=== PATIENT | male | born 1940 | race Caucasian/White ===

== ENCOUNTER 2016-10-04 17:05 | Inpatient (IN) | payer MEDICARE, OTHER ==
[2016-10-04 17:11] VITALS: BMI 23.3
--- NOTE | 2016-10-04 17:34 | PDOC ---
History of Present Illness - General Chief Complaint: Wound Infection Stated Complaint: LT FOOT PAIN, necrosis wound Time Seen by Provider: 10/04/16 17:33 - History of Present Illness Initial Comments: 10/04/16 18:08 The pt is a 76 year old [place] male with a PMH of severe dementia, Alzheimer's HTN, DM type 2, HDL who presents complaining of left heel pain and wound for several weeks. He accidentally scraped off a scab 3 weeks ago and since then the wound and pain has been getting worse. The pt f/u with a motion study technician who referred him today to the hospital. The patient is severely demented, ROS is limited. History was taken from his daughter. Past History - Past Medical History Allergies/Adverse Reactions: Allergies Allergy/AdvReac Type Severity Reaction Status Date / Time No Known Allergies Allergy Verified 10/04/16 17:11 Home Medications: Ambulatory Orders Amlodipine Besylate [Norvasc -] 5 mg PO DAILY 10/04/16 Aspirin [ASA -] 81 mg PO DAILY 10/04/16 Clopidogrel Bisulfate [Plavix -] 75 mg PO DAILY 10/04/16 Cyanocobalamin (Vitamin B-12) [Vitamin B-12] 1,000 mcg PO DAILY 10/04/16 Donepezil HCl [Aricept -] 10 mg PO DAILY 10/04/16 Memantine HCl [Namenda -] 5 mg PO BID 10/04/16 Quetiapine Fumarate [Seroquel -] 25 mg PO BID 10/04/16 Quetiapine Fumarate [Seroquel -] 50 mg PO HS 10/04/16 Trazodone HCl 50 mg PO HS 10/04/16 CVA: Yes Dementia: Yes Diabetes: Yes HTN: Yes Other medical history: alzheimers,dementia - Psycho/Social/Smoking Cessation Hx Suicidal Ideation: No Smoking History: Never smoked Information on smoking cessation initiated: No Hx Alcohol Use: No Drug/Substance Use Hx: No Substance Use Type: None Review of Systems - Review of Systems Comments:: 10/04/16 17:57 REVIEW OF SYSTEMS limited, the pt is demented MUSCULOSKELETAL: pain in left heel *Physical Exam - Vital Signs Last Vital Signs Temp Pulse Resp BP Pulse Ox 110 H 18 133/80 100 10/04/16 17:10 10/04/16 17:10 10/04/16 17:10 10/04/16 17:10 - Physical Exam Comments: 10/04/16 18:03 GENERAL: The patient is awake, alert, severely demented. HEAD: Normal with no signs of trauma. EYES: PERRL, sclera anicteric, conjunctiva clear. ENT: Ears normal, nares patent, oropharynx clear without exudates, moist mucous membranes. NECK: Trachea midline, full range of motion, supple. LUNGS: Breath sounds equal, clear to auscultation bilaterally, no wheezes, no crackles, no accessory muscle use. HEART: Irregular rate and rhythm, S1, S2, systolic murmur over left sternal border, no rub or gallop. ABDOMEN: Soft, nontender, nondistended, normoactive bowel sounds, no guarding, no rebound, no hepatosplenomegaly, no masses. EXTREMITIES: 2+ pulses, warm, well-perfused, no edema, left heel swelling, erythema and black necrosis/hematoma in the middle, no draining. NEUROLOGICAL: Normal speech, gait not observed, demented. PSYCH: Normal mood, normal affect. SKIN: Warm, dry, normal turgor, no rashes or lesions noted ED Treatment Course - LABORATORY CBC & Chemistry Diagram: 10/04/16 17:50 10/04/16 17:50 Medical Decision Making - Medical Decision Making 10/04/16 18:07 The pt is a 76 year old male who presents complaining of left heel pain. We ordered adult sepsis protocol. *DC/Admit/Observation/Transfer Diagnosis at time of Disposition: Infection of left foot
[2016-10-04] MEDS ORDERED: PIPERACILLIN/TAZOB 3.375 GM/50 ML PRE-DOCKED IV ONE (17:55)
[2016-10-04] MEDS ORDERED: VANCOMYCIN 1,000 MG in DEXTROSE 5%-WATER - 250 ML IVPB ONE (18:02)
[2016-10-04] MEDS ORDERED: PIPERACILLIN/TAZOB 3.375 GM 50 ML IVPB ONE (18:16)
[2016-10-04] MEDS ORDERED: VANCOMYCIN 1 GRAM (PRE-DOCKED) 250 ML IVPB ONE (18:16)
[2016-10-04 18:45] LABS: BASOPHIL 0.4 % (0-2.0); EOSINOPHIL 1.7 % (0-4.5); MCH 30.7 pg (25.7-33.7); MCHC 33.7 g/dl (32.0-35.9); MEAN CELL VOLUME 91.2 fl (80-96); MEAN PLT VOLUME 8.9 fl (7.5-11.1); NEUTROPHILS 79.4 % (42.8-82.8); PLATELET COUNT 304 K/MM3 (134-434); RDW 14.1 % (11.9-15.9); WHITE BLOOD COUNT 11.4 K/mm3 (4.0-10.0)
--- NOTE | 2016-10-04 18:45 | PDOC ---
Attending Attestation - Resident Resident Name: Loren Ruiz - ED Attending Attestation I have performed the following: I have examined & evaluated the patient, The case was reviewed & discussed with the resident, I agree w/resident's findings & plan, Exceptions are as noted - HPI HPI: 10/04/16 18:44 76-year-old male with history of severe dementia, diabetes, hyperlipidemia, chronic left heel wound wound sent in by Dr. Angela from wound care for worsening infected left heel. The patient has been having worsening left heel wound despite aggressive wound care. Upon evaluation by the collections manager, the patient sent to the ER for further intervention by vascular and antibiotics. Patient denies any fevers. According to the daughter, the patient typically is at baseline AAO 1 secondary to his dementia. He appears to be at mental baseline. - Physicial Exam PE: 10/04/16 18:44 GENERAL: Awake, alert, and fully oriented, in no acute distress. HEAD: No signs of trauma EYES: PERRLA, EOMI, sclera anicteric, conjunctiva clear ENT: Auricles normal inspection, hearing grossly normal, nares patent, oropharynx clear without exudates. NECK: Normal ROM, supple, no lymphadenopathy, JVD, or masses LUNGS: Breath sounds equal, clear to auscultation bilaterally. No wheezes, and no crackles HEART: Regular rate and rhythm, normal S1 and S2, no murmurs, rubs or gallops ABDOMEN: Soft, nontender, normoactive bowel sounds. No guarding, no rebound. No masses EXTREMITIES: Normal range of motion, no edema. No clubbing or cyanosis. No cords, erythema, or tenderness NEUROLOGICAL: Cranial nerves II through XII grossly intact. Normal speech, normal gait. AAOx1 (baseline). SKIN: 1+ DP pulse LLE. ~4x4 cm left chronic, ecchymotic wound, with no purulence , or erythema. TTP. - Medical Decision Making 10/04/16 18:45 Patient has worsening left heel wound. Adult sepsis protocol initiated. Pt was sent in for vascular evaluation. Empiric abx. Vanc and zosyn. Admission to hospital. Heart Score/ECG Review #1 ECG reviewed & interpreted by me at: 17:40 10/04/16 18:46 NSr 96, TWI I, aVL, V5-V6, no std/john, QTC 437 msec, occasional PACs
[2016-10-04 18:55] LABS: INR 1.1 (0.82-1.09); PROTHROMBIN TIME (PATIENT) 12.1 SEC (9.98-11.88)
[2016-10-04 18:57] LABS: ACTIVATED PTT 31.3 SECONDS (26.9-34.4)
[2016-10-04 19:05] LABS: ALBUMIN 3.7 g/dl (3.4-5.0); ALK PHOS 57 U/L (45-117); ANION GAP 13 (8-16); BILIRUBIN,TOTAL 0.3 mg/dL (0.2-1.0); CALCIUM 9.6 mg/dL (8.5-10.1); CO2 24 mmol/L (21-32); CREATININE 0.9 mg/dL (0.7-1.3); GLUCOSE,RANDOM 139 mg/dL (74-106); SGOT/AST 12 U/L (15-37); SGPT/ALT 16 U/L (12-78); TOT PROT 7.2 g/dl (6.4-8.2)
--- NOTE | 2016-10-04 19:40 | PDOC ---
*Physical Exam - Vital Signs Last Vital Signs Temp Pulse Resp BP Pulse Ox 110 H 18 133/80 100 10/04/16 17:10 10/04/16 17:10 10/04/16 17:10 10/04/16 17:10 ED Treatment Course - LABORATORY CBC & Chemistry Diagram: 10/04/16 17:50 10/04/16 17:50 - ADDITIONAL ORDERS Additional order review: Laboratory Results 10/04/16 10/04/16 10/04/16 17:50 17:50 17:50 INR 1.10 PTT (Actin FS) 31.3 Sodium 139 Potassium 4.6 Chloride 102 Carbon Dioxide 24 Anion Gap 13 BUN 11 Creatinine 0.9 Creat Clearance w eGFR > 60 Random Glucose 139 H Lactic Acid 2.680 H* Calcium 9.6 Total Bilirubin 0.3 AST 12 L ALT 16 Alkaline Phosphatase 57 Total Protein 7.2 Albumin 3.7 10/04/16 17:50 RBC 3.70 L MCV 91.2 MCHC 33.7 RDW 14.1 MPV 8.9 Neutrophils % 79.4 Lymphocytes % 11.2 Monocytes % 7.3 Eosinophils % 1.7 Basophils % 0.4 - RADIOLOGY Radiology Studies Ordered: Category Date Time Status CHEST X-RAY PORTABLE* [RAD] Stat Radiology 10/04/16 18:50 Taken - Medications Given in the ED: ED Medications Discontinued Medications Generic Name Dose Route Start Last Admin Trade Name Freq PRN Reason Stop Dose Admin Vancomycin HCl 1,000 mg/ 250 mls @ 250 mls/hr 10/04/16 18:02 10/04/16 18:48 Dextrose IVPB 10/04/16 19:01 250 mls/hr ONCE ONE Administration Protocol Piperacillin Sod/Tazobactam Sod 3.375 gm 10/04/16 17:55 10/04/16 18:28 Zosyn 3.375gm Ivpb (Pre-Docked) IV 10/04/16 17:56 3.375 gm ONCE ONE Administration Protocol Medical Decision Making - Medical Decision Making 10/04/16 19:39 CBC, BMP 10/04/16 17:50 10/04/16 17:50 CMP Sodium 139 mmol/L (136-145) 10/04/16 17:50 Potassium 4.6 mmol/L (3.5-5.1) 10/04/16 17:50 Chloride 102 mmol/L (98-107) 10/04/16 17:50 Carbon Dioxide 24 mmol/L (21-32) 10/04/16 17:50 Anion Gap 13 (8-16) 10/04/16 17:50 BUN 11 mg/dL (7-18) 10/04/16 17:50 Creatinine 0.9 mg/dL (0.7-1.3) 10/04/16 17:50 Creat Clearance w eGFR > 60 (>60) 10/04/16 17:50 Random Glucose 139 mg/dL (74-106) H 10/04/16 17:50 Lactic Acid 2.680 mmol/L (0.4-2.0) H* 10/04/16 17:50 Calcium 9.6 mg/dL (8.5-10.1) 10/04/16 17:50 Total Bilirubin 0.3 mg/dL (0.2-1.0) 10/04/16 17:50 AST 12 U/L (15-37) L 10/04/16 17:50 ALT 16 U/L (12-78) 10/04/16 17:50 Alkaline Phosphatase 57 U/L (45-117) 10/04/16 17:50 Total Protein 7.2 g/dl (6.4-8.2) 10/04/16 17:50 Albumin 3.7 g/dl (3.4-5.0) 10/04/16 17:[address] Lemos. She accepts patient for med/surg admission. She requests Dr. Devan Kothari *DC/Admit/Observation/Transfer Diagnosis at time of Disposition: Infection of left foot - Discharge Dispostion Condition at time of disposition: Stable Admit: Yes - Referrals Referrals: Ian Sears MD [Primary Care Provider] - - Patient Instructions - Post Discharge Activity
[2016-10-04 21:14] LABS: URINE APPEARANCE CLOUDY; URINE BILIRUBIN NEGATIVE (NEGATIVE); URINE BLOOD NEGATIVE (NEGATIVE); URINE COLOR AMBER; URINE GLUCOSE (UA) 2+ (NEGATIVE); URINE KETONE NEGATIVE (NEGATIVE); URINE LEUK ESTERASE NEGATIVE (NEGATIVE); URINE NITRITE NEGATIVE (NEGATIVE); URINE PROTEIN NEGATIVE (NEGATIVE); URINE UROBILINOGEN NEGATIVE E.U./dl (0.2-1.0)
[2016-10-04] MEDS ORDERED: SODIUM CHLORIDE 1,000 ML IV STA (22:16)
--- NOTE | 2016-10-05 12:25 | CONSULT ---
Consult - Alcohol/Substance Use Hx Alcohol Use: No - Smoking History Smoking history: Never smoked Home Medications - Allergies Allergies/Adverse Reactions: Allergies Allergy/AdvReac Type Severity Reaction Status Date / Time No Known Allergies Allergy Verified 10/04/16 17:11 - Home Medications Home Medications: Ambulatory Orders Amlodipine Besylate [Norvasc -] 5 mg PO DAILY 10/04/16 Aspirin [ASA -] 81 mg PO DAILY 10/04/16 Clopidogrel Bisulfate [Plavix -] 75 mg PO DAILY 10/04/16 Cyanocobalamin (Vitamin B-12) [Vitamin B-12] 1,000 mcg PO DAILY 10/04/16 Donepezil HCl [Aricept -] 10 mg PO DAILY 10/04/16 Memantine HCl [Namenda -] 5 mg PO BID 10/04/16 Quetiapine Fumarate [Seroquel -] 25 mg PO BID 10/04/16 Quetiapine Fumarate [Seroquel -] 50 mg PO HS 10/04/16 Trazodone HCl 50 mg PO HS 10/04/16 Physical Exam Vital Signs: Vital Signs Temperature 98.0 F 10/04/16 23:00 Pulse Rate 80 10/04/16 23:00 Respiratory Rate 20 10/04/16 23:50 Blood Pressure 133/80 10/04/16 23:00 O2 Sat by Pulse Oximetry (%) 98 10/04/16 23:50 Assessment/Plan Vascular surgery The pt is a 76 year old [place] male with a PMH of severe dementia, Alzheimer's HTN, DM type 2, HDL who presents complaining of left heel pain and wound for several weeks. He accidentally scraped off a scab 3 weeks ago and since then the wound and pain has been getting worse. The pt f/u with a private household worker who referred him today to the hospital. The patient is severely demented, ROS is limited. History was taken from his daughter. Past History - Past Medical History Allergies/Adverse Reactions: Allergies Allergy/AdvReac Type Severity Reaction Status Date / Time No Known Allergies Allergy Verified 10/04/16 17:11 Home Medications: Ambulatory Orders Amlodipine Besylate [Norvasc -] 5 mg PO DAILY 10/04/16 Aspirin [ASA -] 81 mg PO DAILY 10/04/16 Clopidogrel Bisulfate [Plavix -] 75 mg PO DAILY 10/04/16 Cyanocobalamin (Vitamin B-12) [Vitamin B-12] 1,000 mcg PO DAILY 10/04/16 Donepezil HCl [Aricept -] 10 mg PO DAILY 10/04/16 Memantine HCl [Namenda -] 5 mg PO BID 10/04/16 Quetiapine Fumarate [Seroquel -] 25 mg PO BID 10/04/16 Quetiapine Fumarate [Seroquel -] 50 mg PO HS 10/04/16 Trazodone HCl 50 mg PO HS 10/04/16 PE Head - NC/At Lung - CTA Heart - RRR abd - soft,nt,nd Ext - warm, left lower ext unstable ulcer. 4x4cm. No palpable DP and PT pulse. A/P Left heel ulcer for over a month. Started in [place]. CTA ordered to look at runoff. Santyl to left heel daily. Devan Kothari DO
--- NOTE | 2016-10-05 13:00 | CONSULT ---
Consult Consult Specialty:: infectious diseases Referred by:: Reason for Consultation:: left foot non healing ulcer - History of Present Illness History of Present Illness: 76-year-old male with history of severe dementia, diabetes, hyperlipidemia, chronic left heel wound wound sent in by Dr. Angela from wound care for worsening infected left heel. The patient has been having worsening left heel wound despite aggressive wound care. Upon evaluation by the donor recruitment manager, the patient sent to the ER for further intervention by vascular and antibiotics. Patient denies any fevers. According to the daughter, the patient has dementia though he is pretty awake and alert patient has been evaluated by vascular - History Source History Provided By: Family Member Limitations to Obtaining History: Dementia - Alcohol/Substance Use Hx Alcohol Use: No - Smoking History Smoking history: Never smoked Home Medications - Allergies Allergies/Adverse Reactions: Allergies Allergy/AdvReac Type Severity Reaction Status Date / Time No Known Allergies Allergy Verified 10/04/16 17:11 - Home Medications Home Medications: Ambulatory Orders Amlodipine Besylate [Norvasc -] 5 mg PO DAILY 10/04/16 Aspirin [ASA -] 81 mg PO DAILY 10/04/16 Clopidogrel Bisulfate [Plavix -] 75 mg PO DAILY 10/04/16 Cyanocobalamin (Vitamin B-12) [Vitamin B-12] 1,000 mcg PO DAILY 10/04/16 Donepezil HCl [Aricept -] 10 mg PO DAILY 10/04/16 Memantine HCl [Namenda -] 5 mg PO BID 10/04/16 Quetiapine Fumarate [Seroquel -] 25 mg PO BID 10/04/16 Quetiapine Fumarate [Seroquel -] 50 mg PO HS 10/04/16 Trazodone HCl 50 mg PO HS 10/04/16 Review of Systems - Review of Systems Constitutional: reports: No Symptoms Eyes: reports: No Symptoms HENT: reports: No Symptoms Neck: reports: No Symptoms Cardiovascular: reports: No Symptoms Respiratory: reports: No Symptoms Gastrointestinal: reports: No Symptoms Genitourinary: reports: No Symptoms Musculoskeletal: reports: Other Integumentary: reports: Change in Color, Erythema Neurological: reports: No Symptoms Endocrine: reports: No Symptoms Hematology/Lymphatic: reports: No Symptoms Psychiatric: reports: No Symptoms Physical Exam Vital Signs: Vital Signs Temperature 98.0 F 10/04/16 23:00 Pulse Rate 80 10/04/16 23:00 Respiratory Rate 20 10/04/16 23:50 Blood Pressure 133/80 10/04/16 23:00 O2 Sat by Pulse Oximetry (%) 98 10/04/16 23:50 Constitutional: Yes: Well Nourished, No Distress, Calm Eyes: Yes: Conjunctiva Clear HENT: Yes: Atraumatic Cardiovascular: Yes: Regular Rate and Rhythm Respiratory: Yes: Regular, CTA Bilaterally Gastrointestinal: Yes: Normal Bowel Sounds, Soft Musculoskeletal: Yes: Muscle Pain Extremities: Yes: Other (+) Integumentary: Yes: Erythema (on the heel), Other Wound/Incision: Yes: Open to air, Other Imaging - Results Chest X-ray: Report Reviewed, Image Reviewed Assessment/Plan patient with no palpable pulses non healing Left heel ulcer for over a month. DM dementia cellulitis of the heel plan aldo start on abx rest as per vascular cta runoff to see flow
[2016-10-05] MEDS: COLLAGENASE CLOSTRIDIUM HIST. 30 GRAMS TUBE TP SCH (14:28)
[2016-10-05] MEDS: AMPICILLIN NA/SULBACTAM NA 3 GM in SODIUM CHLORIDE 100 ML IVPB SCH ×2 (14:29→18:48)
[2016-10-05] MEDS: CLINDAMYCIN HCL 150 MG CAPSULE (FP) PO SCH ×2 (17:32→23:38)
--- NOTE | 2016-10-05 18:30 | EKG ---
Test Reason : Blood Pressure : / mmHG Vent. Rate : 096 BPM Atrial Rate : 096 BPM P-R Int : 188 ms QRS Dur : 082 ms QT Int : 346 ms P-R-T Axes : 052 008 150 degrees QTc Int : 437 ms SINUS RHYTHM WITH PREMATURE ATRIAL COMPLEXES ABNORMAL ECG NO PREVIOUS ECGS AVAILABLE Confirmed by LISA REYES, NONA ([id number]) on 10/05/2016 6:30:02 PM Referred By: Confirmed By:NONA GONZALEZ MD
[2016-10-05] MEDS ORDERED: PT OWN MED DRAWER 7, Y5N ONE (18:46)
[2016-10-05] MEDS: traZODone HCL 50 MG TABLET (FP) PO SCH (21:26)
[2016-10-05] MEDS: HEPARIN NA (PORCINE) 5,000 UNITS/ML 1ML VIAL SQ SCH (21:26)
[2016-10-05] MEDS: MEMANTINE HCL 5 MG TABLET (UD) PO SCH (21:26)
[2016-10-05] MEDS ORDERED: QUEtiapine FUMARATE 25 MG TABLET (FP) PO SCH (22:00)
--- NOTE | 2016-10-05 23:20 | HP ---
Admitting History and Physical - Admission Chief Complaint: Lt foot ulcer History of Present Illness: Pt is a 76 y/o male who is a poor historian and unable to give a history due to his dementia. He has a PMH significant for dementia, HTN, HLD, diabetes, CAD and chronic lt heel ulcer. Pt has been seeing his mangle tender for at least 3 weeks for his lt heel ulcer who now felt pt needed to be hospitalized for further management and treatment. Pt was found to be afebrile w/ a normal WBC. History Source: Medical Record Limitations to Obtaining History: Dementia - Past Medical History PUPPY WALKER: Yes: Alzheimer's, Dementia Cardiovascular: Yes: HTN, Hyperlipdemia Endocrine: Yes: Diabetes Mellitus - Past Surgical History Past Surgical History: Yes: None - Smoking History Smoking history: Never smoked - Alcohol/Substance Use Hx Alcohol Use: No Home Medications - Allergies Allergies/Adverse Reactions: Allergies Allergy/AdvReac Type Severity Reaction Status Date / Time No Known Allergies Allergy Verified 10/04/16 17:11 - Home Medications Home Medications: Ambulatory Orders Amlodipine Besylate [Norvasc -] 5 mg PO DAILY 10/04/16 Aspirin [ASA -] 81 mg PO DAILY 10/04/16 Clopidogrel Bisulfate [Plavix -] 75 mg PO DAILY 10/04/16 Cyanocobalamin (Vitamin B-12) [Vitamin B-12] 1,000 mcg PO DAILY 10/04/16 Donepezil HCl [Aricept -] 10 mg PO DAILY 10/04/16 Memantine HCl [Namenda -] 5 mg PO BID 10/04/16 Quetiapine Fumarate [Seroquel -] 25 mg PO BID 10/04/16 Quetiapine Fumarate [Seroquel -] 50 mg PO HS 10/04/16 Trazodone HCl 50 mg PO HS 10/04/16 Family Disease History - Family Disease History Family History: Unable to Obtain Review of Systems Unable to obtain ROS, reason: Unable to obtain due to Physical Examination Vital Signs: Vital Signs Temperature 97.7 F 10/05/16 18:00 Pulse Rate 94 H 10/05/16 21:16 Respiratory Rate 20 10/05/16 21:16 Blood Pressure 151/97 10/05/16 21:16 O2 Sat by Pulse Oximetry (%) 98 10/05/16 09:00 Constitutional: Yes: No Distress Eyes: Yes: WNL HENT: Yes: WNL Neck: Yes: Supple Cardiovascular: Yes: WNL, Regular Rate and Rhythm Respiratory: Yes: WNL, Regular, CTA Bilaterally Gastrointestinal: Yes: WNL, Normal Bowel Sounds, Soft Extremities: Yes: Other ((+) lt foot heel ulcer) Neurological: Yes: WNL, Other (disorientated) ...Motor Strength: WNL Problem List - Problems (1) Infection of left foot Assessment/Plan: Cont IV antibxs Vasc/ID /podiatry consults Wound care Code(s): L08.9 - LOCAL INFECTION OF THE SKIN AND SUBCUTANEOUS TISSUE, UNSP (2) Dementia Assessment/Plan: Cont namenda/aricept/seroquel Psych consult Code(s): F03.90 - UNSPECIFIED DEMENTIA WITHOUT BEHAVIORAL DISTURBANCE Qualifiers: Dementia type: unspecified type Dementia behavioral disturbance: without behavioral disturbance Qualified Code(s): F03.90 - Unspecified dementia without behavioral disturbance
[2016-10-05] MEDS ORDERED: ACETAMINOPHEN 325 MG TABLET (FP) PO PRN (23:33)
[2016-10-05] MEDS: QUEtiapine FUMARATE 25 MG TABLET (FP) PO SCH (23:39)
[2016-10-06] MEDS: AMPICILLIN NA/SULBACTAM NA 3 GM in SODIUM CHLORIDE 100 ML IVPB SCH ×3 (01:01→17:42)
[2016-10-06] MEDS ORDERED: ALPRAZolam 0.25 MG TABLET PO ONE (02:00)
[2016-10-06] MEDS ORDERED: QUEtiapine FUMARATE 25 MG TABLET (FP) PO ONE (03:30)
[2016-10-06] MEDS: CLINDAMYCIN HCL 150 MG CAPSULE (FP) PO SCH ×4 (06:52→23:37)
[2016-10-06 07:35] LABS: BASOPHIL 0.4 % (0-2.0); EOSINOPHIL 1.1 % (0-4.5); MCH 30.6 pg (25.7-33.7); MCHC 33.5 g/dl (32.0-35.9); MEAN CELL VOLUME 91.3 fl (80-96); MEAN PLT VOLUME 8.3 fl (7.5-11.1); PLATELET COUNT 304 K/MM3 (134-434); RDW 13.6 % (11.9-15.9); WHITE BLOOD COUNT 11.8 K/mm3 (4.0-10.0)
[2016-10-06 07:56] LABS: ALBUMIN 3.7 g/dl (3.4-5.0); ANION GAP 10 (8-16); BILIRUBIN,TOTAL 0.5 mg/dL (0.2-1.0); CALCIUM 9.2 mg/dL (8.5-10.1); CO2 28 mmol/L (21-32); GLUCOSE,RANDOM 104 mg/dL (74-106); SGOT/AST 9 U/L (15-37); SGPT/ALT 14 U/L (12-78); TOT PROT 7.4 g/dl (6.4-8.2)
[2016-10-06 07:57] LABS: ALK PHOS 59 U/L (45-117)
[2016-10-06] MEDS ORDERED: PT OWN MED DRAWER 7, Y5N ONE ×2 (10:12→17:36)
[2016-10-06] MEDS: CYANOCOBALAMIN 1,000 MCG TABLET (FP) PO SCH (10:14)
[2016-10-06] MEDS: MEMANTINE HCL 5 MG TABLET (UD) PO SCH ×2 (10:14→21:57)
[2016-10-06] MEDS: amLODIPine BESYLATE 5 MG TABLET (FP) PO SCH (10:14)
[2016-10-06] MEDS: QUEtiapine FUMARATE 25 MG TABLET (FP) PO SCH ×2 (10:14→21:57)
[2016-10-06] MEDS: DONEPEZIL HCL 10 MG TABLET (FP) PO SCH (10:14)
[2016-10-06] MEDS: CLOPIDOGREL BISULFATE 75 MG TABLET (FP) PO SCH (10:14)
[2016-10-06] MEDS: HEPARIN NA (PORCINE) 5,000 UNITS/ML 1ML VIAL SQ SCH ×2 (10:15→21:57)
[2016-10-06] MEDS: COLLAGENASE CLOSTRIDIUM HIST. 30 GRAMS TUBE TP SCH (10:15)
[2016-10-06] MEDS: ASPIRIN 81 MG CHEWABLE TABLETS PO SCH (10:15)
--- NOTE | 2016-10-06 13:21 | PN ---
Progress Note, Physician History of Present Illness: patient doing well no new issues patient received ct angio - Current Medication List Current Medications: Active Medications Acetaminophen (Tylenol -) 650 mg PO Q6H PRN PRN Reason: PAIN Amlodipine Besylate (Norvasc -) 5 mg PO DAILY [facility] Last Admin: 10/06/16 10:14 Dose: 5 mg Aspirin (Asa -) 81 mg PO DAILY [facility] Last Admin: 10/06/16 10:15 Dose: 81 mg Clindamycin HCl (Cleocin -) 300 mg PO Q6HPO [facility] Last Admin: 10/06/16 12:07 Dose: 300 mg Clopidogrel Bisulfate (Plavix -) 75 mg PO DAILY [facility] Last Admin: 10/06/16 10:14 Dose: 75 mg Collagenase (Santyl -) 1 applic TP DAILY [facility] Last Admin: 10/06/16 10:15 Dose: 1 applic Cyanocobalamin (Vitamin B12 -) 1,000 mcg PO DAILY [facility] Last Admin: 10/06/16 10:14 Dose: 1,000 mcg Donepezil HCl (Aricept -) 10 mg PO DAILY [facility] Last Admin: 10/06/16 10:14 Dose: 10 mg Heparin Sodium (Porcine) (Heparin -) 5,000 unit SQ BID [facility] Last Admin: 10/06/16 10:15 Dose: 5,000 unit Ampicillin Sodium/Sulbactam (Sodium 3 gm/ Sodium Chloride) 100 mls @ 200 mls/ hr IVPB Q8H-IV [facility] Last Admin: 10/06/16 10:15 Dose: 200 mls/hr Memantine (Namenda -) 5 mg PO BID [facility] Last Admin: 10/06/16 10:14 Dose: 5 mg Quetiapine Fumarate (Seroquel -) 50 mg PO HS [facility] Last Admin: 10/05/16 23:39 Dose: 25 mg Quetiapine Fumarate (Seroquel -) 25 mg PO DAILY [facility] Last Admin: 10/06/16 10:14 Dose: 25 mg Trazodone HCl (Desyrel -) 50 mg PO HS [facility] Last Admin: 10/05/16 21:26 Dose: 50 mg - Objective Vital Signs: Vital Signs Temperature 98.9 F 10/06/16 06:00 Pulse Rate 84 10/06/16 06:00 Respiratory Rate 20 10/06/16 06:00 Blood Pressure 141/71 10/06/16 06:00 O2 Sat by Pulse Oximetry (%) 98 10/05/16 21:00 Constitutional: Yes: No Distress, Calm Cardiovascular: Yes: Regular Rate and Rhythm Respiratory: Yes: Regular, CTA Bilaterally Gastrointestinal: Yes: Normal Bowel Sounds, Soft Musculoskeletal: Yes: Other Extremities: Yes: Other (non healing ulcer of the heel) Integumentary: Yes: Erythema (heel) Wound/Incision: Yes: Clean/Dry Neurological: Yes: Alert, Other (dementia) Psychiatric: Yes: Alert, Other Labs: CBC, BMP 10/06/16 06:15 10/06/16 06:15 INR, PTT INR 1.10 (0.82-1.09) 10/04/16 17:50 - ....Imaging Cat Scan: Image Reviewed Assessment/Plan patient with no palpable pulses non healing Left heel ulcer for over a month. DM dementia cellulitis of the heel plan continue current abx await for imaging result official vascular on case rest as per the team
--- NOTE | 2016-10-06 17:32 | PN ---
Mental Health Exam - Mental Status Exam Cognitive Function: Impaired Patient Appearance: Well Groomed Mood: Hopeful, Happy (smiling) Affect: Mood Congruent Patient Behavior: Talkative, Cooperative Speech Pattern: Rambling ("how much are you going to be paid"), Tangential ( stays off topic. ) Voice Loudness: Mildly Soft/Quiet Thought Process: Tangential, Disoriented Thought Disorder: Not Present Hallucinations: Denies Suicidal Ideation: Denies Homicidal Ideation: Denies Insight/Judgement: Impaired (unabe to make descisions, daughter is proxy. ) Sleep: Fair (last pm became anxious during night. ) Appetite: Weight loss (per daughter report) Muscle strength/Tone: Normal
--- NOTE | 2016-10-06 17:38 | PN ---
Progress Note, Physician Chief Complaint: "You are a nice man, how much to pay you" History of Present Illness: Patient is 76 yo honduran speaking male sitting up but poor posture slump in a chair, but able to ambuate with assistance. Daughter Quique was in attendance during interview. Recently moved here from after family stated he is becoming more confused, unable to care for self, has dementia for over 7 years that is deteriorating of late. His family are his caretakers. - Current Medication List Current Medications: Active Medications Acetaminophen (Tylenol -) 650 mg PO Q6H PRN PRN Reason: PAIN Amlodipine Besylate (Norvasc -) 5 mg PO DAILY [facility] Last Admin: 10/06/16 10:14 Dose: 5 mg Aspirin (Asa -) 81 mg PO DAILY [facility] Last Admin: 10/06/16 10:15 Dose: 81 mg Clindamycin HCl (Cleocin -) 300 mg PO Q6HPO [facility] Last Admin: 10/06/16 12:07 Dose: 300 mg Clopidogrel Bisulfate (Plavix -) 75 mg PO DAILY [facility] Last Admin: 10/06/16 10:14 Dose: 75 mg Collagenase (Santyl -) 1 applic TP DAILY [facility] Last Admin: 10/06/16 10:15 Dose: 1 applic Cyanocobalamin (Vitamin B12 -) 1,000 mcg PO DAILY [facility] Last Admin: 10/06/16 10:14 Dose: 1,000 mcg Donepezil HCl (Aricept -) 10 mg PO DAILY [facility] Last Admin: 10/06/16 10:14 Dose: 10 mg Heparin Sodium (Porcine) (Heparin -) 5,000 unit SQ BID [facility] Last Admin: 10/06/16 10:15 Dose: 5,000 unit Ampicillin Sodium/Sulbactam (Sodium 3 gm/ Sodium Chloride) 100 mls @ 200 mls/ hr IVPB Q8H-IV [facility] Last Admin: 10/06/16 10:15 Dose: 200 mls/hr Memantine (Namenda -) 5 mg PO BID [facility] Last Admin: 10/06/16 10:14 Dose: 5 mg Quetiapine Fumarate (Seroquel -) 50 mg PO HS [facility] Last Admin: 10/05/16 23:39 Dose: 25 mg Quetiapine Fumarate (Seroquel -) 25 mg PO DAILY [facility] Last Admin: 10/06/16 10:14 Dose: 25 mg Trazodone HCl (Desyrel -) 50 mg PO HS [facility] Last Admin: 10/05/16 21:26 Dose: 50 mg - Objective Vital Signs: Vital Signs Temperature 98.2 F 10/06/16 17:22 Pulse Rate 88 10/06/16 17:22 Respiratory Rate 20 10/06/16 17:22 Blood Pressure 128/82 10/06/16 17:22 O2 Sat by Pulse Oximetry (%) 97 10/06/16 09:00 Labs: CBC, BMP 10/06/16 06:15 10/06/16 06:15 INR, PTT INR 1.10 (0.82-1.09) 10/04/16 17:50 Problem List - Problems (1) Dementia Code(s): F03.90 - UNSPECIFIED DEMENTIA WITHOUT BEHAVIORAL DISTURBANCE Qualifiers: Dementia type: unspecified type Dementia behavioral disturbance: without behavioral disturbance Qualified Code(s): F03.90 - Unspecified dementia without behavioral disturbance Assessment/Plan Client is treated with Aricept 10mg po daily, namenda 5mg po bid. He also recieved seroquel 100mg a day, 50 mg at night and 25 mg po bid. As with other antipsychotics, seroquel used with caution in elderly, and its efficency and safety has not been evaluated in patients over 65. Recommend taper seroquel slowly from current doses, unclear if he has depression or bipolar history, observe for behaviour change. reduce to 25 mg in am prn and 25 po at night (if given for insomnia or agitation ). Daily dosew may account for somnolence noted today.
[2016-10-06] MEDS: traZODone HCL 50 MG TABLET (FP) PO SCH (21:57)
--- NOTE | 2016-10-06 22:46 | PN ---
Progress Note, Physician History of Present Illness: Pt w/ agitation - Current Medication List Current Medications: Active Medications Acetaminophen (Tylenol -) 650 mg PO Q6H PRN PRN Reason: PAIN Amlodipine Besylate (Norvasc -) 5 mg PO DAILY [facility] Last Admin: 10/06/16 10:14 Dose: 5 mg Aspirin (Asa -) 81 mg PO DAILY [facility] Last Admin: 10/06/16 10:15 Dose: 81 mg Clindamycin HCl (Cleocin -) 300 mg PO Q6HPO [facility] Last Admin: 10/06/16 17:42 Dose: 300 mg Clopidogrel Bisulfate (Plavix -) 75 mg PO DAILY [facility] Last Admin: 10/06/16 10:14 Dose: 75 mg Collagenase (Santyl -) 1 applic TP DAILY [facility] Last Admin: 10/06/16 10:15 Dose: 1 applic Cyanocobalamin (Vitamin B12 -) 1,000 mcg PO DAILY [facility] Last Admin: 10/06/16 10:14 Dose: 1,000 mcg Donepezil HCl (Aricept -) 10 mg PO DAILY [facility] Last Admin: 10/06/16 10:14 Dose: 10 mg Heparin Sodium (Porcine) (Heparin -) 5,000 unit SQ BID [facility] Last Admin: 10/06/16 21:57 Dose: 5,000 unit Ampicillin Sodium/Sulbactam (Sodium 3 gm/ Sodium Chloride) 100 mls @ 200 mls/ hr IVPB Q8H-IV [facility] Last Admin: 10/06/16 17:42 Dose: 200 mls/hr Memantine (Namenda -) 5 mg PO BID [facility] Last Admin: 10/06/16 21:57 Dose: 5 mg Quetiapine Fumarate (Seroquel -) 50 mg PO HS [facility] Last Admin: 10/06/16 21:57 Dose: 50 mg Quetiapine Fumarate (Seroquel -) 25 mg PO DAILY [facility] Last Admin: 10/06/16 10:14 Dose: 25 mg Trazodone HCl (Desyrel -) 50 mg PO HS [facility] Last Admin: 10/06/16 21:57 Dose: 50 mg - Objective Vital Signs: Vital Signs Temperature 98.2 F 10/06/16 18:36 Pulse Rate 88 10/06/16 18:36 Respiratory Rate 20 10/06/16 18:36 Blood Pressure 128/82 03/26/17 18:36 O2 Sat by Pulse Oximetry (%) 97 10/06/16 09:00 Constitutional: Yes: No Distress HENT: Yes: WNL Neck: Yes: WNL, Supple Cardiovascular: Yes: WNL, Regular Rate and Rhythm Respiratory: Yes: WNL, Regular, CTA Bilaterally Gastrointestinal: Yes: WNL, Normal Bowel Sounds, Soft Extremities: Yes: Other (Lt heel ulcer) Labs: CBC, BMP 10/06/16 06:15 10/06/16 06:15 INR, PTT INR 1.10 (0.82-1.09) 10/04/16 17:50 Problem List - Problems (1) Infection of left foot Assessment/Plan: Cont PO clinda Follow BC Vasc/ID /podiatry consults Wound care vascular studies pending Code(s): L08.9 - LOCAL INFECTION OF THE SKIN AND SUBCUTANEOUS TISSUE, UNSP (2) Dementia Assessment/Plan: Cont namenda/aricept/seroquel Psych consult Code(s): F03.90 - UNSPECIFIED DEMENTIA WITHOUT BEHAVIORAL DISTURBANCE Qualifiers: Dementia type: unspecified type Dementia behavioral disturbance: without behavioral disturbance Qualified Code(s): F03.90 - Unspecified dementia without behavioral disturbance (3) HTN (hypertension) Assessment/Plan: BP stable Cont asa/norvasc Code(s): I10 - ESSENTIAL (PRIMARY) HYPERTENSION (4) CAD (coronary artery disease) Assessment/Plan: Cont plavix Code(s): I25.10 - ATHSCL HEART DISEASE OF [place] CORONARY ARTERY W/O ANG PCTRS
[2016-10-07] MEDS: AMPICILLIN NA/SULBACTAM NA 3 GM in SODIUM CHLORIDE 100 ML IVPB SCH ×5 (03:00→20:25)
[2016-10-07] MEDS: CLINDAMYCIN HCL 150 MG CAPSULE (FP) PO SCH ×3 (06:35→18:37)
[2016-10-07 08:22] LABS: BASOPHIL 0.5 % (0-2.0); EOSINOPHIL 2.1 % (0-4.5); MCH 30.7 pg (25.7-33.7); MCHC 34.1 g/dl (32.0-35.9); MEAN CELL VOLUME 90.1 fl (80-96); MEAN PLT VOLUME 8.5 fl (7.5-11.1); NEUTROPHILS 68.5 % (42.8-82.8); PLATELET COUNT 276 K/MM3 (134-434); RDW 13.6 % (11.9-15.9); WHITE BLOOD COUNT 10.1 K/mm3 (4.0-10.0)
[2016-10-07 08:33] LABS: ALBUMIN 3.2 g/dl (3.4-5.0); ANION GAP 9 (8-16); CALCIUM 8.9 mg/dL (8.5-10.1); CO2 28 mmol/L (21-32); SGOT/AST 51 U/L (15-37); SGPT/ALT 18 U/L (12-78)
[2016-10-07 08:37] LABS: ALK PHOS 54 U/L (45-117); BILIRUBIN,TOTAL 0.5 mg/dL (0.2-1.0); CREATININE 0.8 mg/dL (0.7-1.3); GLUCOSE,RANDOM 130 mg/dL (74-106); TOT PROT 6.6 g/dl (6.4-8.2)
--- NOTE | 2016-10-07 09:13 | PN ---
Progress Note (short form) - Note Progress Note: Vascular Surgery CTA reviewed Left heel ulcer for over a month. Pt has significant tibial disease on CTA Will do angiogram james am. NPO past midnight Devan Kothari DO
[2016-10-07] MEDS ORDERED: PT OWN MED DRAWER 7, Y5N ONE ×2 (10:41→16:30)
[2016-10-07] MEDS: CLOPIDOGREL BISULFATE 75 MG TABLET (FP) PO SCH (10:42)
[2016-10-07] MEDS: DONEPEZIL HCL 10 MG TABLET (FP) PO SCH (10:42)
[2016-10-07] MEDS: CYANOCOBALAMIN 1,000 MCG TABLET (FP) PO SCH (10:42)
[2016-10-07] MEDS: amLODIPine BESYLATE 5 MG TABLET (FP) PO SCH (10:42)
[2016-10-07] MEDS: MEMANTINE HCL 5 MG TABLET (UD) PO SCH ×2 (10:42→22:13)
[2016-10-07] MEDS: QUEtiapine FUMARATE 25 MG TABLET (FP) PO SCH ×2 (10:43→22:13)
[2016-10-07] MEDS: ASPIRIN 81 MG CHEWABLE TABLETS PO SCH (10:43)
[2016-10-07] MEDS: HEPARIN NA (PORCINE) 5,000 UNITS/ML 1ML VIAL SQ SCH ×2 (11:00→22:14)
--- NOTE | 2016-10-07 13:23 | PN ---
Progress Note, Physician History of Present Illness: patient doing well no new issues patient for surgery tomorrow - Current Medication List Current Medications: Active Medications Acetaminophen (Tylenol -) 650 mg PO Q6H PRN PRN Reason: PAIN Amlodipine Besylate (Norvasc -) 5 mg PO DAILY [facility] Last Admin: 10/07/16 10:42 Dose: 5 mg Aspirin (Asa -) 81 mg PO DAILY [facility] Last Admin: 10/07/16 10:43 Dose: 81 mg Clindamycin HCl (Cleocin -) 300 mg PO Q6HPO [facility] Last Admin: 10/07/16 12:10 Dose: 300 mg Clopidogrel Bisulfate (Plavix -) 75 mg PO DAILY [facility] Last Admin: 10/07/16 10:42 Dose: 75 mg Collagenase (Santyl -) 1 applic TP DAILY [facility] Last Admin: 10/06/16 10:15 Dose: 1 applic Cyanocobalamin (Vitamin B12 -) 1,000 mcg PO DAILY [facility] Last Admin: 10/07/16 10:42 Dose: 1,000 mcg Donepezil HCl (Aricept -) 10 mg PO DAILY [facility] Last Admin: 10/07/16 10:42 Dose: 10 mg Heparin Sodium (Porcine) (Heparin -) 5,000 unit SQ BID [facility] Last Admin: 10/07/16 11:00 Dose: 5,000 unit Ampicillin Sodium/Sulbactam (Sodium 3 gm/ Sodium Chloride) 100 mls @ 200 mls/ hr IVPB Q8H-IV [facility] Last Admin: 10/07/16 10:43 Dose: 200 mls/hr Memantine (Namenda -) 5 mg PO BID [facility] Last Admin: 10/07/16 10:42 Dose: 5 mg Quetiapine Fumarate (Seroquel -) 50 mg PO HS [facility] Last Admin: 10/06/16 21:57 Dose: 50 mg Quetiapine Fumarate (Seroquel -) 25 mg PO DAILY [facility] Last Admin: 10/07/16 10:43 Dose: 25 mg Trazodone HCl (Desyrel -) 50 mg PO HS [facility] Last Admin: 10/06/16 21:57 Dose: 50 mg - Objective Vital Signs: Vital Signs Temperature 97.4 F L 10/07/16 10:36 Pulse Rate 91 H 10/07/16 10:36 Respiratory Rate 20 10/07/16 10:36 Blood Pressure 136/64 10/07/16 10:36 O2 Sat by Pulse Oximetry (%) 94 L 10/06/16 21:00 Constitutional: Yes: No Distress, Calm Cardiovascular: Yes: Regular Rate and Rhythm Respiratory: Yes: Regular, CTA Bilaterally Gastrointestinal: Yes: Normal Bowel Sounds, Soft Musculoskeletal: Yes: Other Extremities: Yes: Other Wound/Incision: Yes: Other (non healing ulcer of the leg) Neurological: Yes: Alert, Oriented Psychiatric: Yes: Alert Labs: CBC, BMP 10/07/16 06:30 10/07/16 06:30 INR, PTT INR 1.10 (0.82-1.09) 10/04/16 17:50 Assessment/Plan patient with no palpable pulses non healing Left heel ulcer for over a month. DM dementia cellulitis of the heel patient with significant vessel disease plan continue current abx patient for angioplasty tomorrow continue abx once angio is done will plan further
[2016-10-07] MEDS: COLLAGENASE CLOSTRIDIUM HIST. 30 GRAMS TUBE TP SCH (17:16)
[2016-10-07] MEDS: traZODone HCL 50 MG TABLET (FP) PO SCH (22:13)
--- NOTE | 2016-10-07 23:32 | PN ---
Progress Note, Physician - Current Medication List Current Medications: Active Medications Acetaminophen (Tylenol -) 650 mg PO Q6H PRN PRN Reason: PAIN Last Admin: 10/07/16 17:15 Dose: 650 mg Amlodipine Besylate (Norvasc -) 5 mg PO DAILY [facility] Last Admin: 10/07/16 10:42 Dose: 5 mg Aspirin (Asa -) 81 mg PO DAILY [facility] Last Admin: 10/07/16 10:43 Dose: 81 mg Clindamycin HCl (Cleocin -) 300 mg PO Q6HPO [facility] Last Admin: 10/07/16 18:37 Dose: 300 mg Clopidogrel Bisulfate (Plavix -) 75 mg PO DAILY [facility] Last Admin: 10/07/16 10:42 Dose: 75 mg Collagenase (Santyl -) 1 applic TP DAILY [facility] Last Admin: 10/07/16 17:16 Dose: 1 applic Cyanocobalamin (Vitamin B12 -) 1,000 mcg PO DAILY [facility] Last Admin: 10/07/16 10:42 Dose: 1,000 mcg Donepezil HCl (Aricept -) 10 mg PO DAILY [facility] Last Admin: 10/07/16 10:42 Dose: 10 mg Heparin Sodium (Porcine) (Heparin -) 5,000 unit SQ BID [facility] Last Admin: 10/07/16 22:14 Dose: 5,000 unit Ampicillin Sodium/Sulbactam (Sodium 3 gm/ Sodium Chloride) 100 mls @ 200 mls/ hr IVPB Q8H-IV [facility] Last Admin: 10/07/16 20:25 Dose: 200 mls/hr Memantine (Namenda -) 5 mg PO BID [facility] Last Admin: 10/07/16 22:13 Dose: 5 mg Quetiapine Fumarate (Seroquel -) 50 mg PO HS [facility] Last Admin: 10/07/16 22:13 Dose: 50 mg Quetiapine Fumarate (Seroquel -) 25 mg PO DAILY [facility] Last Admin: 10/07/16 10:43 Dose: 25 mg Trazodone HCl (Desyrel -) 50 mg PO HS [facility] Last Admin: 10/07/16 22:13 Dose: 50 mg - Objective Vital Signs: Vital Signs Temperature 98.7 F 10/07/16 18:05 Pulse Rate 86 10/07/16 18:05 Respiratory Rate 20 10/07/16 18:05 Blood Pressure 105/51 10/07/16 18:05 O2 Sat by Pulse Oximetry (%) 94 L 10/07/16 11:00 Labs: CBC, BMP 10/07/16 06:30 10/07/16 06:30 INR, PTT INR 1.10 (0.82-1.09) 10/04/16 17:50 Problem List - Problems (1) Infection of left foot Code(s): L08.9 - LOCAL INFECTION OF THE SKIN AND SUBCUTANEOUS TISSUE, UNSP (2) Dementia Code(s): F03.90 - UNSPECIFIED DEMENTIA WITHOUT BEHAVIORAL DISTURBANCE Qualifiers: Dementia type: unspecified type Dementia behavioral disturbance: without behavioral disturbance Qualified Code(s): F03.90 - Unspecified dementia without behavioral disturbance (3) HTN (hypertension) Code(s): I10 - ESSENTIAL (PRIMARY) HYPERTENSION (4) CAD (coronary artery disease) Code(s): I25.10 - ATHSCL HEART DISEASE OF [place] CORONARY ARTERY W/O ANG PCTRS
[2016-10-08] MEDS: CLINDAMYCIN HCL 150 MG CAPSULE (FP) PO SCH ×5 (00:06→23:57)
[2016-10-08] MEDS: AMPICILLIN NA/SULBACTAM NA 3 GM in SODIUM CHLORIDE 100 ML IVPB SCH ×5 (02:07→21:24)
[2016-10-08] MEDS ORDERED: HEPARIN NA (PORCINE) 5,000 UNITS/ML 1ML VIAL ONE (09:44)
[2016-10-08] MEDS ORDERED: LIDOCAINE HCL 1%, 10 MG/ML (20ML VIAL) ONE (09:44)
[2016-10-08] MEDS: ASPIRIN 81 MG CHEWABLE TABLETS PO SCH (10:04)
[2016-10-08] MEDS: DONEPEZIL HCL 10 MG TABLET (FP) PO SCH (10:04)
[2016-10-08] MEDS: amLODIPine BESYLATE 5 MG TABLET (FP) PO SCH (10:05)
[2016-10-08] MEDS: CLOPIDOGREL BISULFATE 75 MG TABLET (FP) PO SCH (10:05)
[2016-10-08] MEDS: HEPARIN NA (PORCINE) 5,000 UNITS/ML 1ML VIAL SQ SCH ×2 (10:05→22:25)
[2016-10-08] MEDS: COLLAGENASE CLOSTRIDIUM HIST. 30 GRAMS TUBE TP SCH (10:05)
[2016-10-08] MEDS: MEMANTINE HCL 5 MG TABLET (UD) PO SCH ×2 (10:05→22:24)
[2016-10-08] MEDS: QUEtiapine FUMARATE 25 MG TABLET (FP) PO SCH ×2 (10:06→22:24)
[2016-10-08] MEDS: CYANOCOBALAMIN 1,000 MCG TABLET (FP) PO SCH (10:06)
[2016-10-08] MEDS ORDERED: PROPOFOL 20 ML ONE (10:14)
[2016-10-08] MEDS ORDERED: MIDAZOLAM HCL 2 MG/2 ML SINGLE DOSE VIAL ONE ×3 (10:14→11:06)
[2016-10-08] MEDS ORDERED: ceFAZolin SODIUM 1 GM VIAL IVPB ONE (10:16)
[2016-10-08] MEDS ORDERED: LIDOCAINE HCL 1%, 10 MG/ML (20ML VIAL) IJ ONE (10:28)
[2016-10-08] MEDS ORDERED: ONDANSETRON 4 MG/2 ML VIAL IVPUSH PRN ×2 (12:09→12:42)
[2016-10-08] MEDS ORDERED: PROMETHAZINE HCL 25 MG/1 ML VIAL IVPUSH PRN ×2 (12:09→12:42)
[2016-10-08] MEDS ORDERED: oxyCODONE HCL 5 MG TABLET PO PRN ×2 (12:09→12:42)
--- NOTE | 2016-10-08 12:37 | OP ---
Operative Note - Note: Operative Date: 10/08/16 Pre-Operative Diagnosis: Left heel ulcer Operation: Aortogram, LLE angiogram, tibial artery atherectomy with angioplasty Findings: No PT runoff. DP occluded at origin. Reconstitutes in foot Peroneal artery with mutiple lesions. Post-Operative Diagnosis: Same as Pre-op Surgeon: Devan Kothari Anesthesia: Fractional Estimated Blood Loss (mls): 50 Operative Report Dictated: Yes
--- NOTE | 2016-10-08 12:42 | PN ---
Progress Note (short form) - Note Progress Note: Vascular Surgery S/P tibial artery atherectomy with angioplasty Pt only has one vessel runoff in to foot. Posterior tibial artery that feeds heel -- is closed. Pt now has more blood flow to foot, but heel is perfused via collateral circulation. Cont plavix Will watch heel for now to see if it gets better. Pt is a good candidate for HBO as outpt. If heel does not get better, can do angiogram via pedal access to try to open anterior tibial artery will do that as outpt. Please have pt follow up in wound care clinic so that I can follow heel, and set pt up for HBO as outpt. Please make pt appt prior to DC -- [phone] Devan Kothari DO
[2016-10-08] MEDS ORDERED: PT OWN MED DRAWER 7, Y5N ONE ×2 (13:25→17:02)
--- NOTE | 2016-10-08 13:33 | EKG ---
Test Reason : Blood Pressure : / mmHG Vent. Rate : 082 BPM Atrial Rate : 082 BPM P-R Int : 000 ms QRS Dur : 082 ms QT Int : 398 ms P-R-T Axes : 069 034 135 degrees QTc Int : 464 ms SINUS RHYTHM WITH PREMATURE ATRIAL COMPLEXES SEPTAL INFARCT , AGE UNDETERMINED ABNORMAL ECG WHEN COMPARED WITH ECG OF 04-OCT-2016 17:37, T WAVE VARIATION Confirmed by RAJIV CAMPBELL MD ([id number]) on 10/08/2016 1:33:06 PM Referred By: DR. BAINS Confirmed By:RAJIV CAMPBELL MD
--- NOTE | 2016-10-08 15:04 | PN ---
Progress Note, Physician History of Present Illness: patient doing well post op no issues - Current Medication List Current Medications: Active Medications Acetaminophen (Tylenol -) 650 mg PO Q6H PRN PRN Reason: PAIN Amlodipine Besylate (Norvasc -) 5 mg PO DAILY [facility] Aspirin (Asa -) 81 mg PO DAILY [facility] Clindamycin HCl (Cleocin -) 300 mg PO Q6HPO [facility] Clopidogrel Bisulfate (Plavix -) 75 mg PO DAILY [facility] Collagenase (Santyl -) 1 applic TP DAILY [facility] Cyanocobalamin (Vitamin B12 -) 1,000 mcg PO DAILY [facility] Donepezil HCl (Aricept -) 10 mg PO DAILY [facility] Fentanyl (Sublimaze Injection -) 25 mcg IVPUSH [id number] PRN PRN Reason: PAIN Stop: 10/11/16 12:10 Heparin Sodium (Porcine) (Heparin -) 5,000 unit SQ BID [facility] Ampicillin Sodium/Sulbactam (Sodium 3 gm/ Sodium Chloride) 100 mls @ 200 mls/ hr IVPB Q8H-IV [facility] Last Admin: 10/08/16 13:30 Dose: 200 mls/hr Memantine (Namenda -) 5 mg PO BID [facility] Ondansetron HCl (Zofran Injection) 4 mg IVPUSH Q6H PRN PRN Reason: NAUSEA AND/OR VOMITING Stop: 10/08/16 18:10 Oxycodone HCl (Roxicodone -) 5 mg PO Q4H PRN PRN Reason: MILD PAIN Stop: 10/09/16 12:08 Promethazine HCl (Phenergan Injection -) 12.5 mg IVPUSH Q6H PRN PRN Reason: NAUSEA Stop: 10/08/16 18:10 Quetiapine Fumarate (Seroquel -) 50 mg PO HS [facility] Quetiapine Fumarate (Seroquel -) 25 mg PO DAILY [facility] Trazodone HCl (Desyrel -) 50 mg PO [facility] - Objective Vital Signs: Vital Signs Temperature 97.6 F 10/08/16 14:29 Pulse Rate 79 10/08/16 14:29 Respiratory Rate 20 10/08/16 14:29 Blood Pressure 124/61 10/08/16 14:29 O2 Sat by Pulse Oximetry (%) 92 L 10/08/16 13:15 Constitutional: Yes: No Distress, Calm Cardiovascular: Yes: Regular Rate and Rhythm Respiratory: Yes: Regular, CTA Bilaterally Gastrointestinal: Yes: Normal Bowel Sounds, Soft Musculoskeletal: Yes: WNL Extremities: Yes: Other Wound/Incision: Yes: Dressing Dry and Intact Neurological: Yes: Alert, Oriented Psychiatric: Yes: Alert, Oriented Labs: CBC, BMP 10/07/16 06:30 10/07/16 06:30 INR, PTT INR 1.10 (0.82-1.09) 10/04/16 17:50 Assessment/Plan patient with no palpable pulses non healing Left heel ulcer for over a month. DM dementia cellulitis of the heel patient with significant vessel disease plan continue current abx will deescalate abx probably tomorrow to oral
--- NOTE | 2016-10-08 20:28 | PN ---
Progress Note, Physician - Current Medication List Current Medications: Active Medications Acetaminophen (Tylenol -) 650 mg PO Q6H PRN PRN Reason: PAIN Amlodipine Besylate (Norvasc -) 5 mg PO DAILY [facility] Aspirin (Asa -) 81 mg PO DAILY [facility] Clindamycin HCl (Cleocin -) 300 mg PO Q6HPO [facility] Last Admin: 10/08/16 18:04 Dose: 300 mg Clopidogrel Bisulfate (Plavix -) 75 mg PO DAILY [facility] Collagenase (Santyl -) 1 applic TP DAILY [facility] Cyanocobalamin (Vitamin B12 -) 1,000 mcg PO DAILY [facility] Donepezil HCl (Aricept -) 10 mg PO DAILY [facility] Fentanyl (Sublimaze Injection -) 25 mcg IVPUSH [id number] PRN PRN Reason: PAIN Stop: 10/11/16 12:10 Heparin Sodium (Porcine) (Heparin -) 5,000 unit SQ BID [facility] Ampicillin Sodium/Sulbactam (Sodium 3 gm/ Sodium Chloride) 100 mls @ 200 mls/ hr IVPB Q8H [facility] Memantine (Namenda -) 5 mg PO BID [facility] Oxycodone HCl (Roxicodone -) 5 mg PO Q4H PRN PRN Reason: MILD PAIN Stop: 10/09/16 12:08 Quetiapine Fumarate (Seroquel -) 50 mg PO HS [facility] Quetiapine Fumarate (Seroquel -) 25 mg PO DAILY [facility] Trazodone HCl (Desyrel -) 50 mg PO HS [facility] - Objective Vital Signs: Vital Signs Temperature 98.0 F 10/08/16 18:05 Pulse Rate 84 10/08/16 18:05 Respiratory Rate 20 10/08/16 18:05 Blood Pressure 149/76 10/08/16 18:05 O2 Sat by Pulse Oximetry (%) 92 L 10/08/16 13:30 Labs: CBC, BMP 10/07/16 06:30 10/07/16 06:30 INR, PTT INR 1.10 (0.82-1.09) 10/04/16 17:50 Problem List - Problems (1) Infection of left foot Code(s): L08.9 - LOCAL INFECTION OF THE SKIN AND SUBCUTANEOUS TISSUE, UNSP (2) Dementia Code(s): F03.90 - UNSPECIFIED DEMENTIA WITHOUT BEHAVIORAL DISTURBANCE Qualifiers: Dementia type: unspecified type Dementia behavioral disturbance: without behavioral disturbance Qualified Code(s): F03.90 - Unspecified dementia without behavioral disturbance (3) HTN (hypertension) Code(s): I10 - ESSENTIAL (PRIMARY) HYPERTENSION (4) CAD (coronary artery disease) Code(s): I25.10 - ATHSCL HEART DISEASE OF [place] CORONARY ARTERY W/O ANG PCTRS
[2016-10-08] MEDS: traZODone HCL 50 MG TABLET (FP) PO SCH (22:24)
[2016-10-09] MEDS: CLINDAMYCIN HCL 150 MG CAPSULE (FP) PO SCH ×3 (05:48→17:29)
[2016-10-09] MEDS: AMPICILLIN NA/SULBACTAM NA 3 GM in SODIUM CHLORIDE 100 ML IVPB SCH ×3 (05:49→22:41)
[2016-10-09] MEDS ORDERED: PT OWN MED DRAWER 7, Y5N ONE ×2 (08:57→13:38)
[2016-10-09] MEDS: CLOPIDOGREL BISULFATE 75 MG TABLET (FP) PO SCH (09:10)
[2016-10-09] MEDS: ASPIRIN 81 MG CHEWABLE TABLETS PO SCH (09:10)
[2016-10-09] MEDS: DONEPEZIL HCL 10 MG TABLET (FP) PO SCH (09:11)
[2016-10-09] MEDS: amLODIPine BESYLATE 5 MG TABLET (FP) PO SCH (09:11)
[2016-10-09] MEDS: MEMANTINE HCL 5 MG TABLET (UD) PO SCH ×2 (09:11→22:42)
[2016-10-09] MEDS: CYANOCOBALAMIN 1,000 MCG TABLET (FP) PO SCH (09:11)
[2016-10-09] MEDS: QUEtiapine FUMARATE 25 MG TABLET (FP) PO SCH ×2 (09:12→22:44)
[2016-10-09] MEDS: HEPARIN NA (PORCINE) 5,000 UNITS/ML 1ML VIAL SQ SCH ×2 (09:12→22:42)
[2016-10-09] MEDS: COLLAGENASE CLOSTRIDIUM HIST. 30 GRAMS TUBE TP SCH (09:12)
[2016-10-09] MEDS: ACETAMINOPHEN 325 MG TABLET (FP) PO PRN (13:59)
--- NOTE | 2016-10-09 14:18 | PN ---
Progress Note (short form) - Note Progress Note: ANESTHESIOLOGY POST-OP CHECK 76M s/p angiogram/angioplasty under sedation POD #1. Pt confuse, has dementia. No acute events. No acute complaints. Pain tolerable, tolerating PO, no N/V. Vital Signs Temperature 98.3 F 10/09/16 14:12 Pulse Rate 89 10/09/16 14:12 Respiratory Rate 20 10/09/16 14:12 Blood Pressure 134/59 10/09/16 14:12 O2 Sat by Pulse Oximetry (%) 94 L 10/08/16 22:00 Active Medications Acetaminophen (Tylenol -) 650 mg PO Q6H PRN PRN Reason: PAIN Last Admin: 10/09/16 13:59 Dose: 650 mg Amlodipine Besylate (Norvasc -) 5 mg PO DAILY [facility] Last Admin: 10/09/16 09:11 Dose: 5 mg Aspirin (Asa -) 81 mg PO DAILY [facility] Last Admin: 10/09/16 09:10 Dose: 81 mg Clindamycin HCl (Cleocin -) 300 mg PO Q6HPO [facility] Last Admin: 10/09/16 11:57 Dose: 300 mg Clopidogrel Bisulfate (Plavix -) 75 mg PO DAILY [facility] Last Admin: 10/09/16 09:10 Dose: 75 mg Collagenase (Santyl -) 1 applic TP DAILY [facility] Last Admin: 10/09/16 09:12 Dose: 1 applic Cyanocobalamin (Vitamin B12 -) 1,000 mcg PO DAILY [facility] Last Admin: 10/09/16 09:11 Dose: 1,000 mcg Donepezil HCl (Aricept -) 10 mg PO DAILY [facility] Last Admin: 10/09/16 09:11 Dose: 10 mg Fentanyl (Sublimaze Injection -) 25 mcg IVPUSH [id number] PRN PRN Reason: PAIN Stop: 10/11/16 12:10 Heparin Sodium (Porcine) (Heparin -) 5,000 unit SQ BID [facility] Last Admin: 10/09/16 09:12 Dose: 5,000 unit Ampicillin Sodium/Sulbactam (Sodium 3 gm/ Sodium Chloride) 100 mls @ 200 mls/ hr IVPB Q8H [facility] Last Admin: 10/09/16 13:59 Dose: 200 mls/hr Memantine (Namenda -) 5 mg PO BID [facility] Last Admin: 10/09/16 09:11 Dose: 5 mg Quetiapine Fumarate (Seroquel -) 50 mg PO [facility] Last Admin: 10/08/16 22:24 Dose: 50 mg Quetiapine Fumarate (Seroquel -) 25 mg PO DAILY [facility] Last Admin: 10/09/16 09:12 Dose: 25 mg Trazodone HCl (Desyrel -) 50 mg PO [facility] Last Admin: 10/08/16 22:24 Dose: 50 mg Gen: Awake No apparent anesthesia complications, pain controlled. Continue management as per primary team.
--- NOTE | 2016-10-09 15:02 | PN ---
Progress Note (short form) - Note Progress Note: Vascular Surgery Pt seen and examined. Doing well Right heel is stable Cont santyl to wound daily. Cont antibiotics. will continue to follow. If foot heel gets worse, will need pedal access angiogram to open tibial artery Devan Kothari DO
--- NOTE | 2016-10-09 16:12 | PN ---
Progress Note, Physician History of Present Illness: patient stable leg stable - Current Medication List Current Medications: Active Medications Acetaminophen (Tylenol -) 650 mg PO Q6H PRN PRN Reason: PAIN Last Admin: 10/09/16 13:59 Dose: 650 mg Amlodipine Besylate (Norvasc -) 5 mg PO DAILY [facility] Last Admin: 10/09/16 09:11 Dose: 5 mg Aspirin (Asa -) 81 mg PO DAILY [facility] Last Admin: 10/09/16 09:10 Dose: 81 mg Clindamycin HCl (Cleocin -) 300 mg PO Q6HPO [facility] Last Admin: 10/09/16 11:57 Dose: 300 mg Clopidogrel Bisulfate (Plavix -) 75 mg PO DAILY [facility] Last Admin: 10/09/16 09:10 Dose: 75 mg Collagenase (Santyl -) 1 applic TP DAILY [facility] Last Admin: 10/09/16 09:12 Dose: 1 applic Cyanocobalamin (Vitamin B12 -) 1,000 mcg PO DAILY [facility] Last Admin: 10/09/16 09:11 Dose: 1,000 mcg Donepezil HCl (Aricept -) 10 mg PO DAILY [facility] Last Admin: 10/09/16 09:11 Dose: 10 mg Fentanyl (Sublimaze Injection -) 25 mcg IVPUSH [id number] PRN PRN Reason: PAIN Stop: 10/11/16 12:10 Heparin Sodium (Porcine) (Heparin -) 5,000 unit SQ BID [facility] Last Admin: 10/09/16 09:12 Dose: 5,000 unit Ampicillin Sodium/Sulbactam (Sodium 3 gm/ Sodium Chloride) 100 mls @ 200 mls/ hr IVPB Q8H [facility] Last Admin: 10/09/16 13:59 Dose: 200 mls/hr Memantine (Namenda -) 5 mg PO BID [facility] Last Admin: 10/09/16 09:11 Dose: 5 mg Quetiapine Fumarate (Seroquel -) 50 mg PO HS [facility] Last Admin: 10/08/16 22:24 Dose: 50 mg Quetiapine Fumarate (Seroquel -) 25 mg PO DAILY [facility] Last Admin: 10/09/16 09:12 Dose: 25 mg Trazodone HCl (Desyrel -) 50 mg PO HS [facility] Last Admin: 10/08/16 22:24 Dose: 50 mg - Objective Vital Signs: Vital Signs Temperature 98.3 F 10/09/16 14:12 Pulse Rate 89 10/09/16 14:12 Respiratory Rate 20 10/09/16 14:12 Blood Pressure 134/59 10/09/16 14:12 O2 Sat by Pulse Oximetry (%) 94 L 10/08/16 22:00 Constitutional: Yes: No Distress, Calm Cardiovascular: Yes: Regular Rate and Rhythm Respiratory: Yes: Regular, CTA Bilaterally Gastrointestinal: Yes: Normal Bowel Sounds, Soft Musculoskeletal: Yes: Other Extremities: Yes: Other Wound/Incision: Yes: Dressing Dry and Intact Neurological: Yes: Alert, Oriented Psychiatric: Yes: Alert Labs: CBC, BMP 10/07/16 06:30 10/07/16 06:30 INR, PTT INR 1.10 (0.82-1.09) 10/04/16 17:50 Assessment/Plan patient with no palpable pulses non healing Left heel ulcer for over a month. DM dementia cellulitis of the heel patient with significant vessel disease plan continue current abx will change to oral tomorrow await final vascular input rest ct current mgmt
[2016-10-09] MEDS: traZODone HCL 50 MG TABLET (FP) PO SCH (22:42)
--- NOTE | 2016-10-09 22:49 | PN ---
Progress Note, Physician - Current Medication List Current Medications: Active Medications Acetaminophen (Tylenol -) 650 mg PO Q6H PRN PRN Reason: PAIN Last Admin: 10/09/16 13:59 Dose: 650 mg Amlodipine Besylate (Norvasc -) 5 mg PO DAILY [facility] Last Admin: 10/09/16 09:11 Dose: 5 mg Aspirin (Asa -) 81 mg PO DAILY [facility] Last Admin: 10/09/16 09:10 Dose: 81 mg Clindamycin HCl (Cleocin -) 300 mg PO Q6HPO [facility] Last Admin: 10/09/16 17:29 Dose: 300 mg Clopidogrel Bisulfate (Plavix -) 75 mg PO DAILY [facility] Last Admin: 10/09/16 09:10 Dose: 75 mg Collagenase (Santyl -) 1 applic TP DAILY [facility] Last Admin: 10/09/16 09:12 Dose: 1 applic Cyanocobalamin (Vitamin B12 -) 1,000 mcg PO DAILY [facility] Last Admin: 10/09/16 09:11 Dose: 1,000 mcg Donepezil HCl (Aricept -) 10 mg PO DAILY [facility] Last Admin: 10/09/16 09:11 Dose: 10 mg Fentanyl (Sublimaze Injection -) 25 mcg IVPUSH [id number] PRN PRN Reason: PAIN Stop: 10/11/16 12:10 Heparin Sodium (Porcine) (Heparin -) 5,000 unit SQ BID [facility] Last Admin: 10/09/16 22:42 Dose: 5,000 unit Ampicillin Sodium/Sulbactam (Sodium 3 gm/ Sodium Chloride) 100 mls @ 200 mls/ hr IVPB Q8H [facility] Last Admin: 10/09/16 22:41 Dose: 200 mls/hr Memantine (Namenda -) 5 mg PO BID [facility] Last Admin: 10/09/16 22:42 Dose: 5 mg Quetiapine Fumarate (Seroquel -) 50 mg PO HS [facility] Last Admin: 10/09/16 22:44 Dose: 50 mg Quetiapine Fumarate (Seroquel -) 25 mg PO DAILY [facility] Last Admin: 10/09/16 09:12 Dose: 25 mg Trazodone HCl (Desyrel -) 50 mg PO HS [facility] Last Admin: 10/09/16 22:42 Dose: 50 mg - Objective Vital Signs: Vital Signs Temperature 98.8 F 10/09/16 18:00 Pulse Rate 83 10/09/16 18:00 Respiratory Rate 20 10/09/16 18:00 Blood Pressure 126/60 10/09/16 18:00 O2 Sat by Pulse Oximetry (%) 95 10/09/16 09:00 Labs: CBC, BMP 10/07/16 06:30 10/07/16 06:30 INR, PTT INR 1.10 (0.82-1.09) 10/04/16 17:50 Problem List - Problems (1) Infection of left foot Code(s): L08.9 - LOCAL INFECTION OF THE SKIN AND SUBCUTANEOUS TISSUE, UNSP (2) Dementia Code(s): F03.90 - UNSPECIFIED DEMENTIA WITHOUT BEHAVIORAL DISTURBANCE Qualifiers: Dementia type: unspecified type Dementia behavioral disturbance: without behavioral disturbance Qualified Code(s): F03.90 - Unspecified dementia without behavioral disturbance (3) HTN (hypertension) Code(s): I10 - ESSENTIAL (PRIMARY) HYPERTENSION (4) CAD (coronary artery disease) Code(s): I25.10 - ATHSCL HEART DISEASE OF [place] CORONARY ARTERY W/O ANG PCTRS
[2016-10-10] MEDS: ACETAMINOPHEN 325 MG TABLET (FP) PO PRN
[2016-10-10] MEDS: CLINDAMYCIN HCL 150 MG CAPSULE (FP) PO SCH ×4 (01:18→17:40)
[2016-10-10] MEDS: AMPICILLIN NA/SULBACTAM NA 3 GM in SODIUM CHLORIDE 100 ML IVPB SCH ×2 (05:38→13:35)
[2016-10-10] MEDS ORDERED: ACETAMINOPHEN 325 MG TABLET (FP) PO PRN (09:23)
[2016-10-10] MEDS: QUEtiapine FUMARATE 25 MG TABLET (FP) PO SCH ×2 (09:30→22:05)
[2016-10-10] MEDS: CYANOCOBALAMIN 1,000 MCG TABLET (FP) PO SCH (09:30)
[2016-10-10] MEDS: CLOPIDOGREL BISULFATE 75 MG TABLET (FP) PO SCH (09:30)
[2016-10-10] MEDS: HEPARIN NA (PORCINE) 5,000 UNITS/ML 1ML VIAL SQ SCH ×2 (09:30→22:06)
[2016-10-10] MEDS: oxyCODONE HCL 5 MG TABLET PO PRN (09:31)
[2016-10-10] MEDS: amLODIPine BESYLATE 5 MG TABLET (FP) PO SCH (09:33)
[2016-10-10] MEDS: DONEPEZIL HCL 10 MG TABLET (FP) PO SCH (09:33)
[2016-10-10] MEDS: MEMANTINE HCL 5 MG TABLET (UD) PO SCH ×2 (09:33→22:05)
[2016-10-10] MEDS: ASPIRIN 81 MG CHEWABLE TABLETS PO SCH (09:33)
[2016-10-10] MEDS: COLLAGENASE CLOSTRIDIUM HIST. 30 GRAMS TUBE TP SCH (11:07)
[2016-10-10] MEDS ORDERED: PT OWN MED DRAWER 7, Y5N ONE ×2 (12:41→18:44)
--- NOTE | 2016-10-10 14:14 | OP ---
DATE OF OPERATION: 10/08/2016 PREOPERATIVE DIAGNOSIS: Left heel ulcer. POSTOPERATIVE DIAGNOSIS: Left heel ulcer. PROCEDURES: Aortogram. Left lower extremity angiogram. Tibial artery atherectomy with angioplasty. SURGEON: Devan Newberry DO ANESTHESIA: Fractional. BLOOD LOSS: 30 mL. The patient is a 76-year-old male who has had a left heel ulcer for over 1 month in the [facility] [place]. He now comes over to the and was admitted to the hospital. Upon examination, the patient does not have any palpable pulses, and it was decided that he would need an angiogram to look at his run-off. The patient's family was consented for the procedure, understanding all risks, benefits, and alternatives. The patient was then brought into the operating room and laid on the operating table in a supine manner. The area of the left and right groin was prepped and draped in a sterile surgical manner. We then went ahead and injected 10 mL of over the right common femoral artery. We then took our Micropuncture needle and punctured the right common femoral artery. Micropuncture wire was inserted and a traditional 5-[place] sheath was inserted. We then placed a 0.035 floppy guide wire up into the aorta followed by an Omni Flush catheter. We then shot an aortogram via hand injection showing that the aorta and the iliac arteries were without any disease. We then placed a 0.035 floppy guide wire up and over into the left common femoral artery and our Omni Flush catheter followed. We then shot an angiogram of the left lower extremity showing that the common femoral artery, the profunda, and the SFA were patent. The popliteal artery was patent, but the patient had severe disease in his tibial arteries. The posterior tibial artery was nonexistent and was closed. The anterior tibial artery was open at its origin and then closed and reconstitutes in the foot. The peroneal artery is the only artery that goes down into the foot. The peroneal artery has multiple lesions of 90% to 95% and would need intervention. At this point, we placed a 0.035 stiff guide wire into the SFA. Took out our Omni Flush catheter and placed a 6 x 45 crossover sheath. Five-thousand units of IV heparin were administered to the patient. We then brought our Quick-Cross catheter down to the below-knee popliteal artery and exchanged for a 0.014 wire. We placed the 0.014 wire into the distal peroneal artery. We then went ahead and changed over to a ViperWire. We then used a InEdge orbital atherectomy device and performed atherectomy of the entire peroneal artery from its origin down to above the ankle. We then used a Bard 2 x 220 balloon and performed angioplasty of the peroneal artery. We then went ahead and used a Bard 2.5 x 8 balloon and performed angioplasty of the peroneal artery. Once completed, we shot an angiogram showing that the peroneal artery was now completely patent all the way down to the ankle and there was good, brisk flow. At this point, we brought our sheath up and over and StarClose device was successfully deployed in the right common femoral artery. Pressure was held for 5 minutes. There was no bleeding. Areas were then dried and Dermabond was placed. The patient tolerated the procedure with no complications. The patient was transferred to PACU in stable condition. DEVAN NEWBERRY DO [id number]
--- NOTE | 2016-10-10 15:42 | PN ---
Progress Note, Physician History of Present Illness: patient stable leg stable dsg intact - Current Medication List Current Medications: Active Medications Acetaminophen (Tylenol -) 650 mg PO Q6H PRN PRN Reason: PAIN Last Admin: 10/10/16 00:00 Dose: 650 mg Acetaminophen (Tylenol -) 325 mg PO Q6H PRN PRN Reason: PAIN Last Admin: 10/10/16 09:32 Dose: 325 mg Amlodipine Besylate (Norvasc -) 5 mg PO DAILY [facility] Last Admin: 10/10/16 09:33 Dose: 5 mg Aspirin (Asa -) 81 mg PO DAILY [facility] Last Admin: 10/10/16 09:33 Dose: 81 mg Clindamycin HCl (Cleocin -) 300 mg PO Q6HPO [facility] Last Admin: 10/10/16 11:24 Dose: 300 mg Clopidogrel Bisulfate (Plavix -) 75 mg PO DAILY [facility] Last Admin: 10/10/16 09:30 Dose: 75 mg Collagenase (Santyl -) 1 applic TP DAILY [facility] Last Admin: 10/10/16 11:07 Dose: 1 applic Cyanocobalamin (Vitamin B12 -) 1,000 mcg PO DAILY [facility] Last Admin: 10/10/16 09:30 Dose: 1,000 mcg Donepezil HCl (Aricept -) 10 mg PO DAILY [facility] Last Admin: 10/10/16 09:33 Dose: 10 mg Heparin Sodium (Porcine) (Heparin -) 5,000 unit SQ BID [facility] Last Admin: 10/10/16 09:30 Dose: 5,000 unit Ampicillin Sodium/Sulbactam (Sodium 3 gm/ Sodium Chloride) 100 mls @ 200 mls/ hr IVPB Q8H [facility] Last Admin: 10/10/16 13:35 Dose: 200 mls/hr Memantine (Namenda -) 5 mg PO BID [facility] Last Admin: 10/10/16 09:33 Dose: 5 mg Oxycodone HCl (Roxicodone -) 5 mg PO Q6H PRN PRN Reason: PAIN Last Admin: 10/10/16 09:31 Dose: 5 mg Quetiapine Fumarate (Seroquel -) 50 mg PO HS [facility] Last Admin: 10/09/16 22:44 Dose: 50 mg Quetiapine Fumarate (Seroquel -) 25 mg PO DAILY [facility] Last Admin: 10/10/16 09:30 Dose: 25 mg Trazodone HCl (Desyrel -) 50 mg PO HS [facility] Last Admin: 10/09/16 22:42 Dose: 50 mg - Objective Vital Signs: Vital Signs Temperature 97.8 F 10/10/16 14:20 Pulse Rate 87 10/10/16 14:20 Respiratory Rate 18 10/10/16 14:20 Blood Pressure 115/62 10/10/16 14:20 O2 Sat by Pulse Oximetry (%) 99 10/10/16 09:00 Constitutional: Yes: No Distress, Calm Cardiovascular: Yes: Regular Rate and Rhythm Respiratory: Yes: Regular, CTA Bilaterally Gastrointestinal: Yes: Normal Bowel Sounds, Soft Musculoskeletal: Yes: WNL Extremities: Yes: Other Wound/Incision: Yes: Dressing Dry and Intact Neurological: Yes: Alert Psychiatric: Yes: Alert Labs: CBC, BMP 10/07/16 06:30 10/07/16 06:30 INR, PTT INR 1.10 (0.82-1.09) 10/04/16 17:50 Assessment/Plan patient with no palpable pulses non healing Left heel ulcer for over a month. DM dementia cellulitis of the heel patient with significant vessel disease blood cx result noted send repeat blood cx plan continue clinda changed unasyn to augmentin
[2016-10-10] MEDS: AMOX TR/POT CLAV 500MG/125MG TABLETS (FP) PO SCH (18:47)
[2016-10-10] MEDS: DOCUSATE SODIUM 100 MG CAPSULE (FP) PO SCH (22:04)
[2016-10-10] MEDS: traZODone HCL 50 MG TABLET (FP) PO SCH (22:05)
--- NOTE | 2016-10-10 23:42 | PN ---
Progress Note, Physician - Current Medication List Current Medications: Active Medications Acetaminophen (Tylenol -) 650 mg PO Q6H PRN PRN Reason: PAIN Last Admin: 10/10/16 00:00 Dose: 650 mg Acetaminophen (Tylenol -) 325 mg PO Q6H PRN PRN Reason: PAIN Last Admin: 10/10/16 09:32 Dose: 325 mg Amlodipine Besylate (Norvasc -) 5 mg PO DAILY [facility] Last Admin: 10/10/16 09:33 Dose: 5 mg Amoxicillin/Clavulanate Potassium (Augmentin - 500mg Tablet) 1 tab PO BID@0800, 1730 [facility] Last Admin: 10/10/16 18:47 Dose: 1 tab Aspirin (Asa -) 81 mg PO DAILY [facility] Last Admin: 10/10/16 09:33 Dose: 81 mg Clindamycin HCl (Cleocin -) 300 mg PO Q6HPO [facility] Last Admin: 10/10/16 17:40 Dose: 300 mg Clopidogrel Bisulfate (Plavix -) 75 mg PO DAILY [facility] Last Admin: 10/10/16 09:30 Dose: 75 mg Collagenase (Santyl -) 1 applic TP DAILY [facility] Last Admin: 10/10/16 11:07 Dose: 1 applic Cyanocobalamin (Vitamin B12 -) 1,000 mcg PO DAILY [facility] Last Admin: 10/10/16 09:30 Dose: 1,000 mcg Docusate Sodium (Colace -) 300 mg PO HS [facility] Last Admin: 10/10/16 22:04 Dose: 300 mg Donepezil HCl (Aricept -) 10 mg PO DAILY [facility] Last Admin: 10/10/16 09:33 Dose: 10 mg Heparin Sodium (Porcine) (Heparin -) 5,000 unit SQ BID [facility] Last Admin: 10/10/16 22:06 Dose: 5,000 unit Memantine (Namenda -) 5 mg PO BID [facility] Last Admin: 10/10/16 22:05 Dose: 5 mg Oxycodone HCl (Roxicodone -) 5 mg PO Q6H PRN PRN Reason: PAIN Last Admin: 10/10/16 09:31 Dose: 5 mg Quetiapine Fumarate (Seroquel -) 50 mg PO HS [facility] Last Admin: 10/10/16 22:05 Dose: 50 mg Quetiapine Fumarate (Seroquel -) 25 mg PO DAILY [facility] Last Admin: 10/10/16 09:30 Dose: 25 mg Trazodone HCl (Desyrel -) 50 mg PO HS [facility] Last Admin: 10/10/16 22:05 Dose: 50 mg - Objective Vital Signs: Vital Signs Temperature 97.7 F 10/10/16 18:00 Pulse Rate 100 H 10/10/16 18:00 Respiratory Rate 20 10/10/16 18:00 Blood Pressure 122/79 10/10/16 18:00 O2 Sat by Pulse Oximetry (%) 99 10/10/16 09:00 Labs: CBC, BMP 10/07/16 06:30 10/07/16 06:30 INR, PTT INR 1.10 (0.82-1.09) 10/04/16 17:50 Problem List - Problems (1) Infection of left foot Code(s): L08.9 - LOCAL INFECTION OF THE SKIN AND SUBCUTANEOUS TISSUE, UNSP (2) Dementia Code(s): F03.90 - UNSPECIFIED DEMENTIA WITHOUT BEHAVIORAL DISTURBANCE Qualifiers: Dementia type: unspecified type Dementia behavioral disturbance: without behavioral disturbance Qualified Code(s): F03.90 - Unspecified dementia without behavioral disturbance (3) HTN (hypertension) Code(s): I10 - ESSENTIAL (PRIMARY) HYPERTENSION (4) CAD (coronary artery disease) Code(s): I25.10 - ATHSCL HEART DISEASE OF [place] CORONARY ARTERY W/O ANG PCTRS
[2016-10-11] MEDS: CLINDAMYCIN HCL 150 MG CAPSULE (FP) PO SCH ×4 (01:53→17:17)
[2016-10-11 08:50] LABS: BASOPHIL 0.5 % (0-2.0); EOSINOPHIL 2.6 % (0-4.5); MCH 30.4 pg (25.7-33.7); MCHC 33.7 g/dl (32.0-35.9); MEAN CELL VOLUME 90.3 fl (80-96); MEAN PLT VOLUME 8.4 fl (7.5-11.1); NEUTROPHILS 68.1 % (42.8-82.8); PLATELET COUNT 344 K/MM3 (134-434); RDW 13.3 % (11.9-15.9); WHITE BLOOD COUNT 9.9 K/mm3 (4.0-10.0)
[2016-10-11 08:59] LABS: ALBUMIN 3.2 g/dl (3.4-5.0); ANION GAP 11 (8-16); BILIRUBIN,TOTAL 0.5 mg/dL (0.2-1.0); CALCIUM 8.8 mg/dL (8.5-10.1); CO2 27 mmol/L (21-32); CREATININE 0.8 mg/dL (0.7-1.3); GLUCOSE,RANDOM 164 mg/dL (74-106); SGOT/AST 15 U/L (15-37); SGPT/ALT 18 U/L (12-78)
[2016-10-11 09:00] LABS: ALK PHOS 58 U/L (45-117)
[2016-10-11] MEDS ORDERED: PT OWN MED DRAWER 7, Y5N ONE ×2 (09:00→17:16)
[2016-10-11] MEDS: CLOPIDOGREL BISULFATE 75 MG TABLET (FP) PO SCH (09:01)
[2016-10-11] MEDS: amLODIPine BESYLATE 5 MG TABLET (FP) PO SCH (09:01)
[2016-10-11] MEDS: ASPIRIN 81 MG CHEWABLE TABLETS PO SCH (09:01)
[2016-10-11] MEDS: CYANOCOBALAMIN 1,000 MCG TABLET (FP) PO SCH (09:02)
[2016-10-11] MEDS: AMOX TR/POT CLAV 500MG/125MG TABLETS (FP) PO SCH ×2 (09:02→17:17)
[2016-10-11] MEDS: MEMANTINE HCL 5 MG TABLET (UD) PO SCH ×2 (09:02→23:51)
[2016-10-11] MEDS: HEPARIN NA (PORCINE) 5,000 UNITS/ML 1ML VIAL SQ SCH ×2 (09:02→23:51)
[2016-10-11] MEDS: ACETAMINOPHEN 325 MG TABLET (FP) PO PRN (09:03)
[2016-10-11] MEDS: DONEPEZIL HCL 10 MG TABLET (FP) PO SCH (09:04)
[2016-10-11] MEDS: QUEtiapine FUMARATE 25 MG TABLET (FP) PO SCH ×2 (09:05→23:51)
[2016-10-11] MEDS: COLLAGENASE CLOSTRIDIUM HIST. 30 GRAMS TUBE TP SCH (09:27)
--- NOTE | 2016-10-11 15:24 | PN ---
Progress Note, Physician History of Present Illness: stable doing well dsg removed wound looked at healing well - Current Medication List Current Medications: Active Medications Acetaminophen (Tylenol -) 650 mg PO Q6H PRN PRN Reason: PAIN Last Admin: 10/11/16 09:03 Dose: 650 mg Acetaminophen (Tylenol -) 325 mg PO Q6H PRN PRN Reason: PAIN Last Admin: 10/10/16 09:32 Dose: 325 mg Amlodipine Besylate (Norvasc -) 5 mg PO DAILY [facility] Last Admin: 10/11/16 09:01 Dose: 5 mg Amoxicillin/Clavulanate Potassium (Augmentin - 500mg Tablet) 1 tab PO BID@0800, 1730 [facility] Last Admin: 10/11/16 09:02 Dose: 1 tab Aspirin (Asa -) 81 mg PO DAILY [facility] Last Admin: 10/11/16 09:01 Dose: 81 mg Clindamycin HCl (Cleocin -) 300 mg PO Q6HPO [facility] Last Admin: 10/11/16 13:00 Dose: 300 mg Clopidogrel Bisulfate (Plavix -) 75 mg PO DAILY [facility] Last Admin: 10/11/16 09:01 Dose: 75 mg Collagenase (Santyl -) 1 applic TP DAILY [facility] Last Admin: 10/11/16 09:27 Dose: 1 applic Cyanocobalamin (Vitamin B12 -) 1,000 mcg PO DAILY [facility] Last Admin: 10/11/16 09:02 Dose: 1,000 mcg Docusate Sodium (Colace -) 300 mg PO HS [facility] Last Admin: 10/10/16 22:04 Dose: 300 mg Donepezil HCl (Aricept -) 10 mg PO DAILY [facility] Last Admin: 10/11/16 09:04 Dose: 10 mg Heparin Sodium (Porcine) (Heparin -) 5,000 unit SQ BID [facility] Last Admin: 10/11/16 09:02 Dose: 5,000 unit Memantine (Namenda -) 5 mg PO BID [facility] Last Admin: 10/11/16 09:02 Dose: 5 mg Oxycodone HCl (Roxicodone -) 5 mg PO Q6H PRN PRN Reason: PAIN Last Admin: 10/10/16 09:31 Dose: 5 mg Quetiapine Fumarate (Seroquel -) 50 mg PO HS [facility] Last Admin: 10/10/16 22:05 Dose: 50 mg Quetiapine Fumarate (Seroquel -) 25 mg PO DAILY [facility] Last Admin: 10/11/16 09:05 Dose: 25 mg Trazodone HCl (Desyrel -) 50 mg PO [facility] Last Admin: 10/10/16 22:05 Dose: 50 mg - Objective Vital Signs: Vital Signs Temperature 98 F 10/10/16 22:00 Pulse Rate 98 H 10/11/16 09:00 Respiratory Rate 18 10/11/16 09:00 Blood Pressure 123/80 10/11/16 09:00 O2 Sat by Pulse Oximetry (%) 99 10/10/16 21:00 Constitutional: Yes: No Distress, Calm Cardiovascular: Yes: Regular Rate and Rhythm Respiratory: Yes: Regular, CTA Bilaterally Gastrointestinal: Yes: Normal Bowel Sounds, Soft Musculoskeletal: Yes: Other Extremities: Yes: Other Integumentary: Yes: Erythema (minimal) Wound/Incision: Yes: Clean/Dry, Other Neurological: Yes: Alert Psychiatric: Yes: Alert Labs: CBC, BMP 10/11/16 08:25 10/11/16 08:25 INR, PTT INR 1.10 (0.82-1.09) 10/04/16 17:50 Assessment/Plan patient with post angioplasty non healing Left heel ulcer for over a month. DM dementia cellulitis of the heel patient with significant vessel disease blood cx result noted send repeat blood cx plan continue po abx will need it for another 7 days
--- NOTE | 2016-10-11 15:46 | PN ---
Progress Note (short form) - Note Progress Note: Vascular Surgery Pt seen and examined. Left heel better. Changed to PO antibiotics by LUIS Everett daily to left heel Follow up in vascular clinic Please make appt for pt prior to DC [phone] Devan Kothari DO
--- NOTE | 2016-10-11 22:59 | PN ---
Progress Note, Physician History of Present Illness: No new complaints Pt tolerated procedure - Current Medication List Current Medications: Active Medications Acetaminophen (Tylenol -) 650 mg PO Q6H PRN PRN Reason: PAIN Last Admin: 10/11/16 09:03 Dose: 650 mg Acetaminophen (Tylenol -) 325 mg PO Q6H PRN PRN Reason: PAIN Last Admin: 10/10/16 09:32 Dose: 325 mg Amlodipine Besylate (Norvasc -) 5 mg PO DAILY [facility] Last Admin: 10/11/16 09:01 Dose: 5 mg Amoxicillin/Clavulanate Potassium (Augmentin - 500mg Tablet) 1 tab PO BID@0800, 1730 [facility] Last Admin: 10/11/16 17:17 Dose: 1 tab Aspirin (Asa -) 81 mg PO DAILY [facility] Last Admin: 10/11/16 09:01 Dose: 81 mg Clindamycin HCl (Cleocin -) 300 mg PO Q6HPO [facility] Last Admin: 10/11/16 17:17 Dose: 300 mg Clopidogrel Bisulfate (Plavix -) 75 mg PO DAILY [facility] Last Admin: 10/11/16 09:01 Dose: 75 mg Collagenase (Santyl -) 1 applic TP DAILY [facility] Last Admin: 10/11/16 09:27 Dose: 1 applic Cyanocobalamin (Vitamin B12 -) 1,000 mcg PO DAILY [facility] Last Admin: 10/11/16 09:02 Dose: 1,000 mcg Docusate Sodium (Colace -) 300 mg PO HS [facility] Last Admin: 10/10/16 22:04 Dose: 300 mg Donepezil HCl (Aricept -) 10 mg PO DAILY [facility] Last Admin: 10/11/16 09:04 Dose: 10 mg Heparin Sodium (Porcine) (Heparin -) 5,000 unit SQ BID [facility] Last Admin: 10/11/16 09:02 Dose: 5,000 unit Memantine (Namenda -) 5 mg PO BID [facility] Last Admin: 10/11/16 09:02 Dose: 5 mg Oxycodone HCl (Roxicodone -) 5 mg PO Q6H PRN PRN Reason: PAIN Last Admin: 10/10/16 09:31 Dose: 5 mg Quetiapine Fumarate (Seroquel -) 50 mg PO HS [facility] Last Admin: 10/10/16 22:05 Dose: 50 mg Quetiapine Fumarate (Seroquel -) 25 mg PO DAILY [facility] Last Admin: 10/11/16 09:05 Dose: 25 mg Trazodone HCl (Desyrel -) 50 mg PO HS [facility] Last Admin: 10/10/16 22:05 Dose: 50 mg - Objective Vital Signs: Vital Signs Temperature 98.5 F 10/11/16 18:05 Pulse Rate 83 10/11/16 18:05 Respiratory Rate 20 10/11/16 18:05 Blood Pressure 117/50 10/11/16 18:05 O2 Sat by Pulse Oximetry (%) 99 10/10/16 21:00 Constitutional: Yes: Well Nourished Neck: Yes: Supple Cardiovascular: Yes: WNL, Regular Rate and Rhythm Respiratory: Yes: WNL, Regular, CTA Bilaterally Gastrointestinal: Yes: WNL, Normal Bowel Sounds, Soft Extremities: Yes: Other (Lt foot in bandages) Labs: CBC, BMP 10/11/16 08:25 10/11/16 08:25 INR, PTT INR 1.10 (0.82-1.09) 10/04/16 17:50 Problem List - Problems (1) Infection of left foot Assessment/Plan: Bacteremia w/ micrococcus S/P aortogram LLE w/ lt tibial artery atherectomy/angioplasty Cont PO clinda/augmentin Repeat BC remain negative WBC is normal Code(s): L08.9 - LOCAL INFECTION OF THE SKIN AND SUBCUTANEOUS TISSUE, UNSP (2) Dementia Assessment/Plan: Cont namenda/aricept/seroquel Code(s): F03.90 - UNSPECIFIED DEMENTIA WITHOUT BEHAVIORAL DISTURBANCE Qualifiers: Dementia type: unspecified type Dementia behavioral disturbance: without behavioral disturbance Qualified Code(s): F03.90 - Unspecified dementia without behavioral disturbance (3) HTN (hypertension) Assessment/Plan: BP stable Cont asa/norvasc Code(s): I10 - ESSENTIAL (PRIMARY) HYPERTENSION (4) CAD (coronary artery disease) Code(s): I25.10 - ATHSCL HEART DISEASE OF [place] CORONARY ARTERY W/O ANG PCTRS
[2016-10-11] MEDS: DOCUSATE SODIUM 100 MG CAPSULE (FP) PO SCH (23:50)
[2016-10-11] MEDS: traZODone HCL 50 MG TABLET (FP) PO SCH (23:51)
[2016-10-12] MEDS: CLINDAMYCIN HCL 150 MG CAPSULE (FP) PO SCH ×4 (02:56→18:06)
[2016-10-12] MEDS ORDERED: PT OWN MED DRAWER 7, Y5N ONE ×2 (08:04→16:39)
[2016-10-12] MEDS: AMOX TR/POT CLAV 500MG/125MG TABLETS (FP) PO SCH ×2 (08:47→17:11)
[2016-10-12] MEDS: CLOPIDOGREL BISULFATE 75 MG TABLET (FP) PO SCH (10:53)
[2016-10-12] MEDS: amLODIPine BESYLATE 5 MG TABLET (FP) PO SCH (10:53)
[2016-10-12] MEDS: ASPIRIN 81 MG CHEWABLE TABLETS PO SCH (10:53)
[2016-10-12] MEDS: DONEPEZIL HCL 10 MG TABLET (FP) PO SCH ×2 (10:53→11:00)
[2016-10-12] MEDS: CYANOCOBALAMIN 1,000 MCG TABLET (FP) PO SCH ×2 (10:54→11:00)
[2016-10-12] MEDS: MEMANTINE HCL 5 MG TABLET (UD) PO SCH ×3 (10:54→22:15)
[2016-10-12] MEDS: HEPARIN NA (PORCINE) 5,000 UNITS/ML 1ML VIAL SQ SCH ×2 (10:54→22:15)
[2016-10-12] MEDS: QUEtiapine FUMARATE 25 MG TABLET (FP) PO SCH ×3 (10:54→22:15)
--- NOTE | 2016-10-12 16:32 | PN ---
Progress Note, Physician History of Present Illness: doing well no issues - Current Medication List Current Medications: Active Medications Acetaminophen (Tylenol -) 650 mg PO Q6H PRN PRN Reason: PAIN Last Admin: 10/11/16 09:03 Dose: 650 mg Acetaminophen (Tylenol -) 325 mg PO Q6H PRN PRN Reason: PAIN Last Admin: 10/10/16 09:32 Dose: 325 mg Amlodipine Besylate (Norvasc -) 5 mg PO DAILY [facility] Last Admin: 10/12/16 10:53 Dose: 5 mg Amoxicillin/Clavulanate Potassium (Augmentin - 500mg Tablet) 1 tab PO BID@0800, 1730 [facility] Last Admin: 10/12/16 08:47 Dose: 1 tab Aspirin (Asa -) 81 mg PO DAILY [facility] Last Admin: 10/12/16 10:53 Dose: 81 mg Clindamycin HCl (Cleocin -) 300 mg PO Q6HPO [facility] Last Admin: 10/12/16 13:00 Dose: Not Given Clopidogrel Bisulfate (Plavix -) 75 mg PO DAILY [facility] Last Admin: 10/12/16 10:53 Dose: 75 mg Collagenase (Santyl -) 1 applic TP DAILY [facility] Last Admin: 10/11/16 09:27 Dose: 1 applic Cyanocobalamin (Vitamin B12 -) 1,000 mcg PO DAILY [facility] Last Admin: 10/12/16 11:00 Dose: Not Given Docusate Sodium (Colace -) 300 mg PO [facility] Last Admin: 10/11/16 23:50 Dose: 300 mg Donepezil HCl (Aricept -) 10 mg PO DAILY [facility] Last Admin: 10/12/16 11:00 Dose: Not Given Heparin Sodium (Porcine) (Heparin -) 5,000 unit SQ BID [facility] Last Admin: 10/12/16 10:54 Dose: 5,000 unit Memantine (Namenda -) 5 mg PO BID [facility] Last Admin: 10/12/16 11:00 Dose: Not Given Oxycodone HCl (Roxicodone -) 5 mg PO Q6H PRN PRN Reason: PAIN Last Admin: 10/10/16 09:31 Dose: 5 mg Quetiapine Fumarate (Seroquel -) 50 mg PO HS [facility] Last Admin: 10/11/16 23:51 Dose: 50 mg Quetiapine Fumarate (Seroquel -) 25 mg PO DAILY [facility] Last Admin: 10/12/16 11:00 Dose: Not Given Trazodone HCl (Desyrel -) 50 mg PO HS [facility] Last Admin: 10/11/16 23:51 Dose: 50 mg - Objective Vital Signs: Vital Signs Temperature 98.4 F 10/12/16 14:49 Pulse Rate 88 10/12/16 14:49 Respiratory Rate 22 10/12/16 14:49 Blood Pressure 146/74 10/12/16 14:49 O2 Sat by Pulse Oximetry (%) 99 10/10/16 21:00 Constitutional: Yes: No Distress, Calm Neck: Yes: Supple Cardiovascular: Yes: Regular Rate and Rhythm Respiratory: Yes: Regular, CTA Bilaterally Gastrointestinal: Yes: Normal Bowel Sounds, Soft Musculoskeletal: Yes: Other Extremities: Yes: Other Integumentary: Yes: Erythema (minimal) Wound/Incision: Yes: Clean/Dry, Dressing Dry and Intact Neurological: Yes: Alert Psychiatric: Yes: Alert Labs: CBC, BMP 10/11/16 08:25 10/11/16 08:25 INR, PTT INR 1.10 (0.82-1.09) 10/04/16 17:50 Assessment/Plan patient with post angioplasty non healing Left heel ulcer for over a month. DM dementia cellulitis of the heel patient with significant vessel disease blood cx result noted send repeat blood cx plan continue po abx will need it for another 6 days
[2016-10-12] MEDS: COLLAGENASE CLOSTRIDIUM HIST. 30 GRAMS TUBE TP SCH (18:08)
--- NOTE | 2016-10-12 21:30 | PN ---
Progress Note, Physician History of Present Illness: No new complaints - Current Medication List Current Medications: Active Medications Acetaminophen (Tylenol -) 650 mg PO Q6H PRN PRN Reason: PAIN Last Admin: 10/11/16 09:03 Dose: 650 mg Amlodipine Besylate (Norvasc -) 5 mg PO DAILY [facility] Last Admin: 10/12/16 10:53 Dose: 5 mg Amoxicillin/Clavulanate Potassium (Augmentin - 500mg Tablet) 1 tab PO BID@0800, 1730 [facility] Last Admin: 10/12/16 17:11 Dose: 1 tab Aspirin (Asa -) 81 mg PO DAILY [facility] Last Admin: 10/12/16 10:53 Dose: 81 mg Clindamycin HCl (Cleocin -) 300 mg PO Q6HPO [facility] Last Admin: 10/12/16 18:06 Dose: 300 mg Clopidogrel Bisulfate (Plavix -) 75 mg PO DAILY [facility] Last Admin: 10/12/16 10:53 Dose: 75 mg Collagenase (Santyl -) 1 applic TP DAILY [facility] Last Admin: 10/12/16 18:08 Dose: 1 applic Cyanocobalamin (Vitamin B12 -) 1,000 mcg PO DAILY [facility] Last Admin: 10/12/16 11:00 Dose: Not Given Docusate Sodium (Colace -) 300 mg PO HS [facility] Last Admin: 10/11/16 23:50 Dose: 300 mg Donepezil HCl (Aricept -) 10 mg PO DAILY [facility] Last Admin: 10/12/16 11:00 Dose: Not Given Heparin Sodium (Porcine) (Heparin -) 5,000 unit SQ BID [facility] Last Admin: 10/12/16 10:54 Dose: 5,000 unit Memantine (Namenda -) 5 mg PO BID [facility] Last Admin: 10/12/16 11:00 Dose: Not Given Oxycodone HCl (Roxicodone -) 5 mg PO Q6H PRN PRN Reason: PAIN Last Admin: 10/10/16 09:31 Dose: 5 mg Quetiapine Fumarate (Seroquel -) 50 mg PO HS [facility] Last Admin: 10/11/16 23:51 Dose: 50 mg Quetiapine Fumarate (Seroquel -) 25 mg PO DAILY [facility] Last Admin: 10/12/16 11:00 Dose: Not Given Tramadol HCl (Ultram -) 50 mg PO Q8H PRN PRN Reason: PAIN Trazodone HCl (Desyrel -) 50 mg PO HS [facility] Last Admin: 10/11/16 23:51 Dose: 50 mg - Objective Vital Signs: Vital Signs Temperature 98.4 F 10/12/16 18:00 Pulse Rate 85 10/12/16 18:00 Respiratory Rate 20 10/12/16 18:00 Blood Pressure 140/80 10/12/16 18:00 O2 Sat by Pulse Oximetry (%) 99 10/10/16 21:00 Constitutional: Yes: Well Nourished Neck: Yes: Supple Cardiovascular: Yes: WNL, Regular Rate and Rhythm Respiratory: Yes: WNL, Regular, CTA Bilaterally Gastrointestinal: Yes: WNL, Normal Bowel Sounds, Soft, Abdomen, Obese Extremities: Yes: Other (LT foot in dressing) Labs: CBC, BMP 10/11/16 08:25 10/11/16 08:25 INR, PTT INR 1.10 (0.82-1.09) 10/04/16 17:50 Problem List - Problems (1) Infection of left foot Assessment/Plan: Bacteremia w/ micrococcus S/P aortogram LLE w/ lt tibial artery atherectomy/angioplasty Cont PO clinda/augmentin Repeat BC remain negative WBC is normal Code(s): L08.9 - LOCAL INFECTION OF THE SKIN AND SUBCUTANEOUS TISSUE, UNSP (2) Dementia Assessment/Plan: Cont namenda/aricept/seroquel Code(s): F03.90 - UNSPECIFIED DEMENTIA WITHOUT BEHAVIORAL DISTURBANCE Qualifiers: Dementia type: unspecified type Dementia behavioral disturbance: without behavioral disturbance Qualified Code(s): F03.90 - Unspecified dementia without behavioral disturbance (3) HTN (hypertension) Assessment/Plan: BP stable Cont asa/norvasc Code(s): I10 - ESSENTIAL (PRIMARY) HYPERTENSION (4) CAD (coronary artery disease) Assessment/Plan: Cont plavix Code(s): I25.10 - ATHSCL HEART DISEASE OF [place] CORONARY ARTERY W/O ANG PCTRS
[2016-10-12] MEDS: traZODone HCL 50 MG TABLET (FP) PO SCH (22:15)
[2016-10-12] MEDS: DOCUSATE SODIUM 100 MG CAPSULE (FP) PO SCH (22:15)
[2016-10-13] MEDS: CLINDAMYCIN HCL 150 MG CAPSULE (FP) PO SCH ×5 (00:43→23:01)
[2016-10-13] MEDS: oxyCODONE HCL 5 MG TABLET PO PRN (00:46)
[2016-10-13] MEDS: ACETAMINOPHEN 325 MG TABLET (FP) PO PRN (00:46)
[2016-10-13] MEDS ORDERED: PT OWN MED DRAWER 7, Y5N ONE ×2 (07:44→16:40)
[2016-10-13] MEDS: AMOX TR/POT CLAV 500MG/125MG TABLETS (FP) PO SCH ×2 (08:32→16:51)
[2016-10-13] MEDS: DONEPEZIL HCL 10 MG TABLET (FP) PO SCH (09:01)
[2016-10-13] MEDS: MEMANTINE HCL 5 MG TABLET (UD) PO SCH ×2 (09:01→23:02)
[2016-10-13] MEDS: ASPIRIN 81 MG CHEWABLE TABLETS PO SCH (09:01)
[2016-10-13] MEDS: CYANOCOBALAMIN 1,000 MCG TABLET (FP) PO SCH (09:01)
[2016-10-13] MEDS: QUEtiapine FUMARATE 25 MG TABLET (FP) PO SCH ×2 (09:02→23:02)
[2016-10-13] MEDS: amLODIPine BESYLATE 5 MG TABLET (FP) PO SCH (09:02)
[2016-10-13] MEDS: HEPARIN NA (PORCINE) 5,000 UNITS/ML 1ML VIAL SQ SCH ×2 (09:02→23:02)
[2016-10-13] MEDS: CLOPIDOGREL BISULFATE 75 MG TABLET (FP) PO SCH (09:05)
[2016-10-13] MEDS: traMADol HCL 50 MG TABLET PO PRN ×2 (09:54→20:32)
[2016-10-13] MEDS: COLLAGENASE CLOSTRIDIUM HIST. 30 GRAMS TUBE TP SCH (13:32)
--- NOTE | 2016-10-13 17:30 | PN ---
Progress Note, Physician History of Present Illness: stable no new issues - Current Medication List Current Medications: Active Medications Acetaminophen (Tylenol -) 650 mg PO Q6H PRN PRN Reason: PAIN Last Admin: 10/13/16 00:46 Dose: 650 mg Amlodipine Besylate (Norvasc -) 5 mg PO DAILY [facility] Last Admin: 10/13/16 09:02 Dose: 5 mg Amoxicillin/Clavulanate Potassium (Augmentin - 500mg Tablet) 1 tab PO BID@0800, 1730 [facility] Last Admin: 10/13/16 16:51 Dose: 1 tab Aspirin (Asa -) 81 mg PO DAILY [facility] Last Admin: 10/13/16 09:01 Dose: 81 mg Clindamycin HCl (Cleocin -) 300 mg PO Q6HPO [facility] Last Admin: 10/13/16 17:05 Dose: 300 mg Clopidogrel Bisulfate (Plavix -) 75 mg PO DAILY [facility] Last Admin: 10/13/16 09:05 Dose: 75 mg Collagenase (Santyl -) 1 applic TP DAILY [facility] Last Admin: 10/13/16 13:32 Dose: 1 applic Cyanocobalamin (Vitamin B12 -) 1,000 mcg PO DAILY [facility] Last Admin: 10/13/16 09:01 Dose: 1,000 mcg Docusate Sodium (Colace -) 300 mg PO HS [facility] Last Admin: 10/12/16 22:15 Dose: 300 mg Donepezil HCl (Aricept -) 10 mg PO DAILY [facility] Last Admin: 10/13/16 09:01 Dose: 10 mg Heparin Sodium (Porcine) (Heparin -) 5,000 unit SQ BID [facility] Last Admin: 10/13/16 09:02 Dose: 5,000 unit Memantine (Namenda -) 5 mg PO BID [facility] Last Admin: 10/13/16 09:01 Dose: 5 mg Quetiapine Fumarate (Seroquel -) 50 mg PO HS [facility] Last Admin: 10/12/16 22:15 Dose: 50 mg Quetiapine Fumarate (Seroquel -) 25 mg PO DAILY [facility] Last Admin: 10/13/16 09:02 Dose: 25 mg Tramadol HCl (Ultram -) 50 mg PO Q8H PRN PRN Reason: PAIN Last Admin: 10/13/16 09:54 Dose: 50 mg Trazodone HCl (Desyrel -) 50 mg PO HS [facility] Last Admin: 10/12/16 22:15 Dose: 50 mg - Objective Vital Signs: Vital Signs Temperature 97.2 F L 10/13/16 14:27 Pulse Rate 84 10/13/16 14:27 Respiratory Rate 20 10/13/16 14:27 Blood Pressure 145/85 10/13/16 14:27 O2 Sat by Pulse Oximetry (%) 96 10/13/16 10:00 Constitutional: Yes: No Distress, Calm Neck: Yes: Supple Cardiovascular: Yes: Regular Rate and Rhythm Respiratory: Yes: Regular, CTA Bilaterally Gastrointestinal: Yes: Normal Bowel Sounds, Soft Musculoskeletal: Yes: Other Extremities: Yes: Erythema (resolving), Other Integumentary: Yes: Erythema (resolving) Wound/Incision: Yes: Clean/Dry, Dressing Dry and Intact Neurological: Yes: Alert, Other Psychiatric: Yes: Alert Labs: CBC, BMP 10/11/16 08:25 10/11/16 08:25 INR, PTT INR 1.10 (0.82-1.09) 10/04/16 17:50 Assessment/Plan patient with post angioplasty non healing Left heel ulcer for over a month. DM dementia cellulitis of the heel patient with significant vessel disease blood cx result noted send repeat blood cx plan continue po abx will need it for another 5 days
--- NOTE | 2016-10-13 20:02 | PN ---
Progress Note, Physician History of Present Illness: No new complaints - Current Medication List Current Medications: Active Medications Acetaminophen (Tylenol -) 650 mg PO Q6H PRN PRN Reason: PAIN Last Admin: 10/13/16 00:46 Dose: 650 mg Amlodipine Besylate (Norvasc -) 5 mg PO DAILY [facility] Last Admin: 10/13/16 09:02 Dose: 5 mg Amoxicillin/Clavulanate Potassium (Augmentin - 500mg Tablet) 1 tab PO BID@0800, 1730 [facility] Last Admin: 10/13/16 16:51 Dose: 1 tab Aspirin (Asa -) 81 mg PO DAILY [facility] Last Admin: 10/13/16 09:01 Dose: 81 mg Clindamycin HCl (Cleocin -) 300 mg PO Q6HPO [facility] Last Admin: 10/13/16 17:05 Dose: 300 mg Clopidogrel Bisulfate (Plavix -) 75 mg PO DAILY [facility] Last Admin: 10/13/16 09:05 Dose: 75 mg Collagenase (Santyl -) 1 applic TP DAILY [facility] Last Admin: 10/13/16 13:32 Dose: 1 applic Cyanocobalamin (Vitamin B12 -) 1,000 mcg PO DAILY [facility] Last Admin: 10/13/16 09:01 Dose: 1,000 mcg Docusate Sodium (Colace -) 300 mg PO HS [facility] Last Admin: 10/12/16 22:15 Dose: 300 mg Donepezil HCl (Aricept -) 10 mg PO DAILY [facility] Last Admin: 10/13/16 09:01 Dose: 10 mg Heparin Sodium (Porcine) (Heparin -) 5,000 unit SQ BID [facility] Last Admin: 10/13/16 09:02 Dose: 5,000 unit Memantine (Namenda -) 5 mg PO BID [facility] Last Admin: 10/13/16 09:01 Dose: 5 mg Quetiapine Fumarate (Seroquel -) 50 mg PO HS [facility] Last Admin: 10/12/16 22:15 Dose: 50 mg Quetiapine Fumarate (Seroquel -) 25 mg PO DAILY [facility] Last Admin: 10/13/16 09:02 Dose: 25 mg Tramadol HCl (Ultram -) 50 mg PO Q8H PRN PRN Reason: PAIN Last Admin: 10/13/16 09:54 Dose: 50 mg Trazodone HCl (Desyrel -) 50 mg PO HS [facility] Last Admin: 10/12/16 22:15 Dose: 50 mg - Objective Vital Signs: Vital Signs Temperature 99.0 F 10/13/16 18:00 Pulse Rate 88 10/13/16 18:00 Respiratory Rate 20 10/13/16 18:00 Blood Pressure 143/86 10/13/16 18:00 O2 Sat by Pulse Oximetry (%) 96 10/13/16 10:00 Constitutional: Yes: Well Nourished Neck: Yes: Supple Cardiovascular: Yes: WNL, Regular Rate and Rhythm Respiratory: Yes: WNL, Regular, CTA Bilaterally Gastrointestinal: Yes: WNL, Normal Bowel Sounds, Soft Extremities: Yes: Other (RT ankle in dressing) Labs: CBC, BMP 10/11/16 08:25 10/11/16 08:25 INR, PTT INR 1.10 (0.82-1.09) 10/04/16 17:50 Problem List - Problems (1) Infection of left foot Assessment/Plan: Bacteremia w/ micrococcus S/P aortogram LLE w/ lt tibial artery atherectomy/angioplasty Cont PO clinda/augmentin x 5 more days DC planning for am Repeat BC remain negative WBC is normal Code(s): L08.9 - LOCAL INFECTION OF THE SKIN AND SUBCUTANEOUS TISSUE, UNSP (2) Dementia Assessment/Plan: Cont namenda/aricept/seroquel Code(s): F03.90 - UNSPECIFIED DEMENTIA WITHOUT BEHAVIORAL DISTURBANCE Qualifiers: Dementia type: unspecified type Dementia behavioral disturbance: without behavioral disturbance Qualified Code(s): F03.90 - Unspecified dementia without behavioral disturbance (3) HTN (hypertension) Assessment/Plan: BP stable Cont asa/norvasc Code(s): I10 - ESSENTIAL (PRIMARY) HYPERTENSION (4) CAD (coronary artery disease) Code(s): I25.10 - ATHSCL HEART DISEASE OF [place] CORONARY ARTERY W/O ANG PCTRS
[2016-10-13] MEDS: DOCUSATE SODIUM 100 MG CAPSULE (FP) PO SCH (23:01)
[2016-10-13] MEDS: traZODone HCL 50 MG TABLET (FP) PO SCH (23:02)
[2016-10-14] MEDS: CLINDAMYCIN HCL 150 MG CAPSULE (FP) PO SCH ×3 (05:47→17:59)
[2016-10-14] MEDS ORDERED: PT OWN MED DRAWER 7, Y5N ONE (08:56)
[2016-10-14] MEDS: AMOX TR/POT CLAV 500MG/125MG TABLETS (FP) PO SCH ×2 (09:04→17:09)
[2016-10-14] MEDS: ASPIRIN 81 MG CHEWABLE TABLETS PO SCH (10:25)
[2016-10-14] MEDS: amLODIPine BESYLATE 5 MG TABLET (FP) PO SCH (10:25)
[2016-10-14] MEDS: CYANOCOBALAMIN 1,000 MCG TABLET (FP) PO SCH (10:25)
[2016-10-14] MEDS: CLOPIDOGREL BISULFATE 75 MG TABLET (FP) PO SCH (10:25)
[2016-10-14] MEDS: MEMANTINE HCL 5 MG TABLET (UD) PO SCH ×2 (10:25→22:58)
[2016-10-14] MEDS: QUEtiapine FUMARATE 25 MG TABLET (FP) PO SCH ×2 (10:25→23:01)
[2016-10-14] MEDS: DONEPEZIL HCL 10 MG TABLET (FP) PO SCH (10:26)
[2016-10-14] MEDS: HEPARIN NA (PORCINE) 5,000 UNITS/ML 1ML VIAL SQ SCH ×2 (10:26→22:58)
--- NOTE | 2016-10-14 15:11 | PN ---
Progress Note, Physician History of Present Illness: stable no new issues sitting in chair - Current Medication List Current Medications: Active Medications Acetaminophen (Tylenol -) 650 mg PO Q6H PRN PRN Reason: PAIN Last Admin: 10/13/16 00:46 Dose: 650 mg Amlodipine Besylate (Norvasc -) 5 mg PO DAILY [facility] Last Admin: 10/14/16 10:25 Dose: 5 mg Amoxicillin/Clavulanate Potassium (Augmentin - 500mg Tablet) 1 tab PO BID@0800, 1730 [facility] Last Admin: 10/14/16 09:04 Dose: 1 tab Aspirin (Asa -) 81 mg PO DAILY [facility] Last Admin: 10/14/16 10:25 Dose: 81 mg Clindamycin HCl (Cleocin -) 300 mg PO Q6HPO [facility] Last Admin: 10/14/16 12:05 Dose: 300 mg Clopidogrel Bisulfate (Plavix -) 75 mg PO DAILY [facility] Last Admin: 10/14/16 10:25 Dose: 75 mg Collagenase (Santyl -) 1 applic TP DAILY [facility] Last Admin: 10/13/16 13:32 Dose: 1 applic Cyanocobalamin (Vitamin B12 -) 1,000 mcg PO DAILY [facility] Last Admin: 10/14/16 10:25 Dose: 1,000 mcg Docusate Sodium (Colace -) 300 mg PO HS [facility] Last Admin: 10/13/16 23:01 Dose: 300 mg Donepezil HCl (Aricept -) 10 mg PO DAILY [facility] Last Admin: 10/14/16 10:26 Dose: 10 mg Heparin Sodium (Porcine) (Heparin -) 5,000 unit SQ BID [facility] Last Admin: 10/14/16 10:26 Dose: 5,000 unit Memantine (Namenda -) 5 mg PO BID [facility] Last Admin: 10/14/16 10:25 Dose: 5 mg Quetiapine Fumarate (Seroquel -) 50 mg PO HS [facility] Last Admin: 10/13/16 23:02 Dose: 50 mg Quetiapine Fumarate (Seroquel -) 25 mg PO DAILY [facility] Last Admin: 10/14/16 10:25 Dose: 25 mg Tramadol HCl (Ultram -) 50 mg PO Q8H PRN PRN Reason: PAIN Last Admin: 10/13/16 20:32 Dose: 50 mg Trazodone HCl (Desyrel -) 50 mg PO HS [facility] Last Admin: 10/13/16 23:02 Dose: 50 mg - Objective Vital Signs: Vital Signs Temperature 98.4 F 10/14/16 14:03 Pulse Rate 88 10/14/16 14:03 Respiratory Rate 18 10/14/16 14:03 Blood Pressure 105/66 10/14/16 14:03 O2 Sat by Pulse Oximetry (%) 96 10/13/16 22:00 Constitutional: Yes: No Distress, Calm Cardiovascular: Yes: Regular Rate and Rhythm Respiratory: Yes: Regular, CTA Bilaterally Gastrointestinal: Yes: Normal Bowel Sounds, Soft Musculoskeletal: Yes: Other Extremities: Yes: Other Wound/Incision: Yes: Clean/Dry, Dressing Dry and Intact Neurological: Yes: Alert, Other Psychiatric: Yes: Alert Labs: CBC, BMP 10/11/16 08:25 10/11/16 08:25 INR, PTT INR 1.10 (0.82-1.09) 10/04/16 17:50 Assessment/Plan patient with post angioplasty non healing Left heel ulcer for over a month. DM dementia cellulitis of the heel patient with significant vessel disease blood cx result noted send repeat blood cx plan continue po abx will need it for another 4 days
[2016-10-14] MEDS: COLLAGENASE CLOSTRIDIUM HIST. 30 GRAMS TUBE TP SCH (18:01)
[2016-10-14] MEDS: traZODone HCL 50 MG TABLET (FP) PO SCH (22:58)
[2016-10-14] MEDS: DOCUSATE SODIUM 100 MG CAPSULE (FP) PO SCH (22:58)
--- NOTE | 2016-10-14 23:35 | PN ---
Progress Note, Physician History of Present Illness: No new complaints - Current Medication List Current Medications: Active Medications Acetaminophen (Tylenol -) 650 mg PO Q6H PRN PRN Reason: PAIN Last Admin: 10/13/16 00:46 Dose: 650 mg Amlodipine Besylate (Norvasc -) 5 mg PO DAILY [facility] Last Admin: 10/14/16 10:25 Dose: 5 mg Amoxicillin/Clavulanate Potassium (Augmentin - 500mg Tablet) 1 tab PO BID@0800, 1730 [facility] Last Admin: 10/14/16 17:09 Dose: 1 tab Aspirin (Asa -) 81 mg PO DAILY [facility] Last Admin: 10/14/16 10:25 Dose: 81 mg Clindamycin HCl (Cleocin -) 300 mg PO Q6HPO [facility] Last Admin: 10/14/16 17:59 Dose: 300 mg Clopidogrel Bisulfate (Plavix -) 75 mg PO DAILY [facility] Last Admin: 10/14/16 10:25 Dose: 75 mg Collagenase (Santyl -) 1 applic TP DAILY [facility] Last Admin: 10/14/16 18:01 Dose: 1 applic Cyanocobalamin (Vitamin B12 -) 1,000 mcg PO DAILY [facility] Last Admin: 10/14/16 10:25 Dose: 1,000 mcg Docusate Sodium (Colace -) 300 mg PO HS [facility] Last Admin: 10/14/16 22:58 Dose: 300 mg Donepezil HCl (Aricept -) 10 mg PO DAILY [facility] Last Admin: 10/14/16 10:26 Dose: 10 mg Heparin Sodium (Porcine) (Heparin -) 5,000 unit SQ BID [facility] Last Admin: 10/14/16 22:58 Dose: 5,000 unit Memantine (Namenda -) 5 mg PO BID [facility] Last Admin: 10/14/16 22:58 Dose: 5 mg Quetiapine Fumarate (Seroquel -) 50 mg PO HS [facility] Last Admin: 10/14/16 23:01 Dose: 50 mg Quetiapine Fumarate (Seroquel -) 25 mg PO DAILY [facility] Last Admin: 10/14/16 10:25 Dose: 25 mg Tramadol HCl (Ultram -) 50 mg PO Q8H PRN PRN Reason: PAIN Last Admin: 10/13/16 20:32 Dose: 50 mg Trazodone HCl (Desyrel -) 50 mg PO HS [facility] Last Admin: 10/14/16 22:58 Dose: 50 mg - Objective Vital Signs: Vital Signs Temperature 97.4 F L 10/14/16 18:42 Pulse Rate 88 10/14/16 18:42 Respiratory Rate 18 10/14/16 18:42 Blood Pressure 145/55 10/14/16 18:42 O2 Sat by Pulse Oximetry (%) 96 10/14/16 11:00 Constitutional: Yes: Well Nourished Eyes: Yes: WNL HENT: Yes: WNL Neck: Yes: Supple Cardiovascular: Yes: WNL, Regular Rate and Rhythm Respiratory: Yes: WNL, Regular, CTA Bilaterally Gastrointestinal: Yes: WNL, Normal Bowel Sounds, Soft Extremities: Yes: Other (lt in dressing) Labs: CBC, BMP 10/11/16 08:25 10/11/16 08:25 INR, PTT INR 1.10 (0.82-1.09) 10/04/16 17:50 Problem List - Problems (1) Infection of left foot Assessment/Plan: Bacteremia w/ micrococcus S/P aortogram LLE w/ lt tibial artery atherectomy/angioplasty Cont PO clinda/augmentin x 4 more days DC planning for am Repeat BC remain negative WBC is normal Will need tof/u w/ vascular/podiatry/wound care as outpt This was explained to pt's daughter Code(s): L08.9 - LOCAL INFECTION OF THE SKIN AND SUBCUTANEOUS TISSUE, UNSP (2) Dementia Assessment/Plan: Cont namenda/aricept/seroquel Code(s): F03.90 - UNSPECIFIED DEMENTIA WITHOUT BEHAVIORAL DISTURBANCE Qualifiers: Dementia type: unspecified type Dementia behavioral disturbance: without behavioral disturbance Qualified Code(s): F03.90 - Unspecified dementia without behavioral disturbance (3) HTN (hypertension) Assessment/Plan: BP stable Cont asa/norvasc Code(s): I10 - ESSENTIAL (PRIMARY) HYPERTENSION (4) CAD (coronary artery disease) Assessment/Plan: Cont plavix Code(s): I25.10 - ATHSCL HEART DISEASE OF [place] CORONARY ARTERY W/O ANG PCTRS
[2016-10-15] MEDS: traMADol HCL 50 MG TABLET PO PRN (00:45)
[2016-10-15] MEDS: CLINDAMYCIN HCL 150 MG CAPSULE (FP) PO SCH ×3 (00:47→11:27)
[2016-10-15] MEDS ORDERED: ALPRAZolam 0.25 MG TABLET PO ONE (01:15)
[2016-10-15] MEDS ORDERED: PT OWN MED DRAWER 7, Y5N ONE (09:27)
[2016-10-15] MEDS: ASPIRIN 81 MG CHEWABLE TABLETS PO SCH (09:28)
[2016-10-15] MEDS: AMOX TR/POT CLAV 500MG/125MG TABLETS (FP) PO SCH (09:28)
[2016-10-15] MEDS: DONEPEZIL HCL 10 MG TABLET (FP) PO SCH (09:28)
[2016-10-15] MEDS: COLLAGENASE CLOSTRIDIUM HIST. 30 GRAMS TUBE TP SCH (09:29)
[2016-10-15] MEDS: amLODIPine BESYLATE 5 MG TABLET (FP) PO SCH (09:29)
[2016-10-15] MEDS: HEPARIN NA (PORCINE) 5,000 UNITS/ML 1ML VIAL SQ SCH (09:29)
[2016-10-15] MEDS: MEMANTINE HCL 5 MG TABLET (UD) PO SCH (09:29)
[2016-10-15] MEDS: CLOPIDOGREL BISULFATE 75 MG TABLET (FP) PO SCH (09:29)
[2016-10-15] MEDS: QUEtiapine FUMARATE 25 MG TABLET (FP) PO SCH (09:29)
[2016-10-15] MEDS: CYANOCOBALAMIN 1,000 MCG TABLET (FP) PO SCH (09:29)
--- NOTE | 2016-10-15 14:02 | PN ---
Progress Note, Physician History of Present Illness: stable no new issues - Objective Vital Signs: Vital Signs Temperature 98.4 F 10/15/16 06:00 Pulse Rate 78 10/15/16 06:00 Respiratory Rate 20 10/15/16 06:00 Blood Pressure 130/76 10/15/16 06:00 O2 Sat by Pulse Oximetry (%) 96 10/14/16 20:00 Constitutional: Yes: No Distress, Calm Cardiovascular: Yes: Regular Rate and Rhythm Respiratory: Yes: Regular, CTA Bilaterally Gastrointestinal: Yes: Normal Bowel Sounds, Soft Musculoskeletal: Yes: Other Extremities: Yes: Other Wound/Incision: Yes: Dressing Dry and Intact, Other Neurological: Yes: Alert, Oriented Psychiatric: Yes: Alert Labs: CBC, BMP 10/11/16 08:25 10/11/16 08:25 INR, PTT INR 1.10 (0.82-1.09) 10/04/16 17:50 Assessment/Plan patient with post angioplasty non healing Left heel ulcer for over a month. DM dementia cellulitis of the heel patient with significant vessel disease blood cx result noted send repeat blood cx plan continue po abx will need it for another 3 days patient doing well
[2016-10-15 14:14] VITALS: BP 104/58; PULSE 85; TEMP 97.6
--- NOTE | 2016-11-29 16:03 | CON.CARD ---
Consult Consult Specialty:: cardiology Reason for Consultation:: LE angiogram canceled due to development of sinus tachycardia while being prepared for study - History of Present Illness History of Present Illness: This is a 76 year old male with a history of Alzheimer's dementia, HTN, NIDDM, and dyslipidemia who presented today for ambulatory surgery. The patient has a chronic left heel ulcer for which [facility] is [facility]. He presented for angiogram today. While in the operating room and prior to the start of the procedure, he was given Versed and Fentanyl and subsequently developed wide complex tachycardia per the anesthesia record. PACU course was notable for: (1) EKG: Sinus rhythm with PACs, Q waves in V1 and V2 (also present on prior EKG of 10/07/2016) and TWI in I, aVL, V4-V6 which are new/more pronounced (2) Sustained sinus tachycardia up to 120bpm Recent Travel: None Social History: Lives at home with family Smoking: Never smoked Family History: Non-contributory to this admission Allergies No Known Allergies Allergy (Verified 11/29/16 12:58) - History Source History Provided By: Medical Record Limitations to Obtaining History: Dementia - Past Medical History [employer]: Yes: Alzheimer's, Dementia Cardio/Vascular: Yes: HTN, Hyperlipdemia Endocrine: Yes: Diabetes Mellitus - Past Surgical History Past Surgical History: Yes: None - Alcohol/Substance Use Hx Alcohol Use: No - Smoking History Smoking history: Never smoked Home Medications - Allergies Allergies/Adverse Reactions: Allergies Allergy/AdvReac Type Severity Reaction Status Date / Time No Known Allergies Allergy Verified 11/29/16 12:58 - Home Medications Home Medications: Ambulatory Orders Amlodipine Besylate [Norvasc -] 5 mg PO DAILY 10/04/16 Aspirin [ASA -] 81 mg PO DAILY 10/04/16 Clopidogrel Bisulfate [Plavix -] 75 mg PO DAILY 10/04/16 Cyanocobalamin (Vitamin B-12) [Vitamin B-12] 1,000 mcg PO DAILY 10/04/16 Donepezil HCl [Aricept -] 10 mg PO DAILY 10/04/16 Memantine HCl [Namenda -] 5 mg PO BID 10/04/16 Quetiapine Fumarate [Seroquel -] 25 mg PO BID 10/04/16 Quetiapine Fumarate [Seroquel -] 50 mg PO HS 10/04/16 Trazodone HCl 100 mg PO HS 10/04/16 Collagenase Clostridium Hist. [Santyl] 1 applic TP DAILY #90 oint...g. 11/11/16 Metformin HCl [Metformin HCl ER] 500 mg PO DAILY 11/26/16 Vital Signs: Vital Signs Temperature 97.6 F 10/15/16 10:00 Pulse Rate 85 10/15/16 10:00 Respiratory Rate 18 10/15/16 10:00 Blood Pressure 104/58 10/15/16 10:00 O2 Sat by Pulse Oximetry (%) 96 10/15/16 09:00 - Other Data Labs, Other Data: CBC, BMP 10/11/16 08:25 10/11/16 08:25 INR, PTT INR 1.10 (0.82-1.09) 10/04/16 17:50 Problem List - Problems (1) Diabetes Code(s): E11.9 - TYPE 2 DIABETES MELLITUS WITHOUT COMPLICATIONS (2) Open wound of left foot Code(s): S91.302A - UNSPECIFIED OPEN WOUND, LEFT FOOT, INITIAL ENCOUNTER (3) Tachycardia Assessment/Plan: EKG: F/u on telemetry. ECHO for LVEF, valve status. TSH; TNI. Hydration. Code(s): R00.0 - TACHYCARDIA, UNSPECIFIED (4) Dementia Code(s): F03.90 - UNSPECIFIED DEMENTIA WITHOUT BEHAVIORAL DISTURBANCE Qualifiers: Dementia type: unspecified type Dementia behavioral disturbance: without behavioral disturbance Qualified Code(s): F03.90 - Unspecified dementia without behavioral disturbance (5) HTN (hypertension) Code(s): I10 - ESSENTIAL (PRIMARY) HYPERTENSION
== END 2016-10-15 13:54 | disposition home health service (06) | DRG 364 ==
LOC: JER 17:05 → JERBED 19:40 → J5S 23:39
PROVIDERS: ADMIT Internal Medicine; ATTEND Internal Medicine
PROC: 04CL3ZZ Extirpation of Matter from Left Femoral Artery, Percutaneous Approach (ICD-10-PCS; 2016-10-08)
PROC: B40DYZZ Plain Radiography of Aorta and Bilateral Lower Extremity Arteries using Other Contrast (ICD-10-PCS; 2016-10-08)
PROC: 047L3ZZ Dilation of Left Femoral Artery, Percutaneous Approach (ICD-10-PCS; principal; 2016-10-08 09:30)
DX: E11.621 Type 2 diabetes mellitus with foot ulcer (principal); L97.429 Non-pressure chronic ulcer of left heel and midfoot with unspecified severity; L03.116 Cellulitis of left lower limb; I10 Essential (primary) hypertension; I25.10 Atherosclerotic heart disease of native coronary artery without angina pectoris; E78.5 Hyperlipidemia, unspecified; G30.9 Alzheimer's disease, unspecified; F02.80 Dementia in other diseases classified elsewhere, unspecified severity, without behavioral disturbance, psychotic disturbance, mood disturbance, and anxiety
CPT/HCPCS: 36415; 71010-TC; 75635-TC; 76000-TC; 80053; 81003; 83605; 85025; 85610; 85730; 87040; 93005; 93010; 94760; 97116-GP; 97162-PG; 99282-25; J1644

== ENCOUNTER 2016-11-29 04:55 | Inpatient (IN) | payer OTHER ==
[2016-11-29] MEDS ORDERED: LIDOCAINE HCL 1%, 10 MG/ML (20ML VIAL) ONE (12:14)
[2016-11-29] MEDS ORDERED: HEPARIN NA (PORCINE) 5,000 UNITS/ML 1ML VIAL ONE ×2 (12:14→13:55)
[2016-11-29] MEDS ORDERED: PROPOFOL 20 ML ONE (13:55)
[2016-11-29] MEDS ORDERED: LIDOCAINE HCL 2% (20ML MULTI-DOSE VIAL) NR ONE (13:55)
[2016-11-29] MEDS ORDERED: MIDAZOLAM HCL 2 MG/2 ML SINGLE DOSE VIAL ONE (13:56)
[2016-11-29] MEDS ORDERED: ceFAZolin SODIUM 1 GM VIAL ONE (14:18)
[2016-11-29] MEDS ORDERED: ceFAZolin SODIUM 1 GM VIAL IVPB ONE (14:18)
--- NOTE | 2016-11-29 14:42 | HP ---
CHIEF COMPLAINT: Tachycardia PCP: At [facility] HISTORY OF PRESENT ILLNESS: This is a 76 year old male with a history of Alzheimer's dementia, HTN, NIDDM, and dyslipidemia who presented today for ambulatory surgery. The patient has a chronic left heel ulcer for which [facility]. He presented for angiogram today. While in the operating room and prior to the start of the procedure, he was given Versed and Fentanyl and subsequently developed wide complex tachycardia per the anesthesia record. PACU course was notable for: (1) EKG: Sinus rhythm with PACs, Q waves in V1 and V2 (also present on prior EKG of 10/07/2016) and TWI in I, aVL, V4-V6 which are new/more pronounced (2) Sustained sinus tachycardia up to 120bpm Recent Travel: None Social History: Lives at home with family Smoking: Never smoked Family History: Non-contributory to this admission Allergies No Known Allergies Allergy (Verified 11/29/16 12:58) HOME MEDICATIONS: Home Medications Medication Instructions Recorded Amlodipine Besylate [Norvasc -] 5 mg PO DAILY 10/04/16 Aspirin [ASA -] 81 mg PO DAILY 10/04/16 Clopidogrel Bisulfate [Plavix -] 75 mg PO DAILY 10/04/16 Cyanocobalamin (Vitamin B-12) 1,000 mcg PO DAILY 10/04/16 [Vitamin B-12] Donepezil HCl [Aricept -] 10 mg PO DAILY 10/04/16 Memantine HCl [Namenda -] 5 mg PO BID 10/04/16 Quetiapine Fumarate [Seroquel -] 25 mg PO BID 10/04/16 Quetiapine Fumarate [Seroquel -] 50 mg PO HS 10/04/16 Trazodone HCl 100 mg PO HS 10/04/16 Collagenase Clostridium Hist. 1 applic TP DAILY #90 oint...g. 11/11/16 [Santyl] Metformin HCl [Metformin HCl ER] 500 mg PO DAILY 11/26/16 REVIEW OF SYSTEMS Patient has dementia and participation is limited. He denies all complaints including chest pain, shortness of breath, and palpitations.. PHYSICAL EXAMINATION Vital Signs - 24 hr 11/29/16 13:17 Temperature 98.2 F Pulse Rate 98 H Respiratory 18 Rate Blood Pressure 111/60 O2 Sat by Pulse 100 Oximetry (%) GENERAL: Awake, alert, and oriented x 1 (discussed with daughter Shannan and this is his baseline), in no acute distress. HEAD: Normal with no signs of trauma. EYES: Pupils equal, round and reactive to light, extraocular movements intact, sclera anicteric, conjunctiva clear. No lid lag. EARS, NOSE, THROAT: Ears normal, nares patent, oropharynx clear without exudates. Moist mucous membranes. NECK: Normal range of motion, supple without lymphadenopathy, JVD, or masses. LUNGS: Breath sounds equal, clear to auscultation bilaterally. No wheezes, and no crackles. No accessory muscle use. HEART: Regular rate and rhythm, normal S1 and S2 without murmur, rub or gallop. HR 90 during exam. ABDOMEN: Soft, nontender, not distended, normoactive bowel sounds, no guarding, no rebound, no masses. No hepatomegaly or splenomegaly. MUSCULOSKELETAL: Normal range of motion at all joints. No bony deformities or tenderness. No CVA tenderness. UPPER EXTREMITIES: 2+ pulses, warm, well-perfused. No cyanosis. No clubbing. No peripheral edema. LOWER EXTREMITIES: Warm, well-perfused. Bilateral calf tenderness. No peripheral edema. Left heel dressing clean and dry. PT pulse not palpable on left, 1+ on right. NEUROLOGICAL: Cranial nerves II-XII intact. Normal speech. PSYCHIATRIC: Cooperative. Good eye contact. Appropriate mood and affect. SKIN: Warm, dry, normal turgor, no rashes or lesions noted, normal capillary refill. Laboratory Results - last 24 hr 11/29/16 12:53 POC Glucometer 136 ASSESSMENT/PLAN: 76 year old male with tachycardia pre-operatively. Problem List - Problem (1) Tachycardia Assessment/Plan: -Monitor on telemetry -Serial troponins to rule out PR -Rectal temp now to rule out fever as cause of tachycardia -Blood cultures sent given foot wound -CXR now -Echo now -Bilateral LE duplex: limited mobility, bilateral calf tenderness -Send magnesium level now -Patient is on multiple QT-prolonging agents (donezepil, quetiapine), QTc here is 472; consider changing this regimen if remains prolonged Code(s): R00.0 - TACHYCARDIA, UNSPECIFIED (2) CAD (coronary artery disease) Assessment/Plan: -Workup as above -Continue ASA Code(s): I25.10 - ATHSCL HEART DISEASE OF [place] CORONARY ARTERY W/O ANG PCTRS (3) Dementia Assessment/Plan: -Continue Aricept, Namenda -Fall risk precautions Code(s): F03.90 - UNSPECIFIED DEMENTIA WITHOUT BEHAVIORAL DISTURBANCE Qualifiers: Dementia type: unspecified type Dementia behavioral disturbance: without behavioral disturbance Qualified Code(s): F03.90 - Unspecified dementia without behavioral disturbance (4) HTN (hypertension) Assessment/Plan: -At goal -Continue Norvasc Code(s): I10 - ESSENTIAL (PRIMARY) HYPERTENSION (5) Diabetes Assessment/Plan: -Hold Metformin while inpatient/planned angiogram -[facility] -Diabetic diet Code(s): E11.9 - TYPE 2 DIABETES MELLITUS WITHOUT COMPLICATIONS (6) Open wound of left foot Assessment/Plan: -Vascular following Code(s): S91.302A - UNSPECIFIED OPEN WOUND, LEFT FOOT, INITIAL ENCOUNTER (7) DVT prophylaxis Assessment/Plan: -h -PT Code(s): AIR3995 - Visit type - Emergency Visit Emergency Visit: Yes Care time: The patient presented to the Emergency Department on the above date and was hospitalized for further evaluation of their emergent condition. - New Patient This patient is new to me today: Yes Date on this admission: 11/29/16 - Critical Care Critical Care patient: No
--- NOTE | 2016-11-29 14:53 | PN ---
Progress Note (short form) - Note Progress Note: Vascular Surgery Pt came in for left lower ext angiogram today for left heel gangrene. However once on the operating table, he was having tachycardia up to 120, despite getting some sedation. Pt taken off the table, for admission and cardiology eval. Devan Kothari DO
[2016-11-29 15:54] LABS: ALBUMIN 3.3 g/dl (3.4-5.0); ANION GAP 7 (8-16); BILIRUBIN,TOTAL 0.4 mg/dL (0.2-1.0); CALCIUM 9.1 mg/dL (8.5-10.1); CO2 30 mmol/L (21-32); COCKROFT - GAULT 73.91; CREATININE 0.9 mg/dL (0.7-1.3); GLUCOSE,RANDOM 95 mg/dL (74-106); SGOT/AST 10 U/L (15-37); SGPT/ALT 12 U/L (12-78); TOT PROT 7.1 g/dl (6.4-8.2)
[2016-11-29 16:03] LABS: ALK PHOS 58 U/L (45-117); THYROID STIMULATING HORMONE 1.22 uIU/ml (0.358-3.74); TROPONIN I 0.04 ng/ml (0.00-0.05)
--- NOTE | 2016-11-29 16:08 | EKG ---
Test Reason : Blood Pressure : / mmHG Vent. Rate : 093 BPM Atrial Rate : 093 BPM P-R Int : 184 ms QRS Dur : 090 ms QT Int : 380 ms P-R-T Axes : 038 025 156 degrees QTc Int : 472 ms SINUS RHYTHM WITH PREMATURE ATRIAL COMPLEXES SEPTAL INFARCT (CITED ON OR BEFORE 07-OCT-2016) ABNORMAL ECG WHEN COMPARED WITH ECG OF 07-OCT-2016 17:51, T WAVE INVERSION NOW EVIDENT IN LATERAL LEADS Confirmed by NONA GONZALEZ MD ([id number]) on 11/29/2016 4:08:36 PM Referred By: Devan Kothari Confirmed By:NONA GONZALEZ MD
[2016-11-29 16:47] LABS: BASOPHIL 0.4 % (0-2.0); EOSINOPHIL 1.3 % (0-4.5); MCH 29.4 pg (25.7-33.7); MCHC 32.6 g/dl (32.0-35.9); NEUTROPHILS 74.8 % (42.8-82.8); PLATELET COUNT 290 K/MM3 (134-434); RDW 13.6 % (11.9-15.9); WHITE BLOOD COUNT 10.2 K/mm3 (4.0-10.0)
[2016-11-29 17:35] LABS: INR 1.17 (0.82-1.09); PROTHROMBIN TIME (PATIENT) 12.9 SEC (9.98-11.88)
[2016-11-29 17:57] LABS: TROPONIN I 0.04 ng/ml (0.00-0.05)
[2016-11-29] MEDS ORDERED: HEPARIN NA (PORCINE) 5,000 UNITS/ML 1ML VIAL SQ SCH (18:00)
[2016-11-29] MEDS: INSULIN SLIDING SCALE (NOVOLOG) 1 VIAL SQ SCH ×2 (18:24→21:08)
[2016-11-29] MEDS: MEMANTINE HCL 5 MG TABLET (UD) PO SCH (21:01)
[2016-11-29] MEDS: DOCUSATE SODIUM 100 MG CAPSULE (FP) PO SCH (21:01)
[2016-11-29] MEDS: traZODone HCL 50 MG TABLET (FP) PO SCH (21:01)
[2016-11-29] MEDS: QUEtiapine FUMARATE 50 MG TABLET PO SCH (21:01)
[2016-11-29] MEDS: HEPARIN NA (PORCINE) 5,000 UNITS/ML 1ML VIAL SQ SCH (21:54)
[2016-11-29] MEDS ORDERED: QUEtiapine FUMARATE 25 MG TABLET (FP) PO SCH (22:00)
[2016-11-30 01:01] VITALS: BMI 21.1
[2016-11-30] MEDS: HEPARIN NA (PORCINE) 5,000 UNITS/ML 1ML VIAL SQ SCH ×3 (05:42→21:01)
[2016-11-30] MEDS: DOCUSATE SODIUM 100 MG CAPSULE (FP) PO SCH ×3 (05:43→21:01)
[2016-11-30] MEDS: INSULIN SLIDING SCALE (NOVOLOG) 1 VIAL SQ SCH ×4 (06:26→22:53)
--- NOTE | 2016-11-30 06:41 | CON.CARD ---
Consult Consult Specialty:: CARDIOLOGY Reason for Consultation:: tachycardia while pt was being prepared for LE angiogram - History of Present Illness History of Present Illness: This is a 76 year old male (b. 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 The patient has a chronic left heel ulcer for which [facility] He presented for angiogram today. While in the operating room and prior to the start of the procedure, he was given Versed and Fentanyl and subsequently developed wide complex tachycardia per the anesthesia record. 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 Cardio/Vascular: Yes: HTN, Hyperlipdemia Renal/: No: Renal Inusuff Heme/Onc: Yes: Anemia Psych: Yes: Bipolar (Pt's daughter say he has dementia and ?manic depression) Endocrine: Yes: Diabetes Mellitus - Past Surgical History Past Surgical History: Yes: None - Alcohol/Substance Use Hx Alcohol Use: Yes - Smoking History Smoking history: Never smoked Have you smoked in the past 12 months: No Home Medications - Allergies Allergies/Adverse Reactions: Allergies Allergy/AdvReac Type Severity Reaction Status Date / Time No Known Allergies Allergy Verified 11/29/16 12:58 - Home Medications Home Medications: Ambulatory Orders Amlodipine Besylate [Norvasc -] 5 mg PO DAILY 10/04/16 Aspirin [ASA -] 81 mg PO DAILY 10/04/16 Clopidogrel Bisulfate [Plavix -] 75 mg PO DAILY 10/04/16 Cyanocobalamin (Vitamin B-12) [Vitamin B-12] 1,000 mcg PO DAILY 10/04/16 Donepezil HCl [Aricept -] 10 mg PO DAILY 10/04/16 Memantine HCl [Namenda -] 5 mg PO BID 10/04/16 Quetiapine Fumarate [Seroquel -] 25 mg PO BID 10/04/16 Quetiapine Fumarate [Seroquel -] 50 mg PO HS 10/04/16 Trazodone HCl 100 mg PO HS 10/04/16 Collagenase Clostridium Hist. [Santyl] 1 applic TP DAILY #90 oint...g. 11/11/16 Metformin HCl [Metformin HCl ER] 500 mg PO DAILY 11/26/16 Metoprolol Succinate [Toprol XL -] 25 mg PO DAILY #30 tab 12/02/16 Family Disease History - Family Disease History Family History: Denies (family (daughters) provided hx) Review of Systems - Review of Systems Constitutional: reports: Other Eyes: reports: No Symptoms HENT: reports: No Symptoms Neck: reports: No Symptoms Cardiovascular: reports: Edema Respiratory: reports: No Symptoms Gastrointestinal: reports: No Symptoms Genitourinary: reports: No Symptoms Breasts: reports: No Symptoms Reported Musculoskeletal: reports: No Symptoms Integumentary: reports: Wound (left foot) Neurological: reports: Weakness Psychiatric: reports: Other (dementia; ?manic/depression) - Risk Factors Known Risk Factors: Yes: Age, Gender, Hypertension Vital Signs: Vital Signs Temperature 98.7 F 11/30/16 05:18 Pulse Rate 97 H 11/30/16 05:18 Respiratory Rate 20 11/30/16 05:18 Blood Pressure 117/72 11/30/16 05:18 O2 Sat by Pulse Oximetry (%) 100 11/29/16 21:00 Constitutional: Yes: Calm Eyes: Yes: WNL HENT: Yes: WNL Neck: Yes: WNL Respiratory: Yes: WNL Gastrointestinal: Yes: WNL Cardiovascular: Yes: Pulse Irregular JVD: No Carotid Bruit: No PMI: Non-Displaced Heart Sounds: Yes: S1, S2 Musculoskeletal: Yes: WNL Extremities: Yes: Cool, Other Peripheral Pulses WNL: No Peripheral Pulses: 1+ Left Doralis Pedis Integumentary: Yes: Pressure Ulcer, Other Neurological: Yes: Confusion Psychiatric: Yes: Other - Other Data Labs, Other Data: CBC, BMP 11/29/16 16:09 11/29/16 14:45 INR, PTT INR 1.17 (0.82-1.09) H 05/19/17 16:09 Troponin, BNP 11/29/16 11/29/16 11/29/16 14:45 16:00 16:09 Troponin I 0.04 0.04 Cancelled B-Natriuretic Peptide 1614.43 H Troponin, BNP 11/29/16 11/29/16 11/29/16 14:45 16:00 16:09 Troponin I 0.04 0.04 Cancelled B-Natriuretic Peptide 1614.43 H Abnormal Lab Results 11/29/16 11/29/16 11/29/16 14:45 16:00 16:09 WBC 10.2 H RBC 3.64 L Hgb 10.7 L Hct 32.7 L INR Anion Gap 7 L AST 10 L D Creatine Kinase 31 L 32 L B-Natriuretic Peptide 1614.43 H Albumin 3.3 L 11/29/16 16:09 WBC RBC Hgb Hct INR 1.17 H Anion Gap AST Creatine Kinase B-Natriuretic Peptide Albumin Echo: Pending Ejection Fraction %: LVEF > or = 40 % Imaging - Results Chest X-ray: Image Reviewed (no acute pathology) EKG: Image Reviewed (sinus rhythm with APCs; ?septal infarct) Problem List - Problems (1) Diabetes Code(s): E11.9 - TYPE 2 DIABETES MELLITUS WITHOUT COMPLICATIONS (2) Open wound of left foot Assessment/Plan: For LE angiogram. Code(s): S91.302A - UNSPECIFIED OPEN WOUND, LEFT FOOT, INITIAL ENCOUNTER (3) Tachycardia Assessment/Plan: F/u on telemetry (post-Fentanyl and Versed). Pt has also been on quetiapine. Metoprolol ER. TSH WNL. F/u ECHO. Avoid dehydration. F/u anemia workup. Code(s): R00.0 - TACHYCARDIA, UNSPECIFIED (4) Dementia Assessment/Plan: Advanced dementia, per daughters, who have noticed the changes progressively worsening for several years. 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 He seldom recognizes family members, and is confused to person, place, time. Code(s): F03.90 - UNSPECIFIED DEMENTIA WITHOUT BEHAVIORAL DISTURBANCE Qualifiers: Dementia type: unspecified type Dementia behavioral disturbance: without behavioral disturbance Qualified Code(s): F03.90 - Unspecified dementia without behavioral disturbance (5) HTN (hypertension) Assessment/Plan: f/u serially; on metoprolol ER. Code(s): I10 - ESSENTIAL (PRIMARY) HYPERTENSION
[2016-11-30] MEDS: MEMANTINE HCL 5 MG TABLET (UD) PO SCH ×2 (09:50→21:01)
[2016-11-30] MEDS: CLOPIDOGREL BISULFATE 75 MG TABLET (FP) PO SCH (09:50)
[2016-11-30] MEDS: amLODIPine BESYLATE 5 MG TABLET (FP) PO SCH (09:50)
[2016-11-30] MEDS: QUEtiapine FUMARATE 25 MG TABLET (FP) PO SCH ×2 (09:50→18:22)
[2016-11-30] MEDS: CYANOCOBALAMIN 1,000 MCG TABLET (FP) PO SCH (09:50)
[2016-11-30] MEDS: DONEPEZIL HCL 10 MG TABLET (FP) PO SCH (09:50)
[2016-11-30] MEDS: COLLAGENASE CLOSTRIDIUM HIST. 30 GRAMS TUBE TP SCH ×2 (09:50→22:00)
[2016-11-30] MEDS: ASPIRIN 81 MG CHEWABLE TABLETS PO SCH (09:50)
[2016-11-30] MEDS ORDERED: PATIENT'S OWN MEDICATION (NON-FORMULARY) (Cyanocobalamin (Vitamin B-12) [Vitamin B-12] 1,0 PO SCH (10:00)
--- NOTE | 2016-11-30 10:26 | PN ---
Progress Note (short form) - Note Progress Note: currently asymptomatic. denies CP, SOB,fever, chills Current Medications Generic Name Dose Route Start Last Admin Trade Name Alisha PRN Reason Stop Dose Admin Amlodipine Besylate 5 mg 11/30/16 10:00 11/30/16 09:50 Norvasc - PO 5 mg DAILY LUCY Administration Aspirin 81 mg 11/30/16 10:00 11/30/16 09:50 Asa - PO 81 mg DAILY LUCY Administration Clopidogrel Bisulfate 75 mg 11/30/16 10:00 11/30/16 09:50 Plavix - PO 75 mg DAILY LUCY Administration Collagenase 1 applic 11/30/16 10:00 11/30/16 09:50 Santyl - TP Not Given DAILY LUCY Cyanocobalamin 1,000 mcg 11/30/16 10:00 11/30/16 09:50 Vitamin B12 - PO 1,000 mcg DAILY LUCY Administration Docusate Sodium 100 mg 11/29/16 22:00 11/30/16 05:43 Colace - PO 100 mg TID LUCY Administration Donepezil HCl 10 mg 11/30/16 10:00 11/30/16 09:50 Aricept - PO 10 mg DAILY LUCY Administration Heparin Sodium (Porcine) 5,000 unit 11/29/16 22:00 11/30/16 05:42 Heparin - SQ 5,000 unit TID LUCY Administration Insulin Aspart 1 vial 11/29/16 16:30 11/30/16 06:26 Novolog Vial Sliding Scale - SQ Not Given ACHS [facility] Protocol Memantine 5 mg 11/29/16 22:00 11/30/16 09:50 Namenda - PO 5 mg BID LUCY Administration Quetiapine Fumarate 50 mg 11/29/16 22:00 11/29/16 21:01 Seroquel - PO 50 mg HS LUCY Administration Quetiapine Fumarate 25 mg 11/30/16 10:00 11/30/16 09:50 Seroquel - PO 25 mg BID@1000,1800 LUCY Administration Trazodone HCl 100 mg 11/29/16 22:00 11/29/16 21:01 Desyrel - PO 100 mg HS LUCY Administration Last Vital Signs Temp Pulse Resp BP Pulse Ox 98.7 F 97 H 20 117/72 100 11/30/16 05:18 11/30/16 05:18 11/30/16 05:18 11/30/16 05:18 11/29/16 21:00 General NAD A&Ox1 (self) CV S1 S2 RRR no murmur/rub/gallop Lungs CTA B/L no wheezing/rales/rhonchi Extremities no pedal edema CBCD WBC 10.2 K/mm3 (4.0-10.0) H 11/29/16 16:09 RBC 3.64 M/mm3 (4.00-5.60) L 11/29/16 16:09 Hgb 10.7 GM/dL (11.7-16.9) L 11/29/16 16:09 Hct 32.7 % (35.4-49) L 11/29/16 16:09 MCV 90.0 fl (80-96) 11/29/16 16:09 MCHC 32.6 g/dl (32.0-35.9) 11/29/16 16:09 RDW 13.6 % (11.9-15.9) 11/29/16 16:09 Plt Count 290 K/MM3 (134-434) 11/29/16 16:09 MPV 9.0 fl (7.5-11.1) 11/29/16 16:09 CMP Sodium 140 mmol/L (136-145) 11/29/16 14:45 Potassium 4.3 mmol/L (3.5-5.1) 11/29/16 14:45 Chloride 103 mmol/L (98-107) 11/29/16 14:45 Carbon Dioxide 30 mmol/L (21-32) 11/29/16 14:45 Anion Gap 7 (8-16) L 11/29/16 14:45 BUN 13 mg/dL (7-18) D 11/29/16 14:45 Creatinine 0.9 mg/dL (0.7-1.3) 11/29/16 14:45 Creat Clearance w eGFR > 60 (>60) 11/29/16 14:45 Random Glucose 95 mg/dL (74-106) D 11/29/16 14:45 Calcium 9.1 mg/dL (8.5-10.1) 11/29/16 14:45 Total Bilirubin 0.4 mg/dL (0.2-1.0) 11/29/16 14:45 AST 10 U/L (15-37) L D 11/29/16 14:45 ALT 12 U/L (12-78) 11/29/16 14:45 Alkaline Phosphatase 58 U/L (45-117) 11/29/16 14:45 Total Protein 7.1 g/dl (6.4-8.2) 11/29/16 14:45 Albumin 3.3 g/dl (3.4-5.0) L 11/29/16 14:45 CARDIAC ENZYMES Creatine Kinase 32 IU/L (39-308) L 11/29/16 16:00 Troponin I 0.04 ng/ml (0.00-0.05) 11/29/16 16:00 A/P 76yo M with PMH Alzheimer, HTN, DM, dyslipidemia and PVD was admitted from hospital for behavioral medicine-surg after developing wide complex tachycardia during induction for angiogram 1. Wide complex V-tach- non-sustained Vtach noted on the monitor. asymptomatic per RN report during that time. cardiac markers neg x2. TSH WNL. will start low dose metoprolol and monitor. echo pending. may require ischemia eval. 2. Leukcytosis- no signs of infection. no repeat done. will hold on starting abx 3. Normocytic anemia- near Hgb baseline. no signs of bleeding. check iron studies. no indication for transfusion 4. DM- controlled. hold oral agents. iss, bgm 5. Alzheimers- at baseline per notes. cont seroquel/namenda 6. HTN- above goal. will start lopressor. monitor 7. PVD- angiogram on hold for now. can be re-scheduled as outpatient 8. DVT ppx- hep sq Visit type - Emergency Visit Emergency Visit: Yes ED Registration Date: 11/29/16 Care time: The patient presented to the Emergency Department on the above date and was hospitalized for further evaluation of their emergent condition. - New Patient This patient is new to me today: Yes Date on this admission: 11/30/16 - Critical Care Critical Care patient: No - Discharge Referral Referred to [facility] Med P.C.: No
--- NOTE | 2016-11-30 10:50 | PN ---
Progress Note, Physician History of Present Illness: seen and examined today in nad. pt awake and alert but confused. no complaints currently. - Current Medication List Current Medications: Active Medications Amlodipine Besylate (Norvasc -) 5 mg PO DAILY [facility] Last Admin: 11/30/16 09:50 Dose: 5 mg Aspirin (Asa -) 81 mg PO DAILY [facility] Last Admin: 11/30/16 09:50 Dose: 81 mg Clopidogrel Bisulfate (Plavix -) 75 mg PO DAILY [facility] Last Admin: 11/30/16 09:50 Dose: 75 mg Collagenase (Santyl -) 1 applic TP DAILY [facility] Last Admin: 11/30/16 09:50 Dose: Not Given Cyanocobalamin (Vitamin B12 -) 1,000 mcg PO DAILY [facility] Last Admin: 11/30/16 09:50 Dose: 1,000 mcg Docusate Sodium (Colace -) 100 mg PO TID [facility] Last Admin: 11/30/16 05:43 Dose: 100 mg Donepezil HCl (Aricept -) 10 mg PO DAILY [facility] Last Admin: 11/30/16 09:50 Dose: 10 mg Heparin Sodium (Porcine) (Heparin -) 5,000 unit SQ TID [facility] Last Admin: 11/30/16 05:42 Dose: 5,000 unit Insulin Aspart (Novolog Vial Sliding Scale -) [address] [facility] PRN Reason: Protocol Last Admin: 11/30/16 06:26 Dose: Not Given Memantine (Namenda -) 5 mg PO BID [facility] Last Admin: 11/30/16 09:50 Dose: 5 mg Quetiapine Fumarate (Seroquel -) 50 mg PO HS [facility] Last Admin: 11/29/16 21:01 Dose: 50 mg Quetiapine Fumarate (Seroquel -) 25 mg PO BID@1000,1800 [facility] Last Admin: 11/30/16 09:50 Dose: 25 mg Trazodone HCl (Desyrel -) 100 mg PO [facility] Last Admin: 11/29/16 21:01 Dose: 100 mg - Objective Vital Signs: Vital Signs Temperature 98.7 F 11/30/16 05:18 Pulse Rate 97 H 11/30/16 05:18 Respiratory Rate 20 11/30/16 05:18 Blood Pressure 117/72 11/30/16 05:18 O2 Sat by Pulse Oximetry (%) 100 11/29/16 21:00 Constitutional: Yes: Well Nourished, No Distress, Calm Eyes: Yes: WNL, Conjunctiva Clear, EOM Intact, PERRL HENT: Yes: WNL, Atraumatic, Normocephalic Neck: Yes: WNL, Supple, Trachea Midline Cardiovascular: Yes: Regular Rate and Rhythm, Murmur, S1, S2. No: Bradycardia, Tachycardia, Pulse Irregular, Bruit, JVD, Gallop, Rub, S3, S4, Varicosities Respiratory: Yes: Regular, CTA Bilaterally. No: Rales, Rhonchi, Wheezes Gastrointestinal: Yes: Normal Bowel Sounds, Soft. No: Distention, Tenderness Musculoskeletal: Yes: WNL Extremities: Yes: WNL Edema: No Peripheral Pulses WNL: No Neurological: Yes: Alert. No: Oriented Psychiatric: Yes: Alert. No: Oriented Labs: CBC, BMP 11/29/16 16:09 11/29/16 14:45 INR, PTT INR 1.17 (0.82-1.09) H 11/29/16 16:09 - ....Imaging Chest X-ray: Report Reviewed, Image Reviewed EKG: Report Reviewed, Image Reviewed Other: Report Reviewed, Image Reviewed (tele-nsr, apcs, sinus arrhythmia, 8 beats NSVT) Assessment/Plan 76 year old man with a history of Alzheimers dementia, HTN, DMII, HLD, PAD admitted with NSVT seen prior to a peripheral angiogram. Arrhythmia-appears to be NSVT on tele -echo showed normal LV and RV systolic function -mod , mod to severe AR -start bblocker, can start Toprol XL 25mg daily and uptitrate as needed -cont ASA, confirm indication for Plavix (PAD?) -cont tele monitoring -monitor electrolytes ensure K=4, Mg=2, need to check Mg level -TSH wnl -ischemic evaluation to be considered, need to consider nursing home risk vs benefit given severe dementia HTN-adequate -cont current medical regimen and add toprol as above HLD -statin if no contraindication
[2016-11-30] MEDS: METOPROLOL SUCCINATE 25 MG TAB.SR.24H (FP) PO SCH (12:30)
[2016-11-30] MEDS: traZODone HCL 50 MG TABLET (FP) PO SCH (21:01)
[2016-11-30] MEDS: QUEtiapine FUMARATE 50 MG TABLET PO SCH (21:01)
[2016-12-01] MEDS: COLLAGENASE CLOSTRIDIUM HIST. 30 GRAMS TUBE TP SCH ×2 (05:00→09:50)
[2016-12-01] MEDS: HEPARIN NA (PORCINE) 5,000 UNITS/ML 1ML VIAL SQ SCH ×3 (06:47→21:10)
[2016-12-01] MEDS: INSULIN SLIDING SCALE (NOVOLOG) 1 VIAL SQ SCH ×4 (06:47→21:19)
[2016-12-01] MEDS: DOCUSATE SODIUM 100 MG CAPSULE (FP) PO SCH ×3 (06:47→21:10)
--- NOTE | 2016-12-01 09:35 | PN ---
Progress Note, Physician History of Present Illness: seen and examined today in nad. awake and alert, confused. no new complaints. no overnight events. - Current Medication List Current Medications: Active Medications Amlodipine Besylate (Norvasc -) 5 mg PO DAILY [facility] Last Admin: 11/30/16 09:50 Dose: 5 mg Aspirin (Asa -) 81 mg PO DAILY [facility] Last Admin: 11/30/16 09:50 Dose: 81 mg Clopidogrel Bisulfate (Plavix -) 75 mg PO DAILY [facility] Last Admin: 11/30/16 09:50 Dose: 75 mg Collagenase (Santyl -) 1 applic TP DAILY [facility] Last Admin: 12/01/16 05:00 Dose: 1 applic Cyanocobalamin (Vitamin B12 -) 1,000 mcg PO DAILY [facility] Last Admin: 11/30/16 09:50 Dose: 1,000 mcg Docusate Sodium (Colace -) 100 mg PO TID [facility] Last Admin: 12/01/16 06:47 Dose: Not Given Donepezil HCl (Aricept -) 10 mg PO DAILY [facility] Last Admin: 11/30/16 09:50 Dose: 10 mg Heparin Sodium (Porcine) (Heparin -) 5,000 unit SQ TID [facility] Last Admin: 12/01/16 06:47 Dose: Not Given Insulin Aspart (Novolog Vial Sliding Scale -) 1 vial SQ [facility] PRN Reason: Protocol Last Admin: 12/01/16 06:47 Dose: Not Given Memantine (Namenda -) 5 mg PO BID [facility] Last Admin: 11/30/16 21:01 Dose: 5 mg Metoprolol Succinate (Toprol Xl -) 25 mg PO DAILY [facility] Last Admin: 11/30/16 12:30 Dose: 25 mg Quetiapine Fumarate (Seroquel -) 50 mg PO [facility] Last Admin: 11/30/16 21:01 Dose: 50 mg Quetiapine Fumarate (Seroquel -) 25 mg PO BID@1000,1800 [facility] Last Admin: 11/30/16 18:22 Dose: 25 mg Trazodone HCl (Desyrel -) 100 mg PO HS [facility] Last Admin: 11/30/16 21:01 Dose: 100 mg - Objective Vital Signs: Vital Signs Temperature 98 F 12/01/16 05:02 Pulse Rate 83 12/01/16 05:02 Respiratory Rate 18 12/01/16 05:02 Blood Pressure 131/69 05/21/17 05:02 O2 Sat by Pulse Oximetry (%) 100 11/30/16 20:18 Constitutional: Yes: Well Nourished, No Distress, Calm Eyes: Yes: Conjunctiva Clear, EOM Intact, PERRL HENT: Yes: Atraumatic, Normocephalic Neck: Yes: Supple, Trachea Midline Cardiovascular: Yes: Regular Rate and Rhythm, Murmur, S1, S2. No: Bradycardia, Tachycardia, Pulse Irregular, Bruit, JVD, Gallop, Rub, S3, S4, Varicosities Respiratory: Yes: Regular, CTA Bilaterally. No: Rales, Rhonchi, Wheezes Gastrointestinal: Yes: Normal Bowel Sounds, Soft. No: Distention, Tenderness Extremities: Yes: Delayed Capillary Refill Edema: No Peripheral Pulses WNL: No Neurological: Yes: Alert. No: Oriented Psychiatric: Yes: Alert. No: Oriented Labs: CBC, BMP 11/29/16 16:09 11/29/16 14:45 INR, PTT INR 1.17 (0.82-1.09) H 11/29/16 16:09 - ....Imaging Chest X-ray: Report Reviewed, Image Reviewed EKG: Report Reviewed, Image Reviewed Other: Report Reviewed, Image Reviewed (tele-nsr, apcs, sinus arrhythmia, brief PSVT, no further NSVT since yesterday) Assessment/Plan 76 year old man with a history of Alzheimers dementia, HTN, DMII, HLD, PAD admitted with NSVT seen prior to a peripheral angiogram. Arrhythmia-1 episode of NSVT on tele yesterday, none further thus far -echo showed normal LV and RV systolic function -mod , mod to severe AR -cont Toprol XL 25mg daily and uptitrate as needed -cont ASA, confirm indication for Plavix (PAD?) -cont tele monitoring -monitor electrolytes ensure K=4, Mg=2, need to check Mg level -cardiac enzymes wnl -TSH wnl -will tentatively plan for an ischemic evaluation with a persantine nuclear stress test tomorrow, need to consider [facility] risk vs benefit of additional work up given severe dementia HTN-adequate -cont current medical regimen HLD -statin if no contraindication
[2016-12-01] MEDS: QUEtiapine FUMARATE 25 MG TABLET (FP) PO SCH ×2 (09:46→17:07)
[2016-12-01] MEDS: ASPIRIN 81 MG CHEWABLE TABLETS PO SCH (09:46)
[2016-12-01] MEDS: METOPROLOL SUCCINATE 25 MG TAB.SR.24H (FP) PO SCH (09:47)
[2016-12-01] MEDS: CYANOCOBALAMIN 1,000 MCG TABLET (FP) PO SCH (09:47)
[2016-12-01] MEDS: amLODIPine BESYLATE 5 MG TABLET (FP) PO SCH (09:47)
[2016-12-01] MEDS: DONEPEZIL HCL 10 MG TABLET (FP) PO SCH (09:47)
[2016-12-01] MEDS: MEMANTINE HCL 5 MG TABLET (UD) PO SCH ×2 (09:47→21:11)
[2016-12-01] MEDS: CLOPIDOGREL BISULFATE 75 MG TABLET (FP) PO SCH (09:49)
--- NOTE | 2016-12-01 11:08 | PN ---
Physical Exam: SUBJECTIVE: He's confused and demented at baseline. Per nurse, he was agitated overnight and pulled off EKG leads. 1 episode of NSVT yesterday. OBJECTIVE: Vital Signs Period Temp Pulse Resp BP Sys/Mcdaniel Pulse Ox Last 24 Hr 97.8 F-98.4 F 83-106 18-18 111-144/60-93 100 GENERAL: Alert, awake but not oriented, demented and confused, in no acute distress. HEAD: NT, AC NECK: No mass no bruits LUNGS: CTAB HEART: RRR with missed beats, S1, S2 present, no rub or gallop. ABDOMEN: nt, nd, +bowel sounds, no guarding, no rebound EXTREMITIES: no edema. Laboratory Results - last 24 hr 11/30/16 11/30/16 11/30/16 11:28 16:30 22:52 POC Glucometer 211 183 184 Active Medications Generic Name Dose Route Start Last Admin Trade Name Freq PRN Reason Stop Dose Admin Amlodipine Besylate 5 mg 11/30/16 10:00 12/01/16 09:47 Norvasc - PO 5 mg DAILY LUCY Administration Aspirin 81 mg 11/30/16 10:00 12/01/16 09:46 Asa - PO 81 mg DAILY LUCY Administration Clopidogrel Bisulfate 75 mg 11/30/16 10:00 12/01/16 09:49 Plavix - PO 75 mg DAILY LUCY Administration Collagenase 1 applic 11/30/16 10:00 12/01/16 09:50 Santyl - TP Not Given DAILY LUCY Cyanocobalamin 1,000 mcg 11/30/16 10:00 12/01/16 09:47 Vitamin B12 - PO 1,000 mcg DAILY LUCY Administration Docusate Sodium 100 mg 11/29/16 22:00 12/01/16 06:47 Colace - PO Not Given TID LUCY Donepezil HCl 10 mg 11/30/16 10:00 12/01/16 09:47 Aricept - PO 10 mg DAILY LUCY Administration Heparin Sodium (Porcine) 5,000 unit 11/29/16 22:00 12/01/16 06:47 Heparin - SQ Not Given TID [facility] Insulin Aspart 1 vial 11/29/16 16:30 12/01/16 06:47 Novolog Vial Sliding Scale - SQ Not Given ACHS [facility] Protocol Memantine 5 mg 11/29/16 22:00 12/01/16 09:47 Namenda - PO 5 mg BID LUCY Administration Metoprolol Succinate 25 mg 11/30/16 11:00 12/01/16 09:47 Toprol Xl - PO 25 mg DAILY LUCY Administration Quetiapine Fumarate 50 mg 11/29/16 22:00 11/30/16 21:01 Seroquel - PO 50 mg HS LUCY Administration Quetiapine Fumarate 25 mg 11/30/16 10:00 12/01/16 09:46 Seroquel - PO 25 mg BID@1000,1800 LUCY Administration Trazodone HCl 100 mg 11/29/16 22:00 11/30/16 21:01 Desyrel - PO 100 mg HS LUCY Administration IMAGING ECHO on 11/30: normal LV and RV systolic function, mod , mod to severe AR Duplex of legs on 11/29: No DVT EKG on 11/29: sinus rhythm with PACs, septal infarct noted on 10/07, new T-wave inversion in lateral leads ASSESSMENT/PLAN: 76 yo M with Alzheimer's disease, HTN, DMII, HLD, PAD admitted to telemetry for NSVT. NSVT - Ischemic EKG change and valvular dysfunction on ECHO - Cont. toprolol XL, asa - Cont. cardiac monitoring - Daily BMP with Mg2+ - Persantine nuclear stress test tomorrow * NPO after midnight Normocytic anemia - At baseline - Cont. to monitor CBC HTN - Stable - Cont. current medications DM - Glc controlled - BGM and ISS FEN - IVF not indicated - Monitor K+ and Mg2+ daily - NPO after midnight Prophylaxis - DVT: heparin - GI: not indicated Disposition - Stress test tomorrow - Discharge if it's negative Code status - Full Visit type - Emergency Visit Emergency Visit: No - New Patient This patient is new to me today: Yes Date on this admission: 12/01/16 - Critical Care Critical Care patient: No - Discharge Referral Referred to [facility] Med P.C.: No
--- NOTE | 2016-12-01 12:29 | PN ---
Teaching Attending Note Name of Resident: Linus Leong ATTENDING PHYSICIAN STATEMENT I saw and evaluated the patient. I reviewed the resident's note and discussed the case with the resident. I agree with the resident's findings and plan as documented. SUBJECTIVE:asymptomatic. denies CP, SOB,fever, chills, N/V/C/D OBJECTIVE: Last Vital Signs Temp Pulse Resp BP Pulse Ox 98.2 F 83 18 129/60 100 12/01/16 09:38 12/01/16 09:38 12/01/16 09:38 12/01/16 09:38 11/30/16 20:18 General NAD A&O x1 (self) CV S1 S2 RRR + murmur no rub/gallop Lungs CTA B/L anteriorly ASSESSMENT AND PLAN: 76yo M with PMH Alzheimer, HTN, DM, dyslipidemia and PVD was admitted from [facility]- surg after developing wide complex tachycardia during induction for angiogram 1. Wide complex V-tach- no repeated episodes NSVT noted. will need to have ischemia eval and workup. NPO for NMST in the AM. will need to d/w family regarding goals of care however in light pt was going for angiogram will likely pursue aggressive management. cont low dose toprol 2. Leukcytosis- no signs of infection. no repeat done. will hold on starting abx 3. Normocytic anemia- near Hgb baseline. no signs of bleeding. check iron studies. no indication for transfusion 4. DM- controlled. hold oral agents. iss, bgm 5. Alzheimers- at baseline per notes. cont seroquel/namenda 6. HTN- improved. cont toprol. monitor 7. PVD- angiogram on hold for now. can be re-scheduled as outpatient 8. DVT ppx- hep sq 9. PT eval
[2016-12-01] MEDS: traZODone HCL 50 MG TABLET (FP) PO SCH (21:10)
[2016-12-01] MEDS: QUEtiapine FUMARATE 50 MG TABLET PO SCH (21:11)
[2016-12-01] MEDS ORDERED: HALOPERIDOL LACTATE 5 MG/ML IM ONE (21:16)
[2016-12-02] MEDS: DOCUSATE SODIUM 100 MG CAPSULE (FP) PO SCH ×4 (06:29→21:27)
[2016-12-02] MEDS: HEPARIN NA (PORCINE) 5,000 UNITS/ML 1ML VIAL SQ SCH ×4 (06:29→21:27)
[2016-12-02] MEDS: INSULIN SLIDING SCALE (NOVOLOG) 1 VIAL SQ SCH ×4 (06:29→21:27)
[2016-12-02 07:50] LABS: MCHC 33.3 g/dl (32.0-35.9); MEAN CELL VOLUME 89.9 fl (80-96); PLATELET COUNT 298 K/MM3 (134-434); RDW 13.4 % (11.9-15.9); WHITE BLOOD COUNT 8.1 K/mm3 (4.0-10.0)
[2016-12-02 08:45] LABS: CALCIUM 9.3 mg/dL (8.5-10.1); COCKROFT - GAULT 65.96; CREATININE 0.9 mg/dL (0.7-1.3); FERRITIN 99.286 ng/ml (16.4-293.9)
[2016-12-02] MEDS ORDERED: DEXTROSE 5% IVPB ONE (10:00)
[2016-12-02] MEDS ORDERED: WATER IVPB ONE (10:00)
[2016-12-02] MEDS ORDERED: DIPYRIDAMOLE STRESS TEST IVPB ONE (10:00)
[2016-12-02] MEDS ORDERED: PT OWN MED DRAWER 7, Y5N ONE (10:56)
[2016-12-02] MEDS: DONEPEZIL HCL 10 MG TABLET (FP) PO SCH (13:05)
[2016-12-02] MEDS: METOPROLOL SUCCINATE 25 MG TAB.SR.24H (FP) PO SCH (13:05)
[2016-12-02] MEDS: CLOPIDOGREL BISULFATE 75 MG TABLET (FP) PO SCH (13:05)
[2016-12-02] MEDS: MEMANTINE HCL 5 MG TABLET (UD) PO SCH ×3 (13:05→21:27)
[2016-12-02] MEDS: amLODIPine BESYLATE 5 MG TABLET (FP) PO SCH (13:06)
[2016-12-02] MEDS: CYANOCOBALAMIN 1,000 MCG TABLET (FP) PO SCH (13:06)
[2016-12-02] MEDS: QUEtiapine FUMARATE 25 MG TABLET (FP) PO SCH ×2 (13:06→18:12)
[2016-12-02] MEDS: ASPIRIN 81 MG CHEWABLE TABLETS PO SCH (13:06)
--- NOTE | 2016-12-02 14:44 | PN ---
Progress Note, Physician History of Present Illness: This is a 76 year old male (b. 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 The patient has a chronic left heel ulcer [facility] which [facility] He presented for angiogram today. While in the operating room and prior to the start of the procedure, he was given Versed and Fentanyl and subsequently developed wide complex tachycardia per the anesthesia record. PACU course was notable for: (1) EKG: Sinus rhythm with PACs, Q waves in V1 and V2 (also present on prior EKG of 10/07/2016) and TWI in I, aVL, V4-V6 which are new/more pronounced (2) Sustained sinus tachycardia up to 120bpm - Current Medication List Current Medications: Active Medications Amlodipine Besylate (Norvasc -) 5 mg PO DAILY [facility] Last Admin: 12/02/16 13:06 Dose: 5 mg Aspirin (Asa -) 81 mg PO DAILY [facility] Last Admin: 12/02/16 13:06 Dose: 81 mg Clopidogrel Bisulfate (Plavix -) 75 mg PO DAILY [facility] Last Admin: 12/02/16 13:05 Dose: 75 mg Collagenase (Santyl -) 1 applic TP DAILY [facility] Last Admin: 12/01/16 09:50 Dose: Not Given Cyanocobalamin (Vitamin B12 -) 1,000 mcg PO DAILY [facility] Last Admin: 12/02/16 13:06 Dose: 1,000 mcg Docusate Sodium (Colace -) 100 mg PO TID [facility] Last Admin: 12/02/16 06:29 Dose: 100 mg Donepezil HCl (Aricept -) 10 mg PO DAILY [facility] Last Admin: 12/02/16 13:05 Dose: 10 mg Heparin Sodium (Porcine) (Heparin -) 5,000 unit SQ TID [facility] Last Admin: 12/02/16 06:29 Dose: 5,000 unit Insulin Aspart (Novolog Vial Sliding Scale -) 1 vial SQ [facility] PRN Reason: Protocol Last Admin: 12/02/16 13:06 Dose: Not Given Memantine (Namenda -) 5 mg PO BID [facility] Last Admin: 12/02/16 13:05 Dose: 5 mg Metoprolol Succinate (Toprol Xl -) 25 mg PO DAILY [facility] Last Admin: 12/02/16 13:05 Dose: 25 mg Quetiapine Fumarate (Seroquel -) 50 mg PO [facility] Last Admin: 12/01/16 21:11 Dose: 50 mg Quetiapine Fumarate (Seroquel -) 25 mg PO BID@1000,1800 [facility] Last Admin: 12/02/16 13:06 Dose: 25 mg Trazodone HCl (Desyrel -) 100 mg PO [facility] Last Admin: 12/01/16 21:10 Dose: 100 mg - Objective Vital Signs: Vital Signs Temperature 97.8 F 12/02/16 09:00 Pulse Rate 88 12/02/16 09:00 Respiratory Rate 20 12/02/16 09:00 Blood Pressure 106/44 12/02/16 09:00 O2 Sat by Pulse Oximetry (%) 99 12/02/16 09:00 Eyes: Yes: WNL, Conjunctiva Clear, EOM Intact HENT: Yes: WNL, Atraumatic, Normocephalic Neck: Yes: WNL, Supple, Trachea Midline Cardiovascular: Yes: WNL, Regular Rate and Rhythm Respiratory: Yes: WNL, Regular, CTA Bilaterally Gastrointestinal: Yes: WNL, Normal Bowel Sounds Genitourinary: Yes: WNL Musculoskeletal: Yes: WNL Extremities: Yes: Other (toes gangrene/surgical dresing l l ext) Edema: No Integumentary: Yes: WNL Neurological: Yes: WNL, Alert, Oriented ...Motor Strength: WNL Psychiatric: Yes: WNL Labs: CBC, BMP 12/02/16 05:35 12/02/16 05:35 INR, PTT INR 1.17 (0.82-1.09) H 11/29/16 16:09 Assessment/Plan 76 year old man with a history of Alzheimers dementia, HTN, DMII, HLD, PAD admitted with NSVT seen prior to a peripheral angiogram. Arrhythmia-1 episode of NSVT on tele over the weekend, none further thus far -echo showed normal LV and RV systolic function -mod , mod to severe AR -cont Toprol XL 25mg daily and uptitrate as needed -cont ASA, confirm indication for Plavix (PAD?) -cont tele monitoring -monitor electrolytes ensure K=4, Mg=2, need to check Mg level -cardiac enzymes wnl -TSH wnl awaiting persantine mibi stress test HTN-adequate -cont current medical regimen HLD -statin if no contraindication
--- NOTE | 2016-12-02 15:50 | PN ---
Teaching Attending Note Name of Resident: Linus Leong ATTENDING PHYSICIAN STATEMENT I saw and evaluated the patient. I reviewed the resident's note and discussed the case with the resident. I agree with the resident's findings and plan as documented. SUBJECTIVE:resting comfortable OBJECTIVE: Last Vital Signs Temp Pulse Resp BP Pulse Ox 97.6 F 74 20 122/51 99 12/02/16 14:05 12/02/16 14:05 12/02/16 14:05 12/02/16 14:05 12/02/16 09:00 General NAD A&O x1 (self) CV S1 S2 RRR + murmur no rub/gallop Lungs CTA B/L anteriorly ASSESSMENT AND PLAN: 76yo M with PMH Alzheimer, HTN, DM, dyslipidemia and PVD was admitted from [facility]- surg after developing wide complex tachycardia during induction for angiogram 1. Wide complex V-tach- no repeated episodes NSVT noted. NMST + for ischemia. NPO tonight for cardiac cath in the AM. cont low dose toprol 2. Leukcytosis- no signs of infection.resolved. no indication for abx 3. Normocytic anemia- near Hgb baseline. no signs of bleeding. iron studies pending. no indication for transfusion 4. DM- controlled. hold oral agents. iss, bgm 5. Alzheimers- at baseline per notes. cont seroquel/namenda 6. HTN- improved. cont toprol. monitor 7. PVD- angiogram on hold for now. can be re-scheduled as outpatient 8. DVT ppx- hep sq 9. PT eval- recommends STACI which family is refusing. wants patient to come home on discharge. plan to send out for cardiac cath in AM
--- NOTE | 2016-12-02 17:23 | PN ---
Physical Exam: SUBJECTIVE: Confused and demented at baseline. Per nurse, no acute event overnight and no cardiac event noted on monitor either. OBJECTIVE: Vital Signs Period Temp Pulse Resp BP Sys/Mcdaniel Pulse Ox Last 24 Hr 97.5 F-97.8 F 74-90 20-20 101-140/44-90 99-99 GENERAL: Alert, awake but not oriented, demented and confused, in no acute distress. HEAD: NT, AC NECK: No mass no bruits LUNGS: CTAB HEART: irregular rate, S1, S2 present, no rub or gallop. ABDOMEN: nt, nd, +bowel sounds, no guarding, no rebound EXTREMITIES: no edema CBCD WBC 8.1 K/mm3 (4.0-10.0) 12/02/16 05:35 RBC 3.44 M/mm3 (4.00-5.60) L 12/02/16 05:35 Hgb 10.3 GM/dL (11.7-16.9) L 12/02/16 05:35 Hct 30.9 % (35.4-49) L 12/02/16 05:35 MCV 89.9 fl (80-96) 12/02/16 05:35 MCHC 33.3 g/dl (32.0-35.9) 12/02/16 05:35 RDW 13.4 % (11.9-15.9) 12/02/16 05:35 Plt Count 298 K/MM3 (134-434) 12/02/16 05:35 MPV 9.0 fl (7.5-11.1) 12/02/16 05:35 CMP Sodium 139 mmol/L (136-145) 12/02/16 05:35 Potassium 4.2 mmol/L (3.5-5.1) 12/02/16 05:35 Chloride 102 mmol/L (98-107) 12/02/16 05:35 Carbon Dioxide 29 mmol/L (21-32) 12/02/16 05:35 Anion Gap 8 (8-16) 12/02/16 05:35 BUN 23 mg/dL (7-18) H D 12/02/16 05:35 Creatinine 0.9 mg/dL (0.7-1.3) 12/02/16 05:35 Creat Clearance w eGFR > 60 (>60) 11/29/16 14:45 Calcium 9.3 mg/dL (8.5-10.1) 12/02/16 05:35 Total Bilirubin 0.4 mg/dL (0.2-1.0) 11/29/16 14:45 AST 10 U/L (15-37) L D 11/29/16 14:45 ALT 12 U/L (12-78) 11/29/16 14:45 Alkaline Phosphatase 58 U/L (45-117) 11/29/16 14:45 Total Protein 7.1 g/dl (6.4-8.2) 11/29/16 14:45 Albumin 3.3 g/dl (3.4-5.0) L 11/29/16 14:45 Active Medications Generic Name Dose Route Start Last Admin Trade Name Sathyaq PRN Reason Stop Dose Admin Amlodipine Besylate 5 mg 11/30/16 10:00 12/02/16 13:06 Norvasc - PO 5 mg DAILY [facility] Administration Aspirin 81 mg 11/30/16 10:00 12/02/16 13:06 Asa - PO 81 mg DAILY [facility] Administration Clopidogrel Bisulfate 75 mg 11/30/16 10:00 12/02/16 13:05 Plavix - PO 75 mg DAILY [facility] Administration Collagenase 1 applic 11/30/16 10:00 12/01/16 09:50 Santyl - TP Not Given DAILY [facility] Cyanocobalamin 1,000 mcg 11/30/16 10:00 12/02/16 13:06 Vitamin B12 - PO 1,000 mcg DAILY [facility] Administration Docusate Sodium 100 mg 11/29/16 22:00 12/02/16 15:17 Colace - PO Not Given TID [facility] Donepezil HCl 10 mg 11/30/16 10:00 12/02/16 13:05 Aricept - PO 10 mg DAILY [facility] Administration Heparin Sodium (Porcine) 5,000 unit 11/29/16 22:00 12/02/16 15:17 Heparin - SQ 5,000 unit TID [facility] Administration Insulin Aspart 1 vial 11/29/16 16:30 12/02/16 17:02 Novolog Vial Sliding Scale - SQ 4 units ACHS [facility] Administration Protocol Memantine 5 mg 11/29/16 22:00 12/02/16 13:05 Namenda - PO 5 mg BID [facility] Administration Metoprolol Succinate 25 mg 11/30/16 11:00 12/02/16 13:05 Toprol Xl - PO 25 mg DAILY [facility] Administration Quetiapine Fumarate 50 mg 11/29/16 22:00 12/01/16 21:11 Seroquel - PO 50 mg HS [facility] Administration Quetiapine Fumarate 25 mg 11/30/16 10:00 12/02/16 13:06 Seroquel - PO 25 mg BID@1000,1800 [facility] Administration Trazodone HCl 100 mg 11/29/16 22:00 12/01/16 21:10 Desyrel - PO 100 mg HS [facility] Administration IMAGING Stress test on 12/02: exercise result - overall negative persantine stress; nuclear result - moderate zone of anterolateral and anteroapical reversible defect of moderate intensity compatible with ischemia. Small to moderate inferolateral fixed defect suggest infarct. Severe anterolateral hypokinesia and inferolateral akinesia with calculated LV ejection fraction of 39% ECHO on 11/30: normal LV and RV systolic function, mod , mod to severe AR Duplex of legs on 11/29: No DVT EKG on 11/29: sinus rhythm with PACs, septal infarct noted on 10/07, new T-wave inversion in lateral leads ASSESSMENT/PLAN: 76 yo M with Alzheimer's disease, HTN, DMII, HLD, PAD admitted to telemetry for NSVT. NSVT - Stable - Ischemic EKG change and valvular dysfunction on ECHO - Persantine nuclear stress test demonstrates areas of infarcts and reversible ischemia - Cont. toprolol XL, asa - Cont. cardiac monitoring - Daily BMP with Mg2+ - Plan cardiac cath Normocytic anemia - At baseline - Cont. to monitor CBC HTN - Stable - Cont. current medications DM - Glc controlled - BGM and ISS FEN - IVF not indicated - Monitor K+ and Mg2+ daily - Chol/Fat/Sodium restrict diet Prophylaxis - DVT: heparin - GI: not indicated Disposition - Transfer out for cardiac cath tomorrow per Dr. Daly Code status - Full Visit type - Emergency Visit Emergency Visit: No - New Patient This patient is new to me today: No - Critical Care Critical Care patient: No
--- NOTE | 2016-12-02 19:44 | PN ---
Progress Note (short form) - Note Progress Note: Vascular Surgery Pt seen and examined. Positive stress test. For cardiac cath tom. Devan Kothari DO
[2016-12-02] MEDS: QUEtiapine FUMARATE 50 MG TABLET PO SCH ×2 (20:39→21:27)
[2016-12-02] MEDS: traZODone HCL 50 MG TABLET (FP) PO SCH ×2 (20:39→21:34)
[2016-12-02] MEDS ORDERED: oxyCODONE HCL 5 MG TABLET ONE (20:45)
[2016-12-02] MEDS: oxyCODONE HCL 5 MG TABLET PO PRN (21:05)
[2016-12-03 06:06] LABS: SERUM IRON 39 ug/dL (38-169); TOTAL IRON BINDING CAPACITY 178 ug/dL (250-450); UIBC 139 ug/dL (111-343)
[2016-12-03] MEDS: HEPARIN NA (PORCINE) 5,000 UNITS/ML 1ML VIAL SQ SCH ×4 (06:25→22:09)
[2016-12-03] MEDS: DOCUSATE SODIUM 100 MG CAPSULE (FP) PO SCH ×4 (06:25→22:08)
[2016-12-03] MEDS: INSULIN SLIDING SCALE (NOVOLOG) 1 VIAL SQ SCH ×4 (06:29→22:09)
[2016-12-03] MEDS: DONEPEZIL HCL 10 MG TABLET (FP) PO SCH (09:14)
[2016-12-03] MEDS: ASPIRIN 81 MG CHEWABLE TABLETS PO SCH (09:14)
[2016-12-03] MEDS: MEMANTINE HCL 5 MG TABLET (UD) PO SCH ×3 (09:14→22:09)
[2016-12-03] MEDS: CYANOCOBALAMIN 1,000 MCG TABLET (FP) PO SCH (09:15)
[2016-12-03] MEDS: QUEtiapine FUMARATE 25 MG TABLET (FP) PO SCH ×2 (09:15→17:24)
[2016-12-03] MEDS: METOPROLOL SUCCINATE 25 MG TAB.SR.24H (FP) PO SCH (09:15)
[2016-12-03] MEDS: CLOPIDOGREL BISULFATE 75 MG TABLET (FP) PO SCH (09:15)
[2016-12-03] MEDS: amLODIPine BESYLATE 5 MG TABLET (FP) PO SCH (09:15)
--- NOTE | 2016-12-03 11:22 | PN ---
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 The patient has a chronic left heel ulcer for which [facility]. He presented for angiogram today. While in the operating room and prior to the start of the procedure, he was given Versed and Fentanyl and subsequently developed wide complex tachycardia per the anesthesia record. PACU course was notable for: (1) EKG: Sinus rhythm with PACs, Q waves in V1 and V2 (also present on prior EKG of 10/07/2016) and TWI in I, aVL, V4-V6 which are new/more pronounced (2) Sustained sinus tachycardia up to 120bpm Recent Travel: None Social History: Lives at home with family Smoking: Never smoked - Current Medication List Current Medications: Active Medications Amlodipine Besylate (Norvasc -) 5 mg PO DAILY [facility] Last Admin: 12/03/16 09:15 Dose: 5 mg Aspirin (Asa -) 81 mg PO DAILY [facility] Last Admin: 12/03/16 09:14 Dose: 81 mg Clopidogrel Bisulfate (Plavix -) 75 mg PO DAILY [facility] Last Admin: 12/03/16 09:15 Dose: 75 mg Collagenase (Santyl -) 1 applic TP DAILY [facility] Last Admin: 12/01/16 09:50 Dose: Not Given Cyanocobalamin (Vitamin B12 -) 1,000 mcg PO DAILY [facility] Last Admin: 12/03/16 09:15 Dose: 1,000 mcg Docusate Sodium (Colace -) 100 mg PO TID [facility] Last Admin: 12/03/16 06:25 Dose: Not Given Donepezil HCl (Aricept -) 10 mg PO DAILY [facility] Last Admin: 12/03/16 09:14 Dose: 10 mg Heparin Sodium (Porcine) (Heparin -) 5,000 unit SQ TID [facility] Last Admin: 12/03/16 06:25 Dose: 5,000 unit Insulin Aspart (Novolog Vial Sliding Scale -) 1 vial SQ ACHS [facility] PRN Reason: Protocol Last Admin: 12/03/16 06:29 Dose: Not Given Memantine (Namenda -) 5 mg PO BID [facility] Last Admin: 12/03/16 09:14 Dose: 5 mg Metoprolol Succinate (Toprol Xl -) 25 mg PO DAILY [facility] Last Admin: 12/03/16 09:15 Dose: 25 mg Oxycodone HCl (Roxicodone -) 5 mg PO Q4H PRN PRN Reason: PAIN Last Admin: 12/02/16 21:05 Dose: 5 mg Quetiapine Fumarate (Seroquel -) 50 mg PO [facility] Last Admin: 12/02/16 21:27 Dose: Not Given Quetiapine Fumarate (Seroquel -) 25 mg PO BID@1000,1800 [facility] Last Admin: 12/03/16 09:15 Dose: 25 mg Trazodone HCl (Desyrel -) 100 mg PO [facility] Last Admin: 12/02/16 21:34 Dose: Not Given - Objective Vital Signs: Vital Signs Temperature 98.3 F 12/03/16 08:00 Pulse Rate 84 12/03/16 08:00 Respiratory Rate 20 12/03/16 09:00 Blood Pressure 141/75 12/03/16 08:00 O2 Sat by Pulse Oximetry (%) 100 12/03/16 09:00 Constitutional: Yes: Calm Eyes: Yes: WNL HENT: Yes: WNL Neck: Yes: WNL Cardiovascular: Yes: Pulse Irregular Respiratory: Yes: Regular Gastrointestinal: Yes: Soft Genitourinary: No: Anuria Musculoskeletal: Yes: Muscle Weakness Extremities: Yes: Cool Edema: No Peripheral Pulses WNL: No Peripheral Pulses: Left Doralis Pedis: 1+ Integumentary: Yes: Pressure Ulcer Wound/Incision: Yes: Other Neurological: Yes: Confusion Psychiatric: Yes: Other (dementia) Labs: CBC, BMP 12/02/16 05:35 12/02/16 05:35 INR, PTT INR 1.17 (0.82-1.09) H 11/29/16 16:09 Problem List - Problems (1) Diabetes Code(s): E11.9 - TYPE 2 DIABETES MELLITUS WITHOUT COMPLICATIONS (2) Open wound of left foot Code(s): S91.302A - UNSPECIFIED OPEN WOUND, LEFT FOOT, INITIAL ENCOUNTER (3) Tachycardia Assessment/Plan: EKG and telemetry: NSR; frequent APCs. Metoprolol ER was increased to 50 mg daily. Lisinopril 2.5 mg daily was started. Amlodipine was discontinued. Maintain hydreation; pain managament. TSH WNL. Code(s): R00.0 - TACHYCARDIA, UNSPECIFIED (4) Dementia Assessment/Plan: Advanced dementia, per daughters, who have noticed the changes progressively worsening for several years. 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 He seldom recognizes family members, and is confused to person, place, time. Code(s): F03.90 - UNSPECIFIED DEMENTIA WITHOUT BEHAVIORAL DISTURBANCE Qualifiers: Dementia type: unspecified type Dementia behavioral disturbance: without behavioral disturbance Qualified Code(s): F03.90 - Unspecified dementia without behavioral disturbance (5) HTN (hypertension) Code(s): I10 - ESSENTIAL (PRIMARY) HYPERTENSION (6) Positive cardiac stress test Assessment/Plan: Stress Persantine MIBI 05/04/2017: moderate areas of moderately intense myocardial ischemia of the anterolateral and anteroapical wall; small to moderate inferolateral area of infarct; LVEF 39%. A long discussion was had with pt's daughter regarding the benefits vs risks of undergoing coronary angiogram. The coronary angiogram was deferred. The pt's status and decision by family was discussed with Dr. Kothari, vascular surgeon; pt will undergo LE angiogram later this week. From a cardiac perspective, there are no absolute contraindications for Mr. Desirae Hutton to undergo the LE angiogram; he is considered to be at moderate risk for a perioperative cardiac event. Lisinopril 2.5 mg daily was started; metoprolol ER was increased to 50 mg dailyl ; amiodipine was discontinued. F/u HR and BP; F/u BUn/Cr, electrolytes. Maintain hydration. F/u lipid panel. Code(s): R94.39 - ABNORMAL RESULT OF OTHER CARDIOVASCULAR FUNCTION STUDY
--- NOTE | 2016-12-03 12:01 | PN ---
Progress Note (short form) - Note Progress Note: Vascular Surgery Spoke to Cardiology Will treat pt medically. Please optimize. Booked pt for angiogram on morning. Devan Kothari DO
[2016-12-03] MEDS ORDERED: INSULIN (NOVOLOG) ASPART 100 UNITS/ML 10ML VIAL ONE ×2 (12:07→12:34)
[2016-12-03] MEDS: COLLAGENASE CLOSTRIDIUM HIST. 30 GRAMS TUBE TP SCH (12:25)
[2016-12-03] MEDS ORDERED: LISINOPRIL 5 MG TABLET (FP) PO ONE (13:45)
[2016-12-03] MEDS ORDERED: METOPROLOL SUCCINATE 25 MG TAB.SR.24H (FP) PO ONE (13:45)
--- NOTE | 2016-12-03 13:53 | PN ---
Physical Exam: SUBJECTIVE: Confused and demented at baseline. Per nurse, no acute event overnight and no cardiac event noted on monitor. OBJECTIVE: Vital Signs Period Temp Pulse Resp BP Sys/Mcdaniel Pulse Ox Last 24 Hr 97.2 F-98.3 F 74-84 18-20 112-147/51-77 100-100 GENERAL: Alert, awake but not oriented, demented and confused, in no acute distress. HEAD: NT, AC NECK: No mass no bruits LUNGS: CTAB HEART: irregular rate, S1, S2 present, no rub or gallop. ABDOMEN: nt, nd, +bowel sounds, no guarding, no rebound EXTREMITIES: no edema Laboratory Results - last 24 hr 12/02/16 12/02/16 12/02/16 05:35 15:46 20:54 POC Glucometer 229 149 Iron 39 TIBC 178 L Iron Saturation 12/03/16 12/03/16 06:26 11:56 POC Glucometer 123 222 Iron TIBC Iron Saturation Active Medications Generic Name Dose Route Start Last Admin Trade Name Sathyaq PRN Reason Stop Dose Admin Aspirin 81 mg 11/30/16 10:00 12/03/16 09:14 Asa - PO 81 mg DAILY [facility] Administration Clopidogrel Bisulfate 75 mg 11/30/16 10:00 12/03/16 09:15 Plavix - PO 75 mg DAILY [facility] Administration Collagenase 1 applic 11/30/16 10:00 12/01/16 09:50 Santyl - TP Not Given DAILY [facility] Cyanocobalamin 1,000 mcg 11/30/16 10:00 12/03/16 09:15 Vitamin B12 - PO 1,000 mcg DAILY [facility] Administration Docusate Sodium 100 mg 11/29/16 22:00 12/03/16 06:25 Colace - PO Not Given TID [facility] Donepezil HCl 10 mg 11/30/16 10:00 12/03/16 09:14 Aricept - PO 10 mg DAILY [facility] Administration Heparin Sodium (Porcine) 5,000 unit 11/29/16 22:00 12/03/16 06:25 Heparin - SQ 5,000 unit TID [facility] Administration Insulin Aspart 1 vial 11/29/16 16:30 12/03/16 12:08 Novolog Vial Sliding Scale - SQ 4 units ACHS [facility]Y Administration Protocol Lisinopril 2.5 mg 12/03/16 13:45 Prinivil PO 12/03/16 13:46 ONCE ONE Lisinopril 2.5 mg 12/04/16 10:00 Prinivil PO DAILY [facility] Memantine 5 mg 11/29/16 22:00 12/03/16 09:14 Namenda - PO 5 mg BID [facility] Administration Metoprolol Succinate 25 mg 12/03/16 13:45 Toprol Xl - PO 12/03/16 13:46 ONCE ONE Metoprolol Succinate 50 mg 12/04/16 10:00 Toprol Xl - PO DAILY [facility] Oxycodone HCl 5 mg 12/02/16 20:41 12/02/16 21:05 Roxicodone - PO 5 mg Q4H PRN Administration PAIN Quetiapine Fumarate 50 mg 11/29/16 22:00 12/02/16 21:27 Seroquel - PO Not Given HS [facility]UCY Quetiapine Fumarate 25 mg 11/30/16 10:00 12/03/16 09:15 Seroquel - PO 25 mg BID@1000,1800 [facility] Administration Trazodone HCl 100 mg 11/29/16 22:00 12/02/16 21:34 Desyrel - PO Not Given HS [facility] IMAGING Stress test on 12/02: exercise result - overall negative persantine stress; nuclear result - moderate zone of anterolateral and anteroapical reversible defect of moderate intensity compatible with ischemia. Small to moderate inferolateral fixed defect suggest infarct. Severe anterolateral hypokinesia and inferolateral akinesia with calculated LV ejection fraction of 39% ECHO on 11/30: normal LV and RV systolic function, mod , mod to severe AR Duplex of legs on 11/29: No DVT EKG on 11/29: sinus rhythm with PACs, septal infarct noted on 10/07, new T-wave inversion in lateral leads ASSESSMENT/PLAN: 76 yo M with Alzheimer's disease, HTN, DMII, HLD, PAD admitted to telemetry for NSVT. NSVT - Stable - Ischemic EKG change and valvular dysfunction on ECHO - Persantine nuclear stress test demonstrates areas of infarcts and reversible ischemia * cardiac cath risks outweight benefits considering patient's baseline condition - Cont. toprolol XL, asa - Cont. cardiac monitoring Normocytic anemia - At baseline - Cont. to monitor CBC HTN - Stable - Cont. current medications DM - Glc controlled - BGM and ISS FEN - IVF not indicated - Monitor K+ and Mg2+ daily - Chol/Fat/Sodium restrict diet Prophylaxis - DVT: heparin - GI: not indicated Disposition - Dr. Kothari booked the patient for angiogram on - November discharge from medicine prospective Code status - Full Visit type - Emergency Visit Emergency Visit: No - New Patient This patient is new to me today: No - Critical Care Critical Care patient: No
--- NOTE | 2016-12-03 14:18 | PN ---
Teaching Attending Note Name of Resident: Linus Leong ATTENDING PHYSICIAN STATEMENT I saw and evaluated the patient. I reviewed the resident's note and discussed the case with the resident. I agree with the resident's findings and plan as documented. SUBJECTIVE: Patient is confused. OBJECTIVE: Vital Signs Period Temp Pulse Resp BP Sys/Mcdaniel Pulse Ox Last 24 Hr 97.2 F-98.3 F 74-84 18-20 112-147/51-77 100-100 HEART: S1 S2, RRR LUNGS: Clear ABDOMEN: Soft, non-distended, normal BS EXTREMITIES: No edema ASSESSMENT AND PLAN: This is a 76-year-old man with a history of Alzheimer dementia, HTN, type 2 DM, hyperlipidemia, PVD who was admitted for wide complex tachycardia that occurred during induction for angiogram. 1. NSVT - No further ventricular tachycardia - Persantine nuclear stress test shows moderate zone of moderate intensity anterolateral and anteroapical ischemia, small to moderate fixed inferolateral defect, severe anterolateral hypokinesia and inferolateral akinesia, LVEF 39% 2. CAD - Medical management - Continue aspirin, Plavix, Toprol XL, Lisinopril 3. Leukcytosis - Resolved 4. Anemia, likely secondary to chronic illness - Continue to monitor hemoglobin 5. Type 2 DM - Continue Novolog sliding scale 6. Alzheimer dementia - Continue Aricept, Namenda, Trazodone, Seroquel 7. HTN - Continue Toprol XL, Lisinopril 8. PAD - Plan for angiogram 12/05
--- NOTE | 2016-12-03 15:49 | EKG ---
Test Reason : Blood Pressure : / mmHG Vent. Rate : 081 BPM Atrial Rate : 127 BPM P-R Int : 192 ms QRS Dur : 088 ms QT Int : 386 ms P-R-T Axes : 020 057 140 degrees QTc Int : 448 ms SINUS TACHYCARDIA WITH BLOCKED PREMATURE ATRIAL COMPLEXES T WAVE ABNORMALITY, CONSIDER LATERAL ISCHEMIA ABNORMAL ECG WHEN COMPARED WITH ECG OF 29-NOV-2016 14:50, NO SIGNIFICANT CHANGE WAS FOUND Confirmed by SHANNAN REYES, RAJIV ([id number]) on 12/03/2016 3:49:13 PM Referred By: Devan Kothari Confirmed By:RAJIV CAMPBELL MD
[2016-12-03] MEDS ORDERED: IBUPROFEN 400 MG TABLET (FP) PO ONE (19:41)
[2016-12-03] MEDS: traZODone HCL 50 MG TABLET (FP) PO SCH ×2 (20:47→22:09)
[2016-12-03] MEDS: QUEtiapine FUMARATE 50 MG TABLET PO SCH ×2 (20:48→22:09)
[2016-12-04] MEDS: DOCUSATE SODIUM 100 MG CAPSULE (FP) PO SCH ×3 (06:20→22:05)
[2016-12-04] MEDS: HEPARIN NA (PORCINE) 5,000 UNITS/ML 1ML VIAL SQ SCH ×3 (06:21→22:05)
[2016-12-04] MEDS: INSULIN SLIDING SCALE (NOVOLOG) 1 VIAL SQ SCH ×4 (06:29→22:05)
[2016-12-04] MEDS: MEMANTINE HCL 5 MG TABLET (UD) PO SCH ×2 (09:24→22:05)
[2016-12-04] MEDS: COLLAGENASE CLOSTRIDIUM HIST. 30 GRAMS TUBE TP SCH (09:24)
[2016-12-04] MEDS: DONEPEZIL HCL 10 MG TABLET (FP) PO SCH (09:24)
[2016-12-04] MEDS: METOPROLOL SUCCINATE 50 MG TAB.SR.24H (FP) PO SCH (09:24)
[2016-12-04] MEDS: CYANOCOBALAMIN 1,000 MCG TABLET (FP) PO SCH (09:24)
[2016-12-04] MEDS: LISINOPRIL 5 MG TABLET (FP) PO SCH (09:24)
[2016-12-04] MEDS: QUEtiapine FUMARATE 25 MG TABLET (FP) PO SCH ×2 (09:24→18:42)
[2016-12-04] MEDS: CLOPIDOGREL BISULFATE 75 MG TABLET (FP) PO SCH (09:24)
[2016-12-04] MEDS: ASPIRIN 81 MG CHEWABLE TABLETS PO SCH (09:24)
--- NOTE | 2016-12-04 11:36 | PN ---
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 The patient has a chronic left heel ulcer for which [facility] He presented for angiogram today. While in the operating room and prior to the start of the procedure, he was given Versed and Fentanyl and subsequently developed wide complex tachycardia per the anesthesia record. PACU course was notable for: (1) EKG: Sinus rhythm with PACs, Q waves in V1 and V2 (also present on prior EKG of 10/07/2016) and TWI in I, aVL, V4-V6 which are new/more pronounced (2) Sustained sinus tachycardia up to 120bpm - Current Medication List Current Medications: Active Medications Aspirin (Asa -) 81 mg PO DAILY [facility] Last Admin: 12/04/16 09:24 Dose: 81 mg Clopidogrel Bisulfate (Plavix -) 75 mg PO DAILY [facility] Last Admin: 12/04/16 09:24 Dose: 75 mg Collagenase (Santyl -) 1 applic TP DAILY [facility] Last Admin: 12/04/16 09:24 Dose: 1 applic Cyanocobalamin (Vitamin B12 -) 1,000 mcg PO DAILY [facility] Last Admin: 12/04/16 09:24 Dose: 1,000 mcg Docusate Sodium (Colace -) 100 mg PO TID [facility] Last Admin: 12/04/16 06:20 Dose: Not Given Donepezil HCl (Aricept -) 10 mg PO DAILY [facility] Last Admin: 12/04/16 09:24 Dose: 10 mg Heparin Sodium (Porcine) (Heparin -) 5,000 unit SQ TID [facility] Last Admin: 12/04/16 06:21 Dose: Not Given Insulin Aspart (Novolog Vial Sliding Scale -) 1 vial SQ [facility] PRN Reason: Protocol Last Admin: 12/04/16 06:29 Dose: Not Given Lisinopril (Prinivil) 2.5 mg PO DAILY [facility] Last Admin: 12/04/16 09:24 Dose: 2.5 mg Memantine (Namenda -) 5 mg PO BID [facility] Last Admin: 12/04/16 09:24 Dose: 5 mg Metoprolol Succinate (Toprol Xl -) 50 mg PO DAILY [facility] Last Admin: 12/04/16 09:24 Dose: 50 mg Oxycodone HCl (Roxicodone -) 5 mg PO Q4H PRN PRN Reason: PAIN Last Admin: 12/02/16 21:05 Dose: 5 mg Quetiapine Fumarate (Seroquel -) 50 mg PO HS [facility] Last Admin: 12/03/16 22:09 Dose: Not Given Quetiapine Fumarate (Seroquel -) 25 mg PO BID@1000,1800 [facility] Last Admin: 12/04/16 09:24 Dose: 25 mg Trazodone HCl (Desyrel -) 100 mg PO HS [facility] Last Admin: 12/03/16 22:09 Dose: Not Given - Objective Vital Signs: Vital Signs Temperature 98.0 F 12/04/16 06:00 Pulse Rate 80 12/04/16 06:00 Respiratory Rate 20 12/04/16 06:00 Blood Pressure 126/70 12/04/16 06:00 O2 Sat by Pulse Oximetry (%) 100 12/03/16 21:00 Eyes: Yes: WNL, Conjunctiva Clear, EOM Intact HENT: Yes: WNL, Atraumatic, Normocephalic Neck: Yes: WNL, Supple, Trachea Midline Cardiovascular: Yes: WNL, Regular Rate and Rhythm Respiratory: Yes: WNL, Regular, CTA Bilaterally Gastrointestinal: Yes: WNL, Normal Bowel Sounds Genitourinary: Yes: WNL Musculoskeletal: Yes: WNL Extremities: Yes: Other (gangrene) Edema: No Integumentary: Yes: WNL Neurological: Yes: WNL, Alert, Oriented ...Motor Strength: WNL Psychiatric: Yes: WNL Labs: CBC, BMP 12/02/16 05:35 12/02/16 05:35 INR, PTT INR 1.17 (0.82-1.09) H 11/29/16 16:09 Assessment/Plan Problems (1) Diabetes Code(s): E11.9 - TYPE 2 DIABETES MELLITUS WITHOUT COMPLICATIONS (2) Open wound of left foot Code(s): S91.302A - UNSPECIFIED OPEN WOUND, LEFT FOOT, INITIAL ENCOUNTER (3) Tachycardia Assessment/Plan: EKG and telemetry: NSR; frequent APCs. Metoprolol ER was increased to 50 mg daily. Lisinopril 2.5 mg daily was started. Amlodipine was discontinued. Maintain hydreation; pain managament. TSH WNL. Code(s): R00.0 - TACHYCARDIA, UNSPECIFIED (4) Dementia Assessment/Plan: Advanced dementia, per daughters, who have noticed the changes progressively worsening for several years. 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 He seldom recognizes family members, and is confused to person, place, time. Code(s): F03.90 - UNSPECIFIED DEMENTIA WITHOUT BEHAVIORAL DISTURBANCE Qualifiers: Dementia type: unspecified type Dementia behavioral disturbance: without behavioral disturbance Qualified Code(s): F03.90 - Unspecified dementia without behavioral disturbance (5) HTN (hypertension) Code(s): I10 - ESSENTIAL (PRIMARY) HYPERTENSION (6) Positive cardiac stress test Assessment/Plan: Stress Persantine MIBI 05/04/2017: moderate areas of moderately intense myocardial ischemia of the anterolateral and anteroapical wall; small to moderate inferolateral area of infarct; LVEF 39%. Dr. Ward had a long discussion with pt's daughter regarding the benefits vs risks of undergoing coronary angiogram. The coronary angiogram was deferred. The pt's status and decision by family was discussed with Dr. Kothari, vascular surgeon; pt will undergo LE angiogram later this week. From a cardiac perspective, there are no absolute contraindications for Mr. Desirae Hutton to undergo the LE angiogram; he is considered to be at moderate risk for a perioperative cardiac event. Lisinopril 2.5 mg daily was started; metoprolol ER was increased to 50 mg dailyl ; amiodipine was discontinued. F/u HR and BP; F/u BUn/Cr, electrolytes. Maintain hydration. F/u lipid panel. Code(s): R94.39 - ABNORMAL RESULT OF OTHER CARDIOVASCULAR FUNCTION STUDY
--- NOTE | 2016-12-04 13:20 | SPA.PREOP ---
- PRE-OP NOTE Dx: Left heel gangrene Planned Procedure: LLE angiogram Surgeon: Devan Kothari Consent: To be obtained by surgeon after risks, benefits and alternatives explained to patient. Last Vital Signs Temp Pulse Resp BP Pulse Ox 98.6 F 78 18 134/72 99 12/04/16 11:00 12/04/16 11:00 12/04/16 11:00 12/04/16 11:00 12/04/16 11:00 Lab Results WBC 8.1 K/mm3 (4.0-10.0) 12/02/16 05:35 RBC 3.44 M/mm3 (4.00-5.60) L 12/02/16 05:35 Hgb 10.3 GM/dL (11.7-16.9) L 12/02/16 05:35 Hct 30.9 % (35.4-49) L 12/02/16 05:35 MCV 89.9 fl (80-96) 12/02/16 05:35 MCHC 33.3 g/dl (32.0-35.9) 12/02/16 05:35 RDW 13.4 % (11.9-15.9) 12/02/16 05:35 Plt Count 298 K/MM3 (134-434) 12/02/16 05:35 Sodium 139 mmol/L (136-145) 12/02/16 05:35 Potassium 4.2 mmol/L (3.5-5.1) 12/02/16 05:35 Chloride 102 mmol/L (98-107) 12/02/16 05:35 Carbon Dioxide 29 mmol/L (21-32) 12/02/16 05:35 Anion Gap 8 (8-16) 12/02/16 05:35 BUN 23 mg/dL (7-18) H D 12/02/16 05:35 Creatinine 0.9 mg/dL (0.7-1.3) 12/02/16 05:35 Random Glucose 145 mg/dL (74-106) H D 12/02/16 05:35 Calcium 9.3 mg/dL (8.5-10.1) 12/02/16 05:35 INR 1.17 (0.82-1.09) H 11/29/16 16:09 - ASSESSMENT/PLAN 1. Make NPO after midnight except po meds 2. GI/DVT PPX 3. Medical optimization / clearance 4. Cardio cleared with moderate risk 5. Type and screen ordered Visit type - Case Type Case Type: ED Admission - New patient This patient is new to me today: Yes Date on this admission: 12/04/16
--- NOTE | 2016-12-04 13:57 | PN ---
Physical Exam: SUBJECTIVE: No acute event overnight. OBJECTIVE: Vital Signs Period Temp Pulse Resp BP Sys/Mcdaniel Pulse Ox Last 24 Hr 97.8 F-98.8 F 77-86 18-20 99-134/55-78 99-100 GENERAL: Alert, awake but not oriented, demented and confused, in no acute distress. HEAD: NT, AC NECK: No mass no bruits LUNGS: CTAB HEART: irregular rate, S1, S2 present, no rub or gallop. ABDOMEN: nt, nd, +bowel sounds, no guarding, no rebound EXTREMITIES: no edema Laboratory Results - last 24 hr 12/02/16 12/03/16 12/03/16 05:35 15:46 20:49 POC Glucometer 161 191 Triglycerides 82 Cholesterol 153 Total LDL Cholesterol 109 H HDL Cholesterol 37 L 12/04/16 12/04/16 06:22 11:42 POC Glucometer 133 225 Triglycerides Cholesterol Total LDL Cholesterol HDL Cholesterol Active Medications Generic Name Dose Route Start Last Admin Trade Name Freq PRN Reason Stop Dose Admin Aspirin 81 mg 11/30/16 10:00 12/04/16 09:24 Asa - PO 81 mg DAILY [facility] Administration Clopidogrel Bisulfate 75 mg 11/30/16 10:00 12/04/16 09:24 Plavix - PO 75 mg DAILY [facility] Administration Collagenase 1 applic 11/30/16 10:00 12/04/16 09:24 Santyl - TP 1 applic DAILY [facility] Administration Cyanocobalamin 1,000 mcg 11/30/16 10:00 12/04/16 09:24 Vitamin B12 - PO 1,000 mcg DAILY [facility] Administration Docusate Sodium 100 mg 11/29/16 22:00 12/04/16 06:20 Colace - PO Not Given TID [facility] Donepezil HCl 10 mg 11/30/16 10:00 12/04/16 09:24 Aricept - PO 10 mg DAILY [facility] Administration Heparin Sodium (Porcine) 5,000 unit 11/29/16 22:00 12/04/16 06:21 Heparin - SQ Not Given TID [facility] Insulin Aspart 1 vial 11/29/16 16:30 12/04/16 11:47 Novolog Vial Sliding Scale - SQ 4 units ACHS [facility] Administration Protocol Lisinopril 2.5 mg 12/04/16 10:00 12/04/16 09:24 Prinivil PO 2.5 mg DAILY [facility] Administration Memantine 5 mg 11/29/16 22:00 12/04/16 09:24 Namenda - PO 5 mg BID [facility] Administration Metoprolol Succinate 50 mg 12/04/16 10:00 12/04/16 09:24 Toprol Xl - PO 50 mg DAILY [facility] Administration Oxycodone HCl 5 mg 12/02/16 20:41 12/02/16 21:05 Roxicodone - PO 5 mg Q4H PRN Administration PAIN Quetiapine Fumarate 50 mg 11/29/16 22:00 12/03/16 22:09 Seroquel - PO Not Given HS [facility] Quetiapine Fumarate 25 mg 11/30/16 10:00 12/04/16 09:24 Seroquel - PO 25 mg BID@1000,1800 [facility] Administration Trazodone HCl 100 mg 11/29/16 22:00 12/03/16 22:09 Desyrel - PO Not Given HS [facility] IMAGING Stress test on 12/02: exercise result - overall negative persantine stress; nuclear result - moderate zone of anterolateral and anteroapical reversible defect of moderate intensity compatible with ischemia. Small to moderate inferolateral fixed defect suggest infarct. Severe anterolateral hypokinesia and inferolateral akinesia with calculated LV ejection fraction of 39% ECHO on 11/30: normal LV and RV systolic function, mod , mod to severe AR Duplex of legs on 11/29: No DVT EKG on 11/29: sinus rhythm with PACs, septal infarct noted on 10/07, new T-wave inversion in lateral leads ASSESSMENT/PLAN: 76 yo M with Alzheimer's disease, HTN, DMII, HLD, PAD admitted to telemetry for NSVT. NSVT - Stable - Cont. toprolol XL, asa - Cont. cardiac monitoring Normocytic anemia - At baseline - Cont. to monitor CBC HTN - Stable - Cont. current medications DM - Glc controlled - BGM and ISS FEN - IVF not indicated - Lytes normal - Chol/Fat/Sodium restrict diet Prophylaxis - DVT: heparin - GI: not indicated Disposition - Angiogram on - November discharge from medicine prospective Code status - Full Visit type - Emergency Visit Emergency Visit: No - New Patient This patient is new to me today: No - Critical Care Critical Care patient: No
--- NOTE | 2016-12-04 16:48 | PN ---
Teaching Attending Note Name of Resident: Linus Leong ATTENDING PHYSICIAN STATEMENT I saw and evaluated the patient. I reviewed the resident's note and discussed the case with the resident. I agree with the resident's findings and plan as documented. SUBJECTIVE: Patient appears comfortable. He is confused. OBJECTIVE: Vital Signs Period Temp Pulse Resp BP Sys/Mcdaniel Pulse Ox Last 24 Hr 97.8 F-98.8 F 75-86 18-20 99-134/55-78 99-100 HEART: S1 S2, RRR LUNGS: Clear ABDOMEN: Soft, non-distended, normal BS EXTREMITIES: No edema, gangrene of left heel and left 1st toe ASSESSMENT AND PLAN: This is a 76-year-old man with a history of Alzheimer dementia, HTN, type 2 DM, hyperlipidemia, PVD who was admitted for wide complex tachycardia that occurred during induction for angiogram. 1. NSVT - No further ventricular tachycardia - Persantine nuclear stress test shows moderate zone of moderate intensity anterolateral and anteroapical ischemia, small to moderate fixed inferolateral defect, severe anterolateral hypokinesia and inferolateral akinesia, LVEF 39% 2. CAD - Medical management - Continue aspirin, Plavix, Toprol XL, Lisinopril 3. Leukcytosis - Resolved 4. Anemia, likely secondary to chronic illness - Continue to monitor hemoglobin 5. Type 2 DM - Continue Novolog sliding scale 6. Alzheimer dementia - Continue Aricept, Namenda, Trazodone, Seroquel 7. HTN - Continue Toprol XL, Lisinopril 8. PAD - Plan for angiogram 12/05
[2016-12-04] MEDS: traZODone HCL 50 MG TABLET (FP) PO SCH (22:04)
[2016-12-04] MEDS: oxyCODONE HCL 5 MG TABLET PO PRN (22:04)
[2016-12-04] MEDS: QUEtiapine FUMARATE 50 MG TABLET PO SCH (22:05)
[2016-12-05 05:13] LABS: TROPONIN I < 0.02 ng/ml (0.00-0.05)
[2016-12-05] MEDS: DOCUSATE SODIUM 100 MG CAPSULE (FP) PO SCH ×3 (06:25→21:08)
[2016-12-05] MEDS: HEPARIN NA (PORCINE) 5,000 UNITS/ML 1ML VIAL SQ SCH ×3 (06:25→21:07)
[2016-12-05] MEDS: INSULIN SLIDING SCALE (NOVOLOG) 1 VIAL SQ SCH ×4 (06:25→23:01)
[2016-12-05] MEDS ORDERED: HEPARIN NA (PORCINE) 5,000 UNITS/ML 1ML VIAL ONE ×2 (08:25→13:44)
[2016-12-05] MEDS ORDERED: LIDOCAINE HCL 1%, 10 MG/ML (20ML VIAL) ONE (08:25)
--- NOTE | 2016-12-05 08:34 | PN ---
Physical Exam: SUBJECTIVE: Agitated overnight, pulled dressing off and tried to get out of bed, no acute cardiac event on monitor. OBJECTIVE: Vital Signs Period Temp Pulse Resp BP Sys/Mcdaniel Pulse Ox Last 24 Hr 98.1 F-98.6 F 75-82 18-20 113-134/50-72 99-99 GENERAL: Alert, awake but not oriented, demented and confused, in no acute distress. HEAD: NT, AC NECK: No mass no bruits LUNGS: CTAB HEART: irregular rate, S1, S2 present, no rub or gallop. ABDOMEN: nt, nd, +bowel sounds, no guarding, no rebound EXTREMITIES: no edema Laboratory Results - last 24 hr 12/02/16 12/04/16 12/04/16 05:35 11:42 13:33 POC Glucometer 225 Magnesium Creatine Kinase Troponin I Triglycerides 82 Cholesterol 153 Total LDL Cholesterol 109 H HDL Cholesterol 37 L Blood Type AB NEGATIVE Antibody Screen Negative 12/04/16 12/04/16 12/04/16 13:33 15:38 21:58 POC Glucometer 243 242 Magnesium Creatine Kinase Troponin I Triglycerides Cholesterol Total LDL Cholesterol HDL Cholesterol Blood Type AB NEGATIVE Antibody Screen 12/05/16 12/05/16 04:30 06:24 POC Glucometer 146 Magnesium 2.0 Creatine Kinase 53 Troponin I < 0.02 D Triglycerides Cholesterol Total LDL Cholesterol HDL Cholesterol Blood Type Antibody Screen Active Medications Generic Name Dose Route Start Last Admin Trade Name Freq PRN Reason Stop Dose Admin Aspirin 81 mg 11/30/16 10:00 12/04/16 09:24 Asa - PO 81 mg DAILY [facility] Administration Clopidogrel Bisulfate 75 mg 11/30/16 10:00 12/04/16 09:24 Plavix - PO 75 mg DAILY [facility] Administration Collagenase 1 applic 11/30/16 10:00 12/04/16 09:24 Santyl - TP 1 applic DAILY [facility] Administration Cyanocobalamin 1,000 mcg 11/30/16 10:00 12/04/16 09:24 Vitamin B12 - PO 1,000 mcg DAILY [facility] Administration Docusate Sodium 100 mg 11/29/16 22:00 12/05/16 06:25 Colace - PO Not Given TID [facility] Donepezil HCl 10 mg 11/30/16 10:00 12/04/16 09:24 Aricept - PO 10 mg DAILY [facility] Administration Heparin Sodium (Porcine) 5,000 unit 11/29/16 22:00 12/05/16 06:25 Heparin - SQ Not Given TID [facility] Insulin Aspart 1 vial 11/29/16 16:30 12/05/16 06:25 Novolog Vial Sliding Scale - SQ Not Given ACHS [facility] Protocol Lisinopril 2.5 mg 12/04/16 10:00 12/04/16 09:24 Prinivil PO 2.5 mg DAILY [facility] Administration Memantine 5 mg 11/29/16 22:00 12/04/16 22:05 Namenda - PO 5 mg BID [facility] Administration Metoprolol Succinate 50 mg 12/04/16 10:00 12/04/16 09:24 Toprol Xl - PO 50 mg DAILY [facility] Administration Oxycodone HCl 5 mg 12/02/16 20:41 12/04/16 22:04 Roxicodone - PO 5 mg Q4H PRN Administration PAIN Quetiapine Fumarate 50 mg 11/29/16 22:00 12/04/16 22:05 Seroquel - PO 50 mg HS [facility] Administration Quetiapine Fumarate 25 mg 11/30/16 10:00 12/04/16 18:42 Seroquel - PO 25 mg BID@1000,1800 [facility] Administration Trazodone HCl 100 mg 11/29/16 22:00 12/04/16 22:04 Desyrel - PO 100 mg HS [facility] Administration IMAGING Stress test on 12/02: exercise result - overall negative persantine stress; nuclear result - moderate zone of anterolateral and anteroapical reversible defect of moderate intensity compatible with ischemia. Small to moderate inferolateral fixed defect suggest infarct. Severe anterolateral hypokinesia and inferolateral akinesia with calculated LV ejection fraction of 39% ECHO on 11/30: normal LV and RV systolic function, mod , mod to severe AR Duplex of legs on 11/29: No DVT EKG on 11/29: sinus rhythm with PACs, septal infarct noted on 10/07, new T-wave inversion in lateral leads ASSESSMENT/PLAN: 76 yo M with Alzheimer's disease, HTN, DMII, HLD, PAD admitted to telemetry for NSVT. Left heel gangrene - Angiogram scheduled this AM NSVT - Stable - Cont. toprolol XL, asa - Cont. cardiac monitoring Normocytic anemia - At baseline - Cont. to monitor CBC HTN - Stable - Cont. current medications DM - Glc controlled - BGM and ISS FEN - IVF not indicated - Lytes normal - Chol/Fat/Sodium restrict diet Prophylaxis - DVT: heparin - GI: not indicated Disposition - May discharge from medicine prospective Code status - Full Visit type - Emergency Visit Emergency Visit: No - New Patient This patient is new to me today: No - Critical Care Critical Care patient: No
[2016-12-05] MEDS: ASPIRIN 81 MG CHEWABLE TABLETS PO SCH (09:44)
[2016-12-05] MEDS: CLOPIDOGREL BISULFATE 75 MG TABLET (FP) PO SCH (09:45)
[2016-12-05] MEDS: DONEPEZIL HCL 10 MG TABLET (FP) PO SCH (09:45)
[2016-12-05] MEDS: LISINOPRIL 5 MG TABLET (FP) PO SCH (09:45)
[2016-12-05] MEDS: METOPROLOL SUCCINATE 50 MG TAB.SR.24H (FP) PO SCH (09:45)
[2016-12-05] MEDS: MEMANTINE HCL 5 MG TABLET (UD) PO SCH ×2 (09:45→21:09)
[2016-12-05] MEDS: QUEtiapine FUMARATE 25 MG TABLET (FP) PO SCH ×2 (09:45→18:03)
[2016-12-05] MEDS: CYANOCOBALAMIN 1,000 MCG TABLET (FP) PO SCH (09:45)
--- NOTE | 2016-12-05 10:18 | PN ---
Progress Note, Physician Chief Complaint: Pt OOB in chair; pleasant; confused. 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 The patient has a chronic left heel ulcer for which [facility]. He presented for angiogram today. While in the operating room and prior to the start of the procedure, he was given Versed and Fentanyl and subsequently developed wide complex tachycardia per the anesthesia record. PACU course was notable for: (1) EKG: Sinus rhythm with PACs, Q waves in V1 and V2 (also present on prior EKG of 10/07/2016) and TWI in I, aVL, V4-V6 which are new/more pronounced (2) Sustained sinus tachycardia up to 120bpm Recent Travel: None Social History: Lives at home with family Smoking: Never smoked - Current Medication List Current Medications: Active Medications Aspirin (Asa -) 81 mg PO DAILY [facility] Last Admin: 12/05/16 09:44 Dose: 81 mg Clopidogrel Bisulfate (Plavix -) 75 mg PO DAILY [facility] Last Admin: 12/05/16 09:45 Dose: 75 mg Collagenase (Santyl -) 1 applic TP DAILY [facility] Last Admin: 12/04/16 09:24 Dose: 1 applic Cyanocobalamin (Vitamin B12 -) 1,000 mcg PO DAILY [facility] Last Admin: 12/05/16 09:45 Dose: 1,000 mcg Docusate Sodium (Colace -) 100 mg PO TID [facility] Last Admin: 12/05/16 06:25 Dose: Not Given Donepezil HCl (Aricept -) 10 mg PO DAILY [facility] Last Admin: 12/05/16 09:45 Dose: 10 mg Heparin Sodium (Porcine) (Heparin -) 5,000 unit SQ TID [facility] Last Admin: 12/05/16 06:25 Dose: Not Given Insulin Aspart (Novolog Vial Sliding Scale -) 1 vial SQ ACHS [facility] PRN Reason: Protocol Last Admin: 12/05/16 06:25 Dose: Not Given Lisinopril (Prinivil) 2.5 mg PO DAILY [facility] Last Admin: 12/05/16 09:45 Dose: Not Given Memantine (Namenda -) 5 mg PO BID [facility] Last Admin: 12/05/16 09:45 Dose: 5 mg Metoprolol Succinate (Toprol Xl -) 50 mg PO DAILY [facility] Last Admin: 12/05/16 09:45 Dose: Not Given Oxycodone HCl (Roxicodone -) 5 mg PO Q4H PRN PRN Reason: PAIN Last Admin: 12/04/16 22:04 Dose: 5 mg Quetiapine Fumarate (Seroquel -) 50 mg PO [facility] Last Admin: 12/04/16 22:05 Dose: 50 mg Quetiapine Fumarate (Seroquel -) 25 mg PO BID@1000,1800 [facility] Last Admin: 12/05/16 09:45 Dose: 25 mg Trazodone HCl (Desyrel -) 100 mg PO [facility] Last Admin: 12/04/16 22:04 Dose: 100 mg - Objective Vital Signs: Vital Signs Temperature 97.9 F 12/05/16 08:41 Pulse Rate 83 12/05/16 08:42 Respiratory Rate 20 12/05/16 08:41 Blood Pressure 84/38 12/05/16 08:42 O2 Sat by Pulse Oximetry (%) 99 12/04/16 21:00 Constitutional: Yes: Thin, Other (demented) Eyes: Yes: WNL HENT: Yes: WNL Neck: Yes: WNL Cardiovascular: Yes: Pulse Irregular Respiratory: Yes: Regular Gastrointestinal: Yes: Soft Genitourinary: No: Anuria Extremities: Yes: Cool Edema: No Peripheral Pulses WNL: No Peripheral Pulses: Left Doralis Pedis: 1+, Right Dorsalis Pedis: 1+ Integumentary: Yes: Other (left foot gangrene) Wound/Incision: Yes: Other (left foot ulcer) Neurological: Yes: Confusion, Weakness Psychiatric: Yes: Other Labs: CBC, BMP 12/02/16 05:35 12/02/16 05:35 INR, PTT INR 1.17 (0.82-1.09) H 11/29/16 16:09 - ....Imaging Other: Image Reviewed (telemetry: NSR; frequent APCs) Problem List - Problems (1) Diabetes Code(s): E11.9 - TYPE 2 DIABETES MELLITUS WITHOUT COMPLICATIONS (2) Open wound of left foot Assessment/Plan: Mildly hypotensive this mornng. Hold metoprolol and lisinopril. IV fluids. For LE angiogram/angioplasty today if BP improves. Code(s): S91.302A - UNSPECIFIED OPEN WOUND, LEFT FOOT, INITIAL ENCOUNTER (3) Tachycardia Assessment/Plan: HR better controlled on metoprololl. ECHO: normal LVEF; diatolic dysfunction; moderately severe AR. Code(s): R00.0 - TACHYCARDIA, UNSPECIFIED (4) Dementia Assessment/Plan: Advanced dementia, per daughters, who have noticed the changes progressively worsening for several years. 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 Code(s): F03.90 - UNSPECIFIED DEMENTIA WITHOUT BEHAVIORAL DISTURBANCE Qualifiers: Dementia type: unspecified type Dementia behavioral disturbance: without behavioral disturbance Qualified Code(s): F03.90 - Unspecified dementia without behavioral disturbance (5) HTN (hypertension) Assessment/Plan: f/u serially; on metoprolol ER. Code(s): I10 - ESSENTIAL (PRIMARY) HYPERTENSION (6) Positive cardiac stress test Assessment/Plan: Stress Persantine MIBI 05/04/2017: moderate areas of moderately intense myocardial ischemia of the anterolateral and anteroapical wall; small to moderate inferolateral area of infarct; LVEF 39%. A long discussion was had with pt's daughter regarding the benefits vs risks of undergoing coronary angiogram. The coronary angiogram was deferred. The pt's status and decision by family was discussed with Dr. Kothari, vascular surgeon; pt will undergo LE angiogram/angioplasty today. From a cardiac perspective, there are no absolute contraindications for Mr. Desirae Hutton to undergo the LE angiogram; he is considered to be at moderately high risk for a perioperative cardiac event. Lisinopril 2.5 mg daily was started; metoprolol ER was increased to 50 mg daily ; amiodipine was discontinued. F/u HR and BP; F/u BUn/Cr, electrolytes. Maintain hydration. Start statin (LDL cholesterol 109 mg/dL). Code(s): R94.39 - ABNORMAL RESULT OF OTHER CARDIOVASCULAR FUNCTION STUDY
[2016-12-05] MEDS ORDERED: SODIUM CHLORIDE 250 ML IV SCH (11:45)
--- NOTE | 2016-12-05 12:36 | PN ---
Teaching Attending Note Name of Resident: Linus Leong ATTENDING PHYSICIAN STATEMENT I saw and evaluated the patient. I reviewed the resident's note and discussed the case with the resident. I agree with the resident's findings and plan as documented. SUBJECTIVE: Patient is confused. He was agitated overnight. OBJECTIVE: Vital Signs Period Temp Pulse Resp BP Sys/Mcdaniel Pulse Ox Last 24 Hr 97.9 F-98.2 F 75-83 18-20 84-127/38-68 97-99 HEART: S1 S2, RRR LUNGS: Clear ABDOMEN: Soft, non-distended, normal BS EXTREMITIES: No edema, gangrene of left heel and left 1st toe ASSESSMENT AND PLAN: This is a 76-year-old man with a history of Alzheimer dementia, HTN, type 2 DM, hyperlipidemia, PVD who was admitted for wide complex tachycardia that occurred during induction for angiogram. 1. NSVT - No further ventricular tachycardia - Persantine nuclear stress test shows moderate zone of moderate intensity anterolateral and anteroapical ischemia, small to moderate fixed inferolateral defect, severe anterolateral hypokinesia and inferolateral akinesia, LVEF 39% 2. CAD - Medical management - Continue aspirin, Plavix - Hold Toprol XL, Lisinopril secondary to hypotension 3. Leukcytosis - Resolved 4. Anemia, likely secondary to chronic illness - Continue to monitor hemoglobin 5. Type 2 DM - Continue Novolog sliding scale 6. Alzheimer dementia - Continue Aricept, Namenda, Trazodone, Seroquel 7. HTN - Hold Toprol XL, Lisinopril secondary to hypotension 8. PAD - Plan for angiogram today
[2016-12-05] MEDS ORDERED: MIDAZOLAM HCL 2 MG/2 ML SINGLE DOSE VIAL ONE ×2 (12:51→13:02)
[2016-12-05] MEDS ORDERED: ceFAZolin SODIUM 1 GM VIAL ONE (13:03)
[2016-12-05] MEDS ORDERED: SODIUM CHLORIDE 0.9% P/F 10 ML VIAL IJ ONE (13:03)
[2016-12-05] MEDS ORDERED: ceFAZolin SODIUM 1 GM VIAL IVPB ONE (13:04)
[2016-12-05] MEDS ORDERED: LIDOCAINE HCL 1%, 10 MG/ML (20ML VIAL) IJ ONE (13:14)
[2016-12-05] MEDS ORDERED: PROPOFOL 20 ML ONE (13:43)
--- NOTE | 2016-12-05 14:27 | PN ---
Progress Note (short form) - Note Progress Note: Vascular surgery S/P tibial artery angioplasty. Went retrograde from foot. Palpable DP pulse. Cont plavix. upon Dc -- please have pt follow up in wound care clinic. [phone]. Devan Kothari DO
--- NOTE | 2016-12-05 14:29 | OP ---
Operative Note - Note: Operative Date: 12/05/16 Pre-Operative Diagnosis: Left foot gangrene Operation: Aortogram, LLE angiogram, tibial artery angioplasty, pedal access. Findings: ant tibial artery occlusion Post-Operative Diagnosis: Same as Pre-op Surgeon: Devan Kothari Anesthesia: Fractional Estimated Blood Loss (mls): 100 Operative Report Dictated: Yes
[2016-12-05] MEDS: COLLAGENASE CLOSTRIDIUM HIST. 30 GRAMS TUBE TP SCH (14:35)
[2016-12-05] MEDS ORDERED: ONDANSETRON 4 MG/2 ML VIAL IVPUSH PRN (14:36)
[2016-12-05] MEDS ORDERED: LACTATED RINGERS SOLUTION 1,000 ML IV SCH (14:45)
[2016-12-05] MEDS: oxyCODONE HCL 5 MG TABLET PO PRN (20:16)
--- NOTE | 2016-12-05 21:03 | OP ---
DATE OF OPERATION: 12/05/2016 PREOPERATIVE DIAGNOSIS: Left foot gangrene. POSTOPERATIVE DIAGNOSIS: Left foot gangrene. PROCEDURE: Aortogram, left lower extremity angiogram, anterior tibial artery angiogram, anterior tibial artery angioplasty with pedal access. SURGEON: Devan Newberry DO ANESTHESIA: Fractional. ESTIMATED BLOOD LOSS: 100 mL. INDICATIONS: The patient is a 76-year-old male that comes in with left heel gangrene, great toe gangrene. He had an angiogram done in the past showing that he has minimal runoff into the foot but he has reconstitution of his anterior tibial artery in the foot only, but the artery is occluded in the agosto in the upper calf. It was decided at this time the thought would be that we would do an angiogram and then we might stick the pedal artery in the foot and go retrograde up into the femoral artery. The patient's family was consented for the procedure, understanding all risks, benefits, alternatives. DESCRIPTION OF PROCEDURE: The patient was then brought to the operating room and laid on the operating table in a supine manner. The area of the right and left groin were prepped and draped in the sterile surgical manner. We then injected 10 mL of 1% lidocaine over the right common femoral artery. We then took a micropuncture needle and punctured the right common femoral artery and a micropuncture wire was inserted and a traditional 5-Tajik sheath was inserted. A 0.035 guidewire was inserted into the aorta followed by an Omni flush catheter. We then shot an aortogram showing that the iliac arteries were without any disease. We then placed a 0.035 stiff guidewire down into the SFA, followed by an Rashid flush catheter. We then shot an angiogram of the left lower extremity showing that the common femoral artery, the SFA, the profunda and the popliteal artery are patent. The patient has minimal runoff due to extensive tibial disease. The patient has a takeoff of the arch and the anterior tibial artery is patent and then the anterior tibial artery is occluded all the way down to the distal calf and the reconstitutes going into the foot. At this point, we placed took out our Rashid flush catheter and placed a 6 x 55 cross over sheath and 5,000 units of IV heparin were administered to the patient. Using the [employer] cross catheter, we got down to the anterior tibial artery and we shot a selective angiogram of the anterior tibial artery that showed that the origin was open for 5 cm and thereafter, the artery was occluded and comes back in the foot. At this point, we decided that we would leave our Cook cross catheter there in the anterior tibia artery. We then went ahead and prepped and draped in the left foot in the sterile surgical manner. Under ultrasound guidance, we could visualize the dorsalis pedis artery in the foot and we injected 10 mL of 1% lidocaine over the artery. We then took our micropuncture needle and punctured the artery. Micropuncture wire was then inserted and a micropuncture sheath was inserted. We then placed a 0.035 stiff guidewire retrograde up the anterior tibial artery. At this point, we followed with a Cook cross catheter. We then went ahead and took our wire and placed it inside the Cook cross catheter that was left in the anterior tibial artery going antegrade and the wire then came out of the right groin. We were now able to floss the artery and at this point, we were able to bring the wire up inside the dorsalis pedis artery and we were able to remove the Cook cross catheter from the foot. At this point now, we went ahead and exchanged the wire going antegrade now and placed a V18 wire all the way down into the foot since the track had already been made now. We then went ahead and used a 2.5 x 220 balloon and performed an angioplasty of the entire anterior tibial artery from the dorsalis pedis artery all the way up to the origin. Completion angiogram was then taken, which showed that the anterior tibial artery was now completely patent from its origin all the way down into the foot. There was pulsatile flow coming out of the foot where we had a made a puncture. Pressure was held there for 10 minutes and thereafter, there was no more bleeding. We then went ahead and brought our sheath back up and over star closure device was successfully deployed in the right common femoral artery. Pressure was held for 5 minutes. After there was no bleeding, it was wet and dried and Dermabond was placed. The patient tolerated the procedure well with no complication. The patient now had a palpable DP pulse in the foot. The foot was nice and pink. The patient was transferred to the PACU in stable condition. Total blood loss 100 mL. DEVAN NEWBERRY DO [id number]
[2016-12-05] MEDS ORDERED: traZODone HCL 50 MG TABLET (FP) PO SCH (22:00)
[2016-12-05] MEDS ORDERED: QUEtiapine FUMARATE 50 MG TABLET PO SCH (22:00)
[2016-12-05] MEDS ORDERED: HALOPERIDOL LACTATE 5 MG/ML IM PRN (22:59)
[2016-12-06] MEDS: oxyCODONE HCL 5 MG TABLET PO PRN (06:39)
[2016-12-06] MEDS: INSULIN SLIDING SCALE (NOVOLOG) 1 VIAL SQ SCH ×3 (06:40→15:57)
[2016-12-06] MEDS: DOCUSATE SODIUM 100 MG CAPSULE (FP) PO SCH ×2 (06:40→14:33)
[2016-12-06] MEDS: HEPARIN NA (PORCINE) 5,000 UNITS/ML 1ML VIAL SQ SCH ×2 (06:40→14:33)
[2016-12-06] MEDS: QUEtiapine FUMARATE 25 MG TABLET (FP) PO SCH (09:06)
[2016-12-06] MEDS: MEMANTINE HCL 5 MG TABLET (UD) PO SCH (09:06)
[2016-12-06] MEDS ORDERED: CLOPIDOGREL BISULFATE 75 MG TABLET (FP) PO SCH (10:00)
[2016-12-06] MEDS ORDERED: LISINOPRIL 5 MG TABLET (FP) PO SCH (10:00)
[2016-12-06] MEDS ORDERED: CYANOCOBALAMIN 1,000 MCG TABLET (FP) PO SCH (10:00)
[2016-12-06] MEDS ORDERED: ASPIRIN 81 MG CHEWABLE TABLETS PO SCH (10:00)
[2016-12-06] MEDS ORDERED: COLLAGENASE CLOSTRIDIUM HIST. 30 GRAMS TUBE TP SCH (10:00)
[2016-12-06] MEDS ORDERED: METOPROLOL SUCCINATE 50 MG TAB.SR.24H (FP) PO SCH (10:00)
[2016-12-06] MEDS ORDERED: DONEPEZIL HCL 10 MG TABLET (FP) PO SCH (10:00)
[2016-12-06 15:01] VITALS: BP 137/75; PULSE 83; TEMP 98.2
--- NOTE | 2016-12-06 15:50 | PN ---
Progress Note, Physician Chief Complaint: Pt OOB in chair; pleasant; disoriented to time, place, person. Speech is rambling. 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 The patient has a chronic left heel ulcer for which [facility]. He presented for angiogram today. While in the operating room and prior to the start of the procedure, he was given Versed and Fentanyl and subsequently developed wide complex tachycardia per the anesthesia record. PACU course was notable for: (1) EKG: Sinus rhythm with PACs, Q waves in V1 and V2 (also present on prior EKG of 10/07/2016) and TWI in I, aVL, V4-V6 which are new/more pronounced (2) Sustained sinus tachycardia up to 120bpm Recent Travel: None Social History: Lives at home with family Smoking: Never smoked - Current Medication List Current Medications: Active Medications Aspirin (Asa -) 81 mg PO DAILY [facility] Last Admin: 12/06/16 09:06 Dose: 81 mg Clopidogrel Bisulfate (Plavix -) 75 mg PO DAILY [facility] Last Admin: 12/06/16 09:06 Dose: 75 mg Collagenase (Santyl -) 1 applic TP DAILY [facility] Last Admin: 12/06/16 09:09 Dose: 1 applic Cyanocobalamin (Vitamin B12 -) 1,000 mcg PO DAILY [facility] Last Admin: 12/06/16 09:09 Dose: 1,000 mcg Docusate Sodium (Colace -) 100 mg PO TID [facility] Last Admin: 12/06/16 14:33 Dose: Not Given Donepezil HCl (Aricept -) 10 mg PO DAILY [facility] Last Admin: 12/06/16 09:09 Dose: 10 mg Fentanyl (Sublimaze Injection -) 25 mcg IVPUSH [id number] PRN PRN Reason: PAIN Stop: 12/08/16 14:37 Heparin Sodium (Porcine) (Heparin -) 5,000 unit SQ TID [facility] Last Admin: 12/06/16 14:33 Dose: Not Given Lactated Ringer's (Lactated Ringers Solution) 1,000 mls @ 75 mls/hr IV ASDIR [facility] Insulin Aspart (Novolog Vial Sliding Scale -) 1 vial SQ ACHS [facility] PRN Reason: Protocol Last Admin: 12/06/16 11:07 Dose: Not Given Lisinopril (Prinivil) 2.5 mg PO DAILY [facility] Last Admin: 12/06/16 09:06 Dose: 2.5 mg Memantine (Namenda -) 5 mg PO BID [facility] Last Admin: 12/06/16 09:06 Dose: 5 mg Metoprolol Succinate (Toprol Xl -) 50 mg PO DAILY [facility] Last Admin: 12/06/16 09:06 Dose: 50 mg Oxycodone HCl (Roxicodone -) 5 mg PO Q4H PRN PRN Reason: PAIN Last Admin: 12/06/16 06:39 Dose: 5 mg Quetiapine Fumarate (Seroquel -) 25 mg PO BID@1000,1800 [facility] Last Admin: 12/06/16 09:06 Dose: 25 mg Quetiapine Fumarate (Seroquel -) 50 mg PO [facility] Last Admin: 12/05/16 21:08 Dose: 50 mg Trazodone HCl (Desyrel -) 100 mg PO [facility] Last Admin: 12/05/16 21:08 Dose: 100 mg - Objective Vital Signs: Vital Signs Temperature 98.2 F 12/06/16 14:00 Pulse Rate 83 12/06/16 14:00 Respiratory Rate 20 12/06/16 14:00 Blood Pressure 137/75 12/06/16 14:00 O2 Sat by Pulse Oximetry (%) 99 12/06/16 09:00 Constitutional: Yes: Calm Eyes: Yes: WNL HENT: Yes: WNL Neck: Yes: WNL Cardiovascular: Yes: Pulse Irregular Respiratory: Yes: WNL Gastrointestinal: Yes: WNL ...Rectal Exam: Yes: Deferred Genitourinary: No: Anuria Musculoskeletal: Yes: Muscle Weakness Extremities: Yes: Cool Edema: No Peripheral Pulses WNL: No Peripheral Pulses: Left Doralis Pedis: 1+, Right Dorsalis Pedis: 1+ Integumentary: Yes: Incision Wound/Incision: Yes: Clean/Dry Neurological: Yes: Weakness, Other Psychiatric: Yes: Other (dementia) Labs: CBC, BMP 12/02/16 05:35 12/02/16 05:35 INR, PTT INR 1.17 (0.82-1.09) H 11/29/16 16:09 Problem List - Problems (1) Diabetes Code(s): E11.9 - TYPE 2 DIABETES MELLITUS WITHOUT COMPLICATIONS (2) Open wound of left foot Assessment/Plan: As discussed with Dr. Kothari, Lt tibial artery angioplasty went uneventfully; improved pulse. Continue present medications. From a cardiac standpoint, pt may be followed as an outpatient. There are no plans for coronary angiogram at this time (please see earlier discussion with family). Aggressive control of lipids; ASA 81 mg/day. Code(s): S91.302A - UNSPECIFIED OPEN WOUND, LEFT FOOT, INITIAL ENCOUNTER (3) Tachycardia Assessment/Plan: HR better controlled on metoprolol. ECHO: normal LVEF; diatolic dysfunction; moderately severe AR. Stress MIBI: + for significant ischemia. Code(s): R00.0 - TACHYCARDIA, UNSPECIFIED (4) Dementia Assessment/Plan: Advanced dementia, per daughters, who have noticed the changes progressively worsening for several years. 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 He seldom recognizes family members, and is confused to person, place, time. Code(s): F03.90 - UNSPECIFIED DEMENTIA WITHOUT BEHAVIORAL DISTURBANCE Qualifiers: Dementia type: unspecified type Dementia behavioral disturbance: without behavioral disturbance Qualified Code(s): F03.90 - Unspecified dementia without behavioral disturbance (5) HTN (hypertension) Code(s): I10 - ESSENTIAL (PRIMARY) HYPERTENSION (6) Positive cardiac stress test Code(s): R94.39 - ABNORMAL RESULT OF OTHER CARDIOVASCULAR FUNCTION STUDY
--- NOTE | 2016-12-06 18:33 | PN ---
Teaching Attending Note Name of Resident: Linus Leong ATTENDING PHYSICIAN STATEMENT I saw and evaluated the patient. I reviewed the resident's note and discussed the case with the resident. I agree with the resident's findings and plan as documented. SUBJECTIVE: Confused. Appears comfortable. OBJECTIVE: Vital Signs Period Temp Pulse Resp BP Sys/Mcdaniel Pulse Ox Last 24 Hr 98.0 F-98.9 F 83-108 18-20 113-148/57-89 99-99 HEART: S1 S2, RRR LUNGS: Clear ABDOMEN: Soft, non-distended, normal BS EXTREMITIES: No edema, gangrene of left heel and left 1st toe ASSESSMENT AND PLAN: This is a 76-year-old man with a history of Alzheimer dementia, HTN, type 2 DM, hyperlipidemia, PVD who was admitted for wide complex tachycardia that occurred during induction for angiogram. 1. NSVT - No further ventricular tachycardia - Persantine nuclear stress test shows moderate zone of moderate intensity anterolateral and anteroapical ischemia, small to moderate fixed inferolateral defect, severe anterolateral hypokinesia and inferolateral akinesia, LVEF 39% 2. CAD - Medical management - Continue aspirin, Plavix - Hold Toprol XL, Lisinopril secondary to hypotension 3. Leukcytosis - Resolved 4. Anemia, likely secondary to chronic illness - Continue to monitor hemoglobin 5. Type 2 DM - Continue Novolog sliding scale 6. Alzheimer dementia - Continue Aricept, Namenda, Trazodone, Seroquel 7. HTN - Hold Toprol XL, Lisinopril secondary to hypotension 8. PAD - s/p aortogram, LLE angiogram, left tibial artery angioplasty, pedal access 12/05 9. Disposition - Ok for discharge home today
--- NOTE | 2016-12-06 19:35 | DS ---
Physical Exam: SUBJECTIVE: Agitated overnight, no acute cardiac event on monitor. OBJECTIVE: Vital Signs Period Temp Pulse Resp BP Sys/Mcdaniel Pulse Ox Last 24 Hr 98.0 F-98.9 F 83-108 18-20 113-148/57-89 99-99 PHYSICAL EXAM GENERAL: Alert, awake but not oriented, agitated, combative, demented and confused, in no acute distress. HEAD: NT, AC NECK: No mass no bruits LUNGS: CTAB HEART: irregular rate, S1, S2 present, no rub or gallop. ABDOMEN: nt, nd, +bowel sounds, no guarding, no rebound EXTREMITIES: no edema LABS Laboratory Results - last 24 hr 12/05/16 12/06/16 21:41 06:15 POC Glucometer 222 164 HOSPITAL COURSE: Date of Admission:11/29/16 76 yo M with Alzheimer's disease, HTN, DMII, HLD, PAD admitted to telemetry for NSVT. He came in originally for L foot angiogram for his heel gangrene but he's found to have NSVT during the procedure and subsequently admitted to telemetry for observation. He only had 1 episode of NSVT so far since he's started on toprolol XL. Angiogram was re-performed today without any complication. Stress test was positive for infarct but family had long converstion with property field adjuster and decided not to pursue cardiac cath due to patient's advanced dementia and baseline medical condition. He's now stable to be discharged home and follow up with property field adjuster and PMD on a regular basis. Date of Discharge: 12/06/16 Minutes to complete discharge: 35 Discharge Summary Reason For Visit: LEFT HEEL ULCER Condition: Stable - Instructions Diet, Activity, Other Instructions: Instruction for continuing care: You were admitted to the hospital because your heart rate was too fast. You were at the wound care clinic at [facility] and was going to get angiogram done by Dr. Kothari. While in the operating room and prior to the start of the procedure, you were given Versed and Fentanyl and subsequently developed fast heart rate (ventricular tachycardia). You were hospitalized to monitor your heart rate and it has been stable. The property field adjuster has come to see you and started you on beta-tamika to calm your heart down a little. After your heart became more calm, Dr. Kothari performed tibial artery angioplasty in your foot without any complication Here is the list of things you need to do: 1. From now on, you will need to take metoprolol XL once a day 2. Follow up with Dr. Ward in the office within a week 3. Follow up with Dr. Kothari at the wound care center on 12/13 4. Continue to take all your home medication If you have palpation, chest pain, dizziness, shortness of breath, you need to come back in the Emergency Room immediately. Referrals: Linus Ward MD [Staff Physician] - Devan Kothari MD [Staff Physician] - Disposition: HOME - Home Medications Comprehensive Discharge Medication List: Ambulatory Orders Amlodipine Besylate [Norvasc -] 5 mg PO DAILY 10/04/16 Aspirin [ASA -] 81 mg PO DAILY 10/04/16 Clopidogrel Bisulfate [Plavix -] 75 mg PO DAILY 10/04/16 Cyanocobalamin (Vitamin B-12) [Vitamin B-12] 1,000 mcg PO DAILY 10/04/16 Donepezil HCl [Aricept -] 10 mg PO DAILY 10/04/16 Memantine HCl [Namenda -] 5 mg PO BID 10/04/16 Quetiapine Fumarate [Seroquel -] 25 mg PO BID 10/04/16 Quetiapine Fumarate [Seroquel -] 50 mg PO HS 10/04/16 Trazodone HCl 100 mg PO HS 10/04/16 Collagenase Clostridium Hist. [Santyl] 1 applic TP DAILY #90 oint...g. 11/11/16 Metformin HCl [Metformin HCl ER] 500 mg PO DAILY 11/26/16 Metoprolol Succinate [Toprol XL -] 25 mg PO DAILY #30 tab 12/06/16 This patient is new to me today: No Emergency Visit: No Critical Care patient: No - Discharge Referral Referred to [facility] No
== END 2016-12-06 16:45 | disposition home or self-care (01) | DRG 173 ==
LOC: JASU-SURG 04:55 → J4W 04:56
PROVIDERS: ADMIT Internal Medicine; ATTEND Internal Medicine
PROC: B40DYZZ Plain Radiography of Aorta and Bilateral Lower Extremity Arteries using Other Contrast (ICD-10-PCS; 2016-12-05)
PROC: 047Q3ZZ Dilation of Left Anterior Tibial Artery, Percutaneous Approach (ICD-10-PCS; principal; 2016-12-05 10:30)
DX: R00.0 Tachycardia, unspecified (principal); G30.9 Alzheimer's disease, unspecified; F02.80 Dementia in other diseases classified elsewhere, unspecified severity, without behavioral disturbance, psychotic disturbance, mood disturbance, and anxiety; I10 Essential (primary) hypertension; I25.10 Atherosclerotic heart disease of native coronary artery without angina pectoris; E11.52 Type 2 diabetes mellitus with diabetic peripheral angiopathy with gangrene; E11.621 Type 2 diabetes mellitus with foot ulcer; L97.429 Non-pressure chronic ulcer of left heel and midfoot with unspecified severity; D72.829 Elevated white blood cell count, unspecified; R94.39 Abnormal result of other cardiovascular function study; D63.8 Anemia in other chronic diseases classified elsewhere; I77.1 Stricture of artery
CPT/HCPCS: 36415; 71010-TC; 76000-TC; 78452-TC; 80048; 80053; 80061; 82550; 82728; 83540; 83550; 83721; 83735; 83880; 84443; 84484; 85025; 85027; 85610; 86850; 86900; 86901; 87040; 93005; 93010; 93017; 93306-TC; 93970-TC; 94760; 97116-GP; 97161-GP; A9502; J1644

== ENCOUNTER 2017-01-01 09:28 | Inpatient (IN) | payer OTHER ==
--- NOTE | 2017-01-01 10:17 | PDOC ---
History of Present Illness - General History Source: Patient Exam Limitations: No Limitations - History of Present Illness Initial Comments: 01/01/17 10:32 The patient is a 76 year old male, BIBA with a significant past medical history of Alzheimer's, HLD, NIDDM, HTN, who presents to the emergency department with lethargy and worsening mental status since yesterday. The patient is here with his daughter who reports the patient waking up feeling more lethargic today. The daughter notes that yesterday he was more "sluggish" when walking up the 3 flights of steps to his apartment and seemed SOB while walking up stairs. Daughter denies recent fevers, chills, cough or any recent expressions of pain or discomfort by the pt. Daughter denies any recent nausea, vomit, diarrhea or constipation. Daughter denies any recent cough. This HPI is limited due to the patients worsening dementia and obtained primarily from daugther.. Allergies: NKA Past surgical history: None reported. Social History: Nonsmoker. Denies EtOH use and recreational drug use. Primary Care Physician:Dr.James Sears <Desmond Crane - Last Filed: 01/01/17 12:33> <Rudy Fajardo - Last Filed: 01/06/17 07:11> - General Chief Complaint: Lethargy Stated Complaint: Altered Mental Status Time Seen by Provider: 01/01/17 09:46 Past History <Desmond Crane - Last Filed: 01/01/17 12:33> - Past Medical History Anemia: No Asthma: No Cancer: No Cardiac Disorders: No CVA: Yes COPD: No CHF: No Dementia: Yes Diabetes: Yes GI Disorders: No Disorders: No HTN: Yes Hypercholesterolemia: No Liver Disease: No Seizures: No Thyroid Disease: No - Surgical History Abdominal Surgery: No Appendectomy: No Cardiac Surgery: No Cholecystectomy: No Lung Surgery: No Neurologic Surgery: No - Psycho/Social/Smoking Cessation Hx Suicidal Ideation: No Smoking History: Never smoked Have you smoked in the past 12 months: No Hx Alcohol Use: No Drug/Substance Use Hx: No Substance Use Type: None Hx Substance Use Treatment: No <Rudy Fajardo - Last Filed: 01/06/17 07:11> - Past Medical History Allergies/Adverse Reactions: Allergies Allergy/AdvReac Type Severity Reaction Status Date / Time No Known Allergies Allergy Verified 01/01/17 10:51 Home Medications: Ambulatory Orders Amlodipine Besylate [Norvasc -] 5 mg PO DAILY 10/04/16 Aspirin [ASA -] 81 mg PO DAILY 10/04/16 Clopidogrel Bisulfate [Plavix -] 75 mg PO DAILY 10/04/16 Cyanocobalamin (Vitamin B-12) [Vitamin B-12] 1,000 mcg PO DAILY 10/04/16 Donepezil HCl [Aricept -] 10 mg PO DAILY 10/04/16 Memantine HCl [Namenda -] 10 mg PO BID 10/04/16 Quetiapine Fumarate [Seroquel -] 25 mg PO BID 10/04/16 Quetiapine Fumarate [Seroquel -] 50 mg PO HS 10/04/16 Trazodone HCl 100 mg PO HS 10/04/16 Metformin HCl [Metformin HCl ER] 500 mg PO BID 11/26/16 Metoprolol Succinate [Toprol XL -] 25 mg PO DAILY #30 tab 12/06/16 Collagenase Clostridium Hist. [Santyl] 1 applic TP DAILY #90 oint...g. 12/16/16 Review of Systems - Review of Systems Able to Perform ROS?: No (dementia) <Desmond Crane - Last Filed: 01/01/17 12:33> *Physical Exam - Vital Signs Last Vital Signs Temp Pulse Resp BP Pulse Ox 99.2 F 115 H 26 H 112/70 94 L 01/01/17 10:18 01/01/17 10:18 01/01/17 10:18 01/01/17 10:18 01/01/17 10:18 - Physical Exam Comments: 01/01/17 10:32 GENERAL: The patient is A&O x 0, alert, somnolent but arousable to verbal stimulus HEAD: Normocephalic, atraumatic. EYES: extraocular movements intact, sclera anicteric, conjunctiva clear. ENT: Normal voice, dry mucous membranes. NECK: Normal range of motion, supple LUNGS: Mild rales on left lung. No wheezes, no rhonchi. No acute respiratory distress HEART: +Tachycardic. Regular rate and rhythm, without murmur, rub or gallop. ABDOMEN: Soft, nontender, normoactive bowel sounds. No guarding, no rebound.No CVA tenderness EXTREMITIES: 7x10cm ulcer with bogginess on left heel. Dry gangaria of the tip of the left big toe and skin avulsion of the right big toe. 1.5x1 cm and .5x.5 cm ulcer on right agosto with mild surrounding erythema NEUROLOGICAL: No facial asymmetry, unintellible speech,moving all 4 extremities spontanously SKIN: Warm, Dry, normal turgor. <Desmond Crane - Last Filed: 01/01/17 12:33> - Vital Signs Last Vital Signs Temp Pulse Resp BP Pulse Ox 99.2 F 119 H 26 H 111/74 85 L 01/01/17 09:45 01/01/17 09:45 01/01/17 09:45 01/01/17 09:45 01/01/17 09:45 <Rudy Fajardo - Last Filed: 01/06/17 07:11> Heart Score/ECG Review - ECG Impressions Comment:: 01/01/17 10:20 Twelve-lead EKG was performed and reviewed by me. There is normal sinus rhythm with a rate of [address] axis is normal. [address] depressions in the lateral leads that are new when compared with EKG in November 2016, possible demand ischemia 01/01/17 12:01 Twelve-lead EKG was performed and reviewed by me. There is normal sinus rhythm with a rate of 135 ST depressions of lateral leads <Rudy Fajardo - Last Filed: 01/06/17 07:11> ED Treatment Course - LABORATORY CBC & Chemistry Diagram: 01/01/17 10:18 01/01/17 10:18 - ADDITIONAL ORDERS Additional order review: Laboratory Results 01/01/17 10:05 VBG pH 7.38 POC VBG pCO2 40.8 POC VBG pO2 46.1 Mixed VBG HCO3 23.5 <Desmond Crane - Last Filed: 01/01/17 12:33> - LABORATORY CBC & Chemistry Diagram: 01/04/17 05:10 01/04/17 05:10 - RADIOLOGY Radiology Studies Ordered: Category Date Time Status HEAD CT WITHOUT CONTRAST [CT] Stat CT Scan 01/01/17 10:06 Ordered CHEST X-RAY PORTABLE* [RAD] Stat Radiology 01/01/17 09:47 Completed <Rudy Fajardo - Last Filed: 01/06/17 07:11> Medical Decision Making - Medical Decision Making 01/01/17 12:12 Call made to , case discussed with . 01/01/17 12:33 Page made to . <Desmond Crane - Last Filed: 01/01/17 12:33> - Medical Decision Making 01/01/17 10:08 76y M hx of dementia, hld, niddm, htn, chronic ulcers, presents from home for AMS, per daugther the ptw as more lethargic today and was a bit weak yesterday on arrival the pt is alert, and somnolent arousable by voice, but is oriented x0, moving all 4 extremities spontaneously. history linmited due to the pts dementia and provided primarily from daugther. pt noted tachy to 119 and hypoxic to high 80s on RA, although not febrile pt with some rales to left lung put also with several ulcers/lesions on his legs suspect possible pna sepsis order set initiated 01/01/17 10:19 pts HR not significantly improved with fluids suspect mild overload as pts rales a bit worse will obtain ct of head and chest will give some lasix for fluid overload will obt ct head and chest labs noted for leukocytosis will give empiric abx, ?heel ulcer vs uti as source of leukocytosis willgive denise and huma called placed to dr. reynolds regarding elevated trop 0.5 - suspect demand ischemia vs. acs 01/01/17 12:[address] leonard bedside agree with manageent, would recommend heparin for possible acs vs pe will tretnd trops would also agree with cta of chest will admit to ICU 01/01/17 13:[address] sylvester agree w/ manageemnt Case discussed in detail with admitting physician including history, physical exam and ancillary studies. Admitting physician has assumed care for the patient, will follow all pending diagnostics and will complete the evaluation and treatment. accepted to icu by dr. osuna awaiting CTA results pts did have episodeof infiltration by iv contrast pduring CTA CRITICAL CARE DOCUMENTATION: I spent ~45 minutes of Critical Care time, excluding separately billable procedures, involving high complexity decision making to assess, manipulate and support vital system function(s) to treat single or multiple vital organ system failure and/or to prevent further life threatening deterioration of the patient' s condition. 01/01/17 14:14 ct rhead reviewed, no acute processes, +chronic infarcts on right CTA neg for pe, but +congestion vs. inviltrates pt already on empiric abx awaiting ICU bed. 01/01/17 16:14 Pt doing well on bipap HR trending lower, into the 90s currently <Rudy Fajardo - Last Filed: 01/06/17 07:11> *DC/Admit/Observation/Transfer - Attestations Scribe Attestion: 01/01/17 10:33 Documentation prepared by Desmond Crane, acting as medical stenographer for Rudy Fajardo MD. <Desmond Crane - Last Filed: 01/01/17 12:33> - Discharge Dispostion Admit: Yes <Rudy Fajardo - Last Filed: 01/06/17 07:11> Diagnosis at time of Disposition: ACS (acute coronary syndrome), Infection of left foot Dementia Qualifiers: Dementia type: Alzheimer's disease Dementia behavioral disturbance: without behavioral disturbance CHF (congestive heart failure) Qualifiers: Congestive heart failure type: systolic Congestive heart failure chronicity: acute Qualified Code(s): I50.21 - Acute systolic (congestive) heart failure - Referrals
[2017-01-01 10:21] LABS: VENOUS BLOOD GAS HCO3 23.5 meq/L (19-25); VENOUS PH 7.38 (7.32-7.42)
[2017-01-01 10:31] LABS: URINE APPEARANCE SLCLOUDY; URINE BILIRUBIN NEGATIVE (NEGATIVE); URINE BLOOD NEGATIVE (NEGATIVE); URINE COLOR AMBER; URINE GLUCOSE (UA) 3+ (NEGATIVE); URINE KETONE 2+ (NEGATIVE); URINE NITRITE NEGATIVE (NEGATIVE); URINE UROBILINOGEN NEGATIVE E.U./dl (0.2-1.0)
[2017-01-01 10:32] LABS: BASOPHIL 0.3 % (0-2.0); MCH 27.8 pg (25.7-33.7); MCHC 32.1 g/dl (32.0-35.9); MEAN CELL VOLUME 86.4 fl (80-96); MEAN PLT VOLUME 8.6 fl (7.5-11.1); NEUTROPHILS 90.4 % (42.8-82.8); PLATELET COUNT 438 K/MM3 (134-434); RDW 13.9 % (11.9-15.9); WHITE BLOOD COUNT 17.4 K/mm3 (4.0-10.0)
[2017-01-01] MEDS ORDERED: SODIUM CHLORIDE 1,000 ML IV ONE (10:32)
[2017-01-01 10:40] LABS: URINE LEUK ESTERASE 1+ (NEGATIVE); URINE PROTEIN 2+ (NEGATIVE)
[2017-01-01 10:49] LABS: URINE HYALINE CAST 11 /lpf; URINE MUCUS MODERATE; URINE RBC 7 /hpf (0-3); URINE WBC 56 /hpf (3-5)
[2017-01-01 11:09] LABS: ALBUMIN 2.8 g/dl (3.4-5.0); ANION GAP 11 (8-16); BILIRUBIN,TOTAL 0.4 mg/dL (0.2-1.0); CALCIUM 9.5 mg/dL (8.5-10.1); CO2 26 mmol/L (21-32); GLUCOSE,RANDOM 239 mg/dL (74-106); SGOT/AST 22 U/L (15-37); SGPT/ALT 24 U/L (12-78); TOT PROT 7.7 g/dl (6.4-8.2)
[2017-01-01] MEDS ORDERED: LORAZEPAM CARPU-JECT 2 MG/ML DISP.SYRIN IVPUSH ONE (11:09)
[2017-01-01] MEDS ORDERED: LORazepam 2 MG/ML SDV VIAL ONE (11:10)
[2017-01-01 11:24] LABS: ALK PHOS 87 U/L (45-117)
[2017-01-01 11:34] LABS: INR 1.35 (0.82-1.09); PROTHROMBIN TIME (PATIENT) 14.9 SEC (9.98-11.88)
[2017-01-01 11:36] LABS: ACTIVATED PTT 28.3 SECONDS (26.9-34.4)
[2017-01-01] MEDS ORDERED: FUROSEMIDE 40 MG/4 ML INJECTABLE VIAL IVPUSH ONE (11:38)
[2017-01-01 11:45] LABS: TROPONIN I 0.55 ng/ml (0.00-0.05)
[2017-01-01] MEDS ORDERED: ASPIRIN 81 MG CHEWABLE TABLETS PO ONE ×2 (11:45)
[2017-01-01] MEDS ORDERED: ASPIRIN 81 MG CHEWABLE TABLETS ONE (11:46)
[2017-01-01] MEDS ORDERED: FUROSEMIDE 40 MG/4 ML INJECTABLE VIAL ONE (11:46)
[2017-01-01] MEDS ORDERED: PIPERACILLIN/TAZOB 4.5 GM/100 ML PRE-DOCKED IVPB ONE (11:59)
[2017-01-01] MEDS ORDERED: VANCOMYCIN 1,250 MG in DEXTROSE 5%-WATER - 250 ML IVPB ONE (11:59)
--- NOTE | 2017-01-01 12:07 | CON.CARD ---
Consult Consult Specialty:: Cardiology Reason for Consultation:: sob - History of Present Illness History of Present Illness: The patient is a 76 year old male, BIBA with a significant past medical history of Alzheimer's, HLD, NIDDM, HTN, who presents to the emergency department with lethargy and worsening mental status since yesterday. The patient is here with his daughter who reports the patient waking up feeling more lethargic today. The daughter notes that yesterday he was more "sluggish" when walking up the 3 flights of steps to his apartment and seemed SOB while walking up stairs. Daughter denies recent fevers, chills, cough or any recent expressions of pain or discomfort by the pt. Daughter denies any recent nausea, vomit, diarrhea or constipation. Daughter denies any recent cough. This HPI is limited due to the patients worsening dementia and obtained primarily from daugther.. Allergies: NKA Past surgical history: None reported. Social History: Nonsmoker. Denies EtOH use and recreational drug use. 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: Alzheimer's, Dementia Cardio/Vascular: Yes: Aortic Insufficiency, CAD, CHF, HTN, Hyperlipdemia Psych: Yes: Bipolar (Pt's daughter say he has dementia and ?manic depression) Endocrine: Yes: Diabetes Mellitus - Past Surgical History Past Surgical History: Yes: None - Alcohol/Substance Use Hx Alcohol Use: No - Smoking History Smoking history: Never smoked Have you smoked in the past 12 months: No Home Medications - Allergies Allergies/Adverse Reactions: Allergies Allergy/AdvReac Type Severity Reaction Status Date / Time No Known Allergies Allergy Verified 01/01/17 10:51 - Home Medications Home Medications: Ambulatory Orders Amlodipine Besylate [Norvasc -] 5 mg PO DAILY 10/04/16 Aspirin [ASA -] 81 mg PO DAILY 10/04/16 Clopidogrel Bisulfate [Plavix -] 75 mg PO DAILY 10/04/16 Cyanocobalamin (Vitamin B-12) [Vitamin B-12] 1,000 mcg PO DAILY 10/04/16 Donepezil HCl [Aricept -] 10 mg PO DAILY 10/04/16 Memantine HCl [Namenda -] 10 mg PO BID 10/04/16 Quetiapine Fumarate [Seroquel -] 25 mg PO BID 10/04/16 Quetiapine Fumarate [Seroquel -] 50 mg PO HS 10/04/16 Trazodone HCl 100 mg PO HS 10/04/16 Metformin HCl [Metformin HCl ER] 500 mg PO BID 11/26/16 Metoprolol Succinate [Toprol XL -] 25 mg PO DAILY #30 tab 12/06/16 Collagenase Clostridium Hist. [Santyl] 1 applic TP DAILY #90 oint...g. 12/16/16 Review of Systems - Review of Systems Constitutional: reports: No Symptoms Eyes: reports: No Symptoms HENT: reports: No Symptoms Neck: reports: No Symptoms Cardiovascular: reports: No Symptoms Respiratory: reports: SOB Gastrointestinal: reports: No Symptoms Genitourinary: reports: No Symptoms Breasts: reports: No Symptoms Reported Musculoskeletal: reports: No Symptoms Integumentary: reports: No Symptoms Neurological: reports: No Symptoms Endocrine: reports: No Symptoms Hematology/Lymphatic: reports: No Symptoms Psychiatric: reports: No Symptoms Vital Signs: Vital Signs Temperature 99.2 F 01/01/17 10:18 Pulse Rate 115 H 01/01/17 10:18 Respiratory Rate 26 H 01/01/17 10:18 Blood Pressure 112/77 01/01/17 10:33 O2 Sat by Pulse Oximetry (%) 94 L 01/01/17 10:18 Constitutional: Yes: Well Nourished, No Distress, Calm Eyes: Yes: WNL, Conjunctiva Clear, EOM Intact HENT: Yes: WNL, Atraumatic, Normocephalic Neck: Yes: WNL, Supple, Trachea Midline Respiratory: Yes: Rhonchi Gastrointestinal: Yes: WNL, Normal Bowel Sounds Renal/: Yes: WNL Cardiovascular: Yes: WNL, Regular Rate and Rhythm Musculoskeletal: Yes: WNL Extremities: Yes: WNL Integumentary: Yes: WNL Neurological: Yes: WNL, Alert, Oriented ...Motor Strength: WNL Psychiatric: Yes: WNL, Alert, Oriented - Other Data Labs, Other Data: CBC, BMP 01/01/17 10:18 01/01/17 10:18 INR, PTT INR 1.35 (0.82-1.09) H 01/01/17 10:18 Troponin, BNP 01/01/17 10:18 Troponin I 0.55 H D Troponin, BNP 01/01/17 10:18 Troponin I 0.55 H D Imaging - Results Chest X-ray: Image Reviewed (cm no i/e) EKG: Image Reviewed (sr rep abn) Problem List - Problems (1) CAD (coronary artery disease) Code(s): I25.10 - ATHSCL HEART DISEASE OF [place] CORONARY ARTERY W/O ANG PCTRS (2) Dementia Code(s): F03.90 - UNSPECIFIED DEMENTIA WITHOUT BEHAVIORAL DISTURBANCE Qualifiers: Dementia type: unspecified type Dementia behavioral disturbance: without behavioral disturbance Qualified Code(s): F03.90 - Unspecified dementia without behavioral disturbance (3) Infection of left foot Code(s): L08.9 - LOCAL INFECTION OF THE SKIN AND SUBCUTANEOUS TISSUE, UNSP (4) Open wound of left foot Code(s): S91.302A - UNSPECIFIED OPEN WOUND, LEFT FOOT, INITIAL ENCOUNTER (5) Positive cardiac stress test Code(s): R94.39 - ABNORMAL RESULT OF OTHER CARDIOVASCULAR FUNCTION STUDY (6) Tachycardia Code(s): R00.0 - TACHYCARDIA, UNSPECIFIED (7) Diabetes Code(s): E11.9 - TYPE 2 DIABETES MELLITUS WITHOUT COMPLICATIONS (8) HTN (hypertension) Code(s): I10 - ESSENTIAL (PRIMARY) HYPERTENSION (9) Normocytic anemia Code(s): D64.9 - ANEMIA, UNSPECIFIED Assessment/Plan sob cad pos st family refused c. cath dm htn advanced altzheimers dementia AI chf plan; echo lasix r/o PE IV heparine
[2017-01-01] MEDS ORDERED: PIPERACILLIN/TAZOB 3.375 GM 50 ML IVPB ONE (12:16)
[2017-01-01] MEDS ORDERED: VANCOMYCIN 1 GRAM (PRE-DOCKED) 250 ML IVPB ONE ×2 (12:16→12:45)
[2017-01-01] MEDS ORDERED: HEPARIN NA (PORCINE) 5,000 UNITS/ML 1ML VIAL IVPUSH ONE (12:32)
[2017-01-01] MEDS ORDERED: PIPERACILLIN/TAZOB 3.375 GM 3.375 GM in DEXTROSE 5%-WATER - 50 ML IVPB ONE (12:36)
--- NOTE | 2017-01-01 13:34 | EKG ---
Test Reason : Blood Pressure : / mmHG Vent. Rate : 119 BPM Atrial Rate : 119 BPM P-R Int : 176 ms QRS Dur : 102 ms QT Int : 344 ms P-R-T Axes : 078 073 -87 degrees QTc Int : 483 ms SINUS TACHYCARDIA SEPTAL INFARCT , AGE UNDETERMINED ABNORMAL ECG WHEN COMPARED WITH ECG OF 03-DEC-2016 12:36, PREMATURE ATRIAL COMPLEXES ARE NO LONGER PRESENT T WAVE INVERSION NOW EVIDENT IN INFERIOR LEADS T WAVE INVERSION LESS EVIDENT IN LATERAL LEADS Confirmed by SUNNY FAIRBANKS MD ([id number]) on 01/01/2017 1:34:34 PM Referred By: Confirmed By:SUNNY FAIRBANKS MD
[2017-01-01] MEDS ORDERED: HEPARIN NA (PORCINE) 5,000 UNITS/ML 1ML VIAL ONE (13:41)
[2017-01-01] MEDS ORDERED: HEPARIN INFUSION - 500 ML IVPB ONE (13:42)
[2017-01-01] MEDS: HEPARIN INFUSION - 500 ML IVPB SCH (13:47)
[2017-01-01 16:23] LABS: TROPONIN I 0.95 ng/ml (0.00-0.05)
--- NOTE | 2017-01-01 20:52 | CONSULT ---
Consult Consult Specialty:: Pulm/CCM Reason for Consultation:: CHF exacerbation - History of Present Illness Chief Complaint: weakness, sob History of Present Illness: Briefly mr Desirae Hutton is a 76 year old male,with past medical history significant fo Alzheimer's, HLD, NIDDM, HTN, PAD, diabetic foot ulcer (Follows with Dr Kothari and goes to [facility]) who presented to the emergency department today with lethargy and worsening mental status since yesterday. Daughter relates pt awoke this morning seeming more lethargic and had some HERIRNG yesterday while walking up flight of stairs. Pt is care for by his and daughter, who relate he has been in declining health for some time. Daughter denies recent fevers, chills, cough or any recent expressions of pain or discomfort by the pt. Daughter denies any recent nausea, vomit, diarrhea or constipation. Daughter denies any recent cough. Pt appeared increasing unwell prompting family to activate 911. In ED pt had low grade temp 99, HR 120s, RR 26, RAspo2 85. Note to have + UA (56wbc, +LE) and some chest congestion on CXR. Started on broad spectrum abx. Was given fluid with worsening of SOB and rales on ausc. Underwent CT head which was negative for acute pathology (old infarcts noted), and CTA of chest/PE study which was negative for PE but with pulm edema vs infiltrate bilaterally. Pt required NIVPPV and lasix for worsening pulm edema and showed some improvement. TTE shows Moderate to severe and globally hypokinetic and depressed LV. 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: Alzheimer's, Dementia Cardio/Vascular: Yes: Aortic Insufficiency, CAD, CHF, HTN, Hyperlipdemia Psych: Yes: Bipolar (Pt's daughter say he has dementia and ?manic depression) Endocrine: Yes: Diabetes Mellitus Additional Medical History: diabetic and PAD associated foot ulcers bilaterally - Past Surgical History Past Surgical History: Yes: None - Alcohol/Substance Use Hx Alcohol Use: No - Smoking History Smoking history: Never smoked Have you smoked in the past 12 months: No - Social History Usual Living Arrangement: With Spouse ADL: Family Assistance History of Recent Travel: No Home Medications - Allergies Allergies/Adverse Reactions: Allergies Allergy/AdvReac Type Severity Reaction Status Date / Time No Known Allergies Allergy Verified 01/01/17 10:51 - Home Medications Home Medications: Ambulatory Orders RX: Amlodipine Besylate [Norvasc -] 5 mg PO DAILY 10/04/16 RX: Aspirin [ASA -] 81 mg PO DAILY 10/04/16 RX: Clopidogrel Bisulfate [Plavix -] 75 mg PO DAILY 10/04/16 RX: Cyanocobalamin (Vitamin B-12) [Vitamin B-12] 1,000 mcg PO DAILY 10/04/16 RX: Donepezil HCl [Aricept -] 10 mg PO DAILY 10/04/16 RX: Memantine HCl [Namenda -] 10 mg PO BID 10/04/16 RX: Quetiapine Fumarate [Seroquel -] 25 mg PO BID 10/04/16 RX: Quetiapine Fumarate [Seroquel -] 50 mg PO HS 10/04/16 RX: Trazodone HCl 100 mg PO HS 10/04/16 RX: Metformin HCl [Metformin HCl ER] 500 mg PO BID 11/26/16 RX: Metoprolol Succinate [Toprol XL -] 25 mg PO DAILY #30 tab 12/06/16 Collagenase Clostridium Hist. [Santyl] 1 applic TP DAILY #90 oint...g. 12/16/16 Family Disease History - Family Disease History Family History: Unremarkable (daughter denied) Review of Systems Unable to obtain ROS, reason: dementia Findings/Remarks: Per daughter relates no recent cough, fever, chest pain, changes in mentation. Physical Exam Vital Signs: Vital Signs Temperature 99.2 F 01/01/17 10:18 Pulse Rate 103 H 01/01/17 19:34 Respiratory Rate 26 H 01/01/17 19:34 Blood Pressure 121/77 01/01/17 19:34 O2 Sat by Pulse Oximetry (%) 98 01/01/17 19:34 Constitutional: Yes: Mild Distress, Thin Eyes: Yes: Conjunctiva Clear, EOM Intact, PERRL HENT: Yes: Atraumatic, Normocephalic Neck: Yes: Supple, Trachea Midline. No: Lymphadenopathy Cardiovascular: Yes: Pulse Irregular, S1, S2 Respiratory: Yes: On Nasal O2, Rales. No: Accessory Muscle Use, Cough Gastrointestinal: Yes: Normal Bowel Sounds, Soft ...Rectal Exam: Yes: Deferred Renal/: Yes: WNL Breast(s): Yes: WNL Musculoskeletal: Yes: WNL Extremities: Yes: Cool, Other (bilateral foot and agosto ulcers, large L heel ulcer. All appear dry, without erythema, exudate. Daughter says R great toe has been worsening of recent but follows with Dr Kothari.) Peripheral Pulses WNL: Yes Integumentary: Yes: Other (ulcers bilaterally, bilateral great toe, L heel, bilateral agosto.) Wound/Incision: Yes: Clean/Dry Neurological: Yes: Aphasia, Confusion, Cran Nerves II-XII Intact. No: Facial Droop, Seizure ...Motor Strength: WNL Psychiatric: Yes: Agitated Labs: CBC, BMP 01/01/17 10:18 01/01/17 10:18 Imaging - Results Chest X-ray: Report Reviewed Cat Scan: Report Reviewed (CTA negative for PE, small effusions, some central ground glass) EKG: Report Reviewed, Image Reviewed (ST, occasional PAC, with lateral TWI) Other: Report Reviewed (TTE report reviews) Problem List - Problems (1) ACS (acute coronary syndrome) Code(s): I24.9 - ACUTE ISCHEMIC HEART DISEASE, UNSPECIFIED (2) CHF (congestive heart failure) Code(s): I50.9 - HEART FAILURE, UNSPECIFIED Qualifiers: Congestive heart failure type: systolic Congestive heart failure chronicity: acute Qualified Code(s): I50.21 - Acute systolic (congestive ) heart failure (3) Dementia Code(s): F03.90 - UNSPECIFIED DEMENTIA WITHOUT BEHAVIORAL DISTURBANCE Qualifiers: Dementia type: Alzheimer's disease Dementia behavioral disturbance: without behavioral disturbance (4) CAD (coronary artery disease) Code(s): I25.10 - ATHSCL HEART DISEASE OF [place] CORONARY ARTERY W/O ANG PCTRS (5) Open wound of left foot Code(s): S91.302A - UNSPECIFIED OPEN WOUND, LEFT FOOT, INITIAL ENCOUNTER Qualifiers: Encounter type: sequela Qualified Code(s): S91.302S - Unspecified open wound, left foot, sequela Assessment/Plan PULM/CCM Pt seen and examined in ICU A/ 76 y/o man with PAD, CHF, CAD, DM, chronic foot ulcer p/w UTI, CHF exacerbation, NSTEMI P/ Fio2 and NIVPPV as needed heparin gtt, BB, per Cards Full therapeutic AC, given advanced dementia and baseline agitation paul high risk for outpt anticoagulation serial trops, repeat BNP gentle diuresis cont PT and vanco, f/u cxl, narrow on results cont home dementia meds, family significant sundowning. Dispo: maintain in ICU Proph: Hep gtt, Kylah Cid ACNP 4750
[2017-01-01 20:57] VITALS: BMI 21.0
[2017-01-01] MEDS ORDERED: QUEtiapine FUMARATE 25 MG TABLET (FP) ONE (21:23)
[2017-01-01] MEDS ORDERED: QUEtiapine FUMARATE 50 MG TABLET PO SCH (22:00)
[2017-01-01] MEDS ORDERED: traZODone HCL 100 MG TABLET (FP) PO SCH (22:00)
[2017-01-01 23:19] LABS: TROPONIN I 1.79 ng/ml (0.00-0.05)
[2017-01-02 06:54] LABS: BASOPHIL 0.5 % (0-2.0); MCH 27.9 pg (25.7-33.7); MCHC 32.6 g/dl (32.0-35.9); MEAN CELL VOLUME 85.7 fl (80-96); MEAN PLT VOLUME 8.2 fl (7.5-11.1); NEUTROPHILS 79.5 % (42.8-82.8); PLATELET COUNT 422 K/MM3 (134-434); WHITE BLOOD COUNT 13.5 K/mm3 (4.0-10.0)
[2017-01-02 07:24] LABS: ALBUMIN 2.4 g/dl (3.4-5.0); ALK PHOS 79 U/L (45-117); ANION GAP 8 (8-16); BILIRUBIN,TOTAL 0.3 mg/dL (0.2-1.0); CALCIUM 9.1 mg/dL (8.5-10.1); CO2 29 mmol/L (21-32); CREATININE 0.9 mg/dL (0.7-1.3); GLUCOSE,RANDOM 159 mg/dL (74-106); SGOT/AST 25 U/L (15-37); SGPT/ALT 22 U/L (12-78); TOT PROT 6.8 g/dl (6.4-8.2)
[2017-01-02] MEDS ORDERED: HEPARIN NA (PORCINE) 5,000 UNITS/ML 1ML VIAL IVPUSH PRN ×6 (09:31→19:06)
[2017-01-02] MEDS ORDERED: METOPROLOL SUCCINATE 25 MG TAB.SR.24H (FP) PO SCH (10:00)
[2017-01-02] MEDS ORDERED: amLODIPine BESYLATE 5 MG TABLET (FP) PO SCH (10:00)
[2017-01-02] MEDS ORDERED: COLLAGENASE CLOSTRIDIUM HIST. 30 GRAMS TUBE TP SCH (10:00)
[2017-01-02] MEDS ORDERED: CLOPIDOGREL BISULFATE 75 MG TABLET (FP) PO SCH (10:00)
[2017-01-02] MEDS ORDERED: MEMANTINE HCL 10 MG TABLET (FP) PO SCH (10:00)
[2017-01-02] MEDS: ASPIRIN 81 MG CHEWABLE TABLETS PO SCH ×2 (10:00→15:41)
[2017-01-02] MEDS ORDERED: QUEtiapine FUMARATE 25 MG TABLET (FP) PO SCH (10:00)
--- NOTE | 2017-01-02 10:01 | CONSULT ---
- Consultation REQUESTING PROVIDER: Dr. Kothari CONSULT REQUEST: We have been asked to surgically evaluate this patient for left heel ulcer. PCP:Polly Lemos HISTORY OF PRESENT ILLNESS: The patient is a 76 yo male with a PMHX of diabetes who presented to the Er after his family noted him to be lethargic. According to the nursing staff and review of his chart, the patient is still ambulatory and lives at home. He was noted to have elevated troponins and a cardiac cath was recommended to the family but they are refusing. Spoke with Dr. Kothari and he follows this patient in the wound clinic. He completed an an angio 12/05 to help improve the blood flow to his heel. PMHx: CAD, HTN, CHF, high cholesterol, diabetes, left foot gangrene PSHx: Aortogram, LLE angiogram, tibial artery angioplasty, pedal access. Home Medications Medication Instructions Recorded Amlodipine Besylate [Norvasc -] 5 mg PO DAILY 10/04/16 Aspirin [ASA -] 81 mg PO DAILY 10/04/16 Clopidogrel Bisulfate [Plavix -] 75 mg PO DAILY 10/04/16 Cyanocobalamin (Vitamin B-12) 1,000 mcg PO DAILY 10/04/16 [Vitamin B-12] Donepezil HCl [Aricept -] 10 mg PO DAILY 10/04/16 Memantine HCl [Namenda -] 10 mg PO BID 10/04/16 Quetiapine Fumarate [Seroquel -] 25 mg PO BID 10/04/16 Quetiapine Fumarate [Seroquel -] 50 mg PO HS 10/04/16 Trazodone HCl 100 mg PO HS 10/04/16 Metformin HCl [Metformin HCl ER] 500 mg PO BID 11/26/16 Metoprolol Succinate [Toprol XL -] 25 mg PO DAILY #30 tab 12/06/16 Collagenase Clostridium Hist. 1 applic TP DAILY #90 oint...g. 12/16/16 [Santyl] Allergies Allergy/AdvReac Type Severity Reaction Status Date / Time No Known Allergies Allergy Verified 01/01/17 10:51 REVIEW OF SYSTEMS: Unable to obtain from patient, h/o alzheimers and lethargic this am PHYSICAL EXAM: GENERAL: lethargic, arousable HEAD: Normal with no signs of trauma. EYES: sclera anicteric, conjunctiva clear. LUNGS: Clear to auscultation bilat anteriorly. No wheezes, and no crackles. No accessory muscle use. HEART: Regular rate, tachycardic ABDOMEN: Soft, nontender, not distended. MUSCULOSKELETAL: Normal ROM at all joints. No bony deformities or tenderness. UPPER EXTREMITIES: 2+ pulses, warm, well-perfused. No cyanosis. Cap refill <2 seconds. edema to right hand. LOWER EXTREMITIES: warm to touch b/l. +2 DP b/l with doppler. Left PT signal monophasic with doppler. Right PT good signal. RIght great toe and 3rd digit with dry gangrene(no erythema or odor). Left great toe dry gangrene. left heel with eschar(slightly boggy) no surrounding erythema or swelling. No purulent drainage with palpation. A foul gangrenous odor is noted. NEUROLOGICAL: non-verbal, moving lower extremities b/l Vital Signs Temperature 98.8 F 01/02/17 06:00 Pulse Rate 107 H 01/02/17 08:00 Respiratory Rate 20 01/02/17 08:35 Blood Pressure 131/72 01/02/17 08:00 O2 Sat by Pulse Oximetry (%) 98 01/01/17 20:25 Lab Results WBC 13.5 K/mm3 (4.0-10.0) H 01/02/17 05:20 RBC 3.41 M/mm3 (4.00-5.60) L 01/02/17 05:20 Hgb 9.5 GM/dL (11.7-16.9) L 01/02/17 05:20 Hct 29.3 % (35.4-49) L 01/02/17 05:20 MCV 85.7 fl (80-96) 01/02/17 05:20 MCHC 32.6 g/dl (32.0-35.9) 01/02/17 05:20 RDW 14.0 % (11.9-15.9) 01/02/17 05:20 Plt Count 422 K/MM3 (134-434) 01/02/17 05:20 Sodium 140 mmol/L (136-145) 01/02/17 05:20 Potassium 3.8 mmol/L (3.5-5.1) 01/02/17 05:20 Chloride 103 mmol/L (98-107) 01/02/17 05:20 Carbon Dioxide 29 mmol/L (21-32) 01/02/17 05:20 Anion Gap 8 (8-16) 01/02/17 05:20 BUN 18 mg/dL (7-18) 01/02/17 05:20 Creatinine 0.9 mg/dL (0.7-1.3) 01/02/17 05:20 Random Glucose 159 mg/dL (74-106) H D 01/02/17 05:20 Calcium 9.1 mg/dL (8.5-10.1) 01/02/17 05:20 Blood Type AB NEGATIVE 01/01/17 10:07 Antibody Screen Negative 01/01/17 10:07 INR 1.35 (0.82-1.09) H 01/01/17 10:18 Microbiology 01/01/17 09:50 Urine - Urine Clean Catch Urine Culture - Preliminary Group D Strep Or Entero Coccus blood culture-NGTD Problem List - Problems (1) Infection of left foot Assessment/Plan: Continue IV Vanco/Zosyn and local wound care with santyl, heel protective measures At this time no erythema or drainage and needs for surgical drainage. Spoke with Dr. Kothari regarding the patients care and will reevaluate the wound to monitor for healing. Code(s): L08.9 - LOCAL INFECTION OF THE SKIN AND SUBCUTANEOUS TISSUE, UNSP (2) Open wound of left foot Assessment/Plan: Pt with eschar to the left heel, will continue with santyl to left heel Recommend optifoam to right heel for preventive care, also heels elevated on pillows Code(s): S91.302A - UNSPECIFIED OPEN WOUND, LEFT FOOT, INITIAL ENCOUNTER Qualifiers: Encounter type: sequela Qualified Code(s): S91.302S - Unspecified open wound, left foot, sequela Visit type - Case Type Case Type: ED Admission - Emergency Emergency Visit: Yes ED Registration Date: 01/01/17 Care time: The patient presented to the Emergency Department on the above date and was hospitalized for further evaluation of their emergent condition. - New patient This patient is new to me today: Yes Date on this admission: 01/02/17 - Critical Care Critical Care patient: No
--- NOTE | 2017-01-02 10:03 | PN ---
Progress Note, Physician Chief Complaint: Pt is lethargic, largely unresponsive to tactile or verbal stimuli. History of Present Illness: The patient is a 76 year old male, BIBA with a significant past medical history of Alzheimer's, HLD, NIDDM, HTN, who presents to the emergency department with lethargy and worsening mental status since yesterday. The patient is here with his daughter who reports the patient waking up feeling more lethargic today. The daughter notes that yesterday he was more "sluggish" when walking up the 3 flights of steps to his apartment and seemed SOB while walking up stairs. Daughter denies recent fevers, chills, cough or any recent expressions of pain or discomfort by the pt. Daughter denies any recent nausea, vomit, diarrhea or constipation. Daughter denies any recent cough. This HPI is limited due to the patients worsening dementia and obtained primarily from daugther.. Allergies: NKA Past surgical history: None reported. Social History: Nonsmoker. Denies EtOH use and recreational drug use. Primary Care Physician:Dr.James Sears - Current Medication List Current Medications: Active Medications Amlodipine Besylate (Norvasc -) 5 mg PO DAILY [facility] Aspirin (Asa -) 81 mg PO DAILY [facility] Clopidogrel Bisulfate (Plavix -) 75 mg PO DAILY [facility] Collagenase (Santyl -) 1 applic TP DAILY [facility] Heparin Sodium (Porcine) (Heparin -) 5,000 unit IVPUSH PRN PRN PRN Reason: TACHYCARDIA Last Admin: 01/02/17 09:41 Dose: 5,000 unit Heparin Sodium (Porcine) (Heparin -) 1,000 unit IVPUSH PRN PRN PRN Reason: TACHYCARDIA Heparin Sodium/Dextrose (Heparin Infusion -) 500 mls @ 16 mls/hr IVPB TITR [facility] ; 800 UNITS/HR PRN Reason: Protocol Last Titration: 01/02/17 08:00 Dose: 1,100 units/hr Memantine (Namenda -) 10 mg PO BID [facility] Metformin HCl (Glucophage Xr -) 500 mg PO BIDI [facility] Metoprolol Succinate (Toprol Xl -) 25 mg PO DAILY [facility] Quetiapine Fumarate (Seroquel -) 25 mg PO BID [facility] Trazodone HCl (Desyrel -) 100 mg PO HS [facility] Last Admin: 01/01/17 22:06 Dose: 100 mg - Objective Vital Signs: Vital Signs Temperature 98.8 F 06/22/17 06:00 Pulse Rate 107 H 01/02/17 08:00 Respiratory Rate 20 01/02/17 08:35 Blood Pressure 131/72 01/02/17 08:00 O2 Sat by Pulse Oximetry (%) 98 01/01/17 20:25 Constitutional: Yes: Other Eyes: Yes: WNL Neck: Yes: Supple Cardiovascular: Yes: S1, S2, S4 Respiratory: Yes: Diminished, Rales Gastrointestinal: Yes: Soft Genitourinary: Yes: Anuria Musculoskeletal: Yes: Muscle Weakness Extremities: Yes: Cool Edema: Yes Edema: LLE: Trace, RLE: Trace Peripheral Pulses WNL: No Peripheral Pulses: Left Doralis Pedis: 1+, Right Dorsalis Pedis: 1+ Integumentary: Yes: Other (left foot ulcer) Wound/Incision: Yes: Other Neurological: Yes: Lethargy, Weakness Psychiatric: Yes: Other (dementia) Labs: CBC, BMP 01/02/17 05:20 01/02/17 05:20 INR, PTT INR 1.35 (0.82-1.09) H 01/01/17 10:18 Abnormal Lab Results 01/02/17 01/02/17 01/02/17 05:20 05:20 05:20 WBC 13.5 H RBC 3.41 L Hgb 9.5 L Hct 29.3 L PTT (Actin FS) 35.0 H Random Glucose 159 H D Albumin 2.4 L 01/02/17 20:02 WBC RBC Hgb Hct PTT (Actin FS) 35.3 H Random Glucose Albumin - ....Imaging Other: Image Reviewed (telemetry: sinus tachycardia; STT changes) Problem List - Problems (1) ACS (acute coronary syndrome) Assessment/Plan: rising TNI, ekevated CK/CKMB relative index, EKG of sinus tachycardia with T wave changes. CTA: no PE. Continue metoprolol, lisinopril, ASA, clopidogrel. Add spironolactone (severely reduced LVEF; CAD). Code(s): I24.9 - ACUTE ISCHEMIC HEART DISEASE, UNSPECIFIED (2) Dementia Code(s): F03.90 - UNSPECIFIED DEMENTIA WITHOUT BEHAVIORAL DISTURBANCE Qualifiers: Dementia type: Alzheimer's disease Dementia behavioral disturbance: without behavioral disturbance (3) Infection of left foot Code(s): L08.9 - LOCAL INFECTION OF THE SKIN AND SUBCUTANEOUS TISSUE, UNSP (4) Tachycardia Code(s): R00.0 - TACHYCARDIA, UNSPECIFIED (5) Diabetes Code(s): E11.9 - TYPE 2 DIABETES MELLITUS WITHOUT COMPLICATIONS (6) Acute on chronic systolic (congestive) heart failure Assessment/Plan: Continue beta blockers, ACEI. Add spironolactone. Furosemide; f/u BUN/cr, electrolytes, Is and Os, daily weight. (Avoid excessive dehydration: severe aortic stenosis). Pt with severely reduced LVEF, ACS, severe aortic stenosis. Family has refused coronary angiogram and workup regarding valvular heart disease on previous admission; according to daughters, pt has shown steep decline in mental capacity within the past year, and they had wanted him to be kept comfortable. Code(s): I50.23 - ACUTE ON CHRONIC SYSTOLIC (CONGESTIVE) HEART FAILURE
[2017-01-02] MEDS ORDERED: PT OWN MED DRAWER 7, Y5N ONE (10:05)
[2017-01-02] MEDS ORDERED: LISINOPRIL 5 MG TABLET (FP) PO SCH (10:30)
[2017-01-02] MEDS: HEPARIN INFUSION - 500 ML IVPB SCH (12:00)
--- NOTE | 2017-01-02 12:43 | PN ---
Teaching Attending Note Name of Resident: Loren Ruiz ATTENDING PHYSICIAN STATEMENT I saw and evaluated the patient. I reviewed the resident's note and discussed the case with the resident. I agree with the resident's findings and plan as documented. SUBJECTIVE: Patient seen and examined in the ICU. Very lethargic and poorly arousable even to tactile stimuli. NAD on NC O2. No seizure activity. 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 Intake & Output 12/30/16 12/31/16 01/01/17 01/02/17 23:59 23:59 23:59 23:59 Intake Total 170 Output Total 300 300 Balance -300 -130 Weight 146 lb 11.2 oz 146 lb 8 oz Last Vital Signs Temp Pulse Resp BP Pulse Ox 98.8 F 107 H 20 131/72 99 01/02/17 06:00 01/02/17 08:00 01/02/17 08:35 01/02/17 08:00 01/02/17 12:07 Active Medications Aspirin (Asa -) 81 mg PO DAILY [facility] Last Admin: 01/02/17 10:00 Dose: Not Given Clopidogrel Bisulfate (Plavix -) 75 mg PO DAILY [facility] Collagenase (Santyl -) 1 applic TP DAILY [facility] Heparin Sodium (Porcine) (Heparin -) 5,000 unit IVPUSH PRN PRN PRN Reason: TACHYCARDIA Last Admin: 01/02/17 09:41 Dose: 5,000 unit Heparin Sodium (Porcine) (Heparin -) 1,000 unit IVPUSH PRN PRN PRN Reason: TACHYCARDIA Heparin Sodium/Dextrose (Heparin Infusion -) 500 mls @ 16 mls/hr IVPB TITR [facility] ; 800 UNITS/HR PRN Reason: Protocol Last Titration: 01/02/17 08:00 Dose: 1,100 units/hr Lisinopril (Prinivil) 2.5 mg PO DAILY [facility] Memantine (Namenda -) 10 mg PO BID [facility] Metformin HCl (Glucophage Xr -) 500 mg PO BIDI [facility] Metoprolol Succinate (Toprol Xl -) 25 mg PO DAILY [facility] Quetiapine Fumarate (Seroquel -) 25 mg PO BID [facility] Trazodone HCl (Desyrel -) 100 mg PO HS [facility] Last Admin: 01/01/17 22:06 Dose: 100 mg Constitutional: Yes: Poorly responsive, NAD Eyes: Yes: Conjunctiva Clear, pupils equal and reactive HENT: Yes: Atraumatic, Normocephalic Neck: Yes: Supple, Trachea Midline. No: Lymphadenopathy Cardiovascular: Yes: Pulse Irregular, S1, S2 Respiratory: Yes: On Nasal O2, Rales. No: Accessory Muscle Use, Cough Gastrointestinal: Yes: Normal Bowel Sounds, Soft ...Rectal Exam: Yes: Deferred Renal/: Yes: WNL Breast(s): Yes: WNL Musculoskeletal: Yes: WNL Extremities: Yes: bilateral foot and agosto ulcers, large L heel ulcer. All appear dry, without erythema, exudate. Peripheral Pulses WNL: Yes Integumentary: Yes: Other (ulcers bilaterally, bilateral great toe, L heel, bilateral agosto.) Wound/Incision: Yes: Clean/Dry Neurological: Yes: Poorly responsive No: Facial Droop, Seizure ...Motor Strength: WNL Labs: Laboratory Results - last 24 hr 01/01/17 01/01/17 01/01/17 09:50 11:47 15:10 WBC RBC Hgb Hct MCV MCHC RDW Plt Count MPV Neutrophils % Lymphocytes % Monocytes % Eosinophils % Basophils % PTT (Actin FS) Sodium Potassium Chloride Carbon Dioxide Anion Gap BUN Creatinine Creat Clearance w eGFR Random Glucose Lactic Acid 3.4 H* Calcium Total Bilirubin AST ALT Alkaline Phosphatase Creatine Kinase 168 D Creatine Kinase Index 6.4 H* CK-MB (CK-2) 10.927 H CK-MB (CK-2) Rel Index Troponin I 0.95 H* D Total Protein Albumin Urine Color [place] Urine Appearance Slcloudy Urine pH 5.0 Ur Specific [place] >= 1.030 H Urine Protein 2+ H Urine Glucose (UA) 3+ H Urine Ketones 2+ H Urine Blood Negative Urine Nitrite Negative Urine Bilirubin Negative Urine Urobilinogen Negative Ur Leukocyte Esterase 1+ H Urine RBC 7 Urine WBC 56 Ur Epithelial Cells Rare Hyaline Casts 11 Urine Mucus Moderate 01/01/17 01/01/17 01/01/17 15:10 22:00 22:00 WBC RBC Hgb Hct MCV MCHC RDW Plt Count MPV Neutrophils % Lymphocytes % Monocytes % Eosinophils % Basophils % PTT (Actin FS) 35.2 H Sodium Potassium Chloride Carbon Dioxide Anion Gap BUN Creatinine Creat Clearance w eGFR Random Glucose Lactic Acid Calcium Total Bilirubin AST ALT Alkaline Phosphatase Creatine Kinase 145 Creatine Kinase Index CK-MB (CK-2) CK-MB (CK-2) Rel Index Cancelled Troponin I 1.79 H* D Total Protein Albumin Urine Color Urine Appearance Urine pH Ur Specific [place] Urine Protein Urine Glucose (UA) Urine Ketones Urine Blood Urine Nitrite Urine Bilirubin Urine Urobilinogen Ur Leukocyte Esterase Urine RBC Urine WBC Ur Epithelial Cells Hyaline Casts Urine Mucus 01/02/17 01/02/17 01/02/17 05:20 05:20 05:20 WBC 13.5 H RBC 3.41 L Hgb 9.5 L Hct 29.3 L MCV 85.7 MCHC 32.6 RDW 14.0 Plt Count 422 MPV 8.2 Neutrophils % 79.5 Lymphocytes % 13.2 D Monocytes % 5.8 Eosinophils % 1.0 D Basophils % 0.5 PTT (Actin FS) 35.0 H Sodium 140 Potassium 3.8 Chloride 103 Carbon Dioxide 29 Anion Gap 8 BUN 18 Creatinine 0.9 Creat Clearance w eGFR > 60 Random Glucose 159 H D Lactic Acid Calcium 9.1 Total Bilirubin 0.3 D AST 25 ALT 22 Alkaline Phosphatase 79 Creatine Kinase Creatine Kinase Index CK-MB (CK-2) CK-MB (CK-2) Rel Index Troponin I Total Protein 6.8 Albumin 2.4 L Urine Color Urine Appearance Urine pH Ur Specific [place] Urine Protein Urine Glucose (UA) Urine Ketones Urine Blood Urine Nitrite Urine Bilirubin Urine Urobilinogen Ur Leukocyte Esterase Urine RBC Urine WBC Ur Epithelial Cells Hyaline Casts Urine Mucus Problem List - Problems (1) ACS (acute coronary syndrome) Code(s): I24.9 - ACUTE ISCHEMIC HEART DISEASE, UNSPECIFIED (2) CHF (congestive heart failure) Code(s): I50.9 - HEART FAILURE, UNSPECIFIED Qualifiers: Congestive heart failure type: systolic Congestive heart failure chronicity: acute Qualified Code(s): I50.21 - Acute systolic (congestive ) heart failure (3) Dementia Code(s): F03.90 - UNSPECIFIED DEMENTIA WITHOUT BEHAVIORAL DISTURBANCE Qualifiers: Dementia type: Alzheimer's disease Dementia behavioral disturbance: without behavioral disturbance (4) CAD (coronary artery disease) Code(s): I25.10 - ATHSCL HEART DISEASE OF [place] CORONARY ARTERY W/O ANG PCTRS (5) Open wound of left foot Code(s): S91.302A - UNSPECIFIED OPEN WOUND, LEFT FOOT, INITIAL ENCOUNTER Qualifiers: Encounter type: sequela Qualified Code(s): S91.302S - Unspecified open wound, left foot, sequela Assessment/Plan Acute Encephalopathy PAD CHF CAD DM Chronic foot ulcer UTI CHF exacerbation NSTEMI (?) PNA -> bilateral patchy infiltrates History of advancing dementia Aspiration precautions O2 as needed Neuro evaluation AC Beta tamika ID evaluation Need family meeting to review GOC Dr Qureshi Critical care time spent in reviewing chart, evaluating patient and formulating plan 35 min
[2017-01-02] MEDS ORDERED: PIPERACILLIN/TAZOB 3.375 GM/50 ML PRE-DOCKED IVPB ONE (14:00)
--- NOTE | 2017-01-02 14:51 | PN ---
Physical Exam: SUBJECTIVE: Patient seen and examined. He is lethargic and confused, not following commands. OBJECTIVE: Vital Signs Period Temp Pulse Resp BP Sys/Mcdaniel Pulse Ox Last 24 Hr 98.1 F-99.3 F 89-111 18-26 104-141/61-94 97-100 GENERAL: The patient is awake, confused. HEAD: Normal with no signs of trauma. EYES: PERRL, extraocular movements intact not assessed, sclera anicteric, conjunctiva clear. ENT: oropharynx clear without exudates, moist mucous membranes. NECK: Trachea midline, full range of motion, supple. LUNGS: Breath sounds equal, clear to auscultation bilaterally, no wheezes, no crackles, no accessory muscle use. HEART: Regular rate and rhythm, S1, S2, systolic murmur over right second intercostal space and apex rub or gallop. ABDOMEN: Soft, nontender, nondistended, normoactive bowel sounds, no guarding, no rebound, no hepatosplenomegaly, no masses. EXTREMITIES: warm, no edema. NEUROLOGICAL: Lethargic, no facial asymmetry, gait not observed. PSYCH: Normal mood, normal affect. SKIN: Warm, dry, normal turgor, no rashes, left heel dressing applied, left toe black necrotic tissue, right second toe necrotic. Laboratory Results - last 24 hr 01/01/17 01/01/17 01/01/17 15:10 15:10 22:00 WBC RBC Hgb Hct MCV MCHC RDW Plt Count MPV Neutrophils % Lymphocytes % Monocytes % Eosinophils % Basophils % PTT (Actin FS) 35.2 H Sodium Potassium Chloride Carbon Dioxide Anion Gap BUN Creatinine Creat Clearance w eGFR POC Glucometer Random Glucose Lactic Acid Calcium Total Bilirubin AST ALT Alkaline Phosphatase Creatine Kinase 168 D Creatine Kinase Index 6.4 H* CK-MB (CK-2) 10.927 H CK-MB (CK-2) Rel Index Cancelled Troponin I 0.95 H* D Total Protein Albumin 01/01/17 01/02/17 01/02/17 22:00 05:20 05:20 WBC 13.5 H RBC 3.41 L Hgb 9.5 L Hct 29.3 L MCV 85.7 MCHC 32.6 RDW 14.0 Plt Count 422 MPV 8.2 Neutrophils % 79.5 Lymphocytes % 13.2 D Monocytes % 5.8 Eosinophils % 1.0 D Basophils % 0.5 PTT (Actin FS) 35.0 H Sodium Potassium Chloride Carbon Dioxide Anion Gap BUN Creatinine Creat Clearance w eGFR POC Glucometer Random Glucose Lactic Acid Calcium Total Bilirubin AST ALT Alkaline Phosphatase Creatine Kinase 145 Creatine Kinase Index CK-MB (CK-2) CK-MB (CK-2) Rel Index Troponin I 1.79 H* D Total Protein Albumin 01/02/17 01/02/17 01/02/17 05:20 12:00 13:28 WBC RBC Hgb Hct MCV MCHC RDW Plt Count MPV Neutrophils % Lymphocytes % Monocytes % Eosinophils % Basophils % PTT (Actin FS) Sodium 140 Potassium 3.8 Chloride 103 Carbon Dioxide 29 Anion Gap 8 BUN 18 Creatinine 0.9 Creat Clearance w eGFR > 60 POC Glucometer 224.30226 Random Glucose 159 H D Lactic Acid 1.1 Calcium 9.1 Total Bilirubin 0.3 D AST 25 ALT 22 Alkaline Phosphatase 79 Creatine Kinase Creatine Kinase Index CK-MB (CK-2) CK-MB (CK-2) Rel Index Troponin I Total Protein 6.8 Albumin 2.4 L Active Medications Generic Name Dose Route Start Last Admin Trade Name Freq PRN Reason Stop Dose Admin Aspirin 81 mg 01/02/17 10:00 01/02/17 10:00 Asa - PO Not Given DAILY [facility] Clopidogrel Bisulfate 75 mg 01/02/17 10:00 Plavix - PO DAILY [facility] Collagenase 1 applic 01/02/17 10:00 Santyl - TP DAILY [facility] Heparin Sodium (Porcine) 5,000 unit 01/02/17 09:31 01/02/17 09:41 Heparin - IVPUSH 5,000 unit PRN PRN Administration TACHYCARDIA Heparin Sodium (Porcine) 1,000 unit 01/02/17 09:33 Heparin - IVPUSH PRN PRN TACHYCARDIA Heparin Sodium/Dextrose 500 mls @ 16 mls/hr 01/01/17 12:45 01/02/17 08:00 Heparin Infusion - IVPB 1,100 units/hr TITR [facility] Titration Protocol 800 UNITS/HR Vancomycin HCl 1,250 mg/ 250 mls @ 166.667 mls/hr 01/03/17 14:45 Dextrose IVPB 01/03/17 16:14 ONCE ONE Protocol Lisinopril 2.5 mg 01/02/17 10:30 Prinivil PO DAILY [facility] Memantine 10 mg 01/02/17 10:00 Namenda - PO BID [facility] Metformin HCl 500 mg 01/02/17 07:00 Glucophage Xr - PO BIDI [facility] Metoprolol Succinate 25 mg 01/02/17 10:00 Toprol Xl - PO DAILY [facility] Quetiapine Fumarate 25 mg 01/02/17 10:00 Seroquel - PO BID [facility] Trazodone HCl 100 mg 01/01/17 22:00 01/01/17 22:06 Desyrel - PO 100 mg HS [facility] Administration ASSESSMENT/PLAN: 76 year old man with PMH of PAD, CHF, CAD, DM, Alzheimer's, chronic foot ulcer p /w UTI, CHF exacerbation, NSTEMI CAD; -Heparin drip started, family refused cardiac cath. after discussion with Dr. Daly -Cardiology consulted -cardiac monitoring -troponins were trended, elevated -BB -ECHO shows global hypokinesis Sepsis: tachycardia, fever, elevated WBC -possible due to UTI/ulcer in left heel -Zosyn and Vancomycin given -ID consulted -Blood cx and Urine cx pending -consulted vascular surgeon -necrotic big toe left foot, big toe and third toe right foot DM type 2: -ISS -BGMs Alzheirmer's and AMS: -cont Seroquel -consulted Neurology -r/o infectious cause HTN -cont Toprol Hyperlipdemia -cont Lisinopril F/E/N: no/no/npo Disposition: transfer to telemetry Visit type - Emergency Visit Emergency Visit: Yes ED Registration Date: 01/01/17 Care time: The patient presented to the Emergency Department on the above date and was hospitalized for further evaluation of their emergent condition. - New Patient This patient is new to me today: Yes Date on this admission: 01/02/17 - Critical Care Critical Care patient: Yes Total Critical Care Time (in minutes): 40 Critical Care Statement: The care of this patient involved high complexity decision making to prevent further life threatening deterioration of the patient 's condition and/or to evalute & treat vital organ system(s) failure or risk of failure.
--- NOTE | 2017-01-02 14:58 | PN ---
Progress Note (short form) - Note Progress Note: ID consult dictated imp/reccd 76 year old man with Alzheimer's Dementia, CAD- with severe LV global hypokinesis on ECHO (family has refused cardiac cath, +stress test) recent admission in November , s/p angiogram and angioplasty 12/05 for ischemia with gangrene of the left heel readmitted with lethargy and worsening MS. now in ICU on heparin with +troponins asked to see for gangrenous heel ulcer heel wound with gangrene -foulsmellling necrotic big toe left foot, big toe and third toe right foot possible UTI f/u cultures, continue vancomycin and zosyn CAD-suspect chf, less likely pneumonia f/u cultures legionella urinary antigen for completeness
--- NOTE | 2017-01-02 15:24 | HP ---
Admitting History and Physical - Admission History of Present Illness: The patient is a 76 year old male, [place] with a significant past medical history of Alzheimer's, HLD, NIDDM, HTN, who presents to the emergency department with lethargy and worsening mental status since yesterday. The patient is here with his daughter who reports the patient waking up feeling more lethargic today. The daughter notes that yesterday he was more "sluggish" when walking up the 3 flights of steps to his apartment and seemed SOB while walking up stairs. Daughter denies recent fevers, chills, cough or any recent expressions of pain or discomfort by the pt. Daughter denies any recent nausea, vomit, diarrhea or constipation. Daughter denies any recent cough. This HPI is limited due to the patients worsening dementia and obtained primarily from daugther.. 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 Cardiovascular: Yes: Aortic Insufficiency, CAD, CHF, HTN, Hyperlipdemia Heme/Onc: Yes: Anemia Psych: Yes: Bipolar (Pt's daughter say he has dementia and ?manic depression) Endocrine: Yes: Diabetes Mellitus - Past Surgical History Past Surgical History: Yes: None - Smoking History Smoking history: Never smoked Have you smoked in the past 12 months: No - Alcohol/Substance Use Hx Alcohol Use: No - Social History ADL: Family Assistance History of Recent Travel: No Home Medications - Allergies Allergies/Adverse Reactions: Allergies Allergy/AdvReac Type Severity Reaction Status Date / Time No Known Allergies Allergy Verified 01/01/17 10:51 - Home Medications Home Medications: Ambulatory Orders Amlodipine Besylate [Norvasc -] 5 mg PO DAILY 10/04/16 Aspirin [ASA -] 81 mg PO DAILY 10/04/16 Clopidogrel Bisulfate [Plavix -] 75 mg PO DAILY 10/04/16 Cyanocobalamin (Vitamin B-12) [Vitamin B-12] 1,000 mcg PO DAILY 10/04/16 Donepezil HCl [Aricept -] 10 mg PO DAILY 10/04/16 Memantine HCl [Namenda -] 10 mg PO BID 10/04/16 Quetiapine Fumarate [Seroquel -] 25 mg PO BID 10/04/16 Quetiapine Fumarate [Seroquel -] 50 mg PO HS 10/04/16 Trazodone HCl 100 mg PO HS 10/04/16 Metformin HCl [Metformin HCl ER] 500 mg PO BID 11/26/16 Metoprolol Succinate [Toprol XL -] 25 mg PO DAILY #30 tab 12/06/16 Collagenase Clostridium Hist. [Santyl] 1 applic TP DAILY #90 oint...g. 12/16/16 Family Disease History - Family Disease History Family History: Unable to Obtain Review of Systems Unable to obtain ROS, reason: Dementia Physical Examination Vital Signs: Vital Signs Temperature 98.2 F 01/02/17 14:00 Pulse Rate 89 01/02/17 14:20 Respiratory Rate 16 01/02/17 14:00 Blood Pressure 114/68 01/02/17 14:00 O2 Sat by Pulse Oximetry (%) 97 01/02/17 14:20 Constitutional: Yes: No Distress Eyes: Yes: WNL HENT: Yes: WNL Neck: Yes: Supple Cardiovascular: Yes: WNL, Regular Rate and Rhythm Respiratory: Yes: WNL, Regular, CTA Bilaterally Gastrointestinal: Yes: WNL, Normal Bowel Sounds, Soft Musculoskeletal: Yes: WNL Extremities: Yes: WNL Neurological: Yes: Other (Awake Nonfocal) Labs: CBC, BMP 01/02/17 05:20 01/02/17 05:20 Problem List - Problems (1) ACS (acute coronary syndrome) Assessment/Plan: (+) Troponin Cont to trend Check echo As per cardio Code(s): I24.9 - ACUTE ISCHEMIC HEART DISEASE, UNSPECIFIED (2) Infection of left foot Assessment/Plan: Cont IV antibxs ID/vascular surgery consults Code(s): L08.9 - LOCAL INFECTION OF THE SKIN AND SUBCUTANEOUS TISSUE, UNSP (3) HTN (hypertension) Code(s): I10 - ESSENTIAL (PRIMARY) HYPERTENSION (4) Dementia Code(s): F03.90 - UNSPECIFIED DEMENTIA WITHOUT BEHAVIORAL DISTURBANCE Qualifiers: Dementia type: Alzheimer's disease Dementia behavioral disturbance: without behavioral disturbance (5) CAD (coronary artery disease) Code(s): I25.10 - ATHSCL HEART DISEASE OF [place] CORONARY ARTERY W/O ANG PCTRS
[2017-01-02] MEDS: VANCOMYCIN 1 GRAM (PRE-DOCKED) 1,000 MG/250 ML BAG IVPB SCH (15:55)
--- NOTE | 2017-01-02 16:41 | CONS ---
DATE OF CONSULTATION: DATE OF DICTATION: 01/02/2017 INFECTIOUS DISEASE CONSULTATION REQUESTING PHYSICIAN: Polly Lemos M.D. CONSULTING PHYSICIAN: Alexandria Caretr M.D. HISTORY OF PRESENT ILLNESS: This is a 76-year-old man with a history of Alzheimer dementia, coronary artery disease, diabetes. He had a recent positive stress test and family elected no aggressive care. They declined cardiac catheterization. He was admitted in November to the hospital because he had gangrene of his left heel. He underwent an angiogram on the with angioplasty with Dr. Kothari. He was discharged home after the procedure. His family noted he was lethargic, and they brought him to the emergency room. He was noted to have an elevated white count and a positive troponin, and he was admitted to the ICU. He is currently on IV heparin. There is no history per the chart of any fevers or recent chills, cough. The patient has been comfortable at home. He was noted to have a low grade temperature of 99 and a positive urinalysis with 55 white cells and leukocyte esterase. He was started on broad spectrum antibiotics. He was given fluids, and then he was given Lasix and BiPAP. Currently he is resting comfortably off BiPAP. He had a CT of his chest done which was negative for PE but showed bilateral infiltrates consistent with heart failure versus infection. He had an echocardiogram done that showed severe left global hypokinesis. As well it showed valvular heart disease. He has moderate to severe mitral regurgitation as well as moderate to severe aortic stenosis. I am asked to see him for antibiotic recommendations. He is awake but confused and unable to give any history. PAST MEDICAL HISTORY: Notable for history of CVA, dementia, diabetes, and he has had the recent angioplasty. He had history of coronary artery disease and positive stress test. He has no known drug allergies. 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 ALLERGIES: He has no known drug allergies. MEDICATION: Medications at home include metoprolol, metformin, Plavix, aspirin, Norvasc, Namenda, Aricept, vitamin B12, Santyl for his leg, trazodone and Seroquel. REVIEW OF SYSTEMS: Per the family is negative. PHYSICAL EXAMINATION: General: He is awake, but he is unable to give any history. Vital signs: Temperature 98.2, T-max has been 99.1, pulse is 89, blood pressure 114/68, respiratory rate 16, he is saturating 97% on 2 L, he is resting comfortably, he has no cough. White count on admission was 17.4, today is 13.5, hemoglobin 9.5, platelets are 422. His BUN and creatinine are 18 and 0.9, troponin is 1.79, LFTs are normal. Urinalysis is notable for 56 white cells. Urine and blood cultures are pending. IMPRESSION: In summary, this is an elderly man now in the intensive care unit on heparin for positive troponins, asked to see for gangrenous heel ulcer. His heel with gangrene is foul smelling, necrotic big toe on the left foot, big toe and third toe on the right foot would follow up, as well he has possible urinary tract infection. Would suggest continuing vancomycin and Zosyn and following up his cultures, coronary artery disease, I suspect congestive heart failure given the echo finding, less likely pneumonia. Would follow up his cultures, would check a legionella urinary antigen for completeness. Overall prognosis is extremely guarded given his multiple medical problems. ALEXANDRIA CARTER M.D. [id number]
[2017-01-02] MEDS: PIPERACILLIN/TAZOB 3.375 GM/50 ML PRE-DOCKED IVPB SCH (17:44)
--- NOTE | 2017-01-02 18:41 | CONSULT ---
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 Cardio/Vascular: Yes: Aortic Insufficiency, CAD, CHF, HTN, Hyperlipdemia Psych: Yes: Bipolar (Pt's daughter say he has dementia and ?manic depression) Endocrine: Yes: Diabetes Mellitus Additional Medical History: diabetic and PAD associated foot ulcers bilaterally - Past Surgical History Past Surgical History: Yes: None - Alcohol/Substance Use Hx Alcohol Use: No - Smoking History Smoking history: Never smoked Have you smoked in the past 12 months: No - Social History Usual Living Arrangement: With Spouse ADL: Family Assistance History of Recent Travel: No Home Medications - Allergies Allergies/Adverse Reactions: Allergies Allergy/AdvReac Type Severity Reaction Status Date / Time No Known Allergies Allergy Verified 01/01/17 10:51 - Home Medications Home Medications: Ambulatory Orders Amlodipine Besylate [Norvasc -] 5 mg PO DAILY 10/04/16 Aspirin [ASA -] 81 mg PO DAILY 10/04/16 Clopidogrel Bisulfate [Plavix -] 75 mg PO DAILY 10/04/16 Cyanocobalamin (Vitamin B-12) [Vitamin B-12] 1,000 mcg PO DAILY 10/04/16 Donepezil HCl [Aricept -] 10 mg PO DAILY 10/04/16 Memantine HCl [Namenda -] 10 mg PO BID 10/04/16 Quetiapine Fumarate [Seroquel -] 25 mg PO BID 10/04/16 Quetiapine Fumarate [Seroquel -] 50 mg PO HS 10/04/16 Trazodone HCl 100 mg PO HS 10/04/16 Metformin HCl [Metformin HCl ER] 500 mg PO BID 11/26/16 Metoprolol Succinate [Toprol XL -] 25 mg PO DAILY #30 tab 12/06/16 Collagenase Clostridium Hist. [Santyl] 1 applic TP DAILY #90 oint...g. 12/16/16 Physical Exam Vital Signs: Vital Signs Temperature 99.6 F 01/02/17 16:00 Pulse Rate 120 H 01/02/17 16:00 Respiratory Rate 17 01/02/17 16:00 Blood Pressure 128/82 01/02/17 16:00 O2 Sat by Pulse Oximetry (%) 95 01/02/17 17:57 Labs: CBC, BMP 01/02/17 05:20 01/02/17 05:20 Assessment/Plan VAscular Surgery The patient is a 76 year old male, [place] with a significant past medical history of Alzheimer's, HLD, NIDDM, HTN, who presents to the emergency department with lethargy and worsening mental status since yesterday. The patient is here with his daughter who reports the patient waking up feeling more lethargic today. The daughter notes that yesterday he was more "sluggish" when walking up the 3 flights of steps to his apartment and seemed SOB while walking up stairs. Daughter denies recent fevers, chills, cough or any recent expressions of pain or discomfort by the pt. Daughter denies any recent nausea, vomit, diarrhea or constipation. Daughter denies any recent cough. This HPI is limited due to the patients worsening dementia and obtained primarily from daugther.. Allergies: NKA Past surgical history: None reported. Social History: Nonsmoker. Denies EtOH use and recreational drug use. Primary Care Physician:Dr.James Orion [facility] - [place]/AT Lung - CTA Heart - RRR abd - soft,nt,nd ext - left heel -- with eschar, healing well. Great toe dry gangrene. Right foot -- cool to touch. ulcers in toes. A/P Pt well known to vascular service. Had angioplasty of tibial artery of left foot a month ago. Left foot is warm. Right foot is cool to touch. Will need angiogram of right lower extremity prior to DC. Will follow. Spoke to both daughters at bedside. No signs of any infection in bilateral lower ext. Devan Kothari DO
[2017-01-02] MEDS ORDERED: HEPARIN INFUSION - 500 ML IVPB SCH (19:06)
[2017-01-02] MEDS ORDERED: FUROSEMIDE 40 MG/4 ML INJECTABLE VIAL IVPUSH ONE (20:40)
[2017-01-02] MEDS ORDERED: FUROSEMIDE 40 MG/4 ML INJECTABLE VIAL ONE (20:42)
[2017-01-02] MEDS: MEMANTINE HCL 10 MG TABLET (FP) PO SCH (21:53)
[2017-01-02] MEDS: QUEtiapine FUMARATE 25 MG TABLET (FP) PO SCH (21:53)
[2017-01-02] MEDS: traZODone HCL 100 MG TABLET (FP) PO SCH (22:58)
[2017-01-02] MEDS ORDERED: METOPROLOL TARTRATE 5 MG/5 ML VIAL IVPUSH ONE (23:29)
[2017-01-03] MEDS: PIPERACILLIN/TAZOB 3.375 GM/50 ML PRE-DOCKED IVPB SCH ×3 (01:19→17:44)
[2017-01-03] MEDS: VANCOMYCIN 1 GRAM (PRE-DOCKED) 1,000 MG/250 ML BAG IVPB SCH ×2 (02:16→14:57)
[2017-01-03 06:31] LABS: BASOPHIL 0.7 % (0-2.0); EOSINOPHIL 0.1 % (0-4.5); MCH 27.5 pg (25.7-33.7); MCHC 32.5 g/dl (32.0-35.9); MEAN CELL VOLUME 84.6 fl (80-96); MEAN PLT VOLUME 8.6 fl (7.5-11.1); NEUTROPHILS 85.3 % (42.8-82.8); PLATELET COUNT 449 K/MM3 (134-434); RDW 14.2 % (11.9-15.9)
[2017-01-03 06:57] LABS: ALBUMIN 2.3 g/dl (3.4-5.0); ANION GAP 11 (8-16); CALCIUM 8.8 mg/dL (8.5-10.1); CO2 29 mmol/L (21-32); CREATININE 1.2 mg/dL (0.7-1.3); GLUCOSE,RANDOM 220 mg/dL (74-106); SGOT/AST 24 U/L (15-37); SGPT/ALT 24 U/L (12-78)
[2017-01-03 06:59] LABS: ALK PHOS 93 U/L (45-117); BILIRUBIN,TOTAL 0.4 mg/dL (0.2-1.0); TOT PROT 6.7 g/dl (6.4-8.2)
--- NOTE | 2017-01-03 10:37 | PN ---
Progress Note, Physician History of Present Illness: Awake, responsive No c/o foot pain No fever/ chills WBC remains elevated - Current Medication List Current Medications: Active Medications Aspirin (Asa -) 81 mg PO DAILY [facility] Clopidogrel Bisulfate (Plavix -) 75 mg PO DAILY [facility] Collagenase (Santyl -) 1 applic TP DAILY [facility] Heparin Sodium (Porcine) (Heparin -) 1,000 unit IVPUSH PRN PRN PRN Reason: Heparin Heparin Sodium (Porcine) (Heparin -) 5,000 unit IVPUSH PRN PRN PRN Reason: Heparin Heparin Sodium/Dextrose (Heparin Infusion -) 500 mls @ 16 mls/hr IVPB TITR [facility] ; 800 UNITS/HR PRN Reason: Protocol Last Titration: 01/03/17 01:49 Dose: 1,150 units/hr Lisinopril (Prinivil) 2.5 mg PO DAILY [facility] Memantine (Namenda -) 10 mg PO BID [facility] Last Admin: 01/02/17 21:53 Dose: 10 mg Metformin HCl (Glucophage Xr -) 500 mg PO BIDI [facility] Last Admin: 01/03/17 06:54 Dose: 500 mg Metoprolol Succinate (Toprol Xl -) 25 mg PO DAILY [facility] Piperacillin Sod/Tazobactam Sod (Zosyn 3.375gm Ivpb (Pre-Docked)) 3.375 gm IVPB Q8H-IV [facility] PRN Reason: Protocol Last Admin: 01/03/17 01:19 Dose: 3.375 gm Quetiapine Fumarate (Seroquel -) 25 mg PO BID [facility] Last Admin: 01/02/17 21:53 Dose: 25 mg Trazodone HCl (Desyrel -) 100 mg PO [facility] Last Admin: 01/02/17 22:58 Dose: 100 mg Vancomycin HCl (Vancomycin (Pre-Docked)) 1,000 mg IVPB Q12H [facility] PRN Reason: Protocol Last Admin: 01/03/17 02:16 Dose: 1,000 mg - Objective Vital Signs: Vital Signs Temperature 99.6 F 01/03/17 06:00 Pulse Rate 102 H 01/03/17 08:00 Respiratory Rate 18 01/03/17 08:00 Blood Pressure 144/83 01/03/17 08:00 O2 Sat by Pulse Oximetry (%) 100 01/03/17 06:43 Constitutional: Yes: No Distress Eyes: Yes: Conjunctiva Clear Cardiovascular: Yes: Regular Rate and Rhythm, S1, S2 Respiratory: Yes: CTA Bilaterally Gastrointestinal: Yes: Normal Bowel Sounds, Soft. No: Tenderness Extremities: Yes: Other (+ dry gangrene f heel and great toe) Labs: CBC, BMP 01/03/17 05:20 01/03/17 05:20 INR, PTT INR 1.35 (0.82-1.09) H 01/01/17 10:18 Assessment/Plan Gangrene, foot Leukocytosis OBS Continue empiric zosyn/vancomycin
[2017-01-03] MEDS: QUEtiapine FUMARATE 25 MG TABLET (FP) PO SCH ×2 (11:19→21:27)
[2017-01-03] MEDS: LISINOPRIL 5 MG TABLET (FP) PO SCH (11:19)
[2017-01-03] MEDS: CLOPIDOGREL BISULFATE 75 MG TABLET (FP) PO SCH (11:19)
[2017-01-03] MEDS: METOPROLOL SUCCINATE 25 MG TAB.SR.24H (FP) PO SCH (11:19)
[2017-01-03] MEDS: ASPIRIN 81 MG CHEWABLE TABLETS PO SCH (11:20)
[2017-01-03] MEDS: COLLAGENASE CLOSTRIDIUM HIST. 30 GRAMS TUBE TP SCH (11:20)
[2017-01-03] MEDS: MEMANTINE HCL 10 MG TABLET (FP) PO SCH ×2 (11:20→21:27)
--- NOTE | 2017-01-03 11:50 | PN ---
Teaching Attending Note Name of Resident: Loren Ruiz ATTENDING PHYSICIAN STATEMENT I saw and evaluated the patient. I reviewed the resident's note and discussed the case with the resident. I agree with the resident's findings and plan as documented. SUBJECTIVE: Patient seen and examined in the ICU. More awake and alert and responsive. NAD on NC O2. Intake & Output 12/31/16 01/01/17 01/02/17 01/03/17 23:59 23:59 23:59 23:59 Intake Total 870 650 Output Total 300 500 Balance -300 370 650 Weight 146 lb 11.2 oz 146 lb 8 oz 146 lb 8 oz Last Vital Signs Temp Pulse Resp BP Pulse Ox 99.6 F 91 H 20 108/59 99 01/03/17 06:00 01/03/17 10:41 01/03/17 10:00 01/03/17 10:00 01/03/17 10:41 Active Medications Aspirin (Asa -) 81 mg PO DAILY [facility] Last Admin: 01/03/17 11:20 Dose: 81 mg Clopidogrel Bisulfate (Plavix -) 75 mg PO DAILY [facility] Last Admin: 01/03/17 11:19 Dose: 75 mg Collagenase (Santyl -) 1 applic TP DAILY [facility] Last Admin: 01/03/17 11:20 Dose: 1 applic Heparin Sodium (Porcine) (Heparin -) 1,000 unit IVPUSH PRN PRN PRN Reason: Heparin Heparin Sodium (Porcine) (Heparin -) 5,000 unit IVPUSH PRN PRN PRN Reason: Heparin Heparin Sodium/Dextrose (Heparin Infusion -) 500 mls @ 16 mls/hr IVPB TITR LUCY ; 800 UNITS/HR PRN Reason: Protocol Last Titration: 01/03/17 01:49 Dose: 1,150 units/hr Lisinopril (Prinivil) 2.5 mg PO DAILY [facility] Last Admin: 01/03/17 11:19 Dose: 2.5 mg Memantine (Namenda -) 10 mg PO BID [facility] Last Admin: 01/03/17 11:20 Dose: 10 mg Metformin HCl (Glucophage Xr -) 500 mg PO BIDI [facility] Last Admin: 01/03/17 06:54 Dose: 500 mg Metoprolol Succinate (Toprol Xl -) 25 mg PO DAILY [facility] Last Admin: 01/03/17 11:19 Dose: 25 mg Piperacillin Sod/Tazobactam Sod (Zosyn 3.375gm Ivpb (Pre-Docked)) 3.375 gm IVPB Q8H-IV [facility] PRN Reason: Protocol Last Admin: 01/03/17 11:13 Dose: 3.375 gm Quetiapine Fumarate (Seroquel -) 25 mg PO BID [facility] Last Admin: 01/03/17 11:19 Dose: 25 mg Trazodone HCl (Desyrel -) 100 mg PO HS [facility] Last Admin: 01/02/17 22:58 Dose: 100 mg Vancomycin HCl (Vancomycin (Pre-Docked)) 1,000 mg IVPB Q12H [facility] PRN Reason: Protocol Last Admin: 01/03/17 02:16 Dose: 1,000 mg Constitutional: Yes: More responsive, NAD Eyes: Yes: Conjunctiva Clear, pupils equal and reactive HENT: Yes: Atraumatic, Normocephalic Neck: Yes: Supple, Trachea Midline. No: Lymphadenopathy Cardiovascular: Yes: Pulse Irregular, S1, S2 Respiratory: Yes: On Nasal O2, Rales. No: Accessory Muscle Use, Cough Gastrointestinal: Yes: Normal Bowel Sounds, Soft ...Rectal Exam: Yes: Deferred Renal/: Yes: WNL Breast(s): Yes: WNL Musculoskeletal: Yes: WNL Extremities: Yes: bilateral foot and agosto ulcers, large L heel ulcer. All appear dry, without erythema, exudate. Peripheral Pulses WNL: Yes Integumentary: Yes: Other (ulcers bilaterally, bilateral great toe, L heel, bilateral agosto.) Wound/Incision: Yes: Clean/Dry Neurological: Yes: Poorly responsive No: Facial Droop, Seizure ...Motor Strength: WNL Labs: Laboratory Results - last 24 hr 01/02/17 01/02/17 01/02/17 12:00 13:28 19:13 WBC RBC Hgb Hct MCV MCHC RDW Plt Count MPV Neutrophils % Lymphocytes % Monocytes % Eosinophils % Basophils % PTT (Actin FS) Sodium Potassium Chloride Carbon Dioxide Anion Gap BUN Creatinine Creat Clearance w eGFR POC Glucometer [phone] Random Glucose Lactic Acid 1.1 Calcium Total Bilirubin AST ALT Alkaline Phosphatase Total Protein Albumin 01/02/17 01/03/17 01/03/17 20:02 01:00 05:20 WBC 17.0 H RBC 3.46 L Hgb 9.5 L Hct 29.3 L MCV 84.6 MCHC 32.5 RDW 14.2 Plt Count 449 H MPV 8.6 Neutrophils % 85.3 H Lymphocytes % 8.7 D Monocytes % 5.2 Eosinophils % 0.1 D Basophils % 0.7 PTT (Actin FS) 35.3 H 90.5 H D Sodium Potassium Chloride Carbon Dioxide Anion Gap BUN Creatinine Creat Clearance w eGFR POC Glucometer Random Glucose Lactic Acid Calcium Total Bilirubin AST ALT Alkaline Phosphatase Total Protein Albumin 01/03/17 05:20 WBC RBC Hgb Hct MCV MCHC RDW Plt Count MPV Neutrophils % Lymphocytes % Monocytes % Eosinophils % Basophils % PTT (Actin FS) Sodium 140 Potassium 3.7 Chloride 100 Carbon Dioxide 29 Anion Gap 11 BUN 19 H Creatinine 1.2 D Creat Clearance w eGFR 58.86 POC Glucometer Random Glucose 220 H D Lactic Acid Calcium 8.8 Total Bilirubin 0.4 D AST 24 ALT 24 Alkaline Phosphatase 93 Total Protein 6.7 Albumin 2.3 L Problem List - Problems (1) ACS (acute coronary syndrome) Code(s): I24.9 - ACUTE ISCHEMIC HEART DISEASE, UNSPECIFIED (2) CHF (congestive heart failure) Code(s): I50.9 - HEART FAILURE, UNSPECIFIED Qualifiers: Congestive heart failure type: systolic Congestive heart failure chronicity: acute Qualified Code(s): I50.21 - Acute systolic (congestive ) heart failure (3) Dementia Code(s): F03.90 - UNSPECIFIED DEMENTIA WITHOUT BEHAVIORAL DISTURBANCE Qualifiers: Dementia type: Alzheimer's disease Dementia behavioral disturbance: without behavioral disturbance (4) CAD (coronary artery disease) Code(s): I25.10 - ATHSCL HEART DISEASE OF [place] CORONARY ARTERY W/O ANG PCTRS (5) Open wound of left foot Code(s): S91.302A - UNSPECIFIED OPEN WOUND, LEFT FOOT, INITIAL ENCOUNTER Qualifiers: Encounter type: sequela Qualified Code(s): S91.302S - Unspecified open wound, left foot, sequela Assessment/Plan Acute Encephalopathy PAD CHF CAD DM Chronic foot ulcer UTI CHF exacerbation NSTEMI (?) PNA -> bilateral patchy infiltrates History of advancing dementia Aspiration precautions O2 as needed Neuro evaluation AC Beta tamika ABX per ID Dr Qureshi Critical care time spent in reviewing chart, evaluating patient and formulating plan 35 min
[2017-01-03] MEDS ORDERED: VANCOMYCIN 1,250 MG in DEXTROSE 5%-WATER - 250 ML IVPB ONE (14:45)
[2017-01-03] MEDS: SPIRONOLACTONE 25 MG TABLET (FP) PO SCH (15:05)
--- NOTE | 2017-01-03 17:00 | PN ---
Physical Exam: SUBJECTIVE: Patient seen and examined in ICU. He is feeling better today, more awake and alert. OBJECTIVE: Vital Signs Period Temp Pulse Resp BP Sys/Mcdaniel Pulse Ox Last 24 Hr 98.2 F-99.6 F 91-160 11-28 96-144/58-89 91-100 GENERAL: The patient is awake, not oriented to time and place. HEAD: Normal with no signs of trauma. EYES: PERRL, extraocular movements intact not assessed, sclera anicteric, conjunctiva clear. ENT: oropharynx clear without exudates, moist mucous membranes. NECK: Trachea midline, full range of motion, supple. LUNGS: Breath sounds equal, clear to auscultation bilaterally, no wheezes, no crackles, no accessory muscle use. HEART: Regular rate and rhythm, S1, S2, systolic murmur over right second intercostal space and apex rub or gallop. ABDOMEN: Soft, nontender, nondistended, normoactive bowel sounds, no guarding, no rebound, no hepatosplenomegaly, no masses. EXTREMITIES: warm, no edema. NEUROLOGICAL: Lethargic, no facial asymmetry, gait not observed. PSYCH: Normal mood, normal affect. SKIN: Warm, dry, normal turgor, no rashes, left heel dressing applied, left toe black necrotic tissue, right toe necrotic. Laboratory Results - last 24 hr 01/02/17 01/02/17 01/03/17 19:13 20:02 01:00 WBC RBC Hgb Hct MCV MCHC RDW Plt Count MPV Neutrophils % Lymphocytes % Monocytes % Eosinophils % Basophils % PTT (Actin FS) 35.3 H 90.5 H D Sodium Potassium Chloride Carbon Dioxide Anion Gap BUN Creatinine Creat Clearance w eGFR POC Glucometer [phone] Random Glucose Calcium Total Bilirubin AST ALT Alkaline Phosphatase Total Protein Albumin 01/03/17 01/03/17 05:20 05:20 WBC 17.0 H RBC 3.46 L Hgb 9.5 L Hct 29.3 L MCV 84.6 MCHC 32.5 RDW 14.2 Plt Count 449 H MPV 8.6 Neutrophils % 85.3 H Lymphocytes % 8.7 D Monocytes % 5.2 Eosinophils % 0.1 D Basophils % 0.7 PTT (Actin FS) Sodium 140 Potassium 3.7 Chloride 100 Carbon Dioxide 29 Anion Gap 11 BUN 19 H Creatinine 1.2 D Creat Clearance w eGFR 58.86 POC Glucometer Random Glucose 220 H D Calcium 8.8 Total Bilirubin 0.4 D AST 24 ALT 24 Alkaline Phosphatase 93 Total Protein 6.7 Albumin 2.3 L Active Medications Generic Name Dose Route Start Last Admin Trade Name Alisha PRN Reason Stop Dose Admin Aspirin 81 mg 01/03/17 10:00 01/03/17 11:20 Asa - PO 81 mg DAILY LUCY Administration Clopidogrel Bisulfate 75 mg 01/03/17 10:00 01/03/17 11:19 Plavix - PO 75 mg DAILY LUCY Administration Collagenase 1 applic 01/03/17 10:00 01/03/17 11:20 Santyl - TP 1 applic DAILY LUCY Administration Lisinopril 2.5 mg 01/03/17 10:00 01/03/17 11:19 Prinivil PO 2.5 mg DAILY LUCY Administration Memantine 10 mg 01/02/17 22:00 01/03/17 11:20 Namenda - PO 10 mg BID LUCY Administration Metformin HCl 500 mg 01/03/17 07:00 01/03/17 06:54 Glucophage Xr - PO 500 mg BIDI LUCY Administration Metoprolol Succinate 25 mg 01/03/17 10:00 01/03/17 11:19 Toprol Xl - PO 25 mg DAILY LUCY Administration Piperacillin Sod/Tazobactam Sod 3.375 gm 01/02/17 18:00 01/03/17 11:13 Zosyn 3.375gm Ivpb (Pre-Docked) IVPB 3.375 gm Q8H-IV LUCY Administration Protocol Quetiapine Fumarate 25 mg 01/02/17 22:00 01/03/17 11:19 Seroquel - PO 25 mg BID LUCY Administration Spironolactone 25 mg 01/03/17 14:30 01/03/17 15:05 Aldactone - PO 25 mg DAILY LUCY Administration Trazodone HCl 100 mg 01/02/17 22:00 01/02/17 22:58 Desyrel - PO 100 mg HS LUCY Administration Vancomycin HCl 1,000 mg 01/02/17 15:15 01/03/17 14:57 Vancomycin (Pre-Docked) IVPB 1,000 mg Q12H LUCY Administration Protocol ASSESSMENT/PLAN: 76 year old man with PMH of PAD, CHF, CAD, DM, Alzheimer's, chronic foot ulcer p /w UTI, CHF exacerbation, NSTEMI CAD; -Heparin drip started, family refused cardiac cath. after discussion with Dr. Daly -Cardiology consulted -cardiac monitoring -troponins were trended, elevated -BB -ECHO shows global hypokinesis Sepsis: tachycardia, fever, elevated WBC -possible due to UTI/ulcer in left heel -continue Zosyn and Vancomycin -ID consulted -Blood cx and Urine cx pending -consulted vascular surgeon -necrotic big toe left foot, big toe and third toe right foot DM type 2: -ISS -BGMs Alzheirmer's and AMS: -cont. Seroquel -consulted Neurology -r/o infectious cause HTN -cont Toprol Hyperlipdemia -cont Lisinopril F/E/N: no/no/sodium controlled diet Disposition: transfer to telemetry Problem List - Problems (1) ACS (acute coronary syndrome) Code(s): I24.9 - ACUTE ISCHEMIC HEART DISEASE, UNSPECIFIED (2) Dementia Code(s): F03.90 - UNSPECIFIED DEMENTIA WITHOUT BEHAVIORAL DISTURBANCE Qualifiers: Dementia type: Alzheimer's disease Dementia behavioral disturbance: without behavioral disturbance (3) Infection of left foot Code(s): L08.9 - LOCAL INFECTION OF THE SKIN AND SUBCUTANEOUS TISSUE, UNSP (4) CAD (coronary artery disease) Code(s): I25.10 - ATHSCL HEART DISEASE OF [place] CORONARY ARTERY W/O ANG PCTRS (5) Open wound of left foot Code(s): S91.302A - UNSPECIFIED OPEN WOUND, LEFT FOOT, INITIAL ENCOUNTER Qualifiers: Encounter type: sequela Qualified Code(s): S91.302S - Unspecified open wound, left foot, sequela (6) Diabetes Code(s): E11.9 - TYPE 2 DIABETES MELLITUS WITHOUT COMPLICATIONS (7) HTN (hypertension) Code(s): I10 - ESSENTIAL (PRIMARY) HYPERTENSION Visit type - Emergency Visit Emergency Visit: Yes ED Registration Date: 01/01/17 Care time: The patient presented to the Emergency Department on the above date and was hospitalized for further evaluation of their emergent condition. - New Patient This patient is new to me today: No - Critical Care Critical Care patient: Yes Total Critical Care Time (in minutes): 40 Critical Care Statement: The care of this patient involved high complexity decision making to prevent further life threatening deterioration of the patient 's condition and/or to evalute & treat vital organ system(s) failure or risk of failure.
[2017-01-03] MEDS ORDERED: PT OWN MED DRAWER 7, Y5N ONE (17:46)
[2017-01-03] MEDS: morphine CARPU-JECT 2 MG/1 ML DISP.SYRIN IVPUSH PRN (20:30)
[2017-01-03] MEDS ORDERED: morphine CARPU-JECT 2 MG/1 ML DISP.SYRIN ONE (20:38)
[2017-01-03] MEDS ORDERED: morphine CARPU-JECT 4 MG/1 ML DISP.SYRIN IVPUSH PRN (20:44)
--- NOTE | 2017-01-03 20:56 | CONSULT ---
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 He is s/p small bowel resection, was transferred to the floor from the ICU 2 days ago. He returns today with N/V , abdominal pain and distention, also SOB. He was admitted to the ICU, a NGT was placed with 2100mL of bilious drainage. His respiratory status and abdominal distention are better post decompression. 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 Cardio/Vascular: Yes: Aortic Insufficiency, CAD, CHF, HTN, Hyperlipdemia Gastrointestinal: Yes: Other (SBO, intrabdominal tumor) Psych: Yes: Bipolar (Pt's daughter say he has dementia and ?manic depression) Endocrine: Yes: Diabetes Mellitus Additional Medical History: diabetic and PAD associated foot ulcers bilaterally - Past Surgical History Past Surgical History: Yes: None - Alcohol/Substance Use Hx Alcohol Use: No - Smoking History Smoking history: Never smoked Have you smoked in the past 12 months: No - Social History Usual Living Arrangement: With Spouse ADL: Family Assistance History of Recent Travel: No Home Medications - Allergies Allergies/Adverse Reactions: Allergies Allergy/AdvReac Type Severity Reaction Status Date / Time No Known Allergies Allergy Verified 01/01/17 10:51 - Home Medications Home Medications: Ambulatory Orders Amlodipine Besylate [Norvasc -] 5 mg PO DAILY 10/04/16 Aspirin [ASA -] 81 mg PO DAILY 10/04/16 Clopidogrel Bisulfate [Plavix -] 75 mg PO DAILY 10/04/16 Cyanocobalamin (Vitamin B-12) [Vitamin B-12] 1,000 mcg PO DAILY 10/04/16 Donepezil HCl [Aricept -] 10 mg PO DAILY 10/04/16 Memantine HCl [Namenda -] 10 mg PO BID 10/04/16 Quetiapine Fumarate [Seroquel -] 25 mg PO BID 10/04/16 Quetiapine Fumarate [Seroquel -] 50 mg PO HS 10/04/16 Trazodone HCl 100 mg PO HS 10/04/16 Metformin HCl [Metformin HCl ER] 500 mg PO BID 11/26/16 Metoprolol Succinate [Toprol XL -] 25 mg PO DAILY #30 tab 12/06/16 Collagenase Clostridium Hist. [Santyl] 1 applic TP DAILY #90 oint...g. 12/16/16 Review of Systems Unable to obtain ROS, reason: pt is unable to answer Physical Exam Vital Signs: Vital Signs Temperature 98.2 F 01/03/17 14:00 Pulse Rate 98 H 01/03/17 18:00 Respiratory Rate 21 01/03/17 18:00 Blood Pressure 109/57 01/03/17 18:00 O2 Sat by Pulse Oximetry (%) 97 01/03/17 17:12 Constitutional: Yes: Cachectic, Moderate Distress, Thin Eyes: Yes: PERRL Neck: Yes: Supple, Trachea Midline Cardiovascular: Yes: Tachycardia, S1, S2 Respiratory: Yes: Diminished, On Nasal O2, Tachypnea Gastrointestinal: Yes: Distention, Hypoactive Bowel Sounds, Tenderness Extremities: Yes: Cool Edema: LUE: Trace, RUE: Trace Labs: CBC, BMP 01/03/17 05:20 01/03/17 05:20 Imaging - Results Chest X-ray: Image Reviewed X-ray: Pending Cat Scan: Pending Problem List - Problems (1) CHF (congestive heart failure) Code(s): I50.9 - HEART FAILURE, UNSPECIFIED Qualifiers: Congestive heart failure type: systolic Congestive heart failure chronicity: acute Qualified Code(s): I50.21 - Acute systolic (congestive ) heart failure (2) Dementia Code(s): F03.90 - UNSPECIFIED DEMENTIA WITHOUT BEHAVIORAL DISTURBANCE Qualifiers: Dementia type: Alzheimer's disease Dementia behavioral disturbance: without behavioral disturbance (3) Ileus following gastrointestinal surgery Code(s): K91.3 - POSTPROCEDURAL INTESTINAL OBSTRUCTION (4) Small bowel obstruction Code(s): K56.69 - OTHER INTESTINAL OBSTRUCTION Assessment/Plan Post-op ileus s/p ex-lap and small bowel resection for 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
[2017-01-03] MEDS: traZODone HCL 100 MG TABLET (FP) PO SCH (21:27)
--- NOTE | 2017-01-04 00:04 | PN ---
Progress Note, Physician History of Present Illness: No new complaints - Current Medication List Current Medications: Active Medications Aspirin (Asa -) 81 mg PO DAILY [facility] Last Admin: 01/03/17 11:20 Dose: 81 mg Clopidogrel Bisulfate (Plavix -) 75 mg PO DAILY [facility] Last Admin: 01/03/17 11:19 Dose: 75 mg Collagenase (Santyl -) 1 applic TP DAILY [facility] Last Admin: 01/03/17 11:20 Dose: 1 applic Lisinopril (Prinivil) 2.5 mg PO DAILY [facility] Last Admin: 01/03/17 11:19 Dose: 2.5 mg Memantine (Namenda -) 10 mg PO BID [facility] Last Admin: 01/03/17 21:27 Dose: 10 mg Metformin HCl (Glucophage Xr -) 500 mg PO BIDI [facility] Last Admin: 01/03/17 17:46 Dose: 500 mg Metoprolol Succinate (Toprol Xl -) 25 mg PO DAILY [facility] Last Admin: 01/03/17 11:19 Dose: 25 mg Morphine Sulfate (Morphine Injection -) 2 mg IVPUSH Q4H PRN PRN Reason: PAIN LEVEL 1-5 Last Admin: 01/03/17 20:30 Dose: 2 mg Morphine Sulfate (Morphine Injection -) 4 mg IVPUSH Q4H PRN PRN Reason: PAIN LEVEL 6-10 Piperacillin Sod/Tazobactam Sod (Zosyn 3.375gm Ivpb (Pre-Docked)) 3.375 gm IVPB Q8H-IV LUCY PRN Reason: Protocol Last Admin: 01/03/17 17:44 Dose: 3.375 gm Quetiapine Fumarate (Seroquel -) 25 mg PO BID [facility] Last Admin: 01/03/17 21:27 Dose: 25 mg Spironolactone (Aldactone -) 25 mg PO DAILY [facility] Last Admin: 01/03/17 15:05 Dose: 25 mg Trazodone HCl (Desyrel -) 100 mg PO HS [facility] Last Admin: 01/03/17 21:27 Dose: 100 mg Vancomycin HCl (Vancomycin (Pre-Docked)) 1,000 mg IVPB Q12H [facility] PRN Reason: Protocol Last Admin: 01/03/17 14:57 Dose: 1,000 mg - Objective Vital Signs: Vital Signs Temperature 99.4 F 01/03/17 22:00 Pulse Rate 96 H 01/03/17 22:00 Respiratory Rate 14 01/03/17 22:00 Blood Pressure 105/59 01/03/17 22:00 O2 Sat by Pulse Oximetry (%) 95 01/03/17 20:53 Eyes: Yes: WNL HENT: Yes: WNL Neck: Yes: Supple Cardiovascular: Yes: WNL, Regular Rate and Rhythm Respiratory: Yes: Dullness Gastrointestinal: Yes: WNL, Normal Bowel Sounds, Soft Labs: CBC, BMP 01/03/17 05:20 01/03/17 05:20 INR, PTT INR 1.35 (0.82-1.09) H 01/01/17 10:18 Problem List - Problems (1) ACS (acute coronary syndrome) Code(s): I24.9 - ACUTE ISCHEMIC HEART DISEASE, UNSPECIFIED (2) Acute on chronic systolic (congestive) heart failure Code(s): I50.23 - ACUTE ON CHRONIC SYSTOLIC (CONGESTIVE) HEART FAILURE (3) Dementia Code(s): F03.90 - UNSPECIFIED DEMENTIA WITHOUT BEHAVIORAL DISTURBANCE Qualifiers: Dementia type: Alzheimer's disease Dementia behavioral disturbance: without behavioral disturbance (4) Infection of left foot Code(s): L08.9 - LOCAL INFECTION OF THE SKIN AND SUBCUTANEOUS TISSUE, UNSP (5) CAD (coronary artery disease) Code(s): I25.10 - ATHSCL HEART DISEASE OF [place] CORONARY ARTERY W/O ANG PCTRS (6) Diabetes Code(s): E11.9 - TYPE 2 DIABETES MELLITUS WITHOUT COMPLICATIONS (7) HTN (hypertension) Code(s): I10 - ESSENTIAL (PRIMARY) HYPERTENSION
[2017-01-04] MEDS ORDERED: HALOPERIDOL LACTATE 5 MG/ML IM ONE (01:26)
[2017-01-04] MEDS: PIPERACILLIN/TAZOB 3.375 GM/50 ML PRE-DOCKED IVPB SCH ×2 (02:50→15:26)
[2017-01-04] MEDS: VANCOMYCIN 1 GRAM (PRE-DOCKED) 1,000 MG/250 ML BAG IVPB SCH (03:06)
[2017-01-04] MEDS: morphine CARPU-JECT 2 MG/1 ML DISP.SYRIN IVPUSH PRN ×2 (04:03→16:27)
[2017-01-04 08:17] LABS: MCH 27.7 pg (25.7-33.7); MCHC 32.3 g/dl (32.0-35.9); MEAN CELL VOLUME 85.7 fl (80-96); MEAN PLT VOLUME 8.3 fl (7.5-11.1); PLATELET COUNT 426 K/MM3 (134-434); RDW 14.4 % (11.9-15.9); WHITE BLOOD COUNT 12.8 K/mm3 (4.0-10.0)
[2017-01-04 08:28] LABS: ALBUMIN 2.3 g/dl (3.4-5.0); ANION GAP 11 (8-16); CALCIUM 9.1 mg/dL (8.5-10.1); CO2 29 mmol/L (21-32); GLUCOSE,RANDOM 187 mg/dL (74-106); SGOT/AST 21 U/L (15-37)
[2017-01-04 08:33] LABS: ALK PHOS 76 U/L (45-117); BILIRUBIN,TOTAL 0.6 mg/dL (0.2-1.0); CREATININE 0.9 mg/dL (0.7-1.3); SGPT/ALT 23 U/L (12-78); TOT PROT 6.4 g/dl (6.4-8.2)
--- NOTE | 2017-01-04 10:06 | PN ---
Progress Note (short form) - Note Progress Note: Patient seen and examined in the ICU. Awake and alert and responsive. NAD on NC O2. Intake & Output 01/01/17 01/02/17 01/03/17 01/04/17 23:59 23:59 23:59 23:59 Intake Total 870 1250 450 Output Total 300 500 250 Balance -687 158 0592 450 Weight 146 lb 11.2 oz 146 lb 8 oz 146 lb 8 oz 148 lb 9.6 oz Last Vital Signs Temp Pulse Resp BP Pulse Ox 98.9 F 88 16 133/61 95 01/04/17 06:00 01/04/17 08:00 01/04/17 08:00 01/04/17 08:00 01/03/17 20:53 Active Medications Aspirin (Asa -) 81 mg PO DAILY [facility] Last Admin: 01/03/17 11:20 Dose: 81 mg Clopidogrel Bisulfate (Plavix -) 75 mg PO DAILY [facility] Last Admin: 01/03/17 11:19 Dose: 75 mg Collagenase (Santyl -) 1 applic TP DAILY [facility] Last Admin: 01/03/17 11:20 Dose: 1 applic Lisinopril (Prinivil) 2.5 mg PO DAILY [facility] Last Admin: 01/03/17 11:19 Dose: 2.5 mg Memantine (Namenda -) 10 mg PO BID [facility] Last Admin: 01/03/17 21:27 Dose: 10 mg Metformin HCl (Glucophage Xr -) 500 mg PO BIDI [facility] Last Admin: 01/04/17 06:43 Dose: Not Given Metoprolol Succinate (Toprol Xl -) 25 mg PO DAILY [facility] Last Admin: 01/03/17 11:19 Dose: 25 mg Morphine Sulfate (Morphine Injection -) 2 mg IVPUSH Q4H PRN PRN Reason: PAIN LEVEL 1-5 Last Admin: 01/04/17 04:03 Dose: 2 mg Morphine Sulfate (Morphine Injection -) 4 mg IVPUSH Q4H PRN PRN Reason: PAIN LEVEL 6-10 Piperacillin Sod/Tazobactam Sod (Zosyn 3.375gm Ivpb (Pre-Docked)) 3.375 gm IVPB Q8H-IV LUCY PRN Reason: Protocol Last Admin: 01/04/17 02:50 Dose: 3.375 gm Quetiapine Fumarate (Seroquel -) 25 mg PO BID [facility] Last Admin: 01/03/17 21:27 Dose: 25 mg Spironolactone (Aldactone -) 25 mg PO DAILY [facility] Last Admin: 01/03/17 15:05 Dose: 25 mg Trazodone HCl (Desyrel -) 100 mg PO HS [facility] Last Admin: 01/03/17 21:27 Dose: 100 mg Vancomycin HCl (Vancomycin (Pre-Docked)) 1,000 mg IVPB Q12H [facility] PRN Reason: Protocol Last Admin: 01/04/17 03:06 Dose: 1,000 mg Constitutional: Yes: Awake and responsive, NAD Eyes: Yes: Conjunctiva Clear, pupils equal and reactive HENT: Yes: Atraumatic, Normocephalic Neck: Yes: Supple, Trachea Midline. No: Lymphadenopathy Cardiovascular: Yes: Pulse Irregular, S1, S2 Respiratory: Yes: On Nasal O2, Rales. No: Accessory Muscle Use, Cough Gastrointestinal: Yes: Normal Bowel Sounds, Soft ...Rectal Exam: Yes: Deferred Renal/: Yes: WNL Breast(s): Yes: WNL Musculoskeletal: Yes: WNL Extremities: Yes: bilateral foot and agosto ulcers, large L heel ulcer. All appear dry, without erythema, exudate. Peripheral Pulses WNL: Yes Integumentary: Yes: Other (ulcers bilaterally, bilateral great toe, L heel, bilateral agosto.) Wound/Incision: Yes: Clean/Dry Neurological: Yes: Poorly responsive No: Facial Droop, Seizure ...Motor Strength: WNL Labs: Laboratory Results - last 24 hr 01/04/17 01/04/17 01/04/17 05:10 05:10 05:10 WBC 12.8 H RBC 3.26 L Hgb 9.0 L Hct 27.9 L MCV 85.7 MCHC 32.3 RDW 14.4 Plt Count 426 MPV 8.3 PTT (Actin FS) 26.6 L D Sodium 138 Potassium 3.7 Chloride 98 Carbon Dioxide 29 Anion Gap 11 BUN 16 Creatinine 0.9 D Creat Clearance w eGFR > 60 Random Glucose 187 H Calcium 9.1 Total Bilirubin 0.6 D AST 21 ALT 23 Alkaline Phosphatase 76 Total Protein 6.4 Albumin 2.3 L Problem List - Problems (1) ACS (acute coronary syndrome) Code(s): I24.9 - ACUTE ISCHEMIC HEART DISEASE, UNSPECIFIED (2) CHF (congestive heart failure) Code(s): I50.9 - HEART FAILURE, UNSPECIFIED Qualifiers: Congestive heart failure type: systolic Congestive heart failure chronicity: acute Qualified Code(s): I50.21 - Acute systolic (congestive ) heart failure (3) Dementia Code(s): F03.90 - UNSPECIFIED DEMENTIA WITHOUT BEHAVIORAL DISTURBANCE Qualifiers: Dementia type: Alzheimer's disease Dementia behavioral disturbance: without behavioral disturbance (4) CAD (coronary artery disease) Code(s): I25.10 - ATHSCL HEART DISEASE OF [place] CORONARY ARTERY W/O ANG PCTRS (5) Open wound of left foot Code(s): S91.302A - UNSPECIFIED OPEN WOUND, LEFT FOOT, INITIAL ENCOUNTER Qualifiers: Encounter type: sequela Qualified Code(s): S91.302S - Unspecified open wound, left foot, sequela Assessment/Plan Acute Encephalopathy PAD CHF CAD DM Chronic foot ulcer UTI CHF exacerbation NSTEMI (?) PNA -> bilateral patchy infiltrates History of advancing dementia Aspiration precautions O2 as needed AC Beta tamika ABX per ID Telemetry monitoring Dr Qureshi Critical care time spent in reviewing chart, evaluating patient and formulating plan 35 min
--- NOTE | 2017-01-04 10:22 | PN ---
Progress Note (short form) - Note Progress Note: awake and alert confused Vital Signs Period Temp Pulse Resp BP Sys/Mcdaniel Pulse Ox Last 24 Hr 97.4 F-99.4 F 86-102 14-23 103-135/57-70 95-99 cor-rrr lungs clear abd soft,nt ext +dry gangrene-heel and toes CBC, BMP 01/04/17 05:10 01/04/17 05:10 Microbiology 01/01/17 09:50 Urine - Urine Clean Catch Urine Culture - Final Enterococcus Faecalis 01/01/17 10:07 Blood - Peripheral Venous Blood Culture - Preliminary NO GROWTH OBTAINED AFTER 48 HOURS, INCUBATION TO CONTINUE FOR 3 DAYS. 01/01/17 10:07 Blood - Peripheral Venous Blood Culture - Preliminary NO GROWTH OBTAINED AFTER 48 HOURS, INCUBATION TO CONTINUE FOR 3 DAYS. 01/02/17 19:00 Urine For Antigen Detection Legionella Antigen - Final 01/02/17 19:00 Urine For Antigen Detection Streptococcus pneumoniae Antigen (M - Final cxray clear a/p leukocytosis is improved, ?pneumonia enterococcal UTI PAD, dry gangrene of the feet switch to unasyn CAD-+troponins, f/u per cardiology should address advanced directives with family
[2017-01-04] MEDS ORDERED: PT OWN MED DRAWER 7, Y5N ONE ×2 (11:17→20:25)
[2017-01-04] MEDS: MEMANTINE HCL 10 MG TABLET (FP) PO SCH ×2 (11:21→22:00)
[2017-01-04] MEDS: SPIRONOLACTONE 25 MG TABLET (FP) PO SCH (11:21)
[2017-01-04] MEDS: CLOPIDOGREL BISULFATE 75 MG TABLET (FP) PO SCH (11:21)
[2017-01-04] MEDS: ASPIRIN 81 MG CHEWABLE TABLETS PO SCH (11:21)
[2017-01-04] MEDS: METOPROLOL SUCCINATE 25 MG TAB.SR.24H (FP) PO SCH (11:22)
[2017-01-04] MEDS: LISINOPRIL 5 MG TABLET (FP) PO SCH (11:22)
[2017-01-04] MEDS: AMPICILLIN NA/SULBACTAM NA 100 ML IVPB SCH ×3 (11:22→21:00)
[2017-01-04] MEDS: QUEtiapine FUMARATE 25 MG TABLET (FP) PO SCH ×2 (11:22→22:00)
[2017-01-04] MEDS: COLLAGENASE CLOSTRIDIUM HIST. 30 GRAMS TUBE TP SCH (11:23)
--- NOTE | 2017-01-04 12:36 | PN ---
Progress Note, Physician Chief Complaint: Pt is more alert; disoriented x 3. Denies pain or shortness of breath. History of Present Illness: The patient is a 76 year old male (louisa Cabrera), [place] with a significant past medical history of Alzheimer's, HLD, NIDDM, HTN, who presents to the emergency department with lethargy and worsening mental status since yesterday. The patient is here with his daughter who reports the patient waking up feeling more lethargic today. The daughter notes that yesterday he was more "sluggish" when walking up the 3 flights of steps to his apartment and seemed SOB while walking up stairs. Daughter denies recent fevers, chills, cough or any recent expressions of pain or discomfort by the pt. Daughter denies any recent nausea, vomit, diarrhea or constipation. Daughter denies any recent cough. This HPI is limited due to the patients worsening dementia and obtained primarily from daugther.. Allergies: NKA Past surgical history: None reported. Social History: Nonsmoker. Denies EtOH use and recreational drug use. Primary Care Physician:Dr.James Sears - Current Medication List Current Medications: Active Medications Aspirin (Asa -) 81 mg PO DAILY [facility] Last Admin: 01/04/17 11:21 Dose: 81 mg Clopidogrel Bisulfate (Plavix -) 75 mg PO DAILY [facility] Last Admin: 01/04/17 11:21 Dose: 75 mg Collagenase (Santyl -) 1 applic TP DAILY [facility] Last Admin: 01/04/17 11:23 Dose: 1 applic Ampicillin Sodium/Sulbactam Sodium (Unasyn 1.5 Gm (Pre-Docked)) 100 mls @ 200 mls/hr IVPB Q6H-IV [facility] Last Admin: 01/04/17 11:22 Dose: 200 mls/hr Lisinopril (Prinivil) 2.5 mg PO DAILY [facility] Last Admin: 01/04/17 11:22 Dose: 2.5 mg Memantine (Namenda -) 10 mg PO BID [facility] Last Admin: 01/04/17 11:21 Dose: 10 mg Metformin HCl (Glucophage Xr -) 500 mg PO BIDI [facility] Last Admin: 01/04/17 06:43 Dose: Not Given Metoprolol Succinate (Toprol Xl -) 25 mg PO DAILY [facility] Last Admin: 01/04/17 11:22 Dose: 25 mg Morphine Sulfate (Morphine Injection -) 2 mg IVPUSH Q4H PRN PRN Reason: PAIN LEVEL 1-5 Last Admin: 01/04/17 04:03 Dose: 2 mg Morphine Sulfate (Morphine Injection -) 4 mg IVPUSH Q4H PRN PRN Reason: PAIN LEVEL 6-10 Quetiapine Fumarate (Seroquel -) 25 mg PO BID [facility] Last Admin: 01/04/17 11:22 Dose: 25 mg Spironolactone (Aldactone -) 25 mg PO DAILY [facility] Last Admin: 01/04/17 11:21 Dose: 25 mg Trazodone HCl (Desyrel -) 100 mg PO HS [facility] Last Admin: 01/03/17 21:27 Dose: 100 mg - Objective Vital Signs: Vital Signs Temperature 98.4 F 01/04/17 10:00 Pulse Rate 76 01/04/17 10:00 Respiratory Rate 18 01/04/17 10:00 Blood Pressure 103/54 01/04/17 10:00 O2 Sat by Pulse Oximetry (%) 95 01/03/17 20:53 Constitutional: Yes: No Distress Eyes: Yes: WNL HENT: Yes: WNL Neck: Yes: WNL Cardiovascular: Yes: S1, S2 Respiratory: Yes: Diminished Gastrointestinal: Yes: Soft ...Rectal Exam: Yes: Deferred Genitourinary: No: Anuria Breast(s): Yes: WNL Musculoskeletal: Yes: Muscle Weakness Extremities: Yes: Cool Edema: No Peripheral Pulses WNL: No Peripheral Pulses: Left Doralis Pedis: 1+, Right Dorsalis Pedis: 1+ Integumentary: Yes: Other (black) Wound/Incision: Yes: Open to air (bilateral backened, gangrenouws toes) Labs: CBC, BMP 01/04/17 05:10 01/04/17 05:10 INR, PTT INR 1.35 (0.82-1.09) H 01/01/17 10:18 Problem List - Problems (1) ACS (acute coronary syndrome) Assessment/Plan: rising TNI, ekevated CK/CKMB relative index, EKG of sinus tachycardia with T wave changes. CTA: no PE. Continue metoprolol, lisinopril, ASA, clopidogrel. Added spironolactone (severely reduced LVEF; CAD). Code(s): I24.9 - ACUTE ISCHEMIC HEART DISEASE, UNSPECIFIED (2) Dementia Assessment/Plan: progressively severe dementia. Discussed pt with daughter. Code(s): F03.90 - UNSPECIFIED DEMENTIA WITHOUT BEHAVIORAL DISTURBANCE Qualifiers: Dementia type: Alzheimer's disease Dementia behavioral disturbance: without behavioral disturbance (3) Infection of left foot Code(s): L08.9 - LOCAL INFECTION OF THE SKIN AND SUBCUTANEOUS TISSUE, UNSP (4) Tachycardia Code(s): R00.0 - TACHYCARDIA, UNSPECIFIED (5) Diabetes Code(s): E11.9 - TYPE 2 DIABETES MELLITUS WITHOUT COMPLICATIONS (6) Acute on chronic systolic (congestive) heart failure Assessment/Plan: Continue beta blockers, ACEI. Added spironolactone. Furosemide; f/u BUN/cr, electrolytes, Is and Os, daily weight. (Avoid excessive dehydration: severe aortic stenosis). Pt with severely reduced LVEF, ACS, severe aortic stenosis. Family has refused coronary angiogram and workup regarding valvular heart disease on previous admission; according to daughters, pt has shown steep decline in mental capacity within the past year, and they had wanted him to be kept comfortable. I splke with one of his daughters 01/03/2017 (Pham). She was "confused" about how to proceed with her father, and wants to have a meeting with the various health-care workers involved in his care. Code(s): I50.23 - ACUTE ON CHRONIC SYSTOLIC (CONGESTIVE) HEART FAILURE
--- NOTE | 2017-01-04 15:10 | CONSULT ---
Consult - text type - Consultation Consultation Note: NEUROLOGY CONSULTATION is greatly appreciated: this 76 yo man lives with family. PMH sig for HTN, DM, Chol, PVD with chronic ulcers and Alzheimer's Disease. Maintained on Donepezil (10mg), Mementine (10 BID), Clopidogrel, metoprolol, metformin, amlodipine, Quetiapine (25 BID and 50HS) and trazadone Now admitted after few days of increasing confusion and lethargy. Found to have WBC=17.4 K, Urine WBC=56 and pAO2=46.1. CT of head (reviewed): Moderate, diffuse atrophy with diffuse periventricular microvascular changes. No acute processes. [place]: No bruits, No head trauma, Necrotic toes and heal ulcers. NEURO: Awake, alert, Ox "in the payne." Sparse fluent speech in Armenian + Glabella, snout, suck, grasps CN II-XII: Normal. Gag OK. Taking PO without difficulty Moves all fours well. Sl Rigid tone and early contractures of the knees. Absent AJ's No obvious dystaxia Withdraws all fours symmetrically IMP: Moderately severe, B/L, cerebral dysfunction (OMS, Chronic) c/w Alzheimer' s Disease (AD). Worsening due to Toxic-Metabolic Encephalopathy (UTI/sepsis). Diabetic Peripheral Neuropathy. SUGGEST: Continue antibiotics and hydration. Check B12, B1, TSH, RPR. Resume Donepezil 10 mg qAM Continue Mementine 10 mg BID Hold quetiapine if lethargic/sedated D/C Narcotics. Thank you very much, Aly Pandya MD
[2017-01-04 15:38] LABS: TROPONIN I 1.41 ng/ml (0.00-0.05)
[2017-01-04] MEDS: traZODone HCL 100 MG TABLET (FP) PO SCH (22:00)
[2017-01-05] MEDS ORDERED: HALOPERIDOL LACTATE 5 MG/ML ONE (01:14)
--- NOTE | 2017-01-05 01:16 | PN ---
Progress Note, Physician History of Present Illness: Pt more awake - Current Medication List Current Medications: Active Medications Aspirin (Asa -) 81 mg PO DAILY [facility] Last Admin: 01/04/17 11:21 Dose: 81 mg Clopidogrel Bisulfate (Plavix -) 75 mg PO DAILY [facility] Last Admin: 01/04/17 11:21 Dose: 75 mg Collagenase (Santyl -) 1 applic TP DAILY [facility] Last Admin: 01/04/17 11:23 Dose: 1 applic Haloperidol (Haldol Injection (Fast Acting) -) 5 mg IM Q4H PRN PRN Reason: AGITATION Ampicillin Sodium/Sulbactam Sodium (Unasyn 1.5 Gm (Pre-Docked)) 100 mls @ 200 mls/hr IVPB Q6H-IV [facility] Last Admin: 01/04/17 21:00 Dose: 200 mls/hr Lisinopril (Prinivil) 2.5 mg PO DAILY [facility] Last Admin: 01/04/17 11:22 Dose: 2.5 mg Memantine (Namenda -) 10 mg PO BID [facility] Last Admin: 01/04/17 22:00 Dose: 10 mg Metformin HCl (Glucophage Xr -) 500 mg PO BIDI [facility] Last Admin: 01/04/17 16:27 Dose: 500 mg Metoprolol Succinate (Toprol Xl -) 25 mg PO DAILY [facility] Last Admin: 01/04/17 11:22 Dose: 25 mg Morphine Sulfate (Morphine Injection -) 2 mg IVPUSH Q4H PRN PRN Reason: PAIN LEVEL 1-5 Last Admin: 01/04/17 16:27 Dose: 2 mg Morphine Sulfate (Morphine Injection -) 4 mg IVPUSH Q4H PRN PRN Reason: PAIN LEVEL 6-10 Last Admin: 01/05/17 00:39 Dose: 4 mg Quetiapine Fumarate (Seroquel -) 25 mg PO BID [facility] Last Admin: 01/04/17 22:00 Dose: 25 mg Spironolactone (Aldactone -) 25 mg PO DAILY [facility] Last Admin: 01/04/17 11:21 Dose: 25 mg Trazodone HCl (Desyrel -) 100 mg PO HS [facility] Last Admin: 01/04/17 22:00 Dose: 100 mg - Objective Vital Signs: Vital Signs Temperature 98.6 F 01/04/17 22:00 Pulse Rate 103 H 01/05/17 00:00 Respiratory Rate 22 01/05/17 00:00 Blood Pressure 116/69 01/05/17 00:00 O2 Sat by Pulse Oximetry (%) 94 L 01/04/17 21:00 Constitutional: Yes: No Distress Eyes: Yes: WNL HENT: Yes: WNL Neck: Yes: WNL, Supple Cardiovascular: Yes: WNL, Regular Rate and Rhythm Respiratory: Yes: Diminished Gastrointestinal: Yes: WNL, Normal Bowel Sounds, Soft Musculoskeletal: Yes: Other ((+) lt heel ulcer Rt 1st/3rd toe dry gangerene) Labs: CBC, BMP 01/04/17 05:10 01/04/17 05:10 INR, PTT INR 1.35 (0.82-1.09) H 01/01/17 10:18 Problem List - Problems (1) ACS (acute coronary syndrome) Assessment/Plan: (+) Troponin Cont to trend Cont asa/plavix Code(s): I24.9 - ACUTE ISCHEMIC HEART DISEASE, UNSPECIFIED (2) Acute on chronic systolic (congestive) heart failure Assessment/Plan: Cont spirinolactone Monitor electrolytes Code(s): I50.23 - ACUTE ON CHRONIC SYSTOLIC (CONGESTIVE) HEART FAILURE (3) Infection of left foot Assessment/Plan: Cont IV unasyn Code(s): L08.9 - LOCAL INFECTION OF THE SKIN AND SUBCUTANEOUS TISSUE, UNSP (4) HTN (hypertension) Assessment/Plan: Cont metoprolol/lisinopril Code(s): I10 - ESSENTIAL (PRIMARY) HYPERTENSION (5) Diabetes Assessment/Plan: Cont metformin Code(s): E11.9 - TYPE 2 DIABETES MELLITUS WITHOUT COMPLICATIONS (6) CAD (coronary artery disease) Code(s): I25.10 - ATHSCL HEART DISEASE OF [place] CORONARY ARTERY W/O ANG PCTRS (7) Dementia Assessment/Plan: Seroquel/namenda Code(s): F03.90 - UNSPECIFIED DEMENTIA WITHOUT BEHAVIORAL DISTURBANCE Qualifiers: Dementia type: Alzheimer's disease Dementia behavioral disturbance: without behavioral disturbance
[2017-01-05] MEDS: HALOPERIDOL LACTATE 5 MG/ML IM PRN ×2 (01:23→21:53)
[2017-01-05] MEDS: AMPICILLIN NA/SULBACTAM NA 100 ML IVPB SCH ×4 (02:36→20:38)
[2017-01-05] MEDS ORDERED: PT OWN MED DRAWER 7, Y5N ONE (09:15)
[2017-01-05] MEDS: METOPROLOL SUCCINATE 25 MG TAB.SR.24H (FP) PO SCH (09:18)
[2017-01-05] MEDS: CLOPIDOGREL BISULFATE 75 MG TABLET (FP) PO SCH (09:18)
[2017-01-05] MEDS: QUEtiapine FUMARATE 25 MG TABLET (FP) PO SCH ×2 (09:18→21:54)
[2017-01-05] MEDS: MEMANTINE HCL 10 MG TABLET (FP) PO SCH ×2 (09:18→21:54)
[2017-01-05] MEDS: LISINOPRIL 5 MG TABLET (FP) PO SCH (09:18)
[2017-01-05] MEDS: ASPIRIN 81 MG CHEWABLE TABLETS PO SCH (09:19)
[2017-01-05] MEDS: SPIRONOLACTONE 25 MG TABLET (FP) PO SCH (09:19)
--- NOTE | 2017-01-05 10:53 | PN ---
Progress Note (short form) - Note Progress Note: Patient seen and examined in the ICU. Awake and alert and responsive. NAD on NC O2. Intake & Output 01/02/17 01/03/17 01/04/17 01/05/17 23:59 23:59 23:59 23:59 Intake Total 870 1250 1730 300 Output Total 500 250 Balance 370 1000 1730 300 Weight 146 lb 8 oz 146 lb 8 oz 148 lb 9.6 oz 151 lb 7.321 oz Last Vital Signs Temp Pulse Resp BP Pulse Ox 98.9 F 104 H 19 130/76 94 L 01/05/17 10:00 01/05/17 10:00 01/05/17 10:00 01/05/17 10:00 01/04/17 21:00 Active Medications Aspirin (Asa -) 81 mg PO DAILY [facility] Last Admin: 01/05/17 09:19 Dose: 81 mg Clopidogrel Bisulfate (Plavix -) 75 mg PO DAILY [facility] Last Admin: 01/05/17 09:18 Dose: 75 mg Collagenase (Santyl -) 1 applic TP DAILY [facility] Last Admin: 01/04/17 11:23 Dose: 1 applic Haloperidol (Haldol Injection (Fast Acting) -) 5 mg IM Q4H PRN PRN Reason: AGITATION Last Admin: 01/05/17 01:23 Dose: 5 mg Ampicillin Sodium/Sulbactam Sodium (Unasyn 1.5 Gm (Pre-Docked)) 100 mls @ 200 mls/hr IVPB Q6H-IV [facility] Last Admin: 01/05/17 09:18 Dose: 200 mls/hr Lisinopril (Prinivil) 2.5 mg PO DAILY [facility] Last Admin: 01/05/17 09:18 Dose: 2.5 mg Memantine (Namenda -) 10 mg PO BID [facility] Last Admin: 01/05/17 09:18 Dose: 10 mg Metformin HCl (Glucophage Xr -) 500 mg PO BIDI [facility] Last Admin: 01/05/17 06:39 Dose: 500 mg Metoprolol Succinate (Toprol Xl -) 25 mg PO DAILY [facility] Last Admin: 01/05/17 09:18 Dose: 25 mg Morphine Sulfate (Morphine Injection -) 2 mg IVPUSH Q4H PRN PRN Reason: PAIN LEVEL 1-5 Last Admin: 01/04/17 16:27 Dose: 2 mg Morphine Sulfate (Morphine Injection -) 4 mg IVPUSH Q4H PRN PRN Reason: PAIN LEVEL 6-10 Last Admin: 01/05/17 00:39 Dose: 4 mg Quetiapine Fumarate (Seroquel -) 25 mg PO BID [facility] Last Admin: 01/05/17 09:18 Dose: 25 mg Spironolactone (Aldactone -) 25 mg PO DAILY [facility] Last Admin: 01/05/17 09:19 Dose: 25 mg Trazodone HCl (Desyrel -) 100 mg PO HS [facility] Last Admin: 01/04/17 22:00 Dose: 100 mg Constitutional: Yes: Awake and responsive, NAD Eyes: Yes: Conjunctiva Clear, pupils equal and reactive HENT: Yes: Atraumatic, Normocephalic Neck: Yes: Supple, Trachea Midline. No: Lymphadenopathy Cardiovascular: Yes: Pulse Irregular, S1, S2 Respiratory: Yes: On Nasal O2, Rales. No: Accessory Muscle Use, Cough Gastrointestinal: Yes: Normal Bowel Sounds, Soft ...Rectal Exam: Yes: Deferred Renal/: Yes: WNL Breast(s): Yes: WNL Musculoskeletal: Yes: WNL Extremities: Yes: bilateral foot and agosto ulcers, large L heel ulcer. All appear dry, without erythema, exudate. Peripheral Pulses WNL: Yes Integumentary: Yes: Other (ulcers bilaterally, bilateral great toe, L heel, bilateral agosto.) Wound/Incision: Yes: Clean/Dry Neurological: Yes: Poorly responsive No: Facial Droop, Seizure ...Motor Strength: WNL Labs: Laboratory Results - last 24 hr 01/04/17 01/04/17 01/05/17 10:00 10:00 05:00 PTT (Actin FS) 25.8 L POC Glucometer Creatine Kinase 152 CK-MB (CK-2) 1.087 CK-MB (CK-2) Rel Index 1.3 Troponin I 1.41 H* 01/05/17 06:30 PTT (Actin FS) POC Glucometer [phone] Creatine Kinase CK-MB (CK-2) CK-MB (CK-2) Rel Index Troponin I Problem List - Problems (1) ACS (acute coronary syndrome) Code(s): I24.9 - ACUTE ISCHEMIC HEART DISEASE, UNSPECIFIED (2) CHF (congestive heart failure) Code(s): I50.9 - HEART FAILURE, UNSPECIFIED Qualifiers: Congestive heart failure type: systolic Congestive heart failure chronicity: acute Qualified Code(s): I50.21 - Acute systolic (congestive ) heart failure (3) Dementia Code(s): F03.90 - UNSPECIFIED DEMENTIA WITHOUT BEHAVIORAL DISTURBANCE Qualifiers: Dementia type: Alzheimer's disease Dementia behavioral disturbance: without behavioral disturbance (4) CAD (coronary artery disease) Code(s): I25.10 - ATHSCL HEART DISEASE OF [place] CORONARY ARTERY W/O ANG PCTRS (5) Open wound of left foot Code(s): S91.302A - UNSPECIFIED OPEN WOUND, LEFT FOOT, INITIAL ENCOUNTER Qualifiers: Encounter type: sequela Qualified Code(s): S91.302S - Unspecified open wound, left foot, sequela Assessment/Plan Acute Encephalopathy PAD CHF CAD DM Chronic foot ulcer UTI CHF exacerbation NSTEMI (?) PNA -> bilateral patchy infiltrates History of advancing dementia Aspiration precautions O2 as needed AC Beta tamika ABX per ID Telemetry monitoring Dr Qureshi
--- NOTE | 2017-01-05 11:42 | PN ---
Progress Note (short form) - Note Progress Note: seen in ICU alert confused mitts on Vital Signs Period Temp Pulse Resp BP Sys/Mcdaniel Pulse Ox Last 24 Hr 97.8 F-98.9 F 76-108 17-24 100-134/51-83 94-94 cor-rrr llungs clear abd soft,nt ext +dry gangrene-heel and toes CBC, BMP 01/04/17 05:10 01/04/17 05:10 Microbiology 01/01/17 10:07 Blood - Peripheral Venous Blood Culture - Preliminary NO GROWTH OBTAINED AFTER 96 HOURS, INCUBATION TO CONTINUE FOR 1 DAYS. 01/01/17 10:07 Blood - Peripheral Venous Blood Culture - Preliminary NO GROWTH OBTAINED AFTER 96 HOURS, INCUBATION TO CONTINUE FOR 1 DAYS. 01/01/17 09:50 Urine - Urine Clean Catch Urine Culture - Final Enterococcus Faecalis 01/02/17 19:00 Urine For Antigen Detection Legionella Antigen - Final 01/02/17 19:00 Urine For Antigen Detection Streptococcus pneumoniae Antigen (M - Final cxray clear a/p leukocytosis is improved, ?pneumonia enterococcal UTI PAD, dry gangrene of the feet antibiotic day #4, unasyn day #2 CAD-+troponins, f/u per cardiology
[2017-01-05] MEDS: COLLAGENASE CLOSTRIDIUM HIST. 30 GRAMS TUBE TP SCH (12:07)
--- NOTE | 2017-01-05 13:26 | PN ---
Progress Note, Physician Chief Complaint: Pt has periods of agitation History of Present Illness: The patient is a 76 year old male (louisa Alvin Rick), [place] with a significant past medical history of Alzheimer's, HLD, NIDDM, HTN, who presents to the emergency department with lethargy and worsening mental status since yesterday. The patient is here with his daughter who reports the patient waking up feeling more lethargic today. The daughter notes that yesterday he was more "sluggish" when walking up the 3 flights of steps to his apartment and seemed SOB while walking up stairs. Daughter denies recent fevers, chills, cough or any recent expressions of pain or discomfort by the pt. Daughter denies any recent nausea, vomit, diarrhea or constipation. Daughter denies any recent cough. This HPI is limited due to the patients worsening dementia and obtained primarily from daugther.. Allergies: NKA Past surgical history: None reported. Social History: Nonsmoker. Denies EtOH use and recreational drug use. Primary Care Physician:Dr.James Sears - Current Medication List Current Medications: Active Medications Aspirin (Asa -) 81 mg PO DAILY [facility] Last Admin: 01/05/17 09:19 Dose: 81 mg Clopidogrel Bisulfate (Plavix -) 75 mg PO DAILY [facility] Last Admin: 01/05/17 09:18 Dose: 75 mg Collagenase (Santyl -) 1 applic TP DAILY [facility] Last Admin: 01/05/17 12:07 Dose: 1 applic Haloperidol (Haldol Injection (Fast Acting) -) 5 mg IM Q4H PRN PRN Reason: AGITATION Last Admin: 01/05/17 01:23 Dose: 5 mg Ampicillin Sodium/Sulbactam Sodium (Unasyn 1.5 Gm (Pre-Docked)) 100 mls @ 200 mls/hr IVPB Q6H-IV [facility] Last Admin: 01/05/17 09:18 Dose: 200 mls/hr Lisinopril (Prinivil) 2.5 mg PO DAILY [facility] Last Admin: 01/05/17 09:18 Dose: 2.5 mg Memantine (Namenda -) 10 mg PO BID [facility] Last Admin: 01/05/17 09:18 Dose: 10 mg Metformin HCl (Glucophage Xr -) 500 mg PO BIDI [facility] Last Admin: 01/05/17 06:39 Dose: 500 mg Metoprolol Succinate (Toprol Xl -) 25 mg PO DAILY [facility] Last Admin: 01/05/17 09:18 Dose: 25 mg Morphine Sulfate (Morphine Injection -) 2 mg IVPUSH Q4H PRN PRN Reason: PAIN LEVEL 1-5 Last Admin: 01/04/17 16:27 Dose: 2 mg Morphine Sulfate (Morphine Injection -) 4 mg IVPUSH Q4H PRN PRN Reason: PAIN LEVEL 6-10 Last Admin: 01/05/17 00:39 Dose: 4 mg Quetiapine Fumarate (Seroquel -) 25 mg PO BID [facility] Last Admin: 01/05/17 09:18 Dose: 25 mg Spironolactone (Aldactone -) 25 mg PO DAILY [facility] Last Admin: 01/05/17 09:19 Dose: 25 mg Trazodone HCl (Desyrel -) 100 mg PO HS [facility] Last Admin: 01/04/17 22:00 Dose: 100 mg - Objective Vital Signs: Vital Signs Temperature 98.9 F 01/05/17 10:00 Pulse Rate 98 H 01/05/17 11:48 Respiratory Rate 25 H 01/05/17 11:48 Blood Pressure 124/72 01/05/17 11:48 O2 Sat by Pulse Oximetry (%) 94 L 01/05/17 09:00 Constitutional: Yes: Anxious Eyes: Yes: WNL HENT: Yes: WNL Neck: Yes: WNL Cardiovascular: Yes: Murmur, S1, S2, S4 Respiratory: Yes: Diminished Gastrointestinal: Yes: Soft ...Rectal Exam: Yes: Deferred Genitourinary: No: Anuria Musculoskeletal: Yes: Muscle Weakness Extremities: Yes: Cool Edema: No Peripheral Pulses WNL: No Peripheral Pulses: Left Doralis Pedis: 1+, Right Dorsalis Pedis: 1+ Integumentary: Yes: WNL Neurological: Yes: Confusion, Weakness Psychiatric: Yes: Other (dementia) Labs: CBC, BMP 01/04/17 05:10 01/04/17 05:10 INR, PTT INR 1.35 (0.82-1.09) H 01/01/17 10:18 - ....Imaging Other: Image Reviewed Problem List - Problems (1) ACS (acute coronary syndrome) Assessment/Plan: peak TNI 1.79, ekevated CK/CKMB relative index, EKG of sinus tachycardia with T wave changes. CTA: no PE. Continue metoprolol, lisinopril, ASA, clopidogrel. Added spironolactone (severely reduced LVEF; CAD). Code(s): I24.9 - ACUTE ISCHEMIC HEART DISEASE, UNSPECIFIED (2) Dementia Assessment/Plan: progressively severe dementia. Code(s): F03.90 - UNSPECIFIED DEMENTIA WITHOUT BEHAVIORAL DISTURBANCE Qualifiers: Dementia type: Alzheimer's disease Dementia behavioral disturbance: without behavioral disturbance (3) Infection of left foot Code(s): L08.9 - LOCAL INFECTION OF THE SKIN AND SUBCUTANEOUS TISSUE, UNSP (4) Tachycardia Code(s): R00.0 - TACHYCARDIA, UNSPECIFIED (5) Diabetes Code(s): E11.9 - TYPE 2 DIABETES MELLITUS WITHOUT COMPLICATIONS (6) Acute on chronic systolic (congestive) heart failure Assessment/Plan: Continue beta blockers, ACEI. Added spironolactone. Furosemide; f/u BUN/cr, electrolytes, Is and Os, daily weight. (Avoid excessive dehydration: severe aortic stenosis). Pt with severely reduced LVEF, ACS, severe aortic stenosis. Family has refused coronary angiogram and workup regarding valvular heart disease on previous admission; according to daughters, pt has shown steep decline in mental capacity within the past year, and they had wanted him to be kept comfortable. I spoke with one of his daughters 01/03/2017 (Pham) last week. She was "confused" about how to proceed with her father, and wants to have a meeting with the various health-care workers involved in his care. Code(s): I50.23 - ACUTE ON CHRONIC SYSTOLIC (CONGESTIVE) HEART FAILURE Assessment/Plan cc time spent reviewing chart, examining pt, and writing note: 40 minutes.
--- NOTE | 2017-01-05 20:50 | PN ---
Progress Note, Physician History of Present Illness: Pt more awake - Current Medication List Current Medications: Active Medications Aspirin (Asa -) 81 mg PO DAILY [facility] Last Admin: 01/05/17 09:19 Dose: 81 mg Clopidogrel Bisulfate (Plavix -) 75 mg PO DAILY [facility] Last Admin: 01/05/17 09:18 Dose: 75 mg Collagenase (Santyl -) 1 applic TP DAILY [facility] Last Admin: 01/05/17 12:07 Dose: 1 applic Haloperidol (Haldol Injection (Fast Acting) -) 5 mg IM Q4H PRN PRN Reason: AGITATION Last Admin: 01/05/17 01:23 Dose: 5 mg Ampicillin Sodium/Sulbactam Sodium (Unasyn 1.5 Gm (Pre-Docked)) 100 mls @ 200 mls/hr IVPB Q6H-IV [facility] Last Admin: 01/05/17 20:38 Dose: 200 mls/hr Lisinopril (Prinivil) 2.5 mg PO DAILY [facility] Last Admin: 01/05/17 09:18 Dose: 2.5 mg Memantine (Namenda -) 10 mg PO BID [facility] Last Admin: 01/05/17 09:18 Dose: 10 mg Metformin HCl (Glucophage Xr -) 500 mg PO BIDI [facility] Last Admin: 01/05/17 17:42 Dose: 500 mg Metoprolol Succinate (Toprol Xl -) 25 mg PO DAILY [facility] Last Admin: 01/05/17 09:18 Dose: 25 mg Morphine Sulfate (Morphine Injection -) 2 mg IVPUSH Q4H PRN PRN Reason: PAIN LEVEL 1-5 Last Admin: 01/04/17 16:27 Dose: 2 mg Morphine Sulfate (Morphine Injection -) 4 mg IVPUSH Q4H PRN PRN Reason: PAIN LEVEL 6-10 Last Admin: 01/05/17 00:39 Dose: 4 mg Quetiapine Fumarate (Seroquel -) 25 mg PO BID [facility] Last Admin: 01/05/17 09:18 Dose: 25 mg Spironolactone (Aldactone -) 25 mg PO DAILY [facility] Last Admin: 01/05/17 09:19 Dose: 25 mg Trazodone HCl (Desyrel -) 100 mg PO HS [facility] Last Admin: 01/04/17 22:00 Dose: 100 mg - Objective Vital Signs: Vital Signs Temperature 98.7 F 01/05/17 18:00 Pulse Rate 103 H 01/05/17 20:00 Respiratory Rate 23 01/05/17 20:00 Blood Pressure 143/85 01/05/17 20:00 O2 Sat by Pulse Oximetry (%) 95 01/05/17 18:57 Constitutional: Yes: No Distress Eyes: Yes: WNL HENT: Yes: WNL Neck: Yes: Supple Cardiovascular: Yes: WNL, Regular Rate and Rhythm Respiratory: Yes: Diminished Gastrointestinal: Yes: WNL, Normal Bowel Sounds, Soft Musculoskeletal: Yes: Other ((+) lt heel ulcer Rt 1st/3rd toes w/ dry gangrene) Labs: CBC, BMP 01/04/17 05:10 01/04/17 05:10 INR, PTT INR 1.35 (0.82-1.09) H 01/01/17 10:18 Problem List - Problems (1) ACS (acute coronary syndrome) Code(s): I24.9 - ACUTE ISCHEMIC HEART DISEASE, UNSPECIFIED (2) Infection of left foot Code(s): L08.9 - LOCAL INFECTION OF THE SKIN AND SUBCUTANEOUS TISSUE, UNSP (3) HTN (hypertension) Code(s): I10 - ESSENTIAL (PRIMARY) HYPERTENSION (4) Dementia Code(s): F03.90 - UNSPECIFIED DEMENTIA WITHOUT BEHAVIORAL DISTURBANCE Qualifiers: Dementia type: Alzheimer's disease Dementia behavioral disturbance: without behavioral disturbance (5) CAD (coronary artery disease) Code(s): I25.10 - ATHSCL HEART DISEASE OF [place] CORONARY ARTERY W/O ANG PCTRS Assessment/Plan 1. ACS/NSTEMI 2. Acute on chronic systolic CHF 3. Ganrene/PAD 4. HT/HLD?cad 5. Dementia Possible pneumonia Cont IV unasyn Cont diuresis
[2017-01-05] MEDS: traZODone HCL 100 MG TABLET (FP) PO SCH (21:53)
[2017-01-06] MEDS: AMPICILLIN NA/SULBACTAM NA 100 ML IVPB SCH ×4 (03:07→21:29)
[2017-01-06] MEDS ORDERED: PT OWN MED DRAWER 7, Y5N ONE ×3 (06:14→21:20)
[2017-01-06 06:38] LABS: BASOPHIL 0.3 % (0-2.0); EOSINOPHIL 2.7 % (0-4.5); MCH 27.6 pg (25.7-33.7); MCHC 32.6 g/dl (32.0-35.9); MEAN CELL VOLUME 84.9 fl (80-96); MEAN PLT VOLUME 8.4 fl (7.5-11.1); NEUTROPHILS 78.1 % (42.8-82.8); PLATELET COUNT 485 K/MM3 (134-434); RDW 14.1 % (11.9-15.9); WHITE BLOOD COUNT 11.3 K/mm3 (4.0-10.0)
[2017-01-06 07:09] LABS: ALBUMIN 2.2 g/dl (3.4-5.0); ANION GAP 5 (8-16); CO2 34 mmol/L (21-32); CREATININE 0.7 mg/dL (0.7-1.3); GLUCOSE,RANDOM 172 mg/dL (74-106); SGOT/AST 18 U/L (15-37); SGPT/ALT 19 U/L (12-78)
[2017-01-06 07:11] LABS: ALK PHOS 82 U/L (45-117); BILIRUBIN,TOTAL 0.4 mg/dL (0.2-1.0); TOT PROT 6.3 g/dl (6.4-8.2)
--- NOTE | 2017-01-06 07:50 | PN ---
Progress Note, Physician Chief Complaint: ID Unasyn Afebrile - Current Medication List Current Medications: Active Medications Aspirin (Asa -) 81 mg PO DAILY [facility] Last Admin: 01/05/17 09:19 Dose: 81 mg Clopidogrel Bisulfate (Plavix -) 75 mg PO DAILY [facility] Last Admin: 01/05/17 09:18 Dose: 75 mg Collagenase (Santyl -) 1 applic TP DAILY [facility] Last Admin: 01/05/17 12:07 Dose: 1 applic Haloperidol (Haldol Injection (Fast Acting) -) 5 mg IM Q4H PRN PRN Reason: AGITATION Last Admin: 01/05/17 21:53 Dose: 5 mg Ampicillin Sodium/Sulbactam Sodium (Unasyn 1.5 Gm (Pre-Docked)) 100 mls @ 200 mls/hr IVPB Q6H-IV [facility] Last Admin: 01/06/17 03:07 Dose: 200 mls/hr Lisinopril (Prinivil) 2.5 mg PO DAILY [facility] Last Admin: 01/05/17 09:18 Dose: 2.5 mg Memantine (Namenda -) 10 mg PO BID [facility] Last Admin: 01/05/17 21:54 Dose: 10 mg Metformin HCl (Glucophage Xr -) 500 mg PO BIDI [facility] Last Admin: 01/06/17 06:30 Dose: 500 mg Metoprolol Succinate (Toprol Xl -) 25 mg PO DAILY [facility] Last Admin: 01/05/17 09:18 Dose: 25 mg Morphine Sulfate (Morphine Injection -) 2 mg IVPUSH Q4H PRN PRN Reason: PAIN LEVEL 1-5 Last Admin: 01/04/17 16:27 Dose: 2 mg Morphine Sulfate (Morphine Injection -) 4 mg IVPUSH Q4H PRN PRN Reason: PAIN LEVEL 6-10 Last Admin: 01/05/17 00:39 Dose: 4 mg Quetiapine Fumarate (Seroquel -) 25 mg PO BID [facility] Last Admin: 01/05/17 21:54 Dose: 25 mg Spironolactone (Aldactone -) 25 mg PO DAILY [facility] Last Admin: 01/05/17 09:19 Dose: 25 mg Trazodone HCl (Desyrel -) 100 mg PO HS [facility] Last Admin: 01/05/17 21:53 Dose: 100 mg - Objective Vital Signs: Vital Signs Temperature 98.8 F 01/06/17 05:57 Pulse Rate 93 H 01/06/17 06:37 Respiratory Rate 20 01/06/17 05:57 Blood Pressure 111/66 01/06/17 06:37 O2 Sat by Pulse Oximetry (%) 96 01/06/17 00:30 Constitutional: Yes: No Distress Neck: Yes: WNL, Supple Cardiovascular: Yes: Murmur, S1, S2, Other (Grade 2-3 systolic murmur LSB) Respiratory: Yes: WNL, Regular, CTA Bilaterally Gastrointestinal: Yes: WNL, Normal Bowel Sounds, Soft. No: Tenderness, Tenderness, Rebound Extremities: Yes: Other (Dry gangrene toes both feet) Labs: CBC, BMP 01/06/17 05:20 01/06/17 05:20 INR, PTT INR 1.35 (0.82-1.09) H 01/01/17 10:18 Assessment/Plan Laboratory Tests 01/01/17 01/01/17 01/06/17 09:50 10:18 05:20 WBC 17.4 H D 11.3 H Hgb 8.6 L Hct 26.6 L Plt Count 485 H BUN Creatinine Creat Clearance w eGFR Urine RBC 7 01/06/17 05:20 WBC Hgb Hct Plt Count BUN 9 D Creatinine 0.7 D Creat Clearance w eGFR > 60 Urine RBC Assessment Enterococcal UTI Coronary syndrome Gangrene LE DM Plan Continue Uansyn with switch to oral Augmentin tomorrow [facility] REYES
[2017-01-06] MEDS: QUEtiapine FUMARATE 25 MG TABLET (FP) PO SCH ×2 (09:29→22:46)
[2017-01-06] MEDS: ASPIRIN 81 MG CHEWABLE TABLETS PO SCH (09:29)
[2017-01-06] MEDS: LISINOPRIL 5 MG TABLET (FP) PO SCH (09:29)
[2017-01-06] MEDS: METOPROLOL SUCCINATE 25 MG TAB.SR.24H (FP) PO SCH (09:29)
[2017-01-06] MEDS: SPIRONOLACTONE 25 MG TABLET (FP) PO SCH (09:29)
[2017-01-06] MEDS: MEMANTINE HCL 10 MG TABLET (FP) PO SCH ×2 (09:31→22:46)
[2017-01-06] MEDS: CLOPIDOGREL BISULFATE 75 MG TABLET (FP) PO SCH (09:31)
[2017-01-06] MEDS: COLLAGENASE CLOSTRIDIUM HIST. 30 GRAMS TUBE TP SCH (09:32)
--- NOTE | 2017-01-06 11:25 | PN ---
Progress Note, Physician History of Present Illness: The patient is a 76 year old male, JAVIDA with a significant past medical history of Alzheimer's, HLD, NIDDM, HTN, who presents to the emergency department with lethargy and worsening mental status since yesterday. The patient is here with his daughter who reports the patient waking up feeling more lethargic today. The daughter notes that yesterday he was more "sluggish" when walking up the 3 flights of steps to his apartment and seemed SOB while walking up stairs. Daughter denies recent fevers, chills, cough or any recent expressions of pain or discomfort by the pt. Daughter denies any recent nausea, vomit, diarrhea or constipation. Daughter denies any recent cough. This HPI is limited due to the patients worsening dementia and obtained primarily from [facility].. Allergies: NKA Past surgical history: None reported. Social History: Nonsmoker. Denies EtOH use and recreational drug use. Primary Care Physician:Dr.James Sears - Current Medication List Current Medications: Active Medications Aspirin (Asa -) 81 mg PO DAILY [facility] Last Admin: 01/06/17 09:29 Dose: 81 mg Clopidogrel Bisulfate (Plavix -) 75 mg PO DAILY [facility] Last Admin: 01/06/17 09:31 Dose: 75 mg Collagenase (Santyl -) 1 applic TP DAILY [facility] Last Admin: 01/06/17 09:32 Dose: 1 applic Haloperidol (Haldol Injection (Fast Acting) -) 5 mg IM Q4H PRN PRN Reason: AGITATION Last Admin: 01/05/17 21:53 Dose: 5 mg Ampicillin Sodium/Sulbactam Sodium (Unasyn 1.5 Gm (Pre-Docked)) 100 mls @ 200 mls/hr IVPB Q6H-IV [facility] Last Admin: 01/06/17 09:29 Dose: 200 mls/hr Lisinopril (Prinivil) 2.5 mg PO DAILY [facility] Last Admin: 01/06/17 09:29 Dose: 2.5 mg Memantine (Namenda -) 10 mg PO BID [facility] Last Admin: 01/06/17 09:31 Dose: 10 mg Metformin HCl (Glucophage Xr -) 500 mg PO BIDI [facility] Last Admin: 01/06/17 06:30 Dose: 500 mg Metoprolol Succinate (Toprol Xl -) 25 mg PO DAILY [facility] Last Admin: 01/06/17 09:29 Dose: 25 mg Morphine Sulfate (Morphine Injection -) 2 mg IVPUSH Q4H PRN PRN Reason: PAIN LEVEL 1-5 Last Admin: 01/04/17 16:27 Dose: 2 mg Morphine Sulfate (Morphine Injection -) 4 mg IVPUSH Q4H PRN PRN Reason: PAIN LEVEL 6-10 Last Admin: 01/05/17 00:39 Dose: 4 mg Quetiapine Fumarate (Seroquel -) 25 mg PO BID [facility] Last Admin: 01/06/17 09:29 Dose: 25 mg Spironolactone (Aldactone -) 25 mg PO DAILY [facility] Last Admin: 01/06/17 09:29 Dose: 25 mg Trazodone HCl (Desyrel -) 100 mg PO HS [facility] Last Admin: 01/05/17 21:53 Dose: 100 mg - Objective Vital Signs: Vital Signs Temperature 97.8 F 01/06/17 09:00 Pulse Rate 81 01/06/17 10:51 Respiratory Rate 16 01/06/17 10:51 Blood Pressure 97/58 01/06/17 10:51 O2 Sat by Pulse Oximetry (%) 100 01/06/17 10:18 Eyes: Yes: WNL, Conjunctiva Clear, EOM Intact HENT: Yes: WNL, Atraumatic, Normocephalic Neck: Yes: WNL, Supple, Trachea Midline Cardiovascular: Yes: WNL, Regular Rate and Rhythm Respiratory: Yes: WNL, Regular, CTA Bilaterally Gastrointestinal: Yes: WNL, Normal Bowel Sounds Genitourinary: Yes: WNL Musculoskeletal: Yes: WNL Extremities: Yes: Cyanosis, Other (gangrene) Integumentary: Yes: WNL ...Motor Strength: WNL Psychiatric: Yes: WNL Labs: CBC, BMP 01/06/17 05:20 01/06/17 05:20 INR, PTT INR 1.35 (0.82-1.09) H 01/01/17 10:18 Problem List - Problems (1) CAD (coronary artery disease) Code(s): I25.10 - ATHSCL HEART DISEASE OF [place] CORONARY ARTERY W/O ANG PCTRS (2) Dementia Code(s): F03.90 - UNSPECIFIED DEMENTIA WITHOUT BEHAVIORAL DISTURBANCE Qualifiers: Dementia type: Alzheimer's disease Dementia behavioral disturbance: without behavioral disturbance (3) Infection of left foot Code(s): L08.9 - LOCAL INFECTION OF THE SKIN AND SUBCUTANEOUS TISSUE, UNSP (4) Open wound of left foot Code(s): S91.302A - UNSPECIFIED OPEN WOUND, LEFT FOOT, INITIAL ENCOUNTER Qualifiers: Encounter type: sequela Qualified Code(s): S91.302S - Unspecified open wound, left foot, sequela (5) Positive cardiac stress test Code(s): R94.39 - ABNORMAL RESULT OF OTHER CARDIOVASCULAR FUNCTION STUDY (6) Tachycardia Code(s): R00.0 - TACHYCARDIA, UNSPECIFIED (7) Diabetes Code(s): E11.9 - TYPE 2 DIABETES MELLITUS WITHOUT COMPLICATIONS (8) HTN (hypertension) Code(s): I10 - ESSENTIAL (PRIMARY) HYPERTENSION (9) Normocytic anemia Code(s): D64.9 - ANEMIA, UNSPECIFIED Assessment/Plan (1) ACS (acute coronary syndrome) Assessment/Plan: peak TNI 1.79, ekevated CK/CKMB relative index, EKG of sinus tachycardia with T wave changes. CTA: no PE. Continue metoprolol, lisinopril, ASA, clopidogrel. Added spironolactone (severely reduced LVEF; CAD). Code(s): I24.9 - ACUTE ISCHEMIC HEART DISEASE, UNSPECIFIED (2) Dementia Assessment/Plan: progressively severe dementia. Code(s): F03.90 - UNSPECIFIED DEMENTIA WITHOUT BEHAVIORAL DISTURBANCE Qualifiers: Dementia type: Alzheimer's disease Dementia behavioral disturbance: without behavioral disturbance (3) Infection of left foot Code(s): L08.9 - LOCAL INFECTION OF THE SKIN AND SUBCUTANEOUS TISSUE, UNSP (4) Tachycardia Code(s): R00.0 - TACHYCARDIA, UNSPECIFIED (5) Diabetes Code(s): E11.9 - TYPE 2 DIABETES MELLITUS WITHOUT COMPLICATIONS (6) Acute on chronic systolic (congestive) heart failure Assessment/Plan: Continue beta blockers, ACEI. Added spironolactone. Furosemide; f/u BUN/cr, electrolytes, Is and Os, daily weight. (Avoid excessive dehydration: severe aortic stenosis). Pt with severely reduced LVEF, ACS, severe aortic stenosis. Family has refused coronary angiogram and workup regarding valvular heart disease on previous admission; according to daughters, pt has shown steep decline in mental capacity within the past year, and they had wanted him to be kept comfortable. Assessment/Plan cc time spent reviewing chart, examining pt, and writing note: 40 minutes.
--- NOTE | 2017-01-06 14:58 | PN ---
Progress Note (short form) - Note Progress Note: PULMONARY Confused, no fevers recorded. Last Vital Signs Temp Pulse Resp BP Pulse Ox 97.8 F 81 16 97/58 100 01/06/17 09:00 01/06/17 10:51 01/06/17 10:51 01/06/17 10:51 01/06/17 10:18 Gen: confused, NAD Heart: RRR, +systolic murmur Lung: decreased breath sounds at the bases Abd: soft, nontender Ext: +toe gangrene CBC, BMP 01/06/17 05:20 01/06/17 05:20 Active Medications Aspirin (Asa -) 81 mg PO DAILY [facility] Last Admin: 01/06/17 09:29 Dose: 81 mg Clopidogrel Bisulfate (Plavix -) 75 mg PO DAILY [facility] Last Admin: 01/06/17 09:31 Dose: 75 mg Collagenase (Santyl -) 1 applic TP DAILY [facility] Last Admin: 01/06/17 09:32 Dose: 1 applic Haloperidol (Haldol Injection (Fast Acting) -) 5 mg IM Q4H PRN PRN Reason: AGITATION Last Admin: 01/05/17 21:53 Dose: 5 mg Ampicillin Sodium/Sulbactam Sodium (Unasyn 1.5 Gm (Pre-Docked)) 100 mls @ 200 mls/hr IVPB Q6H-IV [facility] Last Admin: 01/06/17 14:13 Dose: 200 mls/hr Lisinopril (Prinivil) 2.5 mg PO DAILY [facility] Last Admin: 01/06/17 09:29 Dose: 2.5 mg Memantine (Namenda -) 10 mg PO BID [facility] Last Admin: 01/06/17 09:31 Dose: 10 mg Metformin HCl (Glucophage Xr -) 500 mg PO BIDI [facility] Last Admin: 01/06/17 06:30 Dose: 500 mg Metoprolol Succinate (Toprol Xl -) 25 mg PO DAILY [facility] Last Admin: 01/06/17 09:29 Dose: 25 mg Morphine Sulfate (Morphine Injection -) 2 mg IVPUSH Q4H PRN PRN Reason: PAIN LEVEL 1-5 Last Admin: 01/04/17 16:27 Dose: 2 mg Morphine Sulfate (Morphine Injection -) 4 mg IVPUSH Q4H PRN PRN Reason: PAIN LEVEL 6-10 Last Admin: 01/05/17 00:39 Dose: 4 mg Quetiapine Fumarate (Seroquel -) 25 mg PO BID [facility] Last Admin: 01/06/17 09:29 Dose: 25 mg Spironolactone (Aldactone -) 25 mg PO DAILY [facility] Last Admin: 01/06/17 09:29 Dose: 25 mg Trazodone HCl (Desyrel -) 100 mg PO HS [facility] Last Admin: 01/05/17 21:53 Dose: 100 mg A/P Acute NSTEMI/+Troponins Severe Aortic Stenosis Mitral Regurgitation Severe LV Systolic Dysfunction UTI Sepsis resolving Lactic Acidosis resolved Dementia - complete antibiotics - ASA, plavix - beta tamika - aldactone, GIO-I - aspiration precautions - O2 as needed - DVT prophylaxis
--- NOTE | 2017-01-06 21:48 | PN ---
Progress Note, Physician History of Present Illness: No new complaints - Current Medication List Current Medications: Active Medications Aspirin (Asa -) 81 mg PO DAILY [facility] Last Admin: 01/06/17 09:29 Dose: 81 mg Clopidogrel Bisulfate (Plavix -) 75 mg PO DAILY [facility] Last Admin: 01/06/17 09:31 Dose: 75 mg Collagenase (Santyl -) 1 applic TP DAILY [facility] Last Admin: 01/06/17 09:32 Dose: 1 applic Haloperidol (Haldol Injection (Fast Acting) -) 5 mg IM Q4H PRN PRN Reason: AGITATION Last Admin: 01/05/17 21:53 Dose: 5 mg Ampicillin Sodium/Sulbactam Sodium (Unasyn 1.5 Gm (Pre-Docked)) 100 mls @ 200 mls/hr IVPB Q6H-IV [facility] Last Admin: 01/06/17 21:29 Dose: 200 mls/hr Lisinopril (Prinivil) 2.5 mg PO DAILY [facility] Last Admin: 01/06/17 09:29 Dose: 2.5 mg Memantine (Namenda -) 10 mg PO BID [facility] Last Admin: 01/06/17 09:31 Dose: 10 mg Metformin HCl (Glucophage Xr -) 500 mg PO BIDI [facility] Last Admin: 01/06/17 19:34 Dose: 500 mg Metoprolol Succinate (Toprol Xl -) 25 mg PO DAILY [facility] Last Admin: 01/06/17 09:29 Dose: 25 mg Morphine Sulfate (Morphine Injection -) 2 mg IVPUSH Q4H PRN PRN Reason: PAIN LEVEL 1-5 Last Admin: 01/04/17 16:27 Dose: 2 mg Morphine Sulfate (Morphine Injection -) 4 mg IVPUSH Q4H PRN PRN Reason: PAIN LEVEL 6-10 Last Admin: 01/05/17 00:39 Dose: 4 mg Quetiapine Fumarate (Seroquel -) 25 mg PO BID [facility] Last Admin: 01/06/17 09:29 Dose: 25 mg Spironolactone (Aldactone -) 25 mg PO DAILY [facility] Last Admin: 01/06/17 09:29 Dose: 25 mg Trazodone HCl (Desyrel -) 100 mg PO HS [facility] Last Admin: 01/05/17 21:53 Dose: 100 mg - Objective Vital Signs: Vital Signs Temperature 97.5 F L 01/06/17 16:58 Pulse Rate 63 01/06/17 16:58 Respiratory Rate 18 01/06/17 16:58 Blood Pressure 159/44 01/06/17 16:58 O2 Sat by Pulse Oximetry (%) 100 01/06/17 10:18 Eyes: Yes: WNL HENT: Yes: WNL Neck: Yes: WNL, Supple Cardiovascular: Yes: WNL, Regular Rate and Rhythm Respiratory: Yes: WNL, Regular, CTA Bilaterally Gastrointestinal: Yes: WNL, Normal Bowel Sounds, Soft Labs: CBC, BMP 01/06/17 05:20 01/06/17 05:20 INR, PTT INR 1.35 (0.82-1.09) H 01/01/17 10:18 Problem List - Problems (1) ACS (acute coronary syndrome) Code(s): I24.9 - ACUTE ISCHEMIC HEART DISEASE, UNSPECIFIED (2) Acute on chronic systolic (congestive) heart failure Code(s): I50.23 - ACUTE ON CHRONIC SYSTOLIC (CONGESTIVE) HEART FAILURE (3) Dementia Code(s): F03.90 - UNSPECIFIED DEMENTIA WITHOUT BEHAVIORAL DISTURBANCE Qualifiers: Dementia type: Alzheimer's disease Dementia behavioral disturbance: without behavioral disturbance (4) Infection of left foot Code(s): L08.9 - LOCAL INFECTION OF THE SKIN AND SUBCUTANEOUS TISSUE, UNSP (5) CAD (coronary artery disease) Code(s): I25.10 - ATHSCL HEART DISEASE OF [place] CORONARY ARTERY W/O ANG PCTRS (6) Diabetes Code(s): E11.9 - TYPE 2 DIABETES MELLITUS WITHOUT COMPLICATIONS (7) HTN (hypertension) Code(s): I10 - ESSENTIAL (PRIMARY) HYPERTENSION
[2017-01-06] MEDS: traZODone HCL 100 MG TABLET (FP) PO SCH (22:46)
[2017-01-07] MEDS: AMPICILLIN NA/SULBACTAM NA 100 ML IVPB SCH ×4 (03:44→21:18)
[2017-01-07 06:53] LABS: BASOPHIL 0.3 % (0-2.0); EOSINOPHIL 2.3 % (0-4.5); MCH 27.6 pg (25.7-33.7); MCHC 32.4 g/dl (32.0-35.9); MEAN CELL VOLUME 84.9 fl (80-96); MEAN PLT VOLUME 8.5 fl (7.5-11.1); NEUTROPHILS 73.7 % (42.8-82.8); PLATELET COUNT 466 K/MM3 (134-434); RDW 14.2 % (11.9-15.9); WHITE BLOOD COUNT 11.8 K/mm3 (4.0-10.0)
[2017-01-07 07:39] LABS: ALBUMIN 2.2 g/dl (3.4-5.0); ALK PHOS 78 U/L (45-117); ANION GAP 6 (8-16); BILIRUBIN,TOTAL 0.6 mg/dL (0.2-1.0); CALCIUM 8.7 mg/dL (8.5-10.1); CO2 32 mmol/L (21-32); CREATININE 0.7 mg/dL (0.7-1.3); GLUCOSE,RANDOM 167 mg/dL (74-106); SGOT/AST 13 U/L (15-37); SGPT/ALT 21 U/L (12-78); TROPONIN I 0.25 ng/ml (0.00-0.05)
[2017-01-07] MEDS: ASPIRIN 81 MG CHEWABLE TABLETS PO SCH (10:06)
[2017-01-07] MEDS: QUEtiapine FUMARATE 25 MG TABLET (FP) PO SCH ×2 (10:06→21:18)
[2017-01-07] MEDS: METOPROLOL SUCCINATE 25 MG TAB.SR.24H (FP) PO SCH (10:06)
[2017-01-07] MEDS: CLOPIDOGREL BISULFATE 75 MG TABLET (FP) PO SCH (10:06)
[2017-01-07] MEDS: SPIRONOLACTONE 25 MG TABLET (FP) PO SCH (10:06)
[2017-01-07] MEDS: LISINOPRIL 5 MG TABLET (FP) PO SCH (10:06)
[2017-01-07] MEDS: MEMANTINE HCL 10 MG TABLET (FP) PO SCH ×2 (10:07→21:18)
[2017-01-07] MEDS: COLLAGENASE CLOSTRIDIUM HIST. 30 GRAMS TUBE TP SCH (10:14)
--- NOTE | 2017-01-07 11:46 | PN ---
Progress Note (short form) - Note Progress Note: PULMONARY Appears comfortable, no fevers recorded. Last Vital Signs Temp Pulse Resp BP Pulse Ox 98.7 F 89 15 107/57 100 01/07/17 08:00 01/07/17 08:00 01/07/17 08:00 01/07/17 08:00 01/06/17 22:00 Gen: confused, NAD Heart: RRR, +systolic murmur Lung: decreased breath sounds at the bases Abd: soft, nontender Ext: +toe gangrene CBC, BMP 01/07/17 05:20 01/07/17 05:20 Active Medications Aspirin (Asa -) 81 mg PO DAILY [facility] Last Admin: 01/07/17 10:06 Dose: 81 mg Clopidogrel Bisulfate (Plavix -) 75 mg PO DAILY [facility] Last Admin: 01/07/17 10:06 Dose: 75 mg Collagenase (Santyl -) 1 applic TP DAILY [facility] Last Admin: 01/07/17 10:14 Dose: 1 applic Haloperidol (Haldol Injection (Fast Acting) -) 5 mg IM Q4H PRN PRN Reason: AGITATION Last Admin: 01/05/17 21:53 Dose: 5 mg Ampicillin Sodium/Sulbactam Sodium (Unasyn 1.5 Gm (Pre-Docked)) 100 mls @ 200 mls/hr IVPB Q6H-IV [facility] Last Admin: 01/07/17 10:00 Dose: 200 mls/hr Lisinopril (Prinivil) 2.5 mg PO DAILY [facility] Last Admin: 01/07/17 10:06 Dose: 2.5 mg Memantine (Namenda -) 10 mg PO BID [facility] Last Admin: 01/07/17 10:07 Dose: 10 mg Metformin HCl (Glucophage Xr -) 500 mg PO BIDI [facility] Last Admin: 01/07/17 06:59 Dose: 500 mg Metoprolol Succinate (Toprol Xl -) 25 mg PO DAILY [facility] Last Admin: 01/07/17 10:06 Dose: 25 mg Morphine Sulfate (Morphine Injection -) 2 mg IVPUSH Q4H PRN PRN Reason: PAIN LEVEL 1-5 Last Admin: 01/04/17 16:27 Dose: 2 mg Morphine Sulfate (Morphine Injection -) 4 mg IVPUSH Q4H PRN PRN Reason: PAIN LEVEL 6-10 Last Admin: 01/05/17 00:39 Dose: 4 mg Quetiapine Fumarate (Seroquel -) 25 mg PO BID [facility] Last Admin: 01/07/17 10:06 Dose: 25 mg Spironolactone (Aldactone -) 25 mg PO DAILY [facility] Last Admin: 01/07/17 10:06 Dose: 25 mg Trazodone HCl (Desyrel -) [address] [facility] Last Admin: 01/06/17 22:46 Dose: 100 mg A/P Acute NSTEMI/+Troponins Severe Aortic Stenosis Mitral Regurgitation Severe LV Systolic Dysfunction UTI Sepsis resolving Lactic Acidosis resolved Dementia - complete antibiotics - ASA, plavix - beta tamika - aldactone, GIO-I - aspiration precautions - O2 as needed - DVT prophylaxis
--- NOTE | 2017-01-07 14:00 | PN ---
Progress Note, Physician Chief Complaint: Pt converses; remains confused. History of Present Illness: The patient is a 76 year old male (louisa Cabrera), [place] with a significant past medical history of Alzheimer's, HLD, NIDDM, HTN, who presents to the emergency department with lethargy and worsening mental status since yesterday. The patient is here with his daughter who reports the patient waking up feeling more lethargic today. The daughter notes that yesterday he was more "sluggish" when walking up the 3 flights of steps to his apartment and seemed SOB while walking up stairs. Daughter denies recent fevers, chills, cough or any recent expressions of pain or discomfort by the pt. Daughter denies any recent nausea, vomit, diarrhea or constipation. Daughter denies any recent cough. This HPI is limited due to the patients worsening dementia and obtained primarily from daugther.. Allergies: NKA Past surgical history: None reported. Social History: Nonsmoker. Denies EtOH use and recreational drug use. Primary Care Physician:Dr.James Sears - Current Medication List Current Medications: Active Medications Aspirin (Asa -) 81 mg PO DAILY [facility] Last Admin: 01/07/17 10:06 Dose: 81 mg Clopidogrel Bisulfate (Plavix -) 75 mg PO DAILY [facility] Last Admin: 01/07/17 10:06 Dose: 75 mg Collagenase (Santyl -) 1 applic TP DAILY [facility] Last Admin: 01/07/17 10:14 Dose: 1 applic Haloperidol (Haldol Injection (Fast Acting) -) 5 mg IM Q4H PRN PRN Reason: AGITATION Last Admin: 01/05/17 21:53 Dose: 5 mg Ampicillin Sodium/Sulbactam Sodium (Unasyn 1.5 Gm (Pre-Docked)) 100 mls @ 200 mls/hr IVPB Q6H-IV [facility] Last Admin: 01/07/17 10:00 Dose: 200 mls/hr Lisinopril (Prinivil) 2.5 mg PO DAILY [facility] Last Admin: 01/07/17 10:06 Dose: 2.5 mg Memantine (Namenda -) 10 mg PO BID [facility] Last Admin: 01/07/17 10:07 Dose: 10 mg Metformin HCl (Glucophage Xr -) 500 mg PO BIDI [facility] Last Admin: 01/07/17 06:59 Dose: 500 mg Metoprolol Succinate (Toprol Xl -) 25 mg PO DAILY [facility] Last Admin: 01/07/17 10:06 Dose: 25 mg Morphine Sulfate (Morphine Injection -) 2 mg IVPUSH Q4H PRN PRN Reason: PAIN LEVEL 1-5 Last Admin: 01/04/17 16:27 Dose: 2 mg Morphine Sulfate (Morphine Injection -) 4 mg IVPUSH Q4H PRN PRN Reason: PAIN LEVEL 6-10 Last Admin: 01/05/17 00:39 Dose: 4 mg Quetiapine Fumarate (Seroquel -) 25 mg PO BID [facility] Last Admin: 01/07/17 10:06 Dose: 25 mg Spironolactone (Aldactone -) 25 mg PO DAILY [facility] Last Admin: 01/07/17 10:06 Dose: 25 mg Trazodone HCl (Desyrel -) 100 mg PO HS [facility] Last Admin: 01/06/17 22:46 Dose: 100 mg - Objective Vital Signs: Vital Signs Temperature 98.8 F 01/07/17 13:09 Pulse Rate 88 01/07/17 13:09 Respiratory Rate 15 01/07/17 13:09 Blood Pressure 103/63 01/07/17 13:09 O2 Sat by Pulse Oximetry (%) 100 01/06/17 22:00 Constitutional: Yes: Thin Eyes: Yes: WNL HENT: Yes: WNL Neck: Yes: WNL Cardiovascular: Yes: Murmur (systolic: 3/6, RSB-->apex), S1, S2 Respiratory: Yes: Regular Gastrointestinal: Yes: Soft ...Rectal Exam: Yes: Deferred Genitourinary: No: Anuria Musculoskeletal: Yes: Muscle Weakness Extremities: Yes: Cool Edema: No Peripheral Pulses WNL: No Peripheral Pulses: Left Doralis Pedis: 1+, Right Dorsalis Pedis: 1+ Integumentary: Yes: WNL Neurological: Yes: Confusion Psychiatric: Yes: Other (dementia) Labs: CBC, BMP 01/07/17 05:20 01/07/17 05:20 INR, PTT INR 1.35 (0.82-1.09) H 01/01/17 10:18 - ....Imaging Other: Image Reviewed (telemetry: NSR) Problem List - Problems (1) ACS (acute coronary syndrome) Assessment/Plan: severely reduced LVEF, with significant and AR. Continie present medications. Marked dementia. Conservative management (ie no coronary angiogram or further valvular workup) at present. Code(s): I24.9 - ACUTE ISCHEMIC HEART DISEASE, UNSPECIFIED (2) Dementia Code(s): F03.90 - UNSPECIFIED DEMENTIA WITHOUT BEHAVIORAL DISTURBANCE Qualifiers: Dementia type: Alzheimer's disease Dementia behavioral disturbance: without behavioral disturbance (3) Infection of left foot Code(s): L08.9 - LOCAL INFECTION OF THE SKIN AND SUBCUTANEOUS TISSUE, UNSP (4) Tachycardia Code(s): R00.0 - TACHYCARDIA, UNSPECIFIED (5) Diabetes Code(s): E11.9 - TYPE 2 DIABETES MELLITUS WITHOUT COMPLICATIONS (6) Acute on chronic systolic (congestive) heart failure Code(s): I50.23 - ACUTE ON CHRONIC SYSTOLIC (CONGESTIVE) HEART FAILURE
[2017-01-07] MEDS ORDERED: ACETAMINOPHEN 325 MG TABLET (FP) PO PRN (20:04)
[2017-01-07] MEDS: traZODone HCL 100 MG TABLET (FP) PO SCH (21:18)
--- NOTE | 2017-01-07 22:29 | PN ---
Progress Note, Physician History of Present Illness: No new complaints - Current Medication List Current Medications: Active Medications Acetaminophen (Tylenol -) 650 mg PO Q6H PRN PRN Reason: FEVER OR PAIN Last Admin: 01/07/17 21:18 Dose: 650 mg Aspirin (Asa -) 81 mg PO DAILY [facility] Last Admin: 01/07/17 10:06 Dose: 81 mg Clopidogrel Bisulfate (Plavix -) 75 mg PO DAILY [facility] Last Admin: 01/07/17 10:06 Dose: 75 mg Collagenase (Santyl -) 1 applic TP DAILY [facility] Last Admin: 01/07/17 10:14 Dose: 1 applic Haloperidol (Haldol Injection (Fast Acting) -) 5 mg IM Q4H PRN PRN Reason: AGITATION Last Admin: 01/05/17 21:53 Dose: 5 mg Ampicillin Sodium/Sulbactam Sodium (Unasyn 1.5 Gm (Pre-Docked)) 100 mls @ 200 mls/hr IVPB Q6H-IV [facility] Last Admin: 01/07/17 21:18 Dose: 200 mls/hr Lisinopril (Prinivil) 2.5 mg PO DAILY [facility] Last Admin: 01/07/17 10:06 Dose: 2.5 mg Memantine (Namenda -) 10 mg PO BID [facility] Last Admin: 01/07/17 21:18 Dose: 10 mg Metformin HCl (Glucophage Xr -) 500 mg PO BIDI [facility] Last Admin: 01/07/17 17:04 Dose: 500 mg Metoprolol Succinate (Toprol Xl -) 25 mg PO DAILY [facility] Last Admin: 01/07/17 10:06 Dose: 25 mg Quetiapine Fumarate (Seroquel -) 25 mg PO BID [facility] Last Admin: 01/07/17 21:18 Dose: 25 mg Spironolactone (Aldactone -) 25 mg PO DAILY [facility] Last Admin: 01/07/17 10:06 Dose: 25 mg Trazodone HCl (Desyrel -) 100 mg PO HS [facility] Last Admin: 01/07/17 21:18 Dose: 100 mg - Objective Vital Signs: Vital Signs Temperature 99.3 F 01/07/17 21:00 Pulse Rate 87 01/07/17 21:00 Respiratory Rate 18 01/07/17 21:00 Blood Pressure 117/51 01/07/17 21:00 O2 Sat by Pulse Oximetry (%) 100 01/07/17 20:45 Constitutional: Yes: No Distress Eyes: Yes: WNL HENT: Yes: WNL Neck: Yes: WNL, Supple Cardiovascular: Yes: WNL, Regular Rate and Rhythm Respiratory: Yes: WNL, Regular, CTA Bilaterally Gastrointestinal: Yes: WNL, Normal Bowel Sounds, Soft Extremities: Yes: Other ((+) dry gangrene Rt 1st/3rd toes) Labs: CBC, BMP 01/07/17 05:20 01/07/17 05:20 INR, PTT INR 1.35 (0.82-1.09) H 01/01/17 10:18 Problem List - Problems (1) ACS (acute coronary syndrome) Assessment/Plan: (+) Troponin still elevated Cont to trend Cont asa/plavix Code(s): I24.9 - ACUTE ISCHEMIC HEART DISEASE, UNSPECIFIED (2) Infection of left foot Assessment/Plan: Cont IV unasyn Code(s): L08.9 - LOCAL INFECTION OF THE SKIN AND SUBCUTANEOUS TISSUE, UNSP (3) Acute on chronic systolic (congestive) heart failure Assessment/Plan: Cont spirinolactone Monitor electrolytes Code(s): I50.23 - ACUTE ON CHRONIC SYSTOLIC (CONGESTIVE) HEART FAILURE (4) HTN (hypertension) Code(s): I10 - ESSENTIAL (PRIMARY) HYPERTENSION (5) Dementia Code(s): F03.90 - UNSPECIFIED DEMENTIA WITHOUT BEHAVIORAL DISTURBANCE Qualifiers: Dementia type: Alzheimer's disease Dementia behavioral disturbance: without behavioral disturbance (6) CAD (coronary artery disease) Code(s): I25.10 - ATHSCL HEART DISEASE OF [place] CORONARY ARTERY W/O ANG PCTRS (7) Diabetes Code(s): E11.9 - TYPE 2 DIABETES MELLITUS WITHOUT COMPLICATIONS
[2017-01-08] MEDS: AMPICILLIN NA/SULBACTAM NA 100 ML IVPB SCH ×4 (02:33→21:47)
[2017-01-08] MEDS ORDERED: PT OWN MED DRAWER 7, Y5N ONE ×2 (09:36→21:42)
[2017-01-08] MEDS: LISINOPRIL 5 MG TABLET (FP) PO SCH (09:46)
[2017-01-08] MEDS: SPIRONOLACTONE 25 MG TABLET (FP) PO SCH (09:47)
[2017-01-08] MEDS: QUEtiapine FUMARATE 25 MG TABLET (FP) PO SCH ×2 (09:47→21:47)
[2017-01-08] MEDS: MEMANTINE HCL 10 MG TABLET (FP) PO SCH ×2 (09:47→21:47)
[2017-01-08] MEDS: CLOPIDOGREL BISULFATE 75 MG TABLET (FP) PO SCH (09:47)
[2017-01-08] MEDS: ASPIRIN 81 MG CHEWABLE TABLETS PO SCH (09:47)
[2017-01-08] MEDS: METOPROLOL SUCCINATE 25 MG TAB.SR.24H (FP) PO SCH (09:47)
--- NOTE | 2017-01-08 10:15 | PN ---
Progress Note, Physician History of Present Illness: The patient is a 76 year old male, [place] with a significant past medical history of Alzheimer's, HLD, NIDDM, HTN, who presents to the emergency department with lethargy and worsening mental status since yesterday. The patient is here with his daughter who reports the patient waking up feeling more lethargic today. The daughter notes that yesterday he was more "sluggish" when walking up the 3 flights of steps to his apartment and seemed SOB while walking up stairs. Daughter denies recent fevers, chills, cough or any recent expressions of pain or discomfort by the pt. Daughter denies any recent nausea, vomit, diarrhea or constipation. Daughter denies any recent cough. This HPI is limited due to the patients worsening dementia and obtained primarily from [place].. Allergies: NKA Past surgical history: None reported. Social History: Nonsmoker. Denies EtOH use and recreational drug use. Primary Care Physician:Dr.James Sears - Current Medication List Current Medications: Active Medications Acetaminophen (Tylenol -) 650 mg PO Q6H PRN PRN Reason: FEVER OR PAIN Last Admin: 01/07/17 21:18 Dose: 650 mg Aspirin (Asa -) 81 mg PO DAILY [facility] Last Admin: 01/08/17 09:47 Dose: 81 mg Clopidogrel Bisulfate (Plavix -) 75 mg PO DAILY [facility] Last Admin: 01/08/17 09:47 Dose: 75 mg Collagenase (Santyl -) 1 applic TP DAILY [facility] Last Admin: 01/07/17 10:14 Dose: 1 applic Haloperidol (Haldol Injection (Fast Acting) -) 5 mg IM Q4H PRN PRN Reason: AGITATION Last Admin: 01/05/17 21:53 Dose: 5 mg Ampicillin Sodium/Sulbactam Sodium (Unasyn 1.5 Gm (Pre-Docked)) 100 mls @ 200 mls/hr IVPB Q6H-IV [facility] Last Admin: 01/08/17 09:45 Dose: 200 mls/hr Lisinopril (Prinivil) 2.5 mg PO DAILY [facility] Last Admin: 01/08/17 09:46 Dose: 2.5 mg Memantine (Namenda -) 10 mg PO BID [facility] Last Admin: 01/08/17 09:47 Dose: 10 mg Metformin HCl (Glucophage Xr -) 500 mg PO BIDI [facility] Last Admin: 01/08/17 06:33 Dose: Not Given Metoprolol Succinate (Toprol Xl -) 25 mg PO DAILY [facility] Last Admin: 01/08/17 09:47 Dose: 25 mg Quetiapine Fumarate (Seroquel -) 25 mg PO BID [facility] Last Admin: 01/08/17 09:47 Dose: 25 mg Spironolactone (Aldactone -) 25 mg PO DAILY [facility] Last Admin: 01/08/17 09:47 Dose: 25 mg Trazodone HCl (Desyrel -) 100 mg PO HS [facility] Last Admin: 01/07/17 21:18 Dose: 100 mg - Objective Vital Signs: Vital Signs Temperature 97.8 F 01/08/17 09:52 Pulse Rate 88 01/08/17 09:52 Respiratory Rate 17 01/08/17 09:52 Blood Pressure 98/62 01/08/17 09:52 O2 Sat by Pulse Oximetry (%) 100 01/07/17 20:45 Eyes: Yes: WNL, Conjunctiva Clear, EOM Intact HENT: Yes: WNL, Atraumatic, Normocephalic Neck: Yes: WNL, Supple, Trachea Midline Cardiovascular: Yes: WNL, Regular Rate and Rhythm Respiratory: Yes: WNL, Regular, CTA Bilaterally Gastrointestinal: Yes: WNL, Normal Bowel Sounds Genitourinary: Yes: WNL Musculoskeletal: Yes: WNL Extremities: Yes: WNL Edema: No Integumentary: Yes: WNL Neurological: Yes: WNL, Alert, Oriented ...Motor Strength: WNL Psychiatric: Yes: WNL Labs: CBC, BMP 01/07/17 05:20 01/07/17 05:20 INR, PTT INR 1.35 (0.82-1.09) H 01/01/17 10:18 Problem List - Problems (1) CAD (coronary artery disease) Code(s): I25.10 - ATHSCL HEART DISEASE OF [place] CORONARY ARTERY W/O ANG PCTRS (2) Dementia Code(s): F03.90 - UNSPECIFIED DEMENTIA WITHOUT BEHAVIORAL DISTURBANCE Qualifiers: Dementia type: Alzheimer's disease Dementia behavioral disturbance: without behavioral disturbance (3) Infection of left foot Code(s): L08.9 - LOCAL INFECTION OF THE SKIN AND SUBCUTANEOUS TISSUE, UNSP (4) Open wound of left foot Code(s): S91.302A - UNSPECIFIED OPEN WOUND, LEFT FOOT, INITIAL ENCOUNTER Qualifiers: Encounter type: sequela Qualified Code(s): S91.302S - Unspecified open wound, left foot, sequela (5) Positive cardiac stress test Code(s): R94.39 - ABNORMAL RESULT OF OTHER CARDIOVASCULAR FUNCTION STUDY (6) Tachycardia Code(s): R00.0 - TACHYCARDIA, UNSPECIFIED (7) Diabetes Code(s): E11.9 - TYPE 2 DIABETES MELLITUS WITHOUT COMPLICATIONS (8) HTN (hypertension) Code(s): I10 - ESSENTIAL (PRIMARY) HYPERTENSION (9) Normocytic anemia Code(s): D64.9 - ANEMIA, UNSPECIFIED Assessment/Plan - Problems (1) ACS (acute coronary syndrome) Assessment/Plan: severely reduced LVEF, with significant and AR. Continie present medications. Marked dementia. Conservative management (ie no coronary angiogram or further valvular workup) at present. Code(s): I24.9 - ACUTE ISCHEMIC HEART DISEASE, UNSPECIFIED (2) Dementia Code(s): F03.90 - UNSPECIFIED DEMENTIA WITHOUT BEHAVIORAL DISTURBANCE Qualifiers: Dementia type: Alzheimer's disease Dementia behavioral disturbance: without behavioral disturbance (3) Infection of left foot Code(s): L08.9 - LOCAL INFECTION OF THE SKIN AND SUBCUTANEOUS TISSUE, UNSP (4) Tachycardia Code(s): R00.0 - TACHYCARDIA, UNSPECIFIED (5) Diabetes Code(s): E11.9 - TYPE 2 DIABETES MELLITUS WITHOUT COMPLICATIONS (6) Acute on chronic systolic (congestive) heart failure Code(s): I50.23 - ACUTE ON CHRONIC SYSTOLIC (CONGESTIVE) HEART FAILURE
--- NOTE | 2017-01-08 10:44 | EKG ---
Test Reason : Blood Pressure : / mmHG Vent. Rate : 135 BPM Atrial Rate : 136 BPM P-R Int : 000 ms QRS Dur : 104 ms QT Int : 276 ms P-R-T Axes : 000 -24 255 degrees QTc Int : 414 ms SINUS TACHYCARDIA WITH PREMATURE ATRIAL COMPLEXES SEPTAL INFARCT (CITED ON OR BEFORE 01-JAN-2017) ABNORMAL ECG WHEN COMPARED WITH ECG OF 01-JAN-2017 09:42, PREMATURE ATRIAL COMPLEXES ARE NOW PRESENT SERIAL CHANGES OF EVOLVING SEPTAL INFARCT PRESENT Confirmed by MAGDI REYES, SUNNY ([id number]) on 01/08/2017 10:43:39 AM Referred By: Confirmed By:SUNNY FAIRBANKS MD
--- NOTE | 2017-01-08 12:53 | PN ---
Progress Note (short form) - Note Progress Note: PULMONARY Appears comfortable, no fevers recorded. Last Vital Signs Temp Pulse Resp BP Pulse Ox 97.8 F 88 17 98/62 100 01/08/17 09:52 01/08/17 09:52 01/08/17 09:52 01/08/17 09:52 01/08/17 09:50 Gen: confused, NAD Heart: RRR, +systolic murmur Lung: decreased breath sounds at the bases Abd: soft, nontender Ext: +toe gangrene CBC, BMP 01/07/17 05:20 01/07/17 05:20 Active Medications Acetaminophen (Tylenol -) 650 mg PO Q6H PRN PRN Reason: FEVER OR PAIN Last Admin: 01/07/17 21:18 Dose: 650 mg Aspirin (Asa -) 81 mg PO DAILY [facility] Last Admin: 01/08/17 09:47 Dose: 81 mg Clopidogrel Bisulfate (Plavix -) 75 mg PO DAILY [facility] Last Admin: 01/08/17 09:47 Dose: 75 mg Collagenase (Santyl -) 1 applic TP DAILY [facility] Last Admin: 01/07/17 10:14 Dose: 1 applic Haloperidol (Haldol Injection (Fast Acting) -) 5 mg IM Q4H PRN PRN Reason: AGITATION Last Admin: 01/05/17 21:53 Dose: 5 mg Ampicillin Sodium/Sulbactam Sodium (Unasyn 1.5 Gm (Pre-Docked)) 100 mls @ 200 mls/hr IVPB Q6H-IV [facility] Last Admin: 01/08/17 09:45 Dose: 200 mls/hr Lisinopril (Prinivil) 2.5 mg PO DAILY [facility] Last Admin: 01/08/17 09:46 Dose: 2.5 mg Memantine (Namenda -) 10 mg PO BID [facility] Last Admin: 01/08/17 09:47 Dose: 10 mg Metformin HCl (Glucophage Xr -) 500 mg PO BIDI [facility] Last Admin: 01/08/17 06:33 Dose: Not Given Metoprolol Succinate (Toprol Xl -) 25 mg PO DAILY [facility] Last Admin: 01/08/17 09:47 Dose: 25 mg Quetiapine Fumarate (Seroquel -) 25 mg PO BID [facility] Last Admin: 01/08/17 09:47 Dose: 25 mg Spironolactone (Aldactone -) 25 mg PO DAILY [facility] Last Admin: 01/08/17 09:47 Dose: 25 mg Trazodone HCl (Desyrel -) 100 mg PO [facility] Last Admin: 01/07/17 21:18 Dose: 100 mg A/P Acute NSTEMI/+Troponins Severe Aortic Stenosis Mitral Regurgitation Severe LV Systolic Dysfunction UTI Sepsis resolving Lactic Acidosis resolved Dementia - complete antibiotics - ASA, plavix - beta tamika - aldactone, GIO-I - aspiration precautions - O2 as needed - DVT prophylaxis
[2017-01-08] MEDS: COLLAGENASE CLOSTRIDIUM HIST. 30 GRAMS TUBE TP SCH (15:02)
[2017-01-08] MEDS: metFORMIN HCL 500 MG TABLET (FP) PO SCH (18:03)
[2017-01-08] MEDS: traZODone HCL 100 MG TABLET (FP) PO SCH (21:47)
--- NOTE | 2017-01-08 22:28 | PN ---
Progress Note, Physician History of Present Illness: No new complaints - Current Medication List Current Medications: Active Medications Acetaminophen (Tylenol -) 650 mg PO Q6H PRN PRN Reason: FEVER OR PAIN Last Admin: 01/07/17 21:18 Dose: 650 mg Aspirin (Asa -) 81 mg PO DAILY [facility] Last Admin: 01/08/17 09:47 Dose: 81 mg Clopidogrel Bisulfate (Plavix -) 75 mg PO DAILY [facility] Last Admin: 01/08/17 09:47 Dose: 75 mg Collagenase (Santyl -) 1 applic TP DAILY [facility] Last Admin: 01/08/17 15:02 Dose: 1 applic Haloperidol (Haldol Injection (Fast Acting) -) 5 mg IM Q4H PRN PRN Reason: AGITATION Last Admin: 01/05/17 21:53 Dose: 5 mg Ampicillin Sodium/Sulbactam Sodium (Unasyn 1.5 Gm (Pre-Docked)) 100 mls @ 200 mls/hr IVPB Q6H-IV [facility] Last Admin: 01/08/17 21:47 Dose: 200 mls/hr Lisinopril (Prinivil) 2.5 mg PO DAILY [facility] Last Admin: 01/08/17 09:46 Dose: 2.5 mg Memantine (Namenda -) 10 mg PO BID [facility] Last Admin: 01/08/17 21:47 Dose: 10 mg Metformin HCl (Glucophage -) 500 mg PO BIDI [facility] Last Admin: 01/08/17 18:03 Dose: 500 mg Metoprolol Succinate (Toprol Xl -) 25 mg PO DAILY [facility] Last Admin: 01/08/17 09:47 Dose: 25 mg Quetiapine Fumarate (Seroquel -) 25 mg PO BID [facility] Last Admin: 01/08/17 21:47 Dose: 25 mg Spironolactone (Aldactone -) 25 mg PO DAILY [facility] Last Admin: 01/08/17 09:47 Dose: 25 mg Trazodone HCl (Desyrel -) 100 mg PO HS [facility] Last Admin: 01/08/17 21:47 Dose: 100 mg - Objective Vital Signs: Vital Signs Temperature 98.4 F 01/08/17 18:43 Pulse Rate 93 H 01/08/17 18:43 Respiratory Rate 18 01/08/17 18:43 Blood Pressure 140/66 01/08/17 18:43 O2 Sat by Pulse Oximetry (%) 96 01/08/17 14:22 Constitutional: Yes: No Distress Eyes: Yes: WNL HENT: Yes: WNL Neck: Yes: WNL, Supple Cardiovascular: Yes: WNL, Regular Rate and Rhythm Respiratory: Yes: WNL, Regular, CTA Bilaterally Gastrointestinal: Yes: WNL, Normal Bowel Sounds, Soft Labs: CBC, BMP 01/07/17 05:20 01/07/17 05:20 INR, PTT INR 1.35 (0.82-1.09) H 01/01/17 10:18 Problem List - Problems (1) ACS (acute coronary syndrome) Code(s): I24.9 - ACUTE ISCHEMIC HEART DISEASE, UNSPECIFIED (2) Infection of left foot Code(s): L08.9 - LOCAL INFECTION OF THE SKIN AND SUBCUTANEOUS TISSUE, UNSP (3) Acute on chronic systolic (congestive) heart failure Code(s): I50.23 - ACUTE ON CHRONIC SYSTOLIC (CONGESTIVE) HEART FAILURE (4) HTN (hypertension) Code(s): I10 - ESSENTIAL (PRIMARY) HYPERTENSION (5) Dementia Code(s): F03.90 - UNSPECIFIED DEMENTIA WITHOUT BEHAVIORAL DISTURBANCE (6) CAD (coronary artery disease) Code(s): I25.10 - ATHSCL HEART DISEASE OF [place] CORONARY ARTERY W/O ANG PCTRS (7) Diabetes Code(s): E11.9 - TYPE 2 DIABETES MELLITUS WITHOUT COMPLICATIONS
[2017-01-09] MEDS: AMPICILLIN NA/SULBACTAM NA 100 ML IVPB SCH ×2 (02:01→09:38)
[2017-01-09 02:41] LABS: URINE APPEARANCE CLEAR; URINE BILIRUBIN NEGATIVE (NEGATIVE); URINE COLOR YELLOW; URINE GLUCOSE (UA) 1+ (NEGATIVE); URINE KETONE NEGATIVE (NEGATIVE); URINE LEUK ESTERASE NEGATIVE (NEGATIVE); URINE NITRITE NEGATIVE (NEGATIVE); URINE UROBILINOGEN NEGATIVE E.U./dl (0.2-1.0)
[2017-01-09 02:51] LABS: URINE BLOOD 1+ (NEGATIVE); URINE PROTEIN 1+ (NEGATIVE)
[2017-01-09 02:53] LABS: URINE BACTERIA RARE /hpf (NONE SEEN); URINE MUCUS FEW; URINE RBC 10 /hpf (0-3); URINE WBC 5 /hpf (3-5)
[2017-01-09] MEDS: metFORMIN HCL 500 MG TABLET (FP) PO SCH ×2 (06:33→18:08)
[2017-01-09] MEDS: CLOPIDOGREL BISULFATE 75 MG TABLET (FP) PO SCH ×2 (09:39→17:37)
[2017-01-09] MEDS: LISINOPRIL 5 MG TABLET (FP) PO SCH (09:39)
[2017-01-09] MEDS: QUEtiapine FUMARATE 25 MG TABLET (FP) PO SCH ×2 (09:39→22:00)
[2017-01-09] MEDS: SPIRONOLACTONE 25 MG TABLET (FP) PO SCH (09:40)
[2017-01-09] MEDS: MEMANTINE HCL 10 MG TABLET (FP) PO SCH ×2 (09:40→22:00)
[2017-01-09] MEDS: ASPIRIN 81 MG CHEWABLE TABLETS PO SCH (09:40)
[2017-01-09] MEDS: METOPROLOL SUCCINATE 25 MG TAB.SR.24H (FP) PO SCH (09:40)
[2017-01-09] MEDS: COLLAGENASE CLOSTRIDIUM HIST. 30 GRAMS TUBE TP SCH (09:45)
--- NOTE | 2017-01-09 12:09 | PN ---
Progress Note (short form) - Note Progress Note: PULMONARY Appears comfortable, confused. No fevers recorded. Last Vital Signs Temp Pulse Resp BP Pulse Ox 98.2 F 94 H 18 119/79 96 01/09/17 10:00 01/09/17 10:00 01/09/17 10:00 01/09/17 10:00 01/09/17 10:00 Gen: confused, NAD Heart: RRR, +systolic murmur Lung: decreased breath sounds at the bases Abd: soft, nontender Ext: +toe gangrene CBC, BMP 01/07/17 05:20 01/07/17 05:20 Active Medications Acetaminophen (Tylenol -) 650 mg PO Q6H PRN PRN Reason: FEVER OR PAIN Last Admin: 01/07/17 21:18 Dose: 650 mg Aspirin (Asa -) 81 mg PO DAILY [facility] Last Admin: 01/09/17 09:40 Dose: 81 mg Clopidogrel Bisulfate (Plavix -) 75 mg PO DAILY [facility] Last Admin: 01/09/17 09:39 Dose: 75 mg Collagenase (Santyl -) 1 applic TP DAILY [facility] Last Admin: 01/09/17 09:45 Dose: 1 applic Haloperidol (Haldol Injection (Fast Acting) -) 5 mg IM Q4H PRN PRN Reason: AGITATION Last Admin: 01/05/17 21:53 Dose: 5 mg Ampicillin Sodium/Sulbactam Sodium (Unasyn 1.5 Gm (Pre-Docked)) 100 mls @ 200 mls/hr IVPB Q6H-IV [facility] Last Admin: 01/09/17 09:38 Dose: 200 mls/hr Lisinopril (Prinivil) 2.5 mg PO DAILY [facility] Last Admin: 01/09/17 09:39 Dose: 2.5 mg Memantine (Namenda -) 10 mg PO BID [facility] Last Admin: 01/09/17 09:40 Dose: 10 mg Metformin HCl (Glucophage -) 500 mg PO BIDI [facility] Last Admin: 01/09/17 06:33 Dose: 500 mg Metoprolol Succinate (Toprol Xl -) 25 mg PO DAILY [facility] Last Admin: 01/09/17 09:40 Dose: 25 mg Quetiapine Fumarate (Seroquel -) 25 mg PO BID [facility] Last Admin: 01/09/17 09:39 Dose: 25 mg Spironolactone (Aldactone -) 25 mg PO DAILY [facility] Last Admin: 01/09/17 09:40 Dose: 25 mg Trazodone HCl (Desyrel -) 100 mg PO [facility] Last Admin: 01/08/17 21:47 Dose: 100 mg A/P Acute NSTEMI/+Troponins Severe Aortic Stenosis Mitral Regurgitation Severe LV Systolic Dysfunction UTI Sepsis resolving Lactic Acidosis resolved Dementia - complete antibiotics - ASA, plavix - beta tamika - aldactone, GIO-I - aspiration precautions - O2 as needed - DVT prophylaxis
[2017-01-09] MEDS: HALOPERIDOL LACTATE 5 MG/ML IM PRN (16:15)
[2017-01-09] MEDS ORDERED: FUROSEMIDE 40 MG/4 ML INJECTABLE VIAL IVPUSH ONE ×2 (16:58→17:17)
[2017-01-09] MEDS ORDERED: HEPARIN NA (PORCINE) 5,000 UNITS/ML 1ML VIAL IVPUSH PRN (17:00)
[2017-01-09] MEDS ORDERED: METOPROLOL TARTRATE 5 MG/5 ML VIAL IVPUSH ONE ×2 (17:02→17:14)
[2017-01-09] MEDS ORDERED: METOPROLOL TARTRATE 5 MG/5 ML VIAL ONE ×2 (17:03→17:15)
[2017-01-09 17:05] LABS: ARTERIAL BLD GAS O2 SATURATION 98.4 % (90-98.9); ARTERIAL BLOOD GAS BASE EXCESS -4.2 meq/l (-2-2); ARTERIAL BLOOD GAS HCO3 21.8 meq/L (22-26)
[2017-01-09 17:06] LABS: ALLENS TEST POSITIVE; ART PUNCT SITE LEFT RADIAL; LPM/O2% 100%; PT. ON O2? YES; TYPE OF O2 NRB MASK
[2017-01-09] MEDS ORDERED: ASPIRIN 325 MG TABLET PO ONE (17:06)
[2017-01-09 17:07] LABS: ARTERIAL BLOOD GAS pH 7.29 (7.35-7.45)
[2017-01-09 17:10] LABS: BASOPHIL 0.5 % (0-2.0); EOSINOPHIL 1.2 % (0-4.5); MCH 26.9 pg (25.7-33.7); MCHC 31.3 g/dl (32.0-35.9); MEAN CELL VOLUME 86.1 fl (80-96); MEAN PLT VOLUME 7.8 fl (7.5-11.1); NEUTROPHILS 71.8 % (42.8-82.8); PLATELET COUNT 639 K/MM3 (134-434); RDW 14.8 % (11.9-15.9); WHITE BLOOD COUNT 16.8 K/mm3 (4.0-10.0)
[2017-01-09] MEDS ORDERED: CLOPIDOGREL BISULFATE 75 MG TABLET (FP) PO SCH (17:15)
[2017-01-09] MEDS ORDERED: CLOPIDOGREL BISULFATE 300 MG TABLET PO ONE (17:26)
[2017-01-09] MEDS ORDERED: HEPARIN INFUSION - 500 ML IVPB ONE (17:29)
--- NOTE | 2017-01-09 17:32 | RAPID ---
Physical Examination Vital Signs: Rapid response was called at 4:54pm in 218M/S-10 for tachycardia . The team reached there immediately. Found the patient to be lying on the bed, hyperventilating, trying to pull out the ventimask. BP was 130/101 mmHg, P-125 bpm regular, RR-26, Spo2-100 in non rebreather. Repeat vitals: BP: 186//105mm Hg; Pulse- Irregular, 120-140s, RR- 22, Spo2- 92 % @ 4 L of nasal canula (Patient refusing non rebreather) General: Elderly male, lying in bed, awake, alert, in respiratory distress, demented Neck: JVD + EOM: Intact, no pallor or icterus Chest: Use of accessory muscles, labored breathing, B/L equal air entry, b/l generalized crackles and occasional expiratory wheeze. CVS: Tachycardic, Irregularly irregular rate and rhythm, murmur difficult to appreciated Abd: soft, non tender, BS+ Ext: B/l trace pitting edema, gangrene on the left great toe. Stat EKG and ABG was ordered. EKG showed ST elevation in septal leads . Dr. Mann was at bed side who recommended IV Heparin drip, loading dose of aspirin and 75 mg Plavix and IV Lasix 40mg. Even after giving IV lasix 40mg once, he still was short of breath and had scattered crackles, JVD + with 200 cc of UOP .hence another IV Lasix 40mg was given. It responded and his shortness of breath improved. pt received total of 10 mg of lopressor which improved his BP and HR ---> 123/ 80, HR 110s # STEMI IV Heparin drip, loading dose of aspirin, plavix started EKG, Chest x-ray, CBC, CMP, Troponins ordered stat. Family doesn't want a cardiac cath (confirmed) follow trop # CHF exacerbation due to [place] Total of IV Lasix 80mg given # New onset atrial fibrillation-rate uncontrolled Rate controlled with Lopressor 10mg stat # Code Status: Full code. Dr. Lemos was notified. Dr. Mann at bed side Patients daughter Ms. Campbell ) was informed who is out of the country. Another daughter was informed who is on her way from [place]. D/W Dr. Portillo. Labs: CBC, BMP 01/09/17 17:00
[2017-01-09] MEDS ORDERED: CLOPIDOGREL BISULFATE 75 MG TABLET (FP) ONE (17:35)
[2017-01-09 17:37] LABS: ALBUMIN 2.3 g/dl (3.4-5.0); ALK PHOS 94 U/L (45-117); ANION GAP 15 (8-16); BILIRUBIN,TOTAL 0.3 mg/dL (0.2-1.0); CALCIUM 8.9 mg/dL (8.5-10.1); CO2 25 mmol/L (21-32); CREATININE 1.1 mg/dL (0.7-1.3); SGOT/AST 17 U/L (15-37); SGPT/ALT 26 U/L (12-78); TOT PROT 6.9 g/dl (6.4-8.2)
[2017-01-09 17:39] LABS: TROPONIN I 0.06 ng/ml (0.00-0.05)
[2017-01-09 17:42] LABS: GLUCOSE,RANDOM 359 mg/dL (74-106)
[2017-01-09] MEDS: AMOX TR/POT CLAV 875MG/125MG TABLETS (FP) PO SCH (18:08)
[2017-01-09] MEDS: HEPARIN - 25,000 UNIT in SODIUM CHLORIDE 495 ML IV SCH (18:33)
--- NOTE | 2017-01-09 18:40 | PN ---
Progress Note, Physician Chief Complaint: Pt was noted diaphoretic and tachypneic this afternoon, using accessory muscles to breath. Able to speak, though with difficulty. History of Present Illness: The patient is a 76 year old male (louisa Cabrera), [place] with a significant past medical history of Alzheimer's, HLD, NIDDM, HTN, who presents to the emergency department with lethargy and worsening mental status since yesterday. The patient is here with his daughter who reports the patient waking up feeling more lethargic today. The daughter notes that yesterday he was more "sluggish" when walking up the 3 flights of steps to his apartment and seemed SOB while walking up stairs. Daughter denies recent fevers, chills, cough or any recent expressions of pain or discomfort by the pt. Daughter denies any recent nausea, vomit, diarrhea or constipation. Daughter denies any recent cough. This HPI is limited due to the patients worsening dementia and obtained primarily from daugther.. Allergies: NKA Past surgical history: None reported. Social History: Nonsmoker. Denies EtOH use and recreational drug use. Primary Care Physician:Dr.James Sears - Current Medication List Current Medications: Active Medications Acetaminophen (Tylenol -) 650 mg PO Q6H PRN PRN Reason: FEVER OR PAIN Last Admin: 01/07/17 21:18 Dose: 650 mg Amoxicillin/Clavulanate Potassium (Augmentin - 875mg Tablet) 1 tab PO BID@0800, 1730 [facility] Last Admin: 01/09/17 18:08 Dose: 1 tab Aspirin (Asa -) 81 mg PO DAILY [facility] Last Admin: 01/09/17 09:40 Dose: 81 mg Clopidogrel Bisulfate (Plavix -) 75 mg PO DAILY [facility] Last Admin: 01/09/17 17:37 Dose: 75 mg Collagenase (Santyl -) 1 applic TP DAILY [facility] Last Admin: 01/09/17 09:45 Dose: 1 applic Haloperidol (Haldol Injection (Fast Acting) -) 5 mg IM Q4H PRN PRN Reason: AGITATION Last Admin: 01/09/17 16:15 Dose: 5 mg Heparin Sodium (Porcine) (Heparin -) 1,000 unit IVPUSH PRN PRN PRN Reason: Heparin Heparin Sodium (Porcine) (Heparin -) 5,000 unit IVPUSH PRN PRN PRN Reason: Heparin Heparin Sodium (Porcine) 25, (000 unit/ Sodium Chloride) 500 mls @ 16 mls/hr IV TITR [facility]UCY; 800 UNIT/HR PRN Reason: Protocol Last Admin: 01/09/17 18:33 Dose: 16 mls/hr Insulin Aspart (Novolog Vial Sliding Scale -) 1 vial SQ ACHS [facility] PRN Reason: Protocol Stop: 01/10/17 23:59 Lisinopril (Prinivil) 2.5 mg PO DAILY [facility] Last Admin: 01/09/17 09:39 Dose: 2.5 mg Memantine (Namenda -) 10 mg PO BID [facility] Last Admin: 01/09/17 09:40 Dose: 10 mg Metformin HCl (Glucophage -) 500 mg PO BIDI [facility] Last Admin: 01/09/17 18:08 Dose: 500 mg Metoprolol Succinate (Toprol Xl -) 25 mg PO DAILY [facility] Last Admin: 01/09/17 09:40 Dose: 25 mg Quetiapine Fumarate (Seroquel -) 25 mg PO BID [facility] Last Admin: 01/09/17 09:39 Dose: 25 mg Spironolactone (Aldactone -) 25 mg PO DAILY [facility] Last Admin: 01/09/17 09:40 Dose: 25 mg Trazodone HCl (Desyrel -) 100 mg PO HS [facility] Last Admin: 01/08/17 21:47 Dose: 100 mg - Objective Vital Signs: Vital Signs Temperature 98.7 F 01/09/17 18:14 Pulse Rate 104 H 01/09/17 18:14 Respiratory Rate 20 01/09/17 18:14 Blood Pressure 102/53 01/09/17 18:14 O2 Sat by Pulse Oximetry (%) 96 01/09/17 10:00 Constitutional: Yes: Severe Distress Eyes: Yes: WNL Cardiovascular: Yes: Tachycardia, Pulse Irregular, S1 (varies in intensity), S2 (split) Respiratory: Yes: Diminished, Rales (bilater 1/[address] up) Gastrointestinal: Yes: Soft, Distention Genitourinary: No: Anuria Musculoskeletal: Yes: Muscle Weakness Edema: No Peripheral Pulses WNL: No Peripheral Pulses: Left Doralis Pedis: 1+, Right Dorsalis Pedis: 1+ Integumentary: Yes: WNL Neurological: Yes: Confusion Psychiatric: Yes: Other Labs: CBC, BMP 01/09/17 17:00 01/09/17 17:00 INR, PTT INR 1.35 (0.82-1.09) H 01/01/17 10:18 - ....Imaging Chest X-ray: Image Reviewed (CHF) EKG: Image Reviewed (sinus tachycardia) Problem List - Problems (1) ACS (acute coronary syndrome) Assessment/Plan: severely reduced LVEF, with significant and AR. Marked dementia. Conservative management (ie no coronary angiogram or further valvular workup) at present. Code(s): I24.9 - ACUTE ISCHEMIC HEART DISEASE, UNSPECIFIED (2) Dementia Assessment/Plan: progressively severe dementia. Code(s): F03.90 - UNSPECIFIED DEMENTIA WITHOUT BEHAVIORAL DISTURBANCE (3) Infection of left foot Code(s): L08.9 - LOCAL INFECTION OF THE SKIN AND SUBCUTANEOUS TISSUE, UNSP (4) Tachycardia Code(s): R00.0 - TACHYCARDIA, UNSPECIFIED (5) Diabetes Code(s): E11.9 - TYPE 2 DIABETES MELLITUS WITHOUT COMPLICATIONS (6) Acute on chronic systolic (congestive) heart failure Assessment/Plan: Acute episode of systolic heart failure today. On Ventimask; f/u ABG. Furosemide 40-80 mg IVP; f/u Is and Os; BUN/Cr, electrolytes, TNI. Sinus tachycardia; f/u HR after diuresis; if necessary, may use IV metoprolol, though cautiously during acute phase of volume overload. ASA, clopidogrel, and IV heparin until acute coronary syndrome is ruled out. Code(s): I50.23 - ACUTE ON CHRONIC SYSTOLIC (CONGESTIVE) HEART FAILURE
[2017-01-09] MEDS: traZODone HCL 100 MG TABLET (FP) PO SCH (22:00)
--- NOTE | 2017-01-09 23:22 | PN ---
Progress Note, Physician History of Present Illness: No new complaints - Current Medication List Current Medications: Active Medications Acetaminophen (Tylenol -) 650 mg PO Q6H PRN PRN Reason: FEVER OR PAIN Last Admin: 01/07/17 21:18 Dose: 650 mg Amoxicillin/Clavulanate Potassium (Augmentin - 875mg Tablet) 1 tab PO BID@0800, 1730 [facility] Last Admin: 01/09/17 18:08 Dose: 1 tab Aspirin (Asa -) 81 mg PO DAILY [facility] Last Admin: 01/09/17 09:40 Dose: 81 mg Clopidogrel Bisulfate (Plavix -) 75 mg PO DAILY [facility] Last Admin: 01/09/17 17:37 Dose: 75 mg Collagenase (Santyl -) 1 applic TP DAILY [facility] Last Admin: 01/09/17 09:45 Dose: 1 applic Haloperidol (Haldol Injection (Fast Acting) -) 5 mg IM Q4H PRN PRN Reason: AGITATION Last Admin: 01/09/17 16:15 Dose: 5 mg Heparin Sodium (Porcine) (Heparin -) 1,000 unit IVPUSH PRN PRN PRN Reason: Heparin Heparin Sodium (Porcine) (Heparin -) 5,000 unit IVPUSH PRN PRN PRN Reason: Heparin Heparin Sodium (Porcine) 25, (000 unit/ Sodium Chloride) 500 mls @ 16 mls/hr IV TITR [facility]UCY; 800 UNIT/HR PRN Reason: Protocol Last Admin: 01/09/17 18:33 Dose: 16 mls/hr Insulin Aspart (Novolog Vial Sliding Scale -) 1 vial SQ ACHS [facility] PRN Reason: Protocol Stop: 01/10/17 23:59 Lisinopril (Prinivil) 2.5 mg PO DAILY [facility] Last Admin: 01/09/17 09:39 Dose: 2.5 mg Memantine (Namenda -) 10 mg PO BID [facility] Last Admin: 01/09/17 09:40 Dose: 10 mg Metformin HCl (Glucophage -) 500 mg PO BIDI [facility] Last Admin: 01/09/17 18:08 Dose: 500 mg Metoprolol Succinate (Toprol Xl -) 25 mg PO DAILY [facility] Last Admin: 01/09/17 09:40 Dose: 25 mg Quetiapine Fumarate (Seroquel -) 25 mg PO BID [facility] Last Admin: 01/09/17 09:39 Dose: 25 mg Spironolactone (Aldactone -) 25 mg PO DAILY [facility] Last Admin: 01/09/17 09:40 Dose: 25 mg Trazodone HCl (Desyrel -) 100 mg PO [facility] Last Admin: 01/08/17 21:47 Dose: 100 mg - Objective Vital Signs: Vital Signs Temperature 98.7 F 01/09/17 18:14 Pulse Rate 104 H 01/09/17 18:14 Respiratory Rate 20 01/09/17 18:14 Blood Pressure 102/53 01/09/17 18:14 O2 Sat by Pulse Oximetry (%) 96 01/09/17 10:00 Constitutional: Yes: No Distress HENT: Yes: WNL Neck: Yes: WNL, Supple Cardiovascular: Yes: WNL, Regular Rate and Rhythm Respiratory: Yes: WNL, Regular, CTA Bilaterally Gastrointestinal: Yes: WNL, Normal Bowel Sounds, Soft Labs: CBC, BMP 01/09/17 17:00 01/09/17 17:00 INR, PTT INR 1.35 (0.82-1.09) H 01/01/17 10:18 Problem List - Problems (1) ACS (acute coronary syndrome) Code(s): I24.9 - ACUTE ISCHEMIC HEART DISEASE, UNSPECIFIED (2) Infection of left foot Code(s): L08.9 - LOCAL INFECTION OF THE SKIN AND SUBCUTANEOUS TISSUE, UNSP (3) Acute on chronic systolic (congestive) heart failure Code(s): I50.23 - ACUTE ON CHRONIC SYSTOLIC (CONGESTIVE) HEART FAILURE (4) HTN (hypertension) Code(s): I10 - ESSENTIAL (PRIMARY) HYPERTENSION (5) Dementia Code(s): F03.90 - UNSPECIFIED DEMENTIA WITHOUT BEHAVIORAL DISTURBANCE (6) CAD (coronary artery disease) Code(s): I25.10 - ATHSCL HEART DISEASE OF [place] CORONARY ARTERY W/O ANG PCTRS (7) Diabetes Code(s): E11.9 - TYPE 2 DIABETES MELLITUS WITHOUT COMPLICATIONS
[2017-01-10] MEDS: INSULIN SLIDING SCALE (NOVOLOG) 1 VIAL SQ SCH ×5 (00:09→21:28)
[2017-01-10 01:04] LABS: TROPONIN I 0.1 ng/ml (0.00-0.05)
[2017-01-10 06:33] LABS: BASOPHIL 0.4 % (0-2.0); EOSINOPHIL 0.6 % (0-4.5); MCHC 31.9 g/dl (32.0-35.9); MEAN CELL VOLUME 84.7 fl (80-96); MEAN PLT VOLUME 8.4 fl (7.5-11.1); NEUTROPHILS 80.3 % (42.8-82.8); PLATELET COUNT 519 K/MM3 (134-434); RDW 14.8 % (11.9-15.9); WHITE BLOOD COUNT 14.8 K/mm3 (4.0-10.0)
[2017-01-10 06:52] LABS: ALBUMIN 2.2 g/dl (3.4-5.0); ANION GAP 10 (8-16); BILIRUBIN,TOTAL 0.3 mg/dL (0.2-1.0); CALCIUM 8.4 mg/dL (8.5-10.1); CO2 28 mmol/L (21-32); CREATININE 0.8 mg/dL (0.7-1.3); GLUCOSE,RANDOM 194 mg/dL (74-106); SGOT/AST 10 U/L (15-37); SGPT/ALT 21 U/L (12-78); TOT PROT 6.4 g/dl (6.4-8.2)
[2017-01-10] MEDS: metFORMIN HCL 500 MG TABLET (FP) PO SCH ×2 (06:54→17:13)
[2017-01-10 06:55] LABS: ALK PHOS 80 U/L (45-117); TROPONIN I 0.09 ng/ml (0.00-0.05)
[2017-01-10] MEDS ORDERED: PT OWN MED DRAWER 7, Y5N ONE ×2 (08:58→21:13)
[2017-01-10] MEDS: CLOPIDOGREL BISULFATE 75 MG TABLET (FP) PO SCH (09:30)
[2017-01-10] MEDS: AMOX TR/POT CLAV 875MG/125MG TABLETS (FP) PO SCH ×2 (09:30→17:12)
[2017-01-10] MEDS: MEMANTINE HCL 10 MG TABLET (FP) PO SCH ×2 (09:30→21:15)
[2017-01-10] MEDS: ASPIRIN 81 MG CHEWABLE TABLETS PO SCH (09:30)
[2017-01-10] MEDS: METOPROLOL SUCCINATE 25 MG TAB.SR.24H (FP) PO SCH (09:30)
[2017-01-10] MEDS: LISINOPRIL 5 MG TABLET (FP) PO SCH (09:31)
[2017-01-10] MEDS: COLLAGENASE CLOSTRIDIUM HIST. 30 GRAMS TUBE TP SCH (09:31)
[2017-01-10] MEDS: QUEtiapine FUMARATE 25 MG TABLET (FP) PO SCH ×2 (09:32→21:15)
[2017-01-10] MEDS: SPIRONOLACTONE 25 MG TABLET (FP) PO SCH (09:33)
[2017-01-10] MEDS: HEPARIN NA (PORCINE) 5,000 UNITS/ML 1ML VIAL IVPUSH PRN (10:05)
--- NOTE | 2017-01-10 12:06 | PN ---
Progress Note, Physician History of Present Illness: pulmonary drowsy,-resp distress - Current Medication List Current Medications: Active Medications Acetaminophen (Tylenol -) 650 mg PO Q6H PRN PRN Reason: FEVER OR PAIN Last Admin: 01/07/17 21:18 Dose: 650 mg Amoxicillin/Clavulanate Potassium (Augmentin - 875mg Tablet) 1 tab PO BID@0800, 1730 [facility] Last Admin: 01/10/17 09:30 Dose: 1 tab Aspirin (Asa -) 81 mg PO DAILY [facility] Last Admin: 01/10/17 09:30 Dose: 81 mg Clopidogrel Bisulfate (Plavix -) 75 mg PO DAILY [facility] Last Admin: 01/10/17 09:30 Dose: 75 mg Collagenase (Santyl -) 1 applic TP DAILY [facility] Last Admin: 01/10/17 09:31 Dose: 1 applic Haloperidol (Haldol Injection (Fast Acting) -) 5 mg IM Q4H PRN PRN Reason: AGITATION Last Admin: 01/09/17 16:15 Dose: 5 mg Heparin Sodium (Porcine) (Heparin -) 1,000 unit IVPUSH PRN PRN PRN Reason: Heparin Last Admin: 01/10/17 10:05 Dose: 1,000 unit Heparin Sodium (Porcine) (Heparin -) 5,000 unit IVPUSH PRN PRN PRN Reason: Heparin Heparin Sodium (Porcine) 25, (000 unit/ Sodium Chloride) 500 mls @ 16 mls/hr IV TITR [facility]UCY; 800 UNIT/HR PRN Reason: Protocol Last Titration: 01/10/17 10:05 Dose: 1,050 unit/hr Insulin Aspart (Novolog Vial Sliding Scale -) 1 vial SQ ACHS [facility] PRN Reason: Protocol Stop: 01/10/17 23:59 Last Admin: 01/10/17 07:39 Dose: 4 units Lisinopril (Prinivil) 2.5 mg PO DAILY [facility] Last Admin: 01/10/17 09:31 Dose: Not Given Memantine (Namenda -) 10 mg PO BID [facility] Last Admin: 01/10/17 09:30 Dose: 10 mg Metformin HCl (Glucophage -) 500 mg PO BIDI [facility] Last Admin: 01/10/17 06:54 Dose: 500 mg Metoprolol Succinate (Toprol Xl -) 25 mg PO DAILY [facility] Last Admin: 01/10/17 09:30 Dose: 25 mg Quetiapine Fumarate (Seroquel -) 25 mg PO BID [facility] Last Admin: 01/10/17 09:32 Dose: Not Given Spironolactone (Aldactone -) 25 mg PO DAILY [facility] Last Admin: 01/10/17 09:33 Dose: Not Given Trazodone HCl (Desyrel -) 100 mg PO HS [facility] Last Admin: 01/09/17 22:00 Dose: Not Given - Objective Vital Signs: Vital Signs Temperature 98.7 F 01/10/17 06:00 Pulse Rate 97 H 01/10/17 06:00 Respiratory Rate 18 01/10/17 08:04 Blood Pressure 116/59 01/10/17 06:00 O2 Sat by Pulse Oximetry (%) 100 01/10/17 08:04 Constitutional: Yes: Well Nourished, Calm, Other (drowsy) Eyes: Yes: WNL HENT: Yes: WNL Neck: Yes: WNL Cardiovascular: Yes: Regular Rate and Rhythm, S1 Respiratory: Yes: Diminished (poor inspiratory effort) Gastrointestinal: Yes: Normal Bowel Sounds, Soft Extremities: Yes: WNL Edema: No Labs: CBC, BMP 01/10/17 05:15 01/10/17 05:15 INR, PTT INR 1.35 (0.82-1.09) H 01/01/17 10:18 - ....Imaging Chest X-ray: Report Reviewed, Image Reviewed (+ CONGESTION) Assessment/Plan A/P Acute NSTEMI/+Troponins Severe Aortic Stenosis Mitral Regurgitation Severe LV Systolic Dysfunction UTI Sepsis resolving Lactic Acidosis resolved Dementia - complete antibiotics - ASA, plavix - beta tamika - aldactone, GIO-I - aspiration precautions - O2 as needed - DVT prophylaxis DR BERGER
[2017-01-10] MEDS: HEPARIN - 25,000 UNIT in SODIUM CHLORIDE 495 ML IV SCH (17:14)
--- NOTE | 2017-01-10 17:21 | EKG ---
Test Reason : Blood Pressure : / mmHG Vent. Rate : 134 BPM Atrial Rate : 131 BPM P-R Int : 000 ms QRS Dur : 098 ms QT Int : 342 ms P-R-T Axes : 000 096 255 degrees QTc Int : 510 ms POOR DATA QUALITY, INTERPRETATION MAY BE ADVERSELY AFFECTED ATRIAL FIBRILLATION WITH RAPID VENTRICULAR RESPONSE SEPTAL INFARCT (CITED ON OR BEFORE 01-JAN-2017) LATERAL INFARCT , AGE UNDETERMINED ABNORMAL ECG WHEN COMPARED WITH ECG OF 01-JAN-2017 11:57, ATRIAL FIBRILLATION HAS REPLACED SINUS RHYTHM LATERAL INFARCT IS NOW PRESENT Confirmed by MD BECKY, CHRISTOS ([id number]) on 01/10/2017 5:21:02 PM Referred By: Confirmed By:CHRISTOS PENA MD
--- NOTE | 2017-01-10 18:46 | PN ---
Progress Note, Physician Chief Complaint: Pt no longer tachypneic or dyspneic; remains confused. History of Present Illness: The patient is a 76 year old male (louisa Cabrera), [place] with a significant past medical history of Alzheimer's, HLD, NIDDM, HTN, who presents to the emergency department with lethargy and worsening mental status since yesterday. The patient is here with his daughter who reports the patient waking up feeling more lethargic today. The daughter notes that yesterday he was more "sluggish" when walking up the 3 flights of steps to his apartment and seemed SOB while walking up stairs. Daughter denies recent fevers, chills, cough or any recent expressions of pain or discomfort by the pt. Daughter denies any recent nausea, vomit, diarrhea or constipation. Daughter denies any recent cough. This HPI is limited due to the patients worsening dementia and obtained primarily from daugther.. Allergies: NKA Past surgical history: None reported. Social History: Nonsmoker. Denies EtOH use and recreational drug use. Primary Care Physician:Dr.James Sears - Current Medication List Current Medications: Active Medications Acetaminophen (Tylenol -) 650 mg PO Q6H PRN PRN Reason: FEVER OR PAIN Last Admin: 01/07/17 21:18 Dose: 650 mg Amoxicillin/Clavulanate Potassium (Augmentin - 875mg Tablet) 1 tab PO BID@0800, 1730 [facility] Last Admin: 01/10/17 17:12 Dose: 1 tab Aspirin (Asa -) 81 mg PO DAILY [facility] Last Admin: 01/10/17 09:30 Dose: 81 mg Clopidogrel Bisulfate (Plavix -) 75 mg PO DAILY [facility] Last Admin: 01/10/17 09:30 Dose: 75 mg Collagenase (Santyl -) 1 applic TP DAILY [facility] Last Admin: 01/10/17 09:31 Dose: 1 applic Haloperidol (Haldol Injection (Fast Acting) -) 5 mg IM Q4H PRN PRN Reason: AGITATION Last Admin: 01/09/17 16:15 Dose: 5 mg Heparin Sodium (Porcine) (Heparin -) 1,000 unit IVPUSH PRN PRN PRN Reason: Heparin Last Admin: 01/10/17 10:05 Dose: 1,000 unit Heparin Sodium (Porcine) (Heparin -) 5,000 unit IVPUSH PRN PRN PRN Reason: Heparin Heparin Sodium (Porcine) 25, (000 unit/ Sodium Chloride) 500 mls @ 16 mls/hr IV TITR LUCY; 800 UNIT/HR PRN Reason: Protocol Last Admin: 01/10/17 17:14 Dose: 21 mls/hr Insulin Aspart (Novolog Vial Sliding Scale -) 1 vial SQ ACHS [facility] PRN Reason: Protocol Stop: 01/10/17 23:59 Last Admin: 01/10/17 17:14 Dose: 2 units Lisinopril (Prinivil) 2.5 mg PO DAILY [facility] Last Admin: 01/10/17 09:31 Dose: Not Given Memantine (Namenda -) 10 mg PO BID [facility] Last Admin: 01/10/17 09:30 Dose: 10 mg Metformin HCl (Glucophage -) 500 mg PO BIDI [facility] Last Admin: 01/10/17 17:13 Dose: 500 mg Metoprolol Succinate (Toprol Xl -) 25 mg PO DAILY [facility] Last Admin: 01/10/17 09:30 Dose: 25 mg Quetiapine Fumarate (Seroquel -) 25 mg PO BID [facility] Last Admin: 01/10/17 09:32 Dose: Not Given Spironolactone (Aldactone -) 25 mg PO DAILY [facility] Last Admin: 01/10/17 09:33 Dose: Not Given Trazodone HCl (Desyrel -) 100 mg PO HS [facility] Last Admin: 01/09/17 22:00 Dose: Not Given - Objective Vital Signs: Vital Signs Temperature 98.7 F 01/10/17 17:26 Pulse Rate 90 01/10/17 17:26 Respiratory Rate 18 01/10/17 17:26 Blood Pressure 122/59 01/10/17 17:26 O2 Sat by Pulse Oximetry (%) 98 01/10/17 17:10 Constitutional: Yes: Calm, Thin Eyes: Yes: WNL HENT: Yes: WNL Neck: Yes: WNL Cardiovascular: Yes: Regular Rate and Rhythm, S1, S2 (split) Respiratory: Yes: Regular Gastrointestinal: Yes: Soft Genitourinary: No: Anuria Musculoskeletal: Yes: Muscle Weakness Extremities: Yes: Cool Edema: No Peripheral Pulses WNL: No Peripheral Pulses: Left Doralis Pedis: 1+, Right Dorsalis Pedis: 1+ Integumentary: Yes: Other (LE gangrene) Neurological: Yes: Confusion, Weakness Psychiatric: Yes: Other Labs: CBC, BMP 01/10/17 05:15 01/10/17 05:15 INR, PTT INR 1.35 (0.82-1.09) H 01/01/17 10:18 Abnormal Lab Results 01/09/17 01/09/17 01/10/17 21:45 23:50 05:15 WBC RBC Hgb Hct MCHC Plt Count PTT (Actin FS) Random Glucose 194 H D Lactic Acid 3.0 H* Calcium 8.4 L AST 10 L D Troponin I 0.10 H D 0.09 H Albumin 2.2 L 01/10/17 01/10/17 05:15 05:15 WBC 14.8 H RBC 3.35 L Hgb 9.0 L D Hct 28.4 L MCHC 31.9 L Plt Count 519 H PTT (Actin FS) 43.5 H Random Glucose Lactic Acid Calcium AST Troponin I Albumin - ....Imaging Other: Image Reviewed (telemetry: NSR) Problem List - Problems (1) ACS (acute coronary syndrome) Assessment/Plan: severely reduced LVEF, with significant and AR. Marked dementia. Coninue present medications. Conservative management (ie no coronary angiogram or further valvular workup) at present. Code(s): I24.9 - ACUTE ISCHEMIC HEART DISEASE, UNSPECIFIED (2) Dementia Assessment/Plan: progressively severe dementia. Code(s): F03.90 - UNSPECIFIED DEMENTIA WITHOUT BEHAVIORAL DISTURBANCE (3) Diabetes Code(s): E11.9 - TYPE 2 DIABETES MELLITUS WITHOUT COMPLICATIONS (4) Acute on chronic systolic (congestive) heart failure Assessment/Plan: Acute episode of systolic heart failure yesterday; resolved. Furosemide 40 mg IVP; f/u Is and Os; BUN/Cr, electrolytes, TNI. Continue metoprolol, lisinopril, and spironolactone. ASA 81 mg daily. Code(s): I50.23 - ACUTE ON CHRONIC SYSTOLIC (CONGESTIVE) HEART FAILURE
--- NOTE | 2017-01-10 19:52 | PN ---
Progress Note, Physician History of Present Illness: No new complaints - Current Medication List Current Medications: Active Medications Acetaminophen (Tylenol -) 650 mg PO Q6H PRN PRN Reason: FEVER OR PAIN Last Admin: 01/07/17 21:18 Dose: 650 mg Amoxicillin/Clavulanate Potassium (Augmentin - 875mg Tablet) 1 tab PO BID@0800, 1730 [facility] Last Admin: 01/10/17 17:12 Dose: 1 tab Aspirin (Asa -) 81 mg PO DAILY [facility] Last Admin: 01/10/17 09:30 Dose: 81 mg Clopidogrel Bisulfate (Plavix -) 75 mg PO DAILY [facility] Last Admin: 01/10/17 09:30 Dose: 75 mg Collagenase (Santyl -) 1 applic TP DAILY [facility] Last Admin: 01/10/17 09:31 Dose: 1 applic Haloperidol (Haldol Injection (Fast Acting) -) 5 mg IM Q4H PRN PRN Reason: AGITATION Last Admin: 01/09/17 16:15 Dose: 5 mg Heparin Sodium (Porcine) (Heparin -) 1,000 unit IVPUSH PRN PRN PRN Reason: Heparin Last Admin: 01/10/17 10:05 Dose: 1,000 unit Heparin Sodium (Porcine) (Heparin -) 5,000 unit IVPUSH PRN PRN PRN Reason: Heparin Heparin Sodium (Porcine) 25, (000 unit/ Sodium Chloride) 500 mls @ 16 mls/hr IV TITR LUCY; 800 UNIT/HR PRN Reason: Protocol Last Admin: 01/10/17 17:14 Dose: 21 mls/hr Insulin Aspart (Novolog Vial Sliding Scale -) 1 vial SQ ACHS [facility] PRN Reason: Protocol Stop: 01/10/17 23:59 Last Admin: 01/10/17 17:14 Dose: 2 units Lisinopril (Prinivil) 2.5 mg PO DAILY [facility] Last Admin: 01/10/17 09:31 Dose: Not Given Memantine (Namenda -) 10 mg PO BID [facility] Last Admin: 01/10/17 09:30 Dose: 10 mg Metformin HCl (Glucophage -) 500 mg PO BIDI [facility] Last Admin: 01/10/17 17:13 Dose: 500 mg Metoprolol Succinate (Toprol Xl -) 25 mg PO DAILY [facility] Last Admin: 01/10/17 09:30 Dose: 25 mg Quetiapine Fumarate (Seroquel -) 25 mg PO BID [facility] Last Admin: 01/10/17 09:32 Dose: Not Given Spironolactone (Aldactone -) 25 mg PO DAILY [facility] Last Admin: 01/10/17 09:33 Dose: Not Given Trazodone HCl (Desyrel -) 100 mg PO HS [facility] Last Admin: 01/09/17 22:00 Dose: Not Given - Objective Vital Signs: Vital Signs Temperature 98.7 F 01/10/17 17:26 Pulse Rate 90 01/10/17 17:26 Respiratory Rate 18 01/10/17 17:26 Blood Pressure 122/59 01/10/17 17:26 O2 Sat by Pulse Oximetry (%) 98 01/10/17 17:10 Constitutional: Yes: No Distress Eyes: Yes: WNL HENT: Yes: WNL Neck: Yes: WNL, Supple Cardiovascular: Yes: WNL, Regular Rate and Rhythm Respiratory: Yes: WNL, Regular, CTA Bilaterally Gastrointestinal: Yes: WNL, Normal Bowel Sounds, Soft Labs: CBC, BMP 01/10/17 05:15 01/10/17 05:15 INR, PTT INR 1.35 (0.82-1.09) H 01/01/17 10:18 Problem List - Problems (1) ACS (acute coronary syndrome) Code(s): I24.9 - ACUTE ISCHEMIC HEART DISEASE, UNSPECIFIED (2) Infection of left foot Code(s): L08.9 - LOCAL INFECTION OF THE SKIN AND SUBCUTANEOUS TISSUE, UNSP (3) Acute on chronic systolic (congestive) heart failure Code(s): I50.23 - ACUTE ON CHRONIC SYSTOLIC (CONGESTIVE) HEART FAILURE (4) HTN (hypertension) Code(s): I10 - ESSENTIAL (PRIMARY) HYPERTENSION (5) Dementia Code(s): F03.90 - UNSPECIFIED DEMENTIA WITHOUT BEHAVIORAL DISTURBANCE (6) CAD (coronary artery disease) Code(s): I25.10 - ATHSCL HEART DISEASE OF [place] CORONARY ARTERY W/O ANG PCTRS (7) Diabetes Code(s): E11.9 - TYPE 2 DIABETES MELLITUS WITHOUT COMPLICATIONS
[2017-01-10] MEDS: traZODone HCL 100 MG TABLET (FP) PO SCH (21:15)
[2017-01-11 06:35] LABS: MCH 27.3 pg (25.7-33.7); MEAN CELL VOLUME 85.3 fl (80-96); MEAN PLT VOLUME 8.4 fl (7.5-11.1); PLATELET COUNT 507 K/MM3 (134-434); RDW 14.8 % (11.9-15.9); WHITE BLOOD COUNT 13.3 K/mm3 (4.0-10.0)
[2017-01-11] MEDS: metFORMIN HCL 500 MG TABLET (FP) PO SCH ×2 (06:47→17:53)
[2017-01-11] MEDS: MEMANTINE HCL 10 MG TABLET (FP) PO SCH ×2 (09:41→21:05)
[2017-01-11] MEDS: ASPIRIN 81 MG CHEWABLE TABLETS PO SCH (09:41)
[2017-01-11] MEDS: AMOX TR/POT CLAV 875MG/125MG TABLETS (FP) PO SCH ×2 (09:41→17:49)
[2017-01-11] MEDS: SPIRONOLACTONE 25 MG TABLET (FP) PO SCH (09:41)
[2017-01-11] MEDS: LISINOPRIL 5 MG TABLET (FP) PO SCH (09:42)
[2017-01-11] MEDS: CLOPIDOGREL BISULFATE 75 MG TABLET (FP) PO SCH (09:42)
[2017-01-11] MEDS: QUEtiapine FUMARATE 25 MG TABLET (FP) PO SCH ×2 (09:42→21:05)
[2017-01-11] MEDS: METOPROLOL SUCCINATE 25 MG TAB.SR.24H (FP) PO SCH (09:42)
[2017-01-11] MEDS: COLLAGENASE CLOSTRIDIUM HIST. 30 GRAMS TUBE TP SCH (09:43)
--- NOTE | 2017-01-11 10:47 | PN ---
Progress Note, Physician History of Present Illness: The patient is a 76 year old male, [place] with a significant past medical history of Alzheimer's, HLD, NIDDM, HTN, who presents to the emergency department with lethargy and worsening mental status since yesterday. The patient is here with his daughter who reports the patient waking up feeling more lethargic today. The daughter notes that yesterday he was more "sluggish" when walking up the 3 flights of steps to his apartment and seemed SOB while walking up stairs. Daughter denies recent fevers, chills, cough or any recent expressions of pain or discomfort by the pt. Daughter denies any recent nausea, vomit, diarrhea or constipation. Daughter denies any recent cough. This HPI is limited due to the patients worsening dementia and obtained primarily from joannather.. Allergies: NKA Past surgical history: None reported. Social History: Nonsmoker. Denies EtOH use and recreational drug use. Primary Care Physician:Dr.James Sears - Current Medication List Current Medications: Active Medications Acetaminophen (Tylenol -) 650 mg PO Q6H PRN PRN Reason: FEVER OR PAIN Last Admin: 01/07/17 21:18 Dose: 650 mg Amoxicillin/Clavulanate Potassium (Augmentin - 875mg Tablet) 1 tab PO BID@0800, 1730 [facility] Last Admin: 01/11/17 09:41 Dose: 1 tab Aspirin (Asa -) 81 mg PO DAILY [facility] Last Admin: 01/11/17 09:41 Dose: 81 mg Clopidogrel Bisulfate (Plavix -) 75 mg PO DAILY [facility] Last Admin: 01/11/17 09:42 Dose: 75 mg Collagenase (Santyl -) 1 applic TP DAILY [facility] Last Admin: 01/11/17 09:43 Dose: 1 applic Haloperidol (Haldol Injection (Fast Acting) -) 5 mg IM Q4H PRN PRN Reason: AGITATION Last Admin: 01/09/17 16:15 Dose: 5 mg Heparin Sodium (Porcine) (Heparin -) 1,000 unit IVPUSH PRN PRN PRN Reason: Heparin Last Admin: 01/10/17 10:05 Dose: 1,000 unit Heparin Sodium (Porcine) (Heparin -) 5,000 unit IVPUSH PRN PRN PRN Reason: Heparin Last Admin: 01/10/17 21:15 Dose: 5,000 unit Heparin Sodium (Porcine) 25, (000 unit/ Sodium Chloride) 500 mls @ 16 mls/hr IV TITR [facility]; 800 UNIT/HR PRN Reason: Protocol Last Admin: 01/10/17 17:14 Dose: 21 mls/hr Lisinopril (Prinivil) 2.5 mg PO DAILY [facility] Last Admin: 01/11/17 09:42 Dose: 2.5 mg Memantine (Namenda -) 10 mg PO BID [facility] Last Admin: 01/11/17 09:41 Dose: 10 mg Metformin HCl (Glucophage -) 500 mg PO BIDI [facility] Last Admin: 01/11/17 06:47 Dose: 500 mg Metoprolol Succinate (Toprol Xl -) 25 mg PO DAILY [facility] Last Admin: 01/11/17 09:42 Dose: 25 mg Quetiapine Fumarate (Seroquel -) 25 mg PO BID [facility] Last Admin: 01/11/17 09:42 Dose: 25 mg Spironolactone (Aldactone -) 25 mg PO DAILY [facility] Last Admin: 01/11/17 09:41 Dose: 25 mg Trazodone HCl (Desyrel -) 100 mg PO HS [facility] Last Admin: 01/10/17 21:15 Dose: 100 mg - Objective Vital Signs: Vital Signs Temperature 98 F 01/11/17 06:00 Pulse Rate 74 01/11/17 06:00 Respiratory Rate 16 01/11/17 06:00 Blood Pressure 104/52 01/11/17 06:00 O2 Sat by Pulse Oximetry (%) 98 01/11/17 09:00 Eyes: Yes: WNL, Conjunctiva Clear, EOM Intact HENT: Yes: WNL, Atraumatic, Normocephalic Neck: Yes: WNL, Supple, Trachea Midline Cardiovascular: Yes: WNL, Regular Rate and Rhythm Respiratory: Yes: WNL, Regular, CTA Bilaterally Gastrointestinal: Yes: WNL, Normal Bowel Sounds Genitourinary: Yes: WNL Musculoskeletal: Yes: WNL Extremities: Yes: WNL, Other (gangrene) Edema: No Integumentary: Yes: WNL Neurological: Yes: Lethargy ...Motor Strength: WNL Psychiatric: Yes: WNL Labs: CBC, BMP 01/11/17 05:20 01/10/17 05:15 INR, PTT INR 1.35 (0.82-1.09) H 01/01/17 10:18 Problem List - Problems (1) CAD (coronary artery disease) Code(s): I25.10 - ATHSCL HEART DISEASE OF [place] CORONARY ARTERY W/O ANG PCTRS (2) Dementia Code(s): F03.90 - UNSPECIFIED DEMENTIA WITHOUT BEHAVIORAL DISTURBANCE (3) Infection of left foot Code(s): L08.9 - LOCAL INFECTION OF THE SKIN AND SUBCUTANEOUS TISSUE, UNSP (4) Open wound of left foot Code(s): S91.302A - UNSPECIFIED OPEN WOUND, LEFT FOOT, INITIAL ENCOUNTER Qualifiers: Qualified Code(s): S91.302S - Unspecified open wound, left foot, sequela (5) Positive cardiac stress test Code(s): R94.39 - ABNORMAL RESULT OF OTHER CARDIOVASCULAR FUNCTION STUDY (6) Tachycardia Code(s): R00.0 - TACHYCARDIA, UNSPECIFIED (7) Diabetes Code(s): E11.9 - TYPE 2 DIABETES MELLITUS WITHOUT COMPLICATIONS (8) HTN (hypertension) Code(s): I10 - ESSENTIAL (PRIMARY) HYPERTENSION (9) Normocytic anemia Code(s): D64.9 - ANEMIA, UNSPECIFIED Assessment/Plan - Problems (1) ACS (acute coronary syndrome) Assessment/Plan: severely reduced LVEF, with significant and AR. Marked dementia. Coninue present medications. Conservative management (ie no coronary angiogram or further valvular workup) at present. Code(s): I24.9 - ACUTE ISCHEMIC HEART DISEASE, UNSPECIFIED (2) Dementia Assessment/Plan: progressively severe dementia. Code(s): F03.90 - UNSPECIFIED DEMENTIA WITHOUT BEHAVIORAL DISTURBANCE (3) Diabetes Code(s): E11.9 - TYPE 2 DIABETES MELLITUS WITHOUT COMPLICATIONS (4) Acute on chronic systolic (congestive) heart failure Assessment/Plan: Acute episode of systolic heart failure yesterday; resolved. Furosemide 40 mg IVP; f/u Is and Os; BUN/Cr, electrolytes, TNI. Continue metoprolol, lisinopril, and spironolactone. ASA 81 mg daily. d/c telemetry Code(s): I50.23 - ACUTE ON CHRONIC SYSTOLIC (CONGESTIVE) HEART FAILURE
[2017-01-11] MEDS: HEPARIN - 25,000 UNIT in SODIUM CHLORIDE 495 ML IV SCH (17:51)
--- NOTE | 2017-01-11 19:48 | PN ---
Progress Note, Physician History of Present Illness: No new complaints - Current Medication List Current Medications: Active Medications Acetaminophen (Tylenol -) 650 mg PO Q6H PRN PRN Reason: FEVER OR PAIN Last Admin: 01/07/17 21:18 Dose: 650 mg Amoxicillin/Clavulanate Potassium (Augmentin - 875mg Tablet) 1 tab PO BID@0800, 1730 [facility] Last Admin: 01/11/17 17:49 Dose: 1 tab Aspirin (Asa -) 81 mg PO DAILY [facility] Last Admin: 01/11/17 09:41 Dose: 81 mg Clopidogrel Bisulfate (Plavix -) 75 mg PO DAILY [facility] Last Admin: 01/11/17 09:42 Dose: 75 mg Collagenase (Santyl -) 1 applic TP DAILY [facility] Last Admin: 01/11/17 09:43 Dose: 1 applic Haloperidol (Haldol Injection (Fast Acting) -) 5 mg IM Q4H PRN PRN Reason: AGITATION Last Admin: 01/09/17 16:15 Dose: 5 mg Heparin Sodium (Porcine) (Heparin -) 1,000 unit IVPUSH PRN PRN PRN Reason: Heparin Last Admin: 01/10/17 10:05 Dose: 1,000 unit Heparin Sodium (Porcine) (Heparin -) 5,000 unit IVPUSH PRN PRN PRN Reason: Heparin Last Admin: 01/10/17 21:15 Dose: 5,000 unit Heparin Sodium (Porcine) 25, (000 unit/ Sodium Chloride) 500 mls @ 16 mls/hr IV TITR [facility]; 800 UNIT/HR PRN Reason: Protocol Last Admin: 01/11/17 17:51 Dose: Not Given Lisinopril (Prinivil) 2.5 mg PO DAILY [facility] Last Admin: 01/11/17 09:42 Dose: 2.5 mg Memantine (Namenda -) 10 mg PO BID [facility] Last Admin: 01/11/17 09:41 Dose: 10 mg Metformin HCl (Glucophage -) 500 mg PO BIDI [facility] Last Admin: 01/11/17 17:53 Dose: 500 mg Metoprolol Succinate (Toprol Xl -) 25 mg PO DAILY [facility] Last Admin: 01/11/17 09:42 Dose: 25 mg Quetiapine Fumarate (Seroquel -) 25 mg PO BID [facility] Last Admin: 01/11/17 09:42 Dose: 25 mg Spironolactone (Aldactone -) 25 mg PO DAILY [facility] Last Admin: 01/11/17 09:41 Dose: 25 mg Trazodone HCl (Desyrel -) 100 mg PO [facility] Last Admin: 01/10/17 21:15 Dose: 100 mg - Objective Vital Signs: Vital Signs Temperature 98.5 F 01/11/17 18:17 Pulse Rate 70 01/11/17 18:17 Respiratory Rate 19 01/11/17 18:17 Blood Pressure 114/55 01/11/17 18:17 O2 Sat by Pulse Oximetry (%) 97 01/11/17 11:15 Constitutional: Yes: No Distress Eyes: Yes: WNL HENT: Yes: WNL Neck: Yes: WNL, Supple Cardiovascular: Yes: WNL, Regular Rate and Rhythm Respiratory: Yes: WNL, Regular, CTA Bilaterally Gastrointestinal: Yes: WNL, Normal Bowel Sounds, Soft Labs: CBC, BMP 01/11/17 05:20 01/10/17 05:15 INR, PTT INR 1.35 (0.82-1.09) H 01/01/17 10:18 Problem List - Problems (1) ACS (acute coronary syndrome) Code(s): I24.9 - ACUTE ISCHEMIC HEART DISEASE, UNSPECIFIED (2) Infection of left foot Code(s): L08.9 - LOCAL INFECTION OF THE SKIN AND SUBCUTANEOUS TISSUE, UNSP (3) Acute on chronic systolic (congestive) heart failure Code(s): I50.23 - ACUTE ON CHRONIC SYSTOLIC (CONGESTIVE) HEART FAILURE (4) HTN (hypertension) Code(s): I10 - ESSENTIAL (PRIMARY) HYPERTENSION (5) Dementia Code(s): F03.90 - UNSPECIFIED DEMENTIA WITHOUT BEHAVIORAL DISTURBANCE (6) CAD (coronary artery disease) Code(s): I25.10 - ATHSCL HEART DISEASE OF [place] CORONARY ARTERY W/O ANG PCTRS (7) Diabetes Code(s): E11.9 - TYPE 2 DIABETES MELLITUS WITHOUT COMPLICATIONS
[2017-01-11] MEDS ORDERED: PT OWN MED DRAWER 7, Y5N ONE (22:39)
[2017-01-11] MEDS: traZODone HCL 100 MG TABLET (FP) PO SCH (23:17)
[2017-01-12 06:20] LABS: MCH 26.8 pg (25.7-33.7); MCHC 31.5 g/dl (32.0-35.9); MEAN CELL VOLUME 85.1 fl (80-96); MEAN PLT VOLUME 8.6 fl (7.5-11.1); PLATELET COUNT 458 K/MM3 (134-434); WHITE BLOOD COUNT 11.9 K/mm3 (4.0-10.0)
[2017-01-12] MEDS: metFORMIN HCL 500 MG TABLET (FP) PO SCH ×2 (06:28→17:52)
[2017-01-12] MEDS ORDERED: PT OWN MED DRAWER 7, Y5N ONE (06:31)
[2017-01-12] MEDS: SPIRONOLACTONE 25 MG TABLET (FP) PO SCH (09:41)
[2017-01-12] MEDS: AMOX TR/POT CLAV 875MG/125MG TABLETS (FP) PO SCH ×2 (09:41→17:52)
[2017-01-12] MEDS: METOPROLOL SUCCINATE 25 MG TAB.SR.24H (FP) PO SCH (09:41)
[2017-01-12] MEDS: QUEtiapine FUMARATE 25 MG TABLET (FP) PO SCH ×2 (09:41→21:05)
[2017-01-12] MEDS: CLOPIDOGREL BISULFATE 75 MG TABLET (FP) PO SCH (09:41)
[2017-01-12] MEDS: ASPIRIN 81 MG CHEWABLE TABLETS PO SCH (09:41)
[2017-01-12] MEDS: LISINOPRIL 5 MG TABLET (FP) PO SCH (09:41)
[2017-01-12] MEDS: MEMANTINE HCL 10 MG TABLET (FP) PO SCH ×2 (09:41→21:04)
[2017-01-12] MEDS: COLLAGENASE CLOSTRIDIUM HIST. 30 GRAMS TUBE TP SCH (09:42)
--- NOTE | 2017-01-12 11:03 | PN ---
Progress Note, Physician History of Present Illness: The patient is a 76 year old male, [place] with a significant past medical history of Alzheimer's, HLD, NIDDM, HTN, who presents to the emergency department with lethargy and worsening mental status since yesterday. The patient is here with his daughter who reports the patient waking up feeling more lethargic today. The daughter notes that yesterday he was more "sluggish" when walking up the 3 flights of steps to his apartment and seemed SOB while walking up stairs. Daughter denies recent fevers, chills, cough or any recent expressions of pain or discomfort by the pt. Daughter denies any recent nausea, vomit, diarrhea or constipation. Daughter denies any recent cough. This HPI is limited due to the patients worsening dementia and obtained primarily from [facility].. Allergies: NKA Past surgical history: None reported. Social History: Nonsmoker. Denies EtOH use and recreational drug use. Primary Care Physician:Dr.James Sears - Current Medication List Current Medications: Active Medications Acetaminophen (Tylenol -) 650 mg PO Q6H PRN PRN Reason: FEVER OR PAIN Last Admin: 01/07/17 21:18 Dose: 650 mg Amoxicillin/Clavulanate Potassium (Augmentin - 875mg Tablet) 1 tab PO BID@0800, 1730 [facility] Last Admin: 01/12/17 09:41 Dose: 1 tab Aspirin (Asa -) 81 mg PO DAILY [facility] Last Admin: 01/12/17 09:41 Dose: 81 mg Clopidogrel Bisulfate (Plavix -) 75 mg PO DAILY [facility] Last Admin: 01/12/17 09:41 Dose: 75 mg Collagenase (Santyl -) 1 applic TP DAILY [facility] Last Admin: 01/12/17 09:42 Dose: 1 applic Haloperidol (Haldol Injection (Fast Acting) -) 5 mg IM Q4H PRN PRN Reason: AGITATION Last Admin: 01/09/17 16:15 Dose: 5 mg Heparin Sodium (Porcine) (Heparin -) 1,000 unit IVPUSH PRN PRN PRN Reason: Heparin Last Admin: 01/10/17 10:05 Dose: 1,000 unit Heparin Sodium (Porcine) (Heparin -) 5,000 unit IVPUSH PRN PRN PRN Reason: Heparin Last Admin: 01/10/17 21:15 Dose: 5,000 unit Heparin Sodium (Porcine) 25, (000 unit/ Sodium Chloride) 500 mls @ 16 mls/hr IV TITR [facility]; 800 UNIT/HR PRN Reason: Protocol Last Titration: 01/12/17 09:43 Dose: 1,400 unit/hr Lisinopril (Prinivil) 2.5 mg PO DAILY [facility] Last Admin: 01/12/17 09:41 Dose: 2.5 mg Memantine (Namenda -) 10 mg PO BID [facility] Last Admin: 01/12/17 09:41 Dose: 10 mg Metformin HCl (Glucophage -) 500 mg PO BIDI [facility] Last Admin: 01/12/17 06:28 Dose: 500 mg Metoprolol Succinate (Toprol Xl -) 25 mg PO DAILY [facility] Last Admin: 01/12/17 09:41 Dose: 25 mg Quetiapine Fumarate (Seroquel -) 25 mg PO BID [facility] Last Admin: 01/12/17 09:41 Dose: 25 mg Spironolactone (Aldactone -) 25 mg PO DAILY [facility] Last Admin: 01/12/17 09:41 Dose: 25 mg Trazodone HCl (Desyrel -) 100 mg PO HS [facility] Last Admin: 01/11/17 23:17 Dose: 100 mg - Objective Vital Signs: Vital Signs Temperature 98.6 F 01/12/17 05:54 Pulse Rate 97 H 01/12/17 10:24 Respiratory Rate 20 01/12/17 10:00 Blood Pressure 106/57 01/12/17 10:00 O2 Sat by Pulse Oximetry (%) 94 L 01/12/17 10:24 Eyes: Yes: WNL, Conjunctiva Clear, EOM Intact HENT: Yes: WNL, Atraumatic, Normocephalic Neck: Yes: WNL, Supple, Trachea Midline Cardiovascular: Yes: WNL, Regular Rate and Rhythm Respiratory: Yes: WNL, Regular, CTA Bilaterally Gastrointestinal: Yes: WNL, Normal Bowel Sounds Genitourinary: Yes: WNL Musculoskeletal: Yes: WNL Extremities: Yes: WNL Edema: No Integumentary: Yes: WNL Neurological: Yes: WNL, Alert, Oriented ...Motor Strength: WNL Psychiatric: Yes: WNL Labs: CBC, BMP 01/12/17 05:25 01/10/17 05:15 INR, PTT INR 1.35 (0.82-1.09) H 01/01/17 10:18 Problem List - Problems (1) CAD (coronary artery disease) Code(s): I25.10 - ATHSCL HEART DISEASE OF [place] CORONARY ARTERY W/O ANG PCTRS (2) Dementia Code(s): F03.90 - UNSPECIFIED DEMENTIA WITHOUT BEHAVIORAL DISTURBANCE (3) Infection of left foot Code(s): L08.9 - LOCAL INFECTION OF THE SKIN AND SUBCUTANEOUS TISSUE, UNSP (4) Open wound of left foot Code(s): S91.302A - UNSPECIFIED OPEN WOUND, LEFT FOOT, INITIAL ENCOUNTER Qualifiers: Qualified Code(s): S91.302S - Unspecified open wound, left foot, sequela (5) Positive cardiac stress test Code(s): R94.39 - ABNORMAL RESULT OF OTHER CARDIOVASCULAR FUNCTION STUDY (6) Tachycardia Code(s): R00.0 - TACHYCARDIA, UNSPECIFIED (7) Diabetes Code(s): E11.9 - TYPE 2 DIABETES MELLITUS WITHOUT COMPLICATIONS (8) HTN (hypertension) Code(s): I10 - ESSENTIAL (PRIMARY) HYPERTENSION (9) Normocytic anemia Code(s): D64.9 - ANEMIA, UNSPECIFIED Assessment/Plan - Problems (1) ACS (acute coronary syndrome) Assessment/Plan: severely reduced LVEF, with significant and AR. Marked dementia. Coninue present medications. Conservative management (ie no coronary angiogram or further valvular workup) at present. Code(s): I24.9 - ACUTE ISCHEMIC HEART DISEASE, UNSPECIFIED (2) Dementia Assessment/Plan: progressively severe dementia. Code(s): F03.90 - UNSPECIFIED DEMENTIA WITHOUT BEHAVIORAL DISTURBANCE (3) Diabetes Code(s): E11.9 - TYPE 2 DIABETES MELLITUS WITHOUT COMPLICATIONS (4) Acute on chronic systolic (congestive) heart failure Assessment/Plan: Acute episode of systolic heart failure yesterday; resolved. Furosemide 40 mg IVP; f/u Is and Os; BUN/Cr, electrolytes, TNI. Continue metoprolol, lisinopril, and spironolactone. ASA 81 mg daily. d/c telemetry Code(s): I50.23 - ACUTE ON CHRONIC SYSTOLIC (CONGESTIVE) HEART FAILURE
[2017-01-12] MEDS: HEPARIN - 25,000 UNIT in SODIUM CHLORIDE 495 ML IV SCH (17:00)
[2017-01-12] MEDS: traZODone HCL 100 MG TABLET (FP) PO SCH (21:03)
--- NOTE | 2017-01-12 21:03 | PN ---
Progress Note, Physician History of Present Illness: No new complaints - Current Medication List Current Medications: Active Medications Acetaminophen (Tylenol -) 650 mg PO Q6H PRN PRN Reason: FEVER OR PAIN Last Admin: 01/07/17 21:18 Dose: 650 mg Amoxicillin/Clavulanate Potassium (Augmentin - 875mg Tablet) 1 tab PO BID@0800, 1730 [facility] Last Admin: 01/12/17 17:52 Dose: 1 tab Aspirin (Asa -) 81 mg PO DAILY [facility] Last Admin: 01/12/17 09:41 Dose: 81 mg Clopidogrel Bisulfate (Plavix -) 75 mg PO DAILY [facility] Last Admin: 01/12/17 09:41 Dose: 75 mg Collagenase (Santyl -) 1 applic TP DAILY [facility] Last Admin: 01/12/17 09:42 Dose: 1 applic Haloperidol (Haldol Injection (Fast Acting) -) 5 mg IM Q4H PRN PRN Reason: AGITATION Last Admin: 01/09/17 16:15 Dose: 5 mg Heparin Sodium (Porcine) (Heparin -) 1,000 unit IVPUSH PRN PRN PRN Reason: Heparin Last Admin: 01/10/17 10:05 Dose: 1,000 unit Heparin Sodium (Porcine) (Heparin -) 5,000 unit IVPUSH PRN PRN PRN Reason: Heparin Last Admin: 01/10/17 21:15 Dose: 5,000 unit Heparin Sodium (Porcine) 25, (000 unit/ Sodium Chloride) 500 mls @ 16 mls/hr IV TITR [facility]; 800 UNIT/HR PRN Reason: Protocol Last Admin: 01/12/17 17:00 Dose: 30 mls/hr Lisinopril (Prinivil) 2.5 mg PO DAILY [facility] Last Admin: 01/12/17 09:41 Dose: 2.5 mg Memantine (Namenda -) 10 mg PO BID [facility] Last Admin: 01/12/17 09:41 Dose: 10 mg Metformin HCl (Glucophage -) 500 mg PO BIDI [facility] Last Admin: 01/12/17 17:52 Dose: 500 mg Metoprolol Succinate (Toprol Xl -) 25 mg PO DAILY [facility] Last Admin: 01/12/17 09:41 Dose: 25 mg Quetiapine Fumarate (Seroquel -) 25 mg PO BID [facility] Last Admin: 01/12/17 09:41 Dose: 25 mg Spironolactone (Aldactone -) 25 mg PO DAILY [facility] Last Admin: 01/12/17 09:41 Dose: 25 mg Trazodone HCl (Desyrel -) 100 mg PO HS [facility] Last Admin: 01/11/17 23:17 Dose: 100 mg - Objective Vital Signs: Vital Signs Temperature 98.7 F 01/12/17 10:00 Pulse Rate 85 01/12/17 18:00 Respiratory Rate 21 01/12/17 18:00 Blood Pressure 131/66 01/12/17 18:00 O2 Sat by Pulse Oximetry (%) 98 01/12/17 20:06 Constitutional: Yes: No Distress Eyes: Yes: WNL HENT: Yes: WNL Neck: Yes: WNL, Supple Cardiovascular: Yes: WNL, Regular Rate and Rhythm Respiratory: Yes: Diminished Gastrointestinal: Yes: WNL, Normal Bowel Sounds, Soft Labs: CBC, BMP 01/12/17 05:25 01/10/17 05:15 INR, PTT INR 1.35 (0.82-1.09) H 01/01/17 10:18 Problem List - Problems (1) Acute on chronic systolic (congestive) heart failure Assessment/Plan: Pt was given dose of IV lasix Cont spirinolactone Monitor electrolytes Code(s): I50.23 - ACUTE ON CHRONIC SYSTOLIC (CONGESTIVE) HEART FAILURE (2) ACS (acute coronary syndrome) Assessment/Plan: NSTEMI Pt on IV heparin Will d/w cardio Cont asa/plavix Code(s): I24.9 - ACUTE ISCHEMIC HEART DISEASE, UNSPECIFIED (3) HTN (hypertension) Code(s): I10 - ESSENTIAL (PRIMARY) HYPERTENSION (4) Infection of left foot Assessment/Plan: Cont PO augmentin Code(s): L08.9 - LOCAL INFECTION OF THE SKIN AND SUBCUTANEOUS TISSUE, UNSP (5) Diabetes Assessment/Plan: Glucose has been elevated Will increase metformin Code(s): E11.9 - TYPE 2 DIABETES MELLITUS WITHOUT COMPLICATIONS (6) CAD (coronary artery disease) Code(s): I25.10 - ATHSCL HEART DISEASE OF [place] CORONARY ARTERY W/O ANG PCTRS (7) Dementia Code(s): F03.90 - UNSPECIFIED DEMENTIA WITHOUT BEHAVIORAL DISTURBANCE
[2017-01-13] MEDS: HEPARIN NA (PORCINE) 5,000 UNITS/ML 1ML VIAL IVPUSH PRN ×2 (01:00→09:53)
[2017-01-13 06:07] LABS: BASOPHIL 0.7 % (0-2.0); MCH 27.7 pg (25.7-33.7); MCHC 32.5 g/dl (32.0-35.9); MEAN CELL VOLUME 85.1 fl (80-96); MEAN PLT VOLUME 8.7 fl (7.5-11.1); PLATELET COUNT 505 K/MM3 (134-434); RDW 14.8 % (11.9-15.9); WHITE BLOOD COUNT 14.4 K/mm3 (4.0-10.0)
[2017-01-13] MEDS: metFORMIN HCL 500 MG TABLET (FP) PO SCH ×2 (06:34→17:04)
[2017-01-13 06:36] LABS: ALBUMIN 2.4 g/dl (3.4-5.0); ANION GAP 10 (8-16); BILIRUBIN,TOTAL 0.3 mg/dL (0.2-1.0); CALCIUM 9.1 mg/dL (8.5-10.1); CO2 28 mmol/L (21-32); CREATININE 0.8 mg/dL (0.7-1.3); GLUCOSE,RANDOM 198 mg/dL (74-106); SGOT/AST 18 U/L (15-37); SGPT/ALT 26 U/L (12-78); TOT PROT 6.6 g/dl (6.4-8.2)
[2017-01-13 06:37] LABS: ALK PHOS 90 U/L (45-117)
[2017-01-13] MEDS ORDERED: HEPARIN INFUSION - 500 ML IVPB ONE (09:39)
[2017-01-13] MEDS: HEPARIN - 25,000 UNIT in SODIUM CHLORIDE 495 ML IV SCH ×2 (09:53→17:05)
[2017-01-13] MEDS: CLOPIDOGREL BISULFATE 75 MG TABLET (FP) PO SCH (09:55)
[2017-01-13] MEDS: MEMANTINE HCL 10 MG TABLET (FP) PO SCH ×2 (09:55→22:07)
[2017-01-13] MEDS: QUEtiapine FUMARATE 25 MG TABLET (FP) PO SCH ×2 (09:55→22:07)
[2017-01-13] MEDS: METOPROLOL SUCCINATE 25 MG TAB.SR.24H (FP) PO SCH (09:55)
[2017-01-13] MEDS: SPIRONOLACTONE 25 MG TABLET (FP) PO SCH (09:55)
[2017-01-13] MEDS: ASPIRIN 81 MG CHEWABLE TABLETS PO SCH (09:55)
[2017-01-13] MEDS: AMOX TR/POT CLAV 875MG/125MG TABLETS (FP) PO SCH ×2 (09:55→17:04)
[2017-01-13] MEDS: LISINOPRIL 5 MG TABLET (FP) PO SCH (09:56)
--- NOTE | 2017-01-13 11:50 | PN ---
Progress Note, Physician History of Present Illness: pulmonary no distress,confused,-tachypnea - Current Medication List Current Medications: Active Medications Acetaminophen (Tylenol -) 650 mg PO Q6H PRN PRN Reason: FEVER OR PAIN Last Admin: 01/07/17 21:18 Dose: 650 mg Amoxicillin/Clavulanate Potassium (Augmentin - 875mg Tablet) 1 tab PO BID@0800, 1730 [facility] Last Admin: 01/13/17 09:55 Dose: 1 tab Aspirin (Asa -) 81 mg PO DAILY [facility] Last Admin: 01/13/17 09:55 Dose: 81 mg Clopidogrel Bisulfate (Plavix -) 75 mg PO DAILY [facility] Last Admin: 01/13/17 09:55 Dose: 75 mg Collagenase (Santyl -) 1 applic TP DAILY [facility] Last Admin: 01/12/17 09:42 Dose: 1 applic Haloperidol (Haldol Injection (Fast Acting) -) 5 mg IM Q4H PRN PRN Reason: AGITATION Last Admin: 01/09/17 16:15 Dose: 5 mg Heparin Sodium (Porcine) (Heparin -) 1,000 unit IVPUSH PRN PRN PRN Reason: Heparin Last Admin: 01/13/17 09:53 Dose: 1,000 unit Heparin Sodium (Porcine) (Heparin -) 5,000 unit IVPUSH PRN PRN PRN Reason: Heparin Last Admin: 01/10/17 21:15 Dose: 5,000 unit Heparin Sodium (Porcine) 25, (000 unit/ Sodium Chloride) 500 mls @ 16 mls/hr IV TITR [facility]; 800 UNIT/HR PRN Reason: Protocol Last Admin: 01/13/17 09:53 Dose: 34 mls/hr Lisinopril (Prinivil) 2.5 mg PO DAILY [facility] Last Admin: 01/13/17 09:56 Dose: 2.5 mg Memantine (Namenda -) 10 mg PO BID [facility] Last Admin: 01/13/17 09:55 Dose: 10 mg Metformin HCl (Glucophage -) 1,000 mg PO BIDI [facility] Last Admin: 01/13/17 06:34 Dose: 1,000 mg Metoprolol Succinate (Toprol Xl -) 25 mg PO DAILY [facility] Last Admin: 01/13/17 09:55 Dose: 25 mg Quetiapine Fumarate (Seroquel -) 25 mg PO BID [facility] Last Admin: 01/13/17 09:55 Dose: 25 mg Spironolactone (Aldactone -) 25 mg PO DAILY [facility] Last Admin: 01/13/17 09:55 Dose: 25 mg Trazodone HCl (Desyrel -) 100 mg PO HS [facility] Last Admin: 01/12/17 21:03 Dose: 100 mg - Objective Vital Signs: Vital Signs Temperature 97.5 F L 01/13/17 05:50 Pulse Rate 98 H 01/13/17 05:50 Respiratory Rate 21 01/13/17 05:50 Blood Pressure 121/72 01/13/17 05:50 O2 Sat by Pulse Oximetry (%) 98 01/12/17 20:06 Constitutional: Yes: Well Nourished, Calm, Other (confused) Eyes: Yes: WNL HENT: Yes: WNL Neck: Yes: WNL Cardiovascular: Yes: Regular Rate and Rhythm, S1, S2 Respiratory: Yes: Diminished Gastrointestinal: Yes: Normal Bowel Sounds, Soft Extremities: Yes: WNL Edema: No Labs: CBC, BMP 01/13/17 05:05 01/13/17 05:05 INR, PTT INR 1.35 (0.82-1.09) H 01/01/17 10:18 Assessment/Plan A/P Acute NSTEMI/+Troponins Severe Aortic Stenosis Mitral Regurgitation Severe LV Systolic Dysfunction UTI Sepsis resolving Lactic Acidosis resolved Dementia - complete antibiotics - ASA, plavix - beta tamika - aldactone, GIO-I - aspiration precautions - O2 as needed - DVT prophylaxis - chest x-ray today DR BERGER
[2017-01-13] MEDS: COLLAGENASE CLOSTRIDIUM HIST. 30 GRAMS TUBE TP SCH (14:00)
--- NOTE | 2017-01-13 14:35 | PN ---
Progress Note, Physician History of Present Illness: The patient is a 76 year old male, [place] with a significant past medical history of Alzheimer's, HLD, NIDDM, HTN, who presents to the emergency department with lethargy and worsening mental status since yesterday. The patient is here with his daughter who reports the patient waking up feeling more lethargic today. The daughter notes that yesterday he was more "sluggish" when walking up the 3 flights of steps to his apartment and seemed SOB while walking up stairs. Daughter denies recent fevers, chills, cough or any recent expressions of pain or discomfort by the pt. Daughter denies any recent nausea, vomit, diarrhea or constipation. Daughter denies any recent cough. This HPI is limited due to the patients worsening dementia and obtained primarily from aidather.. Allergies: NKA Past surgical history: None reported. Social History: Nonsmoker. Denies EtOH use and recreational drug use. Primary Care Physician:Dr.James Sears - Current Medication List Current Medications: Active Medications Acetaminophen (Tylenol -) 650 mg PO Q6H PRN PRN Reason: FEVER OR PAIN Last Admin: 01/07/17 21:18 Dose: 650 mg Amoxicillin/Clavulanate Potassium (Augmentin - 875mg Tablet) 1 tab PO BID@0800, 1730 [facility] Last Admin: 01/13/17 09:55 Dose: 1 tab Aspirin (Asa -) 81 mg PO DAILY [facility] Last Admin: 01/13/17 09:55 Dose: 81 mg Clopidogrel Bisulfate (Plavix -) 75 mg PO DAILY [facility] Last Admin: 01/13/17 09:55 Dose: 75 mg Collagenase (Santyl -) 1 applic TP DAILY [facility] Last Admin: 01/12/17 09:42 Dose: 1 applic Haloperidol (Haldol Injection (Fast Acting) -) 5 mg IM Q4H PRN PRN Reason: AGITATION Last Admin: 01/09/17 16:15 Dose: 5 mg Heparin Sodium (Porcine) (Heparin -) 1,000 unit IVPUSH PRN PRN PRN Reason: Heparin Last Admin: 01/13/17 09:53 Dose: 1,000 unit Heparin Sodium (Porcine) (Heparin -) 5,000 unit IVPUSH PRN PRN PRN Reason: Heparin Last Admin: 01/10/17 21:15 Dose: 5,000 unit Heparin Sodium (Porcine) 25, (000 unit/ Sodium Chloride) 500 mls @ 16 mls/hr IV TITR [facility]UCY; 800 UNIT/HR PRN Reason: Protocol Last Admin: 01/13/17 09:53 Dose: 34 mls/hr Lisinopril (Prinivil) 2.5 mg PO DAILY [facility] Last Admin: 01/13/17 09:56 Dose: 2.5 mg Memantine (Namenda -) 10 mg PO BID [facility] Last Admin: 01/13/17 09:55 Dose: 10 mg Metformin HCl (Glucophage -) 1,000 mg PO BIDI [facility] Last Admin: 01/13/17 06:34 Dose: 1,000 mg Metoprolol Succinate (Toprol Xl -) 25 mg PO DAILY [facility] Last Admin: 01/13/17 09:55 Dose: 25 mg Quetiapine Fumarate (Seroquel -) 25 mg PO BID [facility] Last Admin: 01/13/17 09:55 Dose: 25 mg Spironolactone (Aldactone -) 25 mg PO DAILY [facility] Last Admin: 01/13/17 09:55 Dose: 25 mg Trazodone HCl (Desyrel -) 100 mg PO HS [facility] Last Admin: 01/12/17 21:03 Dose: 100 mg - Objective Vital Signs: Vital Signs Temperature 98.1 F 01/13/17 10:00 Pulse Rate 92 H 01/13/17 10:35 Respiratory Rate 20 01/13/17 10:00 Blood Pressure 119/60 01/13/17 10:00 O2 Sat by Pulse Oximetry (%) 96 01/13/17 10:35 Eyes: Yes: WNL, Conjunctiva Clear, EOM Intact HENT: Yes: WNL, Atraumatic, Normocephalic Neck: Yes: WNL, Supple, Trachea Midline Cardiovascular: Yes: WNL, Regular Rate and Rhythm Respiratory: Yes: WNL, Regular, CTA Bilaterally Gastrointestinal: Yes: WNL, Normal Bowel Sounds Genitourinary: Yes: WNL Musculoskeletal: Yes: WNL Extremities: Yes: WNL Edema: No Integumentary: Yes: WNL ...Motor Strength: WNL Psychiatric: Yes: WNL Labs: CBC, BMP 01/13/17 05:05 01/13/17 05:05 INR, PTT INR 1.35 (0.82-1.09) H 01/01/17 10:18 Problem List - Problems (1) CAD (coronary artery disease) Code(s): I25.10 - ATHSCL HEART DISEASE OF [place] CORONARY ARTERY W/O ANG PCTRS (2) Dementia Code(s): F03.90 - UNSPECIFIED DEMENTIA WITHOUT BEHAVIORAL DISTURBANCE Qualifiers: Dementia type: Alzheimer's disease Dementia behavioral disturbance: without behavioral disturbance (3) Infection of left foot Code(s): L08.9 - LOCAL INFECTION OF THE SKIN AND SUBCUTANEOUS TISSUE, UNSP (4) Open wound of left foot Code(s): S91.302A - UNSPECIFIED OPEN WOUND, LEFT FOOT, INITIAL ENCOUNTER Qualifiers: Encounter type: sequela Qualified Code(s): S91.302S - Unspecified open wound, left foot, sequela (5) Positive cardiac stress test Code(s): R94.39 - ABNORMAL RESULT OF OTHER CARDIOVASCULAR FUNCTION STUDY (6) Tachycardia Code(s): R00.0 - TACHYCARDIA, UNSPECIFIED (7) Diabetes Code(s): E11.9 - TYPE 2 DIABETES MELLITUS WITHOUT COMPLICATIONS (8) HTN (hypertension) Code(s): I10 - ESSENTIAL (PRIMARY) HYPERTENSION (9) Normocytic anemia Code(s): D64.9 - ANEMIA, UNSPECIFIED Assessment/Plan - Problems (1) ACS (acute coronary syndrome) Assessment/Plan: severely reduced LVEF, with significant and AR. Marked dementia. Coninue present medications. Conservative management (ie no coronary angiogram or further valvular workup) at present. Code(s): I24.9 - ACUTE ISCHEMIC HEART DISEASE, UNSPECIFIED (2) Dementia Assessment/Plan: progressively severe dementia. Code(s): F03.90 - UNSPECIFIED DEMENTIA WITHOUT BEHAVIORAL DISTURBANCE (3) Diabetes Code(s): E11.9 - TYPE 2 DIABETES MELLITUS WITHOUT COMPLICATIONS (4) Acute on chronic systolic (congestive) heart failure Assessment/Plan: Acute episode of systolic heart failure yesterday; resolved. Furosemide 40 mg IVP; f/u Is and Os; BUN/Cr, electrolytes, TNI. Continue metoprolol, lisinopril, and spironolactone. ASA 81 mg daily. d/c telemetry Code(s): I50.23 - ACUTE ON CHRONIC SYSTOLIC (CONGESTIVE) HEART FAILURE
[2017-01-13] MEDS: HALOPERIDOL LACTATE 5 MG/ML IM PRN (15:33)
[2017-01-13] MEDS ORDERED: PT OWN MED DRAWER 7, Y5N ONE ×2 (16:24→21:53)
--- NOTE | 2017-01-13 19:38 | PN ---
Progress Note, Physician History of Present Illness: Pt remains afebrile but WBC increased - Current Medication List Current Medications: Active Medications Acetaminophen (Tylenol -) 650 mg PO Q6H PRN PRN Reason: FEVER OR PAIN Last Admin: 01/07/17 21:18 Dose: 650 mg Amoxicillin/Clavulanate Potassium (Augmentin - 875mg Tablet) 1 tab PO BID@0800, 1730 [facility] Last Admin: 01/13/17 17:04 Dose: 1 tab Aspirin (Asa -) 81 mg PO DAILY [facility] Last Admin: 01/13/17 09:55 Dose: 81 mg Clopidogrel Bisulfate (Plavix -) 75 mg PO DAILY [facility] Last Admin: 01/13/17 09:55 Dose: 75 mg Collagenase (Santyl -) 1 applic TP DAILY [facility] Last Admin: 01/13/17 14:00 Dose: 1 applic Haloperidol (Haldol Injection (Fast Acting) -) 5 mg IM Q4H PRN PRN Reason: AGITATION Last Admin: 01/13/17 15:33 Dose: 5 mg Heparin Sodium (Porcine) (Heparin -) 1,000 unit IVPUSH PRN PRN PRN Reason: Heparin Last Admin: 01/13/17 09:53 Dose: 1,000 unit Heparin Sodium (Porcine) (Heparin -) 5,000 unit IVPUSH PRN PRN PRN Reason: Heparin Last Admin: 01/10/17 21:15 Dose: 5,000 unit Heparin Sodium (Porcine) 25, (000 unit/ Sodium Chloride) 500 mls @ 16 mls/hr IV TITR [facility]; 800 UNIT/HR PRN Reason: Protocol Last Admin: 01/13/17 17:05 Dose: Not Given Lisinopril (Prinivil) 2.5 mg PO DAILY [facility] Last Admin: 01/13/17 09:56 Dose: 2.5 mg Memantine (Namenda -) 10 mg PO BID [facility] Last Admin: 01/13/17 09:55 Dose: 10 mg Metformin HCl (Glucophage -) 1,000 mg PO BIDI [facility] Last Admin: 01/13/17 17:04 Dose: 1,000 mg Metoprolol Succinate (Toprol Xl -) 25 mg PO DAILY [facility] Last Admin: 01/13/17 09:55 Dose: 25 mg Quetiapine Fumarate (Seroquel -) 25 mg PO BID [facility] Last Admin: 01/13/17 09:55 Dose: 25 mg Spironolactone (Aldactone -) 25 mg PO DAILY [facility] Last Admin: 01/13/17 09:55 Dose: 25 mg Trazodone HCl (Desyrel -) 100 mg PO [facility] Last Admin: 01/12/17 21:03 Dose: 100 mg - Objective Vital Signs: Vital Signs Temperature 97.9 F 01/13/17 18:00 Pulse Rate 98 H 01/13/17 18:00 Respiratory Rate 20 01/13/17 18:00 Blood Pressure 151/79 01/13/17 18:00 O2 Sat by Pulse Oximetry (%) 96 01/13/17 10:35 HENT: Yes: WNL Neck: Yes: WNL, Supple Cardiovascular: Yes: WNL, Regular Rate and Rhythm Respiratory: Yes: WNL, Regular, CTA Bilaterally Gastrointestinal: Yes: WNL, Normal Bowel Sounds, Soft Labs: CBC, BMP 01/13/17 05:05 01/13/17 05:05 INR, PTT INR 1.35 (0.82-1.09) H 01/01/17 10:18 Problem List - Problems (1) Leukocytosis Assessment/Plan: WBC elevated to 14 Cont augmentin for UTI Reconsult ID Code(s): D72.829 - ELEVATED WHITE BLOOD CELL COUNT, UNSPECIFIED (2) Acute on chronic systolic (congestive) heart failure Assessment/Plan: Cont spirinolactone Monitor electrolytes Code(s): I50.23 - ACUTE ON CHRONIC SYSTOLIC (CONGESTIVE) HEART FAILURE (3) ACS (acute coronary syndrome) Assessment/Plan: NSTEMI Cont IV heparin as per cardio Cont asa/plavix Code(s): I24.9 - ACUTE ISCHEMIC HEART DISEASE, UNSPECIFIED (4) HTN (hypertension) Assessment/Plan: Cont metoprolol/lisinopril Code(s): I10 - ESSENTIAL (PRIMARY) HYPERTENSION (5) Infection of left foot Assessment/Plan: Cont PO augmentin Code(s): L08.9 - LOCAL INFECTION OF THE SKIN AND SUBCUTANEOUS TISSUE, UNSP (6) Diabetes Code(s): E11.9 - TYPE 2 DIABETES MELLITUS WITHOUT COMPLICATIONS (7) CAD (coronary artery disease) Code(s): I25.10 - ATHSCL HEART DISEASE OF [place] CORONARY ARTERY W/O ANG PCTRS (8) Dementia Code(s): F03.90 - UNSPECIFIED DEMENTIA WITHOUT BEHAVIORAL DISTURBANCE Qualifiers: Dementia type: Alzheimer's disease Dementia behavioral disturbance: without behavioral disturbance
[2017-01-13] MEDS: traZODone HCL 100 MG TABLET (FP) PO SCH (22:07)
[2017-01-14] MEDS: HALOPERIDOL LACTATE 5 MG/ML IM PRN ×2 (01:30→13:29)
[2017-01-14] MEDS ORDERED: HEPARIN INFUSION - 500 ML IVPB ONE ×2 (03:08→16:47)
[2017-01-14 06:25] LABS: BASOPHIL 0.8 % (0-2.0); EOSINOPHIL 1.3 % (0-4.5); MEAN CELL VOLUME 84.4 fl (80-96); MEAN PLT VOLUME 8.7 fl (7.5-11.1); NEUTROPHILS 75.2 % (42.8-82.8); PLATELET COUNT 487 K/MM3 (134-434); RDW 14.9 % (11.9-15.9)
[2017-01-14] MEDS: metFORMIN HCL 500 MG TABLET (FP) PO SCH ×2 (06:38→17:15)
[2017-01-14 06:47] LABS: ALBUMIN 2.3 g/dl (3.4-5.0); ANION GAP 8 (8-16); BILIRUBIN,TOTAL 0.5 mg/dL (0.2-1.0); CALCIUM 9.1 mg/dL (8.5-10.1); CO2 30 mmol/L (21-32); CREATININE 0.7 mg/dL (0.7-1.3); GLUCOSE,RANDOM 253 mg/dL (74-106); SGOT/AST 19 U/L (15-37); SGPT/ALT 25 U/L (12-78); TOT PROT 6.4 g/dl (6.4-8.2)
[2017-01-14 06:49] LABS: ALK PHOS 82 U/L (45-117)
--- NOTE | 2017-01-14 09:20 | PN ---
Progress Note, Physician History of Present Illness: The patient is a 76 year old male, [place] with a significant past medical history of Alzheimer's, HLD, NIDDM, HTN, who presents to the emergency department with lethargy and worsening mental status since yesterday. The patient is here with his daughter who reports the patient waking up feeling more lethargic today. The daughter notes that yesterday he was more "sluggish" when walking up the 3 flights of steps to his apartment and seemed SOB while walking up stairs. Daughter denies recent fevers, chills, cough or any recent expressions of pain or discomfort by the pt. Daughter denies any recent nausea, vomit, diarrhea or constipation. Daughter denies any recent cough. This HPI is limited due to the patients worsening dementia and obtained primarily from [facility].. Allergies: NKA Past surgical history: None reported. Social History: Nonsmoker. Denies EtOH use and recreational drug use. Primary Care Physician:Dr.James Sears - Current Medication List Current Medications: Active Medications Acetaminophen (Tylenol -) 650 mg PO Q6H PRN PRN Reason: FEVER OR PAIN Last Admin: 01/07/17 21:18 Dose: 650 mg Amoxicillin/Clavulanate Potassium (Augmentin - 875mg Tablet) 1 tab PO BID@0800, 1730 [facility] Last Admin: 01/13/17 17:04 Dose: 1 tab Aspirin (Asa -) 81 mg PO DAILY [facility] Last Admin: 01/13/17 09:55 Dose: 81 mg Clopidogrel Bisulfate (Plavix -) 75 mg PO DAILY [facility] Last Admin: 01/13/17 09:55 Dose: 75 mg Collagenase (Santyl -) 1 applic TP DAILY [facility] Last Admin: 01/13/17 14:00 Dose: 1 applic Haloperidol (Haldol Injection (Fast Acting) -) 5 mg IM Q4H PRN PRN Reason: AGITATION Last Admin: 01/14/17 01:30 Dose: 5 mg Heparin Sodium (Porcine) (Heparin -) 1,000 unit IVPUSH PRN PRN PRN Reason: Heparin Last Admin: 01/13/17 09:53 Dose: 1,000 unit Heparin Sodium (Porcine) (Heparin -) 5,000 unit IVPUSH PRN PRN PRN Reason: Heparin Last Admin: 01/10/17 21:15 Dose: 5,000 unit Heparin Sodium (Porcine) 25, (000 unit/ Sodium Chloride) 500 mls @ 16 mls/hr IV TITR [facility]UC[facility]; 800 UNIT/HR PRN Reason: Protocol Last Admin: 01/13/17 17:05 Dose: Not Given Lisinopril (Prinivil) 2.5 mg PO DAILY [facility] Last Admin: 01/13/17 09:56 Dose: 2.5 mg Memantine (Namenda -) 10 mg PO BID [facility] Last Admin: 01/13/17 22:07 Dose: 10 mg Metformin HCl (Glucophage -) 1,000 mg PO BIDI [facility] Last Admin: 01/14/17 06:38 Dose: 1,000 mg Metoprolol Succinate (Toprol Xl -) 25 mg PO DAILY [facility] Last Admin: 01/13/17 09:55 Dose: 25 mg Quetiapine Fumarate (Seroquel -) 25 mg PO BID [facility] Last Admin: 01/13/17 22:07 Dose: 25 mg Spironolactone (Aldactone -) 25 mg PO DAILY [facility] Last Admin: 01/13/17 09:55 Dose: 25 mg Trazodone HCl (Desyrel -) 100 mg PO HS [facility] Last Admin: 01/13/17 22:07 Dose: 100 mg - Objective Vital Signs: Vital Signs Temperature 98.1 F 01/14/17 06:00 Pulse Rate 92 H 01/14/17 06:00 Respiratory Rate 20 01/14/17 06:00 Blood Pressure 113/70 01/14/17 06:00 O2 Sat by Pulse Oximetry (%) 96 01/13/17 21:00 Eyes: Yes: WNL, Conjunctiva Clear, EOM Intact HENT: Yes: WNL, Atraumatic, Normocephalic Neck: Yes: WNL, Supple, Trachea Midline Cardiovascular: Yes: WNL, Pulse Irregular, Murmur, S1, S2 Respiratory: Yes: WNL, Regular, CTA Bilaterally Gastrointestinal: Yes: WNL, Normal Bowel Sounds Genitourinary: Yes: WNL Musculoskeletal: Yes: WNL Extremities: Yes: WNL Edema: No Integumentary: Yes: WNL Neurological: Yes: Confusion, Lethargy ...Motor Strength: WNL Psychiatric: Yes: WNL Labs: CBC, BMP 01/14/17 05:15 01/14/17 05:15 INR, PTT INR 1.35 (0.82-1.09) H 01/01/17 10:18 Problem List - Problems (1) CAD (coronary artery disease) Code(s): I25.10 - ATHSCL HEART DISEASE OF [place] CORONARY ARTERY W/O ANG PCTRS (2) Dementia Code(s): F03.90 - UNSPECIFIED DEMENTIA WITHOUT BEHAVIORAL DISTURBANCE Qualifiers: Dementia type: Alzheimer's disease Dementia behavioral disturbance: without behavioral disturbance (3) Infection of left foot Code(s): L08.9 - LOCAL INFECTION OF THE SKIN AND SUBCUTANEOUS TISSUE, UNSP (4) Open wound of left foot Code(s): S91.302A - UNSPECIFIED OPEN WOUND, LEFT FOOT, INITIAL ENCOUNTER Qualifiers: Encounter type: sequela Qualified Code(s): S91.302S - Unspecified open wound, left foot, sequela (5) Positive cardiac stress test Code(s): R94.39 - ABNORMAL RESULT OF OTHER CARDIOVASCULAR FUNCTION STUDY (6) Tachycardia Code(s): R00.0 - TACHYCARDIA, UNSPECIFIED (7) Diabetes Code(s): E11.9 - TYPE 2 DIABETES MELLITUS WITHOUT COMPLICATIONS (8) HTN (hypertension) Code(s): I10 - ESSENTIAL (PRIMARY) HYPERTENSION (9) Normocytic anemia Code(s): D64.9 - ANEMIA, UNSPECIFIED Assessment/Plan - Problems (1) ACS (acute coronary syndrome) Assessment/Plan: severely reduced LVEF, with significant and AR. Marked dementia. Coninue present medications. Conservative management (ie no coronary angiogram or further valvular workup) at present. Code(s): I24.9 - ACUTE ISCHEMIC HEART DISEASE, UNSPECIFIED (2) Dementia Assessment/Plan: progressively severe dementia. Code(s): F03.90 - UNSPECIFIED DEMENTIA WITHOUT BEHAVIORAL DISTURBANCE (3) Diabetes Code(s): E11.9 - TYPE 2 DIABETES MELLITUS WITHOUT COMPLICATIONS (4) Acute on chronic systolic (congestive) heart failure Assessment/Plan: Acute episode of systolic heart failure yesterday; resolved. Furosemide 40 mg IVP; f/u Is and Os; BUN/Cr, electrolytes, TNI. Continue metoprolol, lisinopril, and spironolactone. ASA 81 mg daily. d/c telemetry Code(s): I50.23 - ACUTE ON CHRONIC SYSTOLIC (CONGESTIVE) HEART FAILURE
[2017-01-14] MEDS ORDERED: PT OWN MED DRAWER 7, Y5N ONE ×3 (09:34→22:04)
[2017-01-14] MEDS: AMOX TR/POT CLAV 875MG/125MG TABLETS (FP) PO SCH ×2 (09:48→17:15)
[2017-01-14] MEDS: METOPROLOL SUCCINATE 25 MG TAB.SR.24H (FP) PO SCH (09:49)
[2017-01-14] MEDS: ASPIRIN 81 MG CHEWABLE TABLETS PO SCH (09:49)
[2017-01-14] MEDS: SPIRONOLACTONE 25 MG TABLET (FP) PO SCH (09:49)
[2017-01-14] MEDS: MEMANTINE HCL 10 MG TABLET (FP) PO SCH ×2 (09:49→22:04)
[2017-01-14] MEDS: COLLAGENASE CLOSTRIDIUM HIST. 30 GRAMS TUBE TP SCH (09:50)
[2017-01-14] MEDS: QUEtiapine FUMARATE 25 MG TABLET (FP) PO SCH ×2 (09:50→22:04)
[2017-01-14] MEDS: LISINOPRIL 5 MG TABLET (FP) PO SCH (09:50)
[2017-01-14] MEDS: CLOPIDOGREL BISULFATE 75 MG TABLET (FP) PO SCH (09:50)
--- NOTE | 2017-01-14 10:15 | PN ---
Progress Note (short form) - Note Progress Note: PULMONARY Appears comfortable, confused. No fevers recorded. Last Vital Signs Temp Pulse Resp BP Pulse Ox 98.1 F 91 H 20 113/70 95 01/14/17 06:00 01/14/17 10:13 01/14/17 06:00 01/14/17 06:00 01/14/17 10:13 Gen: confused, NAD Heart: RRR, +systolic murmur Lung: decreased breath sounds at the bases Abd: soft, nontender Ext: +toe gangrene CBC, BMP 01/14/17 05:15 01/14/17 05:15 Active Medications Acetaminophen (Tylenol -) 650 mg PO Q6H PRN PRN Reason: FEVER OR PAIN Last Admin: 01/07/17 21:18 Dose: 650 mg Amoxicillin/Clavulanate Potassium (Augmentin - 875mg Tablet) 1 tab PO BID@0800, 1730 [facility] Last Admin: 01/14/17 09:48 Dose: 1 tab Aspirin (Asa -) 81 mg PO DAILY [facility] Last Admin: 01/14/17 09:49 Dose: 81 mg Clopidogrel Bisulfate (Plavix -) 75 mg PO DAILY [facility] Last Admin: 01/14/17 09:50 Dose: 75 mg Collagenase (Santyl -) 1 applic TP DAILY [facility] Last Admin: 01/14/17 09:50 Dose: 1 applic Haloperidol (Haldol Injection (Fast Acting) -) 5 mg IM Q4H PRN PRN Reason: AGITATION Last Admin: 01/14/17 01:30 Dose: 5 mg Heparin Sodium (Porcine) (Heparin -) 1,000 unit IVPUSH PRN PRN PRN Reason: Heparin Last Admin: 01/13/17 09:53 Dose: 1,000 unit Heparin Sodium (Porcine) (Heparin -) 5,000 unit IVPUSH PRN PRN PRN Reason: Heparin Last Admin: 01/10/17 21:15 Dose: 5,000 unit Heparin Sodium (Porcine) 25, (000 unit/ Sodium Chloride) 500 mls @ 16 mls/hr IV TITR [facility]UCY; 800 UNIT/HR PRN Reason: Protocol Last Admin: 01/13/17 17:05 Dose: Not Given Lisinopril (Prinivil) 2.5 mg PO DAILY [facility] Last Admin: 01/14/17 09:50 Dose: 2.5 mg Memantine (Namenda -) 10 mg PO BID [facility] Last Admin: 01/14/17 09:49 Dose: 10 mg Metformin HCl (Glucophage -) 1,000 mg PO BIDI [facility] Last Admin: 01/14/17 06:38 Dose: 1,000 mg Metoprolol Succinate (Toprol Xl -) 25 mg PO DAILY [facility] Last Admin: 01/14/17 09:49 Dose: 25 mg Quetiapine Fumarate (Seroquel -) 25 mg PO BID [facility] Last Admin: 01/14/17 09:50 Dose: 25 mg Spironolactone (Aldactone -) 25 mg PO DAILY [facility] Last Admin: 01/14/17 09:49 Dose: 25 mg Trazodone HCl (Desyrel -) 100 mg PO HS [facility] Last Admin: 01/13/17 22:07 Dose: 100 mg A/P Acute NSTEMI/+Troponins Severe Aortic Stenosis Mitral Regurgitation Severe LV Systolic Dysfunction UTI Sepsis resolving Lactic Acidosis resolved Dementia - complete antibiotics - ASA, plavix - beta tamika - aldactone, GIO-I - aspiration precautions - O2 as needed - DVT prophylaxis
[2017-01-14] MEDS: HEPARIN - 25,000 UNIT in SODIUM CHLORIDE 495 ML IV SCH (17:14)
[2017-01-14] MEDS: traZODone HCL 100 MG TABLET (FP) PO SCH (22:04)
--- NOTE | 2017-01-14 23:52 | PN ---
Progress Note, Physician - Current Medication List Current Medications: Active Medications Acetaminophen (Tylenol -) 650 mg PO Q6H PRN PRN Reason: FEVER OR PAIN Last Admin: 01/07/17 21:18 Dose: 650 mg Amoxicillin/Clavulanate Potassium (Augmentin - 875mg Tablet) 1 tab PO BID@0800, 1730 [facility] Last Admin: 01/14/17 17:15 Dose: 1 tab Aspirin (Asa -) 81 mg PO DAILY [facility] Last Admin: 01/14/17 09:49 Dose: 81 mg Clopidogrel Bisulfate (Plavix -) 75 mg PO DAILY [facility] Last Admin: 01/14/17 09:50 Dose: 75 mg Collagenase (Santyl -) 1 applic TP DAILY [facility] Last Admin: 01/14/17 09:50 Dose: 1 applic Haloperidol (Haldol Injection (Fast Acting) -) 5 mg IM Q4H PRN PRN Reason: AGITATION Last Admin: 01/14/17 13:29 Dose: 5 mg Heparin Sodium (Porcine) (Heparin -) 1,000 unit IVPUSH PRN PRN PRN Reason: Heparin Last Admin: 01/13/17 09:53 Dose: 1,000 unit Heparin Sodium (Porcine) (Heparin -) 5,000 unit IVPUSH PRN PRN PRN Reason: Heparin Last Admin: 01/10/17 21:15 Dose: 5,000 unit Heparin Sodium (Porcine) 25, (000 unit/ Sodium Chloride) 500 mls @ 16 mls/hr IV TITR [facility]; 800 UNIT/HR PRN Reason: Protocol Last Admin: 01/14/17 17:14 Dose: 33 mls/hr Lisinopril (Prinivil) 2.5 mg PO DAILY [facility] Last Admin: 01/14/17 09:50 Dose: 2.5 mg Memantine (Namenda -) 10 mg PO BID [facility] Last Admin: 01/14/17 22:04 Dose: 10 mg Metformin HCl (Glucophage -) 1,000 mg PO BIDI [facility] Last Admin: 01/14/17 17:15 Dose: 1,000 mg Metoprolol Succinate (Toprol Xl -) 25 mg PO DAILY [facility] Last Admin: 01/14/17 09:49 Dose: 25 mg Quetiapine Fumarate (Seroquel -) 25 mg PO BID [facility] Last Admin: 01/14/17 22:04 Dose: 25 mg Spironolactone (Aldactone -) 25 mg PO DAILY [facility] Last Admin: 01/14/17 09:49 Dose: 25 mg Trazodone HCl (Desyrel -) 100 mg PO [facility] Last Admin: 01/14/17 22:04 Dose: 100 mg - Objective Vital Signs: Vital Signs Temperature 99.2 F 01/14/17 22:00 Pulse Rate 84 01/14/17 22:00 Respiratory Rate 18 01/14/17 22:00 Blood Pressure 109/56 01/14/17 22:00 O2 Sat by Pulse Oximetry (%) 95 01/14/17 20:28 Labs: CBC, BMP 01/14/17 05:15 01/14/17 05:15 INR, PTT INR 1.35 (0.82-1.09) H 01/01/17 10:18 Problem List - Problems (1) Leukocytosis Code(s): D72.829 - ELEVATED WHITE BLOOD CELL COUNT, UNSPECIFIED (2) Acute on chronic systolic (congestive) heart failure Code(s): I50.23 - ACUTE ON CHRONIC SYSTOLIC (CONGESTIVE) HEART FAILURE (3) ACS (acute coronary syndrome) Code(s): I24.9 - ACUTE ISCHEMIC HEART DISEASE, UNSPECIFIED (4) HTN (hypertension) Code(s): I10 - ESSENTIAL (PRIMARY) HYPERTENSION (5) Infection of left foot Code(s): L08.9 - LOCAL INFECTION OF THE SKIN AND SUBCUTANEOUS TISSUE, UNSP (6) Diabetes Code(s): E11.9 - TYPE 2 DIABETES MELLITUS WITHOUT COMPLICATIONS (7) CAD (coronary artery disease) Code(s): I25.10 - ATHSCL HEART DISEASE OF [place] CORONARY ARTERY W/O ANG PCTRS (8) Dementia Code(s): F03.90 - UNSPECIFIED DEMENTIA WITHOUT BEHAVIORAL DISTURBANCE Qualifiers: Dementia type: Alzheimer's disease Dementia behavioral disturbance: without behavioral disturbance
[2017-01-15] MEDS: HALOPERIDOL LACTATE 5 MG/ML IM PRN (00:15)
[2017-01-15] MEDS: metFORMIN HCL 500 MG TABLET (FP) PO SCH ×2 (06:11→17:45)
[2017-01-15 06:16] LABS: MCH 27.7 pg (25.7-33.7); MCHC 32.7 g/dl (32.0-35.9); MEAN CELL VOLUME 84.8 fl (80-96); MEAN PLT VOLUME 8.6 fl (7.5-11.1); PLATELET COUNT 461 K/MM3 (134-434); RDW 15.5 % (11.9-15.9); WHITE BLOOD COUNT 10.5 K/mm3 (4.0-10.0)
[2017-01-15] MEDS ORDERED: PT OWN MED DRAWER 7, Y5N ONE (08:47)
[2017-01-15] MEDS: AMOX TR/POT CLAV 875MG/125MG TABLETS (FP) PO SCH ×2 (08:47→17:45)
[2017-01-15] MEDS: COLLAGENASE CLOSTRIDIUM HIST. 30 GRAMS TUBE TP SCH (09:28)
[2017-01-15] MEDS: CLOPIDOGREL BISULFATE 75 MG TABLET (FP) PO SCH (09:28)
[2017-01-15] MEDS: ASPIRIN 81 MG CHEWABLE TABLETS PO SCH (09:28)
[2017-01-15] MEDS: LISINOPRIL 5 MG TABLET (FP) PO SCH (09:28)
[2017-01-15] MEDS: MEMANTINE HCL 10 MG TABLET (FP) PO SCH ×2 (09:28→21:31)
[2017-01-15] MEDS: SPIRONOLACTONE 25 MG TABLET (FP) PO SCH (09:28)
[2017-01-15] MEDS: METOPROLOL SUCCINATE 25 MG TAB.SR.24H (FP) PO SCH (09:29)
[2017-01-15] MEDS: QUEtiapine FUMARATE 25 MG TABLET (FP) PO SCH ×2 (09:30→21:31)
--- NOTE | 2017-01-15 10:13 | PN ---
Progress Note, Physician History of Present Illness: The patient is a 76 year old male, JAVIDA with a significant past medical history of Alzheimer's, HLD, NIDDM, HTN, who presents to the emergency department with lethargy and worsening mental status since yesterday. The patient is here with his daughter who reports the patient waking up feeling more lethargic today. The daughter notes that yesterday he was more "sluggish" when walking up the 3 flights of steps to his apartment and seemed SOB while walking up stairs. Daughter denies recent fevers, chills, cough or any recent expressions of pain or discomfort by the pt. Daughter denies any recent nausea, vomit, diarrhea or constipation. Daughter denies any recent cough. This HPI is limited due to the patients worsening dementia and obtained primarily from [place].. Allergies: NKA Past surgical history: None reported. Social History: Nonsmoker. Denies EtOH use and recreational drug use. Primary Care Physician:Dr.James Sears - Current Medication List Current Medications: Active Medications Acetaminophen (Tylenol -) 650 mg PO Q6H PRN PRN Reason: FEVER OR PAIN Last Admin: 01/07/17 21:18 Dose: 650 mg Amoxicillin/Clavulanate Potassium (Augmentin - 875mg Tablet) 1 tab PO BID@0800, 1730 [facility] Last Admin: 01/15/17 08:47 Dose: 1 tab Aspirin (Asa -) 81 mg PO DAILY [facility] Last Admin: 01/15/17 09:28 Dose: 81 mg Clopidogrel Bisulfate (Plavix -) 75 mg PO DAILY [facility] Last Admin: 01/15/17 09:28 Dose: 75 mg Collagenase (Santyl -) 1 applic TP DAILY [facility] Last Admin: 01/15/17 09:28 Dose: 1 applic Haloperidol (Haldol Injection (Fast Acting) -) 5 mg IM Q4H PRN PRN Reason: AGITATION Last Admin: 01/15/17 00:15 Dose: 5 mg Heparin Sodium (Porcine) (Heparin -) 1,000 unit IVPUSH PRN PRN PRN Reason: Heparin Last Admin: 01/13/17 09:53 Dose: 1,000 unit Heparin Sodium (Porcine) (Heparin -) 5,000 unit IVPUSH PRN PRN PRN Reason: Heparin Last Admin: 01/10/17 21:15 Dose: 5,000 unit Heparin Sodium (Porcine) 25, (000 unit/ Sodium Chloride) 500 mls @ 16 mls/hr IV TITR [facility]; 800 UNIT/HR PRN Reason: Protocol Last Admin: 01/14/17 17:14 Dose: 33 mls/hr Lisinopril (Prinivil) 2.5 mg PO DAILY [facility] Last Admin: 01/15/17 09:28 Dose: 2.5 mg Memantine (Namenda -) 10 mg PO BID [facility] Last Admin: 01/15/17 09:28 Dose: 10 mg Metformin HCl (Glucophage -) 1,000 mg PO BIDI [facility] Last Admin: 01/15/17 06:11 Dose: 1,000 mg Metoprolol Succinate (Toprol Xl -) 25 mg PO DAILY [facility] Last Admin: 01/15/17 09:29 Dose: 25 mg Quetiapine Fumarate (Seroquel -) 25 mg PO BID [facility] Last Admin: 01/15/17 09:30 Dose: 25 mg Spironolactone (Aldactone -) 25 mg PO DAILY [facility] Last Admin: 01/15/17 09:28 Dose: 25 mg Trazodone HCl (Desyrel -) 100 mg PO HS [facility] Last Admin: 01/14/17 22:04 Dose: 100 mg - Objective Vital Signs: Vital Signs Temperature 98.6 F 01/15/17 06:00 Pulse Rate 86 01/15/17 08:41 Respiratory Rate 22 01/15/17 08:41 Blood Pressure 121/47 01/15/17 08:41 O2 Sat by Pulse Oximetry (%) 95 01/14/17 20:28 Eyes: Yes: WNL, Conjunctiva Clear, EOM Intact HENT: Yes: WNL, Atraumatic, Normocephalic Neck: Yes: WNL, Supple, Trachea Midline Cardiovascular: Yes: WNL, Regular Rate and Rhythm Respiratory: Yes: WNL, Regular, CTA Bilaterally Gastrointestinal: Yes: WNL, Normal Bowel Sounds Genitourinary: Yes: WNL Musculoskeletal: Yes: WNL Extremities: Yes: WNL Edema: No Integumentary: Yes: WNL Neurological: Yes: Alert ...Motor Strength: WNL Psychiatric: Yes: WNL Labs: CBC, BMP 01/15/17 05:15 01/14/17 05:15 INR, PTT INR 1.35 (0.82-1.09) H 01/01/17 10:18 Problem List - Problems (1) CAD (coronary artery disease) Code(s): I25.10 - ATHSCL HEART DISEASE OF [place] CORONARY ARTERY W/O ANG PCTRS (2) Dementia Code(s): F03.90 - UNSPECIFIED DEMENTIA WITHOUT BEHAVIORAL DISTURBANCE Qualifiers: Dementia type: Alzheimer's disease Dementia behavioral disturbance: without behavioral disturbance (3) Infection of left foot Code(s): L08.9 - LOCAL INFECTION OF THE SKIN AND SUBCUTANEOUS TISSUE, UNSP (4) Open wound of left foot Code(s): S91.302A - UNSPECIFIED OPEN WOUND, LEFT FOOT, INITIAL ENCOUNTER Qualifiers: Encounter type: sequela Qualified Code(s): S91.302S - Unspecified open wound, left foot, sequela (5) Positive cardiac stress test Code(s): R94.39 - ABNORMAL RESULT OF OTHER CARDIOVASCULAR FUNCTION STUDY (6) Tachycardia Code(s): R00.0 - TACHYCARDIA, UNSPECIFIED (7) Diabetes Code(s): E11.9 - TYPE 2 DIABETES MELLITUS WITHOUT COMPLICATIONS (8) HTN (hypertension) Code(s): I10 - ESSENTIAL (PRIMARY) HYPERTENSION (9) Normocytic anemia Code(s): D64.9 - ANEMIA, UNSPECIFIED Assessment/Plan - Problems (1) ACS (acute coronary syndrome) Assessment/Plan: severely reduced LVEF, with significant and AR. Marked dementia. Coninue present medications. Conservative management (ie no coronary angiogram or further valvular workup) at present. Code(s): I24.9 - ACUTE ISCHEMIC HEART DISEASE, UNSPECIFIED (2) Dementia Assessment/Plan: progressively severe dementia. Code(s): F03.90 - UNSPECIFIED DEMENTIA WITHOUT BEHAVIORAL DISTURBANCE (3) Diabetes Code(s): E11.9 - TYPE 2 DIABETES MELLITUS WITHOUT COMPLICATIONS (4) Acute on chronic systolic (congestive) heart failure Assessment/Plan: Acute episode of systolic heart failure yesterday; resolved. Furosemide 40 mg IVP; f/u Is and Os; BUN/Cr, electrolytes, TNI. Continue metoprolol, lisinopril, and spironolactone. ASA 81 mg daily. d/c telemetry Code(s): I50.23 - ACUTE ON CHRONIC SYSTOLIC (CONGESTIVE) HEART FAILURE
--- NOTE | 2017-01-15 10:53 | PN ---
Progress Note (short form) - Note Progress Note: PULMONARY No events overnight. Appears comfortable. No fevers recorded. Last Vital Signs Temp Pulse Resp BP Pulse Ox 98.6 F 86 22 121/47 95 01/15/17 06:00 01/15/17 08:41 01/15/17 08:41 01/15/17 08:41 01/14/17 20:28 Gen: confused, NAD Heart: RRR, +systolic murmur Lung: decreased breath sounds at the bases Abd: soft, nontender Ext: +toe gangrene CBC, BMP 01/15/17 05:15 01/14/17 05:15 Active Medications Acetaminophen (Tylenol -) 650 mg PO Q6H PRN PRN Reason: FEVER OR PAIN Last Admin: 01/07/17 21:18 Dose: 650 mg Amoxicillin/Clavulanate Potassium (Augmentin - 875mg Tablet) 1 tab PO BID@0800, 1730 [facility] Last Admin: 01/15/17 08:47 Dose: 1 tab Aspirin (Asa -) 81 mg PO DAILY [facility] Last Admin: 01/15/17 09:28 Dose: 81 mg Clopidogrel Bisulfate (Plavix -) 75 mg PO DAILY [facility] Last Admin: 01/15/17 09:28 Dose: 75 mg Collagenase (Santyl -) 1 applic TP DAILY [facility] Last Admin: 01/15/17 09:28 Dose: 1 applic Haloperidol (Haldol Injection (Fast Acting) -) 5 mg IM Q4H PRN PRN Reason: AGITATION Last Admin: 01/15/17 00:15 Dose: 5 mg Heparin Sodium (Porcine) (Heparin -) 1,000 unit IVPUSH PRN PRN PRN Reason: Heparin Last Admin: 01/13/17 09:53 Dose: 1,000 unit Heparin Sodium (Porcine) (Heparin -) 5,000 unit IVPUSH PRN PRN PRN Reason: Heparin Last Admin: 01/10/17 21:15 Dose: 5,000 unit Heparin Sodium (Porcine) 25, (000 unit/ Sodium Chloride) 500 mls @ 16 mls/hr IV TITR [facility]; 800 UNIT/HR PRN Reason: Protocol Last Admin: 01/14/17 17:14 Dose: 33 mls/hr Lisinopril (Prinivil) 2.5 mg PO DAILY [facility] Last Admin: 01/15/17 09:28 Dose: 2.5 mg Memantine (Namenda -) 10 mg PO BID [facility] Last Admin: 01/15/17 09:28 Dose: 10 mg Metformin HCl (Glucophage -) 1,000 mg PO BIDI [facility] Last Admin: 01/15/17 06:11 Dose: 1,000 mg Metoprolol Succinate (Toprol Xl -) 25 mg PO DAILY [facility] Last Admin: 01/15/17 09:29 Dose: 25 mg Quetiapine Fumarate (Seroquel -) 25 mg PO BID [facility] Last Admin: 01/15/17 09:30 Dose: 25 mg Spironolactone (Aldactone -) 25 mg PO DAILY [facility] Last Admin: 01/15/17 09:28 Dose: 25 mg Trazodone HCl (Desyrel -) 100 mg PO HS [facility] Last Admin: 01/14/17 22:04 Dose: 100 mg A/P Acute NSTEMI/+Troponins Severe Aortic Stenosis Mitral Regurgitation Severe LV Systolic Dysfunction UTI Sepsis resolving Lactic Acidosis resolved Dementia - complete antibiotics - ASA, plavix - beta tamika - aldactone, GIO-I - aspiration precautions - O2 as needed - DVT prophylaxis
[2017-01-15] MEDS: HEPARIN - 25,000 UNIT in SODIUM CHLORIDE 495 ML IV SCH (12:51)
[2017-01-15] MEDS: traZODone HCL 100 MG TABLET (FP) PO SCH (21:31)
--- NOTE | 2017-01-15 21:52 | PN ---
Progress Note, Physician History of Present Illness: No new changes - Current Medication List Current Medications: Active Medications Acetaminophen (Tylenol -) 650 mg PO Q6H PRN PRN Reason: FEVER OR PAIN Last Admin: 01/07/17 21:18 Dose: 650 mg Amoxicillin/Clavulanate Potassium (Augmentin - 875mg Tablet) 1 tab PO BID@0800, 1730 [facility] Last Admin: 01/15/17 17:45 Dose: 1 tab Aspirin (Asa -) 81 mg PO DAILY [facility] Last Admin: 01/15/17 09:28 Dose: 81 mg Clopidogrel Bisulfate (Plavix -) 75 mg PO DAILY [facility] Last Admin: 01/15/17 09:28 Dose: 75 mg Collagenase (Santyl -) 1 applic TP DAILY [facility] Last Admin: 01/15/17 09:28 Dose: 1 applic Haloperidol (Haldol Injection (Fast Acting) -) 5 mg IM Q4H PRN PRN Reason: AGITATION Last Admin: 01/15/17 00:15 Dose: 5 mg Heparin Sodium (Porcine) (Heparin -) 1,000 unit IVPUSH PRN PRN PRN Reason: Heparin Last Admin: 01/13/17 09:53 Dose: 1,000 unit Heparin Sodium (Porcine) (Heparin -) 5,000 unit IVPUSH PRN PRN PRN Reason: Heparin Last Admin: 01/10/17 21:15 Dose: 5,000 unit Heparin Sodium (Porcine) 25, (000 unit/ Sodium Chloride) 500 mls @ 16 mls/hr IV TITR [facility]; 800 UNIT/HR PRN Reason: Protocol Last Admin: 01/15/17 12:51 Dose: 33 mls/hr Lisinopril (Prinivil) 2.5 mg PO DAILY [facility] Last Admin: 01/15/17 09:28 Dose: 2.5 mg Memantine (Namenda -) 10 mg PO BID [facility] Last Admin: 01/15/17 21:31 Dose: 10 mg Metformin HCl (Glucophage -) 1,000 mg PO BIDI [facility] Last Admin: 01/15/17 17:45 Dose: 1,000 mg Metoprolol Succinate (Toprol Xl -) 25 mg PO DAILY [facility] Last Admin: 01/15/17 09:29 Dose: 25 mg Quetiapine Fumarate (Seroquel -) 25 mg PO BID [facility] Last Admin: 01/15/17 21:31 Dose: 25 mg Spironolactone (Aldactone -) 25 mg PO DAILY [facility] Last Admin: 01/15/17 09:28 Dose: 25 mg Trazodone HCl (Desyrel -) 100 mg PO [facility] Last Admin: 01/15/17 21:31 Dose: 100 mg - Objective Vital Signs: Vital Signs Temperature 99.4 F 01/15/17 16:46 Pulse Rate 90 01/15/17 16:46 Respiratory Rate 18 01/15/17 16:46 Blood Pressure 115/62 01/15/17 16:46 O2 Sat by Pulse Oximetry (%) 97 01/15/17 09:00 Constitutional: Yes: No Distress Neck: Yes: WNL, Supple Cardiovascular: Yes: WNL, Regular Rate and Rhythm Respiratory: Yes: WNL, Regular, CTA Bilaterally Gastrointestinal: Yes: WNL, Normal Bowel Sounds Labs: CBC, BMP 01/15/17 05:15 01/14/17 05:15 INR, PTT INR 1.35 (0.82-1.09) H 01/01/17 10:18 Problem List - Problems (1) Leukocytosis Assessment/Plan: WBC decreased Cont augmentin for UTI Code(s): D72.829 - ELEVATED WHITE BLOOD CELL COUNT, UNSPECIFIED (2) Acute on chronic systolic (congestive) heart failure Assessment/Plan: Cont spirinolactone Monitor electrolytes Code(s): I50.23 - ACUTE ON CHRONIC SYSTOLIC (CONGESTIVE) HEART FAILURE (3) ACS (acute coronary syndrome) Assessment/Plan: NSTEMI Cont IV heparin as per cardio Cont asa/plavix Code(s): I24.9 - ACUTE ISCHEMIC HEART DISEASE, UNSPECIFIED (4) HTN (hypertension) Assessment/Plan: Cont metoprolol/lisinopril Code(s): I10 - ESSENTIAL (PRIMARY) HYPERTENSION (5) Infection of left foot Assessment/Plan: (+) gangrene rt toes Code(s): L08.9 - LOCAL INFECTION OF THE SKIN AND SUBCUTANEOUS TISSUE, UNSP (6) Diabetes Assessment/Plan: Glucose has been elevated Cont metformin Add januvia Add sliding scale w/ novolog Code(s): E11.9 - TYPE 2 DIABETES MELLITUS WITHOUT COMPLICATIONS (7) CAD (coronary artery disease) Code(s): I25.10 - ATHSCL HEART DISEASE OF [place] CORONARY ARTERY W/O ANG PCTRS (8) Dementia Code(s): F03.90 - UNSPECIFIED DEMENTIA WITHOUT BEHAVIORAL DISTURBANCE Qualifiers: Dementia type: Alzheimer's disease Dementia behavioral disturbance: without behavioral disturbance
[2017-01-15] MEDS: INSULIN SLIDING SCALE (NOVOLOG) 1 VIAL SQ SCH (22:20)
[2017-01-16 05:51] LABS: MCH 27.5 pg (25.7-33.7); MCHC 32.2 g/dl (32.0-35.9); MEAN CELL VOLUME 85.3 fl (80-96); MEAN PLT VOLUME 8.4 fl (7.5-11.1); NEUTROPHILS 67.8 % (42.8-82.8); PLATELET COUNT 453 K/MM3 (134-434); RDW 15.6 % (11.9-15.9); WHITE BLOOD COUNT 11.8 K/mm3 (4.0-10.0)
[2017-01-16 06:16] LABS: ALBUMIN 2.4 g/dl (3.4-5.0); ANION GAP 9 (8-16); CALCIUM 9.3 mg/dL (8.5-10.1); CO2 28 mmol/L (21-32); CREATININE 0.8 mg/dL (0.7-1.3); GLUCOSE,RANDOM 171 mg/dL (74-106); SGOT/AST 13 U/L (15-37); SGPT/ALT 20 U/L (12-78)
[2017-01-16 06:17] LABS: ALK PHOS 77 U/L (45-117); BILIRUBIN,TOTAL 0.4 mg/dL (0.2-1.0); TOT PROT 6.4 g/dl (6.4-8.2)
[2017-01-16] MEDS: metFORMIN HCL 500 MG TABLET (FP) PO SCH ×2 (06:35→17:30)
[2017-01-16] MEDS: INSULIN SLIDING SCALE (NOVOLOG) 1 VIAL SQ SCH ×4 (06:35→22:23)
[2017-01-16] MEDS: AMOX TR/POT CLAV 875MG/125MG TABLETS (FP) PO SCH ×2 (08:40→18:00)
[2017-01-16] MEDS: ASPIRIN 81 MG CHEWABLE TABLETS PO SCH (09:02)
[2017-01-16] MEDS: CLOPIDOGREL BISULFATE 75 MG TABLET (FP) PO SCH (09:04)
[2017-01-16] MEDS: SPIRONOLACTONE 25 MG TABLET (FP) PO SCH (09:04)
[2017-01-16] MEDS: QUEtiapine FUMARATE 25 MG TABLET (FP) PO SCH ×2 (09:04→22:15)
[2017-01-16] MEDS: MEMANTINE HCL 10 MG TABLET (FP) PO SCH ×2 (09:04→22:15)
[2017-01-16] MEDS: METOPROLOL SUCCINATE 25 MG TAB.SR.24H (FP) PO SCH (09:06)
[2017-01-16] MEDS: LISINOPRIL 5 MG TABLET (FP) PO SCH (09:07)
[2017-01-16] MEDS ORDERED: HEPARIN INFUSION - 500 ML IVPB ONE (09:14)
[2017-01-16] MEDS: HEPARIN - 25,000 UNIT in SODIUM CHLORIDE 495 ML IV SCH (09:22)
[2017-01-16] MEDS: HEPARIN NA (PORCINE) 5,000 UNITS/ML 1ML VIAL IVPUSH PRN (09:26)
[2017-01-16] MEDS: COLLAGENASE CLOSTRIDIUM HIST. 30 GRAMS TUBE TP SCH (09:48)
--- NOTE | 2017-01-16 10:53 | PN ---
Progress Note, Physician Chief Complaint: Pt easily awakened; disoriented. History of Present Illness: The patient is a 76 year old male (louisa Cabrera), BIBA with a significant past medical history of Alzheimer's, HLD, NIDDM, HTN, who presents to the emergency department with lethargy and worsening mental status since yesterday. The patient is here with his daughter who reports the patient waking up feeling more lethargic today. The daughter notes that yesterday he was more "sluggish" when walking up the 3 flights of steps to his apartment and seemed SOB while walking up stairs. Daughter denies recent fevers, chills, cough or any recent expressions of pain or discomfort by the pt. Daughter denies any recent nausea, vomit, diarrhea or constipation. Daughter denies any recent cough. This HPI is limited due to the patients worsening dementia and obtained primarily from [facility].. Allergies: NKA Past surgical history: None reported. Social History: Nonsmoker. Denies EtOH use and recreational drug use. Primary Care Physician:Dr.James Sears - Current Medication List Current Medications: Active Medications Acetaminophen (Tylenol -) 650 mg PO Q6H PRN PRN Reason: FEVER OR PAIN Last Admin: 01/07/17 21:18 Dose: 650 mg Amoxicillin/Clavulanate Potassium (Augmentin - 875mg Tablet) 1 tab PO BID@0800, 1730 [facility] Last Admin: 01/16/17 08:40 Dose: 1 tab Aspirin (Asa -) 81 mg PO DAILY [facility] Last Admin: 01/16/17 09:02 Dose: 81 mg Clopidogrel Bisulfate (Plavix -) 75 mg PO DAILY [facility] Last Admin: 01/16/17 09:04 Dose: 75 mg Collagenase (Santyl -) 1 applic TP DAILY [facility] Last Admin: 01/16/17 09:48 Dose: 1 applic Haloperidol (Haldol Injection (Fast Acting) -) 5 mg IM Q4H PRN PRN Reason: AGITATION Last Admin: 01/15/17 00:15 Dose: 5 mg Heparin Sodium (Porcine) (Heparin -) 1,000 unit IVPUSH PRN PRN PRN Reason: Heparin Last Admin: 01/16/17 09:26 Dose: 1,000 unit Heparin Sodium (Porcine) (Heparin -) 5,000 unit IVPUSH PRN PRN PRN Reason: Heparin Last Admin: 01/10/17 21:15 Dose: 5,000 unit Heparin Sodium (Porcine) 25, (000 unit/ Sodium Chloride) 500 mls @ 16 mls/hr IV TITR [facility]; 800 UNIT/HR PRN Reason: Protocol Last Admin: 01/16/17 09:22 Dose: 35 mls/hr Insulin Aspart (Novolog Vial Sliding Scale -) 1 vial SQ ACHS [facility] PRN Reason: Protocol Last Admin: 01/16/17 06:35 Dose: 2 unit Lisinopril (Prinivil) 2.5 mg PO DAILY [facility] Last Admin: 01/16/17 09:07 Dose: 2.5 mg Memantine (Namenda -) 10 mg PO BID [facility] Last Admin: 01/16/17 09:04 Dose: 10 mg Metformin HCl (Glucophage -) 1,000 mg PO BIDI [facility] Last Admin: 01/16/17 06:35 Dose: 1,000 mg Metoprolol Succinate (Toprol Xl -) 25 mg PO DAILY [facility] Last Admin: 01/16/17 09:06 Dose: 25 mg Quetiapine Fumarate (Seroquel -) 25 mg PO BID [facility] Last Admin: 01/16/17 09:04 Dose: 25 mg Spironolactone (Aldactone -) 25 mg PO DAILY [facility] Last Admin: 01/16/17 09:04 Dose: 25 mg Trazodone HCl (Desyrel -) 100 mg PO HS [facility] Last Admin: 01/15/17 21:31 Dose: 100 mg - Objective Vital Signs: Vital Signs Temperature 97.5 F L 01/16/17 06:00 Pulse Rate 68 01/16/17 09:44 Respiratory Rate 20 01/16/17 08:53 Blood Pressure 103/45 01/16/17 06:00 O2 Sat by Pulse Oximetry (%) 98 01/16/17 09:44 Constitutional: Yes: Thin Eyes: Yes: WNL HENT: Yes: WNL Neck: Yes: WNL Cardiovascular: Yes: Pulse Irregular, S1 (varies in intensity) Respiratory: Yes: Regular, Diminished Gastrointestinal: Yes: Soft Genitourinary: No: Anuria Breast(s): Yes: WNL Musculoskeletal: Yes: Muscle Weakness Extremities: Yes: Cool Edema: No Peripheral Pulses WNL: No Peripheral Pulses: Left Doralis Pedis: 1+, Right Dorsalis Pedis: 1+ Neurological: Yes: Confusion, Weakness Psychiatric: Yes: Other (dementia) Labs: CBC, BMP 01/16/17 05:10 01/16/17 05:10 INR, PTT INR 1.35 (0.82-1.09) H 01/01/17 10:18 Abnormal Lab Results 01/16/17 01/16/17 01/16/17 05:10 05:10 05:10 WBC 11.8 H RBC 3.11 L Hgb 8.5 L Hct 26.5 L Plt Count 453 H PTT ([facility]) 42.7 H D Random Glucose 171 H D AST 13 L D Albumin 2.4 L Problem List - Problems (1) ACS (acute coronary syndrome) Assessment/Plan: NSTEMI. severely reduced LVEF, with significant and AR. Marked dementia. Coninue present medications, including beta blockers, ACEI, spironolactone. On ASA and clopidogrel; discontinue IV heparin. Conservative management (ie no coronary angiogram or further valvular workup) at present. Code(s): I24.9 - ACUTE ISCHEMIC HEART DISEASE, UNSPECIFIED (2) Dementia Assessment/Plan: progressively severe dementia. Code(s): F03.90 - UNSPECIFIED DEMENTIA WITHOUT BEHAVIORAL DISTURBANCE (3) Diabetes Code(s): E11.9 - TYPE 2 DIABETES MELLITUS WITHOUT COMPLICATIONS (4) Acute on chronic systolic (congestive) heart failure Assessment/Plan: Acute episode of systolic heart failure yesterday; resolved. Furosemide 40 mg IVP; f/u Is and Os; BUN/Cr, electrolytes, TNI. Continue metoprolol, lisinopril, and spironolactone. ASA 81 mg daily. Code(s): I50.23 - ACUTE ON CHRONIC SYSTOLIC (CONGESTIVE) HEART FAILURE
--- NOTE | 2017-01-16 14:48 | PN ---
Progress Note (short form) - Note Progress Note: Patient seen and examined in the ICU. No acute events overnight. Confused. NAD on NC O2. Intake & Output 01/13/17 01/14/17 01/15/17 01/16/17 23:59 23:59 23:59 23:59 Intake Total 2225 024 0019 231 Output Total 1125 3200 1550 600 Balance 561 -2292 -46 -369 Weight 151 lb 7 oz 154 lb 3 oz 149 lb 7.574 oz 148 lb 12.992 oz Last Vital Signs Temp Pulse Resp BP Pulse Ox 98.5 F 80 19 90/45 98 01/16/17 10:00 01/16/17 10:00 01/16/17 10:00 01/16/17 10:00 01/16/17 09:44 Active Medications Acetaminophen (Tylenol -) 650 mg PO Q6H PRN PRN Reason: FEVER OR PAIN Last Admin: 01/07/17 21:18 Dose: 650 mg Amoxicillin/Clavulanate Potassium (Augmentin - 875mg Tablet) 1 tab PO BID@0800, 1730 [facility] Last Admin: 01/16/17 08:40 Dose: 1 tab Aspirin (Asa -) 81 mg PO DAILY [facility] Last Admin: 01/16/17 09:02 Dose: 81 mg Clopidogrel Bisulfate (Plavix -) 75 mg PO DAILY [facility] Last Admin: 01/16/17 09:04 Dose: 75 mg Collagenase (Santyl -) 1 applic TP DAILY [facility] Last Admin: 01/16/17 09:48 Dose: 1 applic Haloperidol (Haldol Injection (Fast Acting) -) 5 mg IM Q4H PRN PRN Reason: AGITATION Last Admin: 01/15/17 00:15 Dose: 5 mg Heparin Sodium (Porcine) (Heparin -) 1,000 unit IVPUSH PRN PRN PRN Reason: Heparin Last Admin: 01/16/17 09:26 Dose: 1,000 unit Insulin Aspart (Novolog Vial Sliding Scale -) 1 vial SQ ACHS [facility] PRN Reason: Protocol Last Admin: 01/16/17 12:00 Dose: 4 unit Lisinopril (Prinivil) 2.5 mg PO DAILY [facility] Last Admin: 01/16/17 09:07 Dose: 2.5 mg Memantine (Namenda -) 10 mg PO BID [facility] Last Admin: 01/16/17 09:04 Dose: 10 mg Metformin HCl (Glucophage -) 1,000 mg PO BIDI [facility] Last Admin: 01/16/17 06:35 Dose: 1,000 mg Metoprolol Succinate (Toprol Xl -) 25 mg PO DAILY [facility] Last Admin: 01/16/17 09:06 Dose: 25 mg Quetiapine Fumarate (Seroquel -) 25 mg PO BID [facility] Last Admin: 01/16/17 09:04 Dose: 25 mg Spironolactone (Aldactone -) 25 mg PO DAILY [facility] Last Admin: 01/16/17 09:04 Dose: 25 mg Trazodone HCl (Desyrel -) 100 mg PO HS [facility] Last Admin: 01/15/17 21:31 Dose: 100 mg Constitutional: Yes: Awake, confused, NAD Eyes: Yes: Conjunctiva Clear, pupils equal and reactive HENT: Yes: Atraumatic, Normocephalic Neck: Yes: Supple, Trachea Midline. No: Lymphadenopathy Cardiovascular: Yes: Pulse Irregular, S1, S2 Respiratory: Yes: On Nasal O2, Rales. No: Accessory Muscle Use, Cough Gastrointestinal: Yes: Normal Bowel Sounds, Soft ...Rectal Exam: Yes: Deferred Renal/: Yes: WNL Breast(s): Yes: WNL Musculoskeletal: Yes: WNL Extremities: Yes: bilateral foot and agosto ulcers, large L heel ulcer. All appear dry, without erythema, exudate. Peripheral Pulses WNL: Yes Integumentary: Yes: Other (ulcers bilaterally, bilateral great toe, L heel, bilateral agosto.) Wound/Incision: Yes: Clean/Dry Neurological: Yes: awake No: Facial Droop, Seizure ...Motor Strength: WNL Labs: Laboratory Results - last 24 hr 01/15/17 01/15/17 01/16/17 17:27 22:15 05:10 WBC RBC Hgb Hct MCV MCHC RDW Plt Count MPV Neutrophils % Lymphocytes % Monocytes % Eosinophils % Basophils % PTT (Actin FS) 42.7 H D Sodium Potassium Chloride Carbon Dioxide Anion Gap BUN Creatinine Creat Clearance w eGFR POC Glucometer 210.17986 226.37319 Random Glucose Calcium Total Bilirubin AST ALT Alkaline Phosphatase Total Protein Albumin 01/16/17 01/16/17 01/16/17 05:10 05:10 05:19 WBC 11.8 H RBC 3.11 L Hgb 8.5 L Hct 26.5 L MCV 85.3 MCHC 32.2 RDW 15.6 Plt Count 453 H MPV 8.4 Neutrophils % 67.8 Lymphocytes % 20.5 D Monocytes % 7.7 Eosinophils % 3.0 D Basophils % 1.0 PTT (Actin FS) Sodium 137 Potassium 4.9 Chloride 100 Carbon Dioxide 28 Anion Gap 9 BUN 12 Creatinine 0.8 Creat Clearance w eGFR > 60 POC Glucometer 199.70101 Random Glucose 171 H D Calcium 9.3 Total Bilirubin 0.4 AST 13 L D ALT 20 Alkaline Phosphatase 77 Total Protein 6.4 Albumin 2.4 L Problem List - Problems (1) ACS (acute coronary syndrome) Code(s): I24.9 - ACUTE ISCHEMIC HEART DISEASE, UNSPECIFIED (2) CHF (congestive heart failure) Code(s): I50.9 - HEART FAILURE, UNSPECIFIED Qualifiers: Congestive heart failure type: systolic Congestive heart failure chronicity: acute Qualified Code(s): I50.21 - Acute systolic (congestive ) heart failure (3) Dementia Code(s): F03.90 - UNSPECIFIED DEMENTIA WITHOUT BEHAVIORAL DISTURBANCE Qualifiers: Dementia type: Alzheimer's disease Dementia behavioral disturbance: without behavioral disturbance (4) CAD (coronary artery disease) Code(s): I25.10 - ATHSCL HEART DISEASE OF [place] CORONARY ARTERY W/O ANG PCTRS (5) Open wound of left foot Code(s): S91.302A - UNSPECIFIED OPEN WOUND, LEFT FOOT, INITIAL ENCOUNTER Qualifiers: Encounter type: sequela Qualified Code(s): S91.302S - Unspecified open wound, left foot, sequela Assessment/Plan Acute Encephalopathy PAD CHF CAD DM Chronic foot ulcer UTI CHF exacerbation NSTEMI (?) PNA -> bilateral patchy infiltrates History of advancing dementia Aspiration precautions O2 as needed AC Beta tamika Augmentin D/C planning Dr Qureshi
--- NOTE | 2017-01-16 21:18 | PN ---
Progress Note, Physician History of Present Illness: No new changes - Current Medication List Current Medications: Active Medications Acetaminophen (Tylenol -) 650 mg PO Q6H PRN PRN Reason: FEVER OR PAIN Last Admin: 01/07/17 21:18 Dose: 650 mg Amoxicillin/Clavulanate Potassium (Augmentin - 875mg Tablet) 1 tab PO BID@0800, 1730 [facility] Last Admin: 01/16/17 18:00 Dose: 1 tab Aspirin (Asa -) 81 mg PO DAILY [facility] Last Admin: 01/16/17 09:02 Dose: 81 mg Clopidogrel Bisulfate (Plavix -) 75 mg PO DAILY [facility] Last Admin: 01/16/17 09:04 Dose: 75 mg Collagenase (Santyl -) 1 applic TP DAILY [facility] Last Admin: 01/16/17 09:48 Dose: 1 applic Haloperidol (Haldol Injection (Fast Acting) -) 5 mg IM Q4H PRN PRN Reason: AGITATION Last Admin: 01/15/17 00:15 Dose: 5 mg Insulin Aspart (Novolog Vial Sliding Scale -) 1 vial SQ ACHS [facility] PRN Reason: Protocol Last Admin: 01/16/17 17:30 Dose: 2 unit Lisinopril (Prinivil) 2.5 mg PO DAILY [facility] Last Admin: 01/16/17 09:07 Dose: 2.5 mg Memantine (Namenda -) 10 mg PO BID [facility] Last Admin: 01/16/17 09:04 Dose: 10 mg Metformin HCl (Glucophage -) 1,000 mg PO BIDI [facility] Last Admin: 01/16/17 17:30 Dose: 1,000 mg Metoprolol Succinate (Toprol Xl -) 25 mg PO DAILY [facility] Last Admin: 01/16/17 09:06 Dose: 25 mg Quetiapine Fumarate (Seroquel -) 25 mg PO BID [facility] Last Admin: 01/16/17 09:04 Dose: 25 mg Spironolactone (Aldactone -) 25 mg PO DAILY [facility] Last Admin: 01/16/17 09:04 Dose: 25 mg Trazodone HCl (Desyrel -) 100 mg PO HS [facility] Last Admin: 01/15/17 21:31 Dose: 100 mg - Objective Vital Signs: Vital Signs Temperature 98.3 F 01/16/17 16:00 Pulse Rate 79 01/16/17 18:00 Respiratory Rate 18 01/16/17 20:09 Blood Pressure 114/80 01/16/17 18:00 O2 Sat by Pulse Oximetry (%) 97 01/16/17 20:09 Constitutional: Yes: No Distress Neck: Yes: WNL, Supple Cardiovascular: Yes: Pulse Irregular Respiratory: Yes: Diminished Gastrointestinal: Yes: WNL, Normal Bowel Sounds, Soft Labs: CBC, BMP 01/16/17 05:10 01/16/17 05:10 INR, PTT INR 1.35 (0.82-1.09) H 01/01/17 10:18 Problem List - Problems (1) Leukocytosis Assessment/Plan: WBC decreased Cont augmentin for UTI Code(s): D72.829 - ELEVATED WHITE BLOOD CELL COUNT, UNSPECIFIED (2) ACS (acute coronary syndrome) Assessment/Plan: NSTEMI IV heparin dc'ed Tele dc'ed DC planning to STR Code(s): I24.9 - ACUTE ISCHEMIC HEART DISEASE, UNSPECIFIED (3) Acute on chronic systolic (congestive) heart failure Assessment/Plan: Cont spirinolactone Monitor electrolytes Code(s): I50.23 - ACUTE ON CHRONIC SYSTOLIC (CONGESTIVE) HEART FAILURE (4) HTN (hypertension) Assessment/Plan: Cont metoprolol/lisinopril Code(s): I10 - ESSENTIAL (PRIMARY) HYPERTENSION (5) Infection of left foot Assessment/Plan: (+) dry gangrene rt toes Code(s): L08.9 - LOCAL INFECTION OF THE SKIN AND SUBCUTANEOUS TISSUE, UNSP (6) Diabetes Assessment/Plan: Glucose has been elevated Cont metformin Cont januvia Cont sliding scale w/ novolog Code(s): E11.9 - TYPE 2 DIABETES MELLITUS WITHOUT COMPLICATIONS (7) CAD (coronary artery disease) Code(s): I25.10 - ATHSCL HEART DISEASE OF [place] CORONARY ARTERY W/O ANG PCTRS (8) Dementia Code(s): F03.90 - UNSPECIFIED DEMENTIA WITHOUT BEHAVIORAL DISTURBANCE Qualifiers: Dementia type: Alzheimer's disease Dementia behavioral disturbance: without behavioral disturbance
[2017-01-16] MEDS ORDERED: PT OWN MED DRAWER 7, Y5N ONE (22:12)
[2017-01-16] MEDS: traZODone HCL 100 MG TABLET (FP) PO SCH (22:15)
[2017-01-17] MEDS: metFORMIN HCL 500 MG TABLET (FP) PO SCH (06:33)
[2017-01-17] MEDS: INSULIN SLIDING SCALE (NOVOLOG) 1 VIAL SQ SCH ×2 (06:33→11:52)
[2017-01-17 07:59] LABS: MCH 27.4 pg (25.7-33.7); MCHC 32.6 g/dl (32.0-35.9); MEAN CELL VOLUME 84.2 fl (80-96); MEAN PLT VOLUME 7.9 fl (7.5-11.1); PLATELET COUNT 405 K/MM3 (134-434); RDW 15.6 % (11.9-15.9)
[2017-01-17] MEDS: AMOX TR/POT CLAV 875MG/125MG TABLETS (FP) PO SCH (08:29)
[2017-01-17] MEDS: ASPIRIN 81 MG CHEWABLE TABLETS PO SCH (09:07)
[2017-01-17] MEDS: CLOPIDOGREL BISULFATE 75 MG TABLET (FP) PO SCH (09:08)
[2017-01-17] MEDS: LISINOPRIL 5 MG TABLET (FP) PO SCH (09:08)
[2017-01-17] MEDS: SPIRONOLACTONE 25 MG TABLET (FP) PO SCH (09:08)
[2017-01-17] MEDS: METOPROLOL SUCCINATE 25 MG TAB.SR.24H (FP) PO SCH (09:09)
[2017-01-17] MEDS: COLLAGENASE CLOSTRIDIUM HIST. 30 GRAMS TUBE TP SCH (09:09)
[2017-01-17] MEDS: MEMANTINE HCL 10 MG TABLET (FP) PO SCH (09:09)
[2017-01-17] MEDS: QUEtiapine FUMARATE 25 MG TABLET (FP) PO SCH (09:09)
[2017-01-17 09:13] LABS: ALBUMIN 2.4 g/dl (3.4-5.0); ALK PHOS 74 U/L (45-117); ANION GAP 9 (8-16); BILIRUBIN,TOTAL 0.5 mg/dL (0.2-1.0); CO2 28 mmol/L (21-32); CREATININE 0.8 mg/dL (0.7-1.3); GLUCOSE,RANDOM 163 mg/dL (74-106); SGOT/AST 10 U/L (15-37); SGPT/ALT 19 U/L (12-78); TOT PROT 6.4 g/dl (6.4-8.2)
--- NOTE | 2017-01-17 12:11 | DS ---
Physical Exam: SUBJECTIVE: Patient seen and examined at bedside. Patient moans and moves slightly with verbal stimulation. OBJECTIVE: Vital Signs 3 Period Temp Pulse Resp BP Sys/Mcdaniel Pulse Ox Last 24 Hr 97.7 F-98.3 F 79-90 18-22 89-114/38-80 97-98 PHYSICAL EXAM GENERAL: The patient is responsive to verbal stimuli. Eyes do not open. GCS-10. HEAD: Normal with no signs of trauma. ENT: Ears normal, nares patent, oropharynx clear without exudates, moist mucous membranes. NECK: Trachea midline, supple. LUNGS: Breath sounds equal, clear to auscultation bilaterally, no wheezes, no crackles, no accessory muscle use. HEART: Regular rate and rhythm, S1, S2 without murmur, rub or gallop. ABDOMEN: Soft, nontender, nondistended, normoactive bowel sounds, no guarding, no rebound, no hepatosplenomegaly, no masses. EXTREMITIES: 2+ pulses, warm, well-perfused, no edema. NEUROLOGICAL: Cranial nerves II through XII grossly intact. Normal speech, gait not observed. PSYCH: Normal mood, normal affect. SKIN: Warm, dry, normal turgor, no rashes or lesions noted. LABS Laboratory Results - last 24 hr 3 01/16/17 01/16/17 01/16/17 05:19 12:13 17:50 WBC RBC Hgb Hct MCV MCHC RDW Plt Count MPV Sodium Potassium Chloride Carbon Dioxide Anion Gap BUN Creatinine Creat Clearance w eGFR POC Glucometer 199.00853 225.51137 178.47187 Random Glucose Calcium Total Bilirubin AST ALT Alkaline Phosphatase Total Protein Albumin 3 01/16/17 01/17/17 01/17/17 22:19 06:31 07:20 WBC 11.0 H RBC 3.22 L Hgb 8.8 L Hct 27.1 L MCV 84.2 MCHC 32.6 RDW 15.6 Plt Count 405 MPV 7.9 Sodium Potassium Chloride Carbon Dioxide Anion Gap BUN Creatinine Creat Clearance w eGFR POC Glucometer 181.50586 173.95001 Random Glucose Calcium Total Bilirubin AST ALT Alkaline Phosphatase Total Protein Albumin 3 01/17/17 01/17/17 07:20 11:27 WBC RBC Hgb Hct MCV MCHC RDW Plt Count MPV Sodium 136 Potassium 4.8 Chloride 99 Carbon Dioxide 28 Anion Gap 9 BUN 14 Creatinine 0.8 Creat Clearance w eGFR > 60 POC Glucometer 210.59513 Random Glucose 163 H Calcium 9.0 Total Bilirubin 0.5 D AST 10 L D ALT 19 Alkaline Phosphatase 74 Total Protein 6.4 Albumin 2.4 L HOSPITAL COURSE: Date of Admission:01/01/17 Date of Discharge: 01/17/17 The patient is a 76 year old male, BIBA with a significant past medical history of Alzheimer's, HLD, NIDDM, HTN, who presented to the emergency department with lethargy and worsening mental status since yesterday. The patient brought in by his daughter who reports the patient woke up feeling more lethargic. The daughter notes that the day before admission, he was more "sluggish" when walking up the 3 flights of steps to his apartment and seemed SOB while walking up stairs. Daughter denied recent fevers, chills, cough or any recent expressions of pain or discomfort by the patient. Daughter denied any recent nausea, vomit, diarrhea or constipation. Daughter denied any recent cough. 1. Leukocytosis - downtrending 17.4 on admission now 11.0 - continue Augmentin 875 bid until 01/23 for UTI/toe infection 2. ACS - NSTEMI - heparin d/c'd - continue Plavix 75 mg po daily - follow up with medical laboratory manager as outpatient - ASA 81mg po daily 3. Acute on chronic CHF - continue Toprol XL 25mg po daily - continue Lisinopril 2.5mg po daily - continue Spironolactone 25mg po daily - f/u with cardiology as outpatient 4. HTN - Toprol, lisinopril, spironolactone as above 5. Right foot gangrene - Augmentin as above - continue Santyl dressing changes daily 6. Diabetes - Metformin 1000 mg po bid - Novolog Sliding Scale 7. Dementia - contiue home meds as below - Namenda 10mg po bid - Seroquel 25mg po bid - Trazadone 100mg po hs Minutes to complete discharge: 45 Discharge Summary Reason For Visit: CONGESTIVE HEART FAILURE, ACUTE CORONARY SYNDROME Current Active Problems ACS (acute coronary syndrome) (Acute) Acute on chronic systolic (congestive) heart failure (Acute) CHF (congestive heart failure) (Acute) Dementia (Acute) Ileus following gastrointestinal surgery (Acute) Infection of left foot (Acute) Leukocytosis (Acute) Small bowel obstruction (Acute) Condition: Guarded - Instructions Diet, Activity, Other Instructions: Low sodium diet. Take home meds as prescribed. Follow up with medical laboratory manager. Referrals: Ian Sears MD [Primary Care Provider] - Disposition: [facility] - Home Medications Comprehensive Discharge Medication List: Ambulatory Orders Amlodipine Besylate [Norvasc -] 5 mg PO DAILY 10/04/16 Aspirin [ASA -] 81 mg PO DAILY 10/04/16 Clopidogrel Bisulfate [Plavix -] 75 mg PO DAILY 10/04/16 Cyanocobalamin (Vitamin B-12) [Vitamin B-12] 1,000 mcg PO DAILY 10/04/16 Donepezil HCl [Aricept -] 10 mg PO DAILY 10/04/16 Memantine HCl [Namenda -] 10 mg PO BID 10/04/16 Quetiapine Fumarate [Seroquel -] 25 mg PO BID 10/04/16 Quetiapine Fumarate [Seroquel -] 50 mg PO HS 10/04/16 Trazodone HCl 100 mg PO HS 10/04/16 Metformin HCl [Metformin HCl ER] 500 mg PO BID 11/26/16 Metoprolol Succinate [Toprol XL -] 25 mg PO DAILY #30 tab 12/06/16 Collagenase Clostridium Hist. [Santyl] 1 applic TP DAILY #90 oint...g. 12/16/16 This patient is new to me today: Yes Date on this admission: 01/17/17 Emergency Visit: Yes ED Registration Date: 01/01/17 Care time: The patient presented to the Emergency Department on the above date and was hospitalized for further evaluation of their emergent condition. Critical Care patient: No - Discharge Referral Referred to [facility] Med P.C.: No
[2017-01-17 13:51] VITALS: BP 92/39; PULSE 84; TEMP 98.8
--- NOTE | 2017-01-17 15:05 | PN ---
Progress Note, Physician Chief Complaint: Pt disoriented, selwynk. His daughter is at bedside. History of Present Illness: The patient is a 76 year old male (louisa Cabrera), BIBA with a significant past medical history of Alzheimer's, HLD, NIDDM, HTN, who presents to the emergency department with lethargy and worsening mental status since yesterday. The patient is here with his daughter who reports the patient waking up feeling more lethargic today. The daughter notes that yesterday he was more "sluggish" when walking up the 3 flights of steps to his apartment and seemed SOB while walking up stairs. Daughter denies recent fevers, chills, cough or any recent expressions of pain or discomfort by the pt. Daughter denies any recent nausea, vomit, diarrhea or constipation. Daughter denies any recent cough. This HPI is limited due to the patients worsening dementia and obtained primarily from daugther.. Allergies: NKA Past surgical history: None reported. Social History: Nonsmoker. Denies EtOH use and recreational drug use. Primary Care Physician:Dr.James Sears - Current Medication List Current Medications: Active Medications Acetaminophen (Tylenol -) 650 mg PO Q6H PRN PRN Reason: FEVER OR PAIN Last Admin: 01/07/17 21:18 Dose: 650 mg Amoxicillin/Clavulanate Potassium (Augmentin - 875mg Tablet) 1 tab PO BID@0800, 1730 [facility] Last Admin: 01/17/17 08:29 Dose: 1 tab Aspirin (Asa -) 81 mg PO DAILY [facility] Last Admin: 01/17/17 09:07 Dose: 81 mg Clopidogrel Bisulfate (Plavix -) 75 mg PO DAILY [facility] Last Admin: 01/17/17 09:08 Dose: 75 mg Collagenase (Santyl -) 1 applic TP DAILY [facility] Last Admin: 01/17/17 09:09 Dose: 1 applic Haloperidol (Haldol Injection (Fast Acting) -) 5 mg IM Q4H PRN PRN Reason: AGITATION Last Admin: 01/15/17 00:15 Dose: 5 mg Insulin Aspart (Novolog Vial Sliding Scale -) 1 vial SQ ACHS [facility] PRN Reason: Protocol Last Admin: 01/17/17 11:52 Dose: 4 unit Lisinopril (Prinivil) 2.5 mg PO DAILY [facility] Last Admin: 01/17/17 09:08 Dose: 2.5 mg Memantine (Namenda -) 10 mg PO BID [facility] Last Admin: 01/17/17 09:09 Dose: 10 mg Metformin HCl (Glucophage -) 1,000 mg PO BIDI [facility] Last Admin: 01/17/17 06:33 Dose: 1,000 mg Metoprolol Succinate (Toprol Xl -) 25 mg PO DAILY [facility] Last Admin: 01/17/17 09:09 Dose: 25 mg Quetiapine Fumarate (Seroquel -) 25 mg PO BID [facility] Last Admin: 01/17/17 09:09 Dose: 25 mg Spironolactone (Aldactone -) 25 mg PO DAILY [facility] Last Admin: 01/17/17 09:08 Dose: 25 mg Trazodone HCl (Desyrel -) 100 mg PO HS [facility] Last Admin: 01/16/17 22:15 Dose: 100 mg - Objective Vital Signs: Vital Signs Temperature 98.8 F 01/17/17 13:50 Pulse Rate 84 01/17/17 13:50 Respiratory Rate 18 01/17/17 13:50 Blood Pressure 92/39 01/17/17 13:50 O2 Sat by Pulse Oximetry (%) 98 01/17/17 10:40 Labs: CBC, BMP 01/17/17 07:20 01/17/17 07:20 INR, PTT INR 1.35 (0.82-1.09) H 01/01/17 10:18 Problem List - Problems (1) ACS (acute coronary syndrome) Code(s): I24.9 - ACUTE ISCHEMIC HEART DISEASE, UNSPECIFIED (2) Dementia Code(s): F03.90 - UNSPECIFIED DEMENTIA WITHOUT BEHAVIORAL DISTURBANCE Qualifiers: Dementia type: Alzheimer's disease Dementia behavioral disturbance: without behavioral disturbance (3) Diabetes Code(s): E11.9 - TYPE 2 DIABETES MELLITUS WITHOUT COMPLICATIONS (4) Acute on chronic systolic (congestive) heart failure Code(s): I50.23 - ACUTE ON CHRONIC SYSTOLIC (CONGESTIVE) HEART FAILURE
== END 2017-01-17 15:10 | DRG 720 ==
LOC: JER 09:28 → JERBED 13:55 → UNDOADMIN 14:29 → JICU 19:49 → J2W 01-06 05:28
PROVIDERS: ADMIT Internal Medicine; ATTEND Internal Medicine
DX: A41.9 Sepsis, unspecified organism (principal); I21.4 Non-ST elevation (NSTEMI) myocardial infarction; I50.23 Acute on chronic systolic (congestive) heart failure; G92 Toxic encephalopathy; I11.0 Hypertensive heart disease with heart failure; E11.52 Type 2 diabetes mellitus with diabetic peripheral angiopathy with gangrene; G93.89 Other specified disorders of brain; E11.42 Type 2 diabetes mellitus with diabetic polyneuropathy; I48.91 Unspecified atrial fibrillation; E87.2 Acidosis; G30.9 Alzheimer's disease, unspecified; D64.9 Anemia, unspecified; F02.80 Dementia in other diseases classified elsewhere, unspecified severity, without behavioral disturbance, psychotic disturbance, mood disturbance, and anxiety; I35.0 Nonrheumatic aortic (valve) stenosis; I34.0 Nonrheumatic mitral (valve) insufficiency; I35.1 Nonrheumatic aortic (valve) insufficiency; N39.0 Urinary tract infection, site not specified; I25.10 Atherosclerotic heart disease of native coronary artery without angina pectoris; B95.2 Enterococcus as the cause of diseases classified elsewhere; Z79.84 Long term (current) use of oral hypoglycemic drugs; E78.5 Hyperlipidemia, unspecified; Z86.73 Personal history of transient ischemic attack (TIA), and cerebral infarction without residual deficits; L08.9 Local infection of the skin and subcutaneous tissue, unspecified; R00.0 Tachycardia, unspecified; L89.302 Pressure ulcer of unspecified buttock, stage 2
CPT/HCPCS: 36415; 36600; 70450-TC; 71010-TC; 71275-TC; 76775-TC; 76856-TC; 80053; 81003; 81015; 82272; 82550; 82553; 82803; 83605; 83880; 84484; 85025; 85027; 85610; 85730; 86850; 86900; 86901; 87040; 87086; 87186; 87899; 93005; 93010; 93306-TC; 94660; 97161-GP; 99285-25; J1644

== ENCOUNTER 2017-01-29 14:25 | Inpatient (IN) | payer OTHER ==
[2017-01-29 14:34] VITALS: BMI 22.5
[2017-01-29] MEDS ORDERED: SODIUM CHLORIDE 1,000 ML IV SCH (14:45)
[2017-01-29 14:46] LABS: VENOUS BLOOD GAS HCO3 18.8 meq/L (19-25); VENOUS PH 7.37 (7.32-7.42)
[2017-01-29 15:19] LABS: MCH 26.4 pg (25.7-33.7); MCHC 31.1 g/dl (32.0-35.9); MEAN PLT VOLUME 9.1 fl (7.5-11.1); PLATELET COUNT 266 K/MM3 (134-434); RDW 16.4 % (11.9-15.9); WHITE BLOOD COUNT 20.6 K/mm3 (4.0-10.0)
[2017-01-29] MEDS ORDERED: HYDROCORTISONE SOD SUCCINATE 100 MG/2 ML VIAL IVPB ONE (15:31)
[2017-01-29 15:35] LABS: INR 1.44 (0.82-1.09)
--- NOTE | 2017-01-29 15:37 | PDOC ---
History of Present Illness <William Suárez - Last Filed: 01/29/17 15:35> - General History Source: Patient, EMS, Family Exam Limitations: No Limitations, Dementia - History of Present Illness Initial Comments: 01/29/17 15:43 The patient is a 76 year old male, with a significant past medical history of anemia, CAD diabetes, hypertension, dementia(Alzheimers), and bipolar disorder , who presents to the emergency department from [facility] for evaluation of lethargy and hypotension. Per EMS, the patient was in the ICU 2 weeks ago for fluid surrounding the heart. After discharge, the patient was set to [facility] for 1 week. Patient has baseline dementia and Alzheimers, but [facility] staff have noted he is increasingly confused. Today, the patient was found to be hypotensive, tachycardic, and tachypneic. Family reports patient had a subjective fever. When EMS arrived on scene, patients bp was 60/30. At the time a 16 crispin was placed to the RFA and an 18 to the LAC, with 3000 mL normal saline during transport. Upon arrival, EMS reports patients bp was up to 70/ 40. Per family member, patient has diabetic foot ulcers in the heels bilaterally , which are managed by Dr. Kothari. No reported chills, cough, or sore throat. No chest pain, diaphoresis, or palpitations. Patient arrived with arndt in place draining hematuria, but no dysuria, frequency, or urgency. Patients history is limited due to PMHx. Allergies: NKDA Past Surgical History: None reported. Social History: Non smoker. No ETOH or drug use. 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 Ian Sears <Marko Menendez - Last Filed: 01/29/17 17:10> - General Chief Complaint: SIRS, Suspected/Possible Stated Complaint: FEVER Time Seen by Provider: 01/29/17 14:30 Past History - Past Medical History Anemia: Yes Asthma: No Cancer: No Cardiac Disorders: Yes CVA: Yes COPD: No CHF: No Dementia: Yes (ALZHEIMERS.) Diabetes: Yes GI Disorders: No Disorders: No HTN: Yes Hypercholesterolemia: No Liver Disease: No Psychiatric Problems: Yes (BIPOLAR.) Seizures: No Thyroid Disease: No - Surgical History Abdominal Surgery: No Appendectomy: No Cardiac Surgery: No Cholecystectomy: No Lung Surgery: No Neurologic Surgery: No Orthopedic Surgery: No - Psycho/Social/Smoking Cessation Hx Anxiety: No Suicidal Ideation: No Smoking History: Unknown if ever smoked Have you smoked in the past 12 months: No Hx Alcohol Use: No Drug/Substance Use Hx: No Substance Use Type: None Hx Substance Use Treatment: No <William Suárez - Last Filed: 01/29/17 15:35> <Marko Menendez - Last Filed: 01/29/17 17:10> - Past Medical History Allergies/Adverse Reactions: Allergies Allergy/AdvReac Type Severity Reaction Status Date / Time No Known Allergies Allergy Verified 01/29/17 14:34 Home Medications: Ambulatory Orders Aspirin [ASA -] 81 mg PO DAILY 10/04/16 Cyanocobalamin (Vitamin B-12) [Vitamin B-12] 1,000 mcg PO DAILY 10/04/16 Donepezil HCl [Aricept -] 10 mg PO DAILY 10/04/16 Quetiapine Fumarate [Seroquel -] 25 mg PO HS 10/04/16 Metformin HCl [Metformin HCl ER] 1,000 mg PO BID 11/26/16 Metoprolol Succinate [Toprol XL -] 25 mg PO DAILY #30 tab 12/06/16 Collagenase Clostridium Hist. [Santyl] 1 applic TP DAILY #90 oint...g. 12/16/16 Acetaminophen [Tylenol .Regular Strength -] 650 mg PO Q6H PRN #0 tablet Clopidogrel Bisulfate [Plavix -] 75 mg PO DAILY tablet 01/17/17 Lisinopril [Prinivil] 2.5 mg PO DAILY tablet 01/17/17 Spironolactone [Aldactone -] 25 mg PO DAILY #0 tablet 01/17/17 Acetaminophen [Tylenol] 650 mg PO BID 01/29/17 Bacitracin - [Bacitracin Topical Ointment -] 1 applic TP DAILY 01/29/17 Insulin Sliding Scale [Novolog Vial Sliding Scale -] 1 vial SQ ACHS PRN Multivitamins [Tab-A-Vit -] 1 tab PO DAILY 01/29/17 Tamsulosin HCl [Flomax] 0.4 mg PO 1630 01/29/17 Vit A/Vitamin D3/E/Aloe V/Znox [Periguard Ointment] 0 gm TP TID 01/29/17 Review of Systems - Review of Systems Able to Perform ROS?: Yes Comments:: 01/29/17 15:43 GENERAL/CONSTITUTIONAL: Yes: +fever, +hypotension, lethargy. No chills. No weakness. HEAD, EYES, EARS, NOSE AND THROAT: No change in vision. No ear pain or discharge. No sore throat. CARDIOVASCULAR: Yes: +tachycardia. No chest pain or shortness of breath. RESPIRATORY: Yes: +tachypnea. No cough, wheezing, or hemoptysis. GASTROINTESTINAL: No nausea, vomiting, diarrhea or constipation. GENITOURINARY: Yes: +hematuria. No dysuria, frequency, or change in urination. MUSCULOSKELETAL: No joint or muscle swelling or pain. No neck or back pain. SKIN: No rash NEUROLOGIC: Yes: +increased confusion. No headache, vertigo, loss of consciousness, or change in strength/sensation. ENDOCRINE: No increased thirst. No abnormal weight change. HEMATOLOGIC/LYMPHATIC: No anemia, easy bleeding, or history of blood clots. ALLERGIC/IMMUNOLOGIC: No hives or skin allergy. <Marko Menendez - Last Filed: 01/29/17 17:10> *Physical Exam - Vital Signs Last Vital Signs Temp Pulse Resp BP Pulse Ox 97.8 F 128 H 28 H 85/59 92 L 01/29/17 15:06 01/29/17 15:28 01/29/17 15:28 01/29/17 15:28 01/29/17 15:28 <William Suárez - Last Filed: 01/29/17 15:35> - Vital Signs Last Vital Signs Temp Pulse Resp BP Pulse Ox 97.8 F 128 H 28 H 85/59 92 L 01/29/17 15:06 01/29/17 15:28 01/29/17 15:28 01/29/17 15:28 01/29/17 15:28 - Physical Exam Comments: 01/29/17 15:43 GENERAL: Awake and alert. Patient is confused but able to follow commands. HEAD: No signs of trauma EYES: PERRLA, EOMI, sclera anicteric, conjunctiva clear ENT: Auricles normal inspection, hearing grossly normal, nares patent, oropharynx clear without exudates. Moist mucosa NECK: Normal ROM, supple, no lymphadenopathy, JVD, or masses LUNGS: Tachypneic. Lungs are clear to auscultation bilaterally. No wheezes, and no crackles HEART: Tachycardic. Regular rhythm, normal S1 and S2, no murmurs, rubs or gallops ABDOMEN: Soft, nontender, normoactive bowel sounds. No guarding, no rebound. No masses EXTREMITIES: Normal range of motion, no edema. No clubbing or cyanosis. No cords , erythema, or tenderness NEUROLOGICAL: Cranial nerves II through XII grossly intact. Normal speech, normal gait SKIN: Warm, Dry, normal turgor, no rashes or lesions noted. <Marko Menendez - Last Filed: 01/29/17 17:10> Heart Score/ECG Review - ECG Intrepretation Comment:: 01/29/17 16:25 Vent Rate: 131 bpm IMPRESSION: Atrial fibrillation with rapid ventricular response. ST & T wave abnormality, consider lateral ischemia. <Marko Menendez - Last Filed: 01/29/17 17:10> ED Treatment Course - LABORATORY CBC & Chemistry Diagram: 01/29/17 15:00 01/29/17 15:00 - ADDITIONAL ORDERS Additional order review: Laboratory Results 01/29/17 14:30 VBG pH 7.37 POC VBG pCO2 33.5 L POC VBG pO2 22.2 L D Mixed VBG HCO3 18.8 L 01/29/17 15:00 RBC 2.98 L MCV 85.0 MCHC 31.1 L RDW 16.4 H MPV 9.1 D Neutrophils % Y Lymphocytes % Y - RADIOLOGY Radiology Studies Ordered: Category Date Time Status CHEST X-RAY PORTABLE* [RAD] Stat Radiology 01/29/17 14:30 Completed <William Suárez - Last Filed: 01/29/17 15:35> - LABORATORY CBC & Chemistry Diagram: 01/29/17 15:00 01/29/17 15:00 - ADDITIONAL ORDERS Additional order review: Laboratory Results 01/29/17 01/29/17 15:00 14:30 VBG pH 7.37 POC VBG pCO2 33.5 L POC VBG pO2 22.2 L D Mixed VBG HCO3 18.8 L Crossmatch See Detail 01/29/17 15:00 RBC 2.98 L MCV 85.0 MCHC 31.1 L RDW 16.4 H MPV 9.1 D Neutrophils % Y Lymphocytes % Y - RADIOLOGY Radiograph Interpretation: 01/29/17 15:49 EXAM: CXR INTERPRETED BY: Dr. Barriga REVIEWED BY: Dr. Suárez IMPRESSION: No evidence of active pulmonary disease. <Marko Menendez - Last Filed: 01/29/17 17:10> Medical Decision Making - Medical Decision Making 01/29/17 15:[address] Wolf and discussed admitting the patient to the ICU under Dr. Rebecca Smith service. First call placed to Dr. Smith at 15:35. Awaiting call back. Case discussed with Dr. Smith at 15:52. Agreed to call Dr. Allen for admission. Case dicussed with Dr. Allen at 15:58. Will call Dr. Lemos. First call placed to Dr. Lemos at 16:01. Awaiting call back. Second call placed to Dr. Lemos at 16:30. Awaiting call back. Left voicemail for Dr. Lemos at 16:52. Case discussed with Dr. Lemos at 16:57. <Marko Menendez - Last Filed: 01/29/17 17:10> *DC/Admit/Observation/Transfer - Discharge Dispostion Admit: Yes <William Suárez - Last Filed: 01/29/17 15:35> - Attestations Scribe Attestion: 01/29/17 15:44 Documentation prepared by Mrako Menendez, acting as medical imaging technician for William Suárez DO. <Marko Menendez - Last Filed: 01/29/17 17:10> Diagnosis at time of Disposition: Tachycardia determined by examination of pulse Sepsis Qualifiers: Sepsis type: sepsis due to unspecified organism Qualified Code(s): A41.9 - Sepsis, unspecified organism UTI (urinary tract infection) Qualifiers: Urinary tract infection type: site unspecified Hematuria presence: with hematuria Qualified Code(s): N39.0 - Urinary tract infection, site not specified Hypotension Qualifiers: Hypotension type: other hypotension type Qualified Code(s): I95.89 - Other hypotension Profound anemia Qualifiers: Anemia type: unspecified type Qualified Code(s): D64.9 - Anemia, unspecified - Discharge Dispostion Condition at time of disposition: Improved - Referrals
[2017-01-29 15:38] LABS: ALBUMIN 1.9 g/dl (3.4-5.0); ANION GAP 12 (8-16); BILIRUBIN,TOTAL 0.3 mg/dL (0.2-1.0); CALCIUM 7.8 mg/dL (8.5-10.1); CO2 20 mmol/L (21-32); CREATININE 1.5 mg/dL (0.7-1.3); GLUCOSE,RANDOM 134 mg/dL (74-106); SGOT/AST 43 U/L (15-37); SGPT/ALT 26 U/L (12-78); TOT PROT 5.9 g/dl (6.4-8.2)
[2017-01-29 15:39] LABS: ACTIVATED PTT 27.8 SECONDS (26.9-34.4)
[2017-01-29] MEDS ORDERED: HYDROCORTISONE SOD SUCCINATE 2 ML ONE (15:39)
[2017-01-29 15:40] LABS: ALK PHOS 89 U/L (45-117); TROPONIN I 0.31 ng/ml (0.00-0.05)
[2017-01-29 15:56] LABS: URINE APPEARANCE CLOUDY; URINE BILIRUBIN NEGATIVE (NEGATIVE); URINE BLOOD 3+ (NEGATIVE); URINE COLOR DKYELLOW; URINE GLUCOSE (UA) NEGATIVE (NEGATIVE); URINE KETONE NEGATIVE (NEGATIVE); URINE NITRITE NEGATIVE (NEGATIVE); URINE UROBILINOGEN NEGATIVE mg/dL (0.2-1.0)
[2017-01-29 16:16] LABS: URINE LEUK ESTERASE 2+ (NEGATIVE); URINE PROTEIN 2+ (NEGATIVE)
[2017-01-29 16:21] LABS: URINE BACTERIA MANY /hpf (NONE SEEN); URINE MUCUS MANY; URINE RBC 1245 /hpf (0-3); URINE WBC 741 /hpf (3-5)
[2017-01-29 17:03] LABS: PLATELET ESTIMATE ADEQUATE (NORMAL); TOXIC GRANULATION FEW
[2017-01-29] MEDS ORDERED: PIPERACILLIN/TAZOB 3.375 GM/50 ML PRE-DOCKED IVPB ONE (17:28)
[2017-01-29 18:25] LABS: EOSINOPHIL 0.3 % (0-4.5); MCH 26.3 pg (25.7-33.7); MEAN CELL VOLUME 84.6 fl (80-96); MEAN PLT VOLUME 8.9 fl (7.5-11.1); NEUTROPHILS 94.3 % (42.8-82.8); PLATELET COUNT 265 K/MM3 (134-434); RDW 16.6 % (11.9-15.9); WHITE BLOOD COUNT 23.7 K/mm3 (4.0-10.0)
[2017-01-29 18:53] LABS: ALBUMIN 2.1 g/dl (3.4-5.0); ANION GAP 10 (8-16); BILIRUBIN,TOTAL 0.5 mg/dL (0.2-1.0); CALCIUM 8.3 mg/dL (8.5-10.1); CO2 23 mmol/L (21-32); CREATININE 1.4 mg/dL (0.7-1.3); GLUCOSE,RANDOM 176 mg/dL (74-106); SGOT/AST 54 U/L (15-37); SGPT/ALT 34 U/L (12-78); TOT PROT 6.2 g/dl (6.4-8.2)
[2017-01-29 18:54] LABS: ALK PHOS 121 U/L (45-117)
[2017-01-29] MEDS ORDERED: VASOPRESSIN 50 UNITS in SODIUM CHLORIDE 97.5 ML IVPB SCH (19:45)
--- NOTE | 2017-01-29 20:09 | CONSULT ---
Consult Consult Specialty:: Pulm/CCM Reason for Consultation:: sepsis, hypotension - History of Present Illness Chief Complaint: AMS History of Present Illness: This is a 76 yo man presenting form [facility] w/ PMH: dementia, systolic HF ( EF 40), mod/severe , DM, PAD c/b chronic ulcers, recent UTI (enterococcus faecalis) presented w/ chronic arndt at [place] who presented with AMS, tachycardia, tachypnea and hypotension found to UTI (+LE, WBC:741). Briefly, Mr Desirae Hutton was recently hospitalized at [facility] for CHF exacerbation and UTI. He was BIBIA w/ AMS, tachycardia and hypotension (60/30). EMS t/w IV fluids (NSx3). In the ED labs significant for WBC: 20, lactate 3.3 SCr 1.4 from baseline 1.4. Urine cloudy w/ +LE and WBC >700. He was treated w/ zosyn. He also received PRBC x1 for Hgb 7.9. Patient transferred to ICU for continued care. In ICU patient awake but not able to answer questions. HR 130, BP 80/60, RR 16 sat 96%. Lactate improved 1.5. Bedside ECHO done showing small pericardial effusion around LV w/ evidence of tamponade physiology, EF reduced ~40% per my read. 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 Cardio/Vascular: Yes: HTN, Hyperlipdemia Psych: Yes: Bipolar (Pt's daughter say he has dementia and ?manic depression) Endocrine: Yes: Diabetes Mellitus Additional Medical History: diabetic and PAD associated foot ulcers bilaterally - Past Surgical History Past Surgical History: Yes: None - Alcohol/Substance Use Hx Alcohol Use: No - Smoking History Smoking history: Unknown if ever smoked Have you smoked in the past 12 months: No - Social History Usual Living Arrangement: With Spouse ADL: Family Assistance History of Recent Travel: No Home Medications - Allergies Allergies/Adverse Reactions: Allergies Allergy/AdvReac Type Severity Reaction Status Date / Time No Known Allergies Allergy Verified 01/29/17 14:34 - Home Medications Home Medications: Ambulatory Orders Aspirin [ASA -] 81 mg PO DAILY 10/04/16 Cyanocobalamin (Vitamin B-12) [Vitamin B-12] 1,000 mcg PO DAILY 10/04/16 Donepezil HCl [Aricept -] 10 mg PO DAILY 10/04/16 Quetiapine Fumarate [Seroquel -] 25 mg PO HS 10/04/16 Metformin HCl [Metformin HCl ER] 1,000 mg PO BID 11/26/16 Metoprolol Succinate [Toprol XL -] 25 mg PO DAILY #30 tab 12/06/16 Collagenase Clostridium Hist. [Santyl] 1 applic TP DAILY #90 oint...g. 12/16/16 Acetaminophen [Tylenol .Regular Strength -] 650 mg PO Q6H PRN #0 tablet Clopidogrel Bisulfate [Plavix -] 75 mg PO DAILY tablet 01/17/17 Lisinopril [Prinivil] 2.5 mg PO DAILY tablet 01/17/17 Spironolactone [Aldactone -] 25 mg PO DAILY #0 tablet 01/17/17 Acetaminophen [Tylenol] 650 mg PO BID 01/29/17 Bacitracin - [Bacitracin Topical Ointment -] 1 applic TP DAILY 01/29/17 Insulin Sliding Scale [Novolog Vial Sliding Scale -] 1 vial SQ ACHS PRN Multivitamins [Tab-A-Vit -] 1 tab PO DAILY 01/29/17 Tamsulosin HCl [Flomax] 0.4 mg PO 1630 01/29/17 Vit A/Vitamin D3/E/Aloe V/Znox [Periguard Ointment] 0 gm TP TID 01/29/17 Family Disease History - Family Disease History Family History: Unable to Obtain Review of Systems Unable to obtain ROS, reason: dementia Physical Exam Vital Signs: Vital Signs Temperature 97.8 F 01/29/17 18:26 Pulse Rate 115 H 01/29/17 18:26 Respiratory Rate 24 01/29/17 18:26 Blood Pressure 76/53 01/29/17 18:26 O2 Sat by Pulse Oximetry (%) 100 01/29/17 17:44 Current Medications Acetaminophen (Tylenol -) 650 mg PO Q6H PRN PRN Reason: FEVER OR PAIN Aspirin (Ecotrin -) 81 mg PO DAILY LUCY Clopidogrel Bisulfate (Plavix -) 75 mg PO DAILY [facility] Heparin Sodium (Porcine) (Heparin -) 5,000 unit SQ TID LUCY Sodium Chloride (Normal Saline -) 1,000 mls @ 150 mls/hr IV ASDIR LUCY Piperacillin Sod/Tazobactam Sod (Zosyn 3.375gm Ivpb (Pre-Docked)) 3.375 gm IVPB Q8H-IV LUCY PRN Reason: Protocol Piperacillin Sod/Tazobactam Sod (Zosyn 3.375gm Ivpb (Pre-Docked)) 3.375 gm IVPB Q8H-IV LUCY Stop: 01/30/17 10:01 Constitutional: Yes: No Distress, Calm Eyes: Yes: EOM Intact Cardiovascular: Yes: Murmur, S1, S2 Respiratory: Yes: CTA Bilaterally Gastrointestinal: Yes: Normal Bowel Sounds, Soft Extremities: Yes: Other Edema: LLE: 1+, RLE: 1+ Wound/Incision: Yes: Clean/Dry Neurological: Yes: Confusion Labs: CBC, BMP 01/29/17 18:00 01/29/17 18:00 Urine Test Results Urine Color Dkyellow 01/29/17 15:06 Urine Appearance Cloudy 01/29/17 15:06 Urine pH 6.0 (5.0-8.0) 01/29/17 15:06 Ur Specific [place] 1.020 (1.005-1.025) 01/29/17 15:06 Urine Protein 2+ (NEGATIVE) H 01/29/17 15:06 Urine Glucose (UA) Negative (NEGATIVE) 01/29/17 15:06 Urine Ketones Negative (NEGATIVE) 01/29/17 15:06 Urine Blood 3+ (NEGATIVE) H 01/29/17 15:06 Urine Nitrite Negative (NEGATIVE) 01/29/17 15:06 Urine Bilirubin Negative (NEGATIVE) 01/29/17 15:06 Ur Leukocyte Esterase 2+ (NEGATIVE) H 01/29/17 15:06 Urine RBC 1245 /hpf (0-3) 01/29/17 15:06 Urine WBC 741 /hpf (3-5) 01/29/17 15:06 Urine Bacteria Many /hpf (NONE SEEN) 01/29/17 15:06 Urine Mucus Many 01/29/17 15:06 Laboratory Tests 01/29/17 01/29/17 15:00 18:00 Lactic Acid 3.3 H* 1.3 Imaging - Results Chest X-ray: Report Reviewed, Image Reviewed Problem List - Problems (1) Hypotension Code(s): I95.9 - HYPOTENSION, UNSPECIFIED Qualifiers: Hypotension type: other hypotension type Qualified Code(s): I95.89 - Other hypotension (2) Sepsis Code(s): A41.9 - SEPSIS, UNSPECIFIED ORGANISM Qualifiers: Sepsis type: sepsis due to unspecified organism Qualified Code(s): A41.9 - Sepsis, unspecified organism (3) UTI (urinary tract infection) Code(s): N39.0 - URINARY TRACT INFECTION, SITE NOT SPECIFIED Qualifiers: Urinary tract infection type: site unspecified Hematuria presence: with hematuria Qualified Code(s): N39.0 - Urinary tract infection, site not specified (4) CAD (coronary artery disease) Code(s): I25.10 - ATHSCL HEART DISEASE OF [place] CORONARY ARTERY W/O ANG PCTRS (5) Dementia Code(s): F03.90 - UNSPECIFIED DEMENTIA WITHOUT BEHAVIORAL DISTURBANCE Qualifiers: Dementia type: Alzheimer's disease Dementia behavioral disturbance: without behavioral disturbance (6) Open wound of left foot Code(s): S91.302A - UNSPECIFIED OPEN WOUND, LEFT FOOT, INITIAL ENCOUNTER Qualifiers: Encounter type: sequela Qualified Code(s): S91.302S - Unspecified open wound, left foot, sequela (7) NICHOLAS (acute kidney injury) Code(s): N17.9 - ACUTE KIDNEY FAILURE, UNSPECIFIED Assessment/Plan 76 yo man dementia, HF systolic dysfunction, , DM, PAD c/b chronic ulcers found to have sepsis r/t UTI c/b NICHOLAS (baseline SCr 0.7) likely prerenal r/t sepsis vs ATN from hypotension vs medications (ACEi) -IV fluids -ABX: broad coverage w/ zosyn given chronic arndt, narrow based on culture data -change arndt -urine lytes -O2 for sat >90% -renal dose medications -hold ACEi -hold BB given hypotension -hold diuresis -cont ASA and plavix -ISS, fingersticks -wound care -heparin prophylaxis Boerem ACNP Pulm/CCM CCT: 35
[2017-01-29] MEDS ORDERED: ACETAMINOPHEN 325 MG TABLET (FP) PO PRN (20:52)
[2017-01-29] MEDS: SODIUM CHLORIDE 1,000 ML IV SCH (21:24)
[2017-01-29] MEDS: HEPARIN NA (PORCINE) 5,000 UNITS/ML 1ML VIAL SQ SCH (21:24)
[2017-01-29] MEDS: INSULIN SLIDING SCALE (NOVOLOG) 1 VIAL SQ SCH (21:30)
--- NOTE | 2017-01-30 01:15 | HP ---
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 Cardiovascular: Yes: HTN, Hyperlipdemia Heme/Onc: Yes: Anemia Psych: Yes: Bipolar (Pt's daughter say he has dementia and ?manic depression) Endocrine: Yes: Diabetes Mellitus - Past Surgical History Past Surgical History: Yes: None - Smoking History Smoking history: Unknown if ever smoked Have you smoked in the past 12 months: No - Alcohol/Substance Use Hx Alcohol Use: No - Social History ADL: Family Assistance History of Recent Travel: No Home Medications - Allergies Allergies/Adverse Reactions: Allergies Allergy/AdvReac Type Severity Reaction Status Date / Time No Known Allergies Allergy Verified 01/29/17 14:34 - Home Medications Home Medications: Ambulatory Orders Aspirin [ASA -] 81 mg PO DAILY 10/04/16 Cyanocobalamin (Vitamin B-12) [Vitamin B-12] 1,000 mcg PO DAILY 10/04/16 Donepezil HCl [Aricept -] 10 mg PO DAILY 10/04/16 Quetiapine Fumarate [Seroquel -] 25 mg PO HS 10/04/16 Metformin HCl [Metformin HCl ER] 1,000 mg PO BID 11/26/16 Metoprolol Succinate [Toprol XL -] 25 mg PO DAILY #30 tab 12/06/16 Collagenase Clostridium Hist. [Santyl] 1 applic TP DAILY #90 oint...g. 12/16/16 Acetaminophen [Tylenol .Regular Strength -] 650 mg PO Q6H PRN #0 tablet Clopidogrel Bisulfate [Plavix -] 75 mg PO DAILY tablet 01/17/17 Lisinopril [Prinivil] 2.5 mg PO DAILY tablet 01/17/17 Spironolactone [Aldactone -] 25 mg PO DAILY #0 tablet 01/17/17 Acetaminophen [Tylenol] 650 mg PO BID 01/29/17 Bacitracin - [Bacitracin Topical Ointment -] 1 applic TP DAILY 01/29/17 Insulin Sliding Scale [Novolog Vial Sliding Scale -] 1 vial SQ ACHS PRN Multivitamins [Tab-A-Vit -] 1 tab PO DAILY 01/29/17 Tamsulosin HCl [Flomax] 0.4 mg PO 1630 01/29/17 Vit A/Vitamin D3/E/Aloe V/Znox [Periguard Ointment] 0 gm TP TID 01/29/17 Physical Examination Vital Signs: Vital Signs Temperature 97.8 F 01/29/17 18:26 Pulse Rate 129 H 01/30/17 00:00 Respiratory Rate 18 01/30/17 00:00 Blood Pressure 83/62 01/30/17 00:00 O2 Sat by Pulse Oximetry (%) 100 01/29/17 21:00 Labs: CBC, BMP 01/29/17 18:00 01/29/17 18:00
[2017-01-30] MEDS ORDERED: PIPERACILLIN/TAZOB 3.375 GM/50 ML PRE-DOCKED IVPB SCH (02:00)
[2017-01-30] MEDS: PIPERACILLIN/TAZOB 3.375 GM/50 ML PRE-DOCKED IVPB SCH ×2 (02:19→09:15)
[2017-01-30 06:08] LABS: MCH 26.9 pg (25.7-33.7); MCHC 31.9 g/dl (32.0-35.9); MEAN CELL VOLUME 84.3 fl (80-96); MEAN PLT VOLUME 9.7 fl (7.5-11.1); PLATELET COUNT 271 K/MM3 (134-434); RDW 16.2 % (11.9-15.9); WHITE BLOOD COUNT 23.6 K/mm3 (4.0-10.0)
[2017-01-30] MEDS: HEPARIN NA (PORCINE) 5,000 UNITS/ML 1ML VIAL SQ SCH ×3 (06:36→21:42)
[2017-01-30] MEDS: INSULIN SLIDING SCALE (NOVOLOG) 1 VIAL SQ SCH ×4 (06:37→22:26)
[2017-01-30 06:39] LABS: ALBUMIN 1.9 g/dl (3.4-5.0); ANION GAP 9 (8-16); BILIRUBIN,TOTAL 0.7 mg/dL (0.2-1.0); CALCIUM 8.3 mg/dL (8.5-10.1); CO2 21 mmol/L (21-32); CREATININE 1.2 mg/dL (0.7-1.3); GLUCOSE,RANDOM 184 mg/dL (74-106); SGOT/AST 30 U/L (15-37); SGPT/ALT 28 U/L (12-78)
[2017-01-30 06:40] LABS: ALK PHOS 109 U/L (45-117)
[2017-01-30 08:48] LABS: TROPONIN I 0.33 ng/ml (0.00-0.05)
[2017-01-30] MEDS ORDERED: PT OWN MED DRAWER 7, Y5N ONE ×2 (09:06→15:36)
[2017-01-30] MEDS: DONEPEZIL HCL 10 MG TABLET (FP) PO SCH (09:14)
[2017-01-30] MEDS: MULTIVITAMINS (DAILY MVI) TABLET (FP) PO SCH (09:14)
[2017-01-30] MEDS: CLOPIDOGREL BISULFATE 75 MG TABLET (FP) PO SCH (09:14)
[2017-01-30] MEDS: BACITRACIN 15 GM TUBE TOPICAL OINTMENT TP SCH (09:14)
--- NOTE | 2017-01-30 09:32 | PN ---
Progress Note (short form) - Note Progress Note: ID Full note dictated Selected Entries 01/30/17 01/30/17 06:00 08:00 Temperature 97.2 F L Pulse Rate 134 H Respiratory 22 Rate Blood Pressure 100/86 Microbiology 01/29/17 15:06 Blood - Peripheral Venous Blood Culture - Preliminary Pending Organism 01/29/17 14:30 Blood - Peripheral Venous Blood Culture - Preliminary Pending Organism Laboratory Tests 01/29/17 01/29/17 01/30/17 15:00 15:06 05:05 WBC 23.6 H Hgb 9.1 L D Hct 28.4 L Plt Count 271 INR 1.44 H BUN Creatinine Creat Clearance w eGFR ALT Alkaline Phosphatase Creatine Kinase Ur Leukocyte Esterase 2+ H Urine RBC 1245 Urine WBC 741 Urine Bacteria Many 01/30/17 05:05 WBC Hgb Hct Plt Count INR BUN 56 H Creatinine 1.2 Creat Clearance w eGFR 58.86 ALT 28 Alkaline Phosphatase 109 Creatine Kinase 103 Ur Leukocyte Esterase Urine RBC Urine WBC Urine Bacteria Assessment Sepsis syndrome with GNB bacteremia UTI source Plan Meropenem pending final cultures [place] REYES Problem List - Problems (1) Sepsis Code(s): A41.9 - SEPSIS, UNSPECIFIED ORGANISM Qualifiers: Sepsis type: sepsis due to unspecified organism Qualified Code(s): A41.9 - Sepsis, unspecified organism (2) UTI (urinary tract infection) Code(s): N39.0 - URINARY TRACT INFECTION, SITE NOT SPECIFIED Qualifiers: Urinary tract infection type: site unspecified Hematuria presence: with hematuria Qualified Code(s): N39.0 - Urinary tract infection, site not specified (3) Gram-negative bacteremia Code(s): R78.81 - BACTEREMIA
[2017-01-30] MEDS ORDERED: METOPROLOL SUCCINATE 25 MG TAB.SR.24H (FP) PO SCH (10:00)
[2017-01-30] MEDS ORDERED: CLOPIDOGREL BISULFATE 75 MG TABLET (FP) PO SCH (10:00)
[2017-01-30] MEDS ORDERED: ASPIRIN COATED 81 MG TABLET.EC PO SCH (10:00)
[2017-01-30] MEDS ORDERED: MEROPENEM 500 MG VIAL (RESTRICTED TO ID) IVPB SCH (10:00)
[2017-01-30] MEDS ORDERED: ASPIRIN 81 MG CHEWABLE TABLETS PO SCH (10:00)
[2017-01-30] MEDS ORDERED: METOPROLOL TARTRATE 5 MG/5 ML VIAL IVPUSH PRN (10:04)
[2017-01-30] MEDS: SODIUM CHLORIDE 1,000 ML IV SCH (10:47)
[2017-01-30] MEDS: CYANOCOBALAMIN 1,000 MCG TABLET (FP) PO SCH (10:47)
[2017-01-30] MEDS: COLLAGENASE CLOSTRIDIUM HIST. 30 GRAMS TUBE TP SCH (10:47)
[2017-01-30] MEDS: MEROPENEM 500 MG in DEXTROSE 5%-WATER - 100 ML IVPB SCH ×2 (11:25→17:12)
--- NOTE | 2017-01-30 11:50 | PN ---
Teaching Attending Note Name of Resident: Linus Leong ATTENDING PHYSICIAN STATEMENT I saw and evaluated the patient. I reviewed the resident's note and discussed the case with the resident. I agree with the resident's findings and plan as documented. SUBJECTIVE: Patient seen and examined in the ICU. Lethargic but arousable. Rapid AFib. Hemodynamics improved after volume resuscitation. Intake & Output 01/27/17 01/28/17 01/29/17 01/30/17 23:59 23:59 23:59 23:59 Intake Total 800 Output Total 750 300 Balance 50 -300 Weight 148 lb 0.011 oz 148 lb Last Vital Signs Temp Pulse Resp BP Pulse Ox 97.2 F L 130 H 22 96/66 99 01/30/17 06:00 01/30/17 11:34 01/30/17 08:00 01/30/17 10:46 01/30/17 11:34 Active Medications Acetaminophen (Tylenol -) 650 mg PO Q6H PRN PRN Reason: FEVER OR PAIN Aspirin (Ecotrin -) 81 mg PO DAILY [facility] Last Admin: 01/30/17 09:14 Dose: 81 mg Aspirin (Asa -) 81 mg PO DAILY [facility] Bacitracin (Bacitracin -) 1 applic TP DAILY [facility] Last Admin: 01/30/17 09:14 Dose: 1 applic Clopidogrel Bisulfate (Plavix -) 75 mg PO DAILY [facility] Last Admin: 01/30/17 09:14 Dose: 75 mg Collagenase (Santyl -) 1 applic TP DAILY [facility] Last Admin: 01/30/17 10:47 Dose: 1 applic Cyanocobalamin (Vitamin B12 -) 1,000 mcg PO DAILY [facility] Last Admin: 01/30/17 10:47 Dose: 1,000 mcg Donepezil HCl (Aricept -) 10 mg PO DAILY [facility] Last Admin: 01/30/17 09:14 Dose: 10 mg Heparin Sodium (Porcine) (Heparin -) 5,000 unit SQ TID [facility] Last Admin: 01/30/17 06:36 Dose: 5,000 unit Sodium Chloride (Normal Saline -) 1,000 mls @ 150 mls/hr IV ASDIR [facility] Last Admin: 01/30/17 10:47 Dose: 150 mls/hr Meropenem 500 mg/ Dextrose 100 mls @ 200 mls/hr IVPB Q8H-IV [facility] Last Admin: 01/30/17 11:25 Dose: 200 mls/hr Insulin Aspart (Novolog Vial Sliding Scale -) 1 vial SQ ACHS LUCY PRN Reason: Protocol Last Admin: 01/30/17 11:25 Dose: 2 unit Metoprolol Succinate (Toprol Xl -) 25 mg PO DAILY [facility] Last Admin: 01/30/17 09:14 Dose: 25 mg Metoprolol Tartrate (Lopressor Injection -) 5 mg IVPUSH Q4H PRN PRN Reason: HYPERTENSION Last Admin: 01/30/17 10:46 Dose: 5 mg Metoprolol Tartrate (Lopressor -) 25 mg PO DAILY [facility] Multivitamins/Minerals/Vitamin C (Tab-A-Vit -) 1 tab PO DAILY [facility] Last Admin: 01/30/17 09:14 Dose: 1 tab Constitutional: Yes: Lethargic, NAD Eyes: Yes: EOM Intact Cardiovascular: Yes: Murmur, S1, S2 Respiratory: Yes: Scattered rhonchi Gastrointestinal: Yes: Normal Bowel Sounds, Soft Extremities: Yes: Other Edema: LLE: 1+, RLE: 1+ Wound/Incision: Yes: Clean/Dry Neurological: Yes: Lethargic/Confusion Labs: Laboratory Results - last 24 hr 01/29/17 01/29/17 01/29/17 14:30 15:00 15:00 WBC 20.6 H D RBC 2.98 L Hgb 7.9 L D Hct 25.3 L MCV 85.0 MCH 26.4 MCHC 31.1 L RDW 16.4 H Plt Count 266 D MPV 9.1 D Neutrophils % 83.0 H D Lymphocytes % 4.0 L D Monocytes % 4.0 Eosinophils % Basophils % Band Neutrophils 9.0 Differential Comment Manual diff done Toxic Granulation Few Platelet Estimate Adequate Platelet Comment Few large plts Morphology Comment Slide scanned INR 1.44 H PTT (Actin FS) 27.8 D VBG pH 7.37 POC VBG pCO2 33.5 L POC VBG pO2 22.2 L D Mixed VBG HCO3 18.8 L Sodium Potassium Chloride Carbon Dioxide Anion Gap BUN Creatinine Creat Clearance w eGFR POC Glucometer Random Glucose Lactic Acid Calcium Total Bilirubin AST ALT Alkaline Phosphatase Creatine Kinase Creatine Kinase Index CK-MB (CK-2) CK-MB (CK-2) Rel Index Troponin I Total Protein Albumin Urine Color Urine Appearance Urine pH Ur Specific [place] Urine Protein Urine Glucose (UA) Urine Ketones Urine Blood Urine Nitrite Urine Bilirubin Urine Urobilinogen Ur Leukocyte Esterase Urine RBC Urine WBC Urine Bacteria Urine Mucus Ur Random Sodium Ur Random Potassium Ur Random Chloride Ur Random Urea Nitrogn Urine Creatinine Blood Type Antibody Screen Crossmatch 01/29/17 01/29/17 01/29/17 15:00 15:00 15:00 WBC RBC Hgb Hct MCV MCH MCHC RDW Plt Count MPV Neutrophils % Lymphocytes % Monocytes % Eosinophils % Basophils % Band Neutrophils Differential Comment Toxic Granulation Platelet Estimate Platelet Comment Morphology Comment INR PTT (Actin FS) VBG pH POC VBG pCO2 POC VBG pO2 Mixed VBG HCO3 Sodium 144 Potassium 4.3 Chloride 112 H D Carbon Dioxide 20 L D Anion Gap 12 BUN 58 H D Creatinine 1.5 H D Creat Clearance w eGFR 45.50 POC Glucometer Random Glucose 134 H Lactic Acid 3.3 H* Calcium 7.8 L Total Bilirubin 0.3 D AST 43 H D ALT 26 D Alkaline Phosphatase 89 D Creatine Kinase 179 D Creatine Kinase Index 0.8 CK-MB (CK-2) 1.353 CK-MB (CK-2) Rel Index Troponin I 0.31 H D Total Protein 5.9 L Albumin 1.9 L D Urine Color Urine Appearance Urine pH Ur Specific [place] Urine Protein Urine Glucose (UA) Urine Ketones Urine Blood Urine Nitrite Urine Bilirubin Urine Urobilinogen Ur Leukocyte Esterase Urine RBC Urine WBC Urine Bacteria Urine Mucus Ur Random Sodium Ur Random Potassium Ur Random Chloride Ur Random Urea Nitrogn Urine Creatinine Blood Type AB NEGATIVE Antibody Screen Negative Crossmatch See Detail 01/29/17 01/29/17 01/29/17 15:00 15:06 18:00 WBC 23.7 H RBC 3.00 L Hgb 7.9 L Hct 25.4 L MCV 84.6 MCH 26.3 MCHC 31.0 L RDW 16.6 H Plt Count 265 MPV 8.9 Neutrophils % 94.3 H Lymphocytes % 2.5 L D Monocytes % 2.9 L Eosinophils % 0.3 D Basophils % 0.0 Band Neutrophils Differential Comment Toxic Granulation Platelet Estimate Platelet Comment Morphology Comment INR PTT (Actin FS) VBG pH POC VBG pCO2 POC VBG pO2 Mixed VBG HCO3 Sodium Potassium Chloride Carbon Dioxide Anion Gap BUN Creatinine Creat Clearance w eGFR POC Glucometer Random Glucose Lactic Acid Calcium Total Bilirubin AST ALT Alkaline Phosphatase Creatine Kinase Creatine Kinase Index CK-MB (CK-2) CK-MB (CK-2) Rel Index Cancelled Troponin I Total Protein Albumin Urine Color Dkyellow Urine Appearance Cloudy Urine pH 6.0 Ur Specific [place] 1.020 Urine Protein 2+ H Urine Glucose (UA) Negative Urine Ketones Negative Urine Blood 3+ H Urine Nitrite Negative Urine Bilirubin Negative Urine Urobilinogen Negative Ur Leukocyte Esterase 2+ H Urine RBC 1245 Urine WBC 741 Urine Bacteria Many Urine Mucus Many Ur Random Sodium Ur Random Potassium Ur Random Chloride Ur Random Urea Nitrogn Urine Creatinine Blood Type Antibody Screen Crossmatch 01/29/17 01/29/17 01/29/17 18:00 18:00 21:28 WBC RBC Hgb Hct MCV MCH MCHC RDW Plt Count MPV Neutrophils % Lymphocytes % Monocytes % Eosinophils % Basophils % Band Neutrophils Differential Comment Toxic Granulation Platelet Estimate Platelet Comment Morphology Comment INR PTT (Actin FS) VBG pH POC VBG pCO2 POC VBG pO2 Mixed VBG HCO3 Sodium 142 Potassium 4.5 Chloride 109 H Carbon Dioxide 23 Anion Gap 10 BUN 61 H Creatinine 1.4 H Creat Clearance w eGFR 49.27 POC Glucometer 211.95024 Random Glucose 176 H D Lactic Acid 1.3 Calcium 8.3 L Total Bilirubin 0.5 D AST 54 H D ALT 34 D Alkaline Phosphatase 121 H D Creatine Kinase Creatine Kinase Index CK-MB (CK-2) CK-MB (CK-2) Rel Index Troponin I Total Protein 6.2 L Albumin 2.1 L Urine Color Urine Appearance Urine pH Ur Specific [place] Urine Protein Urine Glucose (UA) Urine Ketones Urine Blood Urine Nitrite Urine Bilirubin Urine Urobilinogen Ur Leukocyte Esterase Urine RBC Urine WBC Urine Bacteria Urine Mucus Ur Random Sodium Ur Random Potassium Ur Random Chloride Ur Random Urea Nitrogn Urine Creatinine Blood Type Antibody Screen Crossmatch 01/29/17 01/29/17 01/29/17 23:50 23:50 23:50 WBC RBC Hgb Hct MCV MCH MCHC RDW Plt Count MPV Neutrophils % Lymphocytes % Monocytes % Eosinophils % Basophils % Band Neutrophils Differential Comment Toxic Granulation Platelet Estimate Platelet Comment Morphology Comment INR PTT (Actin FS) VBG pH POC VBG pCO2 POC VBG pO2 Mixed VBG HCO3 Sodium Potassium Chloride Carbon Dioxide Anion Gap BUN Creatinine Creat Clearance w eGFR POC Glucometer Random Glucose Lactic Acid Calcium Total Bilirubin AST ALT Alkaline Phosphatase Creatine Kinase Creatine Kinase Index CK-MB (CK-2) CK-MB (CK-2) Rel Index Troponin I Total Protein Albumin Urine Color Urine Appearance Urine pH Ur Specific [place] Urine Protein Urine Glucose (UA) Urine Ketones Urine Blood Urine Nitrite Urine Bilirubin Urine Urobilinogen Ur Leukocyte Esterase Urine RBC Urine WBC Urine Bacteria Urine Mucus Ur Random Sodium 41 Ur Random Potassium 50.0 Ur Random Chloride 62 Ur Random Urea Nitrogn 1228 Urine Creatinine 73.4 Blood Type Antibody Screen Crossmatch 01/30/17 01/30/17 01/30/17 05:05 05:05 06:28 WBC 23.6 H RBC 3.37 L Hgb 9.1 L D Hct 28.4 L MCV 84.3 MCH 26.9 MCHC 31.9 L RDW 16.2 H Plt Count 271 MPV 9.7 Neutrophils % 77.0 Lymphocytes % 5.0 L D Monocytes % 17.0 H D Eosinophils % 1.0 D Basophils % Band Neutrophils Differential Comment Toxic Granulation Platelet Estimate Platelet Comment Morphology Comment INR PTT (Actin FS) VBG pH POC VBG pCO2 POC VBG pO2 Mixed VBG HCO3 Sodium 142 Potassium 4.4 Chloride 112 H Carbon Dioxide 21 Anion Gap 9 BUN 56 H Creatinine 1.2 Creat Clearance w eGFR 58.86 POC Glucometer 202.85603 Random Glucose 184 H Lactic Acid Calcium 8.3 L Total Bilirubin 0.7 D AST 30 D ALT 28 Alkaline Phosphatase 109 Creatine Kinase 103 Creatine Kinase Index CK-MB (CK-2) CK-MB (CK-2) Rel Index Troponin I 0.33 H Total Protein 6.0 L Albumin 1.9 L Urine Color Urine Appearance Urine pH Ur Specific [place] Urine Protein Urine Glucose (UA) Urine Ketones Urine Blood Urine Nitrite Urine Bilirubin Urine Urobilinogen Ur Leukocyte Esterase Urine RBC Urine WBC Urine Bacteria Urine Mucus Ur Random Sodium Ur Random Potassium Ur Random Chloride Ur Random Urea Nitrogn Urine Creatinine Blood Type Antibody Screen Crossmatch 01/30/17 01/30/17 08:46 11:08 WBC RBC Hgb Hct MCV MCH MCHC RDW Plt Count MPV Neutrophils % Lymphocytes % Monocytes % Eosinophils % Basophils % Band Neutrophils Differential Comment Toxic Granulation Platelet Estimate Platelet Comment Morphology Comment INR PTT (Actin FS) VBG pH POC VBG pCO2 POC VBG pO2 Mixed VBG HCO3 Sodium Potassium Chloride Carbon Dioxide Anion Gap BUN Creatinine Creat Clearance w eGFR POC Glucometer 206.95886 Random Glucose Lactic Acid Calcium Total Bilirubin AST ALT Alkaline Phosphatase Creatine Kinase Cancelled Creatine Kinase Index CK-MB (CK-2) CK-MB (CK-2) Rel Index Troponin I Cancelled Total Protein Albumin Urine Color Urine Appearance Urine pH Ur Specific [place] Urine Protein Urine Glucose (UA) Urine Ketones Urine Blood Urine Nitrite Urine Bilirubin Urine Urobilinogen Ur Leukocyte Esterase Urine RBC Urine WBC Urine Bacteria Urine Mucus Ur Random Sodium Ur Random Potassium Ur Random Chloride Ur Random Urea Nitrogn Urine Creatinine Blood Type Antibody Screen Crossmatch Problem List - Problems (1) Hypotension Code(s): I95.9 - HYPOTENSION, UNSPECIFIED Qualifiers: Hypotension type: other hypotension type Qualified Code(s): I95.89 - Other hypotension (2) Sepsis Code(s): A41.9 - SEPSIS, UNSPECIFIED ORGANISM Qualifiers: Sepsis type: sepsis due to unspecified organism Qualified Code(s): A41.9 - Sepsis, unspecified organism (3) UTI (urinary tract infection) Code(s): N39.0 - URINARY TRACT INFECTION, SITE NOT SPECIFIED Qualifiers: Urinary tract infection type: site unspecified Hematuria presence: with hematuria Qualified Code(s): N39.0 - Urinary tract infection, site not specified (4) CAD (coronary artery disease) Code(s): I25.10 - ATHSCL HEART DISEASE OF [place] CORONARY ARTERY W/O ANG PCTRS (5) Dementia Code(s): F03.90 - UNSPECIFIED DEMENTIA WITHOUT BEHAVIORAL DISTURBANCE Qualifiers: Dementia type: Alzheimer's disease Dementia behavioral disturbance: without behavioral disturbance (6) Open wound of left foot Code(s): S91.302A - UNSPECIFIED OPEN WOUND, LEFT FOOT, INITIAL ENCOUNTER Qualifiers: Encounter type: sequela Qualified Code(s): S91.302S - Unspecified open wound, left foot, sequela (7) NICHOLAS (acute kidney injury) Code(s): N17.9 - ACUTE KIDNEY FAILURE, UNSPECIFIED Assessment/Plan Sepsis due to likely UTI Dementia CHF / Systolic dysfunction DM PAD Chronic foot ulcers/gangrene NICHOLAS (baseline SCr 0.7) ABX per ID O2 as needed Aspiration precautions Follow cultures Rate control ASA and Plavix Follow BGM Local wound care VTE prophylaxis Dr Qureshi Critical Care Total Critical Care Time (in minutes): 35 Critical Care Statement: The care of this patient involved high complexity decision making to prevent further life threatening deterioration of the patient 's condition and/or to evalute & treat vital organ system(s) failure or risk of failure.
[2017-01-30] MEDS: METOPROLOL TARTRATE 25 MG TABLET (FP) PO SCH ×3 (11:55→22:04)
[2017-01-30] MEDS: ASPIRIN 81 MG CHEWABLE TABLETS PO SCH ×2 (11:55→12:15)
--- NOTE | 2017-01-30 12:23 | PN ---
Physical Exam: SUBJECTIVE: Patient is demented at baseline and unable to follow command or answer questions. Per nurse, he had no acute event overnight since admission to ICU. OBJECTIVE: Vital Signs Period Temp Pulse Resp BP Sys/Mcdaniel Pulse Ox Last 24 Hr 97.2 F-99.8 F 113-148 15-27 76-100/51-86 94-100 GENERAL: The patient is awake, alert, confused, in no apparent acute distress. LUNGS: CTAB HEART: Tachycardic, S1, S2 present without murmur, rub or gallop. ABDOMEN: Soft, nontender, nondistended, normoactive bowel sounds, no guarding, no rebound EXTREMITIES: Dry gangrene in L big toe, R 1st and 3rd digits CBCD WBC 23.6 K/mm3 (4.0-10.0) H 01/30/17 05:05 RBC 3.37 M/mm3 (4.00-5.60) L 01/30/17 05:05 Hgb 9.1 GM/dL (11.7-16.9) L D 01/30/17 05:05 Hct 28.4 % (35.4-49) L 01/30/17 05:05 MCV 84.3 fl (80-96) 01/30/17 05:05 MCHC 31.9 g/dl (32.0-35.9) L 01/30/17 05:05 RDW 16.2 % (11.9-15.9) H 01/30/17 05:05 Plt Count 271 K/MM3 (134-434) 01/30/17 05:05 MPV 9.7 fl (7.5-11.1) 01/30/17 05:05 CMP Sodium 142 mmol/L (136-145) 01/30/17 05:05 Potassium 4.4 mmol/L (3.5-5.1) 01/30/17 05:05 Chloride 112 mmol/L (98-107) H 01/30/17 05:05 Carbon Dioxide 21 mmol/L (21-32) 01/30/17 05:05 Anion Gap 9 (8-16) 01/30/17 05:05 BUN 56 mg/dL (7-18) H 01/30/17 05:05 Creatinine 1.2 mg/dL (0.7-1.3) 01/30/17 05:05 Creat Clearance w eGFR 58.86 (>60) 01/30/17 05:05 Calcium 8.3 mg/dL (8.5-10.1) L 01/30/17 05:05 Total Bilirubin 0.7 mg/dL (0.2-1.0) D 01/30/17 05:05 AST 30 U/L (15-37) D 01/30/17 05:05 ALT 28 U/L (12-78) 01/30/17 05:05 Alkaline Phosphatase 109 U/L (45-117) 01/30/17 05:05 Total Protein 6.0 g/dl (6.4-8.2) L 01/30/17 05:05 Albumin 1.9 g/dl (3.4-5.0) L 01/30/17 05:05 Intake & Output 01/27/17 01/28/17 01/29/17 01/30/17 23:59 23:59 23:59 23:59 Intake Total 800 Output Total 750 300 Balance 50 -300 Weight 67.132 kg 67.132 kg Urine Test Results Urine Color Dkyellow 01/29/17 15:06 Urine Appearance Cloudy 01/29/17 15:06 Urine pH 6.0 (5.0-8.0) 01/29/17 15:06 Ur Specific Hendricks 1.020 (1.005-1.025) 01/29/17 15:06 Urine Protein 2+ (NEGATIVE) H 01/29/17 15:06 Urine Glucose (UA) Negative (NEGATIVE) 01/29/17 15:06 Urine Ketones Negative (NEGATIVE) 01/29/17 15:06 Urine Blood 3+ (NEGATIVE) H 01/29/17 15:06 Urine Nitrite Negative (NEGATIVE) 01/29/17 15:06 Urine Bilirubin Negative (NEGATIVE) 01/29/17 15:06 Ur Leukocyte Esterase 2+ (NEGATIVE) H 01/29/17 15:06 Urine RBC 1245 /hpf (0-3) 01/29/17 15:06 Urine WBC 741 /hpf (3-5) 01/29/17 15:06 Urine Bacteria Many /hpf (NONE SEEN) 01/29/17 15:06 Urine Mucus Many 01/29/17 15:06 Microbiology 01/29/17 15:06 Blood Culture - Preliminary Blood - Peripheral Venous Pending Organism 01/29/17 14:30 Blood Culture - Preliminary Blood - Peripheral Venous Pending Organism ASSESSMENT/PLAN: 76 yo M with Alzheimer's disease, a-fib, NSVT, CAD s/p STEMI and NSTEMI, HTN, DMII, HLD, PAD s/p tibial artery angioplasty admitted to ICU for severe sepsis Severe sepsis - 2/2 UTI - Improving - Gentle hydration due to poor EF - Pending culture and cont. prophylatic meropenem A-fib, ?new onset - Rate not controlled - On plavix and asa - Patient refused PO toprolol - Unresponsive to IV lopressor - Cardiology onboard Left heel gangrene -Cont. wound care Normocytic anemia - s/p 1 PRBC with appropriate response - Cont. to monitor CBC NICHOLAS - Resolved HTN - Hold GIO-i and aldactone for hypotension DM - BGM and ISS FEN - Decrease rate to 75cc/hr - Cont. to monitor lytes - NPO for now, may need NG tube Prophylaxis - DVT: heparin - GI: not indicated Disposition - Cont. to monitor Code status - Full Linus Leong, ICU resident PGY-2 Pager: [phone] Visit type - Emergency Visit Emergency Visit: No - New Patient This patient is new to me today: Yes Date on this admission: 01/30/17 - Critical Care Critical Care patient: Yes Total Critical Care Time (in minutes): 30 Critical Care Statement: The care of this patient involved high complexity decision making to prevent further life threatening deterioration of the patient 's condition and/or to evalute & treat vital organ system(s) failure or risk of failure.
[2017-01-30] MEDS ORDERED: SODIUM CHLORIDE 1,000 ML IV SCH (12:36)
[2017-01-30] MEDS: ACETAMINOPHEN 1000 MG/100 ML VIAL (NON FORMULARY) IVPB PRN ×2 (12:47→21:43)
[2017-01-30] MEDS: METOPROLOL TARTRATE 5 MG/5 ML VIAL IVPUSH PRN ×7 (13:52→15:40)
--- NOTE | 2017-01-30 14:53 | CONS ---
INFECTIOUS DISEASE CONSULTATION DATE OF CONSULTATION: DATE OF DICTATION: 01/30/2017 This is a 76-year-old male from [facility], who I am asked to see for evaluation of sepsis syndrome. The patient has multiple comorbidities including dementia, heart failure, diabetes mellitus, and recent urinary tract infections with Enterococcus faecalis. He has a chronic [place] at the intermediate and has had multiple admissions to the hospital in the past including recently. He presents now with what was described in the notes as altered mental status, superimposed on his baseline dementia, along with tachycardia, tachypnea, and hypotension. He was thought to have had a urinary tract infection on admission now based on his urinalysis. He was treated with EMS with intravenous fluids, 3 L of normal saline. Upon arrival, his lactic acid was 3.3, his white count 20,000, and his creatinine 1.4. The urine was grossly cloudy with many white cells, and he received piperacillin/tazobactam and a unit of packed red blood cells for a hemoglobin of 7.9. He is awake but unable to answer questions appropriately. At the current time, he is afebrile and not requiring any pressor support or ventilator support. PAST MEDICAL HISTORY: As noted above. MEDICATIONS: Aspirin, Seroquel, Aricept, metoprolol, metformin, Plavix, lisinopril, spironolactone, insulin, tamsulosin. ALLERGIES: None known. SOCIAL HISTORY: . Unknown if ever smoked. No history of alcohol or substance abuse. FAMILY HISTORY: Unobtainable. REVIEW OF SYSTEMS: Respiratory: Tachypnea but no cough or hemoptysis. Cardiac: Tachycardia. No chest pain, palpitations, syncope. Gastrointestinal: No abdominal pain, vomiting, diarrhea, blood per rectum, or hematemesis. Genitourinary: Chronic indwelling Cordova catheter. No gross hematuria noted. Neuromuscular: History of dementia. No seizure activity, headaches. PHYSICAL EXAMINATION: Vital Signs: The temperature was 97.2, pulse 134, blood pressure 130/86, respirations 22. General: He was alert but unable to answer questions appropriately. Neck: Supple without adenopathy. Lungs: Clear to percussion and auscultation. Heart: S1, S2. Tachycardic. Positive murmur. Abdomen: Positive bowel sounds. Soft, nontender. No organomegaly. Extremities: No clubbing, cyanosis. Bilateral 1+ edema with dry gangrene of several toes on both feet. LABORATORY DATA: The BUN is 20.6, hemoglobin 7.9, platelets 266, left shift with 9% bands. INR 1.44. BUN 56, creatinine 1.2. Lactic acid 3.3. Urinalysis 2+ leukocyte esterase, 1200 RBCs, 700 WBCs, many bacteria. ASSESSMENT: A 76-year-old male with multiple medical problems, presents now with sepsis syndrome, urinary tract source. Urinalysis consistent with urinary tract infection with now finding of gram-negative mae in both blood culture sets, anaerobic bottle. No obvious evidence of intraabdominal infection or pneumonia. PLAN: Given his frequent hospitalizations, the possibility of a resistant gram-negative mae infection considered. For now, we will treat him with meropenem adjusted for creatinine clearance, pending final cultures. Case was discussed with the house staff. Forty minutes critical care time provided in the complete evaluation of a patient from ER to current. BENTIO CRANDALL M.D. PHILIP/[id number]
--- NOTE | 2017-01-30 16:34 | EKG ---
Test Reason : Blood Pressure : / mmHG Vent. Rate : 128 BPM Atrial Rate : 127 BPM P-R Int : 000 ms QRS Dur : 096 ms QT Int : 352 ms P-R-T Axes : 000 087 -87 degrees QTc Int : 513 ms POOR DATA QUALITY, INTERPRETATION MAY BE ADVERSELY AFFECTED ATRIAL FIBRILLATION WITH RAPID VENTRICULAR RESPONSE ABNORMAL ECG WHEN COMPARED WITH ECG OF 09-JAN-2017 16:53, CRITERIA FOR LATERAL INFARCT ARE NO LONGER PRESENT Confirmed by EROS DOWD MD ([id number]) on 01/30/2017 4:34:22 PM Referred By: Confirmed By:EROS DOWD MD
[2017-01-30] MEDS ORDERED: dilTIAZem HCL 125 MG/25 ML - 25 ML VIAL ONE (16:35)
[2017-01-30] MEDS: dilTIAZem HCL 50 MG/10 ML - 10 ML VIAL IVPUSH PRN (17:13)
--- NOTE | 2017-01-30 21:35 | CON.CARD ---
Consult Consult Specialty:: cardiology Reason for Consultation:: tachycardia - History of Present Illness Chief Complaint: Pt is lethargic, disoriented. 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 Per EMS, the patient was in the ICU 2 weeks ago for fluid surrounding the heart. After discharge, the patient was set to [facility] for 1 week. Patient has baseline dementia and Alzheimers, but [facility] staff have noted he is increasingly confused. Today, the patient was found to be hypotensive, tachycardic, and tachypneic. Family reports patient had a subjective fever. When EMS arrived on scene, patients bp was 60/30. At the time a 16 crispin was placed to the RFA and an 18 to the LAC, with 3000 mL normal saline during transport. Upon arrival, EMS reports patients bp was up to 70/ 40. Per family member, patient has diabetic foot ulcers in the heels bilaterally , which are managed by Dr. Kothari. No reported chills, cough, or sore throat. No chest pain, diaphoresis, or palpitations. Patient arrived with arndt in place draining hematuria, but no dysuria, frequency, or urgency. Patients history is limited due to PMHx. Allergies: NKDA Past Surgical History: None reported. Social History: Non smoker. No ETOH or drug use. 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 Cardio/Vascular: Yes: AFIB, CHF, HTN, Hyperlipdemia Psych: Yes: Bipolar (Pt's daughter say he has dementia and ?manic depression) Endocrine: Yes: Diabetes Mellitus Additional Medical History: diabetic and PAD associated foot ulcers bilaterally - Past Surgical History Past Surgical History: Yes: None - Alcohol/Substance Use Hx Alcohol Use: No - Smoking History Smoking history: Unknown if ever smoked Have you smoked in the past 12 months: No - Social History Usual Living Arrangement: With Child ADL: Family Assistance History of Recent Travel: No Home Medications - Allergies Allergies/Adverse Reactions: Allergies Allergy/AdvReac Type Severity Reaction Status Date / Time No Known Allergies Allergy Verified 01/29/17 14:34 - Home Medications Home Medications: Ambulatory Orders Aspirin [ASA -] 81 mg PO DAILY 10/04/16 Cyanocobalamin (Vitamin B-12) [Vitamin B-12] 1,000 mcg PO DAILY 10/04/16 Donepezil HCl [Aricept -] 10 mg PO DAILY 10/04/16 Quetiapine Fumarate [Seroquel -] 25 mg PO HS 10/04/16 Metformin HCl [Metformin HCl ER] 1,000 mg PO BID 11/26/16 Metoprolol Succinate [Toprol XL -] 25 mg PO DAILY #30 tab 12/06/16 Collagenase Clostridium Hist. [Santyl] 1 applic TP DAILY #90 oint...g. 12/16/16 Acetaminophen [Tylenol .Regular Strength -] 650 mg PO Q6H PRN #0 tablet Clopidogrel Bisulfate [Plavix -] 75 mg PO DAILY tablet 01/17/17 Lisinopril [Prinivil] 2.5 mg PO DAILY tablet 01/17/17 Spironolactone [Aldactone -] 25 mg PO DAILY #0 tablet 01/17/17 Acetaminophen [Tylenol] 650 mg PO BID 01/29/17 Bacitracin - [Bacitracin Topical Ointment -] 1 applic TP DAILY 01/29/17 Insulin Sliding Scale [Novolog Vial Sliding Scale -] 1 vial SQ ACHS PRN Multivitamins [Tab-A-Vit -] 1 tab PO DAILY 01/29/17 Tamsulosin HCl [Flomax] 0.4 mg PO 1630 01/29/17 Vit A/Vitamin D3/E/Aloe V/Znox [Periguard Ointment] 0 gm TP TID 01/29/17 Review of Systems - Review of Systems Constitutional: reports: Fever, Lethargy, Weakness Eyes: reports: No Symptoms Neck: reports: No Symptoms Cardiovascular: reports: Edema, Shortness of Breath Respiratory: reports: SOB Musculoskeletal: reports: Muscle Weakness Integumentary: reports: Wound (feet) Neurological: reports: Weakness Psychiatric: reports: Anxiety, Depression, Other - Risk Factors Known Risk Factors: Yes: Age, Diabetes Mellitus, Gender, Hypercholesterolemia, Hypertension, Physical Inactivity, Prior [place] /Emb Stroke, Other (systolic CHF; AF ) Vital Signs: Vital Signs Temperature 99.7 F H 01/30/17 19:47 Pulse Rate 118 H 01/30/17 19:47 Respiratory Rate 18 01/30/17 19:47 Blood Pressure 84/62 01/30/17 19:47 O2 Sat by Pulse Oximetry (%) 97 01/30/17 20:14 Constitutional: Yes: Calm Eyes: Yes: WNL HENT: Yes: WNL Neck: Yes: WNL Respiratory: Yes: Diminished Gastrointestinal: Yes: Soft Renal/: No: Anuria Cardiovascular: Yes: Tachycardia, Pulse Irregular JVD: No Carotid Bruit: No PMI: Displaced Heart Sounds: Yes: S1 (varies in intensity), S2 Murmur: Yes: Systolic Murmur, Grade 2 Musculoskeletal: Yes: Muscle Weakness Extremities: Yes: Cold Edema: No Peripheral Pulses WNL: No Peripheral Pulses: 1+ Left Doralis Pedis, 1+ Right Dorsalis Pedis Integumentary: Yes: Other (toes on both feet blackened) Neurological: Yes: Weakness Psychiatric: Yes: Other (dementia; bipolar disease) - Other Data Labs, Other Data: CBC, BMP 01/30/17 05:05 01/30/17 05:05 INR, PTT INR 1.44 (0.82-1.09) H 01/29/17 15:00 Troponin, BNP 01/30/17 01/30/17 05:05 08:46 Troponin I 0.33 H Cancelled Troponin, BNP 01/30/17 01/30/17 05:05 08:46 Troponin I 0.33 H Cancelled Echo: Report Reviewed (severely reduced LVEF) Imaging - Results EKG: Image Reviewed (AF with RVR) Problem List - Problems (1) Hypotension Assessment/Plan: Contributing factors include fever, sepsis, AF with RVR, dehydration. Code(s): I95.9 - HYPOTENSION, UNSPECIFIED Qualifiers: Hypotension type: other hypotension type Qualified Code(s): I95.89 - Other hypotension (2) Sepsis Assessment/Plan: On antibiotics; f/u c/s. Fluids, but reevaluate rate frequently due to tendency to fluid overload (poor LVEF). Code(s): A41.9 - SEPSIS, UNSPECIFIED ORGANISM Qualifiers: Sepsis type: sepsis due to unspecified organism Qualified Code(s): A41.9 - Sepsis, unspecified organism (3) UTI (urinary tract infection) Code(s): N39.0 - URINARY TRACT INFECTION, SITE NOT SPECIFIED Qualifiers: Urinary tract infection type: site unspecified Hematuria presence: with hematuria Qualified Code(s): N39.0 - Urinary tract infection, site not specified (4) Acute on chronic systolic (congestive) heart failure Assessment/Plan: restart beta blockers and ACEI once BP has improved. Receiving fluids due to sepsis, hypotension, high BUN/Cr (BUN is 58; was < 20 less than 2 weeks ago). Reevaluate rate frequently, as pt is prone to fluid overload due to severely reduced LVEF). Code(s): I50.23 - ACUTE ON CHRONIC SYSTOLIC (CONGESTIVE) HEART FAILURE (5) CAD (coronary artery disease) Code(s): I25.10 - ATHSCL HEART DISEASE OF [place] CORONARY ARTERY W/O ANG PCTRS (6) Dementia Code(s): F03.90 - UNSPECIFIED DEMENTIA WITHOUT BEHAVIORAL DISTURBANCE Qualifiers: Dementia type: Alzheimer's disease Dementia behavioral disturbance: without behavioral disturbance (7) Infection of left foot Code(s): L08.9 - LOCAL INFECTION OF THE SKIN AND SUBCUTANEOUS TISSUE, UNSP (8) Leukocytosis Code(s): D72.829 - ELEVATED WHITE BLOOD CELL COUNT, UNSPECIFIED (9) NSTEMI (non-ST elevated myocardial infarction) Code(s): I21.4 - NON-ST ELEVATION (NSTEMI) MYOCARDIAL INFARCTION (10) Diabetes Code(s): E11.9 - TYPE 2 DIABETES MELLITUS WITHOUT COMPLICATIONS 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 Recommend restarting metoprolol tartrate (25 mg bid) if BP allows; avoid PO diltiazem, if possible, due to the poor LVEF. On ASA and clopidogrel; ? not considered candidate for warfarin or NOAC (f/u recent ICU admission). Code(s): I48.91 - UNSPECIFIED ATRIAL FIBRILLATION Assessment/Plan cc time spent perusing chart, evaluating pt, formulating plan: 75 minutes
[2017-01-31] MEDS ORDERED: PT OWN MED DRAWER 7, Y5N ONE ×2 (01:38→15:55)
[2017-01-31] MEDS: MEROPENEM 500 MG in DEXTROSE 5%-WATER - 100 ML IVPB SCH ×3 (01:42→17:03)
[2017-01-31] MEDS: dilTIAZem HCL 50 MG/10 ML - 10 ML VIAL IVPUSH PRN (04:17)
[2017-01-31 05:47] LABS: MCH 26.4 pg (25.7-33.7); MCHC 30.8 g/dl (32.0-35.9); MEAN CELL VOLUME 85.5 fl (80-96); MEAN PLT VOLUME 9.4 fl (7.5-11.1); PLATELET COUNT 316 K/MM3 (134-434); RDW 16.4 % (11.9-15.9); WHITE BLOOD COUNT 21.1 K/mm3 (4.0-10.0)
[2017-01-31] MEDS: HEPARIN NA (PORCINE) 5,000 UNITS/ML 1ML VIAL SQ SCH ×3 (05:55→21:32)
[2017-01-31 06:13] LABS: ALK PHOS 113 U/L (45-117); ANION GAP 9 (8-16); BILIRUBIN,TOTAL 0.7 mg/dL (0.2-1.0); CALCIUM 9.1 mg/dL (8.5-10.1); CO2 23 mmol/L (21-32); CREATININE 1.2 mg/dL (0.7-1.3); GLUCOSE,RANDOM 198 mg/dL (74-106); SGOT/AST 20 U/L (15-37); SGPT/ALT 27 U/L (12-78); TOT PROT 6.3 g/dl (6.4-8.2)
[2017-01-31] MEDS ORDERED: SODIUM CHLORIDE 1,000 ML IV SCH (06:30)
--- NOTE | 2017-01-31 06:57 | PN ---
Progress Note, Physician Chief Complaint: ID Follow up for this 76 year old male with multiple comorbidities admitted t ICU with urosepsis Report of gram negative rods in blood cultures Suspected urosepsis Stable overnight No pressors or respiratory support Alert but nonverbal - Current Medication List Current Medications: Active Medications Acetaminophen (Tylenol -) 650 mg PO Q6H PRN PRN Reason: FEVER OR PAIN Aspirin (Ecotrin -) 81 mg PO DAILY [facility] Last Admin: 01/30/17 09:14 Dose: 81 mg Aspirin (Asa -) 81 mg PO DAILY [facility] Last Admin: 01/30/17 12:15 Dose: Not Given Bacitracin (Bacitracin -) 1 applic TP DAILY [facility] Last Admin: 01/30/17 09:14 Dose: 1 applic Clopidogrel Bisulfate (Plavix -) 75 mg PO DAILY [facility] Last Admin: 01/30/17 09:14 Dose: 75 mg Collagenase (Santyl -) 1 applic TP DAILY [facility] Last Admin: 01/30/17 10:47 Dose: 1 applic Cyanocobalamin (Vitamin B12 -) 1,000 mcg PO DAILY [facility] Last Admin: 01/30/17 10:47 Dose: 1,000 mcg Diltiazem HCl (Cardizem Injection -) 10 mg IVPUSH Q4H PRN PRN Reason: TACHYCARDIA Last Admin: 01/31/17 04:17 Dose: 10 mg Donepezil HCl (Aricept -) 10 mg PO DAILY [facility] Last Admin: 01/30/17 09:14 Dose: 10 mg Heparin Sodium (Porcine) (Heparin -) 5,000 unit SQ TID [facility] Last Admin: 01/31/17 05:55 Dose: 5,000 unit Meropenem 500 mg/ Dextrose 100 mls @ 200 mls/hr IVPB Q8H-IV [facility] Last Admin: 01/31/17 01:42 Dose: 200 mls/hr Sodium Chloride (Normal Saline -) 1,000 mls @ 42 mls/hr IV ASDIR [facility] Last Admin: 01/31/17 06:37 Dose: 42 mls/hr Insulin Aspart (Novolog Vial Sliding Scale -) 1 vial SQ ACHS [facility] PRN Reason: Protocol Last Admin: 01/30/17 22:26 Dose: 1 unit Metoprolol Tartrate (Lopressor Injection -) 5 mg IVPUSH Q5M PRN PRN Reason: HYPERTENSION Last Admin: 01/30/17 15:40 Dose: 5 mg Metoprolol Tartrate (Lopressor -) 25 mg PO BID [facility] Last Admin: 01/30/17 22:04 Dose: 25 mg Multivitamins/Minerals/Vitamin C (Tab-A-Vit -) 1 tab PO DAILY [facility] Last Admin: 01/30/17 09:14 Dose: 1 tab - Objective Vital Signs: Vital Signs Temperature 99.5 F 01/31/17 06:25 Pulse Rate 102 H 01/31/17 06:25 Respiratory Rate 20 01/31/17 06:25 Blood Pressure 102/72 01/31/17 06:25 O2 Sat by Pulse Oximetry (%) 97 01/30/17 20:14 Constitutional: Yes: No Distress HENT: Yes: WNL, Atraumatic Neck: Yes: WNL, Supple Cardiovascular: Yes: Regular Rate and Rhythm, S1, S2. No: Murmur, Rub Respiratory: Yes: WNL, Regular, CTA Bilaterally. No: Rales, Rhonchi Gastrointestinal: Yes: WNL, Normal Bowel Sounds, Hepatomegaly. No: Palpable Mass, Tenderness, Tenderness, Rebound Extremities: Yes: Other ( Necrotic wounds left heel Toes both feet) Labs: CBC, BMP 01/31/17 05:10 01/31/17 05:10 INR, PTT INR 1.44 (0.82-1.09) H 01/29/17 15:00 Problem List - Problems (1) Sepsis Code(s): A41.9 - SEPSIS, UNSPECIFIED ORGANISM Qualifiers: Sepsis type: sepsis due to unspecified organism Qualified Code(s): A41.9 - Sepsis, unspecified organism (2) UTI (urinary tract infection) Code(s): N39.0 - URINARY TRACT INFECTION, SITE NOT SPECIFIED Qualifiers: Urinary tract infection type: site unspecified Hematuria presence: with hematuria Qualified Code(s): N39.0 - Urinary tract infection, site not specified (3) Gram-negative bacteremia Code(s): R78.81 - BACTEREMIA Assessment/Plan Microbiology 01/29/17 15:06 Blood - Peripheral Venous Blood Culture - Preliminary Pending Organism 01/29/17 14:30 Blood - Peripheral Venous Blood Culture - Preliminary Lactose Fermenting Neg Bacilli Laboratory Tests 01/29/17 01/29/17 01/29/17 15:00 15:00 15:06 WBC 20.6 H D Hgb Plt Count Neutrophils % Lymphocytes % Monocytes % Eosinophils % INR 1.44 H BUN Creatinine Creat Clearance w eGFR Total Bilirubin AST ALT Alkaline Phosphatase Ur Leukocyte Esterase 2+ H Urine RBC 1245 Urine WBC 741 Urine Bacteria Many 01/30/17 01/31/17 01/31/17 05:05 05:10 05:10 WBC 21.1 H Hgb 10.7 L D Plt Count 316 Neutrophils % 77.0 Lymphocytes % 5.0 L D Monocytes % 17.0 H D Eosinophils % 1.0 D INR BUN 43 H D Creatinine 1.2 Creat Clearance w eGFR 58.86 Total Bilirubin 0.7 AST 20 D ALT 27 Alkaline Phosphatase 113 Ur Leukocyte Esterase Urine RBC Urine WBC Urine Bacteria Assessment Sepsis syndrome urinary tract source Leukomoid reaction secondary sepsis Diabetes Dementia Necrotic wounds LE Gram negative mae bacteremia Plan Continue Meropenem pending final c/s Await final culture results Vascular consult LE but not sure any more can be done for gangrene ( had angioplasty) Follow WBC ESR CRP Renal sonogram Critical care time spent 38 minutes [place] REYES
[2017-01-31] MEDS: INSULIN SLIDING SCALE (NOVOLOG) 1 VIAL SQ SCH ×4 (07:33→22:44)
[2017-01-31] MEDS: ASPIRIN 81 MG CHEWABLE TABLETS PO SCH (09:48)
[2017-01-31] MEDS: DONEPEZIL HCL 10 MG TABLET (FP) PO SCH (09:48)
[2017-01-31] MEDS: MULTIVITAMINS (DAILY MVI) TABLET (FP) PO SCH (09:48)
[2017-01-31] MEDS: METOPROLOL TARTRATE 25 MG TABLET (FP) PO SCH (09:48)
[2017-01-31] MEDS: CLOPIDOGREL BISULFATE 75 MG TABLET (FP) PO SCH (09:48)
[2017-01-31] MEDS: BACITRACIN 15 GM TUBE TOPICAL OINTMENT TP SCH (09:49)
[2017-01-31] MEDS: CYANOCOBALAMIN 1,000 MCG TABLET (FP) PO SCH (09:49)
[2017-01-31] MEDS: COLLAGENASE CLOSTRIDIUM HIST. 30 GRAMS TUBE TP SCH (09:49)
[2017-01-31 10:00] LABS: C-REACTIVE PROTEIN 11.8 MG/DL (0.00-0.3)
[2017-01-31] MEDS ORDERED: ACETAMINOPHEN 325 MG TABLET (FP) PO PRN (11:46)
[2017-01-31] MEDS ORDERED: METOPROLOL TARTRATE 5 MG/5 ML VIAL IVPUSH PRN (11:46)
[2017-01-31] MEDS ORDERED: dilTIAZem HCL 50 MG/10 ML - 10 ML VIAL IVPUSH PRN (11:46)
--- NOTE | 2017-01-31 11:54 | PN ---
Teaching Attending Note Name of Resident: Linus Leong ATTENDING PHYSICIAN STATEMENT I saw and evaluated the patient. I reviewed the resident's note and discussed the case with the resident. I agree with the resident's findings and plan as documented. SUBJECTIVE: Patient seen and examined in the ICU. Awake and tracking. AFib rates are better controlled today. Intake & Output 01/28/17 01/29/17 01/30/17 01/31/17 23:59 23:59 23:59 23:59 Intake Total 800 1375 604 Output Total 750 900 700 Balance 50 475 -96 Weight 148 lb 0.011 oz 148 lb 148 lb 9.6 oz Last Vital Signs Temp Pulse Resp BP Pulse Ox 99.6 F 110 H 20 96/64 100 01/31/17 10:00 01/31/17 10:00 01/31/17 10:00 01/31/17 10:00 01/31/17 08:54 Active Medications Acetaminophen (Tylenol -) 650 mg PO Q6H PRN PRN Reason: FEVER OR PAIN Aspirin (Ecotrin -) 81 mg PO DAILY [facility] Bacitracin (Bacitracin -) 1 applic TP DAILY [facility] Clopidogrel Bisulfate (Plavix -) 75 mg PO DAILY [facility] Collagenase (Santyl -) 1 applic TP DAILY [facility] Cyanocobalamin (Vitamin B12 -) 1,000 mcg PO DAILY [facility] Diltiazem HCl (Cardizem Injection -) 10 mg IVPUSH Q4H PRN PRN Reason: TACHYCARDIA Donepezil HCl (Aricept -) 10 mg PO DAILY [facility] Heparin Sodium (Porcine) (Heparin -) 5,000 unit SQ TID [facility] Meropenem 500 mg/ Dextrose 100 mls @ 200 mls/hr IVPB Q8H-IV [facility] Sodium Chloride (Normal Saline -) 1,000 mls @ 42 mls/hr IV ASDIR [facility] Insulin Aspart (Novolog Vial Sliding Scale -) 1 vial SQ ACHS [facility] PRN Reason: Protocol Metoprolol Tartrate (Lopressor -) 25 mg PO BID [facility] Metoprolol Tartrate (Lopressor Injection -) 5 mg IVPUSH Q5M PRN PRN Reason: HYPERTENSION Multivitamins/Minerals/Vitamin C (Tab-A-Vit -) 1 tab PO DAILY [facility] Constitutional: Yes: Lethargic, NAD Eyes: Yes: EOM Intact Cardiovascular: Yes: Murmur, S1, S2 Respiratory: Yes: Scattered rhonchi Gastrointestinal: Yes: Normal Bowel Sounds, Soft Extremities: Yes: Other Edema: LLE: 1+, RLE: 1+ Wound/Incision: Yes: Clean/Dry Neurological: Yes: Lethargic/Confusion Labs: Laboratory Results - last 24 hr 01/30/17 01/30/17 01/31/17 16:09 22:24 05:10 WBC 21.1 H RBC 4.05 D Hgb 10.7 L D Hct 34.6 L D MCV 85.5 MCH 26.4 MCHC 30.8 L RDW 16.4 H Plt Count 316 MPV 9.4 Sodium Potassium Chloride Carbon Dioxide Anion Gap BUN Creatinine Creat Clearance w eGFR POC Glucometer 154.05659 176.03995 Random Glucose Calcium Total Bilirubin AST ALT Alkaline Phosphatase C-Reactive Protein Total Protein Albumin 01/31/17 01/31/17 01/31/17 05:10 05:10 07:19 WBC RBC Hgb Hct MCV MCH MCHC RDW Plt Count MPV Sodium 146 H Potassium 4.9 Chloride 114 H Carbon Dioxide 23 Anion Gap 9 BUN 43 H D Creatinine 1.2 Creat Clearance w eGFR 58.86 POC Glucometer 208.97840 Random Glucose 198 H Calcium 9.1 Total Bilirubin 0.7 AST 20 D ALT 27 Alkaline Phosphatase 113 C-Reactive Protein 11.8 H Cancelled Total Protein 6.3 L Albumin 2.0 L 01/31/17 11:20 WBC RBC Hgb Hct MCV MCH MCHC RDW Plt Count MPV Sodium Potassium Chloride Carbon Dioxide Anion Gap BUN Creatinine Creat Clearance w eGFR POC Glucometer 214.69351 Random Glucose Calcium Total Bilirubin AST ALT Alkaline Phosphatase C-Reactive Protein Total Protein Albumin Problem List - Problems (1) Hypotension Code(s): I95.9 - HYPOTENSION, UNSPECIFIED Qualifiers: Hypotension type: other hypotension type Qualified Code(s): I95.89 - Other hypotension (2) Sepsis Code(s): A41.9 - SEPSIS, UNSPECIFIED ORGANISM Qualifiers: Sepsis type: sepsis due to unspecified organism Qualified Code(s): A41.9 - Sepsis, unspecified organism (3) UTI (urinary tract infection) Code(s): N39.0 - URINARY TRACT INFECTION, SITE NOT SPECIFIED Qualifiers: Urinary tract infection type: site unspecified Hematuria presence: with hematuria Qualified Code(s): N39.0 - Urinary tract infection, site not specified (4) CAD (coronary artery disease) Code(s): I25.10 - ATHSCL HEART DISEASE OF [place] CORONARY ARTERY W/O ANG PCTRS (5) Dementia Code(s): F03.90 - UNSPECIFIED DEMENTIA WITHOUT BEHAVIORAL DISTURBANCE Qualifiers: Dementia type: Alzheimer's disease Dementia behavioral disturbance: without behavioral disturbance (6) Open wound of left foot Code(s): S91.302A - UNSPECIFIED OPEN WOUND, LEFT FOOT, INITIAL ENCOUNTER Qualifiers: Encounter type: sequela Qualified Code(s): S91.302S - Unspecified open wound, left foot, sequela (7) NICHOLAS (acute kidney injury) Code(s): N17.9 - ACUTE KIDNEY FAILURE, UNSPECIFIED Assessment/Plan Sepsis due to UTI / Bacteremia Dementia CHF / Systolic dysfunction DM PAD Chronic foot ulcers/gangrene NICHOLAS (baseline SCr 0.7) ABX per ID O2 as needed Aspiration precautions Follow cultures Rate control ASA and Plavix Follow BGM Local wound care VTE prophylaxis 4W/4S monitoring Dr Qureshi Critical Care Total Critical Care Time (in minutes): 35 Critical Care Statement: The care of this patient involved high complexity decision making to prevent further life threatening deterioration of the patient 's condition and/or to evalute & treat vital organ system(s) failure or risk of failure.
[2017-01-31] MEDS: SODIUM CHLORIDE 1,000 ML IV SCH (13:14)
[2017-01-31] MEDS: ACETAMINOPHEN 1000 MG/100 ML VIAL (NON FORMULARY) IVPB PRN (14:40)
[2017-01-31] MEDS: METOPROLOL TARTRATE 5 MG/5 ML VIAL IVPB PRN (15:30)
--- NOTE | 2017-01-31 16:13 | PN ---
Physical Exam: SUBJECTIVE: Patient is demented at baseline and unable to follow command or answer questions. Per nurse, he had no acute event overnight. OBJECTIVE: Vital Signs Period Temp Pulse Resp BP Sys/Mcdaniel Pulse Ox Last 24 Hr 99.4 F-100.3 F 83-129 18-20 84-121/56-96 97-100 GENERAL: The patient is awake, alert, confused, in no apparent acute distress. LUNGS: CTAB HEART: Tachycardic, S1, S2 present without murmur, rub or gallop. ABDOMEN: Soft, nontender, nondistended, normoactive bowel sounds, no guarding, no rebound EXTREMITIES: Dry gangrene in L big toe, R 1st and 3rd digits Laboratory Results - last 24 hr 01/30/17 01/30/17 01/31/17 16:09 22:24 05:10 WBC 21.1 H RBC 4.05 D Hgb 10.7 L D Hct 34.6 L D MCV 85.5 MCH 26.4 MCHC 30.8 L RDW 16.4 H Plt Count 316 MPV 9.4 Sodium Potassium Chloride Carbon Dioxide Anion Gap BUN Creatinine Creat Clearance w eGFR POC Glucometer 154.19889 176.26866 Random Glucose Calcium Total Bilirubin AST ALT Alkaline Phosphatase C-Reactive Protein Total Protein Albumin 01/31/17 01/31/17 01/31/17 05:10 05:10 07:19 WBC RBC Hgb Hct MCV MCH MCHC RDW Plt Count MPV Sodium 146 H Potassium 4.9 Chloride 114 H Carbon Dioxide 23 Anion Gap 9 BUN 43 H D Creatinine 1.2 Creat Clearance w eGFR 58.86 POC Glucometer 208.65989 Random Glucose 198 H Calcium 9.1 Total Bilirubin 0.7 AST 20 D ALT 27 Alkaline Phosphatase 113 C-Reactive Protein 11.8 H Cancelled Total Protein 6.3 L Albumin 2.0 L 01/31/17 11:20 WBC RBC Hgb Hct MCV MCH MCHC RDW Plt Count MPV Sodium Potassium Chloride Carbon Dioxide Anion Gap BUN Creatinine Creat Clearance w eGFR POC Glucometer 214.11793 Random Glucose Calcium Total Bilirubin AST ALT Alkaline Phosphatase C-Reactive Protein Total Protein Albumin Intake & Output 01/28/17 01/29/17 01/30/17 01/31/17 23:59 23:59 23:59 23:59 Intake Total 800 1375 1204 Output Total 895 741 1430 Balance 50 475 104 Weight 67.132 kg 67.132 kg 67.404 kg Microbiology 01/29/17 14:30 Blood Culture - Preliminary Blood - Peripheral Venous Escherichia Coli Esbl [employer] Lactose Fermenting Neg Bacilli#2 01/29/17 15:06 Urine Culture - Preliminary Urine - Urine [place] Lactose Fermenting Neg Bacilli Lactose Fermenting Neg Bacilli#2 Proteus Species Group D Strep Or Entero Coccus 01/29/17 15:06 Blood Culture - Preliminary Blood - Peripheral Venous Lactose Fermenting Neg Bacilli Proteus Species ASSESSMENT/PLAN: 76 yo M with Alzheimer's disease, a-fib, NSVT, CAD s/p STEMI and NSTEMI, HTN, DMII, HLD, PAD s/p tibial artery angioplasty admitted to ICU for severe sepsis Severe sepsis - 2/2 UTI - Improving * WBC trending down - Gentle hydration due to poor EF - Blood culture positive for ESBL sensitive to meropenem * cont. meropenem A-fib, ?new onset - Rate better controlled - On plavix and asa - Cont. lopressor 25mg BID with 5mg IV PRN - Cardiology onboard Left heel gangrene -Cont. wound care Normocytic anemia - At baseline - Cont. to monitor CBC NICHOLAS - Resolved HTN - Hold GIO-i and aldactone for hypotension DM - BGM and ISS FEN - Decrease rate to 42cc/hr - Cont. to monitor lytes - Soft diet Prophylaxis - DVT: heparin - GI: not indicated Disposition - Transfer to floor Code status - Full Linus Leong, ICU resident PGY-2 Pager: [phone] Visit type - Emergency Visit Emergency Visit: No - New Patient This patient is new to me today: No - Critical Care Critical Care patient: Yes Total Critical Care Time (in minutes): 25
--- NOTE | 2017-01-31 21:58 | PN ---
Progress Note, Physician - Current Medication List Current Medications: Active Medications Acetaminophen (Tylenol -) 650 mg PO Q6H PRN PRN Reason: FEVER OR PAIN Last Admin: 01/31/17 17:48 Dose: 650 mg Acetaminophen (Ofirmev Injection -) 1,000 mg IVPB Q6H PRN PRN Reason: FEVER OR PAIN Stop: 02/01/17 09:24 Last Admin: 01/31/17 14:40 Dose: 1,000 mg Aspirin (Ecotrin -) 81 mg PO DAILY [facility] Bacitracin (Bacitracin -) 1 applic TP DAILY [facility] Clopidogrel Bisulfate (Plavix -) 75 mg PO DAILY [facility] Collagenase (Santyl -) 1 applic TP DAILY [facility] Cyanocobalamin (Vitamin B12 -) 1,000 mcg PO DAILY [facility] Donepezil HCl (Aricept -) 10 mg PO DAILY [facility] Heparin Sodium (Porcine) (Heparin -) 5,000 unit SQ TID [facility] Last Admin: 01/31/17 21:32 Dose: 5,000 unit Meropenem 500 mg/ Dextrose 100 mls @ 200 mls/hr IVPB Q8H-IV [facility] Last Admin: 01/31/17 17:03 Dose: 200 mls/hr Sodium Chloride (Normal Saline -) 1,000 mls @ 42 mls/hr IV ASDIR [facility] Last Admin: 01/31/17 13:14 Dose: 42 mls/hr Insulin Aspart (Novolog Vial Sliding Scale -) 1 vial SQ ACHS [facility] PRN Reason: Protocol Last Admin: 01/31/17 16:17 Dose: 2 units Metoprolol Tartrate (Lopressor -) 25 mg PO BID [facility] Last Admin: 01/31/17 21:31 Dose: 25 mg Metoprolol Tartrate (Lopressor Injection -) 5 mg IVPB Q4H PRN PRN Reason: HYPERTENSION Last Admin: 01/31/17 15:30 Dose: 5 mg Multivitamins/Minerals/Vitamin C (Tab-A-Vit -) 1 tab PO DAILY [facility] - Objective Vital Signs: Vital Signs Temperature 100.6 F H 01/31/17 18:00 Pulse Rate 94 H 01/31/17 18:00 Respiratory Rate 20 01/31/17 18:00 Blood Pressure 120/80 01/31/17 18:00 O2 Sat by Pulse Oximetry (%) 100 01/31/17 08:54 Labs: CBC, BMP 01/31/17 05:10 01/31/17 05:10 INR, PTT INR 1.44 (0.82-1.09) H 01/29/17 15:00
[2017-01-31] MEDS ORDERED: METOPROLOL TARTRATE 25 MG TABLET (FP) PO SCH (22:00)
--- NOTE | 2017-01-31 22:47 | PN ---
Progress Note, Physician Chief Complaint: Pt is talkative, but nonsensical. 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 Per EMS, the patient was in the ICU 2 weeks ago for fluid surrounding the heart. After discharge, the patient was set to [facility] for 1 week. Patient has baseline dementia and Alzheimers, but CT staff have noted he is increasingly confused. Today, the patient was found to be hypotensive, tachycardic, and tachypneic. Family reports patient had a subjective fever. When EMS arrived on scene, patients bp was 60/30. At the time a 16 crispin was placed to the RFA and an 18 to the LAC, with 3000 mL normal saline during transport. Upon arrival, EMS reports patients bp was up to 70/ 40. Per family member, patient has diabetic foot ulcers in the heels bilaterally , which are managed by Dr. Kothari. No reported chills, cough, or sore throat. No chest pain, diaphoresis, or palpitations. Patient arrived with arndt in place draining hematuria, but no dysuria, frequency, or urgency. Patients history is limited due to PMHx. Allergies: NKDA Past Surgical History: None reported. Social History: Non smoker. No ETOH or drug use. Supervisor Cellars: Dr. Ward PMD: Dr. Ian Sears - Current Medication List Current Medications: Active Medications Acetaminophen (Tylenol -) 650 mg PO Q6H PRN PRN Reason: FEVER OR PAIN Last Admin: 01/31/17 17:48 Dose: 650 mg Acetaminophen (Ofirmev Injection -) 1,000 mg IVPB Q6H PRN PRN Reason: FEVER OR PAIN Stop: 02/01/17 09:24 Last Admin: 01/31/17 14:40 Dose: 1,000 mg Aspirin (Ecotrin -) 81 mg PO DAILY [facility] Bacitracin (Bacitracin -) 1 applic TP DAILY [facility] Clopidogrel Bisulfate (Plavix -) 75 mg PO DAILY [facility] Collagenase (Santyl -) 1 applic TP DAILY [facility] Cyanocobalamin (Vitamin B12 -) 1,000 mcg PO DAILY [facility] Donepezil HCl (Aricept -) 10 mg PO DAILY [facility] Heparin Sodium (Porcine) (Heparin -) 5,000 unit SQ TID [facility] Last Admin: 01/31/17 21:32 Dose: 5,000 unit Meropenem 500 mg/ Dextrose 100 mls @ 200 mls/hr IVPB Q8H-IV [facility] Last Admin: 01/31/17 17:03 Dose: 200 mls/hr Sodium Chloride (Normal Saline -) 1,000 mls @ 42 mls/hr IV ASDIR [facility] Last Admin: 01/31/17 13:14 Dose: 42 mls/hr Insulin Aspart (Novolog Vial Sliding Scale -) 1 vial SQ ACHS [facility] PRN Reason: Protocol Last Admin: 01/31/17 22:44 Dose: 2 units Metoprolol Tartrate (Lopressor -) 25 mg PO BID [facility] Last Admin: 01/31/17 21:31 Dose: 25 mg Metoprolol Tartrate (Lopressor Injection -) 5 mg IVPB Q4H PRN PRN Reason: HYPERTENSION Last Admin: 01/31/17 15:30 Dose: 5 mg Multivitamins/Minerals/Vitamin C (Tab-A-Vit -) 1 tab PO DAILY [facility] - Objective Vital Signs: Vital Signs Temperature 99.6 F 01/31/17 22:00 Pulse Rate 102 H 01/31/17 22:00 Respiratory Rate 20 01/31/17 22:00 Blood Pressure 118/74 01/31/17 22:00 O2 Sat by Pulse Oximetry (%) 100 01/31/17 21:00 Constitutional: Yes: Anxious Eyes: Yes: WNL HENT: Yes: WNL Neck: Yes: WNL Cardiovascular: Yes: Pulse Irregular Respiratory: Yes: Regular Gastrointestinal: Yes: Soft ...Rectal Exam: Yes: Deferred Genitourinary: No: Anuria Breast(s): Yes: WNL Musculoskeletal: Yes: Muscle Weakness Extremities: Yes: Cold Edema: No Peripheral Pulses WNL: No Peripheral Pulses: Left Doralis Pedis: 1+, Right Dorsalis Pedis: 1+ Integumentary: Yes: Pressure Ulcer Wound/Incision: Yes: Other (several gangrenous toes) Neurological: Yes: Weakness Psychiatric: Yes: Other Labs: CBC, BMP 01/31/17 05:10 01/31/17 05:10 INR, PTT INR 1.44 (0.82-1.09) H 01/29/17 15:00 - ....Imaging Ultrasound: Image Reviewed (renal US: no gross abnormalities) Other: Image Reviewed (telemetry: AF; periods of RVR) Problem List - Problems (1) Hypotension Assessment/Plan: Contributing factors include fever, sepsis, AF with RVR, dehydration. Leukocytosis; bacteruria. On antibiotics; continue IV fluids (BUN52-->43; baseline about 12 earlier this month; Cr 1.2). CHF stable presently. Code(s): I95.9 - HYPOTENSION, UNSPECIFIED Qualifiers: Hypotension type: other hypotension type Qualified Code(s): I95.89 - Other hypotension (2) Sepsis Assessment/Plan: On antibiotics; f/u c/s. COntinue IV fluidsluids, but reevaluate rate frequently due to tendency to fluid overload (poor LVEF). Code(s): A41.9 - SEPSIS, UNSPECIFIED ORGANISM Qualifiers: Sepsis type: sepsis due to unspecified organism Qualified Code(s): A41.9 - Sepsis, unspecified organism (3) UTI (urinary tract infection) Code(s): N39.0 - URINARY TRACT INFECTION, SITE NOT SPECIFIED Qualifiers: Urinary tract infection type: site unspecified Hematuria presence: with hematuria Qualified Code(s): N39.0 - Urinary tract infection, site not specified (4) Acute on chronic systolic (congestive) heart failure Assessment/Plan: restart beta blockers (since last night, he has again taken PO metoprolol tartrate) and ACEI once BP has improved. Receiving fluids due to sepsis, hypotension, high BUN/Cr (BUN is 58; was < 20 less than 2 weeks ago). Reevaluate rate frequently, as pt is prone to fluid overload due to severely reduced LVEF). Code(s): I50.23 - ACUTE ON CHRONIC SYSTOLIC (CONGESTIVE) HEART FAILURE (5) CAD (coronary artery disease) Code(s): I25.10 - ATHSCL HEART DISEASE OF [place] CORONARY ARTERY W/O ANG PCTRS (6) Dementia Code(s): F03.90 - UNSPECIFIED DEMENTIA WITHOUT BEHAVIORAL DISTURBANCE Qualifiers: Dementia type: Alzheimer's disease Dementia behavioral disturbance: without behavioral disturbance (7) Infection of left foot Code(s): L08.9 - LOCAL INFECTION OF THE SKIN AND SUBCUTANEOUS TISSUE, UNSP (8) Leukocytosis Code(s): D72.829 - ELEVATED WHITE BLOOD CELL COUNT, UNSPECIFIED (9) NSTEMI (non-ST elevated myocardial infarction) Code(s): I21.4 - NON-ST ELEVATION (NSTEMI) MYOCARDIAL INFARCTION (10) Diabetes Code(s): E11.9 - TYPE 2 DIABETES MELLITUS WITHOUT COMPLICATIONS 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 Recommend restarting metoprolol tartrate (25 mg bid) if BP allows; avoid PO diltiazem, if possible, due to the poor LVEF. On ASA and clopidogrel; ? not considered candidate for warfarin or NOAC (f/u recent ICU admission). Anemia required PRBCs. Code(s): I48.91 - UNSPECIFIED ATRIAL FIBRILLATION (14) Aortic stenosis Assessment/Plan: On previous admission earlier this year, pt's daughters opted for conservative management regarding poor LVEF and significant valvular disease. Code(s): I35.0 - NONRHEUMATIC AORTIC (VALVE) STENOSIS (15) Hyperlipidemia Assessment/Plan: statin; keep LDL cholesterol < 70 mg/dL. Code(s): E78.5 - HYPERLIPIDEMIA, UNSPECIFIED
[2017-02-01] MEDS: MEROPENEM 500 MG in DEXTROSE 5%-WATER - 100 ML IVPB SCH ×3 (01:28→17:04)
[2017-02-01] MEDS ORDERED: PT OWN MED DRAWER 7, Y5N ONE ×3 (03:11→16:49)
[2017-02-01] MEDS: METOPROLOL TARTRATE 5 MG/5 ML VIAL IVPB PRN (04:13)
[2017-02-01 06:23] LABS: MCH 26.7 pg (25.7-33.7); MCHC 31.5 g/dl (32.0-35.9); MEAN CELL VOLUME 84.8 fl (80-96); MEAN PLT VOLUME 9.1 fl (7.5-11.1); PLATELET COUNT 324 K/MM3 (134-434); RDW 16.3 % (11.9-15.9); WHITE BLOOD COUNT 20.6 K/mm3 (4.0-10.0)
[2017-02-01] MEDS: HEPARIN NA (PORCINE) 5,000 UNITS/ML 1ML VIAL SQ SCH ×3 (06:28→21:40)
[2017-02-01] MEDS: ACETAMINOPHEN 1000 MG/100 ML VIAL (NON FORMULARY) IVPB PRN (06:28)
[2017-02-01] MEDS: INSULIN SLIDING SCALE (NOVOLOG) 1 VIAL SQ SCH ×4 (06:30→22:03)
[2017-02-01 06:56] LABS: ANION GAP 9 (8-16); CALCIUM 8.9 mg/dL (8.5-10.1); CO2 21 mmol/L (21-32); CREATININE 0.9 mg/dL (0.7-1.3); GLUCOSE,RANDOM 210 mg/dL (74-106)
--- NOTE | 2017-02-01 08:04 | PN ---
Progress Note, Physician Chief Complaint: ID Meropenem Alert confused NAD Low grade fevers 100.8 - Current Medication List Current Medications: Active Medications Acetaminophen (Tylenol -) 650 mg PO Q6H PRN PRN Reason: FEVER OR PAIN Last Admin: 01/31/17 17:48 Dose: 650 mg Acetaminophen (Ofirmev Injection -) 1,000 mg IVPB Q6H PRN PRN Reason: FEVER OR PAIN Stop: 02/01/17 09:24 Last Admin: 02/01/17 06:28 Dose: 1,000 mg Aspirin (Ecotrin -) 81 mg PO DAILY [facility] Bacitracin (Bacitracin -) 1 applic TP DAILY [facility] Clopidogrel Bisulfate (Plavix -) 75 mg PO DAILY [facility] Collagenase (Santyl -) 1 applic TP DAILY [facility] Cyanocobalamin (Vitamin B12 -) 1,000 mcg PO DAILY [facility] Donepezil HCl (Aricept -) 10 mg PO DAILY [facility] Heparin Sodium (Porcine) (Heparin -) 5,000 unit SQ TID [facility] Last Admin: 02/01/17 06:28 Dose: 5,000 unit Meropenem 500 mg/ Dextrose 100 mls @ 200 mls/hr IVPB Q8H-IV [facility] Last Admin: 02/01/17 01:28 Dose: 200 mls/hr Sodium Chloride (Normal Saline -) 1,000 mls @ 42 mls/hr IV ASDIR [facility] Last Admin: 01/31/17 13:14 Dose: 42 mls/hr Insulin Aspart (Novolog Vial Sliding Scale -) 1 vial SQ ACHS [facility] PRN Reason: Protocol Last Admin: 02/01/17 06:30 Dose: 2 units Metoprolol Tartrate (Lopressor -) 25 mg PO BID [facility] Last Admin: 01/31/17 21:31 Dose: 25 mg Metoprolol Tartrate (Lopressor Injection -) 5 mg IVPB Q4H PRN PRN Reason: HYPERTENSION Last Admin: 02/01/17 04:13 Dose: 5 mg Multivitamins/Minerals/Vitamin C (Tab-A-Vit -) 1 tab PO DAILY [facility] - Objective Vital Signs: Vital Signs Temperature 100.8 F H 02/01/17 06:00 Pulse Rate 136 H 02/01/17 06:00 Respiratory Rate 20 02/01/17 06:00 Blood Pressure 121/73 02/01/17 06:00 O2 Sat by Pulse Oximetry (%) 100 07/21/17 21:00 Constitutional: Yes: No Distress Neck: Yes: WNL, Supple Cardiovascular: Yes: Pulse Irregular, S1, S2 Respiratory: Yes: WNL, Regular, CTA Bilaterally Gastrointestinal: Yes: WNL, Normal Bowel Sounds, Soft Extremities: Yes: Other (Gangrene toes left heel fould smelling) Labs: CBC, BMP 02/01/17 05:45 02/01/17 05:45 INR, PTT INR 1.44 (0.82-1.09) H 01/29/17 15:00 Problem List - Problems (1) Sepsis Code(s): A41.9 - SEPSIS, UNSPECIFIED ORGANISM Qualifiers: Sepsis type: sepsis due to unspecified organism Qualified Code(s): A41.9 - Sepsis, unspecified organism (2) UTI (urinary tract infection) Code(s): N39.0 - URINARY TRACT INFECTION, SITE NOT SPECIFIED Qualifiers: Urinary tract infection type: site unspecified Hematuria presence: with hematuria Qualified Code(s): N39.0 - Urinary tract infection, site not specified (3) Gram-negative bacteremia Code(s): R78.81 - BACTEREMIA (4) Multiple drug resistant organism (MDRO) culture positive Code(s): Z16.24 - RESISTANCE TO MULTIPLE ANTIBIOTICS Assessment/Plan Microbiology 01/29/17 15:06 Urine - Urine [place] Urine Culture - Preliminary Lactose Fermenting Neg Bacilli Lactose Fermenting Neg Bacilli#2 Proteus Species Group D Strep Or Entero Coccus 01/29/17 15:06 Blood - Peripheral Venous Blood Culture - Preliminary Lactose Fermenting Neg Bacilli Proteus Species 01/29/17 14:30 Blood - Peripheral Venous Blood Culture - Preliminary Escherichia Coli Esbl [employer] Lactose Fermenting Neg Bacilli#2 Laboratory Tests 01/29/17 02/01/17 02/01/17 15:00 05:45 05:45 WBC 20.6 H Hgb 10.9 L Hct 34.8 L Plt Count 324 ESR 45 H INR 1.44 H BUN Creatinine 02/01/17 05:45 WBC Hgb Hct Plt Count ESR INR BUN 33 H D Creatinine 0.9 D Assessment Polymicrobial bacteremia urinary source Resistant organism ESBL Gangrene fould smelling heel/ toes Atrial fibrillation Plan Continue current antibiotic as ordered with contact isolation Bradford REYES
--- NOTE | 2017-02-01 08:43 | PN ---
Progress Note, Physician Chief Complaint: Cardiology for Ed TELE: AF 110-140bpm No distress, confused. - Current Medication List Current Medications: Active Medications Acetaminophen (Tylenol -) 650 mg PO Q6H PRN PRN Reason: FEVER OR PAIN Last Admin: 01/31/17 17:48 Dose: 650 mg Acetaminophen (Ofirmev Injection -) 1,000 mg IVPB Q6H PRN PRN Reason: FEVER OR PAIN Stop: 02/01/17 09:24 Last Admin: 02/01/17 06:28 Dose: 1,000 mg Aspirin (Ecotrin -) 81 mg PO DAILY [facility] Bacitracin (Bacitracin -) 1 applic TP DAILY [facility] Clopidogrel Bisulfate (Plavix -) 75 mg PO DAILY [facility] Collagenase (Santyl -) 1 applic TP DAILY [facility] Cyanocobalamin (Vitamin B12 -) 1,000 mcg PO DAILY [facility] Donepezil HCl (Aricept -) 10 mg PO DAILY [facility] Heparin Sodium (Porcine) (Heparin -) 5,000 unit SQ TID [facility] Last Admin: 02/01/17 06:28 Dose: 5,000 unit Meropenem 500 mg/ Dextrose 100 mls @ 200 mls/hr IVPB Q8H-IV [facility] Last Admin: 02/01/17 01:28 Dose: 200 mls/hr Sodium Chloride (Normal Saline -) 1,000 mls @ 42 mls/hr IV ASDIR [facility] Last Admin: 01/31/17 13:14 Dose: 42 mls/hr Insulin Aspart (Novolog Vial Sliding Scale -) 1 vial SQ ACHS [facility] PRN Reason: Protocol Last Admin: 02/01/17 06:30 Dose: 2 units Metoprolol Tartrate (Lopressor -) 25 mg PO BID [facility] Last Admin: 01/31/17 21:31 Dose: 25 mg Metoprolol Tartrate (Lopressor Injection -) 5 mg IVPB Q4H PRN PRN Reason: HYPERTENSION Last Admin: 02/01/17 04:13 Dose: 5 mg Multivitamins/Minerals/Vitamin C (Tab-A-Vit -) 1 tab PO DAILY [facility] - Objective Vital Signs: Vital Signs Temperature 100.8 F H 02/01/17 06:00 Pulse Rate 136 H 02/01/17 06:00 Respiratory Rate 20 02/01/17 06:00 Blood Pressure 121/73 02/01/17 06:00 O2 Sat by Pulse Oximetry (%) 100 01/31/17 21:00 Constitutional: Yes: No Distress Eyes: Yes: Conjunctiva Clear Cardiovascular: Yes: Pulse Irregular Respiratory: Yes: CTA Bilaterally Gastrointestinal: Yes: Soft Edema: No (necrotic toes) Labs: CBC, BMP 02/01/17 05:45 02/01/17 05:45 INR, PTT INR 1.44 (0.82-1.09) H 01/29/17 15:00 Microbiology 01/29/17 15:06 Urine - Urine [place] Urine Culture - Preliminary Lactose Fermenting Neg Bacilli Lactose Fermenting Neg Bacilli#2 Proteus Species Contaminated: Please Repeat#2 01/29/17 15:06 Blood - Peripheral Venous Blood Culture - Preliminary Lactose Fermenting Neg Bacilli Proteus Species 01/29/17 14:30 Blood - Peripheral Venous Blood Culture - Preliminary Escherichia Coli Esbl Bander [employer] Lactose Fermenting Neg Bacilli#2 Laboratory Tests 02/01/17 02/01/17 05:45 05:45 WBC 20.6 H Hgb 10.9 L Plt Count 324 Sodium 147 H Potassium 4.4 BUN 33 H D Creatinine 0.9 D Random Glucose 210 H Calcium 8.9 - ....Imaging EKG: Image Reviewed Assessment/Plan Problem List - Problems (1) Hypotension now resolved. Assessment/Plan: Contributing factors include fever, sepsis, AF with RVR, dehydration. Leukocytosis; bacteruria. On antibiotics Code(s): I95.9 - HYPOTENSION, UNSPECIFIED Qualifiers: Hypotension type: other hypotension type Qualified Code(s): I95.89 - Other hypotension (2) Sepsis Assessment/Plan: On antibiotics; f/u c/s. Continue IV fluidsluids, but reevaluate rate frequently due to tendency to fluid overload (poor LVEF). Code(s): A41.9 - SEPSIS, UNSPECIFIED ORGANISM Qualifiers: Sepsis type: sepsis due to unspecified organism Qualified Code(s): A41.9 - Sepsis, unspecified organism (3) UTI (urinary tract infection) Code(s): N39.0 - URINARY TRACT INFECTION, SITE NOT SPECIFIED Qualifiers: Urinary tract infection type: site unspecified Hematuria presence: with hematuria Qualified Code(s): N39.0 - Urinary tract infection, site not specified (4) Acute on chronic systolic (congestive) heart failure Assessment/Plan: Appears euvolemic at this time. Code(s): I50.23 - ACUTE ON CHRONIC SYSTOLIC (CONGESTIVE) HEART FAILURE (5) CAD (coronary artery disease) Code(s): I25.10 - ATHSCL HEART DISEASE OF [place] CORONARY ARTERY W/O ANG PCTRS (6) Dementia Code(s): F03.90 - UNSPECIFIED DEMENTIA WITHOUT BEHAVIORAL DISTURBANCE Qualifiers: Dementia type: Alzheimer's disease Dementia behavioral disturbance: without behavioral disturbance (7) Infection of left foot Code(s): L08.9 - LOCAL INFECTION OF THE SKIN AND SUBCUTANEOUS TISSUE, UNSP (8) Leukocytosis Code(s): D72.829 - ELEVATED WHITE BLOOD CELL COUNT, UNSPECIFIED (9) NSTEMI (non-ST elevated myocardial infarction) Code(s): I21.4 - NON-ST ELEVATION (NSTEMI) MYOCARDIAL INFARCTION (10) Diabetes Code(s): E11.9 - TYPE 2 DIABETES MELLITUS WITHOUT COMPLICATIONS 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 Anemia required PRBCs. Code(s): I48.91 - UNSPECIFIED ATRIAL FIBRILLATION (14) Aortic stenosis Assessment/Plan: On previous admission earlier this year, pt's daughters opted for conservative management regarding poor LVEF and significant valvular disease. Code(s): I35.0 - NONRHEUMATIC AORTIC (VALVE) STENOSIS (15) Hyperlipidemia Assessment/Plan: statin; keep LDL cholesterol < 70 mg/dL. Code(s): E78.5 - HYPERLIPIDEMIA, UNSPECIFIED
[2017-02-01] MEDS: MULTIVITAMINS (DAILY MVI) TABLET (FP) PO SCH (09:14)
[2017-02-01] MEDS: METOPROLOL TARTRATE 50 MG TABLET (FP) PO SCH ×2 (09:14→21:40)
[2017-02-01] MEDS: CLOPIDOGREL BISULFATE 75 MG TABLET (FP) PO SCH (09:14)
[2017-02-01] MEDS: CYANOCOBALAMIN 1,000 MCG TABLET (FP) PO SCH (09:14)
[2017-02-01] MEDS: ASPIRIN COATED 81 MG TABLET.EC PO SCH (09:14)
[2017-02-01] MEDS: DONEPEZIL HCL 10 MG TABLET (FP) PO SCH (09:15)
[2017-02-01] MEDS: COLLAGENASE CLOSTRIDIUM HIST. 30 GRAMS TUBE TP SCH (09:21)
[2017-02-01] MEDS: BACITRACIN 15 GM TUBE TOPICAL OINTMENT TP SCH (09:21)
--- NOTE | 2017-02-01 12:38 | PN ---
Progress Note (short form) - Note Progress Note: Awake not able to answer questions. No acute events overnight. NAD on NC O2. Intake & Output 01/29/17 01/30/17 01/31/17 02/01/17 23:59 23:59 23:59 23:59 Intake Total 800 1375 1818 604 Output Total 843 792 3674 400 Balance 50 475 218 204 Weight 148 lb 0.011 oz 148 lb 148 lb 9.6 oz Last Vital Signs Temp Pulse Resp BP Pulse Ox 99.4 F 101 H 20 133/75 100 02/01/17 10:00 02/01/17 10:00 02/01/17 10:00 02/01/17 10:00 02/01/17 09:00 Active Medications Acetaminophen (Tylenol -) 650 mg PO Q6H PRN PRN Reason: FEVER OR PAIN Last Admin: 01/31/17 17:48 Dose: 650 mg Aspirin (Ecotrin -) 81 mg PO DAILY [facility] Last Admin: 02/01/17 09:14 Dose: 81 mg Bacitracin (Bacitracin -) 1 applic TP DAILY [facility] Last Admin: 02/01/17 09:21 Dose: 1 applic Clopidogrel Bisulfate (Plavix -) 75 mg PO DAILY [facility] Last Admin: 02/01/17 09:14 Dose: 75 mg Collagenase (Santyl -) 1 applic TP DAILY [facility] Last Admin: 02/01/17 09:21 Dose: 1 applic Cyanocobalamin (Vitamin B12 -) 1,000 mcg PO DAILY [facility] Last Admin: 02/01/17 09:14 Dose: 1,000 mcg Donepezil HCl (Aricept -) 10 mg PO DAILY [facility] Last Admin: 02/01/17 09:15 Dose: 10 mg Heparin Sodium (Porcine) (Heparin -) 5,000 unit SQ TID [facility] Last Admin: 02/01/17 06:28 Dose: 5,000 unit Meropenem 500 mg/ Dextrose 100 mls @ 200 mls/hr IVPB Q8H-IV [facility] Last Admin: 02/01/17 09:14 Dose: 200 mls/hr Sodium Chloride (Normal Saline -) 1,000 mls @ 42 mls/hr IV ASDIR [facility] Last Admin: 01/31/17 13:14 Dose: 42 mls/hr Insulin Aspart (Novolog Vial Sliding Scale -) 1 vial SQ ACHS [facility] PRN Reason: Protocol Last Admin: 02/01/17 12:00 Dose: Not Given Metoprolol Tartrate (Lopressor Injection -) 5 mg IVPB Q4H PRN PRN Reason: HYPERTENSION Last Admin: 02/01/17 04:13 Dose: 5 mg Metoprolol Tartrate (Lopressor -) 50 mg PO BID [facility] Last Admin: 02/01/17 09:14 Dose: 50 mg Multivitamins/Minerals/Vitamin C (Tab-A-Vit -) 1 tab PO DAILY [facility] Last Admin: 02/01/17 09:14 Dose: 1 tab Constitutional: Yes: Lethargic, NAD Eyes: Yes: EOM Intact Cardiovascular: Yes: Murmur, S1, S2 Respiratory: Yes: Scattered rhonchi Gastrointestinal: Yes: Normal Bowel Sounds, Soft Extremities: Yes: Other Edema: LLE: 1+, RLE: 1+ Wound/Incision: Yes: Clean/Dry Neurological: Yes: Confusion Labs: Laboratory Results - last 24 hr 01/31/17 01/31/17 02/01/17 16:12 22:40 05:45 WBC RBC Hgb Hct MCV MCH MCHC RDW Plt Count MPV ESR 45 H Sodium Potassium Chloride Carbon Dioxide Anion Gap BUN Creatinine POC Glucometer 226.50849 230.91531 Random Glucose Calcium 02/01/17 02/01/17 02/01/17 05:45 05:45 06:14 WBC 20.6 H RBC 4.10 Hgb 10.9 L Hct 34.8 L MCV 84.8 MCH 26.7 MCHC 31.5 L RDW 16.3 H Plt Count 324 MPV 9.1 ESR Sodium 147 H Potassium 4.4 Chloride 117 H Carbon Dioxide 21 Anion Gap 9 BUN 33 H D Creatinine 0.9 D POC Glucometer 219 Random Glucose 210 H Calcium 8.9 Problem List - Problems (1) Hypotension Code(s): I95.9 - HYPOTENSION, UNSPECIFIED Qualifiers: Hypotension type: other hypotension type Qualified Code(s): I95.89 - Other hypotension (2) Sepsis Code(s): A41.9 - SEPSIS, UNSPECIFIED ORGANISM Qualifiers: Sepsis type: sepsis due to unspecified organism Qualified Code(s): A41.9 - Sepsis, unspecified organism (3) UTI (urinary tract infection) Code(s): N39.0 - URINARY TRACT INFECTION, SITE NOT SPECIFIED Qualifiers: Urinary tract infection type: site unspecified Hematuria presence: with hematuria Qualified Code(s): N39.0 - Urinary tract infection, site not specified (4) CAD (coronary artery disease) Code(s): I25.10 - ATHSCL HEART DISEASE OF [place] CORONARY ARTERY W/O ANG PCTRS (5) Dementia Code(s): F03.90 - UNSPECIFIED DEMENTIA WITHOUT BEHAVIORAL DISTURBANCE Qualifiers: Dementia type: Alzheimer's disease Dementia behavioral disturbance: without behavioral disturbance (6) Open wound of left foot Code(s): S91.302A - UNSPECIFIED OPEN WOUND, LEFT FOOT, INITIAL ENCOUNTER Qualifiers: Encounter type: sequela Qualified Code(s): S91.302S - Unspecified open wound, left foot, sequela (7) NICHOLAS (acute kidney injury) Code(s): N17.9 - ACUTE KIDNEY FAILURE, UNSPECIFIED Assessment/Plan Sepsis due to UTI / Bacteremia Dementia CHF / Systolic dysfunction DM PAD Chronic foot ulcers/gangrene NICHOLAS (baseline SCr 0.7) ABX per ID O2 as needed Aspiration precautions Rate control ASA and Plavix Follow [facility] Local wound care VTE prophylaxis Dr Qureshi
[2017-02-01] MEDS: SODIUM CHLORIDE 1,000 ML IV SCH (14:44)
--- NOTE | 2017-02-01 23:12 | PN ---
Progress Note, Physician - Current Medication List Current Medications: Active Medications Acetaminophen (Tylenol -) 650 mg PO Q6H PRN PRN Reason: FEVER OR PAIN Last Admin: 01/31/17 17:48 Dose: 650 mg Aspirin (Ecotrin -) 81 mg PO DAILY [facility] Last Admin: 02/01/17 09:14 Dose: 81 mg Bacitracin (Bacitracin -) 1 applic TP DAILY [facility] Last Admin: 02/01/17 09:21 Dose: 1 applic Clopidogrel Bisulfate (Plavix -) 75 mg PO DAILY [facility] Last Admin: 02/01/17 09:14 Dose: 75 mg Collagenase (Santyl -) 1 applic TP DAILY [facility] Last Admin: 02/01/17 09:21 Dose: 1 applic Cyanocobalamin (Vitamin B12 -) 1,000 mcg PO DAILY [facility] Last Admin: 02/01/17 09:14 Dose: 1,000 mcg Donepezil HCl (Aricept -) 10 mg PO DAILY [facility] Last Admin: 02/01/17 09:15 Dose: 10 mg Heparin Sodium (Porcine) (Heparin -) 5,000 unit SQ TID [facility] Last Admin: 02/01/17 21:40 Dose: 5,000 unit Meropenem 500 mg/ Dextrose 100 mls @ 200 mls/hr IVPB Q8H-IV [facility] Last Admin: 02/01/17 17:04 Dose: 200 mls/hr Sodium Chloride (Normal Saline -) 1,000 mls @ 42 mls/hr IV ASDIR [facility] Last Admin: 02/01/17 14:44 Dose: Not Given Insulin Aspart (Novolog Vial Sliding Scale -) 1 vial SQ ACHS [facility] PRN Reason: Protocol Last Admin: 02/01/17 22:03 Dose: 1 units Metoprolol Tartrate (Lopressor Injection -) 5 mg IVPB Q4H PRN PRN Reason: HYPERTENSION Last Admin: 02/01/17 04:13 Dose: 5 mg Metoprolol Tartrate (Lopressor -) 50 mg PO BID [facility] Last Admin: 02/01/17 21:40 Dose: 50 mg Multivitamins/Minerals/Vitamin C (Tab-A-Vit -) 1 tab PO DAILY [facility] Last Admin: 02/01/17 09:14 Dose: 1 tab - Objective Vital Signs: Vital Signs Temperature 99.2 F 02/01/17 22:00 Pulse Rate 110 H 02/01/17 22:00 Respiratory Rate 18 02/01/17 22:00 Blood Pressure 121/65 02/01/17 22:00 O2 Sat by Pulse Oximetry (%) 98 02/01/17 21:00 Labs: CBC, BMP 02/01/17 05:45 02/01/17 05:45 INR, PTT INR 1.44 (0.82-1.09) H 01/29/17 15:00
[2017-02-02] MEDS ORDERED: PT OWN MED DRAWER 7, Y5N ONE ×2 (01:40→17:30)
[2017-02-02] MEDS: MEROPENEM 500 MG in DEXTROSE 5%-WATER - 100 ML IVPB SCH ×3 (01:42→17:43)
[2017-02-02] MEDS: HEPARIN NA (PORCINE) 5,000 UNITS/ML 1ML VIAL SQ SCH ×3 (06:10→21:37)
[2017-02-02] MEDS: INSULIN SLIDING SCALE (NOVOLOG) 1 VIAL SQ SCH ×4 (06:11→21:39)
--- NOTE | 2017-02-02 09:06 | PN ---
Progress Note, Physician Chief Complaint: Cardiology for Addy Agitated, confused. TELE: AF-overall improved but still episodes into 120s w/ VPCs on occasion - Current Medication List Current Medications: Active Medications Acetaminophen (Tylenol -) 650 mg PO Q6H PRN PRN Reason: FEVER OR PAIN Last Admin: 01/31/17 17:48 Dose: 650 mg Aspirin (Ecotrin -) 81 mg PO DAILY [facility] Last Admin: 02/01/17 09:14 Dose: 81 mg Bacitracin (Bacitracin -) 1 applic TP DAILY [facility] Last Admin: 02/01/17 09:21 Dose: 1 applic Clopidogrel Bisulfate (Plavix -) 75 mg PO DAILY [facility] Last Admin: 02/01/17 09:14 Dose: 75 mg Collagenase (Santyl -) 1 applic TP DAILY [facility] Last Admin: 02/01/17 09:21 Dose: 1 applic Cyanocobalamin (Vitamin B12 -) 1,000 mcg PO DAILY [facility] Last Admin: 02/01/17 09:14 Dose: 1,000 mcg Donepezil HCl (Aricept -) 10 mg PO DAILY [facility] Last Admin: 02/01/17 09:15 Dose: 10 mg Heparin Sodium (Porcine) (Heparin -) 5,000 unit SQ TID [facility] Last Admin: 02/02/17 06:10 Dose: 5,000 unit Meropenem 500 mg/ Dextrose 100 mls @ 200 mls/hr IVPB Q8H-IV [facility] Last Admin: 02/02/17 01:42 Dose: 200 mls/hr Sodium Chloride (Normal Saline -) 1,000 mls @ 42 mls/hr IV ASDIR [facility] Last Admin: 02/01/17 14:44 Dose: Not Given Insulin Aspart (Novolog Vial Sliding Scale -) 1 vial SQ ACHS [facility] PRN Reason: Protocol Last Admin: 02/02/17 06:11 Dose: 1 units Metoprolol Tartrate (Lopressor Injection -) 5 mg IVPB Q4H PRN PRN Reason: HYPERTENSION Last Admin: 02/01/17 04:13 Dose: 5 mg Metoprolol Tartrate (Lopressor -) 50 mg PO BID [facility] Last Admin: 02/01/17 21:40 Dose: 50 mg Multivitamins/Minerals/Vitamin C (Tab-A-Vit -) 1 tab PO DAILY [facility] Last Admin: 02/01/17 09:14 Dose: 1 tab - Objective Vital Signs: Vital Signs Temperature 98.4 F 02/02/17 06:00 Pulse Rate 101 H 02/02/17 06:00 Respiratory Rate 18 02/02/17 06:00 Blood Pressure 118/75 02/02/17 06:00 O2 Sat by Pulse Oximetry (%) 98 02/01/17 21:00 Constitutional: Yes: Anxious Eyes: Yes: Conjunctiva Clear Respiratory: Yes: CTA Bilaterally (no rales or wheezing) Gastrointestinal: Yes: Soft Edema: No (necrotic toes) Labs: CBC, BMP 02/01/17 05:45 02/01/17 05:45 INR, PTT INR 1.44 (0.82-1.09) H 01/29/17 15:00 Laboratory Tests 02/01/17 02/01/17 05:45 05:45 WBC 20.6 H Hgb 10.9 L Hct 34.8 L Plt Count 324 Sodium 147 H Potassium 4.4 BUN 33 H D Creatinine 0.9 D Calcium 8.9 - ....Imaging EKG: Image Reviewed Assessment/Plan Problem List - Problems (1) Hypotension now resolved. Assessment/Plan: Contributing factors include fever, sepsis, AF with RVR, dehydration. Leukocytosis; bacteruria. On antibiotics Code(s): I95.9 - HYPOTENSION, UNSPECIFIED Qualifiers: Hypotension type: other hypotension type Qualified Code(s): I95.89 - Other hypotension (2) Sepsis Assessment/Plan: On antibiotics; f/u c/s. Continue IV fluidsluids, but reevaluate rate frequently due to tendency to fluid overload (poor LVEF). Code(s): A41.9 - SEPSIS, UNSPECIFIED ORGANISM Qualifiers: Sepsis type: sepsis due to unspecified organism Qualified Code(s): A41.9 - Sepsis, unspecified organism (3) UTI (urinary tract infection) Code(s): N39.0 - URINARY TRACT INFECTION, SITE NOT SPECIFIED Qualifiers: Urinary tract infection type: site unspecified Hematuria presence: with hematuria Qualified Code(s): N39.0 - Urinary tract infection, site not specified (4) Acute on chronic systolic (congestive) heart failure Assessment/Plan: Appears euvolemic at this time. Code(s): I50.23 - ACUTE ON CHRONIC SYSTOLIC (CONGESTIVE) HEART FAILURE (5) CAD (coronary artery disease) Code(s): I25.10 - ATHSCL HEART DISEASE OF [place] CORONARY ARTERY W/O ANG PCTRS (6) Dementia Code(s): F03.90 - UNSPECIFIED DEMENTIA WITHOUT BEHAVIORAL DISTURBANCE Qualifiers: Dementia type: Alzheimer's disease Dementia behavioral disturbance: without behavioral disturbance (7) Infection of left foot Code(s): L08.9 - LOCAL INFECTION OF THE SKIN AND SUBCUTANEOUS TISSUE, UNSP (8) Leukocytosis Code(s): D72.829 - ELEVATED WHITE BLOOD CELL COUNT, UNSPECIFIED (9) NSTEMI (non-ST elevated myocardial infarction) Code(s): I21.4 - NON-ST ELEVATION (NSTEMI) MYOCARDIAL INFARCTION (10) Diabetes Code(s): E11.9 - TYPE 2 DIABETES MELLITUS WITHOUT COMPLICATIONS 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 If remains consistently > 120bpm can increase to 75mg BID On ASA and clopidogrel; Not considered candidate for warfarin or NOAC (f/u recent ICU admission). Anemia required PRBCs. Code(s): I48.91 - UNSPECIFIED ATRIAL FIBRILLATION (14) Aortic stenosis Assessment/Plan: On previous admission earlier this year, pt's daughters opted for conservative management regarding poor LVEF and significant valvular disease. Code(s): I35.0 - NONRHEUMATIC AORTIC (VALVE) STENOSIS (15) Hyperlipidemia Assessment/Plan: statin; keep LDL cholesterol < 70 mg/dL. Code(s): E78.5 - HYPERLIPIDEMIA, UNSPECIFIED
--- NOTE | 2017-02-02 09:51 | PN ---
Progress Note, Physician History of Present Illness: Awake, not conversant Temps down- afebrile WBC remains elevated - Current Medication List Current Medications: Active Medications Acetaminophen (Tylenol -) 650 mg PO Q6H PRN PRN Reason: FEVER OR PAIN Last Admin: 01/31/17 17:48 Dose: 650 mg Aspirin (Ecotrin -) 81 mg PO DAILY [facility] Last Admin: 02/01/17 09:14 Dose: 81 mg Bacitracin (Bacitracin -) 1 applic TP DAILY [facility] Last Admin: 02/01/17 09:21 Dose: 1 applic Clopidogrel Bisulfate (Plavix -) 75 mg PO DAILY [facility] Last Admin: 02/01/17 09:14 Dose: 75 mg Collagenase (Santyl -) 1 applic TP DAILY [facility] Last Admin: 02/01/17 09:21 Dose: 1 applic Cyanocobalamin (Vitamin B12 -) 1,000 mcg PO DAILY [facility] Last Admin: 02/01/17 09:14 Dose: 1,000 mcg Donepezil HCl (Aricept -) 10 mg PO DAILY [facility] Last Admin: 02/01/17 09:15 Dose: 10 mg Heparin Sodium (Porcine) (Heparin -) 5,000 unit SQ TID [facility] Last Admin: 02/02/17 06:10 Dose: 5,000 unit Meropenem 500 mg/ Dextrose 100 mls @ 200 mls/hr IVPB Q8H-IV [facility] Last Admin: 02/02/17 01:42 Dose: 200 mls/hr Sodium Chloride (Normal Saline -) 1,000 mls @ 42 mls/hr IV ASDIR [facility] Last Admin: 02/01/17 14:44 Dose: Not Given Insulin Aspart (Novolog Vial Sliding Scale -) 1 vial SQ ACHS [facility] PRN Reason: Protocol Last Admin: 02/02/17 06:11 Dose: 1 units Metoprolol Tartrate (Lopressor Injection -) 5 mg IVPB Q4H PRN PRN Reason: HYPERTENSION Last Admin: 02/01/17 04:13 Dose: 5 mg Metoprolol Tartrate (Lopressor -) 50 mg PO BID [facility] Last Admin: 02/01/17 21:40 Dose: 50 mg Multivitamins/Minerals/Vitamin C (Tab-A-Vit -) 1 tab PO DAILY [facility] Last Admin: 02/01/17 09:14 Dose: 1 tab - Objective Vital Signs: Vital Signs Temperature 98.4 F 07/23/17 06:00 Pulse Rate 101 H 02/02/17 06:00 Respiratory Rate 18 02/02/17 06:00 Blood Pressure 118/75 02/02/17 06:00 O2 Sat by Pulse Oximetry (%) 98 02/01/17 21:00 Constitutional: Yes: No Distress Eyes: Yes: Conjunctiva Clear Cardiovascular: Yes: Regular Rate and Rhythm, S1, S2 Respiratory: Yes: CTA Bilaterally Gastrointestinal: Yes: Normal Bowel Sounds, Soft. No: Tenderness Extremities: Yes: Other (+ necrotic foot wounds) Labs: CBC, BMP 02/01/17 05:45 02/01/17 05:45 INR, PTT INR 1.44 (0.82-1.09) H 01/29/17 15:00 Assessment/Plan Polymicrobial bacteremia ESBL UTI/ Sepsis secondary to UTI Fever/ leukocytosis + C difficle Gangrene Continue meropenem Add flagyl Contact precautions
[2017-02-02] MEDS: MULTIVITAMINS (DAILY MVI) TABLET (FP) PO SCH (10:21)
[2017-02-02] MEDS: CYANOCOBALAMIN 1,000 MCG TABLET (FP) PO SCH (10:22)
[2017-02-02] MEDS: METOPROLOL TARTRATE 50 MG TABLET (FP) PO SCH ×2 (10:22→21:38)
[2017-02-02] MEDS: CLOPIDOGREL BISULFATE 75 MG TABLET (FP) PO SCH (10:22)
[2017-02-02] MEDS: ASPIRIN COATED 81 MG TABLET.EC PO SCH (10:22)
[2017-02-02] MEDS: METOPROLOL TARTRATE 5 MG/5 ML VIAL IVPB PRN (10:23)
[2017-02-02] MEDS: DONEPEZIL HCL 10 MG TABLET (FP) PO SCH (10:23)
[2017-02-02] MEDS: BACITRACIN 15 GM TUBE TOPICAL OINTMENT TP SCH (10:24)
[2017-02-02] MEDS: COLLAGENASE CLOSTRIDIUM HIST. 30 GRAMS TUBE TP SCH (10:25)
[2017-02-02] MEDS: SODIUM CHLORIDE 1,000 ML IV SCH (11:44)
--- NOTE | 2017-02-02 11:56 | PN ---
Progress Note (short form) - Note Progress Note: Patient seen and examined in the Telemetry unit. Awake not able to answer questions. Intermittent Rapid AFib persists. NAD on NC O2. Intake & Output 01/30/17 01/31/17 02/01/17 02/02/17 23:59 23:59 23:59 23:59 Intake Total 1375 1818 772 294 Output Total 900 1600 950 400 Balance 475 218 -178 -106 Weight 148 lb 148 lb 9.6 oz Last Vital Signs Temp Pulse Resp BP Pulse Ox 98.4 F 140 H 18 115/65 98 02/02/17 06:00 02/02/17 10:23 02/02/17 06:00 02/02/17 10:23 02/01/17 21:00 Active Medications Acetaminophen (Tylenol -) 650 mg PO Q6H PRN PRN Reason: FEVER OR PAIN Last Admin: 01/31/17 17:48 Dose: 650 mg Aspirin (Ecotrin -) 81 mg PO DAILY [facility] Last Admin: 02/02/17 10:22 Dose: 81 mg Bacitracin (Bacitracin -) 1 applic TP DAILY [facility] Last Admin: 02/02/17 10:24 Dose: 1 applic Clopidogrel Bisulfate (Plavix -) 75 mg PO DAILY [facility] Last Admin: 02/02/17 10:22 Dose: 75 mg Collagenase (Santyl -) 1 applic TP DAILY [facility] Last Admin: 02/02/17 10:25 Dose: 1 applic Cyanocobalamin (Vitamin B12 -) 1,000 mcg PO DAILY [facility] Last Admin: 02/02/17 10:22 Dose: 1,000 mcg Donepezil HCl (Aricept -) 10 mg PO DAILY [facility] Last Admin: 02/02/17 10:23 Dose: 10 mg Heparin Sodium (Porcine) (Heparin -) 5,000 unit SQ TID [facility] Last Admin: 02/02/17 06:10 Dose: 5,000 unit Meropenem 500 mg/ Dextrose 100 mls @ 200 mls/hr IVPB Q8H-IV [facility] Last Admin: 02/02/17 10:51 Dose: 200 mls/hr Sodium Chloride (Normal Saline -) 1,000 mls @ 42 mls/hr IV ASDIR [facility] Last Admin: 02/02/17 11:44 Dose: 42 mls/hr Insulin Aspart (Novolog Vial Sliding Scale -) 1 vial SQ ACHS [facility] PRN Reason: Protocol Last Admin: 02/02/17 11:43 Dose: 2 units Metoprolol Tartrate (Lopressor Injection -) 5 mg IVPB Q4H PRN PRN Reason: HYPERTENSION Last Admin: 02/02/17 10:23 Dose: 5 mg Metoprolol Tartrate (Lopressor -) 50 mg PO BID [facility] Last Admin: 02/02/17 10:22 Dose: 50 mg Metronidazole (Flagyl -) 500 mg PO TID [facility] Multivitamins/Minerals/Vitamin C (Tab-A-Vit -) 1 tab PO DAILY [facility] Last Admin: 02/02/17 10:21 Dose: 1 tab Constitutional: Yes: Confused, NAD Eyes: Yes: EOM Intact Cardiovascular: Yes: Murmur, S1, S2 Respiratory: Yes: Scattered rhonchi Gastrointestinal: Yes: Normal Bowel Sounds, Soft Extremities: Yes: Other Edema: LLE: 1+, RLE: 1+ Wound/Incision: Yes: Clean/Dry Neurological: Yes: Confusion Labs: Laboratory Results - last 24 hr 01/29/17 02/01/17 02/01/17 15:00 16:19 21:51 POC Glucometer 245 185 Blood Type AB NEGATIVE Antibody Screen Negative Crossmatch See Detail 02/02/17 05:27 POC Glucometer 199 Blood Type Antibody Screen Crossmatch Problem List - Problems (1) Hypotension Code(s): I95.9 - HYPOTENSION, UNSPECIFIED Qualifiers: Hypotension type: other hypotension type Qualified Code(s): I95.89 - Other hypotension (2) Sepsis Code(s): A41.9 - SEPSIS, UNSPECIFIED ORGANISM Qualifiers: Sepsis type: sepsis due to unspecified organism Qualified Code(s): A41.9 - Sepsis, unspecified organism (3) UTI (urinary tract infection) Code(s): N39.0 - URINARY TRACT INFECTION, SITE NOT SPECIFIED Qualifiers: Urinary tract infection type: site unspecified Hematuria presence: with hematuria Qualified Code(s): N39.0 - Urinary tract infection, site not specified (4) CAD (coronary artery disease) Code(s): I25.10 - ATHSCL HEART DISEASE OF [place] CORONARY ARTERY W/O ANG PCTRS (5) Dementia Code(s): F03.90 - UNSPECIFIED DEMENTIA WITHOUT BEHAVIORAL DISTURBANCE Qualifiers: Dementia type: Alzheimer's disease Dementia behavioral disturbance: without behavioral disturbance (6) Open wound of left foot Code(s): S91.302A - UNSPECIFIED OPEN WOUND, LEFT FOOT, INITIAL ENCOUNTER Qualifiers: Encounter type: sequela Qualified Code(s): S91.302S - Unspecified open wound, left foot, sequela (7) NICHOLAS (acute kidney injury) Code(s): N17.9 - ACUTE KIDNEY FAILURE, UNSPECIFIED Assessment/Plan Sepsis due to UTI / Bacteremia Dementia CHF / Systolic dysfunction DM PAD Chronic foot ulcers/gangrene NICHOLAS (baseline SCr 0.7) Rate control per Cardiology ABX per ID O2 as needed Aspiration precautions ASA and Plavix Follow [facility] Local wound care VTE prophylaxis Telemetry monitoring Dr Qureshi
[2017-02-02] MEDS: metroNIDAZOLE 250 MG TABLET PO SCH ×2 (15:12→21:38)
--- NOTE | 2017-02-02 22:06 | PN ---
Progress Note, Physician - Current Medication List Current Medications: Active Medications Acetaminophen (Tylenol -) 650 mg PO Q6H PRN PRN Reason: FEVER OR PAIN Last Admin: 01/31/17 17:48 Dose: 650 mg Aspirin (Ecotrin -) 81 mg PO DAILY [facility] Last Admin: 02/02/17 10:22 Dose: 81 mg Bacitracin (Bacitracin -) 1 applic TP DAILY [facility] Last Admin: 02/02/17 10:24 Dose: 1 applic Clopidogrel Bisulfate (Plavix -) 75 mg PO DAILY [facility] Last Admin: 02/02/17 10:22 Dose: 75 mg Collagenase (Santyl -) 1 applic TP DAILY [facility] Last Admin: 02/02/17 10:25 Dose: 1 applic Cyanocobalamin (Vitamin B12 -) 1,000 mcg PO DAILY [facility] Last Admin: 02/02/17 10:22 Dose: 1,000 mcg Donepezil HCl (Aricept -) 10 mg PO DAILY [facility] Last Admin: 02/02/17 10:23 Dose: 10 mg Heparin Sodium (Porcine) (Heparin -) 5,000 unit SQ TID [facility] Last Admin: 02/02/17 21:37 Dose: 5,000 unit Meropenem 500 mg/ Dextrose 100 mls @ 200 mls/hr IVPB Q8H-IV [facility] Last Admin: 02/02/17 17:43 Dose: 200 mls/hr Sodium Chloride (Normal Saline -) 1,000 mls @ 42 mls/hr IV ASDIR [facility] Last Admin: 02/02/17 11:44 Dose: 42 mls/hr Insulin Aspart (Novolog Vial Sliding Scale -) 1 vial SQ ACHS [facility] PRN Reason: Protocol Last Admin: 02/02/17 21:39 Dose: 2 units Metoprolol Tartrate (Lopressor Injection -) 5 mg IVPB Q4H PRN PRN Reason: HYPERTENSION Last Admin: 02/02/17 10:23 Dose: 5 mg Metoprolol Tartrate (Lopressor -) 50 mg PO BID [facility] Last Admin: 02/02/17 21:38 Dose: 50 mg Metronidazole (Flagyl -) 500 mg PO TID [facility] Last Admin: 02/02/17 21:38 Dose: 500 mg Multivitamins/Minerals/Vitamin C (Tab-A-Vit -) 1 tab PO DAILY [facility] Last Admin: 02/02/17 10:21 Dose: 1 tab - Objective Vital Signs: Vital Signs Temperature 99.4 F 02/02/17 18:16 Pulse Rate 118 H 02/02/17 18:16 Respiratory Rate 20 02/02/17 18:16 Blood Pressure 105/70 02/02/17 18:16 O2 Sat by Pulse Oximetry (%) 98 02/02/17 09:00 Labs: CBC, BMP 02/01/17 05:45 02/01/17 05:45 INR, PTT INR 1.44 (0.82-1.09) H 01/29/17 15:00
[2017-02-03] MEDS ORDERED: PT OWN MED DRAWER 7, Y5N ONE (00:37)
[2017-02-03] MEDS: MEROPENEM 500 MG in DEXTROSE 5%-WATER - 100 ML IVPB SCH ×2 (01:25→09:47)
[2017-02-03] MEDS: metroNIDAZOLE 250 MG TABLET PO SCH ×3 (06:02→22:19)
[2017-02-03] MEDS: HEPARIN NA (PORCINE) 5,000 UNITS/ML 1ML VIAL SQ SCH ×3 (06:02→22:20)
[2017-02-03] MEDS: INSULIN SLIDING SCALE (NOVOLOG) 1 VIAL SQ SCH ×4 (06:02→22:20)
[2017-02-03 07:47] LABS: BASOPHIL 0.3 % (0-2.0); EOSINOPHIL 0.6 % (0-4.5); MCH 26.6 pg (25.7-33.7); MCHC 31.1 g/dl (32.0-35.9); MEAN CELL VOLUME 85.5 fl (80-96); MEAN PLT VOLUME 9.1 fl (7.5-11.1); NEUTROPHILS 79.9 % (42.8-82.8); PLATELET COUNT 404 K/MM3 (134-434); RDW 16.7 % (11.9-15.9)
[2017-02-03 08:36] LABS: ALK PHOS 83 U/L (45-117); ANION GAP 9 (8-16); BILIRUBIN,TOTAL 0.5 mg/dL (0.2-1.0); CO2 24 mmol/L (21-32); CREATININE 0.9 mg/dL (0.7-1.3); GLUCOSE,RANDOM 159 mg/dL (74-106); SGOT/AST 15 U/L (15-37); SGPT/ALT 22 U/L (12-78); TOT PROT 6.1 g/dl (6.4-8.2)
[2017-02-03] MEDS: ASPIRIN COATED 81 MG TABLET.EC PO SCH (09:47)
[2017-02-03] MEDS: CLOPIDOGREL BISULFATE 75 MG TABLET (FP) PO SCH (09:47)
[2017-02-03] MEDS: MULTIVITAMINS (DAILY MVI) TABLET (FP) PO SCH (09:47)
[2017-02-03] MEDS: DONEPEZIL HCL 10 MG TABLET (FP) PO SCH (09:47)
[2017-02-03] MEDS: CYANOCOBALAMIN 1,000 MCG TABLET (FP) PO SCH (09:47)
[2017-02-03] MEDS: METOPROLOL TARTRATE 50 MG TABLET (FP) PO SCH ×2 (09:47→22:19)
[2017-02-03] MEDS: BACITRACIN 15 GM TUBE TOPICAL OINTMENT TP SCH (10:10)
--- NOTE | 2017-02-03 10:19 | PN ---
Progress Note, Physician Chief Complaint: ID Day 4 Meropenem In good spirits no complaints Treatment for bacteremia - Current Medication List Current Medications: Active Medications Acetaminophen (Tylenol -) 650 mg PO Q6H PRN PRN Reason: FEVER OR PAIN Last Admin: 01/31/17 17:48 Dose: 650 mg Aspirin (Ecotrin -) 81 mg PO DAILY [facility] Last Admin: 02/03/17 09:47 Dose: 81 mg Bacitracin (Bacitracin -) 1 applic TP DAILY [facility] Last Admin: 02/03/17 10:10 Dose: 1 applic Clopidogrel Bisulfate (Plavix -) 75 mg PO DAILY [facility] Last Admin: 02/03/17 09:47 Dose: 75 mg Collagenase (Santyl -) 1 applic TP DAILY [facility] Last Admin: 02/02/17 10:25 Dose: 1 applic Cyanocobalamin (Vitamin B12 -) 1,000 mcg PO DAILY [facility] Last Admin: 02/03/17 09:47 Dose: 1,000 mcg Donepezil HCl (Aricept -) 10 mg PO DAILY [facility] Last Admin: 02/03/17 09:47 Dose: 10 mg Heparin Sodium (Porcine) (Heparin -) 5,000 unit SQ TID [facility] Last Admin: 02/03/17 06:02 Dose: 5,000 unit Meropenem 500 mg/ Dextrose 100 mls @ 200 mls/hr IVPB Q8H-IV [facility] Last Admin: 02/03/17 09:47 Dose: 200 mls/hr Sodium Chloride (Normal Saline -) 1,000 mls @ 42 mls/hr IV ASDIR [facility] Last Admin: 02/02/17 11:44 Dose: 42 mls/hr Insulin Aspart (Novolog Vial Sliding Scale -) 1 vial SQ ACHS [facility] PRN Reason: Protocol Last Admin: 02/03/17 06:02 Dose: 1 units Metoprolol Tartrate (Lopressor Injection -) 5 mg IVPB Q4H PRN PRN Reason: HYPERTENSION Last Admin: 02/02/17 10:23 Dose: 5 mg Metoprolol Tartrate (Lopressor -) 50 mg PO BID [facility] Last Admin: 02/03/17 09:47 Dose: 50 mg Metronidazole (Flagyl -) 500 mg PO TID [facility] Last Admin: 02/03/17 06:02 Dose: 500 mg Multivitamins/Minerals/Vitamin C (Tab-A-Vit -) 1 tab PO DAILY [facility] Last Admin: 02/03/17 09:47 Dose: 1 tab - Objective Vital Signs: Vital Signs Temperature 98.4 F 02/03/17 06:00 Pulse Rate 112 H 02/03/17 06:00 Respiratory Rate 18 02/03/17 06:00 Blood Pressure 132/82 02/03/17 06:00 O2 Sat by Pulse Oximetry (%) 96 02/02/17 21:00 Constitutional: Yes: No Distress HENT: Yes: WNL, Atraumatic Neck: Yes: WNL, Supple Cardiovascular: Yes: Regular Rate and Rhythm, S1, S2 Respiratory: Yes: WNL, Regular, CTA Bilaterally Gastrointestinal: Yes: WNL, Normal Bowel Sounds, Soft. No: Tenderness, Tenderness, Epigastrium Extremities: Yes: Other (gangen LE) Labs: CBC, BMP 02/03/17 06:10 02/03/17 06:10 INR, PTT INR 1.44 (0.82-1.09) H 01/29/17 15:00 Problem List - Problems (1) Sepsis Code(s): A41.9 - SEPSIS, UNSPECIFIED ORGANISM Qualifiers: Sepsis type: sepsis due to unspecified organism Qualified Code(s): A41.9 - Sepsis, unspecified organism (2) UTI (urinary tract infection) Code(s): N39.0 - URINARY TRACT INFECTION, SITE NOT SPECIFIED Qualifiers: Urinary tract infection type: site unspecified Hematuria presence: with hematuria Qualified Code(s): N39.0 - Urinary tract infection, site not specified (3) Gram-negative bacteremia Code(s): R78.81 - BACTEREMIA (4) Multiple drug resistant organism (MDRO) culture positive Code(s): Z16.24 - RESISTANCE TO MULTIPLE ANTIBIOTICS Assessment/Plan Microbiology 01/29/17 15:06 Urine - Urine [place] Urine Culture - Final Escherichia Coli Esbl [employer] Klebsiella Pneumoniae Proteus Mirabilis Contaminated: Please Repeat#2 01/29/17 15:06 Blood - Peripheral Venous Blood Culture - Final Escherichia Coli Esbl [employer] Proteus Mirabilis 01/29/17 14:30 Blood - Peripheral Venous Blood Culture - Final Escherichia Coli Esbl [employer] Klebsiella Pneumoniae Laboratory Tests 01/29/17 02/03/17 02/03/17 18:00 06:10 06:10 WBC 23.7 H 15.0 H Hgb 10.4 L Hct 33.4 L Plt Count 404 D BUN 17 D Creatinine 0.9 Assesment Polymicrobial bacteremia urinary source UTI Gangrene of the LE C diff toxin neg Ag positive Plan Insert a PICC line Ertepenem for 1 week in [place] ?? Start metronidazole even though I am not sure he has C diff infection 10 days [place] REYES
[2017-02-03] MEDS: COLLAGENASE CLOSTRIDIUM HIST. 30 GRAMS TUBE TP SCH (11:37)
--- NOTE | 2017-02-03 11:48 | PN ---
Progress Note, Physician History of Present Illness: PULMONARY AWAKE,CONFUSED ,NAD - Current Medication List Current Medications: Active Medications Acetaminophen (Tylenol -) 650 mg PO Q6H PRN PRN Reason: FEVER OR PAIN Last Admin: 01/31/17 17:48 Dose: 650 mg Aspirin (Ecotrin -) 81 mg PO DAILY [facility] Last Admin: 02/03/17 09:47 Dose: 81 mg Bacitracin (Bacitracin -) 1 applic TP DAILY [facility] Last Admin: 02/03/17 10:10 Dose: 1 applic Clopidogrel Bisulfate (Plavix -) 75 mg PO DAILY [facility] Last Admin: 02/03/17 09:47 Dose: 75 mg Collagenase (Santyl -) 1 applic TP DAILY [facility] Last Admin: 02/03/17 11:37 Dose: 1 applic Cyanocobalamin (Vitamin B12 -) 1,000 mcg PO DAILY [facility] Last Admin: 02/03/17 09:47 Dose: 1,000 mcg Donepezil HCl (Aricept -) 10 mg PO DAILY [facility] Last Admin: 02/03/17 09:47 Dose: 10 mg Heparin Sodium (Porcine) (Heparin -) 5,000 unit SQ TID [facility] Last Admin: 02/03/17 06:02 Dose: 5,000 unit Sodium Chloride (Normal Saline -) 1,000 mls @ 42 mls/hr IV ASDIR [facility] Last Admin: 02/02/17 11:44 Dose: 42 mls/hr Ertapenem 1 gm/ Sodium (Chloride) 50 mls @ 50 mls/hr IVPB DAILY [facility] PRN Reason: Protocol Insulin Aspart (Novolog Vial Sliding Scale -) 1 vial SQ ACHS [facility] PRN Reason: Protocol Last Admin: 02/03/17 06:02 Dose: 1 units Metoprolol Tartrate (Lopressor Injection -) 5 mg IVPB Q4H PRN PRN Reason: HYPERTENSION Last Admin: 02/02/17 10:23 Dose: 5 mg Metoprolol Tartrate (Lopressor -) 50 mg PO BID [facility] Last Admin: 02/03/17 09:47 Dose: 50 mg Metronidazole (Flagyl -) 500 mg PO TID [facility] Multivitamins/Minerals/Vitamin C (Tab-A-Vit -) 1 tab PO DAILY [facility] Last Admin: 02/03/17 09:47 Dose: 1 tab - Objective Vital Signs: Vital Signs Temperature 98.4 F 02/03/17 06:00 Pulse Rate 112 H 02/03/17 06:00 Respiratory Rate 18 02/03/17 06:00 Blood Pressure 132/82 02/03/17 06:00 O2 Sat by Pulse Oximetry (%) 96 02/02/17 21:00 Constitutional: Yes: Well Nourished, Calm Eyes: Yes: WNL HENT: Yes: WNL Neck: Yes: WNL Cardiovascular: Yes: Pulse Irregular, S1, S2 Respiratory: Yes: Rhonchi (FEW SCATTERED DE RHONCHI) Gastrointestinal: Yes: Normal Bowel Sounds, Soft Extremities: Yes: WNL Edema: Yes Edema: LLE: 1+, RLE: 1+ Labs: CBC, BMP 02/03/17 06:10 02/03/17 06:10 INR, PTT INR 1.44 (0.82-1.09) H 01/29/17 15:00 Assessment/Plan Problem List - Problems (1) Hypotension Code(s): I95.9 - HYPOTENSION, UNSPECIFIED Qualifiers: Hypotension type: other hypotension type Qualified Code(s): I95.89 - Other hypotension (2) Sepsis Code(s): A41.9 - SEPSIS, UNSPECIFIED ORGANISM Qualifiers: Sepsis type: sepsis due to unspecified organism Qualified Code(s): A41.9 - Sepsis, unspecified organism (3) UTI (urinary tract infection) Code(s): N39.0 - URINARY TRACT INFECTION, SITE NOT SPECIFIED Qualifiers: Urinary tract infection type: site unspecified Hematuria presence: with hematuria Qualified Code(s): N39.0 - Urinary tract infection, site not specified (4) CAD (coronary artery disease) Code(s): I25.10 - ATHSCL HEART DISEASE OF [place] CORONARY ARTERY W/O ANG PCTRS (5) Dementia Code(s): F03.90 - UNSPECIFIED DEMENTIA WITHOUT BEHAVIORAL DISTURBANCE Qualifiers: Dementia type: Alzheimer's disease Dementia behavioral disturbance: without behavioral disturbance (6) Open wound of left foot Code(s): S91.302A - UNSPECIFIED OPEN WOUND, LEFT FOOT, INITIAL ENCOUNTER Qualifiers: Encounter type: sequela Qualified Code(s): S91.302S - Unspecified open wound, left foot, sequela (7) NICHOLAS (acute kidney injury) Code(s): N17.9 - ACUTE KIDNEY FAILURE, UNSPECIFIED Assessment/Plan Sepsis due to UTI / Bacteremia Dementia CHF / Systolic dysfunction DM PAD Chronic foot ulcers/gangrene NICHOLAS Rate control per Cardiology ABX per ID O2 as needed Aspiration precautions ASA and Plavix Follow [facility] Local wound care VTE prophylaxis DR BERGER
[2017-02-03] MEDS: SODIUM CHLORIDE 1,000 ML IV SCH (11:54)
--- NOTE | 2017-02-03 12:31 | PN ---
Progress Note, Physician - Current Medication List Current Medications: Active Medications Acetaminophen (Tylenol -) 650 mg PO Q6H PRN PRN Reason: FEVER OR PAIN Last Admin: 01/31/17 17:48 Dose: 650 mg Aspirin (Ecotrin -) 81 mg PO DAILY [facility] [place] Last Admin: 02/03/17 09:47 Dose: 81 mg Bacitracin (Bacitracin -) 1 applic TP DAILY [facility] Last Admin: 02/03/17 10:10 Dose: 1 applic Clopidogrel Bisulfate (Plavix -) 75 mg PO DAILY [facility] Last Admin: 02/03/17 09:47 Dose: 75 mg Collagenase (Santyl -) 1 applic TP DAILY [facility] Last Admin: 02/03/17 11:37 Dose: 1 applic Cyanocobalamin (Vitamin B12 -) 1,000 mcg PO DAILY [facility] [place] Last Admin: 02/03/17 09:47 Dose: 1,000 mcg Donepezil HCl (Aricept -) 10 mg PO DAILY [facility] [place] Last Admin: 02/03/17 09:47 Dose: 10 mg Heparin Sodium (Porcine) (Heparin -) 5,000 unit SQ TID [facility] Last Admin: 02/03/17 06:02 Dose: 5,000 unit Sodium Chloride (Normal Saline -) 1,000 mls @ 42 mls/hr IV ASDIR [facility] [place] Last Admin: 02/03/17 11:54 Dose: 42 mls/hr Ertapenem 1 gm/ Sodium (Chloride) 50 mls @ 50 mls/hr IVPB DAILY [facility] PRN Reason: Protocol Insulin Aspart (Novolog Vial Sliding Scale -) 1 vial SQ ACHS [facility] PRN Reason: Protocol Last Admin: 02/03/17 11:54 Dose: 2 units Metoprolol Tartrate (Lopressor Injection -) 5 mg IVPB Q4H PRN PRN Reason: HYPERTENSION Last Admin: 02/02/17 10:23 Dose: 5 mg Metoprolol Tartrate (Lopressor -) 50 mg PO BID [facility] [place] Last Admin: 02/03/17 09:47 Dose: 50 mg Metronidazole (Flagyl -) 500 mg PO TID [facility] [place] Multivitamins/Minerals/Vitamin C (Tab-A-Vit -) 1 tab PO DAILY [facility] [place] Last Admin: 02/03/17 09:47 Dose: 1 tab - Objective Vital Signs: Vital Signs Temperature 98.4 F 02/03/17 10:00 Pulse Rate 120 H 02/03/17 10:00 Respiratory Rate 18 02/03/17 10:00 Blood Pressure 122/77 02/03/17 10:00 O2 Sat by Pulse Oximetry (%) 100 02/03/17 09:00 Eyes: Yes: WNL, Conjunctiva Clear, EOM Intact HENT: Yes: WNL, Atraumatic, Normocephalic Neck: Yes: WNL, Supple, Trachea Midline Cardiovascular: Yes: Pulse Irregular Respiratory: Yes: WNL, Regular, CTA Bilaterally Gastrointestinal: Yes: WNL, Normal Bowel Sounds Genitourinary: Yes: WNL Musculoskeletal: Yes: WNL Extremities: Yes: WNL, Other (necrotic toes) Edema: No Integumentary: Yes: WNL Neurological: Yes: WNL, Alert, Oriented ...Motor Strength: WNL Psychiatric: Yes: WNL Labs: CBC, BMP 02/03/17 06:10 02/03/17 06:10 INR, PTT INR 1.44 (0.82-1.09) H 01/29/17 15:00 Assessment/Plan Problems (1) Hypotension now resolved. Assessment/Plan: Contributing factors include fever, sepsis, AF with RVR, dehydration. Leukocytosis; bacteruria. On antibiotics Code(s): I95.9 - HYPOTENSION, UNSPECIFIED Qualifiers: Hypotension type: other hypotension type Qualified Code(s): I95.89 - Other hypotension (2) Sepsis Assessment/Plan: On antibiotics; f/u c/s. Continue IV fluidsluids, but reevaluate rate frequently due to tendency to fluid overload (poor LVEF). Code(s): A41.9 - SEPSIS, UNSPECIFIED ORGANISM Qualifiers: Sepsis type: sepsis due to unspecified organism Qualified Code(s): A41.9 - Sepsis, unspecified organism (3) UTI (urinary tract infection) Code(s): N39.0 - URINARY TRACT INFECTION, SITE NOT SPECIFIED Qualifiers: Urinary tract infection type: site unspecified Hematuria presence: with hematuria Qualified Code(s): N39.0 - Urinary tract infection, site not specified (4) Acute on chronic systolic (congestive) heart failure Assessment/Plan: Appears euvolemic at this time. Code(s): I50.23 - ACUTE ON CHRONIC SYSTOLIC (CONGESTIVE) HEART FAILURE (5) CAD (coronary artery disease) Code(s): I25.10 - ATHSCL HEART DISEASE OF [place] CORONARY ARTERY W/O ANG PCTRS (6) Dementia Code(s): F03.90 - UNSPECIFIED DEMENTIA WITHOUT BEHAVIORAL DISTURBANCE Qualifiers: Dementia type: Alzheimer's disease Dementia behavioral disturbance: without behavioral disturbance (7) Infection of left foot Code(s): L08.9 - LOCAL INFECTION OF THE SKIN AND SUBCUTANEOUS TISSUE, UNSP (8) Leukocytosis Code(s): D72.829 - ELEVATED WHITE BLOOD CELL COUNT, UNSPECIFIED (9) NSTEMI (non-ST elevated myocardial infarction) Code(s): I21.4 - NON-ST ELEVATION (NSTEMI) MYOCARDIAL INFARCTION (10) Diabetes Code(s): E11.9 - TYPE 2 DIABETES MELLITUS WITHOUT COMPLICATIONS 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 If remains consistently > 120bpm can increase to 75mg BID On ASA and clopidogrel; Not considered candidate for warfarin or NOAC (f/u recent ICU admission). Anemia required PRBCs. Code(s): I48.91 - UNSPECIFIED ATRIAL FIBRILLATION (14) Aortic stenosis Assessment/Plan: On previous admission earlier this year, pt's daughters opted for conservative management regarding poor LVEF and significant valvular disease. Code(s): I35.0 - NONRHEUMATIC AORTIC (VALVE) STENOSIS (15) Hyperlipidemia Assessment/Plan: statin; keep LDL cholesterol < 70 mg/dL. Code(s): E78.5 - HYPERLIPIDEMIA, UNSPECIFIED
--- NOTE | 2017-02-03 23:57 | PN ---
Progress Note, Physician History of Present Illness: No new complaints - Current Medication List Current Medications: Active Medications Acetaminophen (Tylenol -) 650 mg PO Q6H PRN PRN Reason: FEVER OR PAIN Last Admin: 01/31/17 17:48 Dose: 650 mg Aspirin (Ecotrin -) 81 mg PO DAILY [facility] Last Admin: 02/03/17 09:47 Dose: 81 mg Bacitracin (Bacitracin -) 1 applic TP DAILY [facility] Last Admin: 02/03/17 10:10 Dose: 1 applic Clopidogrel Bisulfate (Plavix -) 75 mg PO DAILY [facility] Last Admin: 02/03/17 09:47 Dose: 75 mg Collagenase (Santyl -) 1 applic TP DAILY [facility] Last Admin: 02/03/17 11:37 Dose: 1 applic Cyanocobalamin (Vitamin B12 -) 1,000 mcg PO DAILY [facility] Last Admin: 02/03/17 09:47 Dose: 1,000 mcg Donepezil HCl (Aricept -) 10 mg PO DAILY [facility] Last Admin: 02/03/17 09:47 Dose: 10 mg Heparin Sodium (Porcine) (Heparin -) 5,000 unit SQ TID [facility] Last Admin: 02/03/17 22:20 Dose: 5,000 unit Sodium Chloride (Normal Saline -) 1,000 mls @ 42 mls/hr IV ASDIR [facility] Last Admin: 02/03/17 11:54 Dose: 42 mls/hr Ertapenem 1 gm/ Sodium (Chloride) 50 mls @ 50 mls/hr IVPB DAILY [facility] PRN Reason: Protocol Insulin Aspart (Novolog Vial Sliding Scale -) 1 vial SQ ACHS [facility] PRN Reason: Protocol Last Admin: 02/03/17 22:20 Dose: 2 units Metoprolol Tartrate (Lopressor Injection -) 5 mg IVPB Q4H PRN PRN Reason: HYPERTENSION Last Admin: 02/02/17 10:23 Dose: 5 mg Metoprolol Tartrate (Lopressor -) 50 mg PO BID [facility] Last Admin: 02/03/17 22:19 Dose: 50 mg Metronidazole (Flagyl -) 500 mg PO TID [facility] Last Admin: 02/03/17 22:19 Dose: 500 mg Multivitamins/Minerals/Vitamin C (Tab-A-Vit -) 1 tab PO DAILY [facility] Last Admin: 02/03/17 09:47 Dose: 1 tab - Objective Vital Signs: Vital Signs Temperature 98.4 F 02/03/17 18:27 Pulse Rate 135 H 02/03/17 18:27 Respiratory Rate 18 02/03/17 18:27 Blood Pressure 122/86 02/03/17 18:27 O2 Sat by Pulse Oximetry (%) 100 02/03/17 09:00 Constitutional: Yes: No Distress Eyes: Yes: WNL HENT: Yes: WNL Neck: Yes: WNL, Supple Cardiovascular: Yes: Tachycardia Respiratory: Yes: WNL, Regular, CTA Bilaterally Gastrointestinal: Yes: WNL, Normal Bowel Sounds, Soft Labs: CBC, BMP 02/03/17 06:10 02/03/17 06:10 INR, PTT INR 1.44 (0.82-1.09) H 01/29/17 15:00 Problem List - Problems (1) Sepsis Assessment/Plan: Bacteremia/gangrene/UTI Blood cultures showed ESBL Urine culture showed e. coli As per ID cont iv ertapenem PT eval for dc planning Code(s): A41.9 - SEPSIS, UNSPECIFIED ORGANISM Qualifiers: Sepsis type: sepsis due to unspecified organism Qualified Code(s): A41.9 - Sepsis, unspecified organism (2) C. difficile colitis Assessment/Plan: Pt now on flagyl Code(s): A04.7 - ENTEROCOLITIS DUE TO CLOSTRIDIUM DIFFICILE (3) Acute on chronic systolic (congestive) heart failure Assessment/Plan: Lasix on hold Code(s): I50.23 - ACUTE ON CHRONIC SYSTOLIC (CONGESTIVE) HEART FAILURE (4) NICHOLAS (acute kidney injury) Code(s): N17.9 - ACUTE KIDNEY FAILURE, UNSPECIFIED (5) Atrial fibrillation Assessment/Plan: Pt still slightly tachy Increase BB as BP allows Code(s): I48.91 - UNSPECIFIED ATRIAL FIBRILLATION (6) CAD (coronary artery disease) Code(s): I25.10 - ATHSCL HEART DISEASE OF [place] CORONARY ARTERY W/O ANG PCTRS (7) Dementia Code(s): F03.90 - UNSPECIFIED DEMENTIA WITHOUT BEHAVIORAL DISTURBANCE Qualifiers: Dementia type: Alzheimer's disease Dementia behavioral disturbance: without behavioral disturbance
[2017-02-04] MEDS ORDERED: PICC LINE 8 ML FLUSH PROTOCOL IVPUSH PRN (02:19)
[2017-02-04] MEDS: HEPARIN NA (PORCINE) 5,000 UNITS/ML 1ML VIAL SQ SCH ×2 (05:44→13:41)
[2017-02-04] MEDS: metroNIDAZOLE 250 MG TABLET PO SCH ×2 (05:44→13:40)
[2017-02-04] MEDS: INSULIN SLIDING SCALE (NOVOLOG) 1 VIAL SQ SCH ×4 (06:01→17:12)
[2017-02-04 07:39] LABS: BASOPHIL 0.2 % (0-2.0); EOSINOPHIL 1.1 % (0-4.5); MCH 27.5 pg (25.7-33.7); MCHC 32.4 g/dl (32.0-35.9); MEAN CELL VOLUME 84.9 fl (80-96); MEAN PLT VOLUME 8.9 fl (7.5-11.1); NEUTROPHILS 78.8 % (42.8-82.8); PLATELET COUNT 399 K/MM3 (134-434); RDW 16.6 % (11.9-15.9)
[2017-02-04 08:11] LABS: ALK PHOS 77 U/L (45-117); ANION GAP 10 (8-16); BILIRUBIN,TOTAL 0.4 mg/dL (0.2-1.0); CALCIUM 8.9 mg/dL (8.5-10.1); CO2 24 mmol/L (21-32); CREATININE 0.7 mg/dL (0.7-1.3); GLUCOSE,RANDOM 205 mg/dL (74-106); SGOT/AST 12 U/L (15-37); SGPT/ALT 17 U/L (12-78); TOT PROT 5.7 g/dl (6.4-8.2)
[2017-02-04] MEDS ORDERED: ERTAPENEM SODIUM 1 GM in SODIUM CHLORIDE 50 ML IVPB SCH (10:00)
[2017-02-04] MEDS: DONEPEZIL HCL 10 MG TABLET (FP) PO SCH (13:34)
[2017-02-04] MEDS: CYANOCOBALAMIN 1,000 MCG TABLET (FP) PO SCH (13:35)
[2017-02-04] MEDS: ASPIRIN COATED 81 MG TABLET.EC PO SCH (13:35)
[2017-02-04] MEDS: METOPROLOL TARTRATE 50 MG TABLET (FP) PO SCH (13:35)
[2017-02-04] MEDS: CLOPIDOGREL BISULFATE 75 MG TABLET (FP) PO SCH (13:35)
[2017-02-04] MEDS: MULTIVITAMINS (DAILY MVI) TABLET (FP) PO SCH (13:35)
[2017-02-04] MEDS: COLLAGENASE CLOSTRIDIUM HIST. 30 GRAMS TUBE TP SCH (13:36)
[2017-02-04] MEDS: BACITRACIN 15 GM TUBE TOPICAL OINTMENT TP SCH (13:36)
[2017-02-04] MEDS: SODIUM CHLORIDE 1,000 ML IV SCH (13:37)
--- NOTE | 2017-02-04 13:44 | PN ---
Progress Note (short form) - Note Progress Note: Patient seen and examined in the Telemetry unit. No significant change in overall condition. NAD. Intake & Output 02/01/17 02/02/17 02/03/17 02/04/17 23:59 23:59 23:59 23:59 Intake Total 772 294 662 504 Output Total 950 1100 1000 400 Balance -178 -806 -338 104 Last Vital Signs Temp Pulse Resp BP Pulse Ox 97.9 F 98 H 18 109/61 100 02/04/17 10:00 02/04/17 10:00 02/04/17 10:00 02/04/17 10:00 02/04/17 09:00 Active Medications Acetaminophen (Tylenol -) 650 mg PO Q6H PRN PRN Reason: FEVER OR PAIN Last Admin: 01/31/17 17:48 Dose: 650 mg Aspirin (Ecotrin -) 81 mg PO DAILY [facility] Last Admin: 02/03/17 09:47 Dose: 81 mg Bacitracin (Bacitracin -) 1 applic TP DAILY [facility] Last Admin: 02/03/17 10:10 Dose: 1 applic Clopidogrel Bisulfate (Plavix -) 75 mg PO DAILY [facility] Last Admin: 02/03/17 09:47 Dose: 75 mg Collagenase (Santyl -) 1 applic TP DAILY [facility] Last Admin: 02/03/17 11:37 Dose: 1 applic Cyanocobalamin (Vitamin B12 -) 1,000 mcg PO DAILY [facility] Last Admin: 02/03/17 09:47 Dose: 1,000 mcg Donepezil HCl (Aricept -) 10 mg PO DAILY [facility] Last Admin: 02/03/17 09:47 Dose: 10 mg Heparin Sodium (Porcine) (Heparin -) 5,000 unit SQ TID [facility] Last Admin: 02/04/17 05:44 Dose: 5,000 unit IV Flush (Picc Line Flush) 8 ml IVPUSH PRN PRN PRN Reason: Protocol Sodium Chloride (Normal Saline -) 1,000 mls @ 42 mls/hr IV ASDIR [facility] Last Admin: 02/03/17 11:54 Dose: 42 mls/hr Ertapenem 1 gm/ Sodium (Chloride) 50 mls @ 50 mls/hr IVPB DAILY [facility] PRN Reason: Protocol Insulin Aspart (Novolog Vial Sliding Scale -) 1 vial SQ ACHS [facility] PRN Reason: Protocol Last Admin: 02/04/17 06:19 Dose: 1 units Metoprolol Tartrate (Lopressor Injection -) 5 mg IVPB Q4H PRN PRN Reason: HYPERTENSION Last Admin: 02/02/17 10:23 Dose: 5 mg Metoprolol Tartrate (Lopressor -) 50 mg PO BID [facility] Last Admin: 02/03/17 22:19 Dose: 50 mg Metronidazole (Flagyl -) 500 mg PO TID [facility] Last Admin: 02/04/17 05:44 Dose: 500 mg Multivitamins/Minerals/Vitamin C (Tab-A-Vit -) 1 tab PO DAILY [facility] Last Admin: 02/03/17 09:47 Dose: 1 tab Constitutional: Yes: Confused, NAD Eyes: Yes: EOM Intact Cardiovascular: Yes: Murmur, S1, S2 Respiratory: Yes: Scattered rhonchi Gastrointestinal: Yes: Normal Bowel Sounds, Soft Extremities: Yes: Other Edema: LLE: 1+, RLE: 1+ Wound/Incision: Yes: Clean/Dry Neurological: Yes: Confusion Labs: Laboratory Results - last 24 hr 02/03/17 02/03/17 02/04/17 17:00 22:18 05:35 WBC 14.0 H RBC 3.61 L Hgb 9.9 L Hct 30.7 L MCV 84.9 MCH 27.5 MCHC 32.4 RDW 16.6 H Plt Count 399 MPV 8.9 Neutrophils % 78.8 Lymphocytes % 14.5 Monocytes % 5.4 Eosinophils % 1.1 D Basophils % 0.2 Sodium Potassium Chloride Carbon Dioxide Anion Gap BUN Creatinine Creat Clearance w eGFR POC Glucometer 144 222 Random Glucose Calcium Total Bilirubin AST ALT Alkaline Phosphatase Total Protein Albumin 02/04/17 02/04/17 02/04/17 05:35 05:43 12:31 WBC RBC Hgb Hct MCV MCH MCHC RDW Plt Count MPV Neutrophils % Lymphocytes % Monocytes % Eosinophils % Basophils % Sodium 147 H Potassium 4.2 Chloride 113 H Carbon Dioxide 24 Anion Gap 10 BUN 15 Creatinine 0.7 D Creat Clearance w eGFR > 60 POC Glucometer 188 189 Random Glucose 205 H D Calcium 8.9 Total Bilirubin 0.4 AST 12 L ALT 17 D Alkaline Phosphatase 77 Total Protein 5.7 L Albumin 2.0 L Problem List - Problems (1) Hypotension Code(s): I95.9 - HYPOTENSION, UNSPECIFIED Qualifiers: Hypotension type: other hypotension type Qualified Code(s): I95.89 - Other hypotension (2) Sepsis Code(s): A41.9 - SEPSIS, UNSPECIFIED ORGANISM Qualifiers: Sepsis type: sepsis due to unspecified organism Qualified Code(s): A41.9 - Sepsis, unspecified organism (3) UTI (urinary tract infection) Code(s): N39.0 - URINARY TRACT INFECTION, SITE NOT SPECIFIED Qualifiers: Urinary tract infection type: site unspecified Hematuria presence: with hematuria Qualified Code(s): N39.0 - Urinary tract infection, site not specified (4) CAD (coronary artery disease) Code(s): I25.10 - ATHSCL HEART DISEASE OF [place] CORONARY ARTERY W/O ANG PCTRS (5) Dementia Code(s): F03.90 - UNSPECIFIED DEMENTIA WITHOUT BEHAVIORAL DISTURBANCE Qualifiers: Dementia type: Alzheimer's disease Dementia behavioral disturbance: without behavioral disturbance (6) Open wound of left foot Code(s): S91.302A - UNSPECIFIED OPEN WOUND, LEFT FOOT, INITIAL ENCOUNTER Qualifiers: Encounter type: sequela Qualified Code(s): S91.302S - Unspecified open wound, left foot, sequela (7) NICHOLAS (acute kidney injury) Code(s): N17.9 - ACUTE KIDNEY FAILURE, UNSPECIFIED Assessment/Plan Sepsis due to UTI / Bacteremia Dementia CHF / Systolic dysfunction DM PAD Chronic foot ulcers/gangrene NICHOLAS (baseline SCr 0.7) Rate control per Cardiology ABX per ID O2 as needed Aspiration precautions ASA and Plavix Follow [facility] Local wound care VTE prophylaxis Telemetry monitoring Dr Qureshi
[2017-02-04 14:57] VITALS: BP 122/62; PULSE 97; TEMP 98.3
--- NOTE | 2017-02-04 15:23 | PN ---
Progress Note, Physician Chief Complaint: Pt is awake; restraints of arms; verbal, but nonsensical; asked repeatedly to not speak during physical (auscultation) exam, but continues to do so. 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 Per EMS, the patient was in the ICU 2 weeks ago for fluid surrounding the heart. After discharge, the patient was set to [facility] for 1 week. Patient has baseline dementia and Alzheimers, but ID staff have noted he is increasingly confused. Today, the patient was found to be hypotensive, tachycardic, and tachypneic. Family reports patient had a subjective fever. When EMS arrived on scene, patients bp was 60/30. At the time a 16 crispin was placed to the RFA and an 18 to the LAC, with 3000 mL normal saline during transport. Upon arrival, EMS reports patients bp was up to 70/ 40. Per family member, patient has diabetic foot ulcers in the heels bilaterally , which are managed by Dr. Kothari. No reported chills, cough, or sore throat. No chest pain, diaphoresis, or palpitations. Patient arrived with arndt in place draining hematuria, but no dysuria, frequency, or urgency. Patients history is limited due to PMHx. Allergies: NKDA Past Surgical History: None reported. Social History: Non smoker. No ETOH or drug use. Rumper: Dr. Ward PMD: Dr. Ian Sears - Current Medication List Current Medications: Active Medications Acetaminophen (Tylenol -) 650 mg PO Q6H PRN PRN Reason: FEVER OR PAIN Last Admin: 01/31/17 17:48 Dose: 650 mg Aspirin (Ecotrin -) 81 mg PO DAILY [facility] Last Admin: 02/04/17 13:35 Dose: 81 mg Bacitracin (Bacitracin -) 1 applic TP DAILY [facility] Last Admin: 02/04/17 13:36 Dose: 1 applic Clopidogrel Bisulfate (Plavix -) 75 mg PO DAILY [facility] Last Admin: 02/04/17 13:35 Dose: 75 mg Collagenase (Santyl -) 1 applic TP DAILY [facility] Last Admin: 02/04/17 13:36 Dose: 1 applic Cyanocobalamin (Vitamin B12 -) 1,000 mcg PO DAILY [facility] Last Admin: 02/04/17 13:35 Dose: 1,000 mcg Donepezil HCl (Aricept -) 10 mg PO DAILY [facility] Last Admin: 02/04/17 13:34 Dose: 10 mg Heparin Sodium (Porcine) (Heparin -) 5,000 unit SQ TID [facility] Last Admin: 02/04/17 13:41 Dose: 5,000 unit IV Flush (Picc Line Flush) 8 ml IVPUSH PRN PRN PRN Reason: Protocol Sodium Chloride (Normal Saline -) 1,000 mls @ 42 mls/hr IV ASDIR [facility] Last Admin: 02/04/17 13:37 Dose: 42 mls/hr Ertapenem 1 gm/ Sodium (Chloride) 50 mls @ 50 mls/hr IVPB DAILY [facility] PRN Reason: Protocol Last Admin: 02/04/17 13:35 Dose: 50 mls/hr Insulin Aspart (Novolog Vial Sliding Scale -) 1 vial SQ ACHS [facility] PRN Reason: Protocol Last Admin: 02/04/17 13:36 Dose: 1 units Metoprolol Tartrate (Lopressor Injection -) 5 mg IVPB Q4H PRN PRN Reason: HYPERTENSION Last Admin: 02/02/17 10:23 Dose: 5 mg Metoprolol Tartrate (Lopressor -) 50 mg PO BID [facility] Last Admin: 02/04/17 13:35 Dose: 50 mg Metronidazole (Flagyl -) 500 mg PO TID [facility] Last Admin: 02/04/17 13:40 Dose: 500 mg Multivitamins/Minerals/Vitamin C (Tab-A-Vit -) 1 tab PO DAILY [facility] Last Admin: 02/04/17 13:35 Dose: 1 tab - Objective Vital Signs: Vital Signs Temperature 98.3 F 02/04/17 14:55 Pulse Rate 97 H 02/04/17 14:55 Respiratory Rate 18 02/04/17 14:55 Blood Pressure 122/62 02/04/17 14:55 O2 Sat by Pulse Oximetry (%) 100 02/04/17 09:00 Constitutional: Yes: Anxious Eyes: Yes: WNL HENT: Yes: WNL Neck: Yes: WNL Cardiovascular: Yes: Pulse Irregular Respiratory: Yes: Regular Gastrointestinal: Yes: Soft Genitourinary: No: Anuria Musculoskeletal: Yes: Muscle Weakness Edema: No Peripheral Pulses WNL: No Peripheral Pulses: Left Doralis Pedis: 1+, Right Dorsalis Pedis: 1+ Integumentary: Yes: Other (necrosis of several toes bilaterally) Neurological: Yes: Confusion, Weakness Psychiatric: Yes: Other (marked dementia) Labs: CBC, BMP 02/04/17 05:35 02/04/17 05:35 INR, PTT INR 1.44 (0.82-1.09) H 01/29/17 15:00 Problem List - Problems (1) UTI (urinary tract infection) Code(s): N39.0 - URINARY TRACT INFECTION, SITE NOT SPECIFIED Qualifiers: Urinary tract infection type: site unspecified Hematuria presence: with hematuria Qualified Code(s): N39.0 - Urinary tract infection, site not specified (2) Acute on chronic systolic (congestive) heart failure Assessment/Plan: Beta blockers and ACEI; spironolactone; f/u BUN/Cr, electrolytes, Is and Os, daily weight. Code(s): I50.23 - ACUTE ON CHRONIC SYSTOLIC (CONGESTIVE) HEART FAILURE (3) CAD (coronary artery disease) Code(s): I25.10 - ATHSCL HEART DISEASE OF [place] CORONARY ARTERY W/O ANG PCTRS (4) Dementia Code(s): F03.90 - UNSPECIFIED DEMENTIA WITHOUT BEHAVIORAL DISTURBANCE Qualifiers: Dementia type: Alzheimer's disease Dementia behavioral disturbance: without behavioral disturbance (5) Infection of left foot Code(s): L08.9 - LOCAL INFECTION OF THE SKIN AND SUBCUTANEOUS TISSUE, UNSP (6) Leukocytosis Code(s): D72.829 - ELEVATED WHITE BLOOD CELL COUNT, UNSPECIFIED (7) NSTEMI (non-ST elevated myocardial infarction) Assessment/Plan: Daugthers have opted for conservative management (no angiogram). 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
== END 2017-02-04 19:21 | DRG 720 ==
LOC: JER 14:25 → JERBED 15:37 → JICU 16:42 → J4S 02-01 01:22
PROVIDERS: ADMIT Internal Medicine; ATTEND Internal Medicine
PROC: 30233N1 Transfusion of Nonautologous Red Blood Cells into Peripheral Vein, Percutaneous Approach (ICD-10-PCS; principal; 2017-01-29)
PROC: 02HV33Z Insertion of Infusion Device into Superior Vena Cava, Percutaneous Approach (ICD-10-PCS; 2017-02-04)
PROC: B548ZZA Ultrasonography of Superior Vena Cava, Guidance (ICD-10-PCS; 2017-02-04)
DX: A41.9 Sepsis, unspecified organism (principal); I11.0 Hypertensive heart disease with heart failure; I50.23 Acute on chronic systolic (congestive) heart failure; N39.0 Urinary tract infection, site not specified; B96.1 Klebsiella pneumoniae [K. pneumoniae] as the cause of diseases classified elsewhere; I73.9 Peripheral vascular disease, unspecified; I48.0 Paroxysmal atrial fibrillation; Z79.01 Long term (current) use of anticoagulants; I95.89 Other hypotension; D64.9 Anemia, unspecified; G30.9 Alzheimer's disease, unspecified; F02.80 Dementia in other diseases classified elsewhere, unspecified severity, without behavioral disturbance, psychotic disturbance, mood disturbance, and anxiety; F31.9 Bipolar disorder, unspecified; E11.52 Type 2 diabetes mellitus with diabetic peripheral angiopathy with gangrene; E11.621 Type 2 diabetes mellitus with foot ulcer; Z79.4 Long term (current) use of insulin; I25.10 Atherosclerotic heart disease of native coronary artery without angina pectoris; N17.9 Acute kidney failure, unspecified; I25.2 Old myocardial infarction; I35.0 Nonrheumatic aortic (valve) stenosis; E78.5 Hyperlipidemia, unspecified; L97.429 Non-pressure chronic ulcer of left heel and midfoot with unspecified severity; L97.419 Non-pressure chronic ulcer of right heel and midfoot with unspecified severity; Z16.24 Resistance to multiple antibiotics; E11.3549 Type 2 diabetes mellitus with proliferative diabetic retinopathy with combined traction retinal detachment and rhegmatogenous retinal detachment, unspecified eye; I21.4 Non-ST elevation (NSTEMI) myocardial infarction
CPT/HCPCS: 36415; 36430; 36569; 71010-TC; 76775-TC; 77001-TC; 80048; 80053; 81003; 81015; 82436; 82550; 82553; 82570; 82803; 83605; 84133; 84300; 84484; 84540; 85025; 85027; 85610; 85651; 85730; 86140; 86850; 86900; 86901; 86922; 87040; 87086; 87186; 87324; 87449; 93005; 93010; 99285-25; C1751; J1644; P9038; P9058

== ENCOUNTER 2017-02-24 10:23 | Inpatient (IN) | payer OTHER ==
--- NOTE | 2017-02-24 10:50 | PDOC ---
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 Patient presents for admission at request of Dr. Kothari, vascular, for workup and angiogram. Upon arrival to the ED, the pt. was found to have a heart rate in the 150's. Pt. cannot state if he has any chest pain. Patient has baseline dementia. There are no family members at bedside at this time. Unable to obtain history of present illness. Past History - Travel Traveled outside of the country in the last 30 days: No Close contact w/someone who was outside of country & ill: No - Past Medical History Allergies/Adverse Reactions: Allergies Allergy/AdvReac Type Severity Reaction Status Date / Time No Known Allergies Allergy Verified 02/24/17 10:36 Home Medications: Ambulatory Orders Aspirin [ASA -] 81 mg PO DAILY 10/04/16 Cyanocobalamin (Vitamin B-12) [Vitamin B-12] 1,000 mcg PO DAILY 10/04/16 Donepezil HCl [Aricept -] 10 mg PO DAILY 10/04/16 Metformin HCl [Metformin HCl ER] 1,000 mg PO BID 11/26/16 Collagenase Clostridium Hist. [Santyl] 1 applic TP DAILY #90 oint...g. 12/16/16 Spironolactone [Aldactone -] 25 mg PO DAILY #0 tablet 01/17/17 Bacitracin - [Bacitracin Topical Ointment -] 1 applic TP DAILY 01/29/17 Insulin Sliding Scale [Novolog Vial Sliding Scale -] 1 vial SQ ACHS PRN Multivitamins [Multivit ([facility] Form[facility])] 1 tab PO DAILY 01/29/17 Tamsulosin HCl [Flomax] 0.4 mg PO 1630 01/29/17 Vit A/Vitamin D3/E/Aloe V/Znox [Periguard Ointment] 0 gm TP TID 01/29/17 Clopidogrel Bisulfate [Plavix -] 75 mg PO DAILY tablet 02/04/17 Metoprolol Tartrate [Lopressor -] 50 mg PO BID #60 tablet 02/04/17 Acetaminophen [Pain Relief] 650 mg PO BID 02/24/17 Clonazepam [KlonoPIN] 0.5 mg PO Q12H 02/24/17 Mirtazapine [Remeron -] 15 mg PO HS 02/24/17 Silver Sulfadiazine 1% Top Cr [Silvadene -] 1 applic TP BID 02/24/17 Anemia: Yes Asthma: No Cancer: No Cardiac Disorders: Yes (NSTEMI) CVA: Yes (DYSPHAGIA) COPD: No CHF: No Dementia: Yes (ALZHEIMERS.) Diabetes: Yes GI Disorders: No Disorders: No HTN: Yes Hypercholesterolemia: No Liver Disease: No Psychiatric Problems: Yes (ANXIETY, BIPOLAR) Seizures: No Thyroid Disease: No - Surgical History Abdominal Surgery: No Appendectomy: No Cardiac Surgery: No Cholecystectomy: No Lung Surgery: No Neurologic Surgery: No Orthopedic Surgery: No - Psycho/Social/Smoking Cessation Hx Anxiety: No Suicidal Ideation: No Smoking History: Never smoked Have you smoked in the past 12 months: No Hx Alcohol Use: No Drug/Substance Use Hx: No Substance Use Type: None Hx Substance Use Treatment: No Review of Systems - Review of Systems Able to Perform ROS?: No (dementia) *Physical Exam - Vital Signs Last Vital Signs Temp Pulse Resp BP Pulse Ox 58 L 22 110/73 100 02/24/17 10:31 02/24/17 10:31 02/24/17 10:31 02/24/17 10:31 - Physical Exam Comments: 02/24/17 18:59 GENERAL: Well developed, well nourished. Awake and alert. No acute distress. HEENT: Normocephalic, atraumatic. PERRLA, EOMI. No conjunctival pallor. Sclera are non- icteric. Moist mucous membranes. Oropharynx is clear. NECK: Supple. Full ROM. No JVD. Carotid pulses 2+ and symmetric, without bruits. No thyromegaly. No lymphadenopathy. CARDIOVASCULAR: Irregularly irregular rhythm with tachycardia. III/ systolic murmur over R 3rd intercostal space. No rubs, or gallops. Distal pulses are unable to be felt , and not heard on doppler PULMONARY: No evidence of respiratory distress. Lungs clear to auscultation bilaterally. No wheezing, rales or rhonchi. ABDOMINAL: Soft. Non-tender. Non-distended. No rebound or guarding. No organomegaly. Normoactive bowel sounds. MUSCULOSKELETAL Normal range of motion at all joints. No bony deformities or tenderness. No CVA tenderness. EXTREMITIES: No cyanosis. No clubbing. No edema. No calf tenderness. SKIN: Warm and dry. Normal capillary refill. No rashes. No jaundice. NEUROLOGICAL: Alert, awake, appropriate. Cranial nerves 2-12 intact. No deficits to light touch and temperature in face, upper extremities and lower extremities. No motor deficits in the in face, upper extremities and lower extremities. Normoreflexic in the upper and lower extremities. Normal speech. Toes are down- going bilaterally. Gait is normal without ataxia. PSYCHIATRIC: Cooperative. Good eye contact. Appropriate mood and affect. ED Treatment Course - LABORATORY CBC & Chemistry Diagram: 03/07/17 06:30 03/07/17 06:30 Medical Decision Making - Critical Care Time Total Critical Care Time (minutes): 35 Critical Care Statement: The care of this patient involved high complexity decision making to prevent further life threatening deterioration of the patient 's condition and/or to evaluate & treat vital organ system(s) failure or risk of failure. 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 Patient presents for admission at request of Dr. Kothari, vascular, for workup and angiogram. Patient's toes appear gangrenous at this time also with a old chronic left heel wound.. Patient is found to be quite tachycardic in the emergency department. EKG obtained prior to exam shows A. fib with a rate of [address]-T wave changes. We will control heart rate at this time. We'll also draw basic labs to look for possible sepsis. 1. CBC, CMP, lactic acid, cardiac profile, PT/INR, blood cultures 2. IV fluids, chest x-ray, EKG, 3. Toprol IV 4.reevaluate 02/24/17 11:57 WBC is elevated to 17.0, leukocytosis d/t L Foot ulcer/gangreous toes vs. other source of infection? 02/24/17 14:24 UA shows infection, urosepsis. Heart rate is down to 110 after second dose of diltiazem. First call to Dr. Lemos for admission. 02/24/17 14:59 Dr. Lemos at agrees to admission at this time. We will admit to telemetry for continued monitoring. We will consult Dr. Gibson, cardiology, telemetry at this time. We will also consult Dr. Felder infectious disease, for guidance on antibiotic selection. 02/24/17 15:[address] Beavers, states that patient should switch back to his Toprol as needed for rate control as he has severe LV dysfunction. Hold diltiazem. 02/24/17 15:[address] Felder who looked at past urine cultures. Recommends starting 1 g of meropenem in the ER. Will follow the patient on the floor. *DC/Admit/Observation/Transfer Diagnosis at time of Disposition: Tachycardia UTI (urinary tract infection) Qualifiers: Urinary tract infection type: catheter-associated UTI Indwelling urinary catheter type: indwelling urethral catheter Encounter type: subsequent encounter Qualified Code(s): T83.511D - Infection and inflammatory reaction due to indwelling urethral catheter, subsequent encounter Open wound of left foot Qualifiers: Encounter type: subsequent encounter Qualified Code(s): S91.302D - Unspecified open wound, left foot, subsequent encounter Sepsis Qualifiers: Sepsis type: sepsis due to unspecified organism Qualified Code(s): A41.9 - Sepsis, unspecified organism Atrial fibrillation Qualifiers: Atrial fibrillation type: unspecified Qualified Code(s): I48.91 - Unspecified atrial fibrillation - Discharge Dispostion Admit: Yes
[2017-02-24] MEDS ORDERED: METOPROLOL TARTRATE 5 MG/5 ML VIAL IVPUSH ONE ×2 (10:56→16:29)
--- NOTE | 2017-02-24 10:57 | PDOC ---
Attending Attestation - Resident Resident Name: Nai Blanc - ED Attending Attestation I have performed the following: I have examined & evaluated the patient, The case was reviewed & discussed with the resident, I agree w/resident's findings & plan, Exceptions are as noted - HPI HPI: 02/24/17 10:57 77y M hx of anemia, CAD, dm, htn, dementia, bipolar d/o, hx of chronic heel ulcers, gangrenous digits in LE, sent by vascular from [place] for angiogram, however on arrival the pt was noted to be in rapid afib to the 150s. pts history limited due to this dementia. GENERAL: The patient is awake, in no distress, confused HEAD: Normocephalic, atraumatic. EYES: extraocular movements intact, sclera anicteric, conjunctiva clear. ENT: dry mucous membranes. NECK: Normal range of motion, supple LUNGS: Breath sounds equal, clear to auscultation bilaterally. HEART: irreguarlly irregular, rapid ABDOMEN: Soft, nontender, normoactive bowel sounds. No guarding, no rebound. No CVA tenderness EXTREMITIES: +L heel ulcer without significant erythema, no discharge, no ttp, several gangrenous toes noted NEUROLOGICAL: limited exam PSYCH: limited exam SKIN: Warm, Dry, normal turgor, see extremitiy exam pt given metoprolol for his afib w/o significant improvemtn mild hydration has improved his HR somewhat will continue hydration until 1L is given and reassess currently approx 130s bp borderline will notify dr. phillips likely admission 02/24/17 13:12 no significant improvement of HR with fluids will give pt 10mg of dilitazem for HR control of afib 02/24/17 14:21 HR controlled with 20mg of dilt will d/w cardiology regarding continuing po dilt vs. metoprolol pts UA c/w UTI will d/w ID due to resistant oganisms will admit for further management CRITICAL CARE DOCUMENTATION: I spent ~35 minutes of Critical Care time, excluding separately billable procedures, involving high complexity decision making to assess, manipulate and support vital system function(s) to treat single or multiple vital organ system failure and/or to prevent further life threatening deterioration of the patient' s condition. - Physicial Exam PE: 02/25/17 11:25 see above - Medical Decision Making 02/25/17 11:25 see above Heart Score/ECG Review - ECG Impressions Comment:: 02/24/17 11:38 Twelve-lead EKG was performed and reviewed by me. Irregularly irregular, rate of 157 T wave inversions in the lateral leads When compared to prior EKG dated 01/29/2017 the patient's rate has increased by 29
[2017-02-24] MEDS ORDERED: METOPROLOL TARTRATE 5 MG/5 ML VIAL ONE ×2 (11:10→18:44)
[2017-02-24] MEDS ORDERED: SODIUM CHLORIDE 500 ML IV STA ×2 (11:23→12:42)
[2017-02-24 11:41] LABS: BASOPHIL 0.6 % (0-2.0); EOSINOPHIL 0.2 % (0-4.5); MCH 26.2 pg (25.7-33.7); MCHC 31.4 g/dl (32.0-35.9); MEAN CELL VOLUME 83.5 fl (80-96); MEAN PLT VOLUME 8.6 fl (7.5-11.1); NEUTROPHILS 88.2 % (42.8-82.8); PLATELET COUNT 542 K/MM3 (134-434); RDW 19.6 % (11.9-15.9); WHITE BLOOD COUNT 17.8 K/mm3 (4.0-10.0)
[2017-02-24 11:53] LABS: ALBUMIN 2.1 g/dl (3.4-5.0); ANION GAP 8 (8-16); BILIRUBIN,TOTAL 0.6 mg/dL (0.2-1.0); CALCIUM 8.8 mg/dL (8.5-10.1); CO2 27 mmol/L (21-32); CREATININE 1.2 mg/dL (0.7-1.3); GLUCOSE,RANDOM 206 mg/dL (74-106); SGPT/ALT 11 U/L (12-78)
[2017-02-24 12:05] LABS: INR 1.33 (0.82-1.09); PROTHROMBIN TIME (PATIENT) 14.7 SEC (9.98-11.88)
[2017-02-24 12:08] LABS: ALK PHOS 67 U/L (45-117); MAGNESIUM 1.9 mg/dL (1.8-2.4); SGOT/AST 28 U/L (15-37)
[2017-02-24 12:09] LABS: CPK 86 IU/L (39-308)
[2017-02-24 12:38] LABS: TROPONIN I 0.22 ng/ml (0.00-0.05)
[2017-02-24] MEDS ORDERED: LIDOCAINE HCL 2% JELLY (5 ML/TUBE) ONE (12:42)
[2017-02-24] MEDS ORDERED: dilTIAZem HCL 50 MG/10 ML - 10 ML VIAL IVPUSH ONE ×2 (13:12→14:03)
[2017-02-24] MEDS ORDERED: dilTIAZem HCL 125 MG/25 ML - 25 ML VIAL ONE (13:17)
[2017-02-24 13:20] LABS: URINE APPEARANCE CLEAR; URINE BILIRUBIN 1+ (NEGATIVE); URINE BLOOD 3+ (NEGATIVE); URINE COLOR DK. YELLOW; URINE GLUCOSE (UA) NEGATIVE (NEGATIVE); URINE KETONE TRACE (NEGATIVE); URINE LEUK ESTERASE 3+ (NEGATIVE); URINE NITRITE NEGATIVE (NEGATIVE); URINE PROTEIN 2+ (NEGATIVE); URINE UROBILINOGEN 0.2 mg/dL (0.2-1.0)
[2017-02-24 13:36] LABS: URINE RBC 42 /hpf (0-3); URINE WBC 2194 /hpf (3-5); YEAST MANY
[2017-02-24] MEDS ORDERED: MEROPENEM 1 GM in DEXTROSE 5%-WATER - 100 ML IVPB SCH (16:00)
[2017-02-24 16:28] VITALS: BMI 23.6
[2017-02-24] MEDS ORDERED: METOPROLOL TARTRATE 25 MG TABLET (FP) ONE (18:44)
[2017-02-24] MEDS: METOPROLOL TARTRATE 5 MG/5 ML VIAL IVPUSH PRN (18:52)
[2017-02-24] MEDS ORDERED: METOPROLOL TARTRATE 25 MG TABLET (FP) PO ONE (19:00)
[2017-02-24 19:10] LABS: THYROID STIMULATING HORMONE 1.47 uIU/ml (0.358-3.74)
[2017-02-24] MEDS ORDERED: METOPROLOL TARTRATE 25 MG TABLET (FP) PO SCH (22:00)
[2017-02-24] MEDS: SODIUM CHLORIDE 0.45% 1,000 ML IV SCH (22:44)
[2017-02-24] MEDS: MIRTAZAPINE 15 MG TABLET (FP) PO SCH (22:46)
[2017-02-24] MEDS: clonazePAM 0.5 MG TABLET PO SCH (22:47)
[2017-02-24] MEDS: INSULIN SLIDING SCALE (NOVOLOG) 1 VIAL SQ SCH (22:54)
[2017-02-25] MEDS: METOPROLOL TARTRATE 50 MG TABLET (FP) PO SCH ×3 (00:54→22:14)
--- NOTE | 2017-02-25 02:18 | HP ---
Admitting History and Physical - Admission History of Present Illness: Pt is a 76-year-old male with PMH significant for of Alzheimer's, HLD, NIDDM, CHF, sepsis, esbl uti, anemia and HTN. Pt unable to give history due to dementia. Pt presented to ER bc of gangrene of right foot and was sent by request of Dr. Kothari, vascular, for workup and angiogram. Upon arrival to the ED , the pt. was found to have a heart rate in the 150's. 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 Cardiovascular: Yes: AFIB, CHF, HTN, Hyperlipdemia Heme/Onc: Yes: Anemia Psych: Yes: Bipolar (Pt's daughter say he has dementia and ?manic depression) Endocrine: Yes: Diabetes Mellitus - Past Surgical History Past Surgical History: Yes: None - Smoking History Smoking history: Never smoked Have you smoked in the past 12 months: No - Alcohol/Substance Use Hx Alcohol Use: No - Social History ADL: Family Assistance History of Recent Travel: No Home Medications - Allergies Allergies/Adverse Reactions: Allergies Allergy/AdvReac Type Severity Reaction Status Date / Time No Known Allergies Allergy Verified 02/24/17 10:36 - Home Medications Home Medications: Ambulatory Orders Aspirin [ASA -] 81 mg PO DAILY 10/04/16 Cyanocobalamin (Vitamin B-12) [Vitamin B-12] 1,000 mcg PO DAILY 10/04/16 Donepezil HCl [Aricept -] 10 mg PO DAILY 10/04/16 Metformin HCl [Metformin HCl ER] 1,000 mg PO BID 11/26/16 Collagenase Clostridium Hist. [Santyl] 1 applic TP DAILY #90 oint...g. 12/16/16 Spironolactone [Aldactone -] 25 mg PO DAILY #0 tablet 01/17/17 Bacitracin - [Bacitracin Topical Ointment -] 1 applic TP DAILY 01/29/17 Insulin Sliding Scale [Novolog Vial Sliding Scale -] 1 vial SQ ACHS PRN Multivitamins [Multivit ([facility] Formulary)] 1 tab PO DAILY 01/29/17 Tamsulosin HCl [Flomax] 0.4 mg PO 1630 01/29/17 Vit A/Vitamin D3/E/Aloe V/Znox [Periguard Ointment] 0 gm TP TID 01/29/17 Clopidogrel Bisulfate [Plavix -] 75 mg PO DAILY tablet 02/04/17 Metoprolol Tartrate [Lopressor -] 50 mg PO BID #60 tablet 02/04/17 Acetaminophen [Pain Relief] 650 mg PO BID 02/24/17 Clonazepam [KlonoPIN] 0.5 mg PO Q12H 02/24/17 Mirtazapine [Remeron -] 15 mg PO HS 02/24/17 Silver Sulfadiazine 1% Top Cr [Silvadene -] 1 applic TP BID 02/24/17 Family Disease History - Family Disease History Family History: Unable to Obtain Review of Systems Unable to obtain ROS, reason: Dementia Physical Examination Vital Signs: Vital Signs Temperature 98.3 F 02/24/17 22:33 Pulse Rate 124 H 02/24/17 22:33 Respiratory Rate 18 02/24/17 22:33 Blood Pressure 127/72 02/24/17 22:33 O2 Sat by Pulse Oximetry (%) 100 02/24/17 15:05 Constitutional: Yes: No Distress HENT: Yes: WNL Neck: Yes: WNL, Supple Cardiovascular: Yes: Pulse Irregular Respiratory: Yes: WNL, Regular, CTA Bilaterally Gastrointestinal: Yes: WNL, Normal Bowel Sounds, Soft Extremities: Yes: Other ((+) dry gangrene rt/lt toes and heel rt foot) Edema: LLE: Trace, RLE: Trace ...Motor Strength: WNL Problem List - Problems (1) Atrial fibrillation Assessment/Plan: Monitor on tele Cardio consult Serial cpk/troponin Code(s): I48.91 - UNSPECIFIED ATRIAL FIBRILLATION Qualifiers: Atrial fibrillation type: unspecified Qualified Code(s): I48.91 - Unspecified atrial fibrillation (2) Sepsis Assessment/Plan: Cont IV meropenem Follow cultures ID consult Code(s): A41.9 - SEPSIS, UNSPECIFIED ORGANISM Qualifiers: Sepsis type: sepsis due to unspecified organism Qualified Code(s): A41.9 - Sepsis, unspecified organism (3) Systolic CHF Code(s): I50.20 - UNSPECIFIED SYSTOLIC (CONGESTIVE) HEART FAILURE (4) ACS (acute coronary syndrome) Code(s): I24.9 - ACUTE ISCHEMIC HEART DISEASE, UNSPECIFIED (5) CAD (coronary artery disease) Code(s): I25.10 - ATHSCL HEART DISEASE OF [place] CORONARY ARTERY W/O ANG PCTRS (6) Dementia Code(s): F03.90 - UNSPECIFIED DEMENTIA WITHOUT BEHAVIORAL DISTURBANCE Qualifiers: Dementia type: Alzheimer's disease Dementia behavioral disturbance: without behavioral disturbance (7) Hyperlipidemia Code(s): E78.5 - HYPERLIPIDEMIA, UNSPECIFIED (8) Diabetes Code(s): E11.9 - TYPE 2 DIABETES MELLITUS WITHOUT COMPLICATIONS 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
[2017-02-25] MEDS ORDERED: MEROPENEM 1 GM in DEXTROSE 5%-WATER - 100 ML IVPB ONE (02:30)
[2017-02-25 04:55] LABS: TROPONIN I 0.25 ng/ml (0.00-0.05)
[2017-02-25] MEDS: INSULIN SLIDING SCALE (NOVOLOG) 1 VIAL SQ SCH ×4 (06:24→22:15)
[2017-02-25] MEDS ORDERED: INSULIN (NOVOLOG) ASPART 100 UNITS/ML 10ML VIAL ONE ×2 (07:17→21:39)
[2017-02-25 09:00] LABS: BASOPHIL 0.1 % (0-2.0); EOSINOPHIL 0.3 % (0-4.5); MCHC 30.7 g/dl (32.0-35.9); MEAN CELL VOLUME 84.7 fl (80-96); NEUTROPHILS 85.2 % (42.8-82.8); PLATELET COUNT 510 K/MM3 (134-434); RDW 19.3 % (11.9-15.9); WHITE BLOOD COUNT 17.8 K/mm3 (4.0-10.0)
--- NOTE | 2017-02-25 09:05 | CONSULT ---
Consultation: REQUESTING PROVIDER: CONSULT REQUEST: We have been asked to medically evaluate this patient for ( specify). HISTORY OF PRESENT ILLNESS: Unable to obtain history due to baseline dementia. 77 yo male with Alzheimers was admitted yesterday for gangrene of right and left foot. Upon arrival, his heart rate was in the 150's. PMH: LIMNOLOGIST: Yes: Alzheimer's, Dementia Cardiovascular: Yes: AFIB, CHF, HTN, Hyperlipdemia Heme/Onc: Yes: Anemia Psych: Yes: Bipolar Endocrine: Yes: Diabetes Mellitus REVIEW OF SYSTEMS: Unable to obtain due to baseline dementia - Past Surgical History Past Surgical History: Yes: None - Smoking History Smoking history: Never smoked Have you smoked in the past 12 months: No - Alcohol/Substance Use Hx Alcohol Use: No - Social History ADL: Family Assistance History of Recent Travel: No PHYSICAL EXAMINATION Vital Signs - 24 hr 02/24/17 02/24/17 02/24/17 15:05 16:33 18:52 Temperature Pulse Rate 117 H 136 H Pulse Rate [ 108 H Apical] Respiratory 18 Rate Blood Pressure 119/75 127/76 O2 Sat by Pulse 100 Oximetry (%) 02/24/17 02/24/17 02/25/17 21:00 22:33 02:27 Temperature 98.3 F 98.1 F Pulse Rate 124 H 126 H Pulse Rate [ Apical] Respiratory 16 18 16 Rate Blood Pressure 127/72 117/73 O2 Sat by Pulse 100 Oximetry (%) 02/25/17 08:53 Temperature Pulse Rate Pulse Rate [ Apical] Respiratory 16 Rate Blood Pressure O2 Sat by Pulse 100 Oximetry (%) GENERAL: A/O x 0. NAD HEAD: Normal with no signs of trauma. EYES: sclera anicteric, conjunctiva clear. NECK: supple LUNGS: Breath sounds equal, clear to auscultation bilaterally. No wheezes, and no crackles. No accessory muscle use. HEART: irregularly irregular, S1 S2 ABDOMEN: Palpable bladder. Soft, nontender, not distended, normoactive bowel sounds, no guarding, no rebound, no masses. No hepatomegaly or splenomegaly. LOWER EXTREMITIES: Gangrenous digits on right and left foot. Right gangrenous heel. PSYCHIATRIC: Combative Laboratory Results - last 24 hr 02/24/17 02/24/17 02/25/17 15:22 22:52 04:00 POC Glucometer 239 Lactic Acid 1.6 Creatine Kinase 39 Troponin I 0.25 H 02/25/17 05:58 POC Glucometer 251 Lactic Acid Creatine Kinase Troponin I Laboratory Tests 02/24/17 02/25/17 02/25/17 11:30 04:00 08:15 WBC 17.8 H Neutrophils % 85.2 H Sodium 146 H BUN 21 H D Random Glucose 206 H Troponin I 0.25 H Active Medications Generic Name Dose Route Start Last Admin Trade Name Freq PRN Reason Stop Dose Admin Aspirin 81 mg 02/25/17 10:00 Asa - PO DAILY [facility] Clonazepam 0.5 mg 02/24/17 21:45 02/24/17 22:47 Klonopin - PO 0.5 mg Q12H LUCY Administration Clopidogrel Bisulfate 75 mg 02/25/17 10:00 Plavix - PO DAILY [facility] Donepezil HCl 10 mg 02/25/17 10:00 Aricept - PO DAILY [facility] Heparin Sodium (Porcine) 5,000 unit 02/25/17 10:00 Heparin - SQ BID [facility] Sodium Chloride 1,000 mls @ 75 mls/hr 02/24/17 21:45 02/24/17 22:44 1/2 Normal Saline IV 75 mls/hr ASDIR LUCY Administration Meropenem 1 gm/ Dextrose 100 mls @ 100 mls/hr 02/25/17 02:30 IVPB Q8H-IV LUCY Protocol Insulin Aspart 1 vial 02/24/17 22:00 02/25/17 06:24 Novolog Vial Sliding Scale - SQ 6 units ACHS LUCY Administration Protocol Metoprolol Tartrate 5 mg 02/24/17 18:48 02/24/17 18:52 Lopressor Injection - IVPUSH 5 mg Q4H PRN Administration FOR HEART RATE OVER 120 Metoprolol Tartrate 50 mg 02/24/17 22:00 02/25/17 00:54 Lopressor - PO 25 mg BID LUCY Administration Mirtazapine 15 mg 02/24/17 22:00 02/24/17 22:46 Remeron - PO 15 mg HS LUCY Administration Multivitamins/Minerals/Vitamin C 1 tab 02/25/17 10:00 Tab-A-Vit - PO DAILY [facility] Spironolactone 25 mg 02/25/17 10:00 Aldactone - PO DAILY [facility] Tamsulosin HCl 0.4 mg 02/25/17 16:30 Flomax - PO 1630 [facility] Microbiology 02/24/17 13:05 Urine - Urine - Catheterized Urine Culture - Final Yeast Like Organism ASSESSMENT/PLAN: 1) Possible Sepsis -Suspected Urinary source -Wait for cultures -Palpable bladder on exam - Bladder scan and arndt reposition ordered -Ordered anti-fungal (Cancidas). Cannot use diflucan because of plavix interaction. 2) Dry Gangrene of toes and heel. Don't think is the source of infection. 3) History of recent ESBL infection (bactermia due to UTI) - Constinue Meropenem 4) A-fib, + troponins -Management per Cardiology Dispo: We will continue to follow the patient. Thank you for this consultative opportunity. Visit type - Emergency Visit Emergency Visit: No - New Patient This patient is new to me today: Yes Date on this admission: 02/25/17 - Critical Care Critical Care patient: No
[2017-02-25] MEDS: ASPIRIN 81 MG CHEWABLE TABLETS PO SCH (10:16)
[2017-02-25] MEDS: clonazePAM 0.5 MG TABLET PO SCH ×2 (10:16→22:14)
[2017-02-25] MEDS: DONEPEZIL HCL 10 MG TABLET (FP) PO SCH (10:16)
[2017-02-25] MEDS: MULTIVITAMINS (DAILY MVI) TABLET (FP) PO SCH (10:16)
[2017-02-25] MEDS: HEPARIN NA (PORCINE) 5,000 UNITS/ML 1ML VIAL SQ SCH ×2 (10:17→22:14)
[2017-02-25] MEDS: CLOPIDOGREL BISULFATE 75 MG TABLET (FP) PO SCH (10:17)
[2017-02-25] MEDS: SPIRONOLACTONE 25 MG TABLET (FP) PO SCH (10:17)
--- NOTE | 2017-02-25 11:03 | PN ---
Teaching Attending Note Name of Resident: Hema Chong ATTENDING PHYSICIAN STATEMENT I saw and evaluated the patient. I reviewed the resident's note and discussed the case with the resident. I agree with the resident's findings and plan as documented. SUBJECTIVE: OBJECTIVE: ASSESSMENT AND PLAN: possible sepsis suspect urinary source palpable bladder on exam need bladder scan and reposition arndt add antifungal for now-cancidas- cannot use diflucan due to plavix interaction dry gngrene of toes and heel- doubt this is source of infection history of recent esbl infection (bacteremia due to UTI) continue meropenem rapid afib positive troponins mangement per cardiology
[2017-02-25] MEDS ORDERED: CASPOFUNGIN ACETATE 70 MG in SODIUM CHLORIDE 250 ML IVPB ONE (12:00)
[2017-02-25] MEDS: MEROPENEM 1 GM in DEXTROSE 5%-WATER - 100 ML IVPB SCH ×2 (12:55→17:07)
[2017-02-25] MEDS: TAMSULOSIN HCL 0.4 MG CAP.ER.24H (FP) PO SCH (16:42)
[2017-02-25] MEDS: SODIUM CHLORIDE 0.45% 1,000 ML IV SCH ×2 (17:07→22:16)
[2017-02-25 21:36] LABS: TROPONIN I 0.21 ng/ml (0.00-0.05)
--- NOTE | 2017-02-25 22:00 | PN ---
Progress Note (short form) - Note Progress Note: Urology: 77 y/o male w/ severe pvd. Hx of diabetes, htn, prostatism. Pt in urinary retention, bladder distended, arndt not in proper place. [address] 30[address] arndt placed. Approximately 200 cc purulent urine drained. Suggest arndt w / bladder irrigation and renal/pelvic sono.
[2017-02-25] MEDS: MIRTAZAPINE 15 MG TABLET (FP) PO SCH (22:14)
[2017-02-26] MEDS: MEROPENEM 1 GM in DEXTROSE 5%-WATER - 100 ML IVPB SCH ×2 (01:19→09:56)
[2017-02-26] MEDS: INSULIN SLIDING SCALE (NOVOLOG) 1 VIAL SQ SCH ×4 (06:12→23:28)
--- NOTE | 2017-02-26 06:23 | CON.CARD ---
Consult Consult Specialty:: cardiology Reason for Consultation:: CHF - History of Present Illness History of Present Illness: The patient is a 76-year-old male (b. [facility] [place]), with past medical history of Alzheimer's, severe systolic LV dysfunction, s/p NSTEMI, PAD, HLD, NIDDM, and HTN, who presents to the emergency department today with dry gangrene of his right foot. Patient presents for admission at request of Dr. Kothari, vascular, for workup and angiogram. Upon arrival to the ED, the pt. was found to have a heart rate in the 150's. Pt. cannot state if he has any chest pain. Patient has baseline dementia. T - History Source History Provided By: Medical Record Limitations to Obtaining History: Dementia - Past Medical History AUTOCAD: Yes: Alzheimer's, Dementia Cardio/Vascular: Yes: AFIB, CHF, HTN, Hyperlipdemia Psych: Yes: Bipolar (Pt's daughter say he has dementia and ?manic depression), Other Endocrine: Yes: Diabetes Mellitus Additional Medical History: diabetic and PAD associated foot ulcers bilaterally - Past Surgical History Past Surgical History: Yes: None - Alcohol/Substance Use Hx Alcohol Use: No - Smoking History Smoking history: Never smoked Have you smoked in the past 12 months: No - Social History Usual Living Arrangement: With Child ADL: Family Assistance History of Recent Travel: No Home Medications - Allergies Allergies/Adverse Reactions: Allergies Allergy/AdvReac Type Severity Reaction Status Date / Time No Known Allergies Allergy Verified 02/24/17 10:36 - Home Medications Home Medications: Ambulatory Orders Aspirin [ASA -] 81 mg PO DAILY 10/04/16 Cyanocobalamin (Vitamin B-12) [Vitamin B-12] 1,000 mcg PO DAILY 10/04/16 Donepezil HCl [Aricept -] 10 mg PO DAILY 10/04/16 Metformin HCl [Metformin HCl ER] 1,000 mg PO BID 11/26/16 Collagenase Clostridium Hist. [Santyl] 1 applic TP DAILY #90 oint...g. 12/16/16 Spironolactone [Aldactone -] 25 mg PO DAILY #0 tablet 01/17/17 Bacitracin - [Bacitracin Topical Ointment -] 1 applic TP DAILY 01/29/17 Insulin Sliding Scale [Novolog Vial Sliding Scale -] 1 vial SQ ACHS PRN Multivitamins [Multivit ([facility] Formulary)] 1 tab PO DAILY 01/29/17 Tamsulosin HCl [Flomax] 0.4 mg PO 1630 01/29/17 Vit A/Vitamin D3/E/Aloe V/Znox [Periguard Ointment] 0 gm TP TID 01/29/17 Clopidogrel Bisulfate [Plavix -] 75 mg PO DAILY tablet 02/04/17 Metoprolol Tartrate [Lopressor -] 50 mg PO BID #60 tablet 02/04/17 Acetaminophen [Pain Relief] 650 mg PO BID 02/24/17 Clonazepam [KlonoPIN] 0.5 mg PO Q12H 02/24/17 Mirtazapine [Remeron -] 15 mg PO HS 02/24/17 Silver Sulfadiazine 1% Top Cr [Silvadene -] 1 applic TP BID 02/24/17 Review of Systems - Review of Systems Constitutional: reports: Weakness Eyes: reports: No Symptoms HENT: reports: No Symptoms Neck: reports: No Symptoms Cardiovascular: reports: Shortness of Breath Respiratory: reports: SOB Gastrointestinal: reports: No Symptoms Genitourinary: reports: No Symptoms Musculoskeletal: reports: Muscle Weakness Neurological: reports: Weakness Psychiatric: reports: Depression, Other - Risk Factors Known Risk Factors: Yes: Age, Diabetes Mellitus, Gender, Hypercholesterolemia, Hypertension, Physical Inactivity, Prior WI /Emb Stroke, Other (severe systolic CHF;) Vital Signs: Vital Signs Temperature 97.9 F 02/26/17 06:18 Pulse Rate 112 H 02/26/17 06:18 Respiratory Rate 20 02/26/17 06:18 Blood Pressure 116/54 02/26/17 06:18 O2 Sat by Pulse Oximetry (%) 100 02/26/17 00:00 Constitutional: Yes: Thin Eyes: Yes: WNL HENT: Yes: WNL Neck: Yes: WNL Respiratory: Yes: SOB Gastrointestinal: Yes: Soft Renal/: No: Anuria Cardiovascular: Yes: Pulse Irregular JVD: No Carotid Bruit: Yes PMI: Displaced Heart Sounds: Yes: S1 (varies in intensity), S2 Murmur: Yes: Systolic Murmur, Grade 2 Musculoskeletal: Yes: Muscle Weakness Extremities: Yes: Cool Edema: No Peripheral Pulses WNL: No Peripheral Pulses: 1+ Left Doralis Pedis, 1+ Right Dorsalis Pedis Integumentary: Yes: Other (gangrenous LEs) Psychiatric: Yes: Other - Other Data Labs, Other Data: CBC, BMP 02/25/17 08:15 INR, PTT INR 1.33 (0.82-1.09) H 02/24/17 11:30 Troponin, BNP 02/25/17 20:30 Troponin I 0.21 H Troponin, BNP 02/25/17 20:30 Troponin I 0.21 H Echo: Image Reviewed Ejection Fraction %: LVEF < 40 % Imaging - Results Chest X-ray: Image Reviewed (no acute pathology) EKG: Image Reviewed (AF with RVR) Problem List - Problems (1) Atrial fibrillation Assessment/Plan: On metoprolol for HR control. ?too high risk (from falls) for anticoagulation. Code(s): I48.91 - UNSPECIFIED ATRIAL FIBRILLATION Qualifiers: Atrial fibrillation type: unspecified Qualified Code(s): I48.91 - Unspecified atrial fibrillation (2) Open wound of left foot Assessment/Plan: f/u with vascular specialist. Code(s): S91.302A - UNSPECIFIED OPEN WOUND, LEFT FOOT, INITIAL ENCOUNTER Qualifiers: Encounter type: subsequent encounter Qualified Code(s): S91.302D - Unspecified open wound, left foot, subsequent encounter (3) Sepsis Code(s): A41.9 - SEPSIS, UNSPECIFIED ORGANISM Qualifiers: Sepsis type: sepsis due to unspecified organism Qualified Code(s): A41.9 - Sepsis, unspecified organism (4) Tachycardia Code(s): R00.0 - TACHYCARDIA, UNSPECIFIED (5) ACS (acute coronary syndrome) Assessment/Plan: s/p NSTEMI 12/28. Pt's family opted at that time for conservative management (no coronary angiogram). Continue medications for systolic CHF Code(s): I24.9 - ACUTE ISCHEMIC HEART DISEASE, UNSPECIFIED (6) CAD (coronary artery disease) Code(s): I25.10 - ATHSCL HEART DISEASE OF [place] CORONARY ARTERY W/O ANG PCTRS (7) Dementia Assessment/Plan: Profound dementia. Pt's daughters have, in the past, discussed options for care of their father, including hospice. 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 Add ACEI if BUN/Cr and electrolytes allow. F/u BUN/Cr, electrolytes, Is and OS, daily weights. Serial TNI. Code(s): I50.20 - UNSPECIFIED SYSTOLIC (CONGESTIVE) HEART FAILURE
[2017-02-26] MEDS: METOPROLOL TARTRATE 5 MG/5 ML VIAL IVPUSH PRN (07:07)
[2017-02-26 08:22] LABS: ALBUMIN 2.2 g/dl (3.4-5.0); ALK PHOS 76 U/L (45-117); ANION GAP 13 (8-16); BILIRUBIN,TOTAL 0.5 mg/dL (0.2-1.0); CALCIUM 8.7 mg/dL (8.5-10.1); CO2 20 mmol/L (21-32); CREATININE 1.2 mg/dL (0.7-1.3); GLUCOSE,RANDOM 159 mg/dL (74-106); SGOT/AST 15 U/L (15-37); SGPT/ALT 11 U/L (12-78); TOT PROT 7.2 g/dl (6.4-8.2)
[2017-02-26 09:23] LABS: CPK 37 IU/L (39-308); TROPONIN I 0.16 ng/ml (0.00-0.05)
[2017-02-26] MEDS: HEPARIN NA (PORCINE) 5,000 UNITS/ML 1ML VIAL SQ SCH ×2 (09:55→23:29)
[2017-02-26] MEDS: CLOPIDOGREL BISULFATE 75 MG TABLET (FP) PO SCH (09:56)
[2017-02-26] MEDS: ASPIRIN 81 MG CHEWABLE TABLETS PO SCH (09:56)
[2017-02-26] MEDS: clonazePAM 0.5 MG TABLET PO SCH ×2 (09:56→23:29)
[2017-02-26] MEDS: SPIRONOLACTONE 25 MG TABLET (FP) PO SCH (09:56)
[2017-02-26] MEDS: DONEPEZIL HCL 10 MG TABLET (FP) PO SCH (09:56)
[2017-02-26] MEDS: METOPROLOL TARTRATE 50 MG TABLET (FP) PO SCH ×2 (09:56→23:29)
[2017-02-26] MEDS: MULTIVITAMINS (DAILY MVI) TABLET (FP) PO SCH (09:56)
[2017-02-26] MEDS: CASPOFUNGIN ACETATE 50 MG in SODIUM CHLORIDE 250 ML IVPB SCH (09:58)
--- NOTE | 2017-02-26 12:29 | PN ---
Teaching Attending Note Name of Resident: Hema Chong ATTENDING PHYSICIAN STATEMENT I saw and evaluated the patient. I reviewed the resident's note and discussed the case with the resident. I agree with the resident's findings and plan as documented. SUBJECTIVE: seen with ID resident no urine output abdominal distention d/w nurse CBI started last night by urology OBJECTIVE: Vital Signs Period Temp Pulse Resp BP Sys/Mcdaniel Pulse Ox Last 24 Hr 97.4 F-98.4 F 112-141 16-20 107-122/54-92 100-100 cor-rrr llungs clear abd soft,+abdominal distention below umbilicus d/w distended bladder ext dry gangrene unchanged CBC, BMP 02/25/17 08:15 02/26/17 05:35 Microbiology 02/24/17 12:00 Blood - Peripheral Venous Blood Culture - Preliminary NO GROWTH OBTAINED AFTER 24 HOURS, INCUBATION TO CONTINUE FOR 4 DAYS. 02/24/17 12:00 Blood - Peripheral Venous Blood Culture - Preliminary NO GROWTH OBTAINED AFTER 24 HOURS, INCUBATION TO CONTINUE FOR 4 DAYS. 02/24/17 13:05 Urine - Urine - Catheterized Urine Culture - Final Yeast Like Organism ASSESSMENT AND PLAN: awaiting urology f/u to adjust arndt (nursing has tried unsuccessfully multiple times) continue cancidas for furguria continue meropenem for prior history of ecolli esbl uti suspect persistent leukocytosis is due to undrained bladder/UTI dry gangrene of the feet afib acs dementia
--- NOTE | 2017-02-26 12:39 | PN ---
Progress Note (short form) - Note Progress Note: Vascular Surgery Pt seen and examined. Right foot gangrene -- seen in the office last week. Now with UTI. On antibiotics. Will need angiogram once sepsis is resloved. Will be on stand by Devan Kothari DO
--- NOTE | 2017-02-26 14:12 | CONS ---
DATE OF CONSULTATION: 02/24/2017 HISTORY OF PRESENT ILLNESS: He is a 77-year-old male who was admitted via the emergency room as he was noted to be in rapid atrial fibrillation with a rate greater than 150. Patient has history of coronary artery disease, diabetes, hypertension, dementia, bipolar disorder. He has got a history of chronic heel ulcers and gangrenous digits on his left lower extremity. He was sent by Vascular Surgery from the skilled nursing. However, on arrival he was noted to be in rapid atrial fibrillation and was therefore admitted. Presently, the patient is confused. Multiple attempts at passage of a Cordova have been unsuccessful. Patient does have history of urinary incontinence. A 16-[place] Cordova was placed, but there was minimal urine output which was purulent. His bladder was distended. Therefore, a tray was ordered as well as a 24-Palestinian 3-way 30-mL Cordova for continuous bladder irrigation. The patient is on metoprolol for his atrial fibrillation. He is being hydrated and ID is involved for his possible urosepsis. PLAN: To obtain a renal and pelvic ultrasound and to place a 3-way Cordova catheter with bladder irrigation. Because of the recurrent urosepsis and a micturition disorder, patient should undergo a cystoscopy when he is medically stable. Will follow with you. Satinder [id number]
--- NOTE | 2017-02-26 16:49 | EKG ---
Test Reason : Blood Pressure : / mmHG Vent. Rate : 157 BPM Atrial Rate : 163 BPM P-R Int : 000 ms QRS Dur : 096 ms QT Int : 318 ms P-R-T Axes : 000 051 207 degrees QTc Int : 514 ms ATRIAL FIBRILLATION WITH RAPID VENTRICULAR RESPONSE LOW VOLTAGE QRS SEPTAL INFARCT , AGE UNDETERMINED ABNORMAL ECG WHEN COMPARED WITH ECG OF 29-JAN-2017 14:47, NO SIGNIFICANT CHANGE WAS FOUND Confirmed by ERNIE POSEY MD ([id number]) on 02/26/2017 4:48:41 PM Referred By: Confirmed By:ERNIE POSEY MD
[2017-02-26] MEDS ORDERED: INSULIN (NOVOLOG) ASPART 100 UNITS/ML 10ML VIAL ONE ×2 (17:12→17:40)
[2017-02-26] MEDS: MEROPENEM 500 MG in DEXTROSE 5%-WATER - 100 ML IVPB SCH (17:18)
[2017-02-26] MEDS: TAMSULOSIN HCL 0.4 MG CAP.ER.24H (FP) PO SCH (17:19)
[2017-02-26] MEDS ORDERED: PT OWN MED DRAWER 7, Y5N ONE (17:40)
--- NOTE | 2017-02-26 17:41 | PN ---
Physical Exam: SUBJECTIVE: Patient seen and examined. Unable to obtain history due to dementia. No overnight events. OBJECTIVE: Vital Signs Period Temp Pulse Resp BP Sys/Mcdaniel Pulse Ox Last 24 Hr 97.9 F-98.5 F 112-141 16-20 110-122/54-92 100-100 GENERAL: The patient is awake, alert, in no acute distress. HEAD: Normal with no signs of trauma. EYES: PERRL, extraocular movements intact, sclera anicteric, conjunctiva clear. No ptosis. ENT: Ears normal, nares patent, oropharynx clear without exudates, moist mucous membranes. NECK: supple. LUNGS: Breath sounds equal, clear to auscultation bilaterally, no wheezes, no crackles, no accessory muscle use. HEART: Regular rate and rhythm, S1, S2 without murmur, rub or gallop. ABDOMEN: Firm, nontender, Distended, normoactive bowel sounds, no guarding, no rebound, no hepatosplenomegaly, no masses. EXTREMITIES: B/L dry gangrenous feet and left heel SKIN: Warm, dry, normal turgor, no rashes or lesions noted Laboratory Results - last 24 hr 02/25/17 02/25/17 02/26/17 20:30 22:05 05:35 Sodium 146 H Potassium 4.8 Chloride 113 H Carbon Dioxide 20 L D Anion Gap 13 BUN 20 H Creatinine 1.2 Creat Clearance w eGFR 58.71 POC Glucometer 167 Random Glucose 159 H D Calcium 8.7 Total Bilirubin 0.5 AST 15 D ALT 11 L Alkaline Phosphatase 76 Creatine Kinase 21 L 37 L Troponin I 0.21 H 0.16 H Total Protein 7.2 Albumin 2.2 L 02/26/17 02/26/17 02/26/17 05:35 05:44 16:13 Sodium Potassium Chloride Carbon Dioxide Anion Gap BUN Creatinine Creat Clearance w eGFR POC Glucometer 143 274 Random Glucose Calcium Total Bilirubin AST ALT Alkaline Phosphatase Creatine Kinase Cancelled Troponin I Cancelled Total Protein Albumin Active Medications Generic Name Dose Route Start Last Admin Trade Name Freq PRN Reason Stop Dose Admin Aspirin 81 mg 02/25/17 10:00 02/26/17 09:56 Asa - PO 81 mg DAILY LUCY Administration Clonazepam 0.5 mg 02/24/17 21:45 02/26/17 09:56 Klonopin - PO 0.5 mg Q12H LCUY Administration Clopidogrel Bisulfate 75 mg 02/25/17 10:00 02/26/17 09:56 Plavix - PO 75 mg DAILY LUCY Administration Donepezil HCl 10 mg 02/25/17 10:00 02/26/17 09:56 Aricept - PO 10 mg DAILY LUCY Administration Heparin Sodium (Porcine) 5,000 unit 02/25/17 10:00 02/26/17 09:55 Heparin - SQ 5,000 unit BID LUCY Administration Sodium Chloride 1,000 mls @ 75 mls/hr 02/24/17 21:45 02/25/17 22:16 1/2 Normal Saline IV 75 mls/hr ASDIR LUCY Administration Caspofungin 50 mg/ Sodium 250 mls @ 250 mls/hr 02/26/17 10:00 02/26/17 09:58 Chloride IVPB 250 mls/hr DAILY LUCY Administration Meropenem 500 mg/ Dextrose 100 mls @ 200 mls/hr 02/26/17 18:00 02/26/17 17:18 IVPB 200 mls/hr Q8H-IV LUCY Administration Insulin Aspart 1 vial 02/24/17 22:00 02/26/17 17:19 Novolog Vial Sliding Scale - SQ 4 units ACHS LUCY Administration Protocol Metoprolol Tartrate 5 mg 02/24/17 18:48 02/26/17 07:07 Lopressor Injection - IVPUSH 5 mg Q4H PRN Administration FOR HEART RATE OVER 120 Metoprolol Tartrate 50 mg 02/24/17 22:00 02/26/17 09:56 Lopressor - PO 50 mg BID LUCY Administration Mirtazapine 15 mg 02/24/17 22:00 02/25/17 22:14 Remeron - PO 15 mg HS LUCY Administration Multivitamins/Minerals/Vitamin C 1 tab 02/25/17 10:00 02/26/17 09:56 Tab-A-Vit - PO 1 tab DAILY LUCY Administration Spironolactone 25 mg 02/25/17 10:00 02/26/17 09:56 Aldactone - PO 25 mg DAILY LUCY Administration Tamsulosin HCl 0.4 mg 02/25/17 16:30 02/26/17 17:19 Flomax - PO 0.4 mg 1630 LUCY Administration ASSESSMENT/PLAN: 1) UTI -possibly secondary Funguria -F/u repeat urine culture - continue Cancidas -continue meropenem because prior history of E. Coli, ESBL, UTI 2) Persistent Leukocytosis -Possibly due to undrained bladder/UTI 3) Dry gangrene of the feet -doubtful cause of infection Visit type - Emergency Visit Emergency Visit: Yes ED Registration Date: 02/24/17 Care time: The patient presented to the Emergency Department on the above date and was hospitalized for further evaluation of their emergent condition. - New Patient This patient is new to me today: No - Critical Care Critical Care patient: No
[2017-02-26] MEDS ORDERED: MEROPENEM 500 MG VIAL (RESTRICTED TO ID) IVPB SCH (18:00)
--- NOTE | 2017-02-26 23:19 | PN ---
Progress Note, Physician History of Present Illness: No new change - Current Medication List Current Medications: Active Medications Aspirin (Asa -) 81 mg PO DAILY [facility] Last Admin: 02/26/17 09:56 Dose: 81 mg Clonazepam (Klonopin -) 0.5 mg PO Q12H [facility] Last Admin: 02/26/17 09:56 Dose: 0.5 mg Clopidogrel Bisulfate (Plavix -) 75 mg PO DAILY [facility] Last Admin: 02/26/17 09:56 Dose: 75 mg Donepezil HCl (Aricept -) 10 mg PO DAILY [facility] Last Admin: 02/26/17 09:56 Dose: 10 mg Heparin Sodium (Porcine) (Heparin -) 5,000 unit SQ BID [facility] Last Admin: 02/26/17 09:55 Dose: 5,000 unit Sodium Chloride (1/2 Normal Saline) 1,000 mls @ 75 mls/hr IV ASDIR [facility] Last Admin: 02/25/17 22:16 Dose: 75 mls/hr Caspofungin 50 mg/ Sodium (Chloride) 250 mls @ 250 mls/hr IVPB DAILY [facility] Last Admin: 02/26/17 09:58 Dose: 250 mls/hr Meropenem 500 mg/ Dextrose 100 mls @ 200 mls/hr IVPB Q8H-IV [facility] Last Admin: 02/26/17 17:18 Dose: 200 mls/hr Insulin Aspart (Novolog Vial Sliding Scale -) 1 vial SQ ACHS LUCY PRN Reason: Protocol Last Admin: 02/26/17 17:19 Dose: 4 units Metoprolol Tartrate (Lopressor Injection -) 5 mg IVPUSH Q4H PRN PRN Reason: FOR HEART RATE OVER 120 Last Admin: 02/26/17 07:07 Dose: 5 mg Metoprolol Tartrate (Lopressor -) 50 mg PO BID [facility] Last Admin: 02/26/17 09:56 Dose: 50 mg Mirtazapine (Remeron -) 15 mg PO HS [facility] Last Admin: 02/25/17 22:14 Dose: 15 mg Multivitamins/Minerals/Vitamin C (Tab-A-Vit -) 1 tab PO DAILY [facility] Last Admin: 02/26/17 09:56 Dose: 1 tab Spironolactone (Aldactone -) 25 mg PO DAILY [facility] Last Admin: 02/26/17 09:56 Dose: 25 mg Tamsulosin HCl (Flomax -) 0.4 mg PO 1630 [facility]UCY Last Admin: 02/26/17 17:19 Dose: 0.4 mg - Objective Vital Signs: Vital Signs Temperature 98.2 F 02/26/17 20:19 Pulse Rate 79 02/26/17 20:19 Respiratory Rate 20 02/26/17 20:20 Blood Pressure 125/70 02/26/17 20:19 O2 Sat by Pulse Oximetry (%) 95 02/26/17 20:20 Constitutional: Yes: No Distress Neck: Yes: WNL, Supple Cardiovascular: Yes: WNL, Regular Rate and Rhythm Respiratory: Yes: WNL, Regular, CTA Bilaterally Gastrointestinal: Yes: WNL, Normal Bowel Sounds, Soft Labs: CBC, BMP 02/25/17 08:15 02/26/17 05:35 INR, PTT INR 1.33 (0.82-1.09) H 02/24/17 11:30 Problem List - Problems (1) Sepsis Assessment/Plan: (+) urine culture for fungal ?gangrene feet Cont IV cancidas Pt also on IV merepenem(pt has h/o esbl) Cont IVF Code(s): A41.9 - SEPSIS, UNSPECIFIED ORGANISM Qualifiers: Sepsis type: sepsis due to unspecified organism Qualified Code(s): A41.9 - Sepsis, unspecified organism (2) Urinary retention Assessment/Plan: Cont IVF COnt flomax As per uro CBI started abd arndt repositioned Code(s): R33.9 - RETENTION OF URINE, UNSPECIFIED (3) Atrial fibrillation Assessment/Plan: Cont metoprolol Code(s): I48.91 - UNSPECIFIED ATRIAL FIBRILLATION Qualifiers: Atrial fibrillation type: unspecified Qualified Code(s): I48.91 - Unspecified atrial fibrillation (4) Systolic CHF Assessment/Plan: Cont spirinolactone monitor electrolytes As per cardio Code(s): I50.20 - UNSPECIFIED SYSTOLIC (CONGESTIVE) HEART FAILURE (5) ACS (acute coronary syndrome) Assessment/Plan: Cont asa Trend cpk/troponin Code(s): I24.9 - ACUTE ISCHEMIC HEART DISEASE, UNSPECIFIED (6) Dementia Assessment/Plan: Cont aricept Code(s): F03.90 - UNSPECIFIED DEMENTIA WITHOUT BEHAVIORAL DISTURBANCE Qualifiers: Dementia type: Alzheimer's disease Dementia behavioral disturbance: without behavioral disturbance (7) Diabetes Assessment/Plan: Cont sliding scale w/ novolog Code(s): E11.9 - TYPE 2 DIABETES MELLITUS WITHOUT COMPLICATIONS 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
[2017-02-26] MEDS: SODIUM CHLORIDE 0.45% 1,000 ML IV SCH (23:30)
[2017-02-26] MEDS: MIRTAZAPINE 15 MG TABLET (FP) PO SCH (23:30)
[2017-02-27] MEDS ORDERED: PT OWN MED DRAWER 7, Y5N ONE (00:55)
[2017-02-27] MEDS: MEROPENEM 500 MG in DEXTROSE 5%-WATER - 100 ML IVPB SCH ×3 (00:58→11:16)
[2017-02-27] MEDS: INSULIN SLIDING SCALE (NOVOLOG) 1 VIAL SQ SCH ×4 (07:03→22:05)
[2017-02-27] MEDS: CASPOFUNGIN ACETATE 50 MG in SODIUM CHLORIDE 250 ML IVPB SCH (10:13)
--- NOTE | 2017-02-27 11:07 | PN ---
Physical Exam: SUBJECTIVE: Patient seen and examined. Unable to obtain history due to patients dementia. No new overnight events. OBJECTIVE: Vital Signs Period Temp Pulse Resp BP Sys/Mcdaniel Pulse Ox Last 24 Hr 97.9 F-98.5 F 79-133 20-20 99-125/51-74 95 GENERAL: NAD HEAD: Normal with no signs of trauma. EYES: PERRL, extraocular movements intact, sclera anicteric, conjunctiva clear. No ptosis. ENT: Ears normal, nares patent, oropharynx clear without exudates, moist mucous membranes. NECK: supple. LUNGS: Breath sounds equal, clear to auscultation bilaterally, no wheezes, no crackles, no accessory muscle use. HEART: Regular rate and rhythm, S1, S2 without murmur, rub or gallop. ABDOMEN: Soft, nontender, nondistended, normoactive bowel sounds, no guarding, no rebound, no hepatosplenomegaly, no masses. EXTREMITIES: B/L dry gangrenous digits on LE. Laboratory Results - last 24 hr 02/26/17 02/26/17 02/27/17 16:13 23:26 06:55 POC Glucometer 274 172 178 Active Medications Generic Name Dose Route Start Last Admin Trade Name Freq PRN Reason Stop Dose Admin Aspirin 81 mg 02/25/17 10:00 02/26/17 09:56 Asa - PO 81 mg DAILY LUCY Administration Clonazepam 0.5 mg 02/24/17 21:45 02/26/17 23:29 Klonopin - PO 0.5 mg Q12H LUCY Administration Clopidogrel Bisulfate 75 mg 02/25/17 10:00 02/26/17 09:56 Plavix - PO 75 mg DAILY LUCY Administration Donepezil HCl 10 mg 02/25/17 10:00 02/26/17 09:56 Aricept - PO 10 mg DAILY LUCY Administration Heparin Sodium (Porcine) 5,000 unit 02/25/17 10:00 02/26/17 23:29 Heparin - SQ 5,000 unit BID LUCY Administration Sodium Chloride 1,000 mls @ 75 mls/hr 02/24/17 21:45 02/26/17 23:30 1/2 Normal Saline IV Not Given ASDIR LUCY Caspofungin 50 mg/ Sodium 250 mls @ 250 mls/hr 02/26/17 10:00 02/27/17 10:13 Chloride IVPB 250 mls/hr DAILY [facility]YC Administration Meropenem 500 mg/ Dextrose 100 mls @ 200 mls/hr 02/26/17 18:00 02/27/17 01:02 IVPB 200 mls/hr Q8H-IV LUCY Administration Insulin Aspart 1 vial 02/24/17 22:00 02/27/17 07:03 Novolog Vial Sliding Scale - SQ 2 units ACHS LUCY Administration Protocol Metoprolol Tartrate 5 mg 02/24/17 18:48 02/26/17 07:07 Lopressor Injection - IVPUSH 5 mg Q4H PRN Administration FOR HEART RATE OVER 120 Metoprolol Tartrate 50 mg 02/24/17 22:00 02/26/17 23:29 Lopressor - PO 50 mg BID LUCY Administration Mirtazapine 15 mg 02/24/17 22:00 02/26/17 23:30 Remeron - PO 15 mg HS LUCY Administration Multivitamins/Minerals/Vitamin C 1 tab 02/25/17 10:00 02/26/17 09:56 Tab-A-Vit - PO 1 tab DAILY LUCY Administration Spironolactone 25 mg 02/25/17 10:00 02/26/17 09:56 Aldactone - PO 25 mg DAILY LUCY Administration Tamsulosin HCl 0.4 mg 02/25/17 16:30 02/26/17 17:19 Flomax - PO 0.4 mg 1630 LUCY Administration ASSESSMENT/PLAN: 1) Sepsis secondary to UTI - Funguria - continue Cancidas -pending CBC and BMP 2) Urinary retention -Cont IVF and Flomax -CBI started and arndt repositioned -As per Uro 3) Dry gangrene of the feet -doubtful cause of infection Visit type - Emergency Visit Emergency Visit: Yes ED Registration Date: 02/24/17 Care time: The patient presented to the Emergency Department on the above date and was hospitalized for further evaluation of their emergent condition. - New Patient This patient is new to me today: No - Critical Care Critical Care patient: No
[2017-02-27] MEDS: SPIRONOLACTONE 25 MG TABLET (FP) PO SCH ×2 (12:10→12:22)
[2017-02-27] MEDS: CLOPIDOGREL BISULFATE 75 MG TABLET (FP) PO SCH ×2 (12:10→12:23)
[2017-02-27] MEDS: METOPROLOL TARTRATE 50 MG TABLET (FP) PO SCH ×3 (12:10→21:54)
[2017-02-27] MEDS: ASPIRIN 81 MG CHEWABLE TABLETS PO SCH ×2 (12:10→12:23)
[2017-02-27] MEDS: clonazePAM 0.5 MG TABLET PO SCH ×3 (12:10→21:54)
[2017-02-27] MEDS: HEPARIN NA (PORCINE) 5,000 UNITS/ML 1ML VIAL SQ SCH ×2 (12:10→21:54)
[2017-02-27] MEDS: DONEPEZIL HCL 10 MG TABLET (FP) PO SCH ×2 (12:10→12:23)
[2017-02-27] MEDS: MULTIVITAMINS (DAILY MVI) TABLET (FP) PO SCH ×2 (12:11→12:23)
--- NOTE | 2017-02-27 16:36 | PN ---
Teaching Attending Note Name of Resident: Hema Chong ATTENDING PHYSICIAN STATEMENT I saw and evaluated the patient. I reviewed the resident's note and discussed the case with the resident. I agree with the resident's findings and plan as documented. SUBJECTIVE: arndt adjusted yesterday now abdomen is soft OBJECTIVE: Vital Signs Period Temp Pulse Resp BP Sys/Mcdaniel Pulse Ox Last 24 Hr 97.5 F-98.4 F 79-125 20-20 99-125/51-78 95 cor-rrr lungs clear abd soft,nt ext no edema arndt thick blood tinged urine CBC, BMP 02/25/17 08:15 02/26/17 05:35 Current Medications Aspirin (Asa -) 81 mg PO DAILY [facility] Last Admin: 02/27/17 12:23 Dose: Not Given Clonazepam (Klonopin -) 0.5 mg PO Q12H [facility] Last Admin: 02/27/17 12:22 Dose: Not Given Clopidogrel Bisulfate (Plavix -) 75 mg PO DAILY [facility] Last Admin: 02/27/17 12:23 Dose: Not Given Donepezil HCl (Aricept -) 10 mg PO DAILY [facility] Last Admin: 02/27/17 12:23 Dose: Not Given Heparin Sodium (Porcine) (Heparin -) 5,000 unit SQ BID [facility] Last Admin: 02/27/17 12:10 Dose: 5,000 unit Sodium Chloride (1/2 Normal Saline) 1,000 mls @ 75 mls/hr IV ASDIR [facility] Last Admin: 02/26/17 23:30 Dose: Not Given Caspofungin 50 mg/ Sodium (Chloride) 250 mls @ 250 mls/hr IVPB DAILY [facility] Last Admin: 02/27/17 10:13 Dose: 250 mls/hr Insulin Aspart (Novolog Vial Sliding Scale -) 1 vial SQ ACHS LUCY PRN Reason: Protocol Last Admin: 02/27/17 12:19 Dose: Not Given Metoprolol Tartrate (Lopressor Injection -) 5 mg IVPUSH Q4H PRN PRN Reason: FOR HEART RATE OVER 120 Last Admin: 02/26/17 07:07 Dose: 5 mg Metoprolol Tartrate (Lopressor -) 50 mg PO BID [facility] Last Admin: 02/27/17 12:23 Dose: Not Given Mirtazapine (Remeron -) 15 mg PO HS [facility] Last Admin: 02/26/17 23:30 Dose: 15 mg Multivitamins/Minerals/Vitamin C (Tab-A-Vit -) 1 tab PO DAILY [facility] Last Admin: 02/27/17 12:23 Dose: Not Given Spironolactone (Aldactone -) 25 mg PO DAILY [facility] Last Admin: 02/27/17 12:22 Dose: Not Given Tamsulosin HCl (Flomax -) 0.4 mg PO 1630 [facility] Last Admin: 02/26/17 17:19 Dose: 0.4 mg ASSESSMENT AND PLAN: funguria- continue cancidas d/c meropenem f/u labs in am afib with rvr dementia
[2017-02-27] MEDS: TAMSULOSIN HCL 0.4 MG CAP.ER.24H (FP) PO SCH (17:26)
--- NOTE | 2017-02-27 21:43 | PN ---
Progress Note, Physician History of Present Illness: No new change - Current Medication List Current Medications: Active Medications Aspirin (Asa -) 81 mg PO DAILY [facility] Last Admin: 02/27/17 12:23 Dose: Not Given Clonazepam (Klonopin -) 0.5 mg PO Q12H [facility] Last Admin: 02/27/17 12:22 Dose: Not Given Clopidogrel Bisulfate (Plavix -) 75 mg PO DAILY [facility] Last Admin: 02/27/17 12:23 Dose: Not Given Donepezil HCl (Aricept -) 10 mg PO DAILY [facility] Last Admin: 02/27/17 12:23 Dose: Not Given Heparin Sodium (Porcine) (Heparin -) 5,000 unit SQ BID [facility] Last Admin: 02/27/17 12:10 Dose: 5,000 unit Sodium Chloride (1/2 Normal Saline) 1,000 mls @ 75 mls/hr IV ASDIR [facility] Last Admin: 02/26/17 23:30 Dose: Not Given Caspofungin 50 mg/ Sodium (Chloride) 250 mls @ 250 mls/hr IVPB DAILY [facility] Last Admin: 02/27/17 10:13 Dose: 250 mls/hr Insulin Aspart (Novolog Vial Sliding Scale -) 1 vial SQ ACHS LUCY PRN Reason: Protocol Last Admin: 02/27/17 18:42 Dose: Not Given Metoprolol Tartrate (Lopressor Injection -) 5 mg IVPUSH Q4H PRN PRN Reason: FOR HEART RATE OVER 120 Last Admin: 02/26/17 07:07 Dose: 5 mg Metoprolol Tartrate (Lopressor -) 50 mg PO BID [facility] Last Admin: 02/27/17 12:23 Dose: Not Given Mirtazapine (Remeron -) 15 mg PO HS [facility] Last Admin: 02/26/17 23:30 Dose: 15 mg Multivitamins/Minerals/Vitamin C (Tab-A-Vit -) 1 tab PO DAILY [facility] Last Admin: 02/27/17 12:23 Dose: Not Given Spironolactone (Aldactone -) 25 mg PO DAILY [facility] Last Admin: 02/27/17 12:22 Dose: Not Given Tamsulosin HCl (Flomax -) 0.4 mg PO 1630 [facility] Last Admin: 02/27/17 17:26 Dose: 0.4 mg - Objective Vital Signs: Vital Signs Temperature 97.5 F L 02/27/17 14:48 Pulse Rate 109 H 02/27/17 14:48 Respiratory Rate 20 02/27/17 14:48 Blood Pressure 105/78 02/27/17 10:00 O2 Sat by Pulse Oximetry (%) 95 02/26/17 20:20 Constitutional: Yes: No Distress Neck: Yes: WNL, Supple Cardiovascular: Yes: Tachycardia, Pulse Irregular Respiratory: Yes: WNL, Regular, CTA Bilaterally Gastrointestinal: Yes: WNL, Normal Bowel Sounds, Soft Extremities: Yes: Other ((+) dry gangrene toes/lt heel) Labs: CBC, BMP 02/25/17 08:15 02/26/17 05:35 INR, PTT INR 1.33 (0.82-1.09) H 02/24/17 11:30 Problem List - Problems (1) Atrial fibrillation Code(s): I48.91 - UNSPECIFIED ATRIAL FIBRILLATION Qualifiers: Qualified Code(s): I48.91 - Unspecified atrial fibrillation (2) Sepsis Code(s): A41.9 - SEPSIS, UNSPECIFIED ORGANISM Qualifiers: Qualified Code(s): A41.9 - Sepsis, unspecified organism (3) Systolic CHF Code(s): I50.20 - UNSPECIFIED SYSTOLIC (CONGESTIVE) HEART FAILURE (4) ACS (acute coronary syndrome) Code(s): I24.9 - ACUTE ISCHEMIC HEART DISEASE, UNSPECIFIED (5) CAD (coronary artery disease) Code(s): I25.10 - ATHSCL HEART DISEASE OF [place] CORONARY ARTERY W/O ANG PCTRS (6) Dementia Code(s): F03.90 - UNSPECIFIED DEMENTIA WITHOUT BEHAVIORAL DISTURBANCE (7) Hyperlipidemia Code(s): E78.5 - HYPERLIPIDEMIA, UNSPECIFIED (8) Diabetes Code(s): E11.9 - TYPE 2 DIABETES MELLITUS WITHOUT COMPLICATIONS (9) HTN (hypertension) Code(s): I10 - ESSENTIAL (PRIMARY) HYPERTENSION (10) Normocytic anemia Code(s): D64.9 - ANEMIA, UNSPECIFIED
[2017-02-27] MEDS: MIRTAZAPINE 15 MG TABLET (FP) PO SCH (21:54)
[2017-02-27] MEDS: METOPROLOL TARTRATE 5 MG/5 ML VIAL IVPUSH PRN (21:55)
[2017-02-27] MEDS: SODIUM CHLORIDE 0.45% 1,000 ML IV SCH (21:55)
[2017-02-28] MEDS: METOPROLOL TARTRATE 5 MG/5 ML VIAL IVPUSH PRN (05:00)
[2017-02-28] MEDS: INSULIN SLIDING SCALE (NOVOLOG) 1 VIAL SQ SCH ×5 (08:00→21:16)
[2017-02-28 08:43] LABS: ALBUMIN 1.7 g/dl (3.4-5.0); ANION GAP 9 (8-16); CALCIUM 8.8 mg/dL (8.5-10.1); CO2 25 mmol/L (21-32); GLUCOSE,RANDOM 139 mg/dL (74-106)
[2017-02-28 08:45] LABS: ALK PHOS 64 U/L (45-117); BILIRUBIN,TOTAL 0.4 mg/dL (0.2-1.0); CREATININE 0.7 mg/dL (0.7-1.3); SGOT/AST 11 U/L (15-37); SGPT/ALT 10 U/L (12-78); TOT PROT 5.9 g/dl (6.4-8.2)
[2017-02-28] MEDS: CLOPIDOGREL BISULFATE 75 MG TABLET (FP) PO SCH (10:01)
[2017-02-28] MEDS: METOPROLOL TARTRATE 50 MG TABLET (FP) PO SCH (10:01)
[2017-02-28] MEDS: MULTIVITAMINS (DAILY MVI) TABLET (FP) PO SCH (10:01)
[2017-02-28] MEDS: ASPIRIN 81 MG CHEWABLE TABLETS PO SCH (10:01)
[2017-02-28] MEDS: SPIRONOLACTONE 25 MG TABLET (FP) PO SCH (10:01)
[2017-02-28] MEDS: DONEPEZIL HCL 10 MG TABLET (FP) PO SCH (10:01)
[2017-02-28] MEDS: HEPARIN NA (PORCINE) 5,000 UNITS/ML 1ML VIAL SQ SCH ×2 (10:02→21:16)
[2017-02-28] MEDS: CASPOFUNGIN ACETATE 50 MG in SODIUM CHLORIDE 250 ML IVPB SCH (10:02)
[2017-02-28 10:30] LABS: BASOPHIL 0.8 % (0-2.0); EOSINOPHIL 1.3 % (0-4.5); MCH 25.8 pg (25.7-33.7); MCHC 30.8 g/dl (32.0-35.9); MEAN CELL VOLUME 83.7 fl (80-96); MEAN PLT VOLUME 8.5 fl (7.5-11.1); NEUTROPHILS 82.7 % (42.8-82.8); PLATELET COUNT 493 K/MM3 (134-434); RDW 20.5 % (11.9-15.9); WHITE BLOOD COUNT 14.9 K/mm3 (4.0-10.0)
--- NOTE | 2017-02-28 10:56 | PN ---
Physical Exam: SUBJECTIVE: Patient seen and examined. Unable to obtain history due to dementia. OBJECTIVE: Vital Signs Period Temp Pulse Resp BP Sys/Mcdaniel Pulse Ox Last 24 Hr 97.5 F-98.0 F 109-145 16-20 106-115/47-75 95 GENERAL: no acute distress. HEAD: Normal with no signs of trauma. EYES: PERRL, extraocular movements intact, sclera anicteric, conjunctiva clear. No ptosis. ENT: Ears normal, nares patent, oropharynx clear without exudates, moist mucous membranes. NECK: supple. LUNGS: Breath sounds equal, clear to auscultation bilaterally, no wheezes, no crackles, no accessory muscle use. HEART: Regular rate and rhythm, S1, S2 without murmur, rub or gallop. ABDOMEN: Soft, nontender, nondistended, normoactive bowel sounds, no guarding, no rebound, no hepatosplenomegaly, no masses. EXTREMITIES: B/L dry gangrenous Lower extremity digits, dry gangrenous left heel SKIN: Warm, dry, normal turgor, no rashes or lesions noted Laboratory Results - last 24 hr 02/28/17 02/28/17 02/28/17 07:30 07:30 09:30 WBC Cancelled 14.9 H Corrected WBC (auto) Cancelled RBC Cancelled 3.66 L Hgb Cancelled 9.4 L Hct Cancelled 30.7 L MCV Cancelled 83.7 MCH Cancelled 25.8 MCHC Cancelled 30.8 L RDW Cancelled 20.5 H Plt Count Cancelled 493 H MPV Cancelled 8.5 Neutrophils % Cancelled 82.7 Lymphocytes % Cancelled 11.3 Monocytes % Cancelled 3.9 Eosinophils % Cancelled 1.3 D Basophils % Cancelled 0.8 D Platelet Estimate Cancelled Platelet Comment Cancelled RBC Morphology Cancelled Sodium 147 H Potassium 4.2 Chloride 113 H Carbon Dioxide 25 D Anion Gap 9 BUN 16 Creatinine 0.7 D Creat Clearance w eGFR > 60 Random Glucose 139 H Calcium 8.8 Total Bilirubin 0.4 AST 11 L D ALT 10 L Alkaline Phosphatase 64 Total Protein 5.9 L Albumin 1.7 L D Active Medications Generic Name Dose Route Start Last Admin Trade Name Freq PRN Reason Stop Dose Admin Aspirin 81 mg 02/25/17 10:00 02/28/17 10:01 Asa - PO 81 mg DAILY LUCY Administration Clonazepam 0.5 mg 02/24/17 21:45 02/27/17 21:54 Klonopin - PO 0.5 mg Q12H LUCY Administration Clopidogrel Bisulfate 75 mg 02/25/17 10:00 02/28/17 10:01 Plavix - PO 75 mg DAILY [facility]UCY Administration Donepezil HCl 10 mg 02/25/17 10:00 02/28/17 10:01 Aricept - PO 10 mg DAILY [facility]UCY Administration Heparin Sodium (Porcine) 5,000 unit 02/25/17 10:00 02/28/17 10:02 Heparin - SQ 5,000 unit BID LUCY Administration Sodium Chloride 1,000 mls @ 75 mls/hr 02/24/17 21:45 02/27/17 21:55 1/2 Normal Saline IV 75 mls/hr ASDIR LUCY Administration Caspofungin 50 mg/ Sodium 250 mls @ 250 mls/hr 02/26/17 10:00 02/28/17 10:02 Chloride IVPB 250 mls/hr DAILY [facility]UCY Administration Insulin Aspart 1 vial 02/24/17 22:00 02/28/17 08:00 Novolog Vial Sliding Scale - SQ Not Given ACHS [facility] Protocol Metoprolol Tartrate 5 mg 02/24/17 18:48 02/28/17 05:00 Lopressor Injection - IVPUSH 5 mg Q4H PRN Administration FOR HEART RATE OVER 120 Metoprolol Tartrate 50 mg 02/24/17 22:00 02/28/17 10:01 Lopressor - PO 50 mg BID [facility]UCY Administration Mirtazapine 15 mg 02/24/17 22:00 02/27/17 21:54 Remeron - PO 15 mg HS [facility]UCY Administration Multivitamins/Minerals/Vitamin C 1 tab 02/25/17 10:00 02/28/17 10:01 Tab-A-Vit - PO 1 tab DAILY [facility] Administration Spironolactone 25 mg 02/25/17 10:00 02/28/17 10:01 Aldactone - PO 25 mg DAILY [facility] Administration Tamsulosin HCl 0.4 mg 02/25/17 16:30 02/27/17 17:26 Flomax - PO 0.4 mg 1630 LUCY Administration ASSESSMENT/PLAN: ASSESSMENT/PLAN: 1) Sepsis secondary to UTI - Funguria - continue Cancidas (Day 4- complete to Day 7) 2) Dry gangrene of the feet -doubtful cause of infection Visit type - Emergency Visit Emergency Visit: Yes ED Registration Date: 02/24/17 Care time: The patient presented to the Emergency Department on the above date and was hospitalized for further evaluation of their emergent condition. - New Patient This patient is new to me today: No - Critical Care Critical Care patient: No
[2017-02-28] MEDS ORDERED: METOPROLOL TARTRATE 5 MG/5 ML VIAL IVPUSH SCH (11:00)
[2017-02-28] MEDS: clonazePAM 0.5 MG TABLET PO SCH ×3 (11:04→21:56)
--- NOTE | 2017-02-28 11:10 | PN ---
Progress Note, Physician Chief Complaint: Pt lying in bed, with mitts to keep from pulling out lines; arousable verbally. History of Present Illness: The patient is a 76-year-old male (b. [place]), with past medical history of Alzheimer's, severe systolic LV dysfunction, s/p NSTEMI, PAD, HLD, NIDDM, and HTN, who presents to the emergency department today with dry gangrene of his right foot. Patient presents for admission at request of Dr. Kothari, vascular, for workup and angiogram. Upon arrival to the ED, the pt. was found to have a heart rate in the 150's. Pt. cannot state if he has any chest pain. Patient has baseline dementia. T - Current Medication List Current Medications: Active Medications Aspirin (Asa -) 81 mg PO DAILY [facility] Last Admin: 02/28/17 10:01 Dose: 81 mg Clonazepam (Klonopin -) 0.5 mg PO Q12H [facility] Last Admin: 02/27/17 21:54 Dose: 0.5 mg Clopidogrel Bisulfate (Plavix -) 75 mg PO DAILY [facility] Last Admin: 02/28/17 10:01 Dose: 75 mg Donepezil HCl (Aricept -) 10 mg PO DAILY [facility] Last Admin: 02/28/17 10:01 Dose: 10 mg Heparin Sodium (Porcine) (Heparin -) 5,000 unit SQ BID [facility] Last Admin: 02/28/17 10:02 Dose: 5,000 unit Sodium Chloride (1/2 Normal Saline) 1,000 mls @ 75 mls/hr IV ASDIR [facility] Last Admin: 02/27/17 21:55 Dose: 75 mls/hr Caspofungin 50 mg/ Sodium (Chloride) 250 mls @ 250 mls/hr IVPB DAILY [facility] Last Admin: 02/28/17 10:02 Dose: 250 mls/hr Insulin Aspart (Novolog Vial Sliding Scale -) 1 vial SQ ACHS [facility] PRN Reason: Protocol Last Admin: 02/28/17 08:00 Dose: Not Given Metoprolol Tartrate (Lopressor Injection -) 5 mg IVPUSH Q4H [facility] Mirtazapine (Remeron -) 15 mg PO HS [facility] Last Admin: 02/27/17 21:54 Dose: 15 mg Multivitamins/Minerals/Vitamin C (Tab-A-Vit -) 1 tab PO DAILY [facility] Last Admin: 02/28/17 10:01 Dose: 1 tab Spironolactone (Aldactone -) 25 mg PO DAILY [facility] Last Admin: 02/28/17 10:01 Dose: 25 mg Tamsulosin HCl (Flomax -) 0.4 mg PO 1630 [facility] Last Admin: 02/27/17 17:26 Dose: 0.4 mg - Objective Vital Signs: Vital Signs Temperature 97.5 F L 02/28/17 05:40 Pulse Rate 115 H 02/28/17 05:40 Respiratory Rate 16 02/28/17 05:40 Blood Pressure 115/60 02/28/17 05:40 O2 Sat by Pulse Oximetry (%) 95 02/27/17 22:00 Constitutional: Yes: Calm Eyes: Yes: WNL HENT: Yes: WNL Neck: Yes: Supple Cardiovascular: Yes: Pulse Irregular Respiratory: Yes: Regular Gastrointestinal: Yes: Soft Genitourinary: No: Anuria Musculoskeletal: Yes: Muscle Weakness Extremities: Yes: Cold Edema: No Peripheral Pulses WNL: No Peripheral Pulses: Left Doralis Pedis: 1+, Right Dorsalis Pedis: 1+ Integumentary: Yes: Venous Stasis Changes Wound/Incision: Yes: Open to air Neurological: Yes: Tingling Psychiatric: Yes: Other (?hx bipolar disorder; dementia) Labs: CBC, BMP 02/28/17 09:30 02/28/17 07:30 INR, PTT INR 1.33 (0.82-1.09) H 02/24/17 11:30 Problem List - Problems (1) Atrial fibrillation Assessment/Plan: On metoprolol; however, it has been difficult to give him PO meds. Recommend give IV metoprolol around the clock until pt is more compliant to PO regime. Code(s): I48.91 - UNSPECIFIED ATRIAL FIBRILLATION Qualifiers: Qualified Code(s): I48.91 - Unspecified atrial fibrillation (2) Open wound of left foot Assessment/Plan: gangrene; open wound f/u with vascular specialist. Code(s): S91.302A - UNSPECIFIED OPEN WOUND, LEFT FOOT, INITIAL ENCOUNTER Qualifiers: Qualified Code(s): S91.302D - Unspecified open wound, left foot, subsequent encounter (3) Sepsis Code(s): A41.9 - SEPSIS, UNSPECIFIED ORGANISM Qualifiers: Qualified Code(s): A41.9 - Sepsis, unspecified organism (4) Tachycardia Code(s): R00.0 - TACHYCARDIA, UNSPECIFIED (5) ACS (acute coronary syndrome) Assessment/Plan: s/p NSTEMI 12/28. Pt's family opted at that time for conservative management (no coronary angiogram). Continue medications for systolic CHF Code(s): I24.9 - ACUTE ISCHEMIC HEART DISEASE, UNSPECIFIED (6) CAD (coronary artery disease) Code(s): I25.10 - ATHSCL HEART DISEASE OF [place] CORONARY ARTERY W/O ANG PCTRS (7) Dementia Code(s): F03.90 - UNSPECIFIED DEMENTIA WITHOUT BEHAVIORAL DISTURBANCE (8) Hyperlipidemia Code(s): E78.5 - HYPERLIPIDEMIA, UNSPECIFIED (9) Infection of left foot Code(s): L08.9 - LOCAL INFECTION OF THE SKIN AND SUBCUTANEOUS TISSUE, UNSP (10) NSTEMI (non-ST elevated myocardial infarction) Code(s): I21.4 - NON-ST ELEVATION (NSTEMI) MYOCARDIAL INFARCTION (11) Diabetes Code(s): E11.9 - TYPE 2 DIABETES MELLITUS WITHOUT COMPLICATIONS (12) Normocytic anemia Code(s): D64.9 - ANEMIA, UNSPECIFIED (13) Systolic CHF Code(s): I50.20 - UNSPECIFIED SYSTOLIC (CONGESTIVE) HEART FAILURE
--- NOTE | 2017-02-28 12:20 | PN ---
Teaching Attending Note Name of Resident: Hema Chong ATTENDING PHYSICIAN STATEMENT I saw and evaluated the patient. I reviewed the resident's note and discussed the case with the resident. I agree with the resident's findings and plan as documented. SUBJECTIVE: resting quietly still with kamilla cordova in place OBJECTIVE: Vital Signs Period Temp Pulse Resp BP Sys/Mcdaniel Pulse Ox Last 24 Hr 97.5 F-98.0 F 109-145 16-20 106-115/47-75 95 cor-rrr lung clear abd soft,nt ext no edema +cordova CBC, BMP 02/28/17 09:30 02/28/17 07:30 Microbiology 02/24/17 12:00 Blood - Peripheral Venous Blood Culture - Preliminary NO GROWTH OBTAINED AFTER 72 HOURS, INCUBATION TO CONTINUE FOR 2 DAYS. 02/24/17 12:00 Blood - Peripheral Venous Blood Culture - Preliminary NO GROWTH OBTAINED AFTER 72 HOURS, INCUBATION TO CONTINUE FOR 2 DAYS. 02/25/17 23:40 Urine - Urine Cordova Urine Culture - Final Yeast Like Organism 02/24/17 13:05 Urine - Urine - Catheterized Urine Culture - Final Yeast Like Organism Current Medications Aspirin (Asa -) 81 mg PO DAILY [facility] Last Admin: 02/28/17 10:01 Dose: 81 mg Clonazepam (Klonopin -) 0.5 mg PO Q12H [facility] Last Admin: 02/28/17 11:04 Dose: Not Given Clopidogrel Bisulfate (Plavix -) 75 mg PO DAILY [facility] Last Admin: 02/28/17 10:01 Dose: 75 mg Donepezil HCl (Aricept -) 10 mg PO DAILY [facility] Last Admin: 02/28/17 10:01 Dose: 10 mg Heparin Sodium (Porcine) (Heparin -) 5,000 unit SQ BID [facility] Last Admin: 02/28/17 10:02 Dose: 5,000 unit Sodium Chloride (1/2 Normal Saline) 1,000 mls @ 75 mls/hr IV ASDIR [facility] Last Admin: 02/27/17 21:55 Dose: 75 mls/hr Caspofungin 50 mg/ Sodium (Chloride) 250 mls @ 250 mls/hr IVPB DAILY [facility] Last Admin: 02/28/17 10:02 Dose: 250 mls/hr Insulin Aspart (Novolog Vial Sliding Scale -) 1 vial SQ ACHS [facility] PRN Reason: Protocol Last Admin: 02/28/17 12:15 Dose: 168 units Metoprolol Tartrate (Lopressor Injection -) 5 mg IVPUSH Q4H-IV [facility] Mirtazapine (Remeron -) 15 mg PO HS [facility] Last Admin: 02/27/17 21:54 Dose: 15 mg Multivitamins/Minerals/Vitamin C (Tab-A-Vit -) 1 tab PO DAILY [facility] Last Admin: 02/28/17 10:01 Dose: 1 tab Spironolactone (Aldactone -) 25 mg PO DAILY [facility] Last Admin: 02/28/17 10:01 Dose: 25 mg Tamsulosin HCl (Flomax -) 0.4 mg PO 1630 [facility] Last Admin: 02/27/17 17:26 Dose: 0.4 mg ASSESSMENT AND PLAN: funguria cordova retention plan 7 days total antifungal treatment now day #4 f/u urology dry gangrene of the feet- per vascular
[2017-02-28] MEDS ORDERED: INSULIN (NOVOLOG) ASPART 100 UNITS/ML 10ML VIAL ONE (12:24)
[2017-02-28] MEDS: METOPROLOL TARTRATE 5 MG/5 ML VIAL IVPUSH SCH ×3 (14:25→21:10)
[2017-02-28] MEDS: TAMSULOSIN HCL 0.4 MG CAP.ER.24H (FP) PO SCH (16:27)
--- NOTE | 2017-02-28 21:02 | PN ---
Progress Note, Physician History of Present Illness: No new change - Current Medication List Current Medications: Active Medications Aspirin (Asa -) 81 mg PO DAILY [facility] Last Admin: 02/28/17 10:01 Dose: 81 mg Clonazepam (Klonopin -) 0.5 mg PO Q12H [facility] Last Admin: 02/28/17 11:04 Dose: Not Given Clopidogrel Bisulfate (Plavix -) 75 mg PO DAILY [facility] Last Admin: 02/28/17 10:01 Dose: 75 mg Donepezil HCl (Aricept -) 10 mg PO DAILY [facility] Last Admin: 02/28/17 10:01 Dose: 10 mg Heparin Sodium (Porcine) (Heparin -) 5,000 unit SQ BID [facility] Last Admin: 02/28/17 10:02 Dose: 5,000 unit Sodium Chloride (1/2 Normal Saline) 1,000 mls @ 75 mls/hr IV ASDIR [facility] Last Admin: 02/27/17 21:55 Dose: 75 mls/hr Caspofungin 50 mg/ Sodium (Chloride) 250 mls @ 250 mls/hr IVPB DAILY [facility] Stop: 03/03/17 12:20 Insulin Aspart (Novolog Vial Sliding Scale -) 1 vial SQ ACHS [facility] PRN Reason: Protocol Last Admin: 02/28/17 16:27 Dose: Not Given Metoprolol Tartrate (Lopressor Injection -) 5 mg IVPUSH Q4H-IV [facility] Last Admin: 02/28/17 18:30 Dose: 5 mg Mirtazapine (Remeron -) 15 mg PO HS [facility] Last Admin: 02/27/17 21:54 Dose: 15 mg Multivitamins/Minerals/Vitamin C (Tab-A-Vit -) 1 tab PO DAILY [facility] Last Admin: 02/28/17 10:01 Dose: 1 tab Spironolactone (Aldactone -) 25 mg PO DAILY [facility] Last Admin: 02/28/17 10:01 Dose: 25 mg Tamsulosin HCl (Flomax -) 0.4 mg PO 1630 [facility] Last Admin: 02/28/17 16:27 Dose: Not Given - Objective Vital Signs: Vital Signs Temperature 98.3 F 02/28/17 14:11 Pulse Rate 125 H 02/28/17 18:30 Respiratory Rate 18 02/28/17 14:11 Blood Pressure 97/58 02/28/17 18:30 O2 Sat by Pulse Oximetry (%) 97 02/28/17 09:00 Constitutional: Yes: No Distress Neck: Yes: WNL, Supple Cardiovascular: Yes: Tachycardia, Pulse Irregular Respiratory: Yes: Diminished Gastrointestinal: Yes: WNL, Normal Bowel Sounds, Soft Extremities: Yes: Other ((+) dry gangrene toes and lt heel) Labs: CBC, BMP 02/28/17 09:30 02/28/17 07:30 INR, PTT INR 1.33 (0.82-1.09) H 02/24/17 11:30 Problem List - Problems (1) Atrial fibrillation Code(s): I48.91 - UNSPECIFIED ATRIAL FIBRILLATION Qualifiers: Qualified Code(s): I48.91 - Unspecified atrial fibrillation (2) Sepsis Assessment/Plan: Cont IV cancidas WBC still elevated but decreasing Funguria/gangrene Pt also w/ gangrene and will need angiogram as per vascular once sepsis controlled Code(s): A41.9 - SEPSIS, UNSPECIFIED ORGANISM Qualifiers: Qualified Code(s): A41.9 - Sepsis, unspecified organism (3) Systolic CHF Code(s): I50.20 - UNSPECIFIED SYSTOLIC (CONGESTIVE) HEART FAILURE (4) ACS (acute coronary syndrome) Code(s): I24.9 - ACUTE ISCHEMIC HEART DISEASE, UNSPECIFIED (5) CAD (coronary artery disease) Code(s): I25.10 - ATHSCL HEART DISEASE OF [place] CORONARY ARTERY W/O ANG PCTRS (6) Dementia Code(s): F03.90 - UNSPECIFIED DEMENTIA WITHOUT BEHAVIORAL DISTURBANCE (7) Hyperlipidemia Code(s): E78.5 - HYPERLIPIDEMIA, UNSPECIFIED (8) Diabetes Code(s): E11.9 - TYPE 2 DIABETES MELLITUS WITHOUT COMPLICATIONS (9) HTN (hypertension) Code(s): I10 - ESSENTIAL (PRIMARY) HYPERTENSION (10) Normocytic anemia Code(s): D64.9 - ANEMIA, UNSPECIFIED
[2017-02-28] MEDS: MIRTAZAPINE 15 MG TABLET (FP) PO SCH ×2 (21:17→21:57)
[2017-03-01] MEDS: METOPROLOL TARTRATE 5 MG/5 ML VIAL IVPUSH SCH ×6 (01:47→22:55)
[2017-03-01] MEDS: INSULIN SLIDING SCALE (NOVOLOG) 1 VIAL SQ SCH ×4 (06:30→22:54)
[2017-03-01 07:27] LABS: BASOPHIL 0.4 % (0-2.0); EOSINOPHIL 1.5 % (0-4.5); MCH 26.6 pg (25.7-33.7); MCHC 31.9 g/dl (32.0-35.9); MEAN CELL VOLUME 83.2 fl (80-96); MEAN PLT VOLUME 8.7 fl (7.5-11.1); PLATELET COUNT 499 K/MM3 (134-434); RDW 20.3 % (11.9-15.9); WHITE BLOOD COUNT 13.2 K/mm3 (4.0-10.0)
[2017-03-01 07:58] LABS: ALBUMIN 1.7 g/dl (3.4-5.0); ANION GAP 10 (8-16); CALCIUM 8.6 mg/dL (8.5-10.1); CO2 26 mmol/L (21-32); GLUCOSE,RANDOM 130 mg/dL (74-106)
[2017-03-01 08:02] LABS: ALK PHOS 62 U/L (45-117); BILIRUBIN,TOTAL 0.4 mg/dL (0.2-1.0); CREATININE 0.7 mg/dL (0.7-1.3); SGOT/AST 8 U/L (15-37); SGPT/ALT 10 U/L (12-78); TOT PROT 5.9 g/dl (6.4-8.2)
[2017-03-01] MEDS ORDERED: PT OWN MED DRAWER 7, Y5N ONE (08:58)
[2017-03-01] MEDS: SPIRONOLACTONE 25 MG TABLET (FP) PO SCH (11:05)
[2017-03-01] MEDS: CLOPIDOGREL BISULFATE 75 MG TABLET (FP) PO SCH (11:05)
[2017-03-01] MEDS: DONEPEZIL HCL 10 MG TABLET (FP) PO SCH (11:05)
[2017-03-01] MEDS: clonazePAM 0.5 MG TABLET PO SCH ×2 (11:05→22:54)
[2017-03-01] MEDS: MULTIVITAMINS (DAILY MVI) TABLET (FP) PO SCH (11:05)
[2017-03-01] MEDS: ASPIRIN 81 MG CHEWABLE TABLETS PO SCH (11:05)
[2017-03-01] MEDS: HEPARIN NA (PORCINE) 5,000 UNITS/ML 1ML VIAL SQ SCH ×2 (11:05→22:54)
[2017-03-01] MEDS: SODIUM CHLORIDE 0.45% 1,000 ML IV SCH (11:10)
[2017-03-01] MEDS: CASPOFUNGIN ACETATE 50 MG in SODIUM CHLORIDE 250 ML IVPB SCH (11:10)
--- NOTE | 2017-03-01 13:06 | PN ---
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 unchanged +arndt- urine clearing CBC, BMP 03/01/17 06:35 03/01/17 06:35 Microbiology 02/24/17 12:00 Blood - Peripheral Venous Blood Culture - Final NO GROWTH AFTER 5 DAYS INCUBATION 02/24/17 12:00 Blood - Peripheral Venous Blood Culture - Final NO GROWTH AFTER 5 DAYS INCUBATION 02/25/17 23:40 Urine - Urine Arndt Urine Culture - Final Yeast Like Organism 02/24/17 13:05 Urine - Urine - Catheterized Urine Culture - Final Yeast Like Organism a/p funguria/urinary retention-to complete 7 days cancidas (no diflucan due to interaction with plavix) on Friday am management of afib per cardiology management of feet (dry gangrene) per vascular dementia please call back if needed will sign off
--- NOTE | 2017-03-01 16:05 | PN ---
Progress Note, Physician Chief Complaint: Pt is demented; occasionally agitated, requiring restraints. History of Present Illness: The patient is a 76-year-old male (b. 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 Patient presents for admission at request of Dr. Kothari, vascular, for workup and angiogram. Upon arrival to the ED, the pt. was found to have a heart rate in the 150's. Pt. cannot state if he has any chest pain. Patient has baseline dementia. T - Current Medication List Current Medications: Active Medications Aspirin (Asa -) 81 mg PO DAILY [facility] Last Admin: 03/01/17 11:05 Dose: 81 mg Clonazepam (Klonopin -) 0.5 mg PO Q12H [facility] Last Admin: 03/01/17 11:05 Dose: 0.5 mg Clopidogrel Bisulfate (Plavix -) 75 mg PO DAILY [facility] Last Admin: 03/01/17 11:05 Dose: 75 mg Donepezil HCl (Aricept -) 10 mg PO DAILY [facility] Last Admin: 03/01/17 11:05 Dose: 10 mg Heparin Sodium (Porcine) (Heparin -) 5,000 unit SQ BID [facility] Last Admin: 03/01/17 11:05 Dose: 5,000 unit Sodium Chloride (1/2 Normal Saline) 1,000 mls @ 75 mls/hr IV ASDIR [facility] Last Admin: 03/01/17 11:10 Dose: 75 mls/hr Caspofungin 50 mg/ Sodium (Chloride) 250 mls @ 250 mls/hr IVPB DAILY [facility] Stop: 03/03/17 12:20 Last Admin: 03/01/17 11:10 Dose: 250 mls/hr Insulin Aspart (Novolog Vial Sliding Scale -) 1 vial SQ ACHS [facility] PRN Reason: Protocol Last Admin: 03/01/17 12:42 Dose: Not Given Metoprolol Tartrate (Lopressor Injection -) 5 mg IVPUSH Q4H-IV [facility] Last Admin: 03/01/17 11:06 Dose: 5 mg Mirtazapine (Remeron -) 15 mg PO HS [facility] Last Admin: 02/28/17 21:57 Dose: 15 mg Multivitamins/Minerals/Vitamin C (Tab-A-Vit -) 1 tab PO DAILY [facility] Last Admin: 03/01/17 11:05 Dose: 1 tab Spironolactone (Aldactone -) 25 mg PO DAILY [facility] Last Admin: 03/01/17 11:05 Dose: 25 mg Tamsulosin HCl (Flomax -) 0.4 mg PO 1630 [facility] Last Admin: 02/28/17 16:27 Dose: Not Given - Objective Vital Signs: Vital Signs Temperature 97.7 F 03/01/17 14:23 Pulse Rate 129 H 03/01/17 14:23 Respiratory Rate 16 03/01/17 14:23 Blood Pressure 106/65 03/01/17 14:23 O2 Sat by Pulse Oximetry (%) 97 03/01/17 10:00 Constitutional: Yes: Thin Eyes: Yes: WNL HENT: Yes: WNL Neck: Yes: WNL Cardiovascular: Yes: Pulse Irregular Respiratory: Yes: Regular Gastrointestinal: Yes: Soft Genitourinary: No: Anuria Musculoskeletal: Yes: Muscle Weakness Extremities: Yes: Cool Edema: No Peripheral Pulses WNL: No Peripheral Pulses: Left Doralis Pedis: 1+, Right Dorsalis Pedis: 1+ Integumentary: Yes: Other (gangrene, foul smelling (big toes; 3rd right toe); open wound) Wound/Incision: Yes: Open to air Neurological: Yes: Confusion, Weakness Psychiatric: Yes: Other Labs: CBC, BMP 03/01/17 06:35 03/01/17 06:35 INR, PTT INR 1.33 (0.82-1.09) H 02/24/17 11:30 - ....Imaging Chest X-ray: Image Reviewed (no acute changes (exceptpossibly left base: uncertain/obscured)) Problem List - Problems (1) Atrial fibrillation Assessment/Plan: On metoprolol for HR control. ?too high risk (from falls) for anticoagulation. Code(s): I48.91 - UNSPECIFIED ATRIAL FIBRILLATION Qualifiers: Qualified Code(s): I48.91 - Unspecified atrial fibrillation (2) Open wound of left foot Assessment/Plan: gangrene; open wound f/u with vascular specialist. Code(s): S91.302A - UNSPECIFIED OPEN WOUND, LEFT FOOT, INITIAL ENCOUNTER Qualifiers: Qualified Code(s): S91.302D - Unspecified open wound, left foot, subsequent encounter (3) Sepsis Code(s): A41.9 - SEPSIS, UNSPECIFIED ORGANISM Qualifiers: Qualified Code(s): A41.9 - Sepsis, unspecified organism (4) Tachycardia Assessment/Plan: AF with periods of RVR. On metoprolol. Maintain hydration. Code(s): R00.0 - TACHYCARDIA, UNSPECIFIED (5) ACS (acute coronary syndrome) Assessment/Plan: s/p NSTEMI 12/28. Pt's family opted at that time for conservative management (no coronary angiogram). Continue medications for systolic CHF Code(s): I24.9 - ACUTE ISCHEMIC HEART DISEASE, UNSPECIFIED (6) CAD (coronary artery disease) Code(s): I25.10 - ATHSCL HEART DISEASE OF [place] CORONARY ARTERY W/O ANG PCTRS (7) Dementia Assessment/Plan: Profound dementia. Pt's daughters have, in the past, discussed options for care of their father, including hospice. Code(s): F03.90 - UNSPECIFIED DEMENTIA WITHOUT BEHAVIORAL DISTURBANCE (8) Hyperlipidemia Code(s): E78.5 - HYPERLIPIDEMIA, UNSPECIFIED (9) Infection of left foot Code(s): L08.9 - LOCAL INFECTION OF THE SKIN AND SUBCUTANEOUS TISSUE, UNSP (10) NSTEMI (non-ST elevated myocardial infarction) Code(s): I21.4 - NON-ST ELEVATION (NSTEMI) MYOCARDIAL INFARCTION (11) Diabetes Code(s): E11.9 - TYPE 2 DIABETES MELLITUS WITHOUT COMPLICATIONS (12) Normocytic anemia Code(s): D64.9 - ANEMIA, UNSPECIFIED (13) Systolic CHF Assessment/Plan: On Aldactone and metoprolol. Add ACEI if BUN/Cr and electrolytes allow. F/u BUN/Cr, electrolytes, Is and OS, daily weights. Serial TNI. Code(s): I50.20 - UNSPECIFIED SYSTOLIC (CONGESTIVE) HEART FAILURE
[2017-03-01] MEDS: TAMSULOSIN HCL 0.4 MG CAP.ER.24H (FP) PO SCH (17:40)
--- NOTE | 2017-03-01 17:56 | PN ---
Progress Note, Physician History of Present Illness: No new change - Current Medication List Current Medications: Active Medications Aspirin (Asa -) 81 mg PO DAILY [facility] Last Admin: 03/01/17 11:05 Dose: 81 mg Clonazepam (Klonopin -) 0.5 mg PO Q12H [facility] Last Admin: 03/01/17 11:05 Dose: 0.5 mg Clopidogrel Bisulfate (Plavix -) 75 mg PO DAILY [facility] Last Admin: 03/01/17 11:05 Dose: 75 mg Donepezil HCl (Aricept -) 10 mg PO DAILY [facility] Last Admin: 03/01/17 11:05 Dose: 10 mg Heparin Sodium (Porcine) (Heparin -) 5,000 unit SQ BID [facility] Last Admin: 03/01/17 11:05 Dose: 5,000 unit Sodium Chloride (1/2 Normal Saline) 1,000 mls @ 75 mls/hr IV ASDIR [facility] Last Admin: 03/01/17 11:10 Dose: 75 mls/hr Caspofungin 50 mg/ Sodium (Chloride) 250 mls @ 250 mls/hr IVPB DAILY [facility] Stop: 03/03/17 12:20 Last Admin: 03/01/17 11:10 Dose: 250 mls/hr Insulin Aspart (Novolog Vial Sliding Scale -) 1 vial SQ ACHS [facility] PRN Reason: Protocol Last Admin: 03/01/17 16:59 Dose: Not Given Metoprolol Tartrate (Lopressor Injection -) 5 mg IVPUSH Q4H-IV [facility] Last Admin: 03/01/17 17:39 Dose: 5 mg Mirtazapine (Remeron -) 15 mg PO HS [facility] Last Admin: 02/28/17 21:57 Dose: 15 mg Multivitamins/Minerals/Vitamin C (Tab-A-Vit -) 1 tab PO DAILY [facility] Last Admin: 03/01/17 11:05 Dose: 1 tab Spironolactone (Aldactone -) 25 mg PO DAILY [facility] Last Admin: 03/01/17 11:05 Dose: 25 mg Tamsulosin HCl (Flomax -) 0.4 mg PO 1630 [facility] Last Admin: 03/01/17 17:40 Dose: Not Given - Objective Vital Signs: Vital Signs Temperature 97.7 F 03/01/17 14:23 Pulse Rate 114 H 03/01/17 17:39 Respiratory Rate 16 03/01/17 14:23 Blood Pressure 123/74 03/01/17 17:39 O2 Sat by Pulse Oximetry (%) 97 03/01/17 10:00 Constitutional: Yes: No Distress Neck: Yes: WNL, Supple Cardiovascular: Yes: WNL, Regular Rate and Rhythm Respiratory: Yes: WNL, Regular, CTA Bilaterally Gastrointestinal: Yes: WNL, Normal Bowel Sounds, Soft Labs: CBC, BMP 03/01/17 06:35 03/01/17 06:35 INR, PTT INR 1.33 (0.82-1.09) H 02/24/17 11:30 Problem List - Problems (1) Atrial fibrillation Assessment/Plan: Pt on IV metoprolol Pt is still tachy Cont to monitor rate Pt not on AC due to h/o bleeding Code(s): I48.91 - UNSPECIFIED ATRIAL FIBRILLATION Qualifiers: Qualified Code(s): I48.91 - Unspecified atrial fibrillation (2) Sepsis Assessment/Plan: Cont IV cancidas until friday WBC still elevated but decreasing Funguria Pt also w/ gangrene and will need angiogram as per vascular once sepsis controlled Code(s): A41.9 - SEPSIS, UNSPECIFIED ORGANISM Qualifiers: Qualified Code(s): A41.9 - Sepsis, unspecified organism (3) Systolic CHF Assessment/Plan: Acute on chronic systolic CHF Cont spirinolactone monitor electrolytes Code(s): I50.20 - UNSPECIFIED SYSTOLIC (CONGESTIVE) HEART FAILURE (4) ACS (acute coronary syndrome) Assessment/Plan: Cont asa Code(s): I24.9 - ACUTE ISCHEMIC HEART DISEASE, UNSPECIFIED (5) CAD (coronary artery disease) Code(s): I25.10 - ATHSCL HEART DISEASE OF [place] CORONARY ARTERY W/O ANG PCTRS (6) Dementia Assessment/Plan: Cont aricept Code(s): F03.90 - UNSPECIFIED DEMENTIA WITHOUT BEHAVIORAL DISTURBANCE (7) Diabetes Assessment/Plan: Cont sliding scale w/ novolog Code(s): E11.9 - TYPE 2 DIABETES MELLITUS WITHOUT COMPLICATIONS (8) HTN (hypertension) Code(s): I10 - ESSENTIAL (PRIMARY) HYPERTENSION (9) Normocytic anemia Code(s): D64.9 - ANEMIA, UNSPECIFIED (10) Hyperlipidemia Code(s): E78.5 - HYPERLIPIDEMIA, UNSPECIFIED
[2017-03-01] MEDS: MIRTAZAPINE 15 MG TABLET (FP) PO SCH (22:54)
[2017-03-01] MEDS ORDERED: SODIUM CHLORIDE 250 ML IV ONE (23:45)
[2017-03-01] MEDS ORDERED: DEXTROSE 5%-0.45% SALINE 1,000 ML IV SCH (23:45)
[2017-03-01] MEDS: DIGOXIN 0.5 MG/2 ML AMPUL IVPUSH SCH (23:57)
[2017-03-02] MEDS: DEXTROSE 5%-0.45% SALINE 1,000 ML IV SCH (00:03)
[2017-03-02] MEDS: INSULIN SLIDING SCALE (NOVOLOG) 1 VIAL SQ SCH ×4 (06:53→22:18)
[2017-03-02] MEDS: DIGOXIN 0.5 MG/2 ML AMPUL IVPUSH SCH ×3 (06:53→18:05)
[2017-03-02 07:21] LABS: BASOPHIL 0.3 % (0-2.0); EOSINOPHIL 1.3 % (0-4.5); MCH 26.6 pg (25.7-33.7); MEAN CELL VOLUME 83.2 fl (80-96); MEAN PLT VOLUME 8.6 fl (7.5-11.1); NEUTROPHILS 79.4 % (42.8-82.8); PLATELET COUNT 502 K/MM3 (134-434); RDW 20.6 % (11.9-15.9); WHITE BLOOD COUNT 12.7 K/mm3 (4.0-10.0)
[2017-03-02 08:02] LABS: ALBUMIN 1.8 g/dl (3.4-5.0); ALK PHOS 64 U/L (45-117); ANION GAP 9 (8-16); BILIRUBIN,TOTAL 0.6 mg/dL (0.2-1.0); CALCIUM 8.4 mg/dL (8.5-10.1); CO2 26 mmol/L (21-32); CREATININE 0.6 mg/dL (0.7-1.3); GLUCOSE,RANDOM 155 mg/dL (74-106); SGOT/AST 8 U/L (15-37); SGPT/ALT 9 U/L (12-78)
[2017-03-02 08:45] LABS: ANISOCYTOSIS 1+; HYPOCHROMIA 1+
[2017-03-02] MEDS ORDERED: PT OWN MED DRAWER 7, Y5N ONE (10:26)
[2017-03-02] MEDS: SPIRONOLACTONE 25 MG TABLET (FP) PO SCH (10:32)
[2017-03-02] MEDS: HEPARIN NA (PORCINE) 5,000 UNITS/ML 1ML VIAL SQ SCH ×2 (10:32→22:19)
[2017-03-02] MEDS: clonazePAM 0.5 MG TABLET PO SCH ×2 (10:33→22:19)
[2017-03-02] MEDS: DONEPEZIL HCL 10 MG TABLET (FP) PO SCH (10:33)
[2017-03-02] MEDS: CLOPIDOGREL BISULFATE 75 MG TABLET (FP) PO SCH (10:33)
[2017-03-02] MEDS: CASPOFUNGIN ACETATE 50 MG in SODIUM CHLORIDE 250 ML IVPB SCH (10:33)
[2017-03-02] MEDS: ASPIRIN 81 MG CHEWABLE TABLETS PO SCH (10:33)
[2017-03-02] MEDS: MULTIVITAMINS (DAILY MVI) TABLET (FP) PO SCH (10:43)
[2017-03-02] MEDS: TAMSULOSIN HCL 0.4 MG CAP.ER.24H (FP) PO SCH (17:07)
--- NOTE | 2017-03-02 21:01 | PN ---
Progress Note, Physician History of Present Illness: No new complaints - Current Medication List Current Medications: Active Medications Aspirin (Asa -) 81 mg PO DAILY [facility] Last Admin: 03/02/17 10:33 Dose: 81 mg Clonazepam (Klonopin -) 0.5 mg PO Q12H [facility] Last Admin: 03/02/17 10:33 Dose: 0.5 mg Clopidogrel Bisulfate (Plavix -) 75 mg PO DAILY [facility] Last Admin: 03/02/17 10:33 Dose: Not Given Donepezil HCl (Aricept -) 10 mg PO DAILY [facility] Last Admin: 03/02/17 10:33 Dose: 10 mg Heparin Sodium (Porcine) (Heparin -) 5,000 unit SQ BID [facility] Last Admin: 03/02/17 10:32 Dose: 5,000 unit Caspofungin 50 mg/ Sodium (Chloride) 250 mls @ 250 mls/hr IVPB DAILY [facility] Stop: 03/03/17 12:20 Last Admin: 03/02/17 10:33 Dose: 250 mls/hr Dextrose/Sodium Chloride (D5-1/2ns -) 1,000 mls @ 42 mls/hr IV ASDIR [facility] Last Admin: 03/02/17 00:03 Dose: 42 mls/hr Insulin Aspart (Novolog Vial Sliding Scale -) 1 vial SQ ACHS [facility] PRN Reason: Protocol Last Admin: 03/02/17 16:22 Dose: Not Given Metoprolol Tartrate (Lopressor Injection -) 5 mg IVPUSH Q4H-IV [facility] Last Admin: 03/01/17 22:55 Dose: Not Given Mirtazapine (Remeron -) 15 mg PO HS [facility] Last Admin: 03/01/17 22:54 Dose: 15 mg Multivitamins/Minerals/Vitamin C (Tab-A-Vit -) 1 tab PO DAILY [facility] Last Admin: 03/02/17 10:43 Dose: Not Given Spironolactone (Aldactone -) 25 mg PO DAILY [facility] Last Admin: 03/02/17 10:32 Dose: 25 mg Tamsulosin HCl (Flomax -) 0.4 mg PO 1630 [facility] Last Admin: 03/02/17 17:07 Dose: 0.4 mg - Objective Vital Signs: Vital Signs Temperature 98.8 F 03/02/17 14:19 Pulse Rate 105 H 03/02/17 18:05 Respiratory Rate 18 03/02/17 14:19 Blood Pressure 125/74 03/02/17 14:19 O2 Sat by Pulse Oximetry (%) 97 03/01/17 21:00 Constitutional: Yes: No Distress Neck: Yes: WNL, Supple Cardiovascular: Yes: WNL, Regular Rate and Rhythm Respiratory: Yes: WNL, Regular, CTA Bilaterally Gastrointestinal: Yes: WNL, Normal Bowel Sounds, Soft Labs: CBC, BMP 03/02/17 06:30 03/02/17 06:30 INR, PTT INR 1.33 (0.82-1.09) H 02/24/17 11:30 Problem List - Problems (1) Atrial fibrillation Assessment/Plan: Pt on IV metoprolol Pt is still tachy Cont to monitor rate Pt not on AC due to h/o bleeding Code(s): I48.91 - UNSPECIFIED ATRIAL FIBRILLATION Qualifiers: Qualified Code(s): I48.91 - Unspecified atrial fibrillation (2) Sepsis Assessment/Plan: Cont IV cancidas WBC still elevated but decreasing Funguria/gangrene Pt also w/ gangrene and will need angiogram as per vascular once sepsis controlled Code(s): A41.9 - SEPSIS, UNSPECIFIED ORGANISM Qualifiers: Qualified Code(s): A41.9 - Sepsis, unspecified organism (3) Systolic CHF Assessment/Plan: Acute on chronic systolic CHF Cont spirinolactone monitor electrolytes Code(s): I50.20 - UNSPECIFIED SYSTOLIC (CONGESTIVE) HEART FAILURE (4) ACS (acute coronary syndrome) Assessment/Plan: Cont asa Code(s): I24.9 - ACUTE ISCHEMIC HEART DISEASE, UNSPECIFIED (5) CAD (coronary artery disease) Code(s): I25.10 - ATHSCL HEART DISEASE OF [place] CORONARY ARTERY W/O ANG PCTRS (6) Dementia Code(s): F03.90 - UNSPECIFIED DEMENTIA WITHOUT BEHAVIORAL DISTURBANCE (7) Diabetes Code(s): E11.9 - TYPE 2 DIABETES MELLITUS WITHOUT COMPLICATIONS (8) HTN (hypertension) Code(s): I10 - ESSENTIAL (PRIMARY) HYPERTENSION (9) Normocytic anemia Code(s): D64.9 - ANEMIA, UNSPECIFIED (10) Hyperlipidemia Code(s): E78.5 - HYPERLIPIDEMIA, UNSPECIFIED
--- NOTE | 2017-03-02 21:08 | PN ---
Progress Note, Physician Chief Complaint: Pt is demented; speaks softly, does not follow verbal requests. History of Present Illness: The patient is a 76-year-old male (b. 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 Patient presents for admission at request of Dr. Kothari, vascular, for workup and angiogram. Upon arrival to the ED, the pt. was found to have a heart rate in the 150's. Pt. cannot state if he has any chest pain. Patient has baseline dementia. T - Current Medication List Current Medications: Active Medications Aspirin (Asa -) 81 mg PO DAILY [facility] Last Admin: 03/02/17 10:33 Dose: 81 mg Clonazepam (Klonopin -) 0.5 mg PO Q12H [facility] Last Admin: 03/02/17 10:33 Dose: 0.5 mg Clopidogrel Bisulfate (Plavix -) 75 mg PO DAILY [facility] Last Admin: 03/02/17 10:33 Dose: Not Given Donepezil HCl (Aricept -) 10 mg PO DAILY [facility] Last Admin: 03/02/17 10:33 Dose: 10 mg Heparin Sodium (Porcine) (Heparin -) 5,000 unit SQ BID [facility] Last Admin: 03/02/17 10:32 Dose: 5,000 unit Caspofungin 50 mg/ Sodium (Chloride) 250 mls @ 250 mls/hr IVPB DAILY [facility] Stop: 03/03/17 12:20 Last Admin: 03/02/17 10:33 Dose: 250 mls/hr Dextrose/Sodium Chloride (D5-1/2ns -) 1,000 mls @ 42 mls/hr IV ASDIR [facility] Last Admin: 03/02/17 00:03 Dose: 42 mls/hr Insulin Aspart (Novolog Vial Sliding Scale -) 1 vial SQ ACHS [facility] PRN Reason: Protocol Last Admin: 03/02/17 16:22 Dose: Not Given Metoprolol Tartrate (Lopressor Injection -) 5 mg IVPUSH Q4H-IV [facility] Last Admin: 03/01/17 22:55 Dose: Not Given Mirtazapine (Remeron -) 15 mg PO HS [facility] Last Admin: 03/01/17 22:54 Dose: 15 mg Multivitamins/Minerals/Vitamin C (Tab-A-Vit -) 1 tab PO DAILY [facility] Last Admin: 03/02/17 10:43 Dose: Not Given Spironolactone (Aldactone -) 25 mg PO DAILY [facility] Last Admin: 03/02/17 10:32 Dose: 25 mg Tamsulosin HCl (Flomax -) 0.4 mg PO 1630 [facility] Last Admin: 03/02/17 17:07 Dose: 0.4 mg - Objective Vital Signs: Vital Signs Temperature 98.8 F 03/02/17 14:19 Pulse Rate 105 H 03/02/17 18:05 Respiratory Rate 18 03/02/17 14:19 Blood Pressure 125/74 03/02/17 14:19 O2 Sat by Pulse Oximetry (%) 97 03/01/17 21:00 Constitutional: Yes: Other (periods of seeming distress/agitation) Eyes: Yes: WNL HENT: Yes: WNL Neck: Yes: WNL Cardiovascular: Yes: Pulse Irregular Respiratory: Yes: Regular Gastrointestinal: Yes: Soft Genitourinary: No: Anuria Musculoskeletal: Yes: Muscle Weakness Extremities: Yes: Cold Edema: No Peripheral Pulses WNL: No Peripheral Pulses: Left Doralis Pedis: 1+, Right Dorsalis Pedis: 1+ Integumentary: Yes: Other Wound/Incision: Yes: Other (left LEopen wound; bilateral toes with gangrene) Neurological: Yes: Weakness Psychiatric: Yes: Other (dementia) Labs: CBC, BMP 03/02/17 06:30 03/02/17 06:30 INR, PTT INR 1.33 (0.82-1.09) H 02/24/17 11:30 Problem List - Problems (1) Atrial fibrillation Assessment/Plan: On metoprolol; HR better controlled. On ASA and clopidogrel (AF; NSTEMI). Code(s): I48.91 - UNSPECIFIED ATRIAL FIBRILLATION Qualifiers: Qualified Code(s): I48.91 - Unspecified atrial fibrillation (2) Open wound of left foot Assessment/Plan: gangrene; open wound f/u with vascular specialist. Code(s): S91.302A - UNSPECIFIED OPEN WOUND, LEFT FOOT, INITIAL ENCOUNTER Qualifiers: Qualified Code(s): S91.302D - Unspecified open wound, left foot, subsequent encounter (3) Sepsis Code(s): A41.9 - SEPSIS, UNSPECIFIED ORGANISM Qualifiers: Qualified Code(s): A41.9 - Sepsis, unspecified organism (4) Tachycardia Assessment/Plan: AF with periods of RVR. On metoprolol. Maintain hydration. Code(s): R00.0 - TACHYCARDIA, UNSPECIFIED (5) ACS (acute coronary syndrome) Assessment/Plan: s/p NSTEMI 12/28. Pt's family opted at that time for conservative management (no coronary angiogram). Continue medications for systolic CHF Code(s): I24.9 - ACUTE ISCHEMIC HEART DISEASE, UNSPECIFIED (6) CAD (coronary artery disease) Code(s): I25.10 - ATHSCL HEART DISEASE OF [place] CORONARY ARTERY W/O ANG PCTRS (7) Dementia Assessment/Plan: Profound dementia. Pt's daughters have, in the past, discussed options for care of their father, including hospice. Code(s): F03.90 - UNSPECIFIED DEMENTIA WITHOUT BEHAVIORAL DISTURBANCE (8) Hyperlipidemia Code(s): E78.5 - HYPERLIPIDEMIA, UNSPECIFIED (9) Infection of left foot Code(s): L08.9 - LOCAL INFECTION OF THE SKIN AND SUBCUTANEOUS TISSUE, UNSP (10) NSTEMI (non-ST elevated myocardial infarction) Code(s): I21.4 - NON-ST ELEVATION (NSTEMI) MYOCARDIAL INFARCTION (11) Diabetes Code(s): E11.9 - TYPE 2 DIABETES MELLITUS WITHOUT COMPLICATIONS (12) Normocytic anemia Code(s): D64.9 - ANEMIA, UNSPECIFIED (13) Systolic CHF Code(s): I50.20 - UNSPECIFIED SYSTOLIC (CONGESTIVE) HEART FAILURE
--- NOTE | 2017-03-02 21:14 | PN ---
Progress Note, Physician Chief Complaint: Pt is demented; somnolent. History of Present Illness: The patient is a 76-year-old male (b. 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 Patient presents for admission at request of Dr. Kothari, vascular, for workup and angiogram. Upon arrival to the ED, the pt. was found to have a heart rate in the 150's. Pt. cannot state if he has any chest pain. Patient has baseline advanced dementia. T - Current Medication List Current Medications: Active Medications Aspirin (Asa -) 81 mg PO DAILY [facility] Last Admin: 03/02/17 10:33 Dose: 81 mg Clonazepam (Klonopin -) 0.5 mg PO Q12H [facility] Last Admin: 03/02/17 10:33 Dose: 0.5 mg Clopidogrel Bisulfate (Plavix -) 75 mg PO DAILY [facility] Last Admin: 03/02/17 10:33 Dose: Not Given Donepezil HCl (Aricept -) 10 mg PO DAILY [facility] Last Admin: 03/02/17 10:33 Dose: 10 mg Heparin Sodium (Porcine) (Heparin -) 5,000 unit SQ BID [facility] Last Admin: 03/02/17 10:32 Dose: 5,000 unit Caspofungin 50 mg/ Sodium (Chloride) 250 mls @ 250 mls/hr IVPB DAILY [facility] Stop: 03/03/17 12:20 Last Admin: 03/02/17 10:33 Dose: 250 mls/hr Dextrose/Sodium Chloride (D5-1/2ns -) 1,000 mls @ 42 mls/hr IV ASDIR [facility] Last Admin: 03/02/17 00:03 Dose: 42 mls/hr Insulin Aspart (Novolog Vial Sliding Scale -) 1 vial SQ ACHS [facility] PRN Reason: Protocol Last Admin: 03/02/17 16:22 Dose: Not Given Metoprolol Tartrate (Lopressor Injection -) 5 mg IVPUSH Q4H-IV [facility] Last Admin: 03/01/17 22:55 Dose: Not Given Mirtazapine (Remeron -) 15 mg PO HS [facility] Last Admin: 03/01/17 22:54 Dose: 15 mg Multivitamins/Minerals/Vitamin C (Tab-A-Vit -) 1 tab PO DAILY [facility] Last Admin: 03/02/17 10:43 Dose: Not Given Spironolactone (Aldactone -) 25 mg PO DAILY [facility] Last Admin: 03/02/17 10:32 Dose: 25 mg Tamsulosin HCl (Flomax -) 0.4 mg PO 1630 [facility] Last Admin: 03/02/17 17:07 Dose: 0.4 mg - Objective Vital Signs: Vital Signs Temperature 98.8 F 03/02/17 14:19 Pulse Rate 105 H 03/02/17 18:05 Respiratory Rate 18 03/02/17 14:19 Blood Pressure 125/74 03/02/17 14:19 O2 Sat by Pulse Oximetry (%) 97 03/01/17 21:00 Constitutional: Yes: Other (periods of lethargy) Eyes: Yes: WNL HENT: Yes: WNL Neck: Yes: WNL Cardiovascular: Yes: Pulse Irregular Respiratory: Yes: Regular Gastrointestinal: Yes: Soft Genitourinary: Yes: Incontinence. No: Anuria Musculoskeletal: Yes: Muscle Weakness Extremities: Yes: Cold, Other (gangrenous toes; left LE wound) Edema: No Peripheral Pulses WNL: No Peripheral Pulses: Left Doralis Pedis: 1+, Right Dorsalis Pedis: 1+ Wound/Incision: Yes: Open to air Neurological: Yes: Weakness Psychiatric: Yes: Other Labs: CBC, BMP 03/02/17 06:30 03/02/17 06:30 INR, PTT INR 1.33 (0.82-1.09) H 02/24/17 11:30 Problem List - Problems (1) Atrial fibrillation Assessment/Plan: On metoprolol; HR better controlled; however, it has been difficult to give him PO meds. Recommend give IV metoprolol around the clock until pt is more compliant to PO regime. On ASA and clopidogrel (AF; NSTEMI). Code(s): I48.91 - UNSPECIFIED ATRIAL FIBRILLATION Qualifiers: Qualified Code(s): I48.91 - Unspecified atrial fibrillation (2) Open wound of left foot Code(s): S91.302A - UNSPECIFIED OPEN WOUND, LEFT FOOT, INITIAL ENCOUNTER Qualifiers: Qualified Code(s): S91.302D - Unspecified open wound, left foot, subsequent encounter (3) Sepsis Code(s): A41.9 - SEPSIS, UNSPECIFIED ORGANISM Qualifiers: Qualified Code(s): A41.9 - Sepsis, unspecified organism (4) Tachycardia Code(s): R00.0 - TACHYCARDIA, UNSPECIFIED (5) ACS (acute coronary syndrome) Code(s): I24.9 - ACUTE ISCHEMIC HEART DISEASE, UNSPECIFIED (6) CAD (coronary artery disease) Code(s): I25.10 - ATHSCL HEART DISEASE OF [place] CORONARY ARTERY W/O ANG PCTRS (7) Dementia Code(s): F03.90 - UNSPECIFIED DEMENTIA WITHOUT BEHAVIORAL DISTURBANCE (8) Hyperlipidemia Code(s): E78.5 - HYPERLIPIDEMIA, UNSPECIFIED (9) Infection of left foot Code(s): L08.9 - LOCAL INFECTION OF THE SKIN AND SUBCUTANEOUS TISSUE, UNSP (10) NSTEMI (non-ST elevated myocardial infarction) Code(s): I21.4 - NON-ST ELEVATION (NSTEMI) MYOCARDIAL INFARCTION (11) Diabetes Code(s): E11.9 - TYPE 2 DIABETES MELLITUS WITHOUT COMPLICATIONS (12) Normocytic anemia Code(s): D64.9 - ANEMIA, UNSPECIFIED (13) Systolic CHF Code(s): I50.20 - UNSPECIFIED SYSTOLIC (CONGESTIVE) HEART FAILURE
--- NOTE | 2017-03-02 21:32 | PN ---
Progress Note, Physician Chief Complaint: Pt speaks confusedly. History of Present Illness: The patient is a 76-year-old male (b. [place]), with past medical history of Alzheimer's, severe systolic LV dysfunction, s/p NSTEMI, PAD, HLD, NIDDM, and HTN, who presents to the emergency department today with dry gangrene of his right foot. Patient presents for admission at request of Dr. Kothari, vascular, for workup and angiogram. Upon arrival to the ED, the pt. was found to have a heart rate in the 150's. Pt. cannot state if he has any chest pain. Patient has baseline dementia. T - Current Medication List Current Medications: Active Medications Aspirin (Asa -) 81 mg PO DAILY [facility] Last Admin: 03/02/17 10:33 Dose: 81 mg Clonazepam (Klonopin -) 0.5 mg PO Q12H [facility] Last Admin: 03/02/17 10:33 Dose: 0.5 mg Clopidogrel Bisulfate (Plavix -) 75 mg PO DAILY [facility] Last Admin: 03/02/17 10:33 Dose: Not Given Donepezil HCl (Aricept -) 10 mg PO DAILY [facility] Last Admin: 03/02/17 10:33 Dose: 10 mg Heparin Sodium (Porcine) (Heparin -) 5,000 unit SQ BID [facility] Last Admin: 03/02/17 10:32 Dose: 5,000 unit Caspofungin 50 mg/ Sodium (Chloride) 250 mls @ 250 mls/hr IVPB DAILY [facility] Stop: 03/03/17 12:20 Last Admin: 03/02/17 10:33 Dose: 250 mls/hr Dextrose/Sodium Chloride (D5-1/2ns -) 1,000 mls @ 42 mls/hr IV ASDIR [facility] Last Admin: 03/02/17 00:03 Dose: 42 mls/hr Insulin Aspart (Novolog Vial Sliding Scale -) 1 vial SQ ACHS [facility] PRN Reason: Protocol Last Admin: 03/02/17 16:22 Dose: Not Given Metoprolol Tartrate (Lopressor Injection -) 5 mg IVPUSH Q4H-IV [facility] Last Admin: 03/01/17 22:55 Dose: Not Given Mirtazapine (Remeron -) 15 mg PO HS [facility] Last Admin: 03/01/17 22:54 Dose: 15 mg Multivitamins/Minerals/Vitamin C (Tab-A-Vit -) 1 tab PO DAILY [facility] Last Admin: 03/02/17 10:43 Dose: Not Given Spironolactone (Aldactone -) 25 mg PO DAILY [facility] Last Admin: 03/02/17 10:32 Dose: 25 mg Tamsulosin HCl (Flomax -) 0.4 mg PO 1630 [facility] Last Admin: 03/02/17 17:07 Dose: 0.4 mg - Objective Vital Signs: Vital Signs Temperature 98.8 F 03/02/17 14:19 Pulse Rate 105 H 03/02/17 18:05 Respiratory Rate 18 03/02/17 14:19 Blood Pressure 125/74 03/02/17 14:19 O2 Sat by Pulse Oximetry (%) 97 03/01/17 21:00 Constitutional: Yes: Thin Eyes: Yes: WNL Cardiovascular: Yes: Pulse Irregular Respiratory: Yes: Regular Genitourinary: No: Anuria Musculoskeletal: Yes: Muscle Weakness Edema: No Peripheral Pulses WNL: No Peripheral Pulses: Left Doralis Pedis: 1+, Right Dorsalis Pedis: 1+ Integumentary: Yes: Venous Stasis Changes Wound/Incision: Yes: Open to air Neurological: Yes: Weakness Labs: CBC, BMP 03/02/17 06:30 03/02/17 06:30 INR, PTT INR 1.33 (0.82-1.09) H 02/24/17 11:30 Problem List - Problems (1) Atrial fibrillation Assessment/Plan: Pt with AF; HR better controlled. On metoprolol; however, it has been difficult to give him PO meds. Now on metoprolol tartrate 5 mg IVP q 4 hrs Start digoxin maintenance dose 0.125 mg daily IVP; keep level 0.5-1.0. Code(s): I48.91 - UNSPECIFIED ATRIAL FIBRILLATION Qualifiers: Qualified Code(s): I48.91 - Unspecified atrial fibrillation (2) Open wound of left foot Assessment/Plan: gangrene; open wound f/u with vascular specialist. Code(s): S91.302A - UNSPECIFIED OPEN WOUND, LEFT FOOT, INITIAL ENCOUNTER Qualifiers: Qualified Code(s): S91.302D - Unspecified open wound, left foot, subsequent encounter (3) Sepsis Code(s): A41.9 - SEPSIS, UNSPECIFIED ORGANISM Qualifiers: Qualified Code(s): A41.9 - Sepsis, unspecified organism (4) Tachycardia Assessment/Plan: AF with periods of RVR. On metoprolol. Digoxin if necessary. Maintain hydration. Code(s): R00.0 - TACHYCARDIA, UNSPECIFIED (5) ACS (acute coronary syndrome) Assessment/Plan: s/p NSTEMI 12/28. Pt's family opted at that time for conservative management (no coronary angiogram). Continue medications for systolic CHF Code(s): I24.9 - ACUTE ISCHEMIC HEART DISEASE, UNSPECIFIED (6) CAD (coronary artery disease) Code(s): I25.10 - ATHSCL HEART DISEASE OF [place] CORONARY ARTERY W/O ANG PCTRS (7) Dementia Assessment/Plan: Profound dementia. Pt's daughters have, in the past, discussed options for care of their father, including hospice. Code(s): F03.90 - UNSPECIFIED DEMENTIA WITHOUT BEHAVIORAL DISTURBANCE (8) Hyperlipidemia Code(s): E78.5 - HYPERLIPIDEMIA, UNSPECIFIED (9) Infection of left foot Code(s): L08.9 - LOCAL INFECTION OF THE SKIN AND SUBCUTANEOUS TISSUE, UNSP (10) NSTEMI (non-ST elevated myocardial infarction) Code(s): I21.4 - NON-ST ELEVATION (NSTEMI) MYOCARDIAL INFARCTION (11) Diabetes Code(s): E11.9 - TYPE 2 DIABETES MELLITUS WITHOUT COMPLICATIONS (12) Normocytic anemia Code(s): D64.9 - ANEMIA, UNSPECIFIED (13) Systolic CHF Code(s): I50.20 - UNSPECIFIED SYSTOLIC (CONGESTIVE) HEART FAILURE
--- NOTE | 2017-03-02 21:33 | PN ---
Progress Note, Physician Chief Complaint: Pt lying in bed; shows little response. Noted to be tachycardic. History of Present Illness: The patient is a 76-year-old male (b. [facility] [place]), with past medical history of Alzheimer's, severe systolic LV dysfunction, s/p NSTEMI, PAD, HLD, NIDDM, and HTN, who presents to the emergency department today with dry gangrene of his right foot. Patient presents for admission at request of Dr. Kothari, vascular, for workup and angiogram. Upon arrival to the ED, the pt. was found to have a heart rate in the 150's. Pt. cannot state if he has any chest pain. Patient has baseline dementia. T - Current Medication List Current Medications: Active Medications Aspirin (Asa -) 81 mg PO DAILY [facility] Last Admin: 03/02/17 10:33 Dose: 81 mg Clonazepam (Klonopin -) 0.5 mg PO Q12H [facility] Last Admin: 03/02/17 10:33 Dose: 0.5 mg Clopidogrel Bisulfate (Plavix -) 75 mg PO DAILY [facility] Last Admin: 03/02/17 10:33 Dose: Not Given Donepezil HCl (Aricept -) 10 mg PO DAILY [facility] Last Admin: 03/02/17 10:33 Dose: 10 mg Heparin Sodium (Porcine) (Heparin -) 5,000 unit SQ BID [facility] Last Admin: 03/02/17 10:32 Dose: 5,000 unit Caspofungin 50 mg/ Sodium (Chloride) 250 mls @ 250 mls/hr IVPB DAILY [facility] Stop: 03/03/17 12:20 Last Admin: 03/02/17 10:33 Dose: 250 mls/hr Dextrose/Sodium Chloride (D5-1/2ns -) 1,000 mls @ 42 mls/hr IV ASDIR [facility] Last Admin: 03/02/17 00:03 Dose: 42 mls/hr Insulin Aspart (Novolog Vial Sliding Scale -) 1 vial SQ ACHS [facility] PRN Reason: Protocol Last Admin: 03/02/17 16:22 Dose: Not Given Metoprolol Tartrate (Lopressor Injection -) 5 mg IVPUSH Q4H-IV [facility] Last Admin: 03/01/17 22:55 Dose: Not Given Mirtazapine (Remeron -) 15 mg PO HS [facility] Last Admin: 03/01/17 22:54 Dose: 15 mg Multivitamins/Minerals/Vitamin C (Tab-A-Vit -) 1 tab PO DAILY [facility] Last Admin: 03/02/17 10:43 Dose: Not Given Spironolactone (Aldactone -) 25 mg PO DAILY [facility] Last Admin: 03/02/17 10:32 Dose: 25 mg Tamsulosin HCl (Flomax -) 0.4 mg PO 1630 [facility] Last Admin: 03/02/17 17:07 Dose: 0.4 mg - Objective Vital Signs: Vital Signs Temperature 98.8 F 03/02/17 14:19 Pulse Rate 105 H 03/02/17 18:05 Respiratory Rate 18 03/02/17 14:19 Blood Pressure 125/74 03/02/17 14:19 O2 Sat by Pulse Oximetry (%) 97 03/01/17 21:00 Constitutional: Yes: Calm Eyes: Yes: WNL HENT: Yes: WNL Neck: Yes: WNL Cardiovascular: Yes: Tachycardia, Pulse Irregular Respiratory: Yes: Regular Gastrointestinal: Yes: Soft Genitourinary: No: Anuria Musculoskeletal: Yes: Muscle Weakness Extremities: Yes: Cold Edema: No Peripheral Pulses WNL: No Peripheral Pulses: Left Doralis Pedis: 1+, Right Dorsalis Pedis: 1+ Wound/Incision: Yes: Open to air Neurological: Yes: Weakness Psychiatric: Yes: Other Labs: CBC, BMP 03/02/17 06:30 03/02/17 06:30 INR, PTT INR 1.33 (0.82-1.09) H 02/24/17 11:30 Problem List - Problems (1) Atrial fibrillation Assessment/Plan: Pt with AF; HR rapid. On metoprolol; however, it has been difficult to give him PO meds. Recommend starting IV metoprolol around the clock until pt is more compliant to PO regime. Start digoxin IV loading, then maintenance of 0.125 mg daily; keep level 0.5- 1.0. Code(s): I48.91 - UNSPECIFIED ATRIAL FIBRILLATION Qualifiers: Qualified Code(s): I48.91 - Unspecified atrial fibrillation (2) Open wound of left foot Assessment/Plan: gangrene; open wound f/u with vascular specialist. Code(s): S91.302A - UNSPECIFIED OPEN WOUND, LEFT FOOT, INITIAL ENCOUNTER Qualifiers: Qualified Code(s): S91.302D - Unspecified open wound, left foot, subsequent encounter (3) Sepsis Code(s): A41.9 - SEPSIS, UNSPECIFIED ORGANISM Qualifiers: Qualified Code(s): A41.9 - Sepsis, unspecified organism (4) Tachycardia Code(s): R00.0 - TACHYCARDIA, UNSPECIFIED (5) ACS (acute coronary syndrome) Code(s): I24.9 - ACUTE ISCHEMIC HEART DISEASE, UNSPECIFIED (6) CAD (coronary artery disease) Code(s): I25.10 - ATHSCL HEART DISEASE OF [place] CORONARY ARTERY W/O ANG PCTRS (7) Dementia Code(s): F03.90 - UNSPECIFIED DEMENTIA WITHOUT BEHAVIORAL DISTURBANCE (8) Hyperlipidemia Code(s): E78.5 - HYPERLIPIDEMIA, UNSPECIFIED (9) Infection of left foot Code(s): L08.9 - LOCAL INFECTION OF THE SKIN AND SUBCUTANEOUS TISSUE, UNSP (10) NSTEMI (non-ST elevated myocardial infarction) Code(s): I21.4 - NON-ST ELEVATION (NSTEMI) MYOCARDIAL INFARCTION (11) Diabetes Code(s): E11.9 - TYPE 2 DIABETES MELLITUS WITHOUT COMPLICATIONS (12) Normocytic anemia Code(s): D64.9 - ANEMIA, UNSPECIFIED (13) Systolic CHF Code(s): I50.20 - UNSPECIFIED SYSTOLIC (CONGESTIVE) HEART FAILURE
[2017-03-02] MEDS: MIRTAZAPINE 15 MG TABLET (FP) PO SCH (22:19)
[2017-03-03] MEDS: DEXTROSE 5%-0.45% SALINE 1,000 ML IV SCH (00:36)
[2017-03-03] MEDS: INSULIN SLIDING SCALE (NOVOLOG) 1 VIAL SQ SCH ×4 (06:47→21:46)
[2017-03-03] MEDS: SPIRONOLACTONE 25 MG TABLET (FP) PO SCH (09:43)
[2017-03-03] MEDS: ASPIRIN 81 MG CHEWABLE TABLETS PO SCH (09:43)
[2017-03-03] MEDS: MULTIVITAMINS (DAILY MVI) TABLET (FP) PO SCH (09:43)
[2017-03-03] MEDS: CLOPIDOGREL BISULFATE 75 MG TABLET (FP) PO SCH (09:43)
[2017-03-03] MEDS: DONEPEZIL HCL 10 MG TABLET (FP) PO SCH (09:43)
[2017-03-03] MEDS: HEPARIN NA (PORCINE) 5,000 UNITS/ML 1ML VIAL SQ SCH ×2 (09:46→21:57)
[2017-03-03] MEDS: CASPOFUNGIN ACETATE 50 MG in SODIUM CHLORIDE 250 ML IVPB SCH (09:47)
[2017-03-03] MEDS: clonazePAM 0.5 MG TABLET PO SCH ×2 (09:47→21:56)
--- NOTE | 2017-03-03 10:16 | PN ---
Progress Note (short form) - Note Progress Note: 77 y/o M w/ severe peripheral vascular disease. Hx of urinary retention w/ urosepsis. [place] was passed, large amount of urine drained. Pt presently afebrile, wc 12,000, bun/cr 12/.9 respectively. [place] is patent, urine clear. Suggest cysto when pt is medically cleared to r/o bladder pathology.
[2017-03-03] MEDS ORDERED: DIGOXIN 0.5 MG/2 ML AMPUL IVPUSH ONE (10:44)
[2017-03-03] MEDS: TAMSULOSIN HCL 0.4 MG CAP.ER.24H (FP) PO SCH (16:30)
--- NOTE | 2017-03-03 19:14 | PN ---
Progress Note, Physician History of Present Illness: The patient is a 76-year-old male (b. [facility] [place]), with past medical history of Alzheimer's, severe systolic LV dysfunction, s/p NSTEMI, PAD, HLD, NIDDM, and HTN, who presents to the emergency department today with dry gangrene of his right foot. Patient presents for admission at request of Dr. Kothari, vascular, for workup and angiogram. Upon arrival to the ED, the pt. was found to have a heart rate in the 150's. Pt. cannot state if he has any chest pain. Patient has baseline dementia. T - Current Medication List Current Medications: Active Medications Aspirin (Asa -) 81 mg PO DAILY [facility] Last Admin: 03/03/17 09:43 Dose: 81 mg Clonazepam (Klonopin -) 0.5 mg PO Q12H [facility] Last Admin: 03/03/17 09:47 Dose: 0.5 mg Clopidogrel Bisulfate (Plavix -) 75 mg PO DAILY [facility] Last Admin: 03/03/17 09:43 Dose: 75 mg Donepezil HCl (Aricept -) 10 mg PO DAILY [facility] Last Admin: 03/03/17 09:43 Dose: 10 mg Heparin Sodium (Porcine) (Heparin -) 5,000 unit SQ BID [facility] Last Admin: 03/03/17 09:46 Dose: 5,000 unit Dextrose/Sodium Chloride (D5-1/2ns -) 1,000 mls @ 42 mls/hr IV ASDIR [facility] Last Admin: 03/03/17 00:36 Dose: 42 mls/hr Insulin Aspart (Novolog Vial Sliding Scale -) 1 vial SQ ACHS [facility] PRN Reason: Protocol Last Admin: 03/03/17 14:55 Dose: Not Given Metoprolol Tartrate (Lopressor Injection -) 5 mg IVPUSH Q4H-IV [facility] Last Admin: 03/01/17 22:55 Dose: Not Given Mirtazapine (Remeron -) 15 mg PO HS [facility] Last Admin: 03/02/17 22:19 Dose: Not Given Multivitamins/Minerals/Vitamin C (Tab-A-Vit -) 1 tab PO DAILY [facility] Last Admin: 03/03/17 09:43 Dose: 1 tab Spironolactone (Aldactone -) 25 mg PO DAILY [facility] Last Admin: 03/03/17 09:43 Dose: 25 mg Tamsulosin HCl (Flomax -) 0.4 mg PO 1630 [facility] Last Admin: 03/03/17 16:30 Dose: Not Given - Objective Vital Signs: Vital Signs Temperature 98.3 F 03/03/17 18:26 Pulse Rate 116 H 03/03/17 18:26 Respiratory Rate 20 03/03/17 18:26 Blood Pressure 108/73 03/03/17 18:26 O2 Sat by Pulse Oximetry (%) 96 03/03/17 09:00 Eyes: Yes: WNL, Conjunctiva Clear, EOM Intact HENT: Yes: WNL, Atraumatic, Normocephalic Neck: Yes: WNL, Supple, Trachea Midline Cardiovascular: Yes: WNL, Regular Rate and Rhythm Respiratory: Yes: WNL, Regular, CTA Bilaterally Gastrointestinal: Yes: WNL, Normal Bowel Sounds Genitourinary: Yes: WNL Musculoskeletal: Yes: WNL Edema: No Integumentary: Yes: WNL Neurological: Yes: WNL, Alert, Oriented ...Motor Strength: WNL Psychiatric: Yes: WNL Labs: CBC, BMP 03/02/17 06:30 03/02/17 06:30 INR, PTT INR 1.33 (0.82-1.09) H 02/24/17 11:30 Assessment/Plan (1) Atrial fibrillation Assessment/Plan: Pt with AF; HR better controlled. On metoprolol; however, it has been difficult to give him PO meds. Now on metoprolol tartrate 5 mg IVP q 4 hrs Start digoxin maintenance dose 0.125 mg daily IVP; keep level 0.5-1.0. Code(s): I48.91 - UNSPECIFIED ATRIAL FIBRILLATION Qualifiers: Qualified Code(s): I48.91 - Unspecified atrial fibrillation (2) Open wound of left foot Assessment/Plan: gangrene; open wound f/u with vascular specialist. Code(s): S91.302A - UNSPECIFIED OPEN WOUND, LEFT FOOT, INITIAL ENCOUNTER Qualifiers: Qualified Code(s): S91.302D - Unspecified open wound, left foot, subsequent encounter (3) Sepsis Code(s): A41.9 - SEPSIS, UNSPECIFIED ORGANISM Qualifiers: Qualified Code(s): A41.9 - Sepsis, unspecified organism (4) Tachycardia Assessment/Plan: AF with periods of RVR. On metoprolol. Digoxin if necessary. Maintain hydration. Code(s): R00.0 - TACHYCARDIA, UNSPECIFIED (5) ACS (acute coronary syndrome) Assessment/Plan: s/p NSTEMI 12/28. Pt's family opted at that time for conservative management (no coronary angiogram). Continue medications for systolic CHF Code(s): I24.9 - ACUTE ISCHEMIC HEART DISEASE, UNSPECIFIED (6) CAD (coronary artery disease) Code(s): I25.10 - ATHSCL HEART DISEASE OF [place] CORONARY ARTERY W/O ANG PCTRS (7) Dementia Assessment/Plan: Profound dementia. Pt's daughters have, in the past, discussed options for care of their father, including hospice. Code(s): F03.90 - UNSPECIFIED DEMENTIA WITHOUT BEHAVIORAL DISTURBANCE (8) Hyperlipidemia Code(s): E78.5 - HYPERLIPIDEMIA, UNSPECIFIED (9) Infection of left foot Code(s): L08.9 - LOCAL INFECTION OF THE SKIN AND SUBCUTANEOUS TISSUE, UNSP (10) NSTEMI (non-ST elevated myocardial infarction) Code(s): I21.4 - NON-ST ELEVATION (NSTEMI) MYOCARDIAL INFARCTION (11) Diabetes Code(s): E11.9 - TYPE 2 DIABETES MELLITUS WITHOUT COMPLICATIONS (12) Normocytic anemia Code(s): D64.9 - ANEMIA, UNSPECIFIED (13) Systolic CHF Code(s): I50.20 - UNSPECIFIED SYSTOLIC (CONGESTIVE) HEART FAILURE
--- NOTE | 2017-03-03 20:31 | PN ---
Progress Note (short form) - Note Progress Note: [facility] Surgery Pt needs RLE angiogram for gangrene. WBC coming down. Please medically clear for angiogram. Will book once cleared. Devan Kothari DO
[2017-03-03] MEDS ORDERED: clonazePAM 0.5 MG TABLET ONE (21:56)
[2017-03-03] MEDS: MIRTAZAPINE 15 MG TABLET (FP) PO SCH (21:57)
--- NOTE | 2017-03-03 22:19 | PN ---
Progress Note, Physician History of Present Illness: No new complaints - Current Medication List Current Medications: Active Medications Aspirin (Asa -) 81 mg PO DAILY [facility] Last Admin: 03/03/17 09:43 Dose: 81 mg Clopidogrel Bisulfate (Plavix -) 75 mg PO DAILY [facility] Last Admin: 03/03/17 09:43 Dose: 75 mg Donepezil HCl (Aricept -) 10 mg PO DAILY [facility] Last Admin: 03/03/17 09:43 Dose: 10 mg Heparin Sodium (Porcine) (Heparin -) 5,000 unit SQ BID [facility] Last Admin: 03/03/17 21:57 Dose: 5,000 unit Dextrose/Sodium Chloride (D5-1/2ns -) 1,000 mls @ 42 mls/hr IV ASDIR [facility] Last Admin: 03/03/17 00:36 Dose: 42 mls/hr Insulin Aspart (Novolog Vial Sliding Scale -) 1 vial SQ ACHS [facility] PRN Reason: Protocol Last Admin: 03/03/17 21:46 Dose: Not Given Metoprolol Tartrate (Lopressor Injection -) 5 mg IVPUSH Q4H-IV [facility] Last Admin: 03/01/17 22:55 Dose: Not Given Mirtazapine (Remeron -) 15 mg PO HS [facility] Last Admin: 03/03/17 21:57 Dose: 15 mg Multivitamins/Minerals/Vitamin C (Tab-A-Vit -) 1 tab PO DAILY [facility] Last Admin: 03/03/17 09:43 Dose: 1 tab Spironolactone (Aldactone -) 25 mg PO DAILY [facility] Last Admin: 03/03/17 09:43 Dose: 25 mg Tamsulosin HCl (Flomax -) 0.4 mg PO 1630 [facility] Last Admin: 03/03/17 16:30 Dose: Not Given - Objective Vital Signs: Vital Signs Temperature 98.3 F 03/03/17 18:26 Pulse Rate 116 H 03/03/17 18:26 Respiratory Rate 20 03/03/17 18:26 Blood Pressure 108/73 03/03/17 18:26 O2 Sat by Pulse Oximetry (%) 96 03/03/17 09:00 Neck: Yes: WNL, Supple Cardiovascular: Yes: Tachycardia Respiratory: Yes: WNL, Regular, CTA Bilaterally Gastrointestinal: Yes: WNL, Normal Bowel Sounds, Soft Labs: CBC, BMP 03/02/17 06:30 03/02/17 06:30 INR, PTT INR 1.33 (0.82-1.09) H 02/24/17 11:30 Problem List - Problems (1) Atrial fibrillation Assessment/Plan: Pt on IV metoprolol and dig was added Pt is still tachy Cont to monitor rate Pt not on AC due to h/o bleeding Code(s): I48.91 - UNSPECIFIED ATRIAL FIBRILLATION Qualifiers: Qualified Code(s): I48.91 - Unspecified atrial fibrillation (2) Sepsis Assessment/Plan: IV cancidas was dc'ed However WBC still elevated but decreasing Will repeat wbc in am and reconsult ID Funguria/gangrene Pt also w/ gangrene and will need angiogram once cleared by cardio Code(s): A41.9 - SEPSIS, UNSPECIFIED ORGANISM Qualifiers: Qualified Code(s): A41.9 - Sepsis, unspecified organism (3) Systolic CHF Assessment/Plan: Acute on chronic systolic CHF Cont spirinolactone monitor electrolytes Code(s): I50.20 - UNSPECIFIED SYSTOLIC (CONGESTIVE) HEART FAILURE (4) ACS (acute coronary syndrome) Code(s): I24.9 - ACUTE ISCHEMIC HEART DISEASE, UNSPECIFIED (5) CAD (coronary artery disease) Code(s): I25.10 - ATHSCL HEART DISEASE OF [place] CORONARY ARTERY W/O ANG PCTRS (6) Dementia Code(s): F03.90 - UNSPECIFIED DEMENTIA WITHOUT BEHAVIORAL DISTURBANCE (7) Diabetes Code(s): E11.9 - TYPE 2 DIABETES MELLITUS WITHOUT COMPLICATIONS (8) HTN (hypertension) Code(s): I10 - ESSENTIAL (PRIMARY) HYPERTENSION (9) Normocytic anemia Code(s): D64.9 - ANEMIA, UNSPECIFIED (10) Hyperlipidemia Code(s): E78.5 - HYPERLIPIDEMIA, UNSPECIFIED
[2017-03-04] MEDS: DEXTROSE 5%-0.45% SALINE 1,000 ML IV SCH (02:41)
[2017-03-04] MEDS ORDERED: INSULIN (NOVOLOG) ASPART 100 UNITS/ML 10ML VIAL ONE ×2 (06:25→16:36)
[2017-03-04] MEDS: INSULIN SLIDING SCALE (NOVOLOG) 1 VIAL SQ SCH ×4 (06:27→21:50)
[2017-03-04 07:47] LABS: BASOPHIL 0.3 % (0-2.0); EOSINOPHIL 0.7 % (0-4.5); MCH 26.1 pg (25.7-33.7); MCHC 31.3 g/dl (32.0-35.9); MEAN CELL VOLUME 83.5 fl (80-96); MEAN PLT VOLUME 8.4 fl (7.5-11.1); PLATELET COUNT 446 K/MM3 (134-434); RDW 20.4 % (11.9-15.9); WHITE BLOOD COUNT 12.9 K/mm3 (4.0-10.0)
[2017-03-04 08:13] LABS: ALBUMIN 1.8 g/dl (3.4-5.0); ALK PHOS 68 U/L (45-117); ANION GAP 7 (8-16); BILIRUBIN,TOTAL 0.5 mg/dL (0.2-1.0); CALCIUM 8.4 mg/dL (8.5-10.1); CO2 31 mmol/L (21-32); CREATININE 0.6 mg/dL (0.7-1.3); GLUCOSE,RANDOM 164 mg/dL (74-106); SGOT/AST 7 U/L (15-37); SGPT/ALT 9 U/L (12-78); TOT PROT 6.2 g/dl (6.4-8.2)
[2017-03-04] MEDS: DONEPEZIL HCL 10 MG TABLET (FP) PO SCH (11:40)
[2017-03-04] MEDS: ASPIRIN 81 MG CHEWABLE TABLETS PO SCH (11:40)
[2017-03-04] MEDS: SPIRONOLACTONE 25 MG TABLET (FP) PO SCH (11:40)
[2017-03-04] MEDS: CLOPIDOGREL BISULFATE 75 MG TABLET (FP) PO SCH (11:40)
[2017-03-04] MEDS: clonazePAM 0.5 MG TABLET PO SCH ×2 (11:41→22:05)
[2017-03-04] MEDS: MULTIVITAMINS (DAILY MVI) TABLET (FP) PO SCH (11:41)
[2017-03-04] MEDS ORDERED: HEPARIN NA (PORCINE) 5,000 UNITS/ML 1ML VIAL ONE (11:43)
[2017-03-04] MEDS: HEPARIN NA (PORCINE) 5,000 UNITS/ML 1ML VIAL SQ SCH ×2 (11:50→22:04)
[2017-03-04] MEDS: TAMSULOSIN HCL 0.4 MG CAP.ER.24H (FP) PO SCH (16:31)
[2017-03-04] MEDS ORDERED: METOPROLOL TARTRATE 5 MG/5 ML VIAL ONE (21:24)
[2017-03-04] MEDS ORDERED: METOPROLOL TARTRATE 5 MG/5 ML VIAL IVPUSH ONE (21:30)
[2017-03-04] MEDS: MIRTAZAPINE 15 MG TABLET (FP) PO SCH (22:05)
--- NOTE | 2017-03-04 22:06 | PN ---
Progress Note, Physician History of Present Illness: Pt remains tachy Poor appetite and decreased po intake - Current Medication List Current Medications: Active Medications Aspirin (Asa -) 81 mg PO DAILY [facility] Last Admin: 03/04/17 11:40 Dose: 81 mg Clonazepam (Klonopin -) 0.5 mg PO Q12H [facility] Last Admin: 03/04/17 11:41 Dose: 0.5 mg Clopidogrel Bisulfate (Plavix -) 75 mg PO DAILY [facility] Last Admin: 03/04/17 11:40 Dose: 75 mg Donepezil HCl (Aricept -) 10 mg PO DAILY [facility] Last Admin: 03/04/17 11:40 Dose: 10 mg Heparin Sodium (Porcine) (Heparin -) 5,000 unit SQ BID [facility] Dextrose/Sodium Chloride (D5-1/2ns -) 1,000 mls @ 42 mls/hr IV ASDIR [facility] Last Admin: 03/04/17 02:41 Dose: 42 mls/hr Insulin Aspart (Novolog Vial Sliding Scale -) 1 vial SQ ACHS [facility] PRN Reason: Protocol Last Admin: 03/04/17 21:50 Dose: Not Given Metoprolol Tartrate (Lopressor Injection -) 5 mg IVPUSH Q4H-IV [facility] Last Admin: 03/01/17 22:55 Dose: Not Given Mirtazapine (Remeron -) 15 mg PO HS [facility] Last Admin: 03/03/17 21:57 Dose: 15 mg Multivitamins/Minerals/Vitamin C (Tab-A-Vit -) 1 tab PO DAILY [facility] Last Admin: 03/04/17 11:41 Dose: 1 tab Spironolactone (Aldactone -) 25 mg PO DAILY [facility] Last Admin: 03/04/17 11:40 Dose: 25 mg Tamsulosin HCl (Flomax -) 0.4 mg PO 1630 [facility] Last Admin: 03/04/17 16:31 Dose: 0.4 mg - Objective Vital Signs: Vital Signs Temperature 98.3 F 03/04/17 18:00 Pulse Rate 115 H 03/04/17 18:00 Respiratory Rate 18 03/04/17 18:00 Blood Pressure 131/83 03/04/17 18:00 O2 Sat by Pulse Oximetry (%) 100 03/04/17 09:00 Constitutional: Yes: No Distress Neck: Yes: WNL, Supple Cardiovascular: Yes: Tachycardia Respiratory: Yes: WNL, Regular, CTA Bilaterally Gastrointestinal: Yes: WNL, Normal Bowel Sounds, Soft Extremities: Yes: Other ((+) gangrene toes/lt heel) Labs: CBC, BMP 03/04/17 06:00 03/04/17 06:00 INR, PTT INR 1.33 (0.82-1.09) H 02/24/17 11:30 Problem List - Problems (1) Atrial fibrillation Assessment/Plan: Pt still tachy Cont tele Restart IV metoprolol Pt given dose of dig wc may need to be restarted as per cardio Code(s): I48.91 - UNSPECIFIED ATRIAL FIBRILLATION Qualifiers: Qualified Code(s): I48.91 - Unspecified atrial fibrillation (2) Sepsis Assessment/Plan: Pt w/ advanced dementia and at this time will get palliative care consult for further management of gangrene Unable to clear for angio being that he is tachy Monitor for temp and panculture if spikes Check wbc in am IV cancidas was dc'ed Code(s): A41.9 - SEPSIS, UNSPECIFIED ORGANISM Qualifiers: Qualified Code(s): A41.9 - Sepsis, unspecified organism (3) Systolic CHF Assessment/Plan: Acute on chronic systolic CHF Cont spirinolactone monitor electrolytes Code(s): I50.20 - UNSPECIFIED SYSTOLIC (CONGESTIVE) HEART FAILURE (4) ACS (acute coronary syndrome) Code(s): I24.9 - ACUTE ISCHEMIC HEART DISEASE, UNSPECIFIED (5) CAD (coronary artery disease) Code(s): I25.10 - ATHSCL HEART DISEASE OF [place] CORONARY ARTERY W/O ANG PCTRS (6) Dementia Code(s): F03.90 - UNSPECIFIED DEMENTIA WITHOUT BEHAVIORAL DISTURBANCE (7) Diabetes Code(s): E11.9 - TYPE 2 DIABETES MELLITUS WITHOUT COMPLICATIONS (8) HTN (hypertension) Code(s): I10 - ESSENTIAL (PRIMARY) HYPERTENSION (9) Normocytic anemia Code(s): D64.9 - ANEMIA, UNSPECIFIED (10) Hyperlipidemia Code(s): E78.5 - HYPERLIPIDEMIA, UNSPECIFIED
[2017-03-04] MEDS ORDERED: METOPROLOL TARTRATE 5 MG/5 ML VIAL IVPUSH PRN (22:35)
[2017-03-04] MEDS: ACETAMINOPHEN 650 MG SUPP.RECT PR PRN (23:30)
[2017-03-05 07:33] LABS: BASOPHIL 0.3 % (0-2.0); EOSINOPHIL 0.6 % (0-4.5); MCH 26.1 pg (25.7-33.7); MCHC 31.8 g/dl (32.0-35.9); MEAN PLT VOLUME 8.3 fl (7.5-11.1); NEUTROPHILS 78.9 % (42.8-82.8); PLATELET COUNT 408 K/MM3 (134-434); RDW 20.9 % (11.9-15.9); WHITE BLOOD COUNT 11.2 K/mm3 (4.0-10.0)
[2017-03-05 07:41] LABS: ALBUMIN 1.7 g/dl (3.4-5.0); ANION GAP 6 (8-16); CALCIUM 8.2 mg/dL (8.5-10.1); CO2 31 mmol/L (21-32); CREATININE 0.6 mg/dL (0.7-1.3); GLUCOSE,RANDOM 171 mg/dL (74-106); SGOT/AST 8 U/L (15-37); SGPT/ALT 9 U/L (12-78)
[2017-03-05 07:43] LABS: ALK PHOS 66 U/L (45-117); BILIRUBIN,TOTAL 0.4 mg/dL (0.2-1.0); TOT PROT 5.9 g/dl (6.4-8.2)
[2017-03-05] MEDS: DEXTROSE 5%-0.45% SALINE 1,000 ML IV SCH ×2 (08:23→16:27)
--- NOTE | 2017-03-05 10:08 | PN ---
Progress Note, Physician History of Present Illness: The patient is a 76-year-old male (b. 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 Patient presents for admission at request of Dr. Kothari, vascular, for workup and angiogram. Upon arrival to the ED, the pt. was found to have a heart rate in the 150's. Pt. cannot state if he has any chest pain. Patient has baseline dementia. T - Current Medication List Current Medications: Active Medications Acetaminophen (Tylenol Suppository -) 650 mg [place] Q6H PRN PRN Reason: FEVER Last Admin: 03/04/17 23:30 Dose: 650 mg Aspirin (Asa -) 81 mg PO DAILY [facility] Last Admin: 03/04/17 11:40 Dose: 81 mg Clonazepam (Klonopin -) 0.5 mg PO Q12H [facility] Last Admin: 03/04/17 22:05 Dose: 0.5 mg Clopidogrel Bisulfate (Plavix -) 75 mg PO DAILY [facility] Last Admin: 03/04/17 11:40 Dose: 75 mg Donepezil HCl (Aricept -) 10 mg PO DAILY [facility] Last Admin: 03/04/17 11:40 Dose: 10 mg Heparin Sodium (Porcine) (Heparin -) 5,000 unit SQ BID [facility] Last Admin: 03/04/17 22:04 Dose: 5,000 unit Dextrose/Sodium Chloride (D5-1/2ns -) 1,000 mls @ 42 mls/hr IV ASDIR [facility] Last Admin: 03/05/17 08:23 Dose: Not Given Insulin Aspart (Novolog Vial Sliding Scale -) 1 vial SQ ACHS [facility] PRN Reason: Protocol Last Admin: 03/04/17 21:50 Dose: Not Given Metoprolol Tartrate (Lopressor Injection -) 5 mg IVPUSH Q4H-IV [facility] Last Admin: 03/01/17 22:55 Dose: Not Given Metoprolol Tartrate (Lopressor Injection -) 5 mg IVPUSH Q4H PRN PRN Reason: SUSTAINED HR > 130 Mirtazapine (Remeron -) 15 mg PO HS [facility] Last Admin: 03/04/17 22:05 Dose: 15 mg Multivitamins/Minerals/Vitamin C (Tab-A-Vit -) 1 tab PO DAILY [facility] Last Admin: 03/04/17 11:41 Dose: 1 tab Spironolactone (Aldactone -) 25 mg PO DAILY [facility] Last Admin: 03/04/17 11:40 Dose: 25 mg Tamsulosin HCl (Flomax -) 0.4 mg PO 1630 [facility] Last Admin: 03/04/17 16:31 Dose: 0.4 mg - Objective Vital Signs: Vital Signs Temperature 98.1 F 03/04/17 22:00 Pulse Rate 138 H 03/04/17 22:05 Respiratory Rate 20 03/04/17 22:00 Blood Pressure 124/70 03/04/17 22:05 O2 Sat by Pulse Oximetry (%) 100 03/04/17 21:00 Constitutional: Yes: Diaphoresis Eyes: Yes: WNL, Conjunctiva Clear, EOM Intact HENT: Yes: WNL, Atraumatic, Normocephalic Neck: Yes: WNL, Supple, Trachea Midline Cardiovascular: Yes: Pulse Irregular Respiratory: Yes: WNL, Regular, CTA Bilaterally Gastrointestinal: Yes: WNL, Normal Bowel Sounds Genitourinary: Yes: WNL Musculoskeletal: Yes: WNL Edema: No Integumentary: Yes: WNL Neurological: Yes: Lethargy ...Motor Strength: WNL Psychiatric: Yes: WNL Labs: CBC, BMP 03/05/17 06:00 03/05/17 06:00 INR, PTT INR 1.33 (0.82-1.09) H 02/24/17 11:30 Assessment/Plan (1) Atrial fibrillation Assessment/Plan: Pt with AF; HR better controlled. On metoprolol; however, it has been difficult to give him PO meds. Now on metoprolol tartrate 5 mg IVP q 4 hrs Start digoxin maintenance dose 0.125 mg daily IVP; keep level 0.5-1.0. Code(s): I48.91 - UNSPECIFIED ATRIAL FIBRILLATION Qualifiers: Qualified Code(s): I48.91 - Unspecified atrial fibrillation (2) Open wound of left foot Assessment/Plan: gangrene; open wound f/u with vascular specialist. asked to clear the patient for angio. Patient has severe dementia , is lethargic. He cannot be further optimize. he is moderate risk for angiogram.Code(s): S91.302A - UNSPECIFIED OPEN WOUND, LEFT FOOT, INITIAL ENCOUNTER Qualifiers: Qualified Code(s): S91.302D - Unspecified open wound, left foot, subsequent encounter (3) Sepsis Code(s): A41.9 - SEPSIS, UNSPECIFIED ORGANISM Qualifiers: Qualified Code(s): A41.9 - Sepsis, unspecified organism (4) Tachycardia Assessment/Plan: AF with periods of RVR. On metoprolol. Digoxin if necessary. Maintain hydration. Code(s): R00.0 - TACHYCARDIA, UNSPECIFIED (5) ACS (acute coronary syndrome) Assessment/Plan: s/p NSTEMI 12/28. Pt's family opted at that time for conservative management (no coronary angiogram). Continue medications for systolic CHF Code(s): I24.9 - ACUTE ISCHEMIC HEART DISEASE, UNSPECIFIED (6) CAD (coronary artery disease) Code(s): I25.10 - ATHSCL HEART DISEASE OF [place] CORONARY ARTERY W/O ANG PCTRS (7) Dementia Assessment/Plan: Profound dementia. Pt's daughters have, in the past, discussed options for care of their father, including hospice. Code(s): F03.90 - UNSPECIFIED DEMENTIA WITHOUT BEHAVIORAL DISTURBANCE (8) Hyperlipidemia Code(s): E78.5 - HYPERLIPIDEMIA, UNSPECIFIED (9) Infection of left foot Code(s): L08.9 - LOCAL INFECTION OF THE SKIN AND SUBCUTANEOUS TISSUE, UNSP (10) NSTEMI (non-ST elevated myocardial infarction) Code(s): I21.4 - NON-ST ELEVATION (NSTEMI) MYOCARDIAL INFARCTION (11) Diabetes Code(s): E11.9 - TYPE 2 DIABETES MELLITUS WITHOUT COMPLICATIONS (12) Normocytic anemia Code(s): D64.9 - ANEMIA, UNSPECIFIED (13) Systolic CHF Code(s): I50.20 - UNSPECIFIED SYSTOLIC (CONGESTIVE) HEART FAILURE
[2017-03-05] MEDS: clonazePAM 0.5 MG TABLET PO SCH ×2 (10:33→22:12)
[2017-03-05] MEDS: DONEPEZIL HCL 10 MG TABLET (FP) PO SCH (10:33)
[2017-03-05] MEDS: SPIRONOLACTONE 25 MG TABLET (FP) PO SCH (10:33)
[2017-03-05] MEDS: ASPIRIN 81 MG CHEWABLE TABLETS PO SCH (10:36)
[2017-03-05] MEDS: HEPARIN NA (PORCINE) 5,000 UNITS/ML 1ML VIAL SQ SCH ×2 (10:36→21:20)
[2017-03-05] MEDS: MULTIVITAMINS (DAILY MVI) TABLET (FP) PO SCH (10:36)
[2017-03-05] MEDS: CLOPIDOGREL BISULFATE 75 MG TABLET (FP) PO SCH (10:36)
[2017-03-05] MEDS ORDERED: INSULIN (NOVOLOG) ASPART 100 UNITS/ML 10ML VIAL ONE ×2 (12:37→12:46)
[2017-03-05] MEDS: INSULIN SLIDING SCALE (NOVOLOG) 1 VIAL SQ SCH ×4 (12:40→21:20)
[2017-03-05] MEDS: DIGOXIN 0.125 MG TABLET (FP) PO SCH (12:41)
[2017-03-05] MEDS: METOPROLOL TARTRATE 25 MG TABLET (FP) PO SCH ×2 (12:41→21:19)
[2017-03-05] MEDS: TAMSULOSIN HCL 0.4 MG CAP.ER.24H (FP) PO SCH (16:20)
[2017-03-05] MEDS: MIRTAZAPINE 15 MG TABLET (FP) PO SCH (21:19)
--- NOTE | 2017-03-05 22:35 | PN ---
Progress Note, Physician History of Present Illness: Heart rate improving - Current Medication List Current Medications: Active Medications Acetaminophen (Tylenol Suppository -) 650 mg [place] Q6H PRN PRN Reason: FEVER Last Admin: 03/04/17 23:30 Dose: 650 mg Aspirin (Asa -) 81 mg PO DAILY [facility] Last Admin: 03/05/17 10:36 Dose: 81 mg Clonazepam (Klonopin -) 0.5 mg PO Q12H [facility] Last Admin: 03/05/17 22:12 Dose: 0.5 mg Clopidogrel Bisulfate (Plavix -) 75 mg PO DAILY [facility] Last Admin: 03/05/17 10:36 Dose: 75 mg Digoxin (Lanoxin -) 0.125 mg PO DAILY [facility] Last Admin: 03/05/17 12:41 Dose: 0.125 mg Donepezil HCl (Aricept -) 10 mg PO DAILY [facility] Last Admin: 03/05/17 10:33 Dose: 10 mg Heparin Sodium (Porcine) (Heparin -) 5,000 unit SQ BID [facility] Last Admin: 03/05/17 21:20 Dose: 5,000 unit Dextrose/Sodium Chloride (D5-1/2ns -) 1,000 mls @ 42 mls/hr IV ASDIR [facility] Last Admin: 03/05/17 16:27 Dose: 42 mls/hr Insulin Aspart (Novolog Vial Sliding Scale -) 1 vial SQ ACHS [facility] PRN Reason: Protocol Last Admin: 03/05/17 21:20 Dose: 2 units Metoprolol Tartrate (Lopressor Injection -) 5 mg IVPUSH Q4H-IV [facility] Last Admin: 03/01/17 22:55 Dose: Not Given Metoprolol Tartrate (Lopressor Injection -) 5 mg IVPUSH Q4H PRN PRN Reason: SUSTAINED HR > 130 Metoprolol Tartrate (Lopressor -) 25 mg PO BID [facility] Last Admin: 03/05/17 21:19 Dose: 25 mg Mirtazapine (Remeron -) 15 mg PO HS [facility] Last Admin: 03/05/17 21:19 Dose: 15 mg Multivitamins/Minerals/Vitamin C (Tab-A-Vit -) 1 tab PO DAILY [facility] Last Admin: 03/05/17 10:36 Dose: 1 tab Spironolactone (Aldactone -) 25 mg PO DAILY [facility] Last Admin: 03/05/17 10:33 Dose: 25 mg Tamsulosin HCl (Flomax -) 0.4 mg PO 1630 [facility] Last Admin: 03/05/17 16:20 Dose: 0.4 mg - Objective Vital Signs: Vital Signs Temperature 97.6 F 03/05/17 22:00 Pulse Rate 101 H 03/05/17 22:00 Respiratory Rate 20 03/05/17 22:00 Blood Pressure 123/61 03/05/17 22:00 O2 Sat by Pulse Oximetry (%) 99 03/05/17 20:14 Constitutional: Yes: No Distress Neck: Yes: WNL, Supple Cardiovascular: Yes: Pulse Irregular Respiratory: Yes: WNL, Regular, CTA Bilaterally Gastrointestinal: Yes: WNL, Normal Bowel Sounds, Soft Edema: No Labs: CBC, BMP 03/05/17 06:00 03/05/17 06:00 INR, PTT INR 1.33 (0.82-1.09) H 02/24/17 11:30 Problem List - Problems (1) Atrial fibrillation Assessment/Plan: Pt still tachy but improved Cont tele Cont metoprolol Dig started Code(s): I48.91 - UNSPECIFIED ATRIAL FIBRILLATION Qualifiers: Qualified Code(s): I48.91 - Unspecified atrial fibrillation (2) Sepsis Assessment/Plan: Heart rate better controlled Pt medically cleared for angio for gangrene to toes/heel Pt off antibxs WBC decreased Code(s): A41.9 - SEPSIS, UNSPECIFIED ORGANISM Qualifiers: Qualified Code(s): A41.9 - Sepsis, unspecified organism (3) Systolic CHF Assessment/Plan: Acute on chronic systolic CHF Cont spirinolactone monitor electrolytes Code(s): I50.20 - UNSPECIFIED SYSTOLIC (CONGESTIVE) HEART FAILURE (4) ACS (acute coronary syndrome) Assessment/Plan: Cont asa/plavix Code(s): I24.9 - ACUTE ISCHEMIC HEART DISEASE, UNSPECIFIED (5) CAD (coronary artery disease) Code(s): I25.10 - ATHSCL HEART DISEASE OF [place] CORONARY ARTERY W/O ANG PCTRS (6) Dementia Assessment/Plan: Cont aricept Code(s): F03.90 - UNSPECIFIED DEMENTIA WITHOUT BEHAVIORAL DISTURBANCE (7) Diabetes Assessment/Plan: Cont sliding scale w/ novolog Code(s): E11.9 - TYPE 2 DIABETES MELLITUS WITHOUT COMPLICATIONS (8) HTN (hypertension) Assessment/Plan: BP stable Cont metoprolol Code(s): I10 - ESSENTIAL (PRIMARY) HYPERTENSION (9) Normocytic anemia Code(s): D64.9 - ANEMIA, UNSPECIFIED (10) Hyperlipidemia Code(s): E78.5 - HYPERLIPIDEMIA, UNSPECIFIED
[2017-03-06] MEDS: DEXTROSE 5%-0.45% SALINE 1,000 ML IV SCH (06:08)
[2017-03-06] MEDS: INSULIN SLIDING SCALE (NOVOLOG) 1 VIAL SQ SCH ×4 (06:17→21:56)
[2017-03-06] MEDS ORDERED: INSULIN (NOVOLOG) ASPART 100 UNITS/ML 10ML VIAL ONE (06:17)
[2017-03-06] MEDS: SPIRONOLACTONE 25 MG TABLET (FP) PO SCH (09:40)
[2017-03-06] MEDS: DIGOXIN 0.125 MG TABLET (FP) PO SCH (09:40)
[2017-03-06] MEDS: HEPARIN NA (PORCINE) 5,000 UNITS/ML 1ML VIAL SQ SCH ×2 (09:40→21:39)
[2017-03-06] MEDS: DONEPEZIL HCL 10 MG TABLET (FP) PO SCH (09:41)
[2017-03-06] MEDS: MULTIVITAMINS (DAILY MVI) TABLET (FP) PO SCH (09:41)
[2017-03-06] MEDS: ASPIRIN 81 MG CHEWABLE TABLETS PO SCH (09:41)
[2017-03-06] MEDS: METOPROLOL TARTRATE 25 MG TABLET (FP) PO SCH (09:41)
[2017-03-06] MEDS: CLOPIDOGREL BISULFATE 75 MG TABLET (FP) PO SCH (09:41)
[2017-03-06] MEDS: clonazePAM 0.5 MG TABLET PO SCH ×3 (09:48→22:45)
--- NOTE | 2017-03-06 10:19 | PN ---
Progress Note, Physician History of Present Illness: The patient is a 76-year-old male (b. [facility] [place]), with past medical history of Alzheimer's, severe systolic LV dysfunction, s/p NSTEMI, PAD, HLD, NIDDM, and HTN, who presents to the emergency department today with dry gangrene of his right foot. Patient presents for admission at request of Dr. Kothari, vascular, for workup and angiogram. Upon arrival to the ED, the pt. was found to have a heart rate in the 150's. Pt. cannot state if he has any chest pain. Patient has baseline dementia. T - Current Medication List Current Medications: Active Medications Acetaminophen (Tylenol Suppository -) 650 mg [place] Q6H PRN PRN Reason: FEVER Last Admin: 03/04/17 23:30 Dose: 650 mg Aspirin (Asa -) 81 mg PO DAILY [facility] Last Admin: 03/06/17 09:41 Dose: 81 mg Clonazepam (Klonopin -) 0.5 mg PO Q12H [facility] Last Admin: 03/06/17 09:48 Dose: 0.5 mg Clopidogrel Bisulfate (Plavix -) 75 mg PO DAILY [facility] Last Admin: 03/06/17 09:41 Dose: 75 mg Digoxin (Lanoxin -) 0.125 mg PO DAILY [facility] Last Admin: 03/06/17 09:40 Dose: 0.125 mg Donepezil HCl (Aricept -) 10 mg PO DAILY [facility] Last Admin: 03/06/17 09:41 Dose: 10 mg Heparin Sodium (Porcine) (Heparin -) 5,000 unit SQ BID [facility] Last Admin: 03/06/17 09:40 Dose: 5,000 unit Dextrose/Sodium Chloride (D5-1/2ns -) 1,000 mls @ 42 mls/hr IV ASDIR [facility] Last Admin: 03/06/17 06:08 Dose: Not Given Insulin Aspart (Novolog Vial Sliding Scale -) 1 vial SQ ACHS [facility] PRN Reason: Protocol Last Admin: 03/06/17 06:17 Dose: 2 units Metoprolol Tartrate (Lopressor Injection -) 5 mg IVPUSH Q4H-IV [facility] Last Admin: 03/01/17 22:55 Dose: Not Given Metoprolol Tartrate (Lopressor -) 25 mg PO BID [facility] Last Admin: 08/24/17 09:41 Dose: 25 mg Mirtazapine (Remeron -) 15 mg PO HS [facility] Last Admin: 03/05/17 21:19 Dose: 15 mg Multivitamins/Minerals/Vitamin C (Tab-A-Vit -) 1 tab PO DAILY [facility] Last Admin: 03/06/17 09:41 Dose: 1 tab Spironolactone (Aldactone -) 25 mg PO DAILY [facility] Last Admin: 03/06/17 09:40 Dose: 25 mg Tamsulosin HCl (Flomax -) 0.4 mg PO 1630 [facility] Last Admin: 03/05/17 16:20 Dose: 0.4 mg - Objective Vital Signs: Vital Signs Temperature 97.8 F 03/06/17 06:00 Pulse Rate 137 H 03/06/17 09:40 Respiratory Rate 20 03/06/17 06:00 Blood Pressure 130/75 03/06/17 06:00 O2 Sat by Pulse Oximetry (%) 99 03/05/17 20:14 Eyes: Yes: WNL, Conjunctiva Clear, EOM Intact HENT: Yes: WNL, Atraumatic, Normocephalic Neck: Yes: WNL, Supple, Trachea Midline Cardiovascular: Yes: Pulse Irregular, S1, S2 Respiratory: Yes: WNL, Regular, CTA Bilaterally Gastrointestinal: Yes: WNL, Normal Bowel Sounds Genitourinary: Yes: WNL Musculoskeletal: Yes: WNL Edema: No Integumentary: Yes: WNL Neurological: Yes: Lethargy ...Motor Strength: WNL Psychiatric: Yes: WNL Labs: CBC, BMP 03/05/17 06:00 03/05/17 06:00 INR, PTT INR 1.33 (0.82-1.09) H 02/24/17 11:30 Assessment/Plan (1) Atrial fibrillation Assessment/Plan: Pt with AF; HR better controlled. On metoprolol; however, it has been difficult to give him PO meds. Now on metoprolol tartrate 5 mg IVP q 4 hrs Start digoxin maintenance dose 0.125 mg daily IVP; keep level 0.5-1.0. Code(s): I48.91 - UNSPECIFIED ATRIAL FIBRILLATION Qualifiers: Qualified Code(s): I48.91 - Unspecified atrial fibrillation (2) Open wound of left foot Assessment/Plan: gangrene; open wound f/u with vascular specialist. asked to clear the patient for angio. Patient has severe dementia , is lethargic. He cannot be further optimize. he is moderate risk for angiogram.Code(s): S91.302A - UNSPECIFIED OPEN WOUND, LEFT FOOT, INITIAL ENCOUNTER Qualifiers: Qualified Code(s): S91.302D - Unspecified open wound, left foot, subsequent encounter (3) Sepsis Code(s): A41.9 - SEPSIS, UNSPECIFIED ORGANISM Qualifiers: Qualified Code(s): A41.9 - Sepsis, unspecified organism (4) Tachycardia Assessment/Plan: AF with periods of RVR. On metoprolol and Digoxin Maintain hydration. Code(s): R00.0 - TACHYCARDIA, UNSPECIFIED (5) ACS (acute coronary syndrome) Assessment/Plan: s/p NSTEMI 12/28. Pt's family opted at that time for conservative management (no coronary angiogram). Continue medications for systolic CHF Code(s): I24.9 - ACUTE ISCHEMIC HEART DISEASE, UNSPECIFIED (6) CAD (coronary artery disease) Code(s): I25.10 - ATHSCL HEART DISEASE OF [place] CORONARY ARTERY W/O ANG PCTRS (7) Dementia Assessment/Plan: Profound dementia. Pt's daughters have, in the past, discussed options for care of their father, including hospice. Code(s): F03.90 - UNSPECIFIED DEMENTIA WITHOUT BEHAVIORAL DISTURBANCE (8) Hyperlipidemia Code(s): E78.5 - HYPERLIPIDEMIA, UNSPECIFIED (9) Infection of left foot Code(s): L08.9 - LOCAL INFECTION OF THE SKIN AND SUBCUTANEOUS TISSUE, UNSP (10) NSTEMI (non-ST elevated myocardial infarction) Code(s): I21.4 - NON-ST ELEVATION (NSTEMI) MYOCARDIAL INFARCTION (11) Diabetes Code(s): E11.9 - TYPE 2 DIABETES MELLITUS WITHOUT COMPLICATIONS (12) Normocytic anemia Code(s): D64.9 - ANEMIA, UNSPECIFIED (13) Systolic CHF Code(s): I50.20 - UNSPECIFIED SYSTOLIC (CONGESTIVE) HEART FAILURE
--- NOTE | 2017-03-06 11:37 | PN ---
Progress Note (short form) - Note Progress Note: arndt patent urine clear abd soft will need gu w/u when stable
--- NOTE | 2017-03-06 15:59 | SPA.PREOP ---
- PRE-OP NOTE Dx: Right lower extremity gangrene Planned Procedure: right lwoer extremity angiogram Surgeon: Dr. Kothari Last Vital Signs Temp Pulse Resp BP Pulse Ox 98.7 F 120 H 18 122/64 99 03/06/17 13:52 03/06/17 13:52 03/06/17 13:52 03/06/17 13:52 03/06/17 09:00 Lab Results WBC 11.2 K/mm3 (4.0-10.0) H 03/05/17 06:00 RBC 3.27 M/mm3 (4.00-5.60) L 03/05/17 06:00 Hgb 8.5 GM/dL (11.7-16.9) L D 03/05/17 06:00 Hct 26.8 % (35.4-49) L 03/05/17 06:00 MCV 82.0 fl (80-96) 03/05/17 06:00 MCHC 31.8 g/dl (32.0-35.9) L 03/05/17 06:00 RDW 20.9 % (11.9-15.9) H 03/05/17 06:00 Plt Count 408 K/MM3 (134-434) 03/05/17 06:00 Sodium 141 mmol/L (136-145) 03/05/17 06:00 Potassium 3.5 mmol/L (3.5-5.1) 03/05/17 06:00 Chloride 104 mmol/L (98-107) 03/05/17 06:00 Carbon Dioxide 31 mmol/L (21-32) 03/05/17 06:00 Anion Gap 6 (8-16) L 03/05/17 06:00 BUN 7 mg/dL (7-18) 03/05/17 06:00 Creatinine 0.6 mg/dL (0.7-1.3) L 03/05/17 06:00 Random Glucose 171 mg/dL (74-106) H 03/05/17 06:00 Calcium 8.2 mg/dL (8.5-10.1) L 03/05/17 06:00 Blood Type AB NEGATIVE 02/24/17 11:30 Antibody Screen Negative 02/24/17 11:30 INR 1.33 (0.82-1.09) H 02/24/17 11:30 - ASSESSMENT/PLAN 77 yo male with RLE gangrene, plan for angiogram in the am 1. Make NPO after midnight except po meds 2. Medical optimization / clearance in the chart, cleared by the medical team for angio yesterday Visit type - Case Type Case Type: ED Admission - Emergency Emergency Visit: Yes ED Registration Date: 02/24/17 Care time: The patient presented to the Emergency Department on the above date and was hospitalized for further evaluation of their emergent condition. - New patient This patient is new to me today: Yes Date on this admission: 03/06/17 - Critical Care Critical Care patient: No
[2017-03-06] MEDS: TAMSULOSIN HCL 0.4 MG CAP.ER.24H (FP) PO SCH (16:57)
[2017-03-06] MEDS ORDERED: PT OWN MED DRAWER 7, Y5N ONE (18:27)
--- NOTE | 2017-03-06 19:55 | PN ---
Progress Note, Physician History of Present Illness: No new changes - Current Medication List Current Medications: Active Medications Acetaminophen (Tylenol Suppository -) 650 mg [place] Q6H PRN PRN Reason: FEVER Last Admin: 03/04/17 23:30 Dose: 650 mg Aspirin (Asa -) 81 mg PO DAILY [facility] Last Admin: 03/06/17 09:41 Dose: 81 mg Clonazepam (Klonopin -) 0.5 mg PO Q12H [facility] Last Admin: 03/06/17 09:48 Dose: 0.5 mg Clopidogrel Bisulfate (Plavix -) 75 mg PO DAILY [facility] Last Admin: 03/06/17 09:41 Dose: 75 mg Digoxin (Lanoxin -) 0.125 mg PO DAILY [facility] Last Admin: 03/06/17 09:40 Dose: 0.125 mg Donepezil HCl (Aricept -) 10 mg PO DAILY [facility] Last Admin: 03/06/17 09:41 Dose: 10 mg Heparin Sodium (Porcine) (Heparin -) 5,000 unit SQ BID [facility] Last Admin: 03/06/17 09:40 Dose: 5,000 unit Dextrose/Sodium Chloride (D5-1/2ns -) 1,000 mls @ 42 mls/hr IV ASDIR [facility] Last Admin: 03/06/17 06:08 Dose: Not Given Insulin Aspart (Novolog Vial Sliding Scale -) 1 vial SQ ACHS [facility] PRN Reason: Protocol Last Admin: 03/06/17 17:01 Dose: 4 units Metoprolol Tartrate (Lopressor Injection -) 5 mg IVPUSH Q4H-IV [facility] Last Admin: 03/01/17 22:55 Dose: Not Given Metoprolol Tartrate (Lopressor -) 50 mg PO BID [facility] Mirtazapine (Remeron -) 15 mg PO HS [facility] Last Admin: 03/05/17 21:19 Dose: 15 mg Multivitamins/Minerals/Vitamin C (Tab-A-Vit -) 1 tab PO DAILY [facility] Last Admin: 03/06/17 09:41 Dose: 1 tab Spironolactone (Aldactone -) 25 mg PO DAILY [facility] Last Admin: 03/06/17 09:40 Dose: 25 mg Tamsulosin HCl (Flomax -) 0.4 mg PO 1630 [facility] Last Admin: 03/06/17 16:57 Dose: 0.4 mg - Objective Vital Signs: Vital Signs Temperature 98.7 F 03/06/17 13:52 Pulse Rate 120 H 03/06/17 13:52 Respiratory Rate 18 03/06/17 13:52 Blood Pressure 122/64 03/06/17 13:52 O2 Sat by Pulse Oximetry (%) 99 03/06/17 09:00 Constitutional: Yes: No Distress Neck: Yes: WNL, Supple Cardiovascular: Yes: Tachycardia Respiratory: Yes: WNL, Regular, CTA Bilaterally Gastrointestinal: Yes: WNL, Normal Bowel Sounds, Soft Extremities: Yes: Other ((+) gangrene toes/lt heel) Edema: No Labs: CBC, BMP 03/05/17 06:00 03/05/17 06:00 INR, PTT INR 1.33 (0.82-1.09) H 02/24/17 11:30 Problem List - Problems (1) Atrial fibrillation Assessment/Plan: Pt still tachy but improved Cont tele As per cardio Code(s): I48.91 - UNSPECIFIED ATRIAL FIBRILLATION Qualifiers: Qualified Code(s): I48.91 - Unspecified atrial fibrillation (2) Sepsis Assessment/Plan: Check wbc in am ID consult Code(s): A41.9 - SEPSIS, UNSPECIFIED ORGANISM Qualifiers: Qualified Code(s): A41.9 - Sepsis, unspecified organism (3) Systolic CHF Assessment/Plan: Acute on chronic systolic CHF Cont spirinolactone monitor electrolytes Code(s): I50.20 - UNSPECIFIED SYSTOLIC (CONGESTIVE) HEART FAILURE (4) ACS (acute coronary syndrome) Assessment/Plan: Cont asa/plavix Code(s): I24.9 - ACUTE ISCHEMIC HEART DISEASE, UNSPECIFIED (5) CAD (coronary artery disease) Code(s): I25.10 - ATHSCL HEART DISEASE OF [place] CORONARY ARTERY W/O ANG PCTRS (6) Dementia Assessment/Plan: Cont aricept Code(s): F03.90 - UNSPECIFIED DEMENTIA WITHOUT BEHAVIORAL DISTURBANCE (7) Diabetes Assessment/Plan: Cont sliding scale w/ novolog Code(s): E11.9 - TYPE 2 DIABETES MELLITUS WITHOUT COMPLICATIONS (8) HTN (hypertension) Code(s): I10 - ESSENTIAL (PRIMARY) HYPERTENSION (9) Normocytic anemia Code(s): D64.9 - ANEMIA, UNSPECIFIED (10) Hyperlipidemia Code(s): E78.5 - HYPERLIPIDEMIA, UNSPECIFIED
[2017-03-06] MEDS: MIRTAZAPINE 15 MG TABLET (FP) PO SCH (21:39)
[2017-03-06] MEDS: METOPROLOL TARTRATE 50 MG TABLET (FP) PO SCH (21:39)
[2017-03-06] MEDS: ACETAMINOPHEN 650 MG SUPP.RECT PR PRN (21:56)
[2017-03-07] MEDS: DEXTROSE 5%-0.45% SALINE 1,000 ML IV SCH ×2 (00:45→14:17)
[2017-03-07 02:12] LABS: URINE APPEARANCE TURBID; URINE BILIRUBIN NEGATIVE (NEGATIVE); URINE BLOOD 3+ (NEGATIVE); URINE COLOR YELLOW; URINE GLUCOSE (UA) NEGATIVE (NEGATIVE); URINE KETONE NEGATIVE (NEGATIVE); URINE LEUK ESTERASE 2+ (NEGATIVE); URINE NITRITE NEGATIVE (NEGATIVE); URINE PROTEIN 2+ (NEGATIVE)
[2017-03-07 02:16] LABS: CALCIUM OXALATE CRYSTALS MANY /hpf (NONE SEEN); URINE BACTERIA MANY /hpf (NONE SEEN); URINE MUCUS MANY; URINE RBC 94 /hpf (0-3); URINE WBC 2378 /hpf (3-5)
[2017-03-07] MEDS: INSULIN SLIDING SCALE (NOVOLOG) 1 VIAL SQ SCH ×4 (06:32→22:01)
[2017-03-07 07:09] LABS: MCH 26.2 pg (25.7-33.7); MCHC 31.8 g/dl (32.0-35.9); MEAN CELL VOLUME 82.6 fl (80-96); MEAN PLT VOLUME 8.2 fl (7.5-11.1); PLATELET COUNT 458 K/MM3 (134-434); RDW 20.7 % (11.9-15.9); WHITE BLOOD COUNT 12.5 K/mm3 (4.0-10.0)
[2017-03-07 07:38] LABS: ALK PHOS 79 U/L (45-117); ANION GAP 9 (8-16); BILIRUBIN,TOTAL 0.5 mg/dL (0.2-1.0); CALCIUM 8.6 mg/dL (8.5-10.1); CO2 30 mmol/L (21-32); CREATININE 0.6 mg/dL (0.7-1.3); GLUCOSE,RANDOM 167 mg/dL (74-106); SGOT/AST 10 U/L (15-37); SGPT/ALT 9 U/L (12-78)
--- NOTE | 2017-03-07 10:35 | PN ---
Progress Note, Physician History of Present Illness: The patient is a 76-year-old male (b. 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 Patient presents for admission at request of Dr. Kothari, vascular, for workup and angiogram. Upon arrival to the ED, the pt. was found to have a heart rate in the 150's. Pt. cannot state if he has any chest pain. Patient has baseline dementia. T - Current Medication List Current Medications: Active Medications Acetaminophen (Tylenol Suppository -) 650 mg [place] Q6H PRN PRN Reason: FEVER Last Admin: 03/06/17 21:56 Dose: 650 mg Aspirin (Asa -) 81 mg PO DAILY [facility] Last Admin: 03/06/17 09:41 Dose: 81 mg Clonazepam (Klonopin -) 0.5 mg PO Q12H [facility] Last Admin: 03/06/17 22:45 Dose: Not Given Clopidogrel Bisulfate (Plavix -) 75 mg PO DAILY [facility] Last Admin: 03/06/17 09:41 Dose: 75 mg Digoxin (Lanoxin -) 0.125 mg PO DAILY [facility] Last Admin: 03/06/17 09:40 Dose: 0.125 mg Donepezil HCl (Aricept -) 10 mg PO DAILY [facility] Last Admin: 03/06/17 09:41 Dose: 10 mg Heparin Sodium (Porcine) (Heparin -) 5,000 unit SQ BID [facility] Last Admin: 03/06/17 21:39 Dose: 5,000 unit Dextrose/Sodium Chloride (D5-1/2ns -) 1,000 mls @ 42 mls/hr IV ASDIR [facility] Last Admin: 03/07/17 00:45 Dose: 42 mls/hr Insulin Aspart (Novolog Vial Sliding Scale -) 1 vial SQ ACHS [facility] PRN Reason: Protocol Last Admin: 03/07/17 06:32 Dose: Not Given Metoprolol Tartrate (Lopressor Injection -) 5 mg IVPUSH Q4H-IV [facility] Last Admin: 03/01/17 22:55 Dose: Not Given Metoprolol Tartrate (Lopressor -) 50 mg PO BID [facility] Last Admin: 03/06/17 21:39 Dose: 50 mg Mirtazapine (Remeron -) 15 mg PO HS [facility] Last Admin: 03/06/17 21:39 Dose: 15 mg Multivitamins/Minerals/Vitamin C (Tab-A-Vit -) 1 tab PO DAILY [facility] Last Admin: 03/06/17 09:41 Dose: 1 tab Spironolactone (Aldactone -) 25 mg PO DAILY [facility] Last Admin: 03/06/17 09:40 Dose: 25 mg Tamsulosin HCl (Flomax -) 0.4 mg PO 1630 [facility] Last Admin: 03/06/17 16:57 Dose: 0.4 mg - Objective Vital Signs: Vital Signs Temperature 97.8 F 03/07/17 10:00 Pulse Rate 111 H 03/07/17 10:00 Respiratory Rate 16 03/07/17 10:00 Blood Pressure 128/70 03/07/17 10:00 O2 Sat by Pulse Oximetry (%) 99 03/07/17 09:00 Eyes: Yes: WNL, Conjunctiva Clear, EOM Intact HENT: Yes: WNL, Atraumatic, Normocephalic Neck: Yes: WNL, Supple, Trachea Midline Cardiovascular: Yes: WNL, Regular Rate and Rhythm Respiratory: Yes: WNL, Regular, CTA Bilaterally Gastrointestinal: Yes: WNL, Normal Bowel Sounds Genitourinary: Yes: WNL Musculoskeletal: Yes: WNL Extremities: Yes: WNL Edema: No Integumentary: Yes: WNL Neurological: Yes: Lethargy ...Motor Strength: WNL Psychiatric: Yes: WNL Labs: CBC, BMP 03/07/17 06:30 03/07/17 06:30 INR, PTT INR 1.33 (0.82-1.09) H 02/24/17 11:30 Assessment/Plan (1) Atrial fibrillation Assessment/Plan: Pt with AF; HR better controlled. On metoprolol; however, it has been difficult to give him PO meds. Now on metoprolol tartrate 5 mg IVP q 4 hrs Start digoxin maintenance dose 0.125 mg daily IVP; keep level 0.5-1.0. Code(s): I48.91 - UNSPECIFIED ATRIAL FIBRILLATION Qualifiers: Qualified Code(s): I48.91 - Unspecified atrial fibrillation (2) Open wound of left foot Assessment/Plan: gangrene; open wound f/u with vascular specialist. asked to clear the patient for angio. Patient has severe dementia , is lethargic. He cannot be further optimize. he is moderate risk for angiogram.Code(s): S91.302A - UNSPECIFIED OPEN WOUND, LEFT FOOT, INITIAL ENCOUNTER Qualifiers: Qualified Code(s): S91.302D - Unspecified open wound, left foot, subsequent encounter (3) Sepsis Code(s): A41.9 - SEPSIS, UNSPECIFIED ORGANISM Qualifiers: Qualified Code(s): A41.9 - Sepsis, unspecified organism (4) Tachycardia Assessment/Plan: AF with periods of RVR. On metoprolol and Digoxin Maintain hydration. Code(s): R00.0 - TACHYCARDIA, UNSPECIFIED (5) ACS (acute coronary syndrome) Assessment/Plan: s/p NSTEMI 12/28. Pt's family opted at that time for conservative management (no coronary angiogram). Continue medications for systolic CHF Code(s): I24.9 - ACUTE ISCHEMIC HEART DISEASE, UNSPECIFIED (6) CAD (coronary artery disease) Code(s): I25.10 - ATHSCL HEART DISEASE OF [place] CORONARY ARTERY W/O ANG PCTRS (7) Dementia Assessment/Plan: Profound dementia. Pt's daughters have, in the past, discussed options for care of their father, including hospice. Code(s): F03.90 - UNSPECIFIED DEMENTIA WITHOUT BEHAVIORAL DISTURBANCE (8) Hyperlipidemia Code(s): E78.5 - HYPERLIPIDEMIA, UNSPECIFIED (9) Infection of left foot Code(s): L08.9 - LOCAL INFECTION OF THE SKIN AND SUBCUTANEOUS TISSUE, UNSP (10) NSTEMI (non-ST elevated myocardial infarction) Code(s): I21.4 - NON-ST ELEVATION (NSTEMI) MYOCARDIAL INFARCTION (11) Diabetes Code(s): E11.9 - TYPE 2 DIABETES MELLITUS WITHOUT COMPLICATIONS (12) Normocytic anemia Code(s): D64.9 - ANEMIA, UNSPECIFIED (13) Systolic CHF Code(s): I50.20 - UNSPECIFIED SYSTOLIC (CONGESTIVE) HEART FAILURE
[2017-03-07] MEDS: ASPIRIN 81 MG CHEWABLE TABLETS PO SCH (11:23)
[2017-03-07] MEDS: DONEPEZIL HCL 10 MG TABLET (FP) PO SCH (11:23)
[2017-03-07] MEDS: SPIRONOLACTONE 25 MG TABLET (FP) PO SCH (11:23)
[2017-03-07] MEDS: HEPARIN NA (PORCINE) 5,000 UNITS/ML 1ML VIAL SQ SCH ×2 (11:23→21:43)
[2017-03-07] MEDS: METOPROLOL TARTRATE 50 MG TABLET (FP) PO SCH ×2 (11:24→21:43)
[2017-03-07] MEDS: DIGOXIN 0.125 MG TABLET (FP) PO SCH (11:24)
[2017-03-07] MEDS: clonazePAM 0.5 MG TABLET PO SCH ×2 (11:25→22:00)
[2017-03-07] MEDS: MULTIVITAMINS (DAILY MVI) TABLET (FP) PO SCH (11:25)
[2017-03-07] MEDS: CLOPIDOGREL BISULFATE 75 MG TABLET (FP) PO SCH (11:25)
[2017-03-07] MEDS ORDERED: METOPROLOL TARTRATE 5 MG/5 ML VIAL IVPUSH PRN (14:05)
--- NOTE | 2017-03-07 14:50 | PN ---
Progress Note (short form) - Note Progress Note: nurse reports fever to 102 last night- not recorded, tmax recorded is 100.4 remains in afib with intermittent tachycardis d/w Dr Kothari- angiogram cancelled awake but confused (baseline) Vital Signs Period Temp Pulse Resp BP Sys/Mcdaniel Pulse Ox Last 24 Hr 97.8 F-100.4 F 100-155 16-18 110-129/66-78 99-99 cor-rrr lungs clear abd soft,nt ext dry gangrene of the toes gangrene of the left heel arndt with cloudy urine 03/07/17 06:30 03/07/17 06:30 cultures sent a/p fevers- cannot r/o UTI prior history of klebsiella and ecoli ESBL will start meropenem vancomycin one dose f/u cultures in am dry gangrene- angoi on hold cad rapid afib recent treatment of fungal uti history of resistant organisms
[2017-03-07] MEDS ORDERED: VANCOMYCIN 1 GRAM (PRE-DOCKED) 250 ML IVPB ONE (14:52)
[2017-03-07] MEDS ORDERED: MEROPENEM 500 MG VIAL (RESTRICTED TO ID) IVPB SCH (15:00)
--- NOTE | 2017-03-07 15:29 | PN ---
Progress Note (short form) - Note Progress Note: VAscular Surgery Pt seen and examined. HR was 150 Recieved lopressor IV Also question of 102 temp last night. Not recorded. ID evaluated pt - antibiotics started. Cx pending. Angio on hold right now. Optimize HR to best as possible. Will do angio early next week. Spoke to daughter about the plan at bedside. Devan Kothari DO
[2017-03-07] MEDS: TAMSULOSIN HCL 0.4 MG CAP.ER.24H (FP) PO SCH (15:49)
[2017-03-07] MEDS ORDERED: INSULIN (NOVOLOG) ASPART 100 UNITS/ML 10ML VIAL ONE (16:03)
[2017-03-07] MEDS ORDERED: PT OWN MED DRAWER 7, Y5N ONE ×2 (18:02→21:42)
[2017-03-07] MEDS: MEROPENEM 500 MG in DEXTROSE 5%-WATER - 100 ML IVPB SCH (18:45)
[2017-03-07] MEDS: MIRTAZAPINE 15 MG TABLET (FP) PO SCH (21:43)
--- NOTE | 2017-03-07 22:42 | PN ---
Progress Note, Physician History of Present Illness: No new changes Tmax 99 - Current Medication List Current Medications: Active Medications Acetaminophen (Tylenol Suppository -) 650 mg [place] Q6H PRN PRN Reason: FEVER Last Admin: 03/06/17 21:56 Dose: 650 mg Aspirin (Asa -) 81 mg PO DAILY [facility] Last Admin: 03/07/17 11:23 Dose: Not Given Clonazepam (Klonopin -) 0.5 mg PO Q12H [facility] Last Admin: 03/07/17 22:00 Dose: 0.5 mg Clopidogrel Bisulfate (Plavix -) 75 mg PO DAILY [facility] Last Admin: 03/07/17 11:25 Dose: Not Given Digoxin (Lanoxin -) 0.125 mg PO DAILY [facility] Last Admin: 03/07/17 11:24 Dose: Not Given Donepezil HCl (Aricept -) 10 mg PO DAILY [facility] Last Admin: 03/07/17 11:23 Dose: Not Given Heparin Sodium (Porcine) (Heparin -) 5,000 unit SQ BID [facility] Last Admin: 03/07/17 21:43 Dose: 5,000 unit Dextrose/Sodium Chloride (D5-1/2ns -) 1,000 mls @ 42 mls/hr IV ASDIR [facility] Last Admin: 03/07/17 14:17 Dose: 42 mls/hr Meropenem 500 mg/ Dextrose 100 mls @ 400 mls/hr IVPB Q8H-IV [facility] Last Admin: 03/07/17 18:45 Dose: 400 mls/hr Insulin Aspart (Novolog Vial Sliding Scale -) 1 vial SQ ACHS [facility] PRN Reason: Protocol Last Admin: 03/07/17 22:01 Dose: Not Given Metoprolol Tartrate (Lopressor -) 50 mg PO BID [facility] Last Admin: 03/07/17 21:43 Dose: 50 mg Metoprolol Tartrate (Lopressor Injection -) 5 mg IVPUSH Q6H [facility] Last Admin: 03/07/17 14:17 Dose: 5 mg Mirtazapine (Remeron -) 15 mg PO HS [facility] Last Admin: 03/07/17 21:43 Dose: 15 mg Multivitamins/Minerals/Vitamin C (Tab-A-Vit -) 1 tab PO DAILY [facility] Last Admin: 03/07/17 11:25 Dose: Not Given Spironolactone (Aldactone -) 25 mg PO DAILY [facility] Last Admin: 03/07/17 11:23 Dose: Not Given Tamsulosin HCl (Flomax -) 0.4 mg PO 1630 [facility] Last Admin: 03/07/17 15:49 Dose: 0.4 mg - Objective Vital Signs: Vital Signs Temperature 99.1 F 03/07/17 20:48 Pulse Rate 131 H 03/07/17 20:48 Respiratory Rate 18 03/07/17 20:48 Blood Pressure 125/68 03/07/17 20:48 O2 Sat by Pulse Oximetry (%) 96 03/07/17 20:48 Constitutional: Yes: No Distress Neck: Yes: WNL, Supple Cardiovascular: Yes: Tachycardia Respiratory: Yes: WNL, Regular, CTA Bilaterally Gastrointestinal: Yes: WNL, Normal Bowel Sounds, Soft Extremities: Yes: Other ((+) ganrene toes/lt heel) Edema: No Labs: CBC, BMP 03/07/17 06:30 03/07/17 06:30 INR, PTT INR 1.33 (0.82-1.09) H 02/24/17 11:30 Problem List - Problems (1) Atrial fibrillation Code(s): I48.91 - UNSPECIFIED ATRIAL FIBRILLATION Qualifiers: Qualified Code(s): I48.91 - Unspecified atrial fibrillation (2) Sepsis Code(s): A41.9 - SEPSIS, UNSPECIFIED ORGANISM Qualifiers: Qualified Code(s): A41.9 - Sepsis, unspecified organism (3) Systolic CHF Code(s): I50.20 - UNSPECIFIED SYSTOLIC (CONGESTIVE) HEART FAILURE (4) ACS (acute coronary syndrome) Code(s): I24.9 - ACUTE ISCHEMIC HEART DISEASE, UNSPECIFIED (5) CAD (coronary artery disease) Code(s): I25.10 - ATHSCL HEART DISEASE OF [place] CORONARY ARTERY W/O ANG PCTRS (6) Dementia Code(s): F03.90 - UNSPECIFIED DEMENTIA WITHOUT BEHAVIORAL DISTURBANCE (7) Diabetes Code(s): E11.9 - TYPE 2 DIABETES MELLITUS WITHOUT COMPLICATIONS (8) HTN (hypertension) Code(s): I10 - ESSENTIAL (PRIMARY) HYPERTENSION (9) Normocytic anemia Code(s): D64.9 - ANEMIA, UNSPECIFIED (10) Hyperlipidemia Code(s): E78.5 - HYPERLIPIDEMIA, UNSPECIFIED
[2017-03-08] MEDS ORDERED: PT OWN MED DRAWER 7, Y5N ONE ×2 (01:11→17:04)
[2017-03-08] MEDS: DEXTROSE 5%-0.45% SALINE 1,000 ML IV SCH ×2 (01:14→22:26)
[2017-03-08] MEDS: MEROPENEM 500 MG in DEXTROSE 5%-WATER - 100 ML IVPB SCH ×3 (01:15→17:44)
[2017-03-08] MEDS: INSULIN SLIDING SCALE (NOVOLOG) 1 VIAL SQ SCH ×4 (06:18→22:25)
--- NOTE | 2017-03-08 08:34 | PN ---
Progress Note, Physician History of Present Illness: The patient is a 76-year-old male (b. [facility] [place]), with past medical history of Alzheimer's, severe systolic LV dysfunction, s/p NSTEMI, PAD, HLD, NIDDM, and HTN, who presents to the emergency department today with dry gangrene of his right foot. Patient presents for admission at request of Dr. Kothari, vascular, for workup and angiogram. Upon arrival to the ED, the pt. was found to have a heart rate in the 150's. Pt. cannot state if he has any chest pain. Patient has baseline dementia. T - Current Medication List Current Medications: Active Medications Acetaminophen (Tylenol Suppository -) 650 mg [place] Q6H PRN PRN Reason: FEVER Last Admin: 03/06/17 21:56 Dose: 650 mg Aspirin (Asa -) 81 mg PO DAILY [facility] Last Admin: 03/07/17 11:23 Dose: Not Given Clonazepam (Klonopin -) 0.5 mg PO Q12H [facility] Last Admin: 03/07/17 22:00 Dose: 0.5 mg Clopidogrel Bisulfate (Plavix -) 75 mg PO DAILY [facility] Last Admin: 03/07/17 11:25 Dose: Not Given Digoxin (Lanoxin -) 0.125 mg PO DAILY [facility] Last Admin: 03/07/17 11:24 Dose: Not Given Donepezil HCl (Aricept -) 10 mg PO DAILY [facility] Last Admin: 03/07/17 11:23 Dose: Not Given Heparin Sodium (Porcine) (Heparin -) 5,000 unit SQ BID [facility] Last Admin: 03/07/17 21:43 Dose: 5,000 unit Dextrose/Sodium Chloride (D5-1/2ns -) 1,000 mls @ 42 mls/hr IV ASDIR [facility] Last Admin: 03/08/17 01:14 Dose: Not Given Meropenem 500 mg/ Dextrose 100 mls @ 400 mls/hr IVPB Q8H-IV [facility] Last Admin: 03/08/17 01:15 Dose: 400 mls/hr Insulin Aspart (Novolog Vial Sliding Scale -) 1 vial SQ ACHS [facility] PRN Reason: Protocol Last Admin: 03/08/17 06:18 Dose: Not Given Metoprolol Tartrate (Lopressor -) 50 mg PO BID [facility] Last Admin: 03/07/17 21:43 Dose: 50 mg Metoprolol Tartrate (Lopressor Injection -) 5 mg IVPUSH Q6H PRN Last Admin: 03/07/17 14:17 Dose: 5 mg Mirtazapine (Remeron -) 15 mg PO HS [facility] Last Admin: 03/07/17 21:43 Dose: 15 mg Multivitamins/Minerals/Vitamin C (Tab-A-Vit -) 1 tab PO DAILY [facility] Last Admin: 03/07/17 11:25 Dose: Not Given Spironolactone (Aldactone -) 25 mg PO DAILY [facility] Last Admin: 03/07/17 11:23 Dose: Not Given Tamsulosin HCl (Flomax -) 0.4 mg PO 1630 [facility] Last Admin: 03/07/17 15:49 Dose: 0.4 mg - Objective Vital Signs: Vital Signs Temperature 97.9 F 03/08/17 06:20 Pulse Rate 94 H 03/08/17 06:20 Respiratory Rate 18 03/08/17 06:20 Blood Pressure 124/64 03/08/17 06:20 O2 Sat by Pulse Oximetry (%) 96 03/07/17 20:48 Eyes: Yes: WNL, Conjunctiva Clear, EOM Intact HENT: Yes: WNL, Atraumatic, Normocephalic Neck: Yes: WNL, Supple, Trachea Midline Cardiovascular: Yes: WNL, Regular Rate and Rhythm Respiratory: Yes: WNL, Regular, CTA Bilaterally Gastrointestinal: Yes: WNL, Normal Bowel Sounds Genitourinary: Yes: WNL Musculoskeletal: Yes: WNL Edema: No Integumentary: Yes: WNL Neurological: Yes: Lethargy ...Motor Strength: WNL Psychiatric: Yes: WNL Labs: CBC, BMP 03/07/17 06:30 03/07/17 06:30 INR, PTT INR 1.33 (0.82-1.09) H 02/24/17 11:30 Assessment/Plan (1) Atrial fibrillation Assessment/Plan: Pt with AF; HR better controlled. On metoprolol; however, it has been difficult to give him PO meds. Now on metoprolol tartrate 5 mg IVP q 4 hrs Start digoxin maintenance dose 0.125 mg daily IVP; keep level 0.5-1.0. Code(s): I48.91 - UNSPECIFIED ATRIAL FIBRILLATION Qualifiers: Qualified Code(s): I48.91 - Unspecified atrial fibrillation (2) Open wound of left foot Assessment/Plan: gangrene; open wound f/u with vascular specialist. asked to clear the patient for angio. Patient has severe dementia , is lethargic. He cannot be further optimize. he is moderate risk for angiogram.Code(s): S91.302A - UNSPECIFIED OPEN WOUND, LEFT FOOT, INITIAL ENCOUNTER Qualifiers: Qualified Code(s): S91.302D - Unspecified open wound, left foot, subsequent encounter (3) Sepsis Code(s): A41.9 - SEPSIS, UNSPECIFIED ORGANISM Qualifiers: Qualified Code(s): A41.9 - Sepsis, unspecified organism (4) Tachycardia Assessment/Plan: AF with periods of RVR. On metoprolol and Digoxin Maintain hydration. Code(s): R00.0 - TACHYCARDIA, UNSPECIFIED (5) ACS (acute coronary syndrome) Assessment/Plan: s/p NSTEMI 12/28. Pt's family opted at that time for conservative management (no coronary angiogram). Continue medications for systolic CHF Code(s): I24.9 - ACUTE ISCHEMIC HEART DISEASE, UNSPECIFIED (6) CAD (coronary artery disease) Code(s): I25.10 - ATHSCL HEART DISEASE OF [place] CORONARY ARTERY W/O ANG PCTRS (7) Dementia Assessment/Plan: Profound dementia. Pt's daughters have, in the past, discussed options for care of their father, including hospice. Code(s): F03.90 - UNSPECIFIED DEMENTIA WITHOUT BEHAVIORAL DISTURBANCE (8) Hyperlipidemia Code(s): E78.5 - HYPERLIPIDEMIA, UNSPECIFIED (9) Infection of left foot Code(s): L08.9 - LOCAL INFECTION OF THE SKIN AND SUBCUTANEOUS TISSUE, UNSP (10) NSTEMI (non-ST elevated myocardial infarction) Code(s): I21.4 - NON-ST ELEVATION (NSTEMI) MYOCARDIAL INFARCTION (11) Diabetes Code(s): E11.9 - TYPE 2 DIABETES MELLITUS WITHOUT COMPLICATIONS (12) Normocytic anemia Code(s): D64.9 - ANEMIA, UNSPECIFIED (13) Systolic CHF Code(s): I50.20 - UNSPECIFIED SYSTOLIC (CONGESTIVE) HEART FAILURE
[2017-03-08] MEDS: MULTIVITAMINS (DAILY MVI) TABLET (FP) PO SCH (09:56)
[2017-03-08] MEDS: DONEPEZIL HCL 10 MG TABLET (FP) PO SCH (09:57)
[2017-03-08] MEDS: clonazePAM 0.5 MG TABLET PO SCH ×2 (09:57→22:24)
[2017-03-08] MEDS: METOPROLOL TARTRATE 50 MG TABLET (FP) PO SCH ×2 (09:57→22:24)
[2017-03-08] MEDS: DIGOXIN 0.125 MG TABLET (FP) PO SCH (09:57)
[2017-03-08] MEDS: CLOPIDOGREL BISULFATE 75 MG TABLET (FP) PO SCH (09:57)
[2017-03-08] MEDS: SPIRONOLACTONE 25 MG TABLET (FP) PO SCH (09:57)
[2017-03-08] MEDS: ASPIRIN 81 MG CHEWABLE TABLETS PO SCH (09:58)
[2017-03-08] MEDS: HEPARIN NA (PORCINE) 5,000 UNITS/ML 1ML VIAL SQ SCH ×2 (09:58→22:24)
[2017-03-08] MEDS ORDERED: INSULIN (NOVOLOG) ASPART 100 UNITS/ML 10ML VIAL ONE (11:50)
[2017-03-08] MEDS: TAMSULOSIN HCL 0.4 MG CAP.ER.24H (FP) PO SCH (17:54)
[2017-03-08] MEDS: MIRTAZAPINE 15 MG TABLET (FP) PO SCH (22:24)
--- NOTE | 2017-03-08 23:46 | PN ---
Progress Note, Physician History of Present Illness: Angio not done Tmax 99.5 - Current Medication List Current Medications: Active Medications Acetaminophen (Tylenol Suppository -) 650 mg [place] Q6H PRN PRN Reason: FEVER Last Admin: 03/06/17 21:56 Dose: 650 mg Aspirin (Asa -) 81 mg PO DAILY [facility] Last Admin: 03/08/17 09:58 Dose: 81 mg Clonazepam (Klonopin -) 0.5 mg PO Q12H [facility] Last Admin: 03/08/17 22:24 Dose: 0.5 mg Clopidogrel Bisulfate (Plavix -) 75 mg PO DAILY [facility] Last Admin: 03/08/17 09:57 Dose: 75 mg Digoxin (Lanoxin -) 0.125 mg PO DAILY [facility] Last Admin: 03/08/17 09:57 Dose: 0.125 mg Donepezil HCl (Aricept -) 10 mg PO DAILY [facility] Last Admin: 03/08/17 09:57 Dose: 10 mg Heparin Sodium (Porcine) (Heparin -) 5,000 unit SQ BID [facility] Last Admin: 03/08/17 22:24 Dose: 5,000 unit Dextrose/Sodium Chloride (D5-1/2ns -) 1,000 mls @ 42 mls/hr IV ASDIR [facility] Last Admin: 03/08/17 22:26 Dose: 42 mls/hr Meropenem 500 mg/ Dextrose 100 mls @ 400 mls/hr IVPB Q8H-IV [facility] Last Admin: 03/08/17 17:44 Dose: 400 mls/hr Insulin Aspart (Novolog Vial Sliding Scale -) 1 vial SQ ACHS [facility] PRN Reason: Protocol Last Admin: 03/08/17 22:25 Dose: 2 units Metoprolol Tartrate (Lopressor -) 50 mg PO BID [facility] Last Admin: 03/08/17 22:24 Dose: 50 mg Metoprolol Tartrate (Lopressor Injection -) 5 mg IVPUSH Q6H PRN Last Admin: 03/07/17 14:17 Dose: 5 mg Mirtazapine (Remeron -) 15 mg PO HS [facility] Last Admin: 03/08/17 22:24 Dose: 15 mg Multivitamins/Minerals/Vitamin C (Tab-A-Vit -) 1 tab PO DAILY [facility] Last Admin: 03/08/17 09:56 Dose: 1 tab Spironolactone (Aldactone -) 25 mg PO DAILY [facility] Last Admin: 03/08/17 09:57 Dose: 25 mg Tamsulosin HCl (Flomax -) 0.4 mg PO 1630 [facility] Last Admin: 03/08/17 17:54 Dose: 0.4 mg - Objective Vital Signs: Vital Signs Temperature 98.6 F 03/08/17 22:47 Pulse Rate 112 H 03/08/17 22:47 Respiratory Rate 18 03/08/17 22:47 Blood Pressure 109/69 03/08/17 22:47 O2 Sat by Pulse Oximetry (%) 97 03/08/17 09:00 Constitutional: Yes: No Distress Neck: Yes: WNL, Supple Cardiovascular: Yes: Tachycardia Respiratory: Yes: WNL, Regular, CTA Bilaterally Gastrointestinal: Yes: WNL, Normal Bowel Sounds, Soft Extremities: Yes: Other ((+) gangrene toes/lt heel) Labs: CBC, BMP 03/07/17 06:30 03/07/17 06:30 INR, PTT INR 1.33 (0.82-1.09) H 02/24/17 11:30 Problem List - Problems (1) Atrial fibrillation Code(s): I48.91 - UNSPECIFIED ATRIAL FIBRILLATION Qualifiers: Qualified Code(s): I48.91 - Unspecified atrial fibrillation (2) Sepsis Assessment/Plan: Angio not able to be done due to temp/tachy Cont IV meropenem as per ID Follow cultures Code(s): A41.9 - SEPSIS, UNSPECIFIED ORGANISM Qualifiers: Qualified Code(s): A41.9 - Sepsis, unspecified organism (3) Systolic CHF Assessment/Plan: Acute on chronic systolic CHF Cont spirinolactone monitor electrolytes Code(s): I50.20 - UNSPECIFIED SYSTOLIC (CONGESTIVE) HEART FAILURE (4) ACS (acute coronary syndrome) Code(s): I24.9 - ACUTE ISCHEMIC HEART DISEASE, UNSPECIFIED (5) CAD (coronary artery disease) Code(s): I25.10 - ATHSCL HEART DISEASE OF [place] CORONARY ARTERY W/O ANG PCTRS (6) Dementia Code(s): F03.90 - UNSPECIFIED DEMENTIA WITHOUT BEHAVIORAL DISTURBANCE (7) Diabetes Code(s): E11.9 - TYPE 2 DIABETES MELLITUS WITHOUT COMPLICATIONS (8) HTN (hypertension) Code(s): I10 - ESSENTIAL (PRIMARY) HYPERTENSION (9) Normocytic anemia Code(s): D64.9 - ANEMIA, UNSPECIFIED (10) Hyperlipidemia Code(s): E78.5 - HYPERLIPIDEMIA, UNSPECIFIED
[2017-03-09] MEDS: DEXTROSE 5%-0.45% SALINE 1,000 ML IV SCH (01:24)
[2017-03-09] MEDS ORDERED: PT OWN MED DRAWER 7, Y5N ONE ×2 (01:24→16:48)
[2017-03-09] MEDS: MEROPENEM 500 MG in DEXTROSE 5%-WATER - 100 ML IVPB SCH ×3 (01:26→17:41)
[2017-03-09] MEDS: INSULIN SLIDING SCALE (NOVOLOG) 1 VIAL SQ SCH ×4 (06:22→22:00)
[2017-03-09] MEDS ORDERED: INSULIN (NOVOLOG) ASPART 100 UNITS/ML 10ML VIAL ONE (07:07)
--- NOTE | 2017-03-09 09:13 | PN ---
Progress Note, Physician History of Present Illness: The patient is a 76-year-old male (b. [facility] [place]), with past medical history of Alzheimer's, severe systolic LV dysfunction, s/p NSTEMI, PAD, HLD, NIDDM, and HTN, who presents to the emergency department today with dry gangrene of his right foot. Patient presents for admission at request of Dr. Kothari, vascular, for workup and angiogram. Upon arrival to the ED, the pt. was found to have a heart rate in the 150's. Pt. cannot state if he has any chest pain. Patient has baseline dementia. T - Current Medication List Current Medications: Active Medications Acetaminophen (Tylenol Suppository -) 650 mg [place] Q6H PRN PRN Reason: FEVER Last Admin: 03/06/17 21:56 Dose: 650 mg Aspirin (Asa -) 81 mg PO DAILY [facility] Last Admin: 03/08/17 09:58 Dose: 81 mg Clonazepam (Klonopin -) 0.5 mg PO Q12H [facility] Last Admin: 03/08/17 22:24 Dose: 0.5 mg Clopidogrel Bisulfate (Plavix -) 75 mg PO DAILY [facility] Last Admin: 03/08/17 09:57 Dose: 75 mg Digoxin (Lanoxin -) 0.125 mg PO DAILY [facility] Last Admin: 03/08/17 09:57 Dose: 0.125 mg Donepezil HCl (Aricept -) 10 mg PO DAILY [facility] Last Admin: 03/08/17 09:57 Dose: 10 mg Heparin Sodium (Porcine) (Heparin -) 5,000 unit SQ BID [facility] Last Admin: 03/08/17 22:24 Dose: 5,000 unit Dextrose/Sodium Chloride (D5-1/2ns -) 1,000 mls @ 42 mls/hr IV ASDIR [facility] Last Admin: 03/09/17 01:24 Dose: Not Given Meropenem 500 mg/ Dextrose 100 mls @ 400 mls/hr IVPB Q8H-IV [facility] Last Admin: 03/09/17 01:26 Dose: 400 mls/hr Insulin Aspart (Novolog Vial Sliding Scale -) 1 vial SQ ACHS LUCY PRN Reason: Protocol Last Admin: 03/09/17 06:22 Dose: 2 units Metoprolol Tartrate (Lopressor -) 50 mg PO BID [facility] Last Admin: 03/08/17 22:24 Dose: 50 mg Metoprolol Tartrate (Lopressor Injection -) 5 mg IVPUSH Q6H PRN Last Admin: 03/07/17 14:17 Dose: 5 mg Mirtazapine (Remeron -) 15 mg PO HS [facility] Last Admin: 03/08/17 22:24 Dose: 15 mg Multivitamins/Minerals/Vitamin C (Tab-A-Vit -) 1 tab PO DAILY [facility] Last Admin: 03/08/17 09:56 Dose: 1 tab Spironolactone (Aldactone -) 25 mg PO DAILY [facility] Last Admin: 03/08/17 09:57 Dose: 25 mg Tamsulosin HCl (Flomax -) 0.4 mg PO 1630 [facility] Last Admin: 03/08/17 17:54 Dose: 0.4 mg - Objective Vital Signs: Vital Signs Temperature 98.1 F 03/09/17 06:22 Pulse Rate 116 H 03/09/17 06:22 Respiratory Rate 18 03/09/17 07:52 Blood Pressure 101/52 03/09/17 06:22 O2 Sat by Pulse Oximetry (%) 97 03/09/17 07:52 Eyes: Yes: WNL, Conjunctiva Clear, EOM Intact HENT: Yes: WNL, Atraumatic, Normocephalic Neck: Yes: WNL, Supple, Trachea Midline Cardiovascular: Yes: WNL, Pulse Irregular Respiratory: Yes: WNL, Regular, CTA Bilaterally Gastrointestinal: Yes: WNL, Normal Bowel Sounds Genitourinary: Yes: WNL Musculoskeletal: Yes: WNL Extremities: Yes: WNL Edema: No Peripheral Pulses WNL: No Integumentary: Yes: WNL Wound/Incision: Yes: Dressing Dry and Intact Neurological: Yes: WNL, Alert, Oriented ...Motor Strength: WNL Psychiatric: Yes: WNL Labs: CBC, BMP 03/07/17 06:30 03/07/17 06:30 INR, PTT INR 1.33 (0.82-1.09) H 02/24/17 11:30 Assessment/Plan (1) Atrial fibrillation Assessment/Plan: Pt with AF; HR better controlled. On metoprolol; however, it has been difficult to give him PO meds. Now on metoprolol tartrate 5 mg IVP q 4 hrs Start digoxin maintenance dose 0.125 mg daily IVP; keep level 0.5-1.0. Code(s): I48.91 - UNSPECIFIED ATRIAL FIBRILLATION Qualifiers: Qualified Code(s): I48.91 - Unspecified atrial fibrillation (2) Open wound of left foot Assessment/Plan: gangrene; open wound f/u with vascular specialist. asked to clear the patient for angio. Patient has severe dementia , is lethargic. He cannot be further optimize. he is moderate risk for angiogram.Code(s): S91.302A - UNSPECIFIED OPEN WOUND, LEFT FOOT, INITIAL ENCOUNTER Qualifiers: Qualified Code(s): S91.302D - Unspecified open wound, left foot, subsequent encounter (3) Sepsis Code(s): A41.9 - SEPSIS, UNSPECIFIED ORGANISM Qualifiers: Qualified Code(s): A41.9 - Sepsis, unspecified organism (4) Tachycardia Assessment/Plan: AF with periods of RVR. On metoprolol and Digoxin Maintain hydration. Code(s): R00.0 - TACHYCARDIA, UNSPECIFIED (5) ACS (acute coronary syndrome) Assessment/Plan: s/p NSTEMI 12/28. Pt's family opted at that time for conservative management (no coronary angiogram). Continue medications for systolic CHF Code(s): I24.9 - ACUTE ISCHEMIC HEART DISEASE, UNSPECIFIED (6) CAD (coronary artery disease) Code(s): I25.10 - ATHSCL HEART DISEASE OF [place] CORONARY ARTERY W/O ANG PCTRS (7) Dementia Assessment/Plan: Profound dementia. Pt's daughters have, in the past, discussed options for care of their father, including hospice. Code(s): F03.90 - UNSPECIFIED DEMENTIA WITHOUT BEHAVIORAL DISTURBANCE (8) Hyperlipidemia Code(s): E78.5 - HYPERLIPIDEMIA, UNSPECIFIED (9) Infection of left foot Code(s): L08.9 - LOCAL INFECTION OF THE SKIN AND SUBCUTANEOUS TISSUE, UNSP (10) NSTEMI (non-ST elevated myocardial infarction) Code(s): I21.4 - NON-ST ELEVATION (NSTEMI) MYOCARDIAL INFARCTION (11) Diabetes Code(s): E11.9 - TYPE 2 DIABETES MELLITUS WITHOUT COMPLICATIONS (12) Normocytic anemia Code(s): D64.9 - ANEMIA, UNSPECIFIED (13) Systolic CHF Code(s): I50.20 - UNSPECIFIED SYSTOLIC (CONGESTIVE) HEART FAILURE
[2017-03-09] MEDS: HEPARIN NA (PORCINE) 5,000 UNITS/ML 1ML VIAL SQ SCH ×2 (09:20→21:58)
[2017-03-09] MEDS: SPIRONOLACTONE 25 MG TABLET (FP) PO SCH (09:20)
[2017-03-09] MEDS: DONEPEZIL HCL 10 MG TABLET (FP) PO SCH (09:21)
[2017-03-09] MEDS: ASPIRIN 81 MG CHEWABLE TABLETS PO SCH (09:21)
[2017-03-09] MEDS: METOPROLOL TARTRATE 50 MG TABLET (FP) PO SCH ×2 (09:21→21:58)
[2017-03-09] MEDS: CLOPIDOGREL BISULFATE 75 MG TABLET (FP) PO SCH (09:22)
[2017-03-09] MEDS: DIGOXIN 0.125 MG TABLET (FP) PO SCH (09:22)
[2017-03-09] MEDS: MULTIVITAMINS (DAILY MVI) TABLET (FP) PO SCH (09:22)
[2017-03-09] MEDS: clonazePAM 0.5 MG TABLET PO SCH ×2 (10:29→21:58)
--- NOTE | 2017-03-09 14:43 | PN ---
Progress Note, Physician History of Present Illness: Lab reports + BC GPCCL Poorly responsive Afebrile - Current Medication List Current Medications: Active Medications Acetaminophen (Tylenol Suppository -) 650 mg [place] Q6H PRN PRN Reason: FEVER Last Admin: 03/06/17 21:56 Dose: 650 mg Aspirin (Asa -) 81 mg PO DAILY [facility] Last Admin: 03/09/17 09:21 Dose: 81 mg Clonazepam (Klonopin -) 0.5 mg PO Q12H [facility] Last Admin: 03/09/17 10:29 Dose: 0.5 mg Clopidogrel Bisulfate (Plavix -) 75 mg PO DAILY [facility] Last Admin: 03/09/17 09:22 Dose: 75 mg Digoxin (Lanoxin -) 0.125 mg PO DAILY [facility] Last Admin: 03/09/17 09:22 Dose: 0.125 mg Donepezil HCl (Aricept -) 10 mg PO DAILY [facility] Last Admin: 03/09/17 09:21 Dose: 10 mg Heparin Sodium (Porcine) (Heparin -) 5,000 unit SQ BID [facility] Last Admin: 03/09/17 09:20 Dose: 5,000 unit Dextrose/Sodium Chloride (D5-1/2ns -) 1,000 mls @ 42 mls/hr IV ASDIR [facility] Last Admin: 03/09/17 01:24 Dose: Not Given Meropenem 500 mg/ Dextrose 100 mls @ 400 mls/hr IVPB Q8H-IV [facility] Last Admin: 03/09/17 09:22 Dose: 400 mls/hr Insulin Aspart (Novolog Vial Sliding Scale -) 1 vial SQ ACHS [facility] PRN Reason: Protocol Last Admin: 03/09/17 12:07 Dose: 4 units Metoprolol Tartrate (Lopressor -) 50 mg PO BID [facility] Last Admin: 03/09/17 09:21 Dose: 50 mg Metoprolol Tartrate (Lopressor Injection -) 5 mg IVPUSH Q6H PRN Last Admin: 03/07/17 14:17 Dose: 5 mg Mirtazapine (Remeron -) 15 mg PO HS [facility] Last Admin: 03/08/17 22:24 Dose: 15 mg Multivitamins/Minerals/Vitamin C (Tab-A-Vit -) 1 tab PO DAILY [facility] Last Admin: 03/09/17 09:22 Dose: 1 tab Spironolactone (Aldactone -) 25 mg PO DAILY [facility] Last Admin: 03/09/17 09:20 Dose: 25 mg Tamsulosin HCl (Flomax -) 0.4 mg PO 1630 [facility] Last Admin: 03/08/17 17:54 Dose: 0.4 mg - Objective Vital Signs: Vital Signs Temperature 98.4 F 03/09/17 10:00 Pulse Rate 116 H 03/09/17 10:00 Respiratory Rate 20 03/09/17 10:00 Blood Pressure 128/72 03/09/17 10:00 O2 Sat by Pulse Oximetry (%) 97 03/09/17 07:52 Constitutional: Yes: No Distress Cardiovascular: Yes: Regular Rate and Rhythm, S1, S2 Respiratory: Yes: Diminished Gastrointestinal: Yes: Normal Bowel Sounds, Soft. No: Tenderness Extremities: Yes: Other (+ gangrene) Labs: CBC, BMP 03/07/17 06:30 03/07/17 06:30 INR, PTT INR 1.33 (0.82-1.09) H 02/24/17 11:30 Assessment/Plan +BC potential skin source S/P high grade fever Gangrene Hx ESBL Repeat BC x 2 Empiric Vanco Continue meropenem
[2017-03-09] MEDS: TAMSULOSIN HCL 0.4 MG CAP.ER.24H (FP) PO SCH ×2 (16:20→16:21)
[2017-03-09] MEDS: VANCOMYCIN 1 GRAM (PRE-DOCKED) 250 ML IVPB SCH (16:20)
--- NOTE | 2017-03-09 17:39 | PN ---
Progress Note, Physician History of Present Illness: Pt afebrile but still tachy - Current Medication List Current Medications: Active Medications Acetaminophen (Tylenol Suppository -) 650 mg [place] Q6H PRN PRN Reason: FEVER Last Admin: 03/06/17 21:56 Dose: 650 mg Aspirin (Asa -) 81 mg PO DAILY [facility] Last Admin: 03/09/17 09:21 Dose: 81 mg Clonazepam (Klonopin -) 0.5 mg PO Q12H [facility] Last Admin: 03/09/17 10:29 Dose: 0.5 mg Clopidogrel Bisulfate (Plavix -) 75 mg PO DAILY [facility] Last Admin: 03/09/17 09:22 Dose: 75 mg Digoxin (Lanoxin -) 0.125 mg PO DAILY [facility] Last Admin: 03/09/17 09:22 Dose: 0.125 mg Donepezil HCl (Aricept -) 10 mg PO DAILY [facility] Last Admin: 03/09/17 09:21 Dose: 10 mg Heparin Sodium (Porcine) (Heparin -) 5,000 unit SQ BID [facility] Last Admin: 03/09/17 09:20 Dose: 5,000 unit Dextrose/Sodium Chloride (D5-1/2ns -) 1,000 mls @ 42 mls/hr IV ASDIR [facility] Last Admin: 03/09/17 01:24 Dose: Not Given Meropenem 500 mg/ Dextrose 100 mls @ 400 mls/hr IVPB Q8H-IV [facility] Last Admin: 03/09/17 09:22 Dose: 400 mls/hr Vancomycin HCl (Vancomycin (Pre-Docked)) 250 mls @ 200 mls/hr IVPB Q12H [facility] Last Admin: 03/09/17 16:20 Dose: 200 mls/hr Insulin Aspart (Novolog Vial Sliding Scale -) 1 vial SQ ACHS [facility] PRN Reason: Protocol Last Admin: 03/09/17 12:07 Dose: 4 units Metoprolol Tartrate (Lopressor -) 50 mg PO BID [facility] Last Admin: 03/09/17 09:21 Dose: 50 mg Metoprolol Tartrate (Lopressor Injection -) 5 mg IVPUSH Q6H PRN Last Admin: 03/07/17 14:17 Dose: 5 mg Mirtazapine (Remeron -) 15 mg PO HS [facility] Last Admin: 03/08/17 22:24 Dose: 15 mg Multivitamins/Minerals/Vitamin C (Tab-A-Vit -) 1 tab PO DAILY [facility] Last Admin: 03/09/17 09:22 Dose: 1 tab Spironolactone (Aldactone -) 25 mg PO DAILY [facility] Last Admin: 03/09/17 09:20 Dose: 25 mg Tamsulosin HCl (Flomax -) 0.4 mg PO 1630 [facility] Last Admin: 03/09/17 16:21 Dose: Not Given - Objective Vital Signs: Vital Signs Temperature 98.4 F 03/09/17 15:27 Pulse Rate 91 H 03/09/17 15:27 Respiratory Rate 20 03/09/17 15:27 Blood Pressure 97/53 03/09/17 15:27 O2 Sat by Pulse Oximetry (%) 97 03/09/17 07:52 Constitutional: Yes: No Distress Neck: Yes: WNL, Supple Cardiovascular: Yes: Tachycardia Respiratory: Yes: WNL, Regular, CTA Bilaterally Gastrointestinal: Yes: WNL, Normal Bowel Sounds, Soft Extremities: Yes: Other ((+) gangrene toes/lt heel) Labs: CBC, BMP 03/07/17 06:30 03/07/17 06:30 INR, PTT INR 1.33 (0.82-1.09) H 02/24/17 11:30 Problem List - Problems (1) Sepsis Assessment/Plan: Pt now on IV vanco/meropenem BC pending Check wbc in am Gangrene: angio on hold due to fever/tachy Code(s): A41.9 - SEPSIS, UNSPECIFIED ORGANISM Qualifiers: Qualified Code(s): A41.9 - Sepsis, unspecified organism (2) Atrial fibrillation Assessment/Plan: Pt still tachy but improved Cont tele Cont metoprolol/dig Check dig level in am IV metoprolol prn NO AC due to h/o bleeding Code(s): I48.91 - UNSPECIFIED ATRIAL FIBRILLATION Qualifiers: Qualified Code(s): I48.91 - Unspecified atrial fibrillation (3) Systolic CHF Assessment/Plan: Acute on chronic systolic CHF Cont spirinolactone monitor electrolytes Code(s): I50.20 - UNSPECIFIED SYSTOLIC (CONGESTIVE) HEART FAILURE (4) ACS (acute coronary syndrome) Assessment/Plan: Cont asa/plavix Code(s): I24.9 - ACUTE ISCHEMIC HEART DISEASE, UNSPECIFIED (5) CAD (coronary artery disease) Code(s): I25.10 - ATHSCL HEART DISEASE OF [place] CORONARY ARTERY W/O ANG PCTRS (6) Dementia Assessment/Plan: Cont aricept Code(s): F03.90 - UNSPECIFIED DEMENTIA WITHOUT BEHAVIORAL DISTURBANCE (7) Diabetes Assessment/Plan: Cont sliding scale w/ novolog Code(s): E11.9 - TYPE 2 DIABETES MELLITUS WITHOUT COMPLICATIONS (8) HTN (hypertension) Assessment/Plan: BP stable Cont metoprolol Code(s): I10 - ESSENTIAL (PRIMARY) HYPERTENSION (9) Normocytic anemia Assessment/Plan: Monitor H/H Code(s): D64.9 - ANEMIA, UNSPECIFIED (10) Hyperlipidemia Code(s): E78.5 - HYPERLIPIDEMIA, UNSPECIFIED
[2017-03-09] MEDS: MIRTAZAPINE 15 MG TABLET (FP) PO SCH (21:58)
[2017-03-10] MEDS ORDERED: PT OWN MED DRAWER 7, Y5N ONE ×2 (00:22→16:35)
[2017-03-10] MEDS: MEROPENEM 500 MG in DEXTROSE 5%-WATER - 100 ML IVPB SCH ×3 (01:09→17:00)
[2017-03-10] MEDS: VANCOMYCIN 1 GRAM (PRE-DOCKED) 250 ML IVPB SCH ×2 (02:10→14:55)
[2017-03-10] MEDS: DEXTROSE 5%-0.45% SALINE 1,000 ML IV SCH (06:36)
[2017-03-10] MEDS: INSULIN SLIDING SCALE (NOVOLOG) 1 VIAL SQ SCH ×4 (06:42→22:05)
[2017-03-10 08:04] LABS: BASOPHIL 0.7 % (0-2.0); EOSINOPHIL 0.6 % (0-4.5); MCH 25.8 pg (25.7-33.7); MCHC 31.3 g/dl (32.0-35.9); MEAN CELL VOLUME 82.3 fl (80-96); MEAN PLT VOLUME 7.9 fl (7.5-11.1); NEUTROPHILS 80.7 % (42.8-82.8); PLATELET COUNT 438 K/MM3 (134-434); RDW 20.3 % (11.9-15.9)
[2017-03-10 08:25] LABS: ALBUMIN 1.7 g/dl (3.4-5.0); ANION GAP 8 (8-16); BILIRUBIN,TOTAL 0.4 mg/dL (0.2-1.0); CALCIUM 8.4 mg/dL (8.5-10.1); CO2 31 mmol/L (21-32); CREATININE 0.5 mg/dL (0.7-1.3); GLUCOSE,RANDOM 193 mg/dL (74-106); SGOT/AST 6 U/L (15-37); SGPT/ALT 9 U/L (12-78); TOT PROT 6.2 g/dl (6.4-8.2)
[2017-03-10 08:37] LABS: ALK PHOS 73 U/L (45-117)
[2017-03-10] MEDS: SPIRONOLACTONE 25 MG TABLET (FP) PO SCH (09:05)
[2017-03-10] MEDS: DIGOXIN 0.125 MG TABLET (FP) PO SCH (09:05)
[2017-03-10] MEDS: METOPROLOL TARTRATE 50 MG TABLET (FP) PO SCH ×2 (09:05→23:05)
[2017-03-10] MEDS: DONEPEZIL HCL 10 MG TABLET (FP) PO SCH (09:05)
[2017-03-10] MEDS: HEPARIN NA (PORCINE) 5,000 UNITS/ML 1ML VIAL SQ SCH ×2 (09:05→23:05)
[2017-03-10] MEDS: ASPIRIN 81 MG CHEWABLE TABLETS PO SCH (09:06)
[2017-03-10] MEDS: CLOPIDOGREL BISULFATE 75 MG TABLET (FP) PO SCH (09:06)
[2017-03-10] MEDS: MULTIVITAMINS (DAILY MVI) TABLET (FP) PO SCH (09:06)
--- NOTE | 2017-03-10 09:40 | PN ---
Progress Note, Physician History of Present Illness: The patient is a 76-year-old male (b. 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 Patient presents for admission at request of Dr. Kothari, vascular, for workup and angiogram. Upon arrival to the ED, the pt. was found to have a heart rate in the 150's. Pt. cannot state if he has any chest pain. Patient has baseline dementia. T - Current Medication List Current Medications: Active Medications Acetaminophen (Tylenol Suppository -) 650 mg SC Q6H PRN PRN Reason: FEVER Last Admin: 03/06/17 21:56 Dose: 650 mg Aspirin (Asa -) 81 mg PO DAILY [facility] Last Admin: 03/10/17 09:06 Dose: 81 mg Clonazepam (Klonopin -) 0.5 mg PO Q12H [facility] Last Admin: 03/09/17 21:58 Dose: 0.5 mg Clopidogrel Bisulfate (Plavix -) 75 mg PO DAILY [facility] Last Admin: 03/10/17 09:06 Dose: 75 mg Digoxin (Lanoxin -) 0.125 mg PO DAILY [facility] Last Admin: 03/10/17 09:05 Dose: 0.125 mg Donepezil HCl (Aricept -) 10 mg PO DAILY [facility] Last Admin: 03/10/17 09:05 Dose: 10 mg Heparin Sodium (Porcine) (Heparin -) 5,000 unit SQ BID [facility] Last Admin: 03/10/17 09:05 Dose: 5,000 unit Dextrose/Sodium Chloride (D5-1/2ns -) 1,000 mls @ 42 mls/hr IV ASDIR [facility] Last Admin: 03/10/17 06:36 Dose: 42 mls/hr Meropenem 500 mg/ Dextrose 100 mls @ 400 mls/hr IVPB Q8H-IV [facility] Last Admin: 03/10/17 01:09 Dose: 400 mls/hr Vancomycin HCl (Vancomycin (Pre-Docked)) 250 mls @ 200 mls/hr IVPB Q12H [facility] Last Admin: 03/10/17 02:10 Dose: 200 mls/hr Insulin Aspart (Novolog Vial Sliding Scale -) 1 vial SQ ACHS [facility] PRN Reason: Protocol Last Admin: 03/10/17 06:42 Dose: 2 units Metoprolol Tartrate (Lopressor -) 50 mg PO BID [facility] Last Admin: 03/10/17 09:05 Dose: 50 mg Metoprolol Tartrate (Lopressor Injection -) 5 mg IVPUSH Q6H PRN Last Admin: 03/07/17 14:17 Dose: 5 mg Mirtazapine (Remeron -) 15 mg PO HS [facility] Last Admin: 03/09/17 21:58 Dose: 15 mg Multivitamins/Minerals/Vitamin C (Tab-A-Vit -) 1 tab PO DAILY [facility] Last Admin: 03/10/17 09:06 Dose: 1 tab Spironolactone (Aldactone -) 25 mg PO DAILY [facility] Last Admin: 03/10/17 09:05 Dose: 25 mg Tamsulosin HCl (Flomax -) 0.4 mg PO 1630 [facility] Last Admin: 03/09/17 16:21 Dose: Not Given - Objective Vital Signs: Vital Signs Temperature 98.3 F 03/10/17 06:44 Pulse Rate 98 H 03/10/17 09:05 Respiratory Rate 18 03/10/17 08:14 Blood Pressure 108/62 03/10/17 06:44 O2 Sat by Pulse Oximetry (%) 97 03/10/17 08:14 Eyes: Yes: WNL, Conjunctiva Clear, EOM Intact HENT: Yes: WNL, Atraumatic, Normocephalic Neck: Yes: WNL, Supple, Trachea Midline Cardiovascular: Yes: WNL, Regular Rate and Rhythm Respiratory: Yes: WNL, Regular, CTA Bilaterally Gastrointestinal: Yes: WNL, Normal Bowel Sounds Genitourinary: Yes: WNL Musculoskeletal: Yes: WNL Extremities: Yes: WNL Edema: No Integumentary: Yes: WNL Neurological: Yes: WNL, Alert, Oriented ...Motor Strength: WNL Psychiatric: Yes: WNL Labs: CBC, BMP 03/10/17 07:45 03/10/17 07:45 INR, PTT INR 1.33 (0.82-1.09) H 02/24/17 11:30 Assessment/Plan (1) Atrial fibrillation Assessment/Plan: Pt with AF; HR better controlled. On metoprolol; however, it has been difficult to give him PO meds. Now on metoprolol tartrate 5 mg IVP q 4 hrs Start digoxin maintenance dose 0.125 mg daily IVP; keep level 0.5-1.0. Code(s): I48.91 - UNSPECIFIED ATRIAL FIBRILLATION Qualifiers: Qualified Code(s): I48.91 - Unspecified atrial fibrillation (2) Open wound of left foot Assessment/Plan: gangrene; open wound f/u with vascular specialist. asked to clear the patient for angio. Patient has severe dementia , is lethargic. He cannot be further optimize. he is moderate risk for angiogram.Code(s): S91.302A - UNSPECIFIED OPEN WOUND, LEFT FOOT, INITIAL ENCOUNTER Qualifiers: Qualified Code(s): S91.302D - Unspecified open wound, left foot, subsequent encounter (3) Sepsis Code(s): A41.9 - SEPSIS, UNSPECIFIED ORGANISM Qualifiers: Qualified Code(s): A41.9 - Sepsis, unspecified organism (4) Tachycardia Assessment/Plan: AF with periods of RVR. On metoprolol and Digoxin Maintain hydration. Code(s): R00.0 - TACHYCARDIA, UNSPECIFIED (5) ACS (acute coronary syndrome) Assessment/Plan: s/p NSTEMI 12/28. Pt's family opted at that time for conservative management (no coronary angiogram). Continue medications for systolic CHF Code(s): I24.9 - ACUTE ISCHEMIC HEART DISEASE, UNSPECIFIED (6) CAD (coronary artery disease) Code(s): I25.10 - ATHSCL HEART DISEASE OF [place] CORONARY ARTERY W/O ANG PCTRS (7) Dementia Assessment/Plan: Profound dementia. Pt's daughters have, in the past, discussed options for care of their father, including hospice. Code(s): F03.90 - UNSPECIFIED DEMENTIA WITHOUT BEHAVIORAL DISTURBANCE (8) Hyperlipidemia Code(s): E78.5 - HYPERLIPIDEMIA, UNSPECIFIED (9) Infection of left foot Code(s): L08.9 - LOCAL INFECTION OF THE SKIN AND SUBCUTANEOUS TISSUE, UNSP (10) NSTEMI (non-ST elevated myocardial infarction) Code(s): I21.4 - NON-ST ELEVATION (NSTEMI) MYOCARDIAL INFARCTION (11) Diabetes Code(s): E11.9 - TYPE 2 DIABETES MELLITUS WITHOUT COMPLICATIONS (12) Normocytic anemia Code(s): D64.9 - ANEMIA, UNSPECIFIED (13) Systolic CHF Code(s): I50.20 - UNSPECIFIED SYSTOLIC (CONGESTIVE) HEART FAILURE
[2017-03-10] MEDS: clonazePAM 0.5 MG TABLET PO SCH ×2 (09:47→23:05)
[2017-03-10] MEDS ORDERED: INSULIN (NOVOLOG) ASPART 100 UNITS/ML 10ML VIAL ONE (12:31)
--- NOTE | 2017-03-10 13:16 | PN ---
Progress Note, Physician History of Present Illness: More awake No acute distress Afebrile - Current Medication List Current Medications: Active Medications Acetaminophen (Tylenol Suppository -) 650 mg [place] Q6H PRN PRN Reason: FEVER Last Admin: 03/06/17 21:56 Dose: 650 mg Aspirin (Asa -) 81 mg PO DAILY [facility] Last Admin: 03/10/17 09:06 Dose: 81 mg Clonazepam (Klonopin -) 0.5 mg PO Q12H [facility] Last Admin: 03/10/17 09:47 Dose: 0.5 mg Clopidogrel Bisulfate (Plavix -) 75 mg PO DAILY [facility] Last Admin: 03/10/17 09:06 Dose: 75 mg Digoxin (Lanoxin -) 0.125 mg PO DAILY [facility] Last Admin: 03/10/17 09:05 Dose: 0.125 mg Donepezil HCl (Aricept -) 10 mg PO DAILY [facility] Last Admin: 03/10/17 09:05 Dose: 10 mg Heparin Sodium (Porcine) (Heparin -) 5,000 unit SQ BID [facility] Last Admin: 03/10/17 09:05 Dose: 5,000 unit Dextrose/Sodium Chloride (D5-1/2ns -) 1,000 mls @ 42 mls/hr IV ASDIR [facility] Last Admin: 03/10/17 06:36 Dose: 42 mls/hr Meropenem 500 mg/ Dextrose 100 mls @ 400 mls/hr IVPB Q8H-IV [facility] Last Admin: 03/10/17 09:46 Dose: 400 mls/hr Vancomycin HCl (Vancomycin (Pre-Docked)) 250 mls @ 200 mls/hr IVPB Q12H [facility] Last Admin: 03/10/17 02:10 Dose: 200 mls/hr Insulin Aspart (Novolog Vial Sliding Scale -) 1 vial SQ ACHS [facility] PRN Reason: Protocol Last Admin: 03/10/17 12:45 Dose: 4 units Metoprolol Tartrate (Lopressor -) 50 mg PO BID [facility] Last Admin: 03/10/17 09:05 Dose: 50 mg Metoprolol Tartrate (Lopressor Injection -) 5 mg IVPUSH Q6H PRN Last Admin: 03/07/17 14:17 Dose: 5 mg Mirtazapine (Remeron -) 15 mg PO HS [facility] Last Admin: 03/09/17 21:58 Dose: 15 mg Multivitamins/Minerals/Vitamin C (Tab-A-Vit -) 1 tab PO DAILY [facility] Last Admin: 03/10/17 09:06 Dose: 1 tab Spironolactone (Aldactone -) 25 mg PO DAILY [facility] Last Admin: 03/10/17 09:05 Dose: 25 mg Tamsulosin HCl (Flomax -) 0.4 mg PO 1630 [facility] Last Admin: 03/09/17 16:21 Dose: Not Given - Objective Vital Signs: Vital Signs Temperature 98.3 F 03/10/17 06:44 Pulse Rate 98 H 03/10/17 09:05 Respiratory Rate 18 03/10/17 08:14 Blood Pressure 108/62 03/10/17 06:44 O2 Sat by Pulse Oximetry (%) 97 03/10/17 08:14 Constitutional: Yes: No Distress Eyes: Yes: Conjunctiva Clear Cardiovascular: Yes: Regular Rate and Rhythm, S1, S2 Respiratory: Yes: Diminished Gastrointestinal: Yes: Normal Bowel Sounds, Soft. No: Tenderness Labs: CBC, BMP 03/10/17 07:45 03/10/17 07:45 INR, PTT INR 1.33 (0.82-1.09) H 02/24/17 11:30 Assessment/Plan +BC potential skin source S/P high grade fever Gangrene Hx ESBL Repeat BC x 2 pending Empiric Vanco Continue meropenem
[2017-03-10] MEDS: TAMSULOSIN HCL 0.4 MG CAP.ER.24H (FP) PO SCH (16:56)
--- NOTE | 2017-03-10 19:56 | PN ---
Progress Note (short form) - Note Progress Note: [facility] Pt started on antibiotics on friday. Repeat blood cx x 2 pending If negative , can then proceed with angiogram. Will be on standby Devan bellamy dO
--- NOTE | 2017-03-10 23:02 | PN ---
Progress Note, Physician History of Present Illness: Pt afebrile - Current Medication List Current Medications: Active Medications Acetaminophen (Tylenol Suppository -) 650 mg [place] Q6H PRN PRN Reason: FEVER Last Admin: 03/06/17 21:56 Dose: 650 mg Aspirin (Asa -) 81 mg PO DAILY [facility] Last Admin: 03/10/17 09:06 Dose: 81 mg Clonazepam (Klonopin -) 0.5 mg PO Q12H [facility] Last Admin: 03/10/17 09:47 Dose: 0.5 mg Clopidogrel Bisulfate (Plavix -) 75 mg PO DAILY [facility] Last Admin: 03/10/17 09:06 Dose: 75 mg Digoxin (Lanoxin -) 0.125 mg PO DAILY [facility] Last Admin: 03/10/17 09:05 Dose: 0.125 mg Donepezil HCl (Aricept -) 10 mg PO DAILY [facility] Last Admin: 03/10/17 09:05 Dose: 10 mg Heparin Sodium (Porcine) (Heparin -) 5,000 unit SQ BID [facility] Last Admin: 03/10/17 09:05 Dose: 5,000 unit Dextrose/Sodium Chloride (D5-1/2ns -) 1,000 mls @ 42 mls/hr IV ASDIR [facility] Last Admin: 03/10/17 06:36 Dose: 42 mls/hr Meropenem 500 mg/ Dextrose 100 mls @ 400 mls/hr IVPB Q8H-IV [facility] Last Admin: 03/10/17 17:00 Dose: 400 mls/hr Vancomycin HCl (Vancomycin (Pre-Docked)) 250 mls @ 200 mls/hr IVPB Q12H [facility] Last Admin: 03/10/17 14:55 Dose: 200 mls/hr Insulin Aspart (Novolog Vial Sliding Scale -) 1 vial SQ ACHS [facility] PRN Reason: Protocol Last Admin: 03/10/17 22:05 Dose: Not Given Metoprolol Tartrate (Lopressor -) 50 mg PO BID [facility] Last Admin: 03/10/17 09:05 Dose: 50 mg Metoprolol Tartrate (Lopressor Injection -) 5 mg IVPUSH Q6H PRN Last Admin: 03/07/17 14:17 Dose: 5 mg Mirtazapine (Remeron -) 15 mg PO HS [facility] Last Admin: 03/09/17 21:58 Dose: 15 mg Multivitamins/Minerals/Vitamin C (Tab-A-Vit -) 1 tab PO DAILY [facility] Last Admin: 03/10/17 09:06 Dose: 1 tab Spironolactone (Aldactone -) 25 mg PO DAILY [facility] Last Admin: 03/10/17 09:05 Dose: 25 mg Tamsulosin HCl (Flomax -) 0.4 mg PO 1630 [facility] Last Admin: 03/10/17 16:56 Dose: 0.4 mg - Objective Vital Signs: Vital Signs Temperature 96.2 F L 03/10/17 14:00 Pulse Rate 76 03/10/17 14:00 Respiratory Rate 16 03/10/17 14:00 Blood Pressure 143/67 03/10/17 14:00 O2 Sat by Pulse Oximetry (%) 97 03/10/17 08:14 Neck: Yes: WNL, Supple Cardiovascular: Yes: Tachycardia Respiratory: Yes: WNL, Regular, CTA Bilaterally Gastrointestinal: Yes: WNL, Normal Bowel Sounds, Soft Extremities: Yes: WNL Edema: No Labs: CBC, BMP 03/10/17 07:45 03/10/17 07:45 INR, PTT INR 1.33 (0.82-1.09) H 02/24/17 11:30 Problem List - Problems (1) Sepsis Assessment/Plan: Angio not able to be done due to temp/tachy Cont IV meropenem/vanco Follow cultures wc remain negative Pt afebrile today WBC slightly elevated Code(s): A41.9 - SEPSIS, UNSPECIFIED ORGANISM Qualifiers: Qualified Code(s): A41.9 - Sepsis, unspecified organism (2) Atrial fibrillation Assessment/Plan: Heart rate improving Cont BB/dig Dig level subtherapeutic As per cardio Code(s): I48.91 - UNSPECIFIED ATRIAL FIBRILLATION Qualifiers: Qualified Code(s): I48.91 - Unspecified atrial fibrillation (3) Systolic CHF Assessment/Plan: Acute on chronic systolic CHF Cont spirinolactone monitor electrolytes Code(s): I50.20 - UNSPECIFIED SYSTOLIC (CONGESTIVE) HEART FAILURE (4) ACS (acute coronary syndrome) Assessment/Plan: Cont asa/plavix Code(s): I24.9 - ACUTE ISCHEMIC HEART DISEASE, UNSPECIFIED (5) CAD (coronary artery disease) Code(s): I25.10 - ATHSCL HEART DISEASE OF [place] CORONARY ARTERY W/O ANG PCTRS (6) Dementia Assessment/Plan: Cont aricept Code(s): F03.90 - UNSPECIFIED DEMENTIA WITHOUT BEHAVIORAL DISTURBANCE (7) Diabetes Code(s): E11.9 - TYPE 2 DIABETES MELLITUS WITHOUT COMPLICATIONS (8) HTN (hypertension) Code(s): I10 - ESSENTIAL (PRIMARY) HYPERTENSION (9) Normocytic anemia Code(s): D64.9 - ANEMIA, UNSPECIFIED (10) Hyperlipidemia Code(s): E78.5 - HYPERLIPIDEMIA, UNSPECIFIED
[2017-03-10] MEDS: MIRTAZAPINE 15 MG TABLET (FP) PO SCH (23:05)
[2017-03-11] MEDS: DEXTROSE 5%-0.45% SALINE 1,000 ML IV SCH (01:06)
[2017-03-11] MEDS ORDERED: PT OWN MED DRAWER 7, Y5N ONE ×2 (01:07→09:32)
[2017-03-11] MEDS: MEROPENEM 500 MG in DEXTROSE 5%-WATER - 100 ML IVPB SCH ×2 (01:12→09:38)
[2017-03-11] MEDS: VANCOMYCIN 1 GRAM (PRE-DOCKED) 250 ML IVPB SCH (02:01)
[2017-03-11] MEDS ORDERED: INSULIN (NOVOLOG) ASPART 100 UNITS/ML 10ML VIAL ONE (06:42)
[2017-03-11] MEDS: INSULIN SLIDING SCALE (NOVOLOG) 1 VIAL SQ SCH ×4 (06:45→21:43)
[2017-03-11 07:06] LABS: BASOPHIL 0.4 % (0-2.0); EOSINOPHIL 0.8 % (0-4.5); MCH 26.1 pg (25.7-33.7); MCHC 31.8 g/dl (32.0-35.9); MEAN CELL VOLUME 82.1 fl (80-96); MEAN PLT VOLUME 7.8 fl (7.5-11.1); NEUTROPHILS 78.6 % (42.8-82.8); PLATELET COUNT 427 K/MM3 (134-434); WHITE BLOOD COUNT 12.5 K/mm3 (4.0-10.0)
[2017-03-11] MEDS: DIGOXIN 0.125 MG TABLET (FP) PO SCH (09:38)
[2017-03-11] MEDS: METOPROLOL TARTRATE 50 MG TABLET (FP) PO SCH ×2 (09:38→21:44)
[2017-03-11] MEDS: CLOPIDOGREL BISULFATE 75 MG TABLET (FP) PO SCH (09:38)
[2017-03-11] MEDS: MULTIVITAMINS (DAILY MVI) TABLET (FP) PO SCH (09:38)
[2017-03-11] MEDS: SPIRONOLACTONE 25 MG TABLET (FP) PO SCH (09:38)
[2017-03-11] MEDS: ASPIRIN 81 MG CHEWABLE TABLETS PO SCH (09:38)
[2017-03-11] MEDS: DONEPEZIL HCL 10 MG TABLET (FP) PO SCH (09:38)
[2017-03-11] MEDS: HEPARIN NA (PORCINE) 5,000 UNITS/ML 1ML VIAL SQ SCH ×2 (09:44→21:44)
[2017-03-11] MEDS: clonazePAM 0.5 MG TABLET PO SCH ×2 (10:45→21:43)
--- NOTE | 2017-03-11 12:22 | PN ---
Progress Note (short form) - Note Progress Note: no fevers Vital Signs Period Temp Pulse Resp BP Sys/Mcdaniel Pulse Ox Last 24 Hr 96.2 F-98.5 F 76-119 16-18 104-143/53-77 98 cor-rrr lungs clear abd soft,nt ext dry gangrene of toes and heel arndt CBC, BMP 03/11/17 06:30 03/10/17 07:45 Microbiology 03/07/17 01:35 Blood - Peripheral Venous Blood Culture - Final Staphylococcus Epidermidis 03/07/17 01:35 Blood - Peripheral Venous Blood Culture - Preliminary NO GROWTH OBTAINED AFTER 96 HOURS, INCUBATION TO CONTINUE FOR 1 DAYS. 03/09/17 14:50 Blood - Peripheral Venous Blood Culture - Preliminary NO GROWTH OBTAINED AFTER 24 HOURS, INCUBATION TO CONTINUE FOR 4 DAYS. 03/09/17 14:50 Blood - Peripheral Venous Blood Culture - Preliminary NO GROWTH OBTAINED AFTER 24 HOURS, INCUBATION TO CONTINUE FOR 4 DAYS. 03/04/17 23:13 Blood - Peripheral Venous Blood Culture - Final NO GROWTH AFTER 5 DAYS INCUBATION 03/04/17 23:13 Blood - Peripheral Venous Blood Culture - Final NO GROWTH AFTER 5 DAYS INCUBATION 03/07/17 01:35 Urine - Urine Arndt Urine Culture - Final NO GROWTH OBTAINED 02/24/17 12:00 Blood - Peripheral Venous Blood Culture - Final NO GROWTH AFTER 5 DAYS INCUBATION 02/24/17 12:00 Blood - Peripheral Venous Blood Culture - Final NO GROWTH AFTER 5 DAYS INCUBATION 02/25/17 23:40 Urine - Urine Arndt Urine Culture - Final Yeast Like Organism 02/24/17 13:05 Urine - Urine - Catheterized Urine Culture - Final Yeast Like Organism a/p fevers- urine culture negative, d/c meropenem one of four blood cultures with staph epi with repeat blood cultures negative, d /c vancomycin dry gangrene- angiogram per vascular cad rapid afib recent treatment of fungal uti history of resistant organisms
[2017-03-11] MEDS: TAMSULOSIN HCL 0.4 MG CAP.ER.24H (FP) PO SCH (16:37)
[2017-03-11] MEDS: MIRTAZAPINE 15 MG TABLET (FP) PO SCH (21:43)
--- NOTE | 2017-03-11 22:17 | PN ---
Progress Note, Physician History of Present Illness: Pt afebrile - Current Medication List Current Medications: Active Medications Acetaminophen (Tylenol Suppository -) 650 mg [place] Q6H PRN PRN Reason: FEVER Last Admin: 03/06/17 21:56 Dose: 650 mg Aspirin (Asa -) 81 mg PO DAILY [facility] Last Admin: 03/11/17 09:38 Dose: 81 mg Clonazepam (Klonopin -) 0.5 mg PO BID [facility] Last Admin: 03/11/17 21:43 Dose: 0.5 mg Clopidogrel Bisulfate (Plavix -) 75 mg PO DAILY [facility] Last Admin: 03/11/17 09:38 Dose: 75 mg Digoxin (Lanoxin -) 0.125 mg PO DAILY [facility] Last Admin: 03/11/17 09:38 Dose: 0.125 mg Donepezil HCl (Aricept -) 10 mg PO DAILY [facility] Last Admin: 03/11/17 09:38 Dose: 10 mg Heparin Sodium (Porcine) (Heparin -) 5,000 unit SQ BID [facility] Last Admin: 03/11/17 21:44 Dose: 5,000 unit Dextrose/Sodium Chloride (D5-1/2ns -) 1,000 mls @ 42 mls/hr IV ASDIR [facility] Last Admin: 03/11/17 01:06 Dose: Not Given Insulin Aspart (Novolog Vial Sliding Scale -) 1 vial SQ ACHS [facility] PRN Reason: Protocol Last Admin: 03/11/17 21:43 Dose: 2 units Metoprolol Tartrate (Lopressor -) 50 mg PO BID [facility] Last Admin: 03/11/17 21:44 Dose: 50 mg Metoprolol Tartrate (Lopressor Injection -) 5 mg IVPUSH Q6H PRN Last Admin: 03/07/17 14:17 Dose: 5 mg Mirtazapine (Remeron -) 15 mg PO HS [facility] Last Admin: 03/11/17 21:43 Dose: 15 mg Multivitamins/Minerals/Vitamin C (Tab-A-Vit -) 1 tab PO DAILY [facility] Last Admin: 03/11/17 09:38 Dose: 1 tab Spironolactone (Aldactone -) 25 mg PO DAILY [facility] Last Admin: 03/11/17 09:38 Dose: 25 mg Tamsulosin HCl (Flomax -) 0.4 mg PO 1630 [facility] Last Admin: 03/11/17 16:37 Dose: Not Given - Objective Vital Signs: Vital Signs Temperature 97.9 F 03/11/17 18:00 Pulse Rate 108 H 03/11/17 18:00 Respiratory Rate 18 03/11/17 18:00 Blood Pressure 123/70 03/11/17 18:00 O2 Sat by Pulse Oximetry (%) 95 03/11/17 09:00 Neck: Yes: WNL, Supple Cardiovascular: Yes: Tachycardia Respiratory: Yes: WNL, Regular, CTA Bilaterally Gastrointestinal: Yes: WNL, Normal Bowel Sounds, Soft Extremities: Yes: Other ((+) gangrene toes/lt heel) Edema: No Labs: CBC, BMP 03/11/17 06:30 03/10/17 07:45 INR, PTT INR 1.33 (0.82-1.09) H 02/24/17 11:30 Problem List - Problems (1) Sepsis Assessment/Plan: IV antibxs have been dc'ed Pt now off antibxs Repeat BC remain negative Angio as per vasc for gangrene Code(s): A41.9 - SEPSIS, UNSPECIFIED ORGANISM Qualifiers: Qualified Code(s): A41.9 - Sepsis, unspecified organism (2) Atrial fibrillation Assessment/Plan: Heart rate improving Cont BB/dig Dig level subtherapeutic Code(s): I48.91 - UNSPECIFIED ATRIAL FIBRILLATION Qualifiers: Qualified Code(s): I48.91 - Unspecified atrial fibrillation (3) Systolic CHF Code(s): I50.20 - UNSPECIFIED SYSTOLIC (CONGESTIVE) HEART FAILURE (4) ACS (acute coronary syndrome) Code(s): I24.9 - ACUTE ISCHEMIC HEART DISEASE, UNSPECIFIED (5) CAD (coronary artery disease) Code(s): I25.10 - ATHSCL HEART DISEASE OF [place] CORONARY ARTERY W/O ANG PCTRS (6) Dementia Code(s): F03.90 - UNSPECIFIED DEMENTIA WITHOUT BEHAVIORAL DISTURBANCE (7) Diabetes Code(s): E11.9 - TYPE 2 DIABETES MELLITUS WITHOUT COMPLICATIONS (8) HTN (hypertension) Code(s): I10 - ESSENTIAL (PRIMARY) HYPERTENSION (9) Normocytic anemia Code(s): D64.9 - ANEMIA, UNSPECIFIED (10) Hyperlipidemia Code(s): E78.5 - HYPERLIPIDEMIA, UNSPECIFIED
[2017-03-12] MEDS: INSULIN SLIDING SCALE (NOVOLOG) 1 VIAL SQ SCH ×4 (06:25→21:04)
[2017-03-12 07:18] LABS: BASOPHIL 0.6 % (0-2.0); EOSINOPHIL 0.7 % (0-4.5); MCH 25.8 pg (25.7-33.7); MCHC 31.7 g/dl (32.0-35.9); MEAN CELL VOLUME 81.5 fl (80-96); MEAN PLT VOLUME 7.4 fl (7.5-11.1); NEUTROPHILS 77.9 % (42.8-82.8); PLATELET COUNT 506 K/MM3 (134-434); RDW 20.5 % (11.9-15.9); WHITE BLOOD COUNT 12.6 K/mm3 (4.0-10.0)
[2017-03-12 08:49] LABS: ALBUMIN 1.7 g/dl (3.4-5.0); ANION GAP 7 (8-16); CALCIUM 8.9 mg/dL (8.5-10.1); CO2 30 mmol/L (21-32); CREATININE 0.5 mg/dL (0.7-1.3); GLUCOSE,RANDOM 131 mg/dL (74-106); SGOT/AST 7 U/L (15-37); SGPT/ALT 10 U/L (12-78)
[2017-03-12 08:51] LABS: ALK PHOS 74 U/L (45-117); BILIRUBIN,TOTAL 0.4 mg/dL (0.2-1.0); TOT PROT 6.1 g/dl (6.4-8.2)
[2017-03-12] MEDS: ASPIRIN 81 MG CHEWABLE TABLETS PO SCH (09:54)
[2017-03-12] MEDS: clonazePAM 0.5 MG TABLET PO SCH ×2 (09:54→21:03)
[2017-03-12] MEDS: METOPROLOL TARTRATE 50 MG TABLET (FP) PO SCH ×2 (09:54→21:03)
[2017-03-12] MEDS: DIGOXIN 0.125 MG TABLET (FP) PO SCH (09:54)
[2017-03-12] MEDS: CLOPIDOGREL BISULFATE 75 MG TABLET (FP) PO SCH (09:54)
[2017-03-12] MEDS: HEPARIN NA (PORCINE) 5,000 UNITS/ML 1ML VIAL SQ SCH ×2 (09:54→21:03)
[2017-03-12] MEDS: SPIRONOLACTONE 25 MG TABLET (FP) PO SCH (10:01)
[2017-03-12] MEDS: MULTIVITAMINS (DAILY MVI) TABLET (FP) PO SCH (10:01)
[2017-03-12] MEDS: DONEPEZIL HCL 10 MG TABLET (FP) PO SCH (10:01)
--- NOTE | 2017-03-12 11:13 | PN ---
Progress Note (short form) - Note Progress Note: doing well abd soft arndt patent will need to inc flomax 0.8po qhs urecholine 50 po bid d/c arndt in am trial at voiding will need uds and possible tuvp as outpt
--- NOTE | 2017-03-12 12:38 | SPA.PREOP ---
- PRE-OP NOTE Dx: Right lower extremity gangrene Planned Procedure: RLE angiogram, possible angioplasty, possible stent Surgeon: Devan Kothari Consent: To be obtained by surgeon after risks, benefits and alternatives explained to patient. Last Vital Signs Temp Pulse Resp BP Pulse Ox 97.5 F L 94 H 20 139/75 95 03/12/17 06:00 03/12/17 09:54 03/12/17 06:00 03/12/17 06:00 03/11/17 09:00 Lab Results WBC 12.6 K/mm3 (4.0-10.0) H 03/12/17 07:00 RBC 3.53 M/mm3 (4.00-5.60) L 03/12/17 07:00 Hgb 9.1 GM/dL (11.7-16.9) L 03/12/17 07:00 Hct 28.8 % (35.4-49) L 03/12/17 07:00 MCV 81.5 fl (80-96) 03/12/17 07:00 MCHC 31.7 g/dl (32.0-35.9) L 03/12/17 07:00 RDW 20.5 % (11.9-15.9) H 03/12/17 07:00 Plt Count 506 K/MM3 (134-434) H 03/12/17 07:00 Sodium 139 mmol/L (136-145) 03/12/17 07:00 Potassium 4.6 mmol/L (3.5-5.1) D 03/12/17 07:00 Chloride 102 mmol/L (98-107) 03/12/17 07:00 Carbon Dioxide 30 mmol/L (21-32) 03/12/17 07:00 Anion Gap 7 (8-16) L 03/12/17 07:00 BUN 4 mg/dL (7-18) L 03/12/17 07:00 Creatinine 0.5 mg/dL (0.7-1.3) L 03/12/17 07:00 Random Glucose 131 mg/dL (74-106) H D 03/12/17 07:00 Calcium 8.9 mg/dL (8.5-10.1) 03/12/17 07:00 Antibody Screen Negative 02/24/17 11:30 INR 1.33 (0.82-1.09) H 02/24/17 11:30 - ASSESSMENT/PLAN 1. Make NPO after midnight except po meds 2. GI/DVT PPX 3. Medical optimization / clearance Visit type - Case Type Case Type: ED Admission
--- NOTE | 2017-03-12 12:40 | PN ---
Progress Note (short form) - Note Progress Note: no fevers NAD resting comfortably Vital Signs Period Temp Pulse Resp BP Sys/Mcdaniel Pulse Ox Last 24 Hr 96.9 F-97.9 F 79-116 16-20 119-139/48-75 cor-rrr llungs clear abd soft,nt ext dry gangrene of the toes and heel unchanged arndt CBC, BMP 03/12/17 07:00 03/12/17 07:00 Microbiology 03/07/17 01:35 Blood - Peripheral Venous Blood Culture - Final NO GROWTH AFTER 5 DAYS INCUBATION 03/09/17 14:50 Blood - Peripheral Venous Blood Culture - Preliminary NO GROWTH OBTAINED AFTER 48 HOURS, INCUBATION TO CONTINUE FOR 3 DAYS. 03/09/17 14:50 Blood - Peripheral Venous Blood Culture - Preliminary NO GROWTH OBTAINED AFTER 48 HOURS, INCUBATION TO CONTINUE FOR 3 DAYS. 03/07/17 01:35 Blood - Peripheral Venous Blood Culture - Final Staphylococcus Epidermidis 03/04/17 23:13 Blood - Peripheral Venous Blood Culture - Final NO GROWTH AFTER 5 DAYS INCUBATION 03/04/17 23:13 Blood - Peripheral Venous Blood Culture - Final NO GROWTH AFTER 5 DAYS INCUBATION 03/07/17 01:35 Urine - Urine Arndt Urine Culture - Final NO GROWTH OBTAINED 02/24/17 12:00 Blood - Peripheral Venous Blood Culture - Final NO GROWTH AFTER 5 DAYS INCUBATION 02/24/17 12:00 Blood - Peripheral Venous Blood Culture - Final NO GROWTH AFTER 5 DAYS INCUBATION 02/25/17 23:40 Urine - Urine Arndt Urine Culture - Final Yeast Like Organism 02/24/17 13:05 Urine - Urine - Catheterized Urine Culture - Final Yeast Like Organism a/p fevers resolved- stable off antibiotics please call back if needed dry gangrene- angiogram per vascular cad rapid afib recent treatment of fungal uti history of resistant organisms
[2017-03-12] MEDS: TAMSULOSIN HCL 0.4 MG CAP.ER.24H (FP) PO SCH (16:18)
[2017-03-12] MEDS ORDERED: INSULIN (NOVOLOG) ASPART 100 UNITS/ML 10ML VIAL ONE (17:29)
[2017-03-12] MEDS: MIRTAZAPINE 15 MG TABLET (FP) PO SCH (21:04)
--- NOTE | 2017-03-12 23:43 | PN ---
Progress Note, Physician History of Present Illness: No new complaints Pt scheduled for angio in am - Current Medication List Current Medications: Active Medications Acetaminophen (Tylenol Suppository -) 650 mg [place] Q6H PRN PRN Reason: FEVER Last Admin: 03/06/17 21:56 Dose: 650 mg Aspirin (Asa -) 81 mg PO DAILY [facility] Last Admin: 03/12/17 09:54 Dose: 81 mg Clonazepam (Klonopin -) 0.5 mg PO BID [facility] Last Admin: 03/12/17 21:03 Dose: 0.5 mg Clopidogrel Bisulfate (Plavix -) 75 mg PO DAILY [facility] Last Admin: 03/12/17 09:54 Dose: 75 mg Digoxin (Lanoxin -) 0.125 mg PO DAILY [facility] Last Admin: 03/12/17 09:54 Dose: 0.125 mg Donepezil HCl (Aricept -) 10 mg PO DAILY [facility] Last Admin: 03/12/17 10:01 Dose: Not Given Heparin Sodium (Porcine) (Heparin -) 5,000 unit SQ BID [facility] Last Admin: 03/12/17 21:03 Dose: 5,000 unit Insulin Aspart (Novolog Vial Sliding Scale -) 1 vial SQ ACHS [facility] PRN Reason: Protocol Last Admin: 03/12/17 21:04 Dose: Not Given Metoprolol Tartrate (Lopressor -) 50 mg PO BID [facility] Last Admin: 03/12/17 21:03 Dose: 50 mg Metoprolol Tartrate (Lopressor Injection -) 5 mg IVPUSH Q6H PRN Last Admin: 03/07/17 14:17 Dose: 5 mg Mirtazapine (Remeron -) 15 mg PO HS [facility] Last Admin: 03/12/17 21:04 Dose: 15 mg Multivitamins/Minerals/Vitamin C (Tab-A-Vit -) 1 tab PO DAILY [facility] Last Admin: 03/12/17 10:01 Dose: Not Given Spironolactone (Aldactone -) 25 mg PO DAILY [facility] Last Admin: 03/12/17 10:01 Dose: Not Given Tamsulosin HCl (Flomax -) 0.4 mg PO 1630 [facility] Last Admin: 03/12/17 16:18 Dose: Not Given - Objective Vital Signs: Vital Signs Temperature 97.2 F L 03/12/17 18:00 Pulse Rate 128 H 03/12/17 18:00 Respiratory Rate 18 03/12/17 21:00 Blood Pressure 120/76 03/12/17 18:00 O2 Sat by Pulse Oximetry (%) 96 03/12/17 21:00 HENT: Yes: WNL Neck: Yes: WNL, Supple Cardiovascular: Yes: Pulse Irregular Respiratory: Yes: WNL, Regular, CTA Bilaterally Gastrointestinal: Yes: WNL, Normal Bowel Sounds, Soft Musculoskeletal: Yes: Other ((+) gangrene toes/heel) Labs: CBC, BMP 03/12/17 07:00 03/12/17 07:00 INR, PTT INR 1.33 (0.82-1.09) H 02/24/17 11:30 Problem List - Problems (1) Sepsis Assessment/Plan: Pt scheduled for angiogram in am Code(s): A41.9 - SEPSIS, UNSPECIFIED ORGANISM Qualifiers: Qualified Code(s): A41.9 - Sepsis, unspecified organism (2) Atrial fibrillation Assessment/Plan: Hear rate improved Cont BB/dig Code(s): I48.91 - UNSPECIFIED ATRIAL FIBRILLATION Qualifiers: Qualified Code(s): I48.91 - Unspecified atrial fibrillation (3) Systolic CHF Assessment/Plan: Acute on chronic systolic CHF Cont spirinolactone monitor electrolytes Code(s): I50.20 - UNSPECIFIED SYSTOLIC (CONGESTIVE) HEART FAILURE (4) ACS (acute coronary syndrome) Assessment/Plan: Cont asa/plavix Code(s): I24.9 - ACUTE ISCHEMIC HEART DISEASE, UNSPECIFIED (5) CAD (coronary artery disease) Code(s): I25.10 - ATHSCL HEART DISEASE OF [place] CORONARY ARTERY W/O ANG PCTRS (6) Dementia Assessment/Plan: Cont aricept Pt continues to need kamilla restraints for safety Code(s): F03.90 - UNSPECIFIED DEMENTIA WITHOUT BEHAVIORAL DISTURBANCE (7) Diabetes Assessment/Plan: Cont sliding scale w/ novolog Code(s): E11.9 - TYPE 2 DIABETES MELLITUS WITHOUT COMPLICATIONS (8) HTN (hypertension) Code(s): I10 - ESSENTIAL (PRIMARY) HYPERTENSION (9) Normocytic anemia Code(s): D64.9 - ANEMIA, UNSPECIFIED (10) Hyperlipidemia Code(s): E78.5 - HYPERLIPIDEMIA, UNSPECIFIED
[2017-03-13] MEDS: INSULIN SLIDING SCALE (NOVOLOG) 1 VIAL SQ SCH ×4 (06:05→21:32)
[2017-03-13] MEDS ORDERED: HEPARIN NA (PORCINE) 5,000 UNITS/ML 1ML VIAL ONE (10:07)
[2017-03-13] MEDS ORDERED: LIDOCAINE HCL 1%, 10 MG/ML (20ML VIAL) ONE (10:07)
[2017-03-13] MEDS ORDERED: LEVOFLOXACIN 500 MG PREMIX BAG IVPB ONE (10:41)
[2017-03-13] MEDS ORDERED: LIDOCAINE HCL 1%, 10 MG/ML (20ML VIAL) IJ ONE (10:57)
[2017-03-13] MEDS ORDERED: HEPARIN NA (PORCINE) 5,000 UNITS/ML 1ML VIAL SQ ONE (11:00)
--- NOTE | 2017-03-13 12:13 | OP ---
Operative Note - Note: Operative Date: 03/13/17 Pre-Operative Diagnosis: right foot gangrene Operation: Aortogram, RLE angiogram, tibial artery angioplasty Post-Operative Diagnosis: Same as Pre-op Surgeon: Devan Kothari Anesthesia: Fractional Estimated Blood Loss (mls): 50 Operative Report Dictated: Yes
--- NOTE | 2017-03-13 12:17 | PN ---
Progress Note (short form) - Note Progress Note: Vascular surgery S/P angioplasty. spoke to family at length about Bilateral lower ext. If right foot does not get better, can try to do retrograde stick to DP in foot and try to open direct flow to forefoot. Please hydrate over the weekend , can do angiogram on tues. Devan Kothari DO
[2017-03-13] MEDS ORDERED: METOPROLOL TARTRATE 5 MG/5 ML VIAL IVPUSH PRN (12:45)
--- NOTE | 2017-03-13 13:05 | OP ---
DATE OF OPERATION: 03/13/2017 PREOPERATIVE DIAGNOSIS: Right foot gangrene. POSTOPERATIVE DIAGNOSIS: Right foot gangrene. PROCEDURE: Aortogram right lower extremity, angiogram tibial artery, angioplasty. SURGEON: Devan Newberry DO ANESTHESIA: Fractional. BLOOD LOSS: 50 mL. INDICATIONS: The patient is a 77-year-old male who has right foot gangrene that has been progressing on his toes. It was decided that he would need an angiogram. He has been in the hospital for over a week due to a massive UTI, and he is now blood culture negative, and he was cleared for surgery by medicine. The patient's family consented for the procedure understanding all risks, benefits, and alternatives and was then taken to the operating room. DESCRIPTION OF PROCEDURE: Once in the operating room, he was laid on the operating room table in a supine manner. The area of the right groin was prepped and draped in a sterile surgical manner. Then 10 mL of lidocaine 1% was injected over the left common femoral artery. We then used our micropuncture needle and punctured the left common femoral artery. Micropuncture wire was inserted. A traditional 5-Syriac sheath was inserted. We then placed an 0.035 floppy guidewire up into the aorta followed by an Omni Flush catheter. We then shot an aortogram via hand injection showing that the aorta and the iliac arteries were without any disease. We then took our 0.035 floppy guidewire and went up and over to the right common femoral artery, and our Omni Flush catheter followed. We then shot an angiogram of the right lower extremity sequentially showing that the common femoral artery, the profunda, and the SFA were patent. The popliteal artery was patent; however, the TP trunk had a 95% stenosis; and there was only 1 vessel runoff, which was the peroneal artery. There was no DP or PT in the leg. There was reconstitution of the DP in the foot on delayed images. At this point, we placed a 0.035 stiff guidewire into the SFA, removed our Omni Flush catheter. We then placed a 6 x 45 crossover sheath. Then 5000 units of IV heparin were administered to the patient. We then went ahead and brought our wire down and brought it across the stenosis and placed the wire into the peroneal artery. We then exchanged the wire for an 0.014 wire. We then used a 3 x 4 Ultraverse balloon and performed angioplasty of the entire peroneal artery. Completion angiogram showed that the peroneal artery was now patent. The stenosis had been resolved. In the future, if the foot does not get better after this angioplasty, the patient would need dorsalis pedis access and try to open that artery to the forefoot, and he would need a retrograde angiogram angioplasty. At this point, we brought our sheath up and over. StarClose device was successfully deployed in the left common femoral artery. Pressure held over the left groin for 5 minutes after which there was no bleeding. It was wet and dried, and Dermabond was placed. The patient tolerated the procedure with no complication. The patient was transferred to the PACU in stable condition. DEVAN NEWBERRY DO NP/[id number]
[2017-03-13] MEDS: SPIRONOLACTONE 25 MG TABLET (FP) PO SCH (16:26)
[2017-03-13] MEDS: DONEPEZIL HCL 10 MG TABLET (FP) PO SCH (16:30)
[2017-03-13] MEDS: ASPIRIN 81 MG CHEWABLE TABLETS PO SCH (16:32)
[2017-03-13] MEDS: HEPARIN NA (PORCINE) 5,000 UNITS/ML 1ML VIAL SQ SCH ×2 (16:32→21:11)
[2017-03-13] MEDS: METOPROLOL TARTRATE 50 MG TABLET (FP) PO SCH ×2 (16:33→21:11)
[2017-03-13] MEDS: DIGOXIN 0.125 MG TABLET (FP) PO SCH (16:33)
[2017-03-13] MEDS: clonazePAM 0.5 MG TABLET PO SCH ×2 (16:33→21:11)
[2017-03-13] MEDS: CLOPIDOGREL BISULFATE 75 MG TABLET (FP) PO SCH (16:33)
[2017-03-13] MEDS: MULTIVITAMINS (DAILY MVI) TABLET (FP) PO SCH (16:34)
[2017-03-13] MEDS: TAMSULOSIN HCL 0.4 MG CAP.ER.24H (FP) PO SCH (18:31)
[2017-03-13] MEDS ORDERED: INSULIN (NOVOLOG) ASPART 100 UNITS/ML 10ML VIAL ONE (21:09)
[2017-03-13] MEDS: MIRTAZAPINE 15 MG TABLET (FP) PO SCH (21:11)
--- NOTE | 2017-03-13 23:21 | PN ---
Progress Note, Physician History of Present Illness: Pt tolerated procedure - Current Medication List Current Medications: Active Medications Acetaminophen (Tylenol Suppository -) 650 mg [place] Q6H PRN PRN Reason: FEVER Aspirin (Asa -) 81 mg PO DAILY [facility] Clonazepam (Klonopin -) 0.5 mg PO BID [facility] Last Admin: 03/13/17 21:11 Dose: 0.5 mg Clopidogrel Bisulfate (Plavix -) 75 mg PO DAILY [facility] Digoxin (Lanoxin -) 0.125 mg PO DAILY [facility] Donepezil HCl (Aricept -) 10 mg PO DAILY [facility] Fentanyl (Sublimaze Injection -) 25 mcg IVPUSH [id number] PRN PRN Reason: PAIN Stop: 03/16/17 12:06 Heparin Sodium (Porcine) (Heparin -) 5,000 unit SQ BID [facility] Last Admin: 03/13/17 21:11 Dose: 5,000 unit Insulin Aspart (Novolog Vial Sliding Scale -) 1 vial SQ ACHS [facility] PRN Reason: Protocol Last Admin: 03/13/17 21:32 Dose: Not Given Metoprolol Tartrate (Lopressor -) 50 mg PO BID [facility] Last Admin: 03/13/17 21:11 Dose: 50 mg Metoprolol Tartrate (Lopressor Injection -) 5 mg IVPUSH Q6H PRN Mirtazapine (Remeron -) 15 mg PO HS [facility] Last Admin: 03/13/17 21:11 Dose: 15 mg Multivitamins/Minerals/Vitamin C (Tab-A-Vit -) 1 tab PO DAILY [facility] Spironolactone (Aldactone -) 25 mg PO DAILY [facility] Tamsulosin HCl (Flomax -) 0.4 mg PO 1630 [facility] Last Admin: 03/13/17 18:31 Dose: 0.4 mg - Objective Vital Signs: Vital Signs Temperature 98.2 F 03/13/17 18:20 Pulse Rate 125 H 03/13/17 18:20 Respiratory Rate 18 03/13/17 18:20 Blood Pressure 118/72 03/13/17 18:20 O2 Sat by Pulse Oximetry (%) 97 03/13/17 13:20 Constitutional: Yes: No Distress Neck: Yes: WNL, Supple Cardiovascular: Yes: WNL, Regular Rate and Rhythm Respiratory: Yes: WNL, Regular, CTA Bilaterally Gastrointestinal: Yes: WNL, Normal Bowel Sounds, Soft Labs: CBC, BMP 03/12/17 07:00 03/12/17 07:00 INR, PTT INR 1.33 (0.82-1.09) H 02/24/17 11:30 Problem List - Problems (1) Sepsis Assessment/Plan: S/P angioplasty rt tibial Pt scheduled for angiogram after weekend Will give gentle hydration Pt now off antibxs Repeat BC remained negative Code(s): A41.9 - SEPSIS, UNSPECIFIED ORGANISM Qualifiers: Qualified Code(s): A41.9 - Sepsis, unspecified organism (2) Atrial fibrillation Assessment/Plan: Heart rate improving Cont BB/dig Code(s): I48.91 - UNSPECIFIED ATRIAL FIBRILLATION Qualifiers: Qualified Code(s): I48.91 - Unspecified atrial fibrillation (3) Systolic CHF Code(s): I50.20 - UNSPECIFIED SYSTOLIC (CONGESTIVE) HEART FAILURE (4) ACS (acute coronary syndrome) Code(s): I24.9 - ACUTE ISCHEMIC HEART DISEASE, UNSPECIFIED (5) CAD (coronary artery disease) Code(s): I25.10 - ATHSCL HEART DISEASE OF [place] CORONARY ARTERY W/O ANG PCTRS (6) Dementia Code(s): F03.90 - UNSPECIFIED DEMENTIA WITHOUT BEHAVIORAL DISTURBANCE (7) Diabetes Code(s): E11.9 - TYPE 2 DIABETES MELLITUS WITHOUT COMPLICATIONS (8) HTN (hypertension) Code(s): I10 - ESSENTIAL (PRIMARY) HYPERTENSION (9) Normocytic anemia Code(s): D64.9 - ANEMIA, UNSPECIFIED (10) Hyperlipidemia Code(s): E78.5 - HYPERLIPIDEMIA, UNSPECIFIED
[2017-03-14] MEDS: INSULIN SLIDING SCALE (NOVOLOG) 1 VIAL SQ SCH ×4 (06:59→22:01)
[2017-03-14] MEDS: DEXTROSE 5%-0.45% SALINE 1,000 ML IV SCH (07:15)
[2017-03-14 07:18] LABS: BASOPHIL 0.4 % (0-2.0); EOSINOPHIL 0.7 % (0-4.5); MCH 25.9 pg (25.7-33.7); MCHC 31.6 g/dl (32.0-35.9); MEAN CELL VOLUME 82.1 fl (80-96); MEAN PLT VOLUME 7.2 fl (7.5-11.1); NEUTROPHILS 75.8 % (42.8-82.8); PLATELET COUNT 492 K/MM3 (134-434); RDW 20.1 % (11.9-15.9); WHITE BLOOD COUNT 11.3 K/mm3 (4.0-10.0)
[2017-03-14 07:42] LABS: ALBUMIN 1.7 g/dl (3.4-5.0); ANION GAP 7 (8-16); BILIRUBIN,TOTAL 0.4 mg/dL (0.2-1.0); CALCIUM 8.8 mg/dL (8.5-10.1); CO2 30 mmol/L (21-32); CREATININE 0.6 mg/dL (0.7-1.3); GLUCOSE,RANDOM 116 mg/dL (74-106); SGOT/AST 6 U/L (15-37); SGPT/ALT 10 U/L (12-78)
[2017-03-14 07:43] LABS: ALK PHOS 74 U/L (45-117); TOT PROT 6.3 g/dl (6.4-8.2)
--- NOTE | 2017-03-14 08:41 | PN ---
Progress Note (short form) - Note Progress Note: VAscular Surgery Right lower ext stable. Please hydrate. Will try for retrograde angiogram on friday. Devan Kothari DO
[2017-03-14] MEDS ORDERED: PT OWN MED DRAWER 7, Y5N ONE (09:33)
[2017-03-14] MEDS: METOPROLOL TARTRATE 50 MG TABLET (FP) PO SCH ×2 (09:35→22:00)
[2017-03-14] MEDS: DIGOXIN 0.125 MG TABLET (FP) PO SCH (09:35)
[2017-03-14] MEDS: DONEPEZIL HCL 10 MG TABLET (FP) PO SCH (09:36)
[2017-03-14] MEDS: MULTIVITAMINS (DAILY MVI) TABLET (FP) PO SCH (09:36)
[2017-03-14] MEDS: CLOPIDOGREL BISULFATE 75 MG TABLET (FP) PO SCH (09:36)
[2017-03-14] MEDS: clonazePAM 0.5 MG TABLET PO SCH ×2 (09:36→22:00)
[2017-03-14] MEDS: SPIRONOLACTONE 25 MG TABLET (FP) PO SCH (09:37)
[2017-03-14] MEDS: ASPIRIN 81 MG CHEWABLE TABLETS PO SCH (09:37)
[2017-03-14] MEDS: HEPARIN NA (PORCINE) 5,000 UNITS/ML 1ML VIAL SQ SCH ×2 (09:37→22:00)
--- NOTE | 2017-03-14 13:30 | PN ---
Progress Note (short form) - Note Progress Note: POD #1 - s/p angiogram/angioplasty of RLE under MAC. VSS. Pt. resting in bed. No apparent anesthetic complications noted. Continue current care.
[2017-03-14] MEDS: TAMSULOSIN HCL 0.4 MG CAP.ER.24H (FP) PO SCH (18:13)
--- NOTE | 2017-03-14 21:21 | PN ---
Progress Note, Physician History of Present Illness: No new complaints - Current Medication List Current Medications: Active Medications Acetaminophen (Tylenol Suppository -) 650 mg [place] Q6H PRN PRN Reason: FEVER Aspirin (Asa -) 81 mg PO DAILY [facility] Last Admin: 03/14/17 09:37 Dose: 81 mg Clonazepam (Klonopin -) 0.5 mg PO BID [facility] Last Admin: 03/14/17 09:36 Dose: 0.5 mg Clopidogrel Bisulfate (Plavix -) 75 mg PO DAILY [facility] Last Admin: 03/14/17 09:36 Dose: 75 mg Digoxin (Lanoxin -) 0.125 mg PO DAILY [facility] Last Admin: 03/14/17 09:35 Dose: 0.125 mg Donepezil HCl (Aricept -) 10 mg PO DAILY [facility] Last Admin: 03/14/17 09:36 Dose: 10 mg Fentanyl (Sublimaze Injection -) 25 mcg IVPUSH [id number] PRN PRN Reason: PAIN Stop: 03/16/17 12:06 Heparin Sodium (Porcine) (Heparin -) 5,000 unit SQ BID [facility] Last Admin: 03/14/17 09:37 Dose: 5,000 unit Dextrose/Sodium Chloride (D5-1/2ns -) 1,000 mls @ 43 mls/hr IV ASDIR [facility] Last Admin: 03/14/17 07:15 Dose: 43 mls/hr Insulin Aspart (Novolog Vial Sliding Scale -) 1 vial SQ ACHS [facility] PRN Reason: Protocol Last Admin: 03/14/17 17:20 Dose: Not Given Metoprolol Tartrate (Lopressor -) 50 mg PO BID [facility] Last Admin: 03/14/17 09:35 Dose: 50 mg Metoprolol Tartrate (Lopressor Injection -) 5 mg IVPUSH Q6H PRN Mirtazapine (Remeron -) 15 mg PO HS [facility] Last Admin: 03/13/17 21:11 Dose: 15 mg Multivitamins/Minerals/Vitamin C (Tab-A-Vit -) 1 tab PO DAILY [facility] Last Admin: 03/14/17 09:36 Dose: 1 tab Spironolactone (Aldactone -) 25 mg PO DAILY [facility] Last Admin: 03/14/17 09:37 Dose: 25 mg Tamsulosin HCl (Flomax -) 0.4 mg PO 1630 [facility] Last Admin: 03/14/17 18:13 Dose: 0.4 mg - Objective Vital Signs: Vital Signs Temperature 97.8 F 03/14/17 17:54 Pulse Rate 126 H 03/14/17 17:54 Respiratory Rate 18 03/14/17 17:54 Blood Pressure 130/60 03/14/17 17:54 O2 Sat by Pulse Oximetry (%) 94 L 03/14/17 11:09 Neck: Yes: WNL, Supple Cardiovascular: Yes: Pulse Irregular Respiratory: Yes: WNL, Regular, CTA Bilaterally Gastrointestinal: Yes: WNL, Normal Bowel Sounds, Soft Extremities: Yes: Other ((+) gangrene toes/heel) Labs: CBC, BMP 03/14/17 07:00 03/14/17 07:00 INR, PTT INR 1.33 (0.82-1.09) H 02/24/17 11:30 Problem List - Problems (1) Sepsis Assessment/Plan: S/P angioplasty rt tibial Pt scheduled for angiogram after weekend Code(s): A41.9 - SEPSIS, UNSPECIFIED ORGANISM Qualifiers: Qualified Code(s): A41.9 - Sepsis, unspecified organism (2) Atrial fibrillation Assessment/Plan: Hear rate improved Cont BB/dig Code(s): I48.91 - UNSPECIFIED ATRIAL FIBRILLATION Qualifiers: Qualified Code(s): I48.91 - Unspecified atrial fibrillation (3) Systolic CHF Assessment/Plan: Acute on chronic systolic CHF Cont spirinolactone monitor electrolytes Code(s): I50.20 - UNSPECIFIED SYSTOLIC (CONGESTIVE) HEART FAILURE (4) ACS (acute coronary syndrome) Code(s): I24.9 - ACUTE ISCHEMIC HEART DISEASE, UNSPECIFIED (5) CAD (coronary artery disease) Code(s): I25.10 - ATHSCL HEART DISEASE OF [place] CORONARY ARTERY W/O ANG PCTRS (6) Dementia Code(s): F03.90 - UNSPECIFIED DEMENTIA WITHOUT BEHAVIORAL DISTURBANCE (7) Diabetes Code(s): E11.9 - TYPE 2 DIABETES MELLITUS WITHOUT COMPLICATIONS (8) HTN (hypertension) Code(s): I10 - ESSENTIAL (PRIMARY) HYPERTENSION (9) Normocytic anemia Code(s): D64.9 - ANEMIA, UNSPECIFIED (10) Hyperlipidemia Code(s): E78.5 - HYPERLIPIDEMIA, UNSPECIFIED
[2017-03-14] MEDS: MIRTAZAPINE 15 MG TABLET (FP) PO SCH (22:00)
[2017-03-15] MEDS: DEXTROSE 5%-0.45% SALINE 1,000 ML IV SCH (06:36)
[2017-03-15] MEDS: INSULIN SLIDING SCALE (NOVOLOG) 1 VIAL SQ SCH ×4 (06:37→22:47)
[2017-03-15] MEDS ORDERED: INSULIN (NOVOLOG) ASPART 100 UNITS/ML 10ML VIAL ONE ×2 (07:04→11:48)
[2017-03-15] MEDS: DIGOXIN 0.125 MG TABLET (FP) PO SCH (09:53)
[2017-03-15] MEDS: METOPROLOL TARTRATE 50 MG TABLET (FP) PO SCH ×2 (09:53→22:47)
[2017-03-15] MEDS: clonazePAM 0.5 MG TABLET PO SCH ×2 (09:53→22:47)
[2017-03-15] MEDS: SPIRONOLACTONE 25 MG TABLET (FP) PO SCH (09:53)
[2017-03-15] MEDS: DONEPEZIL HCL 10 MG TABLET (FP) PO SCH (09:53)
[2017-03-15] MEDS: MULTIVITAMINS (DAILY MVI) TABLET (FP) PO SCH (09:53)
[2017-03-15] MEDS: HEPARIN NA (PORCINE) 5,000 UNITS/ML 1ML VIAL SQ SCH ×2 (09:54→22:47)
[2017-03-15] MEDS: CLOPIDOGREL BISULFATE 75 MG TABLET (FP) PO SCH (09:54)
[2017-03-15] MEDS: ASPIRIN 81 MG CHEWABLE TABLETS PO SCH (09:54)
[2017-03-15] MEDS: TAMSULOSIN HCL 0.4 MG CAP.ER.24H (FP) PO SCH (17:50)
--- NOTE | 2017-03-15 19:52 | PN ---
Progress Note, Physician History of Present Illness: No new complaints - Current Medication List Current Medications: Active Medications Acetaminophen (Tylenol Suppository -) 650 mg [place] Q6H PRN PRN Reason: FEVER Aspirin (Asa -) 81 mg PO DAILY [facility] Last Admin: 03/15/17 09:54 Dose: 81 mg Clonazepam (Klonopin -) 0.5 mg PO BID [facility] Last Admin: 03/15/17 09:53 Dose: 0.5 mg Clopidogrel Bisulfate (Plavix -) 75 mg PO DAILY [facility] Last Admin: 03/15/17 09:54 Dose: 75 mg Digoxin (Lanoxin -) 0.125 mg PO DAILY [facility] Last Admin: 03/15/17 09:53 Dose: 0.125 mg Donepezil HCl (Aricept -) 10 mg PO DAILY [facility] Last Admin: 03/15/17 09:53 Dose: 10 mg Fentanyl (Sublimaze Injection -) 25 mcg IVPUSH [id number] PRN PRN Reason: PAIN Stop: 03/16/17 12:06 Heparin Sodium (Porcine) (Heparin -) 5,000 unit SQ BID [facility] Last Admin: 03/15/17 09:54 Dose: 5,000 unit Dextrose/Sodium Chloride (D5-1/2ns -) 1,000 mls @ 43 mls/hr IV ASDIR [facility] Last Admin: 03/15/17 06:36 Dose: 43 mls/hr Insulin Aspart (Novolog Vial Sliding Scale -) 1 vial SQ ACHS [facility] PRN Reason: Protocol Last Admin: 03/15/17 17:48 Dose: Not Given Metoprolol Tartrate (Lopressor -) 50 mg PO BID [facility] Last Admin: 03/15/17 09:53 Dose: 50 mg Metoprolol Tartrate (Lopressor Injection -) 5 mg IVPUSH Q6H PRN Mirtazapine (Remeron -) 15 mg PO HS [facility] Last Admin: 03/14/17 22:00 Dose: 15 mg Multivitamins/Minerals/Vitamin C (Tab-A-Vit -) 1 tab PO DAILY [facility] Last Admin: 03/15/17 09:53 Dose: 1 tab Spironolactone (Aldactone -) 25 mg PO DAILY [facility] Last Admin: 03/15/17 09:53 Dose: 25 mg Tamsulosin HCl (Flomax -) 0.4 mg PO 1630 [facility] Last Admin: 03/15/17 17:50 Dose: 0.4 mg - Objective Vital Signs: Vital Signs Temperature 98.1 F 03/15/17 17:28 Pulse Rate 122 H 03/15/17 17:28 Respiratory Rate 20 03/15/17 10:00 Blood Pressure 119/72 03/15/17 17:28 O2 Sat by Pulse Oximetry (%) 94 L 03/14/17 21:00 Constitutional: Yes: No Distress Neck: Yes: WNL, Supple Cardiovascular: Yes: Tachycardia Respiratory: Yes: WNL, Regular, CTA Bilaterally Gastrointestinal: Yes: WNL, Normal Bowel Sounds, Soft Labs: CBC, BMP 03/14/17 07:00 03/14/17 07:00 INR, PTT INR 1.33 (0.82-1.09) H 02/24/17 11:30 Problem List - Problems (1) Sepsis Assessment/Plan: S/P angioplasty rt tibial Pt scheduled for angiogram after weekend Will give gentle hydration Pt now off antibxs Repeat BC remained negative Code(s): A41.9 - SEPSIS, UNSPECIFIED ORGANISM Qualifiers: Qualified Code(s): A41.9 - Sepsis, unspecified organism (2) Atrial fibrillation Assessment/Plan: Pt still taachy Increase dose of BB Reconsult cardio Code(s): I48.91 - UNSPECIFIED ATRIAL FIBRILLATION Qualifiers: Qualified Code(s): I48.91 - Unspecified atrial fibrillation (3) Systolic CHF Assessment/Plan: Acute on chronic systolic CHF Cont spirinolactone monitor electrolytes Code(s): I50.20 - UNSPECIFIED SYSTOLIC (CONGESTIVE) HEART FAILURE (4) ACS (acute coronary syndrome) Code(s): I24.9 - ACUTE ISCHEMIC HEART DISEASE, UNSPECIFIED (5) CAD (coronary artery disease) Code(s): I25.10 - ATHSCL HEART DISEASE OF [place] CORONARY ARTERY W/O ANG PCTRS (6) Dementia Assessment/Plan: Cont aricept Pt continues to need kamilla restraints for safety Code(s): F03.90 - UNSPECIFIED DEMENTIA WITHOUT BEHAVIORAL DISTURBANCE (7) Diabetes Assessment/Plan: Cont sliding scale w/ novolog Code(s): E11.9 - TYPE 2 DIABETES MELLITUS WITHOUT COMPLICATIONS (8) HTN (hypertension) Code(s): I10 - ESSENTIAL (PRIMARY) HYPERTENSION (9) Normocytic anemia Code(s): D64.9 - ANEMIA, UNSPECIFIED (10) Hyperlipidemia Code(s): E78.5 - HYPERLIPIDEMIA, UNSPECIFIED
[2017-03-15] MEDS: MIRTAZAPINE 15 MG TABLET (FP) PO SCH (22:47)
[2017-03-15] MEDS: ACETAMINOPHEN 650 MG SUPP.RECT PR PRN (23:11)
[2017-03-16] MEDS: DEXTROSE 5%-0.45% SALINE 1,000 ML IV SCH ×2 (03:08→21:32)
[2017-03-16] MEDS: INSULIN SLIDING SCALE (NOVOLOG) 1 VIAL SQ SCH ×4 (06:00→21:31)
[2017-03-16 07:20] LABS: BASOPHIL 0.8 % (0-2.0); EOSINOPHIL 1.3 % (0-4.5); MCH 26.1 pg (25.7-33.7); MCHC 32.5 g/dl (32.0-35.9); MEAN CELL VOLUME 80.4 fl (80-96); MEAN PLT VOLUME 7.2 fl (7.5-11.1); NEUTROPHILS 72.6 % (42.8-82.8); PLATELET COUNT 492 K/MM3 (134-434); RDW 19.7 % (11.9-15.9); WHITE BLOOD COUNT 12.7 K/mm3 (4.0-10.0)
[2017-03-16 07:52] LABS: ALBUMIN 1.6 g/dl (3.4-5.0); ANION GAP 8 (8-16); CALCIUM 8.4 mg/dL (8.5-10.1); CO2 27 mmol/L (21-32); CREATININE 0.5 mg/dL (0.7-1.3); GLUCOSE,RANDOM 124 mg/dL (74-106); SGOT/AST 10 U/L (15-37); SGPT/ALT 10 U/L (12-78)
[2017-03-16 07:53] LABS: ALK PHOS 69 U/L (45-117); BILIRUBIN,TOTAL 0.6 mg/dL (0.2-1.0); TOT PROT 5.9 g/dl (6.4-8.2)
[2017-03-16] MEDS ORDERED: METOPROLOL TARTRATE 25 MG TABLET (FP) PO SCH (10:00)
[2017-03-16] MEDS: DIGOXIN 0.125 MG TABLET (FP) PO SCH (10:16)
[2017-03-16] MEDS: ASPIRIN 81 MG CHEWABLE TABLETS PO SCH (10:16)
[2017-03-16] MEDS: clonazePAM 0.5 MG TABLET PO SCH ×2 (10:16→21:22)
[2017-03-16] MEDS: HEPARIN NA (PORCINE) 5,000 UNITS/ML 1ML VIAL SQ SCH ×2 (10:16→21:22)
[2017-03-16] MEDS: SPIRONOLACTONE 25 MG TABLET (FP) PO SCH (10:16)
[2017-03-16] MEDS: CLOPIDOGREL BISULFATE 75 MG TABLET (FP) PO SCH (10:16)
[2017-03-16] MEDS: MULTIVITAMINS (DAILY MVI) TABLET (FP) PO SCH (10:16)
[2017-03-16] MEDS: DONEPEZIL HCL 10 MG TABLET (FP) PO SCH (10:16)
[2017-03-16] MEDS: METOPROLOL TARTRATE 50 MG TABLET (FP) PO SCH ×2 (15:24→21:22)
[2017-03-16] MEDS ORDERED: INSULIN (NOVOLOG) ASPART 100 UNITS/ML 10ML VIAL ONE ×2 (16:25→16:38)
[2017-03-16] MEDS: TAMSULOSIN HCL 0.4 MG CAP.ER.24H (FP) PO SCH (16:31)
--- NOTE | 2017-03-16 20:56 | PN ---
Progress Note, Physician History of Present Illness: No new complaints - Current Medication List Current Medications: Active Medications Acetaminophen (Tylenol Suppository -) 650 mg [place] Q6H PRN PRN Reason: FEVER Last Admin: 03/15/17 23:11 Dose: 650 mg Aspirin (Asa -) 81 mg PO DAILY [facility] Last Admin: 03/16/17 10:16 Dose: 81 mg Clonazepam (Klonopin -) 0.5 mg PO BID [facility] Last Admin: 03/16/17 10:16 Dose: 0.5 mg Clopidogrel Bisulfate (Plavix -) 75 mg PO DAILY [facility] Last Admin: 03/16/17 10:16 Dose: 75 mg Donepezil HCl (Aricept -) 10 mg PO DAILY [facility] Last Admin: 03/16/17 10:16 Dose: 10 mg Heparin Sodium (Porcine) (Heparin -) 5,000 unit SQ BID [facility] Last Admin: 03/16/17 10:16 Dose: 5,000 unit Dextrose/Sodium Chloride (D5-1/2ns -) 1,000 mls @ 43 mls/hr IV ASDIR [facility] Last Admin: 03/16/17 03:08 Dose: 43 mls/hr Insulin Aspart (Novolog Vial Sliding Scale -) 1 vial SQ ACHS [facility] PRN Reason: Protocol Last Admin: 03/16/17 16:31 Dose: 2 units Metoprolol Tartrate (Lopressor Injection -) 5 mg IVPUSH Q6H PRN Metoprolol Tartrate (Lopressor -) 50 mg PO TID [facility] Last Admin: 03/16/17 15:24 Dose: Not Given Mirtazapine (Remeron -) 15 mg PO HS [facility] Last Admin: 03/15/17 22:47 Dose: 15 mg Multivitamins/Minerals/Vitamin C (Tab-A-Vit -) 1 tab PO DAILY [facility] Last Admin: 03/16/17 10:16 Dose: 1 tab Spironolactone (Aldactone -) 25 mg PO DAILY [facility] Last Admin: 03/16/17 10:16 Dose: 25 mg Tamsulosin HCl (Flomax -) 0.4 mg PO 1630 [facility] Last Admin: 03/16/17 16:31 Dose: 0.4 mg - Objective Vital Signs: Vital Signs Temperature 97.6 F 03/16/17 17:55 Pulse Rate 100 H 03/16/17 17:55 Respiratory Rate 18 03/16/17 17:55 Blood Pressure 127/78 03/16/17 17:55 O2 Sat by Pulse Oximetry (%) 99 03/16/17 09:00 Constitutional: Yes: No Distress Neck: Yes: WNL, Supple Cardiovascular: Yes: Tachycardia Respiratory: Yes: WNL, Regular, CTA Bilaterally Gastrointestinal: Yes: WNL, Normal Bowel Sounds, Soft Labs: CBC, BMP 03/16/17 06:30 03/16/17 06:30 INR, PTT INR 1.33 (0.82-1.09) H 02/24/17 11:30 Problem List - Problems (1) Sepsis Assessment/Plan: S/P angioplasty rt tibial Pt scheduled for angiogram after weekend DC IVF Code(s): A41.9 - SEPSIS, UNSPECIFIED ORGANISM Qualifiers: Qualified Code(s): A41.9 - Sepsis, unspecified organism (2) Atrial fibrillation Assessment/Plan: Hear rate improved Cont BB/dig Code(s): I48.91 - UNSPECIFIED ATRIAL FIBRILLATION Qualifiers: Qualified Code(s): I48.91 - Unspecified atrial fibrillation (3) Systolic CHF Assessment/Plan: Acute on chronic systolic CHF Cont spirinolactone monitor electrolytes Code(s): I50.20 - UNSPECIFIED SYSTOLIC (CONGESTIVE) HEART FAILURE (4) ACS (acute coronary syndrome) Code(s): I24.9 - ACUTE ISCHEMIC HEART DISEASE, UNSPECIFIED (5) CAD (coronary artery disease) Code(s): I25.10 - ATHSCL HEART DISEASE OF [place] CORONARY ARTERY W/O ANG PCTRS (6) Dementia Code(s): F03.90 - UNSPECIFIED DEMENTIA WITHOUT BEHAVIORAL DISTURBANCE (7) Diabetes Code(s): E11.9 - TYPE 2 DIABETES MELLITUS WITHOUT COMPLICATIONS (8) HTN (hypertension) Code(s): I10 - ESSENTIAL (PRIMARY) HYPERTENSION (9) Normocytic anemia Code(s): D64.9 - ANEMIA, UNSPECIFIED (10) Hyperlipidemia Code(s): E78.5 - HYPERLIPIDEMIA, UNSPECIFIED
[2017-03-16] MEDS: MIRTAZAPINE 15 MG TABLET (FP) PO SCH (21:22)
[2017-03-17] MEDS: INSULIN SLIDING SCALE (NOVOLOG) 1 VIAL SQ SCH ×4 (06:37→21:14)
[2017-03-17] MEDS: METOPROLOL TARTRATE 50 MG TABLET (FP) PO SCH ×3 (06:37→21:14)
[2017-03-17] MEDS ORDERED: INSULIN (NOVOLOG) ASPART 100 UNITS/ML 10ML VIAL ONE ×2 (07:03→10:17)
--- NOTE | 2017-03-17 09:11 | PN ---
Progress Note, Physician Chief Complaint: Pt with eyes open, mumbling to himself. Disoriented to time, place, person. Denies pain presently (though c/o pain in legs when cleaned, per staff). History of Present Illness: The patient is a 76-year-old male (b. 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 Patient presents for admission at request of Dr. Kothari, vascular, for workup and angiogram. Upon arrival to the ED, the pt. was found to have a heart rate in the 150's. Pt. cannot state if he has any chest pain. Patient has baseline advanced dementia (e. g. per daughters, he virtually never recognizes who is with him, and has not done so for months). - Current Medication List Current Medications: Active Medications Acetaminophen (Tylenol Suppository -) 650 mg [place] Q6H PRN PRN Reason: FEVER Last Admin: 03/15/17 23:11 Dose: 650 mg Aspirin (Asa -) 81 mg PO DAILY [facility] Last Admin: 03/16/17 10:16 Dose: 81 mg Clonazepam (Klonopin -) 0.5 mg PO BID [facility] Last Admin: 03/16/17 21:22 Dose: 0.5 mg Clopidogrel Bisulfate (Plavix -) 75 mg PO DAILY [facility] Last Admin: 03/16/17 10:16 Dose: 75 mg Donepezil HCl (Aricept -) 10 mg PO DAILY [facility] Last Admin: 03/16/17 10:16 Dose: 10 mg Heparin Sodium (Porcine) (Heparin -) 5,000 unit SQ BID [facility] Last Admin: 03/16/17 21:22 Dose: 5,000 unit Insulin Aspart (Novolog Vial Sliding Scale -) 1 vial SQ ACHS [facility] PRN Reason: Protocol Last Admin: 03/17/17 06:37 Dose: 2 units Metoprolol Tartrate (Lopressor Injection -) 5 mg IVPUSH Q6H PRN Metoprolol Tartrate (Lopressor -) 50 mg PO TID [facility] Last Admin: 03/17/17 06:37 Dose: 50 mg Mirtazapine (Remeron -) 15 mg PO HS [facility] Last Admin: 03/16/17 21:22 Dose: 15 mg Multivitamins/Minerals/Vitamin C (Tab-A-Vit -) 1 tab PO DAILY [facility] Last Admin: 03/16/17 10:16 Dose: 1 tab Spironolactone (Aldactone -) 25 mg PO DAILY [facility] Last Admin: 03/16/17 10:16 Dose: 25 mg Tamsulosin HCl (Flomax -) 0.4 mg PO 1630 [facility] Last Admin: 03/16/17 16:31 Dose: 0.4 mg - Objective Vital Signs: Vital Signs Temperature 98.1 F 03/17/17 06:46 Pulse Rate 100 H 03/17/17 06:46 Respiratory Rate 16 03/17/17 06:46 Blood Pressure 122/76 03/17/17 06:46 O2 Sat by Pulse Oximetry (%) 99 03/16/17 21:00 Constitutional: Yes: Calm Eyes: Yes: WNL HENT: Yes: WNL Neck: Yes: WNL Cardiovascular: Yes: Pulse Irregular Respiratory: Yes: Regular Gastrointestinal: Yes: Soft Genitourinary: No: Anuria Musculoskeletal: Yes: Muscle Weakness, Other Extremities: Yes: Cold, Other (bilatera gangrene of multiple toes) Edema: No Peripheral Pulses WNL: No Peripheral Pulses: Left Doralis Pedis: 1+, Right Dorsalis Pedis: 1+ Integumentary: Yes: Pressure Ulcer Neurological: Yes: Confusion, Weakness Psychiatric: Yes: Other (dementia) Labs: CBC, BMP 03/16/17 06:30 03/16/17 06:30 INR, PTT INR 1.33 (0.82-1.09) H 02/24/17 11:30 - ....Imaging X-ray: Report Reviewed (RLE angiogram: 95% TP stenosis) Problem List - Problems (1) Atrial fibrillation Assessment/Plan: Pt with AF; periods of both tachycardia(though now seldom) and slow VR. Changed metoprolol tartrate to q 8 hrs; f/u HR and BP. Digoxin stopped (poor LVEF; adverse reaction risk is high, including possible increased mortality); attempt to control HR and CHF with Beta blockers and other agents. On ASA and Plavix (NSTEMI earlier this year); ?not a candidate for warfarin or NOAC (and presently scheduled for retrograde angiogram). Code(s): I48.91 - UNSPECIFIED ATRIAL FIBRILLATION Qualifiers: Qualified Code(s): I48.91 - Unspecified atrial fibrillation (2) Sepsis Code(s): A41.9 - SEPSIS, UNSPECIFIED ORGANISM Qualifiers: Qualified Code(s): A41.9 - Sepsis, unspecified organism (3) Tachycardia Assessment/Plan: AF with periods of RVR, which have lessened; now with occasional slow VR, including today. On metoprolol; dose was recently increased; will change to q8hrs. Digoxin discontinued. Maintain hydration. Code(s): R00.0 - TACHYCARDIA, UNSPECIFIED (4) ACS (acute coronary syndrome) Assessment/Plan: s/p NSTEMI 12/28. Pt's family opted at that time for conservative management (no coronary angiogram). Continue medications for systolic CHF (add lisinopril if no contraindicatons). Code(s): I24.9 - ACUTE ISCHEMIC HEART DISEASE, UNSPECIFIED (5) Dementia Assessment/Plan: Profound dementia. Pt's daughters have, in the past, discussed options for care of their father, including hospice. Now for retrograde angiogram of LE (gangrene of right foot, big toe left foot). Code(s): F03.90 - UNSPECIFIED DEMENTIA WITHOUT BEHAVIORAL DISTURBANCE (6) Hyperlipidemia Assessment/Plan: statin (hyperlipidemia; NSTEMI). Code(s): E78.5 - HYPERLIPIDEMIA, UNSPECIFIED (7) Infection of left foot Assessment/Plan: Treated for UTI; blood and urine cultures now negative. For retrograde angiogram in am (right 90% TP stenosis). Code(s): L08.9 - LOCAL INFECTION OF THE SKIN AND SUBCUTANEOUS TISSUE, UNSP (8) NSTEMI (non-ST elevated myocardial infarction) Assessment/Plan: hx NSTEMI earlier this year; severely reduced LVEF. On clopidogrel and ASA, metoprolol; add statin (LDL 122 mg/dL 11/27). Code(s): I21.4 - NON-ST ELEVATION (NSTEMI) MYOCARDIAL INFARCTION (9) Diabetes Assessment/Plan: lisinopril for renal protection and systolic CHF, unless contraindications exist. Code(s): E11.9 - TYPE 2 DIABETES MELLITUS WITHOUT COMPLICATIONS (10) Normocytic anemia Code(s): D64.9 - ANEMIA, UNSPECIFIED (11) Systolic CHF Assessment/Plan: On Aldactone and metoprolol. Add ACEI if BUN/Cr and electrolytes allow. F/u BUN/Cr, electrolytes, Is and OS, daily weights. Serial TNI. Code(s): I50.20 - UNSPECIFIED SYSTOLIC (CONGESTIVE) HEART FAILURE
[2017-03-17] MEDS: DONEPEZIL HCL 10 MG TABLET (FP) PO SCH (10:20)
[2017-03-17] MEDS: ASPIRIN 81 MG CHEWABLE TABLETS PO SCH (10:20)
[2017-03-17] MEDS: MULTIVITAMINS (DAILY MVI) TABLET (FP) PO SCH (10:20)
[2017-03-17] MEDS: clonazePAM 0.5 MG TABLET PO SCH ×2 (10:21→21:14)
[2017-03-17] MEDS: SPIRONOLACTONE 25 MG TABLET (FP) PO SCH (10:21)
[2017-03-17] MEDS: CLOPIDOGREL BISULFATE 75 MG TABLET (FP) PO SCH (10:21)
[2017-03-17] MEDS: HEPARIN NA (PORCINE) 5,000 UNITS/ML 1ML VIAL SQ SCH ×2 (10:22→21:13)
--- NOTE | 2017-03-17 15:47 | PN ---
Progress Note, Physician History of Present Illness: No new complaints - Current Medication List Current Medications: Active Medications Acetaminophen (Tylenol Suppository -) 650 mg [place] Q6H PRN PRN Reason: FEVER Last Admin: 03/15/17 23:11 Dose: 650 mg Aspirin (Asa -) 81 mg PO DAILY [facility] [place] Last Admin: 03/17/17 10:20 Dose: 81 mg Atorvastatin Calcium (Lipitor -) 10 mg PO HS [facility] Clonazepam (Klonopin -) 0.5 mg PO BID [facility] Last Admin: 03/17/17 10:21 Dose: 0.5 mg Clopidogrel Bisulfate (Plavix -) 75 mg PO DAILY [facility] Last Admin: 03/17/17 10:21 Dose: 75 mg Donepezil HCl (Aricept -) 10 mg PO DAILY [facility] Last Admin: 03/17/17 10:20 Dose: 10 mg Heparin Sodium (Porcine) (Heparin -) 5,000 unit SQ BID [facility] [place] Last Admin: 03/17/17 10:22 Dose: 5,000 unit Insulin Aspart (Novolog Vial Sliding Scale -) 1 vial SQ ACHS [facility] PRN Reason: Protocol Last Admin: 03/17/17 12:14 Dose: 2 units Metoprolol Tartrate (Lopressor Injection -) 5 mg IVPUSH Q6H PRN Metoprolol Tartrate (Lopressor -) 50 mg PO TID [facility] Last Admin: 03/17/17 14:52 Dose: 50 mg Mirtazapine (Remeron -) 15 mg PO HS [facility] Last Admin: 03/16/17 21:22 Dose: 15 mg Multivitamins/Minerals/Vitamin C (Tab-A-Vit -) 1 tab PO DAILY [facility] Last Admin: 03/17/17 10:20 Dose: 1 tab Spironolactone (Aldactone -) 25 mg PO DAILY [facility] [place] Last Admin: 03/17/17 10:21 Dose: 25 mg Tamsulosin HCl (Flomax -) 0.4 mg PO 1630 [facility] [place] Last Admin: 03/16/17 16:31 Dose: 0.4 mg - Objective Vital Signs: Vital Signs Temperature 97.6 F 03/17/17 09:00 Pulse Rate 98 H 03/17/17 09:00 Respiratory Rate 18 03/17/17 09:00 Blood Pressure 128/72 03/17/17 09:00 O2 Sat by Pulse Oximetry (%) 99 03/17/17 09:00 Constitutional: Yes: No Distress HENT: Yes: WNL Neck: Yes: WNL, Supple Cardiovascular: Yes: Tachycardia, Pulse Irregular Respiratory: Yes: WNL, Regular, CTA Bilaterally Gastrointestinal: Yes: WNL, Normal Bowel Sounds, Soft Extremities: Yes: Other ((+) gangrene toes/heel) Labs: CBC, BMP 03/16/17 06:30 03/16/17 06:30 INR, PTT INR 1.33 (0.82-1.09) H 02/24/17 11:30 Problem List - Problems (1) Sepsis Assessment/Plan: S/P angioplasty rt tibial Pt scheduled for angiogram after weekend DC planning after angio Code(s): A41.9 - SEPSIS, UNSPECIFIED ORGANISM Qualifiers: Qualified Code(s): A41.9 - Sepsis, unspecified organism (2) Atrial fibrillation Assessment/Plan: Hear rate improved Cont BB/dig Code(s): I48.91 - UNSPECIFIED ATRIAL FIBRILLATION Qualifiers: Qualified Code(s): I48.91 - Unspecified atrial fibrillation (3) Systolic CHF Assessment/Plan: Acute on chronic systolic CHF Cont spirinolactone monitor electrolytes Code(s): I50.20 - UNSPECIFIED SYSTOLIC (CONGESTIVE) HEART FAILURE (4) ACS (acute coronary syndrome) Assessment/Plan: Cont asa/plavix Code(s): I24.9 - ACUTE ISCHEMIC HEART DISEASE, UNSPECIFIED (5) CAD (coronary artery disease) Code(s): I25.10 - ATHSCL HEART DISEASE OF [place] CORONARY ARTERY W/O ANG PCTRS (6) Dementia Assessment/Plan: Cont aricept Pt continues to need kamilla restraints for safety Code(s): F03.90 - UNSPECIFIED DEMENTIA WITHOUT BEHAVIORAL DISTURBANCE (7) Diabetes Assessment/Plan: Cont sliding scale w/ novolog Code(s): E11.9 - TYPE 2 DIABETES MELLITUS WITHOUT COMPLICATIONS (8) HTN (hypertension) Code(s): I10 - ESSENTIAL (PRIMARY) HYPERTENSION (9) Normocytic anemia Code(s): D64.9 - ANEMIA, UNSPECIFIED (10) Hyperlipidemia Code(s): E78.5 - HYPERLIPIDEMIA, UNSPECIFIED
[2017-03-17] MEDS: TAMSULOSIN HCL 0.4 MG CAP.ER.24H (FP) PO SCH (17:04)
[2017-03-17] MEDS: MIRTAZAPINE 15 MG TABLET (FP) PO SCH (21:14)
[2017-03-17] MEDS: ATORVASTATIN CA 10 MG TABLET (FP) PO SCH (21:14)
[2017-03-18] MEDS: INSULIN SLIDING SCALE (NOVOLOG) 1 VIAL SQ SCH ×3 (06:33→17:20)
[2017-03-18] MEDS: METOPROLOL TARTRATE 50 MG TABLET (FP) PO SCH ×2 (06:33→15:26)
[2017-03-18] MEDS: clonazePAM 0.5 MG TABLET PO SCH (09:23)
[2017-03-18] MEDS: MULTIVITAMINS (DAILY MVI) TABLET (FP) PO SCH ×2 (09:24→12:15)
[2017-03-18] MEDS: SPIRONOLACTONE 25 MG TABLET (FP) PO SCH (09:24)
[2017-03-18] MEDS: DONEPEZIL HCL 10 MG TABLET (FP) PO SCH ×2 (09:25→12:15)
[2017-03-18] MEDS: CLOPIDOGREL BISULFATE 75 MG TABLET (FP) PO SCH ×2 (09:25→12:14)
[2017-03-18] MEDS: ASPIRIN 81 MG CHEWABLE TABLETS PO SCH ×2 (09:25→12:14)
[2017-03-18] MEDS: HEPARIN NA (PORCINE) 5,000 UNITS/ML 1ML VIAL SQ SCH ×2 (09:25→11:26)
[2017-03-18] MEDS ORDERED: INSULIN (NOVOLOG) ASPART 100 UNITS/ML 10ML VIAL ONE (16:49)
[2017-03-18] MEDS: TAMSULOSIN HCL 0.4 MG CAP.ER.24H (FP) PO SCH (17:21)
--- NOTE | 2017-03-18 23:53 | PN ---
Progress Note, Physician - Current Medication List Current Medications: Active Medications Acetaminophen (Tylenol Suppository -) 650 mg [place] Q6H PRN PRN Reason: FEVER Last Admin: 03/15/17 23:11 Dose: 650 mg Aspirin (Asa -) 81 mg PO DAILY [facility] Last Admin: 03/18/17 12:14 Dose: 81 mg Atorvastatin Calcium (Lipitor -) 10 mg PO HS [facility] Last Admin: 03/17/17 21:14 Dose: 10 mg Clonazepam (Klonopin -) 0.5 mg PO BID [facility] Last Admin: 03/18/17 09:23 Dose: 0.5 mg Clopidogrel Bisulfate (Plavix -) 75 mg PO DAILY [facility] Last Admin: 03/18/17 12:14 Dose: 75 mg Donepezil HCl (Aricept -) 10 mg PO DAILY [facility] Last Admin: 03/18/17 12:15 Dose: 10 mg Heparin Sodium (Porcine) (Heparin -) 5,000 unit SQ BID [facility] Last Admin: 03/18/17 11:26 Dose: 5,000 unit Insulin Aspart (Novolog Vial Sliding Scale -) 1 vial SQ ACHS [facility] PRN Reason: Protocol Last Admin: 03/18/17 17:20 Dose: Not Given Metoprolol Tartrate (Lopressor Injection -) 5 mg IVPUSH Q6H PRN Metoprolol Tartrate (Lopressor -) 50 mg PO TID [facility] Last Admin: 03/18/17 15:26 Dose: 50 mg Mirtazapine (Remeron -) 15 mg PO HS [facility] Last Admin: 03/17/17 21:14 Dose: 15 mg Multivitamins/Minerals/Vitamin C (Tab-A-Vit -) 1 tab PO DAILY [facility] Last Admin: 03/18/17 12:15 Dose: 1 tab Spironolactone (Aldactone -) 25 mg PO DAILY [facility] Last Admin: 03/18/17 09:24 Dose: 25 mg Tamsulosin HCl (Flomax -) 0.4 mg PO 1630 [facility] Last Admin: 03/18/17 17:21 Dose: 0.4 mg - Objective Vital Signs: Vital Signs Temperature 97.8 F 03/18/17 08:51 Pulse Rate 87 03/18/17 08:51 Respiratory Rate 18 03/18/17 08:51 Blood Pressure 102/53 03/18/17 08:51 O2 Sat by Pulse Oximetry (%) 98 03/18/17 08:51 Labs: CBC, BMP 03/16/17 06:30 03/16/17 06:30 INR, PTT INR 1.33 (0.82-1.09) H 02/24/17 11:30 Problem List - Problems (1) Sepsis Code(s): A41.9 - SEPSIS, UNSPECIFIED ORGANISM Qualifiers: Qualified Code(s): A41.9 - Sepsis, unspecified organism (2) Atrial fibrillation Code(s): I48.91 - UNSPECIFIED ATRIAL FIBRILLATION Qualifiers: Qualified Code(s): I48.91 - Unspecified atrial fibrillation (3) Systolic CHF Code(s): I50.20 - UNSPECIFIED SYSTOLIC (CONGESTIVE) HEART FAILURE (4) ACS (acute coronary syndrome) Code(s): I24.9 - ACUTE ISCHEMIC HEART DISEASE, UNSPECIFIED (5) CAD (coronary artery disease) Code(s): I25.10 - ATHSCL HEART DISEASE OF [place] CORONARY ARTERY W/O ANG PCTRS (6) Dementia Code(s): F03.90 - UNSPECIFIED DEMENTIA WITHOUT BEHAVIORAL DISTURBANCE (7) Diabetes Code(s): E11.9 - TYPE 2 DIABETES MELLITUS WITHOUT COMPLICATIONS (8) HTN (hypertension) Code(s): I10 - ESSENTIAL (PRIMARY) HYPERTENSION (9) Normocytic anemia Code(s): D64.9 - ANEMIA, UNSPECIFIED (10) Hyperlipidemia Code(s): E78.5 - HYPERLIPIDEMIA, UNSPECIFIED
[2017-03-19] MEDS: HEPARIN NA (PORCINE) 5,000 UNITS/ML 1ML VIAL SQ SCH ×3 (00:01→22:10)
[2017-03-19] MEDS: MIRTAZAPINE 15 MG TABLET (FP) PO SCH ×2 (00:01→22:10)
[2017-03-19] MEDS: INSULIN SLIDING SCALE (NOVOLOG) 1 VIAL SQ SCH ×5 (00:05→22:11)
[2017-03-19] MEDS: METOPROLOL TARTRATE 50 MG TABLET (FP) PO SCH ×4 (06:58→22:10)
--- NOTE | 2017-03-19 10:12 | PN ---
Progress Note (short form) - Note Progress Note: arndt draining clear urine/ patent s/p angio le will need cysto possibvle vapor as out pt
--- NOTE | 2017-03-19 10:23 | PN ---
Progress Note (short form) - Note Progress Note: Vascular surgery For Right lower ext angiogram james with retrograde puncture from foot to open anterior tibial artery. NPO past midnight. Devan Kothari DO
[2017-03-19] MEDS ORDERED: morphine CARPU-JECT 2 MG/1 ML DISP.SYRIN ONE (11:21)
[2017-03-19] MEDS ORDERED: morphine CARPU-JECT 2 MG/1 ML DISP.SYRIN IVPUSH ONE (11:30)
[2017-03-19] MEDS: clonazePAM 0.5 MG TABLET PO SCH ×4 (12:02→22:10)
[2017-03-19] MEDS: SPIRONOLACTONE 25 MG TABLET (FP) PO SCH (15:16)
[2017-03-19] MEDS: MULTIVITAMINS (DAILY MVI) TABLET (FP) PO SCH (15:17)
[2017-03-19] MEDS: DONEPEZIL HCL 10 MG TABLET (FP) PO SCH (15:17)
[2017-03-19] MEDS: CLOPIDOGREL BISULFATE 75 MG TABLET (FP) PO SCH (15:17)
[2017-03-19] MEDS: ASPIRIN 81 MG CHEWABLE TABLETS PO SCH (15:17)
[2017-03-19] MEDS: TAMSULOSIN HCL 0.4 MG CAP.ER.24H (FP) PO SCH (17:56)
[2017-03-19] MEDS: ATORVASTATIN CA 10 MG TABLET (FP) PO SCH ×2 (22:10)
[2017-03-19] MEDS: ACETAMINOPHEN 650 MG SUPP.RECT PR PRN (22:14)
--- NOTE | 2017-03-19 23:04 | PN ---
Progress Note, Physician History of Present Illness: No new complaints - Current Medication List Current Medications: Active Medications Acetaminophen (Tylenol Suppository -) 650 mg [place] Q6H PRN PRN Reason: FEVER Last Admin: 03/19/17 22:14 Dose: 650 mg Aspirin (Asa -) [address] [facility] Last Admin: 03/19/17 15:17 Dose: Not Given Atorvastatin Calcium (Lipitor -) [address] [facility] Last Admin: 03/19/17 22:10 Dose: 10 mg Clonazepam (Klonopin -) 0.[address] [facility] Last Admin: 03/19/17 22:10 Dose: 0.5 mg Clopidogrel Bisulfate (Plavix -) [address] [facility] Last Admin: 03/19/17 15:17 Dose: Not Given Donepezil HCl (Aricept -) [address] [facility] Last Admin: 03/19/17 15:17 Dose: Not Given Heparin Sodium (Porcine) (Heparin -) 5,[address] [facility] Last Admin: 03/19/17 22:10 Dose: 5,000 unit Insulin Aspart (Novolog Vial Sliding Scale -) [address] [facility] PRN Reason: Protocol Last Admin: 03/19/17 22:11 Dose: Not Given Metoprolol Tartrate (Lopressor Injection -) 5 mg IVPUSH Q6H PRN Metoprolol Tartrate (Lopressor -) [address] [facility] Last Admin: 03/19/17 22:10 Dose: 50 mg Mirtazapine (Remeron -) [address] [facility] Last Admin: 03/19/17 22:10 Dose: 15 mg Multivitamins/Minerals/Vitamin C (Tab-A-Vit -) [address] [facility] Last Admin: 03/19/17 15:17 Dose: Not Given Spironolactone (Aldactone -) [address] [facility] Last Admin: 03/19/17 15:16 Dose: Not Given Tamsulosin HCl (Flomax -) 0.[address] [facility] Last Admin: 03/19/17 17:56 Dose: Not Given - Objective Vital Signs: Vital Signs Temperature 97.8 F 03/19/17 14:31 Pulse Rate 77 03/19/17 14:31 Respiratory Rate 18 03/19/17 14:31 Blood Pressure 121/54 03/19/17 14:31 O2 Sat by Pulse Oximetry (%) 99 03/19/17 09:00 Constitutional: Yes: No Distress HENT: Yes: WNL Neck: Yes: WNL, Supple Cardiovascular: Yes: Pulse Irregular Respiratory: Yes: WNL, Regular, CTA Bilaterally Gastrointestinal: Yes: WNL, Normal Bowel Sounds, Soft Extremities: Yes: Other ((+) gangrene toes/heel) Labs: CBC, BMP 03/16/17 06:30 03/16/17 06:30 INR, PTT INR 1.33 (0.82-1.09) H 02/24/17 11:30 Problem List - Problems (1) Sepsis Assessment/Plan: Pt scheduled for angiogram in am Code(s): A41.9 - SEPSIS, UNSPECIFIED ORGANISM Qualifiers: Qualified Code(s): A41.9 - Sepsis, unspecified organism (2) Atrial fibrillation Assessment/Plan: Hear rate improved Cont BB/dig Code(s): I48.91 - UNSPECIFIED ATRIAL FIBRILLATION Qualifiers: Qualified Code(s): I48.91 - Unspecified atrial fibrillation (3) Systolic CHF Assessment/Plan: Acute on chronic systolic CHF Cont spirinolactone monitor electrolytes Code(s): I50.20 - UNSPECIFIED SYSTOLIC (CONGESTIVE) HEART FAILURE (4) ACS (acute coronary syndrome) Assessment/Plan: Cont asa/plavix Code(s): I24.9 - ACUTE ISCHEMIC HEART DISEASE, UNSPECIFIED (5) CAD (coronary artery disease) Code(s): I25.10 - ATHSCL HEART DISEASE OF [place] CORONARY ARTERY W/O ANG PCTRS (6) Dementia Assessment/Plan: Cont aricept Pt continues to need kamilla restraints for safety Code(s): F03.90 - UNSPECIFIED DEMENTIA WITHOUT BEHAVIORAL DISTURBANCE (7) Diabetes Assessment/Plan: Cont sliding scale w/ novolog Code(s): E11.9 - TYPE 2 DIABETES MELLITUS WITHOUT COMPLICATIONS (8) HTN (hypertension) Code(s): I10 - ESSENTIAL (PRIMARY) HYPERTENSION (9) Normocytic anemia Code(s): D64.9 - ANEMIA, UNSPECIFIED (10) Hyperlipidemia Code(s): E78.5 - HYPERLIPIDEMIA, UNSPECIFIED
[2017-03-20] MEDS: METOPROLOL TARTRATE 50 MG TABLET (FP) PO SCH ×3 (05:34→21:38)
[2017-03-20] MEDS: INSULIN SLIDING SCALE (NOVOLOG) 1 VIAL SQ SCH ×4 (06:13→21:27)
[2017-03-20] MEDS: MULTIVITAMINS (DAILY MVI) TABLET (FP) PO SCH (09:10)
[2017-03-20] MEDS: HEPARIN NA (PORCINE) 5,000 UNITS/ML 1ML VIAL SQ SCH ×2 (09:10→21:38)
[2017-03-20] MEDS: CLOPIDOGREL BISULFATE 75 MG TABLET (FP) PO SCH (09:11)
[2017-03-20] MEDS: ASPIRIN 81 MG CHEWABLE TABLETS PO SCH (09:11)
[2017-03-20] MEDS: SPIRONOLACTONE 25 MG TABLET (FP) PO SCH (09:11)
[2017-03-20] MEDS: clonazePAM 0.5 MG TABLET PO SCH ×2 (09:11→21:39)
[2017-03-20] MEDS: DONEPEZIL HCL 10 MG TABLET (FP) PO SCH (09:11)
[2017-03-20] MEDS ORDERED: MIDAZOLAM HCL 2 MG/2 ML SINGLE DOSE VIAL ONE (13:44)
[2017-03-20] MEDS ORDERED: HEPARIN NA (PORCINE) 5,000 UNITS/ML 1ML VIAL ONE (13:44)
[2017-03-20] MEDS ORDERED: PROPOFOL 20 ML ONE (14:18)
[2017-03-20] MEDS ORDERED: LIDOCAINE HCL 1%, 10 MG/ML (20ML VIAL) NR ONE (14:36)
--- NOTE | 2017-03-20 15:09 | OP ---
Operative Note - Note: Operative Date: 03/20/17 Pre-Operative Diagnosis: right foot gangrene Operation: attempted right lower extremity angiogram. Findings: attempted cannulation of right DP artery Artery is closed Post-Operative Diagnosis: Same as Pre-op Surgeon: Devan Kothari Anesthesia: Fractional Estimated Blood Loss (mls): 1 Operative Report Dictated: Yes
--- NOTE | 2017-03-20 15:12 | PN ---
Progress Note (short form) - Note Progress Note: VAscular Surgery S/P attempted pedal angiogram. Artery is closed. No more surgical intervention Conservative care. Devan Kothari DO
[2017-03-20] MEDS ORDERED: METOPROLOL TARTRATE 5 MG/5 ML VIAL IVPUSH PRN (16:05)
[2017-03-20] MEDS ORDERED: TAMSULOSIN HCL 0.4 MG CAP.ER.24H (FP) PO SCH (16:30)
[2017-03-20] MEDS ORDERED: MIRTAZAPINE 15 MG TABLET (FP) PO SCH (22:00)
[2017-03-20] MEDS ORDERED: ATORVASTATIN CA 10 MG TABLET (FP) PO SCH (22:00)
--- NOTE | 2017-03-20 23:31 | PN ---
Progress Note, Physician - Current Medication List Current Medications: Active Medications Acetaminophen (Tylenol Suppository -) 650 mg [place] Q6H PRN PRN Reason: FEVER Aspirin (Asa -) 81 mg PO DAILY [facility] Atorvastatin Calcium (Lipitor -) 10 mg PO HS [facility] Last Admin: 03/20/17 21:39 Dose: 10 mg Clonazepam (Klonopin -) 0.5 mg PO BID [facility] Last Admin: 03/20/17 21:39 Dose: 0.5 mg Clopidogrel Bisulfate (Plavix -) 75 mg PO DAILY [facility] Donepezil HCl (Aricept -) 10 mg PO DAILY [facility] Heparin Sodium (Porcine) (Heparin -) 5,000 unit SQ BID [facility] Last Admin: 03/20/17 21:38 Dose: 5,000 unit Insulin Aspart (Novolog Vial Sliding Scale -) 1 vial SQ ACHS [facility] PRN Reason: Protocol Last Admin: 03/20/17 21:27 Dose: Not Given Metoprolol Tartrate (Lopressor -) 50 mg PO TID [facility] Last Admin: 03/20/17 21:38 Dose: 50 mg Metoprolol Tartrate (Lopressor Injection -) 5 mg IVPUSH Q6H PRN Mirtazapine (Remeron -) 15 mg PO HS [facility] Last Admin: 03/20/17 21:39 Dose: 15 mg Multivitamins/Minerals/Vitamin C (Tab-A-Vit -) 1 tab PO DAILY [facility] Spironolactone (Aldactone -) 25 mg PO DAILY [facility] Tamsulosin HCl (Flomax -) 0.4 mg PO DAILY@1630 [facility] Last Admin: 03/20/17 17:00 Dose: Not Given - Objective Vital Signs: Vital Signs Temperature 97.5 F L 03/20/17 21:00 Pulse Rate 118 H 03/20/17 21:00 Respiratory Rate 18 03/20/17 21:00 Blood Pressure 114/74 03/20/17 21:00 O2 Sat by Pulse Oximetry (%) 99 03/20/17 21:00 Labs: CBC, BMP 03/16/17 06:30 03/16/17 06:30 INR, PTT INR 1.33 (0.82-1.09) H 02/24/17 11:30 Problem List - Problems (1) Sepsis Assessment/Plan: Rt pedal angiogram showed closed artery As per vascular no surgical intervention at this time DC planning for am to STR Code(s): A41.9 - SEPSIS, UNSPECIFIED ORGANISM Qualifiers: Qualified Code(s): A41.9 - Sepsis, unspecified organism (2) Atrial fibrillation Assessment/Plan: Hear rate improved Cont BB/dig Code(s): I48.91 - UNSPECIFIED ATRIAL FIBRILLATION Qualifiers: Qualified Code(s): I48.91 - Unspecified atrial fibrillation (3) Systolic CHF Assessment/Plan: Acute on chronic systolic CHF Cont spirinolactone monitor electrolytes Code(s): I50.20 - UNSPECIFIED SYSTOLIC (CONGESTIVE) HEART FAILURE (4) ACS (acute coronary syndrome) Assessment/Plan: Cont asa/plavix Code(s): I24.9 - ACUTE ISCHEMIC HEART DISEASE, UNSPECIFIED (5) CAD (coronary artery disease) Code(s): I25.10 - ATHSCL HEART DISEASE OF [place] CORONARY ARTERY W/O ANG PCTRS (6) Dementia Code(s): F03.90 - UNSPECIFIED DEMENTIA WITHOUT BEHAVIORAL DISTURBANCE (7) Diabetes Code(s): E11.9 - TYPE 2 DIABETES MELLITUS WITHOUT COMPLICATIONS (8) HTN (hypertension) Code(s): I10 - ESSENTIAL (PRIMARY) HYPERTENSION (9) Normocytic anemia Code(s): D64.9 - ANEMIA, UNSPECIFIED (10) Hyperlipidemia Code(s): E78.5 - HYPERLIPIDEMIA, UNSPECIFIED
[2017-03-21] MEDS: ACETAMINOPHEN 650 MG SUPP.RECT PR PRN ×2 (03:29→11:32)
[2017-03-21] MEDS: METOPROLOL TARTRATE 50 MG TABLET (FP) PO SCH ×2 (05:46→14:00)
[2017-03-21] MEDS: INSULIN SLIDING SCALE (NOVOLOG) 1 VIAL SQ SCH ×2 (06:05→11:38)
--- NOTE | 2017-03-21 06:09 | OP ---
DATE OF OPERATION: 03/20/2017 PREOPERATIVE DIAGNOSIS: Right foot gangrene. POSTOPERATIVE DIAGNOSIS: Right foot gangrene. PROCEDURE: Attempted right foot pedal access for right lower extremity angiogram. SURGEON: Devan Newberry DO ANESTHESIA: Fractional. BLOOD LOSS: 2 mL. The patient is a 77-year-old male with right foot gangrene. We performed an angiogram of the right lower extremity last week, showing that he has minimal runoff into his foot. He does have a DP in his foot, so it was decided that we would bring him back to do retrograde access of the DP to open his anterior tibial artery that is occluded. Patient's family was consented for the procedure, citing all risks, benefits, and alternatives. Then taken to the operating room in the supine manner and the area of the right foot was prepped and draped in a sterile surgical manner. We did under ultrasound guidance visualize the right dorsalis pedis artery in the foot. We then injected 5 mL of lidocaine over the artery. We then used our micropuncture needle and punctured the right dorsalis pedis artery under ultrasound guidance. We got a flash of some blood in the needle, but the artery was so occluded that the wire will not pass beyond our access. At this point, due to the fact that the artery is completely occluded which we found on antegrade angiogram last week, there is no way that we can access this artery. At this point, we took out our needle. Pressure was held for 2 minutes. After there was no more bleeding, the area was wet and dried and patient was transferred to PACU. Total blood loss: 2 mL. At this point, patient will just need conservative care. DEVAN NEWBERRY DO [employer]/[id number]
[2017-03-21 06:54] LABS: BASOPHIL 0.4 % (0-2.0); EOSINOPHIL 0.6 % (0-4.5); MCH 25.9 pg (25.7-33.7); MCHC 31.7 g/dl (32.0-35.9); MEAN CELL VOLUME 81.6 fl (80-96); MEAN PLT VOLUME 7.2 fl (7.5-11.1); NEUTROPHILS 79.3 % (42.8-82.8); PLATELET COUNT 553 K/MM3 (134-434); RDW 20.3 % (11.9-15.9); WHITE BLOOD COUNT 13.9 K/mm3 (4.0-10.0)
[2017-03-21 07:23] LABS: ALBUMIN 1.5 g/dl (3.4-5.0); ANION GAP 9 (8-16); BILIRUBIN,TOTAL 0.4 mg/dL (0.2-1.0); CALCIUM 8.3 mg/dL (8.5-10.1); CO2 26 mmol/L (21-32); CREATININE 0.7 mg/dL (0.7-1.3); GLUCOSE,RANDOM 121 mg/dL (74-106); SGOT/AST 11 U/L (15-37); SGPT/ALT 10 U/L (12-78); TOT PROT 5.8 g/dl (6.4-8.2)
[2017-03-21 07:24] LABS: ALK PHOS 74 U/L (45-117)
[2017-03-21] MEDS ORDERED: PT OWN MED DRAWER 7, Y5N ONE (09:49)
[2017-03-21] MEDS ORDERED: CLOPIDOGREL BISULFATE 75 MG TABLET (FP) PO SCH (10:00)
[2017-03-21] MEDS ORDERED: ASPIRIN 81 MG CHEWABLE TABLETS PO SCH (10:00)
[2017-03-21] MEDS ORDERED: MULTIVITAMINS (DAILY MVI) TABLET (FP) PO SCH (10:00)
[2017-03-21] MEDS ORDERED: SPIRONOLACTONE 25 MG TABLET (FP) PO SCH (10:00)
[2017-03-21] MEDS ORDERED: DONEPEZIL HCL 10 MG TABLET (FP) PO SCH (10:00)
[2017-03-21] MEDS: clonazePAM 0.5 MG TABLET PO SCH (10:08)
[2017-03-21] MEDS: HEPARIN NA (PORCINE) 5,000 UNITS/ML 1ML VIAL SQ SCH (10:08)
--- NOTE | 2017-03-21 13:51 | DS ---
Physical Examination Vital Signs: Vital Signs Temperature 98.0 F 03/21/17 06:00 Pulse Rate 103 H 03/21/17 06:00 Respiratory Rate 18 03/21/17 06:00 Blood Pressure 105/60 03/21/17 06:00 O2 Sat by Pulse Oximetry (%) 99 03/20/17 21:00 Labs: CBC, BMP 03/21/17 06:00 03/21/17 06:00 Discharge Summary Reason For Visit: UTI; TACHYCARDIA; OPEN WOUND LEFT FOOT Current Active Problems Atrial fibrillation (Acute) Open wound of left foot (Acute) Sepsis (Acute) Systolic CHF (Acute) Tachycardia (Acute) UTI (urinary tract infection) (Acute) Urinary retention (Acute) Gangrene foot HTN Dementia Anemia CAD Hospital Course: Pt is a 76-year-old male with PMH significant for of Alzheimer's, HLD, NIDDM, CHF, sepsis, esbl uti, anemia and HTN. Pt unable to give history due to dementia. Pt presented to ER bc of gangrene of right foot and was sent by request of Dr. Kothari, vascular, for workup and angiogram. Pt has been monitored on tele for tachycardia and followed by cardio. His medications were adjusted and digoxin was added. Pt was seen by vascular Dr Kothari and had S/P angioplasty rt tibial artery however pt also had angiogram of rt foot wc was found to be closed and vascular surgeon determined no further surgical intervention was needed. Pt treated w/ IV antibxs for gangrene of rt foot and he is now off antibxs. Pt was followed by infectious disease consult. Pt no can be transferred to [facility] however will need arndt cath for urinary retention/ neurogenic bladder and needs kamilla peraltas prn to ensure he does not pull out arndt due to his advanced dementia. Condition: Good - Instructions Diet, Activity, Other Instructions: 2 gram sodium diet 2200 calorie ada diet Referrals: Remigio Del Toro MD [Primary Care Provider] - [facility]position: [facility] - Home Medications Comprehensive Discharge Medication List: Ambulatory Orders ASA 81 mg daily Mirtazapine [Remeron -] 15 mg PO HS 02/24/17 Atorvastatin Ca [Lipitor] 10 mg PO HS tablet 03/21/17 Clonazepam [Klonopin -] 0.5 mg PO BID #30 tablet MDD 2 03/21/17 Clopidogrel Bisulfate [Plavix -] 75 mg PO DAILY tablet 03/21/17 Donepezil HCl [Aricept -] 10 mg PO DAILY tablet 03/21/17 Insulin Sliding Scale [Novolog Vial Sliding Scale -] 1 vial SQ ACHS units 03/21 Metoprolol Tartrate [Lopressor -] 50 mg PO TID tablet 03/21/17 Mirtazapine [Remeron -] 15 mg PO HS tablet 03/21/17 Multivitamins [Multivit ([facility] Formulary)] 1 tab PO DAILY tab 03/21/17 Spironolactone [Aldactone -] 25 mg PO DAILY tablet 03/21/17 Tamsulosin HCl [Flomax -] 0.4 mg PO DAILY@1630 #30 tab 03/21/17
[2017-03-21 15:13] VITALS: BP 100/75; PULSE 118; TEMP 97.7
== END 2017-03-21 16:56 | DRG 710 ==
LOC: JER 10:23 → JERBED 14:42 → J4S 17:15
PROVIDERS: ADMIT Internal Medicine; ATTEND Internal Medicine
PROC: 0T9B70Z Drainage of Bladder with Drainage Device, Via Natural or Artificial Opening (ICD-10-PCS; 2017-02-25)
PROC: 3E05317 Introduction of Other Thrombolytic into Peripheral Artery, Percutaneous Approach (ICD-10-PCS; 2017-03-13)
PROC: B41DZZZ Fluoroscopy of Aorta and Bilateral Lower Extremity Arteries (ICD-10-PCS; 2017-03-13)
PROC: B41FZZZ Fluoroscopy of Right Lower Extremity Arteries (ICD-10-PCS; 2017-03-13)
PROC: 047P3ZZ Dilation of Right Anterior Tibial Artery, Percutaneous Approach (ICD-10-PCS; principal; 2017-03-13 11:00)
PROC: B44FZZZ Ultrasonography of Right Lower Extremity Arteries (ICD-10-PCS; 2017-03-20)
DX: A41.9 Sepsis, unspecified organism (principal); I70.261 Atherosclerosis of native arteries of extremities with gangrene, right leg; I50.23 Acute on chronic systolic (congestive) heart failure; G30.9 Alzheimer's disease, unspecified; F02.80 Dementia in other diseases classified elsewhere, unspecified severity, without behavioral disturbance, psychotic disturbance, mood disturbance, and anxiety; E78.00 Pure hypercholesterolemia, unspecified; E11.9 Type 2 diabetes mellitus without complications; I10 Essential (primary) hypertension; I25.2 Old myocardial infarction; D64.9 Anemia, unspecified; R13.10 Dysphagia, unspecified; T83.511D Infection and inflammatory reaction due to indwelling urethral catheter, subsequent encounter; F31.9 Bipolar disorder, unspecified; F41.9 Anxiety disorder, unspecified; I48.91 Unspecified atrial fibrillation; I25.10 Atherosclerotic heart disease of native coronary artery without angina pectoris; Z79.84 Long term (current) use of oral hypoglycemic drugs; Z86.73 Personal history of transient ischemic attack (TIA), and cerebral infarction without residual deficits; N39.0 Urinary tract infection, site not specified; T83.021A Displacement of indwelling urethral catheter, initial encounter; R33.8 Other retention of urine; Y84.6 Urinary catheterization as the cause of abnormal reaction of the patient, or of later complication, without mention of misadventure at the time of the procedure; Y92.122 Bedroom in nursing home as the place of occurrence of the external cause; R00.0 Tachycardia, unspecified; I24.9 Acute ischemic heart disease, unspecified; S91.302A Unspecified open wound, left foot, initial encounter
CPT/HCPCS: 36415; 71010-TC; 76000-TC; 76775-TC; 76856-TC; 80048; 80053; 80162; 81003; 81015; 83605; 83735; 84443; 84484; 85025; 85027; 85610; 86850; 86900; 86901; 87040; 87077; 87086; 87186; 93005; 93010; 94760; 99285-25; J0637; J1644

== ENCOUNTER 2017-04-07 12:58 | Inpatient (IN) | payer OTHER ==
[2017-04-07 13:43] VITALS: BMI 19.3
--- NOTE | 2017-04-07 14:55 | PDOC ---
History of Present Illness - General History Source: [facility], Unavil. due to pt. cond. <Svetlana Meza - Last Filed: 04/07/17 16:30> - General History Source: [facility] - History of Present Illness Initial Comments: 04/07/17 15:56 77 y/o M with a PMHx of Alzheimer's, HLD, NIDDM, and HTN, chronic foot ulcers presents to the ED via EMS from [facility] with change in mental status and foul smelling foot ulcers. Per [place] records, patient has an elevated WBC. <Ana Maria Infante - Last Filed: 04/07/17 16:34> - General Chief Complaint: Revisit, Lab Variance Stated Complaint: ELEVATED WHITE COUNT Past History - Past Medical History Anemia: Yes Asthma: No Cancer: No Cardiac Disorders: Yes (NSTEMI) CVA: Yes (DYSPHAGIA) COPD: No CHF: No Dementia: Yes (ALZHEIMERS.) Diabetes: Yes GI Disorders: No Disorders: No HTN: Yes Hypercholesterolemia: No Liver Disease: No Psychiatric Problems: Yes (ANXIETY, BIPOLAR) Seizures: No Thyroid Disease: No - Surgical History Abdominal Surgery: No Appendectomy: No Cardiac Surgery: No Cholecystectomy: No Lung Surgery: No Neurologic Surgery: No Orthopedic Surgery: No - Suicide/Smoking/Psychosocial Hx Smoking History: Unknown if ever smoked Have you smoked in the past 12 months: No Hx Alcohol Use: No Drug/Substance Use Hx: No Substance Use Type: None Hx Substance Use Treatment: No <Svetlana Meza - Last Filed: 04/07/17 16:30> <Ana Maria Infante - Last Filed: 04/07/17 16:34> - Past Medical History Allergies/Adverse Reactions: Allergies Allergy/AdvReac Type Severity Reaction Status Date / Time No Known Allergies Allergy Verified 02/24/17 10:36 Home Medications: Ambulatory Orders Cyanocobalamin (Vitamin B-12) [Vitamin B-12] 1,000 mcg PO DAILY 10/04/16 Metformin HCl [Metformin HCl ER] 1,000 mg PO BID 11/26/16 Spironolactone [Aldactone -] 25 mg PO DAILY #0 tablet 01/17/17 Multivitamins [Multivit ([facility] Formulary)] 1 tab PO DAILY 01/29/17 Vit A/Vitamin D3/E/Aloe V/Znox [Periguard Ointment] 0 gm TP TID 01/29/17 Clopidogrel Bisulfate [Plavix -] 75 mg PO DAILY tablet 02/04/17 Acetaminophen [Pain Relief] 650 mg PO DAILY 02/24/17 Mirtazapine [Remeron -] 15 mg PO HS 02/24/17 Aspirin [ASA -] 81 mg PO DAILY tab.chew 03/21/17 Donepezil HCl [Aricept -] 10 mg PO DAILY tablet 03/21/17 Insulin Sliding Scale [Novolog Vial Sliding Scale -] 1 vial SQ ACHS units 03/21 Metoprolol Tartrate [Lopressor -] 50 mg PO TID tablet 03/21/17 Tamsulosin HCl [Flomax -] 0.4 mg PO DAILY@1630 #30 tab 03/21/17 Amino Acids/Protein Hydrolys [Pro-Stat Sugar Free Liquid Pkt] 30 ml PO BID 04/07 Clonazepam [Klonopin -] 0.5 mg PO Q12H MDD 2 04/07/17 Review of Systems - Review of Systems Able to Perform ROS?: No (dementia) <Ana Maria Infante - Last Filed: 04/07/17 16:34> *Physical Exam - Vital Signs Last Vital Signs Temp Pulse Resp BP Pulse Ox 97.3 F L 86 20 165/100 95 04/07/17 13:41 04/07/17 13:41 04/07/17 13:41 04/07/17 13:41 04/07/17 13:41 <Svetlana Meza - Last Filed: 04/07/17 16:30> - Vital Signs Last Vital Signs Temp Pulse Resp BP Pulse Ox 98.5 F 158 H 30 H 101/73 95 04/07/17 15:42 04/07/17 15:42 04/07/17 15:42 04/07/17 15:42 04/07/17 13:41 - Physical Exam Comments: 04/07/17 15:56 GENERAL: Awake, confused. HEAD: No signs of trauma EYES: PERRLA, EOMI, sclera anicteric, conjunctiva clear ENT: Auricles normal inspection, nares patent, oropharynx clear without exudates. Moist mucosa NECK: Normal ROM, supple, no lymphadenopathy, JVD, or masses LUNGS: Breath sounds equal, clear to auscultation bilaterally. No wheezes, and no crackles HEART: Irregular tachycardia. Regular rhythm, normal S1 and S2, no murmurs, rubs or gallops ABDOMEN: Soft, nontender, normoactive bowel sounds. No guarding, no rebound. No masses EXTREMITIES: Normal range of motion, no edema. Right foot is cold, black gangrene no palpable dp or tp pulses, foul smelling, non palpable popliteal pulse, 2+ bounding femoral pulse. NEUROLOGICAL: Cranial nerves II through XII grossly intact. SKIN: Warm, Dry, normal turgor, no rashes or lesions noted. <Ana Maria Infante - Last Filed: 04/07/17 16:34> Heart Score/ECG Review #1 04/07/17 16:34 Atrial fibrillation with rapid ventricular response, 151 bpm. <Ana Maria Infante - Last Filed: 04/07/17 16:34> ED Treatment Course - LABORATORY CBC & Chemistry Diagram: 04/07/17 14:27 04/07/17 15:05 - RADIOLOGY Radiology Studies Ordered: Category Date Time Status CHEST X-RAY PORTABLE* [RAD] Stat Radiology 04/07/17 14:31 Ordered <Svetlana Meza - Last Filed: 04/07/17 16:30> - LABORATORY CBC & Chemistry Diagram: 04/07/17 14:27 04/07/17 15:05 - ADDITIONAL ORDERS Additional order review: Laboratory Results 04/07/17 15:05 Sodium 145 Potassium 4.9 Chloride 109 H Carbon Dioxide 24 Anion Gap 12 BUN 39 H D Creatinine 1.3 D Creat Clearance w eGFR 53.53 Random Glucose 225 H D Calcium 8.7 Total Bilirubin 0.8 D AST 866 H D ALT 619 H D Total Protein 6.9 Albumin 1.8 L 04/07/17 14:27 RBC 3.71 L D MCV 81.8 MCHC 31.2 L RDW 20.3 H MPV 8.3 D Neutrophils % No Result Required. Lymphocytes % No Result Required. <ArelisAna Maria A - Last Filed: 04/07/17 16:34> Medical Decision Making - Medical Decision Making 04/07/17 14:51 77 yo male with h/o DM HTN afib, alzheimers , prior esbl uti, chf anemia., chronic foot ulcers s/ p angioplasty right leg by DR Bellamy, here from rehab facility with AMS foul smelling ulcer. pt was recenlty admitted and dc on 03/21 for infected, gangrenous foot. also had issues with chronic tachycardia, started on digoxin recently. on exam pt awake, confused, pale, dry mucous membranes. lungs clear bilaterally. heart irreg tachycardia. abd soft nt. ext cold, right foot cold, black gangrenous toes 1 - 5. nonpalp dp/ pt pulses. nuero alert oriented x 1, unable to follow commands. confused. moves all four ext. facies symmetric. differential sepsis, ischemia. plan iv antiobiotics, vascular consult labs septic workup. iv hydration. admit 04/07/17 14:55 04/07/17 15:02 04/07/17 16:12 d/ daughter scooby odom, states pt is full code. has been resistant to foot amputation due to concerns of his ability to withstand such a surgery due to h/o chf, and afib. explained to her the risk of overwhelming infection without amputation. will d/w her sister, who is also guardian also. d /w dr berry will admit pt . will require telemetry possible icu. d/w dr bellamy, will see pt in ED within the hour. 04/07/17 16:30 d?w dr BRENNER who accepted pt to ICU. awaiting surgical evaluation by DR BRENNER> <Svetlana Meza - Last Filed: 04/07/17 16:30> - Critical Care Time Total Critical Care Time (minutes): 30 Critical Care Statement: The care of this patient involved high complexity decision making to prevent further life threatening deterioration of the patient 's condition and/or to evaluate & treat vital organ system(s) failure or risk of failure. <Ana Maria Infante - Last Filed: 04/07/17 16:34> *DC/Admit/Observation/Transfer - Discharge Dispostion Admit: Yes <Svetlana Meza - Last Filed: 04/07/17 16:30> - Attestations Scribe Attestion: 04/07/17 15:56 Documentation prepared by Ana Maria Infante, acting as medical records assistant for Svetlana Meza MD. <Ana Maria Infante - Last Filed: 04/07/17 16:34> Diagnosis at time of Disposition: Gangrene, Sepsis, Atrial fibrillation with RVR - Referrals Referrals: Remigio Del Toro MD [Primary Care Provider] -
[2017-04-07 15:15] LABS: MCH 25.5 pg (25.7-33.7); MCHC 31.2 g/dl (32.0-35.9); MEAN CELL VOLUME 81.8 fl (80-96); MEAN PLT VOLUME 8.3 fl (7.5-11.1); PLATELET COUNT 510 K/MM3 (134-434); RDW 20.3 % (11.9-15.9); WHITE BLOOD COUNT 22.1 K/mm3 (4.0-10.0)
[2017-04-07 15:38] LABS: INR 1.81 (0.82-1.09); PROTHROMBIN TIME (PATIENT) 20.1 SEC (9.98-11.88)
[2017-04-07 15:38] LABS: ALBUMIN 1.8 g/dl (3.4-5.0); ANION GAP 12 (8-16); BILIRUBIN,TOTAL 0.8 mg/dL (0.2-1.0); CALCIUM 8.7 mg/dL (8.5-10.1); CO2 24 mmol/L (21-32); CREATININE 1.3 mg/dL (0.7-1.3); GLUCOSE,RANDOM 225 mg/dL (74-106); SGOT/AST 866 U/L (15-37); SGPT/ALT 619 U/L (12-78); TOT PROT 6.9 g/dl (6.4-8.2)
[2017-04-07 15:41] LABS: ACTIVATED PTT 31.3 SECONDS (26.9-34.4)
[2017-04-07 15:51] LABS: ALK PHOS 319 U/L (45-117); CPK 126 IU/L (39-308)
[2017-04-07] MEDS ORDERED: dilTIAZem HCL 50 MG/10 ML - 10 ML VIAL IVPUSH ONE (16:02)
[2017-04-07 16:03] LABS: TROPONIN I 3.57 ng/ml (0.00-0.05)
[2017-04-07] MEDS ORDERED: VANCOMYCIN 1,000 MG in DEXTROSE 5%-WATER - 250 ML IVPB ONE (16:03)
[2017-04-07] MEDS ORDERED: PIPERACILLIN/TAZOB 3.375 GM 3.375 GM in DEXTROSE 5%-WATER - 50 ML IVPB ONE (16:10)
[2017-04-07] MEDS ORDERED: ACETAMINOPHEN INJECTION 100 ML IVPB ONE (16:16)
[2017-04-07] MEDS ORDERED: ACETAMINOPHEN 1000 MG/100 ML VIAL (NON FORMULARY) IVPB ONE (16:18)
[2017-04-07 16:26] LABS: VENOUS BLOOD GAS HCO3 22.1 meq/L (19-25); VENOUS PH 7.39 (7.32-7.42)
[2017-04-07] MEDS ORDERED: PIPERACILLIN/TAZOB 3.375 GM 50 ML IVPB ONE (16:58)
[2017-04-07] MEDS ORDERED: VANCOMYCIN 1 GRAM (PRE-DOCKED) 250 ML IVPB ONE ×2 (17:08→17:09)
[2017-04-07 17:20] LABS: ANISOCYTOSIS 1+; PLATELET ESTIMATE INCREASED (NORMAL); TOTAL CELLS COUNTED 100
[2017-04-07 19:40] LABS: URINE APPEARANCE TURBID; URINE BILIRUBIN NEGATIVE (NEGATIVE); URINE BLOOD 3+ (NEGATIVE); URINE COLOR AMBER; URINE GLUCOSE (UA) NEGATIVE (NEGATIVE); URINE KETONE TRACE (NEGATIVE); URINE NITRITE NEGATIVE (NEGATIVE); URINE UROBILINOGEN 4.0 E.U/dl mg/dL (0.2-1.0)
[2017-04-07 19:41] LABS: URINE LEUK ESTERASE 2+ (NEGATIVE); URINE PROTEIN 2+ (NEGATIVE)
[2017-04-07 20:02] LABS: URINE BACTERIA MODERATE /hpf (NONE SEEN); URINE MUCUS FEW; URINE RBC 149 /hpf (0-3); URINE WBC 1479 /hpf (3-5)
--- NOTE | 2017-04-07 20:21 | PN ---
Progress Note (short form) - Note Progress Note: Vascular surgery Pt seen and examined with daughter at bedside. Right foot gangrene with ischemic foot. Will need IV antibiotics. Will plan for right bka on fri. Please clear from medical standpoint. Daughter understands plan Devan Kothari DO
[2017-04-07] MEDS ORDERED: LACTATED RINGERS SOLUTION 1,000 ML IV STA (20:45)
--- NOTE | 2017-04-07 21:11 | CONSULT ---
Consult Consult Specialty:: Pulm/CCM Reason for Consultation:: Sepsis 2/2 infected chronic BLE ulcers; UTI - History of Present Illness History of Present Illness: 77 y/o M with a PMHx of Alzheimer's, A-fib,HLD, NIDDM, and HTN, chronic foot ulcers s/p RLE angioplasty with recent admission 02/27 for sepsis 2/2 bacteremia and UTI and discharged to [place] 03/21. He presents today to the ED via EMS [facility] with AMS, leukocytosis and foul smelling foot ulcers. In ED Afebrile, BP 107/65, HR 140 A-fib; O2 sat 100% on room air. Labs notable for WBC 22.1, 9% bands, Lact 3.7, Trop 3.57, AST/RRG863/619. CXR clear, UA with >1000WBC. He was given 2L NS bolus and started on vancomycin and Zosyn. Of note pt has a hx of ESBL E-coli bacteremia and UTI (sensitive to Zosyn). Cardizem 10mg IV given for A-fib with no improvement. Seen by vascular surgery. Plan for RLE BKA on friday. He was transferred to ICU for further treatment. In ICU rec'd NAD, A+O x1, speech incoherent, T98, BP 98/73, HR 130's in A-fib with RVR, O2 sat 98% on rm air. BLE toes malodorous with dry gangrene. No c/o pain. Repeat lact 3.7, LR 1L given. Amio bolus given and drip started. - Past Medical History [employer]: Yes: Alzheimer's, Dementia Cardio/Vascular: Yes: AFIB, CHF, HTN, Hyperlipdemia Psych: Yes: Bipolar, Other Endocrine: Yes: Diabetes Mellitus Additional Medical History: diabetic and PAD associated foot ulcers bilaterally - Past Surgical History Past Surgical History: Yes: None - Alcohol/Substance Use Hx Alcohol Use: No - Smoking History Smoking history: Unknown if ever smoked Have you smoked in the past 12 months: No - Social History Usual Living Arrangement: With Child ADL: Family Assistance History of Recent Travel: No Home Medications - Allergies Allergies/Adverse Reactions: Allergies Allergy/AdvReac Type Severity Reaction Status Date / Time No Known Allergies Allergy Verified 02/24/17 10:36 - Home Medications Home Medications: Ambulatory Orders Cyanocobalamin (Vitamin B-12) [Vitamin B-12] 1,000 mcg PO DAILY 10/04/16 Metformin HCl [Metformin HCl ER] 1,000 mg PO BID 11/26/16 Spironolactone [Aldactone -] 25 mg PO DAILY #0 tablet 01/17/17 Multivitamins [Multivit ([facility] Formulary)] 1 tab PO DAILY 01/29/17 Vit A/Vitamin D3/E/Aloe V/Znox [Periguard Ointment] 0 gm TP TID 01/29/17 Clopidogrel Bisulfate [Plavix -] 75 mg PO DAILY tablet 02/04/17 Acetaminophen [Pain Relief] 650 mg PO DAILY 02/24/17 Mirtazapine [Remeron -] 15 mg PO HS 02/24/17 Aspirin [ASA -] 81 mg PO DAILY tab.chew 03/21/17 Donepezil HCl [Aricept -] 10 mg PO DAILY tablet 03/21/17 Insulin Sliding Scale [Novolog Vial Sliding Scale -] 1 vial SQ ACHS units 03/21 Metoprolol Tartrate [Lopressor -] 50 mg PO TID tablet 03/21/17 Tamsulosin HCl [Flomax -] 0.4 mg PO DAILY@1630 #30 tab 03/21/17 Amino Acids/Protein Hydrolys [Pro-Stat Sugar Free Liquid Pkt] 30 ml PO BID 04/07 Clonazepam [Klonopin -] 0.5 mg PO Q12H MDD 2 04/07/17 Family Disease History - Family Disease History Family History: Unable to Obtain Review of Systems Unable to obtain ROS, reason: Unclear responses Physical Exam Vital Signs: Vital Signs Temperature 98.5 F 04/07/17 15:42 Pulse Rate 138 H 04/07/17 20:04 Respiratory Rate 28 H 04/07/17 20:04 Blood Pressure 110/39 04/07/17 20:04 O2 Sat by Pulse Oximetry (%) 97 04/07/17 19:39 Constitutional: Yes: Anxious, Cachectic Eyes: Yes: Conjunctiva Clear, PERRL HENT: Yes: Normocephalic Neck: Yes: Trachea Midline Cardiovascular: Yes: Tachycardia Respiratory: Yes: Regular, CTA Bilaterally, On Nasal O2 Gastrointestinal: Yes: Soft, Hypoactive Bowel Sounds, Other (Flat) Renal/: Yes: [place] Present, Other (Urine with large amt sediment) Extremities: Yes: Other (Bilat toes with dry gangrene, malodorous; bilat foot and ankle ulcers) Edema: No Neurological: Yes: Other (Awake , alert, not following commands) ...Motor Strength: WNL, RUE, RLE Labs: CBC,CMP WBC 22.1 K/mm3 (4.0-10.0) H D 04/07/17 14:27 RBC 3.71 M/mm3 (4.00-5.60) L D 04/07/17 14:27 Hgb 9.5 GM/dL (11.7-16.9) L D 04/07/17 14:27 Hct 30.3 % (35.4-49) L D 04/07/17 14:27 MCV 81.8 fl (80-96) 04/07/17 14:27 MCH 25.5 pg (25.7-33.7) L 04/07/17 14:27 MCHC 31.2 g/dl (32.0-35.9) L 04/07/17 14:27 RDW 20.3 % (11.9-15.9) H 04/07/17 14:27 Plt Count 510 K/MM3 (134-434) H 04/07/17 14:27 MPV 8.3 fl (7.5-11.1) D 04/07/17 14:27 Total Counted 100 04/07/17 14:27 Neutrophils % No Result Required. 04/07/17 14:27 Neutrophils % (Manual) 78 % (42.8-82.8) 04/07/17 14:27 Band Neuts % (Manual) 9 % (0-10) 04/07/17 14:27 Lymphocytes % No Result Required. 04/07/17 14:27 Lymphocytes % (Manual) 9 % (8-40) 04/07/17 14:27 Monocytes % (Manual) 4 % (3.8-10.2) 04/07/17 14:27 Platelet Estimate Increased (NORMAL) 04/07/17 14:27 Anisocytosis 1+ 04/07/17 14:27 Sodium 145 mmol/L (136-145) 04/07/17 15:05 Potassium 4.9 mmol/L (3.5-5.1) 04/07/17 15:05 Chloride 109 mmol/L (98-107) H 04/07/17 15:05 Carbon Dioxide 24 mmol/L (21-32) 04/07/17 15:05 Anion Gap 12 (8-16) 04/07/17 15:05 BUN 39 mg/dL (7-18) H D 04/07/17 15:05 Creatinine 1.3 mg/dL (0.7-1.3) D 04/07/17 15:05 Creat Clearance w eGFR 53.53 (>60) 04/07/17 15:05 Random Glucose 225 mg/dL (74-106) H D 04/07/17 15:05 Lactic Acid 3.7 mmol/L (0.4-2.0) H* 04/07/17 17:50 Calcium 8.7 mg/dL (8.5-10.1) 04/07/17 15:05 Total Bilirubin 0.8 mg/dL (0.2-1.0) D 04/07/17 15:05 AST 866 U/L (15-37) H D 04/07/17 15:05 ALT 619 U/L (12-78) H D 04/07/17 15:05 Alkaline Phosphatase 319 U/L (45-117) H D 04/07/17 15:05 Creatine Kinase 126 IU/L (39-308) 04/07/17 15:05 Troponin I 3.57 ng/ml (0.00-0.05) H* D 04/07/17 15:05 Total Protein 6.9 g/dl (6.4-8.2) 04/07/17 15:05 Albumin 1.8 g/dl (3.4-5.0) L 04/07/17 15:05 TSH 2.40 uIU/ml (0.358-3.74) D 04/07/17 17:00 Intake & Output 04/04/17 04/05/17 04/06/17 04/07/17 23:59 23:59 23:59 23:59 Output Total 20 Balance -20 Weight 54.431 kg Imaging - Results Chest X-ray: Report Reviewed (Clear) Problem List - Problems (1) Atrial fibrillation with RVR Code(s): I48.91 - UNSPECIFIED ATRIAL FIBRILLATION (2) Gangrene Code(s): I96 - GANGRENE, NOT ELSEWHERE CLASSIFIED (3) Sepsis Code(s): A41.9 - SEPSIS, UNSPECIFIED ORGANISM Assessment/Plan 77yom with a PMHx of Alzheimer's, HLD, NIDDM, A-fib and HTN, chronic foot ulcers s/p RLE angioplasty now admitted to ICU with sepsis m/l 2/2 infected gangrenous foot ulcers and UTI also with A-fib with RVR and elevated transaminases. Plan: -Vascular consult; work-up for surgery -Fluid bolus as needed for MAP>60 -Low threshold for central line for pressors and MVO2 -trend Lactate -ID consult for hx ESBL bacteremia and UTI -Cont Zosyn and vanco by level -F/u cultures -Amio load for A-fib re hypotension -Trend troponin -Hold antihypertensives -Cont statin -ECG and TTE in am -NC O2 for O2sat>95% -Strict I+Os -Monitor BMP -Work up elevated AST/ALT alk phos possibly in setting of sepsis +/- hepatocongestion. -Abd US -DVT prophylaxis
[2017-04-07] MEDS ORDERED: FLU VACCINE QUAD 60 MCG/0.5 ML (MDV 17-18) IM ONE (21:17)
[2017-04-07] MEDS ORDERED: AMIODARONE HCL INJECTION 150 MG in DEXTROSE 5%-WATER - 97 ML IVPB ONE (21:27)
[2017-04-07] MEDS ORDERED: AMIODARONE HCL 150 MG/3 ML VIAL ONE (21:47)
[2017-04-07] MEDS ORDERED: PIPERACILLIN/TAZOB 3.375 GM/50 ML PRE-DOCKED IVPB SCH (22:00)
[2017-04-07] MEDS ORDERED: ACETAMINOPHEN 325 MG TABLET (FP) PO PRN (22:29)
[2017-04-07] MEDS: AMIODARONE HCL INJECTION 450 MG in DEXTROSE 5%-WATER - 241 ML IVPB SCH (22:54)
[2017-04-08 00:18] LABS: TROPONIN I 2.73 ng/ml (0.00-0.05)
[2017-04-08] MEDS ORDERED: SODIUM CHLORIDE 1,000 ML IV STA (00:44)
[2017-04-08] MEDS: clonazePAM 0.5 MG TABLET PO PRN ×2 (03:43→22:34)
[2017-04-08] MEDS: METOPROLOL TARTRATE 50 MG TABLET (FP) PO SCH ×2 (05:56→18:46)
[2017-04-08] MEDS ORDERED: PIPERACILLIN/TAZOB 3.375 GM/50 ML PRE-DOCKED IVPB ONE (06:00)
[2017-04-08] MEDS ORDERED: SODIUM CHLORIDE 1,000 ML IV SCH (06:00)
[2017-04-08] MEDS: INSULIN SLIDING SCALE (NOVOLOG) 1 VIAL SQ SCH ×2 (06:18→12:51)
[2017-04-08 07:21] LABS: TROPONIN I 2.55 ng/ml (0.00-0.05)
--- NOTE | 2017-04-08 08:01 | PN ---
Physical Exam: 24H Events: -ED sepsis - SUBJECTIVE: Patient seen and examined OBJECTIVE: Vital Signs Period Temp Pulse Resp BP Sys/Mcdaniel Pulse Ox Last 24 Hr 97.8 F-98.5 F 110-146 18-28 91-115/39-83 94-97 Intake & Output 04/05/17 04/06/17 04/07/17 04/08/17 23:59 23:59 23:59 23:59 Intake Total 1166 Output Total 120 200 Balance 1046 -200 Weight 54.431 kg 60.9 kg GENERAL: The patient is AOx1, awake, alert, incoherent speech (AD at baseline) EYES: sclera anicteric, conjunctiva clear ENT: moist mucous membranes. LUNGS: decreased breath sounds at bases HEART: tachycardic, irregular rhythm, no murmur ABDOMEN: soft, ntnd UPPER EXTREMITIES: wwp, no edema LOWER EXTREMITIES: bilateral necrotic, gangrenous feel R>L : arndt CBC, BMP 04/07/17 14:27 04/07/17 15:05 Hepatic Panel Total Bilirubin 0.8 mg/dL (0.2-1.0) D 04/07/17 15:05 AST 866 U/L (15-37) H D 04/07/17 15:05 ALT 619 U/L (12-78) H D 04/07/17 15:05 Alkaline Phosphatase 319 U/L (45-117) H D 04/07/17 15:05 Albumin 1.8 g/dl (3.4-5.0) L 04/07/17 15:05 Active Medications Acetaminophen (Tylenol -) 650 mg PO Q6H PRN PRN Reason: FEVER Last Admin: 04/08/17 03:43 Dose: 650 mg Aspirin (Asa -) 81 mg PO DAILY LUCY Chlorhexidine Gluconate (Hibiclens For Decolonization -) 1 applic TP HS LUCY Clonazepam (Klonopin -) 0.5 mg PO Q12H PRN PRN Reason: ANXIETY Last Admin: 04/08/17 03:43 Dose: 0.5 mg Clopidogrel Bisulfate (Plavix -) 75 mg PO DAILY LUCY Donepezil HCl (Aricept -) 10 mg PO DAILY LUCY Heparin Sodium (Porcine) (Heparin -) 5,000 unit SQ BID LUCY Amiodarone HCl 450 mg/ (Dextrose) 250 mls @ 33.33 mls/hr IVPB TITR LUCY; 1 MG/ MIN PRN Reason: Protocol Last Titration: 04/08/17 04:47 Dose: 0.5 mg/min Sodium Chloride (Normal Saline -) 1,000 mls @ 5 mls/hr IV ASDIR [facility] Last Admin: 04/08/17 06:19 Dose: 5 mls/hr Insulin Aspart (Novolog Vial Sliding Scale -) 1 vial SQ TIDAC [facility] PRN Reason: Protocol Last Admin: 04/08/17 06:18 Dose: 4 units Metoprolol Tartrate (Lopressor -) 50 mg PO TID [facility] Last Admin: 04/08/17 05:56 Dose: Not Given Mupirocin (Bactroban Ointment (For Decolonization) -) 1 applic NS BID [facility] Stop: 04/13/17 09:59 Piperacillin Sod/Tazobactam Sod (Zosyn 3.375gm Ivpb (Pre-Docked)) 3.375 gm IVPB BID [facility] PRN Reason: Protocol Tamsulosin HCl (Flomax -) 0.4 mg PO DAILY@1630 [facility] ASSESSMENT/PLAN: 77yo M with AD, NIDDM, HTN, HLD, Afib with RVR, recent admission for bacteremia and ESBL+ UTI (d/c 03/21), PAD with chronic foot ulcers s/p RLE angioplasty now with severe sepsis and gangrenous feet who will have RLE BKA tomorrow. Patient has been hypotensive, but maintaining MAP >60 with fluid rescucitation. ASA, clopidigrel, and home metoprolol dose held pre-preoperatively. #ID -ID consulted -Abx per ID (zosyn and vanc) -isolation precautions (prior ESBL bacteremia/UTI) -Trend lactate -f/u cultures #CV -Cardiology consulted -IVF to maintain MAP>65 -Amiodarone gtt for Afib -Trend Troponins/CK-MB -Hold home ASA, clopidogrel, and metoprolol 50mg TID -May start low dose metoprolol 3.125mg PO BID if BP tolerates #Pulm -O2 to maintain SpaO2 >90% #Renal -IVF for NICHOLAS -arndt, strict I&Os #GI A: elevated LFTs likely 2/2 to ischemia -Continue IVF #FEN -IVF 1/2NS @ 80cc/hr -lytes wnl -Dysphagia diet; NPO after midnight except for PO meds #PPX -DVT - 5000U Heparin sq BID, hold AM dose -GI - not indicated #Dispo: continue ICU monitoring d/w Dr. Luciano Delong MD PGY-1 Visit type - Emergency Visit Emergency Visit: No - New Patient This patient is new to me today: Yes Date on this admission: 04/08/17 - Critical Care Critical Care patient: Yes Total Critical Care Time (in minutes): 35 Critical Care Statement: The care of this patient involved high complexity decision making to prevent further life threatening deterioration of the patient 's condition and/or to evaluate & treat vital organ system(s) failure or risk of failure.
--- NOTE | 2017-04-08 09:15 | HP ---
Admitting History and Physical - Primary Care Physician PCP: Remigio Del Toro - Admission Chief Complaint: rt foot gangrene History of Present Illness: 77 yrs old male sent from [facility] for Right foot gangrene and elevated WBC . Pt is confused , bedbound at baseline, on chronic arndt catheter. In his last admission here , he underwent failed attempt for right foot angiogram, was dc back to [place] with wound care daily , but there is worsening foot discoloration, along with foul smell and altered mentation. 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: Alzheimer's, Dementia Cardiovascular: Yes: AFIB, CHF, HTN, Hyperlipdemia Heme/Onc: Yes: Anemia Psych: Yes: Bipolar, Other Endocrine: Yes: Diabetes Mellitus - Past Surgical History Past Surgical History: Yes: None - Smoking History Smoking history: Unknown if ever smoked Have you smoked in the past 12 months: No - Alcohol/Substance Use Hx Alcohol Use: No - Social History ADL: Family Assistance History of Recent Travel: No Home Medications - Allergies Allergies/Adverse Reactions: Allergies Allergy/AdvReac Type Severity Reaction Status Date / Time No Known Allergies Allergy Verified 02/24/17 10:36 - Home Medications Home Medications: Ambulatory Orders Cyanocobalamin (Vitamin B-12) [Vitamin B-12] 1,000 mcg PO DAILY 10/04/16 Metformin HCl [Metformin HCl ER] 1,000 mg PO BID 11/26/16 Spironolactone [Aldactone -] 25 mg PO DAILY #0 tablet 01/17/17 Multivitamins [Multivit ([facility] Formulary)] 1 tab PO DAILY 01/29/17 Vit A/Vitamin D3/E/Aloe V/Znox [Periguard Ointment] 0 gm TP TID 01/29/17 Clopidogrel Bisulfate [Plavix -] 75 mg PO DAILY tablet 02/04/17 Acetaminophen [Pain Relief] 650 mg PO DAILY 02/24/17 Mirtazapine [Remeron -] 15 mg PO HS 02/24/17 Aspirin [ASA -] 81 mg PO DAILY tab.chew 03/21/17 Donepezil HCl [Aricept -] 10 mg PO DAILY tablet 03/21/17 Insulin Sliding Scale [Novolog Vial Sliding Scale -] 1 vial SQ ACHS units 03/21 Metoprolol Tartrate [Lopressor -] 50 mg PO TID tablet 03/21/17 Tamsulosin HCl [Flomax -] 0.4 mg PO DAILY@1630 #30 tab 03/21/17 Amino Acids/Protein Hydrolys [Pro-Stat Sugar Free Liquid Pkt] 30 ml PO BID 04/07 Clonazepam [Klonopin -] 0.5 mg PO Q12H MDD 2 04/07/17 Family Disease History - Family Disease History Family History: Unable to Obtain Review of Systems Unable to obtain ROS, reason: dementia Physical Examination Vital Signs: Vital Signs Temperature 97.8 F 04/08/17 06:00 Pulse Rate 115 H 04/08/17 06:00 Respiratory Rate 22 04/08/17 06:00 Blood Pressure 94/71 04/08/17 06:00 O2 Sat by Pulse Oximetry (%) 97 04/07/17 21:02 Constitutional: Yes: No Distress Cardiovascular: Yes: Pulse Irregular Respiratory: Yes: Diminished Gastrointestinal: Yes: Normal Bowel Sounds, Soft. No: Distention, Tenderness Extremities: Yes: Other (right toes gangrene extedning to forefoot) Edema: No Neurological: Yes: Alert. No: Oriented Labs: Laboratory Last Values WBC 23.6 K/mm3 (4.0-10.0) H 04/08/17 05:00 RBC 3.35 M/mm3 (4.00-5.60) L 04/08/17 05:00 Hgb 8.4 GM/dL (11.7-16.9) L D 04/08/17 05:00 Hct 28.1 % (35.4-49) L 04/08/17 05:00 MCV 84.1 fl (80-96) 04/08/17 05:00 MCH 25.1 pg (25.7-33.7) L 04/08/17 05:00 MCHC 29.9 g/dl (32.0-35.9) L 04/08/17 05:00 RDW 20.7 % (11.9-15.9) H 04/08/17 05:00 Plt Count 473 K/MM3 (134-434) H 04/08/17 05:00 MPV 8.4 fl (7.5-11.1) 04/08/17 05:00 Total Counted 100 04/07/17 14:27 Neutrophils % No Result Required. 04/07/17 14:27 Neutrophils % (Manual) 78 % (42.8-82.8) 04/07/17 14:27 Band Neuts % (Manual) 9 % (0-10) 04/07/17 14:27 Lymphocytes % No Result Required. 04/07/17 14:27 Lymphocytes % (Manual) 9 % (8-40) 04/07/17 14: Monocytes % (Manual) 4 % (3.8-10.2) 04/07/17 14:27 Platelet Estimate Increased (NORMAL) 04/07/17 14: Anisocytosis 1+ 04/07/17 14: PT with INR 20.10 SEC (9.98-11.88) H 04/07/17 14: INR 1.81 (0.82-1.09) H D 04/07/17 14:27 PTT (Actin FS) 31.3 SECONDS (26.9-34.4) 04/07/17 14:27 VBG pH 7.39 (7.32-7.42) 04/07/17 16:05 POC VBG pCO2 37.0 mmHg (38-52) L 04/07/17 16:05 POC VBG pO2 33.9 mmHg (28-48) D 04/07/17 16:05 Mixed VBG HCO3 22.1 meq/L (19-25) 04/07/17 16:05 Sodium 145 mmol/L (136-145) 04/07/17 15:05 Potassium 4.9 mmol/L (3.5-5.1) 04/07/17 15:05 Chloride 109 mmol/L (98-107) H 04/07/17 15:05 Carbon Dioxide 24 mmol/L (21-32) 04/07/17 15:05 Anion Gap 12 (8-16) 04/07/17 15:05 BUN 39 mg/dL (7-18) H D 04/07/17 15:05 Creatinine 1.3 mg/dL (0.7-1.3) D 04/07/17 15:05 Creat Clearance w eGFR 53.53 (>60) 04/07/17 15:05 POC Glucometer 215.31780 UNITS (()) 04/08/17 05:40 Random Glucose 225 mg/dL (74-106) H D 04/07/17 15:05 Lactic Acid 8.6 mmol/L (0.4-2.0) H* 04/07/17 23:20 Calcium 8.7 mg/dL (8.5-10.1) 04/07/17 15:05 Total Bilirubin 0.8 mg/dL (0.2-1.0) D 04/07/17 15:05 AST 866 U/L (15-37) H D 04/07/17 15:05 ALT 619 U/L (12-78) H D 04/07/17 15:05 Alkaline Phosphatase 319 U/L (45-117) H D 04/07/17 15:05 Creatine Kinase 103 IU/L (39-308) 04/08/17 11:05 Troponin I 2.40 ng/ml (0.00-0.05) H* 04/08/17 11:05 Total Protein 6.9 g/dl (6.4-8.2) 04/07/17 15:05 Albumin 1.8 g/dl (3.4-5.0) L 04/07/17 15:05 TSH 2.40 uIU/ml (0.358-3.74) D 04/07/17 17:00 Urine Color Mariangel 04/07/17 19:30 Urine Appearance Turbid 04/07/17 19:30 Urine pH 5.0 (5.0-8.0) 04/07/17 19:30 Ur Specific Leslie 1.025 (1.005-1.025) 04/07/17 19:30 Urine Protein 2+ (NEGATIVE) H 04/07/17 19:30 Urine Glucose (UA) Negative (NEGATIVE) 04/07/17 19:30 Urine Ketones Trace (NEGATIVE) H 04/07/17 19:30 Urine Blood 3+ (NEGATIVE) H 04/07/17 19:30 Urine Nitrite Negative (NEGATIVE) 04/07/17 19: Urine Bilirubin Negative (NEGATIVE) 04/07/17 19:30 Urine Urobilinogen 4.0 e.u/dl mg/dL (0.2-1.0) 04/07/17 19:30 Urine RBC 149 /hpf (0-3) 04/07/17 19:30 Urine WBC 1479 /hpf (3-5) 04/07/17 19:30 Urine Bacteria Moderate /hpf (NONE SEEN) 04/07/17 19:30 Urine Mucus Few 04/07/17 19:30 Digoxin 0.1534 ng/ml (0.8-2.0) L 04/07/17 15:42 Blood Type AB NEGATIVE 04/07/17 14:27 Antibody Screen Negative 04/07/17 14:27 Crossmatch See Detail 04/07/17 14:27 Imaging - Results Chest X-ray: Image Reviewed (no infilatrate) EKG: Image Reviewed (Afib- RVR) Problem List - Problems (1) Atrial fibrillation with RVR Code(s): I48.91 - UNSPECIFIED ATRIAL FIBRILLATION (2) Gangrene Code(s): I96 - GANGRENE, NOT ELSEWHERE CLASSIFIED (3) Sepsis Code(s): A41.9 - SEPSIS, UNSPECIFIED ORGANISM (4) NICHOLAS (acute kidney injury) Code(s): N17.9 - ACUTE KIDNEY FAILURE, UNSPECIFIED (5) CAD (coronary artery disease) Code(s): I25.10 - ATHSCL HEART DISEASE OF [place] CORONARY ARTERY W/O ANG PCTRS (6) NSTEMI (non-ST elevated myocardial infarction) Code(s): I21.4 - NON-ST ELEVATION (NSTEMI) MYOCARDIAL INFARCTION Assessment/Plan PLAN Sepsis -- cultures done -- iv antibiotics -- ID eval -- will need BKA -- lactic acid getting worse, iv fluids Afib with RVR -- on Amiodarone drip -- cardiology evaluation -- pt had recent Echo in December-- severe systolic dysfunction -- not on AC NSTEMI -- likely due to sepsis -- on ASA and Plavix -- trend troponins DVT prophylaxis -- on Heparin sc
--- NOTE | 2017-04-08 09:23 | SPA.PREOP ---
- PRE-OP NOTE Dx: Right foot gangrene Planned Procedure: Right below below knee amputation Surgeon: Devan Kothari Consent: To be obtained after surgeon explained all risks, benefits and alternatives. Last Vital Signs Temp Pulse Resp BP Pulse Ox 97.8 F 115 H 22 94/71 97 04/08/17 06:00 04/08/17 06:00 04/08/17 06:00 04/08/17 06:00 04/07/17 21:02 Lab Results WBC 22.1 K/mm3 (4.0-10.0) H D 04/07/17 14:27 RBC 3.71 M/mm3 (4.00-5.60) L D 04/07/17 14:27 Hgb 9.5 GM/dL (11.7-16.9) L D 04/07/17 14:27 Hct 30.3 % (35.4-49) L D 04/07/17 14:27 MCV 81.8 fl (80-96) 04/07/17 14:27 MCHC 31.2 g/dl (32.0-35.9) L 04/07/17 14:27 RDW 20.3 % (11.9-15.9) H 04/07/17 14:27 Plt Count 510 K/MM3 (134-434) H 04/07/17 14:27 Sodium 145 mmol/L (136-145) 04/07/17 15:05 Potassium 4.9 mmol/L (3.5-5.1) 04/07/17 15:05 Chloride 109 mmol/L (98-107) H 04/07/17 15:05 Carbon Dioxide 24 mmol/L (21-32) 04/07/17 15:05 Anion Gap 12 (8-16) 04/07/17 15:05 BUN 39 mg/dL (7-18) H D 04/07/17 15:05 Creatinine 1.3 mg/dL (0.7-1.3) D 04/07/17 15:05 Random Glucose 225 mg/dL (74-106) H D 04/07/17 15:05 Calcium 8.7 mg/dL (8.5-10.1) 04/07/17 15:05 Blood Type AB NEGATIVE 04/07/17 14:27 Antibody Screen Negative 04/07/17 14:27 INR 1.81 (0.82-1.09) H D 04/07/17 14:27 - ASSESSMENT/PLAN Problem List - Problems (1) Gangrene Assessment/Plan: 1. NPO after midnight except PO meds 2. GI/DVT PPX 3. Medical optimization / clearance 4. 2 PRBC on hold for OR Code(s): I96 - GANGRENE, NOT ELSEWHERE CLASSIFIED Visit type - Case Type Case Type: ED Admission - New patient This patient is new to me today: Yes Date on this admission: 04/08/17
[2017-04-08] MEDS ORDERED: CLOPIDOGREL BISULFATE 75 MG TABLET (FP) PO SCH (10:00)
[2017-04-08] MEDS ORDERED: ASPIRIN 81 MG CHEWABLE TABLETS PO SCH (10:00)
[2017-04-08] MEDS: morphine CARPU-JECT 2 MG/1 ML DISP.SYRIN IVPUSH PRN ×3 (10:08→22:35)
[2017-04-08 10:12] LABS: MCH 25.1 pg (25.7-33.7); MCHC 29.9 g/dl (32.0-35.9); MEAN CELL VOLUME 84.1 fl (80-96); MEAN PLT VOLUME 8.4 fl (7.5-11.1); PLATELET COUNT 473 K/MM3 (134-434); RDW 20.7 % (11.9-15.9); WHITE BLOOD COUNT 23.6 K/mm3 (4.0-10.0)
--- NOTE | 2017-04-08 12:14 | CON.CARD ---
Consult Consult Specialty:: cardiology Reason for Consultation:: PAD; elevated TNI; gangrene; sepsis - History of Present Illness Chief Complaint: Pt is lethargic; responds to repeated verbal queries by opening eyes briefly; does not follow verbal requests History of Present Illness: 77 y/o M (b. [place]), with a PMHx of Alzheimer's, severe systolic CHF, s/p NSTEMI 2017, HLD, NIDDM, and HTN, chronic foot ulcers and gangrene, presents to the ED via EMS from [facility] with change in mental status and foul smelling foot ulcers. Per [place] records, patient has an elevated WBC. 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 Cardio/Vascular: Yes: AFIB, CHF, HTN, Hyperlipdemia Psych: Yes: Bipolar, Other Endocrine: Yes: Diabetes Mellitus Additional Medical History: diabetic and PAD associated foot ulcers bilaterally - Past Surgical History Past Surgical History: Yes: None - Alcohol/Substance Use Hx Alcohol Use: No - Smoking History Smoking history: Unknown if ever smoked Have you smoked in the past 12 months: No - Social History Usual Living Arrangement: With Child ADL: Family Assistance History of Recent Travel: No Home Medications - Allergies Allergies/Adverse Reactions: Allergies Allergy/AdvReac Type Severity Reaction Status Date / Time No Known Allergies Allergy Verified 02/24/17 10:36 - Home Medications Home Medications: Ambulatory Orders Cyanocobalamin (Vitamin B-12) [Vitamin B-12] 1,000 mcg PO DAILY 10/04/16 Metformin HCl [Metformin HCl ER] 1,000 mg PO BID 11/26/16 Spironolactone [Aldactone -] 25 mg PO DAILY #0 tablet 01/17/17 Multivitamins [Multivit ([facility] Formulary)] 1 tab PO DAILY 01/29/17 Vit A/Vitamin D3/E/Aloe V/Znox [Periguard Ointment] 0 gm TP TID 01/29/17 Clopidogrel Bisulfate [Plavix -] 75 mg PO DAILY tablet 02/04/17 Acetaminophen [Pain Relief] 650 mg PO DAILY 02/24/17 Mirtazapine [Remeron -] 15 mg PO HS 02/24/17 Aspirin [ASA -] 81 mg PO DAILY tab.chew 03/21/17 Donepezil HCl [Aricept -] 10 mg PO DAILY tablet 03/21/17 Insulin Sliding Scale [Novolog Vial Sliding Scale -] 1 vial SQ ACHS units 03/21 Metoprolol Tartrate [Lopressor -] 50 mg PO TID tablet 03/21/17 Tamsulosin HCl [Flomax -] 0.4 mg PO DAILY@1630 #30 tab 03/21/17 Amino Acids/Protein Hydrolys [Pro-Stat Sugar Free Liquid Pkt] 30 ml PO BID 04/07 Clonazepam [Klonopin -] 0.5 mg PO Q12H MDD 2 04/07/17 Review of Systems Unable to obtain ROS, reason: dementia - Risk Factors Known Risk Factors: Yes: Age, Gender, Physical Inactivity, Other (dementia; systolic CHF; s/p NSTEMI) Vital Signs: Vital Signs Temperature 97.8 F 04/08/17 06:00 Pulse Rate 111 H 04/08/17 10:00 Respiratory Rate 22 04/08/17 10:00 Blood Pressure 103/78 04/08/17 10:00 O2 Sat by Pulse Oximetry (%) 97 04/07/17 21:02 Constitutional: Yes: Thin, Other (dementia; does not follow verbal queries; lethargic) Eyes: Yes: WNL HENT: Yes: WNL Neck: Yes: WNL Respiratory: Yes: Diminished Gastrointestinal: Yes: Soft Renal/: No: Anuria Cardiovascular: Yes: Pulse Irregular JVD: Yes Carotid Bruit: No PMI: Displaced Heart Sounds: Yes: S1 (varies in intensity), Split S2 Murmur: Yes: Systolic Murmur, Grade 2 Musculoskeletal: Yes: Muscle Weakness Extremities: Yes: Cold, Other (gangrenous foot) Peripheral Pulses WNL: No Peripheral Pulses: 1+ Left Doralis Pedis, 1+ Right Dorsalis Pedis Integumentary: Yes: Pressure Ulcer, Other (blackened toes) Psychiatric: Yes: Other (dementia) - Other Data Labs, Other Data: CBC, BMP 04/08/17 05:00 INR, PTT INR 1.81 (0.82-1.09) H D 04/07/17 14:27 Troponin, BNP 04/07/17 04/08/17 23:20 05:40 Troponin I 2.73 H* 2.55 H* Troponin, BNP 04/07/17 04/08/17 23:20 05:40 Troponin I 2.73 H* 2.55 H* Abnormal Lab Results 04/07/17 04/07/17 04/07/17 14:27 14:27 15:05 WBC RBC Hgb Hct MCH MCHC RDW Plt Count PT with INR 20.10 H INR 1.81 H D POC VBG pCO2 Lactic Acid 3.7 H* Troponin I Urine Protein Urine Ketones Urine Blood Crossmatch See Detail 04/07/17 04/07/17 04/07/17 16:05 19:30 23:20 WBC RBC Hgb Hct MCH MCHC RDW Plt Count PT with INR INR POC VBG pCO2 37.0 L Lactic Acid Troponin I 2.73 H* Urine Protein 2+ H Urine Ketones Trace H Urine Blood 3+ H Crossmatch 04/07/17 04/08/17 04/08/17 23:20 05:00 05:40 WBC 23.6 H RBC 3.35 L Hgb 8.4 L D Hct 28.1 L MCH 25.1 L MCHC 29.9 L RDW 20.7 H Plt Count 473 H PT with INR INR POC VBG pCO2 Lactic Acid 8.6 H* Troponin I 2.55 H* Urine Protein Urine Ketones Urine Blood Crossmatch 04/08/17 04/08/17 04/08/17 11:05 16:00 18:00 WBC RBC Hgb Hct MCH MCHC RDW Plt Count PT with INR INR POC VBG pCO2 Lactic Acid 7.9 H* Troponin I 2.40 H* 2.43 H* Urine Protein Urine Ketones Urine Blood Crossmatch Ejection Fraction %: LVEF < 40 % Imaging - Results Chest X-ray: Image Reviewed (cardiomegaly; no acute pathology) EKG: Image Reviewed (AF with RVR) Problem List - Problems (1) Atrial fibrillation with RVR Assessment/Plan: Pt was started on IV amiodarone; this may be changed to PO if needed, but caution, given markedly elevated LFTS. Restart beta tamika: can use carvedilol (use minimum dose of 3.125 mg bid, given borderline low BP); if blood pressure and HR are controlled, may withhold amiodarone. Code(s): I48.91 - UNSPECIFIED ATRIAL FIBRILLATION (2) Gangrene Assessment/Plan: Will require amputation. Code(s): I96 - GANGRENE, NOT ELSEWHERE CLASSIFIED (3) Sepsis Assessment/Plan: antibiotics per ID. IV Fluids; watch weight, Is and Os, respiratory status carefully for volume delivered (severe sytolic LV dysfunction). Code(s): A41.9 - SEPSIS, UNSPECIFIED ORGANISM (4) Acute on chronic systolic (congestive) heart failure Assessment/Plan: Pt is on beta blockers; overall benefit still likely, despite controversy when used with systolic CHF + AF; keep resting HR >90<110 bpm. Problematic using ACEI or spironolactone with present low BP. Code(s): I50.23 - ACUTE ON CHRONIC SYSTOLIC (CONGESTIVE) HEART FAILURE (5) Aortic stenosis Code(s): I35.0 - NONRHEUMATIC AORTIC (VALVE) STENOSIS (6) Dementia Code(s): F03.90 - UNSPECIFIED DEMENTIA WITHOUT BEHAVIORAL DISTURBANCE Qualifiers: Dementia type: Alzheimer's disease Dementia behavioral disturbance: without behavioral disturbance (7) Hyperlipidemia Code(s): E78.5 - HYPERLIPIDEMIA, UNSPECIFIED (8) HTN (hypertension) Code(s): I10 - ESSENTIAL (PRIMARY) HYPERTENSION (9) Normocytic anemia Code(s): D64.9 - ANEMIA, UNSPECIFIED (10) Elevated troponin Code(s): R74.8 - ABNORMAL LEVELS OF OTHER SERUM ENZYMES (11) Elevated LFTs Code(s): R79.89 - OTHER SPECIFIED ABNORMAL FINDINGS OF BLOOD CHEMISTRY Assessment/Plan cc time spent: 50 minutes.
--- NOTE | 2017-04-08 12:43 | PN ---
Teaching Attending Note Name of Resident: Kylie Delong ATTENDING PHYSICIAN STATEMENT I saw and evaluated the patient. I reviewed the resident's note and discussed the case with the resident. I agree with the resident's findings and plan as documented. SUBJECTIVE: Pt seen and examined in the ICU. Awake but not answering questions. No fevers recorded but remains in rapid afib and borderlie hypotensive. OBJECTIVE: Last Vital Signs Temp Pulse Resp BP Pulse Ox 97.8 F 111 H 22 103/78 97 04/08/17 06:00 04/08/17 10:00 04/08/17 10:00 04/08/17 10:00 04/07/17 21:02 Intake & Output 04/05/17 04/06/17 04/07/17 04/08/17 23:59 23:59 23:59 23:59 Intake Total 1166 Output Total 120 200 Balance 1046 -200 Weight 120 lb 134 lb 4.184 oz Gen: alert Heart: tachycardic, irregular Lung: decreased breath sounds at the bases Abd: soft, nontender Ext: necrotic feet CBC, BMP 04/08/17 05:00 04/07/17 15:05 Active Medications Acetaminophen (Tylenol -) 650 mg PO Q6H PRN PRN Reason: FEVER Last Admin: 04/08/17 03:43 Dose: 650 mg Aspirin (Asa -) 81 mg PO DAILY LUCY Chlorhexidine Gluconate (Hibiclens For Decolonization -) 1 applic TP HS LUCY Clonazepam (Klonopin -) 0.5 mg PO Q12H PRN PRN Reason: ANXIETY Last Admin: 04/08/17 03:43 Dose: 0.5 mg Clopidogrel Bisulfate (Plavix -) 75 mg PO DAILY LUCY Donepezil HCl (Aricept -) 10 mg PO DAILY LUCY Heparin Sodium (Porcine) (Heparin -) 5,000 unit SQ BID LUCY Amiodarone HCl 450 mg/ (Dextrose) 250 mls @ 33.33 mls/hr IVPB TITR LUCY; 1 MG/ MIN PRN Reason: Protocol Last Titration: 04/08/17 04:47 Dose: 0.5 mg/min Sodium Chloride (1/2 Normal Saline) 1,000 mls @ 80 mls/hr IV ASDIR LUCY Insulin Aspart (Novolog Vial Sliding Scale -) 1 vial SQ TIDAC LUCY PRN Reason: Protocol Last Admin: 04/08/17 06:18 Dose: 4 units Metoprolol Tartrate (Lopressor -) 50 mg PO TID [facility] Last Admin: 04/08/17 05:56 Dose: Not Given Morphine Sulfate (Morphine Injection -) 1 mg IVPUSH Q4H PRN PRN Reason: PAIN Last Admin: 04/08/17 10:08 Dose: 1 mg Mupirocin (Bactroban Ointment (For Decolonization) -) 1 applic NS BID [facility] Stop: 04/13/17 09:59 Piperacillin Sod/Tazobactam Sod (Zosyn 3.375gm Ivpb (Pre-Docked)) 3.375 gm IVPB BID [facility] PRN Reason: Protocol Tamsulosin HCl (Flomax -) 0.4 mg PO DAILY@1630 [facility] ASSESSMENT AND PLAN: Gangrenous Feet UTI Severe Sepsis Lactic Acidosis Acute Kidney Injury +Troponins likely Demand Ischemia Elevated LFTs likely ischemic injury Atrial Fibrillation with RVR LV Systolic Dysfunction DM PAD HTN Hyperlipidemia Dementia - IV antibioticcs - f/u cultures - ID evaluation - IVF - monitor urine output, creatinine - trend lactate, LFTs, cardiac enzymes - wound care - will need amputation - amiodarone gtt per cardiology - NPO after midnight, hold AM heparin - continue ICU monitoring critical care time spent in reviewing chart, evaluating patient and formulating plan 35 min
[2017-04-08] MEDS: MUPIROCIN 2% TOPICAL OINTMENT FOR DECOLONIZATION NS SCH ×2 (12:49→21:37)
[2017-04-08 12:59] LABS: TROPONIN I 2.4 ng/ml (0.00-0.05)
--- NOTE | 2017-04-08 14:16 | EKG ---
Test Reason : Blood Pressure : / mmHG Vent. Rate : 151 BPM Atrial Rate : 138 BPM P-R Int : 000 ms QRS Dur : 098 ms QT Int : 266 ms P-R-T Axes : 000 062 224 degrees QTc Int : 421 ms ATRIAL FIBRILLATION WITH RAPID VENTRICULAR RESPONSE LOW VOLTAGE QRS IN LIMB LEADS NON-SPECIFIC INTRA-VENTRICULAR CONDUCTION BLOCK SEPTAL INFARCT (CITED ON OR BEFORE 01-JAN-2017) ABNORMAL ECG WHEN COMPARED WITH ECG OF 24-FEB-2017 10:46, NO SIGNIFICANT CHANGE WAS FOUND FOLLOW TRACING INDICATED Confirmed by ERNIE POSEY MD ([id number]) on 04/08/2017 2:16:05 PM Referred By: Confirmed By:ERNIE POSEY MD
--- NOTE | 2017-04-08 15:04 | PN ---
Progress Note (short form) - Note Progress Note: ID Consult dictated Sepsis Gangrene, feet bilaterally UTI Elevated LFTs , possible shock liver Await c/s For BKA Empiric zosyn + stat vancomycin
[2017-04-08] MEDS ORDERED: VANCOMYCIN 1,000 MG in DEXTROSE 5%-WATER - 250 ML IVPB ONE ×2 (17:15→22:00)
[2017-04-08 17:17] LABS: TROPONIN I 2.43 ng/ml (0.00-0.05)
[2017-04-08] MEDS: PIPERACILLIN/TAZOB 3.375 GM 50 ML IVPB SCH (17:20)
[2017-04-08] MEDS: SODIUM CHLORIDE 0.45% 1,000 ML IV SCH (18:44)
[2017-04-08] MEDS: DONEPEZIL HCL 10 MG TABLET (FP) PO SCH (18:45)
[2017-04-08] MEDS: HEPARIN NA (PORCINE) 5,000 UNITS/ML 1ML VIAL SQ SCH ×2 (18:46→21:36)
[2017-04-08] MEDS: TAMSULOSIN HCL 0.4 MG CAP.ER.24H (FP) PO SCH (18:47)
[2017-04-08 21:33] LABS: INR 2.54 (0.82-1.09); PROTHROMBIN TIME (PATIENT) 28.5 SEC (9.98-11.88)
[2017-04-08] MEDS: CHLORHEXIDINE GLUCONATE 4% CLEANSER FOR DECOLONIZATION TP SCH (21:37)
[2017-04-08] MEDS ORDERED: VANCOMYCIN 1,000 MG in DEXTROSE 5%-WATER - 250 ML IVPB SCH (22:00)
[2017-04-08] MEDS: AMIODARONE HCL INJECTION 450 MG in DEXTROSE 5%-WATER - 241 ML IVPB SCH (22:15)
--- NOTE | 2017-04-09 01:26 | CONS ---
DATE OF CONSULTATION: 04/08/2017 HISTORY: The patient is a 77-year-old male who was evaluated for sepsis. History is obtained from the chart as he cannot give a history secondary to his mental status. He is a senior living patient. He was transferred to the hospital with worsening altered mental status and foot odor. In the emergency room, the patient was hypotensive, tachycardic with a markedly elevated white blood cell count and lactic acidosis. He was noted to have dry gangrene of his feet bilaterally. He was admitted to the Intensive Care Unit where he was given IV fluids. Cultures were obtained. He was empirically treated with vancomycin and Zosyn. He is scheduled to have a BKA tomorrow. He is unable to offer any additional history. He offers no complaints. PAST MEDICAL HISTORY: Positive for dementia, hyperlipidemia, diabetes mellitus, hypertension, history of bilateral foot ulcers, coronary artery disease, atrial fibrillation, congestive heart failure, history of ESBL, sepsis secondary to UTI in January. ALLERGIES: No known allergies. MEDICATIONS: Flomax, amiodarone, Zosyn, vancomycin, heparin, Klonopin, Lopressor, aspirin, Aricept, Plavix. SOCIAL HISTORY: [facility] in a [facility] facility. Is dependent in activities of daily living. LABORATORY DATA: White count is 23.6, hematocrit 28.1, platelet count 473, BUN 39, creatinine 1.3. Total bilirubin 0.8, alkaline phosphatase 319, AST 866, ALT 619. Urinalysis: 1479 white cells. Blood and urine cultures are pending. Chest x-ray is negative for acute infiltrate. PHYSICAL EXAMINATION: General: He is lethargic. He is arousable to tactile stimulus. Vital signs: Temperature 97.8, blood pressure 103/78, pulse 111 and regular, respirations 22. HEENT: Sclerae anicteric. Heart: Sounds S1, S2. Lungs: Poor inspiratory effort. Abdomen: Soft and nontender. Extremities: Positive for dry gangrene of the feet bilaterally. IMPRESSION: 1. Sepsis. Multiple potential sources. 2. Gangrene of the feet bilaterally. 3. Urinary tract infection. 4. Elevated liver enzymes, possible shock liver. PLAN: Await sepsis workup. Empiric antibiotic coverage with Zosyn and vancomycin. He requires bilateral [id number] amputations. Continue supportive measures. I will follow. Thank you for the kind referral. RAYMOND VERAS M.D. [id number]
[2017-04-09] MEDS: PIPERACILLIN/TAZOB 3.375 GM 50 ML IVPB SCH ×3 (02:40→17:19)
[2017-04-09] MEDS: morphine CARPU-JECT 2 MG/1 ML DISP.SYRIN IVPUSH PRN ×3 (05:45→17:41)
[2017-04-09] MEDS: INSULIN SLIDING SCALE (NOVOLOG) 1 VIAL SQ SCH ×5 (06:08→17:34)
[2017-04-09 06:22] LABS: BASOPHIL 0.1 % (0-2.0); EOSINOPHIL 0.1 % (0-4.5); MCH 25.4 pg (25.7-33.7); MCHC 31.4 g/dl (32.0-35.9); MEAN PLT VOLUME 8.5 fl (7.5-11.1); NEUTROPHILS 87.3 % (42.8-82.8); PLATELET COUNT 384 K/MM3 (134-434); RDW 19.9 % (11.9-15.9); WHITE BLOOD COUNT 21.9 K/mm3 (4.0-10.0)
[2017-04-09 06:53] LABS: ALBUMIN 1.6 g/dl (3.4-5.0); ANION GAP 14 (8-16); CALCIUM 8.2 mg/dL (8.5-10.1); CO2 20 mmol/L (21-32); GLUCOSE,RANDOM 113 mg/dL (74-106); MAGNESIUM 1.9 mg/dL (1.8-2.4)
[2017-04-09 07:03] LABS: ALK PHOS 289 U/L (45-117); BILIRUBIN,TOTAL 1.2 mg/dL (0.2-1.0); CREATININE 1.4 mg/dL (0.7-1.3); PHOSPHOROUS 3.5 mg/dL (2.5-4.9)
[2017-04-09 07:08] LABS: SGOT/AST 1293 U/L (15-37); SGPT/ALT 766 U/L (12-78)
--- NOTE | 2017-04-09 09:07 | PN ---
Physical Exam: 24H Events: yesterday: INR 1.8 to 2.5 likely 2/2 shock liver/consumptive coagulopathy. SUBJECTIVE: Patient seen and examined in ICU. Lethargic, but arousable, confused. OBJECTIVE: Vital Signs Period Temp Pulse Resp BP Sys/Mcdaniel Pulse Ox Last 24 Hr 97.2 F-98.0 F 101-128 17-22 82-108/57-81 97 Intake & Output 04/06/17 04/07/17 04/08/17 04/09/17 23:59 23:59 23:59 23:59 Intake Total 4169 683 776.2 Output Total 120 600 200 Balance 4049 83 576.2 Weight 54.431 kg 60.9 kg 60.4 kg GENERAL: The patient is AOx1, awake, alert, incoherent speech (AD at baseline) EYES: sclera anicteric, conjunctiva clear ENT: moist mucous membranes. LUNGS: decreased breath sounds at bases HEART: tachycardic, irregular rhythm, no murmur ABDOMEN: soft, ntnd UPPER EXTREMITIES: wwp, no edema LOWER EXTREMITIES: bilateral necrotic, gangrenous feet R>L : yris CBC, BMP 04/09/17 05:10 04/09/17 05:10 Lactate: 3.7 -> 8.6 -> 7.9 04/07/17 04/08/17 04/09/17 14:27 20:00 09:37 INR 1.81 H D 2.54 H D 2.55 H Hepatic Panel Total Bilirubin 1.2 mg/dL (0.2-1.0) H D 04/09/17 05:10 AST 1293 U/L (15-37) H 04/09/17 05:10 ALT 766 U/L (12-78) H D 04/09/17 05:10 Alkaline Phosphatase 289 U/L (45-117) H 04/09/17 05:10 Albumin 1.6 g/dl (3.4-5.0) L 04/09/17 05:10 Troponin, BNP 04/08/17 04/08/17 11:05 16:00 Troponin I 2.40 H* 2.43 H* Urine Test Results Urine Color [place] 04/07/17 19:30 Urine Appearance Turbid 04/07/17 19:30 Urine pH 5.0 (5.0-8.0) 04/07/17 19:30 Ur Specific [place] 1.025 (1.005-1.025) 04/07/17 19:30 Urine Protein 2+ (NEGATIVE) H 04/07/17 19:30 Urine Glucose (UA) Negative (NEGATIVE) 04/07/17 19:30 Urine Ketones Trace (NEGATIVE) H 04/07/17 19:30 Urine Blood 3+ (NEGATIVE) H 04/07/17 19:30 Urine Nitrite Negative (NEGATIVE) 04/07/17 19:30 Urine Bilirubin Negative (NEGATIVE) 04/07/17 19:30 Urine RBC 149 /hpf (0-3) 04/07/17 19:30 Urine WBC 1479 /hpf (3-5) 04/07/17 19:30 Urine Bacteria Moderate /hpf (NONE SEEN) 04/07/17 19:30 Urine Mucus Few 04/07/17 19:30 Microbiology 04/07/17 15:14 Blood - Peripheral Venous Blood Culture - Preliminary NO GROWTH OBTAINED AFTER 24 HOURS, INCUBATION TO CONTINUE FOR 4 DAYS. 04/07/17 15:14 Blood - Peripheral Venous Blood Culture - Preliminary NO GROWTH OBTAINED AFTER 24 HOURS, INCUBATION TO CONTINUE FOR 4 DAYS. Active Medications Acetaminophen (Tylenol -) 650 mg PO Q6H PRN PRN Reason: FEVER Last Admin: 04/08/17 03:43 Dose: 650 mg Aspirin (Asa -) 81 mg PO DAILY [facility] Chlorhexidine Gluconate (Hibiclens For Decolonization -) 1 applic TP HS [facility] Last Admin: 04/08/17 21:37 Dose: 1 applic Clonazepam (Klonopin -) 0.5 mg PO Q12H PRN PRN Reason: ANXIETY Last Admin: 04/08/17 22:34 Dose: 0.5 mg Clopidogrel Bisulfate (Plavix -) 75 mg PO DAILY [facility] Donepezil HCl (Aricept -) 10 mg PO DAILY [facility] Last Admin: 04/08/17 18:45 Dose: Not Given Heparin Sodium (Porcine) (Heparin -) 5,000 unit SQ BID [facility] Last Admin: 04/08/17 21:36 Dose: 5,000 unit Amiodarone HCl 450 mg/ (Dextrose) 250 mls @ 33.33 mls/hr IVPB TITR [facility]; 1 MG/ MIN PRN Reason: Protocol Last Admin: 04/08/17 22:15 Dose: 16.66 mls/hr Sodium Chloride (1/2 Normal Saline) 1,000 mls @ 80 mls/hr IV ASDIR [facility] Last Admin: 04/08/17 18:44 Dose: 80 mls/hr Piperacillin Sod/Tazobactam Sod (Zosyn 3.375gm Ivpb (Pre-Docked)) 50 mls @ 100 mls/hr IVPB Q8H-IV [facility] PRN Reason: Protocol Last Admin: 04/09/17 02:40 Dose: 100 mls/hr Vancomycin HCl 1,000 mg/ (Dextrose) 250 mls @ 250 mls/hr IVPB BID [facility] PRN Reason: Protocol Insulin Aspart (Novolog Vial Sliding Scale -) 1 vial SQ TIDAC [facility] PRN Reason: Protocol Last Admin: 04/09/17 06:08 Dose: Not Given Metoprolol Tartrate (Lopressor -) 50 mg PO TID [facility] Last Admin: 04/08/17 18:46 Dose: Not Given Morphine Sulfate (Morphine Injection -) 1 mg IVPUSH Q4H PRN PRN Reason: PAIN Last Admin: 04/09/17 05:45 Dose: 1 mg Mupirocin (Bactroban Ointment (For Decolonization) -) 1 applic NS BID [facility] Stop: 04/13/17 09:59 Last Admin: 04/08/17 21:37 Dose: 1 applic Tamsulosin HCl (Flomax -) 0.4 mg PO DAILY@1630 [facility] Last Admin: 04/08/17 18:47 Dose: Not Given ASSESSMENT/PLAN: 77yo M with AD, NIDDM, HTN, HLD, Afib with RVR, recent admission for bacteremia and ESBL+ UTI (d/c 03/21), PAD with chronic foot ulcers s/p RLE angioplasty now with severe sepsis, UTI, and gangrenous feet who will have RLE BKA tomorrow. #ID A: UTI, gangrenous feet -ID consulted -Abx per ID (zosyn and vanc) -isolation precautions (prior ESBL bacteremia/UTI) -Trend lactate -f/u blood cultures (NGTD x 24h) #Heme -Transfuse 1U PRBCs (Hgb <9) -Vit K PO -INR/Ptt in AM prior to surgery -Transfuse 2U FFP tomorrow if INR >1.5 #CV -Cardiology consulted -Fluid boluses to maintain MAP>65 -d/c amiodarone gtt for Afib -Start carvedilol 3.125mg PO BID -Hold home ASA, clopidogrel, and metoprolol 50mg TID #Pulm -O2 to maintain SpaO2 >90% #Renal A: NICHOLAS (baseline Cr <1.0) -Trend Cr -arndt, strict I&Os #GI A: elevated LFTs likely 2/2 to ischemia/shock liver -Monitor LFTs #FEN -IVF - hold for now, bolus as needed for BP -lytes wnl -Dysphagia diet; NPO after midnight except for PO meds #PPX -DVT - 5000U Heparin sq BID, hold AM dose -GI - not indicated #Dispo: continue ICU monitoring d/w Dr. Luciano Delong MD PGY-1 Visit type - Emergency Visit Emergency Visit: No - New Patient This patient is new to me today: No - Critical Care Critical Care patient: Yes Total Critical Care Time (in minutes): 35 Critical Care Statement: The care of this patient involved high complexity decision making to prevent further life threatening deterioration of the patient 's condition and/or to evaluate & treat vital organ system(s) failure or risk of failure.
[2017-04-09] MEDS: DONEPEZIL HCL 10 MG TABLET (FP) PO SCH (09:39)
[2017-04-09] MEDS: MUPIROCIN 2% TOPICAL OINTMENT FOR DECOLONIZATION NS SCH ×2 (09:39→22:28)
[2017-04-09] MEDS: SODIUM CHLORIDE 0.45% 1,000 ML IV SCH (09:51)
[2017-04-09 10:00] LABS: INR 2.55 (0.82-1.09); PROTHROMBIN TIME (PATIENT) 28.6 SEC (9.98-11.88)
--- NOTE | 2017-04-09 10:38 | PN ---
Progress Note, Physician Chief Complaint: lethargic - Current Medication List Current Medications: Active Medications Acetaminophen (Tylenol -) 650 mg PO Q6H PRN PRN Reason: FEVER Last Admin: 04/08/17 03:43 Dose: 650 mg Aspirin (Asa -) 81 mg PO DAILY [facility] Chlorhexidine Gluconate (Hibiclens For Decolonization -) 1 applic TP HS [facility] Last Admin: 04/08/17 21:37 Dose: 1 applic Clonazepam (Klonopin -) 0.5 mg PO Q12H PRN PRN Reason: ANXIETY Last Admin: 04/08/17 22:34 Dose: 0.5 mg Clopidogrel Bisulfate (Plavix -) 75 mg PO DAILY [facility] Donepezil HCl (Aricept -) 10 mg PO DAILY [facility] Last Admin: 04/09/17 09:39 Dose: Not Given Heparin Sodium (Porcine) (Heparin -) 5,000 unit SQ BID [facility] Last Admin: 04/08/17 21:36 Dose: 5,000 unit Amiodarone HCl 450 mg/ (Dextrose) 250 mls @ 33.33 mls/hr IVPB TITR [facility]; 1 MG/ MIN PRN Reason: Protocol Last Admin: 04/08/17 22:15 Dose: 16.66 mls/hr Sodium Chloride (1/2 Normal Saline) 1,000 mls @ 80 mls/hr IV ASDIR [facility] Last Admin: 04/09/17 09:51 Dose: 80 mls/hr Piperacillin Sod/Tazobactam Sod (Zosyn 3.375gm Ivpb (Pre-Docked)) 50 mls @ 100 mls/hr IVPB Q8H-IV [facility] PRN Reason: Protocol Last Admin: 04/09/17 09:39 Dose: 100 mls/hr Vancomycin HCl 1,000 mg/ (Dextrose) 250 mls @ 250 mls/hr IVPB BID [facility] PRN Reason: Protocol Insulin Aspart (Novolog Vial Sliding Scale -) 1 vial SQ TIDAC [facility] PRN Reason: Protocol Last Admin: 04/09/17 06:08 Dose: Not Given Metoprolol Tartrate (Lopressor -) 50 mg PO TID [facility] Last Admin: 04/08/17 18:46 Dose: Not Given Morphine Sulfate (Morphine Injection -) 1 mg IVPUSH Q4H PRN PRN Reason: PAIN Last Admin: 04/09/17 05:45 Dose: 1 mg Mupirocin (Bactroban Ointment (For Decolonization) -) 1 applic NS BID [facility] Stop: 04/13/17 09:59 Last Admin: 04/09/17 09:39 Dose: 1 applic Tamsulosin HCl (Flomax -) 0.4 mg PO DAILY@1630 [facility] Last Admin: 04/08/17 18:47 Dose: Not Given - Objective Vital Signs: Vital Signs Temperature 97.6 F 04/09/17 10:00 Pulse Rate 120 H 04/09/17 10:00 Respiratory Rate 19 04/09/17 10:00 Blood Pressure 98/73 04/09/17 10:00 O2 Sat by Pulse Oximetry (%) 97 04/08/17 20:29 Constitutional: Yes: No Distress Cardiovascular: Yes: Pulse Irregular Respiratory: Yes: Diminished Gastrointestinal: Yes: Normal Bowel Sounds, Soft. No: Distention, Tenderness Extremities: Yes: Other (gangrene B/L) Edema: No Labs: CBC, BMP 04/09/17 05:10 04/09/17 05:10 INR, PTT INR 2.55 (0.82-1.09) H 04/09/17 09:37 Problem List - Problems (1) Atrial fibrillation with RVR Code(s): I48.91 - UNSPECIFIED ATRIAL FIBRILLATION (2) Gangrene Code(s): I96 - GANGRENE, NOT ELSEWHERE CLASSIFIED (3) Sepsis Code(s): A41.9 - SEPSIS, UNSPECIFIED ORGANISM (4) NICHOLAS (acute kidney injury) Code(s): N17.9 - ACUTE KIDNEY FAILURE, UNSPECIFIED (5) CAD (coronary artery disease) Code(s): I25.10 - ATHSCL HEART DISEASE OF [place] CORONARY ARTERY W/O ANG PCTRS (6) NSTEMI (non-ST elevated myocardial infarction) Code(s): I21.4 - NON-ST ELEVATION (NSTEMI) MYOCARDIAL INFARCTION Assessment/Plan PLAN Sepsis -- cultures blood negative, urine culture positive -- iv antibiotics -- ID eval noted -- will need BKA- scheduled for tomorrow, spoke with Vascular-- needs FFP to decrease INR --INR elevated due to sepsis -- iv fluids Afib with RVR -- s/p Amiodarone drip -- cardiology evaluation noted -- pt had recent Echo in December-- severe systolic dysfunction -- not on AC NSTEMI -- likely due to sepsis-- pt is at risk for surgery but nevertheless it is urgent that he gets BKA as gangrene is the cause of his overall condition -- on ASA and Plavix-- on hold pending surgery -- trend troponins DVT prophylaxis -- on Heparin sc -- on hold
--- NOTE | 2017-04-09 11:04 | PN ---
Progress Note (short form) - Note Progress Note: VAsc[facility] Surgery Pt seen and examined. Repeat INR is 2.5 Wll give vit k and ffp Pt rebooked for james bellamy DO
--- NOTE | 2017-04-09 11:04 | PN ---
Progress Note, Physician History of Present Illness: Poorly responsive to tactile stimulus Afebrile WBC remains elevated Awaiting BKA - Current Medication List Current Medications: Active Medications Acetaminophen (Tylenol -) 650 mg PO Q6H PRN PRN Reason: FEVER Last Admin: 04/08/17 03:43 Dose: 650 mg Aspirin (Asa -) 81 mg PO DAILY [facility] Chlorhexidine Gluconate (Hibiclens For Decolonization -) 1 applic TP HS [facility] Last Admin: 04/08/17 21:37 Dose: 1 applic Clonazepam (Klonopin -) 0.5 mg PO Q12H PRN PRN Reason: ANXIETY Last Admin: 04/08/17 22:34 Dose: 0.5 mg Clopidogrel Bisulfate (Plavix -) 75 mg PO DAILY [facility] Donepezil HCl (Aricept -) 10 mg PO DAILY [facility] Last Admin: 04/09/17 09:39 Dose: Not Given Heparin Sodium (Porcine) (Heparin -) 5,000 unit SQ BID [facility] Last Admin: 04/08/17 21:36 Dose: 5,000 unit Amiodarone HCl 450 mg/ (Dextrose) 250 mls @ 33.33 mls/hr IVPB TITR [facility]; 1 MG/ MIN PRN Reason: Protocol Last Admin: 04/08/17 22:15 Dose: 16.66 mls/hr Sodium Chloride (1/2 Normal Saline) 1,000 mls @ 80 mls/hr IV ASDIR [facility] Last Admin: 04/09/17 09:51 Dose: 80 mls/hr Piperacillin Sod/Tazobactam Sod (Zosyn 3.375gm Ivpb (Pre-Docked)) 50 mls @ 100 mls/hr IVPB Q8H-IV [facility] PRN Reason: Protocol Last Admin: 04/09/17 09:39 Dose: 100 mls/hr Vancomycin HCl 1,000 mg/ (Dextrose) 250 mls @ 250 mls/hr IVPB BID [facility] PRN Reason: Protocol Insulin Aspart (Novolog Vial Sliding Scale -) 1 vial SQ TIDAC [facility] PRN Reason: Protocol Last Admin: 04/09/17 06:08 Dose: Not Given Metoprolol Tartrate (Lopressor -) 50 mg PO TID [facility] Last Admin: 04/08/17 18:46 Dose: Not Given Morphine Sulfate (Morphine Injection -) 1 mg IVPUSH Q4H PRN PRN Reason: PAIN Last Admin: 04/09/17 05:45 Dose: 1 mg Mupirocin (Bactroban Ointment (For Decolonization) -) 1 applic NS BID [facility] Stop: 04/13/17 09:59 Last Admin: 04/09/17 09:39 Dose: 1 applic Tamsulosin HCl (Flomax -) 0.4 mg PO DAILY@1630 [facility] Last Admin: 04/08/17 18:47 Dose: Not Given - Objective Vital Signs: Vital Signs Temperature 97.6 F 04/09/17 10:00 Pulse Rate 120 H 04/09/17 10:00 Respiratory Rate 19 04/09/17 10:00 Blood Pressure 98/73 04/09/17 10:00 O2 Sat by Pulse Oximetry (%) 100 04/09/17 09:00 Constitutional: Yes: No Distress, Cachectic Cardiovascular: Yes: Regular Rate and Rhythm, S1, S2 Respiratory: Yes: Diminished Gastrointestinal: Yes: Normal Bowel Sounds, Soft. No: Tenderness Extremities: Yes: Other (+dry gangrene, feet) Labs: CBC, BMP 04/09/17 05:10 04/09/17 05:10 INR, PTT INR 2.55 (0.82-1.09) H 04/09/17 09:37 Assessment/Plan Sepsis secondary to foot source + Dry gangrene, feet UTI Elevated LFTs Leukocytosis Lactic acidosis Continue empiric zosyn For BKA
[2017-04-09] MEDS ORDERED: PHYTONADIONE 5 MG TABLET PO ONE (13:00)
--- NOTE | 2017-04-09 13:29 | PN ---
Teaching Attending Note Name of Resident: Kylie Delong ATTENDING PHYSICIAN STATEMENT I saw and evaluated the patient. I reviewed the resident's note and discussed the case with the resident. I agree with the resident's findings and plan as documented. SUBJECTIVE: Pt seen and examined in the ICU. Remains on amiodarone gtt. Still with some rapid rates. Blood pressure improving. OBJECTIVE: Last Vital Signs Temp Pulse Resp BP Pulse Ox 97.6 F 108 H 18 92/68 100 04/09/17 10:00 04/09/17 12:00 04/09/17 12:00 04/09/17 12:00 04/09/17 09:00 Intake & Output 04/06/17 04/07/17 04/08/17 04/09/17 23:59 23:59 23:59 23:59 Intake Total 4169 683 776.2 Output Total 120 600 200 Balance 4049 83 576.2 Weight 120 lb 134 lb 4.184 oz 133 lb 2.547 oz Gen: somnolent but arousable Heart: irregular, tachycardic Lung: decreased breath sounds at the bases Abd: soft, nontender Ext: necrotic feet CBC, BMP 04/09/17 05:10 04/09/17 05:10 Active Medications Acetaminophen (Tylenol -) 650 mg PO Q6H PRN PRN Reason: FEVER Last Admin: 04/08/17 03:43 Dose: 650 mg Aspirin (Asa -) 81 mg PO DAILY [facility] Carvedilol (Coreg -) 3.125 mg PO BID [facility] Chlorhexidine Gluconate (Hibiclens For Decolonization -) 1 applic TP HS [facility] Last Admin: 04/08/17 21:37 Dose: 1 applic Clonazepam (Klonopin -) 0.5 mg PO Q12H PRN PRN Reason: ANXIETY Last Admin: 04/08/17 22:34 Dose: 0.5 mg Clopidogrel Bisulfate (Plavix -) 75 mg PO DAILY [facility] Donepezil HCl (Aricept -) 10 mg PO DAILY [facility] Last Admin: 04/09/17 09:39 Dose: Not Given Heparin Sodium (Porcine) (Heparin -) 5,000 unit SQ BID [facility] Last Admin: 04/08/17 21:36 Dose: 5,000 unit Piperacillin Sod/Tazobactam Sod (Zosyn 3.375gm Ivpb (Pre-Docked)) 50 mls @ 100 mls/hr IVPB Q8H-IV [facility] PRN Reason: Protocol Last Admin: 04/09/17 09:39 Dose: 100 mls/hr Vancomycin HCl 1,000 mg/ (Dextrose) 250 mls @ 250 mls/hr IVPB BID [facility] PRN Reason: Protocol Insulin Aspart (Novolog Vial Sliding Scale -) 1 vial SQ TIDAC [facility] PRN Reason: Protocol Last Admin: 04/09/17 11:40 Dose: 2 units Metoprolol Tartrate (Lopressor -) 50 mg PO TID [facility] Last Admin: 04/08/17 18:46 Dose: Not Given Morphine Sulfate (Morphine Injection -) 1 mg IVPUSH Q4H PRN PRN Reason: PAIN Last Admin: 04/09/17 11:59 Dose: 1 mg Mupirocin (Bactroban Ointment (For Decolonization) -) 1 applic NS BID [facility] Stop: 04/13/17 09:59 Last Admin: 04/09/17 09:39 Dose: 1 applic Tamsulosin HCl (Flomax -) 0.4 mg PO DAILY@1630 [facility] Last Admin: 04/08/17 18:47 Dose: Not Given ASSESSMENT AND PLAN: Gangrenous Feet UTI Severe Sepsis Lactic Acidosis Acute Kidney Injury +Troponins likely Demand Ischemia Elevated LFTs likely ischemic injury Atrial Fibrillation with RVR LV Systolic Dysfunction DM PAD HTN Hyperlipidemia Dementia - continue antibiotics - f/u cultures - IVF boluses - monitor urine output, creatinine - trend lactate, LFTs, cardiac enzymes - wound care - will need amputation - start coreg, can d/c amiodarone gtt - NPO after midnight, hold AM heparin - continue ICU monitoring critical care time spent in reviewing chart, evaluating patient and formulating plan 35 min
[2017-04-09] MEDS: CARVEDILOL 3.125 MG TABLET (FP) PO SCH ×2 (13:47→22:28)
[2017-04-09] MEDS: TAMSULOSIN HCL 0.4 MG CAP.ER.24H (FP) PO SCH (17:19)
[2017-04-09 20:16] LABS: INR 2.41 (0.82-1.09)
[2017-04-09 20:32] LABS: ALBUMIN 1.5 g/dl (3.4-5.0); ANION GAP 11 (8-16); BILIRUBIN,TOTAL 1.4 mg/dL (0.2-1.0); CALCIUM 8.4 mg/dL (8.5-10.1); CO2 22 mmol/L (21-32); CREATININE 1.3 mg/dL (0.7-1.3); GLUCOSE,RANDOM 156 mg/dL (74-106); TOT PROT 5.9 g/dl (6.4-8.2)
[2017-04-09 20:46] LABS: ALK PHOS 300 U/L (45-117)
[2017-04-09 21:04] LABS: SGOT/AST 844 U/L (15-37); SGPT/ALT 660 U/L (12-78)
[2017-04-09 21:05] LABS: TROPONIN I 3.08 ng/ml (0.00-0.05)
[2017-04-09] MEDS ORDERED: VANCOMYCIN 1,000 MG in DEXTROSE 5%-WATER - 250 ML IVPB ONE (21:45)
[2017-04-09] MEDS: CHLORHEXIDINE GLUCONATE 4% CLEANSER FOR DECOLONIZATION TP SCH (22:28)
[2017-04-10] MEDS: PIPERACILLIN/TAZOB 3.375 GM 50 ML IVPB SCH ×3 (03:00→18:04)
[2017-04-10 06:25] LABS: BASOPHIL 0.1 % (0-2.0); EOSINOPHIL 0.4 % (0-4.5); MCH 26.3 pg (25.7-33.7); MCHC 31.9 g/dl (32.0-35.9); MEAN CELL VOLUME 82.7 fl (80-96); MEAN PLT VOLUME 8.8 fl (7.5-11.1); NEUTROPHILS 91.5 % (42.8-82.8); PLATELET COUNT 358 K/MM3 (134-434); RDW 18.8 % (11.9-15.9); WHITE BLOOD COUNT 19.9 K/mm3 (4.0-10.0)
[2017-04-10 06:30] LABS: INR 2.1 (0.82-1.09); PROTHROMBIN TIME (PATIENT) 23.5 SEC (9.98-11.88)
[2017-04-10] MEDS: INSULIN SLIDING SCALE (NOVOLOG) 1 VIAL SQ SCH ×3 (06:34→15:48)
[2017-04-10] MEDS: morphine CARPU-JECT 2 MG/1 ML DISP.SYRIN IVPUSH PRN ×3 (06:38→14:59)
[2017-04-10 07:09] LABS: ALBUMIN 1.5 g/dl (3.4-5.0); ANION GAP 12 (8-16); CO2 23 mmol/L (21-32); GLUCOSE,RANDOM 170 mg/dL (74-106); MAGNESIUM 1.9 mg/dL (1.8-2.4); PHOSPHOROUS 3.4 mg/dL (2.5-4.9)
[2017-04-10 07:11] LABS: ALK PHOS 274 U/L (45-117); BILIRUBIN,TOTAL 1.1 mg/dL (0.2-1.0); CREATININE 1.3 mg/dL (0.7-1.3); TOT PROT 5.9 g/dl (6.4-8.2)
[2017-04-10 07:14] LABS: SGOT/AST 494 U/L (15-37); SGPT/ALT 543 U/L (12-78)
--- NOTE | 2017-04-10 07:40 | PN ---
Physical Exam: 24H Events: s/p 1Ux PRBC Trops downtrending 3.08 -> 2.32; lactate downtrending 3.3 -> 2.0 s/p 1L bolus Vanc level 22.348 SUBJECTIVE: Patient seen and examined in ICU. Lethargic, but arousable. Confused. Not answering questions. OBJECTIVE: Vital Signs Period Temp Pulse Resp BP Sys/Mcdaniel Pulse Ox Last 24 Hr 97.6 F-98.2 F 100-123 13-19 87-110/63-74 98-100 Intake & Output 04/07/17 04/08/17 04/09/17 04/10/17 23:59 23:59 23:59 23:59 Intake Total 4169 683 1676.2 50 Output Total 120 600 800 200 Balance 4049 83 876.2 -150 Weight 54.431 kg 60.9 kg 60.4 kg 61.3 kg GENERAL: The patient is AOx1, incoherent speech (AD at baseline) LUNGS: decreased breath sounds at bases HEART: tachycardic, irregular rhythm, no murmur ABDOMEN: soft, ntnd UPPER EXTREMITIES: wwp, no edema LOWER EXTREMITIES: bilateral necrotic, gangrenous feet R>L : yris CBC, BMP 04/10/17 05:10 04/10/17 05:10 Ca - 8.0 Phos - 3.4 Mg - 1.9 04/07/17 04/08/17 04/08/17 04/09/17 04/09/17 04/10/17 14:27 18:00 20:00 09:37 19:30 05:10 INR 1.81 H D 2.54 H D 2.55 H Lactic Acid 7.9 H* 3.3 2.0 Total Bilirubin 1.1 mg/dL (0.2-1.0) H D 04/10/17 05:10 AST 494 U/L (15-37) H D 04/10/17 05:10 ALT 543 U/L (12-78) H 04/10/17 05:10 Alkaline Phosphatase 274 U/L (45-117) H 04/10/17 05:10 Albumin 1.5 g/dl (3.4-5.0) L 04/10/17 05:10 09/27/17 09/28/17 19:30 05:10 Troponin I 3.08 H* 2.32 H* INR 2.10 (0.82-1.09) H 04/10/17 05:10 Microbiology 04/07/17 19:30 Urine - Urine - Catheterized Urine Culture - Preliminary Lactose Fermenting Neg Bacilli 04/07/17 15:14 Blood - Peripheral Venous Blood Culture - Preliminary NO GROWTH OBTAINED AFTER 48 HOURS, INCUBATION TO CONTINUE FOR 3 DAYS. 04/07/17 15:14 Blood - Peripheral Venous Blood Culture - Preliminary NO GROWTH OBTAINED AFTER 48 HOURS, INCUBATION TO CONTINUE FOR 3 DAYS. Active Medications Acetaminophen (Tylenol -) 650 mg PO Q6H PRN PRN Reason: FEVER Last Admin: 04/08/17 03:43 Dose: 650 mg Aspirin (Asa -) 81 mg PO DAILY [facility] Carvedilol (Coreg -) 3.125 mg PO BID [facility] Last Admin: 04/10/17 09:15 Dose: Not Given Chlorhexidine Gluconate (Hibiclens For Decolonization -) 1 applic TP HS [facility] Last Admin: 04/09/17 22:28 Dose: 1 applic Clonazepam (Klonopin -) 0.5 mg PO Q12H PRN PRN Reason: ANXIETY Last Admin: 04/08/17 22:34 Dose: 0.5 mg Clopidogrel Bisulfate (Plavix -) 75 mg PO DAILY [facility] Donepezil HCl (Aricept -) 10 mg PO DAILY [facility] Last Admin: 04/10/17 09:15 Dose: Not Given Heparin Sodium (Porcine) (Heparin -) 5,000 unit SQ BID [facility] Last Admin: 04/08/17 21:36 Dose: 5,000 unit Piperacillin Sod/Tazobactam Sod (Zosyn 3.375gm Ivpb (Pre-Docked)) 50 mls @ 100 mls/hr IVPB Q8H-IV [facility] PRN Reason: Protocol Last Admin: 04/10/17 09:14 Dose: 100 mls/hr Dextrose/Sodium Chloride (D5-Ns -) 1,000 mls @ 21 mls/hr IV ASDIR [facility] Stop: 04/11/17 07:59 Last Admin: 04/10/17 08:00 Dose: 21 mls/hr Insulin Aspart (Novolog Vial Sliding Scale -) 1 vial SQ TIDAC [facility] PRN Reason: Protocol Last Admin: 04/10/17 11:08 Dose: Not Given Metoprolol Tartrate (Lopressor -) 50 mg PO TID [facility] Last Admin: 04/08/17 18:46 Dose: Not Given Morphine Sulfate (Morphine Injection -) 1 mg IVPUSH Q4H PRN PRN Reason: PAIN Last Admin: 04/10/17 10:46 Dose: 1 mg Mupirocin (Bactroban Ointment (For Decolonization) -) 1 applic NS BID [facility] Stop: 04/13/17 09:59 Last Admin: 04/10/17 09:14 Dose: 1 applic Tamsulosin HCl (Flomax -) 0.4 mg PO DAILY@1630 [facility] Last Admin: 04/09/17 17:19 Dose: 0.4 mg ASSESSMENT/PLAN: 77yo M with AD, NIDDM, HTN, HLD, Afib with RVR, recent admission for bacteremia and ESBL+ UTI (d/c 03/21), PAD with chronic foot ulcers s/p RLE angioplasty now with severe sepsis, UTI, and gangrenous feet who will have RLE BKA today. #ID A: UTI, gangrenous feet -ID consulted -Abx per ID (zosyn and vanc) --> Hold vanc today (Vanc level >22.348 AM) -isolation precautions (prior ESBL bacteremia/UTI) -Trend lactate -f/u blood cultures (NGTD x 24h) #Heme -Vit K PO -Transfuse 3U FFP today before surgery #CV -Cardiology consulted -Fluid boluses to maintain MAP>65 -Continue carvedilol 3.125mg PO BID if BP tolerates -Hold home ASA, clopidogrel, and metoprolol 50mg TID for preop #Pulm -O2 to maintain SpaO2 >90% #Renal A: NICHOLAS (baseline Cr <1.0) -Trend Cr -arndt, strict I&Os #GI A: elevated LFTs likely 2/2 to ischemia/shock liver -Monitor LFTs #FEN -IVF - hold for now, bolus as needed for BP -lytes wnl -NPO for pre-op; (can be on dysphagia puree with thin lq) #PPX -DVT - 5000U Heparin sq BID, hold AM dose -GI - not indicated #Dispo: continue ICU monitoring d/w Dr. Luciano Delong MD PGY-1 Visit type - Emergency Visit Emergency Visit: No - New Patient This patient is new to me today: No - Critical Care Critical Care patient: Yes Total Critical Care Time (in minutes): 35 Critical Care Statement: The care of this patient involved high complexity decision making to prevent further life threatening deterioration of the patient 's condition and/or to evaluate & treat vital organ system(s) failure or risk of failure.
[2017-04-10] MEDS ORDERED: DEXTROSE 5%-NORMAL SALINE 1,000 ML IV SCH ×2 (08:00→15:50)
[2017-04-10] MEDS: MUPIROCIN 2% TOPICAL OINTMENT FOR DECOLONIZATION NS SCH ×2 (09:14→21:57)
[2017-04-10] MEDS: CARVEDILOL 3.125 MG TABLET (FP) PO SCH ×2 (09:15→21:57)
[2017-04-10] MEDS: DONEPEZIL HCL 10 MG TABLET (FP) PO SCH (09:15)
[2017-04-10] MEDS ORDERED: PHYTONADIONE 5 MG TABLET PO ONE (09:26)
--- NOTE | 2017-04-10 10:02 | PN ---
Progress Note, Physician Chief Complaint: awake today no complaints - Current Medication List Current Medications: Active Medications Acetaminophen (Tylenol -) 650 mg PO Q6H PRN PRN Reason: FEVER Last Admin: 04/08/17 03:43 Dose: 650 mg Aspirin (Asa -) 81 mg PO DAILY [facility] Carvedilol (Coreg -) 3.125 mg PO BID [facility] Last Admin: 04/10/17 09:15 Dose: Not Given Chlorhexidine Gluconate (Hibiclens For Decolonization -) 1 applic TP HS [facility] Last Admin: 04/09/17 22:28 Dose: 1 applic Clonazepam (Klonopin -) 0.5 mg PO Q12H PRN PRN Reason: ANXIETY Last Admin: 04/08/17 22:34 Dose: 0.5 mg Clopidogrel Bisulfate (Plavix -) 75 mg PO DAILY [facility] Donepezil HCl (Aricept -) 10 mg PO DAILY [facility] Last Admin: 04/10/17 09:15 Dose: Not Given Heparin Sodium (Porcine) (Heparin -) 5,000 unit SQ BID [facility] Last Admin: 04/08/17 21:36 Dose: 5,000 unit Piperacillin Sod/Tazobactam Sod (Zosyn 3.375gm Ivpb (Pre-Docked)) 50 mls @ 100 mls/hr IVPB Q8H-IV [facility] PRN Reason: Protocol Last Admin: 04/10/17 09:14 Dose: 100 mls/hr Vancomycin HCl 1,000 mg/ (Dextrose) 250 mls @ 250 mls/hr IVPB BID [facility] PRN Reason: Protocol Dextrose/Sodium Chloride (D5-Ns -) 1,000 mls @ 21 mls/hr IV ASDIR [facility] Stop: 04/11/17 07:59 Last Admin: 04/10/17 08:00 Dose: 21 mls/hr Insulin Aspart (Novolog Vial Sliding Scale -) 1 vial SQ TIDAC [facility] PRN Reason: Protocol Last Admin: 04/10/17 06:34 Dose: 2 units Metoprolol Tartrate (Lopressor -) 50 mg PO TID [facility] Last Admin: 04/08/17 18:46 Dose: Not Given Morphine Sulfate (Morphine Injection -) 1 mg IVPUSH Q4H PRN PRN Reason: PAIN Last Admin: 04/10/17 06:38 Dose: 1 mg Mupirocin (Bactroban Ointment (For Decolonization) -) 1 applic NS BID [facility] Stop: 04/13/17 09:59 Last Admin: 04/10/17 09:14 Dose: 1 applic Tamsulosin HCl (Flomax -) 0.4 mg PO DAILY@1630 [facility] Last Admin: 04/09/17 17:19 Dose: 0.4 mg - Objective Vital Signs: Vital Signs Temperature 98 F 04/10/17 10:00 Pulse Rate 114 H 04/10/17 10:00 Respiratory Rate 15 04/10/17 10:00 Blood Pressure 101/68 04/10/17 10:00 O2 Sat by Pulse Oximetry (%) 99 04/10/17 08:00 Constitutional: Yes: No Distress Cardiovascular: Yes: Pulse Irregular Respiratory: Yes: Diminished Gastrointestinal: Yes: Normal Bowel Sounds, Soft. No: Distention, Tenderness Labs: CBC, BMP 04/10/17 05:10 04/10/17 05:10 INR, PTT INR 2.10 (0.82-1.09) H 04/10/17 05:10 Problem List - Problems (1) Atrial fibrillation with RVR Code(s): I48.91 - UNSPECIFIED ATRIAL FIBRILLATION (2) Gangrene Code(s): I96 - GANGRENE, NOT ELSEWHERE CLASSIFIED (3) Sepsis Code(s): A41.9 - SEPSIS, UNSPECIFIED ORGANISM (4) NICHOLAS (acute kidney injury) Code(s): N17.9 - ACUTE KIDNEY FAILURE, UNSPECIFIED (5) CAD (coronary artery disease) Code(s): I25.10 - ATHSCL HEART DISEASE OF [place] CORONARY ARTERY W/O ANG PCTRS (6) NSTEMI (non-ST elevated myocardial infarction) Code(s): I21.4 - NON-ST ELEVATION (NSTEMI) MYOCARDIAL INFARCTION Assessment/Plan PLAN Sepsis -- cultures blood negative, urine culture positive -- iv antibiotics -- ID eval noted -- will need BKA- scheduled for today, will need to receive FFP prior to OR --INR elevated due to sepsis -- iv fluids Afib with RVR -- off Amiodarone drip -- cardiology evaluation noted -- pt had recent Echo in December-- severe systolic dysfunction -- not on AC NSTEMI -- likely due to sepsis-- pt is at risk for surgery but nevertheless it is urgent that he gets BKA as gangrene is the cause of his overall condition -- on ASA and Plavix-- on hold pending surgery -- trend troponins DVT prophylaxis -- on Heparin sc -- on hold
--- NOTE | 2017-04-10 10:40 | EKG ---
Test Reason : Blood Pressure : / mmHG Vent. Rate : 120 BPM Atrial Rate : 326 BPM P-R Int : 000 ms QRS Dur : 108 ms QT Int : 370 ms P-R-T Axes : 000 096 250 degrees QTc Int : 522 ms ATRIAL FIBRILLATION WITH RAPID VENTRICULAR RESPONSE RIGHTWARD AXIS LOW VOLTAGE QRS SEPTAL INFARCT (CITED ON OR BEFORE 01-JAN-2017) PROLONGED QT ABNORMAL ECG Confirmed by EROS DOWD MD ([id number]) on 04/10/2017 10:40:01 AM Referred By: CHARLENE HOYT Confirmed By:EROS DOWD MD
--- NOTE | 2017-04-10 12:43 | PN ---
Teaching Attending Note Name of Resident: Kylie Delong ATTENDING PHYSICIAN STATEMENT I saw and evaluated the patient. I reviewed the resident's note and discussed the case with the resident. I agree with the resident's findings and plan as documented. SUBJECTIVE: Pt seen and examined in the ICU. More awake, still in rapid afib. Not answering questions. No fevers recorded. OBJECTIVE: Last Vital Signs Temp Pulse Resp BP Pulse Ox 98.0 F 117 H 14 92/59 100 04/10/17 12:00 04/10/17 12:00 04/10/17 12:00 04/10/17 12:00 04/10/17 10:14 Intake & Output 04/07/17 04/08/17 04/09/17 04/10/17 23:59 23:59 23:59 23:59 Intake Total 4169 683 1676.2 50 Output Total 120 600 800 200 Balance 4049 83 876.2 -150 Weight 120 lb 134 lb 4.184 oz 133 lb 2.547 oz 135 lb 2.294 oz Gen: NAD at rest Heart: tachycardic, irregular Lung: decreased breath sounds at the bases Abd: soft, nontender Ext: necrotic feet CBC, BMP 04/10/17 05:10 04/10/17 05:10 Active Medications Acetaminophen (Tylenol -) 650 mg PO Q6H PRN PRN Reason: FEVER Last Admin: 04/08/17 03:43 Dose: 650 mg Aspirin (Asa -) 81 mg PO DAILY [facility] Carvedilol (Coreg -) 3.125 mg PO BID [facility] Last Admin: 04/10/17 09:15 Dose: Not Given Chlorhexidine Gluconate (Hibiclens For Decolonization -) 1 applic TP HS [facility] Last Admin: 04/09/17 22:28 Dose: 1 applic Clonazepam (Klonopin -) 0.5 mg PO Q12H PRN PRN Reason: ANXIETY Last Admin: 04/08/17 22:34 Dose: 0.5 mg Clopidogrel Bisulfate (Plavix -) 75 mg PO DAILY [facility] Donepezil HCl (Aricept -) 10 mg PO DAILY [facility] Last Admin: 04/10/17 09:15 Dose: Not Given Heparin Sodium (Porcine) (Heparin -) 5,000 unit SQ BID [facility] Last Admin: 04/08/17 21:36 Dose: 5,000 unit Piperacillin Sod/Tazobactam Sod (Zosyn 3.375gm Ivpb (Pre-Docked)) 50 mls @ 100 mls/hr IVPB Q8H-IV [facility] PRN Reason: Protocol Last Admin: 04/10/17 09:14 Dose: 100 mls/hr Vancomycin HCl 1,000 mg/ (Dextrose) 250 mls @ 250 mls/hr IVPB BID [facility] PRN Reason: Protocol Dextrose/Sodium Chloride (D5-Ns -) 1,000 mls @ 21 mls/hr IV ASDIR [facility] Stop: 04/11/17 07:59 Last Admin: 04/10/17 08:00 Dose: 21 mls/hr Insulin Aspart (Novolog Vial Sliding Scale -) 1 vial SQ TIDAC [facility] PRN Reason: Protocol Last Admin: 04/10/17 11:08 Dose: Not Given Metoprolol Tartrate (Lopressor -) 50 mg PO TID [facility] Last Admin: 04/08/17 18:46 Dose: Not Given Morphine Sulfate (Morphine Injection -) 1 mg IVPUSH Q4H PRN PRN Reason: PAIN Last Admin: 04/10/17 10:46 Dose: 1 mg Mupirocin (Bactroban Ointment (For Decolonization) -) 1 applic NS BID [facility] Stop: 04/13/17 09:59 Last Admin: 04/10/17 09:14 Dose: 1 applic Tamsulosin HCl (Flomax -) 0.4 mg PO DAILY@1630 [facility] Last Admin: 04/09/17 17:19 Dose: 0.4 mg ASSESSMENT AND PLAN: Gangrenous Feet UTI Severe Sepsis improving Lactic Acidosis resolving Acute Kidney Injury +Troponins likely Demand Ischemia Elevated LFTs likely ischemic injury Atrial Fibrillation with RVR LV Systolic Dysfunction DM PAD HTN Hyperlipidemia Dementia - continue antibiotics - f/u cultures - IVF boluses - monitor urine output, creatinine - wound care - for OR today - transfuse FFP prior to OR - rate control - NPO after midnight, hold AM heparin - continue ICU monitoring critical care time spent in reviewing chart, evaluating patient and formulating plan 35 min
[2017-04-10] MEDS: TAMSULOSIN HCL 0.4 MG CAP.ER.24H (FP) PO SCH (16:30)
[2017-04-10] MEDS ORDERED: ETOMIDATE 20 MG/10 ML AMPUL IVPUSH ONE (17:15)
[2017-04-10] MEDS ORDERED: MIDAZOLAM HCL 2 MG/2 ML SINGLE DOSE VIAL ONE ×4 (17:15)
[2017-04-10] MEDS ORDERED: LIDOCAINE HCL/PF 2% SDV 5ML VIAL ONE (17:15)
[2017-04-10] MEDS ORDERED: ROCURONIUM BROMIDE 50 MG/5 ML VIAL ONE (17:15)
[2017-04-10] MEDS ORDERED: PHENYLEPHRINE HCL 10 MG/1 ML SINGLE DOSE VIAL ONE (17:15)
[2017-04-10 18:12] LABS: INR 1.76 (0.82-1.09); PROTHROMBIN TIME (PATIENT) 19.6 SEC (9.98-11.88)
[2017-04-10] MEDS ORDERED: PIPERACILLIN/TAZOB 3.375 GM/50 ML PRE-DOCKED IVPB ONE (18:21)
[2017-04-10] MEDS ORDERED: NEOSTIGMINE METHYLSULFATE 0.5 MG/ML - 10 ML MDV ONE (18:58)
[2017-04-10] MEDS ORDERED: GLYCOPYRROLATE 0.2 MG/1 ML VIAL ONE ×2 (18:58→19:06)
--- NOTE | 2017-04-10 19:13 | OP ---
Operative Note - Note: Operative Date: 04/10/17 Pre-Operative Diagnosis: right foot gangrene Operation: right bka Post-Operative Diagnosis: Same as Pre-op Surgeon: Devan Kothari Anesthesia: General Estimated Blood Loss (mls): 50 Operative Report Dictated: Yes
--- NOTE | 2017-04-10 19:27 | SURG ---
Surgery Cleaning Validation Consultant Note Cleaning Validation Consultant: Jaxon Fong PA-C Date of Service: 04/10/17 Diagnosis: Right foot gangrene Procedure: Right below knee amputation I was present for the entirety of the operative procedure. For further detail, please refer to operative report. Visit type - Case Type Case Type: ED Admission - Emergency Emergency Visit: Yes ED Registration Date: 04/07/17 Care time: The patient presented to the Emergency Department on the above date and was hospitalized for further evaluation of their emergent condition. - New patient This patient is new to me today: Yes Date on this admission: 04/10/17
[2017-04-10] MEDS ORDERED: CHLORHEXIDINE GLUCONATE 4% CLEANSER FOR DECOLONIZATION TP SCH (22:00)
[2017-04-10] MEDS ORDERED: morphine CARPU-JECT 2 MG/1 ML DISP.SYRIN IVPUSH PRN (23:57)
[2017-04-10] MEDS ORDERED: ACETAMINOPHEN 325 MG TABLET (FP) PO PRN (23:57)
[2017-04-11] MEDS: PIPERACILLIN/TAZOB 3.375 GM 50 ML IVPB SCH ×2 (03:00→09:36)
[2017-04-11] MEDS ORDERED: PT OWN MED DRAWER 7, Y5N ONE ×2 (03:04→09:30)
[2017-04-11] MEDS ORDERED: DEXTROSE 5%-WATER - 1,000 ML IV SCH (06:00)
[2017-04-11] MEDS ORDERED: METOPROLOL TARTRATE 50 MG TABLET (FP) PO SCH (06:00)
[2017-04-11] MEDS: INSULIN SLIDING SCALE (NOVOLOG) 1 VIAL SQ SCH ×3 (06:02→18:28)
[2017-04-11 06:59] LABS: BASOPHIL 0.3 % (0-2.0); EOSINOPHIL 0.4 % (0-4.5); MCH 25.9 pg (25.7-33.7); MEAN CELL VOLUME 83.4 fl (80-96); MEAN PLT VOLUME 8.6 fl (7.5-11.1); NEUTROPHILS 87.9 % (42.8-82.8); PLATELET COUNT 259 K/MM3 (134-434); RDW 19.5 % (11.9-15.9); WHITE BLOOD COUNT 17.3 K/mm3 (4.0-10.0)
--- NOTE | 2017-04-11 07:13 | PN ---
Physical Exam: 24H Events: yesterday - R BKA ON/AM: afebrile, slightly improving WBC SUBJECTIVE: Patient seen and examined in ICU. Lethargic, but arousable. Confused with incoherent speech. OBJECTIVE: Vital Signs Period Temp Pulse Resp BP Sys/Mcdaniel Pulse Ox Last 24 Hr 96.3 F-98.0 F 104-125 12-22 80-101/59-75 96-100 Intake & Output 04/08/17 04/09/17 04/10/17 04/11/17 23:59 23:59 23:59 23:59 Intake Total 683 1676.2 2296.5 604 Output Total 600 800 450 125 Balance 83 876.2 1846.5 479 Weight 60.9 kg 60.4 kg 61.3 kg 66.7 kg GENERAL: The patient is AOx1, incoherent speech (AD at baseline) LUNGS: decreased breath sounds at bases HEART: tachycardic, irregular rhythm, no murmur ABDOMEN: soft, ntnd UPPER EXTREMITIES: wwp, no edema LOWER EXTREMITIES: R BKA - dressing dry and intact, L foot ischemia : arndt CBC, BMP 04/11/17 05:30 04/11/17 05:30 Ca - 8.2 Phos - 2.9 Mg - 1.8 Hepatic Panel Total Bilirubin 1.2 mg/dL (0.2-1.0) H 04/11/17 05:30 AST 197 U/L (15-37) H D 04/11/17 05:30 ALT 299 U/L (12-78) H D 04/11/17 05:30 Alkaline Phosphatase 216 U/L (45-117) H D 04/11/17 05:30 Albumin 1.6 g/dl (3.4-5.0) L 04/11/17 05:30 Microbiology 04/07/17 15:14 Blood - Peripheral Venous Blood Culture - Preliminary NO GROWTH OBTAINED AFTER 72 HOURS, INCUBATION TO CONTINUE FOR 2 DAYS. 04/07/17 15:14 Blood - Peripheral Venous Blood Culture - Preliminary NO GROWTH OBTAINED AFTER 72 HOURS, INCUBATION TO CONTINUE FOR 2 DAYS. 04/07/17 19:30 Urine - Urine - Catheterized Urine Culture - Final Escherichia Coli Esbl [employer] Active Medications Acetaminophen (Tylenol -) 650 mg PO Q6H PRN PRN Reason: FEVER Amino Acids (Prosource No Carb Liquid Pkt) 30 ml PO BID@0800,1730 [facility] Last Admin: 04/11/17 09:34 Dose: 30 ml Aspirin (Asa -) 81 mg PO DAILY [facility] Last Admin: 04/11/17 10:17 Dose: 81 mg Carvedilol (Coreg -) 3.125 mg PO BID [facility] Last Admin: 04/11/17 09:34 Dose: 3.125 mg Chlorhexidine Gluconate (Hibiclens For Decolonization -) 1 applic TP HS [facility] Last Admin: 04/10/17 21:58 Dose: 1 applic Clopidogrel Bisulfate (Plavix -) 75 mg PO DAILY [facility] Last Admin: 04/11/17 10:17 Dose: 75 mg Donepezil HCl (Aricept -) 10 mg PO DAILY [facility] Last Admin: 04/11/17 09:34 Dose: 10 mg Heparin Sodium (Porcine) (Heparin -) 5,000 unit SQ BID [facility] Last Admin: 04/11/17 10:17 Dose: 5,000 unit Dextrose (D5w -) 1,000 mls @ 42 mls/hr IV ASDIR [facility] Last Admin: 04/11/17 06:02 Dose: 42 mls/hr Ertapenem 1 gm/ Sodium (Chloride) 50 mls @ 50 mls/hr IVPB DAILY [facility] PRN Reason: Protocol Insulin Aspart (Novolog Vial Sliding Scale -) 1 vial SQ TIDAC [facility] PRN Reason: Protocol Last Admin: 04/11/17 11:01 Dose: Not Given Metoprolol Tartrate (Lopressor -) 50 mg PO TID [facility] Morphine Sulfate (Morphine Injection -) 1 mg IVPUSH Q3H PRN PRN Reason: PAIN Mupirocin (Bactroban Ointment (For Decolonization) -) 1 applic NS BID [facility] Stop: 04/15/17 21:59 Last Admin: 04/11/17 09:42 Dose: 1 applic Tamsulosin HCl (Flomax -) 0.4 mg PO DAILY@1630 [facility] ASSESSMENT/PLAN: 77yo M with AD, NIDDM, HTN, HLD, Afib with RVR, recent admission for bacteremia and ESBL+ UTI (d/c 03/21), PAD with chronic foot ulcers now POD1 s/p R BKA with UTI (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 #ID A: UTI (ESBL agent producer), gangrenous feet -ID consulted -Abx per ID (switched zosyn to ertapenem) -isolation precautions (+ESBL UTI) #CV -Cardiology consulted -Fluid boluses to maintain MAP>65 -Continue carvedilol 3.125mg PO BID if BP tolerates -Restart home ASA and clopidogrel #Pulm -O2 to maintain SpaO2 >90% #Renal A: NICHOLAS (baseline Cr <1.0) -Trend Cr -arndt, monitor I&Os #GI A: elevated LFTs likely 2/2 to ischemia/shock liver -Monitor LFTs #Heme -Monitor H&H #Neuro -oxycodone 1mg q3h PRN for pain (can increase to to 2mg if needed) #FEN -IVF - D5W @ 42cc/hr -Repleted Mg 2gm IVPB -dysphagia puree, Prosource 30cc BID, Glucerna TID, MVI supplementation #PPX -DVT - 5000U Heparin sq BID -GI - not indicated #Dispo: transfer to telemetry FULL code d/w Dr. Kiera Delong MD PGY-1 Visit type - Emergency Visit Emergency Visit: No - New Patient This patient is new to me today: No - Critical Care Critical Care patient: Yes Total Critical Care Time (in minutes): 35 Critical Care Statement: The care of this patient involved high complexity decision making to prevent further life threatening deterioration of the patient 's condition and/or to evaluate & treat vital organ system(s) failure or risk of failure.
[2017-04-11 08:04] LABS: ALBUMIN 1.6 g/dl (3.4-5.0); ANION GAP 8 (8-16); BILIRUBIN,TOTAL 1.2 mg/dL (0.2-1.0); CALCIUM 8.2 mg/dL (8.5-10.1); CO2 26 mmol/L (21-32); CREATININE 1.2 mg/dL (0.7-1.3); GLUCOSE,RANDOM 83 mg/dL (74-106); MAGNESIUM 1.8 mg/dL (1.8-2.4); PHOSPHOROUS 2.9 mg/dL (2.5-4.9); SGOT/AST 197 U/L (15-37); SGPT/ALT 299 U/L (12-78); TOT PROT 5.8 g/dl (6.4-8.2)
[2017-04-11 08:06] LABS: ALK PHOS 216 U/L (45-117)
[2017-04-11] MEDS: AMINO ACIDS/PROTEIN HYDROLYS 30 ML LIQUID.PKT PO SCH ×2 (09:34→17:30)
[2017-04-11] MEDS: MUPIROCIN 2% TOPICAL OINTMENT FOR DECOLONIZATION NS SCH ×2 (09:42→22:56)
[2017-04-11] MEDS ORDERED: MAGNESIUM SULF 50% (8.12 MEQ/2 ML-1 GM VIAL) IVPB ONE (09:45)
[2017-04-11] MEDS ORDERED: CARVEDILOL 3.125 MG TABLET (FP) PO SCH (10:00)
[2017-04-11] MEDS ORDERED: CLOPIDOGREL BISULFATE 75 MG TABLET (FP) PO SCH (10:00)
[2017-04-11] MEDS ORDERED: ASPIRIN 81 MG CHEWABLE TABLETS PO SCH (10:00)
[2017-04-11] MEDS ORDERED: HEPARIN NA (PORCINE) 5,000 UNITS/ML 1ML VIAL SQ SCH (10:00)
[2017-04-11] MEDS ORDERED: DONEPEZIL HCL 10 MG TABLET (FP) PO SCH (10:00)
[2017-04-11] MEDS ORDERED: ASPIRIN 81 MG CHEWABLE TABLETS ONE (10:09)
--- NOTE | 2017-04-11 10:46 | PN ---
Progress Note, Physician History of Present Illness: Poorly responsive POD #1 BKA Afebrile WBC slightly improved LFTs improved Urine c/s ESBL - Current Medication List Current Medications: Active Medications Acetaminophen (Tylenol -) 650 mg PO Q6H PRN PRN Reason: FEVER Amino Acids (Prosource No Carb Liquid Pkt) 30 ml PO BID@0800,1730 [facility] Last Admin: 04/11/17 09:34 Dose: 30 ml Aspirin (Asa -) 81 mg PO DAILY [facility] Carvedilol (Coreg -) 3.125 mg PO BID [facility] Last Admin: 04/11/17 09:34 Dose: 3.125 mg Chlorhexidine Gluconate (Hibiclens For Decolonization -) 1 applic TP HS [facility] Last Admin: 04/10/17 21:58 Dose: 1 applic Clopidogrel Bisulfate (Plavix -) 75 mg PO DAILY [facility] Donepezil HCl (Aricept -) 10 mg PO DAILY [facility] Last Admin: 04/11/17 09:34 Dose: 10 mg Heparin Sodium (Porcine) (Heparin -) 5,000 unit SQ BID [facility] Piperacillin Sod/Tazobactam Sod (Zosyn 3.375gm Ivpb (Pre-Docked)) 50 mls @ 100 mls/hr IVPB Q8H-IV [facility] PRN Reason: Protocol Last Admin: 04/11/17 09:36 Dose: 100 mls/hr Dextrose (D5w -) 1,000 mls @ 42 mls/hr IV ASDIR [facility] Last Admin: 04/11/17 06:02 Dose: 42 mls/hr Insulin Aspart (Novolog Vial Sliding Scale -) 1 vial SQ TIDAC [facility] PRN Reason: Protocol Last Admin: 04/11/17 06:02 Dose: Not Given Metoprolol Tartrate (Lopressor -) 50 mg PO TID [facility] Morphine Sulfate (Morphine Injection -) 1 mg IVPUSH Q4H PRN PRN Reason: PAIN Mupirocin (Bactroban Ointment (For Decolonization) -) 1 applic NS BID [facility] Stop: 04/15/17 21:59 Last Admin: 04/11/17 09:42 Dose: 1 applic Tamsulosin HCl (Flomax -) 0.4 mg PO DAILY@1630 [facility] - Objective Vital Signs: Vital Signs Temperature 97.4 F L 04/11/17 05:59 Pulse Rate 119 H 04/11/17 05:59 Respiratory Rate 15 04/11/17 05:59 Blood Pressure 99/75 04/11/17 05:59 O2 Sat by Pulse Oximetry (%) 96 04/10/17 21:00 Constitutional: Yes: No Distress, Cachectic Eyes: Yes: Conjunctiva Clear Cardiovascular: Yes: Regular Rate and Rhythm, S1, S2 Respiratory: Yes: Diminished Gastrointestinal: Yes: Normal Bowel Sounds, Soft. No: Tenderness Extremities: Yes: Other (post op dressing in place) Labs: CBC, BMP 04/11/17 05:30 04/11/17 05:30 INR, PTT INR 1.76 (0.82-1.09) H 04/10/17 17:00 Assessment/Plan Sepsis secondary to foot source + Dry gangrene, feet POD #1 BKA UTI ESBL Elevated LFTs- improved Leukocytosis-improving Lactic acidosis Substitute ertapenem Contact precautions
[2017-04-11] MEDS ORDERED: ERTAPENEM SODIUM 1 GM in SODIUM CHLORIDE 50 ML IVPB SCH (12:00)
--- NOTE | 2017-04-11 12:18 | PN ---
Progress Note (short form) - Note Progress Note: patient seen and examined in ICU Chart reviewed Case discussed with ICU attending Lethargic Remains tachycardic and hypotensive Vital Signs Temp 97.4 F L 04/11/17 05:59 Pulse 119 H 04/11/17 05:59 Resp 15 04/11/17 05:59 BP 99/75 04/11/17 05:59 Pulse Ox 96 04/10/17 21:00 Intake & Output 04/10/17 04/11/17 04/11/17 23:59 11:59 23:59 Intake Total 2246.5 604 Output Total 250 125 Balance 1996.5 479 Weight 147 lb 0.773 oz Intake: IV 1228.5 504 D5-Ns - 1,000 ml @ 21 mls 178.5 /hr IV ASDIR [facility] Rx#: [id number] D5-Ns - 1,000 ml @ 100 150 mls/hr IV ASDIR [facility] Rx#: [id number] D5w - 1,000 ml @ 42 mls/ 504 hr IV ASDIR [facility] Rx#: [id number] IVPB 50 100 Oral 0 Fresh Frozen Plasma 968 Output: Urine 250 125 [place] 250 125 Other: Voiding Method Indwelling Catheter Bowel Movement No No Weight Measurement Method Built in [facility] Active Medications Acetaminophen (Tylenol -) 650 mg PO Q6H PRN PRN Reason: FEVER Amino Acids (Prosource No Carb Liquid Pkt) 30 ml PO BID@0800,1730 [facility] Last Admin: 04/11/17 09:34 Dose: 30 ml Aspirin (Asa -) 81 mg PO DAILY [facility] Last Admin: 04/11/17 10:17 Dose: 81 mg Carvedilol (Coreg -) 3.125 mg PO BID [facility] Last Admin: 04/11/17 09:34 Dose: 3.125 mg Chlorhexidine Gluconate (Hibiclens For Decolonization -) 1 applic TP HS [facility] Last Admin: 04/10/17 21:58 Dose: 1 applic Clopidogrel Bisulfate (Plavix -) 75 mg PO DAILY [facility] Last Admin: 04/11/17 10:17 Dose: 75 mg Donepezil HCl (Aricept -) 10 mg PO DAILY [facility] Last Admin: 04/11/17 09:34 Dose: 10 mg Heparin Sodium (Porcine) (Heparin -) 5,000 unit SQ BID [facility] Last Admin: 04/11/17 10:17 Dose: 5,000 unit Dextrose (D5w -) 1,000 mls @ 42 mls/hr IV ASDIR [facility] Last Admin: 04/11/17 06:02 Dose: 42 mls/hr Ertapenem 1 gm/ Sodium (Chloride) 50 mls @ 50 mls/hr IVPB DAILY [facility] PRN Reason: Protocol Insulin Aspart (Novolog Vial Sliding Scale -) 1 vial SQ TIDAC [facility] PRN Reason: Protocol Last Admin: 04/11/17 11:01 Dose: Not Given Metoprolol Tartrate (Lopressor -) 50 mg PO TID [facility] Morphine Sulfate (Morphine Injection -) 1 mg IVPUSH Q3H PRN PRN Reason: PAIN Mupirocin (Bactroban Ointment (For Decolonization) -) 1 applic NS BID [facility] Stop: 04/15/17 21:59 Last Admin: 04/11/17 09:42 Dose: 1 applic Tamsulosin HCl (Flomax -) 0.4 mg PO DAILY@1630 [facility] CBC, BMP 04/11/17 05:30 04/11/17 05:30 physical exam Constitutional: Yes: lethargic Cardiovascular: Yes: Pulse Irregular--tachycardic Respiratory: Yes: Diminished Gastrointestinal: Yes: Normal Bowel Sounds, Soft. No: Distention, Tenderness right lower extremity--- status post BKA--- knee immobilizer in place. Assessment and plan Postoperative day #1 Sepsis likely due to foot gangrene Rapid atrial fibrillation Hypotension Continue present care Monitor Antibiotics Cardiology to follow Discussed with ICU attending Overall condition guarded Will follow Problem List - Problems (1) Atrial fibrillation with RVR Code(s): I48.91 - UNSPECIFIED ATRIAL FIBRILLATION (2) Gangrene Code(s): I96 - GANGRENE, NOT ELSEWHERE CLASSIFIED (3) Sepsis Code(s): A41.9 - SEPSIS, UNSPECIFIED ORGANISM (4) NICHOLAS (acute kidney injury) Code(s): N17.9 - ACUTE KIDNEY FAILURE, UNSPECIFIED (5) CAD (coronary artery disease) Code(s): I25.10 - ATHSCL HEART DISEASE OF [place] CORONARY ARTERY W/O ANG PCTRS (6) NSTEMI (non-ST elevated myocardial infarction) Code(s): I21.4 - NON-ST ELEVATION (NSTEMI) MYOCARDIAL INFARCTION
--- NOTE | 2017-04-11 15:03 | PN ---
Progress Note (short form) - Note Progress Note: PT s/p R BKA Vital Signs Period Temp Pulse Resp BP Sys/Mcdaniel Pulse Ox Last 24 Hr 96.3 F-97.9 F 104-125 12-22 80-99/60-75 96-100 Right BKA site: knee immoblizer in place, dressing c/d/i with coban CBC, BMP 04/11/17 05:30 04/11/17 05:30 A/P: R BKA, POD#1 Pain management as needed Will continue dressing x2 two more day/knee immoblizer to help prevent flexion contracture
--- NOTE | 2017-04-11 15:22 | PN ---
Progress Note (short form) - Note Progress Note: Patient seen and examined in the ICU. Awake and responsive. Noted Rapid AFib. Hemodynamics stable. OBJECTIVE: Intake & Output 04/08/17 04/09/17 04/10/17 04/11/17 23:59 23:59 23:59 23:59 Intake Total 683 1676.2 2296.5 604 Output Total 600 800 450 125 Balance 83 876.2 1846.5 479 Weight 134 lb 4.184 oz 133 lb 2.547 oz 135 lb 2.294 oz 147 lb 0.773 oz Last Vital Signs Temp Pulse Resp BP Pulse Ox 97.0 F L 115 H 15 97/69 96 04/11/17 14:35 04/11/17 14:35 04/11/17 14:35 04/11/17 14:35 04/10/17 21:00 Active Medications Acetaminophen (Tylenol -) 650 mg PO Q6H PRN PRN Reason: FEVER Amino Acids (Prosource No Carb Liquid Pkt) 30 ml PO BID@0800,1730 [facility] Last Admin: 04/11/17 09:34 Dose: 30 ml Aspirin (Asa -) 81 mg PO DAILY [facility] Last Admin: 04/11/17 10:17 Dose: 81 mg Carvedilol (Coreg -) 3.125 mg PO BID [facility] Last Admin: 04/11/17 09:34 Dose: 3.125 mg Chlorhexidine Gluconate (Hibiclens For Decolonization -) 1 applic TP HS [facility] Last Admin: 04/10/17 21:58 Dose: 1 applic Clopidogrel Bisulfate (Plavix -) 75 mg PO DAILY [facility] Last Admin: 04/11/17 10:17 Dose: 75 mg Donepezil HCl (Aricept -) 10 mg PO DAILY [facility] Last Admin: 04/11/17 09:34 Dose: 10 mg Heparin Sodium (Porcine) (Heparin -) 5,000 unit SQ BID [facility] Last Admin: 04/11/17 10:17 Dose: 5,000 unit Dextrose (D5w -) 1,000 mls @ 42 mls/hr IV ASDIR [facility] Last Admin: 04/11/17 06:02 Dose: 42 mls/hr Ertapenem 1 gm/ Sodium (Chloride) 50 mls @ 50 mls/hr IVPB DAILY [facility] PRN Reason: Protocol Insulin Aspart (Novolog Vial Sliding Scale -) 1 vial SQ TIDAC [facility] PRN Reason: Protocol Last Admin: 04/11/17 11:01 Dose: Not Given Morphine Sulfate (Morphine Injection -) 1 mg IVPUSH Q3H PRN PRN Reason: PAIN Multivitamins/Minerals/Vitamin C (Tab-A-Vit -) 1 tab PO DAILY [facility] Mupirocin (Bactroban Ointment (For Decolonization) -) 1 applic NS BID [facility] Stop: 04/15/17 21:59 Last Admin: 04/11/17 09:42 Dose: 1 applic Tamsulosin HCl (Flomax -) 0.4 mg PO DAILY@1630 [facility] Gen: NAD at rest Heart: tachycardic, irregular Lung: decreased breath sounds at the bases Abd: soft, nontender Ext: necrotic feet Laboratory Results - last 24 hr 04/10/17 04/11/17 04/11/17 17:00 05:30 05:30 WBC 17.3 H RBC 3.51 L Hgb 9.1 L Hct 29.3 L MCV 83.4 MCH 25.9 MCHC 31.0 L RDW 19.5 H Plt Count 259 D MPV 8.6 Neutrophils % 87.9 H Lymphocytes % 6.4 L D Monocytes % 5.0 Eosinophils % 0.4 Basophils % 0.3 PT with INR 19.60 H INR 1.76 H Sodium 145 Potassium 3.8 Chloride 111 H Carbon Dioxide 26 Anion Gap 8 BUN 32 H Creatinine 1.2 Creat Clearance w eGFR 58.71 Random Glucose 83 D Calcium 8.2 L Phosphorus 2.9 Magnesium 1.8 Total Bilirubin 1.2 H AST 197 H D ALT 299 H D Alkaline Phosphatase 216 H D Total Protein 5.8 L Albumin 1.6 L ASSESSMENT AND PLAN: Gangrenous Feet UTI Severe Sepsis improving Lactic Acidosis resolving Acute Kidney Injury +Troponins likely Demand Ischemia Elevated LFTs likely ischemic injury Atrial Fibrillation with RVR LV Systolic Dysfunction DM PAD HTN Hyperlipidemia Dementia - ABX - Rate control - monitor urine output, creatinine - wound care - Transfusional support - rate control - Aspiration precautions - Telemetry monitoring Dr Qureshi Critical care time spent in reviewing chart, evaluating patient and formulating plan 35 min
--- NOTE | 2017-04-11 15:46 | PN ---
Progress Note, Physician Chief Complaint: Pt opens eyes briefly after repeated verbal queries; mumbles a few words; does not follow verbal queries. History of Present Illness: 77 y/o M (b. [place]), with a PMHx of Alzheimer's, severe systolic CHF, s/p NSTEMI 2017, HLD, NIDDM, and HTN, chronic foot ulcers and gangrene, presents to the ED via EMS from [facility] with change in mental status and foul smelling foot ulcers. Per OR records, patient has an elevated WBC. - Current Medication List Current Medications: Active Medications Acetaminophen (Tylenol -) 650 mg PO Q6H PRN PRN Reason: FEVER Amino Acids (Prosource No Carb Liquid Pkt) 30 ml PO BID@0800,1730 [facility] Last Admin: 04/11/17 09:34 Dose: 30 ml Aspirin (Asa -) 81 mg PO DAILY [facility] Last Admin: 04/11/17 10:17 Dose: 81 mg Carvedilol (Coreg -) 3.125 mg PO BID [facility] Last Admin: 04/11/17 09:34 Dose: 3.125 mg Chlorhexidine Gluconate (Hibiclens For Decolonization -) 1 applic TP HS [facility] Last Admin: 04/10/17 21:58 Dose: 1 applic Clopidogrel Bisulfate (Plavix -) 75 mg PO DAILY [facility] Last Admin: 04/11/17 10:17 Dose: 75 mg Donepezil HCl (Aricept -) 10 mg PO DAILY [facility] Last Admin: 04/11/17 09:34 Dose: 10 mg Heparin Sodium (Porcine) (Heparin -) 5,000 unit SQ BID [facility] Last Admin: 04/11/17 10:17 Dose: 5,000 unit Dextrose (D5w -) 1,000 mls @ 42 mls/hr IV ASDIR [facility] Last Admin: 04/11/17 06:02 Dose: 42 mls/hr Ertapenem 1 gm/ Sodium (Chloride) 50 mls @ 50 mls/hr IVPB DAILY [facility] PRN Reason: Protocol Insulin Aspart (Novolog Vial Sliding Scale -) 1 vial SQ TIDAC [facility] PRN Reason: Protocol Last Admin: 04/11/17 11:01 Dose: Not Given Morphine Sulfate (Morphine Injection -) 1 mg IVPUSH Q3H PRN PRN Reason: PAIN Multivitamins/Minerals/Vitamin C (Tab-A-Vit -) 1 tab PO DAILY [facility] Mupirocin (Bactroban Ointment (For Decolonization) -) 1 applic NS BID [facility] Stop: 04/15/17 21:59 Last Admin: 04/11/17 09:42 Dose: 1 applic Tamsulosin HCl (Flomax -) 0.4 mg PO DAILY@1630 [facility] - Objective Vital Signs: Vital Signs Temperature 97.0 F L 04/11/17 14:35 Pulse Rate 115 H 04/11/17 14:35 Respiratory Rate 15 04/11/17 14:35 Blood Pressure 97/69 04/11/17 14:35 O2 Sat by Pulse Oximetry (%) 96 04/10/17 21:00 Constitutional: Yes: Thin Eyes: Yes: WNL HENT: Yes: WNL Neck: Yes: WNL Cardiovascular: Yes: Tachycardia, Pulse Irregular, S1 (varies in intensity) Respiratory: Yes: Diminished Gastrointestinal: Yes: Soft Genitourinary: Yes: Anuria Musculoskeletal: Yes: Muscle Weakness Extremities: Yes: Cold Edema: No Peripheral Pulses WNL: No Peripheral Pulses: Left Doralis Pedis: 1+, Right Dorsalis Pedis: 0 Integumentary: Yes: Other (gangrenous right foot) Neurological: Yes: Other (dementia) Labs: CBC, BMP 04/11/17 05:30 04/11/17 05:30 INR, PTT INR 1.76 (0.82-1.09) H 04/10/17 17:00 - ....Imaging Chest X-ray: Image Reviewed (worsening CHF) Problem List - Problems (1) Atrial fibrillation with RVR Assessment/Plan: Off amiodarone. Restarted beta tamika-- low-dose carvedilol (3.125 mg bid); continue around-the -clock, unless significantly hypotensive or symptomatic. Code(s): I48.91 - UNSPECIFIED ATRIAL FIBRILLATION (2) Gangrene Assessment/Plan: Will require amputation of right foot today. Code(s): I96 - GANGRENE, NOT ELSEWHERE CLASSIFIED (3) Sepsis Assessment/Plan: antibiotics per ID. IV Fluids; watch weight, Is and Os, respiratory status carefully for volume overload (severe sytolic LV dysfunction). Code(s): A41.9 - SEPSIS, UNSPECIFIED ORGANISM (4) Acute on chronic systolic (congestive) heart failure Assessment/Plan: Pt is on beta blockers; overall benefit still likely, despite controversy when used with systolic CHF + AF; keep resting HR >90<110 bpm. Problematic using ACEI or spironolactone with present low BP. Code(s): I50.23 - ACUTE ON CHRONIC SYSTOLIC (CONGESTIVE) HEART FAILURE (5) Aortic stenosis Code(s): I35.0 - NONRHEUMATIC AORTIC (VALVE) STENOSIS (6) Dementia Code(s): F03.90 - UNSPECIFIED DEMENTIA WITHOUT BEHAVIORAL DISTURBANCE (7) Hyperlipidemia Code(s): E78.5 - HYPERLIPIDEMIA, UNSPECIFIED (8) HTN (hypertension) Code(s): I10 - ESSENTIAL (PRIMARY) HYPERTENSION (9) Normocytic anemia Code(s): D64.9 - ANEMIA, UNSPECIFIED (10) Elevated troponin Assessment/Plan: Hx NSTEMI. Code(s): R74.8 - ABNORMAL LEVELS OF OTHER SERUM ENZYMES (11) Elevated LFTs Code(s): R79.89 - OTHER SPECIFIED ABNORMAL FINDINGS OF BLOOD CHEMISTRY
--- NOTE | 2017-04-11 15:53 | PN ---
Progress Note, Physician Chief Complaint: Pt lying in bed; opens eyes infrequently; mumbles words. History of Present Illness: 77 y/o M (b. [place]), with a PMHx of Alzheimer's, severe systolic CHF, s/p NSTEMI 2017, HLD, NIDDM, and HTN, chronic foot ulcers and gangrene, presents to the ED via EMS from [facility] with change in mental status and foul smelling foot ulcers. Per [place] records, patient has an elevated WBC. - Current Medication List Current Medications: Active Medications Acetaminophen (Tylenol -) 650 mg PO Q6H PRN PRN Reason: FEVER Amino Acids (Prosource No Carb Liquid Pkt) 30 ml PO BID@0800,1730 [facility] Last Admin: 04/11/17 09:34 Dose: 30 ml Aspirin (Asa -) 81 mg PO DAILY [facility] Last Admin: 04/11/17 10:17 Dose: 81 mg Carvedilol (Coreg -) 3.125 mg PO BID [facility] Last Admin: 04/11/17 09:34 Dose: 3.125 mg Chlorhexidine Gluconate (Hibiclens For Decolonization -) 1 applic TP HS [facility] Last Admin: 04/10/17 21:58 Dose: 1 applic Clopidogrel Bisulfate (Plavix -) 75 mg PO DAILY [facility] Last Admin: 04/11/17 10:17 Dose: 75 mg Donepezil HCl (Aricept -) 10 mg PO DAILY [facility] Last Admin: 04/11/17 09:34 Dose: 10 mg Heparin Sodium (Porcine) (Heparin -) 5,000 unit SQ BID [facility] Last Admin: 04/11/17 10:17 Dose: 5,000 unit Dextrose (D5w -) 1,000 mls @ 42 mls/hr IV ASDIR [facility] Last Admin: 04/11/17 06:02 Dose: 42 mls/hr Ertapenem 1 gm/ Sodium (Chloride) 50 mls @ 50 mls/hr IVPB DAILY [facility] PRN Reason: Protocol Insulin Aspart (Novolog Vial Sliding Scale -) 1 vial SQ TIDAC [facility] PRN Reason: Protocol Last Admin: 04/11/17 11:01 Dose: Not Given Morphine Sulfate (Morphine Injection -) 1 mg IVPUSH Q3H PRN PRN Reason: PAIN Multivitamins/Minerals/Vitamin C (Tab-A-Vit -) 1 tab PO DAILY [facility] Mupirocin (Bactroban Ointment (For Decolonization) -) 1 applic NS BID [facility] Stop: 04/15/17 21:59 Last Admin: 04/11/17 09:42 Dose: 1 applic Tamsulosin HCl (Flomax -) 0.4 mg PO DAILY@1630 [facility] - Objective Vital Signs: Vital Signs Temperature 97.0 F L 04/11/17 14:35 Pulse Rate 115 H 04/11/17 14:35 Respiratory Rate 15 04/11/17 14:35 Blood Pressure 97/69 04/11/17 14:35 O2 Sat by Pulse Oximetry (%) 96 04/10/17 21:00 Constitutional: Yes: Thin Eyes: Yes: WNL Neck: Yes: WNL Cardiovascular: Yes: Tachycardia, Pulse Irregular Respiratory: Yes: Diminished, Rales Gastrointestinal: Yes: Soft Genitourinary: No: Anuria Musculoskeletal: Yes: Muscle Weakness Extremities: Yes: Cold Edema: No Peripheral Pulses WNL: No Integumentary: Yes: Other (right BKA Left LE wounds dressed, dry) Labs: CBC, BMP 04/11/17 05:30 04/11/17 05:30 INR, PTT INR 1.76 (0.82-1.09) H 04/10/17 17:00 Abnormal Lab Results 04/11/17 04/11/17 05:30 05:30 WBC 17.3 H RBC 3.51 L Hgb 9.1 L Hct 29.3 L MCHC 31.0 L RDW 19.5 H Neutrophils % 87.9 H Lymphocytes % 6.4 L D Chloride 111 H BUN 32 H Calcium 8.2 L Total Bilirubin 1.2 H AST 197 H D ALT 299 H D Alkaline Phosphatase 216 H D Total Protein 5.8 L Albumin 1.6 L - ....Imaging Chest X-ray: Image Reviewed Other: Image Reviewed (telemetry: AF with RVR) Problem List - Problems (1) Atrial fibrillation with RVR Assessment/Plan: Off amiodarone. Continue carvedilol. Pain management. Code(s): I48.91 - UNSPECIFIED ATRIAL FIBRILLATION (2) Gangrene Assessment/Plan: s/p BKA right foot POD #1. Code(s): I96 - GANGRENE, NOT ELSEWHERE CLASSIFIED (3) Sepsis Assessment/Plan: antibiotics per ID. IV Fluids; watch weight, Is and Os, respiratory status carefully for volume overload (severe sytolic LV dysfunction). Code(s): A41.9 - SEPSIS, UNSPECIFIED ORGANISM (4) Acute on chronic systolic (congestive) heart failure Assessment/Plan: Pt is on beta blockers; overall benefit still likely, despite controversy when used with systolic CHF + AF; keep resting HR >90<110 bpm. Problematic using ACEI or spironolactone with present low BP. Code(s): I50.23 - ACUTE ON CHRONIC SYSTOLIC (CONGESTIVE) HEART FAILURE (5) Aortic stenosis Code(s): I35.0 - NONRHEUMATIC AORTIC (VALVE) STENOSIS (6) Dementia Code(s): F03.90 - UNSPECIFIED DEMENTIA WITHOUT BEHAVIORAL DISTURBANCE Qualifiers: Dementia type: Alzheimer's disease Dementia behavioral disturbance: without behavioral disturbance (7) Hyperlipidemia Code(s): E78.5 - HYPERLIPIDEMIA, UNSPECIFIED (8) HTN (hypertension) Code(s): I10 - ESSENTIAL (PRIMARY) HYPERTENSION (9) Normocytic anemia Code(s): D64.9 - ANEMIA, UNSPECIFIED (10) Elevated troponin Assessment/Plan: Hx NSTEMI. Present elevation with demand ischemia, sepsis, acute CHF. Code(s): R74.8 - ABNORMAL LEVELS OF OTHER SERUM ENZYMES (11) Elevated LFTs Assessment/Plan: improving LFTS, though still elevated. Code(s): R79.89 - OTHER SPECIFIED ABNORMAL FINDINGS OF BLOOD CHEMISTRY (12) Hypoalbuminemia Code(s): E88.09 - OTH DISORDERS OF PLASMA-PROTEIN METABOLISM, NEC Assessment/Plan cc time spent: 40 minutes.
--- NOTE | 2017-04-11 16:23 | PN ---
Progress Note, Physician Chief Complaint: Pt. resting comfortably. Pain controlled. No anesthesia complaints. - Current Medication List Current Medications: Active Medications Acetaminophen (Tylenol -) 650 mg PO Q6H PRN PRN Reason: FEVER Amino Acids (Prosource No Carb Liquid Pkt) 30 ml PO BID@0800,1730 [facility] Last Admin: 04/11/17 09:34 Dose: 30 ml Aspirin (Asa -) 81 mg PO DAILY [facility] Last Admin: 04/11/17 10:17 Dose: 81 mg Carvedilol (Coreg -) 3.125 mg PO BID [facility] Last Admin: 04/11/17 09:34 Dose: 3.125 mg Chlorhexidine Gluconate (Hibiclens For Decolonization -) 1 applic TP HS [facility] Last Admin: 04/10/17 21:58 Dose: 1 applic Clopidogrel Bisulfate (Plavix -) 75 mg PO DAILY [facility] Last Admin: 04/11/17 10:17 Dose: 75 mg Donepezil HCl (Aricept -) 10 mg PO DAILY [facility] Last Admin: 04/11/17 09:34 Dose: 10 mg Heparin Sodium (Porcine) (Heparin -) 5,000 unit SQ BID [facility] Last Admin: 04/11/17 10:17 Dose: 5,000 unit Dextrose (D5w -) 1,000 mls @ 42 mls/hr IV ASDIR [facility] Last Admin: 04/11/17 06:02 Dose: 42 mls/hr Ertapenem 1 gm/ Sodium (Chloride) 50 mls @ 50 mls/hr IVPB DAILY [facility] PRN Reason: Protocol Insulin Aspart (Novolog Vial Sliding Scale -) 1 vial SQ TIDAC [facility] PRN Reason: Protocol Last Admin: 04/11/17 11:01 Dose: Not Given Morphine Sulfate (Morphine Injection -) 1 mg IVPUSH Q3H PRN PRN Reason: PAIN Multivitamins/Minerals/Vitamin C (Tab-A-Vit -) 1 tab PO DAILY [facility] Mupirocin (Bactroban Ointment (For Decolonization) -) 1 applic NS BID [facility] Stop: 04/15/17 21:59 Last Admin: 04/11/17 09:42 Dose: 1 applic Tamsulosin HCl (Flomax -) 0.4 mg PO DAILY@1630 [facility] - Objective Vital Signs: Vital Signs Temperature 97.0 F L 04/11/17 14:35 Pulse Rate 115 H 04/11/17 14:35 Respiratory Rate 15 04/11/17 14:35 Blood Pressure 97/69 04/11/17 14:35 O2 Sat by Pulse Oximetry (%) 96 04/10/17 21:00 Constitutional: Yes: Well Nourished, No Distress, Calm Neurological: Yes: WNL, Alert, Oriented Labs: CBC, BMP 04/11/17 05:30 04/11/17 05:30 INR, PTT INR 1.76 (0.82-1.09) H 04/10/17 17:00 Assessment/Plan POD#1 s/p right BKA under GA. Doing well. D/C from anesthesia care.
[2017-04-11] MEDS ORDERED: TAMSULOSIN HCL 0.4 MG CAP.ER.24H (FP) PO SCH (16:30)
[2017-04-11] MEDS: DEXTROSE 5%-WATER - 1,000 ML IV SCH (20:49)
[2017-04-11] MEDS: CARVEDILOL 3.125 MG TABLET (FP) PO SCH (21:59)
[2017-04-11] MEDS: HEPARIN NA (PORCINE) 5,000 UNITS/ML 1ML VIAL SQ SCH (21:59)
[2017-04-11] MEDS: morphine CARPU-JECT 2 MG/1 ML DISP.SYRIN IVPUSH PRN (22:17)
[2017-04-11] MEDS: CHLORHEXIDINE GLUCONATE 4% CLEANSER FOR DECOLONIZATION TP SCH (22:57)
[2017-04-12] MEDS: INSULIN SLIDING SCALE (NOVOLOG) 1 VIAL SQ SCH ×3 (06:16→18:00)
[2017-04-12] MEDS: morphine CARPU-JECT 2 MG/1 ML DISP.SYRIN IVPUSH PRN ×3 (06:49→23:46)
[2017-04-12 07:53] LABS: BASOPHIL 0.1 % (0-2.0); EOSINOPHIL 0.2 % (0-4.5); MCHC 31.5 g/dl (32.0-35.9); MEAN CELL VOLUME 82.6 fl (80-96); MEAN PLT VOLUME 8.7 fl (7.5-11.1); NEUTROPHILS 88.4 % (42.8-82.8); PLATELET COUNT 275 K/MM3 (134-434); RDW 19.8 % (11.9-15.9); WHITE BLOOD COUNT 15.8 K/mm3 (4.0-10.0)
[2017-04-12 08:17] LABS: ALBUMIN 1.4 g/dl (3.4-5.0); ANION GAP 9 (8-16); CALCIUM 7.8 mg/dL (8.5-10.1); CO2 25 mmol/L (21-32); GLUCOSE,RANDOM 128 mg/dL (74-106); MAGNESIUM 2.2 mg/dL (1.8-2.4); PHOSPHOROUS 2.9 mg/dL (2.5-4.9); SGOT/AST 104 U/L (15-37); SGPT/ALT 211 U/L (12-78); TOT PROT 5.6 g/dl (6.4-8.2)
[2017-04-12 08:18] LABS: ALK PHOS 179 U/L (45-117)
--- NOTE | 2017-04-12 09:35 | PN ---
Progress Note, Physician Chief Complaint: Coverage for Ed TELE: [id number] - Current Medication List Current Medications: Active Medications Acetaminophen (Tylenol -) 650 mg PO Q6H PRN PRN Reason: FEVER Amino Acids (Prosource No Carb Liquid Pkt) 30 ml PO BID@0800,1730 [facility] Aspirin (Asa -) 81 mg PO DAILY [facility] Carvedilol (Coreg -) 3.125 mg PO BID [facility] Last Admin: 04/11/17 21:59 Dose: 3.125 mg Chlorhexidine Gluconate (Hibiclens For Decolonization -) 1 applic TP HS [facility] Last Admin: 04/11/17 22:57 Dose: Not Given Clopidogrel Bisulfate (Plavix -) 75 mg PO DAILY [facility] Donepezil HCl (Aricept -) 10 mg PO DAILY [facility] Heparin Sodium (Porcine) (Heparin -) 5,000 unit SQ BID [facility] Last Admin: 04/11/17 21:59 Dose: 5,000 unit Dextrose (D5w -) 1,000 mls @ 42 mls/hr IV ASDIR [facility] Last Admin: 04/11/17 20:49 Dose: 42 mls/hr Ertapenem 1 gm/ Sodium (Chloride) 50 mls @ 100 mls/hr IVPB DAILY [facility] PRN Reason: Protocol Insulin Aspart (Novolog Vial Sliding Scale -) 1 vial SQ TIDAC [facility] PRN Reason: Protocol Last Admin: 04/12/17 06:16 Dose: Not Given Morphine Sulfate (Morphine Injection -) 1 mg IVPUSH Q3H PRN PRN Reason: PAIN Last Admin: 04/12/17 06:49 Dose: 1 mg Multivitamins/Minerals/Vitamin C (Tab-A-Vit -) 1 tab PO DAILY [facility] Mupirocin (Bactroban Ointment (For Decolonization) -) 1 applic NS BID [facility] Stop: 04/15/17 21:59 Last Admin: 04/11/17 22:56 Dose: Not Given Tamsulosin HCl (Flomax -) 0.4 mg PO DAILY@0830 [facility] - Objective Vital Signs: Vital Signs Temperature 97.5 F L 04/12/17 08:15 Pulse Rate 118 H 04/12/17 08:15 Respiratory Rate 16 04/12/17 08:15 Blood Pressure 96/70 04/12/17 08:15 O2 Sat by Pulse Oximetry (%) 95 04/11/17 21:00 Constitutional: Yes: No Distress Cardiovascular: Yes: Pulse Irregular Respiratory: Yes: CTA Bilaterally Gastrointestinal: Yes: Soft Neurological: Yes: Confusion Labs: CBC, BMP 04/12/17 05:30 04/12/17 05:30 INR, PTT INR 1.76 (0.82-1.09) H 04/10/17 17:00 Laboratory Tests 04/10/17 04/12/17 04/12/17 17:00 05:30 05:30 WBC 15.8 H Hct 30.6 L Plt Count 275 INR 1.76 H Potassium 3.5 Creatinine 1.0 AST 104 H D ALT 211 H D Alkaline Phosphatase 179 H - ....Imaging EKG: Image Reviewed Assessment/Plan Problem List - Problems (1) Atrial fibrillation with RVR Assessment/Plan: Off amiodarone. Continue carvedilol. Pain management. Code(s): I48.91 - UNSPECIFIED ATRIAL FIBRILLATION (2) Gangrene Assessment/Plan: s/p BKA right foot Code(s): I96 - GANGRENE, NOT ELSEWHERE CLASSIFIED (3) Sepsis Assessment/Plan: antibiotics per ID. IV Fluids; watch weight, Is and Os, respiratory status carefully for volume overload (severe sytolic LV dysfunction). Code(s): A41.9 - SEPSIS, UNSPECIFIED ORGANISM (4) Acute on chronic systolic (congestive) heart failure Assessment/Plan: Pt is on beta blockers; Problematic using ACEI or spironolactone with present low BP. Code(s): I50.23 - ACUTE ON CHRONIC SYSTOLIC (CONGESTIVE) HEART FAILURE (5) Aortic stenosis Code(s): I35.0 - NONRHEUMATIC AORTIC (VALVE) STENOSIS (6) Dementia Code(s): F03.90 - UNSPECIFIED DEMENTIA WITHOUT BEHAVIORAL DISTURBANCE Qualifiers: Dementia type: Alzheimer's disease Dementia behavioral disturbance: without behavioral disturbance (7) Hyperlipidemia Code(s): E78.5 - HYPERLIPIDEMIA, UNSPECIFIED (8) HTN (hypertension) Code(s): I10 - ESSENTIAL (PRIMARY) HYPERTENSION (9) Normocytic anemia Code(s): D64.9 - ANEMIA, UNSPECIFIED (10) Elevated troponin Assessment/Plan: Hx NSTEMI. Present elevation due to demand ischemia, sepsis, acute CHF. Code(s): R74.8 - ABNORMAL LEVELS OF OTHER SERUM ENZYMES (11) Elevated LFTs Assessment/Plan: improving LFTS, though still elevated. Code(s): R79.89 - OTHER SPECIFIED ABNORMAL FINDINGS OF BLOOD CHEMISTRY (12) Hypoalbuminemia Code(s): E88.09 - [facility] DISORDERS OF PLASMA-PROTEIN METABOLISM, NEC
--- NOTE | 2017-04-12 10:03 | PN ---
Progress Note, Physician History of Present Illness: Awake today Not conversant No acute distress Afebrile WBC improved - Current Medication List Current Medications: Active Medications Acetaminophen (Tylenol -) 650 mg PO Q6H PRN PRN Reason: FEVER Amino Acids (Prosource No Carb Liquid Pkt) 30 ml PO BID@0800,1730 [facility] Aspirin (Asa -) 81 mg PO DAILY [facility] Carvedilol (Coreg -) 3.125 mg PO BID [facility] Last Admin: 04/11/17 21:59 Dose: 3.125 mg Chlorhexidine Gluconate (Hibiclens For Decolonization -) 1 applic TP HS [facility] Last Admin: 04/11/17 22:57 Dose: Not Given Clopidogrel Bisulfate (Plavix -) 75 mg PO DAILY [facility] Donepezil HCl (Aricept -) 10 mg PO DAILY [facility] Heparin Sodium (Porcine) (Heparin -) 5,000 unit SQ BID [facility] Last Admin: 04/11/17 21:59 Dose: 5,000 unit Dextrose (D5w -) 1,000 mls @ 42 mls/hr IV ASDIR [facility] Last Admin: 04/11/17 20:49 Dose: 42 mls/hr Ertapenem 1 gm/ Sodium (Chloride) 50 mls @ 100 mls/hr IVPB DAILY [facility] PRN Reason: Protocol Insulin Aspart (Novolog Vial Sliding Scale -) 1 vial SQ TIDAC [facility] PRN Reason: Protocol Last Admin: 04/12/17 06:16 Dose: Not Given Morphine Sulfate (Morphine Injection -) 1 mg IVPUSH Q3H PRN PRN Reason: PAIN Last Admin: 04/12/17 06:49 Dose: 1 mg Multivitamins/Minerals/Vitamin C (Tab-A-Vit -) 1 tab PO DAILY [facility] Mupirocin (Bactroban Ointment (For Decolonization) -) 1 applic NS BID [facility] Stop: 04/15/17 21:59 Last Admin: 04/11/17 22:56 Dose: Not Given Tamsulosin HCl (Flomax -) 0.4 mg PO DAILY@0830 [facility] - Objective Vital Signs: Vital Signs Temperature 97.5 F L 04/12/17 08:15 Pulse Rate 118 H 04/12/17 08:15 Respiratory Rate 16 04/12/17 08:15 Blood Pressure 96/70 04/12/17 08:15 O2 Sat by Pulse Oximetry (%) 95 04/11/17 21:00 Constitutional: Yes: No Distress, Cachectic Eyes: Yes: Conjunctiva Clear Cardiovascular: Yes: Regular Rate and Rhythm, S1, S2 Respiratory: Yes: Diminished Gastrointestinal: Yes: Normal Bowel Sounds, Soft. No: Tenderness Extremities: Yes: Other (+ gangrene, L foot S/P R BKA) Labs: CBC, BMP 04/12/17 05:30 04/12/17 05:30 INR, PTT INR 1.76 (0.82-1.09) H 04/10/17 17:00 Assessment/Plan Sepsis secondary to foot source + Dry gangrene, feet POD #1 BKA UTI ESBL Elevated LFTs- improved Leukocytosis-improving Lactic acidosis Continue ertapenem Contact precautions
[2017-04-12] MEDS: MUPIROCIN 2% TOPICAL OINTMENT FOR DECOLONIZATION NS SCH ×2 (11:35→22:18)
[2017-04-12] MEDS: ERTAPENEM SODIUM 1 GM in SODIUM CHLORIDE 50 ML IVPB SCH (11:36)
[2017-04-12] MEDS: CLOPIDOGREL BISULFATE 75 MG TABLET (FP) PO SCH (11:37)
[2017-04-12] MEDS: MULTIVITAMINS (DAILY MVI) TABLET (FP) PO SCH (11:37)
[2017-04-12] MEDS: HEPARIN NA (PORCINE) 5,000 UNITS/ML 1ML VIAL SQ SCH ×2 (11:37→22:22)
[2017-04-12] MEDS: CARVEDILOL 3.125 MG TABLET (FP) PO SCH ×2 (11:37→22:22)
[2017-04-12] MEDS: AMINO ACIDS/PROTEIN HYDROLYS 30 ML LIQUID.PKT PO SCH ×2 (11:37→17:53)
[2017-04-12] MEDS: DONEPEZIL HCL 10 MG TABLET (FP) PO SCH (11:37)
[2017-04-12] MEDS: ASPIRIN 81 MG CHEWABLE TABLETS PO SCH (11:39)
[2017-04-12] MEDS: TAMSULOSIN HCL 0.4 MG CAP.ER.24H (FP) PO SCH (11:39)
--- NOTE | 2017-04-12 11:49 | PN ---
Progress Note (short form) - Note Progress Note: Pt seen/ examined . pod #2 chronic ill appearance weak afebrile Vital Signs Temp 97.5 F L 04/12/17 08:15 Pulse 118 H 04/12/17 08:15 Resp 16 04/12/17 08:15 BP 96/70 04/12/17 08:15 Pulse Ox 95 04/11/17 21:00 Intake & Output 04/11/17 04/11/17 04/12/17 11:59 23:59 11:59 Intake Total 604 436 294 Output Total 125 50 Balance 479 386 294 Weight 147 lb 0.773 oz Intake: IV 504 336 294 D5w - 1,000 ml @ 42 mls/ 504 336 294 hr IV ASDIR [facility] Rx#: [id number] IVPB 100 100 Output: Urine 125 50 [place] 125 50 Other: Voiding Method Indwelling Catheter Indwelling Catheter Bowel Movement No No Weight Measurement Method Built in [facility] Active Medications Acetaminophen (Tylenol -) 650 mg PO Q6H PRN PRN Reason: FEVER Amino Acids (Prosource No Carb Liquid Pkt) 30 ml PO BID@0800,1730 [facility] Aspirin (Asa -) 81 mg PO DAILY [facility] Carvedilol (Coreg -) 3.125 mg PO BID [facility] Last Admin: 04/11/17 21:59 Dose: 3.125 mg Chlorhexidine Gluconate (Hibiclens For Decolonization -) 1 applic TP HS [facility] Last Admin: 04/11/17 22:57 Dose: Not Given Clopidogrel Bisulfate (Plavix -) 75 mg PO DAILY [facility] Donepezil HCl (Aricept -) 10 mg PO DAILY [facility] Heparin Sodium (Porcine) (Heparin -) 5,000 unit SQ BID [facility] Last Admin: 04/11/17 21:59 Dose: 5,000 unit Dextrose (D5w -) 1,000 mls @ 42 mls/hr IV ASDIR [facility] Last Admin: 04/11/17 20:49 Dose: 42 mls/hr Ertapenem 1 gm/ Sodium (Chloride) 50 mls @ 100 mls/hr IVPB DAILY [facility] PRN Reason: Protocol Insulin Aspart (Novolog Vial Sliding Scale -) 1 vial SQ TIDAC [facility] PRN Reason: Protocol Last Admin: 04/12/17 06:16 Dose: Not Given Morphine Sulfate (Morphine Injection -) 1 mg IVPUSH Q3H PRN PRN Reason: PAIN Last Admin: 04/12/17 06:49 Dose: 1 mg Multivitamins/Minerals/Vitamin C (Tab-A-Vit -) 1 tab PO DAILY [facility] Mupirocin (Bactroban Ointment (For Decolonization) -) 1 applic NS BID [facility] Stop: 04/15/17 21:59 Last Admin: 04/11/17 22:56 Dose: Not Given Tamsulosin HCl (Flomax -) 0.4 mg PO DAILY@0830 [facility] CBC, BMP 04/12/17 05:30 04/12/17 05:30 INR, PTT INR 1.76 (0.82-1.09) H 04/10/17 17:00 Physical Examination Constitutional: Yes: No Distress, chronic ill appearance Cardiovascular: Yes: Irregular Respiratory: Yes: bilateral breath sounds- diminished at bases Gastrointestinal: Yes: Normal Bowel Sounds, Soft, Abdomen, Obese. No: Distention, Tenderness Edema: No Psychiatric: Yes: Alert, Oriented s/p r bka-- Assessment/Plan clinically looks better wbc trending down h/h stable overall condition poor abx restart coumadin ?- when cleared by cardiology/ surgery will follow
--- NOTE | 2017-04-12 11:52 | PN ---
Progress Note (short form) - Note Progress Note: Vascular surgery POD #2 for right bka. doing well afebrile. WBC coming down. Will change dressing on friday and can go to rehab. Devan bellamy DO
[2017-04-12] MEDS: ACETAMINOPHEN 325 MG TABLET (FP) PO PRN (13:00)
[2017-04-12] MEDS: DEXTROSE 5%-WATER - 1,000 ML IV SCH (17:52)
[2017-04-12] MEDS: CHLORHEXIDINE GLUCONATE 4% CLEANSER FOR DECOLONIZATION TP SCH (22:19)
[2017-04-13] MEDS: INSULIN SLIDING SCALE (NOVOLOG) 1 VIAL SQ SCH ×3 (06:05→17:20)
--- NOTE | 2017-04-13 07:01 | PN ---
Progress Note, Physician Chief Complaint: No acute distress History of Present Illness: TELE: AF around 100bpm - Current Medication List Current Medications: Active Medications Acetaminophen (Tylenol -) 650 mg PO Q6H PRN PRN Reason: FEVER Last Admin: 04/12/17 13:00 Dose: 650 mg Amino Acids (Prosource No Carb Liquid Pkt) 30 ml PO BID@0800,1730 [facility] Last Admin: 04/12/17 17:53 Dose: 30 ml Aspirin (Asa -) 81 mg PO DAILY [facility] Last Admin: 04/12/17 11:39 Dose: 81 mg Carvedilol (Coreg -) 3.125 mg PO BID [facility] Last Admin: 04/12/17 22:22 Dose: 3.125 mg Chlorhexidine Gluconate (Hibiclens For Decolonization -) 1 applic TP HS [facility] Last Admin: 04/12/17 22:19 Dose: Not Given Clopidogrel Bisulfate (Plavix -) 75 mg PO DAILY [facility] Last Admin: 04/12/17 11:37 Dose: 75 mg Donepezil HCl (Aricept -) 10 mg PO DAILY [facility] Last Admin: 04/12/17 11:37 Dose: 10 mg Heparin Sodium (Porcine) (Heparin -) 5,000 unit SQ BID [facility] Last Admin: 04/12/17 22:22 Dose: 5,000 unit Dextrose (D5w -) 1,000 mls @ 42 mls/hr IV ASDIR [facility] Last Admin: 04/12/17 17:52 Dose: 42 mls/hr Ertapenem 1 gm/ Sodium (Chloride) 50 mls @ 100 mls/hr IVPB DAILY [facility] PRN Reason: Protocol Last Admin: 04/12/17 11:36 Dose: 100 mls/hr Insulin Aspart (Novolog Vial Sliding Scale -) 1 vial SQ TIDAC [facility] PRN Reason: Protocol Last Admin: 04/13/17 06:05 Dose: Not Given Morphine Sulfate (Morphine Injection -) 1 mg IVPUSH Q3H PRN PRN Reason: PAIN Last Admin: 04/12/17 23:46 Dose: 1 mg Multivitamins/Minerals/Vitamin C (Tab-A-Vit -) 1 tab PO DAILY [facility] Last Admin: 04/12/17 11:37 Dose: 1 tab Mupirocin (Bactroban Ointment (For Decolonization) -) 1 applic NS BID [facility] Stop: 04/15/17 21:59 Last Admin: 04/12/17 22:18 Dose: Not Given Tamsulosin HCl (Flomax -) 0.4 mg PO DAILY@0830 [facility] Last Admin: 04/12/17 11:39 Dose: 0.4 mg - Objective Vital Signs: Vital Signs Temperature 97.8 F 04/13/17 06:00 Pulse Rate 112 H 04/13/17 06:00 Respiratory Rate 20 04/13/17 06:00 Blood Pressure 147/55 04/13/17 06:00 O2 Sat by Pulse Oximetry (%) 100 04/12/17 21:00 Constitutional: Yes: Calm Cardiovascular: Yes: Pulse Irregular Respiratory: Yes: CTA Bilaterally Gastrointestinal: Yes: Soft Edema: No Neurological: Yes: Alert Labs: INR, PTT INR 1.76 (0.82-1.09) H 04/10/17 17:00 Laboratory Tests 04/13/17 04/13/17 05:25 05:25 WBC 15.3 H Hgb 9.2 L Plt Count 271 Sodium 145 Potassium 4.2 Creat Clearance w eGFR > 60 - ....Imaging EKG: Image Reviewed Assessment/Plan Assessment/Plan Problem List - Problems (1) Atrial fibrillation with RVR Assessment/Plan: Off amiodarone. Continue carvedilol. Code(s): I48.91 - UNSPECIFIED ATRIAL FIBRILLATION (2) Gangrene Assessment/Plan: s/p BKA right foot Code(s): I96 - GANGRENE, NOT ELSEWHERE CLASSIFIED (3) Sepsis Assessment/Plan: antibiotics per ID. IV Fluids; watch weight, Is and Os, respiratory status carefully for volume overload (severe sytolic LV dysfunction). Code(s): A41.9 - SEPSIS, UNSPECIFIED ORGANISM (4) Acute on chronic systolic (congestive) heart failure Assessment/Plan: Pt is on beta blockers; Problematic using ACEI or spironolactone with present low BP. Code(s): I50.23 - ACUTE ON CHRONIC SYSTOLIC (CONGESTIVE) HEART FAILURE (5) Aortic stenosis Code(s): I35.0 - NONRHEUMATIC AORTIC (VALVE) STENOSIS (6) Dementia Code(s): F03.90 - UNSPECIFIED DEMENTIA WITHOUT BEHAVIORAL DISTURBANCE Qualifiers: Dementia type: Alzheimer's disease Dementia behavioral disturbance: without behavioral disturbance (7) Hyperlipidemia Code(s): E78.5 - HYPERLIPIDEMIA, UNSPECIFIED (8) HTN (hypertension) Code(s): I10 - ESSENTIAL (PRIMARY) HYPERTENSION (9) Normocytic anemia Code(s): D64.9 - ANEMIA, UNSPECIFIED (10) Elevated troponin Assessment/Plan: Hx NSTEMI. Present elevation due to demand ischemia, sepsis, acute CHF. Code(s): R74.8 - ABNORMAL LEVELS OF OTHER SERUM ENZYMES (11) Elevated LFTs Assessment/Plan: i Code(s): R79.89 - OTHER SPECIFIED ABNORMAL FINDINGS OF BLOOD CHEMISTRY (12) Hypoalbuminemia Code(s): E88.09 - OTH DISORDERS OF PLASMA-PROTEIN METABOLISM, [facility]iology for [facility]
[2017-04-13 07:09] LABS: EOSINOPHIL 0.5 % (0-4.5); MCH 26.4 pg (25.7-33.7); MCHC 31.4 g/dl (32.0-35.9); MEAN CELL VOLUME 84.1 fl (80-96); MEAN PLT VOLUME 8.6 fl (7.5-11.1); NEUTROPHILS 83.2 % (42.8-82.8); PLATELET COUNT 271 K/MM3 (134-434); RDW 19.9 % (11.9-15.9); WHITE BLOOD COUNT 15.3 K/mm3 (4.0-10.0)
[2017-04-13 07:39] LABS: ALBUMIN 1.5 g/dl (3.4-5.0); ANION GAP 9 (8-16); CO2 27 mmol/L (21-32); CREATININE 0.8 mg/dL (0.7-1.3); GLUCOSE,RANDOM 160 mg/dL (74-106); SGOT/AST 61 U/L (15-37); SGPT/ALT 169 U/L (12-78); TOT PROT 5.8 g/dl (6.4-8.2)
[2017-04-13 07:40] LABS: ALK PHOS 175 U/L (45-117)
[2017-04-13 07:47] LABS: INR 1.51 (0.82-1.09); PROTHROMBIN TIME (PATIENT) 16.7 SEC (9.98-11.88)
[2017-04-13] MEDS: morphine CARPU-JECT 2 MG/1 ML DISP.SYRIN IVPUSH PRN (08:11)
[2017-04-13] MEDS: AMINO ACIDS/PROTEIN HYDROLYS 30 ML LIQUID.PKT PO SCH (08:11)
[2017-04-13] MEDS: HEPARIN NA (PORCINE) 5,000 UNITS/ML 1ML VIAL SQ SCH ×2 (10:03→21:34)
[2017-04-13] MEDS: CARVEDILOL 3.125 MG TABLET (FP) PO SCH ×2 (10:04→21:34)
[2017-04-13] MEDS: CLOPIDOGREL BISULFATE 75 MG TABLET (FP) PO SCH (10:04)
[2017-04-13] MEDS: MULTIVITAMINS (DAILY MVI) TABLET (FP) PO SCH (10:04)
[2017-04-13] MEDS: DONEPEZIL HCL 10 MG TABLET (FP) PO SCH (10:04)
[2017-04-13] MEDS: TAMSULOSIN HCL 0.4 MG CAP.ER.24H (FP) PO SCH (10:04)
[2017-04-13] MEDS: ERTAPENEM SODIUM 1 GM in SODIUM CHLORIDE 50 ML IVPB SCH (10:04)
[2017-04-13] MEDS: ASPIRIN 81 MG CHEWABLE TABLETS PO SCH (10:04)
--- NOTE | 2017-04-13 14:55 | PN ---
Progress Note (short form) - Note Progress Note: Pt seen/ examined . pod #3 chronic ill appearance more awake today. comfortable Vital Signs Temp 98.7 F 04/13/17 08:00 Pulse 103 H 04/13/17 08:00 Resp 20 04/13/17 09:00 BP 103/54 04/13/17 08:00 Pulse Ox 95 04/13/17 09:00 Intake & Output 04/12/17 04/13/17 04/13/17 23:59 11:59 23:59 Intake Total 125 600 Output Total 500 Balance -375 600 Intake: IV 500 D5w - 1,000 ml @ 42 mls/ 500 hr IV ASDIR [facility] Rx#: [id number] Oral 125 100 Output: Urine 500 [place] 500 Other: Voiding Method Indwelling Catheter Indwelling Catheter Active Medications Acetaminophen (Tylenol -) 650 mg PO Q6H PRN PRN Reason: FEVER Last Admin: 04/12/17 13:00 Dose: 650 mg Amino Acids (Prosource No Carb Liquid Pkt) 30 ml PO BID@0800,1730 [facility] Last Admin: 04/13/17 08:11 Dose: 30 ml Aspirin (Asa -) 81 mg PO DAILY [facility] Last Admin: 04/13/17 10:04 Dose: 81 mg Carvedilol (Coreg -) 3.125 mg PO BID [facility] Last Admin: 04/13/17 10:04 Dose: 3.125 mg Chlorhexidine Gluconate (Hibiclens For Decolonization -) 1 applic TP HS [facility] Last Admin: 04/12/17 22:19 Dose: Not Given Clopidogrel Bisulfate (Plavix -) 75 mg PO DAILY [facility] Last Admin: 04/13/17 10:04 Dose: 75 mg Donepezil HCl (Aricept -) 10 mg PO DAILY [facility] Last Admin: 04/13/17 10:04 Dose: 10 mg Heparin Sodium (Porcine) (Heparin -) 5,000 unit SQ BID [facility] Last Admin: 04/13/17 10:03 Dose: 5,000 unit Dextrose (D5w -) 1,000 mls @ 42 mls/hr IV ASDIR [facility] Last Admin: 04/12/17 17:52 Dose: 42 mls/hr Ertapenem 1 gm/ Sodium (Chloride) 50 mls @ 100 mls/hr IVPB DAILY [facility] PRN Reason: Protocol Last Admin: 04/13/17 10:04 Dose: 100 mls/hr Insulin Aspart (Novolog Vial Sliding Scale -) 1 vial SQ TIDAC [facility] PRN Reason: Protocol Last Admin: 04/13/17 12:45 Dose: Not Given Morphine Sulfate (Morphine Injection -) 1 mg IVPUSH Q3H PRN PRN Reason: PAIN Last Admin: 04/13/17 08:11 Dose: 1 mg Multivitamins/Minerals/Vitamin C (Tab-A-Vit -) 1 tab PO DAILY [facility] Last Admin: 04/13/17 10:04 Dose: 1 tab Mupirocin (Bactroban Ointment (For Decolonization) -) 1 applic NS BID [facility] Stop: 04/15/17 21:59 Last Admin: 04/12/17 22:18 Dose: Not Given Tamsulosin HCl (Flomax -) 0.4 mg PO DAILY@0830 [facility] Last Admin: 04/13/17 10:04 Dose: 0.4 mg CBC, BMP 04/13/17 05:25 04/13/17 05:25 INR, PTT INR 1.51 (0.82-1.09) H 04/13/17 05:25 Physical Examination Constitutional: Yes: No Distress, chronic ill appearance. better today. Cardiovascular: Yes: Irregular Respiratory: Yes: bilateral breath sounds- diminished at bases. Gastrointestinal: Yes: Normal Bowel Sounds, Soft, Abdomen, Obese. No: Distention, Tenderness Edema: No Psychiatric: Yes: Alert, Oriented s/p r bka-- immobilizer in place Assessment/Plan clinically looks better wbc trending down h/h stable overall condition remains gaurded abx restart coumadin ?- when cleared by cardiology/ surgery will follow
[2017-04-13] MEDS ORDERED: morphine CARPU-JECT 4 MG/1 ML DISP.SYRIN ONE (15:49)
[2017-04-13] MEDS: morphine CARPU-JECT 4 MG/1 ML DISP.SYRIN IVPUSH PRN ×2 (16:02→22:53)
[2017-04-13] MEDS: DEXTROSE 5%-WATER - 1,000 ML IV SCH (21:10)
[2017-04-13] MEDS: MUPIROCIN 2% TOPICAL OINTMENT FOR DECOLONIZATION NS SCH (21:10)
[2017-04-13] MEDS: CHLORHEXIDINE GLUCONATE 4% CLEANSER FOR DECOLONIZATION TP SCH (21:11)
[2017-04-13] MEDS: ACETAMINOPHEN 325 MG TABLET (FP) PO PRN (21:34)
[2017-04-14] MEDS: INSULIN SLIDING SCALE (NOVOLOG) 1 VIAL SQ SCH ×3 (05:59→16:46)
[2017-04-14] MEDS: morphine CARPU-JECT 4 MG/1 ML DISP.SYRIN IVPUSH PRN (09:26)
[2017-04-14] MEDS: MUPIROCIN 2% TOPICAL OINTMENT FOR DECOLONIZATION NS SCH ×2 (09:32→21:38)
[2017-04-14] MEDS: AMINO ACIDS/PROTEIN HYDROLYS 30 ML LIQUID.PKT PO SCH ×2 (09:34→16:47)
[2017-04-14] MEDS: TAMSULOSIN HCL 0.4 MG CAP.ER.24H (FP) PO SCH (09:35)
[2017-04-14] MEDS: DONEPEZIL HCL 10 MG TABLET (FP) PO SCH (09:37)
[2017-04-14] MEDS: ASPIRIN 81 MG CHEWABLE TABLETS PO SCH (09:37)
[2017-04-14] MEDS: HEPARIN NA (PORCINE) 5,000 UNITS/ML 1ML VIAL SQ SCH ×2 (09:38→21:33)
[2017-04-14] MEDS: ERTAPENEM SODIUM 1 GM in SODIUM CHLORIDE 50 ML IVPB SCH (09:38)
[2017-04-14] MEDS: MULTIVITAMINS (DAILY MVI) TABLET (FP) PO SCH (09:39)
[2017-04-14] MEDS: CLOPIDOGREL BISULFATE 75 MG TABLET (FP) PO SCH (09:39)
[2017-04-14] MEDS: CARVEDILOL 3.125 MG TABLET (FP) PO SCH ×2 (09:54→21:33)
--- NOTE | 2017-04-14 10:35 | PATH ---
Surgical Pathology Report Patient Name: TEVIN GUARDADO [facility]. Rec. #: [id number] /Age/Gender: 1940 (Age: 77) / M Account: [id number] Location: 4 TELEMETRY U Taken: 04/10/2017 Received: 04/11/2017 Reported: 04/14/2017 Physicians: Devan Kothari Specimen(s) Received RIGHT LOWER LEG Clinical History Gangrene Final Diagnosis RIGHT LOWER LEG, BELOW KNEE AMPUTATION: SEVERE CALCIFIC ATHEROSCLEROSIS WITH EXTENSIVE GANGRENOUS NECROSIS OF TOES. NO DEFINITE OSTEOMYELITIS IDENTIFIED. SKIN AND SOFT TISSUE MARGIN APPEARS VIABLE. BONE MARROW FROM MARGIN IS FREE OF OSTEOMYELITIS. Electronically Signed Israel Mason M.D. Gross Description Received fresh labeled "right lower leg" is a right leg below knee amputation specimen consisting of a 23 x 9.5 x 9.5 cm foot attached to a 32 cm long by up to 20 cm in circumference portion of right lower leg. There is a 15 cm long portion of bone without covering soft tissue at the proximal portion of the specimen. The distal half of the foot is completely covered by eschar. Examination of the medial and anterior neurovascular bundles reveals areas of calcific atherosclerosis. The soft tissue at the foot is grossly necrotic. The bone of the toe this is firm but can be cut. [employer] sections are submitted as follows: 1 skin and soft tissue from margin; 2 bone marrow from margin for decalcification; 3 medial neurovascular bundle for decalcification; 4 anterior neurovascular bundle for decalcification; 5 bone from second and fourth toe for decalcification; 6 skin and soft tissue from foot. [facility]/04/11/2017 psychiatric/04/11/2017
--- NOTE | 2017-04-14 11:41 | PN ---
Progress Note (short form) - Note Progress Note: patient seen and examined today Awake and comfortable. RN reports - sometimes pulls i/vs - spits meds no distress pod #4 Vital Signs Temp 97 F L 04/14/17 10:00 Pulse 114 H 04/14/17 10:00 Resp 18 04/14/17 10:00 BP 126/58 04/14/17 10:00 Pulse Ox 98 04/14/17 09:00 Intake & Output 04/13/17 04/13/17 04/14/17 11:59 23:59 11:59 Intake Total 600 486 500 Output Total 600 350 Balance 600 -114 150 Weight 147 lb 4 oz Intake: IV 500 336 500 D5w - 1,000 ml @ 42 mls/ 500 336 500 hr IV ASDIR [facility] Rx#: [id number] IVPB 50 Oral 100 100 Output: Urine 600 350 [place] 600 350 Other: Voiding Method Indwelling Catheter Indwelling Catheter Indwelling Catheter Bowel Movement No No Active Medications Acetaminophen (Tylenol -) 650 mg PO Q6H PRN PRN Reason: FEVER Last Admin: 04/13/17 21:34 Dose: 650 mg Amino Acids (Prosource No Carb Liquid Pkt) 30 ml PO BID@0800,1730 [facility] Last Admin: 04/14/17 09:34 Dose: 30 ml Aspirin (Asa -) 81 mg PO DAILY [facility] Last Admin: 04/14/17 09:37 Dose: 81 mg Carvedilol (Coreg -) 3.125 mg PO BID [facility] Last Admin: 04/14/17 09:54 Dose: 3.125 mg Chlorhexidine Gluconate (Hibiclens For Decolonization -) 1 applic TP HS [facility] Last Admin: 04/13/17 21:11 Dose: Not Given Clopidogrel Bisulfate (Plavix -) 75 mg PO DAILY [facility] Last Admin: 04/14/17 09:39 Dose: 75 mg Donepezil HCl (Aricept -) 10 mg PO DAILY [facility] Last Admin: 04/14/17 09:37 Dose: 10 mg Heparin Sodium (Porcine) (Heparin -) 5,000 unit SQ BID [facility] Last Admin: 04/14/17 09:38 Dose: 5,000 unit Dextrose (D5w -) 1,000 mls @ 42 mls/hr IV ASDIR [facility] Last Admin: 04/13/17 21:10 Dose: Not Given Ertapenem 1 gm/ Sodium (Chloride) 50 mls @ 100 mls/hr IVPB DAILY [facility] PRN Reason: Protocol Last Admin: 04/14/17 09:38 Dose: 100 mls/hr Insulin Aspart (Novolog Vial Sliding Scale -) 1 vial SQ TIDAC [facility] PRN Reason: Protocol Last Admin: 04/14/17 05:59 Dose: Not Given Morphine Sulfate (Morphine Injection -) 1 mg IVPUSH Q3H PRN PRN Reason: PAIN Stop: 04/14/17 12:02 Last Admin: 04/14/17 09:26 Dose: 1 mg Multivitamins/Minerals/Vitamin C (Tab-A-Vit -) 1 tab PO DAILY [facility] Last Admin: 04/14/17 09:39 Dose: 1 tab Mupirocin (Bactroban Ointment (For Decolonization) -) 1 applic NS BID [facility] Stop: 04/15/17 21:59 Last Admin: 04/14/17 09:32 Dose: Not Given Tamsulosin HCl (Flomax -) 0.4 mg PO DAILY@0830 [facility] Last Admin: 04/14/17 09:35 Dose: 0.4 mg CBC, BMP 04/13/17 05:25 04/13/17 05:25 INR, PTT INR 1.51 (0.82-1.09) H 04/13/17 05:25 Physical Examination Constitutional: Yes: No Distress, chronic ill appearance. Cardiovascular: Yes: Irregular Respiratory: Yes: bilateral breath sounds- diminished at bases. Gastrointestinal: Yes: Normal Bowel Sounds, Soft, Abdomen, Obese. No: Distention, Tenderness Edema: No Psychiatric: Yes: Alert, Oriented s/p r bka-- immobilizer in place Assessment/Plan clinically stable wbc trending down h/h stable overall condition remains gaurded abx-- i/d on case restart coumadin ?-cardiology to follow. kathryns for safety. will follow.
--- NOTE | 2017-04-14 12:35 | PN ---
Progress Note (short form) - Note Progress Note: POD #4 Alert. Sitting in bed eating lunch with RN assist. No complaints. Last Vital Signs Temp Pulse Resp BP Pulse Ox 97 F L 114 H 18 126/58 98 04/14/17 10:00 04/14/17 10:00 04/14/17 10:00 04/14/17 10:00 04/14/17 09:00 CBC, BMP 04/13/17 05:25 04/13/17 05:25 Gen: nad RLE: manuela intact. BKA stump/flap viable. No vascular congestion. No hematoma. Problem List - Problems (1) Gangrene Assessment/Plan: pod #4 S/P RLE BKA dressing changed on rounds diet as tolerated ok for discharge to rehab no further surgical intervention above discussed with dr. bellamy and agrees. On behalf of Dr. Bellamy, thank you for the opportunity to participate in your patient's care. Code(s): I96 - GANGRENE, NOT ELSEWHERE CLASSIFIED
--- NOTE | 2017-04-14 17:19 | PN ---
Progress Note, Physician History of Present Illness: lethargic Afebrile WBC improved - Current Medication List Current Medications: Active Medications Acetaminophen (Tylenol -) 650 mg PO Q6H PRN PRN Reason: FEVER Last Admin: 04/13/17 21:34 Dose: 650 mg Amino Acids (Prosource No Carb Liquid Pkt) 30 ml PO BID@0800,1730 [facility] Last Admin: 04/14/17 16:47 Dose: 30 ml Aspirin (Asa -) 81 mg PO DAILY [facility] Last Admin: 04/14/17 09:37 Dose: 81 mg Carvedilol (Coreg -) 3.125 mg PO BID [facility] Last Admin: 04/14/17 09:54 Dose: 3.125 mg Chlorhexidine Gluconate (Hibiclens For Decolonization -) 1 applic TP HS [facility] Last Admin: 04/13/17 21:11 Dose: Not Given Clopidogrel Bisulfate (Plavix -) 75 mg PO DAILY [facility] Last Admin: 04/14/17 09:39 Dose: 75 mg Donepezil HCl (Aricept -) 10 mg PO DAILY [facility] Last Admin: 04/14/17 09:37 Dose: 10 mg Heparin Sodium (Porcine) (Heparin -) 5,000 unit SQ BID [facility] Last Admin: 04/14/17 09:38 Dose: 5,000 unit Dextrose (D5w -) 1,000 mls @ 42 mls/hr IV ASDIR [facility] Last Admin: 04/13/17 21:10 Dose: Not Given Ertapenem 1 gm/ Sodium (Chloride) 50 mls @ 100 mls/hr IVPB DAILY [facility] PRN Reason: Protocol Last Admin: 04/14/17 09:38 Dose: 100 mls/hr Insulin Aspart (Novolog Vial Sliding Scale -) 1 vial SQ TIDAC [facility] PRN Reason: Protocol Last Admin: 04/14/17 16:46 Dose: Not Given Multivitamins/Minerals/Vitamin C (Tab-A-Vit -) 1 tab PO DAILY [facility] Last Admin: 04/14/17 09:39 Dose: 1 tab Mupirocin (Bactroban Ointment (For Decolonization) -) 1 applic NS BID [facility] Stop: 04/15/17 21:59 Last Admin: 04/14/17 09:32 Dose: Not Given Tamsulosin HCl (Flomax -) 0.4 mg PO DAILY@0830 [facility] Last Admin: 04/14/17 09:35 Dose: Not Given - Objective Vital Signs: Vital Signs Temperature 97.2 F L 04/14/17 14:06 Pulse Rate 79 04/14/17 14:06 Respiratory Rate 18 04/14/17 14:06 Blood Pressure 94/58 04/14/17 14:06 O2 Sat by Pulse Oximetry (%) 98 04/14/17 09:00 Constitutional: Yes: No Distress Cardiovascular: Yes: Regular Rate and Rhythm, S1, S2 Respiratory: Yes: Diminished Gastrointestinal: Yes: Normal Bowel Sounds, Soft Labs: CBC, BMP 04/13/17 05:25 04/13/17 05:25 INR, PTT INR 1.51 (0.82-1.09) H 04/13/17 05:25 Assessment/Plan Sepsis secondary to foot source + Dry gangrene, feet Post op BKA UTI ESBL Elevated LFTs- improved Leukocytosis-improving Lactic acidosis Continue ertapenem Contact precautions
[2017-04-14] MEDS: WARFARIN NA 5 MG TABLET (UD) PO SCH (18:02)
[2017-04-14] MEDS: DEXTROSE 5%-WATER - 1,000 ML IV SCH (18:49)
[2017-04-14] MEDS: morphine CARPU-JECT 2 MG/1 ML DISP.SYRIN IVPUSH PRN (18:53)
[2017-04-14] MEDS: CHLORHEXIDINE GLUCONATE 4% CLEANSER FOR DECOLONIZATION TP SCH (21:39)
[2017-04-15] MEDS: morphine CARPU-JECT 2 MG/1 ML DISP.SYRIN IVPUSH PRN ×5 (00:23→22:11)
[2017-04-15 06:28] LABS: INR 1.41 (0.82-1.09); PROTHROMBIN TIME (PATIENT) 15.6 SEC (9.98-11.88)
[2017-04-15] MEDS: INSULIN SLIDING SCALE (NOVOLOG) 1 VIAL SQ SCH ×3 (06:33→16:59)
[2017-04-15 06:49] LABS: BASOPHIL 0.1 % (0-2.0); EOSINOPHIL 0.3 % (0-4.5); MCHC 30.6 g/dl (32.0-35.9); MEAN CELL VOLUME 84.9 fl (80-96); PLATELET COUNT 259 K/MM3 (134-434); WHITE BLOOD COUNT 14.5 K/mm3 (4.0-10.0)
[2017-04-15 06:50] LABS: ALBUMIN 1.5 g/dl (3.4-5.0); ALK PHOS 146 U/L (45-117); ANION GAP 9 (8-16); BILIRUBIN,TOTAL 0.5 mg/dL (0.2-1.0); CALCIUM 8.4 mg/dL (8.5-10.1); CO2 25 mmol/L (21-32); CREATININE 0.9 mg/dL (0.7-1.3); GLUCOSE,RANDOM 159 mg/dL (74-106); SGOT/AST 36 U/L (15-37); SGPT/ALT 115 U/L (12-78); TOT PROT 6.1 g/dl (6.4-8.2)
--- NOTE | 2017-04-15 08:43 | PN ---
Progress Note (short form) - Note Progress Note: patient seen and examined today Awake and comfortable No distress Poor historian Started on Coumadin Vital Signs Temp 98.8 F 04/15/17 06:00 Pulse 116 H 04/15/17 06:00 Resp 19 04/15/17 06:00 BP 102/68 04/15/17 06:00 Pulse Ox 97 04/14/17 21:00 Intake & Output 04/14/17 04/14/17 04/15/17 11:59 23:59 11:59 Intake Total 500 656 462 Output Total 350 200 Balance 150 656 262 Weight 147 lb 4 oz 146 lb 12.8 oz Intake: IV 500 336 462 D5w - 1,000 ml @ 42 mls/ 500 336 462 hr IV ASDIR [facility] Rx#: [id number] IVPB 50 Oral 270 Output: Urine 350 200 [place] 350 200 Other: Voiding Method Indwelling Catheter Indwelling Catheter Indwelling Catheter Bowel Movement No No No Weight Measurement Method Patient Lift Scale Active Medications Acetaminophen (Tylenol -) 650 mg PO Q6H PRN PRN Reason: FEVER Last Admin: 04/13/17 21:34 Dose: 650 mg Amino Acids (Prosource No Carb Liquid Pkt) 30 ml PO BID@0800,1730 [facility] Last Admin: 04/14/17 16:47 Dose: 30 ml Carvedilol (Coreg -) 3.125 mg PO BID [facility] Last Admin: 04/14/17 21:33 Dose: 3.125 mg Chlorhexidine Gluconate (Hibiclens For Decolonization -) 1 applic TP HS [facility] Last Admin: 04/14/17 21:39 Dose: Not Given Clopidogrel Bisulfate (Plavix -) 75 mg PO DAILY [facility] Last Admin: 04/14/17 09:39 Dose: 75 mg Donepezil HCl (Aricept -) 10 mg PO DAILY [facility] Last Admin: 04/14/17 09:37 Dose: 10 mg Dextrose (D5w -) 1,000 mls @ 42 mls/hr IV ASDIR [facility] Last Admin: 04/14/17 18:49 Dose: Not Given Ertapenem 1 gm/ Sodium (Chloride) 50 mls @ 100 mls/hr IVPB DAILY [facility] PRN Reason: Protocol Last Admin: 04/14/17 09:38 Dose: 100 mls/hr Insulin Aspart (Novolog Vial Sliding Scale -) 1 vial SQ TIDAC [facility] PRN Reason: Protocol Last Admin: 04/15/17 06:33 Dose: 2 units Morphine Sulfate (Morphine Injection -) 1 mg IVPUSH Q3H PRN PRN Reason: PAIN Last Admin: 04/15/17 05:25 Dose: 1 mg Multivitamins/Minerals/Vitamin C (Tab-A-Vit -) 1 tab PO DAILY [facility] Last Admin: 04/14/17 09:39 Dose: 1 tab Mupirocin (Bactroban Ointment (For Decolonization) -) 1 applic NS BID [facility] Stop: 04/15/17 21:59 Last Admin: 04/14/17 21:38 Dose: Not Given Tamsulosin HCl (Flomax -) 0.4 mg PO DAILY@0830 [facility] Last Admin: 04/14/17 09:35 Dose: Not Given Warfarin Sodium (Coumadin -) 5 mg PO DAILY@1800 [facility] Last Admin: 04/14/17 18:02 Dose: 5 mg CBC, BMP 04/15/17 06:00 04/15/17 06:00 Physical Examination Constitutional: Yes: No Distress, chronic ill appearance. Cardiovascular: Yes: Irregular Respiratory: Yes: bilateral breath sounds- diminished at bases. Gastrointestinal: Yes: Normal Bowel Sounds, Soft, Abdomen, Obese. No: Distention, Tenderness Edema: No Psychiatric: Yes: Alert, Oriented s/p r bka-- immobilizer in place Assessment/Plan clinically stable wbc trending down h/h stable overall condition remains gaurded abx-- i/d on case restarted coumadin discontinue heparin and aspirin Continue Plavix for now--need cardiology input Cardiology to follow mittens for safety. will follow. discussed with nursing staff
[2017-04-15] MEDS: AMINO ACIDS/PROTEIN HYDROLYS 30 ML LIQUID.PKT PO SCH ×3 (09:13→18:30)
[2017-04-15] MEDS: MUPIROCIN 2% TOPICAL OINTMENT FOR DECOLONIZATION NS SCH ×2 (09:13→20:10)
[2017-04-15] MEDS: DONEPEZIL HCL 10 MG TABLET (FP) PO SCH (09:14)
[2017-04-15] MEDS: TAMSULOSIN HCL 0.4 MG CAP.ER.24H (FP) PO SCH (09:14)
[2017-04-15] MEDS: ASPIRIN 81 MG CHEWABLE TABLETS PO SCH (09:14)
[2017-04-15] MEDS: MULTIVITAMINS (DAILY MVI) TABLET (FP) PO SCH (09:15)
[2017-04-15] MEDS: ERTAPENEM SODIUM 1 GM in SODIUM CHLORIDE 50 ML IVPB SCH (09:15)
[2017-04-15] MEDS: CARVEDILOL 3.125 MG TABLET (FP) PO SCH ×2 (09:15→22:10)
[2017-04-15] MEDS: HEPARIN NA (PORCINE) 5,000 UNITS/ML 1ML VIAL SQ SCH (09:15)
[2017-04-15 10:23] LABS: ANISOCYTOSIS 2+; MICROCYTOSIS 1+
--- NOTE | 2017-04-15 11:42 | PN ---
Progress Note, Physician Chief Complaint: Pt lying in bed; speaking, but nonsensically; does not follow commands. History of Present Illness: 77 y/o M (b. [place]), with a PMHx of Alzheimer's, severe systolic CHF, s/p NSTEMI 2017, HLD, NIDDM, and HTN, chronic foot ulcers and gangrene, presents to the ED via EMS from [facility] with change in mental status and foul smelling foot ulcers. Per [place] records, patient has an elevated WBC. - Current Medication List Current Medications: Active Medications Acetaminophen (Tylenol -) 650 mg PO Q6H PRN PRN Reason: FEVER Last Admin: 04/13/17 21:34 Dose: 650 mg Amino Acids (Prosource No Carb Liquid Pkt) 30 ml PO BID@0800,1730 [facility] Last Admin: 04/15/17 09:14 Dose: 30 ml Carvedilol (Coreg -) 3.125 mg PO BID [facility] Last Admin: 04/15/17 09:15 Dose: 3.125 mg Chlorhexidine Gluconate (Hibiclens For Decolonization -) 1 applic TP HS [facility] Last Admin: 04/14/17 21:39 Dose: Not Given Clopidogrel Bisulfate (Plavix -) 75 mg PO DAILY [facility] Last Admin: 04/14/17 09:39 Dose: 75 mg Donepezil HCl (Aricept -) 10 mg PO DAILY [facility] Last Admin: 04/15/17 09:14 Dose: 10 mg Dextrose (D5w -) 1,000 mls @ 42 mls/hr IV ASDIR [facility] Last Admin: 04/14/17 18:49 Dose: Not Given Ertapenem 1 gm/ Sodium (Chloride) 50 mls @ 100 mls/hr IVPB DAILY [facility] PRN Reason: Protocol Last Admin: 04/15/17 09:15 Dose: 100 mls/hr Insulin Aspart (Novolog Vial Sliding Scale -) 1 vial SQ TIDAC [facility] PRN Reason: Protocol Last Admin: 04/15/17 06:33 Dose: 2 units Morphine Sulfate (Morphine Injection -) 1 mg IVPUSH Q3H PRN PRN Reason: PAIN Last Admin: 04/15/17 09:17 Dose: 1 mg Multivitamins/Minerals/Vitamin C (Tab-A-Vit -) 1 tab PO DAILY [facility] Last Admin: 04/15/17 09:15 Dose: 1 tab Mupirocin (Bactroban Ointment (For Decolonization) -) 1 applic NS BID [facility] Stop: 04/15/17 21:59 Last Admin: 04/15/17 09:13 Dose: Not Given Tamsulosin HCl (Flomax -) 0.4 mg PO DAILY@0830 [facility] Last Admin: 04/15/17 09:14 Dose: Not Given Warfarin Sodium (Coumadin -) 5 mg PO DAILY@1800 [facility] Last Admin: 04/14/17 18:02 Dose: 5 mg - Objective Vital Signs: Vital Signs Temperature 97.8 F 04/15/17 09:34 Pulse Rate 112 H 04/15/17 09:34 Respiratory Rate 18 04/15/17 09:34 Blood Pressure 100/64 04/15/17 09:34 O2 Sat by Pulse Oximetry (%) 99 04/15/17 09:00 Constitutional: Yes: Anxious Eyes: Yes: WNL HENT: Yes: WNL Neck: Yes: WNL Cardiovascular: Yes: Tachycardia, Pulse Irregular Respiratory: Yes: Regular Gastrointestinal: Yes: Soft Genitourinary: Yes: Anuria Breast(s): Yes: WNL Musculoskeletal: Yes: Muscle Weakness Extremities: Yes: Cold Edema: No Peripheral Pulses WNL: No Integumentary: Yes: Other (s/p right foot amputation; left foot dressed ( gangrene of toes)) Neurological: Yes: Confusion, Weakness Psychiatric: Yes: Other (dementia) Labs: CBC, BMP 04/15/17 06:00 04/15/17 06:00 INR, PTT INR 1.41 (0.82-1.09) H 04/15/17 06:00 - ....Imaging Other: Image Reviewed (telemetry: AF; periods of RVR) Problem List - Problems (1) Atrial fibrillation with RVR Assessment/Plan: Off amiodarone. Continue carvedilol. Now on warfarin; IV heparin or sc Lovenox until INR 2-3. May continue clopidogrel (hx recent NSTEMI) if no bleeding. Pain management. Code(s): I48.91 - UNSPECIFIED ATRIAL FIBRILLATION (2) Gangrene Assessment/Plan: s/p BKA right foot. Left foot gangrene of toes. Code(s): I96 - GANGRENE, NOT ELSEWHERE CLASSIFIED (3) Sepsis Assessment/Plan: antibiotics per ID. IV Fluids; watch weight, Is and Os, respiratory status carefully for volume overload (severe sytolic LV dysfunction). Code(s): A41.9 - SEPSIS, UNSPECIFIED ORGANISM (4) Acute on chronic systolic (congestive) heart failure Assessment/Plan: Pt is on beta blockers; overall benefit still likely, despite controversy when used with systolic CHF + AF; keep resting HR >90<110 bpm. Problematic using ACEI or spironolactone with present low BP. Code(s): I50.23 - ACUTE ON CHRONIC SYSTOLIC (CONGESTIVE) HEART FAILURE (5) Aortic stenosis Code(s): I35.0 - NONRHEUMATIC AORTIC (VALVE) STENOSIS (6) Dementia Code(s): F03.90 - UNSPECIFIED DEMENTIA WITHOUT BEHAVIORAL DISTURBANCE Qualifiers: Dementia type: Alzheimer's disease Dementia behavioral disturbance: without behavioral disturbance (7) Hyperlipidemia Code(s): E78.5 - HYPERLIPIDEMIA, UNSPECIFIED (8) HTN (hypertension) Assessment/Plan: medications held (except carveddilol) due to periods of borderline hypotension. Code(s): I10 - ESSENTIAL (PRIMARY) HYPERTENSION (9) Normocytic anemia Code(s): D64.9 - ANEMIA, UNSPECIFIED (10) Elevated troponin Assessment/Plan: Hx NSTEMI earlier this year. Present elevation with demand ischemia, sepsis, acute CHF. Code(s): R74.8 - ABNORMAL LEVELS OF OTHER SERUM ENZYMES (11) Elevated LFTs Assessment/Plan: improving LFTS, though ALT still elevated. Code(s): R79.89 - OTHER SPECIFIED ABNORMAL FINDINGS OF BLOOD CHEMISTRY (12) Hypoalbuminemia Code(s): E88.09 - OTH DISORDERS OF PLASMA-PROTEIN METABOLISM, NEC
[2017-04-15] MEDS: CLOPIDOGREL BISULFATE 75 MG TABLET (FP) PO SCH (12:54)
[2017-04-15 14:05] LABS: ANION GAP 9 (8-16); CALCIUM 8.5 mg/dL (8.5-10.1); CO2 26 mmol/L (21-32); CREATININE 0.7 mg/dL (0.7-1.3); GLUCOSE,RANDOM 83 mg/dL (74-106)
[2017-04-15] MEDS: DEXTROSE 5%-WATER - 1,000 ML IV SCH ×2 (16:00→18:34)
[2017-04-15] MEDS: WARFARIN NA 5 MG TABLET (UD) PO SCH (18:30)
[2017-04-15] MEDS: CHLORHEXIDINE GLUCONATE 4% CLEANSER FOR DECOLONIZATION TP SCH (22:11)
[2017-04-16] MEDS: morphine CARPU-JECT 2 MG/1 ML DISP.SYRIN IVPUSH PRN ×4 (04:41→16:18)
[2017-04-16] MEDS: INSULIN SLIDING SCALE (NOVOLOG) 1 VIAL SQ SCH ×3 (06:42→17:45)
[2017-04-16] MEDS: MULTIVITAMINS (DAILY MVI) TABLET (FP) PO SCH (09:29)
[2017-04-16] MEDS: CLOPIDOGREL BISULFATE 75 MG TABLET (FP) PO SCH (09:29)
[2017-04-16] MEDS: TAMSULOSIN HCL 0.4 MG CAP.ER.24H (FP) PO SCH (09:29)
[2017-04-16] MEDS: CARVEDILOL 3.125 MG TABLET (FP) PO SCH ×2 (09:29→21:43)
[2017-04-16] MEDS: ERTAPENEM SODIUM 1 GM in SODIUM CHLORIDE 50 ML IVPB SCH (09:29)
[2017-04-16] MEDS: AMINO ACIDS/PROTEIN HYDROLYS 30 ML LIQUID.PKT PO SCH ×2 (09:29→17:42)
[2017-04-16] MEDS: DONEPEZIL HCL 10 MG TABLET (FP) PO SCH (09:29)
--- NOTE | 2017-04-16 09:40 | PN ---
Progress Note, Physician Chief Complaint: spits out food and meds - Current Medication List Current Medications: Active Medications Acetaminophen (Tylenol -) 650 mg PO Q6H PRN PRN Reason: FEVER Last Admin: 04/13/17 21:34 Dose: 650 mg Amino Acids (Prosource No Carb Liquid Pkt) 30 ml PO BID@0800,1730 [facility] Last Admin: 04/15/17 18:30 Dose: 30 ml Carvedilol (Coreg -) 3.125 mg PO BID [facility] Last Admin: 04/15/17 22:10 Dose: 3.125 mg Chlorhexidine Gluconate (Hibiclens For Decolonization -) 1 applic TP HS [facility] Last Admin: 04/15/17 22:11 Dose: Not Given Clopidogrel Bisulfate (Plavix -) 75 mg PO DAILY [facility] Last Admin: 04/15/17 12:54 Dose: 75 mg Donepezil HCl (Aricept -) 10 mg PO DAILY [facility] Last Admin: 04/15/17 09:14 Dose: 10 mg Dextrose (D5w -) 1,000 mls @ 42 mls/hr IV ASDIR [facility] Last Admin: 04/15/17 18:34 Dose: Not Given Ertapenem 1 gm/ Sodium (Chloride) 50 mls @ 100 mls/hr IVPB DAILY [facility] PRN Reason: Protocol Last Admin: 04/15/17 09:15 Dose: 100 mls/hr Insulin Aspart (Novolog Vial Sliding Scale -) 1 vial SQ TIDAC [facility] PRN Reason: Protocol Last Admin: 04/16/17 06:42 Dose: Not Given Morphine Sulfate (Morphine Injection -) 1 mg IVPUSH Q3H PRN PRN Reason: PAIN Last Admin: 04/16/17 04:41 Dose: 1 mg Multivitamins/Minerals/Vitamin C (Tab-A-Vit -) 1 tab PO DAILY [facility] Last Admin: 04/15/17 09:15 Dose: 1 tab Tamsulosin HCl (Flomax -) 0.4 mg PO DAILY@0830 [facility] Last Admin: 04/15/17 09:14 Dose: Not Given Warfarin Sodium (Coumadin -) 5 mg PO DAILY@1800 [facility] Last Admin: 04/15/17 18:30 Dose: 5 mg - Objective Vital Signs: Vital Signs Temperature 98.0 F 04/16/17 08:30 Pulse Rate 118 H 04/16/17 08:30 Respiratory Rate 18 10/04/17 08:30 Blood Pressure 110/57 04/16/17 08:30 O2 Sat by Pulse Oximetry (%) 99 04/15/17 21:00 Constitutional: Yes: No Distress Cardiovascular: Yes: Pulse Irregular Respiratory: Yes: Diminished Gastrointestinal: Yes: Normal Bowel Sounds, Soft. No: Tenderness Extremities: Yes: Other (rt leg bka) Edema: No Labs: CBC, BMP 04/15/17 06:00 04/15/17 13:00 INR, PTT INR 1.41 (0.82-1.09) H 04/15/17 06:00 Problem List - Problems (1) Atrial fibrillation with RVR Code(s): I48.91 - UNSPECIFIED ATRIAL FIBRILLATION (2) Gangrene Code(s): I96 - GANGRENE, NOT ELSEWHERE CLASSIFIED (3) Sepsis Code(s): A41.9 - SEPSIS, UNSPECIFIED ORGANISM (4) NICHOLAS (acute kidney injury) Code(s): N17.9 - ACUTE KIDNEY FAILURE, UNSPECIFIED (5) CAD (coronary artery disease) Code(s): I25.10 - ATHSCL HEART DISEASE OF [place] CORONARY ARTERY W/O ANG PCTRS (6) NSTEMI (non-ST elevated myocardial infarction) Code(s): I21.4 - NON-ST ELEVATION (NSTEMI) MYOCARDIAL INFARCTION Assessment/Plan PLAN Sepsis -- cultures blood negative, urine culture positive -- iv antibiotics -- ID eval noted -- will need left BKA- family not consenting this time per Vascular Afib with RVR -- pt had recent Echo in December-- severe systolic dysfunction --on Coumadin NSTEMI -- likely due to sepsis -- on Coumadin and plavix DVT prophylaxis -- on coumadin on wrist restraints as he is pulling out iv lines
[2017-04-16] MEDS ORDERED: oxyCODONE HCL 5 MG TABLET PO PRN (10:11)
--- NOTE | 2017-04-16 10:45 | PN ---
Progress Note (short form) - Note Progress Note: Pt dressing changed today, he was medicated with IV pain meds prior changing the dressing. Vital Signs Period Temp Pulse Resp BP Sys/Mcdaniel Pulse Ox Last 24 Hr 97.5 F-98.9 F 96-120 18-20 93-119/53-74 99 GEN: Alert and appears comfortable Right BKA site: c/d/i with manuela. No erythema or drainage noted from the wound. No swelling. reapplied xeroform, 4x4 coban and knee immoblizer. Applied 4x4 gauze to incision site and over the knee/under the knee. Flap viable. Left BKA: foul odor with some drainage, eschar to heel and lateral foot extending to mid calf(anteriorly/lateral) great toe dry eschar, tender to touch. Heel with boggines. CBC, BMP 04/15/17 06:00 04/15/17 13:00 A/P: 77 yo male s/p R BKA, healing well Continue local wound care to Right leg Ordered left leg wound care with dry dressing/kerlix S/w Dr. Kothari, recommending Left BKA but at this time, the family isn't giving consent for the procedure
--- NOTE | 2017-04-16 13:10 | PN ---
Progress Note, Physician History of Present Illness: Awake No complaints - Current Medication List Current Medications: Active Medications Acetaminophen (Tylenol -) 650 mg PO Q6H PRN PRN Reason: FEVER Last Admin: 04/13/17 21:34 Dose: 650 mg Amino Acids (Prosource No Carb Liquid Pkt) 30 ml PO BID@0800,1730 [facility] Last Admin: 04/16/17 09:29 Dose: 30 ml Carvedilol (Coreg -) 3.125 mg PO BID [facility] Last Admin: 04/16/17 09:29 Dose: 3.125 mg Chlorhexidine Gluconate (Hibiclens For Decolonization -) 1 applic TP HS [facility] Last Admin: 04/15/17 22:11 Dose: Not Given Clopidogrel Bisulfate (Plavix -) 75 mg PO DAILY [facility] Last Admin: 04/16/17 09:29 Dose: 75 mg Donepezil HCl (Aricept -) 10 mg PO DAILY [facility] Last Admin: 04/16/17 09:29 Dose: 10 mg Dextrose (D5w -) 1,000 mls @ 42 mls/hr IV ASDIR [facility] Last Admin: 04/15/17 18:34 Dose: Not Given Ertapenem 1 gm/ Sodium (Chloride) 50 mls @ 100 mls/hr IVPB DAILY [facility] PRN Reason: Protocol Last Admin: 04/16/17 09:29 Dose: 100 mls/hr Insulin Aspart (Novolog Vial Sliding Scale -) 1 vial SQ TIDAC [facility] PRN Reason: Protocol Last Admin: 04/16/17 11:25 Dose: Not Given Morphine Sulfate (Morphine Injection -) 2 mg IVPUSH Q3H PRN PRN Reason: PAIN Last Admin: 04/16/17 10:15 Dose: 2 mg Multivitamins/Minerals/Vitamin C (Tab-A-Vit -) 1 tab PO DAILY [facility] Last Admin: 04/16/17 09:29 Dose: 1 tab Oxycodone HCl (Roxicodone -) 10 mg PO Q4H PRN PRN Reason: PAIN Tamsulosin HCl (Flomax -) 0.4 mg PO DAILY@0830 [facility] Last Admin: 04/16/17 09:29 Dose: 0.4 mg Warfarin Sodium (Coumadin -) 5 mg PO DAILY@1800 [facility] Last Admin: 04/15/17 18:30 Dose: 5 mg - Objective Vital Signs: Vital Signs Temperature 98.0 F 04/16/17 08:30 Pulse Rate 118 H 04/16/17 08:30 Respiratory Rate 18 04/16/17 08:30 Blood Pressure 110/57 04/16/17 08:30 O2 Sat by Pulse Oximetry (%) 99 04/15/17 21:00 Constitutional: Yes: No Distress, Cachectic Eyes: Yes: Conjunctiva Clear Cardiovascular: Yes: Regular Rate and Rhythm, S1, S2 Respiratory: Yes: CTA Bilaterally Gastrointestinal: Yes: Normal Bowel Sounds, Soft. No: Tenderness Extremities: Yes: Other (S/P BKA Gangrene L foot) Labs: CBC, BMP 04/15/17 06:00 04/15/17 13:00 INR, PTT INR 1.41 (0.82-1.09) H 04/15/17 06:00 Assessment/Plan Sepsis secondary to foot source + Dry gangrene, feet Post op BKA UTI ESBL Elevated LFTs- improved Leukocytosis-improving Lactic acidosis Continue ertapenem x24h Contact precautions
[2017-04-16] MEDS: WARFARIN NA 5 MG TABLET (UD) PO SCH (17:42)
[2017-04-16] MEDS: DEXTROSE 5%-WATER - 1,000 ML IV SCH (17:46)
[2017-04-16] MEDS: CHLORHEXIDINE GLUCONATE 4% CLEANSER FOR DECOLONIZATION TP SCH (22:46)
[2017-04-17] MEDS: morphine CARPU-JECT 2 MG/1 ML DISP.SYRIN IVPUSH PRN (01:07)
[2017-04-17] MEDS: INSULIN SLIDING SCALE (NOVOLOG) 1 VIAL SQ SCH ×3 (06:14→17:49)
--- NOTE | 2017-04-17 06:52 | OP ---
DATE OF OPERATION: 04/10/2017 PREOPERATIVE DIAGNOSIS: Right foot gangrene. POSTOPERATIVE DIAGNOSIS: Right foot gangrene. PROCEDURE PERFORMED: Right below-knee amputation. SURGEON: Devan Newberry DO ANESTHESIA: General. ESTIMATED BLOOD LOSS: 100 mL. INDICATIONS: The patient is a 77-year-old male who comes from the residential with right foot gangrene, where his foot was cold and was necrotic. The patient was septic, with a white count of 20,000. It was decided that he would need a right below-knee amputation. The patient had a palpable right popliteal pulse, thus confirming that if he got a right below-knee amputation, his flap would heal well. The patient's family consented for the procedure, understanding all risks, benefits and alternatives. DESCRIPTION OF PROCEDURE: The patient was brought into the operating room. Once in the operating room, the patient was laid on the operating table in the supine manner. The area of the right lower extremity was prepped and draped in a sterile surgical manner. We then went ahead and used a skin marker and went 4 fingerbreadths below the right tibial tuberosity and jhoana a step-off incision. We then went ahead and used a number 15 blade and cut along that step-off incision. Bovie electrocautery was used to control hemostasis. We were able to take the Bovie cautery down to the tibia and the fibula. We were able to first take down all the muscles and the muscular attachments in the anterior compartment. We then were able to isolate the anterior tibial artery and the anterior tibial vein. The artery and the vein were clamped and suture ligated using 0 silk. We then went to the lateral compartment, where we were able to find the posterior tibial artery. The posterior tibial artery was clamped and suture ligated using 0 silk, posterior tibial artery and vein. At this point, using electrocautery, we isolated and cleaned off the fibula. We were able to take all the muscular attachments, including the gastrocnemius posteriorly. We were able to dissect deeper in the lateral compartment, and we were able to get down to the peroneal artery and vein, and those were clamped and suture ligated using 0 silk. We then used a saw, and we were able to transect the tibia and fibula, and the leg was sent off to Pathology. Our flap looked very viable. Bovie electrocautery was used to control hemostasis. Bone wax was placed on the tibia. We then were able to use our saw and bevel the bone on the tibia so that it does not irritate and rub up against the flap. We then went ahead and irrigated the wound copiously. We used 2-0 Vicryl, and the subcutaneous tissue was approximated in interrupted manner. The skin was then closed with skin manuela. The area was wet and dried. Xeroform, 4 x 4's, Tegaderm and Coban were placed. The leg was placed in a knee immobilizer. The patient tolerated the procedure with no complications. Total blood loss was 100 mL. The patient was transferred to the PACU in stable condition. DEVAN NEWBERRY DO NP/[id number]
[2017-04-17 08:30] LABS: INR 1.52 (0.82-1.09); PROTHROMBIN TIME (PATIENT) 16.9 SEC (9.98-11.88)
[2017-04-17] MEDS: AMINO ACIDS/PROTEIN HYDROLYS 30 ML LIQUID.PKT PO SCH ×2 (10:00→17:10)
[2017-04-17] MEDS: DONEPEZIL HCL 10 MG TABLET (FP) PO SCH (10:01)
[2017-04-17] MEDS: TAMSULOSIN HCL 0.4 MG CAP.ER.24H (FP) PO SCH (10:01)
[2017-04-17] MEDS: CARVEDILOL 3.125 MG TABLET (FP) PO SCH ×2 (10:02→21:55)
[2017-04-17] MEDS: CLOPIDOGREL BISULFATE 75 MG TABLET (FP) PO SCH (10:02)
[2017-04-17] MEDS: MULTIVITAMINS (DAILY MVI) TABLET (FP) PO SCH (10:02)
[2017-04-17] MEDS: ERTAPENEM SODIUM 1 GM in SODIUM CHLORIDE 50 ML IVPB SCH (10:06)
[2017-04-17] MEDS ORDERED: morphine CARPU-JECT 2 MG/1 ML DISP.SYRIN IVPUSH PRN (11:40)
--- NOTE | 2017-04-17 11:43 | PN ---
Progress Note, Physician Chief Complaint: sleepy today received Morphine and oxycodone for pain pt is refusing to eat has pain in left foot Family does not wish to do any surgery for left foot - Current Medication List Current Medications: Active Medications Acetaminophen (Tylenol -) 650 mg PO Q6H PRN PRN Reason: FEVER Last Admin: 04/13/17 21:34 Dose: 650 mg Amino Acids (Prosource No Carb Liquid Pkt) 30 ml PO BID@0800,1730 [facility] Last Admin: 04/17/17 10:00 Dose: Not Given Carvedilol (Coreg -) 3.125 mg PO BID [facility] Last Admin: 04/17/17 10:02 Dose: Not Given Clopidogrel Bisulfate (Plavix -) 75 mg PO DAILY [facility] Last Admin: 04/17/17 10:02 Dose: Not Given Donepezil HCl (Aricept -) 10 mg PO DAILY [facility] Last Admin: 04/17/17 10:01 Dose: Not Given Dextrose (D5w -) 1,000 mls @ 42 mls/hr IV ASDIR [facility] Last Admin: 04/16/17 17:46 Dose: 42 mls/hr Ertapenem 1 gm/ Sodium (Chloride) 50 mls @ 100 mls/hr IVPB DAILY [facility] PRN Reason: Protocol Last Admin: 04/17/17 10:06 Dose: 100 mls/hr Insulin Aspart (Novolog Vial Sliding Scale -) 1 vial SQ TIDAC [facility] PRN Reason: Protocol Last Admin: 04/17/17 06:14 Dose: Not Given Morphine Sulfate (Morphine Injection -) 2 mg IVPUSH Q3H PRN PRN Reason: PAIN Last Admin: 04/17/17 01:07 Dose: 2 mg Multivitamins/Minerals/Vitamin C (Tab-A-Vit -) 1 tab PO DAILY [facility] Last Admin: 04/17/17 10:02 Dose: Not Given Oxycodone HCl (Roxicodone -) 10 mg PO Q4H PRN PRN Reason: PAIN Last Admin: 04/16/17 21:43 Dose: 10 mg Tamsulosin HCl (Flomax -) 0.4 mg PO DAILY@0830 [facility] Last Admin: 04/17/17 10:01 Dose: Not Given Warfarin Sodium (Coumadin -) 5 mg PO DAILY@1800 [facility] Last Admin: 04/16/17 17:42 Dose: 5 mg - Objective Vital Signs: Vital Signs Temperature 98.1 F 04/17/17 07:24 Pulse Rate 118 H 04/17/17 07:24 Respiratory Rate 20 04/17/17 07:24 Blood Pressure 96/58 04/17/17 07:24 O2 Sat by Pulse Oximetry (%) 99 04/17/17 10:57 Constitutional: Yes: Anxious Cardiovascular: Yes: Pulse Irregular Respiratory: Yes: Diminished Gastrointestinal: Yes: Abdomen, Obese. No: Tenderness Extremities: Yes: Other (rt BKA, left foot dressing in place-- foul smell++) Edema: No Labs: CBC, BMP 04/15/17 06:00 04/15/17 13:00 INR, PTT INR 1.52 (0.82-1.09) H 04/17/17 07:45 Problem List - Problems (1) Atrial fibrillation with RVR Code(s): I48.91 - UNSPECIFIED ATRIAL FIBRILLATION (2) Gangrene Code(s): I96 - GANGRENE, NOT ELSEWHERE CLASSIFIED (3) Sepsis Code(s): A41.9 - SEPSIS, UNSPECIFIED ORGANISM (4) NICHOLAS (acute kidney injury) Code(s): N17.9 - ACUTE KIDNEY FAILURE, UNSPECIFIED (5) CAD (coronary artery disease) Code(s): I25.10 - ATHSCL HEART DISEASE OF [place] CORONARY ARTERY W/O ANG PCTRS (6) NSTEMI (non-ST elevated myocardial infarction) Code(s): I21.4 - NON-ST ELEVATION (NSTEMI) MYOCARDIAL INFARCTION Assessment/Plan PLAN Sepsis -- cultures blood negative, urine culture positive -- iv antibiotics-- dc today per ID -- spoke with ID -- will need left BKA- family not consenting this time per Vascular Afib with RVR -- pt had recent Echo in December-- severe systolic dysfunction --on Coumadin -- rate control NSTEMI -- likely due to sepsis -- on Coumadin and plavix DVT prophylaxis -- on coumadin dc wrist restraints palliative care eval-- need to know goals of care in this case risk of pt being septic again is high as his left foot has gangrene but family does not wish for any surgery at this time If family has not decided, then dc plan for [place]
--- NOTE | 2017-04-17 13:02 | PN ---
Progress Note, Physician History of Present Illness: Awake No complaints Afebrile - Current Medication List Current Medications: Active Medications Acetaminophen (Tylenol -) 650 mg PO Q6H PRN PRN Reason: FEVER Last Admin: 04/13/17 21:34 Dose: 650 mg Amino Acids (Prosource No Carb Liquid Pkt) 30 ml PO BID@0800,1730 [facility] Last Admin: 04/17/17 10:00 Dose: Not Given Carvedilol (Coreg -) 3.125 mg PO BID [facility] Last Admin: 04/17/17 10:02 Dose: Not Given Clopidogrel Bisulfate (Plavix -) 75 mg PO DAILY [facility] Last Admin: 04/17/17 10:02 Dose: Not Given Donepezil HCl (Aricept -) 10 mg PO DAILY [facility] Last Admin: 04/17/17 10:01 Dose: Not Given Dextrose (D5w -) 1,000 mls @ 42 mls/hr IV ASDIR [facility] Last Admin: 04/16/17 17:46 Dose: 42 mls/hr Ertapenem 1 gm/ Sodium (Chloride) 50 mls @ 100 mls/hr IVPB DAILY [facility] PRN Reason: Protocol Last Admin: 04/17/17 10:06 Dose: 100 mls/hr Insulin Aspart (Novolog Vial Sliding Scale -) 1 vial SQ TIDAC [facility] PRN Reason: Protocol Last Admin: 04/17/17 12:31 Dose: Not Given Morphine Sulfate (Morphine Injection -) 1 mg IVPUSH Q3H PRN PRN Reason: PAIN Multivitamins/Minerals/Vitamin C (Tab-A-Vit -) 1 tab PO DAILY [facility] Last Admin: 04/17/17 10:02 Dose: Not Given Oxycodone HCl (Roxicodone -) 10 mg PO Q4H PRN PRN Reason: PAIN Last Admin: 04/16/17 21:43 Dose: 10 mg Tamsulosin HCl (Flomax -) 0.4 mg PO DAILY@0830 [facility] Last Admin: 04/17/17 10:01 Dose: Not Given Warfarin Sodium (Coumadin -) 5 mg PO DAILY@1800 [facility] Last Admin: 04/16/17 17:42 Dose: 5 mg - Objective Vital Signs: Vital Signs Temperature 98.1 F 04/17/17 07:24 Pulse Rate 118 H 04/17/17 07:24 Respiratory Rate 20 04/17/17 07:24 Blood Pressure 96/58 04/17/17 07:24 O2 Sat by Pulse Oximetry (%) 99 04/17/17 10:57 Constitutional: Yes: No Distress, Cachectic Cardiovascular: Yes: Regular Rate and Rhythm, S1, S2 Respiratory: Yes: CTA Bilaterally Gastrointestinal: Yes: Normal Bowel Sounds, Soft. No: Tenderness Extremities: Yes: Other (gangrene L foot) Labs: CBC, BMP 04/15/17 06:00 04/15/17 13:00 INR, PTT INR 1.52 (0.82-1.09) H 04/17/17 07:45 Assessment/Plan Sepsis secondary to foot source + Dry gangrene, feet Post op BKA UTI ESBL Elevated LFTs- improved Leukocytosis-improving Lactic acidosis- resolved Discontinue ertapenem observe off antibiotics Contact precautions
[2017-04-17] MEDS ORDERED: FENTANYL PATCH WASTE MC PRN (15:26)
[2017-04-17] MEDS: DEXTROSE 5%-WATER - 1,000 ML IV SCH (17:09)
[2017-04-17] MEDS: fentaNYL 12mcg/hr PATCH.TD72 TD SCH (17:50)
[2017-04-17] MEDS: WARFARIN NA 5 MG TABLET (UD) PO SCH (17:50)
[2017-04-17] MEDS: morphine CARPU-JECT 4 MG/1 ML DISP.SYRIN IVPB PRN (21:54)
--- NOTE | 2017-04-17 22:39 | PN ---
Progress Note, Physician Chief Complaint: Pt lying in bed; lethargic. History of Present Illness: 77 y/o man (b. [place]), with a PMHx of Alzheimer's, severe systolic CHF, s/p NSTEMI 2017, HLD, NIDDM, and HTN, chronic foot ulcers and gangrene, presents to the ED via EMS from [facility] with change in mental status and foul smelling foot ulcers. Per [place] records, patient has an elevated WBC. - Current Medication List Current Medications: Active Medications Acetaminophen (Tylenol -) 650 mg PO Q6H PRN PRN Reason: FEVER Last Admin: 04/13/17 21:34 Dose: 650 mg Amino Acids (Prosource No Carb Liquid Pkt) 30 ml PO BID@0800,1730 [facility] Last Admin: 04/17/17 17:10 Dose: Not Given Carvedilol (Coreg -) 3.125 mg PO BID [facility] Last Admin: 04/17/17 21:55 Dose: 3.125 mg Clopidogrel Bisulfate (Plavix -) 75 mg PO DAILY [facility] Last Admin: 04/17/17 10:02 Dose: Not Given Donepezil HCl (Aricept -) 10 mg PO DAILY [facility] Last Admin: 04/17/17 10:01 Dose: Not Given Fentanyl (Duragesic 12mcg Patch -) 1 patch TD Q72H [facility] Last Admin: 04/17/17 17:50 Dose: 1 patch Dextrose (D5w -) 1,000 mls @ 42 mls/hr IV ASDIR [facility] Last Admin: 04/17/17 17:09 Dose: 42 mls/hr Insulin Aspart (Novolog Vial Sliding Scale -) 1 vial SQ TIDAC [facility] PRN Reason: Protocol Last Admin: 04/17/17 17:49 Dose: Not Given Miscellaneous (Duragesic Patch Waste) 1 each MC PRN PRN PRN Reason: PAIN Morphine Sulfate (Morphine Injection -) 1 mg IVPB Q3H PRN Last Admin: 04/17/17 21:54 Dose: 1 mg Multivitamins/Minerals/Vitamin C (Tab-A-Vit -) 1 tab PO DAILY [facility] Last Admin: 04/17/17 10:02 Dose: Not Given Oxycodone HCl (Roxicodone -) 10 mg PO Q4H PRN PRN Reason: PAIN Last Admin: 04/16/17 21:43 Dose: 10 mg Tamsulosin HCl (Flomax -) 0.4 mg PO DAILY@0830 [facility] Last Admin: 04/17/17 10:01 Dose: Not Given Warfarin Sodium (Coumadin -) 5 mg PO DAILY@1800 [facility] Last Admin: 04/17/17 17:50 Dose: Not Given - Objective Vital Signs: Vital Signs Temperature 97.3 F L 04/17/17 16:50 Pulse Rate 116 H 04/17/17 16:50 Respiratory Rate 20 04/17/17 16:50 Blood Pressure 116/59 04/17/17 16:50 O2 Sat by Pulse Oximetry (%) 99 04/17/17 10:57 Constitutional: Yes: Thin, Other (does not speak presently; appears anxious) Eyes: Yes: WNL HENT: Yes: WNL Neck: Yes: WNL Cardiovascular: Yes: Tachycardia, Pulse Irregular Respiratory: Yes: Regular Gastrointestinal: Yes: Soft Genitourinary: No: Anuria Musculoskeletal: Yes: Muscle Weakness Extremities: Yes: Cold Edema: Yes Edema: LLE: Trace Peripheral Pulses WNL: No Peripheral Pulses: Left Doralis Pedis: 1+, Right Dorsalis Pedis: 0 (s/p foot amputation), Left Femoral: 1+, Right Femoral: 1+ Integumentary: Yes: Pressure Ulcer, Other (ganrenous left foot) Neurological: Yes: Confusion, Weakness Psychiatric: Yes: Other (dementia) Labs: CBC, BMP 04/15/17 06:00 04/15/17 13:00 INR, PTT INR 1.52 (0.82-1.09) H 04/17/17 07:45 Abnormal Lab Results 04/18/17 07:00 PT with INR 17.30 H INR 1.56 H Problem List - Problems (1) Atrial fibrillation with RVR Assessment/Plan: Continue carvedilol. Now on warfarin; IV heparin or sc Lovenox until INR 2-3. May continue clopidogrel (hx recent NSTEMI) if no bleeding. Pain management. Code(s): I48.91 - UNSPECIFIED ATRIAL FIBRILLATION (2) Gangrene Assessment/Plan: s/p BKA right foot. Left foot gangrene of toes; ? need for amputation Code(s): I96 - GANGRENE, NOT ELSEWHERE CLASSIFIED (3) Sepsis Assessment/Plan: off antibiotics. Leukocytosis; afebrile. gangrenous left foot. IV Fluids; watch weight, Is and Os, respiratory status carefully for volume overload (severe sytolic LV dysfunction). Code(s): A41.9 - SEPSIS, UNSPECIFIED ORGANISM (4) Acute on chronic systolic (congestive) heart failure Assessment/Plan: Pt is on beta blockers; overall benefit still likely, despite controversy when used with systolic CHF + AF; keep resting HR >90<110 bpm. Problematic using ACEI or spironolactone with present low BP. Code(s): I50.23 - ACUTE ON CHRONIC SYSTOLIC (CONGESTIVE) HEART FAILURE (5) Aortic stenosis Code(s): I35.0 - NONRHEUMATIC AORTIC (VALVE) STENOSIS (6) Dementia Code(s): F03.90 - UNSPECIFIED DEMENTIA WITHOUT BEHAVIORAL DISTURBANCE (7) Hyperlipidemia Code(s): E78.5 - HYPERLIPIDEMIA, UNSPECIFIED (8) HTN (hypertension) Assessment/Plan: medications held (except carvedilol) due to periods of borderline hypotension. Code(s): I10 - ESSENTIAL (PRIMARY) HYPERTENSION (9) Normocytic anemia Code(s): D64.9 - ANEMIA, UNSPECIFIED (10) Elevated troponin Assessment/Plan: Hx NSTEMI earlier this year. Present elevation with demand ischemia, sepsis, acute CHF. Code(s): R74.8 - ABNORMAL LEVELS OF OTHER SERUM ENZYMES (11) Elevated LFTs Assessment/Plan: improving LFTS, though ALT still elevated. Code(s): R79.89 - OTHER SPECIFIED ABNORMAL FINDINGS OF BLOOD CHEMISTRY (12) Hypoalbuminemia Assessment/Plan: deconditioned state; sepsis; poor nutrition. Code(s): E88.09 - OTH DISORDERS OF PLASMA-PROTEIN METABOLISM, NEC
[2017-04-18] MEDS: morphine CARPU-JECT 4 MG/1 ML DISP.SYRIN IVPB PRN ×2 (07:00→15:07)
[2017-04-18] MEDS: INSULIN SLIDING SCALE (NOVOLOG) 1 VIAL SQ SCH ×3 (07:02→18:23)
[2017-04-18] MEDS: DEXTROSE 5%-WATER - 1,000 ML IV SCH ×2 (07:36→18:24)
[2017-04-18 08:01] LABS: INR 1.56 (0.82-1.09); PROTHROMBIN TIME (PATIENT) 17.3 SEC (9.98-11.88)
[2017-04-18] MEDS: MULTIVITAMINS (DAILY MVI) TABLET (FP) PO SCH (10:52)
[2017-04-18] MEDS: TAMSULOSIN HCL 0.4 MG CAP.ER.24H (FP) PO SCH (10:52)
[2017-04-18] MEDS: AMINO ACIDS/PROTEIN HYDROLYS 30 ML LIQUID.PKT PO SCH ×2 (10:52→18:26)
[2017-04-18] MEDS: DONEPEZIL HCL 10 MG TABLET (FP) PO SCH (10:52)
[2017-04-18] MEDS: CARVEDILOL 3.125 MG TABLET (FP) PO SCH ×2 (10:52→21:36)
[2017-04-18] MEDS: CLOPIDOGREL BISULFATE 75 MG TABLET (FP) PO SCH (10:52)
--- NOTE | 2017-04-18 11:57 | PN ---
Progress Note, Physician Chief Complaint: not eating weak has pain in left foot - Current Medication List Current Medications: Active Medications Acetaminophen (Tylenol -) 650 mg PO Q6H PRN PRN Reason: FEVER Last Admin: 04/13/17 21:34 Dose: 650 mg Amino Acids (Prosource No Carb Liquid Pkt) 30 ml PO BID@0800,1730 [facility] Last Admin: 04/18/17 10:52 Dose: 30 ml Carvedilol (Coreg -) 3.125 mg PO BID [facility] Last Admin: 04/18/17 10:52 Dose: Not Given Clopidogrel Bisulfate (Plavix -) 75 mg PO DAILY [facility] Last Admin: 04/18/17 10:52 Dose: 75 mg Donepezil HCl (Aricept -) 10 mg PO DAILY [facility] Last Admin: 04/18/17 10:52 Dose: 10 mg Fentanyl (Duragesic 12mcg Patch -) 1 patch TD Q72H [facility] Last Admin: 04/17/17 17:50 Dose: 1 patch Dextrose (D5w -) 1,000 mls @ 42 mls/hr IV ASDIR [facility] Last Admin: 04/18/17 07:36 Dose: Not Given Insulin Aspart (Novolog Vial Sliding Scale -) 1 vial SQ TIDAC [facility] PRN Reason: Protocol Last Admin: 04/18/17 11:42 Dose: Not Given Miscellaneous (Duragesic Patch Waste) 1 each MC PRN PRN PRN Reason: PAIN Morphine Sulfate (Morphine Injection -) 1 mg IVPB Q3H PRN Last Admin: 04/18/17 07:00 Dose: 1 mg Multivitamins/Minerals/Vitamin C (Tab-A-Vit -) 1 tab PO DAILY [facility] Last Admin: 04/18/17 10:52 Dose: 1 tab Oxycodone HCl (Roxicodone -) 10 mg PO Q4H PRN PRN Reason: PAIN Last Admin: 04/16/17 21:43 Dose: 10 mg Tamsulosin HCl (Flomax -) 0.4 mg PO DAILY@0830 [facility] Last Admin: 04/18/17 10:52 Dose: 0.4 mg Warfarin Sodium (Coumadin -) 5 mg PO DAILY@1800 [facility] Last Admin: 04/17/17 17:50 Dose: Not Given - Objective Vital Signs: Vital Signs Temperature 96.5 F L 04/18/17 09:00 Pulse Rate 122 H 04/18/17 09:00 Respiratory Rate 18 04/18/17 09:00 Blood Pressure 83/44 04/18/17 11:15 O2 Sat by Pulse Oximetry (%) 99 04/17/17 21:00 Constitutional: Yes: Moderate Distress Cardiovascular: Yes: Pulse Irregular Respiratory: Yes: Diminished Gastrointestinal: Yes: Normal Bowel Sounds, Soft. No: Distention, Tenderness Extremities: Yes: Other (rt BKA- left foot gangrene-- foul smelling, dressing in place) Edema: No Labs: CBC, BMP 04/15/17 06:00 04/15/17 13:00 INR, PTT INR 1.56 (0.82-1.09) H 04/18/17 07:00 Problem List - Problems (1) Atrial fibrillation with RVR Code(s): I48.91 - UNSPECIFIED ATRIAL FIBRILLATION (2) Gangrene Code(s): I96 - GANGRENE, NOT ELSEWHERE CLASSIFIED (3) Sepsis Code(s): A41.9 - SEPSIS, UNSPECIFIED ORGANISM (4) NICHOLAS (acute kidney injury) Code(s): N17.9 - ACUTE KIDNEY FAILURE, UNSPECIFIED (5) CAD (coronary artery disease) Code(s): I25.10 - ATHSCL HEART DISEASE OF [place] CORONARY ARTERY W/O ANG PCTRS (6) NSTEMI (non-ST elevated myocardial infarction) Code(s): I21.4 - NON-ST ELEVATION (NSTEMI) MYOCARDIAL INFARCTION Assessment/Plan PLAN Sepsis -- cultures blood negative, urine culture positive -- iv antibiotics-- dc -- will need left BKA- family NOW consenting this time -- spoke with daughter Shannan today Afib with RVR -- pt had recent Echo in December-- severe systolic dysfunction --on Coumadin-- will hold it for now -- rate control NSTEMI -- likely due to sepsis -- on Coumadin and plavix-- hold off Coumadin DVT prophylaxis -- on coumadin -- on hold-- start Lovenox wrist restraints
--- NOTE | 2017-04-18 15:14 | PN ---
Progress Note (short form) - Note Progress Note: [facility] Pt seen and examined. Left foot gangrene with tremendous rest pain. Will need left BKA. Hold coumadin. Please optimize for surgery. Pt might benefit from PEG , because he has not been eating. Devan Kothari DO
--- NOTE | 2017-04-18 15:21 | PN ---
Progress Note, Physician History of Present Illness: Lethargic Not conversant Afebrile WBC slightly elevated - Current Medication List Current Medications: Active Medications Acetaminophen (Tylenol -) 650 mg PO Q6H PRN PRN Reason: FEVER Last Admin: 04/13/17 21:34 Dose: 650 mg Amino Acids (Prosource No Carb Liquid Pkt) 30 ml PO BID@0800,1730 [facility] Last Admin: 04/18/17 10:52 Dose: 30 ml Carvedilol (Coreg -) 3.125 mg PO BID [facility] Last Admin: 04/18/17 10:52 Dose: Not Given Clopidogrel Bisulfate (Plavix -) 75 mg PO DAILY [facility] Last Admin: 04/18/17 10:52 Dose: 75 mg Donepezil HCl (Aricept -) 10 mg PO DAILY [facility] Last Admin: 04/18/17 10:52 Dose: 10 mg Enoxaparin Sodium (Lovenox -) 60 mg SQ BID [facility] Fentanyl (Duragesic 12mcg Patch -) 1 patch TD Q72H [facility] Last Admin: 04/17/17 17:50 Dose: 1 patch Dextrose (D5w -) 1,000 mls @ 42 mls/hr IV ASDIR [facility] Last Admin: 04/18/17 07:36 Dose: Not Given Insulin Aspart (Novolog Vial Sliding Scale -) 1 vial SQ TIDAC [facility] PRN Reason: Protocol Last Admin: 04/18/17 11:42 Dose: Not Given Miscellaneous (Duragesic Patch Waste) 1 each MC PRN PRN PRN Reason: PAIN Morphine Sulfate (Morphine Injection -) 1 mg IVPB Q3H PRN Last Admin: 04/18/17 15:07 Dose: 1 mg Multivitamins/Minerals/Vitamin C (Tab-A-Vit -) 1 tab PO DAILY [facility] Last Admin: 04/18/17 10:52 Dose: 1 tab Oxycodone HCl (Roxicodone -) 10 mg PO Q4H PRN PRN Reason: PAIN Last Admin: 04/16/17 21:43 Dose: 10 mg Tamsulosin HCl (Flomax -) 0.4 mg PO DAILY@0830 [facility] Last Admin: 04/18/17 10:52 Dose: 0.4 mg - Objective Vital Signs: Vital Signs Temperature 96.5 F L 04/18/17 09:00 Pulse Rate 122 H 04/18/17 09:00 Respiratory Rate 18 04/18/17 09:00 Blood Pressure 83/44 04/18/17 11:15 O2 Sat by Pulse Oximetry (%) 99 04/18/17 09:00 Constitutional: Yes: No Distress, Cachectic Extremities: Yes: Other (R BKA stump healing well. L foot gangrene worsened) Labs: CBC, BMP 04/15/17 06:00 04/15/17 13:00 INR, PTT INR 1.56 (0.82-1.09) H 04/18/17 07:00 Assessment/Plan + gangrene, L foot Post op R BKA S /P UTI ESBL Leukocytosis - likely secondary to gangrene Lactic acidosis- resolved For L BKA observe off antibiotics
--- NOTE | 2017-04-18 17:11 | PN ---
Progress Note, Physician Chief Complaint: Pt lying in bed; eyes open; responds (in [place]vian) to "how are you?" with "good" ; denies pain; does not answer when asked where he is or what the date is; does not move limbs on request. History of Present Illness: 77 y/o man (b. [place]), with a PMHx of Alzheimer's, severe systolic CHF, s/p NSTEMI 2017, HLD, NIDDM, and HTN, chronic foot ulcers and gangrene, presents to the ED via EMS from [facility] with change in mental status and foul smelling foot ulcers. Per [place] records, patient has an elevated WBC. - Current Medication List Current Medications: Active Medications Acetaminophen (Tylenol -) 650 mg PO Q6H PRN PRN Reason: FEVER Last Admin: 04/13/17 21:34 Dose: 650 mg Amino Acids (Prosource No Carb Liquid Pkt) 30 ml PO BID@0800,1730 [facility] Last Admin: 04/18/17 10:52 Dose: 30 ml Carvedilol (Coreg -) 3.125 mg PO BID [facility] Last Admin: 04/18/17 10:52 Dose: Not Given Clopidogrel Bisulfate (Plavix -) 75 mg PO DAILY [facility] Last Admin: 04/18/17 10:52 Dose: 75 mg Donepezil HCl (Aricept -) 10 mg PO DAILY [facility] Last Admin: 04/18/17 10:52 Dose: 10 mg Enoxaparin Sodium (Lovenox -) 60 mg SQ BID [facility] Fentanyl (Duragesic 12mcg Patch -) 1 patch TD Q72H [facility] Last Admin: 04/17/17 17:50 Dose: 1 patch Dextrose (D5w -) 1,000 mls @ 42 mls/hr IV ASDIR [facility] Last Admin: 04/18/17 07:36 Dose: Not Given Insulin Aspart (Novolog Vial Sliding Scale -) 1 vial SQ TIDAC [facility] PRN Reason: Protocol Last Admin: 04/18/17 11:42 Dose: Not Given Miscellaneous (Duragesic Patch Waste) 1 each MC PRN PRN PRN Reason: PAIN Morphine Sulfate (Morphine Injection -) 1 mg IVPB Q3H PRN Last Admin: 04/18/17 15:07 Dose: 1 mg Multivitamins/Minerals/Vitamin C (Tab-A-Vit -) 1 tab PO DAILY [facility] Last Admin: 04/18/17 10:52 Dose: 1 tab Oxycodone HCl (Roxicodone -) 10 mg PO Q4H PRN PRN Reason: PAIN Last Admin: 04/16/17 21:43 Dose: 10 mg Tamsulosin HCl (Flomax -) 0.4 mg PO DAILY@0830 [facility] Last Admin: 04/18/17 10:52 Dose: 0.4 mg - Objective Vital Signs: Vital Signs Temperature 97.8 F 04/18/17 15:00 Pulse Rate 122 H 04/18/17 09:00 Respiratory Rate 20 04/18/17 15:00 Blood Pressure 106/60 04/18/17 15:00 O2 Sat by Pulse Oximetry (%) 99 04/18/17 09:00 Constitutional: Yes: Thin, Other (weak; disoriented) Eyes: Yes: WNL HENT: Yes: WNL Neck: Yes: WNL Cardiovascular: Yes: Tachycardia, Pulse Irregular, S1 (varies in intensity). No : JVD Respiratory: Yes: Regular Gastrointestinal: Yes: Soft Genitourinary: No: Anuria Musculoskeletal: Yes: Muscle Weakness Extremities: Yes: Cold Edema: Yes Edema: LLE: Trace Peripheral Pulses WNL: No Peripheral Pulses: Left Doralis Pedis: 1+, Right Dorsalis Pedis: 0 Integumentary: Yes: Pressure Ulcer, Other (gangrenous left foot) Wound/Incision: Yes: Other (foulsmelling left foot; blackeded toes) Neurological: Yes: Confusion, Weakness Psychiatric: Yes: Other (dementia) Labs: CBC, BMP 04/15/17 06:00 04/15/17 13:00 INR, PTT INR 1.56 (0.82-1.09) H 04/18/17 07:00 Problem List - Problems (1) Atrial fibrillation with RVR Assessment/Plan: Continue carvedilol. Wafarin held; use IV heparin until can restart warfarin after planned left foot amputation. May continue clopidogrel (hx recent NSTEMI) if no bleeding. Pain management. Code(s): I48.91 - UNSPECIFIED ATRIAL FIBRILLATION (2) Gangrene Assessment/Plan: s/p BKA right foot. Left foot gangrene of toes;for BKA next week. Hold warfarin (use IV heparin until warfarin can be restarted after BKA). Code(s): I96 - GANGRENE, NOT ELSEWHERE CLASSIFIED (3) Sepsis Code(s): A41.9 - SEPSIS, UNSPECIFIED ORGANISM (4) Acute on chronic systolic (congestive) heart failure Assessment/Plan: Pt is on beta blockers (attempt to give [id number] for better efficacy); overall benefit still likely, despite controversy when used with systolic CHF + AF; keep resting HR >90<110 bpm. Problematic using ACEI or spironolactone with present low BP. Code(s): I50.23 - ACUTE ON CHRONIC SYSTOLIC (CONGESTIVE) HEART FAILURE (5) Aortic stenosis Assessment/Plan: moderately severe on recent ECHO; may be underestimated because of severe LV dysfunction. Code(s): I35.0 - NONRHEUMATIC AORTIC (VALVE) STENOSIS (6) Dementia Code(s): F03.90 - UNSPECIFIED DEMENTIA WITHOUT BEHAVIORAL DISTURBANCE (7) Hyperlipidemia Code(s): E78.5 - HYPERLIPIDEMIA, UNSPECIFIED (8) HTN (hypertension) Code(s): I10 - ESSENTIAL (PRIMARY) HYPERTENSION (9) Normocytic anemia Code(s): D64.9 - ANEMIA, UNSPECIFIED (10) Elevated troponin Code(s): R74.8 - ABNORMAL LEVELS OF OTHER SERUM ENZYMES (11) Elevated LFTs Code(s): R79.89 - OTHER SPECIFIED ABNORMAL FINDINGS OF BLOOD CHEMISTRY (12) Hypoalbuminemia Code(s): E88.09 - OTH DISORDERS OF PLASMA-PROTEIN METABOLISM, NEC
[2017-04-18] MEDS: ENOXAPARIN NA (PORCINE) 60 MG/0.6 ML DISP.SYRIN SQ SCH (21:35)
[2017-04-19] MEDS: morphine CARPU-JECT 4 MG/1 ML DISP.SYRIN IVPB PRN (01:03)
[2017-04-19] MEDS: morphine CARPU-JECT 2 MG/1 ML DISP.SYRIN IVPB PRN ×3 (05:37→15:27)
[2017-04-19] MEDS: INSULIN SLIDING SCALE (NOVOLOG) 1 VIAL SQ SCH ×3 (06:05→18:02)
--- NOTE | 2017-04-19 08:17 | PN ---
Progress Note, Physician History of Present Illness: seen and examined today in nad. awake and alert but not communicating. - Current Medication List Current Medications: Active Medications Acetaminophen (Tylenol -) 650 mg PO Q6H PRN PRN Reason: FEVER Last Admin: 04/13/17 21:34 Dose: 650 mg Amino Acids (Prosource No Carb Liquid Pkt) 30 ml PO BID@0800,1730 [facility] Last Admin: 04/18/17 18:26 Dose: Not Given Carvedilol (Coreg -) 3.125 mg PO BID [facility] Last Admin: 04/18/17 21:36 Dose: Not Given Clopidogrel Bisulfate (Plavix -) 75 mg PO DAILY [facility] Last Admin: 04/18/17 10:52 Dose: 75 mg Donepezil HCl (Aricept -) 10 mg PO DAILY [facility] Last Admin: 04/18/17 10:52 Dose: 10 mg Enoxaparin Sodium (Lovenox -) 60 mg SQ BID [facility] Last Admin: 04/18/17 21:35 Dose: 60 mg Fentanyl (Duragesic 12mcg Patch -) 1 patch TD Q72H [facility] Last Admin: 04/17/17 17:50 Dose: 1 patch Dextrose (D5w -) 1,000 mls @ 42 mls/hr IV ASDIR [facility] Last Admin: 04/18/17 18:24 Dose: 42 mls/hr Insulin Aspart (Novolog Vial Sliding Scale -) 1 vial SQ TIDAC [facility] PRN Reason: Protocol Last Admin: 04/19/17 06:05 Dose: Not Given Miscellaneous (Duragesic Patch Waste) 1 each MC PRN PRN PRN Reason: PAIN Morphine Sulfate (Morphine Injection -) 1 mg IVPB Q3H PRN Last Admin: 04/19/17 05:37 Dose: 1 mg Multivitamins/Minerals/Vitamin C (Tab-A-Vit -) 1 tab PO DAILY [facility] Last Admin: 04/18/17 10:52 Dose: 1 tab Oxycodone HCl (Roxicodone -) 10 mg PO Q4H PRN PRN Reason: PAIN Last Admin: 04/16/17 21:43 Dose: 10 mg Tamsulosin HCl (Flomax -) 0.4 mg PO DAILY@0830 [facility] Last Admin: 04/18/17 10:52 Dose: 0.4 mg - Objective Vital Signs: Vital Signs Temperature 98.9 F 04/18/17 22:00 Pulse Rate 127 H 04/19/17 06:16 Respiratory Rate 20 04/19/17 06:16 Blood Pressure 127/62 04/19/17 06:16 O2 Sat by Pulse Oximetry (%) 99 04/18/17 21:00 Constitutional: Yes: No Distress, Calm Eyes: Yes: Conjunctiva Clear, EOM Intact, PERRL HENT: Yes: Atraumatic, Normocephalic Neck: Yes: Supple, Trachea Midline Cardiovascular: Yes: Pulse Irregular, Murmur, S1, S2. No: Regular Rate and Rhythm, Bradycardia, Tachycardia, Bruit, JVD, Gallop, Rub, S3, S4, Varicosities Respiratory: Yes: Regular, Rhonchi. No: Rales, SOB, Wheezes Gastrointestinal: Yes: Normal Bowel Sounds, Soft. No: Distention, Tenderness Extremities: Yes: Amputation Edema: No Peripheral Pulses WNL: No Neurological: Yes: Alert Psychiatric: Yes: Alert Labs: CBC, BMP 04/15/17 06:00 04/15/17 13:00 INR, PTT INR 1.56 (0.82-1.09) H 04/18/17 07:00 - ....Imaging Chest X-ray: Report Reviewed, Image Reviewed EKG: Report Reviewed, Image Reviewed Other: Report Reviewed, Image Reviewed Assessment/Plan 77 year old man with a h/o Alzheimers dementia, Chronic systolic CHF with severe LV dysfunction, CAD NSTEMI, HTN, HLD DMII, chronic LE ulcers gangrene, a/ w non-healing LE ulcer, s/p BKA RLE, planned for BKA LLE. Afib-with intermittent RVR -HR currently adequately controlled -cont coreg as BP tolerates -if needed for additional HR control and BP does not tolerate uptitration of coreg can use digoxin -receiving full dose Lovenox currently with plan to resume warfarin after surgery CAD-h/o nstemi -plan to resume plavix after surgery -cont bblocker Chronic systolic CHF -cont bblocker -insufficient bp room to add other agents at this point Aortic stenosis-moderate to severe -monitor for now
[2017-04-19] MEDS: TAMSULOSIN HCL 0.4 MG CAP.ER.24H (FP) PO SCH (09:47)
[2017-04-19] MEDS: DONEPEZIL HCL 10 MG TABLET (FP) PO SCH (09:47)
[2017-04-19] MEDS: AMINO ACIDS/PROTEIN HYDROLYS 30 ML LIQUID.PKT PO SCH ×2 (09:47→16:55)
[2017-04-19] MEDS: CARVEDILOL 3.125 MG TABLET (FP) PO SCH ×2 (09:48→23:00)
[2017-04-19] MEDS: MULTIVITAMINS (DAILY MVI) TABLET (FP) PO SCH (09:48)
[2017-04-19] MEDS: CLOPIDOGREL BISULFATE 75 MG TABLET (FP) PO SCH (09:48)
[2017-04-19] MEDS: ENOXAPARIN NA (PORCINE) 60 MG/0.6 ML DISP.SYRIN SQ SCH ×2 (10:36→23:02)
[2017-04-19] MEDS: DEXTROSE 5%-NORMAL SALINE 1,000 ML IV SCH (10:36)
[2017-04-19] MEDS ORDERED: PT OWN MED DRAWER 7, Y5N ONE (11:55)
--- NOTE | 2017-04-19 12:11 | PN ---
Progress Note, Physician Chief Complaint: confused not taking po does not eat seen by Vascular surgeon who will arrange for amputation of left foot - Current Medication List Current Medications: Active Medications Acetaminophen (Tylenol -) 650 mg PO Q6H PRN PRN Reason: FEVER Last Admin: 04/13/17 21:34 Dose: 650 mg Amino Acids (Prosource No Carb Liquid Pkt) 30 ml PO BID@0800,1730 [facility] Last Admin: 04/19/17 09:47 Dose: Not Given Carvedilol (Coreg -) 3.125 mg PO BID [facility] Last Admin: 04/19/17 09:48 Dose: Not Given Donepezil HCl (Aricept -) 10 mg PO DAILY [facility] Last Admin: 04/19/17 09:47 Dose: Not Given Enoxaparin Sodium (Lovenox -) 60 mg SQ BID [facility] Last Admin: 04/19/17 10:36 Dose: 60 mg Fentanyl (Duragesic 12mcg Patch -) 1 patch TD Q72H [facility] Last Admin: 04/17/17 17:50 Dose: 1 patch Dextrose/Sodium Chloride (D5-Ns -) 1,000 mls @ 60 mls/hr IV ASDIR [facility] Last Admin: 04/19/17 10:36 Dose: 60 mls/hr Insulin Aspart (Novolog Vial Sliding Scale -) 1 vial SQ TIDAC [facility] PRN Reason: Protocol Last Admin: 04/19/17 06:05 Dose: Not Given Miscellaneous (Duragesic Patch Waste) 1 each [facility] PRN PRN PRN Reason: PAIN Morphine Sulfate (Morphine Injection -) 1 mg IVPB Q3H PRN Last Admin: 04/19/17 11:59 Dose: 1 mg Multivitamins/Minerals/Vitamin C (Tab-A-Vit -) 1 tab PO DAILY [facility] Last Admin: 04/19/17 09:48 Dose: Not Given Oxycodone HCl (Roxicodone -) 10 mg PO Q4H PRN PRN Reason: PAIN Last Admin: 04/16/17 21:43 Dose: 10 mg Tamsulosin HCl (Flomax -) 0.4 mg PO DAILY@0830 [facility] Last Admin: 04/19/17 09:47 Dose: Not Given - Objective Vital Signs: Vital Signs Temperature 97.7 F 04/19/17 09:57 Pulse Rate 99 H 04/19/17 09:57 Respiratory Rate 16 10/07/17 09:57 Blood Pressure 97/37 04/19/17 09:57 O2 Sat by Pulse Oximetry (%) 99 04/18/17 21:00 Constitutional: Yes: Anxious Cardiovascular: Yes: Pulse Irregular Respiratory: Yes: Diminished Gastrointestinal: Yes: Normal Bowel Sounds, Soft. No: Distention, Tenderness Extremities: Yes: Other (rt BKA) Edema: No Labs: CBC, BMP 04/15/17 06:00 04/15/17 13:00 INR, PTT INR 1.56 (0.82-1.09) H 04/18/17 07:00 Problem List - Problems (1) Atrial fibrillation with RVR Code(s): I48.91 - UNSPECIFIED ATRIAL FIBRILLATION (2) Gangrene Code(s): I96 - GANGRENE, NOT ELSEWHERE CLASSIFIED (3) Sepsis Code(s): A41.9 - SEPSIS, UNSPECIFIED ORGANISM (4) NICHOLAS (acute kidney injury) Code(s): N17.9 - ACUTE KIDNEY FAILURE, UNSPECIFIED (5) CAD (coronary artery disease) Code(s): I25.10 - ATHSCL HEART DISEASE OF [place] CORONARY ARTERY W/O ANG PCTRS (6) NSTEMI (non-ST elevated myocardial infarction) Code(s): I21.4 - NON-ST ELEVATION (NSTEMI) MYOCARDIAL INFARCTION Assessment/Plan PLAN Sepsis --resolving -- iv antibiotics-- dc -- will need left BKA- family NOW consenting this time --possible next week Afib with RVR -- pt had recent Echo in December-- severe systolic dysfunction --on Coumadin-- will hold it for now , on Lovenox - in anticipation for surgery -- rate control NSTEMI -- likely due to sepsis -- on Coumadin and plavix-- hold off Coumadin and Plavix Poor po intake -- severe dementia -- iv fluids -- GI eval for possible GT placememt DVT prophylaxis -- on coumadin -- on hold-- start Lovenox wrist restraints, mittens
[2017-04-19] MEDS ORDERED: LORazepam 2 MG/ML SDV VIAL ONE (18:03)
[2017-04-20] MEDS: INSULIN SLIDING SCALE (NOVOLOG) 1 VIAL SQ SCH ×3 (06:20→16:22)
[2017-04-20] MEDS: DEXTROSE 5%-NORMAL SALINE 1,000 ML IV SCH ×2 (06:21→11:14)
[2017-04-20] MEDS: morphine CARPU-JECT 2 MG/1 ML DISP.SYRIN IVPB PRN ×3 (06:38→22:55)
[2017-04-20] MEDS: TAMSULOSIN HCL 0.4 MG CAP.ER.24H (FP) PO SCH (08:04)
[2017-04-20] MEDS: AMINO ACIDS/PROTEIN HYDROLYS 30 ML LIQUID.PKT PO SCH ×2 (08:04→18:09)
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
[2017-04-20] MEDS: CARVEDILOL 3.125 MG TABLET (FP) PO SCH ×2 (09:00→22:35)
[2017-04-20] MEDS: MULTIVITAMINS (DAILY MVI) TABLET (FP) PO SCH (09:00)
[2017-04-20] MEDS: DONEPEZIL HCL 10 MG TABLET (FP) PO SCH (09:00)
--- NOTE | 2017-04-20 11:10 | PN ---
Progress Note, Physician History of Present Illness: seen and examined today in nad. - Current Medication List Current Medications: Active Medications Acetaminophen (Tylenol -) 650 mg PO Q6H PRN PRN Reason: FEVER Last Admin: 04/13/17 21:34 Dose: 650 mg Amino Acids (Prosource No Carb Liquid Pkt) 30 ml PO BID@0800,1730 [facility] Last Admin: 04/20/17 08:04 Dose: Not Given Carvedilol (Coreg -) 3.125 mg PO BID [facility] Last Admin: 04/19/17 23:00 Dose: Not Given Donepezil HCl (Aricept -) 10 mg PO DAILY [facility] Last Admin: 04/19/17 09:47 Dose: Not Given Enoxaparin Sodium (Lovenox -) 60 mg SQ BID [facility] Last Admin: 04/19/17 23:02 Dose: 60 mg Fentanyl (Duragesic 12mcg Patch -) 1 patch TD Q72H [facility] Last Admin: 04/17/17 17:50 Dose: 1 patch Dextrose/Sodium Chloride (D5-Ns -) 1,000 mls @ 60 mls/hr IV ASDIR [facility] Last Admin: 04/20/17 06:21 Dose: 60 mls/hr Insulin Aspart (Novolog Vial Sliding Scale -) 1 vial SQ TIDAC [facility] PRN Reason: Protocol Last Admin: 04/20/17 06:20 Dose: Not Given Lorazepam (Ativan Injection -) 0.5 mg IVPUSH Q6H PRN PRN Reason: ANXIETY Last Admin: 04/19/17 18:13 Dose: 0.5 mg Miscellaneous (Duragesic Patch Waste) 1 each MC PRN PRN PRN Reason: PAIN Morphine Sulfate (Morphine Injection -) 1 mg IVPB Q3H PRN Last Admin: 04/20/17 06:38 Dose: 1 mg Multivitamins/Minerals/Vitamin C (Tab-A-Vit -) 1 tab PO DAILY [facility] Last Admin: 04/19/17 09:48 Dose: Not Given Oxycodone HCl (Roxicodone -) 10 mg PO Q4H PRN PRN Reason: PAIN Last Admin: 04/16/17 21:43 Dose: 10 mg Tamsulosin HCl (Flomax -) 0.4 mg PO DAILY@0830 [facility] Last Admin: 04/20/17 08:04 Dose: Not Given - Objective Vital Signs: Vital Signs Temperature 98.7 F 04/19/17 20:38 Pulse Rate 110 H 04/19/17 20:38 Respiratory Rate 20 04/19/17 20:38 Blood Pressure 100/57 04/19/17 20:38 O2 Sat by Pulse Oximetry (%) 96 04/19/17 20:38 Constitutional: Yes: No Distress, Calm Eyes: Yes: Conjunctiva Clear, EOM Intact, PERRL HENT: Yes: Atraumatic, Normocephalic Neck: Yes: Supple, Trachea Midline Cardiovascular: Yes: Tachycardia, Pulse Irregular, Murmur, S1, S2. No: Bradycardia, Bruit, JVD, Gallop, Rub, S3, S4, Varicosities Respiratory: Yes: Regular, CTA Bilaterally. No: Rales, Rhonchi, SOB, Wheezes Gastrointestinal: Yes: Normal Bowel Sounds, Soft. No: Distention, Tenderness Extremities: Yes: Amputation Peripheral Pulses WNL: No Neurological: Yes: Alert Psychiatric: Yes: Alert Labs: CBC, BMP 04/15/17 06:00 04/15/17 13:00 INR, PTT INR 1.56 (0.82-1.09) H 04/18/17 07:00 - ....Imaging Chest X-ray: Report Reviewed, Image Reviewed EKG: Report Reviewed, Image Reviewed Other: Report Reviewed, Image Reviewed Assessment/Plan 77 year old man with a h/o Alzheimers dementia, Chronic systolic CHF with severe LV dysfunction, CAD NSTEMI, HTN, HLD DMII, chronic LE ulcers gangrene, a/ w non-healing LE ulcer, s/p BKA RLE, planned for BKA LLE. Afib-with intermittent RVR -HR this am uncontrolled -BP at this time does not tolerate uptitration of Coreg -cont Coreg 3.125mg bid -will start Digoxin IV today then po daily tomorrow -monitor labs, bun/creat and electrolytes, creat was wnl on last check -receiving full dose Lovenox currently with plan to resume warfarin after surgery CAD-h/o nstemi -plan to resume plavix after surgery -cont bblocker Chronic systolic CHF -cont bblocker -insufficient bp room to add other agents at this point Aortic stenosis-moderate to severe -monitor for now
[2017-04-20] MEDS: ENOXAPARIN NA (PORCINE) 60 MG/0.6 ML DISP.SYRIN SQ SCH ×2 (11:13→22:35)
[2017-04-20] MEDS ORDERED: DIGOXIN 0.5 MG/2 ML AMPUL IVPUSH SCH (12:00)
[2017-04-20] MEDS: DIGOXIN 0.5 MG/2 ML AMPUL IVPB SCH ×2 (13:02→19:04)
--- NOTE | 2017-04-20 15:20 | CON.GI ---
Consult Consult Specialty:: Gastroenterology Referred by:: Dr Rebecca Smith Reason for Consultation:: dysphagia - History of Present Illness History of Present Illness: 77 y/o Male was admitted with wound infection, A-Fib, CKD, NSTEMI was asked to be seen for PEG insertion secondary to dysphagia. He is on Lovenox for Atrial fibrillation. 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: Yes: Alzheimer's, Dementia Cardio/Vascular: Yes: AFIB, CHF, HTN, Hyperlipdemia Psych: Yes: Bipolar, Other Endocrine: Yes: Diabetes Mellitus Additional Medical History: diabetic and PAD associated foot ulcers bilaterally - Past Surgical History Past Surgical History: Yes: None - Alcohol/Substance Use Hx Alcohol Use: No - Smoking History Smoking history: Unknown if ever smoked Have you smoked in the past 12 months: No - Social History Usual Living Arrangement: With Child ADL: Family Assistance History of Recent Travel: No Home Medications - Allergies Allergies/Adverse Reactions: Allergies Allergy/AdvReac Type Severity Reaction Status Date / Time No Known Allergies Allergy Verified 02/24/17 10:36 - Home Medications Home Medications: Ambulatory Orders Cyanocobalamin (Vitamin B-12) [Vitamin B-12] 1,000 mcg PO DAILY 10/04/16 Metformin HCl [Metformin HCl ER] 1,000 mg PO BID 11/26/16 Spironolactone [Aldactone -] 25 mg PO DAILY #0 tablet 01/17/17 Multivitamins [Multivit ([facility] Formulary)] 1 tab PO DAILY 01/29/17 Vit A/Vitamin D3/E/Aloe V/Znox [Periguard Ointment] 0 gm TP TID 01/29/17 Clopidogrel Bisulfate [Plavix -] 75 mg PO DAILY tablet 02/04/17 Acetaminophen [Pain Relief] 650 mg PO DAILY 02/24/17 Mirtazapine [Remeron -] 15 mg PO HS 02/24/17 Aspirin [ASA -] 81 mg PO DAILY tab.chew 03/21/17 Donepezil HCl [Aricept -] 10 mg PO DAILY tablet 03/21/17 Insulin Sliding Scale [Novolog Vial Sliding Scale -] 1 vial SQ ACHS units 03/21 Metoprolol Tartrate [Lopressor -] 50 mg PO TID tablet 03/21/17 Tamsulosin HCl [Flomax -] 0.4 mg PO DAILY@1630 #30 tab 03/21/17 Amino Acids/Protein Hydrolys [Pro-Stat Sugar Free Liquid Pkt] 30 ml PO BID 04/07 Clonazepam [Klonopin -] 0.5 mg PO Q12H MDD 2 04/07/17 Physical Exam-GI Vital Signs: Vital Signs Temperature 98.6 F 04/20/17 11:00 Pulse Rate 115 H 04/20/17 13:02 Respiratory Rate 18 04/20/17 13:00 Blood Pressure 112/60 04/20/17 13:00 O2 Sat by Pulse Oximetry (%) 96 04/19/17 20:38 Constitutional: Yes: Well Nourished, Poor Hygeine HENT: Yes: Atraumatic Neck: Yes: Trachea Midline Cardiovascular: Yes: Pulse Irregular, Murmur. No: JVD Respiratory: Yes: CTA Bilaterally ...Palpate: Yes: Soft. No: Firm/Rigid, Guarding, Hepatomegaly, Mass, Pulsatile Mass, Splenomegaly, Tenderness Extremities: Yes: Amputation Neurological: Yes: Alert Labs: CBC, BMP 04/15/17 06:00 04/15/17 13:00 INR, PTT INR 1.56 (0.82-1.09) H 04/18/17 07:00 CBC,CMP WBC 14.5 K/mm3 (4.0-10.0) H 04/15/17 06:00 RBC 3.51 M/mm3 (4.00-5.60) L 04/15/17 06:00 Hgb 9.1 GM/dL (11.7-16.9) L 04/15/17 06:00 Hct 29.8 % (35.4-49) L 04/15/17 06:00 MCV 84.9 fl (80-96) 04/15/17 06:00 MCH 26.0 pg (25.7-33.7) 04/15/17 06:00 MCHC 30.6 g/dl (32.0-35.9) L 04/15/17 06:00 RDW 21.0 % (11.9-15.9) H 04/15/17 06:00 Plt Count 259 K/MM3 (134-434) 04/15/17 06:00 MPV 9.0 fl (7.5-11.1) 04/15/17 06:00 Total Counted 100 04/07/17 14:27 Neutrophils % 83.0 % (42.8-82.8) H 04/15/17 06:00 Neutrophils % (Manual) 78 % (42.8-82.8) 04/07/17 14:27 Band Neuts % (Manual) 9 % (0-10) 04/07/17 14:27 Lymphocytes % 12.0 % (8-40) 04/15/17 06:00 Lymphocytes % (Manual) 9 % (8-40) 04/07/17 14:27 Monocytes % 4.6 % (3.8-10.2) 04/15/17 06:00 Monocytes % (Manual) 4 % (3.8-10.2) 04/07/17 14:27 Eosinophils % 0.3 % (0-4.5) 04/15/17 06:00 Basophils % 0.1 % (0-2.0) D 04/15/17 06:00 Platelet Estimate Increased (NORMAL) 04/07/17 14:27 Anisocytosis 2+ 04/15/17 06:00 Microcytosis 1+ 04/15/17 06:00 Sodium 143 mmol/L (136-145) 04/15/17 13:00 Potassium 3.9 mmol/L (3.5-5.1) D 04/15/17 13:00 Chloride 108 mmol/L (98-107) H 04/15/17 13:00 Carbon Dioxide 26 mmol/L (21-32) 04/15/17 13:00 Anion Gap 9 (8-16) 04/15/17 13:00 BUN 21 mg/dL (7-18) H 04/15/17 13:00 Creatinine 0.7 mg/dL (0.7-1.3) D 04/15/17 13:00 Creat Clearance w eGFR > 60 (>60) 04/15/17 06:00 POC Glucometer 98 UNITS (()) 04/20/17 11:20 Random Glucose 83 mg/dL (74-106) D 04/15/17 13:00 Lactic Acid 2.0 mmol/L (0.4-2.0) 04/10/17 05:10 Calcium 8.5 mg/dL (8.5-10.1) 04/15/17 13:00 Phosphorus 2.9 mg/dL (2.5-4.9) 04/12/17 05:30 Magnesium 2.2 mg/dL (1.8-2.4) D 04/12/17 05:30 Total Bilirubin 0.5 mg/dL (0.2-1.0) D 04/15/17 06:00 AST 36 U/L (15-37) D 04/15/17 06:00 ALT 115 U/L (12-78) H D 04/15/17 06:00 Alkaline Phosphatase 146 U/L (45-117) H 04/15/17 06:00 Creatine Kinase 96 IU/L (39-308) 04/08/17 16:00 CK-MB (CK-2) 6.142 ng/mL (0.5-3.6) H 04/09/17 05:10 Troponin I 2.32 ng/ml (0.00-0.05) H* 04/10/17 05:10 Total Protein 6.1 g/dl (6.4-8.2) L 04/15/17 06:00 Albumin 1.5 g/dl (3.4-5.0) L 04/15/17 06:00 TSH 2.40 uIU/ml (0.358-3.74) D 04/07/17 17:00 Assessment/Plan Dysphagia/Failure to thrive R> will schedule for PEG once medically cleared, will schedule for Friday will obtain consent
[2017-04-20] MEDS: fentaNYL 12mcg/hr PATCH.TD72 TD SCH (16:15)
[2017-04-21] MEDS: INSULIN SLIDING SCALE (NOVOLOG) 1 VIAL SQ SCH ×3 (06:06→17:22)
[2017-04-21 09:24] LABS: MCH 25.9 pg (25.7-33.7); MCHC 30.6 g/dl (32.0-35.9); MEAN CELL VOLUME 84.6 fl (80-96); MEAN PLT VOLUME 7.8 fl (7.5-11.1); PLATELET COUNT 376 K/MM3 (134-434); RDW 21.8 % (11.9-15.9); WHITE BLOOD COUNT 11.5 K/mm3 (4.0-10.0)
[2017-04-21 09:43] LABS: ANION GAP 6 (8-16); CALCIUM 8.1 mg/dL (8.5-10.1); CO2 26 mmol/L (21-32); CREATININE 0.6 mg/dL (0.7-1.3); GLUCOSE,RANDOM 113 mg/dL (74-106)
[2017-04-21] MEDS ORDERED: PT OWN MED DRAWER 7, Y5N ONE ×2 (09:46→22:16)
[2017-04-21] MEDS: CARVEDILOL 3.125 MG TABLET (FP) PO SCH ×2 (09:54→22:57)
[2017-04-21] MEDS: ENOXAPARIN NA (PORCINE) 60 MG/0.6 ML DISP.SYRIN SQ SCH ×2 (09:54→22:58)
[2017-04-21] MEDS: DIGOXIN 0.125 MG TABLET (FP) PO SCH (09:55)
[2017-04-21] MEDS: AMINO ACIDS/PROTEIN HYDROLYS 30 ML LIQUID.PKT PO SCH ×2 (09:55→17:20)
[2017-04-21] MEDS: MULTIVITAMINS (DAILY MVI) TABLET (FP) PO SCH (09:55)
[2017-04-21] MEDS: TAMSULOSIN HCL 0.4 MG CAP.ER.24H (FP) PO SCH (09:55)
[2017-04-21] MEDS: DONEPEZIL HCL 10 MG TABLET (FP) PO SCH (09:55)
[2017-04-21] MEDS: morphine CARPU-JECT 2 MG/1 ML DISP.SYRIN IVPB PRN ×2 (10:00→13:57)
[2017-04-21 10:08] LABS: INR 1.5 (0.82-1.09); PROTHROMBIN TIME (PATIENT) 16.6 SEC (9.98-11.88)
--- NOTE | 2017-04-21 11:05 | PN ---
Progress Note (short form) - Note Progress Note: Resting in NAD on RA. Confused. No acute events overnight. Intake & Output 04/18/17 04/19/17 04/20/17 04/21/17 23:59 23:59 23:59 23:59 Intake Total 670 736 890 770 Output Total 600 300 450 Balance 70 436 440 770 Weight 136 lb 140 lb 9.6 oz 142 lb 3.2 oz Last Vital Signs Temp Pulse Resp BP Pulse Ox 97.2 F L 108 H 18 120/67 96 04/21/17 06:00 04/21/17 09:55 04/21/17 06:00 04/21/17 06:00 04/20/17 21:00 Active Medications Acetaminophen (Tylenol -) 650 mg PO Q6H PRN PRN Reason: FEVER Last Admin: 04/13/17 21:34 Dose: 650 mg Amino Acids (Prosource No Carb Liquid Pkt) 30 ml PO BID@0800,1730 [facility] Last Admin: 04/21/17 09:55 Dose: 30 ml Carvedilol (Coreg -) 3.125 mg PO BID [facility] Last Admin: 04/21/17 09:54 Dose: 3.125 mg Digoxin (Lanoxin -) 0.125 mg PO DAILY [facility] Last Admin: 04/21/17 09:55 Dose: 0.125 mg Donepezil HCl (Aricept -) 10 mg PO DAILY [facility] Last Admin: 04/21/17 09:55 Dose: 10 mg Enoxaparin Sodium (Lovenox -) 60 mg SQ BID [facility] Last Admin: 04/21/17 09:54 Dose: 60 mg Fentanyl (Duragesic 12mcg Patch -) 1 patch TD Q72H [facility] Last Admin: 04/20/17 16:15 Dose: 1 patch Dextrose/Sodium Chloride (D5-Ns -) 1,000 mls @ 60 mls/hr IV ASDIR [facility] Last Admin: 04/20/17 11:14 Dose: Not Given Insulin Aspart (Novolog Vial Sliding Scale -) 1 vial SQ TIDAC [facility] PRN Reason: Protocol Last Admin: 04/21/17 06:06 Dose: Not Given Lorazepam (Ativan Injection -) 0.5 mg IVPUSH Q6H PRN PRN Reason: ANXIETY Last Admin: 04/19/17 18:13 Dose: 0.5 mg Miscellaneous (Duragesic Patch Waste) 1 each MC PRN PRN PRN Reason: PAIN Last Admin: 04/20/17 16:15 Dose: 1 each Morphine Sulfate (Morphine Injection -) 1 mg IVPB Q3H PRN Last Admin: 04/21/17 10:00 Dose: 1 mg Multivitamins/Minerals/Vitamin C (Tab-A-Vit -) 1 tab PO DAILY [facility] Last Admin: 04/21/17 09:55 Dose: 1 tab Oxycodone HCl (Roxicodone -) 10 mg PO Q4H PRN PRN Reason: PAIN Last Admin: 04/16/17 21:43 Dose: 10 mg Tamsulosin HCl (Flomax -) 0.4 mg PO DAILY@0830 [facility] Last Admin: 04/21/17 09:55 Dose: 0.4 mg Constitutional: Yes: No Distress, confused Cardiovascular: Yes: Pulse Irregular Respiratory: Yes: Diminished Gastrointestinal: Yes: Normal Bowel Sounds, Soft. No: Tenderness Extremities: Yes: Other (right BKA) Edema: No Labs: Laboratory Results - last 24 hr 04/20/17 04/20/17 04/20/17 11:20 16:19 22:42 WBC RBC Hgb Hct MCV MCH MCHC RDW Plt Count MPV Sodium Potassium Chloride Carbon Dioxide Anion Gap BUN Creatinine POC Glucometer 98 98 100 Random Glucose Calcium 04/21/17 04/21/17 04/21/17 06:04 09:10 09:10 WBC 11.5 H RBC 3.53 L Hgb 9.2 L Hct 29.9 L MCV 84.6 MCH 25.9 MCHC 30.6 L RDW 21.8 H Plt Count 376 D MPV 7.8 D Sodium 143 Potassium 3.8 Chloride 111 H Carbon Dioxide 26 Anion Gap 6 L BUN 15 D Creatinine 0.6 L POC Glucometer 112 Random Glucose 113 H D Calcium 8.1 L Problem List - Problems (1) Atrial fibrillation with RVR Code(s): I48.91 - UNSPECIFIED ATRIAL FIBRILLATION (2) Gangrene Code(s): I96 - GANGRENE, NOT ELSEWHERE CLASSIFIED (3) Sepsis Code(s): A41.9 - SEPSIS, UNSPECIFIED ORGANISM (4) NICHOLAS (acute kidney injury) Code(s): N17.9 - ACUTE KIDNEY FAILURE, UNSPECIFIED (5) CAD (coronary artery disease) Code(s): I25.10 - ATHSCL HEART DISEASE OF [place] CORONARY ARTERY W/O ANG PCTRS (6) NSTEMI (non-ST elevated myocardial infarction) Code(s): I21.4 - NON-ST ELEVATION (NSTEMI) MYOCARDIAL INFARCTION Assessment/Plan Currently off ABX O2 as needed only Lovenox BID Consideration for Left BKA IVF Being assessed for PEG Dr Qureshi
[2017-04-21] MEDS: DEXTROSE 5%-NORMAL SALINE 1,000 ML IV SCH ×2 (11:57→17:22)
--- NOTE | 2017-04-21 13:46 | PN ---
Progress Note, Physician Chief Complaint: moaning in pain - Current Medication List Current Medications: Active Medications Acetaminophen (Tylenol -) 650 mg PO Q6H PRN PRN Reason: FEVER Last Admin: 04/13/17 21:34 Dose: 650 mg Amino Acids (Prosource No Carb Liquid Pkt) 30 ml PO BID@0800,1730 [facility] Last Admin: 04/21/17 09:55 Dose: 30 ml Carvedilol (Coreg -) 3.125 mg PO BID [facility] Last Admin: 04/21/17 09:54 Dose: 3.125 mg Digoxin (Lanoxin -) 0.125 mg PO DAILY [facility] Last Admin: 04/21/17 09:55 Dose: 0.125 mg Donepezil HCl (Aricept -) 10 mg PO DAILY [facility] Last Admin: 04/21/17 09:55 Dose: 10 mg Enoxaparin Sodium (Lovenox -) 60 mg SQ BID [facility] Last Admin: 04/21/17 09:54 Dose: 60 mg Fentanyl (Duragesic 12mcg Patch -) 1 patch TD Q72H [facility] Last Admin: 04/20/17 16:15 Dose: 1 patch Dextrose/Sodium Chloride (D5-Ns -) 1,000 mls @ 60 mls/hr IV ASDIR [facility] Last Admin: 04/21/17 11:57 Dose: Not Given Insulin Aspart (Novolog Vial Sliding Scale -) 1 vial SQ TIDAC [facility] PRN Reason: Protocol Last Admin: 04/21/17 11:57 Dose: Not Given Lorazepam (Ativan Injection -) 0.5 mg IVPUSH Q6H PRN PRN Reason: ANXIETY Last Admin: 04/19/17 18:13 Dose: 0.5 mg Miscellaneous (Duragesic Patch Waste) 1 each MC PRN PRN PRN Reason: PAIN Last Admin: 04/20/17 16:15 Dose: 1 each Morphine Sulfate (Morphine Injection -) 1 mg IVPB Q3H PRN Last Admin: 04/21/17 10:00 Dose: 1 mg Multivitamins/Minerals/Vitamin C (Tab-A-Vit -) 1 tab PO DAILY [facility] Last Admin: 04/21/17 09:55 Dose: 1 tab Oxycodone HCl (Roxicodone -) 10 mg PO Q4H PRN PRN Reason: PAIN Last Admin: 04/16/17 21:43 Dose: 10 mg Tamsulosin HCl (Flomax -) 0.4 mg PO DAILY@0830 [facility] Last Admin: 04/21/17 09:55 Dose: 0.4 mg - Objective Vital Signs: Vital Signs Temperature 98 F 04/21/17 10:00 Pulse Rate 108 H 04/21/17 10:00 Respiratory Rate 18 04/21/17 10:00 Blood Pressure 126/69 04/21/17 10:00 O2 Sat by Pulse Oximetry (%) 97 04/21/17 09:00 Constitutional: Yes: Moderate Distress Cardiovascular: Yes: Pulse Irregular Respiratory: Yes: Diminished Gastrointestinal: Yes: Normal Bowel Sounds, Soft. No: Distention, Tenderness Extremities: Yes: Other (rt BKA left foot-- foul smell) Edema: No Labs: CBC, BMP 04/21/17 09:10 04/21/17 09:10 INR, PTT INR 1.50 (0.82-1.09) H 04/21/17 09:10 Problem List - Problems (1) Atrial fibrillation with RVR Code(s): I48.91 - UNSPECIFIED ATRIAL FIBRILLATION (2) Gangrene Code(s): I96 - GANGRENE, NOT ELSEWHERE CLASSIFIED (3) Sepsis Code(s): A41.9 - SEPSIS, UNSPECIFIED ORGANISM (4) NICHOLAS (acute kidney injury) Code(s): N17.9 - ACUTE KIDNEY FAILURE, UNSPECIFIED (5) CAD (coronary artery disease) Code(s): I25.10 - ATHSCL HEART DISEASE OF [place] CORONARY ARTERY W/O ANG PCTRS (6) NSTEMI (non-ST elevated myocardial infarction) Code(s): I21.4 - NON-ST ELEVATION (NSTEMI) MYOCARDIAL INFARCTION Assessment/Plan PLAN Sepsis --resolving -- iv antibiotics-- dc -- will need left BKA- family NOW consenting this time --possible next week Afib with RVR -- pt had recent Echo in December-- severe systolic dysfunction --on Coumadin-- will hold it for now , on Lovenox - in anticipation for surgery -- rate control with digoxin-- received IV Digoxin NSTEMI -- likely due to sepsis -- on Coumadin and plavix-- hold off Coumadin and Plavix Poor po intake -- severe dementia -- iv fluids -- GI eval for GT placement noted-- daughter willing- Shannan-- pt cleared medically for GT placement INR noted to be 1.5-- will give Vit K one dose DVT prophylaxis -- on coumadin -- on hold-- start Lovenox wrist restraints, mittens
[2017-04-21] MEDS ORDERED: PHYTONADIONE 10 MG/1 ML AMP SQ ONE (13:59)
--- NOTE | 2017-04-21 15:15 | PN ---
Progress Note (short form) - Note Progress Note: Vascular Surgery Pt seen and examined. Will need left bka when cleared. Pt going for peg james. can do surgery on thurs if cleared. Devan Kothari DO
[2017-04-21] MEDS ORDERED: INSULIN (NOVOLOG) ASPART 100 UNITS/ML 10ML VIAL ONE (17:50)
--- NOTE | 2017-04-21 18:51 | PN ---
GI Progress Note Subjective: restiing comfortably - Objective Vital Signs: Vital Signs Temperature 98.1 F 04/21/17 17:22 Pulse Rate 113 H 04/21/17 17:22 Respiratory Rate 20 04/21/17 17:22 Blood Pressure 126/63 04/21/17 17:22 O2 Sat by Pulse Oximetry (%) 97 04/21/17 09:00 Constitutional: No Distress Eyes: Yes: Conjunctiva Clear HENT: Yes: Normocephalic Cardiovascular: Yes: Pulse Irregular, Murmur Respiratory: Yes: CTA Bilaterally ...Palpate: Yes: Soft. No: Firm/Rigid, Guarding, Hepatomegaly, Mass, Pulsatile Mass, Splenomegaly, Tenderness Labs: CBC, BMP 04/21/17 09:10 04/21/17 09:10 INR, PTT INR 1.50 (0.82-1.09) H 04/21/17 09:10 Assessment/Plan Dysphagia/Failure to thrive R> Discussed procedure with his daughter Shannan, informed ocnsent obtained, risk including infection and unlikely fistula formation was discussed
[2017-04-22] MEDS: INSULIN SLIDING SCALE (NOVOLOG) 1 VIAL SQ SCH ×3 (06:25→17:51)
[2017-04-22] MEDS: morphine CARPU-JECT 2 MG/1 ML DISP.SYRIN IVPB PRN ×2 (07:59→22:24)
[2017-04-22] MEDS: DIGOXIN 0.125 MG TABLET (FP) PO SCH (09:52)
[2017-04-22] MEDS: AMINO ACIDS/PROTEIN HYDROLYS 30 ML LIQUID.PKT PO SCH ×2 (09:52→17:52)
[2017-04-22] MEDS: TAMSULOSIN HCL 0.4 MG CAP.ER.24H (FP) PO SCH (09:53)
[2017-04-22] MEDS: MULTIVITAMINS (DAILY MVI) TABLET (FP) PO SCH (09:53)
[2017-04-22] MEDS: ENOXAPARIN NA (PORCINE) 60 MG/0.6 ML DISP.SYRIN SQ SCH ×2 (09:53→22:10)
[2017-04-22] MEDS: CARVEDILOL 3.125 MG TABLET (FP) PO SCH ×2 (09:53→22:10)
[2017-04-22] MEDS: DEXTROSE 5%-NORMAL SALINE 1,000 ML IV SCH ×2 (09:53→16:10)
[2017-04-22] MEDS: DONEPEZIL HCL 10 MG TABLET (FP) PO SCH (09:53)
--- NOTE | 2017-04-22 10:08 | PN ---
Progress Note, Physician Chief Complaint: calm now - Current Medication List Current Medications: Active Medications Acetaminophen (Tylenol -) 650 mg PO Q6H PRN PRN Reason: FEVER Last Admin: 04/13/17 21:34 Dose: 650 mg Amino Acids (Prosource No Carb Liquid Pkt) 30 ml PO BID@0800,1730 [facility] Last Admin: 04/22/17 09:52 Dose: Not Given Carvedilol (Coreg -) 3.125 mg PO BID [facility] Last Admin: 04/22/17 09:53 Dose: 3.125 mg Digoxin (Lanoxin -) 0.125 mg PO DAILY [facility] Last Admin: 04/22/17 09:52 Dose: 0.125 mg Donepezil HCl (Aricept -) 10 mg PO DAILY [facility] Last Admin: 04/22/17 09:53 Dose: Not Given Enoxaparin Sodium (Lovenox -) 60 mg SQ BID [facility] Last Admin: 04/22/17 09:53 Dose: Not Given Fentanyl (Duragesic 12mcg Patch -) 1 patch TD Q72H [facility] Last Admin: 04/20/17 16:15 Dose: 1 patch Dextrose/Sodium Chloride (D5-Ns -) 1,000 mls @ 60 mls/hr IV ASDIR [facility] Last Admin: 04/22/17 09:53 Dose: 60 mls/hr Insulin Aspart (Novolog Vial Sliding Scale -) 1 vial SQ TIDAC [facility] PRN Reason: Protocol Last Admin: 04/22/17 06:25 Dose: Not Given Lorazepam (Ativan Injection -) 0.5 mg IVPUSH Q6H PRN PRN Reason: ANXIETY Last Admin: 04/19/17 18:13 Dose: 0.5 mg Miscellaneous (Duragesic Patch Waste) 1 each MC PRN PRN PRN Reason: PAIN Last Admin: 04/20/17 16:15 Dose: 1 each Morphine Sulfate (Morphine Injection -) 1 mg IVPB Q3H PRN Last Admin: 04/22/17 07:59 Dose: 1 mg Multivitamins/Minerals/Vitamin C (Tab-A-Vit -) 1 tab PO DAILY [facility] Last Admin: 04/22/17 09:53 Dose: Not Given Tamsulosin HCl (Flomax -) 0.4 mg PO DAILY@0830 [facility] Last Admin: 04/22/17 09:53 Dose: Not Given - Objective Vital Signs: Vital Signs Temperature 97.7 F 04/22/17 05:45 Pulse Rate 110 H 04/22/17 09:52 Respiratory Rate 18 04/22/17 05:45 Blood Pressure 126/75 04/22/17 05:45 O2 Sat by Pulse Oximetry (%) 97 04/21/17 21:00 Constitutional: Yes: No Distress, Calm Cardiovascular: Yes: Pulse Irregular Respiratory: Yes: Diminished Gastrointestinal: Yes: Normal Bowel Sounds, Soft. No: Distention, Tenderness Extremities: Yes: Other (left foot dressing in place-- foul smelling, r) Edema: No Labs: CBC, BMP 04/21/17 09:10 04/21/17 09:10 INR, PTT INR 1.50 (0.82-1.09) H 04/21/17 09:10 Problem List - Problems (1) Atrial fibrillation with RVR Code(s): I48.91 - UNSPECIFIED ATRIAL FIBRILLATION (2) Gangrene Code(s): I96 - GANGRENE, NOT ELSEWHERE CLASSIFIED (3) Sepsis Code(s): A41.9 - SEPSIS, UNSPECIFIED ORGANISM (4) NICHOLAS (acute kidney injury) Code(s): N17.9 - ACUTE KIDNEY FAILURE, UNSPECIFIED (5) CAD (coronary artery disease) Code(s): I25.10 - ATHSCL HEART DISEASE OF [place] CORONARY ARTERY W/O ANG PCTRS (6) NSTEMI (non-ST elevated myocardial infarction) Code(s): I21.4 - NON-ST ELEVATION (NSTEMI) MYOCARDIAL INFARCTION Assessment/Plan PLAN Sepsis --resolving -- iv antibiotics-- dc -- will need left BKA- family NOW consenting this time --this week Afib with RVR -- pt had recent Echo in December-- severe systolic dysfunction --on Coumadin-- will hold it for now , on Lovenox - in anticipation for surgery -- rate control with digoxin-- received IV Digoxin NSTEMI -- likely due to sepsis -- on Coumadin and plavix-- hold off Coumadin and Plavix Poor po intake -- severe dementia -- iv fluids -- GI eval for GT placement noted-- daughter willing- Shannan-- pt cleared medically for GT placement -- will undergo GT placement today DVT prophylaxis -- on coumadin -- on hold-- start Lovenox wrist restraints, mittens
--- NOTE | 2017-04-22 10:51 | PN ---
Progress Note (short form) - Note Progress Note: Resting in NAD. Confused. No acute events overnight. Intake & Output 04/19/17 04/20/17 04/21/17 04/22/17 23:59 23:59 23:59 23:59 Intake Total 439 621 9215 Output Total 300 450 500 100 Balance 334 394 8694 -100 Weight 140 lb 9.6 oz 142 lb 3.2 oz Last Vital Signs Temp Pulse Resp BP Pulse Ox 97.7 F 110 H 18 126/75 97 04/22/17 05:45 04/22/17 09:52 04/22/17 05:45 04/22/17 05:45 04/21/17 21:00 Active Medications Acetaminophen (Tylenol -) 650 mg PO Q6H PRN PRN Reason: FEVER Last Admin: 04/13/17 21:34 Dose: 650 mg Amino Acids (Prosource No Carb Liquid Pkt) 30 ml PO BID@0800,1730 [facility] Last Admin: 04/22/17 09:52 Dose: Not Given Carvedilol (Coreg -) 3.125 mg PO BID [facility] Last Admin: 04/22/17 09:53 Dose: 3.125 mg Digoxin (Lanoxin -) 0.125 mg PO DAILY [facility] Last Admin: 04/22/17 09:52 Dose: 0.125 mg Donepezil HCl (Aricept -) 10 mg PO DAILY [facility] Last Admin: 04/22/17 09:53 Dose: Not Given Enoxaparin Sodium (Lovenox -) 60 mg SQ BID [facility] Last Admin: 04/22/17 09:53 Dose: Not Given Fentanyl (Duragesic 12mcg Patch -) 1 patch TD Q72H [facility] Last Admin: 04/20/17 16:15 Dose: 1 patch Dextrose/Sodium Chloride (D5-Ns -) 1,000 mls @ 60 mls/hr IV ASDIR [facility] Last Admin: 04/22/17 09:53 Dose: 60 mls/hr Insulin Aspart (Novolog Vial Sliding Scale -) 1 vial SQ TIDAC [facility] PRN Reason: Protocol Last Admin: 04/22/17 06:25 Dose: Not Given Lorazepam (Ativan Injection -) 0.5 mg IVPUSH Q6H PRN PRN Reason: ANXIETY Last Admin: 04/19/17 18:13 Dose: 0.5 mg Miscellaneous (Duragesic Patch Waste) 1 each MC PRN PRN PRN Reason: PAIN Last Admin: 04/20/17 16:15 Dose: 1 each Morphine Sulfate (Morphine Injection -) 1 mg IVPB Q3H PRN Last Admin: 04/22/17 07:59 Dose: 1 mg Multivitamins/Minerals/Vitamin C (Tab-A-Vit -) 1 tab PO DAILY [facility] Last Admin: 04/22/17 09:53 Dose: Not Given Tamsulosin HCl (Flomax -) 0.4 mg PO DAILY@0830 [facility] Last Admin: 04/22/17 09:53 Dose: Not Given Constitutional: Yes: No Distress, confused Cardiovascular: Yes: Pulse Irregular Respiratory: Yes: Diminished Gastrointestinal: Yes: Normal Bowel Sounds, Soft. No: Tenderness Extremities: Yes: Other (right BKA) Edema: No Labs: Laboratory Results - last 24 hr 04/21/17 04/21/17 04/21/17 09:10 12:05 17:18 PT with INR 16.60 H INR 1.50 H POC Glucometer 121 135 04/21/17 04/22/17 23:06 05:30 PT with INR INR POC Glucometer 122 125 Problem List - Problems (1) Atrial fibrillation with RVR Code(s): I48.91 - UNSPECIFIED ATRIAL FIBRILLATION (2) Gangrene Code(s): I96 - GANGRENE, NOT ELSEWHERE CLASSIFIED (3) Sepsis Code(s): A41.9 - SEPSIS, UNSPECIFIED ORGANISM (4) NICHOLAS (acute kidney injury) Code(s): N17.9 - ACUTE KIDNEY FAILURE, UNSPECIFIED (5) CAD (coronary artery disease) Code(s): I25.10 - ATHSCL HEART DISEASE OF [place] CORONARY ARTERY W/O ANG PCTRS (6) NSTEMI (non-ST elevated myocardial infarction) Code(s): I21.4 - NON-ST ELEVATION (NSTEMI) MYOCARDIAL INFARCTION Assessment/Plan Currently off ABX O2 as needed only Lovenox BID Consideration for Left BKA IVF For PEG placement Dr Qureshi
[2017-04-22] MEDS ORDERED: FENTANYL PATCH WASTE MC PRN (15:26)
[2017-04-22] MEDS ORDERED: ACETAMINOPHEN 325 MG TABLET (FP) PO PRN (15:26)
[2017-04-22] MEDS ORDERED: FENTANYL PATCH WASTE TD PRN (15:26)
--- NOTE | 2017-04-22 19:00 | PN ---
Progress Note (short form) - Note Progress Note: Vascular Surgery S/P peg. Will do left BKA on . PLease medcially clear for procedure. coumadin on hold. Devan Kothari DO
[2017-04-23] MEDS: INSULIN SLIDING SCALE (NOVOLOG) 1 VIAL SQ SCH ×3 (06:42→17:29)
--- NOTE | 2017-04-23 07:04 | PN ---
Progress Note, Physician Chief Complaint: Pt lying in bed; little response to verbal queries or tactile stimuli. History of Present Illness: 77 y/o man (b. [place]), with a PMHx of Alzheimer's, severe systolic CHF, s/p NSTEMI 2017, HLD, NIDDM, and HTN, chronic foot ulcers and gangrene, presents to the ED via EMS from [facility] with change in mental status and foul smelling foot ulcers. Per CT records, patient has an elevated WBC. - Current Medication List Current Medications: Active Medications Acetaminophen (Tylenol -) 650 mg PO Q6H PRN PRN Reason: FEVER Amino Acids (Prosource No Carb Liquid Pkt) 30 ml PO BID@0800,1730 [facility] Last Admin: 04/22/17 17:52 Dose: 30 ml Carvedilol (Coreg -) 3.125 mg PO BID [facility] Last Admin: 04/22/17 22:10 Dose: 3.125 mg Digoxin (Lanoxin -) 0.125 mg PO DAILY [facility] Donepezil HCl (Aricept -) 10 mg PO DAILY [facility] Enoxaparin Sodium (Lovenox -) 60 mg SQ BID [facility] Last Admin: 04/22/17 22:10 Dose: 60 mg Fentanyl (Duragesic 12mcg Patch -) 1 patch TD Q72H [facility] Dextrose/Sodium Chloride (D5-Ns -) 1,000 mls @ 60 mls/hr IV ASDIR [facility] Last Admin: 04/22/17 16:10 Dose: Not Given Insulin Aspart (Novolog Vial Sliding Scale -) 1 vial SQ TIDAC [facility] PRN Reason: Protocol Last Admin: 04/23/17 06:42 Dose: 2 unit Miscellaneous (Duragesic Patch Waste) 1 each TD PRN PRN PRN Reason: PAIN Morphine Sulfate (Morphine Injection -) 1 mg IVPB Q3H PRN PRN Reason: PAIN Last Admin: 04/22/17 22:24 Dose: 1 mg Multivitamins/Minerals/Vitamin C (Tab-A-Vit -) 1 tab PO DAILY [facility] Tamsulosin HCl (Flomax -) 0.4 mg PO DAILY@0830 [facility] - Objective Vital Signs: Vital Signs Temperature 98.3 F 04/23/17 02:10 Pulse Rate 125 H 04/23/17 02:10 Respiratory Rate 18 04/23/17 02:10 Blood Pressure 124/74 10/11/17 02:10 O2 Sat by Pulse Oximetry (%) 97 04/22/17 21:00 Constitutional: Yes: Thin Eyes: Yes: WNL HENT: Yes: WNL Neck: Yes: WNL Cardiovascular: Yes: Pulse Irregular Respiratory: Yes: Diminished Gastrointestinal: Yes: Soft ...Rectal Exam: Yes: Deferred Genitourinary: No: Anuria Musculoskeletal: Yes: Muscle Weakness Extremities: Yes: Cold Edema: No Peripheral Pulses WNL: No Peripheral Pulses: Left Doralis Pedis: 1+, Right Dorsalis Pedis: 1+ Integumentary: No: Other (s/p Rt BKA; gangrenous Lt foot) Psychiatric: Yes: Other (dementia) Labs: CBC, BMP 04/21/17 09:10 04/21/17 09:10 INR, PTT INR 1.50 (0.82-1.09) H 04/21/17 09:10 Problem List - Problems (1) Atrial fibrillation with RVR Assessment/Plan: Continue carvedilol. Wafarin held; use IV heparin or Lovenox until can restart warfarin after planned left foot amputation. May continue clopidogrel (hx recent NSTEMI) if no bleeding. Pain management. Code(s): I48.91 - UNSPECIFIED ATRIAL FIBRILLATION (2) Gangrene Assessment/Plan: s/p BKA right foot. Left foot gangrene of toes;for BKA this week. For GT insertion today. From a cardiac standpoint, there are no absolute contraindications for Mr. Merrill to undergo left BKA, particularly given lack of alternatives to definitive treatment of this condition and its dire consequences if left as is. On Lovenox. Code(s): I96 - GANGRENE, NOT ELSEWHERE CLASSIFIED (3) Sepsis Assessment/Plan: off antibiotics. Leukocytosis; afebrile. gangrenous left foot. IV Fluids; watch weight, Is and Os, respiratory status carefully for volume overload (severe sytolic LV dysfunction). Code(s): A41.9 - SEPSIS, UNSPECIFIED ORGANISM (4) Acute on chronic systolic (congestive) heart failure Assessment/Plan: Pt is on beta blockers (attempt to give [id number] for better efficacy); overall benefit still likely, despite controversy when used with systolic CHF + AF; keep resting HR >90<110 bpm. Problematic using ACEI or spironolactone with present low BP. Code(s): I50.23 - ACUTE ON CHRONIC SYSTOLIC (CONGESTIVE) HEART FAILURE (5) Aortic stenosis Assessment/Plan: moderately severe on recent ECHO; may be underestimated because of severe LV dysfunction. Code(s): I35.0 - NONRHEUMATIC AORTIC (VALVE) STENOSIS (6) Dementia Code(s): F03.90 - UNSPECIFIED DEMENTIA WITHOUT BEHAVIORAL DISTURBANCE (7) Hyperlipidemia Code(s): E78.5 - HYPERLIPIDEMIA, UNSPECIFIED (8) HTN (hypertension) Assessment/Plan: medications held (except carvedilol) due to periods of borderline hypotension. Code(s): I10 - ESSENTIAL (PRIMARY) HYPERTENSION (9) Normocytic anemia Code(s): D64.9 - ANEMIA, UNSPECIFIED (10) Elevated troponin Assessment/Plan: Hx NSTEMI earlier this year. Present elevation with demand ischemia, sepsis, acute CHF. Code(s): R74.8 - ABNORMAL LEVELS OF OTHER SERUM ENZYMES (11) Elevated LFTs Assessment/Plan: improving LFTS, though ALT still elevated. Code(s): R79.89 - OTHER SPECIFIED ABNORMAL FINDINGS OF BLOOD CHEMISTRY (12) Hypoalbuminemia Assessment/Plan: deconditioned state; sepsis; poor nutrition. Code(s): E88.09 - OTH DISORDERS OF PLASMA-PROTEIN METABOLISM, NEC
[2017-04-23] MEDS: AMINO ACIDS/PROTEIN HYDROLYS 30 ML LIQUID.PKT PO SCH ×2 (08:42→17:31)
[2017-04-23] MEDS: morphine CARPU-JECT 2 MG/1 ML DISP.SYRIN IVPB PRN ×2 (08:43→12:05)
[2017-04-23] MEDS: TAMSULOSIN HCL 0.4 MG CAP.ER.24H (FP) PO SCH (08:43)
[2017-04-23] MEDS: ENOXAPARIN NA (PORCINE) 60 MG/0.6 ML DISP.SYRIN SQ SCH (09:27)
[2017-04-23] MEDS: DIGOXIN 0.125 MG TABLET (FP) PO SCH (09:28)
[2017-04-23] MEDS: CARVEDILOL 3.125 MG TABLET (FP) PO SCH ×2 (09:28→21:38)
[2017-04-23] MEDS: DONEPEZIL HCL 10 MG TABLET (FP) PO SCH (09:29)
[2017-04-23] MEDS: DEXTROSE 5%-NORMAL SALINE 1,000 ML IV SCH ×2 (09:30→17:22)
[2017-04-23] MEDS ORDERED: MULTIVITAMINS (DAILY MVI) TABLET (FP) PO SCH (10:00)
--- NOTE | 2017-04-23 10:23 | PN ---
Progress Note, Physician Chief Complaint: calm now restrained with mittens But does start punching when leg is moved s/p peg tube placement - Current Medication List Current Medications: Active Medications Acetaminophen (Tylenol -) 650 mg PO Q6H PRN PRN Reason: FEVER Amino Acids (Prosource No Carb Liquid Pkt) 30 ml PO BID@0800,1730 [facility] Last Admin: 04/23/17 08:42 Dose: 30 ml Carvedilol (Coreg -) 3.125 mg PO BID [facility] Last Admin: 04/23/17 09:28 Dose: 3.125 mg Digoxin (Lanoxin -) 0.125 mg PO DAILY [facility] Last Admin: 04/23/17 09:28 Dose: 0.125 mg Donepezil HCl (Aricept -) 10 mg PO DAILY [facility] Last Admin: 04/23/17 09:29 Dose: 10 mg Enoxaparin Sodium (Lovenox -) 60 mg SQ BID [facility] Last Admin: 04/23/17 09:27 Dose: 60 mg Fentanyl (Duragesic 12mcg Patch -) 1 patch TD Q72H [facility] Dextrose/Sodium Chloride (D5-Ns -) 1,000 mls @ 60 mls/hr IV ASDIR [facility] Last Admin: 04/23/17 09:30 Dose: 60 mls/hr Insulin Aspart (Novolog Vial Sliding Scale -) 1 vial SQ TIDAC [facility] PRN Reason: Protocol Last Admin: 04/23/17 06:42 Dose: 2 unit Miscellaneous (Duragesic Patch Waste) 1 each TD PRN PRN PRN Reason: PAIN Morphine Sulfate (Morphine Injection -) 1 mg IVPB Q3H PRN PRN Reason: PAIN Last Admin: 04/23/17 08:43 Dose: 1 mg Multivitamins/Minerals/Vitamin C (Tab-A-Vit -) 1 tab PO DAILY [facility] Tamsulosin HCl (Flomax -) 0.4 mg PO DAILY@0830 [facility] Last Admin: 04/23/17 08:43 Dose: 0.4 mg - Objective Vital Signs: Vital Signs Temperature 97.8 F 04/23/17 09:51 Pulse Rate 113 H 04/23/17 09:51 Respiratory Rate 20 04/23/17 06:00 Blood Pressure 132/78 04/23/17 09:51 O2 Sat by Pulse Oximetry (%) 97 04/22/17 21:00 Constitutional: Yes: No Distress Cardiovascular: Yes: Pulse Irregular Respiratory: Yes: Diminished Gastrointestinal: Yes: Normal Bowel Sounds, Soft. No: Tenderness Extremities: Yes: Other (Right BKA, left foot dressing in place) Edema: No Labs: CBC, BMP 04/21/17 09:10 04/21/17 09:10 INR, PTT INR 1.50 (0.82-1.09) H 04/21/17 09:10 Problem List - Problems (1) Atrial fibrillation with RVR Code(s): I48.91 - UNSPECIFIED ATRIAL FIBRILLATION (2) Gangrene Code(s): I96 - GANGRENE, NOT ELSEWHERE CLASSIFIED (3) Sepsis Code(s): A41.9 - SEPSIS, UNSPECIFIED ORGANISM (4) NICHOLAS (acute kidney injury) Code(s): N17.9 - ACUTE KIDNEY FAILURE, UNSPECIFIED (5) CAD (coronary artery disease) Code(s): I25.10 - ATHSCL HEART DISEASE OF [place] CORONARY ARTERY W/O ANG PCTRS (6) NSTEMI (non-ST elevated myocardial infarction) Code(s): I21.4 - NON-ST ELEVATION (NSTEMI) MYOCARDIAL INFARCTION Assessment/Plan PLAN Sepsis --resolving -- iv antibiotics-- dc -- will need left BKA- family NOW consenting this time --scheduled for tomorrow -- keep NPO , hold GT feeds at midnight Afib with RVR -- pt had recent Echo in December-- severe systolic dysfunction --on Coumadin-- will hold it for now , on Lovenox - in anticipation for surgery -- rate control with digoxin-- received IV Digoxin NSTEMI -- likely due to sepsis -- on Coumadin and plavix-- hold off Coumadin and Plavix Poor po intake -- severe dementia -- iv fluids -- s/p GT placement -- on feeds now-- tolerating it DVT prophylaxis -- on coumadin -- on hold-- start Lovenox hold Lovenox on day of surgery wrist restraints, mittens
--- NOTE | 2017-04-23 10:42 | PN ---
Progress Note (short form) - Note Progress Note: Vascular Surgery Pt seen and examined. For left donald ramirez. NPO past midnight. Devan Kothari DO
[2017-04-23] MEDS ORDERED: LORazepam 2 MG/ML SDV VIAL IVPUSH PRN (12:08)
[2017-04-23] MEDS ORDERED: fentaNYL 12mcg/hr PATCH.TD72 TD SCH (15:30)
[2017-04-24] MEDS: DEXTROSE 5%-NORMAL SALINE 1,000 ML IV SCH (01:57)
[2017-04-24] MEDS: INSULIN SLIDING SCALE (NOVOLOG) 1 VIAL SQ SCH ×2 (06:55→12:35)
[2017-04-24] MEDS: morphine CARPU-JECT 2 MG/1 ML DISP.SYRIN IVPB PRN (08:36)
--- NOTE | 2017-04-24 08:53 | PN ---
Progress Note (short form) - Note Progress Note: NAD Confused. No acute events overnight. For OR today. Intake & Output 04/21/17 04/22/17 04/23/17 04/24/17 23:59 23:59 23:59 23:59 Intake Total 1830 1280 2330 420 Output Total 500 400 530 450 Balance 9755 109 0825 -30 Weight 142 lb 3.2 oz Last Vital Signs Temp Pulse Resp BP Pulse Ox 98 F 121 H 20 144/77 97 04/23/17 22:00 04/24/17 06:00 04/24/17 06:00 04/24/17 06:00 04/22/17 21:00 Active Medications Acetaminophen (Tylenol -) 650 mg PO Q6H PRN PRN Reason: FEVER Amino Acids (Prosource No Carb Liquid Pkt) 30 ml PO BID@0800,1730 [facility] Last Admin: 04/23/17 17:31 Dose: 30 ml Carvedilol (Coreg -) 3.125 mg PO BID [facility] Last Admin: 04/23/17 21:38 Dose: 3.125 mg Digoxin (Lanoxin -) 0.125 mg PO DAILY [facility] Last Admin: 04/23/17 09:28 Dose: 0.125 mg Donepezil HCl (Aricept -) 10 mg PO DAILY [facility] Last Admin: 04/23/17 09:29 Dose: 10 mg Fentanyl (Duragesic 12mcg Patch -) 1 patch TD Q72H [facility] Last Admin: 04/23/17 15:27 Dose: 1 patch Dextrose/Sodium Chloride (D5-Ns -) 1,000 mls @ 60 mls/hr IV ASDIR [facility] Last Admin: 04/24/17 01:57 Dose: 60 mls/hr Insulin Aspart (Novolog Vial Sliding Scale -) 1 vial SQ TIDAC [facility] PRN Reason: Protocol Last Admin: 04/24/17 06:55 Dose: Not Given Lorazepam (Ativan Injection -) 0.5 mg IVPUSH TID PRN PRN Reason: ANXIETY Miscellaneous (Duragesic Patch Waste) 1 each TD PRN PRN PRN Reason: PAIN Morphine Sulfate (Morphine Injection -) 1 mg IVPB Q3H PRN PRN Reason: PAIN Last Admin: 04/24/17 08:36 Dose: 1 mg Tamsulosin HCl (Flomax -) 0.4 mg PO DAILY@0830 [facility] Last Admin: 04/23/17 08:43 Dose: 0.4 mg Constitutional: Yes: No Distress, confused Cardiovascular: Yes: Pulse Irregular Respiratory: Yes: Diminished Gastrointestinal: Yes: Normal Bowel Sounds, Soft. No: Tenderness Extremities: Yes: Other (right BKA) Edema: No Labs: Laboratory Results - last 24 hr 04/23/17 04/23/17 04/23/17 10:50 12:39 17:20 POC Glucometer 92 91 Blood Type AB NEGATIVE Antibody Screen Negative Crossmatch See Detail 04/23/17 04/24/17 21:02 06:03 POC Glucometer 109 144 Blood Type Antibody Screen Crossmatch Problem List - Problems (1) Atrial fibrillation with RVR Code(s): I48.91 - UNSPECIFIED ATRIAL FIBRILLATION (2) Gangrene Code(s): I96 - GANGRENE, NOT ELSEWHERE CLASSIFIED (3) Sepsis Code(s): A41.9 - SEPSIS, UNSPECIFIED ORGANISM (4) NICHOLAS (acute kidney injury) Code(s): N17.9 - ACUTE KIDNEY FAILURE, UNSPECIFIED (5) CAD (coronary artery disease) Code(s): I25.10 - ATHSCL HEART DISEASE OF [place] CORONARY ARTERY W/O ANG PCTRS (6) NSTEMI (non-ST elevated myocardial infarction) Code(s): I21.4 - NON-ST ELEVATION (NSTEMI) MYOCARDIAL INFARCTION Assessment/Plan For OR today O2 as needed only Lovenox held No Pulmonary contraindication for anticipated surgical procedure Dr Qureshi
[2017-04-24] MEDS: TAMSULOSIN HCL 0.4 MG CAP.ER.24H (FP) PO SCH (09:56)
[2017-04-24] MEDS: AMINO ACIDS/PROTEIN HYDROLYS 30 ML LIQUID.PKT PO SCH (09:56)
[2017-04-24] MEDS: DONEPEZIL HCL 10 MG TABLET (FP) PO SCH (09:56)
[2017-04-24] MEDS ORDERED: MULTIVIT-MINERALS 236 ML ML PO SCH (10:00)
[2017-04-24] MEDS: DIGOXIN 0.125 MG TABLET (FP) PO SCH (10:02)
[2017-04-24] MEDS: CARVEDILOL 3.125 MG TABLET (FP) PO SCH ×2 (10:03→22:20)
--- NOTE | 2017-04-24 10:12 | PN ---
Progress Note, Physician Chief Complaint: calm NPO , awaiting surgery - Current Medication List Current Medications: Active Medications Acetaminophen (Tylenol -) 650 mg PO Q6H PRN PRN Reason: FEVER Amino Acids (Prosource No Carb Liquid Pkt) 30 ml PO BID@0800,1730 [facility] Last Admin: 04/24/17 09:56 Dose: Not Given Carvedilol (Coreg -) 3.125 mg PO BID [facility] Last Admin: 04/24/17 10:03 Dose: 3.125 mg Digoxin (Lanoxin -) 0.125 mg PO DAILY [facility] Last Admin: 04/24/17 10:02 Dose: 0.125 mg Donepezil HCl (Aricept -) 10 mg PO DAILY [facility] Last Admin: 04/24/17 09:56 Dose: Not Given Fentanyl (Duragesic 12mcg Patch -) 1 patch TD Q72H [facility] Last Admin: 04/23/17 15:27 Dose: 1 patch Dextrose/Sodium Chloride (D5-Ns -) 1,000 mls @ 60 mls/hr IV ASDIR [facility] Last Admin: 04/24/17 01:57 Dose: 60 mls/hr Insulin Aspart (Novolog Vial Sliding Scale -) 1 vial SQ TIDAC [facility] PRN Reason: Protocol Last Admin: 04/24/17 06:55 Dose: Not Given Lorazepam (Ativan Injection -) 0.5 mg IVPUSH TID PRN PRN Reason: ANXIETY Miscellaneous (Duragesic Patch Waste) 1 each TD PRN PRN PRN Reason: PAIN Morphine Sulfate (Morphine Injection -) 1 mg IVPB Q3H PRN PRN Reason: PAIN Last Admin: 04/24/17 08:36 Dose: 1 mg Tamsulosin HCl (Flomax -) 0.4 mg PO DAILY@0830 [facility] Last Admin: 04/24/17 09:56 Dose: Not Given - Objective Vital Signs: Vital Signs Temperature 98 F 04/23/17 22:00 Pulse Rate 90 04/24/17 10:02 Respiratory Rate 20 04/24/17 06:00 Blood Pressure 144/77 04/24/17 06:00 O2 Sat by Pulse Oximetry (%) 97 04/22/17 21:00 Constitutional: Yes: No Distress, Calm Cardiovascular: Yes: Pulse Irregular Respiratory: Yes: Diminished Gastrointestinal: Yes: Normal Bowel Sounds, Soft, Other (GT+). No: Distention, Tenderness Extremities: Yes: Other (left foot dressing, foul smelling. Rt BKA) Edema: No Labs: CBC, BMP 04/21/17 09:10 04/21/17 09:10 INR, PTT INR 1.50 (0.82-1.09) H 04/21/17 09:10 Problem List - Problems (1) Atrial fibrillation with RVR Code(s): I48.91 - UNSPECIFIED ATRIAL FIBRILLATION (2) Gangrene Code(s): I96 - GANGRENE, NOT ELSEWHERE CLASSIFIED (3) Sepsis Code(s): A41.9 - SEPSIS, UNSPECIFIED ORGANISM (4) NICHOLAS (acute kidney injury) Code(s): N17.9 - ACUTE KIDNEY FAILURE, UNSPECIFIED (5) CAD (coronary artery disease) Code(s): I25.10 - ATHSCL HEART DISEASE OF [place] CORONARY ARTERY W/O ANG PCTRS (6) NSTEMI (non-ST elevated myocardial infarction) Code(s): I21.4 - NON-ST ELEVATION (NSTEMI) MYOCARDIAL INFARCTION Assessment/Plan PLAN Sepsis --resolving -- iv antibiotics-- dc -- will need left BKA- family NOW consenting this time --scheduled for todat -- keep NPO , GT feeds on hold -- pt is cleared for surgery Afib with RVR -- pt had recent Echo in December-- severe systolic dysfunction --on Coumadin-- will hold it for now , on Lovenox - in anticipation for surgery -- Lovenox held this AM -- rate control with digoxin-- received IV Digoxin NSTEMI -- likely due to sepsis -- on Coumadin and plavix-- hold off Coumadin and Plavix for surgery Poor po intake -- severe dementia -- iv fluids -- s/p GT placement DVT prophylaxis -- Lovenox hold Lovenox on day of surgery faith garcia
[2017-04-24] MEDS ORDERED: PROPOFOL 20 ML ONE (15:42)
[2017-04-24] MEDS ORDERED: PHENYLEPHRINE HCL 10 MG/1 ML SINGLE DOSE VIAL ONE (15:43)
[2017-04-24] MEDS ORDERED: ePHEDrine SULFATE 50 MG/1 ML AMPULE ONE (15:48)
[2017-04-24] MEDS ORDERED: ceFAZolin SODIUM 1 GM VIAL ONE (16:10)
[2017-04-24] MEDS ORDERED: ceFAZolin SODIUM 1 GM VIAL IVPB ONE (16:25)
[2017-04-24] MEDS ORDERED: HYDROmorphone HCL CARPU-JECT 1 MG/1 ML DISP.SYRIN IVPUSH PRN (17:21)
--- NOTE | 2017-04-24 17:21 | OP ---
Operative Note - Note: Operative Date: 04/24/17 Pre-Operative Diagnosis: left foot gangrene Operation: left below the knee amputation Post-Operative Diagnosis: Same as Pre-op Surgeon: Devan Kothari [employer] Driver: Jaxon Fong Anesthesia: General Estimated Blood Loss (mls): 75 Operative Report Dictated: Yes
--- NOTE | 2017-04-24 17:29 | SURG ---
Surgery Consultative Sales Associate Note Consultative Sales Associate: Jaxon Fong PA-C Date of Service: 04/24/17 Diagnosis: left foot gangrene Procedure: Left below the knee amputation I was present for the entirety of the operative procedure. For further detail, please refer to operative report. Visit type - Case Type Case Type: ED Admission
[2017-04-24] MEDS ORDERED: morphine CARPU-JECT 4 MG/1 ML DISP.SYRIN IVPUSH PRN (17:34)
[2017-04-24] MEDS ORDERED: FENTANYL PATCH WASTE TD PRN (17:44)
[2017-04-24] MEDS ORDERED: FENTANYL PATCH WASTE MC PRN (17:44)
[2017-04-24] MEDS ORDERED: DEXTROSE 5%-NORMAL SALINE 1,000 ML IV SCH (17:44)
[2017-04-24] MEDS ORDERED: LORazepam 2 MG/ML SDV VIAL IVPUSH PRN (17:44)
[2017-04-24] MEDS ORDERED: ACETAMINOPHEN 325 MG TABLET (FP) PO PRN (17:44)
[2017-04-24] MEDS ORDERED: HYDROmorphone HCL CARPU-JECT 2 MG/1 ML DISP.SYRIN ONE (17:45)
[2017-04-24] MEDS ORDERED: HYDROmorphone HCL CARPU-JECT 2 MG/1 ML DISP.SYRIN IVPUSH ONE ×2 (17:48→18:00)
[2017-04-25] MEDS: INSULIN SLIDING SCALE (NOVOLOG) 1 VIAL SQ SCH ×4 (08:02→17:36)
[2017-04-25] MEDS: AMINO ACIDS/PROTEIN HYDROLYS 30 ML LIQUID.PKT PO SCH ×3 (08:03→18:04)
[2017-04-25] MEDS: DEXTROSE 5%-NORMAL SALINE 1,000 ML IV SCH (08:03)
--- NOTE | 2017-04-25 09:12 | PN ---
Progress Note (short form) - Note Progress Note: Anesthesia POD#1 S/P Left BKA under GA Doing well,calmer now,no c/o pain. No N/V No complications to anesthesia seen Kamala Vyas MD.
[2017-04-25] MEDS ORDERED: PT OWN MED DRAWER 7, Y5N ONE (09:16)
[2017-04-25] MEDS: DONEPEZIL HCL 10 MG TABLET (FP) PO SCH (09:28)
[2017-04-25] MEDS: CARVEDILOL 3.125 MG TABLET (FP) PO SCH ×2 (09:28→21:21)
[2017-04-25] MEDS: DIGOXIN 0.125 MG TABLET (FP) PO SCH (09:28)
[2017-04-25] MEDS: TAMSULOSIN HCL 0.4 MG CAP.ER.24H (FP) PO SCH (09:28)
[2017-04-25] MEDS: MULTIVIT-MINERALS 236 ML ML PO SCH (09:29)
--- NOTE | 2017-04-25 12:51 | PN ---
Progress Note (short form) - Note Progress Note: pt seen/ examined chart reviewed awake/ confused chronic ill appearance Vital Signs Temp 98.5 F 04/25/17 10:00 Pulse 96 H 04/25/17 10:00 Resp 18 04/25/17 10:00 BP 111/65 04/25/17 10:00 Pulse Ox 98 04/24/17 21:00 Intake & Output 04/24/17 04/25/17 04/25/17 23:59 11:59 23:59 Intake Total 1630 590 Output Total 275 100 Balance 1355 490 Intake: IV 1630 500 D5-Ns - 1,000 ml @ 60 mls 480 /hr IV ASDIR [facility] Rx#: [id number] D5-Ns - 1,000 ml @ 60 mls 500 /hr IV ASDIR [facility] Rx#: [id number] Oral 0 Tube Feeding 90 Output: Urine 200 100 [place] 100 100 Estimated Blood Loss 75 Other: Voiding Method Indwelling Catheter Indwelling Catheter Bowel Movement No Active Medications Acetaminophen (Tylenol -) 650 mg PO Q6H PRN PRN Reason: FEVER Amino Acids (Prosource No Carb Liquid Pkt) 30 ml PO BID@0800,1730 [facility] Last Admin: 04/25/17 09:28 Dose: 30 ml Carvedilol (Coreg -) 3.125 mg PO BID [facility] Last Admin: 04/25/17 09:28 Dose: 3.125 mg Digoxin (Lanoxin -) 0.125 mg PO DAILY [facility] Last Admin: 04/25/17 09:28 Dose: 0.125 mg Donepezil HCl (Aricept -) 10 mg PO DAILY [facility] Last Admin: 04/25/17 09:28 Dose: 10 mg Fentanyl (Duragesic 12mcg Patch -) 1 patch TD Q72H [facility] Furosemide (Lasix Injection -) 20 mg IVPUSH DAILY [facility] Hydromorphone HCl (Dilaudid Injection -) 1 mg IVPUSH [id number] PRN PRN Reason: PAIN Stop: 04/27/17 17:22 Insulin Aspart (Novolog Vial Sliding Scale -) 1 vial SQ TIDAC [facility] PRN Reason: Protocol Last Admin: 04/25/17 11:21 Dose: Not Given Lorazepam (Ativan Injection -) 0.5 mg IVPUSH TID PRN PRN Reason: ANXIETY Last Admin: 04/25/17 09:29 Dose: 0.5 mg Miscellaneous (Duragesic Patch Waste) 1 each TD PRN PRN PRN Reason: PAIN Morphine Sulfate (Morphine Injection -) 4 mg IVPUSH Q4H PRN PRN Reason: PAIN Morphine Sulfate (Morphine Injection -) 1 mg IVPB Q3H PRN PRN Reason: PAIN Tamsulosin HCl (Flomax -) 0.4 mg PO DAILY@0830 [facility] Last Admin: 04/25/17 09:28 Dose: 0.4 mg Warfarin Sodium (Coumadin -) 5 mg PO DAILY@1800 [facility] CBC, BMP 04/21/17 09:10 04/21/17 09:10 INR, PTT INR 1.50 (0.82-1.09) H 04/21/17 09:10 Physical Exam Constitutional: Yes: No Distress, Calm Cardiovascular: Yes: Pulse Irregular Respiratory: Yes: Diminished at bases Gastrointestinal: Yes: Normal Bowel Sounds, Soft, Other (GT+). No: Distention, Tenderness Extremities: Yes: Other s/p left bka- dressing + Rt BKA) Edema: yes - arms Problem List - Problems (1) Atrial fibrillation with RVR Code(s): I48.91 - UNSPECIFIED ATRIAL FIBRILLATION (2) Gangrene Code(s): I96 - GANGRENE, NOT ELSEWHERE CLASSIFIED (3) Sepsis Code(s): A41.9 - SEPSIS, UNSPECIFIED ORGANISM (4) NICHOLAS (acute kidney injury) Code(s): N17.9 - ACUTE KIDNEY FAILURE, UNSPECIFIED (5) CAD (coronary artery disease) Code(s): I25.10 - ATHSCL HEART DISEASE OF [place] CORONARY ARTERY W/O ANG PCTRS (6) NSTEMI (non-ST elevated myocardial infarction) Code(s): I21.4 - NON-ST ELEVATION (NSTEMI) MYOCARDIAL INFARCTION Assessment/Plan s/p left bka-pod #1 continue present care pain control meds reviewed f/u labs restart coumadin -when cleared by surgery d/c fluids start on lasix cxr will follow
[2017-04-25] MEDS: FUROSEMIDE 40 MG/4 ML INJECTABLE VIAL IVPUSH SCH (12:58)
[2017-04-25] MEDS: morphine CARPU-JECT 2 MG/1 ML DISP.SYRIN IVPB PRN ×3 (12:59→21:38)
[2017-04-25 13:14] LABS: BASOPHIL 0.1 % (0-2.0); EOSINOPHIL 0.3 % (0-4.5); MCH 26.2 pg (25.7-33.7); MCHC 30.7 g/dl (32.0-35.9); MEAN CELL VOLUME 85.1 fl (80-96); MEAN PLT VOLUME 7.7 fl (7.5-11.1); PLATELET COUNT 322 K/MM3 (134-434); RDW 20.8 % (11.9-15.9); WHITE BLOOD COUNT 8.1 K/mm3 (4.0-10.0)
[2017-04-25 13:31] LABS: ALBUMIN 1.2 g/dl (3.4-5.0); ALK PHOS 87 U/L (45-117); ANION GAP 9 (8-16); BILIRUBIN,TOTAL 0.5 mg/dL (0.2-1.0); CALCIUM 7.9 mg/dL (8.5-10.1); CO2 26 mmol/L (21-32); CREATININE 0.6 mg/dL (0.7-1.3); GLUCOSE,RANDOM 115 mg/dL (74-106); SGOT/AST 14 U/L (15-37); SGPT/ALT 26 U/L (12-78); TOT PROT 5.3 g/dl (6.4-8.2)
[2017-04-25 15:43] LABS: HYPOCHROMIA 2+
[2017-04-25 15:44] LABS: ANISOCYTOSIS 2+; MICROCYTOSIS 2+; TARGET CELLS 2+
[2017-04-25 17:50] LABS: INR 1.35 (0.82-1.09); PROTHROMBIN TIME (PATIENT) 15.3 SEC (9.98-11.88)
[2017-04-25] MEDS: WARFARIN NA 5 MG TABLET (UD) PO SCH (18:03)
[2017-04-26] MEDS: morphine CARPU-JECT 2 MG/1 ML DISP.SYRIN IVPB PRN (02:48)
--- NOTE | 2017-04-26 04:12 | PN ---
Progress Note, Physician Chief Complaint: Pt lying in bed; does not follow verbal commands History of Present Illness: 77 y/o man (b. [place]), with a PMHx of Alzheimer's, severe systolic CHF, s/p NSTEMI 2017, HLD, NIDDM, and HTN, chronic foot ulcers and gangrene, presents to the ED via EMS from [facility] with change in mental status and foul smelling foot ulcers. Per [place] records, patient has an elevated WBC. - Current Medication List Current Medications: Active Medications Acetaminophen (Tylenol -) 650 mg PO Q6H PRN PRN Reason: FEVER Amino Acids (Prosource No Carb Liquid Pkt) 30 ml PO BID@0800,1730 [facility] Last Admin: 04/25/17 18:04 Dose: 30 ml Carvedilol (Coreg -) 3.125 mg PO BID [facility] Last Admin: 04/25/17 21:21 Dose: 3.125 mg Digoxin (Lanoxin -) 0.125 mg PO DAILY [facility] Last Admin: 04/25/17 09:28 Dose: 0.125 mg Donepezil HCl (Aricept -) 10 mg PO DAILY [facility] Last Admin: 04/25/17 09:28 Dose: 10 mg Fentanyl (Duragesic 12mcg Patch -) 1 patch TD Q72H [facility] Furosemide (Lasix Injection -) 20 mg IVPUSH DAILY [facility] Last Admin: 04/25/17 12:58 Dose: 20 mg Hydromorphone HCl (Dilaudid Injection -) 1 mg IVPUSH [id number] PRN PRN Reason: PAIN Stop: 04/27/17 17:22 Insulin Aspart (Novolog Vial Sliding Scale -) 1 vial SQ TIDAC [facility] PRN Reason: Protocol Last Admin: 04/25/17 17:36 Dose: Not Given Lorazepam (Ativan Injection -) 0.5 mg IVPUSH TID PRN PRN Reason: ANXIETY Last Admin: 04/25/17 09:29 Dose: 0.5 mg Miscellaneous (Duragesic Patch Waste) 1 each TD PRN PRN PRN Reason: PAIN Morphine Sulfate (Morphine Injection -) 4 mg IVPUSH Q4H PRN PRN Reason: PAIN Morphine Sulfate (Morphine Injection -) 1 mg IVPB Q3H PRN PRN Reason: PAIN Last Admin: 04/26/17 02:48 Dose: 1 mg Tamsulosin HCl (Flomax -) 0.4 mg PO DAILY@0830 [facility] Last Admin: 04/25/17 09:28 Dose: 0.4 mg Warfarin Sodium (Coumadin -) 5 mg PO DAILY@1800 [facility] Last Admin: 04/25/17 18:03 Dose: 5 mg - Objective Vital Signs: Vital Signs Temperature 98.3 F 04/25/17 22:00 Pulse Rate 122 H 04/25/17 22:00 Respiratory Rate 18 04/25/17 22:00 Blood Pressure 115/56 04/25/17 22:00 O2 Sat by Pulse Oximetry (%) 98 04/25/17 21:00 Constitutional: Yes: Thin Eyes: Yes: WNL HENT: Yes: WNL Neck: Yes: WNL Cardiovascular: Yes: Tachycardia, Pulse Irregular, Murmur (3/6 systolic, RSB--> apex) Respiratory: Yes: Regular, Diminished, Rales (bilateral bases) Gastrointestinal: Yes: Soft Genitourinary: No: Anuria Musculoskeletal: Yes: Muscle Weakness Extremities: Yes: Other (left foot gangrene; right LE amputation) Integumentary: Yes: Other Neurological: Yes: Weakness Psychiatric: Yes: Other (dementia) Labs: CBC, BMP 04/25/17 12:45 04/25/17 12:45 INR, PTT INR 1.35 (0.82-1.09) H 04/25/17 17:10 Problem List - Problems (1) Atrial fibrillation with RVR Assessment/Plan: Continue carvedilol. Wafarin held; use IV heparin or Lovenox until can restart warfarin after planned left foot amputation. May continue clopidogrel (hx recent NSTEMI) if no bleeding. Pain management. Code(s): I48.91 - UNSPECIFIED ATRIAL FIBRILLATION (2) Gangrene Assessment/Plan: s/p BKA right foot. Left foot gangrene of toes;for BKA today. On Lovenox. Code(s): I96 - GANGRENE, NOT ELSEWHERE CLASSIFIED (3) Sepsis Assessment/Plan: off antibiotics. Leukocytosis; afebrile. gangrenous left foot. cautious use of IV Fluids (acute/chronis systolic CHF; watch weight, Is and Os, respiratory status carefully for volume overload (severe sytolic LV dysfunction) . Code(s): A41.9 - SEPSIS, UNSPECIFIED ORGANISM (4) Acute on chronic systolic (congestive) heart failure Assessment/Plan: Pt is on beta blockers (attempt to give [id number] for better efficacy); overall benefit still likely, despite controversy when used with systolic CHF + AF; keep resting HR >90<110 bpm. Problematic using ACEI or spironolactone with present low BP. Furosemide; f/u dailys weight, Is and OS, BUN/Cr, electrolytes. CXR Code(s): I50.23 - ACUTE ON CHRONIC SYSTOLIC (CONGESTIVE) HEART FAILURE (5) Aortic stenosis Assessment/Plan: moderately severe on recent ECHO; may be underestimated because of severe LV dysfunction. Code(s): I35.0 - NONRHEUMATIC AORTIC (VALVE) STENOSIS (6) Dementia Code(s): F03.90 - UNSPECIFIED DEMENTIA WITHOUT BEHAVIORAL DISTURBANCE (7) Hyperlipidemia Code(s): E78.5 - HYPERLIPIDEMIA, UNSPECIFIED (8) HTN (hypertension) Assessment/Plan: medications held (except carvedilol) due to periods of borderline hypotension. furosemide when BP allows. Code(s): I10 - ESSENTIAL (PRIMARY) HYPERTENSION (9) Normocytic anemia Code(s): D64.9 - ANEMIA, UNSPECIFIED (10) Elevated troponin Assessment/Plan: Hx NSTEMI earlier this year. Present elevation with demand ischemia, sepsis, acute systolic CHF. Code(s): R74.8 - ABNORMAL LEVELS OF OTHER SERUM ENZYMES (11) Elevated LFTs Code(s): R79.89 - OTHER SPECIFIED ABNORMAL FINDINGS OF BLOOD CHEMISTRY (12) Hypoalbuminemia Code(s): E88.09 - OTH DISORDERS OF PLASMA-PROTEIN METABOLISM, NEC
--- NOTE | 2017-04-26 04:20 | PN ---
Progress Note, Physician Chief Complaint: Pt lying in bed; speaking, but unintelligibly; does not follow verbal commands History of Present Illness: 77 y/o man (b. [place]), with a PMHx of Alzheimer's, severe systolic CHF, s/p NSTEMI 2017, HLD, NIDDM, and HTN, chronic foot ulcers and gangrene, presents to the ED via EMS from [facility] with change in mental status and foul smelling foot ulcers. Per [place] records, patient has an elevated WBC. - Current Medication List Current Medications: Active Medications Acetaminophen (Tylenol -) 650 mg PO Q6H PRN PRN Reason: FEVER Amino Acids (Prosource No Carb Liquid Pkt) 30 ml PO BID@0800,1730 [facility] Last Admin: 04/25/17 18:04 Dose: 30 ml Carvedilol (Coreg -) 3.125 mg PO BID [facility] Last Admin: 04/25/17 21:21 Dose: 3.125 mg Digoxin (Lanoxin -) 0.125 mg PO DAILY [facility] Last Admin: 04/25/17 09:28 Dose: 0.125 mg Donepezil HCl (Aricept -) 10 mg PO DAILY [facility] Last Admin: 04/25/17 09:28 Dose: 10 mg Fentanyl (Duragesic 12mcg Patch -) 1 patch TD Q72H [facility] Furosemide (Lasix Injection -) 20 mg IVPUSH DAILY [facility] Last Admin: 04/25/17 12:58 Dose: 20 mg Hydromorphone HCl (Dilaudid Injection -) 1 mg IVPUSH [id number] PRN PRN Reason: PAIN Stop: 04/27/17 17:22 Insulin Aspart (Novolog Vial Sliding Scale -) 1 vial SQ TIDAC [facility] PRN Reason: Protocol Last Admin: 04/25/17 17:36 Dose: Not Given Lorazepam (Ativan Injection -) 0.5 mg IVPUSH TID PRN PRN Reason: ANXIETY Last Admin: 04/25/17 09:29 Dose: 0.5 mg Miscellaneous (Duragesic Patch Waste) 1 each TD PRN PRN PRN Reason: PAIN Morphine Sulfate (Morphine Injection -) 4 mg IVPUSH Q4H PRN PRN Reason: PAIN Morphine Sulfate (Morphine Injection -) 1 mg IVPB Q3H PRN PRN Reason: PAIN Last Admin: 04/26/17 02:48 Dose: 1 mg Tamsulosin HCl (Flomax -) 0.4 mg PO DAILY@0830 [facility] Last Admin: 04/25/17 09:28 Dose: 0.4 mg Warfarin Sodium (Coumadin -) 5 mg PO DAILY@1800 [facility] Last Admin: 04/25/17 18:03 Dose: 5 mg - Objective Vital Signs: Vital Signs Temperature 98.3 F 04/25/17 22:00 Pulse Rate 122 H 04/25/17 22:00 Respiratory Rate 18 04/25/17 22:00 Blood Pressure 115/56 04/25/17 22:00 O2 Sat by Pulse Oximetry (%) 98 04/25/17 21:00 Constitutional: Yes: Thin Eyes: Yes: WNL HENT: Yes: WNL Neck: Yes: WNL Cardiovascular: Yes: Tachycardia, Pulse Irregular, Murmur (3/6 SILKE, RSB-->apex) , S1 (varies in intensity) Respiratory: Yes: Diminished, Rales Gastrointestinal: Yes: Soft Genitourinary: No: Anuria Musculoskeletal: Yes: Muscle Weakness Extremities: Yes: Other (sal LE amputations) Peripheral Pulses WNL: No Integumentary: Yes: Other Wound/Incision: Yes: Well Approximated Neurological: Yes: Weakness Psychiatric: Yes: Other (dementia) Labs: CBC, BMP 04/25/17 12:45 04/25/17 12:45 INR, PTT INR 1.35 (0.82-1.09) H 04/25/17 17:10 Problem List - Problems (1) Atrial fibrillation with RVR Assessment/Plan: Continue carvedilol. If possible, would use higher doses of carvedilol for HR control, and avoid digoxin (severe systolic LV dysfunction; increased risk of adverse cardiac events with digoxin). Restart warfarin. Code(s): I48.91 - UNSPECIFIED ATRIAL FIBRILLATION (2) Gangrene Assessment/Plan: s/p bilateral BKA. Code(s): I96 - GANGRENE, NOT ELSEWHERE CLASSIFIED (3) Sepsis Assessment/Plan: s/p BKA cautious use of IV Fluids (acute/chronis systolic CHF; watch weight, Is and Os, respiratory status carefully for volume overload (severe sytolic LV dysfunction) . Code(s): A41.9 - SEPSIS, UNSPECIFIED ORGANISM (4) Acute on chronic systolic (congestive) heart failure Assessment/Plan: Pt is on beta blockers (attempt to give [id number] for better efficacy); overall benefit still likely, despite controversy when used with systolic CHF + AF; keep resting HR >90<110 bpm. Problematic using ACEI or spironolactone with present low BP. Avoid use of digoxin, if possible. Furosemide; f/u dailys weight, Is and OS, BUN/Cr, electrolytes. CXR Code(s): I50.23 - ACUTE ON CHRONIC SYSTOLIC (CONGESTIVE) HEART FAILURE (5) Aortic stenosis Assessment/Plan: moderately severe on recent ECHO; may be underestimated because of severe LV dysfunction. Code(s): I35.0 - NONRHEUMATIC AORTIC (VALVE) STENOSIS (6) Dementia Code(s): F03.90 - UNSPECIFIED DEMENTIA WITHOUT BEHAVIORAL DISTURBANCE (7) Hyperlipidemia Code(s): E78.5 - HYPERLIPIDEMIA, UNSPECIFIED (8) HTN (hypertension) Assessment/Plan: medications held (except carvedilol); blood pressure improving. furosemide restarted. Code(s): I10 - ESSENTIAL (PRIMARY) HYPERTENSION (9) Normocytic anemia Code(s): D64.9 - ANEMIA, UNSPECIFIED (10) Elevated troponin Code(s): R74.8 - ABNORMAL LEVELS OF OTHER SERUM ENZYMES (11) Elevated LFTs Code(s): R79.89 - OTHER SPECIFIED ABNORMAL FINDINGS OF BLOOD CHEMISTRY (12) Hypoalbuminemia Code(s): E88.09 - OTH DISORDERS OF PLASMA-PROTEIN METABOLISM, NEC
[2017-04-26] MEDS: INSULIN SLIDING SCALE (NOVOLOG) 1 VIAL SQ SCH ×3 (06:07→18:15)
[2017-04-26 07:52] LABS: BASOPHIL 0.1 % (0-2.0); EOSINOPHIL 0.3 % (0-4.5); MEAN CELL VOLUME 83.8 fl (80-96); NEUTROPHILS 81.4 % (42.8-82.8); PLATELET COUNT 297 K/MM3 (134-434); WHITE BLOOD COUNT 8.8 K/mm3 (4.0-10.0)
[2017-04-26 08:14] LABS: INR 1.34 (0.82-1.09); PROTHROMBIN TIME (PATIENT) 15.1 SEC (9.98-11.88)
[2017-04-26 08:45] LABS: ALBUMIN 1.2 g/dl (3.4-5.0); ANION GAP 8 (8-16); BILIRUBIN,TOTAL 0.5 mg/dL (0.2-1.0); CALCIUM 7.7 mg/dL (8.5-10.1); CO2 29 mmol/L (21-32); CREATININE 0.6 mg/dL (0.7-1.3); GLUCOSE,RANDOM 118 mg/dL (74-106); SGOT/AST 12 U/L (15-37); SGPT/ALT 22 U/L (12-78); TOT PROT 5.3 g/dl (6.4-8.2)
[2017-04-26 08:46] LABS: ALK PHOS 89 U/L (45-117)
[2017-04-26] MEDS ORDERED: PT OWN MED DRAWER 7, Y5N ONE ×3 (08:58→23:39)
[2017-04-26] MEDS: TAMSULOSIN HCL 0.4 MG CAP.ER.24H (FP) PO SCH (09:05)
[2017-04-26] MEDS: DONEPEZIL HCL 10 MG TABLET (FP) PO SCH (09:05)
[2017-04-26] MEDS: DIGOXIN 0.125 MG TABLET (FP) PO SCH (09:05)
[2017-04-26] MEDS: AMINO ACIDS/PROTEIN HYDROLYS 30 ML LIQUID.PKT PO SCH ×2 (09:05→18:15)
[2017-04-26] MEDS: FUROSEMIDE 40 MG/4 ML INJECTABLE VIAL IVPUSH SCH (09:06)
[2017-04-26] MEDS: MULTIVIT-MINERALS 236 ML ML PO SCH (09:06)
[2017-04-26] MEDS: CARVEDILOL 3.125 MG TABLET (FP) PO SCH ×2 (09:06→22:05)
--- NOTE | 2017-04-26 10:03 | PN ---
Progress Note (short form) - Note Progress Note: NAD Confused. POD #1 Left BKA Intake & Output 04/23/17 04/24/17 04/25/17 04/26/17 23:59 23:59 23:59 23:59 Intake Total 2330 2050 1474 Output Total 773 596 7358 250 Balance 1800 1325 -436 -250 Last Vital Signs Temp Pulse Resp BP Pulse Ox 98.7 F 94 H 20 128/65 98 04/26/17 07:00 04/26/17 09:05 04/26/17 07:00 04/26/17 07:00 04/25/17 21:00 Active Medications Acetaminophen (Tylenol -) 650 mg PO Q6H PRN PRN Reason: FEVER Amino Acids (Prosource No Carb Liquid Pkt) 30 ml PO BID@0800,1730 [facility] Last Admin: 04/26/17 09:05 Dose: 30 ml Carvedilol (Coreg -) 3.125 mg PO BID [facility] Last Admin: 04/26/17 09:06 Dose: 3.125 mg Digoxin (Lanoxin -) 0.125 mg PO DAILY [facility] Last Admin: 04/26/17 09:05 Dose: 0.125 mg Donepezil HCl (Aricept -) 10 mg PO DAILY [facility] Last Admin: 04/26/17 09:05 Dose: 10 mg Fentanyl (Duragesic 12mcg Patch -) 1 patch TD Q72H [facility] Furosemide (Lasix Injection -) 20 mg IVPUSH DAILY [facility] Last Admin: 04/26/17 09:06 Dose: 20 mg Hydromorphone HCl (Dilaudid Injection -) 1 mg IVPUSH [id number] PRN PRN Reason: PAIN Stop: 04/27/17 17:22 Insulin Aspart (Novolog Vial Sliding Scale -) 1 vial SQ TIDAC [facility] PRN Reason: Protocol Last Admin: 04/26/17 06:07 Dose: Not Given Lorazepam (Ativan Injection -) 0.5 mg IVPUSH TID PRN PRN Reason: ANXIETY Last Admin: 04/25/17 09:29 Dose: 0.5 mg Miscellaneous (Duragesic Patch Waste) 1 each TD PRN PRN PRN Reason: PAIN Morphine Sulfate (Morphine Injection -) 4 mg IVPUSH Q4H PRN PRN Reason: PAIN Morphine Sulfate (Morphine Injection -) 1 mg IVPB Q3H PRN PRN Reason: PAIN Last Admin: 04/26/17 02:48 Dose: 1 mg Tamsulosin HCl (Flomax -) 0.4 mg PO DAILY@0830 [facility] Last Admin: 04/26/17 09:05 Dose: 0.4 mg Warfarin Sodium (Coumadin -) 5 mg PO DAILY@1800 [facility] Last Admin: 04/25/17 18:03 Dose: 5 mg Constitutional: Yes: No Distress, confused Cardiovascular: Yes: Pulse Irregular Respiratory: Yes: Diminished Gastrointestinal: Yes: Normal Bowel Sounds, Soft. No: Tenderness Extremities: Yes: Bilateral BKA / left dressing intact Edema: No Labs: Laboratory Results - last 24 hr 04/25/17 04/25/17 04/25/17 11:09 12:45 12:45 WBC 8.1 RBC 3.27 L Hgb 8.5 L Hct 27.8 L MCV 85.1 MCH 26.2 MCHC 30.7 L RDW 20.8 H Plt Count 322 MPV 7.7 Neutrophils % 86.0 H Lymphocytes % 9.2 D Monocytes % 4.4 Eosinophils % 0.3 Basophils % 0.1 Hypochromia 2+ Anisocytosis 2+ Microcytosis 2+ Target Cells 2+ PT with INR INR Sodium 149 H Potassium 3.6 Chloride 114 H Carbon Dioxide 26 Anion Gap 9 BUN 16 Creatinine 0.6 L Creat Clearance w eGFR > 60 POC Glucometer 121 Random Glucose 115 H Calcium 7.9 L Total Bilirubin 0.5 AST 14 L D ALT 26 D Alkaline Phosphatase 87 D Total Protein 5.3 L Albumin 1.2 L 04/25/17 04/25/17 04/25/17 17:10 17:20 21:27 WBC RBC Hgb Hct MCV MCH MCHC RDW Plt Count MPV Neutrophils % Lymphocytes % Monocytes % Eosinophils % Basophils % Hypochromia Anisocytosis Microcytosis Target Cells PT with INR 15.30 H INR 1.35 H Sodium Potassium Chloride Carbon Dioxide Anion Gap BUN Creatinine Creat Clearance w eGFR POC Glucometer 145 133 Random Glucose Calcium Total Bilirubin AST ALT Alkaline Phosphatase Total Protein Albumin 04/26/17 04/26/17 04/26/17 05:53 07:00 07:00 WBC 8.8 RBC 3.04 L Hgb 7.9 L Hct 25.5 L MCV 83.8 MCH 26.0 MCHC 31.0 L RDW 21.0 H Plt Count 297 MPV 8.0 Neutrophils % 81.4 Lymphocytes % 12.7 D Monocytes % 5.5 Eosinophils % 0.3 Basophils % 0.1 Hypochromia Anisocytosis Microcytosis Target Cells PT with INR 15.10 H INR 1.34 H Sodium Potassium Chloride Carbon Dioxide Anion Gap BUN Creatinine Creat Clearance w eGFR POC Glucometer 138 Random Glucose Calcium Total Bilirubin AST ALT Alkaline Phosphatase Total Protein Albumin 04/26/17 07:00 WBC RBC Hgb Hct MCV MCH MCHC RDW Plt Count MPV Neutrophils % Lymphocytes % Monocytes % Eosinophils % Basophils % Hypochromia Anisocytosis Microcytosis Target Cells PT with INR INR Sodium 149 H Potassium 3.7 Chloride 112 H Carbon Dioxide 29 Anion Gap 8 BUN 19 H Creatinine 0.6 L Creat Clearance w eGFR > 60 POC Glucometer Random Glucose 118 H Calcium 7.7 L Total Bilirubin 0.5 AST 12 L ALT 22 Alkaline Phosphatase 89 Total Protein 5.3 L Albumin 1.2 L Problem List - Problems (1) Atrial fibrillation with RVR Code(s): I48.91 - UNSPECIFIED ATRIAL FIBRILLATION (2) Gangrene Code(s): I96 - [place]ANGR[place], NOT ELSEWHERE CLASSIFIED (3) Sepsis Code(s): A41.9 - SEPSIS, UNSPECIFIED ORGANISM (4) NICHOLAS (acute kidney injury) Code(s): N17.9 - ACUTE KIDNEY FAILURE, UNSPECIFIED (5) CAD (coronary artery disease) Code(s): I25.10 - ATHSCL HEART DISEASE OF [place] CORONARY ARTERY W/O ANG PCTRS (6) NSTEMI (non-ST elevated myocardial infarction) Code(s): I21.4 - NON-ST ELEVATION (NSTEMI) MYOCARDIAL INFARCTION Assessment/Plan Wound care per surgery O2 as needed Coumadin has been restarted Aspiration precautions Dr Qureshi
--- NOTE | 2017-04-26 12:46 | PN ---
Progress Note (short form) - Note Progress Note: Pod #2 condition same awake/ confused. Vital Signs Temp 98.7 F 04/26/17 07:00 Pulse 94 H 04/26/17 09:05 Resp 20 04/26/17 07:00 BP 128/65 04/26/17 07:00 Pulse Ox 98 04/25/17 21:00 Intake & Output 04/25/17 04/26/17 04/26/17 23:59 11:59 23:59 Intake Total 884 Output Total 1850 250 Balance -966 -250 Intake: IV 360 D5-Ns - 1,000 ml @ 60 mls 360 /hr IV ASDIR [facility] Rx#: [id number] Tube Feeding 384 Tube Irrigant 140 Output: Urine 1850 250 [place] 1850 250 Other: Voiding Method Indwelling Catheter Indwelling Catheter Bowel Movement No # Bowel Movements 0 Active Medications Acetaminophen (Tylenol -) 650 mg PO Q6H PRN PRN Reason: FEVER Amino Acids (Prosource No Carb Liquid Pkt) 30 ml PO BID@0800,1730 [facility] Last Admin: 04/26/17 09:05 Dose: 30 ml Carvedilol (Coreg -) 3.125 mg PO BID [facility] Last Admin: 04/26/17 09:06 Dose: 3.125 mg Digoxin (Lanoxin -) 0.125 mg PO DAILY [facility] Last Admin: 04/26/17 09:05 Dose: 0.125 mg Donepezil HCl (Aricept -) 10 mg PO DAILY [facility] Last Admin: 04/26/17 09:05 Dose: 10 mg Fentanyl (Duragesic 12mcg Patch -) 1 patch TD Q72H [facility] Furosemide (Lasix Injection -) 40 mg IVPUSH DAILY [facility] Hydromorphone HCl (Dilaudid Injection -) 1 mg IVPUSH [id number] PRN PRN Reason: PAIN Stop: 04/27/17 17:22 Insulin Aspart (Novolog Vial Sliding Scale -) 1 vial SQ TIDAC [facility] PRN Reason: Protocol Last Admin: 04/26/17 12:11 Dose: Not Given Lorazepam (Ativan Injection -) 0.5 mg IVPUSH TID PRN PRN Reason: ANXIETY Last Admin: 04/25/17 09:29 Dose: 0.5 mg Miscellaneous (Duragesic Patch Waste) 1 each TD PRN PRN PRN Reason: PAIN Morphine Sulfate (Morphine Injection -) 4 mg IVPUSH Q4H PRN PRN Reason: PAIN Morphine Sulfate (Morphine Injection -) 1 mg IVPB Q3H PRN PRN Reason: PAIN Last Admin: 04/26/17 02:48 Dose: 1 mg Tamsulosin HCl (Flomax -) 0.4 mg PO DAILY@0830 [facility] Last Admin: 04/26/17 09:05 Dose: 0.4 mg Warfarin Sodium (Coumadin -) 5 mg PO DAILY@1800 [facility] Last Admin: 04/25/17 18:03 Dose: 5 mg CBC, BMP 04/26/17 07:00 04/26/17 07:00 Physical Exam Constitutional: Yes: No Distress, confused/ weak/ chronic ill appearance Cardiovascular: Yes: Pulse Irregular Respiratory: Yes: Diminished at bases Gastrointestinal: Yes: Normal Bowel Sounds, Soft, Other (GT+). No: Distention, Tenderness Extremities: Yes: Other s/p left bka- dressing + Rt BKA) Edema: No Problem List - Problems (1) Atrial fibrillation with RVR Code(s): I48.91 - UNSPECIFIED ATRIAL FIBRILLATION (2) Gangrene Code(s): I96 - GANGRENE, NOT ELSEWHERE CLASSIFIED (3) Sepsis Code(s): A41.9 - SEPSIS, UNSPECIFIED ORGANISM (4) NICHOLAS (acute kidney injury) Code(s): N17.9 - ACUTE KIDNEY FAILURE, UNSPECIFIED (5) CAD (coronary artery disease) Code(s): I25.10 - ATHSCL HEART DISEASE OF [place] CORONARY ARTERY W/O ANG PCTRS (6) NSTEMI (non-ST elevated myocardial infarction) Code(s): I21.4 - NON-ST ELEVATION (NSTEMI) MYOCARDIAL INFARCTION Assessment/Plan s/p left bka-pod #2 continue present care pain control meds reviewed f/u labs fix electrolytes restarted coumadin -discussed with Dr. Kothari yesterday transfuse prn. cxr - worsened increase lasix will follow
[2017-04-26] MEDS ORDERED: fentaNYL 12mcg/hr PATCH.TD72 TD SCH (18:15)
[2017-04-26] MEDS: WARFARIN NA 5 MG TABLET (UD) PO SCH (18:15)
[2017-04-27] MEDS ORDERED: PT OWN MED DRAWER 7, Y5N ONE ×2 (05:31→09:22)
[2017-04-27] MEDS: INSULIN SLIDING SCALE (NOVOLOG) 1 VIAL SQ SCH ×3 (06:52→17:52)
[2017-04-27 09:40] LABS: BASOPHIL 0.2 % (0-2.0); EOSINOPHIL 0.3 % (0-4.5); MCH 25.7 pg (25.7-33.7); MCHC 31.1 g/dl (32.0-35.9); MEAN CELL VOLUME 82.8 fl (80-96); MEAN PLT VOLUME 7.9 fl (7.5-11.1); NEUTROPHILS 82.3 % (42.8-82.8); PLATELET COUNT 271 K/MM3 (134-434); RDW 20.2 % (11.9-15.9); WHITE BLOOD COUNT 9.7 K/mm3 (4.0-10.0)
[2017-04-27] MEDS: DONEPEZIL HCL 10 MG TABLET (FP) PO SCH (09:42)
[2017-04-27] MEDS: AMINO ACIDS/PROTEIN HYDROLYS 30 ML LIQUID.PKT PO SCH ×2 (09:42→17:59)
[2017-04-27] MEDS: DIGOXIN 0.125 MG TABLET (FP) PO SCH (09:42)
[2017-04-27] MEDS: TAMSULOSIN HCL 0.4 MG CAP.ER.24H (FP) PO SCH (09:42)
[2017-04-27] MEDS: MULTIVIT-MINERALS 236 ML ML PO SCH (09:43)
[2017-04-27] MEDS: FUROSEMIDE 40 MG/4 ML INJECTABLE VIAL IVPUSH SCH (09:43)
[2017-04-27] MEDS: CARVEDILOL 3.125 MG TABLET (FP) PO SCH ×2 (09:43→21:33)
[2017-04-27 09:54] LABS: INR 1.45 (0.82-1.09); PROTHROMBIN TIME (PATIENT) 16.4 SEC (9.98-11.88)
[2017-04-27 10:03] LABS: ALBUMIN 1.1 g/dl (3.4-5.0); ANION GAP 6 (8-16); CALCIUM 7.4 mg/dL (8.5-10.1); CO2 31 mmol/L (21-32); GLUCOSE,RANDOM 110 mg/dL (74-106)
[2017-04-27 10:06] LABS: ALK PHOS 81 U/L (45-117); BILIRUBIN,TOTAL 0.4 mg/dL (0.2-1.0); CREATININE 0.6 mg/dL (0.7-1.3); SGOT/AST 13 U/L (15-37); SGPT/ALT 18 U/L (12-78); TOT PROT 5.2 g/dl (6.4-8.2)
--- NOTE | 2017-04-27 10:48 | PN ---
Progress Note (short form) - Note Progress Note: NAD Confused. POD #2 Left BKA Intake & Output 04/24/17 04/25/17 04/26/17 04/27/17 23:59 23:59 23:59 23:59 Intake Total 2050 1474 1180 525 Output Total 725 1950 3450 Balance 5121 -585 -5241 525 Last Vital Signs Temp Pulse Resp BP Pulse Ox 98.3 F 84 20 113/59 97 04/27/17 08:00 04/27/17 09:42 04/27/17 08:00 04/27/17 08:00 04/26/17 20:15 Active Medications Acetaminophen (Tylenol -) 650 mg PO Q6H PRN PRN Reason: FEVER Amino Acids (Prosource No Carb Liquid Pkt) 30 ml PO BID@0800,1730 [facility] Last Admin: 04/27/17 09:42 Dose: 30 ml Carvedilol (Coreg -) 3.125 mg PO BID [facility] Last Admin: 04/27/17 09:43 Dose: 3.125 mg Digoxin (Lanoxin -) 0.125 mg PO DAILY [facility] Last Admin: 04/27/17 09:42 Dose: 0.125 mg Donepezil HCl (Aricept -) 10 mg PO DAILY [facility] Last Admin: 04/27/17 09:42 Dose: 10 mg Fentanyl (Duragesic 12mcg Patch -) 1 patch TD Q72H [facility] Last Admin: 04/26/17 18:16 Dose: 1 patch Furosemide (Lasix Injection -) 40 mg IVPUSH DAILY [facility] Last Admin: 04/27/17 09:43 Dose: 40 mg Hydromorphone HCl (Dilaudid Injection -) 1 mg IVPUSH [id number] PRN PRN Reason: PAIN Stop: 04/27/17 17:22 Insulin Aspart (Novolog Vial Sliding Scale -) 1 vial SQ TIDAC LUCY PRN Reason: Protocol Last Admin: 04/27/17 06:52 Dose: 2 units Lorazepam (Ativan Injection -) 0.5 mg IVPUSH TID PRN PRN Reason: ANXIETY Last Admin: 04/25/17 09:29 Dose: 0.5 mg Miscellaneous (Duragesic Patch Waste) 1 each TD PRN PRN PRN Reason: PAIN Last Admin: 04/26/17 18:37 Dose: 1 each Morphine Sulfate (Morphine Injection -) 4 mg IVPUSH Q4H PRN PRN Reason: PAIN Morphine Sulfate (Morphine Injection -) 1 mg IVPB Q3H PRN PRN Reason: PAIN Last Admin: 04/26/17 02:48 Dose: 1 mg Tamsulosin HCl (Flomax -) 0.4 mg PO DAILY@0830 [facility] Last Admin: 04/27/17 09:42 Dose: 0.4 mg Warfarin Sodium (Coumadin -) 5 mg PO DAILY@1800 [facility] Last Admin: 04/26/17 18:15 Dose: 5 mg Constitutional: Yes: No Distress, confused Cardiovascular: Yes: Pulse Irregular Respiratory: Yes: Diminished Gastrointestinal: Yes: Normal Bowel Sounds, Soft. No: Tenderness Extremities: Yes: Bilateral BKA / left dressing intact Edema: No Labs: Laboratory Results - last 24 hr 04/23/17 04/26/17 04/27/17 10:50 18:06 05:55 WBC RBC Hgb Hct MCV MCH MCHC RDW Plt Count MPV Neutrophils % Lymphocytes % Monocytes % Eosinophils % Basophils % PT with INR INR Sodium Potassium Chloride Carbon Dioxide Anion Gap BUN Creatinine Creat Clearance w eGFR POC Glucometer 177 174 Random Glucose Calcium Total Bilirubin AST ALT Alkaline Phosphatase Total Protein Albumin Blood Type AB NEGATIVE Antibody Screen Negative Crossmatch See Detail 04/27/17 04/27/17 04/27/17 08:50 08:50 08:50 WBC 9.7 RBC 2.85 L Hgb 7.3 L Hct 23.6 L MCV 82.8 MCH 25.7 MCHC 31.1 L RDW 20.2 H Plt Count 271 MPV 7.9 Neutrophils % 82.3 Lymphocytes % 12.3 Monocytes % 4.9 Eosinophils % 0.3 Basophils % 0.2 PT with INR 16.40 H INR 1.45 H Sodium 147 H Potassium 3.3 L Chloride 110 H Carbon Dioxide 31 Anion Gap 6 L BUN 23 H D Creatinine 0.6 L Creat Clearance w eGFR > 60 POC Glucometer Random Glucose 110 H Calcium 7.4 L Total Bilirubin 0.4 AST 13 L ALT 18 Alkaline Phosphatase 81 Total Protein 5.2 L Albumin 1.1 L Blood Type Antibody Screen Crossmatch Problem List - Problems (1) Atrial fibrillation with RVR Code(s): I48.91 - UNSPECIFIED ATRIAL FIBRILLATION (2) Gangrene Code(s): I96 - GANGRENE, NOT ELSEWHERE CLASSIFIED (3) Sepsis Code(s): A41.9 - SEPSIS, UNSPECIFIED ORGANISM (4) NICHOLAS (acute kidney injury) Code(s): N17.9 - ACUTE KIDNEY FAILURE, UNSPECIFIED (5) CAD (coronary artery disease) Code(s): I25.10 - ATHSCL HEART DISEASE OF [place] CORONARY ARTERY W/O ANG PCTRS (6) NSTEMI (non-ST elevated myocardial infarction) Code(s): I21.4 - NON-ST ELEVATION (NSTEMI) MYOCARDIAL INFARCTION Assessment/Plan Wound care per surgery O2 as needed Coumadin has been restarted Aspiration precautions Potassium repletion Dr Qureshi
[2017-04-27] MEDS ORDERED: POTASSIUM CHLORIDE TABS 20 MEQ TABLET.ER (FP) PO ONE (10:50)
[2017-04-27] MEDS ORDERED: POTASSIUM CHLORIDE TABS 10 MEQ TABLET.ER (FP) PO SCH (11:15)
--- NOTE | 2017-04-27 12:08 | PN ---
Progress Note (short form) - Note Progress Note: condition same decrease h/h no bleeding Vital Signs Temp 98.3 F 04/27/17 08:00 Pulse 84 04/27/17 09:42 Resp 20 04/27/17 08:00 BP 113/59 04/27/17 08:00 Pulse Ox 97 04/26/17 20:15 Intake & Output 04/26/17 04/27/17 04/27/17 23:59 11:59 23:59 Intake Total 1180 525 Output Total 3200 Balance -2019 525 Intake: Oral 0 Tube Feeding 640 280 Tube Irrigant 540 245 Output: Urine 3200 [place] 3200 Other: Voiding Method Indwelling Catheter Indwelling Catheter Bowel Movement No Active Medications Acetaminophen (Tylenol -) 650 mg PO Q6H PRN PRN Reason: FEVER Amino Acids (Prosource No Carb Liquid Pkt) 30 ml PO BID@0800,1730 [facility] Last Admin: 04/27/17 09:42 Dose: 30 ml Carvedilol (Coreg -) 3.125 mg PO BID [facility] Last Admin: 04/27/17 09:43 Dose: 3.125 mg Digoxin (Lanoxin -) 0.125 mg PO DAILY [facility] Last Admin: 04/27/17 09:42 Dose: 0.125 mg Donepezil HCl (Aricept -) 10 mg PO DAILY [facility] Last Admin: 04/27/17 09:42 Dose: 10 mg Fentanyl (Duragesic 12mcg Patch -) 1 patch TD Q72H [facility] Last Admin: 04/26/17 18:16 Dose: 1 patch Furosemide (Lasix Injection -) 40 mg IVPUSH DAILY [facility] Last Admin: 04/27/17 09:43 Dose: 40 mg Hydromorphone HCl (Dilaudid Injection -) 1 mg IVPUSH [id number] PRN PRN Reason: PAIN Stop: 04/27/17 17:22 Insulin Aspart (Novolog Vial Sliding Scale -) 1 vial SQ TIDAC LUCY PRN Reason: Protocol Last Admin: 04/27/17 06:52 Dose: 2 units Lorazepam (Ativan Injection -) 0.5 mg IVPUSH TID PRN PRN Reason: ANXIETY Last Admin: 04/25/17 09:29 Dose: 0.5 mg Miscellaneous (Duragesic Patch Waste) 1 each TD PRN PRN PRN Reason: PAIN Last Admin: 04/26/17 18:37 Dose: 1 each Morphine Sulfate (Morphine Injection -) 4 mg IVPUSH Q4H PRN PRN Reason: PAIN Morphine Sulfate (Morphine Injection -) 1 mg IVPB Q3H PRN PRN Reason: PAIN Last Admin: 04/26/17 02:48 Dose: 1 mg Potassium Chloride (K-Dur -) 40 meq PO ONCE ONE Stop: 04/27/17 10:51 Potassium Chloride (K-Dur -) 20 meq PO DAILY [facility] Tamsulosin HCl (Flomax -) 0.4 mg PO DAILY@0830 [facility] Last Admin: 04/27/17 09:42 Dose: 0.4 mg Warfarin Sodium (Coumadin -) 5 mg PO DAILY@1800 [facility] Last Admin: 04/26/17 18:15 Dose: 5 mg CBC, BMP 04/27/17 08:50 04/27/17 08:50 Physical Exam Constitutional: Yes: No Distress, confused/ weak/ chronic ill appearance. Cardiovascular: Yes: Pulse Irregular Respiratory: Yes: Diminished at bases- same Gastrointestinal: Yes: Normal Bowel Sounds, Soft, Other (GT+). No: Distention, Tenderness Extremities: Yes: Other s/p left bka- dressing + Rt BKA) Edema: No Problem List - Problems (1) Atrial fibrillation with RVR Code(s): I48.91 - UNSPECIFIED ATRIAL FIBRILLATION (2) Gangrene Code(s): I96 - GANGRENE, NOT ELSEWHERE CLASSIFIED (3) Sepsis Code(s): A41.9 - SEPSIS, UNSPECIFIED ORGANISM (4) NICHOLAS (acute kidney injury) Code(s): N17.9 - ACUTE KIDNEY FAILURE, UNSPECIFIED (5) CAD (coronary artery disease) Code(s): I25.10 - ATHSCL HEART DISEASE OF [place] CORONARY ARTERY W/O ANG PCTRS (6) NSTEMI (non-ST elevated myocardial infarction) Code(s): I21.4 - NON-ST ELEVATION (NSTEMI) MYOCARDIAL INFARCTION Assessment/Plan s/p left bka-pod #3 continue present care pain control meds reviewed f/u labs fix electrolytes restarted coumadin -discussed with Dr. Kothari yesterday transfuse today f/u cxr increased lasix will follow
[2017-04-27] MEDS ORDERED: POTASSIUM CHLORIDE ORAL LIQUID 20 MEQ/15 ML PEG ONE (15:30)
[2017-04-27] MEDS: WARFARIN NA 5 MG TABLET (UD) PO SCH (17:59)
[2017-04-28] MEDS: INSULIN SLIDING SCALE (NOVOLOG) 1 VIAL SQ SCH ×3 (06:13→16:53)
[2017-04-28 08:21] LABS: BASOPHIL 0.4 % (0-2.0); EOSINOPHIL 0.1 % (0-4.5); MCH 25.4 pg (25.7-33.7); MCHC 31.6 g/dl (32.0-35.9); MEAN CELL VOLUME 80.3 fl (80-96); MEAN PLT VOLUME 8.6 fl (7.5-11.1); NEUTROPHILS 85.2 % (42.8-82.8); PLATELET COUNT 272 K/MM3 (134-434); RDW 20.6 % (11.9-15.9); WHITE BLOOD COUNT 14.5 K/mm3 (4.0-10.0)
[2017-04-28 08:46] LABS: INR 1.58 (0.82-1.09); PROTHROMBIN TIME (PATIENT) 17.9 SEC (9.98-11.88)
[2017-04-28 08:56] LABS: ALBUMIN 1.2 g/dl (3.4-5.0); ANION GAP 8 (8-16); CALCIUM 7.3 mg/dL (8.5-10.1); CO2 32 mmol/L (21-32); GLUCOSE,RANDOM 173 mg/dL (74-106)
[2017-04-28 09:00] LABS: ALK PHOS 90 U/L (45-117); BILIRUBIN,TOTAL 0.8 mg/dL (0.2-1.0); CREATININE 0.6 mg/dL (0.7-1.3); SGOT/AST 17 U/L (15-37); SGPT/ALT 19 U/L (12-78); TOT PROT 5.8 g/dl (6.4-8.2)
[2017-04-28] MEDS: FUROSEMIDE 40 MG/4 ML INJECTABLE VIAL IVPUSH SCH (10:54)
[2017-04-28] MEDS: TAMSULOSIN HCL 0.4 MG CAP.ER.24H (FP) PO SCH (10:54)
[2017-04-28] MEDS: POTASSIUM CHLORIDE ORAL LIQUID 20 MEQ/15 ML PO SCH (10:54)
[2017-04-28] MEDS: CARVEDILOL 3.125 MG TABLET (FP) PO SCH ×2 (10:54→21:23)
[2017-04-28] MEDS: DIGOXIN 0.125 MG TABLET (FP) PO SCH (10:55)
[2017-04-28] MEDS: DONEPEZIL HCL 10 MG TABLET (FP) PO SCH (10:55)
[2017-04-28] MEDS: AMINO ACIDS/PROTEIN HYDROLYS 30 ML LIQUID.PKT PO SCH ×2 (10:55→16:53)
[2017-04-28] MEDS: MULTIVIT-MINERALS 236 ML ML PO SCH (10:56)
--- NOTE | 2017-04-28 11:09 | PN ---
Progress Note (short form) - Note Progress Note: more awake today gor 1 unit of prbc yesterday afebrile Vital Signs Temp 98.5 F 04/28/17 06:09 Pulse 91 H 04/28/17 10:55 Resp 21 04/28/17 06:09 BP 136/93 04/28/17 06:09 Pulse Ox 97 04/27/17 09:00 Intake & Output 04/27/17 04/27/17 04/28/17 11:59 23:59 11:59 Intake Total 525 1230 0 Output Total 3200 100 Balance 525 -1970 -100 Intake: Oral 0 0 Tube Feeding 280 480 Packed Cells 350 Tube Irrigant 245 400 Output: Urine 3200 100 Arndt 3200 100 Other: Voiding Method Indwelling Catheter Indwelling Catheter Indwelling Catheter Bowel Movement No Active Medications Acetaminophen (Tylenol -) 650 mg PO Q6H PRN PRN Reason: FEVER Last Admin: 04/27/17 21:33 Dose: 650 mg Amino Acids (Prosource No Carb Liquid Pkt) 30 ml PO BID@0800,1730 [facility] Last Admin: 04/28/17 10:55 Dose: 30 ml Carvedilol (Coreg -) 3.125 mg PO BID [facility] Last Admin: 04/28/17 10:54 Dose: 3.125 mg Digoxin (Lanoxin -) 0.125 mg PO DAILY [facility] Last Admin: 04/28/17 10:55 Dose: 0.125 mg Donepezil HCl (Aricept -) 10 mg PO DAILY [facility] Last Admin: 04/28/17 10:55 Dose: 10 mg Fentanyl (Duragesic 12mcg Patch -) 1 patch TD Q72H [facility] Last Admin: 04/26/17 18:16 Dose: 1 patch Furosemide (Lasix Injection -) 40 mg IVPUSH DAILY [facility] Last Admin: 04/28/17 10:54 Dose: 40 mg Insulin Aspart (Novolog Vial Sliding Scale -) 1 vial SQ TIDAC [facility] PRN Reason: Protocol Last Admin: 04/28/17 06:13 Dose: 2 units Miscellaneous (Duragesic Patch Waste) 1 each TD PRN PRN PRN Reason: PAIN Last Admin: 04/26/17 18:37 Dose: 1 each Potassium Chloride (Potassium Chloride Oral Liquid) 20 meq PO DAILY [facility] Last Admin: 04/28/17 10:54 Dose: 20 meq Tamsulosin HCl (Flomax -) 0.4 mg PO DAILY@0830 [facility] Last Admin: 04/28/17 10:54 Dose: 0.4 mg Warfarin Sodium (Coumadin -) 5 mg PO DAILY@1800 [facility] Last Admin: 04/27/17 17:59 Dose: 5 mg CBC, BMP 04/28/17 06:00 04/28/17 06:00 cxr - better Physical Exam Constitutional: Yes: No Distress, comfortable Cardiovascular: Yes: Pulse Irregular Respiratory: Yes: Diminished at bases- same Gastrointestinal: Yes: Normal Bowel Sounds, Soft, Other (GT+). No: Distention, Tenderness Extremities: Yes: Other s/p left bka- dressing + Rt BKA) Edema: No Problem List - Problems (1) Atrial fibrillation with RVR Code(s): I48.91 - UNSPECIFIED ATRIAL FIBRILLATION (2) Gangrene Code(s): I96 - GANGRENE, NOT ELSEWHERE CLASSIFIED (3) Sepsis Code(s): A41.9 - SEPSIS, UNSPECIFIED ORGANISM (4) NICHOLAS (acute kidney injury) Code(s): N17.9 - ACUTE KIDNEY FAILURE, UNSPECIFIED (5) CAD (coronary artery disease) Code(s): I25.10 - ATHSCL HEART DISEASE OF [place] CORONARY ARTERY W/O ANG PCTRS (6) NSTEMI (non-ST elevated myocardial infarction) Code(s): I21.4 - NON-ST ELEVATION (NSTEMI) MYOCARDIAL INFARCTION Assessment/Plan s/p left bka-pod #r continue present care pain control meds reviewed continue lasashley arndt care increased wbc monitor d/c planning if stable-- will consider tomorrow
[2017-04-28 12:35] LABS: BASOPHIL 0.2 % (0-2.0); EOSINOPHIL 0.1 % (0-4.5); MCH 25.7 pg (25.7-33.7); MCHC 31.6 g/dl (32.0-35.9); MEAN CELL VOLUME 81.3 fl (80-96); MEAN PLT VOLUME 8.4 fl (7.5-11.1); NEUTROPHILS 84.4 % (42.8-82.8); PLATELET COUNT 259 K/MM3 (134-434); RDW 19.8 % (11.9-15.9); WHITE BLOOD COUNT 12.8 K/mm3 (4.0-10.0)
[2017-04-28] MEDS: WARFARIN NA 5 MG TABLET (UD) PO SCH ×2 (16:52→17:43)
[2017-04-29] MEDS: INSULIN SLIDING SCALE (NOVOLOG) 1 VIAL SQ SCH ×2 (06:19→11:56)
[2017-04-29 06:52] VITALS: PULSE 88
[2017-04-29 08:42] LABS: INR 1.71 (0.82-1.09); PROTHROMBIN TIME (PATIENT) 19.3 SEC (9.98-11.88)
[2017-04-29] MEDS: DONEPEZIL HCL 10 MG TABLET (FP) PO SCH (09:09)
[2017-04-29] MEDS: CARVEDILOL 3.125 MG TABLET (FP) PO SCH (09:09)
[2017-04-29] MEDS: TAMSULOSIN HCL 0.4 MG CAP.ER.24H (FP) PO SCH (09:09)
[2017-04-29] MEDS: AMINO ACIDS/PROTEIN HYDROLYS 30 ML LIQUID.PKT PO SCH (09:09)
[2017-04-29] MEDS: POTASSIUM CHLORIDE ORAL LIQUID 20 MEQ/15 ML PO SCH (09:09)
[2017-04-29] MEDS: FUROSEMIDE 40 MG/4 ML INJECTABLE VIAL IVPUSH SCH (09:09)
[2017-04-29] MEDS: DIGOXIN 0.125 MG TABLET (FP) PO SCH (09:10)
[2017-04-29] MEDS: MULTIVIT-MINERALS 236 ML ML PO SCH (09:11)
--- NOTE | 2017-04-29 10:06 | SPA.PREOP ---
- PRE-OP NOTE Dx: ESRD Planned Procedure: Left upper extremity av fistula, possible graft Surgeon: Devan Kothari Consent: To be obtained by surgeon after all risks, benefits and alternatives explained. Last Vital Signs Temp Pulse Resp BP Pulse Ox 98.3 F 88 20 122/54 97 04/29/17 06:51 04/29/17 09:10 04/29/17 06:51 04/29/17 06:51 04/28/17 21:00 Lab Results WBC 12.8 K/mm3 (4.0-10.0) H 04/28/17 11:40 RBC 3.43 M/mm3 (4.00-5.60) L 04/28/17 11:40 Hgb 8.8 GM/dL (11.7-16.9) L 04/28/17 11:40 Hct 27.9 % (35.4-49) L 04/28/17 11:40 MCV 81.3 fl (80-96) 04/28/17 11:40 MCHC 31.6 g/dl (32.0-35.9) L 04/28/17 11:40 RDW 19.8 % (11.9-15.9) H 04/28/17 11:40 Plt Count 259 K/MM3 (134-434) 04/28/17 11:40 Sodium 145 mmol/L (136-145) 04/28/17 06:00 Potassium 3.6 mmol/L (3.5-5.1) 04/28/17 06:00 Chloride 105 mmol/L (98-107) 04/28/17 06:00 Carbon Dioxide 32 mmol/L (21-32) 04/28/17 06:00 Anion Gap 8 (8-16) 04/28/17 06:00 BUN 24 mg/dL (7-18) H 04/28/17 06:00 Creatinine 0.6 mg/dL (0.7-1.3) L 04/28/17 06:00 Random Glucose 173 mg/dL (74-106) H D 04/28/17 06:00 Calcium 7.3 mg/dL (8.5-10.1) L 04/28/17 06:00 Blood Type AB NEGATIVE 04/27/17 11:25 Antibody Screen Negative 04/27/17 11:25 INR 1.71 (0.82-1.09) H 10/17/17 06:50 - ASSESSMENT/PLAN 1. Make NPO after midnight except po meds 2. GI/DVT PPX 3. Medical optimization / clearance 4. Vein mapping done Visit type - Case Type Case Type: ED Admission
--- NOTE | 2017-04-29 11:12 | DS ---
Physical Examination Vital Signs: Vital Signs Temperature 98.3 F 04/29/17 06:51 Pulse Rate 88 04/29/17 09:10 Respiratory Rate 20 04/29/17 06:51 Blood Pressure 122/54 04/29/17 06:51 O2 Sat by Pulse Oximetry (%) 97 04/28/17 21:00 Constitutional: Yes: No Distress, Calm Cardiovascular: Yes: Pulse Irregular Respiratory: Yes: CTA Bilaterally Gastrointestinal: Yes: Normal Bowel Sounds, Soft. No: Distention, Tenderness Extremities: Yes: Other (B/L BKA) Edema: No Labs: CBC, BMP 04/28/17 11:40 04/28/17 06:00 Discharge Summary Reason For Visit: ATRIAL FIBRILLATION; GANGRENE; SEPSIS Current Active Problems Atrial fibrillation with RVR (Acute) Elevated LFTs (Acute) Elevated troponin (Acute) Gangrene (Acute) Hypoalbuminemia (Acute) Sepsis (Acute) Hospital Course: Admitted for sepsis due b/l feet gangrene. he was initially in ICu due to sepsis and NSTEMI due to sepsis Seen by ID,Vascular and cardiology Pt is on Coumadin Has right leg - BKA on 03/21/17 and subsequently the left leg BKA on 04/24/17. Course complicated by anemia - was transfused Received antibiotics and has completed the course. Pt also has poor po intake due to advanced dementia and sepsis , peg tube placed and is now on GT feeding- he is tolerating the feeds INR is 1.71- on coumadin 5mg Pt is afebrile no elevated WBC pt is better and stable for discharge to ID no further antibiotics Condition: Improved - Instructions Referrals: Remigio Del Toro MD [Primary Care Provider] - Disposition: [facility] - Home Medications Comprehensive Discharge Medication List: Ambulatory Orders Cyanocobalamin (Vitamin B-12) [Vitamin B-12] 1,000 mcg PO DAILY 10/04/16 Metformin HCl [Metformin HCl ER] 1,000 mg PO BID 11/26/16 Spironolactone [Aldactone -] 25 mg PO DAILY #0 tablet 01/17/17 Multivitamins [Multivit ([facility] Formulary)] 1 tab PO DAILY 01/29/17 Vit A/Vitamin D3/E/Aloe V/Znox [Periguard Ointment] 0 gm TP TID 01/29/17 Clopidogrel Bisulfate [Plavix -] 75 mg PO DAILY tablet 02/04/17 Acetaminophen [Pain Relief] 650 mg PO DAILY 02/24/17 Mirtazapine [Remeron -] 15 mg PO HS 02/24/17 Aspirin [ASA -] 81 mg PO DAILY tab.chew 03/21/17 Donepezil HCl [Aricept -] 10 mg PO DAILY tablet 03/21/17 Insulin Sliding Scale [Novolog Vial Sliding Scale -] 1 vial SQ ACHS units 03/21 Metoprolol Tartrate [Lopressor -] 50 mg PO TID tablet 03/21/17 Tamsulosin HCl [Flomax -] 0.4 mg PO DAILY@1630 #30 tab 03/21/17 Amino Acids/Protein Hydrolys [Pro-Stat Sugar Free Liquid Pkt] 30 ml PO BID 04/07 Clonazepam [Klonopin -] 0.5 mg PO Q12H MDD 2 04/07/17
[2017-04-29 12:43] VITALS: BP 117/66; TEMP 97.3
--- NOTE | 2017-04-29 15:47 | PATH ---
Surgical Pathology Report Patient Name: TEVIN GUARDADO Med. Rec. #: [id number] /Age/Gender: 1940 (Age: 77) / M Account: [id number] Location: [facility] MED/SURG Taken: 04/24/2017 Received: 04/25/2017 Reported: 04/29/2017 Physicians: Devan Del Toro M.D. Specimen(s) Received EXTREMITY AMPUTATION Clinical History Left leg gangrene Final Diagnosis LEG, LEFT, BELOW THE KNEE AMPUTATION: BONE AND SOFT TISSUE WITH ACUTE AND CHRONIC INFLAMMATION AND GANGRENOUS NECROSIS. ACUTE OSTEOMYELITIS. MODERATE TO SEVERE ATHEROSCLEROSIS. SKIN, SOFT TISSUE AND BONE SURGICAL MARGINS ARE VIABLE. Electronically Signed Christelle West M.D. Gross Description Received fresh labeled "left leg below knee," is a 39 cm in length left below the knee amputation. The foot measures 23 cm from heel to toe. There is an 8 cm in length exposed portion of tibia and a 10 cm in length exposed portion of fibula at the proximal aspect of the specimen. The entire first digit displays a black, gangrenous lesion extending to and involving the underlying bone. Additionally, the proximal foot, heel and agosto display a 20.0 x 12.0 cm black, gangrenous lesion at 12 cm from the closest skin and soft tissue margin. The lesion involves the underlying bone. Sectioning of the vasculature displays moderate to severe atherosclerosis. [employer] sections are submitted in 7 cassettes as follows: 1-lesion from first digit, following decalcification; 2-lesion from heel, following decalcification; 3-skin and soft tissue margin; 4-bone marrow from margin, following decalcification; 5-anterior tibial artery; 6-posterior tibial artery; 7-dorsalis pedis. DL/04/25/2017 saudi04/25/2017
--- NOTE | 2017-05-07 08:53 | OP ---
DATE OF OPERATION: 04/24/2017 PREOPERATIVE DIAGNOSIS: Left foot gangrene. POSTOPERATIVE DIAGNOSIS: Left foot gangrene. PROCEDURE: Left below-knee amputation. SURGEON: Devan Newberry DO ANESTHESIA: General. BLOOD LOSS: 100 mL. The patient is a 77-year-old male that has left foot gangrene and needs a left below-knee amputation. Patient's family was consented for the procedure, understanding all risks, benefits, alternatives. He was then brought to the operating room. Once in the operating room, he was laid on the operating table in the supine manner and general anesthesia was administered to the patient. We then went ahead and went 4 fingerbreadths below the tip of the left tibial tuberosity and jhoana a stepoff incision so that we could create a flap. We then went ahead and prepped and draped the left lower extremity in a sterile surgical manner. We then went ahead and used a No. 15 blade and cut along our incision. Bovie electrocautery was used to control hemostasis and we used cold Bovie electrocautery and took down all the muscular attachments in the anterior and lateral compartments. Once those were taken down, we were able to get down in the medial compartment. We were able to get down to the anterior tibial artery and vein and that was dissected anterior and posteriorly and then clamped and suture ligated using 0 silk. We then went laterally and we were able to dissect down to the posterior tibial artery and vein and those were dissected, clamped, and suture ligated with 0 silk. We then got down to the fibula. The fibula was dissected 2 cm above the tibia. We then went circumferentially and we were able to take down the Achilles tendon and all muscular attachments. We were able to take down all the muscular attachments posteriorly using Bovie electrocautery. We then went ahead and used a bone saw and we were able to transect the tibia and fibula. The fibula was transected 2 cm above the tibia. At this point, we then went ahead and beveled the tibia as well. Bovie electrocautery was used to control hemostasis. Our flap was very good and there was a lot of padding. We irrigated the wound copiously now. We then went ahead and used 2-0 silk and we were able to approximate the fascia in an interrupted manner and the skin was closed with skin manuela. The area was wet and dried. Xeroform, 4 x 4's, ABD pads, Kerlix, and Coban were placed. Patient tolerated the procedure well with no complications. Patient transferred to PACU in stable condition. Total blood loss 100 mL. DEVAN NEWBERRY DO [id number]
== END 2017-04-29 14:12 | DRG 710 ==
LOC: JER 12:58 → JERBED 16:32 → JICU 20:30 → J4W 04-11 19:54 → J8W 04-15 19:01
PROVIDERS: ADMIT Internal Medicine; ATTEND Internal Medicine
PROC: 30233N1 Transfusion of Nonautologous Red Blood Cells into Peripheral Vein, Percutaneous Approach (ICD-10-PCS; 2017-04-09)
PROC: 30233L1 Transfusion of Nonautologous Fresh Plasma into Peripheral Vein, Percutaneous Approach (ICD-10-PCS; 2017-04-10)
PROC: 30233K1 Transfusion of Nonautologous Frozen Plasma into Peripheral Vein, Percutaneous Approach (ICD-10-PCS; 2017-04-10)
PROC: 0Y6H0Z1 Detachment at Right Lower Leg, High, Open Approach (ICD-10-PCS; principal; 2017-04-10 15:15)
PROC: 0DH63UZ Insertion of Feeding Device into Stomach, Percutaneous Approach (ICD-10-PCS; 2017-04-22)
PROC: 0Y6J0Z1 Detachment at Left Lower Leg, High, Open Approach (ICD-10-PCS; 2017-04-24)
DX: A41.9 Sepsis, unspecified organism (principal); I48.91 Unspecified atrial fibrillation; I21.4 Non-ST elevation (NSTEMI) myocardial infarction; N17.9 Acute kidney failure, unspecified; I96 Gangrene, not elsewhere classified; E88.09 Other disorders of plasma-protein metabolism, not elsewhere classified; D64.9 Anemia, unspecified; I25.10 Atherosclerotic heart disease of native coronary artery without angina pectoris; G30.9 Alzheimer's disease, unspecified; F02.80 Dementia in other diseases classified elsewhere, unspecified severity, without behavioral disturbance, psychotic disturbance, mood disturbance, and anxiety; E78.5 Hyperlipidemia, unspecified; I50.23 Acute on chronic systolic (congestive) heart failure; I35.0 Nonrheumatic aortic (valve) stenosis; E11.52 Type 2 diabetes mellitus with diabetic peripheral angiopathy with gangrene; R13.10 Dysphagia, unspecified; I13.0 Hypertensive heart and chronic kidney disease with heart failure and stage 1 through stage 4 chronic kidney disease, or unspecified chronic kidney disease; E11.22 Type 2 diabetes mellitus with diabetic chronic kidney disease; N18.9 Chronic kidney disease, unspecified; E87.2 Acidosis; N39.0 Urinary tract infection, site not specified; Z16.19 Resistance to other specified beta lactam antibiotics; Z16.12 Extended spectrum beta lactamase (ESBL) resistance; E11.69 Type 2 diabetes mellitus with other specified complication; M86.172 Other acute osteomyelitis, left ankle and foot; M86.171 Other acute osteomyelitis, right ankle and foot
CPT/HCPCS: 36415; 36430; 71010-TC; 80048; 80053; 80162; 81003; 81015; 82553; 82803; 83605; 83735; 84100; 84443; 84484; 85025; 85027; 85610; 85730; 86850; 86900; 86901; 86922; 87040; 87086; 87186; 88307-TC; 88311-TC; 90688; 93005; 93010; 94760; 99285-25; G0008; G0480; J1644; P9017; P9038; P9058

== ENCOUNTER 2017-05-21 16:59 | Observation (INO) | payer OTHER ==
[2017-05-21 17:21] VITALS: BMI 21.7
--- NOTE | 2017-05-21 17:24 | PDOC ---
History of Present Illness - General Chief Complaint: G Tube Problem Stated Complaint: PEG REPLACEMENT Time Seen by Provider: 05/21/17 17:23 History Source: Patient Exam Limitations: No Limitations - History of Present Illness Initial Comments: 05/21/17 17:53 Pt. is a 77 y/o M [facility] Alzheimers, HLD, NIDDM, BKA, HTN, peg tube, presents to the ED via ambulance for PEG tube replacent. Per Marcelina, PtMarquez dislodged PEG at approximately 14:00 this afternoon. PEG tube was placed on 04/24/[address] Mandujano. Past History - Travel Traveled outside of the country in the last 30 days: No Close contact w/someone who was outside of country & ill: No - Past Medical History Allergies/Adverse Reactions: Allergies Allergy/AdvReac Type Severity Reaction Status Date / Time No Known Allergies Allergy Verified 05/07/17 22:17 Home Medications: Ambulatory Orders Acetaminophen [Pain Relief] 650 mg PO BID 02/24/17 Donepezil HCl [Aricept -] 10 mg PO DAILY tablet 03/21/17 Clonazepam [Klonopin -] 0.5 mg PO Q12H MDD 2 04/07/17 Digoxin [Lanoxin -] 0.125 mg PO DAILY #30 tablet 04/29/17 Aspirin [ASA -] 81 mg PO DAILY #30 tab.chew 05/16/17 FENTANYL 12mcg PATCH [DURAGESIC 12mcg PATCH -] 1 patch TD Q72H #20 patch MDD 1 05/16/17 Warfarin Na [Coumadin -] 3 mg PO DAILY@1800 #30 tablet 05/16/17 Ascorbic Acid [Vitamin C Oral Solution -] 500 mg GT DAILY 05/21/17 Carvedilol 3.125 mg GT ONCE 05/21/17 Doxazosin Mesylate [Cardura] 1 mg GT ONCE 05/21/17 Anemia: Yes Asthma: No Cancer: No Cardiac Disorders: Yes (NSTEMI) CVA: Yes (DYSPHAGIA) COPD: No CHF: No Dementia: Yes (ALZHEIMERS.) Diabetes: Yes GI Disorders: No Disorders: No HTN: Yes Hypercholesterolemia: No Liver Disease: No Psychiatric Problems: Yes (ANXIETY, BIPOLAR) Seizures: No Thyroid Disease: No - Surgical History Abdominal Surgery: No Appendectomy: No Cardiac Surgery: No Cholecystectomy: No Lung Surgery: No Neurologic Surgery: No Orthopedic Surgery: No - Immunization History Immunization Up to Date: No - Suicide/Smoking/Psychosocial Hx Smoking History: Unknown if ever smoked Have you smoked in the past 12 months: No Hx Alcohol Use: No Drug/Substance Use Hx: No Substance Use Type: None Hx Substance Use Treatment: No Review of Systems - Review of Systems Able to Perform ROS?: No (alzheimers ) *Physical Exam - Vital Signs Last Vital Signs Temp Pulse Resp BP Pulse Ox 0 F L 0 L 0 L 0/0 05/21/17 17:15 05/21/17 17:15 05/21/17 17:15 05/21/17 17:15 - Physical Exam Comments: 05/21/17 17:56 GENERAL: Well developed, well nourished. Confused/disoriented (baseline) No acute distress. HEENT: Normocephalic, atraumatic. PERRLA, EOMI. No conjunctival pallor. Sclera are non- icteric. Moist mucous membranes. Oropharynx is clear. NECK: Supple. Full ROM. No JVD. Carotid pulses 2+ and symmetric, without bruits. No thyromegaly. No lymphadenopathy. CARDIOVASCULAR: Regular rate and rhythm. No murmurs, rubs, or gallops. Distal pulses are 2+ and symmetric. PULMONARY: No evidence of respiratory distress. Lungs clear to auscultation bilaterally. No wheezing, rales or rhonchi. ABDOMINAL: G-Tube opening. Clean, non-cellulitic with granulation tissue. Soft. Non- tender. Non-distended. No rebound or guarding. No organomegaly. Normoactive bowel sounds. MUSCULOSKELETAL Normal range of motion at all joints. No bony deformities or tenderness. No CVA tenderness. EXTREMITIES: BKA. No cyanosis. No clubbing. No edema. No calf tenderness. SKIN: Warm and dry. Normal capillary refill. No rashes. No jaundice. NEUROLOGICAL: Alert, awake, appropriate. Cranial nerves 2-12 intact. No deficits to light touch and temperature in face, upper extremities and lower extremities. No motor deficits in the in face, upper extremities and lower extremities. Normoreflexic in the upper and lower extremities. Normal speech. Toes are down- going bilaterally. Gait is normal without ataxia. PSYCHIATRIC: Cooperative. Good eye contact. Appropriate mood and affect. Medical Decision Making - Medical Decision Making 05/21/17 18:27 Pt. is a 77y/o M with PMH alzheimers, NIDDM, BKA, G-tube, who presents to the ED for G-tube replacement. Will replace at this time. Pt has no other complaints, mental status is at base line. *DC/Admit/Observation/Transfer - Referrals Referrals: Remigio Del Toro MD [Primary Care Provider] - - Patient Instructions - Post Discharge Activity
--- NOTE | 2017-05-21 18:57 | PDOC ---
History of Present Illness - General History Source: EMS, Old Records Exam Limitations: Dementia - History of Present Illness Initial Comments: 05/21/17 18:52 Patient is a 77-year-old male past medical history of Alzheimer's, HLD, NIDDM, HTN, an STEMI, bilateral BKA who presents to the emergency department today after his G-tube fell out. He is from [facility]. [facility] states that they noticed the tube was out around 2 PM this afternoon. They sent him for replacement of G-tube today. G-tube was placed by Dr. Mandujano on 04/24/17. Unable to obtain review of systems as the patient has Alzheimer's. <Nai Blanc - Last Filed: 05/21/17 18:52> <Basilia Calderón - Last Filed: 05/21/17 21:36> - General Chief Complaint: G Tube Problem Stated Complaint: PEG REPLACEMENT Time Seen by Provider: 05/21/17 17:23 Past History - Travel Traveled outside of the country in the last 30 days: No Close contact w/someone who was outside of country & ill: No - Past Medical History Anemia: Yes Asthma: No Cancer: No Cardiac Disorders: Yes (NSTEMI) CVA: Yes (DYSPHAGIA) COPD: No CHF: No Dementia: Yes (ALZHEIMERS.) Diabetes: Yes GI Disorders: No Disorders: No HTN: Yes Hypercholesterolemia: No Liver Disease: No Psychiatric Problems: Yes (ANXIETY, BIPOLAR) Seizures: No Thyroid Disease: No - Surgical History Abdominal Surgery: No Appendectomy: No Cardiac Surgery: No Cholecystectomy: No Lung Surgery: No Neurologic Surgery: No Orthopedic Surgery: No - Immunization History Immunization Up to Date: No - Suicide/Smoking/Psychosocial Hx Smoking History: Unknown if ever smoked Have you smoked in the past 12 months: No Hx Alcohol Use: No Drug/Substance Use Hx: No Substance Use Type: None Hx Substance Use Treatment: No <Nai Blanc - Last Filed: 05/21/17 18:52> <Basilia Calderón - Last Filed: 05/21/17 21:36> - Past Medical History Allergies/Adverse Reactions: Allergies Allergy/AdvReac Type Severity Reaction Status Date / Time No Known Allergies Allergy Verified 05/07/17 22:17 Home Medications: Ambulatory Orders Acetaminophen [Pain Relief] 650 mg PO BID 02/24/17 Donepezil HCl [Aricept -] 10 mg PO DAILY tablet 03/21/17 Clonazepam [Klonopin -] 0.5 mg PO Q12H MDD 2 04/07/17 Digoxin [Lanoxin -] 0.125 mg PO DAILY #30 tablet 04/29/17 Aspirin [ASA -] 81 mg PO DAILY #30 tab.chew 05/16/17 FENTANYL 12mcg PATCH [DURAGESIC 12mcg PATCH -] 1 patch TD Q72H #20 patch MDD 1 05/16/17 Warfarin Na [Coumadin -] 3 mg PO DAILY@1800 #30 tablet 05/16/17 Ascorbic Acid [Vitamin C Oral Solution -] 500 mg GT DAILY 05/21/17 Carvedilol 3.125 mg GT ONCE 05/21/17 Doxazosin Mesylate [Cardura] 1 mg GT ONCE 05/21/17 Review of Systems - Review of Systems Able to Perform ROS?: No (dementia) Constitutional: No: Chills, Fever, Weakness <Nai Blanc - Last Filed: 05/21/17 18:52> *Physical Exam - Vital Signs Last Vital Signs Temp Pulse Resp BP Pulse Ox 98.9 F 84 20 116/88 97 05/21/17 17:15 05/21/17 17:15 05/21/17 17:15 05/21/17 17:15 05/21/17 17:15 - Physical Exam Comments: 05/21/17 18:55 GENERAL: Well developed, well nourished. Confused/disoriented but at baseline. No acute distress. Urine appears dark with sediment. HEENT: Normocephalic, atraumatic. PERRLA, EOMI. No conjunctival pallor. Sclera are non- icteric. Moist mucous membranes. Oropharynx is clear. NECK: Supple. Full ROM. No JVD. Carotid pulses 2+ and symmetric, without bruits. No thyromegaly. No lymphadenopathy. CARDIOVASCULAR: Regular rate and rhythm. No murmurs, rubs, or gallops. Distal pulses are 2+ and symmetric. PULMONARY: No evidence of respiratory distress. Lungs clear to auscultation bilaterally. No wheezing, rales or rhonchi. ABDOMINAL: Superficial G-tube opening. Non-erythmatous with granulation tissue. Soft. Non- tender. Non-distended. No rebound or guarding. No organomegaly. Normoactive bowel sounds. MUSCULOSKELETAL Normal range of motion at all joints. No bony deformities or tenderness. No CVA tenderness. EXTREMITIES: No cyanosis. No clubbing. No edema. No calf tenderness. SKIN: Warm and dry. Normal capillary refill. No rashes. No jaundice. NEUROLOGICAL: Alert, awake, appropriate. Cranial nerves 2-12 intact. No deficits to light touch and temperature in face, upper extremities and lower extremities. No motor deficits in the in face, upper extremities and lower extremities. Normoreflexic in the upper and lower extremities. Normal speech. Toes are down- going bilaterally. Gait is normal without ataxia. PSYCHIATRIC: Cooperative. Good eye contact. Appropriate mood and affect. <Nai Blanc - Last Filed: 05/21/17 18:52> - Vital Signs Last Vital Signs Temp Pulse Resp BP Pulse Ox 98.9 F 84 20 116/88 97 05/21/17 17:15 05/21/17 17:15 05/21/17 17:15 05/21/17 17:15 05/21/17 17:15 <Basilia Calderón - Last Filed: 05/21/17 21:36> ED Treatment Course - LABORATORY CBC & Chemistry Diagram: 05/21/17 21:00 05/21/17 21:00 - ADDITIONAL ORDERS Additional order review: 05/21/17 21:00 RBC 3.68 L MCV 82.9 MCHC 33.4 RDW 22.0 H D MPV 7.2 L Neutrophils % 70.5 Lymphocytes % 20.9 D Monocytes % 6.1 Eosinophils % 1.8 D Basophils % 0.7 <Basilia Calderón - Last Filed: 05/21/17 21:36> Medical Decision Making - Medical Decision Making 05/21/17 18:57 Patient is a 77-year-old male past medical history of Alzheimer's, HLD, NIDDM, HTN, an STEMI, bilateral BKA who presents to the emergency department for G- tube replacement. Multiple attempts were made to replace the G-tube. However a 20-gauge Maltese, 18-gauge Maltese or 16-gauge friend's would not pass through the opening. Given that the opening is relatively new we will have the patient seen by GI for replacement. Will admit. <Nai Blanc - Last Filed: 05/21/17 18:52> *DC/Admit/Observation/Transfer <Nai Blanc - Last Filed: 05/21/17 18:52> - Discharge Dispostion Admit: Yes <Basilia Calderón - Last Filed: 05/21/17 21:36> Diagnosis at time of Disposition: Dislodged gastrostomy tube - Discharge Dispostion Condition at time of disposition: Fair - Referrals Referrals: Remigio Del Toro MD [Primary Care Provider] - - Patient Instructions - Post Discharge Activity
[2017-05-21 21:05] LABS: BASOPHIL 0.7 % (0-2.0); EOSINOPHIL 1.8 % (0-4.5); MCH 27.7 pg (25.7-33.7); MCHC 33.4 g/dl (32.0-35.9); MEAN CELL VOLUME 82.9 fl (80-96); MEAN PLT VOLUME 7.2 fl (7.5-11.1); NEUTROPHILS 70.5 % (42.8-82.8); PLATELET COUNT 484 K/MM3 (134-434)
--- NOTE | 2017-05-21 21:20 | HP ---
CHIEF COMPLAINT: GT out PCP: Alverto HISTORY OF PRESENT ILLNESS: This is a 77 year old male with a past medical history of Alzheimer's disease, HLD, HTN, NIDDM, B/L BKA presented to the ED with GT out. As per ED chart, GT out since 2pm and Ed was unable to replace. Unable to obtain history from patient due to dementia, obtained from chart. Pt denies pain. ER course was notable for: (1) GT out Recent Travel: none PAST MEDICAL HISTORY: Alzheimer's disease HTN HLD STEMI NIDDM with PVD PAST SURGICAL HISTORY: B/L BKA, L 04/24/17, R 04/10/17 Social History: Smoking: unk Alcohol: unk Drugs: unk Family History: unknown Allergies No Known Allergies Allergy (Verified 05/07/17 22:17) HOME MEDICATIONS: 3 Medication Instructions Recorded Acetaminophen [Pain Relief] 650 mg PO BID 02/24/17 Donepezil HCl [Aricept -] 10 mg PO DAILY tablet 03/21/17 Clonazepam [Klonopin -] 0.5 mg PO Q12H MDD 2 04/07/17 Digoxin [Lanoxin -] 0.125 mg PO DAILY #30 tablet 04/29/17 Aspirin [ASA -] 81 mg PO DAILY #30 tab.chew 05/16/17 FENTANYL 12mcg PATCH [DURAGESIC 1 patch TD Q72H #20 patch MDD 1 05/16/17 12mcg PATCH -] Warfarin Na [Coumadin -] 3 mg PO DAILY@1800 #30 tablet 05/16/17 Ascorbic Acid [Vitamin C Oral 500 mg GT DAILY 05/21/17 Solution -] Carvedilol 3.125 mg GT ONCE 05/21/17 Doxazosin Mesylate [Cardura] 1 mg GT ONCE 05/21/17 REVIEW OF SYSTEMS CONSTITUTIONAL: Absent: fever, chills, diaphoresis, generalized weakness, malaise, loss of appetite, weight change HEENT: Absent: rhinorrhea, nasal congestion, throat pain, throat swelling, difficulty swallowing, mouth swelling, ear pain, eye pain, visual changes CARDIOVASCULAR: Absent: chest pain, syncope, palpitations, irregular heart rate, lightheadedness , peripheral edema RESPIRATORY: Absent: cough, shortness of breath, dyspnea with exertion, orthopnea, wheezing, stridor, hemoptysis GASTROINTESTINAL: Absent: abdominal pain, abdominal distension, nausea, vomiting, diarrhea, constipation, melena, hematochezia GENITOURINARY: Absent: dysuria, frequency, urgency, hesitancy, hematuria, flank pain, genital pain MUSCULOSKELETAL: Absent: myalgia, arthralgia, joint swelling, back pain, neck pain SKIN: Absent: rash, itching, pallor HEMATOLOGIC/IMMUNOLOGIC: Absent: easy bleeding, easy bruising, lymphadenopathy, frequent infections ENDOCRINE: Absent: unexplained weight gain, unexplained weight loss, heat intolerance, cold intolerance NEUROLOGIC: Absent: headache, focal weakness or paresthesias, dizziness, unsteady gait, seizure, mental status changes, bladder or bowel incontinence PSYCHIATRIC: Absent: anxiety, depression, suicidal or homicidal ideation, hallucinations. PHYSICAL EXAMINATION Vital Signs - 24 hr 3 05/21/ 17:15 Temperature 98.9 F Pulse Rate 84 Respiratory 20 Rate Blood Pressure 116/88 O2 Sat by Pulse 97 Oximetry (%) GENERAL: Awake, alert, and oriented to person only, in no acute distress. HEAD: Normal with no signs of trauma. EYES: Pupils equal, round and reactive to light, extraocular movements intact, sclera anicteric, conjunctiva clear. No lid lag. EARS, NOSE, THROAT: Ears normal, nares patent, oropharynx clear without exudates. Moist mucous membranes. NECK: Normal range of motion, supple without lymphadenopathy, JVD, or masses. LUNGS: Breath sounds equal, clear to auscultation bilaterally. No wheezes, and no crackles. No accessory muscle use. HEART: Regular rate and rhythm, normal S1 and S2 without murmur, rub or gallop. ABDOMEN: Soft, nontender, not distended, normoactive bowel sounds, no guarding, no rebound, no masses. No hepatomegaly or splenomegaly. MUSCULOSKELETAL: Normal range of motion at all joints. No bony deformities or tenderness. No CVA tenderness. UPPER EXTREMITIES: 2+ pulses, warm, well-perfused. No cyanosis. No clubbing. No peripheral edema. LOWER EXTREMITIES: warm, well-perfused. No calf tenderness. No peripheral edema. b/l BKA, left with dehiscence to lateral aspects of wound with slough and foul odor, right wound with dehiscence across wound, + slough, foul odor NEUROLOGICAL: Cranial nerves II-XII intact. Normal speech. Normal gait. PSYCHIATRIC: Cooperative. Good eye contact. Appropriate mood and affect. SKIN: Warm, dry, normal turgor, no rashes or lesions noted, normal capillary refill. Laboratory Results - last 24 hr 3 05/21/17 05/21/17 21:00 21:00 WBC 8.0 RBC 3.68 L Hgb 10.2 L D Hct 30.5 L D MCV 82.9 MCH 27.7 MCHC 33.4 RDW 22.0 H D Plt Count 484 H MPV 7.2 L Neutrophils % 70.5 Lymphocytes % 20.9 D Monocytes % 6.1 Eosinophils % 1.8 D Basophils % 0.7 Sodium 138 Potassium 4.6 Chloride 101 Carbon Dioxide 31 Anion Gap 6 L BUN 20 H Creatinine 0.4 L Creat Clearance w eGFR > 60 Random Glucose 133 H D Calcium 7.6 L Total Bilirubin 0.3 D AST 20 ALT 19 D Alkaline Phosphatase 94 Total Protein 6.0 L Albumin 1.5 L D ASSESSMENT/PLAN: 77yM with PMH Alzheimers disease, HTN, HLD, STEMI, NIDDM s/p BKA presented with GT out. GT dislodged - GI consult for replacement HTN/HLD - cont home meds NIDDM - cont home meds - BGM AC/HS with sliding scale PVD s/p BKA with wound dehiscence - no s/s active acute infection requiring antibiotics - collagenase to b/l stumps - vascular consult here with outpatient treatment at correction DVT PPX - chemoprophylaxis deferred with expected LOS<48h FEN - NS @ 50cc/hr - BMP in am - NPO Dispo: Pt currently requires inpatient management of his emergent condition. Visit type - Emergency Visit Emergency Visit: Yes ED Registration Date: 05/21/17 Care time: The patient presented to the Emergency Department on the above date and was hospitalized for further evaluation of their emergent condition. - New Patient This patient is new to me today: Yes Date on this admission: 05/21/17 - Critical Care Critical Care patient: No
[2017-05-21 21:39] LABS: ALBUMIN 1.5 g/dl (3.4-5.0); ANION GAP 6 (8-16); CALCIUM 7.6 mg/dL (8.5-10.1); CO2 31 mmol/L (21-32); GLUCOSE,RANDOM 133 mg/dL (74-106)
[2017-05-21 21:42] LABS: ALK PHOS 94 U/L (45-117); BILIRUBIN,TOTAL 0.3 mg/dL (0.2-1.0); CREATININE 0.4 mg/dL (0.7-1.3); SGOT/AST 20 U/L (15-37); SGPT/ALT 19 U/L (12-78)
[2017-05-21 21:59] LABS: INR 1.62 (0.82-1.09); PROTHROMBIN TIME (PATIENT) 18.3 SEC (9.98-11.88)
[2017-05-21] MEDS ORDERED: SODIUM CHLORIDE 1,000 ML IV SCH (22:00)
[2017-05-21 22:26] LABS: ANISOCYTOSIS 2+; HYPOCHROMIA 1+; MICROCYTOSIS 1+; PLATELET ESTIMATE ADEQUATE (NORMAL)
[2017-05-21 22:27] LABS: MACROCYTOSIS 1+
[2017-05-21] MEDS ORDERED: HEMOQUE TEST 1 EACH EACH ONE (23:27)
[2017-05-22] MEDS: INSULIN SLIDING SCALE (NOVOLOG) 1 VIAL SQ SCH ×5 (00:01→23:16)
[2017-05-22 00:07] LABS: URINE APPEARANCE CLOUDY; URINE BILIRUBIN NEGATIVE (NEGATIVE); URINE BLOOD NEGATIVE (NEGATIVE); URINE COLOR YELLOW; URINE GLUCOSE (UA) NEGATIVE (NEGATIVE); URINE KETONE NEGATIVE (NEGATIVE); URINE NITRITE NEGATIVE (NEGATIVE); URINE PROTEIN NEGATIVE (NEGATIVE)
[2017-05-22 09:55] LABS: INR 1.59 (0.82-1.09)
[2017-05-22] MEDS ORDERED: fentaNYL 12mcg/hr PATCH.TD72 TD SCH (10:00)
[2017-05-22 10:01] LABS: BASOPHIL 0.7 % (0-2.0); EOSINOPHIL 1.2 % (0-4.5); MCH 26.9 pg (25.7-33.7); MCHC 31.9 g/dl (32.0-35.9); MEAN CELL VOLUME 84.1 fl (80-96); MEAN PLT VOLUME 7.3 fl (7.5-11.1); NEUTROPHILS 64.4 % (42.8-82.8); PLATELET COUNT 503 K/MM3 (134-434); WHITE BLOOD COUNT 9.3 K/mm3 (4.0-10.0)
[2017-05-22 10:13] LABS: URINE LEUK ESTERASE 1+ (NEGATIVE)
[2017-05-22 10:15] LABS: URINE BACTERIA MODERATE /hpf (NEGATIVE); URINE RBC 0-3 /hpf (0-3)
[2017-05-22 11:23] LABS: ANION GAP 7 (8-16); CALCIUM 7.8 mg/dL (8.5-10.1); CO2 30 mmol/L (21-32); GLUCOSE,RANDOM 108 mg/dL (74-106)
[2017-05-22 11:24] LABS: CREATININE 0.4 mg/dL (0.7-1.3); PHOSPHOROUS 3.4 mg/dL (2.5-4.9)
[2017-05-22] MEDS: MULTIVIT-MINERALS 236 ML ML PEG SCH (11:29)
[2017-05-22] MEDS: ASPIRIN 81 MG CHEWABLE TABLETS PEG SCH (11:29)
[2017-05-22] MEDS: DONEPEZIL HCL 10 MG TABLET (FP) PEG SCH (11:29)
[2017-05-22] MEDS: CARVEDILOL 3.125 MG TABLET (FP) PEG SCH ×2 (11:29→22:22)
[2017-05-22] MEDS: clonazePAM 0.5 MG TABLET PEG SCH ×2 (11:30→22:22)
[2017-05-22] MEDS: DIGOXIN 0.125 MG TABLET (FP) PEG SCH (11:30)
[2017-05-22] MEDS: ASCORBIC ACID 500 MG/5 ML UNIT DOSE CUP PEG SCH (11:31)
--- NOTE | 2017-05-22 11:45 | PN ---
Progress Note, Physician Chief Complaint: Events noted I was notified by nurse that GT was pulled out by pt-- this is the third time that pt pulled it out despite abdominal binder and Mittens. No distress can not take PO - Current Medication List Current Medications: Active Medications Ascorbic Acid (Vitamin C Oral Solution -) 500 mg PEG DAILY [facility] Aspirin (Asa -) 81 mg PEG DAILY [facility] Carvedilol (Coreg -) 3.125 mg PEG BID [facility] Clonazepam (Klonopin -) 0.5 mg PEG Q12H [facility] Collagenase (Santyl -) 1 applic TP DAILY [facility] Digoxin (Lanoxin -) 0.125 mg PEG DAILY [facility] Donepezil HCl (Aricept -) 10 mg PEG DAILY [facility] Doxazosin Mesylate (Cardura -) 1 mg PEG DAILY@1800 [facility] Fentanyl (Duragesic 12mcg Patch -) 1 patch TD Q72H [facility] Last Admin: 05/22/17 09:18 Dose: 1 patch Sodium Chloride (Normal Saline -) 1,000 mls @ 50 mls/hr IV ASDIR [facility] Stop: 05/22/17 21:53 Last Admin: 05/22/17 00:01 Dose: 50 mls/hr Insulin Aspart (Novolog Vial Sliding Scale -) 0 vial SQ ACHS [facility] PRN Reason: Protocol Last Admin: 05/22/17 06:40 Dose: Not Given Warfarin Sodium (Coumadin -) 3 mg PEG DAILY@2100 [facility] - Objective Vital Signs: Vital Signs Temperature 97.7 F 05/22/17 05:59 Pulse Rate 103 H 05/22/17 05:59 Respiratory Rate 20 05/22/17 05:59 Blood Pressure 125/61 05/22/17 05:59 O2 Sat by Pulse Oximetry (%) 95 05/22/17 05:39 Constitutional: Yes: No Distress, Calm Cardiovascular: Yes: Pulse Irregular Respiratory: Yes: CTA Bilaterally Gastrointestinal: Yes: Normal Bowel Sounds, Soft, Other (GT stoma-- not patent) . No: Distention, Tenderness Extremities: Yes: Amputation (B/L BKA) Labs: CBC, BMP 05/22/17 06:00 INR, PTT INR 1.59 (0.82-1.09) H 05/22/17 09:00 Problem List - Problems (1) Hx of BKA Assessment/Plan: B.L Code(s): Z89.519 - ACQUIRED ABSENCE OF UNSPECIFIED LEG BELOW KNEE (2) Dislodged gastrostomy tube Code(s): Z43.1 - ENCOUNTER FOR ATTENTION TO GASTROSTOMY (3) Atrial fibrillation Code(s): I48.91 - UNSPECIFIED ATRIAL FIBRILLATION Qualifiers: Atrial fibrillation type: persistent Qualified Code(s): I48.1 - Persistent atrial fibrillation (4) Dementia Code(s): F03.90 - UNSPECIFIED DEMENTIA WITHOUT BEHAVIORAL DISTURBANCE Qualifiers: Dementia type: Alzheimer's disease Dementia behavioral disturbance: without behavioral disturbance (5) HTN (hypertension) Code(s): I10 - ESSENTIAL (PRIMARY) HYPERTENSION Assessment/Plan PLAN IV fluids GI eval for replacing peg tube Vascular called for BKA stump Novolog sliding scale NPO
[2017-05-22] MEDS ORDERED: PT OWN MED DRAWER 7, Y5N ONE (11:59)
[2017-05-22] MEDS: COLLAGENASE CLOSTRIDIUM HIST. 30 GRAMS TUBE TP SCH (12:26)
[2017-05-22] MEDS: DEXTROSE 5%-0.45% SALINE 1,000 ML IV SCH (12:27)
--- NOTE | 2017-05-22 15:44 | PN ---
Progress Note (short form) - Note Progress Note: Vascular Surgery Pt seen and examined. Left bka dressing changed. Slough to wounds. cont santyl to left bka stump. cont present care Devan bellamy DO
[2017-05-22] MEDS: DOXAZOSIN MESYLATE 1 MG TABLET PEG SCH (18:16)
--- NOTE | 2017-05-22 18:32 | CON.GI ---
Consult Consult Specialty:: gastroenterology Referred by:: Dr Rebecca Smith - History of Present Illness Chief Complaint: dislodged g-tube History of Present Illness: &7 y/o male was noted to have multiple attempts to pull out the g-tube despite applying an abdominal girdle. 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: Alzheimer's, Dementia Cardio/Vascular: Yes: AFIB, CHF, HTN, Hyperlipdemia Psych: Yes: Bipolar, Other Endocrine: Yes: Diabetes Mellitus Additional Medical History: diabetic and PAD associated foot ulcers bilaterally - Past Surgical History Past Surgical History: Yes: None - Alcohol/Substance Use Hx Alcohol Use: No - Smoking History Smoking history: Unknown if ever smoked Have you smoked in the past 12 months: No - Social History Usual Living Arrangement: With Child ADL: Family Assistance History of Recent Travel: No Home Medications - Allergies Allergies/Adverse Reactions: Allergies Allergy/AdvReac Type Severity Reaction Status Date / Time No Known Allergies Allergy Verified 05/21/17 22:55 - Home Medications Home Medications: Ambulatory Orders Acetaminophen [Pain Relief] 650 mg PEG BID 02/24/17 Donepezil HCl [Aricept -] 10 mg PO DAILY tablet 03/21/17 Clonazepam [Klonopin -] 0.5 mg PEG Q12H MDD 2 04/07/17 FENTANYL 12mcg PATCH [DURAGESIC 12mcg PATCH -] 1 patch TD Q72H #20 patch MDD 1 05/16/17 Ascorbic Acid [Vitamin C Oral Solution -] 500 mg GT DAILY 05/21/17 Aspirin [ASA -] 81 mg PEG DAILY 05/21/17 Carvedilol 3.125 mg GT BID 05/21/17 Digoxin [Lanoxin -] 0.125 mg PEG DAILY 05/21/17 Doxazosin Mesylate [Cardura] 1 mg GT ONCE 05/21/17 Multivitamins [Tab-A-Vit -] 1 tab PEG DAILY 05/21/17 Warfarin Na [Coumadin -] 3 mg PEG DAILY@2100 05/21/17 Physical Exam-GI Vital Signs: Vital Signs Temperature 98.2 F 05/22/17 14:00 Pulse Rate 118 H 05/22/17 14:00 Respiratory Rate 22 05/22/17 14:00 Blood Pressure 136/71 05/22/17 14:00 O2 Sat by Pulse Oximetry (%) 95 05/22/17 05:39 Constitutional: Yes: Well Nourished Eyes: Yes: Conjunctiva Clear HENT: Yes: Atraumatic Neck: Yes: Supple Cardiovascular: Yes: Pulse Irregular Respiratory: Yes: CTA Bilaterally ...Palpate: Yes: Soft. No: Firm/Rigid, Guarding, Hepatomegaly, Mass, Pulsatile Mass, Splenomegaly, Tenderness Labs: CBC, BMP 05/22/17 06:00 05/22/17 10:30 INR, PTT INR 1.59 (0.82-1.09) H 05/22/17 09:00 Problem List - Problems (1) Dislodged gastrostomy tube Assessment/Plan: for Peg replacement tomorrow Code(s): Z43.1 - ENCOUNTER FOR ATTENTION TO GASTROSTOMY
[2017-05-22] MEDS: WARFARIN NA 3 MG TABLET PEG SCH (22:22)
[2017-05-22] MEDS ORDERED: INSULIN (NOVOLOG) ASPART 100 UNITS/ML 10ML VIAL ONE (22:24)
[2017-05-23] MEDS: DEXTROSE 5%-0.45% SALINE 1,000 ML IV SCH ×2 (03:35→12:42)
[2017-05-23] MEDS: INSULIN SLIDING SCALE (NOVOLOG) 1 VIAL SQ SCH ×4 (07:10→22:50)
[2017-05-23] MEDS: DIGOXIN 0.125 MG TABLET (FP) PEG SCH (10:35)
[2017-05-23] MEDS: DONEPEZIL HCL 10 MG TABLET (FP) PEG SCH (10:35)
[2017-05-23] MEDS: ASPIRIN 81 MG CHEWABLE TABLETS PEG SCH (10:35)
[2017-05-23] MEDS: MULTIVIT-MINERALS 236 ML ML PEG SCH (10:35)
[2017-05-23] MEDS: CARVEDILOL 3.125 MG TABLET (FP) PEG SCH ×2 (10:35→22:49)
[2017-05-23] MEDS: clonazePAM 0.5 MG TABLET PEG SCH ×2 (10:35→22:51)
[2017-05-23] MEDS: ASCORBIC ACID 500 MG/5 ML UNIT DOSE CUP PEG SCH (10:36)
[2017-05-23] MEDS: COLLAGENASE CLOSTRIDIUM HIST. 30 GRAMS TUBE TP SCH (10:40)
--- NOTE | 2017-05-23 10:44 | PN ---
Progress Note (short form) - Note Progress Note: Pt seen/ examined. Chart reviewed. awake. no distress. for peg today going to get 2 units of FFP before Vital Signs Temp 98.3 F 05/23/17 05:26 Pulse 98 H 05/23/17 05:26 Resp 18 05/23/17 05:26 BP 138/90 05/23/17 05:26 Pulse Ox 96 05/22/17 21:00 Intake & Output 05/22/17 05/22/17 05/23/17 11:59 23:59 11:59 Intake Total 800 Output Total 500 500 200 Balance -500 300 -200 Intake: IV 800 D5-1/2Ns - 1,000 ml @ 83 800 mls/hr IV ASDIR [facility] Rx#: [id number] Oral 0 Output: Urine 500 500 200 [place] 500 500 200 Other: Voiding Method Indwelling Catheter Indwelling Catheter Bowel Movement No No # Bowel Movements 1 Height 5 ft 6 in CBC, BMP 05/22/17 06:00 05/22/17 10:30 INR, PTT INR 1.59 (0.82-1.09) H 05/22/17 09:00 Physical Exam. Constitutional: Yes: No Distress, Calm Cardiovascular: Yes: Pulse Irregular Respiratory: Yes: CTA Bilaterally Gastrointestinal: Yes: Normal Bowel Sounds, Soft, Other (GT stoma-- not patent) . No: Distention, Tenderness Extremities: Yes: Amputation (B/L BKA) [place] + Problem List - Problems (1) Hx of BKA Assessment/Plan: B.L Code(s): Z89.519 - ACQUIRED ABSENCE OF UNSPECIFIED LEG BELOW KNEE (2) Dislodged gastrostomy tube Code(s): Z43.1 - ENCOUNTER FOR ATTENTION TO GASTROSTOMY (3) Atrial fibrillation Code(s): I48.91 - UNSPECIFIED ATRIAL FIBRILLATION Qualifiers: Atrial fibrillation type: persistent Qualified Code(s): I48.1 - Persistent atrial fibrillation (4) Dementia Code(s): F03.90 - UNSPECIFIED DEMENTIA WITHOUT BEHAVIORAL DISTURBANCE Qualifiers: Dementia type: Alzheimer's disease Dementia behavioral disturbance: without behavioral disturbance (5) HTN (hypertension) Code(s): I10 - ESSENTIAL (PRIMARY) HYPERTENSION Assessment/Plan IV fluids peg tube today Vascular evaluated BKA stump Novolog sliding scale NPO will follow discussed with nursing staff.
[2017-05-23] MEDS: DOXAZOSIN MESYLATE 1 MG TABLET PEG SCH (17:50)
[2017-05-23] MEDS: WARFARIN NA 3 MG TABLET PEG SCH (21:51)
[2017-05-24] MEDS: INSULIN SLIDING SCALE (NOVOLOG) 1 VIAL SQ SCH ×4 (06:24→22:24)
[2017-05-24] MEDS ORDERED: PT OWN MED DRAWER 7, Y5N ONE ×3 (09:59→17:04)
[2017-05-24] MEDS: DONEPEZIL HCL 10 MG TABLET (FP) PEG SCH (10:58)
[2017-05-24] MEDS: ASPIRIN 81 MG CHEWABLE TABLETS PEG SCH (10:59)
[2017-05-24] MEDS: MULTIVIT-MINERALS 236 ML ML PEG SCH (11:00)
[2017-05-24] MEDS: DIGOXIN 0.125 MG TABLET (FP) PEG SCH (11:01)
[2017-05-24] MEDS: CARVEDILOL 3.125 MG TABLET (FP) PEG SCH ×2 (11:01→22:25)
[2017-05-24] MEDS: clonazePAM 0.5 MG TABLET PEG SCH ×2 (11:01→22:25)
[2017-05-24] MEDS: COLLAGENASE CLOSTRIDIUM HIST. 30 GRAMS TUBE TP SCH (11:02)
[2017-05-24] MEDS: ASCORBIC ACID 500 MG/5 ML UNIT DOSE CUP PEG SCH (11:02)
--- NOTE | 2017-05-24 13:22 | PN ---
Progress Note (short form) - Note Progress Note: s/p peg comfortable. afebrile Vital Signs Temp 98.0 F 05/24/17 09:07 Pulse 75 05/24/17 11:01 Resp 14 05/24/17 09:07 BP 138/60 05/24/17 09:07 Pulse Ox 99 05/24/17 09:03 Intake & Output 05/23/17 05/24/17 05/24/17 23:59 11:59 23:59 Intake Total 1036 100 Output Total 400 300 Balance 636 -200 Intake: IV 700 D5-1/2Ns - 1,000 ml @ 83 700 mls/hr IV ASDIR [facility] Rx#: [id number] Oral 0 Fresh Frozen Plasma 336 Tube Irrigant 100 Output: Urine 400 300 [place] 400 300 Other: Voiding Method Indwelling Catheter Indwelling Catheter Bowel Movement No # Bowel Movements 1 Active Medications Ascorbic Acid (Vitamin C Oral Solution -) 500 mg PEG DAILY [facility] Last Admin: 05/24/17 11:02 Dose: 500 mg Aspirin (Asa -) 81 mg PEG DAILY [facility] Last Admin: 05/24/17 10:59 Dose: 81 mg Carvedilol (Coreg -) 3.125 mg PEG BID [facility] Last Admin: 05/24/17 11:01 Dose: 3.125 mg Clonazepam (Klonopin -) 0.5 mg PEG Q12H [facility] Last Admin: 05/24/17 11:01 Dose: 0.5 mg Collagenase (Santyl -) 1 applic TP DAILY [facility] Last Admin: 05/24/17 11:02 Dose: 1 applic Digoxin (Lanoxin -) 0.125 mg PEG DAILY [facility] Last Admin: 05/24/17 11:01 Dose: 0.125 mg Donepezil HCl (Aricept -) 10 mg PEG DAILY [facility] Last Admin: 05/24/17 10:58 Dose: 10 mg Doxazosin Mesylate (Cardura -) 1 mg PEG DAILY@1800 [facility] Last Admin: 05/23/17 17:50 Dose: Not Given Fentanyl (Duragesic 12mcg Patch -) 1 patch TD Q72H [facility] Last Admin: 05/22/17 09:18 Dose: 1 patch Dextrose/Sodium Chloride (D5-1/2ns -) 1,000 mls @ 83 mls/hr IV ASDIR [facility] Last Admin: 05/23/17 12:42 Dose: 83 mls/hr Insulin Aspart (Novolog Vial Sliding Scale -) 0 vial SQ ACHS [facility] PRN Reason: Protocol Last Admin: 05/24/17 11:08 Dose: Not Given CBC, BMP 05/22/17 06:00 05/22/17 10:30 Microbiology 05/22/17 00:00 Urine Culture - Final Urine - Urine [place] NO GROWTH OBTAINED Physical Exam. Constitutional: Yes: No Distress, comfortable Cardiovascular: Yes: Pulse Irregular Respiratory: Yes: CTA Bilaterally Gastrointestinal: Yes: Normal Bowel Sounds, Soft, Other (GT stoma-- not patent) . No: Distention, Tenderness Extremities: Yes: Amputation (B/L BKA) [place] + Problem List - Problems (1) Hx of BKA Assessment/Plan: Code(s): Z89.519 - ACQUIRED ABSENCE OF UNSPECIFIED LEG BELOW KNEE (2) Dislodged gastrostomy tube Code(s): Z43.1 - ENCOUNTER FOR ATTENTION TO GASTROSTOMY (3) Atrial fibrillation Code(s): I48.91 - UNSPECIFIED ATRIAL FIBRILLATION Qualifiers: Atrial fibrillation type: persistent Qualified Code(s): I48.1 - Persistent atrial fibrillation (4) Dementia Code(s): F03.90 - UNSPECIFIED DEMENTIA WITHOUT BEHAVIORAL DISTURBANCE Qualifiers: Dementia type: Alzheimer's disease Dementia behavioral disturbance: without behavioral disturbance (5) HTN (hypertension) Code(s): I10 - ESSENTIAL (PRIMARY) HYPERTENSION Assessment/Plan s/p peg tube start on feeding bgm reviewed check hba1c will follow discussed with n staff.
[2017-05-24] MEDS: DEXTROSE 5%-0.45% SALINE 1,000 ML IV SCH (17:42)
[2017-05-24] MEDS: WARFARIN NA 3 MG TABLET PO SCH (17:42)
[2017-05-24] MEDS: DOXAZOSIN MESYLATE 1 MG TABLET PEG SCH (17:42)
[2017-05-24] MEDS: ACETAMINOPHEN 650 MG/20.3 ML ORAL SOLUTION (CUPS) GT PRN (22:41)
[2017-05-25] MEDS: DEXTROSE 5%-0.45% SALINE 1,000 ML IV SCH ×2 (06:46→17:39)
[2017-05-25] MEDS: INSULIN SLIDING SCALE (NOVOLOG) 1 VIAL SQ SCH ×4 (06:46→22:00)
[2017-05-25] MEDS: ACETAMINOPHEN 650 MG/20.3 ML ORAL SOLUTION (CUPS) GT PRN (06:46)
[2017-05-25] MEDS ORDERED: INSULIN DETEMIR 100 UNITS/ML MDV SQ ONE (07:01)
[2017-05-25] MEDS ORDERED: INSULIN (NOVOLOG) ASPART 100 UNITS/ML 10ML VIAL ONE (07:02)
[2017-05-25 08:09] LABS: BASOPHIL 0.9 % (0-2.0); EOSINOPHIL 1.3 % (0-4.5); MCHC 31.7 g/dl (32.0-35.9); MEAN CELL VOLUME 85.3 fl (80-96); MEAN PLT VOLUME 7.2 fl (7.5-11.1); NEUTROPHILS 64.8 % (42.8-82.8); PLATELET COUNT 392 K/MM3 (134-434); RDW 22.3 % (11.9-15.9); WHITE BLOOD COUNT 7.4 K/mm3 (4.0-10.0)
[2017-05-25 08:42] LABS: INR 1.49 (0.82-1.09); PROTHROMBIN TIME (PATIENT) 16.8 SEC (9.98-11.88)
[2017-05-25 09:21] LABS: ALBUMIN 1.5 g/dl (3.4-5.0); ALK PHOS 93 U/L (45-117); ANION GAP 11 (8-16); BILIRUBIN,TOTAL 0.4 mg/dL (0.2-1.0); CALCIUM 7.6 mg/dL (8.5-10.1); CO2 26 mmol/L (21-32); CREATININE 0.4 mg/dL (0.7-1.3); GLUCOSE,RANDOM 113 mg/dL (74-106); SGOT/AST 19 U/L (15-37); SGPT/ALT 19 U/L (12-78); TOT PROT 5.6 g/dl (6.4-8.2)
[2017-05-25] MEDS: MULTIVIT-MINERALS 236 ML ML PEG SCH (10:00)
[2017-05-25] MEDS: DONEPEZIL HCL 10 MG TABLET (FP) PEG SCH (10:00)
[2017-05-25] MEDS: clonazePAM 0.5 MG TABLET PEG SCH ×2 (10:00→21:30)
[2017-05-25] MEDS: ASCORBIC ACID 500 MG/5 ML UNIT DOSE CUP PEG SCH (10:00)
[2017-05-25] MEDS: CARVEDILOL 3.125 MG TABLET (FP) PEG SCH ×2 (10:00→21:30)
--- NOTE | 2017-05-25 10:16 | PN ---
Progress Note (short form) - Note Progress Note: pulled g tube again today - despite binder arndt placed for stoma opening-- gi recalled otherwise comfortable Vital Signs Temp 97.5 F L 05/25/17 02:05 Pulse 113 H 05/25/17 02:05 Resp 17 05/25/17 02:05 BP 105/70 05/25/17 02:05 Pulse Ox 99 05/25/17 01:00 Intake & Output 05/24/17 05/24/17 05/25/17 11:59 23:59 11:59 Intake Total 437 861 8564 Output Total 300 825 700 Balance -378 578 4377 Intake: IV 996 996 D5-1/2Ns - 1,000 ml @ 83 996 996 mls/hr IV ASDIR [facility] Rx#: [id number] Tube Feeding 600 Tube Irrigant 100 730 Output: Urine 300 825 700 Arndt 300 825 700 Other: Voiding Method Indwelling Catheter Indwelling Catheter Active Medications Acetaminophen (Tylenol Oral Solution -) 650 mg GT Q6H PRN PRN Reason: FEVER OR PAIN Last Admin: 05/25/17 06:46 Dose: 650 mg Ascorbic Acid (Vitamin C Oral Solution -) 500 mg PEG DAILY [facility] Last Admin: 05/24/17 11:02 Dose: 500 mg Aspirin (Asa -) 81 mg PEG DAILY [facility] Last Admin: 05/24/17 10:59 Dose: 81 mg Carvedilol (Coreg -) 3.125 mg PEG BID [facility] Last Admin: 05/24/17 22:25 Dose: 3.125 mg Clonazepam (Klonopin -) 0.5 mg PEG Q12H [facility] Last Admin: 05/24/17 22:25 Dose: 0.5 mg Collagenase (Santyl -) 1 applic TP DAILY [facility] Last Admin: 05/24/17 11:02 Dose: 1 applic Digoxin (Lanoxin -) 0.125 mg PEG DAILY [facility] Last Admin: 05/24/17 11:01 Dose: 0.125 mg Donepezil HCl (Aricept -) 10 mg PEG DAILY [facility] Last Admin: 05/24/17 10:58 Dose: 10 mg Doxazosin Mesylate (Cardura -) 1 mg PEG DAILY@1800 [facility] Last Admin: 05/24/17 17:42 Dose: 1 mg Fentanyl (Duragesic 12mcg Patch -) 1 patch TD Q72H [facility] Last Admin: 05/22/17 09:18 Dose: 1 patch Insulin Aspart (Novolog Vial Sliding Scale -) 0 vial SQ ACHS [facility] PRN Reason: Protocol Last Admin: 05/25/17 06:46 Dose: 2 units Warfarin Sodium (Coumadin -) 3 mg PO DAILY@1800 [facility] Last Admin: 05/24/17 17:42 Dose: 3 mg Warfarin Sodium (Coumadin -) 2 mg PO ONCE@1800 ONE Stop: 05/25/17 18:01 CBC, BMP 05/25/17 07:30 05/25/17 07:30 Physical Exam. Constitutional: Yes: No Distress, comfortable Cardiovascular: Yes: Pulse Irregular Respiratory: Yes: CTA Bilaterally Gastrointestinal: Yes: Normal Bowel Sounds, Soft, Other (GT stoma-- not patent) . No: Distention, Tenderness Extremities: Yes: Amputation (B/L BKA) Arndt + Problem List - Problems (1) Hx of BKA Assessment/Plan: Code(s): Z89.519 - ACQUIRED ABSENCE OF UNSPECIFIED LEG BELOW KNEE (2) Dislodged gastrostomy tube Code(s): Z43.1 - ENCOUNTER FOR ATTENTION TO GASTROSTOMY (3) Atrial fibrillation Code(s): I48.91 - UNSPECIFIED ATRIAL FIBRILLATION Qualifiers: Atrial fibrillation type: persistent Qualified Code(s): I48.1 - Persistent atrial fibrillation (4) Dementia Code(s): F03.90 - UNSPECIFIED DEMENTIA WITHOUT BEHAVIORAL DISTURBANCE Qualifiers: Dementia type: Alzheimer's disease Dementia behavioral disturbance: without behavioral disturbance (5) HTN (hypertension) Code(s): I10 - ESSENTIAL (PRIMARY) HYPERTENSION Assessment/Plan s/p peg tube-- pulled again continue fluids gi to follow mittens for safety. will follow
[2017-05-25] MEDS: DIGOXIN 0.125 MG TABLET (FP) PEG SCH (11:00)
[2017-05-25] MEDS ORDERED: fentaNYL 12mcg/hr PATCH.TD72 TD SCH (17:27)
[2017-05-25] MEDS ORDERED: FENTANYL PATCH WASTE TD PRN (17:27)
[2017-05-25] MEDS: DOXAZOSIN MESYLATE 1 MG TABLET PEG SCH (17:42)
[2017-05-25] MEDS: WARFARIN NA 3 MG TABLET PO SCH (17:42)
[2017-05-25] MEDS: COLLAGENASE CLOSTRIDIUM HIST. 30 GRAMS TUBE TP SCH (17:43)
[2017-05-25] MEDS: ASPIRIN 81 MG CHEWABLE TABLETS PEG SCH (17:44)
[2017-05-25] MEDS ORDERED: WARFARIN NA 2 MG TABLET (UD) PO ONE (18:00)
[2017-05-26] MEDS: INSULIN SLIDING SCALE (NOVOLOG) 1 VIAL SQ SCH ×4 (06:33→21:09)
--- NOTE | 2017-05-26 09:32 | PN ---
Progress Note (short form) - Note Progress Note: comfortable no new issues Active Medications Acetaminophen (Tylenol Oral Solution -) 650 mg GT Q6H PRN PRN Reason: FEVER OR PAIN Last Admin: 05/25/17 06:46 Dose: 650 mg Ascorbic Acid (Vitamin C Oral Solution -) 500 mg PEG DAILY [facility] Last Admin: 05/24/17 11:02 Dose: 500 mg Aspirin (Asa -) 81 mg PEG DAILY [facility] Last Admin: 05/24/17 10:59 Dose: 81 mg Carvedilol (Coreg -) 3.125 mg PEG BID [facility] Last Admin: 05/24/17 22:25 Dose: 3.125 mg Clonazepam (Klonopin -) 0.5 mg PEG Q12H [facility] Last Admin: 05/24/17 22:25 Dose: 0.5 mg Collagenase (Santyl -) 1 applic TP DAILY [facility] Last Admin: 05/24/17 11:02 Dose: 1 applic Digoxin (Lanoxin -) 0.125 mg PEG DAILY [facility] Last Admin: 05/24/17 11:01 Dose: 0.125 mg Donepezil HCl (Aricept -) 10 mg PEG DAILY [facility] Last Admin: 05/24/17 10:58 Dose: 10 mg Doxazosin Mesylate (Cardura -) 1 mg PEG DAILY@1800 [facility] Last Admin: 05/24/17 17:42 Dose: 1 mg Fentanyl (Duragesic 12mcg Patch -) 1 patch TD Q72H [facility] Last Admin: 05/22/17 09:18 Dose: 1 patch Insulin Aspart (Novolog Vial Sliding Scale -) 0 vial SQ ACHS [facility] PRN Reason: Protocol Last Admin: 05/25/17 06:46 Dose: 2 units Warfarin Sodium (Coumadin -) 3 mg PO DAILY@1800 [facility] Last Admin: 05/24/17 17:42 Dose: 3 mg Warfarin Sodium (Coumadin -) 2 mg PO ONCE@1800 ONE Stop: 05/25/17 18:01 CBC, BMP 05/25/17 07:30 05/25/17 07:30 Physical Exam. Constitutional: Yes: No Distress, comfortable. Cardiovascular: Yes: Pulse Irregular. Respiratory: Yes: CTA Bilaterally Gastrointestinal: Yes: Normal Bowel Sounds, Soft, Other (GT stoma-- not patent) . No: Distention, Tenderness Extremities: Yes: Amputation (B/L BKA) Arndt + Problem List - Problems (1) Hx of BKA Assessment/Plan: Code(s): Z89.519 - ACQUIRED ABSENCE OF UNSPECIFIED LEG BELOW KNEE (2) Dislodged gastrostomy tube Code(s): Z43.1 - ENCOUNTER FOR ATTENTION TO GASTROSTOMY (3) Atrial fibrillation Code(s): I48.91 - UNSPECIFIED ATRIAL FIBRILLATION Qualifiers: Atrial fibrillation type: persistent Qualified Code(s): I48.1 - Persistent atrial fibrillation (4) Dementia Code(s): F03.90 - UNSPECIFIED DEMENTIA WITHOUT BEHAVIORAL DISTURBANCE Qualifiers: Dementia type: Alzheimer's disease Dementia behavioral disturbance: without behavioral disturbance (5) HTN (hypertension) Code(s): I10 - ESSENTIAL (PRIMARY) HYPERTENSION Assessment/Plan s/p peg tube-- pulled again continue fluids gi to follow faith for safety. d/c arndt for voiding trial - discussed with nursing staff. will follow.
[2017-05-26] MEDS: DIGOXIN 0.125 MG TABLET (FP) PEG SCH (14:53)
[2017-05-26] MEDS: CARVEDILOL 3.125 MG TABLET (FP) PEG SCH ×2 (14:53→21:09)
[2017-05-26] MEDS: clonazePAM 0.5 MG TABLET PEG SCH ×2 (14:53→21:09)
[2017-05-26] MEDS: MULTIVIT-MINERALS 236 ML ML PEG SCH (14:53)
[2017-05-26] MEDS: ASPIRIN 81 MG CHEWABLE TABLETS PEG SCH (14:53)
[2017-05-26] MEDS: DONEPEZIL HCL 10 MG TABLET (FP) PEG SCH (14:53)
[2017-05-26] MEDS: ASCORBIC ACID 500 MG/5 ML UNIT DOSE CUP PEG SCH (14:54)
[2017-05-26] MEDS: COLLAGENASE CLOSTRIDIUM HIST. 30 GRAMS TUBE TP SCH (16:32)
[2017-05-26] MEDS: WARFARIN NA 3 MG TABLET PO SCH (17:57)
[2017-05-26] MEDS: DOXAZOSIN MESYLATE 1 MG TABLET PEG SCH (17:57)
--- NOTE | 2017-05-26 22:06 | PN ---
Progress Note (short form) - Note Progress Note: GI Despite ordering an abdominal binder to keep patient from pulling out newly placed PEG, he managed to pull it out Replaced tonight with a 20 Fr PEG replacement Will need gastrograffin study through the tube to ensure proper placement Please keep binder in place
[2017-05-27] MEDS: INSULIN SLIDING SCALE (NOVOLOG) 1 VIAL SQ SCH ×4 (06:22→21:42)
[2017-05-27] MEDS: DEXTROSE 5%-0.45% SALINE 1,000 ML IV SCH ×2 (09:49)
--- NOTE | 2017-05-27 11:53 | PN ---
Progress Note, Physician Chief Complaint: tube dislodged again - 3 rd time despite being on mittens and having abdominal binder - Current Medication List Current Medications: Active Medications Acetaminophen (Tylenol Oral Solution -) 650 mg GT Q6H PRN PRN Reason: FEVER OR PAIN Last Admin: 05/25/17 06:46 Dose: 650 mg Ascorbic Acid (Vitamin C Oral Solution -) 500 mg PEG DAILY [facility] Last Admin: 05/26/17 14:54 Dose: Not Given Aspirin (Asa -) 81 mg PEG DAILY [facility] Last Admin: 05/26/17 14:53 Dose: Not Given Carvedilol (Coreg -) 3.125 mg PEG BID [facility] Last Admin: 05/26/17 21:09 Dose: Not Given Clonazepam (Klonopin -) 0.5 mg PEG Q12H [facility] Last Admin: 05/26/17 21:09 Dose: Not Given Collagenase (Santyl -) 1 applic TP DAILY [facility] Last Admin: 05/26/17 16:32 Dose: 1 applic Digoxin (Lanoxin -) 0.125 mg PEG DAILY [facility] Last Admin: 05/26/17 14:53 Dose: Not Given Donepezil HCl (Aricept -) 10 mg PEG DAILY [facility] Last Admin: 05/26/17 14:53 Dose: Not Given Doxazosin Mesylate (Cardura -) 1 mg PEG DAILY@1800 [facility] Last Admin: 05/26/17 17:57 Dose: Not Given Fentanyl (Duragesic 12mcg Patch -) 1 patch TD Q72H [facility] Last Admin: 05/25/17 17:40 Dose: 1 patch Dextrose/Sodium Chloride (D5-1/2ns -) 1,000 mls @ 100 mls/hr IV ASDIR [facility] Last Admin: 05/27/17 09:49 Dose: 100 mls/hr Insulin Aspart (Novolog Vial Sliding Scale -) 0 vial SQ ACHS [facility] PRN Reason: Protocol Last Admin: 05/27/17 11:49 Dose: Not Given Miscellaneous (Duragesic Patch Waste) 1 each TD PRN PRN Last Admin: 05/25/17 17:52 Dose: 1 each Warfarin Sodium (Coumadin -) 3 mg PO DAILY@1800 [facility] Last Admin: 05/26/17 17:57 Dose: Not Given - Objective Vital Signs: Vital Signs Temperature 97.4 F L 05/27/17 06:00 Pulse Rate 106 H 05/27/17 06:00 Respiratory Rate 18 05/27/17 06:00 Blood Pressure 154/87 05/27/17 06:00 O2 Sat by Pulse Oximetry (%) 99 05/27/17 01:00 Constitutional: Yes: No Distress Cardiovascular: Yes: Pulse Irregular Respiratory: Yes: CTA Bilaterally Gastrointestinal: Yes: Normal Bowel Sounds, Soft. No: Distention, Tenderness Extremities: Yes: Amputation Labs: CBC, BMP 05/25/17 07:30 05/25/17 07:30 INR, PTT INR 1.49 (0.82-1.09) H 05/25/17 07:30 Problem List - Problems (1) Hx of BKA Code(s): Z89.519 - ACQUIRED ABSENCE OF UNSPECIFIED LEG BELOW KNEE (2) Dislodged gastrostomy tube Code(s): Z43.1 - ENCOUNTER FOR ATTENTION TO GASTROSTOMY (3) Atrial fibrillation Code(s): I48.91 - UNSPECIFIED ATRIAL FIBRILLATION Qualifiers: Atrial fibrillation type: persistent Qualified Code(s): I48.1 - Persistent atrial fibrillation (4) Dementia Code(s): F03.90 - UNSPECIFIED DEMENTIA WITHOUT BEHAVIORAL DISTURBANCE Qualifiers: Dementia type: Alzheimer's disease Dementia behavioral disturbance: without behavioral disturbance (5) HTN (hypertension) Code(s): I10 - ESSENTIAL (PRIMARY) HYPERTENSION Assessment/Plan PLAN IV fluids spoke with DR Mandujano for replacing peg tube swallow eval -- reassess dysphagia Novolog sliding scale Lovenox sc for bridging
--- NOTE | 2017-05-27 12:39 | PN ---
Progress Note (short form) - Note Progress Note: Patient g-tube dislodged again. s/p Peg exchange.This was replaced with a Fr 18 replacement tube R> gastrograffins study prior to study Problem List - Problems (1) Dislodged gastrostomy tube Code(s): Z43.1 - ENCOUNTER FOR ATTENTION TO GASTROSTOMY
[2017-05-27] MEDS: ENOXAPARIN NA (PORCINE) 60 MG/0.6 ML DISP.SYRIN SQ SCH ×2 (12:55→21:32)
--- NOTE | 2017-05-27 12:56 | CONSULT ---
Admitting History and Physical - Primary Care Physician PCP: Remigio Del Toro - Admission History of Present Illness: This is a 77 year old male with a past medical history of Alzheimer's disease, HLD, HTN, NIDDM, B/L BKA with pt repeatedly pulling out PEG. This is my first consult with this pt. - Past Medical History ASSOCIATE DIRECTOR: Yes: Alzheimer's, Dementia Cardiovascular: Yes: AFIB, CHF, HTN, Hyperlipdemia Heme/Onc: Yes: Anemia Psych: Yes: Bipolar, Other Endocrine: Yes: Diabetes Mellitus - Past Surgical History Past Surgical History: Yes: None - Smoking History Smoking history: Unknown if ever smoked Have you smoked in the past 12 months: No - Alcohol/Substance Use Hx Alcohol Use: No - Social History ADL: Family Assistance History of Recent Travel: No History - Admission Reason For Visit: DISLODGED GASTROSTOMY TUBE - General Mental Status: Awake and Alert, Able to Follow Commands Attention: Intact - Hearing Hearing: Normal Speech Evaluation - Communication Primary Language: KOSOVAN Communication: Yes: Within Normal Limits, Language Barrier - Speech Production Intelligibility: Yes: WNL - Speech Characteristics Voice Loudness: Normal Voice Pitch: Yes: Normal Voice Phonatory-based Quality: Yes: Normal Speech Pattern: Normal Speech Clarity: < 100% Nasal Resonance: Normal Articulation: Yes: Precise Rate of Speech: Intact - Swallow Evaluation/Bedside Assessment Current Nutritional Intake: NPO, G Tube Oral Secretions: Yes: WFL Facial Symmetry at Rest: Symmetrical Lingual Movement: Symmetric Lingual Speed of Movement: Normal Lingual Movement Characteristics: Normal Laryngeal Movement: Able to Palpate Recommendations - Speech Evaluation, Impression/Plan Impression: Accepted tip of spoon of applesauce and 1 tiny sip of water, with brisk swallow. Continuously refused additional trials. Good vocal quality. No cough. Failure to thrive. - Dysphagia Impressions/Plan *Silent aspiration: cannot be R/O at bedside Recommendations: Other (Pleasure feeds of puree and nectar, if pt desires and accepts.) - Recommendations Diet Consistency: Other (GT feedings.)
[2017-05-27] MEDS: DONEPEZIL HCL 10 MG TABLET (FP) PEG SCH (16:45)
[2017-05-27] MEDS: DIGOXIN 0.125 MG TABLET (FP) PEG SCH (16:46)
[2017-05-27] MEDS: CARVEDILOL 3.125 MG TABLET (FP) PEG SCH ×2 (16:46→21:32)
[2017-05-27] MEDS: MULTIVIT-MINERALS 236 ML ML PEG SCH (16:46)
[2017-05-27] MEDS: clonazePAM 0.5 MG TABLET PEG SCH ×2 (16:46→21:32)
[2017-05-27] MEDS: COLLAGENASE CLOSTRIDIUM HIST. 30 GRAMS TUBE TP SCH (16:46)
[2017-05-27] MEDS: ASPIRIN 81 MG CHEWABLE TABLETS PEG SCH (16:46)
[2017-05-27] MEDS: ASCORBIC ACID 500 MG/5 ML UNIT DOSE CUP PEG SCH (16:47)
[2017-05-27] MEDS ORDERED: PT OWN MED DRAWER 7, Y5N ONE (18:39)
[2017-05-27] MEDS: DOXAZOSIN MESYLATE 1 MG TABLET PEG SCH (18:41)
[2017-05-27] MEDS: WARFARIN NA 3 MG TABLET PO SCH (18:47)
[2017-05-27] MEDS ORDERED: INSULIN (NOVOLOG) ASPART 100 UNITS/ML 10ML VIAL ONE (18:54)
[2017-05-28] MEDS: DEXTROSE 5%-0.45% SALINE 1,000 ML IV SCH ×2 (06:12→10:31)
[2017-05-28 06:13] VITALS: TEMP 98.2
[2017-05-28] MEDS ORDERED: INSULIN (NOVOLOG) ASPART 100 UNITS/ML 10ML VIAL ONE (06:17)
[2017-05-28] MEDS: INSULIN SLIDING SCALE (NOVOLOG) 1 VIAL SQ SCH ×2 (06:18→11:58)
[2017-05-28 08:22] LABS: INR 1.4 (0.82-1.09); PROTHROMBIN TIME (PATIENT) 15.8 SEC (9.98-11.88)
[2017-05-28] MEDS ORDERED: PT OWN MED DRAWER 7, Y5N ONE (09:31)
[2017-05-28] MEDS: CARVEDILOL 3.125 MG TABLET (FP) PEG SCH (09:35)
[2017-05-28] MEDS: clonazePAM 0.5 MG TABLET PEG SCH (09:35)
[2017-05-28] MEDS: ASPIRIN 81 MG CHEWABLE TABLETS PEG SCH (09:35)
[2017-05-28] MEDS: DIGOXIN 0.125 MG TABLET (FP) PEG SCH (09:35)
[2017-05-28] MEDS: DONEPEZIL HCL 10 MG TABLET (FP) PEG SCH (09:35)
[2017-05-28] MEDS: MULTIVIT-MINERALS 236 ML ML PEG SCH (09:36)
[2017-05-28] MEDS: ENOXAPARIN NA (PORCINE) 60 MG/0.6 ML DISP.SYRIN SQ SCH (09:36)
[2017-05-28] MEDS: ASCORBIC ACID 500 MG/5 ML UNIT DOSE CUP PEG SCH (09:36)
[2017-05-28] MEDS: COLLAGENASE CLOSTRIDIUM HIST. 30 GRAMS TUBE TP SCH (10:41)
--- NOTE | 2017-05-28 11:50 | DS ---
Physical Examination Vital Signs: Vital Signs Temperature 98.2 F 05/28/17 06:00 Pulse Rate 103 H 05/28/17 09:35 Respiratory Rate 20 05/28/17 09:00 Blood Pressure 116/76 05/28/17 07:52 O2 Sat by Pulse Oximetry (%) 99 05/28/17 09:00 Constitutional: Yes: No Distress, Calm Cardiovascular: Yes: Regular Rate and Rhythm Respiratory: Yes: CTA Bilaterally Gastrointestinal: Yes: Normal Bowel Sounds, Soft. No: Distention, Tenderness Extremities: Yes: Amputation (B/L BKA) Edema: No Labs: CBC, BMP 05/25/17 07:30 05/25/17 07:30 Discharge Summary Reason For Visit: DISLODGED GASTROSTOMY TUBE Current Active Problems Dislodged gastrostomy tube (Acute) Hx of BKA (Acute) Hospital Course: Admitted for dislodged GT Sent from [facility] Seen by GI and Vascular-- no further interventions with regards to BKA stump-- recommended santyl Pt had GT replaced twice as it came out the first time-- 18 surinamese second time Pt will be dc back to [facility] with mitten restraints as he is likely to remove the GT Swallow eval done-- recommends pleasure feeding if pt willing only -- purree Condition: Fair - Instructions Referrals: Remigio Del Toro MD [Primary Care Provider] - Disposition: [facility] - Home Medications Comprehensive Discharge Medication List: Ambulatory Orders Acetaminophen [Pain Relief] 650 mg PEG BID 02/24/17 Donepezil HCl [Aricept -] 10 mg PO DAILY tablet 03/21/17 Clonazepam [Klonopin -] 0.5 mg PEG Q12H [facility] 2 04/07/17 FENTANYL 12mcg PATCH [DURAGESIC 12mcg PATCH -] 1 patch TD Q72H #20 patch MDD 1 05/16/17 Ascorbic Acid [Vitamin C Oral Solution -] 500 mg GT DAILY 05/21/17 Aspirin [ASA -] 81 mg PEG DAILY 05/21/17 Carvedilol 3.125 mg GT BID 05/21/17 Digoxin [Lanoxin -] 0.125 mg PEG DAILY 05/21/17 Doxazosin Mesylate [Cardura] 1 mg GT ONCE 05/21/17 Multivitamins [Tab-A-Vit -] 1 tab PEG DAILY 05/21/17 Warfarin Na [Coumadin -] 3 mg PEG DAILY@2100 05/21/17
[2017-05-28] MEDS: ACETAMINOPHEN 650 MG/20.3 ML ORAL SOLUTION (CUPS) GT PRN (11:53)
--- NOTE | 2017-05-28 12:46 | PN ---
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 Pt demonstrates a functional swallow but refuses most PO trials. Continue PEG feedings at [place].. Consider trial of swallowing tx, with sweet foods eg magic cup, ice cream, nectar juices.
[2017-05-28 14:38] VITALS: BP 112/55; PULSE 87
== END 2017-05-28 15:15 ==
LOC: JER 16:59 → JERBED 21:36 → J6S 05-22 01:24
PROVIDERS: ADMIT Internal Medicine; ATTEND Internal Medicine
PROC: 0DH63UZ Insertion of Feeding Device into Stomach, Percutaneous Approach (ICD-10-PCS; principal; 2017-05-21)
PROC: 0DH63UZ Insertion of Feeding Device into Stomach, Percutaneous Approach (ICD-10-PCS; 2017-05-21)
DX: Z43.1 Encounter for attention to gastrostomy (principal); I10 Essential (primary) hypertension; I25.2 Old myocardial infarction; I50.9 Heart failure, unspecified; I48.1 Persistent atrial fibrillation; E78.5 Hyperlipidemia, unspecified; E11.9 Type 2 diabetes mellitus without complications; Z89.512 Acquired absence of left leg below knee; Z89.511 Acquired absence of right leg below knee; G30.9 Alzheimer's disease, unspecified; F02.80 Dementia in other diseases classified elsewhere, unspecified severity, without behavioral disturbance, psychotic disturbance, mood disturbance, and anxiety; D64.9 Anemia, unspecified; F41.9 Anxiety disorder, unspecified; F31.9 Bipolar disorder, unspecified; I73.9 Peripheral vascular disease, unspecified; Z79.82 Long term (current) use of aspirin; Z79.01 Long term (current) use of anticoagulants; Z79.4 Long term (current) use of insulin
CPT/HCPCS: 36415; 43760; 74000-TC; 80048; 80053; 81003; 81015; 83036; 83735; 84100; 85025; 85610; 85730; 86850; 86900; 86901; 87086; 99284-25; G0378

== ENCOUNTER 2017-07-01 19:01 | Emergency (ER) | payer OTHER ==
[2017-07-01 21:12] VITALS: BMI 22.6
--- NOTE | 2017-07-01 22:13 | PDOC ---
History of Present Illness - General Chief Complaint: G Tube Problem Stated Complaint: FEEDING TUBE Time Seen by Provider: 07/01/17 19:18 History Source: Care Provider, Family, Snf Records, Old Records Exam Limitations: Dementia - History of Present Illness Initial Comments: 07/01/17 22:10 Pt is a 77M with H dementia. Pt is unable to give history. Per records, pt pulled G-tube as he has done numerous times in the past. Pt is herer to have new G-tube placed. On previous note, pt had 18 fr g-tube placed. Afebrile, NAD, hemodynamically stable. Past History - Past Medical History Allergies/Adverse Reactions: Allergies Allergy/AdvReac Type Severity Reaction Status Date / Time No Known Allergies Allergy Verified 07/01/17 21:10 Home Medications: Ambulatory Orders Acetaminophen [Pain Relief] 650 mg PEG BID 02/24/17 Donepezil HCl [Aricept -] 10 mg PO DAILY tablet 03/21/17 Clonazepam [Klonopin -] 0.5 mg PEG Q12H MDD 2 04/07/17 FENTANYL 12mcg PATCH [DURAGESIC 12mcg PATCH -] 1 patch TD Q72H #20 patch [facility]D 1 05/16/17 Ascorbic Acid [Vitamin C Oral Solution -] 500 mg GT DAILY 05/21/17 Aspirin [ASA -] 81 mg PEG DAILY 05/21/17 Carvedilol 3.125 mg GT BID 05/21/17 Digoxin [Lanoxin -] 0.125 mg PEG DAILY 05/21/17 Doxazosin Mesylate [Cardura] 1 mg GT ONCE 05/21/17 Multivitamins [Multivit ([facility] Formulary)] 1 tab PEG DAILY 05/21/17 Warfarin Na [Coumadin -] 3 mg PEG DAILY@2100 05/21/17 Memantine HCl [Namenda -] 10 mg PO BID #14 tablet 05/28/17 Anemia: Yes Asthma: No Cancer: No Cardiac Disorders: Yes (NSTEMI) CVA: Yes (DYSPHAGIA) COPD: No CHF: No Dementia: Yes (ALZHEIMERS.) Diabetes: Yes GI Disorders: No Disorders: No HTN: Yes Hypercholesterolemia: No Liver Disease: No Psychiatric Problems: Yes (ANXIETY, BIPOLAR) Seizures: No Thyroid Disease: No - Surgical History Abdominal Surgery: No Appendectomy: No Cardiac Surgery: No Cholecystectomy: No Lung Surgery: No Neurologic Surgery: No Orthopedic Surgery: No - Immunization History Immunization Up to Date: No - Suicide/Smoking/Psychosocial Hx Smoking History: Unknown if ever smoked Have you smoked in the past 12 months: No Information on smoking cessation initiated: No Hx Alcohol Use: No Drug/Substance Use Hx: No Substance Use Type: None Hx Substance Use Treatment: No Review of Systems - Review of Systems Able to Perform ROS?: No Is the patient limited Trinidadian proficient: Yes *Physical Exam - Vital Signs Last Vital Signs Temp Pulse Resp BP Pulse Ox 98.5 F 87 14 133/91 96 07/01/17 21:10 07/01/17 21:10 07/01/17 21:10 07/01/17 21:10 07/01/17 21:10 - Physical Exam General Appearance: Yes: Appropriately Dressed. No: Apparent Distress Neck: positive: Trachea midline, Normal Thyroid, Supple Respiratory/Chest: positive: Lungs Clear, Normal Breath Sounds Cardiovascular: positive: Regular Rhythm, Regular Rate, S1, S2 Gastrointestinal/Abdominal: positive: Normal Bowel Sounds, Other (arndt in place of a g-tube for now). negative: Tender, Organomegaly Medical Decision Making - Medical Decision Making 07/01/17 22:25 Pt is a 77M w/ Dementia sent to ED from [place] for replacement of G-tube, which he has again pulled out. Plan to place new G-tube. Pt signed out to night team. Daughter's number: Kayla [phone] *DC/Admit/Observation/Transfer Diagnosis at time of Disposition: Encounter for gastrojejunal tube placement - Referrals Referrals: Remigio Del Toro MD [Primary Care Provider] - - Patient Instructions - Post Discharge Activity
--- NOTE | 2017-07-02 01:04 | PDOC ---
History of Present Illness - General Chief Complaint: G Tube Problem Stated Complaint: FEEDING TUBE Time Seen by Provider: 07/01/17 19:18 Past History - Past Medical History Allergies/Adverse Reactions: Allergies Allergy/AdvReac Type Severity Reaction Status Date / Time No Known Allergies Allergy Verified 07/01/17 21:10 Home Medications: Ambulatory Orders Acetaminophen [Pain Relief] 650 mg PEG BID 02/24/17 Donepezil HCl [Aricept -] 10 mg PO DAILY tablet 03/21/17 Clonazepam [Klonopin -] 0.5 mg PEG Q12H MDD 2 04/07/17 FENTANYL 12mcg PATCH [DURAGESIC 12mcg PATCH -] 1 patch TD Q72H #20 patch MDD 1 05/16/17 Ascorbic Acid [Vitamin C Oral Solution -] 500 mg GT DAILY 05/21/17 Aspirin [ASA -] 81 mg PEG DAILY 05/21/17 Carvedilol 3.125 mg GT BID 05/21/17 Digoxin [Lanoxin -] 0.125 mg PEG DAILY 05/21/17 Doxazosin Mesylate [Cardura] 1 mg GT ONCE 05/21/17 Multivitamins [Multivit ([facility] Formulary)] 1 tab PEG DAILY 05/21/17 Warfarin Na [Coumadin -] 3 mg PEG DAILY@2100 05/21/17 Memantine HCl [Namenda -] 10 mg PO BID #14 tablet 05/28/17 Anemia: Yes Asthma: No Cancer: No Cardiac Disorders: Yes (NSTEMI) CVA: Yes (DYSPHAGIA) COPD: No CHF: No Dementia: Yes (ALZHEIMERS.) Diabetes: Yes GI Disorders: No Disorders: No HTN: Yes Hypercholesterolemia: No Liver Disease: No Psychiatric Problems: Yes (ANXIETY, BIPOLAR) Seizures: No Thyroid Disease: No - Surgical History Abdominal Surgery: No Appendectomy: No Cardiac Surgery: No Cholecystectomy: No Lung Surgery: No Neurologic Surgery: No Orthopedic Surgery: No - Immunization History Immunization Up to Date: No - Suicide/Smoking/Psychosocial Hx Smoking History: Unknown if ever smoked Have you smoked in the past 12 months: No Information on smoking cessation initiated: No Hx Alcohol Use: No Drug/Substance Use Hx: No Substance Use Type: None Hx Substance Use Treatment: No Review of Systems - Review of Systems Is the patient limited Yemeni proficient: Yes *Physical Exam - Vital Signs Last Vital Signs Temp Pulse Resp BP Pulse Ox 98.5 F 87 14 133/91 96 07/01/17 21:10 07/01/17 21:10 07/01/17 21:10 07/01/17 21:10 07/01/17 21:10 *DC/Admit/Observation/Transfer Diagnosis at time of Disposition: Encounter for gastrojejunal tube placement - Referrals Referrals: Remigio Del Toro MD [Primary Care Provider] - - Patient Instructions - Post Discharge Activity
--- NOTE | 2017-07-02 05:31 | PDOC ---
*Physical Exam - Vital Signs Last Vital Signs Temp Pulse Resp BP Pulse Ox 98.5 F 87 14 133/91 96 07/01/17 21:10 07/01/17 21:10 07/01/17 21:10 07/01/17 21:10 07/01/17 21:10 ED Treatment Course - RADIOLOGY Radiology Studies Ordered: Category Date Time Status ABDOMEN-KUB FLAT PLATE [RAD] Stat Radiology 07/02/17 04:22 Taken *DC/Admit/Observation/Transfer Diagnosis at time of Disposition: Encounter for gastrojejunal tube placement - Discharge Dispostion Disposition: HOME Condition at time of disposition: Stable Admit: No - Referrals Referrals: Remigio Del Toro MD [Primary Care Provider] - - Patient Instructions Printed Discharge Instructions: How to Care for Your PEG Tube - Post Discharge Activity
[2017-07-02 07:33] VITALS: BP 108/63; PULSE 72; TEMP 98
== END 2017-07-02 07:25 | disposition home or self-care (01) ==
LOC: JER 19:01
PROC: 0DH63UZ Insertion of Feeding Device into Stomach, Percutaneous Approach (ICD-10-PCS; principal; 2017-07-01)
DX: Z43.1 Encounter for attention to gastrostomy (principal)
CPT/HCPCS: 43760; 74000-TC; 99282-25

== ENCOUNTER 2017-07-23 02:39 | Inpatient (IN) | payer OTHER ==
[2017-07-23 02:57] VITALS: BMI 20.1
--- NOTE | 2017-07-23 03:24 | PDOC ---
History of Present Illness - General History Source: EMS, Alf Records Exam Limitations: Dementia - History of Present Illness Initial Comments: 07/23/17 03:35 The patient is a 77 year old male, from [facility], with a significant past medical history of dementia, sepsis, hypertension, coronary artery disease, left foot infection, gastrostomy tube, who presents to the emergency department via EMS for evaluation of sepsis. Patient is unable to provide information secondary to dementia. Allergies: NKA Primary Care Physician: Dr. Remigio Del Toro <Dane Mace - Last Filed: 07/23/17 05:11> - General History Source: EMS, Alf Records <Ace Mejia - Last Filed: 07/23/17 19:19> - General Chief Complaint: SIRS, Suspected/Possible Stated Complaint: R/O PNEUMONIA/SEPSIS Time Seen by Provider: 07/23/17 03:24 Past History <Dane Mace - Last Filed: 07/23/17 05:11> - Past Medical History Anemia: Yes Asthma: No Cancer: No Cardiac Disorders: Yes (NSTEMI) CVA: Yes (DYSPHAGIA) COPD: No CHF: No Dementia: Yes (ALZHEIMERS.) Diabetes: Yes GI Disorders: No Disorders: No HTN: Yes Hypercholesterolemia: No Liver Disease: No Psychiatric Problems: Yes (ANXIETY, BIPOLAR) Seizures: No Thyroid Disease: No - Surgical History Abdominal Surgery: No Appendectomy: No Cardiac Surgery: No Cholecystectomy: No Lung Surgery: No Neurologic Surgery: No Orthopedic Surgery: No - Immunization History Immunization Up to Date: No - Suicide/Smoking/Psychosocial Hx Smoking History: Unknown if ever smoked Have you smoked in the past 12 months: No Hx Alcohol Use: No Drug/Substance Use Hx: No Substance Use Type: None Hx Substance Use Treatment: No <Ace Mejia - Last Filed: 07/23/17 19:19> - Past Medical History Allergies/Adverse Reactions: Allergies Allergy/AdvReac Type Severity Reaction Status Date / Time No Known Allergies Allergy Verified 07/23/17 02:48 Home Medications: Ambulatory Orders Acetaminophen [Pain Relief] 650 mg PEG BID 02/24/17 Clonazepam [Klonopin -] 0.5 mg PEG Q12H MDD 2 04/07/17 Ascorbic Acid [Vitamin C Oral Solution -] 500 mg GT DAILY 05/21/17 Aspirin [ASA -] 81 mg PEG DAILY 05/21/17 Digoxin [Lanoxin -] 0.125 mg PEG DAILY 05/21/17 Clonazepam [Klonopin] 1 mg PEG Q12H 07/23/17 Donepezil HCl [Aricept -] 10 mg PEG DAILY 07/23/17 Memantine HCl [Namenda -] 10 mg PEG BID 07/23/17 Morphine Oral Concentrate [Roxanol 20 mg/ml Liquid -] 5 mg PO QID 07/23/17 Morphine Oral Concentrate [Roxanol 20 mg/ml Liquid -] 20 mg PEG Q4H 07/23/17 Multivit-Minerals/Ferrous Fum [Multivitamin Liquid] 5 ml GT DAILY 07/23/17 Tamsulosin HCl [Flomax] 0.4 mg PEG DAILY 07/23/17 Vit A/Vitamin D3/E/Aloe V/Zinc [Periguard Ointment] 100 gm TP DAILY 07/23/17 Review of Systems - Review of Systems Able to Perform ROS?: No (Secondary to dementia ) <Dane Mace - Last Filed: 07/23/17 05:11> *Physical Exam - Vital Signs Last Vital Signs Temp Pulse Resp BP Pulse Ox 106 H 14 104/51 97 07/23/17 03:22 07/23/17 02:52 07/23/17 02:52 07/23/17 03:22 - Physical Exam Comments: 07/23/17 03:37 GENERAL: Currently somnolent, no acute distress. HEENT: Normocephalic, atraumatic. PERRLA, EOMI. NECK: Supple. Full ROM. No JVD. Carotid pulses 2+ and symmetric, without bruits. No thyromegaly. No lymphadenopathy. CARDIOVASCULAR: +Tachycardia. No murmurs, rubs, or gallops. PULMONARY: +Diffuse Rhonchi, more prominent in the left upper and lower lung payne. No evidence of respiratory distress. No wheezing or rales. ABDOMINAL: Soft. Non-tender. Non-distended. No rebound or guarding. No organomegaly. Normoactive bowel sounds. MUSCULOSKELETAL No CVA tenderness. EXTREMITIES: +Bilateral BKA, stump appears to be mal odorous, non-healing, with serous discharge, fungating. SKIN: Warm and dry. Normal capillary refill. No rashes. No jaundice. <Dane Mace - Last Filed: 07/23/17 05:11> - Vital Signs Last Vital Signs Temp Pulse Resp BP Pulse Ox 113 H 14 104/51 99 07/23/17 02:52 07/23/17 02:52 07/23/17 02:52 07/23/17 02:52 <Ace Mejia - Last Filed: 07/23/17 19:19> Heart Score/ECG Review #1 07/23/17 05:11 Atrial fibrillation with rapid ventricular response at 114 bpm QT/QTc at 344/474 ms <Dane Mace - Last Filed: 07/23/17 05:11> ED Treatment Course - LABORATORY CBC & Chemistry Diagram: 07/23/17 03:30 07/23/17 03:30 <Dane Mace - Last Filed: 07/23/17 05:11> - LABORATORY CBC & Chemistry Diagram: 07/23/17 09:38 07/23/17 03:30 <Ace Mejia - Last Filed: 07/23/17 19:19> Medical Decision Making - Medical Decision Making 07/23/17 19:19 Dr. Mejia: The scribe's documentation has been prepared under my direction and personally reviewed by me in its entirery. I confirm that the note above accurately reflects all work, treatment, procedures, and medical decision making performed by me. <Ace Mejia - Last Filed: 07/23/17 19:19> *DC/Admit/Observation/Transfer - Attestations Scribe Attestion: 07/23/17 03:40 Documentation prepared by Dane Mace, acting as medical apparatus model maker for Ace Mejia MD. <Dane Mace - Last Filed: 07/23/17 05:11> - Discharge Dispostion Admit: Yes <Ace Mejia - Last Filed: 07/23/17 19:19> Diagnosis at time of Disposition: Severe sepsis, UTI (urinary tract infection), Infected wound, Hx of BKA - Discharge Dispostion Condition at time of disposition: Stable
[2017-07-23] MEDS ORDERED: SODIUM CHLORIDE 0.9% 1000 ML INFUS.BAG IV PRN (03:26)
[2017-07-23] MEDS ORDERED: VANCOMYCIN 1,000 MG in DEXTROSE 5%-WATER - 250 ML IVPB ONE (03:37)
[2017-07-23] MEDS ORDERED: MEROPENEM 1,000 MG in DEXTROSE 5%-WATER - 100 ML IVPB ONE (03:37)
[2017-07-23 03:46] LABS: HEMOGLOBIN 7.3 GM/dL (11.7-16.9); MCH 28.7 pg (25.7-33.7); MCHC 30.3 g/dl (32.0-35.9); MEAN CELL VOLUME 94.7 fl (80-96); MEAN PLT VOLUME 8.1 fl (7.5-11.1); MONO % 6.2 % (3.8-10.2); NEUT % 88.8 % (42.8-82.8); PLATELET COUNT 475 K/MM3 (134-434); RBC 2.54 M/mm3 (4.00-5.60); RDW 19.3 % (11.9-15.9); WHITE BLOOD COUNT 10.2 K/mm3 (4.0-10.0)
[2017-07-23 03:59] LABS: INR 3.37 (0.82-1.09); PROTHROMBIN TIME (PATIENT) 38.1 SEC (9.98-11.88)
[2017-07-23 04:02] LABS: ACTIVATED PTT 34.4 SECONDS (26.9-34.4)
[2017-07-23 04:11] LABS: VENOUS PC02 37.1 mmHg (38-52); VENOUS PH 7.52 (7.32-7.42)
[2017-07-23 04:12] LABS: URINE APPEARANCE CLOUDY; URINE BILIRUBIN NEGATIVE (NEGATIVE); URINE BLOOD NEGATIVE (NEGATIVE); URINE GLUCOSE (UA) 1+ (NEGATIVE); URINE KETONE NEGATIVE (NEGATIVE); URINE NITRITE NEGATIVE (NEGATIVE); URINE UROBILINOGEN 4.0 E.U/dl mg/dL (0.2-1.0); VENOUS PO2 58.7 mmHg (28-48)
[2017-07-23 04:14] LABS: URINE LEUK ESTERASE 2+ (NEGATIVE); URINE PROTEIN 2+ (NEGATIVE)
[2017-07-23 04:15] LABS: URINE COLOR DK YELLOW
[2017-07-23 04:20] LABS: EPI CELLS RARE /HPF (FEW); URINE BACTERIA MANY /hpf (NONE SEEN); URINE HYALINE CAST 18 /lpf; URINE MUCUS MANY
[2017-07-23 04:29] LABS: ALBUMIN 1.9 g/dl (3.4-5.0); ANION GAP 12 (8-16); BILIRUBIN,TOTAL 0.6 mg/dL (0.2-1.0); BLOOD UREA NITROGEN 30 mg/dL (7-18); CALCIUM 8.4 mg/dL (8.5-10.1); CHLORIDE 106 mmol/L (98-107); CO2 28 mmol/L (21-32); CREATININE 0.6 mg/dL (0.7-1.3); GLUCOSE,RANDOM 175 mg/dL (74-106); POTASSIUM 4.1 mmol/L (3.5-5.1); SGOT/AST 29 U/L (15-37); SGPT/ALT 47 U/L (12-78); SODIUM 146 mmol/L (136-145); TOT PROT 6.4 g/dl (6.4-8.2)
[2017-07-23 04:32] LABS: ALK PHOS 116 U/L (45-117)
[2017-07-23] MEDS ORDERED: SODIUM CHLORIDE 1,000 ML IV STA (04:57)
[2017-07-23] MEDS ORDERED: VANCOMYCIN 1 GRAM (PRE-DOCKED) 1,000 MG/250 ML BAG IVPB ONE (04:57)
[2017-07-23] MEDS ORDERED: MEROPENEM 1 GM PUSH 1 GM/20 ML DISP.SYRIN IVPUSH ONE (05:15)
--- NOTE | 2017-07-23 05:32 | HP ---
Admitting History and Physical - Primary Care Physician PCP: Remigio Del Toro - Admission Chief Complaint: Fever, r/o Sepsis History of Present Illness: This is a patient from [facility] with a PMHx of: Dementia, HTN, DM, CAD, Left Foot Infections (s/p B/L BKA). Who presents to the Ed with Fever 100.1 sent in r/o Sepsis. Due to patient's hx of Dementia unable to obtain HPI. Patient's T Max 101.0. Foul smelling serous sanguineous drainage noted to L- stump, yellowish serous drainage noted to right stump. He was started on fluid resuscitation, ABx- Vancomycin, Meropenem, Chest Xray image suspicious for Pneumonia in RML. Initial Lactic Acid 2.4- repeat pending. Admitted for Sepsis secondary to leg wounds, Pneumonia. 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, Dementia Cardiovascular: Yes: AFIB, CHF, HTN, Hyperlipdemia Heme/Onc: Yes: Anemia Psych: Yes: Bipolar, Other Endocrine: Yes: Diabetes Mellitus - Past Surgical History Past Surgical History: Yes: None Additional Past Surgical History: Bilateral BKA - Advance Directives Advance Directives: Yes: DNR (DNI) - Smoking History Smoking history: Unknown if ever smoked Have you smoked in the past 12 months: No - Alcohol/Substance Use Hx Alcohol Use: No History of Substance Use: reports: None - Social History Usual Living Arrangement: Yes: Correction ADL: Family Assistance History of Recent Travel: No Home Medications - Allergies Allergies/Adverse Reactions: Allergies Allergy/AdvReac Type Severity Reaction Status Date / Time No Known Allergies Allergy Verified 07/23/17 02:48 - Home Medications Home Medications: Ambulatory Orders Acetaminophen [Pain Relief] 650 mg PEG BID 02/24/17 Clonazepam [Klonopin -] 0.5 mg PEG Q12H MDD 2 04/07/17 Ascorbic Acid [Vitamin C Oral Solution -] 500 mg GT DAILY 05/21/17 Aspirin [ASA -] 81 mg PEG DAILY 05/21/17 Carvedilol 3.125 mg GT BID 05/21/17 Digoxin [Lanoxin -] 0.125 mg PEG DAILY 05/21/17 Clonazepam [Klonopin] 1 mg PEG DAILY 07/23/17 Donepezil HCl [Aricept -] 10 mg PEG DAILY 07/23/17 Memantine HCl [Namenda -] 10 mg PEG BID 07/23/17 Morphine Oral Concentrate [Roxanol 20 mg/ml Liquid -] 20 mg PEG Q4H 07/23/17 Tamsulosin HCl [Flomax] 0.4 mg PEG DAILY 07/23/17 Vit A/Vitamin D3/E/Aloe V/Zinc [Periguard Ointment] 100 gm TP DAILY 07/23/17 Family Disease History - Family Disease History Family History: Unable to Obtain Review of Systems Unable to obtain ROS, reason: Dementia Physical Examination Vital Signs: Vital Signs Temperature 101 F H 07/23/17 03:30 Pulse Rate 106 H 07/23/17 03:22 Respiratory Rate 14 07/23/17 02:52 Blood Pressure 104/51 07/23/17 02:52 O2 Sat by Pulse Oximetry (%) 97 07/23/17 03:22 Constitutional: Yes: Thin Eyes: Yes: Conjunctiva Clear, PERRL HENT: Yes: WNL, Atraumatic, Normocephalic, Other (poor dentition) Neck: Yes: WNL, Supple, Trachea Midline Cardiovascular: Yes: Pulse Irregular, S1, S2 Respiratory: Yes: On Nasal O2, Rhonchi, Wheezes Gastrointestinal: Yes: Normal Bowel Sounds, Soft, Other (PEG) ...Rectal Exam: Yes: WNL Breast(s): Yes: WNL Musculoskeletal: Yes: WNL Edema: No Integumentary: Yes: Jaundice Wound/Incision: Yes: Draining (foul smelling serous sang) Labs: CBC, BMP 07/23/17 03:30 07/23/17 03:30 Problem List - Problems (1) Sepsis Code(s): A41.9 - SEPSIS, UNSPECIFIED ORGANISM (2) Infected wound Code(s): T14.8XXA - OTHER INJURY OF UNSPECIFIED BODY REGION, INITIAL ENCOUNTER; L08.9 - LOCAL INFECTION OF THE SKIN AND SUBCUTANEOUS TISSUE, UNSP (3) Normocytic anemia Code(s): D64.9 - ANEMIA, UNSPECIFIED (4) Atrial fibrillation Code(s): I48.91 - UNSPECIFIED ATRIAL FIBRILLATION Qualifiers: Atrial fibrillation type: persistent Qualified Code(s): I48.1 - Persistent atrial fibrillation (5) ACS (acute coronary syndrome) Code(s): I24.9 - ACUTE ISCHEMIC HEART DISEASE, UNSPECIFIED (6) CAD (coronary artery disease) Code(s): I25.10 - ATHSCL HEART DISEASE OF [place] CORONARY ARTERY W/O ANG PCTRS (7) CHF (congestive heart failure) Code(s): I50.9 - HEART FAILURE, UNSPECIFIED Qualifiers: Congestive heart failure type: systolic Congestive heart failure chronicity : acute Qualified Code(s): I50.21 - Acute systolic (congestive) heart failure (8) Dementia Code(s): F03.90 - UNSPECIFIED DEMENTIA WITHOUT BEHAVIORAL DISTURBANCE Qualifiers: Dementia type: Alzheimer's disease Dementia behavioral disturbance: without behavioral disturbance (9) Hyperlipidemia Code(s): E78.5 - HYPERLIPIDEMIA, UNSPECIFIED (10) Diabetes Code(s): E11.9 - TYPE 2 DIABETES MELLITUS WITHOUT COMPLICATIONS 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 Admitted for Sepsis secondary to B/L stump wounds, Pneumonia. Plan 1. Sepsis- Blood Cultures-pending, Wound Cultures- pending, +Leukocytosis, + Lactic Acidemia, Chest xray- image infiltrates, SIRS Criteria MET IV, qSOFA 1. Continue IVF, Vancomycin, Meropenem, Appreciate ID Consult, Appreciate Vascular Consult. Repeat CBC, BMP. Monitor Vitals. 2. HCAP- See Above, CURB65 Score 3, duonebs, O2 3. Afib with RVR- EKG reviewed, rate now 90's, continue Digoxin, obtain Dig level- and continue to monitor 4. Anemia- hgb 7.3, on 05/2017 10.3. Likely secondary from stump wounds. Will type n cross for 2 units. Stool Occult- pending. Hold ACs 5. Diabetes Mellitus- BGMs, ISS 6. HTN- Monitor BP, Hold Carvedilol secondary to hypotension. Continue IVF 7. Dementia- Continue home meds 8. FEN- NS@60cc/hr, replete lytes prn, NPO- GT Code Status: DNR/DNI Dispo: Requires Inpatient Care Visit type - Emergency Visit Emergency Visit: Yes ED Registration Date: 07/23/17 Care time: The patient presented to the Emergency Department on the above date and was hospitalized for further evaluation of their emergent condition. - New Patient This patient is new to me today: Yes Date on this admission: 07/23/17 - Critical Care Critical Care patient: No
[2017-07-23] MEDS ORDERED: MORPHINE ORAL CONCENTRATE 20 MG/ML - 30ML BOTTLE PO PRN (08:18)
--- NOTE | 2017-07-23 08:21 | PN ---
Progress Note (short form) - Note Progress Note: Vital Signs Temp 99 F 07/23/17 07:07 Pulse 78 07/23/17 07:02 Resp 18 07/23/17 07:02 BP 101/69 07/23/17 07:02 Pulse Ox 98 07/23/17 07:02 Intake & Output 07/22/17 07/22/17 07/23/17 11:59 23:59 11:59 Weight 140 lb 9.6 oz Other: Voiding Method Indwelling Catheter Height 5 ft 10 in Body Mass Index (BMI) 20.1 Active Medications Albuterol/Ipratropium (Duoneb -) 1 amp NEB RTID [facility] Aspirin (Asa -) 81 mg PEG DAILY [facility] Carvedilol (Coreg -) 3.125 mg GT BID [facility] Clonazepam (Klonopin -) 0.5 mg PEG Q12H [facility] Digoxin (Lanoxin -) 0.125 mg PEG DAILY [facility] Sodium Chloride (Normal Saline -) 1,000 mls @ 60 mls/hr IV ASDIR [facility] Vancomycin HCl 1,000 mg/ (Dextrose) 250 mls @ 200 mls/hr IVPB Q12H [facility] Meropenem (Merrem (Restricted To Id) -) 500 mg IVPB Q8H-IV [facility] Morphine Sulfate (Roxanol 20 Mg/Ml Liquid -) 20 mg PO Q4H PRN PRN Reason: BACK PAIN Non-Formulary Medication (Acetaminophen [Pain Relief]) 650 mg PEG BID [facility] Non-Formulary Medication (Ascorbic Acid [Vitamin C Oral Solution -]) 500 mg GT DAILY [facility] Non-Formulary Medication (Vit A/Vitamin D3/E/Aloe V/Zinc [Periguard Ointment]) 100 gm TP DAILY [facility] Sodium Chloride (Normal Saline -) 1,000 ml IV Q20M PRN PRN Reason: MAP<65mm Hg OR SBP <90 Last Admin: 07/23/17 04:54 Dose: 1,000 ml Tamsulosin HCl (Flomax -) 0.4 mg PO DAILY [facility] CBC, BMP 07/23/17 03:30 07/23/17 03:30
--- NOTE | 2017-07-23 08:48 | HOSP ---
Physical Examination Vital Signs: Vital Signs Temperature 99 F 07/23/17 07:07 Pulse Rate 78 07/23/17 07:02 Respiratory Rate 18 07/23/17 07:02 Blood Pressure 101/69 07/23/17 07:02 O2 Sat by Pulse Oximetry (%) 98 07/23/17 07:02 Labs: CBC, BMP 07/23/17 03:30 07/23/17 03:30 Hospitalist Encounter Assessment: Discussed with HCP, daughter Shannan, over the phone. Pt was placed in hospice at [facility] but was sent to [facility]. At this time she would like pt to be treated and continue medical interventions as needed. She does not want Tube feeds held. Clarified code status, pt remains DNR/DNI
--- NOTE | 2017-07-23 09:14 | PN ---
Progress Note (short form) - Note Progress Note: pt known to me admitted by hospitalist service pt seen/ chart reviewed weak/ lethargic discussed with RN. pt is DNR/DI continue present care will follow
--- NOTE | 2017-07-23 09:35 | PN ---
Progress Note (short form) - Note Progress Note: ID consult dictated hospitalist note reviewed per family although he was hospice at [place], they would like to continue medical interventions as needed sepsis infected left BKA site- stump is purulent, necrotic and foulsmelling cannot rule out pneumonia cannot r/o UTI history of prior MRSA and ESBL organisms contact isolation continue vancomycin and meropenem surgical consult for stump debridement f/u cultures overall prognosis poor
--- NOTE | 2017-07-23 09:37 | EKG ---
Test Reason : Blood Pressure : / mmHG Vent. Rate : 114 BPM Atrial Rate : 144 BPM P-R Int : 000 ms QRS Dur : 102 ms QT Int : 344 ms P-R-T Axes : 000 065 -84 degrees QTc Int : 474 ms ATRIAL FIBRILLATION WITH RAPID VENTRICULAR RESPONSE LOW VOLTAGE QRS ABNORMAL ECG WHEN COMPARED WITH ECG OF 08-MAY-2017 00:40, NO SIGNIFICANT CHANGE WAS FOUND Confirmed by MAGDI REYES, SUNNY ([id number]) on 07/23/2017 9:37:18 AM Referred By: Confirmed By:SUNNY FAIRBANKS MD
[2017-07-23 09:44] LABS: BASO % 0.1 % (0-2.0); LYMPH % 12.3 % (8-40); MCH 28.5 pg (25.7-33.7); MCHC 30.3 g/dl (32.0-35.9); MEAN CELL VOLUME 94.2 fl (80-96); MEAN PLT VOLUME 7.3 fl (7.5-11.1); MONO % 8.6 % (3.8-10.2); PLATELET COUNT 396 K/MM3 (134-434); RBC 2.44 M/mm3 (4.00-5.60); RDW 19.3 % (11.9-15.9); WHITE BLOOD COUNT 9.5 K/mm3 (4.0-10.0)
--- NOTE | 2017-07-23 09:49 | PN ---
Problem List - Problems (1) Sepsis Code(s): A41.9 - SEPSIS, UNSPECIFIED ORGANISM (2) Infected wound Code(s): T14.8XXA - OTHER INJURY OF UNSPECIFIED BODY REGION, INITIAL ENCOUNTER; L08.9 - LOCAL INFECTION OF THE SKIN AND SUBCUTANEOUS TISSUE, UNSP (3) Pneumonia Code(s): J18.9 - PNEUMONIA, UNSPECIFIED ORGANISM (4) UTI (urinary tract infection) Code(s): N39.0 - URINARY TRACT INFECTION, SITE NOT SPECIFIED Qualifiers:
--- NOTE | 2017-07-23 11:26 | CONS ---
INFECTIOUS DISEASE CONSULTATION DATE OF CONSULTATION: 07/23/2017 REQUESTING PHYSICIAN: Remigio Del Toro MD HISTORY OF PRESENT ILLNESS: This is a 77-year-old man with a past medical history of bilateral BKA, diabetes, dementia, G tube, who [facility]. He developed fever and was sent to the emergency room. Patient is unable to give any history. He had fever as high as 101 in the emergency room. He was noted to have foul-smelling drainage from the left stump. He was given fluids, had cultures drawn, and was given IV antibiotics. The family was contacted. They wished to continue medical interventions although he is DNR/DNI. I am asked to see him for further evaluation. Currently, he is responsive to voice. He cannot follow any commands. He is resting comfortably. PAST MEDICAL HISTORY: Notable for dementia, atrial fibrillation, CHF, hypertension, hyperlipidemia, anemia. He has history of bipolar disorder and diabetes. SURGICAL HISTORY: Notable for bilateral BKA as well as G-tube placement. ALLERGIES: He has no known drug allergies. MEDICATIONS: Include tamsulosin, morphine concentrate, Namenda, Aricept, Lanoxin, Klonopin, Coreg, aspirin, vitamin C. FAMILY HISTORY: Not available. SOCIAL HISTORY: [facility] the [facility]. PHYSICAL EXAMINATION: General: He is awake and alert. Vital Signs: His temperature is 99. T-max was 101. Pulse is 78, blood pressure 101/69, respiratory rate is 18, pulse of 78. He is saturating 98% on 3 L nasal cannula. HEENT: He is normocephalic. His eyes are anicteric. He has poor dentition. Neck: Supple. Lungs: Bilateral rhonchi. Heart: Regular rate and rhythm. Abdomen: Soft, nontender. Extremities: He has bilateral BKAs. The right one has no drainage. The left one is erythematous. He has purulent, foul-smelling drainage and with necrotic areas. Skin: He has no sacral ulcers. LABORATORY DATA: Labs are notable for a white count of 10.2. Hemoglobin is 7.3. Platelets are 475. INR is 3. His BUN is 30 and creatinine 0.6. LFTs are normal. Lactic acid is 2.4. Urinalysis has 2+ leukocyte esterase with 397 white cells. Cultures are pending. Chest x-ray reveals increased congestion with a question of a retrocardiac infiltrate. In summary, this is a 77-year-old man [facility] from the [facility] with sepsis, infected left below-knee amputation site, cannot rule out pneumonia, cannot rule out urinary tract infection. History of prior methicillin-resistant Staphylococcus aureus and extended spectrum beta-lactamase organisms. Would maintain contact isolation, continue vancomycin and meropenem. Surgical consult for stump debridement and follow up cultures. Overall prognosis is poor. Satinder [id number]
[2017-07-23] MEDS: SODIUM CHLORIDE 1,000 ML IV SCH ×2 (11:27→20:43)
[2017-07-23] MEDS ORDERED: ACETAMINOPHEN 650 MG/20.3 ML ORAL SOLUTION (CUPS) ONE (14:54)
[2017-07-23] MEDS: ACETAMINOPHEN 650 MG/20.3 ML ORAL SOLUTION (CUPS) PEG SCH ×2 (14:55→21:16)
--- NOTE | 2017-07-23 15:30 | PN ---
Progress Note (short form) - Note Progress Note: PULMONARY CONSULTATION DICTATED 07/23/17 IMP ACUTE HYPOXEMIC RESPIRATORY FAILURE SEPSIS PNEUMONIA INFECTED LEFT STUMP AFIB DEMENTIA ANEMIA SUPRA-THERAPEUTIC INR PLAN IV ANTIBIOTICS PER ID INHALED BRONCHODILATORS O2 CULTURES F/U CHEST X-RAYS MONITOR INR,CBC,LYTES DR BERGER Problem List - Problems (1) Anemia Code(s): D64.9 - ANEMIA, UNSPECIFIED (2) Hx of BKA Code(s): Z89.519 - ACQUIRED ABSENCE OF UNSPECIFIED LEG BELOW KNEE (3) Infected wound Code(s): T14.8XXA - OTHER INJURY OF UNSPECIFIED BODY REGION, INITIAL ENCOUNTER; L08.9 - LOCAL INFECTION OF THE SKIN AND SUBCUTANEOUS TISSUE, UNSP (4) Pneumonia Code(s): J18.9 - PNEUMONIA, UNSPECIFIED ORGANISM (5) Sepsis Code(s): A41.9 - SEPSIS, UNSPECIFIED ORGANISM (6) Atrial fibrillation Code(s): I48.91 - UNSPECIFIED ATRIAL FIBRILLATION Qualifiers: Atrial fibrillation type: persistent Qualified Code(s): I48.1 - Persistent atrial fibrillation (7) CAD (coronary artery disease) Code(s): I25.10 - ATHSCL HEART DISEASE OF [place] CORONARY ARTERY W/O ANG PCTRS (8) Dementia Code(s): F03.90 - UNSPECIFIED DEMENTIA WITHOUT BEHAVIORAL DISTURBANCE Qualifiers: Dementia type: Alzheimer's disease Dementia behavioral disturbance: without behavioral disturbance (9) Elevated troponin Code(s): R74.8 - ABNORMAL LEVELS OF OTHER SERUM ENZYMES (10) Diabetes Code(s): E11.9 - TYPE 2 DIABETES MELLITUS WITHOUT COMPLICATIONS 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
--- NOTE | 2017-07-23 16:28 | CONS ---
DATE OF CONSULTATION: 07/23/2017 REFERRING PHYSICIAN: Remigio Del Toro MD HISTORY: History is obtained from chart. Patient has dementia. The patient is a male with a past medical history of peripheral vascular disease, status post bilateral BKA, diabetes, dementia, history of G-tube, shelter resident under hospice care, transferred to [facility] secondary to fever. Patient in the emergency room was noted to have a temperature of 101. He was noted to have foul-smelling drainage from his left stump. He was given IV fluids and cultures obtained, started on broad-spectrum antibiotics. He has had a chest x-ray performed which revealed some increased congestion and possible pneumonia. He was also noted to be congested, with hypoxemia. No further history is available at this time. PAST MEDICAL HISTORY: Again includes dementia, atrial fibrillation, CHF, hypertension, hyperlipidemia, anemia, history of diabetes, bipolar disorder. PAST SURGICAL HISTORY: Bilateral BKA as well as GT placement. MEDICATIONS PRIOR TO ADMISSION: Include tamsulosin, morphine, Namenda, Aricept, Lanoxin, Klonopin, Coreg, aspirin, and vitamin C. REVIEW OF SYSTEMS: Unable to obtain. CURRENT MEDICATIONS: Include Flomax, Tylenol, meropenem, vancomycin, Klonopin, DuoNeb, cored, Lanoxin, normal saline, Roxanol, vitamin C. PHYSICAL EXAMINATION: General: The patient is an elderly male, chronically ill appearing, awake, alert, nonverbal. Mildly dyspneic. Vital Signs: Blood pressure is 97/84. Respiratory rate is 20. Temperature is 97.2. O2 saturation is 98% on 3 L. HEENT: His head is normocephalic, atraumatic. Neck: Supple. Heart: Irregular with normal S1, S2. Chest: Bilateral rhonchi throughout. Abdomen: Soft. Bowel sounds are positive. Extremities: Bilateral BKA, purulent foul-smelling drainage, necrotic areas on the left stump. LABORATORY: Venous blood gas with pH of 7.52, PCO2 of 37, PO2 of 58, bicarbonate of 29. WBC is 9.5, hemoglobin 7, hematocrit 23, platelet count of 396,000. INR is 3.37. Chemistries: BUN is 30, creatinine 0.6. Lactate is 2.4 initially, followup 1.4. Troponin is 0.14. Chest x-ray revealed cardiomegaly, mild congestion, infiltrative changes left retrocardiac area. IMPRESSION: 1. Chest congestion, acute hypoxemia. 2. Fever, likely pneumonia. 3. Systemic inflammatory response syndrome secondary to probably infected stump as well as possible pneumonia. 4. History of congestive heart failure. 5. Atrial fibrillation. 6. Dementia. 7. Anemia. PLAN: Broad-spectrum antibiotics, fluids, and cultures. Follow up chest x-ray, supplemental O2. MARTIN BERGER M.D. [id number]
[2017-07-23] MEDS ORDERED: MEROPENEM 500 MG VIAL (RESTRICTED TO ID) IVPB SCH (18:00)
[2017-07-23] MEDS ORDERED: VANCOMYCIN 1,000 MG in DEXTROSE 5%-WATER - 250 ML IVPB SCH (18:00)
[2017-07-23] MEDS: clonazePAM 0.5 MG TABLET PEG PRN (21:15)
[2017-07-23] MEDS: CARVEDILOL 3.125 MG TABLET (FP) GT SCH (21:17)
--- NOTE | 2017-07-24 08:18 | CONSULT ---
- Consultation REQUESTING PROVIDER: CONSULT REQUEST: We have been asked to surgically evaluate this patient for ( specify). PCP: Remigio Del Toro History Source: Medical Record, Transfer Record Limitations to Obtaining History: Dementia Advance Directives: DNR/DNI HPI: Called to daniella 77 yo male with PMHx noted below. Patient is very well know to [facility]. Patient sent in from [place] for further workup of his fever 100.1F. In ER, patient's temp was 101F. Patient had RLE bka 04/10/17 followed by LLE bka 04/24/17. [place] reports foul smell emenating from left bka with purulent drainage. While in ED he also had a CXR which identified congestive/infiltrative changes...suspicious for PNA. He was started on Vanco and Meropenem. According to notes in chart, even though patient is on hospice status at [place], they have expressed their wishes to continue medical interventions as needed. PMHx: Alzheimer's, Dementia, AFIB, CHF, HTN, Hyperlipdemia, Anemia, Bipolar, DM , CAD PSHx: RLE BKA 04/10/17, LLE BKA 04/24/17, PEG Feeding Tube Home Meds Acetaminophen 650 mg PEG BID Ascorbic Acid 500 mg GT DAILY Aspirin 81 mg PEG DAILY Carvedilol 3.125 mg GT BID Digoxin 0.125 mg PEG DAILY Clonazepam 1 mg PEG DAILY Donepezil HCl 10 mg PEG DAILY Memantine HCl 10 mg PEG BID Morphine Oral Concentrate 20 mg Tamsulosin HCl 0.4 mg PEG DAILY Vit A/Vitamin D3/E/Aloe V/Zinc 100 gm TP DAILY Allergies: NKDA ROS: All systems reviewed and considered negative except for what's contained in HPI. PE: GENERAL: nad. non-verbal EYES: PERRL, sclera anicteric, conjunctiva clear. LUNGS: COR: LE: Rt bka --> eashar to superior and inferior flaps. Wound edges . Base of wound with fibrinous exudate. No foul odor. No discharge/erythema. Lt bka --> Foul odor. + purulent drainage. Boggy. Erythematous Last Vital Signs Temp Pulse Resp BP Pulse Ox 97.5 F L 86 20 116/87 95 07/24/17 06:05 07/24/17 06:05 07/24/17 06:05 07/24/17 06:05 07/23/17 20:49 INR, PTT INR 3.37 07/23/17 03:30 Blood Type Blood Type AB NEGATIVE 07/23/17 03:30 Troponin 07/23/17 07/23/17 09:38 18:30 Troponin I 0.14 H D 0.11 H TREND 07/23/17 07/23/17 07/24/17 03:30 09:38 07:55 WBC 10.2 9.5 Pending Hgb 7.3 7.0 Pending Hct 24.0 23.0 Pending Problem List - Problems (1) Infected wound Assessment/Plan: Admitted with sepsis secondary to infected LEFT bka. Based upon physical findings of LLE, we recommend that patient undergo further surgical procedure to include washout, wound exploration with possible Left AKA depending upon intra-op findings. Tenatively, patient is booked for OR 07/25/17. Dr. Kothari to speak with patient's family and obtain consent if they agree to surgery. Tylenol for fever > 100.3F IV ABX per ID Medical optimization / clearance Cardiac pclearance GI / DVT ppx NPO after midnight IF family agrees to surgery 2 PRBC on-hold Above plan discussed with Dr. Kothari and agrees Code(s): T14.8XXA - OTHER INJURY OF UNSPECIFIED BODY REGION, INITIAL ENCOUNTER; L08.9 - LOCAL INFECTION OF THE SKIN AND SUBCUTANEOUS TISSUE, UNSP (2) Sepsis Code(s): A41.9 - SEPSIS, UNSPECIFIED ORGANISM (3) Supratherapeutic INR Code(s): R79.1 - ABNORMAL COAGULATION PROFILE Visit type - Case Type Case Type: ED Admission - Emergency Emergency Visit: Yes ED Registration Date: 07/23/17 Care time: The patient presented to the Emergency Department on the above date and was hospitalized for further evaluation of their emergent condition. - New patient This patient is new to me today: Yes Date on this admission: 07/24/17
[2017-07-24 08:39] LABS: BASO % 0.3 % (0-2.0); EOS % 0.5 % (0-4.5); HEMATOCRIT 30.7 % (35.4-49); HEMOGLOBIN 9.6 GM/dL (11.7-16.9); LYMPH % 14.2 % (8-40); MCH 28.3 pg (25.7-33.7); MCHC 31.2 g/dl (32.0-35.9); MEAN CELL VOLUME 90.8 fl (80-96); MEAN PLT VOLUME 8.1 fl (7.5-11.1); MONO % 8.4 % (3.8-10.2); NEUT % 76.6 % (42.8-82.8); PLATELET COUNT 382 K/MM3 (134-434); RBC 3.39 M/mm3 (4.00-5.60); RDW 17.5 % (11.9-15.9); WHITE BLOOD COUNT 9.3 K/mm3 (4.0-10.0)
[2017-07-24 08:45] LABS: INR 3.4 (0.82-1.09); PROTHROMBIN TIME (PATIENT) 38.4 SEC (9.98-11.88)
[2017-07-24 08:52] LABS: CHLORIDE 112 mmol/L (98-107); POTASSIUM 3.9 mmol/L (3.5-5.1); SODIUM 146 mmol/L (136-145)
[2017-07-24] MEDS: ALBUTEROL SO4 2.5/IPRATROPIUM 0.5 INH SOL 3 ML VIAL.NEB. NEB SCH ×3 (09:05→20:00)
--- NOTE | 2017-07-24 09:20 | PN ---
Progress Note (short form) - Note Progress Note: patient seen and examined today Chart reviewed Drowsy but arousable Looks weak Discussed with surgeon--- left AKA planned Patient was under hospice care [place]--- but family wants to get AKA done. Vital Signs Temp 97.5 F L 07/24/17 06:05 Pulse 86 07/24/17 06:05 Resp 20 07/24/17 06:05 BP 116/87 07/24/17 06:05 Pulse Ox 95 07/23/17 20:49 Intake & Output 07/23/17 07/23/17 07/24/17 11:59 23:59 11:59 Output Total 300 200 Balance -300 -200 Weight 140 lb 9.597 oz Output: Urine 300 200 [place] 300 200 Other: Voiding Method Indwelling Catheter Indwelling Catheter Height 5 ft 10 in Body Mass Index (BMI) 20.1 Weight Measurement Method Stated by Patient Active Medications Acetaminophen (Tylenol Oral Solution -) 650 mg PEG BID [facility] Last Admin: 07/23/17 21:16 Dose: 650 mg Albuterol/Ipratropium (Duoneb -) 1 amp NEB RTID [facility] Ascorbic Acid (Vitamin C Oral Solution -) 500 mg GT DAILY [facility] Aspirin (Asa -) 81 mg PEG DAILY [facility] Carvedilol (Coreg -) 3.125 mg GT BID [facility] Last Admin: 07/23/17 21:17 Dose: 3.125 mg Clonazepam (Klonopin -) 0.5 mg PEG Q12H PRN Last Admin: 07/23/17 21:15 Dose: 0.5 mg Digoxin (Lanoxin -) 0.125 mg PEG DAILY [facility] Sodium Chloride (Normal Saline -) 1,000 mls @ 60 mls/hr IV ASDIR [facility] Last Admin: 07/23/17 20:43 Dose: 60 mls/hr Vancomycin HCl 1,000 mg/ (Dextrose) 250 mls @ 200 mls/hr IVPB Q12H [facility] Meropenem (Merrem (Restricted To Id) -) 500 mg IVPB Q8H-IV [facility] Morphine Sulfate (Roxanol 20 Mg/Ml Liquid -) 20 mg PO Q4H PRN PRN Reason: BACK PAIN Non-Formulary Medication (Vit A/Vitamin D3/E/Aloe V/Zinc [Periguard Ointment]) 100 gm TP DAILY [facility] Sodium Chloride (Normal Saline -) 1,000 ml IV Q20M PRN PRN Reason: MAP<65mm Hg OR SBP <90 Last Admin: 07/23/17 04:54 Dose: 1,000 ml Tamsulosin HCl (Flomax -) 0.4 mg PO DAILY@0830 [facility] INR, PTT INR 3.40 (0.82-1.09) H 07/24/17 07:55 CBC, BMP 07/24/17 07:55 07/24/17 07:55 Microbiology 07/23/17 03:30 Blood Culture - Preliminary Blood - Peripheral Venous NO GROWTH OBTAINED AFTER 24 HOURS, INCUBATION TO CONTINUE FOR 4 DAYS. 07/23/17 03:30 Blood Culture - Preliminary Blood - Peripheral Venous NO GROWTH OBTAINED AFTER 24 HOURS, INCUBATION TO CONTINUE FOR 4 DAYS. physical exam Drowsy but arousable chronically ill appearance Week Neck supple Lungs-diminished at bases CVS-S1 and S2 regular Abdomen--soft Extremities--infected left stump Assessment and plan Sepsis Infected left stump continue antibiotics Follow-up labs Surgery planned overall prognosis poor hold Coumadin--supratherapeutic INR patient is DNR Problem List - Problems (1) Infected wound Code(s): T14.8XXA - OTHER INJURY OF UNSPECIFIED BODY REGION, INITIAL ENCOUNTER; L08.9 - LOCAL INFECTION OF THE SKIN AND SUBCUTANEOUS TISSUE, UNSP (2) Sepsis Code(s): A41.9 - SEPSIS, UNSPECIFIED ORGANISM (3) Atrial fibrillation Code(s): I48.91 - UNSPECIFIED ATRIAL FIBRILLATION Qualifiers: Atrial fibrillation type: persistent Qualified Code(s): I48.1 - Persistent atrial fibrillation (4) Gastrointestinal tube present Code(s): Z93.1 - GASTROSTOMY STATUS
[2017-07-24 09:33] LABS: ALBUMIN 1.9 g/dl (3.4-5.0); ALK PHOS 100 U/L (45-117); ANION GAP 8 (8-16); BILIRUBIN,TOTAL 0.6 mg/dL (0.2-1.0); BLOOD UREA NITROGEN 24 mg/dL (7-18); CALCIUM 7.7 mg/dL (8.5-10.1); CO2 26 mmol/L (21-32); CREATININE 0.5 mg/dL (0.7-1.3); GLUCOSE,RANDOM 155 mg/dL (74-106); SGOT/AST 17 U/L (15-37); SGPT/ALT 34 U/L (12-78); TOT PROT 6.1 g/dl (6.4-8.2)
[2017-07-24] MEDS ORDERED: PT OWN MED DRAWER 7, Y5N ONE (10:21)
[2017-07-24] MEDS: CARVEDILOL 3.125 MG TABLET (FP) GT SCH ×4 (10:22→21:49)
[2017-07-24] MEDS: TAMSULOSIN HCL 0.4 MG CAP.ER.24H (FP) PO SCH ×2 (10:22→10:28)
[2017-07-24] MEDS: ACETAMINOPHEN 650 MG/20.3 ML ORAL SOLUTION (CUPS) PEG SCH ×2 (10:22→21:48)
[2017-07-24] MEDS: DIGOXIN 0.125 MG TABLET (FP) PEG SCH ×2 (10:23→10:28)
[2017-07-24] MEDS: ASCORBIC ACID 500 MG/5 ML UNIT DOSE CUP GT SCH ×2 (10:23→10:28)
[2017-07-24] MEDS: ASPIRIN 81 MG CHEWABLE TABLETS PEG SCH ×2 (10:23→10:27)
[2017-07-24] MEDS: clonazePAM 0.5 MG TABLET PEG PRN (10:27)
--- NOTE | 2017-07-24 11:20 | PN ---
Progress Note (short form) - Note Progress Note: PULMONARY Pt awake but not answering questions. No further fevers. Last Vital Signs Temp Pulse Resp BP Pulse Ox 97.5 F L 66 20 116/87 95 07/24/17 06:05 07/24/17 10:23 07/24/17 06:05 07/24/17 06:05 07/23/17 20:49 Gen: mildly tachypneic at rest Heart: RRR Lung: scattered rhonchi Abd: soft, nontender Ext: R BKA purulent, L BKA CBC, BMP 07/24/17 07:55 07/24/17 07:55 Active Medications Acetaminophen (Tylenol Oral Solution -) 650 mg PEG BID [facility] Last Admin: 07/24/17 10:22 Dose: 650 mg Albuterol/Ipratropium (Duoneb -) 1 amp NEB RTID [facility] Ascorbic Acid (Vitamin C Oral Solution -) 500 mg GT DAILY [facility] Last Admin: 07/24/17 10:28 Dose: Not Given Aspirin (Asa -) 81 mg PEG DAILY [facility] Last Admin: 07/24/17 10:27 Dose: Not Given Carvedilol (Coreg -) 3.125 mg GT BID [facility] Last Admin: 07/24/17 10:27 Dose: Not Given Clonazepam (Klonopin -) 0.5 mg PEG Q12H PRN Last Admin: 07/24/17 10:27 Dose: 0.5 mg Collagenase (Santyl -) 1 applic TP DAILY [facility] Digoxin (Lanoxin -) 0.125 mg PEG DAILY [facility] Last Admin: 07/24/17 10:28 Dose: Not Given Sodium Chloride (Normal Saline -) 1,000 mls @ 60 mls/hr IV ASDIR [facility] Last Admin: 07/23/17 20:43 Dose: 60 mls/hr Vancomycin HCl 1,000 mg/ (Dextrose) 250 mls @ 200 mls/hr IVPB Q12H [facility] Meropenem (Merrem (Restricted To Id) -) 500 mg IVPB Q8H-IV [facility] Morphine Sulfate (Roxanol 20 Mg/Ml Liquid -) 20 mg PO Q4H PRN PRN Reason: BACK PAIN Non-Formulary Medication (Vit A/Vitamin D3/E/Aloe V/Zinc [Periguard Ointment]) 100 gm TP DAILY [facility] Sodium Chloride (Normal Saline -) 1,000 ml IV Q20M PRN PRN Reason: MAP<65mm Hg OR SBP <90 Last Admin: 07/23/17 04:54 Dose: 1,000 ml Tamsulosin HCl (Flomax -) 0.4 mg PO DAILY@0830 [facility] Last Admin: 07/24/17 10:28 Dose: Not Given A/P Stump Infection UTI r/o Pneumonia Sepsis Atrial Fibrillation Dementia - continue antibiotics - surgery considering debridement/R AKA - wound care - f/u cultures - inhaled bronchodilators - enteral feeds - aspiration precautions - holding anticoagulation
[2017-07-24] MEDS ORDERED: MEROPENEM 500 MG VIAL (RESTRICTED TO ID) IVPB SCH (13:15)
[2017-07-24] MEDS: COLLAGENASE CLOSTRIDIUM HIST. 30 GRAMS TUBE TP SCH (13:23)
[2017-07-24] MEDS: SODIUM CHLORIDE 1,000 ML IV SCH (14:24)
[2017-07-24] MEDS: MEROPENEM 500 MG PUSH 500 MG/10 ML DISP.SYRIN IVPUSH SCH ×2 (14:24→17:25)
--- NOTE | 2017-07-24 17:17 | PN ---
Progress Note (short form) - Note Progress Note: much more alert today Vital Signs Period Temp Pulse Resp BP Sys/Mcdaniel Pulse Ox Last 24 Hr 97.5 F-97.9 F 86-94 20 116-138/75-87 95 cor-rrr llungs decreased bs at bases abd soft,nt ext bilat BKA CBC, BMP 07/24/17 07:55 07/24/17 07:55 Microbiology 07/23/17 03:48 Wound Gram Stain - Final 07/23/17 03:48 Wound Wound Culture - Preliminary Lactose Fermenting Neg Bacilli Proteus Species Group D Strep Or Entero Coccus Staphylococcus Latex Coag Pos 07/23/17 03:48 Wound Gram Stain - Final 07/23/17 03:48 Wound Wound Culture - Preliminary 07/23/17 04:00 Urine - Urine [place] Urine Culture - Preliminary Lactose Fermenting Neg Bacilli 07/23/17 03:30 Blood - Peripheral Venous Blood Culture - Preliminary NO GROWTH OBTAINED AFTER 24 HOURS, INCUBATION TO CONTINUE FOR 4 DAYS. 07/23/17 03:30 Blood - Peripheral Venous Blood Culture - Preliminary NO GROWTH OBTAINED AFTER 24 HOURS, INCUBATION TO CONTINUE FOR 4 DAYS. a/p sepsis infected left BKA site- stump is purulent, necrotic and foulsmelling cannot rule out pneumonia cannot r/o UTI history of prior MRSA and ESBL organisms contact isolation continue vancomycin and meropenem surgical consult for stump debridement f/u cultures overall prognosis poor Problem List - Problems (1) Sepsis Code(s): A41.9 - SEPSIS, UNSPECIFIED ORGANISM (2) Infected wound Code(s): T14.8XXA - OTHER INJURY OF UNSPECIFIED BODY REGION, INITIAL ENCOUNTER; L08.9 - LOCAL INFECTION OF THE SKIN AND SUBCUTANEOUS TISSUE, UNSP (3) Pneumonia Code(s): J18.9 - PNEUMONIA, UNSPECIFIED ORGANISM (4) UTI (urinary tract infection) Code(s): N39.0 - URINARY TRACT INFECTION, SITE NOT SPECIFIED Qualifiers:
[2017-07-24] MEDS: PATIENT'S OWN MEDICATION (NON-FORMULARY) (Vit A/Vitamin D3/E/Aloe V/Zinc [Periguard Ointme TP SCH (17:48)
[2017-07-24] MEDS: VANCOMYCIN 1,000 MG in DEXTROSE 5%-WATER - 250 ML IVPB SCH (18:20)
[2017-07-25] MEDS: MEROPENEM 500 MG PUSH 500 MG/10 ML DISP.SYRIN IVPUSH SCH ×3 (01:47→18:58)
[2017-07-25] MEDS: VANCOMYCIN 1,000 MG in DEXTROSE 5%-WATER - 250 ML IVPB SCH ×2 (05:47→19:00)
[2017-07-25 08:04] LABS: INR 2.88 (0.82-1.09); PROTHROMBIN TIME (PATIENT) 32.5 SEC (9.98-11.88)
[2017-07-25 08:08] LABS: ALBUMIN 1.7 g/dl (3.4-5.0); ANION GAP 5 (8-16); BILIRUBIN,TOTAL 0.8 mg/dL (0.2-1.0); BLOOD UREA NITROGEN 18 mg/dL (7-18); CALCIUM 7.6 mg/dL (8.5-10.1); CHLORIDE 113 mmol/L (98-107); CO2 29 mmol/L (21-32); CREATININE 0.3 mg/dL (0.7-1.3); GLUCOSE,RANDOM 102 mg/dL (74-106); POTASSIUM 3.7 mmol/L (3.5-5.1); SGOT/AST 10 U/L (15-37); SGPT/ALT 25 U/L (12-78); SODIUM 147 mmol/L (136-145)
[2017-07-25 08:09] LABS: ALK PHOS 83 U/L (45-117); TOT PROT 5.8 g/dl (6.4-8.2)
[2017-07-25 08:30] LABS: BASO % 0.1 % (0-2.0); EOS % 0.8 % (0-4.5); HEMATOCRIT 30.3 % (35.4-49); HEMOGLOBIN 9.4 GM/dL (11.7-16.9); LYMPH % 13.4 % (8-40); MCH 28.2 pg (25.7-33.7); MCHC 30.9 g/dl (32.0-35.9); MEAN CELL VOLUME 91.1 fl (80-96); MEAN PLT VOLUME 7.9 fl (7.5-11.1); MONO % 9.6 % (3.8-10.2); NEUT % 76.1 % (42.8-82.8); PLATELET COUNT 389 K/MM3 (134-434); RBC 3.33 M/mm3 (4.00-5.60); RDW 18.2 % (11.9-15.9); WHITE BLOOD COUNT 9.1 K/mm3 (4.0-10.0)
[2017-07-25] MEDS: TAMSULOSIN HCL 0.4 MG CAP.ER.24H (FP) PO SCH ×2 (08:39→10:54)
[2017-07-25] MEDS: ALBUTEROL SO4 2.5/IPRATROPIUM 0.5 INH SOL 3 ML VIAL.NEB. NEB SCH ×3 (08:45→21:51)
[2017-07-25] MEDS ORDERED: PT OWN MED DRAWER 7, Y5N ONE ×2 (10:02→18:30)
--- NOTE | 2017-07-25 10:24 | PN ---
Progress Note (short form) - Note Progress Note: pt more alert/ awake no distress discussed with Dr. Kothari today- will do washing/ debrigment today Vital Signs Temp 96.8 F L 07/25/17 08:47 Pulse 104 H 07/25/17 08:47 Resp 20 07/25/17 08:47 BP 135/58 07/25/17 08:47 Pulse Ox 95 07/24/17 20:38 Intake & Output 07/24/17 07/24/17 07/25/17 11:59 23:59 11:59 Intake Total 500 0 0 Output Total 200 300 300 Balance 300 -300 -300 Intake: Oral 500 0 0 Output: Urine 200 300 300 [place] 200 300 300 Other: Voiding Method Toilet Indwelling Catheter Indwelling Catheter Bowel Movement No No Active Medications Acetaminophen (Tylenol Oral Solution -) 650 mg PEG BID [facility] Last Admin: 07/24/17 21:48 Dose: 650 mg Albuterol/Ipratropium (Duoneb -) 1 amp NEB RTID [facility] Last Admin: 07/24/17 20:00 Dose: 1 amp Ascorbic Acid (Vitamin C Oral Solution -) 500 mg GT DAILY [facility] Last Admin: 07/24/17 10:28 Dose: Not Given Aspirin (Asa -) 81 mg PEG DAILY [facility] Last Admin: 07/24/17 10:27 Dose: Not Given Carvedilol (Coreg -) 3.125 mg GT BID [facility] Last Admin: 07/24/17 21:49 Dose: 3.125 mg Clonazepam (Klonopin -) 0.5 mg PEG Q12H PRN Last Admin: 07/24/17 10:27 Dose: 0.5 mg Collagenase (Santyl -) 1 applic TP DAILY [facility] Last Admin: 07/24/17 13:23 Dose: 1 applic Digoxin (Lanoxin -) 0.125 mg PEG DAILY [facility] Last Admin: 07/24/17 10:28 Dose: Not Given Sodium Chloride (Normal Saline -) 1,000 mls @ 60 mls/hr IV ASDIR [facility] Last Admin: 07/24/17 14:24 Dose: 60 mls/hr Meropenem (Merrem (Restricted To Id) -) 500 mg in 10 mls @ 120 mls/hr IVPUSH Q8H-IV [facility] Last Admin: 07/25/17 01:47 Dose: 120 mls/hr Vancomycin HCl 1,000 mg/ (Dextrose) 250 mls @ 166.667 mls/hr IVPB BID@0600, 1800 [facility] PRN Reason: Protocol Last Admin: 07/25/17 05:47 Dose: 166.667 mls/hr Morphine Sulfate (Roxanol 20 Mg/Ml Liquid -) 20 mg PO Q4H PRN PRN Reason: BACK PAIN Sodium Chloride (Normal Saline -) 1,000 ml IV Q20M PRN PRN Reason: MAP<65mm Hg OR SBP <90 Last Admin: 07/23/17 04:54 Dose: 1,000 ml Tamsulosin HCl (Flomax -) 0.4 mg PO DAILY@0830 [facility] Last Admin: 07/25/17 08:39 Dose: Not Given CBC, BMP 07/25/17 06:30 07/25/17 06:30 Microbiology 07/23/17 03:30 Blood Culture - Preliminary Blood - Peripheral Venous NO GROWTH OBTAINED AFTER 48 HOURS, INCUBATION TO CONTINUE FOR 3 DAYS. 07/23/17 03:30 Blood Culture - Preliminary Blood - Peripheral Venous NO GROWTH OBTAINED AFTER 48 HOURS, INCUBATION TO CONTINUE FOR 3 DAYS. 07/23/17 03:48 Gram Stain - Final Wound Wound Culture - Preliminary Lactose Fermenting Neg Bacilli Proteus Species Group D Strep Or Entero Coccus Staphylococcus Latex Coag Pos 07/23/17 03:48 Gram Stain - Final Wound Wound Culture - Preliminary 07/23/17 04:00 Urine Culture - Preliminary Urine - Urine [place] Lactose Fermenting Neg Bacilli physical exam awake/ no distress Neck supple Lungs-diminished at bases CVS-S1 and S2 regular Abdomen--soft Extremities--infected left stump Assessment and plan Sepsis Infected left stump continue antibiotics Debrigment today overall prognosis poor hold Coumadin-- patient is DNR will follow Problem List - Problems (1) Infected wound Code(s): T14.8XXA - OTHER INJURY OF UNSPECIFIED BODY REGION, INITIAL ENCOUNTER; L08.9 - LOCAL INFECTION OF THE SKIN AND SUBCUTANEOUS TISSUE, UNSP (2) Sepsis Code(s): A41.9 - SEPSIS, UNSPECIFIED ORGANISM (3) Atrial fibrillation Code(s): I48.91 - UNSPECIFIED ATRIAL FIBRILLATION Qualifiers: Atrial fibrillation type: persistent Qualified Code(s): I48.1 - Persistent atrial fibrillation (4) Gastrointestinal tube present Code(s): Z93.1 - GASTROSTOMY STATUS
[2017-07-25] MEDS: SODIUM CHLORIDE 1,000 ML IV SCH ×2 (10:52→18:00)
[2017-07-25] MEDS: DIGOXIN 0.125 MG TABLET (FP) PEG SCH (10:54)
[2017-07-25] MEDS: CARVEDILOL 3.125 MG TABLET (FP) GT SCH ×2 (10:54→22:37)
[2017-07-25] MEDS: ASPIRIN 81 MG CHEWABLE TABLETS PEG SCH (10:54)
[2017-07-25] MEDS: ACETAMINOPHEN 650 MG/20.3 ML ORAL SOLUTION (CUPS) PEG SCH ×2 (10:55→22:38)
[2017-07-25] MEDS: ASCORBIC ACID 500 MG/5 ML UNIT DOSE CUP GT SCH (10:55)
[2017-07-25] MEDS: COLLAGENASE CLOSTRIDIUM HIST. 30 GRAMS TUBE TP SCH (10:55)
--- NOTE | 2017-07-25 14:00 | PN ---
Progress Note (short form) - Note Progress Note: awake, alert Vital Signs Period Temp Pulse Resp BP Sys/Mcdaniel Pulse Ox Last 24 Hr 96.8 F-98.4 F 78-104 18-20 108-135/56-75 95-95 cor-rrr lungs clear, decreased bs at bases abd soft,nt +GT ext bilateral BKA CBC, BMP 07/25/17 06:30 07/25/17 06:30 Microbiology 07/23/17 03:48 Wound Gram Stain - Final 07/23/17 03:48 Wound Wound Culture - Final 07/23/17 03:48 Wound Gram Stain - Final 07/23/17 03:48 Wound Wound Culture - Preliminary Lactose Fermenting Neg Bacilli Proteus Mirabilis Enterococcus Faecalis Mr S Aureus 07/23/17 04:00 Urine - Urine [place] Urine Culture - Final Escherichia Coli Esbl Ship/Rec/Doc Control 07/23/17 03:30 Blood - Peripheral Venous Blood Culture - Preliminary NO GROWTH OBTAINED AFTER 48 HOURS, INCUBATION TO CONTINUE FOR 3 DAYS. 07/23/17 03:30 Blood - Peripheral Venous Blood Culture - Preliminary NO GROWTH OBTAINED AFTER 48 HOURS, INCUBATION TO CONTINUE FOR 3 DAYS. Current Medications Acetaminophen (Tylenol Oral Solution -) 650 mg PEG BID [facility] Last Admin: 07/25/17 10:55 Dose: 650 mg Albuterol/Ipratropium (Duoneb -) 1 amp NEB RTID [facility] Last Admin: 07/25/17 08:45 Dose: Not Given Ascorbic Acid (Vitamin C Oral Solution -) 500 mg GT DAILY [facility] Last Admin: 07/25/17 10:55 Dose: 500 mg Aspirin (Asa -) 81 mg PEG DAILY [facility] Last Admin: 07/25/17 10:54 Dose: 81 mg Carvedilol (Coreg -) 3.125 mg GT BID [facility] Last Admin: 07/25/17 10:54 Dose: 3.125 mg Clonazepam (Klonopin -) 0.5 mg PEG Q12H PRN Last Admin: 07/24/17 10:27 Dose: 0.5 mg Collagenase (Santyl -) 1 applic TP DAILY [facility] Last Admin: 07/25/17 10:55 Dose: 1 applic Digoxin (Lanoxin -) 0.125 mg PEG DAILY [facility] Last Admin: 07/25/17 10:54 Dose: 0.125 mg Sodium Chloride (Normal Saline -) 1,000 mls @ 60 mls/hr IV ASDIR [facility] Last Admin: 07/25/17 10:52 Dose: 60 mls/hr Meropenem (Merrem (Restricted To Id) -) 500 mg in 10 mls @ 120 mls/hr IVPUSH Q8H-IV [facility] Last Admin: 07/25/17 10:56 Dose: 120 mls/hr Vancomycin HCl 1,000 mg/ (Dextrose) 250 mls @ 166.667 mls/hr IVPB BID@0600, 1800 [facility] PRN Reason: Protocol Last Admin: 07/25/17 05:47 Dose: 166.667 mls/hr Morphine Sulfate (Roxanol 20 Mg/Ml Liquid -) 20 mg PO Q4H PRN PRN Reason: BACK PAIN Sodium Chloride (Normal Saline -) 1,000 ml IV Q20M PRN PRN Reason: MAP<65mm Hg OR SBP <90 Last Admin: 07/23/17 04:54 Dose: 1,000 ml Tamsulosin HCl (Flomax -) 0.4 mg PO DAILY@0830 [facility] Last Admin: 07/25/17 10:54 Dose: 0.4 mg a/p sepsis infected left BKA site- stump is purulent, necrotic and foulsmelling cannot rule out pneumonia UTI history of prior MRSA and ESBL organisms contact isolation continue vancomycin, check trough surgical consult for stump debridement f/u cultures- ?switch to ertapenem when cultures are finalized overall prognosis poor Problem List - Problems (1) Sepsis Code(s): A41.9 - SEPSIS, UNSPECIFIED ORGANISM (2) Infected wound Code(s): T14.8XXA - OTHER INJURY OF UNSPECIFIED BODY REGION, INITIAL ENCOUNTER; L08.9 - LOCAL INFECTION OF THE SKIN AND SUBCUTANEOUS TISSUE, UNSP (3) Pneumonia Code(s): J18.9 - PNEUMONIA, UNSPECIFIED ORGANISM (4) UTI (urinary tract infection) Code(s): N39.0 - URINARY TRACT INFECTION, SITE NOT SPECIFIED Qualifiers:
--- NOTE | 2017-07-25 14:24 | PN ---
Progress Note (short form) - Note Progress Note: PULMONARY DNR/DNI VSS/AFEBRILE SPO2 95% ON 2L/M NO SIGNIFICANT CHANGE IN EXAM CHART REVIEWED A/P Stump Infection UTI ? Pneumonia Sepsis Atrial Fibrillation Dementia - continue antibiotics - surgery considering debridement/R AKA - wound care - f/u cultures - inhaled bronchodilators - enteral feeds - aspiration precautions - holding anticoagulation Devin LAROSE MD
[2017-07-25] MEDS ORDERED: PROPOFOL 20 ML ONE (15:33)
[2017-07-25] MEDS ORDERED: MIDAZOLAM HCL 2 MG/2 ML SINGLE DOSE VIAL ONE (15:50)
[2017-07-25] MEDS ORDERED: LIDOCAINE HCL 1%, 10 MG/ML (50 mL VIAL) IJ ONE (16:00)
--- NOTE | 2017-07-25 16:25 | OP ---
Operative Note - Note: Operative Date: 07/25/17 Operation: Washout left bka stump Post-Operative Diagnosis: Same as Pre-op Surgeon: Devan Kothari Anesthesia: Fractional Estimated Blood Loss (mls): 50 Operative Report Dictated: Yes
[2017-07-25] MEDS ORDERED: SODIUM CHLORIDE 0.9% 1000 ML INFUS.BAG IV PRN (16:46)
[2017-07-25] MEDS ORDERED: MORPHINE ORAL CONCENTRATE 20 MG/ML - 30ML BOTTLE PO PRN (16:46)
[2017-07-26] MEDS: MEROPENEM 500 MG PUSH 500 MG/10 ML DISP.SYRIN IVPUSH SCH ×3 (02:23→17:27)
[2017-07-26] MEDS: COLLAGENASE CLOSTRIDIUM HIST. 30 GRAMS TUBE TP SCH ×2 (02:30→09:16)
[2017-07-26] MEDS: VANCOMYCIN 1,000 MG in DEXTROSE 5%-WATER - 250 ML IVPB SCH ×2 (06:08→18:08)
[2017-07-26] MEDS: ALBUTEROL SO4 2.5/IPRATROPIUM 0.5 INH SOL 3 ML VIAL.NEB. NEB SCH ×3 (08:05→22:55)
[2017-07-26 08:48] LABS: INR 3.19 (0.82-1.09)
[2017-07-26 08:54] LABS: HEMATOCRIT 29.8 % (35.4-49); HEMOGLOBIN 9.2 GM/dL (11.7-16.9); MCH 28.5 pg (25.7-33.7); MEAN CELL VOLUME 92.1 fl (80-96); MEAN PLT VOLUME 7.9 fl (7.5-11.1); PLATELET COUNT 368 K/MM3 (134-434); RBC 3.24 M/mm3 (4.00-5.60); RDW 17.7 % (11.9-15.9)
[2017-07-26] MEDS ORDERED: PT OWN MED DRAWER 7, Y5N ONE ×3 (09:10→18:03)
[2017-07-26] MEDS: ACETAMINOPHEN 650 MG/20.3 ML ORAL SOLUTION (CUPS) PEG SCH ×2 (09:14→21:15)
[2017-07-26] MEDS: TAMSULOSIN HCL 0.4 MG CAP.ER.24H (FP) PO SCH (09:14)
[2017-07-26] MEDS: ASPIRIN 81 MG CHEWABLE TABLETS PEG SCH (09:15)
[2017-07-26] MEDS: DIGOXIN 0.125 MG TABLET (FP) PEG SCH (09:15)
[2017-07-26] MEDS: CARVEDILOL 3.125 MG TABLET (FP) GT SCH ×2 (09:15→21:15)
[2017-07-26] MEDS: ASCORBIC ACID 500 MG/5 ML UNIT DOSE CUP GT SCH (09:16)
--- NOTE | 2017-07-26 10:37 | OP ---
DATE OF OPERATION: 07/23/2017 PREOPERATIVE DIAGNOSIS: Left [id number] amputation stump infection. POSTOPERATIVE DIAGNOSIS: Left xfdhb-[id number] amputation stump infection. PROCEDURE: Washout, left below-knee amputation stump. SURGEON: Devan Newberry DO ANESTHESIA: Fractional. BLOOD LOSS: 50 mL INDICATION FOR PROCEDURE: The patient is a 77-year-old male who came in with a left BKA stump that was infected. He is hospice at [facility], but they sent him into the ER. Upon examining him, there was josué pus coming out of his left BKA stump, and it was decided that we would wash it out. Patient's daughter was consented for the procedure, understanding all risks, benefits, and alternatives. He was then taken to the operating room. DESCRIPTION OF PROCEDURE: Once in the operating room, he was laid on the operating table in supine manner, and the area of the left BKA stump was prepped and draped in a sterile surgical manner. We then injected 10 mL of lidocaine % over the BKA stump. We then went ahead and used Bovie electrocautery, and we were able to open the stump along the incision line. Once the stump was opened, josué pus was draining from it. We took cultures. We then went ahead and went along all the fascial planes, and using digital manipulation, we were able to break up all the loculations. We then used pulse lavage, and we were able to pulse lavage all 4 quadrants of the BKA stump. Once there was no more pus there, we were able to then use Bovie electrocautery to control hemostasis, and we were able to pack with 2-inch Iodoform packing. Once we packed, we then went ahead and placed a wet-to-dry dressing and Kerlix. Patient tolerated the procedure with no complication. Patient transferred to PACU in stable condition. DEVAN NEWBERRY DO [employer] REPA[employer]ER/[id number]
--- NOTE | 2017-07-26 14:15 | PN ---
Progress Note (short form) - Note Progress Note: PULMONARY s/p stump washout. No fevers at rest. Last Vital Signs Temp Pulse Resp BP Pulse Ox 97.9 F 78 18 115/54 95 07/26/17 08:00 07/26/17 09:15 07/26/17 08:00 07/26/17 08:00 07/26/17 09:00 Gen: less tachypneic at rest Heart: RRR Lung: scattered rhonchi Abd: soft, nontender Ext: bilateral BKA CBC, BMP 07/26/17 07:00 07/25/17 06:30 INR, PTT INR 3.19 (0.82-1.09) H 07/26/17 07:00 Active Medications Acetaminophen (Tylenol Oral Solution -) 650 mg PEG BID [facility] Last Admin: 07/26/17 09:14 Dose: 650 mg Albuterol/Ipratropium (Duoneb -) 1 amp NEB RTID [facility] Last Admin: 07/26/17 14:11 Dose: Not Given Ascorbic Acid (Vitamin C Oral Solution -) 500 mg GT DAILY [facility] Last Admin: 07/26/17 09:16 Dose: 500 mg Aspirin (Asa -) 81 mg PEG DAILY [facility] Last Admin: 07/26/17 09:15 Dose: 81 mg Carvedilol (Coreg -) 3.125 mg GT BID [facility] Last Admin: 07/26/17 09:15 Dose: 3.125 mg Clonazepam (Klonopin -) 0.5 mg PEG Q12H PRN Collagenase (Santyl -) 1 applic TP DAILY [facility] Last Admin: 07/26/17 09:16 Dose: 1 applic Digoxin (Lanoxin -) 0.125 mg PEG DAILY [facility] Last Admin: 07/26/17 09:15 Dose: 0.125 mg Meropenem (Merrem (Restricted To Id) -) 500 mg in 10 mls @ 120 mls/hr IVPUSH Q8H-IV [facility] Last Admin: 07/26/17 09:15 Dose: 120 mls/hr Sodium Chloride (Normal Saline -) 1,000 mls @ 60 mls/hr IV ASDIR [facility] Last Admin: 07/25/17 18:00 Dose: 60 mls/hr Vancomycin HCl 1,000 mg/ (Dextrose) 250 mls @ 166.667 mls/hr IVPB BID@0600, 1800 [facility] PRN Reason: Protocol Last Admin: 07/26/17 06:08 Dose: 166.667 mls/hr Morphine Sulfate (Roxanol 20 Mg/Ml Liquid -) 20 mg PO Q4H PRN PRN Reason: BACK PAIN Sodium Chloride (Normal Saline -) 1,000 ml IV Q20M PRN PRN Reason: MAP<65mm Hg OR SBP <90 Tamsulosin HCl (Flomax -) 0.4 mg PO DAILY@0830 [facility] Last Admin: 07/26/17 09:14 Dose: 0.4 mg A/P Stump Infection UTI r/o Pneumonia Sepsis Atrial Fibrillation Dementia - continue antibiotics - wound care - f/u cultures - inhaled bronchodilators - enteral feeds - aspiration precautions - holding anticoagulation
[2017-07-26] MEDS: clonazePAM 0.5 MG TABLET PEG PRN (20:29)
[2017-07-26] MEDS ORDERED: MORPHINE SULFATE 10 MG/5 ML CUP PO PRN (20:58)
[2017-07-26] MEDS ORDERED: morphine SULFATE 10 MG/5 ML UNIT-DOSE CUP PO PRN (20:59)
[2017-07-26] MEDS: SODIUM CHLORIDE 1,000 ML IV SCH (21:16)
[2017-07-27] MEDS ORDERED: PT OWN MED DRAWER 7, Y5N ONE ×3 (02:13→16:54)
[2017-07-27] MEDS: MEROPENEM 500 MG PUSH 500 MG/10 ML DISP.SYRIN IVPUSH SCH ×2 (02:16→09:18)
[2017-07-27] MEDS: VANCOMYCIN 1,000 MG in DEXTROSE 5%-WATER - 250 ML IVPB SCH ×2 (06:09→16:59)
--- NOTE | 2017-07-27 07:50 | PN ---
Progress Note (short form) - Note Progress Note: Late note entry Pt seen on 07/26/17 s/p washing comfortable awake. vitals - stable labs - noted. physical exam awake/ no distress Neck supple Lungs-diminished at bases CVS-S1 and S2 regular Abdomen--soft Extremities--infected left stump- dressing + Assessment and plan Sepsis Infected left stump- s/p washing continue antibiotics hold Coumadin-- patient is DNR overall condition remains poor. will follow Problem List - Problems (1) Infected wound Code(s): T14.8XXA - OTHER INJURY OF UNSPECIFIED BODY REGION, INITIAL ENCOUNTER; L08.9 - LOCAL INFECTION OF THE SKIN AND SUBCUTANEOUS TISSUE, UNSP (2) Sepsis Code(s): A41.9 - SEPSIS, UNSPECIFIED ORGANISM (3) Atrial fibrillation Code(s): I48.91 - UNSPECIFIED ATRIAL FIBRILLATION Qualifiers: Atrial fibrillation type: persistent Qualified Code(s): I48.1 - Persistent atrial fibrillation (4) Gastrointestinal tube present Code(s): Z93.1 - GASTROSTOMY STATUS
[2017-07-27] MEDS: ALBUTEROL SO4 2.5/IPRATROPIUM 0.5 INH SOL 3 ML VIAL.NEB. NEB SCH ×3 (08:18→20:35)
[2017-07-27] MEDS: ACETAMINOPHEN 650 MG/20.3 ML ORAL SOLUTION (CUPS) PEG SCH ×2 (09:17→21:28)
[2017-07-27] MEDS: TAMSULOSIN HCL 0.4 MG CAP.ER.24H (FP) PO SCH (09:17)
[2017-07-27] MEDS: DIGOXIN 0.125 MG TABLET (FP) PEG SCH (09:17)
[2017-07-27] MEDS: ASCORBIC ACID 500 MG/5 ML UNIT DOSE CUP GT SCH (09:18)
[2017-07-27] MEDS: CARVEDILOL 3.125 MG TABLET (FP) GT SCH ×2 (09:18→21:28)
[2017-07-27] MEDS: ASPIRIN 81 MG CHEWABLE TABLETS PEG SCH (09:18)
[2017-07-27] MEDS: COLLAGENASE CLOSTRIDIUM HIST. 30 GRAMS TUBE TP SCH (09:20)
[2017-07-27 09:40] LABS: ALBUMIN 1.6 g/dl (3.4-5.0); ANION GAP 7 (8-16); BLOOD UREA NITROGEN 17 mg/dL (7-18); CALCIUM 7.3 mg/dL (8.5-10.1); CHLORIDE 111 mmol/L (98-107); CO2 26 mmol/L (21-32); GLUCOSE,RANDOM 142 mg/dL (74-106); POTASSIUM 4.2 mmol/L (3.5-5.1); SODIUM 144 mmol/L (136-145)
[2017-07-27 09:44] LABS: ALK PHOS 102 U/L (45-117); BILIRUBIN,TOTAL 0.4 mg/dL (0.2-1.0); CREATININE 0.3 mg/dL (0.7-1.3); SGOT/AST 38 U/L (15-37); SGPT/ALT 36 U/L (12-78); TOT PROT 5.6 g/dl (6.4-8.2)
[2017-07-27 09:56] LABS: BASO % 0.2 % (0-2.0); EOS % 1.2 % (0-4.5); HEMATOCRIT 30.1 % (35.4-49); HEMOGLOBIN 9.4 GM/dL (11.7-16.9); LYMPH % 13.8 % (8-40); MCH 28.4 pg (25.7-33.7); MCHC 31.4 g/dl (32.0-35.9); MEAN CELL VOLUME 90.4 fl (80-96); MEAN PLT VOLUME 7.4 fl (7.5-11.1); MONO % 7.9 % (3.8-10.2); NEUT % 76.9 % (42.8-82.8); PLATELET COUNT 381 K/MM3 (134-434); RBC 3.33 M/mm3 (4.00-5.60); RDW 17.6 % (11.9-15.9); WHITE BLOOD COUNT 10.1 K/mm3 (4.0-10.0)
[2017-07-27 10:12] LABS: INR 2.6 (0.82-1.09); PROTHROMBIN TIME (PATIENT) 29.4 SEC (9.98-11.88)
--- NOTE | 2017-07-27 12:45 | PN ---
Progress Note (short form) - Note Progress Note: awake/ comfortable sometimes pulls lines oozing noted around g tube site coumadin on hold already. Vital Signs Temp 98 F 07/27/17 08:00 Pulse 86 07/27/17 09:17 Resp 18 07/27/17 08:00 BP 126/58 07/27/17 08:00 Pulse Ox 95 07/27/17 08:49 Intake & Output 07/26/17 07/27/17 07/27/17 23:59 11:59 23:59 Intake Total 3490 1860 Output Total 400 Balance 3090 1860 Intake: IV 1800 720 Normal Saline - 1,000 ml 1800 720 @ 60 mls/hr IV ASDIR [facility] Rx#:[id number] IVPB 810 260 Tube Feeding 480 480 Tube Irrigant 400 400 Output: Urine 400 [place] 400 Other: Voiding Method Indwelling Catheter Indwelling Catheter Bowel Movement Yes Yes Active Medications Acetaminophen (Tylenol Oral Solution -) 650 mg PEG BID [facility] Last Admin: 07/27/17 09:17 Dose: 650 mg Albuterol/Ipratropium (Duoneb -) 1 amp NEB RTID [facility] Last Admin: 07/27/17 08:18 Dose: 1 amp Ascorbic Acid (Vitamin C Oral Solution -) 500 mg GT DAILY [facility] Last Admin: 07/27/17 09:18 Dose: 500 mg Aspirin (Asa -) 81 mg PEG DAILY [facility] Last Admin: 07/27/17 09:18 Dose: 81 mg Carvedilol (Coreg -) 3.125 mg GT BID [facility] Last Admin: 07/27/17 09:18 Dose: 3.125 mg Clonazepam (Klonopin -) 0.5 mg PEG Q12H PRN Last Admin: 07/26/17 20:29 Dose: 0.5 mg Collagenase (Santyl -) 1 applic TP DAILY [facility] Last Admin: 07/27/17 09:20 Dose: 1 applic Digoxin (Lanoxin -) 0.125 mg PEG DAILY [facility] Last Admin: 07/27/17 09:17 Dose: 0.125 mg Meropenem (Merrem (Restricted To Id) -) 500 mg in 10 mls @ 120 mls/hr IVPUSH Q8H-IV [facility] Last Admin: 07/27/17 09:18 Dose: 120 mls/hr Sodium Chloride (Normal Saline -) 1,000 mls @ 60 mls/hr IV ASDIR [facility] Last Admin: 07/26/17 21:16 Dose: Not Given Vancomycin HCl 1,000 mg/ (Dextrose) 250 mls @ 166.667 mls/hr IVPB BID@0600, 1800 [facility] PRN Reason: Protocol Last Admin: 07/27/17 06:09 Dose: 166.667 mls/hr Morphine Sulfate (Morphine 10 Mg/5 Ml Liquid) 20 mg PO Q4H PRN Sodium Chloride (Normal Saline -) 1,000 ml IV Q20M PRN PRN Reason: MAP<65mm Hg OR SBP <90 Tamsulosin HCl (Flomax -) 0.4 mg PO DAILY@0830 [facility] Last Admin: 07/27/17 09:17 Dose: 0.4 mg CBC, BMP 07/27/17 09:35 07/27/17 07:30 INR, PTT INR 2.60 (0.82-1.09) H 07/27/17 09:35 physical exam awake/ no distress Neck supple Lungs-diminished at bases CVS-S1 and S2 regular Abdomen--soft-- oozing around peg Extremities--dressing in place. Assessment and plan Sepsis Infected left stump--s/p washing. continue antibiotics. overall prognosis poor. hold Coumadin-- monitor inr patient is DNR will follow Problem List - Problems (1) Infected wound Code(s): T14.8XXA - OTHER INJURY OF UNSPECIFIED BODY REGION, INITIAL ENCOUNTER; L08.9 - LOCAL INFECTION OF THE SKIN AND SUBCUTANEOUS TISSUE, UNSP (2) Sepsis Code(s): A41.9 - SEPSIS, UNSPECIFIED ORGANISM (3) Atrial fibrillation Code(s): I48.91 - UNSPECIFIED ATRIAL FIBRILLATION Qualifiers: Atrial fibrillation type: persistent Qualified Code(s): I48.1 - Persistent atrial fibrillation (4) Gastrointestinal tube present Code(s): Z93.1 - GASTROSTOMY STATUS
--- NOTE | 2017-07-27 13:08 | PN ---
Progress Note, Physician History of Present Illness: Awake, responsive Afebrile Chronically- ill appearing; not acutely toxic - Current Medication List Current Medications: Active Medications Acetaminophen (Tylenol Oral Solution -) 650 mg PEG BID [facility] Last Admin: 07/27/17 09:17 Dose: 650 mg Albuterol/Ipratropium (Duoneb -) 1 amp NEB RTID [facility] Last Admin: 07/27/17 08:18 Dose: 1 amp Ascorbic Acid (Vitamin C Oral Solution -) 500 mg GT DAILY [facility] Last Admin: 07/27/17 09:18 Dose: 500 mg Aspirin (Asa -) 81 mg PEG DAILY [facility] Last Admin: 07/27/17 09:18 Dose: 81 mg Carvedilol (Coreg -) 3.125 mg GT BID [facility] Last Admin: 07/27/17 09:18 Dose: 3.125 mg Clonazepam (Klonopin -) 0.5 mg PEG Q12H PRN Last Admin: 07/26/17 20:29 Dose: 0.5 mg Collagenase (Santyl -) 1 applic TP DAILY [facility] Last Admin: 07/27/17 09:20 Dose: 1 applic Digoxin (Lanoxin -) 0.125 mg PEG DAILY [facility] Last Admin: 07/27/17 09:17 Dose: 0.125 mg Meropenem (Merrem (Restricted To Id) -) 500 mg in 10 mls @ 120 mls/hr IVPUSH Q8H-IV [facility] Last Admin: 07/27/17 09:18 Dose: 120 mls/hr Sodium Chloride (Normal Saline -) 1,000 mls @ 60 mls/hr IV ASDIR [facility] Last Admin: 07/26/17 21:16 Dose: Not Given Vancomycin HCl 1,000 mg/ (Dextrose) 250 mls @ 166.667 mls/hr IVPB BID@0600, 1800 [facility] PRN Reason: Protocol Last Admin: 07/27/17 06:09 Dose: 166.667 mls/hr Morphine Sulfate (Morphine 10 Mg/5 Ml Liquid) 20 mg PO Q4H PRN Sodium Chloride (Normal Saline -) 1,000 ml IV Q20M PRN PRN Reason: MAP<65mm Hg OR SBP <90 Tamsulosin HCl (Flomax -) 0.4 mg PO DAILY@0830 [facility] Last Admin: 07/27/17 09:17 Dose: 0.4 mg - Objective Vital Signs: Vital Signs Temperature 98 F 07/27/17 08:00 Pulse Rate 86 07/27/17 09:17 Respiratory Rate 18 07/27/17 08:00 Blood Pressure 126/58 07/27/17 08:00 O2 Sat by Pulse Oximetry (%) 95 07/27/17 08:49 Constitutional: Yes: No Distress Eyes: Yes: Conjunctiva Clear Cardiovascular: Yes: Regular Rate and Rhythm, S1, S2 Respiratory: Yes: Rhonchi Gastrointestinal: Yes: Normal Bowel Sounds, Soft. No: Tenderness Extremities: Yes: Other (L LE stump with necrotic, draining wound) Labs: CBC, BMP 07/27/17 09:35 07/27/17 07:30 INR, PTT INR 2.60 (0.82-1.09) H 07/27/17 09:35 Assessment/Plan Infected L LE stump site Sepsis UTI ? pneumonia Continue vancomycin Substitute ertapenem Local wound care
[2017-07-27] MEDS ORDERED: ERTAPENEM SODIUM 1 GM/50 ML PRE-DOCKED IVPB SCH (13:15)
--- NOTE | 2017-07-27 13:35 | PN ---
Progress Note (short form) - Note Progress Note: PULMONARY Appears comfortable. No fevers recorded. Last Vital Signs Temp Pulse Resp BP Pulse Ox 98 F 86 18 126/58 95 07/27/17 08:00 07/27/17 09:17 07/27/17 08:00 07/27/17 08:00 07/27/17 08:49 Gen: breathing nonlabored Heart: RRR Lung: scattered rhonchi Abd: soft, nontender Ext: bilateral BKA CBC, BMP 07/27/17 09:35 07/27/17 07:30 Active Medications Acetaminophen (Tylenol Oral Solution -) 650 mg PEG BID [facility] Last Admin: 07/27/17 09:17 Dose: 650 mg Albuterol/Ipratropium (Duoneb -) 1 amp NEB RTID [facility] Last Admin: 07/27/17 08:18 Dose: 1 amp Ascorbic Acid (Vitamin C Oral Solution -) 500 mg GT DAILY [facility] Last Admin: 07/27/17 09:18 Dose: 500 mg Aspirin (Asa -) 81 mg PEG DAILY [facility] Last Admin: 07/27/17 09:18 Dose: 81 mg Carvedilol (Coreg -) 3.125 mg GT BID [facility] Last Admin: 07/27/17 09:18 Dose: 3.125 mg Clonazepam (Klonopin -) 0.5 mg PEG Q12H PRN Last Admin: 07/26/17 20:29 Dose: 0.5 mg Collagenase (Santyl -) 1 applic TP DAILY [facility] Last Admin: 07/27/17 09:20 Dose: 1 applic Digoxin (Lanoxin -) 0.125 mg PEG DAILY [facility] Last Admin: 07/27/17 09:17 Dose: 0.125 mg Sodium Chloride (Normal Saline -) 1,000 mls @ 60 mls/hr IV ASDIR [facility] Last Admin: 07/26/17 21:16 Dose: Not Given Vancomycin HCl 1,000 mg/ (Dextrose) 250 mls @ 166.667 mls/hr IVPB BID@0600, 1800 [facility] PRN Reason: Protocol Last Admin: 07/27/17 06:09 Dose: 166.667 mls/hr Ertapenem 1 gm/ Sodium (Chloride) 100 mls @ 200 mls/hr IVPB DAILY [facility] Morphine Sulfate (Morphine 10 Mg/5 Ml Liquid) 20 mg PO Q4H PRN Sodium Chloride (Normal Saline -) 1,000 ml IV Q20M PRN PRN Reason: MAP<65mm Hg OR SBP <90 Tamsulosin HCl (Flomax -) 0.4 mg PO DAILY@0830 [facility] Last Admin: 07/27/17 09:17 Dose: 0.4 mg A/P Stump Infection UTI r/o Pneumonia Sepsis Atrial Fibrillation Dementia - continue antibiotics - wound care - f/u cultures - inhaled bronchodilators - enteral feeds - aspiration precautions - holding anticoagulation
[2017-07-27] MEDS: ERTAPENEM SODIUM 1 GM in SODIUM CHLORIDE 100 ML IVPB SCH (14:51)
[2017-07-27] MEDS: SODIUM CHLORIDE 1,000 ML IV SCH (16:59)
[2017-07-27] MEDS: clonazePAM 0.5 MG TABLET PEG PRN (21:28)
[2017-07-28] MEDS: VANCOMYCIN 1,000 MG in DEXTROSE 5%-WATER - 250 ML IVPB SCH ×2 (05:57→17:16)
[2017-07-28] MEDS: ALBUTEROL SO4 2.5/IPRATROPIUM 0.5 INH SOL 3 ML VIAL.NEB. NEB SCH ×2 (08:00→21:15)
[2017-07-28] MEDS: TAMSULOSIN HCL 0.4 MG CAP.ER.24H (FP) PO SCH (08:19)
[2017-07-28] MEDS ORDERED: PT OWN MED DRAWER 7, Y5N ONE ×2 (09:06→17:13)
[2017-07-28] MEDS: DIGOXIN 0.125 MG TABLET (FP) PEG SCH (09:09)
[2017-07-28] MEDS: ASPIRIN 81 MG CHEWABLE TABLETS PEG SCH (09:09)
[2017-07-28] MEDS: COLLAGENASE CLOSTRIDIUM HIST. 30 GRAMS TUBE TP SCH (09:10)
[2017-07-28] MEDS: CARVEDILOL 3.125 MG TABLET (FP) GT SCH ×2 (09:10→21:23)
[2017-07-28] MEDS: ACETAMINOPHEN 650 MG/20.3 ML ORAL SOLUTION (CUPS) PEG SCH ×2 (09:10→21:23)
[2017-07-28] MEDS: ASCORBIC ACID 500 MG/5 ML UNIT DOSE CUP GT SCH (09:10)
[2017-07-28] MEDS: ERTAPENEM SODIUM 1 GM in SODIUM CHLORIDE 100 ML IVPB SCH (09:15)
[2017-07-28 09:28] LABS: INR 2.02 (0.82-1.09); PROTHROMBIN TIME (PATIENT) 22.8 SEC (9.98-11.88)
--- NOTE | 2017-07-28 10:35 | PN ---
Progress Note (short form) - Note Progress Note: pt seen/ examined. overall condition same. Vital Signs Temp 98.3 F 07/28/17 05:57 Pulse 121 H 07/28/17 09:09 Resp 18 07/28/17 05:57 BP 136/68 07/28/17 05:57 Pulse Ox 95 07/27/17 21:00 Intake & Output 07/27/17 07/27/17 07/28/17 11:59 23:59 11:59 Intake Total 1860 5540 Output Total 800 400 Balance 1860 4740 -400 Intake: IV 720 1920 Normal Saline - 1,000 ml 720 1920 @ 60 mls/hr IV ASDIR [facility] Rx#:[id number] IVPB 260 980 Tube Feeding 480 1440 Tube Irrigant 400 1200 Output: Urine 800 400 [place] 800 400 Other: Voiding Method Indwelling Catheter Indwelling Catheter Bowel Movement Yes Yes No Active Medications Acetaminophen (Tylenol Oral Solution -) 650 mg PEG BID [facility] Last Admin: 07/28/17 09:10 Dose: 650 mg Albuterol/Ipratropium (Duoneb -) 1 amp NEB RTID [facility] Last Admin: 07/28/17 08:00 Dose: 1 amp Ascorbic Acid (Vitamin C Oral Solution -) 500 mg GT DAILY [facility] Last Admin: 07/28/17 09:10 Dose: 500 mg Aspirin (Asa -) 81 mg PEG DAILY [facility] Last Admin: 07/28/17 09:09 Dose: 81 mg Carvedilol (Coreg -) 3.125 mg GT BID [facility] Last Admin: 07/28/17 09:10 Dose: 3.125 mg Clonazepam (Klonopin -) 0.5 mg PEG Q12H PRN Last Admin: 07/27/17 21:28 Dose: 0.5 mg Collagenase (Santyl -) 1 applic TP DAILY [facility] Last Admin: 07/28/17 09:10 Dose: 1 applic Digoxin (Lanoxin -) 0.125 mg PEG DAILY [facility] Last Admin: 07/28/17 09:09 Dose: 0.125 mg Sodium Chloride (Normal Saline -) 1,000 mls @ 60 mls/hr IV ASDIR [facility] Last Admin: 07/27/17 16:59 Dose: 60 mls/hr Vancomycin HCl 1,000 mg/ (Dextrose) 250 mls @ 166.667 mls/hr IVPB BID@0600, 1800 [facility] PRN Reason: Protocol Last Admin: 07/28/17 05:57 Dose: 166.667 mls/hr Ertapenem 1 gm/ Sodium (Chloride) 100 mls @ 200 mls/hr IVPB DAILY [facility] Last Admin: 07/28/17 09:15 Dose: 200 mls/hr Morphine Sulfate (Morphine 10 Mg/5 Ml Liquid) 20 mg PO Q4H PRN Sodium Chloride (Normal Saline -) 1,000 ml IV Q20M PRN PRN Reason: MAP<65mm Hg OR SBP <90 Tamsulosin HCl (Flomax -) 0.4 mg PO DAILY@0830 [facility] Last Admin: 07/28/17 08:19 Dose: 0.4 mg CBC, BMP 07/27/17 09:35 07/27/17 07:30 INR, PTT INR 2.02 (0.82-1.09) H 07/28/17 07:50 physical exam awake/ no distress. Neck supple. Lungs-diminished at bases CVS-S1 and S2 regular Abdomen--soft-- oozing around peg Extremities--dressing in place. Assessment and plan Sepsis Infected left stump--s/p washing. continue antibiotics. overall prognosis poor. monitor inr. patient is DNR vascular to follow - dressing to be changed. will follow Problem List - Problems (1) Infected wound Code(s): T14.8XXA - OTHER INJURY OF UNSPECIFIED BODY REGION, INITIAL ENCOUNTER; L08.9 - LOCAL INFECTION OF THE SKIN AND SUBCUTANEOUS TISSUE, UNSP (2) Sepsis Code(s): A41.9 - SEPSIS, UNSPECIFIED ORGANISM (3) Atrial fibrillation Code(s): I48.91 - UNSPECIFIED ATRIAL FIBRILLATION Qualifiers: Atrial fibrillation type: persistent Qualified Code(s): I48.1 - Persistent atrial fibrillation (4) Gastrointestinal tube present Code(s): Z93.1 - GASTROSTOMY STATUS
--- NOTE | 2017-07-28 12:34 | PN ---
Progress Note (short form) - Note Progress Note: awake, alert s/p stump debridement 07/25 Vital Signs Period Temp Pulse Resp BP Sys/Mcdaniel Pulse Ox Last 24 Hr 97.9 F-100.6 F 86-121 18-22 126-136/68-86 95 cor-rrr lungs bilateral rhonchi abd soft,nt+GT ext bilateral BKA left open right with purulence arndt CBC, BMP 07/27/17 09:35 07/27/17 07:30 Microbiology 07/25/17 18:30 Leg - Left Lower Gram Stain - Final 07/25/17 18:30 Leg - Left Lower Wound Culture - Preliminary Proteus Mirabilis Group D Strep Or Entero Coccus 07/23/17 03:30 Blood - Peripheral Venous Blood Culture - Final NO GROWTH AFTER 5 DAYS INCUBATION 07/23/17 03:30 Blood - Peripheral Venous Blood Culture - Final NO GROWTH AFTER 5 DAYS INCUBATION 07/23/17 03:48 Wound Gram Stain - Final 07/23/17 03:48 Wound Wound Culture - Final Escherichia Coli Esbl [employer] Proteus Mirabilis Enterococcus Faecalis Mr S Aureus 07/23/17 03:48 Wound Gram Stain - Final 07/23/17 03:48 Wound Wound Culture - Final 07/23/17 04:00 Urine - Urine Arndt Urine Culture - Final Escherichia Coli Esbl [employer] Laboratory Tests 07/26/17 07:00 Vancomycin Pre-Dose 16.054 H* D a/p sepsis infected left BKA site- s/p debridement cannot rule out pneumonia UTI continue vancomycin and ertapenem day #3 s/p debridement overall prognosis poor Problem List - Problems (1) Sepsis Code(s): A41.9 - SEPSIS, UNSPECIFIED ORGANISM (2) Infected wound Code(s): T14.8XXA - OTHER INJURY OF UNSPECIFIED BODY REGION, INITIAL ENCOUNTER; L08.9 - LOCAL INFECTION OF THE SKIN AND SUBCUTANEOUS TISSUE, UNSP (3) Pneumonia Code(s): J18.9 - PNEUMONIA, UNSPECIFIED ORGANISM (4) UTI (urinary tract infection) Code(s): N39.0 - URINARY TRACT INFECTION, SITE NOT SPECIFIED Qualifiers:
--- NOTE | 2017-07-28 13:20 | PN ---
Progress Note (short form) - Note Progress Note: Appears comfortable. Breathing is non-labored. No fevers recorded. No acute events overnight. Intake & Output 07/25/17 07/26/17 07/27/17 07/28/17 23:59 23:59 23:59 23:59 Intake Total 700 4985 7400 Output Total 730 600 800 400 Balance -30 4385 6600 -400 Last Vital Signs Temp Pulse Resp BP Pulse Ox 97.9 F 121 H 18 133/77 95 07/28/17 09:00 07/28/17 09:09 07/28/17 09:00 07/28/17 09:00 07/27/17 21:00 Active Medications Acetaminophen (Tylenol Oral Solution -) 650 mg PEG BID [facility] Last Admin: 07/28/17 09:10 Dose: 650 mg Albuterol/Ipratropium (Duoneb -) 1 amp NEB RTID [facility] Last Admin: 07/28/17 08:00 Dose: 1 amp Ascorbic Acid (Vitamin C Oral Solution -) 500 mg GT DAILY [facility] Last Admin: 07/28/17 09:10 Dose: 500 mg Aspirin (Asa -) 81 mg PEG DAILY [facility] Last Admin: 07/28/17 09:09 Dose: 81 mg Carvedilol (Coreg -) 3.125 mg GT BID [facility] Last Admin: 07/28/17 09:10 Dose: 3.125 mg Clonazepam (Klonopin -) 0.5 mg PEG Q12H PRN Last Admin: 07/27/17 21:28 Dose: 0.5 mg Collagenase (Santyl -) 1 applic TP DAILY [facility] Last Admin: 07/28/17 09:10 Dose: 1 applic Digoxin (Lanoxin -) 0.125 mg PEG DAILY [facility] Last Admin: 07/28/17 09:09 Dose: 0.125 mg Sodium Chloride (Normal Saline -) 1,000 mls @ 60 mls/hr IV ASDIR [facility] Last Admin: 07/27/17 16:59 Dose: 60 mls/hr Vancomycin HCl 1,000 mg/ (Dextrose) 250 mls @ 166.667 mls/hr IVPB BID@0600, 1800 [facility] PRN Reason: Protocol Last Admin: 07/28/17 05:57 Dose: 166.667 mls/hr Ertapenem 1 gm/ Sodium (Chloride) 100 mls @ 200 mls/hr IVPB DAILY [facility] Last Admin: 07/28/17 09:15 Dose: 200 mls/hr Morphine Sulfate (Morphine 10 Mg/5 Ml Liquid) 20 mg PO Q4H PRN Sodium Chloride (Normal Saline -) 1,000 ml IV Q20M PRN PRN Reason: MAP<65mm Hg OR SBP <90 Tamsulosin HCl (Flomax -) 0.4 mg PO DAILY@0830 [facility] Last Admin: 07/28/17 08:19 Dose: 0.4 mg Gen: breathing nonlabored Heart: RRR Lung: scattered rhonchi Abd: soft, nontender Ext: bilateral BKA Laboratory Results - last 24 hr 07/28/17 07:50 PT with INR 22.80 H INR 2.02 H A/P Stump Infection UTI r/o Pneumonia Sepsis Atrial Fibrillation Dementia - ABX per ID - Local wound care - inhaled bronchodilators - enteral feeds - aspiration precautions Dr Qureshi
--- NOTE | 2017-07-28 16:24 | PN ---
Progress Note (short form) - Note Progress Note: Vascular Surgery Pt seen and examined. Left bka stump dressing changed. Packing changed. minimal pus found. repack with 2 inch iodoform packing. Pt was hospice at the [place]. Local wound care. No need to do AKA. Conservative management. Devan Kothari DO
[2017-07-28] MEDS: SODIUM CHLORIDE 1,000 ML IV SCH (17:17)
[2017-07-28] MEDS: clonazePAM 0.5 MG TABLET PEG PRN (21:23)
[2017-07-28] MEDS ORDERED: WARFARIN NA 5 MG TABLET (UD) PO ONE (22:00)
[2017-07-29] MEDS: VANCOMYCIN 1,000 MG in DEXTROSE 5%-WATER - 250 ML IVPB SCH ×2 (05:48→17:18)
[2017-07-29] MEDS: ALBUTEROL SO4 2.5/IPRATROPIUM 0.5 INH SOL 3 ML VIAL.NEB. NEB SCH ×3 (08:30→22:00)
--- NOTE | 2017-07-29 08:52 | PN ---
Progress Note (short form) - Note Progress Note: Pt seen/ examined no new issues dressing changed vascular f/u noted Vital Signs Temp 97.9 F 07/29/17 06:00 Pulse 82 07/29/17 06:00 Resp 20 07/29/17 06:00 BP 125/63 07/29/17 06:00 Pulse Ox 96 07/28/17 20:13 Intake & Output 07/28/17 07/28/17 07/29/17 11:59 23:59 11:59 Intake Total 1950 850 Output Total 400 200 Balance -400 1950 650 Intake: IV 720 600 Normal Saline - 1,000 ml 720 600 @ 60 mls/hr IV ASDIR [facility] Rx#:[id number] IVPB 350 250 Tube Feeding 480 Tube Irrigant 400 Output: Urine 400 200 [place] 400 200 Other: Voiding Method Indwelling Catheter Indwelling Catheter Bowel Movement No Active Medications Acetaminophen (Tylenol Oral Solution -) 650 mg PEG BID [facility] Last Admin: 07/28/17 21:23 Dose: 650 mg Albuterol/Ipratropium (Duoneb -) 1 amp NEB RTID [facility] Last Admin: 07/28/17 21:15 Dose: 1 amp Ascorbic Acid (Vitamin C Oral Solution -) 500 mg GT DAILY [facility] Last Admin: 07/28/17 09:10 Dose: 500 mg Aspirin (Asa -) 81 mg PEG DAILY [facility] Last Admin: 07/28/17 09:09 Dose: 81 mg Carvedilol (Coreg -) 3.125 mg GT BID [facility] Last Admin: 07/28/17 21:23 Dose: 3.125 mg Clonazepam (Klonopin -) 0.5 mg PEG Q12H PRN Last Admin: 07/28/17 21:23 Dose: 0.5 mg Collagenase (Santyl -) 1 applic TP DAILY [facility] Last Admin: 07/28/17 09:10 Dose: 1 applic Digoxin (Lanoxin -) 0.125 mg PEG DAILY [facility] Last Admin: 07/28/17 09:09 Dose: 0.125 mg Sodium Chloride (Normal Saline -) 1,000 mls @ 60 mls/hr IV ASDIR [facility] Last Admin: 07/28/17 17:17 Dose: 60 mls/hr Vancomycin HCl 1,000 mg/ (Dextrose) 250 mls @ 166.667 mls/hr IVPB BID@0600, 1800 [facility] PRN Reason: Protocol Last Admin: 07/29/17 05:48 Dose: 166.667 mls/hr Ertapenem 1 gm/ Sodium (Chloride) 100 mls @ 200 mls/hr IVPB DAILY [facility] Last Admin: 07/28/17 09:15 Dose: 200 mls/hr Morphine Sulfate (Morphine 10 Mg/5 Ml Liquid) 20 mg PO Q4H PRN Sodium Chloride (Normal Saline -) 1,000 ml IV Q20M PRN PRN Reason: MAP<65mm Hg OR SBP <90 Tamsulosin HCl (Flomax -) 0.4 mg PO DAILY@0830 [facility] Last Admin: 07/28/17 08:19 Dose: 0.4 mg Warfarin Sodium (Coumadin -) 5 mg PO DAILY@1800 [facility] CBC, BMP 07/27/17 09:35 07/27/17 07:30 Microbiology 07/25/17 18:30 Gram Stain - Final Leg - Left Lower Wound Culture - Preliminary Proteus Mirabilis Group D Strep Or Entero Coccus physical exam awake/ no distress. Neck supple. Lungs-diminished at bases CVS-S1 and S2 regular Abdomen--soft-- oozing around peg Extremities--dressing in place. Assessment and plan Sepsis Infected left stump--s/p washing. continue antibiotics. overall prognosis poor. monitor inr. 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
[2017-07-29] MEDS ORDERED: PT OWN MED DRAWER 7, Y5N ONE ×2 (10:15→17:11)
[2017-07-29] MEDS: ACETAMINOPHEN 650 MG/20.3 ML ORAL SOLUTION (CUPS) PEG SCH ×2 (10:26→23:35)
[2017-07-29] MEDS: ASPIRIN 81 MG CHEWABLE TABLETS PEG SCH (10:27)
[2017-07-29] MEDS: TAMSULOSIN HCL 0.4 MG CAP.ER.24H (FP) PO SCH (10:27)
[2017-07-29] MEDS: CARVEDILOL 3.125 MG TABLET (FP) GT SCH ×2 (10:27→23:35)
[2017-07-29] MEDS: DIGOXIN 0.125 MG TABLET (FP) PEG SCH (10:28)
[2017-07-29] MEDS: ERTAPENEM SODIUM 1 GM in SODIUM CHLORIDE 100 ML IVPB SCH (10:28)
[2017-07-29] MEDS: ASCORBIC ACID 500 MG/5 ML UNIT DOSE CUP GT SCH (10:29)
[2017-07-29] MEDS: COLLAGENASE CLOSTRIDIUM HIST. 30 GRAMS TUBE TP SCH (10:29)
--- NOTE | 2017-07-29 13:31 | PN ---
Progress Note, Physician History of Present Illness: PULMONARY ALERT,COMFORTABLE,-SOB,-CONGESTION - Current Medication List Current Medications: Active Medications Acetaminophen (Tylenol Oral Solution -) 650 mg PEG BID [facility] Last Admin: 07/29/17 10:26 Dose: 650 mg Albuterol/Ipratropium (Duoneb -) 1 amp NEB RTID [facility] Last Admin: 07/29/17 08:30 Dose: 1 amp Ascorbic Acid (Vitamin C Oral Solution -) 500 mg GT DAILY [facility] Last Admin: 07/29/17 10:29 Dose: 500 mg Aspirin (Asa -) 81 mg PEG DAILY [facility] Last Admin: 07/29/17 10:27 Dose: 81 mg Carvedilol (Coreg -) 3.125 mg GT BID [facility] Last Admin: 07/29/17 10:27 Dose: 3.125 mg Clonazepam (Klonopin -) 0.5 mg PEG Q12H PRN Last Admin: 07/28/17 21:23 Dose: 0.5 mg Collagenase (Santyl -) 1 applic TP DAILY [facility] Last Admin: 07/29/17 10:29 Dose: 1 applic Digoxin (Lanoxin -) 0.125 mg PEG DAILY [facility] Last Admin: 07/29/17 10:28 Dose: 0.125 mg Vancomycin HCl 1,000 mg/ (Dextrose) 250 mls @ 166.667 mls/hr IVPB BID@0600, 1800 [facility] PRN Reason: Protocol Last Admin: 07/29/17 05:48 Dose: 166.667 mls/hr Ertapenem 1 gm/ Sodium (Chloride) 100 mls @ 200 mls/hr IVPB DAILY [facility] Last Admin: 07/29/17 10:28 Dose: 200 mls/hr Morphine Sulfate (Morphine 10 Mg/5 Ml Liquid) 20 mg PO Q4H PRN Tamsulosin HCl (Flomax -) 0.4 mg PO DAILY@0830 [facility] Last Admin: 07/29/17 10:27 Dose: 0.4 mg Warfarin Sodium (Coumadin -) 5 mg PO DAILY@1800 [facility] - Objective Vital Signs: Vital Signs Temperature 97.9 F 07/29/17 06:00 Pulse Rate 90 07/29/17 10:28 Respiratory Rate 20 07/29/17 06:00 Blood Pressure 125/63 07/29/17 06:00 O2 Sat by Pulse Oximetry (%) 96 07/28/17 20:13 Constitutional: Yes: Well Nourished, Calm Eyes: Yes: WNL HENT: Yes: WNL Neck: Yes: WNL Cardiovascular: Yes: Pulse Irregular, S1, S2 Respiratory: Yes: Diminished, Rhonchi (FEW RHONCHI) Gastrointestinal: Yes: Normal Bowel Sounds, Soft Extremities: Yes: Amputation (DE BKA) Labs: CBC, BMP 07/27/17 09:35 07/27/17 07:30 INR, PTT INR 2.02 (0.82-1.09) H 07/28/17 07:50 Problem List - Problems (1) Anemia Code(s): D64.9 - ANEMIA, UNSPECIFIED (2) Hx of BKA Code(s): Z89.519 - ACQUIRED ABSENCE OF UNSPECIFIED LEG BELOW KNEE (3) Infected wound Code(s): T14.8XXA - OTHER INJURY OF UNSPECIFIED BODY REGION, INITIAL ENCOUNTER; L08.9 - LOCAL INFECTION OF THE SKIN AND SUBCUTANEOUS TISSUE, UNSP (4) Pneumonia Code(s): J18.9 - PNEUMONIA, UNSPECIFIED ORGANISM (5) Sepsis Code(s): A41.9 - SEPSIS, UNSPECIFIED ORGANISM (6) Atrial fibrillation Code(s): I48.91 - UNSPECIFIED ATRIAL FIBRILLATION Qualifiers: Atrial fibrillation type: persistent Qualified Code(s): I48.1 - Persistent atrial fibrillation (7) CAD (coronary artery disease) Code(s): I25.10 - ATHSCL HEART DISEASE OF [place] CORONARY ARTERY W/O ANG PCTRS (8) Dementia Code(s): F03.90 - UNSPECIFIED DEMENTIA WITHOUT BEHAVIORAL DISTURBANCE Qualifiers: Dementia type: Alzheimer's disease Dementia behavioral disturbance: without behavioral disturbance (9) Elevated troponin Code(s): R74.8 - ABNORMAL LEVELS OF OTHER SERUM ENZYMES (10) Diabetes Code(s): E11.9 - TYPE 2 DIABETES MELLITUS WITHOUT COMPLICATIONS 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 Assessment/Plan IMP ACUTE HYPOXEMIC RESPIRATORY FAILURE IMPROVED S/P SEPSIS PNEUMONIA INFECTED LEFT STUMP AFIB DEMENTIA ANEMIA SUPRA-THERAPEUTIC INR PLAN IV ANTIBIOTICS PER ID INHALED BRONCHODILATORS O2 MONITOR INR,CBC,LYTES DR BERGER Problem List - Problems (1) Anemia Code(s): D64.9 - ANEMIA, UNSPECIFIED (2) Hx of BKA Code(s): Z89.519 - ACQUIRED ABSENCE OF UNSPECIFIED LEG BELOW KNEE (3) Infected wound Code(s): T14.8XXA - OTHER INJURY OF UNSPECIFIED BODY REGION, INITIAL ENCOUNTER; L08.9 - LOCAL INFECTION OF THE SKIN AND SUBCUTANEOUS TISSUE, UNSP (4) Pneumonia Code(s): J18.9 - PNEUMONIA, UNSPECIFIED ORGANISM (5) Sepsis Code(s): A41.9 - SEPSIS, UNSPECIFIED ORGANISM (6) Atrial fibrillation Code(s): I48.91 - UNSPECIFIED ATRIAL FIBRILLATION Qualifiers: Atrial fibrillation type: persistent Qualified Code(s): I48.1 - Persistent atrial fibrillation (7) CAD (coronary artery disease) Code(s): I25.10 - ATHSCL HEART DISEASE OF [place] CORONARY ARTERY W/O ANG PCTRS (8) Dementia Code(s): F03.90 - UNSPECIFIED DEMENTIA WITHOUT BEHAVIORAL DISTURBANCE Qualifiers: Dementia type: Alzheimer's disease Dementia behavioral disturbance: without behavioral disturbance (9) Elevated troponin Code(s): R74.8 - ABNORMAL LEVELS OF OTHER SERUM ENZYMES (10) Diabetes Code(s): E11.9 - TYPE 2 DIABETES MELLITUS WITHOUT COMPLICATIONS 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
--- NOTE | 2017-07-29 14:46 | PN ---
Progress Note (short form) - Note Progress Note: awake, alert s/p stump debridement 07/25 day #6/7 antibiotics Vital Signs Period Temp Pulse Resp BP Sys/Mcdaniel Pulse Ox Last 24 Hr 97.5 F-98.4 F 82-102 18-20 125-140/7-80 95-96 cor-rrr lungs clear abd soft,nt ext bilateral BKA- dressings intact CBC, BMP 07/27/17 09:35 07/27/17 07:30 Microbiology 07/25/17 18:30 Leg - Left Lower Gram Stain - Final 07/25/17 18:30 Leg - Left Lower Wound Culture - Final Proteus Mirabilis Enterococcus Faecalis 07/23/17 03:30 Blood - Peripheral Venous Blood Culture - Final NO GROWTH AFTER 5 DAYS INCUBATION 07/23/17 03:30 Blood - Peripheral Venous Blood Culture - Final NO GROWTH AFTER 5 DAYS INCUBATION 07/23/17 03:48 Wound Gram Stain - Final 07/23/17 03:48 Wound Wound Culture - Final Escherichia Coli Esbl Access Developer Proteus Mirabilis Enterococcus Faecalis Mr S Aureus 07/23/17 03:48 Wound Gram Stain - Final 07/23/17 03:48 Wound Wound Culture - Final 07/23/17 04:00 Urine - Urine [place] Urine Culture - Final Escherichia Coli Esbl Access Developer a/p sepsis infected left BKA site- s/p debridement UTI continue vancomycin and ertapenem day #6/7 s/p debridement can d/c antibiotics in am and continue local care per surgery overall prognosis poor Problem List - Problems (1) Sepsis Code(s): A41.9 - SEPSIS, UNSPECIFIED ORGANISM (2) Infected wound Code(s): T14.8XXA - OTHER INJURY OF UNSPECIFIED BODY REGION, INITIAL ENCOUNTER; L08.9 - LOCAL INFECTION OF THE SKIN AND SUBCUTANEOUS TISSUE, UNSP (3) Pneumonia Code(s): J18.9 - PNEUMONIA, UNSPECIFIED ORGANISM (4) UTI (urinary tract infection) Code(s): N39.0 - URINARY TRACT INFECTION, SITE NOT SPECIFIED Qualifiers:
[2017-07-29 19:13] LABS: INR 1.91 (0.82-1.09); PROTHROMBIN TIME (PATIENT) 21.6 SEC (9.98-11.88)
[2017-07-29] MEDS: WARFARIN NA 5 MG TABLET (UD) PO SCH (19:30)
[2017-07-30] MEDS ORDERED: PT OWN MED DRAWER 7, Y5N ONE ×2 (05:54→09:54)
[2017-07-30] MEDS: VANCOMYCIN 1,000 MG in DEXTROSE 5%-WATER - 250 ML IVPB SCH ×2 (07:01→17:28)
[2017-07-30 09:13] LABS: BASO % 1.1 % (0-2.0); EOS % 1.7 % (0-4.5); HEMATOCRIT 28.8 % (35.4-49); HEMOGLOBIN 9.1 GM/dL (11.7-16.9); LYMPH % 22.8 % (8-40); MCH 28.5 pg (25.7-33.7); MCHC 31.5 g/dl (32.0-35.9); MEAN CELL VOLUME 90.4 fl (80-96); MEAN PLT VOLUME 8.3 fl (7.5-11.1); NEUT % 68.4 % (42.8-82.8); PLATELET COUNT 387 K/MM3 (134-434); RBC 3.19 M/mm3 (4.00-5.60); RDW 17.5 % (11.9-15.9); WHITE BLOOD COUNT 8.2 K/mm3 (4.0-10.0)
[2017-07-30 09:20] LABS: INR 2.27 (0.82-1.09); PROTHROMBIN TIME (PATIENT) 25.7 SEC (9.98-11.88)
[2017-07-30 09:30] LABS: ALBUMIN 1.4 g/dl (3.4-5.0); ANION GAP 6 (8-16); BLOOD UREA NITROGEN 12 mg/dL (7-18); CALCIUM 7.2 mg/dL (8.5-10.1); CHLORIDE 108 mmol/L (98-107); CO2 27 mmol/L (21-32); CREATININE 0.3 mg/dL (0.7-1.3); GLUCOSE,RANDOM 105 mg/dL (74-106); POTASSIUM 5.1 mmol/L (3.5-5.1); SGOT/AST 37 U/L (15-37); SGPT/ALT 37 U/L (12-78); SODIUM 141 mmol/L (136-145)
[2017-07-30 09:31] LABS: ALK PHOS 108 U/L (45-117); BILIRUBIN,TOTAL 0.3 mg/dL (0.2-1.0); TOT PROT 5.2 g/dl (6.4-8.2)
--- NOTE | 2017-07-30 09:38 | DS ---
Physical Examination Vital Signs: Vital Signs Temperature 97.4 F L 07/30/17 05:38 Pulse Rate 108 H 07/30/17 05:38 Respiratory Rate 20 07/30/17 05:38 Blood Pressure 148/88 07/30/17 05:38 O2 Sat by Pulse Oximetry (%) 95 07/29/17 21:00 Labs: CBC, BMP 07/30/17 07:45 07/30/17 07:45 Discharge Summary Reason For Visit: SEVERE SEPSIS UTI LOCAL INFECTION OF WOU Current Active Problems Acute hypoxemic respiratory failure (Acute) Anemia (Acute) Elevated troponin I level (Acute) Gastrointestinal tube present (Acute) Hx of BKA (Acute) Infected wound (Acute) Pneumonia (Acute) Sepsis (Acute) Severe sepsis (Acute) Supratherapeutic INR (Acute) UTI (urinary tract infection) (Acute) Condition: Stable - Instructions Referrals: Remigio Del Toro MD [Primary Care Provider] - - Home Medications Comprehensive Discharge Medication List: Ambulatory Orders Acetaminophen [Pain Relief] 650 mg PEG BID 02/24/17 Digoxin [Lanoxin -] 0.125 mg PEG DAILY 05/21/17 Clonazepam [Klonopin] 1 mg PEG Q12H 07/23/17 Morphine Oral Concentrate [Roxanol 20 mg/mL Liquid -] 5 mg PO QID 07/23/17 Multivit-Minerals/Ferrous Fum [Multivitamin Liquid] 5 ml GT DAILY 07/23/17 Tamsulosin HCl [Flomax] 0.4 mg PEG DAILY 07/23/17 Vit A/Vitamin D3/E/Aloe V/Zinc [Periguard Ointment] 100 gm TP DAILY 07/23/17 Albuterol 2.5/Ipratropium 0.5 [Duoneb -] 1 amp NEB RTID amp 07/30/17 Carvedilol [Coreg -] 3.125 mg GT BID tablet 07/30/17 Collagenase Clostridium Hist. [Santyl -] 1 applic TP DAILY tube 07/30/17 Warfarin Na [Coumadin -] 5 mg PO DAILY@1800 tablet 07/30/17
[2017-07-30] MEDS: TAMSULOSIN HCL 0.4 MG CAP.ER.24H (FP) PO SCH (09:57)
[2017-07-30] MEDS: DIGOXIN 0.125 MG TABLET (FP) PEG SCH (09:57)
[2017-07-30] MEDS: ACETAMINOPHEN 650 MG/20.3 ML ORAL SOLUTION (CUPS) PEG SCH ×2 (09:58→22:10)
[2017-07-30] MEDS: ASPIRIN 81 MG CHEWABLE TABLETS PEG SCH (09:58)
[2017-07-30] MEDS: CARVEDILOL 3.125 MG TABLET (FP) GT SCH ×2 (09:59→22:10)
[2017-07-30] MEDS: ERTAPENEM SODIUM 1 GM in SODIUM CHLORIDE 100 ML IVPB SCH (09:59)
[2017-07-30] MEDS: ASCORBIC ACID 500 MG/5 ML UNIT DOSE CUP GT SCH (09:59)
[2017-07-30] MEDS: COLLAGENASE CLOSTRIDIUM HIST. 30 GRAMS TUBE TP SCH (10:03)
[2017-07-30] MEDS: ALBUTEROL SO4 2.5/IPRATROPIUM 0.5 INH SOL 3 ML VIAL.NEB. NEB SCH ×3 (12:14→22:15)
[2017-07-30] MEDS ORDERED: INSULIN (NOVOLOG) ASPART 100 UNITS/ML 10ML VIAL ONE (15:23)
--- NOTE | 2017-07-30 15:23 | PN ---
Progress Note, Physician Chief Complaint: DENIES SOB/CP - Current Medication List Current Medications: Active Medications Acetaminophen (Tylenol Oral Solution -) 650 mg PEG BID [facility] Last Admin: 07/30/17 09:58 Dose: 650 mg Albuterol/Ipratropium (Duoneb -) 1 amp NEB RTID [facility] Last Admin: 07/30/17 14:24 Dose: 1 amp Ascorbic Acid (Vitamin C Oral Solution -) 500 mg GT DAILY [facility] Last Admin: 07/30/17 09:59 Dose: 500 mg Aspirin (Asa -) 81 mg PEG DAILY [facility] Last Admin: 07/30/17 09:58 Dose: 81 mg Carvedilol (Coreg -) 3.125 mg GT BID [facility] Last Admin: 07/30/17 09:59 Dose: 3.125 mg Clonazepam (Klonopin -) 0.5 mg PEG Q12H PRN Last Admin: 07/28/17 21:23 Dose: 0.5 mg Collagenase (Santyl -) 1 applic TP DAILY [facility] Last Admin: 07/30/17 10:03 Dose: 1 applic Digoxin (Lanoxin -) 0.125 mg PEG DAILY [facility] Last Admin: 07/30/17 09:57 Dose: 0.125 mg Vancomycin HCl 1,000 mg/ (Dextrose) 250 mls @ 166.667 mls/hr IVPB BID@0600, 1800 [facility] PRN Reason: Protocol Last Admin: 07/30/17 07:01 Dose: 166.667 mls/hr Ertapenem 1 gm/ Sodium (Chloride) 100 mls @ 200 mls/hr IVPB DAILY [facility] Last Admin: 07/30/17 09:59 Dose: 200 mls/hr Morphine Sulfate (Morphine 10 Mg/5 Ml Liquid) 20 mg PO Q4H PRN Tamsulosin HCl (Flomax -) 0.4 mg PO DAILY@0830 [facility] Last Admin: 07/30/17 09:57 Dose: 0.4 mg Warfarin Sodium (Coumadin -) 5 mg PO DAILY@1800 [facility] Last Admin: 07/29/17 19:30 Dose: 5 mg - Objective Vital Signs: Vital Signs Temperature 98.0 F 07/30/17 15:02 Pulse Rate 106 H 07/30/17 15:02 Respiratory Rate 18 07/30/17 15:02 Blood Pressure 125/90 07/30/17 15:02 O2 Sat by Pulse Oximetry (%) 95 01/16/18 21:00 Constitutional: Yes: Calm Eyes: Yes: EOM Intact HENT: Yes: Normocephalic Neck: Yes: Trachea Midline Cardiovascular: Yes: Pulse Irregular, S1, S2 Respiratory: Yes: Rales (SCATTERED BILATERALLY) Gastrointestinal: Yes: Normal Bowel Sounds, Abdomen, Obese Extremities: Yes: Amputation (BILATERAL BKA) Neurological: Yes: Alert Labs: CBC, BMP 07/30/17 07:45 07/30/17 07:45 INR, PTT INR 2.27 (0.82-1.09) H 07/30/17 07:45 - ....Imaging Chest X-ray: Report Reviewed, Image Reviewed EKG: Report Reviewed, Image Reviewed Problem List - Problems (1) Acute hypoxemic respiratory failure Code(s): J96.01 - ACUTE RESPIRATORY FAILURE WITH HYPOXIA (2) Anemia Code(s): D64.9 - ANEMIA, UNSPECIFIED (3) Hx of BKA Code(s): Z89.519 - ACQUIRED ABSENCE OF UNSPECIFIED LEG BELOW KNEE (4) Infected wound Code(s): T14.8XXA - OTHER INJURY OF UNSPECIFIED BODY REGION, INITIAL ENCOUNTER; L08.9 - LOCAL INFECTION OF THE SKIN AND SUBCUTANEOUS TISSUE, UNSP Assessment/Plan IMP ACUTE HYPOXEMIC RESPIRATORY FAILURE IMPROVED S/P SEPSIS PNEUMONIA INFECTED LEFT STUMP AFIB DEMENTIA ANEMIA SUPRA-THERAPEUTIC INR PLAN IV ANTIBIOTICS PER ID INHALED BRONCHODILATORS O2 MONITOR INR,CBC,SHANI LAROSE MD
--- NOTE | 2017-07-30 18:57 | CON.GI ---
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: Alzheimer's, Dementia Cardio/Vascular: Yes: AFIB, CHF, HTN, Hyperlipdemia Psych: Yes: Bipolar, Other Endocrine: Yes: Diabetes Mellitus Additional Medical History: diabetic and PAD associated foot ulcers bilaterally - Past Surgical History Past Surgical History: Yes: None - Alcohol/Substance Use Hx Alcohol Use: No History of Substance Use: reports: None - Smoking History Smoking history: Unknown if ever smoked Have you smoked in the past 12 months: No - Social History Usual Living Arrangement: With Child ADL: Family Assistance History of Recent Travel: No Home Medications - Allergies Allergies/Adverse Reactions: Allergies Allergy/AdvReac Type Severity Reaction Status Date / Time No Known Allergies Allergy Verified 07/23/17 02:48 - Home Medications Home Medications: Ambulatory Orders Acetaminophen [Pain Relief] 650 mg PEG BID 02/24/17 Digoxin [Lanoxin -] 0.125 mg PEG DAILY 05/21/17 Clonazepam [Klonopin] 1 mg PEG Q12H 07/23/17 Morphine Oral Concentrate [Roxanol 20 mg/mL Liquid -] 5 mg PO QID 07/23/17 Multivit-Minerals/Ferrous Fum [Multivitamin Liquid] 5 ml GT DAILY 07/23/17 Tamsulosin HCl [Flomax] 0.4 mg PEG DAILY 07/23/17 Vit A/Vitamin D3/E/Aloe V/Zinc [Periguard Ointment] 100 gm TP DAILY 07/23/17 Albuterol 2.5/Ipratropium 0.5 [Duoneb -] 1 amp NEB RTID amp 07/30/17 Carvedilol [Coreg -] 3.125 mg GT BID tablet 07/30/17 Collagenase Clostridium Hist. [Santyl -] 1 applic TP DAILY tube 07/30/17 Warfarin Na [Coumadin -] 5 mg PO DAILY@1800 tablet 07/30/17 Physical Exam-GI Vital Signs: Vital Signs Temperature 98.0 F 07/30/17 15:02 Pulse Rate 106 H 07/30/17 15:02 Respiratory Rate 18 07/30/17 15:02 Blood Pressure 125/90 07/30/17 15:02 O2 Sat by Pulse Oximetry (%) 95 07/30/17 09:00 Gastrointestinal Inspection: No: Distention ...Palpate: Yes: Soft, Other (the g-tube was replaced with new Fr 18 arndt catheter). No: Firm/Rigid, Guarding, Hepatomegaly, Mass, Pulsatile Mass, Splenomegaly Labs: CBC, BMP 07/30/17 07:45 07/30/17 07:45 INR, PTT INR 2.27 (0.82-1.09) H 07/30/17 07:45 Problem List - Problems (1) Malfunction of gastrostomy tube Assessment/Plan: s/p PEG exchange R> gastrograffin study prior to use , tried to unclog but unsuccessful Code(s): K94.23 - GASTROSTOMY MALFUNCTION
--- NOTE | 2017-07-30 20:34 | PN ---
Progress Note (short form) - Note Progress Note: pt seen earlier today comfortable no distress infected wound no aks planned d/c abx as per i/d today g tube not functioning. physical exam awake/ no distress. Neck supple. Lungs-diminished at bases CVS-S1 and S2 regular Abdomen--soft-- Extremities--dressing in place. Assessment and plan Sepsis Infected left stump--s/p washing. overall prognosis poor. monitor inr. 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 consult for g tube issues discharge planning Active Medications Acetaminophen (Tylenol Oral Solution -) 650 mg PEG BID [facility] Last Admin: 07/30/17 09:58 Dose: 650 mg Albuterol/Ipratropium (Duoneb -) 1 amp NEB RTID [facility] Last Admin: 07/30/17 14:24 Dose: 1 amp Ascorbic Acid (Vitamin C Oral Solution -) 500 mg GT DAILY [facility] Last Admin: 07/30/17 09:59 Dose: 500 mg Aspirin (Asa -) 81 mg PEG DAILY [facility] Last Admin: 07/30/17 09:58 Dose: 81 mg Carvedilol (Coreg -) 3.125 mg GT BID [facility] Last Admin: 07/30/17 09:59 Dose: 3.125 mg Clonazepam (Klonopin -) 0.5 mg PEG Q12H PRN Last Admin: 07/28/17 21:23 Dose: 0.5 mg Collagenase (Santyl -) 1 applic TP DAILY [facility] Last Admin: 07/30/17 10:03 Dose: 1 applic Digoxin (Lanoxin -) 0.125 mg PEG DAILY [facility] Last Admin: 07/30/17 09:57 Dose: 0.125 mg Morphine Sulfate (Morphine 10 Mg/5 Ml Liquid) 20 mg PO Q4H PRN Tamsulosin HCl (Flomax -) 0.4 mg PO DAILY@0830 [facility] Last Admin: 07/30/17 09:57 Dose: 0.4 mg Warfarin Sodium (Coumadin -) 5 mg PO DAILY@1800 [facility] Last Admin: 07/29/17 19:30 Dose: 5 mg CBC, BMP 07/30/17 07:45 07/30/17 07:45 Problem List - Problems (1) Infected wound Code(s): T14.8XXA - OTHER INJURY OF UNSPECIFIED BODY REGION, INITIAL ENCOUNTER; L08.9 - LOCAL INFECTION OF THE SKIN AND SUBCUTANEOUS TISSUE, UNSP (2) Sepsis Code(s): A41.9 - SEPSIS, UNSPECIFIED ORGANISM (3) Atrial fibrillation Code(s): I48.91 - UNSPECIFIED ATRIAL FIBRILLATION Qualifiers: Atrial fibrillation type: persistent Qualified Code(s): I48.1 - Persistent atrial fibrillation (4) Gastrointestinal tube present Code(s): Z93.1 - GASTROSTOMY STATUS
[2017-07-30] MEDS: clonazePAM 0.5 MG TABLET PEG PRN (22:10)
[2017-07-30] MEDS: WARFARIN NA 5 MG TABLET (UD) PO SCH (22:10)
[2017-07-31 05:26] VITALS: TEMP 97.8
[2017-07-31] MEDS: ALBUTEROL SO4 2.5/IPRATROPIUM 0.5 INH SOL 3 ML VIAL.NEB. NEB SCH ×2 (08:20→13:50)
[2017-07-31 09:05] LABS: INR 2.34 (0.82-1.09); PROTHROMBIN TIME (PATIENT) 26.4 SEC (9.98-11.88)
--- NOTE | 2017-07-31 09:44 | DS ---
Physical Examination Vital Signs: Vital Signs Temperature 97.8 F 07/31/17 05:25 Pulse Rate 86 07/31/17 05:25 Respiratory Rate 20 07/31/17 05:25 Blood Pressure 104/57 07/31/17 05:25 O2 Sat by Pulse Oximetry (%) 94 L 07/30/17 20:44 Findings/Remarks: overall condition same g tube changed- functioning afebrile off abx Constitutional: Yes: No Distress Cardiovascular: Yes: Regular Rate and Rhythm Respiratory: Yes: Diminished (at bases) Gastrointestinal: Yes: Soft, Other (s/p peg) Extremities: Yes: Other (dressing +) Edema: Yes Wound/Incision: Yes: Dressing Dry and Intact Labs: CBC, BMP 07/30/17 07:45 07/30/17 07:45 Discharge Summary Reason For Visit: SEVERE SEPSIS UTI LOCAL INFECTION OF WOU Current Active Problems Acute hypoxemic respiratory failure (Acute) Anemia (Acute) Elevated troponin I level (Acute) Gastrointestinal tube present (Acute) Hx of BKA (Acute) Infected wound (Acute) Malfunction of gastrostomy tube (Acute) Pneumonia (Acute) Sepsis (Acute) Severe sepsis (Acute) Supratherapeutic INR (Acute) UTI (urinary tract infection) (Acute) Hospital Course: admitted for long term due to infected right lower extremity wound pt was under hospice care family requested further management vascular intially planned for for aka- then had washing done aka cancelled pt now off abx g tube also changed will send back to long term overall prognosis is poor. Condition: Stable - Instructions Referrals: Remigio Del Toro MD [Primary Care Provider] - Disposition: [facility] - Home Medications Comprehensive Discharge Medication List: Ambulatory Orders Acetaminophen [Pain Relief] 650 mg PEG BID 02/24/17 Digoxin [Lanoxin -] 0.125 mg PEG DAILY 05/21/17 Clonazepam [Klonopin] 1 mg PEG Q12H 07/23/17 Morphine Oral Concentrate [Roxanol 20 mg/mL Liquid -] 5 mg PO QID 07/23/17 Multivit-Minerals/Ferrous Fum [Multivitamin Liquid] 5 ml GT DAILY 07/23/17 Tamsulosin HCl [Flomax] 0.4 mg PEG DAILY 07/23/17 Vit A/Vitamin D3/E/Aloe V/Zinc [Periguard Ointment] 100 gm TP DAILY 07/23/17 Albuterol 2.5/Ipratropium 0.5 [Duoneb -] 1 amp NEB RTID amp 07/30/17 Carvedilol [Coreg -] 3.125 mg GT BID tablet 07/30/17 Collagenase Clostridium Hist. [Santyl -] 1 applic TP DAILY tube 07/30/17 Warfarin Na [Coumadin -] 5 mg PO DAILY@1800 tablet 07/30/17
[2017-07-31] MEDS: CARVEDILOL 3.125 MG TABLET (FP) GT SCH (10:03)
[2017-07-31] MEDS: COLLAGENASE CLOSTRIDIUM HIST. 30 GRAMS TUBE TP SCH (10:03)
[2017-07-31] MEDS: TAMSULOSIN HCL 0.4 MG CAP.ER.24H (FP) PO SCH (10:03)
[2017-07-31] MEDS: ASPIRIN 81 MG CHEWABLE TABLETS PEG SCH (10:03)
[2017-07-31] MEDS: DIGOXIN 0.125 MG TABLET (FP) PEG SCH (10:03)
[2017-07-31 10:04] VITALS: PULSE 92
[2017-07-31] MEDS: ACETAMINOPHEN 650 MG/20.3 ML ORAL SOLUTION (CUPS) PEG SCH (10:04)
[2017-07-31] MEDS: ASCORBIC ACID 500 MG/5 ML UNIT DOSE CUP GT SCH (10:04)
--- NOTE | 2017-07-31 11:24 | PN ---
Progress Note (short form) - Note Progress Note: Appears comfortable. No fevers recorded. No acute events overnight. Intake & Output 07/28/17 07/29/17 07/30/17 07/31/17 23:59 23:59 23:59 23:59 Intake Total 1950 850 120 Output Total 400 550 250 Balance 1550 300 -250 120 Last Vital Signs Temp Pulse Resp BP Pulse Ox 97.8 F 92 H 20 104/57 94 L 07/31/17 05:25 07/31/17 10:03 07/31/17 05:25 07/31/17 05:25 07/30/17 20:44 Laboratory Results - last 24 hr 07/30/17 07/31/17 07:45 08:00 Plt Count 387 MPV 8.3 D Platelet Comment No clumping noted PT with INR 26.40 H INR 2.34 H Gen: breathing nonlabored Heart: RRR Lung: scattered rhonchi Abd: soft, nontender Ext: bilateral BKA Laboratory Results - last 24 hr 07/30/17 07/31/17 07:45 08:00 Plt Count 387 MPV 8.3 D Platelet Comment No clumping noted PT with INR 26.40 H INR 2.34 H A/P Stump Infection UTI r/o Pneumonia Sepsis Atrial Fibrillation Dementia - Local wound care - inhaled bronchodilators - aspiration precautions - D/C planning Dr Qureshi
[2017-07-31 11:51] VITALS: BP 110/60
== END 2017-07-31 14:21 | DRG 349 ==
LOC: JER 02:39 → JERBED 04:47 → UNDOADMIN 06:08 → J6S 15:43
PROVIDERS: ADMIT Internal Medicine; ATTEND Internal Medicine
PROC: 3E10X8Z Irrigation of Skin and Mucous Membranes using Irrigating Substance (ICD-10-PCS; principal; 2017-07-23)
PROC: 30233N1 Transfusion of Nonautologous Red Blood Cells into Peripheral Vein, Percutaneous Approach (ICD-10-PCS; 2017-07-23)
DX: T87.44 Infection of amputation stump, left lower extremity (principal); Y83.9 Surgical procedure, unspecified as the cause of abnormal reaction of the patient, or of later complication, without mention of misadventure at the time of the procedure; A41.9 Sepsis, unspecified organism; D64.9 Anemia, unspecified; I48.1 Persistent atrial fibrillation; I24.9 Acute ischemic heart disease, unspecified; I50.21 Acute systolic (congestive) heart failure; E78.5 Hyperlipidemia, unspecified; E11.9 Type 2 diabetes mellitus without complications; I10 Essential (primary) hypertension; F03.90 Unspecified dementia, unspecified severity, without behavioral disturbance, psychotic disturbance, mood disturbance, and anxiety; K94.23 Gastrostomy malfunction; J18.9 Pneumonia, unspecified organism; J96.01 Acute respiratory failure with hypoxia; I25.10 Atherosclerotic heart disease of native coronary artery without angina pectoris
CPT/HCPCS: 36415; 36430; 71045-TC; 74018-TC; 80053; 80162; 81003; 81015; 82272; 82550; 82803; 83605; 84484; 85025; 85027; 85610; 85730; 86850; 86900; 86901; 86922; 87040; 87070; 87086; 87186; 87205; 93005; 93010; 94640; 94760; 99285-25; G0480; P9038; P9058